=== PATIENT | male | born 1935 | race Caucasian/White ===

== ENCOUNTER 2018-05-22 09:43 | Emergency (ER) | payer MEDICARE, SELFPAY ==
[2018-05-22 09:44] VITALS: BP 144/94; PULSE 68; RESP 20; TEMP 36.5; O2SAT 96; BMI 30.2
[2018-05-22] MEDS: Famotidine 20 MG Tablet 40 MG PO (10:12)
[2018-05-22] MEDS: MethylPREDNISolone 125 MG/2 ML Vial IV (10:12)
[2018-05-22] MEDS: DiphenhydrAMINE 50 MG/ML Syringe 25 MG IV (10:14)
[2018-05-22] MEDS: Triamcinolone Acetonide 40 MG/ML Vial IM (10:15)
--- NOTE | 2018-05-22 10:22 | ED.DCSUM_ITS ---
- ER Visit Summary Date of Service: 05/22/18 Chief Complaint: [] Facial swelling after using acne cream to face for 2 days History of Present Illness: The patient is a 82 M [] presents with facial swelling and eye edema and itching to the head and face for 2 days indicates the other day he used an acne medicine to remove pimple to his forehead the medicine did in fact remove the pimples he developed itching and then edema to his forehead and face, he stopped using the medicine the edema persisted and he came in for evaluation. He used no other medications no other exposures he has had no fever no cough no history of infection MRSA cellulitis, he indicates his face is constantly itching now he has edema to the upper and lower lids bilaterally he has no eye complaints no headache no airway complaints or compromise, he is otherwise been healthy at home with no complaints Physical Examination: [] 144/90 afebrile, General, no distress resting comfortably HEENT has edema to the forehead to the periorbital regions into the cheeks bilaterally he indicates this area is quite itchy there is no signs of infection redness cellulitis MRSA it appears clearly allergic as his lids are swollen, his eyes are normal he has no complaints of eye pain his vision is baseline for him extraocular movements are full, he is able to fully open his eyes and he can see, there is a lot of just puffiness to the eyelids, there is no airway compromise of any kind his oral cavity is unremarkable in this abnormality only involves the areas where he put on this acne ointment The neck is supple no adenopathy Cardiovascular, regular rate and rhythm Lungs, clear bilateral Abdomen, soft nontender Extremities, no clubbing cyanosis or edema Neurologic, awake alert answering questions appropriately moving all 4 extremities Test Results: [] Emergency Department Course and Treatment: [] A long conversation with him and his family with just the case in detail this is the history is as above we discussed obtaining lab test etc. but they deferred that he stated his main concern right now is just itching, at this time will be treated with hydrocortisone 1% ointment to the face he will be given that to go home with given its Thanksgiving, Solu-Medrol, Kenalog IM as a long-acting steroid, Benadryl, he will avoid using this ointment, continue using the Benadryl and Pepcid as needed with hydrocortisone ointment and follow-up with his doctors return for change in symptoms Treatment Plan: [] Disposition: [] Home stable Impression: [] Allergic reaction with facial edema after using acne cream medicine This note was generated with [employer] dictation software. It may contain incorrect words, spelling, and punctuation that were not noted in review of the chart prior to signing ED Disposition - Plan for ED Patient: Chief Complaint: Allergic Reaction
--- NOTE | 2018-05-22 10:22 | ED.DEP ---
ED Disposition - Plan for ED Patient: Chief Complaint: Allergic Reaction Instructions: ED Drug React Allergic, ED Allergic Reaction Local Other Prescriptions: Famotidine [Pepcid] 20 mg PO BID #28 tab Additional Instructions: Continue the Benadryl, use the hydrocortisone 1% to the face twice a day, return for change in symptoms see your doctor in a few days
[2018-05-22 10:45] VITALS: BP 132/92; PULSE 56; RESP 13; TEMP 36.7; O2SAT 96
[2018-05-22] MEDS: Hydrocortisone 2.5% Crm 1 APPLIC TOPICAL (11:16)
== END 2018-05-22 11:26 | disposition home or self-care (01) ==
PROVIDERS: Emergency Provider Emergency Medicine; Family Provider Internal Medicine; PCP Internal Medicine
DX: T50.995A Adverse effect of other drugs, medicaments and biological substances, initial encounter (principal); Y92.89 Other specified places as the place of occurrence of the external cause; R60.0 Localized edema; Y92.9 Unspecified place or not applicable
CPT/HCPCS: 96372; 96374; 96375; 99283; J7030; A4216

== ENCOUNTER 2023-06-21 12:42 | Emergency (ER) | payer MEDICARE, SELFPAY ==
[2023-06-21 12:44] VITALS: BP 163/90; PULSE 87; RESP 18; TEMP 35.9; O2SAT 98; BMI 32.2
--- NOTE | 2023-06-21 13:11 | CT_ITS ---
STUDY: CT BRAIN WITHOUT CONTRAST REASON FOR EXAM: Male, 88 years old. Head injury. RADIATION DOSAGE (If Supplied By Facility): CTDIvol = ( 47.06 ) mGy, DLP = ( 907.97 ) mGycm TECHNIQUE: Transaxial CT imaging of the brain was performed without administration of intravenous contrast material. Individualized dose optimization techniques were used for this CT. COMPARISON: No relevant priors. FINDINGS: Small scalp hematoma overlying the right posterior parieto-occipital bones. Normal calvarium. There is mild cerebral atrophy with widening of the extra-axial spaces and ventricular dilatation. There are areas of decreased attenuation within the white matter tracts of the supratentorial brain, consistent with microvascular disease changes. Normal basal ganglia and thalami. Normal brainstem. Normal cerebellum. There is evidence of an acute subdural hematoma of the cerebellar tentorium as well as the cerebral falx.. There are no findings of an acute ischemic infarction. Atherosclerotic calcification of the cavernous portions of the internal carotid arteries bilaterally. Normal visualized paranasal sinuses. CT/Brain/Head without Contrast IMPRESSION: Chronic involutional changes of the brain. Acute subdural hematoma of the cerebellar tentorium as well as the cerebral falx. Scalp hematoma overlying the right posterior parietal occipital bones. Electronically Signed: Sergei Arita MD at 14:05 EST ,
--- NOTE | 2023-06-21 13:14 | EX.ED.GENINJ ---
HPI History of Present Illness Chief Complaint: Fall Informant: patient Narrative Narrative: 88-year-old male presents to the emergency room chief complaint of head injury. Patient states that he went for a walk outside today. He states that today his legs suddenly got weak and he fell down. He notes that last week his legs also felt weak/unsteady while walking in the same area. States he hit his head on the ground but does not really remember hitting the ground. He notes some tenderness and some blood in the occiput. Unknown last tetanus. He states that earlier this year he was placed on a statin. He states that he had to have the dosage reduced due to muscle aches. About 2 to 3 months ago he had the dosing increased. He wonders if the falls are related to his statin. He denies being on a blood thinner. Tetanus Immunization: Unknown [facility] Medical History (Updated 06/21/23 @ 14:[address] Gordon Hill DO) Hypercholesterolemia Hypertension Home Medications aspirin 81 mg chewable tablet 81 mg PO BID 06/21/23 [History Last Taken 06/21/23] doxazosin 1 mg tablet 1 mg PO DAILY 06/21/23 [History Last Taken 06/20/23] finasteride 5 mg tablet 5 mg PO DAILY 06/21/23 [History Last Taken 06/21/23] lisinopril 20 mg tablet 20 mg PO DAILY 06/21/23 [History Last Taken 06/21/23] melatonin 3 mg capsule 3 mg PO DAILY 06/21/23 [History Last Taken 06/20/23] pravastatin 20 mg tablet 20 mg PO DAILY 06/21/23 [History Last Taken 06/20/23] Allergy/AdvReac Type Severity Reaction Status Date / Time salicylic acid Allergy Swelling Verified 10/17/22 13:45 Social History Smoking Status: Former smoker ROS ROS ED Constitutional Constitutional ED: Denies chills, fever(s) or weight loss Eyes Eyes: Denies change in vision or diplopia ENT ENT ED: Denies ear pain, rhinorrhea or sore throat Cardiovascular Cardiovascular: Denies chest pain, orthopnea, palpitations or racing heartbeat Respiratory/Chest Respiratory/Chest: Denies cough, dyspnea or orthopnea Gastrointestinal Gastrointestinal: Denies abdominal pain, diarrhea, nausea or vomiting Genitourinary Genitourinary ED: Denies dysuria, hematuria or urinary frequency Musculoskeletal Musculoskeletal: Reports arthralgias and myalgias; Denies back pain or neck pain Integumentary Reports Abrasions; Denies abscess or rash Neurologic Neurologic: Reports headache(s); Denies weakness Psychiatric Psychiatric: Denies anxiety, depression, suicidal ideation or suicidal thoughts Endocrine Endocrinology: Denies polydipsia, polyphagia or polyuria Allergic/Immunologic Allergic/Immunologic ED: Denies mouth swelling, tongue swelling or urticaria EXAM Physical Exam Const Vital Signs: 06/21/23 12:44 06/21/23 12:44 06/21/23 14:23 Temperature 96.6 F L Temperature Source Temporal Pulse Rate 87 72 Respiratory Rate 18 18 Respiratory Effort Normal Respiratory Depth Normal Respiratory Pattern Normal Blood Pressure 163/90 H 175/101 H Blood Pressure Mean 114 125 Pulse Ox 98 96 Oxygen Delivery Method Room Air Room Air Room Air 06/21/23 14:38 Temperature Temperature Source Pulse Rate 69 Respiratory Rate 16 Respiratory Effort Respiratory Depth Respiratory Pattern Blood Pressure 160/103 H Blood Pressure Mean 122 Pulse Ox 92 Oxygen Delivery Method Room Air Positive well nourished and well developed General Appearance ED: well developed HEENT Reports normocephalic and moist mucous membranes HEENT Narrative: In the high occipital region is a area of contusion. There is associated skin abrasions. I do not appreciate any laceration. No palpable bony depressions. Eyes PERRL and EOMs intact bilaterally Neck no lymphadenopathy, supple and no JVD Resp normal respiratory effort and clear to auscultation bilaterally Cardio regular rate, regular rhythm and no murmurs GI normal to inspection, nondistended, normoactive bowel sounds and non-tender Palpation: soft Back/Spine no CVA tenderness and normal ROM Extremity normal to inspection General Extremety ED: Negative for edema General Extremity: Negative for edema Neuro oriented x3 and CN's II-XII intact bilaterally Sensorium / Orientation: alert Motor Exam: strength 5/5 throughout Psych mental status grossly normal Mood & Affect: Negative for depressed or tearful Skin no rashes or lesions noted and no wounds MDM MDM MDM Narrative Medical decision making narrative: CT of the brain demonstrates acute bleed along the falx. No significant shift or herniation seen. CT of the cervical spine was negative for fracture. Basic blood work was obtained. The patient was updated. He will need to be transferred to trauma center. The patient sees primary care through [facility]. We have mutually agreed that [facility] is a reasonable choice. He is excepted to the emergency department. We are currently awaiting swab for transportation. He remains hemodynamically and neurologically intact. In fact he has been slightly hypertensive and antihypertensive medications were ordered. History & Record Review Discussion w/independent historian: Patient Lab Data Attestation: I reviewed the patient's lab results. Labs: Laboratory Results - last 24 hr 06/21/23 06/21/23 13:19 13:50 WBC 5.0 RBC 4.99 Hgb 15.0 Hct 45.0 MCV 90.2 MCH 30.1 MCHC 33.3 RDW Std Deviation 41.4 RDW Coeff of Bayron 12.7 Plt Count 109 L MPV 11.0 Immature Gran % (Auto) 0.600 Neut % (Auto) 70.2 H Lymph % (Auto) 14.2 L [place] % (Auto) 14.2 H Eos % (Auto) 0.6 Baso % (Auto) 0.2 Absolute Neuts (auto) 3.5 Absolute Lymphs (auto) 0.71 L Nucleated RBC % 0 PT 14.0 INR 1.1 APTT 25.2 Sodium 142 Potassium 3.5 Chloride 111 H Carbon Dioxide 25.0 Anion Gap 6 BUN 33 H Creatinine 0.81 Estim Creat Clear Calc 70.52 Est GFR (MDRD) Af Amer 115 Est GFR (MDRD) Non-Af 95 BUN/Creatinine Ratio 40.6 H Glucose 115 H Calcium 8.6 Total Bilirubin 0.90 AST 18 ALT 20 Alkaline Phosphatase 69 Total Creatine Kinase 75 Total Protein 6.1 L Albumin 3.3 Globulin 2.8 Albumin/Globulin Ratio 1.2 Radiography Diagnostic Testing: Clinical Impression(s) from Imaging Studies Brain CT 06/21/23 13:11 IMPRESSION: Chronic involutional changes of the brain. Acute subdural hematoma of the cerebellar tentorium as well as the cerebral falx. Scalp hematoma overlying the right posterior parietal occipital bones. Electronically Signed: Sergei Arita MD at 14:05 EST , Cervical Spine CT 06/21/23 13:40 IMPRESSION: Multilevel degenerative changes, as described above. Electronically Signed: Sergei Arita MD at 14:16 EST , Management Discussion w/another healthcare provider: Other ([facility] emergency department Dr. Dumont) Critical Care Time Critical Care Time: Yes Critical care time (excluding procedures): 30-74 minutes (34 min), Including time spent:, Discussing w/Patient &/or Family/Cyber Policy And Strategy Planner, Discussing w/Consultants, Arranging Admission or Transfer and Performing Direct Patient Care at Bedside Discharge Plan Triage Chief Complaint: Fall ED Provider: Gordon Hill Dx/Rx/DC Orders Clinical Impression: Contusion of scalp, Fall, Traumatic intracranial subdural hematoma Prescriptions: No Action doxazosin 1 mg tablet 1 mg PO DAILY finasteride 5 mg tablet 5 mg PO DAILY lisinopril 20 mg tablet 20 mg PO DAILY pravastatin 20 mg tablet 20 mg PO DAILY aspirin 81 mg tablet,chewable 81 mg PO BID melatonin 3 mg capsule 3 mg PO DAILY Primary Care Provider: aVdim Deras Referrals: Vadim Deras MD [Primary Care Provider] - Disposition Disposition: Acute Care Hospital Discharge Location: [facility]
[2023-06-21 13:33] LABS: Absolute Lymphocyte Count 0.71 X10^3/uL (0.83-4.51); Absolute Neutrophil Count 3.5 X10^3/uL (2.0-7.7); Basophil# 0.01 X10^3/uL; Basophil% 0.2 % (0-1); Eosinophil# 0.03 X10^3/uL; Eosinophils% 0.6 % (0-5); Lymphocyte # 0.71 X10^3/ul (0.83-4.51); Lymphocyte % 14.2 % (19-41); Mean Corp Hgb Conc 33.3 g/dL (32-36); Mean Corpuscular Hgb 30.1 pg (27.0-32.0); Mean Corpuscular Volume 90.2 fL (80-94); Monocyte# 0.71 X10^3/uL; Monocyte% 14.2 % (0-10); NRBC Flagged by Analyzer 0 % (0-5); Neutrophil # 3.52 X10^3/uL (2.7-7.7); Neutrophil % 70.2 % (47-70); Platelet Count 109 K/mm3 (150-450); RBC Distribution Width CV 12.7 % (11.6-14.6); RBC Distribution Width SD 41.4 fl (35.1-43.9); Red Blood Count 4.99 M/mm3 (4.6-6.2)
--- NOTE | 2023-06-21 13:40 | CT_ITS ---
STUDY: CT CERVICAL SPINE WITHOUT CONTRAST REASON FOR EXAM: Male, 88 years old. Trauma RADIATION DOSAGE (If Supplied By Facility): CTDIvol = ( 26.09 ) mGy, DLP = ( 623.86 ) mGycm TECHNIQUE: High resolution transaxial imaging was performed without contrast material. Sagittal and coronal images were reconstructed. Individualized dose optimization techniques were used for this CT. COMPARISON: None FINDINGS: Normal craniovertebral junction. There are degenerative changes of the anterior atlantoaxial articulation. Normal odontoid process. Normal cervical lordosis. Multilevel spondylosis. C2-3: Normal endplates. Normal disc height and morphology. Normal central canal and intervertebral neuroforamina. C3-4: Marked degree of disc space narrowing. Facet joint osteoarthritis and hypertrophy on the left side. Uncovertebral arthrosis. Moderate degree of left neural foraminal stenosis. C4-5: Marked degree of disc space narrowing. Spondylosis. Uncovertebral arthrosis. Bilateral neural foraminal stenosis. C5-6: Marked degree of disc space narrowing. Uncovertebral arthrosis. Bilateral neural foraminal stenosis. C6-7: Moderate degree of disc space narrowing. C7-T1: Normal endplates. Normal disc height and morphology. Normal central canal and intervertebral neuroforamina. The patient is known to have a subdural of the cerebellar tentorium. CT/Spine Cervical without Contras IMPRESSION: Multilevel degenerative changes, as described above. Electronically Signed: Sergei Arita MD at 14:16 EST ,
[2023-06-21 13:42] LABS: ALB/GLOB Ratio 1.2 RATIO (0.9-2.4); AST(SGOT) 18 U/L (15-37); Alanine Aminotransfer ALT/SGPT 20 U/L (16-61); Albumin, Serum 3.3 g/dL (3.2-5.0); Alkaline Phosphatase 69 U/L (45-117); Anion Gap 6 (5-15); BUN 33 mg/dL (7-18); BUN/Creat Ratio 40.6 RATIO (10-20); CPK Total, Creatine Kinase 75 U/L (39-308); Calcium,Total 8.6 mg/dL (8.5-10.1); Chloride 111 mmol/L (98-107); Creatinine, Serum 0.81 mg/dL (0.70-1.30); EST Glomerular Filtration Rate 95 mL/min (>60); Est Glom Filt Rate - Afr Amer 115 mL/min (>60); Estimated Creatinine Clearance 70.52 ml/min; Globulin 2.8 g/dL (2.2-4.2); Glucose 115 mg/dL (74-106); Potassium 3.5 mmol/L (3.5-5.1); Protein, Total 6.1 g/dL (6.4-8.2); Sodium Level 142 mmol/L (136-145)
[2023-06-21] MEDS: Diphth,Pertuss(Acell),Tet Vac 0.5 ML Vial IM (14:08)
[2023-06-21 14:14] LABS: International Normalized Ratio 1.1
[2023-06-21 14:16] LABS: Partial Thromboplast Time 25.2 Seconds (24.1-36.2)
[2023-06-21 14:23] VITALS: BP 175/101; PULSE 72; RESP 18; O2SAT 96
[2023-06-21] MEDS: Labetalol (Prefilled) 20 MG/4 ML IV ×2 (14:34→14:48)
[2023-06-21 14:38] VITALS: BP 160/103; PULSE 69; RESP 16; O2SAT 92
[2023-06-21 14:42] VITALS: BP 160/93; PULSE 68; RESP 18; O2SAT 95
[2023-06-21 14:53] VITALS: BP 150/101; PULSE 72; RESP 16; O2SAT 95
--- NOTE | 2023-06-21 14:59 | NURSING ---
Report called to RN at [facility]
[2023-06-21 15:03] VITALS: BP 150/101; PULSE 72; RESP 16; O2SAT 95
== END 2023-06-21 15:09 | disposition short-term general hospital (02) ==
PROVIDERS: Emergency Provider Emergency Medicine; PCP Internal Medicine; Visit Provider Emergency Medicine
DX: S06.5X0A Traumatic subdural hemorrhage without loss of consciousness, initial encounter (principal); Z87.891 Personal history of nicotine dependence; S00.03XA Contusion of scalp, initial encounter; E78.00 Pure hypercholesterolemia, unspecified; I10 Essential (primary) hypertension; Z79.82 Long term (current) use of aspirin; W19.XXXA Unspecified fall, initial encounter; Z23 Encounter for immunization
CPT/HCPCS: 70450; 72125; 80053; 82550; 85025; 85610; 85730; 90715; 99284; A4216

== ENCOUNTER 2023-06-27 18:19 | Inpatient (IN) | payer MEDICARE, SELFPAY ==
--- OUTSIDE RECORDS SUMMARY | 2023-06-27 18:33 | XMS RPT_ITS | CCD ---
Author Name Unknown Address [address] [place] [address] Organization [facility] Care Team Providers Care Food Dehydrator Operator Name Role Phone Silvia RICH, Vadim Barcenas Primary Care Provider [phone] VADIM VEGA Attending Unavailable SILVIA, VADIM Barcenas Primary Care Unavailable SILVIA, VADIM Barcenas Referring Unavailable VEGA, VADIM Barcenas Primary Care Unavailable VEGA, VADIM Barcenas Referring Unavailable VEGA, VADIM Barcenas Primary Care Unavailable SILVIA, VADIM Barcenas Primary Care Unavailable SILVIA, VADIM Barcenas Primary Care Unavailable LUANN BRANCH Attending Unavailable SILVIA, VADIM Barcenas Referring Unavailable VEGA, VADIM Barcenas Primary Care Unavailable VADIM VEGA Attending Unavailable SILVIA, VADIM Barcenas Primary Care Unavailable SILVIA, VADIM Barcenas Referring Unavailable SILVIA, VADIM Barcenas Primary Care Unavailable SU WARE Attending Unavailable SILVIA, VADIM Barcenas Primary Care Unavailable VEGA, VADIM Barcenas Primary Care Unavailable DORIAN VERNON Attending Unavailable SILVIA, VADIM Barcenas Primary Care Unavailable DORIAN VERNON Attending Unavailable SILVIA, VADIM Barcenas Referring Unavailable SILVIA, VADIM Barcenas Primary Care Unavailable Silvia RICH, Vadim Barcenas Primary Care Provider [phone] BAUTISTA SORIA Attending Unavailable JIMMY DENTON Admitting Unavailable SILVIA, VADIM Barcenas Primary Care Unavailable SU WARE Attending Unavailable SU WARE Admitting Unavailable VADIM VEGA Primary Care Unavailable Allergies Allergy Classification Reported Allergen(s) Allergy Type Date of Onset Reaction(s) Facility (18 sources) Clearasil Maximum Strength; Translations: [CLEARASIL MAXIMUM STRENGTH] Drug Intolerance 9 Swelling [facility] Work Phone: Medications Current Medications Medication Drug Class(es) Dates Sig (Normalized) Sig (Original) doxycycline monohydrate 100 mg oral tablet (1 source) Tetracycline-clas s Drug Start: 03-05-2022 End: 03-10-2022 take 1 tablet by mouth twice daily doxycycline monohydrate 100 mg tablet Take 1 tablet by mouth twice daily for 5 days. 10 tablet 0 03/05/2022 03/10/2022 Active Completed/Discontinued Medications Medication Drug Class(es) Dates Sig (Normalized) Sig (Original) doxazosin 1 mg oral tablet (20 sources) alpha-Adrenergic [facility] Start: 01-28-2023 take 1 tablet by mouth once daily doxazosin (CARDURA) 1 mg tablet Indications: Benign prostatic hyperplasia with urinary obstruction Take 1 tablet by mouth once daily. 90 tablet 3 01/28/2023 Active Problems Active Problems Problem Classification Problem Date Documented Date Episodic/Chronic Coagulation and hemorrhagic disorders (19 sources) Platelet count below reference range; Translations: [Thrombocytopenia, unspecified] Onset: 2017 2017 Chronic Complications of surgical procedures or medical care (1 source) Surgical wound finding; Translations: [Disruption of wound, unspecified, initial encounter] Episodic Disorders of lipid metabolism (20 sources) Hyperlipidemia; Translations: [Hyperlipidemia, unspecified] Onset: 08-28-2005 07-10-2018 Chronic Diverticulosis and diverticulitis (16 sources) Diverticulosis of large intestine; Translations: [Diverticulosis of large intestine without perforation or abscess without bleeding] 07-12-2016 Chronic Essential hypertension (20 sources) Essential hypertension; Translations: [Essential (primary) hypertension] Onset: 02-22-2006 06-29-2015 Chronic Hyperplasia of prostate (20 sources) Benign prostatic hypertrophy with outflow obstruction; Translations: [Benign prostatic hyperplasia with lower urinary tract symptoms] Onset: 07-05-2010 01-10-2017 Chronic Immunizations and screening for infectious disease (2 sources) Vaccination needed; Translations: [Encounter for immunization] Episodic Other aftercare (1 source) History of repair of umbilical hernia; Translations: [Encounter for follow-up examination after completed treatment for conditions other than malignant neoplasm] Episodic Other connective tissue disease (1 source) Muscle pain; Translations: [Myalgia, unspecified site] Episodic Other diseases of bladder and urethra (2 sources) Overactive bladder; Translations: [Overactive bladder] Chronic Other eye disorders (1 source) Disorder of eye; Translations: [Unspecified disorder of eye and adnexa] Episodic Other male genital disorders (19 sources) Male erectile dysfunction, unspecified; Translations: [Impotence of organic origin] Onset: 01-16-2018 01-16-2018 Chronic Other nutritional; endocrine; and metabolic disorders (16 sources) Obese class II; Translations: [Obesity, unspecified] Onset: 07-28-2020 07-28-2020 Chronic Other nutritional; endocrine; and metabolic disorders (1 source) Hypoalbuminemia; Translations: [Other disorders of plasma-protein metabolism, not elsewhere classified] 02-15-2023 Chronic Other nutritional; endocrine; and metabolic disorders (1 source) Other disorders of plasma-protein metabolism, not elsewhere classified; Translations: [Hypoalbuminemia] Onset: 02-15-2023 Chronic Other upper respiratory disease (16 sources) Chronic rhinitis; Translations: [Chronic rhinitis] Onset: 07-12-2016 07-12-2016 Chronic Residual codes; unclassified (1 source) History of hernia repair; Translations: [Other specified postprocedural states] 02-28-2023 Episodic Skin and subcutaneous tissue infections (1 source) Infection of skin; Translations: [Local infection of the skin and subcutaneous tissue, unspecified] Episodic Unclassified (1 source) SDH (subdural hematoma) (HCC); Translations: [SDH (subdural hematoma) (HCC)] Onset: 06-21-2023 Past or Other Problems Problem Classification Problem Date Documented Da te Episodic/Chronic Abdominal hernia (2 sources) Recurrent umbilical hernia; Translations: [Umbilical hernia without obstruction or gangrene] Onset: 02-21-2023 01-25-2023 Episodic Genitourinary symptoms and ill-defined conditions (16 sources) Urgent desire to urinate; Translations: [Urgency of urination] Onset: 07-28-2020 07-28-2020 Episodic Other diseases of kidney and ureters (1 source) Other obstructive and reflux uropathy; Translations: [Benign prostatic hyperplasia with urinary obstruction] Onset: 01-10-2017 Episodic Results Test Name Value Interpretation Reference Range Facil ity Vital Signs Date Time Vital Sign Value Performing Clinician Faci lity 02-28-2023 14:20-0400 Body temperature 98.1 [degF] Luann Jose Carlos PA-C Work Phone: [facility] 02-28-2023 14:20-0400 Diastolic blood pressure 84 mm[Hg] Luann Jose Carlos PA-C Work Phone: [facility] 02-28-2023 14:20-0400 Heart rate 84 /min Luann [place]keville PA-C Work Phone: [facility] 02-28-2023 14:20-0400 SaO2% (BldA) [Mass fraction] 95 % Luann Jose Carlos PA-C Work Phone: [facility] 02-28-2023 14:20-0400 Systolic blood pressure 136 mm[Hg] Luann Jose Carlos PA-C Work Phone: [facility] 02-15-2023 08:08-0400 Body weight 97.07 kg Vadim Vega MD Work Phone: [facility] 02-15-2023 08:08-0400 Diastolic blood pressure 82 mm[Hg] Vadim Vega MD Work Phone: [facility] 02-15-2023 08:08-0400 Heart rate 85 /min Vadim Vega MD Work Phone: [facility] 02-15-2023 08:08-0400 Respiratory rate 16 /min Vadim Vega MD Work Phone: [facility] 02-15-2023 08:08-0400 SaO2% (BldA) [Mass fraction] 96 % Vadim Vega MD Work Phone: [facility] 02-15-2023 08:08-0400 Systolic blood pressure 128 mm[Hg] Vadim Vega MD Work Phone: [facility] 01-25-2023 14:58-0400 Body height 182.9 cm Su Ware MD Work Phone: [facility] 01-25-2023 14:58-0400 Body temperature 98.01 [degF] Su Ware MD Work Phone: [facility] 01-25-2023 14:58-0400 Body weight 99.07 kg Su Ware MD Work Phone: [facility] 01-25-2023 14:58-0400 Diastolic blood pressure 80 mm[Hg] Su Ware MD Work Phone: [facility] 01-25-2023 14:58-0400 Heart rate 91 /min Su Ware MD Work Phone: [facility] 01-25-2023 14:58-0400 SaO2% (BldA) [Mass fraction] 96 % Su Ware MD Work Phone: [facility] 01-25-2023 14:58-0400 Systolic blood pressure 132 mm[Hg] Su Ware MD Work Phone: [facility] 01-04-2023 08:10-0400 Body height 182.9 cm Dorian Vernon PA-C Work Phone: [facility] 01-04-2023 08:10-0400 Body temperature 97.81 [degF] Dorian Vernon PA-C Work Phone: [facility] 01-04-2023 08:10-0400 Body weight 98.88 kg Dorian Vernon PA-C Work Phone: [facility] 01-04-2023 08:10-0400 Diastolic blood pressure 88 mm[Hg] Dorian Vernon PA-C Work Phone: [facility] 01-04-2023 08:10-0400 Heart rate 80 /min Dorian Vernon PA-C Work Phone: [facility] 01-04-2023 08:10-0400 Respiratory rate 12 /min Dorian Vernon PA-C Work Phone: [facility] 01-04-2023 08:10-0400 SaO2% (BldA) [Mass fraction] 95 % Dorian Vernon PA-C Work Phone: [facility] 01-04-2023 08:10-0400 Systolic blood pressure 138 mm[Hg] Dorain Vernon PA-C Work Phone: [facility] 09-25-2022 13:26-0400 Body temperature 98.01 [degF] Hyun Moriah [employer].ELASTIC ATTACHER [employer] Work Phone: [facility] 09-25-2022 13:26-0400 Body weight 100.25 kg Hyun Moriah [employer].ELASTIC ATTACHER [employer] Work Phone: [facility] 09-25-2022 13:26-0400 Diastolic blood pressure 84 mm[Hg] Hyun Moriah [employer]EEK [employer] AUT[employer]CH.ELASTIC ATTACHER [employer] Work Phone: [facility] 09-25-2022 13:26-0400 Heart rate 88 /min Hyun Moriah [employer].ELASTIC ATTACHER [employer] Work Phone: [facility] 09-25-2022 13:26-0400 Respiratory rate 18 /min Hyun Moriah [employer].ELASTIC ATTACHER [employer] Work Phone: [facility] 09-25-2022 13:26-0400 SaO2% (BldA) [Mass fraction] 96 % Hyun Moriah [employer].ELASTIC ATTACHER [employer] Work Phone: [facility] 09-25-2022 13:26-0400 Systolic blood pressure 128 mm[Hg] Hyun Moriah [employer].ELASTIC ATTACHER [employer] Work Phone: [facility] 08-31-2022 08:13-0500 Body height 182.9 cm Dorian Vernon PA-C Work Phone: [facility] 08-31-2022 08:13-0500 Body temperature 98.49 [degF] Dorian Vernon PA-C Work Phone: [facility] 08-31-2022 08:13-0500 Body weight 98.88 kg Dorian Vernon PA-C Work Phone: [facility] 08-31-2022 08:13-0500 Diastolic blood pressure 90 mm[Hg] Dorian Vernon PA-C Work Phone: [facility] 08-31-2022 08:13-0500 Heart rate 80 /min Dorian Vernon PA-C Work Phone: [facility] 08-31-2022 08:13-0500 Respiratory rate 14 /min Dorian Vernon PA-C Work Phone: [facility] 08-31-2022 08:13-0500 SaO2% (BldA) [Mass fraction] 95 % Dorian Vernon PA-C Work Phone: [facility] 08-31-2022 08:13-0500 Systolic blood pressure 134 mm[Hg] Dorian Noeloney PA-C Work Phone: [facility] 08-16-2022 08:08-0500 Body height 182.9 cm Vadim Vega MD Work Phone: [facility] 08-16-2022 08:08-0500 Body temperature 97.2 [degF] Vadim Vega MD Work Phone: [facility] 08-16-2022 08:08-0500 Body weight 97.52 kg Vadim Vega MD Work Phone: [facility] 08-16-2022 08:08-0500 Diastolic blood pressure 72 mm[Hg] Vadim Vega MD Work Phone: [facility] 08-16-2022 08:08-0500 Heart rate 72 /min Vadim Vega MD Work Phone: [facility] 08-16-2022 08:08-0500 Respiratory rate 12 /min Vadim Vega MD Work Phone: [facility] 08-16-2022 08:08-0500 Systolic blood pressure 118 mm[Hg] Vadim Vega MD Work Phone: [facility] 05-04-2022 08:28-0400 Body temperature 97.59 [degF] Susan Athy PA-C Work Phone: [facility] 05-04-2022 08:28-0400 Body weight 96.89 kg Susan Athy PA-C Work Phone: [facility] 05-04-2022 08:28-0400 Diastolic blood pressure 78 mm[Hg] Susan Athy PA-C Work Phone: [facility] 05-04-2022 08:28-0400 Heart rate 72 /min Susan Athy PA-C Work Phone: [facility] 05-04-2022 08:28-0400 Respiratory rate 16 /min Susan Athy PA-C Work Phone: [facility] 05-04-2022 08:28-0400 SaO2% (BldA) [Mass fraction] 98 % Susan Athy PA-C Work Phone: [facility] 05-04-2022 08:28-0400 Systolic blood pressure 126 mm[Hg] Susan Athy PA-C Work Phone: [facility] 03-05-2022 09:25-0400 Body temperature 97.2 [degF] Haylie Chin APRN.ELASTIC ATTACHER [employer] Work Phone: [facility] 03-05-2022 09:25-0400 Body weight 97.7 kg Haylie Chin APRN.ELASTIC ATTACHER [employer] Work Phone: [facility] 03-05-2022 09:25-0400 Diastolic blood pressure 90 mm[Hg] Haylie Chin APRN.ELASTIC ATTACHER [employer] Work Phone: [facility] 03-05-2022 09:25-0400 Heart rate 92 /min Haylie Chin APRN.ELASTIC ATTACHER [employer] Work Phone: [facility] 03-05-2022 09:25-0400 Respiratory rate 18 /min Haylie Chin APRN.ELASTIC ATTACHER [employer]ITCH Work Phone: [facility] 03-05-2022 09:25-0400 SaO2% (BldA) [Mass fraction] 94 % Haylie Chin APRN.ELASTIC ATTACHER [employer] Work Phone: [facility] 03-05-2022 09:25-0400 Systolic blood pressure 132 mm[Hg] Haylie Chin APRN.ELASTIC ATTACHER [employer] Work Phone: [facility] 02-08-2022 08:55-0400 Body temperature 97 [degF] Vadim Vega MD Work Phone: [facility] 02-08-2022 08:55-0400 Body weight 94.98 kg Vadim Vega MD Work Phone: [facility] 02-08-2022 08:55-0400 Diastolic blood pressure 68 mm[Hg] Vadim Vega MD Work Phone: [facility] 02-08-2022 08:55-0400 Heart rate 68 /min Vadim Vega MD Work Phone: [facility] 02-08-2022 08:55-0400 Respiratory rate 16 /min Vadim Vega MD Work Phone: [facility] 02-08-2022 08:55-0400 Systolic blood pressure 114 mm[Hg] Vadim Vega MD Work Phone: [facility] 12-25-2021 14:35-0400 Body height 182.9 cm Su Ware MD Work Phone: [facility] 12-25-2021 14:35-0400 Body temperature 98.29 [degF] Su Ware MD Work Phone: [facility] 12-25-2021 14:35-0400 Body weight 96.62 kg Su Ware MD Work Phone: [facility] 12-25-2021 14:35-0400 Diastolic blood pressure 58 mm[Hg] Su Ware MD Work Phone: [facility] 12-25-2021 14:35-0400 Heart rate 91 /min Su Ware MD Work Phone: [facility] 12-25-2021 14:35-0400 SaO2% (BldA) [Mass fraction] 94 % Su Ware MD Work Phone: [facility] 12-25-2021 14:35-0400 Systolic blood pressure 106 mm[Hg] Su Ware MD Work Phone: [facility] 09-29-2021 13:02-0400 Body height 182.9 cm Su Ware MD Work Phone: [facility] 09-29-2021 13:02-0400 Body temperature 98.29 [degF] Su Ware MD Work Phone: [facility] 09-29-2021 13:02-0400 Body weight 97.52 kg Su Ware MD Work Phone: [facility] 09-29-2021 13:02-0400 Diastolic blood pressure 68 mm[Hg] Su Ware MD Work Phone: [facility] 09-29-2021 13:02-0400 Heart rate 81 /min Su Ware MD Work Phone: [facility] 09-29-2021 13:02-0400 SaO2% (BldA) [Mass fraction] 96 % Su Ware MD Work Phone: [facility] 09-29-2021 13:02-0400 Systolic blood pressure 136 mm[Hg] Su Ware MD Work Phone: [facility] Encounters Encounter Date Encounter Type Care Provider Facility Start: 06-21-2023 Evaluation and management of inpatient BATUISTA SORIA Facility:[facility] Start: 04-01-2023 Refill Vadim grubre MD Work Phone: [facility] Procedures Date Procedure Procedure Detail Performing Clinician Start: 06-21-2023 Antibody screen LAMONT SORIA Plan of Treatment Date Care Activity Detail Author Start: 02-08-2026 DIABETES SCREEN DIABETES SCREEN [facility] Start: 02-08-2026 Diabetes Screening Diabetes Screenin g [facility] Start: 08-09-2025 DIABETES SCREEN DIABETES SCREEN [facility] Start: 02-01-2025 DIABETES SCREEN DIABETES SCREEN [facility] Start: 08-07-2024 DIABETES SCREEN DIABETES SCREEN [facility] Start: 01-16-2024 Urine microalbumin profile [facility] Immunizations Immunization Date Immunization Notes Care Provider Pratibha finley 03-25-2023 influenza (aIIV4) vaccine, age 65+ yr, quadrivalent, PF (FLUAD QUAD) Vadim Vega MD Work Phone: [facility] 12-21-2022 COVID-19 vaccine, ag e 12+ yr, bivalent (PFIZER-BIONTECH) Dorian Vernon PA-C Work Phone: [facility] Work Phone: 03-27-2022 influenza, high dose seasonal, preservative-free Vadim Vega MD Work Phone: [facility] Work Phone: 03-12-2022 COVID-19 booster vaccine, age 12+ yr, bivalent (PFIZER-BIONTECH) Susan Corado PA-C Work Phone: [facility] Work Phone: 02-08-2022 pneumococcal (PCV20) vaccine, 20 valent (PREVNAR 20) Vadim Vega MD Work Phone: [facility] Work Phone: 02-08-2022 pneumococcal Conjugate, unspecified formulation Vadim Vega MD Work Phone: [facility] Work Phone: 03-17-2021 influenza, high-dose , quadrivalent vaccine (FLUZONE HIGH DOSE QUADRIVALENT) Su Ware MD Work Phone: [facility] Work Phone: 07-07-2020 COVID-19 vaccine, ag e 12+ yr (PFIZER-BIONTECH - PURPLE TOP) Su Ware MD Work Phone: [facility] Work Phone: 03-30-2020 influenza, high dose seasonal, preservative-free Su Ware MD Work Phone: [facility] Work Phone: 03-30-2019 influenza, high dose seasonal, preservative-free Su Ware MD Work Phone: [facility] Work Phone: 03-23-2018 influenza, high dose seasonal, preservative-free Su Ware MD Work Phone: [facility] Work Phone: 10-05-2017 influenza, injectabl e, quadrivalent, contains preservative Su Ware MD Work Phone: [facility] Work Phone: 04-04-2016 influenza, seasonal, injectable Su Ware MD Work Phone: [facility] 04-14-2015 influenza, high dose seasonal, preservative-free Su Ware MD Work Phone: [facility] 01-13-2015 pneumococcal conjuga te vaccine, 13 valent Su Ware MD Work Phone: [facility] 04-13-2014 influenza, seasonal, injectable Su Ware MD Work Phone: [facility] Work Phone: 03-31-2013 influenza virus vaccine, unspecified formulation Su Ware MD Work Phone: [facility] 06-19-2012 zoster vaccine, live Su child MD Work Phone: [facility] 03-31-2012 influenza virus vaccine, unspecified formulation Su Ware MD Work Phone: [facility] 06-29-2009 novel [id number], preservative-free, injectable Su Ware MD Work Phone: [facility] Work Phone: 08-22-2007 tetanus and diphther ia toxoids, adsorbed, preservative free, for adult use (2 Lf of tetanus toxoid and 2 Lf of diphtheria toxoid) Su Ware MD Work Phone: [facility] Work Phone: Payers Date Payer Category Payer Medicare HU[employer]NA MEDICARE HU[employer]NA MEDICARE PPO [id number] 2021-Present [phone] [address] [place], [place] [id number] PPO [id number] 2021 Medicare HU[employer]NA MEDICARE HU[employer]NA MEDICARE PPO [id number] 2021-Present [phone] [address] [address] [place] [address] PPO [id number] 2021 Medicare [id number] Social History Date Type Detail Facility Start: 02-08-2022 End: 01-04-2023 Tobacco smoking status NHIS Ex-smoker [facility] History of tobacco use Cigarette Smoker C [facility] History of tobacco use Pipe Smoker [facility]: 07-01-1993 History of tobacco use User of smokeless tobacco [facility] Start: 09-29-2021 End: 02-28-2023 Alcohol intake Current drinker of alcohol (finding) [facility] Start: 09-29-2021 End: 01-25-2023 Alcohol intake [facility] Work Phone: Start: 08-11-2021 End: 08-16-2022 History SDOH Alcohol Frequency 3 [facility] Start: 08-11-2021 End: 08-16-2022 History SDOH Alcohol Std Drinks 1 [facility] Start: 07-28-2020 History SDOH Alcohol Comment or less. [facility] Start: 08-11-2021 End: 08-16-2022 History SDOH Social Connections Phone 5 [facility] Start: 08-11-2021 End: 08-16-2022 History SDOH Social Connections Living 7 [facility] Start: 08-11-2021 End: 08-16-2022 History SDOH Physical Activity DPW 2 [facility] Start: 08-11-2021 End: 08-16-2022 History SDOH Financial 4 [facility] Start: 1935 Sex Assigned At Not on file C [facility] Start: 09-19-2021 End: 02-08-2022 Exposure to SARS-CoV-2 (event) Not sure [facility] History of tobacco use Current smoker [facility] Work Phone: Start: 02-08-2022 Tobacco use and exposure Forme r smokeless tobacco user [facility] Work Phone: Start: 02-08-2022 Tobacco Comment Quit 1993 (cig x 5 years and pipe x 20 years) [facility] Start: 04-24-2022 End: 05-04-2022 Exposure to SARS-CoV-2 (event) Yes [facility] Start: 01-04-2023 Tobacco use and exposure Smoke less tobacco non-user [facility] Start: 08-16-2022 End: 01-25-2023 Social connection and isolation panel [facility] Work Phone: Are you now , , , , never or living with a partner? Never [facility] Work Phone: How often to you hav e a drink containing alcohol? 2-4 times a month [facility] Work Phone: How many standard dr inks containing alcohol do you have on a typical day? 1 or 2 [facility] Work Phone: How often do you hav e 6 or more drinks on 1 occasion? Never [facility] Work Phone: How hard is it for y ou to pay for the very basics like food, housing, medical care, and heating Not very hard [facility] Work Phone: Adult Depression Screening Assessment 0 [facility] Work Phone: Do you feel stress - tense, restless, nervous, or anxious, or unable to sleep at night because your mind is troubled all the time - these days [OSQ] Not at all [facility] Work Phone: Clinical Notes 08-22-2007 to 06-26-2023 Telephone Encounter - Ilana Burr RN - 04/01/2023 10:42 AM EDTPatient Luann De La Garza PA-C - 02/28/2023 2:29 PM Vadim Ty MD - 02/15/2023 8:33 AM EDTPatient Instructions Note Date & Type Note Facility 06-26-2023 Note HNO ID: [id number] Author: Michelle Andino APRN.ELASTIC ATTACHER [employer] Service: General Surgery Author Type: Nurse Practitioner Type: Progress Notes Filed: 06/26/2023 8:31 AM Note Text: Trauma Surgery Progress Note SERVICE DATE: 06/26/2023 Trauma Service Pager: For questions or concerns Mon-Sat 6a-5p please page [phone]. After 5pm and on Weekends and Holidays, please page [phone] if in ICU or [phone] if on RNF. SUBJECTIVE: No acute overnight events. Patient inquiring when he will be discharged to SNF. Discussed that care management is actively working on his case and the he requires pre-cert. On assessment, patient alert and oriented x 3, DEY. No focal deficits. Denies headache, dizziness, lightheadedness, pain/discomfort. OBJECTIVE: Vitals: Temp (24hrs), Av.7 ?C (98 ?F), Min:36.4 ?C (97.5 ?F), Max:37 ?C (98.6 ?F) BP 171/101 Pulse 68 Temp 36.7 ?C (98.1 ?F) (Oral) Resp 16 Ht 182.9 cm (6' 0.01 ) Wt 96.3 kg (212 lb 4.9 oz) SpO2 92% BMI 28.79 kg/m? O2 Therapy: Room Air IANDO: Date 06/25/23 07 - 06/26/23 0659 06/26/23699 - 06/27/23 0659 Shift [id number] 7348-5165 5130-0777 24 Hour Total 0175-4263 1585-0209 5284-6756 24 Hour Total INTAKE PO 320 320 PO 320 320 Shift Total 320 320 OUTPUT Urine 275 50 175 500 Void (ml) 275 50 175 500 Urine Incontinence/Not Saved 1 x 2 x 1 x 4 x Urine Not Saved. 2 x 2 x # of BMs Number of BMs 1 x 1 x Shift Total 275 50 175 500 Weight (kg) 98.3 98.3 96.3 96.3 96.3 96.3 96.3 96.3 MEDICATIONS: Current Facility-Administered Medications Medication Dose Route Frequency doxazosin 1 mg tab(s) (CARDURA) 1 mg ORAL DAILY lisinopril 20 mg tab(s) (ZESTRIL) 20 mg ORAL DAILY finasteride 5 mg tab(s) (PROSCAR) 5 mg ORAL DAILY heparin 5,000 Units injection 5,000 Units SUBCUTANEOUS q 8 H calcium-cholecalciferol (D3) 2 tablet tab(s) (OSCAL+D 250) 2 tablet ORAL BID senna 17.2 mg tab(s) (SENOKOT) 17.2 mg ORAL AT BEDTIME oxyCODONE IR 5 mg tab(s) (ROXICODONE) 5 mg ORAL q 6 H PRN NaCl 0.9% iv flush bag 20 mL INTRAVENOUS PRN levETIRAcetam 500 mg tab(s) (KEPPRA) 500 mg ORAL BID pravastatin 20 mg tab(s) (PRAVACHOL) 20 mg ORAL AT BEDTIME acetaminophen 1,000 mg tab(s) (TYLENOL) 1,000 mg ORAL/FEEDING TUBE q 6 H Labs: Recent Labs 06/26/23 0222 06/25/23 0149 NA 140 141 K 3.9 3.6* CHLOR 107* 106* CO2 25 26 BUN 28* 30* CREAT 0.98 0.95 GLUC 86 84 ANION 8* 9 CA 9.2 9.2 WBC 4.95 6.73 HB 13.4 14.5 HCT 39.3 43.2 PLT 108* 109* PHYSICAL EXAM: Genl: Appears age appropriate. No acute distress. Resting comfortably. Head/Face: Normocephalic. Atraumatic Eyes: EOMI. PERRLA. Sclera not icteric, not injected Resp: Lungs CTAB. No wheezes, rales or rhonchi. Respiratory status stable on RA. CVS: RRR as above. 2+ RA, DP, PT pulses bilaterally. GI: Abdomen is soft, non-tender, non-distended. No guarding or peritoneal signs. MSK: No gross deformities. No clubbing, cyanosis or edema. Normal AROM x 4. LLE in JILL with walker boot in place. Skin: Warm and dry. Not jaundiced. Neuro: AANDOx3. Strength and sensation grossly intact in all extremities. DEY. GCS15. Psych: Normal mood. Normal affect. Appropriate insight into current situation. ASSESSMENT AND PLAN: Assessment Active Hospital Problems Diagnosis Date Noted Subdural hematoma (HCC) 06/21/2023 Closed fracture of left ankle 06/23/2023 Fall 06/22/2023 Thrombocytopenia, unspecified (HCC) 2017 Essential hypertension 02/22/2006 Assessment: 88-year old male s/p GLF on ASA on 06/21/2023 Imaging performed: 06/21/2023 - CT HN, CXR, PXR, repeat CTH, XR L ankle 06/22/2023 - repeat CTH, XR L ankle 06/23/2023 - XR L ankle, repeat CTH Traumatic Injuries: Left parafalcine and tentorial SDH Left ankle fracture with syndesmotic instability Operations/Procedures: 1. 06/23/2023 - ORIF left bimalleolar ankle fracture; open reduction fixation left syndesmosis Care Plan: SDH Neurosurgery consulted (signed-off) DDAVP administered for ASA reversal upon arrival to ED Repeat CT Brain 06/23/2023 stable No plans for operative management Neuro checks every 4 hours Keppra BID x 7 days (06/21-06/28) SQ Heparin started 06/24 Will need 2-week outpatient follow-up with neurosurgery Left ankle fracture with syndesmosis injury Ortho consulted (signed-off) POD#3 s/p ORIF as above NWB LLE in walker boot Soft dressing to LLE Multimodal pain control PT/OT Outpatient follow-up with Dr. Valdez in 2 weeks Continue home medications Current diet order: DIET REGULAR Pain regimen: Scheduled Tylenol; PRN Oxycodone Bowel regimen: Senna Labs: Daily BMP, CBC Medically stable for discharge to SNF PPX: DVT: SQ Heparin 5000 units TID; SCD RLE; mobilize Ulcer: NA Vit D level if > 65 yo: 37.0 Consulted Services: Trauma SICU Neurosurgery Ortho PT/OT Dispo Planning: PT/OT recommends SNF. Case management following. Patient is medically stable for disc (more content not included)... [facility] 06-25-2023 Note HNO ID: [id number] Author: Sultana Nolasco RN Service: Care Management Author Type: Registered Nurse Type: Care Mgt Initial Assessment Filed: 06/25/2023 3:30 PM Note Text: CARE MANAGEMENT: ASSESSMENT AND DISCHARGE PLAN SERVICE DATE: June 25, 2023 SERVICE TIME: 3:26 PM PCP: Vadim Vega MD Primary Contact: Extended Emergency Contact Information Primary Emergency Contact: Gerri Barnes Relation: Sister Admission Status: Inpatient Insurance Provider: [employer] MEDICARE PPO Discharge Planning requested by: Per Department Practice Potential Transition Plans Retirement Facility/Intermediate Care Facility Advance Directives Current Advance Directive: Health Care Power of Inspector Fuel Hose In Chart: Yes Up To Date and Valid: Yes Current Living Arrangements and Support Lives with: Alone Type of Residence: Private Residence (House) Support: Family members How do you manage to accomplish the following: Independent: Ambulation;Bathe/Shower;Dress;Meal s/Meal Prep;Going to the bathroom;Medication Management;Transportation to appointments/community Current Services/Equipment Current Post-Acute Service(s): None Discharge Planning Patient Goal(s): Be able to go home, General wellness, Increase strength [place] of Choice Explained: [place] of Choice Given: Yes Level of Care Discussed: Retirement Facility Are you interested in bedside delivery of your medications? No Discharge Planning Participant(s): Patient;Other person(s) Name/Relationship: Sister/HCPGerri JONES, by phone Patient/Family Comments: Caregiver Assessment: Caregiver is ready, willing and able to meet the patient's needs as recommended by the inter-professional team: No Transport at Discharge: Transportation Arrangements: To Be Determined Needs Prior to Discharge: Needs Prior to Discharge: Accepting Facility;Bed Availability;Insurance Authorization Post-Acute Discharge Plan: Met with pt in room and he states he lives at home alone. His sister, Gerri is his HCPOA and she assisted by phone with SNF choices today. SNF Choice list given after receiving phone call that pt is ready for D/C. Bed availability has been obtained, pt will also need Precert. Pt did say that his insurance will change on July 01, 2023. He has his card and CM made copy of the new card showing [employer] starting on 07/01/23. SIGNATURE: Sultana Nolasco RN PATIENT NAME: Deniz Kumar DATE: June 25, 2023 TIME: 3:26 PM CONTACT #: [phone] [facility] 06-25-2023 Note HNO ID: [id number] Author: Leah Mcgraw APRN.CNP Service: General Surgery Author Type: Nurse Practitioner Type: Progress Notes Filed: 06/25/2023 8:06 AM Note Text: Trauma Surgery Progress Note SERVICE DATE: 06/25/2023 Trauma Service Pager: For questions or concerns Mon-Fri 6a-5p please page [phone]. After 5pm and on Weekends and Holidays, please page [phone] if in ICU or [phone] if on RNF. SUBJECTIVE: NAEON. Patient reports pain is controlled. He is asking when he can be discharged to SNF - discussed that associate director career services will see him today and begin process, but that it may take several days. Patient without focal complaints apart from wanting to be discharged. Tolerating diet. OBJECTIVE: Vitals: Temp (24hrs), Av.6 ?C (97.9 ?F), Min:36.4 ?C (97.5 ?F), Max:36.9 ?C (98.4 ?F) BP 156/91 Pulse (!) 58 Temp 36.6 ?C (97.8 ?F) (Oral) Resp 18 Ht 182.9 cm (6' 0.01 ) Wt 98.3 kg (216 lb 11.4 oz) SpO2 93% BMI 29.38 kg/m? O2 Therapy: Room Air IANDO: Date 06/24/23 07 - 06/25/23 0659 06/25/23 0700 - 06/26/23 0659 Shift 2957-1976 3523-6308 8407-4944 24 Hour Total 5635-2478 1823-3185 8946-6480 24 Hour Total INTAKE Shift Total OUTPUT Urine 150 150 Void (ml) 150 150 Urine Not Saved. 1 x 1 x # of BMs Number of BMs 1 x 1 x Shift Total 150 150 Weight (kg) 98.3 98.3 98.3 98.3 98.3 98.3 98.3 98.3 MEDICATIONS: Current Facility-Administered Medications Medication Dose Route Frequency heparin 5,000 Units injection 5,000 Units SUBCUTANEOUS q 8 H calcium-cholecalciferol (D3) 2 tablet tab(s) (OSCAL+D 250) 2 tablet ORAL BID senna 17.2 mg tab(s) (SENOKOT) 17.2 mg ORAL AT BEDTIME oxyCODONE IR 5 mg tab(s) (ROXICODONE) 5 mg ORAL q 6 H PRN NaCl 0.9% iv flush bag 20 mL INTRAVENOUS PRN levETIRAcetam 500 mg tab(s) (KEPPRA) 500 mg ORAL BID pravastatin 20 mg tab(s) (PRAVACHOL) 20 mg ORAL AT BEDTIME acetaminophen 1,000 mg tab(s) (TYLENOL) 1,000 mg ORAL/FEEDING TUBE q 6 H Labs: Recent Labs 06/25/23 0149 12/25/23 0135 NA 141 140 K 3.6* 3.8 CHLOR 106* 105 CO2 26 27 BUN 30* 33* CREAT 0.95 0.91 GLUC 84 111* ANION 9 8* CA 9.2 9.0 WBC 6.73 8.35 HB 14.5 14.0 HCT 43.2 41.5 PLT 109* 96* PHYSICAL EXAM: Genl: Appears age appropriate. No acute distress. Resting comfortably. Head/Face: Normocephalic. Atraumatic Eyes: EOMI. PERRLA. Sclera not icteric, not injected Resp: Lungs CTAB. No wheezes, rales or rhonchi. Respiratory status stable on RA. CVS: RRR as above. 2+ RA, DP, PT pulses bilaterally. GI: Abdomen is soft, non-tender, non-distended. No guarding or peritoneal signs. MSK: No gross deformities. No clubbing, cyanosis or edema. Normal AROM x 4. RLE in JILL with walker boot in place. Skin: Warm and dry. Not jaundiced. Neuro: AANDOx3. Strength and sensation grossly intact in all extremities. DEY. GCS15. Psych: Normal mood. Normal affect. Appropriate insight into current situation. ASSESSMENT AND PLAN: Assessment Active Hospital Problems Diagnosis Date Noted Subdural hematoma (HCC) 06/21/2023 Closed fracture of left ankle 06/23/2023 Fall 06/22/2023 Thrombocytopenia, unspecified (HCC) 2017 Essential hypertension 02/22/2006 Assessment: 88 year old male s/p GLF on ASA on 06/21/2023 Imaging performed: 06/21/2023 - CT HN, CXR, PXR, repeat CTH, XR L ankle 06/22/2023 - repeat CTH, XR L ankle 06/23/2023 - XR L ankle, repeat CTH Traumatic Injuries: Left parafalcine and tentorial SDH Left ankle fracture with syndesmotic instability Operations/Procedures: 1. 06/23/2023 - ORIF left bimalleolar ankle fracture; open reduction fixation left syndesmosis Care Plan: SDH Neurosurgery consulted DDAVP administered for ASA reversal upon arrival Repeat CT Brain 06/23/2023 stable No plans for operative management Continue q4hr neuro checks Keppra BID x 7 days Hold chemo ppx for now Will need 2-week outpatient follow-up with neurosurgery Left ankle fracture with syndesmosis injury Ortho consulted POD#2 s/p ORIF as above NWB RLE in walker boot Soft dressing to LLE Pain control PT/OT Outpatient follow-up with Dr. Valdez in 2 weeks Continue home medications Current diet order: DIET REGULAR Pain regimen: Scheduled Tylenol; prn oxycodone Bowel regimen: Senna Labs: As above Medically stable for discharge to SNF PPX: DVT: Chemo ppx held in lieu of SDH; SCD RLE; mobilize Ulcer: NA Vit D level if > 65 yo: WNL Consulted Services: Trauma SICU Neurosurgery Ortho PT/OT Dispo Planning: PT/OT recs SNF. Case management following. Patient is medically stable for discharge. Incidentals: None Follow Up Needs: Neurosurgery - 2 weeks Ortho - Dr. Valdez - 2 weeks Discussed with attending: Dr. Garrett Portions of text from this note were copied from prior patient encounter. All relevant information was updated to reflect most-recent clinical decision-making and plan of care June 25, 2023. SIGNAT (more content not included)... [facility] 06-25-2023 Note HNO ID: [id number] Author: Uche Vasquez MD Service: Orthopaedic Surgery Author Type: Resident Type: Progress Notes Filed: 06/25/2023 6:59 AM Note Text: Orthopaedic Surgery Inpatient Progress Note Assessment Deniz Kumar is a 88 year old male who is POD #2 status-post ORIF left ankle. Plan - Trauma primary - Pain control - Abx: Ancef 2g q8hrs x2 doses - Weight bearing status: NWB LLE - Walking boot to LLE - Diet: regular - Dressing: soft dressing - Rest, ice, elevate LLE - DVT ppx: per trauma - Drain: none - Imaging: post op XR of left ankle in PACU - completed - PT/OT - recommending SNF - Dispo: ok for discharge from orthopedic standpoint - Follow up with Dr. Valdez in 2 weeks. Orthopedics to sign off at this time. Please page [phone] with any questions or concerns Subjective No acute events overnight. Pain controlled with medication. No fevers, chills, chest pain, or shortness of breath. No new complaints. Physical Examination Vitals BP 156/91 Pulse (!) 58 Temp 36.6 ?C (97.8 ?F) (Oral) Resp 18 Ht 182.9 cm (6' 0.01 ) Wt 98.3 kg (216 lb 11.4 oz) SpO2 93% BMI 29.38 kg/m? General Alert. No acute distress. Cooperative with interview. Left Lower Extremity Soft dressing to LLE - clean, dry, intact Alignment normal. No gross deformities. No swelling, ecchymosis, or erythema. No open wounds or lacerations. SILT [place]/Sa/DP/SP/T. Motor intact EHL/DF/PF. DP/PT pulses palpable; BCR all digits. Labs Recent Labs 06/25/23 0149 06/24/23 0135 NA 141 140 K 3.6* 3.8 CHLOR 106* 105 CO2 26 27 BUN 30* 33* CREAT 0.95 0.91 GLUC 84 111* ANION 9 8* CA 9.2 9.0 WBC 6.73 8.35 HB 14.5 14.0 HCT 43.2 41.5 PLT 109* 96* Imaging No new imaging Uche Vasquez MD Orthopaedic Surgery - PGY 3 6:51 AM 06/25/2023 Pager #[phone] INPATIENT ATTENDING: Bonifacio Chaudhari MD, Urgent High-Risk Geriatric Patient Vulnerabilities: Age >85 and Impaired Mobility Diet: DIET REGULAR Code Status: Full Code Recommendations: Cognition: No Cognitive Impairment bCAM Score (Calc): Negative Delirium Screen Confusion Assessment Method (CAM - ICU Score): Negative Geriatric Consult (Age over 85 or impaired cognition):Consult to Commercial Counsel Palliative Care/Hospice: Consult not required Rehab/Therapy: PT/OT Recommendations: PT: Recommended Discharge Disposition: Subacute/SNF OT: Recommended Discharge Disposition: Subacute/SNF Swallow: Swallow Screening Result - Step 2: PASSED Swallow Screen - Patient Able To Swallow 3 Ounce Cup of Water Without Exhibiting Signs Of Aspiration Speech Recommendations: Speech: Speech Diet: Nutrition: Consult not required Nutrition Recommendations: MST: Total MST Score (Calculated): 0 Instrumental Music Teacher: Pharmacy: Consult not needed Social Work: NA Anticipated Discharge Disposition: Retirement Facility [facility] 06-24-2023 Note HNO ID: [id number] Author: Romeo Sanchez PA-C Service: General Surgery Author Type: Physician Architectural Drafting Instructor Type: Progress Notes Filed: 06/24/2023 8:41 AM Note Text: Trauma Surgery Progress Note SERVICE DATE: 06/24/2023 Trauma Service Pager: For questions or concerns Mon-Fri 6a-5p please page [phone]. After 5pm and on Weekends and Holidays, please page [phone] if in ICU or [phone] if on RNF. SUBJECTIVE: NAEON. Patient sitting up eating breakfast upon my arrival. No new focal concerns at this time. Denies COV[place] or visual changes. LLE pain controlled. Inquiring about discharge timing. OBJECTIVE: Vitals: Temp (24hrs), Av.7 ?C (98.1 ?F), Min:36.5 ?C (97.7 ?F), Max:37.1 ?C (98.7 ?F) BP 150/80 Pulse (!) 56 Temp 36.6 ?C (97.9 ?F) (Oral) Resp 18 Ht 182.9 cm (6' 0.01 ) Wt 98.3 kg (216 lb 11.4 oz) SpO2 94% BMI 29.38 kg/m? O2 Therapy: Room Air IANDO: Date 06/23/23699 - 06/24/23 0659 06/24/23 07 - 06/25/23 0659 Shift 9269-5429 5508-7104 6127-2405 24 Hour Total 5608-9010 3305-2476 2572-5396 24 Hour Total INTAKE IV 700 100 100 900 Volume (mL) (ceFAZolin iv piggyback 2 g in D5W (iso-osmotic) 100 mL (ANCEF)) 100 100 200 Volume (mL) (ceFAZolin iv piggyback 2 g in D5W (iso-osmotic) 100 mL (ANCEF)) 100 100 Volume (mL) (lactated ringers iv infusion) 600 600 Shift Total 700 100 100 900 OUTPUT Urine 200 200 350 750 Void (ml) 200 200 350 750 Urine Not Saved. 1 x 1 x Blood 15 15 Estimated Blood loss 15 15 Shift Total 215 200 350 765 Weight (kg) 98.1 98.1 98.1 98.1 98.3 98.3 98.3 98.3 MEDICATIONS: Current Facility-Administered Medications Medication Dose Route Frequency calcium-cholecalciferol (D3) 2 tablet tab(s) (OSCAL+D 250) 2 tablet ORAL BID senna 17.2 mg tab(s) (SENOKOT) 17.2 mg ORAL AT BEDTIME oxyCODONE IR 5 mg tab(s) (ROXICODONE) 5 mg ORAL q 6 H PRN NaCl 0.9% iv flush bag 20 mL INTRAVENOUS PRN levETIRAcetam 500 mg tab(s) (KEPPRA) 500 mg ORAL BID pravastatin 20 mg tab(s) (PRAVACHOL) 20 mg ORAL AT BEDTIME acetaminophen 1,000 mg tab(s) (TYLENOL) 1,000 mg ORAL/FEEDING TUBE q 6 H Labs: Recent Labs 06/24/23 0135 06/23/23 0453 06/22/23 0423 06/21/23 1619 NA 140 141 140 141 K 3.8 3.9 3.8 3.6* CHLOR 105 108* 106* 109* CO2 27 25 25 23 BUN 33* 37* 35* 24 CREAT 0.91 0.89 0.84 0.74 GLUC 111* 99 121* 112* ANION 8* 8* 9 9 CA 9.0 8.9 8.6 8.6 MG -- -- 1.8 -- P -- -- 3.2 -- ALB -- -- -- 3.4* AST -- -- -- 23 ALT -- -- -- 15 ALKPHOS -- -- -- 66 TBILI -- -- -- 0.8 WBC 8.35 7.13 6.20 7.52 HB 14.0 13.7 13.1 15.5 HCT 41.5 40.3 38.2* 45.3 PLT 96* 99* 106* 118* INR -- -- -- 1.1 PHYSICAL EXAM: Genl: Appears age appropriate. No acute distress. Resting comfortably. Head/Face: Normocephalic. Atraumatic Eyes: EOMI. PERRLA. Sclera not icteric, not injected Resp: Lungs CTAB. No wheezes, rales or rhonchi. Respiratory status stable on RA. CVS: RRR as above. 2+ RA, DP, PT pulses bilaterally. GI: Abdomen is soft, non-tender, non-distended. No guarding or peritoneal signs. MSK: No gross deformities. No clubbing, cyanosis or edema. Normal AROM x 4. RLE in JILL with walker boot in place. Skin: Warm and dry. Not jaundiced. Neuro: AANDOx3. Strength and sensation grossly intact in all extremities. DEY. GCS15. Psych: Normal mood. Normal affect. Appropriate insight into current situation. ASSESSMENT AND PLAN: Assessment Active Hospital Problems Diagnosis Date Noted Subdural hematoma (HCC) 06/21/2023 Closed fracture of left ankle 06/23/2023 Fall 06/22/2023 Thrombocytopenia, unspecified (HCC) 2017 Essential hypertension 02/22/2006 Assessment: 88 year old male s/p GLF on ASA on 06/21/2023 Imaging performed: 06/21/2023 - CT HN, CXR, PXR, repeat CTH, XR L ankle 06/22/2023 - repeat CTH, XR L ankle 06/23/2023 - XR L ankle, repeat CTH Traumatic Injuries: Left parafalcine and tentorial SDH Left ankle fracture with syndesmotic instability Operations/Procedures: 1. 06/23/2023 - ORIF left bimalleolar ankle fracture; open reduction fixation left syndesmosis Care Plan: SDH Neurosurgery consulted DDAVP administered for ASA reversal upon arrival Repeat CT Brain 06/23/2023 stable No plans for operative management Continue q4hr neuro checks Keppra BID x 7 days Hold chemo ppx for now Will need 2-week outpatient follow-up with neurosurgery Left ankle fracture with syndesmosis injury Ortho consulted POD#1 s/p ORIF as above NWB RLE in walker boot Soft dressing to LLE Pain control PT/OT Outpatient follow-up with Dr. Valdez in 2 weeks Home medications to be reviewed and reordered accordingly. Current diet order: DIET REGULAR Pain regimen: Scheduled Tylenol; prn oxycodone Bowel regimen: Senna Labs: As above PPX: DVT: Chemo ppx held in lieu of SDH; SCD RLE; mobilize Ulcer: NA Vit D level if > 65 yo: pending Consulted Services: Trauma SICU Neurosurgery Ortho PT/OT Dispo Planning: (more content not included)... [facility] 06-24-2023 Note HNO ID: [id number] Author: Bonifacio Valdez MD Service: Orthopaedic Surgery Author Type: Physician Type: Progress Notes Filed: 06/24/2023 10:11 AM Note Text: Orthopaedic Surgery Inpatient Progress Note Assessment Deniz Kumar is a 88 year old male who is POD #1 status-post ORIF left ankle. Plan - Trauma primary - Pain control - Abx: Ancef 2g q8hrs x2 doses - Weight bearing status: NWB LLE - Walking boot to LLE - Diet: regular - Dressing: soft dressing - Rest, ice, elevate LLE - DVT ppx: per trauma - Drain: none - Imaging: post op XR of left ankle in PACU - completed - PT/OT - appreciate evaluation and recommendations - Dispo: ok for discharge from orthopedic standpoint - Follow up with Dr. Valdez in 2 weeks Subjective No acute events overnight. Pain slightly greater than yesterday, but well controlled. No new numbness or tingling. No fevers, chills, chest pain, or shortness of breath. No new complaints. Physical Examination Vitals BP 147/79 Pulse (!) 55 Temp 36.5 ?C (97.7 ?F) (Oral) Resp 16 Ht 182.9 cm (6' 0.01 ) Wt 98.1 kg (216 lb 4.3 oz) SpO2 94% BMI 29.33 kg/m? General Alert. No acute distress. Cooperative with interview. Left Lower Extremity Soft dressing to LLE - clean, dry, intact Alignment normal. No gross deformities. No swelling, ecchymosis, or erythema. No open wounds or lacerations. SILT [place]/Sa/DP/SP/T. Motor intact EHL/DF/PF. DP/PT pulses palpable; BCR all digits. Labs Recent Labs 06/24/23 0135 06/23/23 0453 06/22/23 0423 06/21/23 1619 NA 140 141 140 141 K 3.8 3.9 3.8 3.6* CHLOR 105 108* 106* 109* CO2 27 25 25 23 BUN 33* 37* 35* 24 CREAT 0.91 0.89 0.84 0.74 GLUC 111* 99 121* 112* ANION 8* 8* 9 9 CA 9.0 8.9 8.6 8.6 MG -- -- 1.8 -- P -- -- 3.2 -- ALB -- -- -- 3.4* AST -- -- -- 23 ALT -- -- -- 15 ALKPHOS -- -- -- 66 TBILI -- -- -- 0.8 WBC 8.35 7.13 6.20 7.52 HB 14.0 13.7 13.1 15.5 HCT 41.5 40.3 38.2* 45.3 PLT 96* 99* 106* 118* INR -- -- -- 1.1 Imaging Post op XR of left ankle show stable placement of hardware s/p ORIF Uche Vasquez MD Orthopaedic Surgery - PGY 3 5:53 AM 06/24/2023 Pager #[phone] INPATIENT ATTENDING: Bonifacio Chaudhari MD, Urgent High-Risk Geriatric Patient Vulnerabilities: Age >85 and Impaired Mobility Diet: DIET REGULAR Code Status: Full Code Recommendations: Cognition: No Cognitive Impairment bCAM Score (Calc): Negative Delirium Screen Confusion Assessment Method (CAM - ICU Score): Negative Geriatric Consult (Age over 85 or impaired cognition):Consult to Commercial Counsel Palliative Care/Hospice: Consult not required Rehab/Therapy: PT/OT Recommendations: PT: OT: Swallow: Swallow Screening Result - Step 2: PASSED Swallow Screen - Patient Able To Swallow 3 Ounce Cup of Water Without Exhibiting Signs Of Aspiration Speech Recommendations: Speech: Speech Diet: Nutrition: Consult not required Nutrition Recommendations: MST: Total MST Score (Calculated): 0 Instrumental Music Teacher: Pharmacy: Consult not needed Social Work: NA Anticipated Discharge Disposition: Home with Self Care Attending Note I personally saw and examined the patient. I reviewed the resident's note. I agree with the resident's assessment and plan unless otherwise noted. Signature: Bonifacio Valdez MD Date: 06/24/2023 Time: 10:11 AM [facility] 06-23-2023 Note HNO ID: [id number] Author: Romeo Sanchez PA-C Service: General Surgery Author Type: Physician Architectural Drafting Instructor Type: Progress Notes Filed: 06/23/2023 12:10 PM Note Text: Trauma Surgery Progress Note SERVICE DATE: 06/23/2023 Trauma Service Pager: For questions or concerns Mon-Fri 6a-5p please page [phone]. After 5pm and on Weekends and Holidays, please page [phone] if in ICU or [phone] if on RNF. SUBJECTIVE: NAEON. Patient seen and examined post-operatively. Pain is controlled. Denies COV[place] or visual changes. No new focal concerns at this time. OBJECTIVE: Vitals: Temp (24hrs), Av.5 ?C (97.7 ?F), Min:36.1 ?C (97 ?F), Max:36.7 ?C (98.1 ?F) BP 148/86 Pulse (!) 56 Temp 36.7 ?C (98.1 ?F) (Oral) Resp 16 Ht 182.9 cm (6' 0.01 ) Wt 98.1 kg (216 lb 4.3 oz) SpO2 94% BMI 29.33 kg/m? O2 Therapy: Nasal Cannula IANDO: Date 06/22/23699 - 06/23/23 0659 06/23/23699 - 06/24/23 0659 Shift 1177-3081 6517-0058 2087-0451 24 Hour Total 7139-9373 3281-7235 0723-1438 24 Hour Total INTAKE PO 450 240 200 890 PO 450 240 200 890 IV 246 246 700 700 Volume (mL) (ceFAZolin iv piggyback 2 g in D5W (iso-osmotic) 100 mL (ANCEF)) 100 100 Volume (mL) (lactated ringers iv infusion) 246 246 Volume (mL) (lactated ringers iv infusion) 600 600 Shift Total 696 081 509 7275 700 700 OUTPUT Urine 150 250 400 Void (ml) 150 250 400 Urine Not Saved. 1 x 1 x # of BMs Number of BMs 1 x 1 x Blood 15 15 Estimated Blood loss 15 15 Shift Total 150 250 400 15 15 Weight (kg) 98 98 98 98 98.1 98.1 98.1 98.1 MEDICATIONS: Current Facility-Administered Medications Medication Dose Route Frequency calcium-cholecalciferol (D3) 2 tablet tab(s) (OSCAL+D 250) 2 tablet ORAL BID oxyCODONE IR 5 mg tab(s) (ROXICODONE) 5 mg ORAL q 6 H PRN NaCl 0.9% iv flush bag 20 mL INTRAVENOUS PRN levETIRAcetam 500 mg tab(s) (KEPPRA) 500 mg ORAL BID pravastatin 20 mg tab(s) (PRAVACHOL) 20 mg ORAL AT BEDTIME acetaminophen 1,000 mg tab(s) (TYLENOL) 1,000 mg ORAL/FEEDING TUBE q 6 H Labs: Recent Labs 06/23/23 0453 06/22/23 0423 06/21/23 1619 NA 141 140 141 K 3.9 3.8 3.6* CHLOR 108* 106* 109* CO2 25 25 23 BUN 37* 35* 24 CREAT 0.89 0.84 0.74 GLUC 99 121* 112* ANION 8* 9 9 CA 8.9 8.6 8.6 MG -- 1.8 -- P -- 3.2 -- ALB -- -- 3.4* AST -- -- 23 ALT -- -- 15 ALKPHOS -- -- 66 TBILI -- -- 0.8 WBC 7.13 6.20 7.52 HB 13.7 13.1 15.5 HCT 40.3 38.2* 45.3 PLT 99* 106* 118* INR -- -- 1.1 PHYSICAL EXAM: Genl: Appears age appropriate. No acute distress. Resting comfortably. Head/Face: Normocephalic. Atraumatic Eyes: EOMI. PERRLA. Sclera not icteric, not injected Resp: Lungs CTAB. No wheezes, rales or rhonchi. Respiratory status stable on RA. CVS: RRR as above. 2+ RA, DP, PT pulses bilaterally. GI: Abdomen is soft, non-tender, non-distended. No guarding or peritoneal signs. MSK: No gross deformities. No clubbing, cyanosis or edema. Normal AROM x 4. RLE in JILL with walker boot in place. Skin: Warm and dry. Not jaundiced. Neuro: AANDOx3. Strength and sensation grossly intact in all extremities. DEY. GCS15. Psych: Normal mood. Normal affect. Appropriate insight into current situation. ASSESSMENT AND PLAN: Assessment Active Hospital Problems Diagnosis Date Noted Subdural hematoma (HCC) 06/21/2023 Closed fracture of left ankle 06/23/2023 Fall 06/22/2023 Thrombocytopenia, unspecified (HCC) 2017 Essential hypertension 02/22/2006 Assessment: 88 year old male s/p GLF on ASA on 06/21/2023 Imaging performed: 06/21/2023 - CT HN, CXR, PXR, repeat CTH, XR L ankle 06/22/2023 - repeat CTH, XR L ankle 06/23/2023 - XR L ankle Traumatic Injuries: Left parafalcine and tentorial SDH Left ankle fracture with syndesmotic instability Operations/Procedures: 1. 06/23/2023 - ORIF left bimalleolar ankle fracture; open reduction fixation left syndesmosis Care Plan: SDH Neurosurgery consulted DDAVP administered for ASA reversal upon arrival Repeat CT Brain 06/23/2023 pending No plans for operative management Continue q4hr neuro checks Keppra BID x 7 days Hold chemo ppx for now Will need 2-week outpatient follow-up with neurosurgery Left ankle fracture with syndesmosis injury Ortho consulted POD#0 s/p ORIF as above NWB RLE in walker boot Soft dressing to LLE Pain control Outpatient follow-up with Dr. Valdez in 2 weeks Home medications to be reviewed and reordered accordingly. Current diet order: DIET REGULAR Pain regimen: Scheduled Tylenol; prn oxycodone Bowel regimen: Senna Labs: As above PPX: DVT: Chemo ppx held in lieu of SDH; SCD RLE; mobilize Ulcer: NA Vit D level if > 65 yo: pending Consulted Services: Trauma SICU Neurosurgery Ortho PT/OT pending Dispo Planning: PT/OT recs pending. Case management following. Incidentals: None Follow Up Needs: Neurosurgery - 2 weeks Ortho - Dr. Valdez - 2 weeks INPATIENT ATTENDING: Dr. Flores (more content not included)... [facility] 06-23-2023 Note HNO ID: [id number] Author: Sailaja Cao APRN.CLOSING SUPERVISOR Service: ? 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 Staffing Anesthesiologist: Renaldo Mccurdy MD CLOSING SUPERVISOR: Sailaja Cao APRN.CLOSING SUPERVISOR Performed by: KYLIE Indications and Patient Condition Indications for airway management: anesthesia Preoxygenated: yes anesthesia circuit Patient position: sniffing Method: asleep Final Airway Details Final airway type: supraglottic airway Number of attempts at approach: 1 Final Supraglottic Airway: i-gel Size 5 Seal Adequate: yes Failed airway: no Unrecognized esophageal intubation: no Airway not difficult SIGNATURE: Sailaja Cao APRN.CRNA PATIENT NAME: Deniz Kumar DATE: June 23, 2023 TIME: 8:29 AM CSN: [id number] [facility] 06-23-2023 Note HNO ID: [id number] Author: Uche Vasquez MD Service: Orthopaedic Surgery Author Type: Resident Type: Progress Notes Filed: 06/23/2023 6:40 AM Note Text: Orthopaedic Surgery Inpatient Progress Note Assessment Deniz Kumar is a 88 year old male with a left ankle fracture Plan - Management per primary team. - Pain control. - Weight-bearing status: NWB LLE - Walker boot in room - DVT: per primary - Diet: Ok for diet at this time - Dressing(s): Will plan for walker boot to the left lower extremity. - Antibiotic(s): per primary. - Imaging: XR L ankle stress view pending. - No acute surgical intervention planned at this time pending stress view, continue conservative treatment of lateral malleolus fracture. Subjective No acute events overnight. Pain well controlled. No fevers, chills, chest pain, or shortness of breath. No new complaints. Physical Examination Vitals BP 151/88 Pulse (!) 51 Temp 36.5 ?C (97.7 ?F) (Oral) Resp 18 Ht 182.9 cm (6' 0.01 ) Wt 98 kg (216 lb 0.8 oz) SpO2 93% BMI 29.30 kg/m? General Alert. No acute distress. Cooperative with interview. Left Lower Extremity Alignment normal. No gross deformities. Mild swelling. No ecchymosis or erythema. No open wounds or lacerations. Minimal tenderness to palpation of the left ankle. No medial tenderness Compartments of the thigh and leg are soft and compressible Tolerates passive stretch of the digits SILT [place]/Sa/DP/SP/T. Motor intact EHL/DF/PF. DP pulse palpable; BCR all digits. Labs Recent Labs 06/23/23 0453 06/22/23 0423 06/21/23 1619 NA 141 140 141 K 3.9 3.8 3.6* CHLOR 108* 106* 109* CO2 25 25 23 BUN 37* 35* 24 CREAT 0.89 0.84 0.74 GLUC 99 121* 112* ANION 8* 9 9 CA 8.9 8.6 8.6 MG -- 1.8 -- P -- 3.2 -- ALB -- -- 3.4* AST -- -- 23 ALT -- -- 15 ALKPHOS -- -- 66 TBILI -- -- 0.8 WBC 7.13 6.20 7.52 HB 13.7 13.1 15.5 HCT 40.3 38.2* 45.3 PLT 99* 106* 118* INR -- -- 1.1 Imaging No new imaging Uche Vasquez MD Orthopaedic Surgery - PGY 3 6:10 AM 06/23/2023 Pager #[phone] INPATIENT ATTENDING: Bonifacio Chaudhari MD, Urgent High-Risk Geriatric Patient Vulnerabilities: Age >85 and Impaired Mobility Diet: DIET NPO Code Status: Full Code Recommendations: Cognition: No Cognitive Impairment bCAM Score (Calc): Negative Delirium Screen Confusion Assessment Method (CAM - ICU Score): Negative Geriatric Consult (Age over 85 or impaired cognition):Consult to Commercial Counsel Palliative Care/Hospice: Consult not required Rehab/Therapy: PT/OT Recommendations: PT: OT: Swallow: Swallow Screening Result - Step 2: PASSED Swallow Screen - Patient Able To Swallow 3 Ounce Cup of Water Without Exhibiting Signs Of Aspiration Speech Recommendations: Speech: Speech Diet: Nutrition: Consult not required Nutrition Recommendations: MST: Total MST Score (Calculated): 0 Instrumental Music Teacher: Pharmacy: Consult not needed Social Work: NA Anticipated Discharge Disposition: Pending [facility] 06-22-2023 Note HNO ID: [id number] Author: Jon Almaraz MD Service: Orthopaedic Surgery Author Type: Resident Type: Plan of Care Filed: 06/22/2023 5:28 PM Note Text: Orthopaedic Plan of Care Note: Left ankle xray stress view demonstrating medial clear space widening. Will plan for OR tomorrow for surgical fixation of left ankle fracture. NPO at midnight. Consent obtained. Pre-op labs ordered. Please page orthopaedics with any questions Jon Almaraz MD Orthopaedic Surgery 06/22/2023 5:19 PM [facility] 06-22-2023 Note HNO ID: [id number] Author: Sina ([employer])Bonifacio Service: ? Author Type: Fisheries Inspector Type: Plan of Care Filed: 06/22/2023 4:02 PM Note Text: PHARMACY MEDICATION REVIEW Patient Name: Deniz Kumar : 1935 The following medications were updated within the MECHANICAL ARTIST medication list: Medications ADDED to MECHANICAL ARTIST medication list Medications CHANGED on MECHANICAL ARTIST medication list Lactobacillus acidophilus (PROBIOTIC) 10 billion cell cap Patient Yes Yes Sig: Take 1 capsule by mouth. Pt. states he takes occasionally but not daily Melatonin 5 mg cap OTHER Yes Yes Sig: Take 5 mg by mouth daily at bedtime. Pt. states he takes 3mg at bedtime. Medications REMOVED from MECHANICAL ARTIST medication list Additional comments: I was able to talk with pt. about his home medications. The pt. verified he takes the 8 medications on the MECHANICAL ARTIST list. I have not added or removed any medications from the MECHANICAL ARTIST list but I did note a change in how the pt. reports he takes 1 medication. He also told me he uses [facility] pharmacy for correction medications and [facility] for short term medications. Required follow up actions for nursing: Medication history completed by Historian. No nursing follow up required. The below information represents the best possible medication history: Yes Medication history completed by: Fisheries Inspector: Bonifacio Andino ([employer]) Source of history: Patient: Reliability of source: Appears reliable, clearly identified: Medication name, Medication dose, Medication route, and Medication frequency and Pharmacy records: [facility] e-script Medication nonadherence identified: No barriers noted Reconciliation completed: No, pharmacist not yet reviewed Patient interested in Bedside Delivery Services or using OP Pharmacy at discharge? Unable to assess Preferred outpatient pharmacy: e- [facility] [place] [address] - [address] - [phone] e- [facility] [id number] - [place] [address] [address] [phone] e- [id number] [place] [address] - [address] - [phone] [id number] Allergies: Clearasil Maximum S* Swelling Prior to Admission Medications Prescriptions Last Dose Informant Patient Reported? Taking? LOW-DOSE ASPIRIN ORAL Patient Yes Yes Sig: Take 81 mg by mouth twice daily. Lactobacillus acidophilus (PROBIOTIC) 10 billion cell cap Patient Yes Yes Sig: Take 1 capsule by mouth. MULTIVITAMIN TAB OTHER Yes Yes Sig: Take one(1) tablet daily. Melatonin 5 mg cap OTHER Yes Yes Sig: Take 5 mg by mouth daily at bedtime. doxazosin (CARDURA) 1 mg tablet OTHER No Yes Sig: Take 1 tablet by mouth once daily. finasteride (PROSCAR) 5 mg tablet OTHER No Yes Sig: Take 1 tablet by mouth once daily. lisinopril (ZESTRIL) 20 mg tablet OTHER No Yes Sig: Take 1 tablet by mouth once daily. pravastatin (PRAVACHOL) 20 mg tablet OTHER No Yes Sig: Take 1 tablet by mouth at bedtime Facility-Administered Medications: None Bonifacio Alfonsotabatha (Counter Molder) phone [phone] 06/22/2023 [facility] 06-22-2023 Note HNO ID: [id number] Author: Dorian Holman PA-C Service: Neurosurgery Author Type: Physician Architectural Drafting Instructor Type: Plan of Care Filed: 06/22/2023 9:42 AM Note Text: Neurosurgery Plan of Care Note: Discussed with Dr. Matta. Ok for [facility] today. Dorian Holman PA-C Department of Neurosurgery Pager: [phone] 22, 2023 9:42 AM [facility] 06-22-2023 Note HNO ID: [id number] Author: Mariposa Cervantes MD Service: General Surgery Author Type: Physician Type: Progress Notes Filed: 06/22/2023 10:18 AM Note Text: Trauma Surgery Progress Note SERVICE DATE: 06/22/2023 Trauma Service Pager: For questions or concerns Mon-Fri 6a-5p please page [phone]. After 5pm and on Weekends and Holidays, please page [phone] if in ICU or [phone] if on RNF. SUBJECTIVE: Acute events overnight. Patient said that he feels better than he did yesterday. Mild headache noted however no vision changes, dizziness, weakness, nausea OBJECTIVE: Vitals: Temp (24hrs), Av.8 ?C (98.3 ?F), Min:36.7 ?C (98.1 ?F), Max:36.9 ?C (98.4 ?F) BP 115/66 Pulse (!) 51 Temp 36.8 ?C (98.2 ?F) (Oral) Resp 10 Ht 182.9 cm (6' 0.01 ) Wt 98 kg (216 lb 0.8 oz) SpO2 97% BMI 29.30 kg/m? O2 Therapy: Nasal Cannula IANDO: Date 06/21/23 07 - 06/22/23 0659 06/22/23 07 - 06/23/23 0659 Shift 7180-4029 2675-9047 7097-5600 24 Hour Total 7501-4437 9579-3015 3880-1034 24 Hour Total INTAKE IV 749 749 Volume (mL) (lactated ringers iv infusion) 749 749 Shift Total 749 749 OUTPUT Urine 200 200 Void (ml) 200 200 Urine Not Saved. 1 x 1 x Shift Total 200 200 Weight (kg) 96.7 98 98 98 98 98 98 MEDICATIONS: Current Facility-Administered Medications Medication Dose Route Frequency NaCl 0.9% iv flush bag 20 mL INTRAVENOUS PRN levETIRAcetam 500 mg tab(s) (KEPPRA) 500 mg ORAL BID pravastatin 20 mg tab(s) (PRAVACHOL) 20 mg ORAL AT BEDTIME acetaminophen 1,000 mg tab(s) (TYLENOL) 1,000 mg ORAL/FEEDING TUBE q 6 H oxyCODONE IR 5 mg tab(s) (ROXICODONE) 5 mg ORAL/FEEDING TUBE q 6 H lactated ringers iv infusion 100 mL/hr INTRAVENOUS CONTINUOUS Labs: Recent Labs 06/22/23 0423 06/21/23 1619 NA 140 141 K 3.8 3.6* CHLOR 106* 109* CO2 25 23 BUN 35* 24 CREAT 0.84 0.74 GLUC 121* 112* ANION 9 9 CA 8.6 8.6 MG 1.8 -- P 3.2 -- ALB -- 3.4* AST -- 23 ALT -- 15 ALKPHOS -- 66 TBILI -- 0.8 WBC 6.20 7.52 HB 13.1 15.5 HCT 38.2* 45.3 PLT 106* 118* INR -- 1.1 PHYSICAL EXAM: Genl: Appears age appropriate. No acute distress. Resting comfortably. Head/Face: Normocephalic. Atraumatic Eyes: EOMI. PERRLA. Sclera not icteric, not injected Neck: No mid-line masses. C-spine non-tender. Back: No midline tenderness, step-offs or deformities. Resp: Lungs CTAB. No wheezes, rales or rhonchi. Respiratory status stable on room air CVS: RRR as above. 2+ RA, DP, PT pulses bilaterally. GI: Abdomen is soft, non-tender, non-distended. No guarding or peritoneal signs. MSK: No gross deformities. No clubbing, cyanosis or edema. Normal AROM x 4. Skin: Warm and dry. Not jaundiced. Neuro: AANDOx3. Strength and sensation grossly intact in all extremities. DEY. GCS15. Psych: Normal mood. Normal affect. Appropriate insight into current situation. ASSESSMENT AND PLAN: Assessment Active Hospital Problems Diagnosis Date Noted Subdural hematoma (HCC) 06/21/2023 Fall 06/22/2023 Thrombocytopenia, unspecified (HCC) 2017 Essential hypertension 02/22/2006 Assessment: 88 year old male status post fall while hiking found to have subdural hematoma Imaging performed: CT [facility] Traumatic Injuries: left tentorial and falx subdural hematoma Operations/Procedures: 1. none Care Plan: SDH -Repeat CT head stable, shows slight decrease in size of bleed -DDAVP given for SA reversal -Keppra 500 mg twice daily for 7 days -Q1 neurochecks Discuss timing of subsequent CT head. If deemed stable by neurosurgical perspective, may consider transferring patient to floor today -No SBP cap -Patient was neurologically intact - pain: Scheduled Tylenol, oxy -Nausea: Zofran Okay for diet Pain regimen: jaquan tylenol, oxy Bowel regimen: NA Labs: CBC, BMP PPX: DVT: holding in light of SDH Ulcer: NA Vit D level if > 65 yo: pending Consulted Services: Trauma NSGY SICU Dispo Planning: PT/OT recs pending. Case management following. Incidentals: NA Follow Up Needs: TBD, possible floor transfer INPATIENT ATTENDING: * Surgery not found *, Elective High-Risk Geriatric Patient Vulnerabilities: Age >85 Diet: DIET NPO Code Status: Full Code Recommendations: Cognition: No Cognitive Impairment Confusion Assessment Method (CAM - ICU Score): Negative Geriatric Consult (Age over 85 or impaired cognition):Consult not needed Palliative Care/Hospice: Consult not required Rehab/Therapy: PT/OT Recommendations: PT: OT: Swallow: Swallow Screening Result - Step 2: PASSED Swallow Screen - Patient Able To Swallow 3 Ounce Cup of Water Without Exhibiting Signs Of Aspiration Speech Recommendations: Speech: Speech Diet: Nutrition: Consult not required Nutrition Recommendations: MST: Total MST Score (Calculated): 0 Instrumental Music Teacher: Pharmacy: Consult not needed Social Work: NA Anticipated Discharge Disposition: Pending Discussed (more content not included)... [facility] 04-01-2023 Miscellaneous Notes Patient has been identified by name and date of : Yes, Provider Dr. Vega Date 04/01/23 Time 1045 Patient phones for refill(s): Requested Prescriptions Pending Prescriptions Disp Refills pravastatin (PRAVACHOL) 20 mg tablet 90 tablet 3 Sig: Take 1 tablet by mouth at bedtime Date of last office visit in primary care: 02/15/23 Next OV 08/23/23 Last 2 Encounter Wt Readings: Date: Wt: 02/15/2023 97.1 kg (214 lb) 01/25/2023 98.9 kg (218 lb) Previous labs/tests for medication: Cholesterol: HDL Cholesterol (mg/dL) Date Value 02/08/2023 48 08/07/2021 49 LDL Cholesterol (mg/dL) Date Value 02/08/2023 93 08/07/2021 68 ALT (U/L) Date Value 02/08/2023 16 08/07/2021 13 Non HDL Cholesterol (mg/dL) Date Value 02/08/2023 112 08/07/2021 82 Please advise. Thank you. Ilana Burr RN documented in this encounter [facility] 02-28-2023 Note HNO ID: [id number] Author: Luann Branch PA-C Service: ? Author Type: Physician Architectural Drafting Instructor Type: Progress Notes Filed: 03/01/2023 1:20 PM Note Text: FOLLOW UP VISIT - HERNIA NAME: Deniz Echavarria [facility] NO.: [id number] DATE OF SERVICE: 02/28/2023 : 1935 REFERRING PHYSICIAN: Vadim Vega MD Deniz is a patient I am following with Dr. Ware for a recurrent umbilical hernia. Dr. Ware performed a repair of recurrent umbilical hernia on 02/21/23 at [facility]. The patient currently notes no major complaints. his appetite has been good. he denies fever, chills or abdominal pain. he does note some mild incisional discomfort. he notes no bulges at the operative site VITALS: Blood pressure 136/84, pulse 84, temperature 36.7 ?C (98.1 ?F), SpO2 95 %. General: patient is alert, cooperative, pleasant and in no acute distress On examination, the abdomen is benign. The incision is healing well without signs of infection or inflammation. +moderate ecchymosis. There are no signs of recurrent hernia formation. Assessment IMPRESSION: status post repair of recurrent umbilical hernia PLAN: If the patient notes any problems, he should contact me immediately. he may return to his regular activities as tolerated, with the exception of no lifting greater than 20 pounds for the next 7 weeks. If patient feels the urge to cough or sneeze, they should brace against the repair site with their hands or a pillow. Diagnoses: (Z98.890, Z87.19) S/P hernia repair (primary encounter diagnosis) Return to Clinic: The patient is instructed to follow-up with me as needed. Patient verbalized understanding of all above and agreed with the plan. Luann Branch PA-C [facility] 02-28-2023 Instructions Luann Branch PA-C - 02/28/2023 2:46 PM EDT The following instructions are important for you related to your office visit today with the [facility] General Surgeons. INSTRUCTIONS FOLLOWING YOUR RECENT HERNIA SURGERY You should be returning to your regular diet, If you have having persistent issues with tolerating your diet, please contact our office It is not unusual to have incisional pain for the first 1-2 weeks following surgery. If this persists beyond 2 weeks, contact the office You should leave the Steri-Strips in place until they fall off. You may return to your regular activities. You may drive if you are no longer taking narcotic pain medication. Climbing stairs is fine. Walking in encouraged. Sitting up from bed may be uncomfortable. Sitting up using your lateral abdominal muscles (sitting up sideways) is usually more comfortable. You should perform no lifting greater than 20lbs for the next 6-7 weeks. Usually 8 weeks total from the date of surgery. It is not unusual to have loose stools following surgery. This is usually self limited and related to the antibiotics that were given during your surgical procedure. Fiber supplementation and yogurt with active cultures may help you return to regular bowel activity. If you note loose stools persisting for over 2 weeks, or significant cramping or loose bloody stools, contact the office immediately. Contact the office immediately if any of your incisions become increasingly tender, red or have drainage. Again, if you have any difficulties or concerns, contact our office immediately. If you note any additional difficulties, questions, or concerns, you should contact our office immediately @ [phone] and ask to be transferred to the General Surgery department. documented in this encounter [facility] 02-28-2023 History of Present illness Narrative FOLLOW UP VISIT - HERNIA NAME: Deniz Echavarria [facility] NO.: [id number] DATE OF SERVICE: 02/28/2023 : 1935 REFERRING PHYSICIAN: Vadim Vega MD Deniz is a patient I am following with Dr. Ware for a recurrent umbilical hernia. Dr. Ware performed a repair of recurrent umbilical hernia on 02/21/23 at [facility]. The patient currently notes no major complaints. his appetite has been good. he denies fever, chills or abdominal pain. he does note some mild incisional discomfort. he notes no bulges at the operative site VITALS: Blood pressure 136/84, pulse 84, temperature 36.7 C (98.1 F), SpO2 95 %. General: patient is alert, cooperative, pleasant and in no acute distress On examination, the abdomen is benign. The incision is healing well without signs of infection or inflammation. +moderate ecchymosis. There are no signs of recurrent hernia formation. Assessment IMPRESSION: status post repair of recurrent umbilical hernia PLAN: If the patient notes any problems, he should contact me immediately. he may return to his regular activities as tolerated, with the exception of no lifting greater than 20 pounds for the next 7 weeks. If patient feels the urge to cough or sneeze, they should brace against the repair site with their hands or a pillow. Diagnoses: (Z98.890, Z87.19) S/P hernia repair (primary encounter diagnosis) Return to Clinic: The patient is instructed to follow-up with me as needed. Patient verbalized understanding of all above and agreed with the plan. Luann Branch PA-C documented in this encounter [facility] 02-15-2023 Note HNO ID: [id number] Author: Vadim Vega MD Service: ? Author Type: Physician Type: Progress Notes Filed: 02/15/2023 9:05 AM Note Text: This note was created using Grokr. Subjective Deniz Kumar is a 87 year old male. He continued with bothersome BPH LUTS symptoms. Urology did not recommend treatment. His hypertension had been controlled. He was scheduled for another umbilical hernia surgery, which has recurred. Review of Systems Constitutional: Negative for appetite change, fatigue and fever. Respiratory: Negative for cough, chest tightness and shortness of breath. Cardiovascular: Negative for chest pain, palpitations and leg swelling. Gastrointestinal: Negative for abdominal pain, nausea and vomiting. Genitourinary: Positive for difficulty urinating. Musculoskeletal: Negative for arthralgias. ACTIVE PROBLEM LIST Diverticulosis of Large Intestine Hyperlipidemia Essential Hypertension Benign Prostatic Hyperplasia With Urinary Obstruction Chronic Nonallergic Rhinitis Thrombocytopenia, Unspecified (Hcc) Erectile Dysfunction Obesity, Class II, Bmi 35-39.9 Urgency of Urination Social History Tobacco Use Smoking status: Former Packs/day: 0.50 Years: 5.00 Additional pack years: 0.00 Total pack years: 2.50 Types: Cigarettes, Pipe Smokeless tobacco: Never Vaping Use Vaping Use: Never used Substance Use Topics Alcohol use: Yes Alcohol/week: 1.0 standard drink of alcohol Types: 1 Cans of beer per week Comment: or less. Drug use: Not Currently Types: Marijuana Current Outpatient Medications Medication Sig lisinopril (ZESTRIL) 20 mg tablet Take 1 tablet by mouth once daily. pravastatin (PRAVACHOL) 10 mg tablet Take 1 tablet by mouth once daily. doxazosin (CARDURA) 1 mg tablet Take 1 tablet by mouth once daily. finasteride (PROSCAR) 5 mg tablet Take 1 tablet by mouth once daily. hydroCHLOROthiazide (HYDRODIURIL, ESIDRIX) 12.5 mg capsule Take 1 capsule by mouth once daily. Lactobacillus acidophilus (PROBIOTIC) 10 billion cell cap Take by mouth. LOW-DOSE ASPIRIN ORAL Take 81 mg by mouth twice daily. Melatonin 5 mg cap Take 5 mg by mouth daily at bedtime. MULTIVITAMIN TAB Take one(1) tablet daily. No current facility-administered medications for this visit. Objective BP 128/82 Pulse 85 Resp 16 Wt 97.1 kg (214 lb) SpO2 96% BMI 29.02 kg/m? Physical Exam Constitutional: General: He is not in acute distress. Appearance: He is not ill-appearing. Cardiovascular: Rate and Rhythm: Normal rate and regular rhythm. Heart sounds: No murmur heard. No gallop. Pulmonary: Breath sounds: Normal breath sounds. Abdominal: Palpations: Abdomen is soft. Tenderness: There is no abdominal tenderness. Hernia: A hernia is present. Musculoskeletal: Right lower leg: No edema. Left lower leg: No edema. Neurological: Mental Status: He is alert. Gait: Gait normal. UROL PROST[facility] MEN OVER 40 02/15/2023 INCOMPLETE EMPTYING 0-NOT AT ALL FREQUENCY 4-MORE THAN HALF THE TIME INTERMITTENCY 2-LESS THAN HALF TIME URGE TO URINATE 2-LESS THAN HALF TIME WEAK STREAM 3-ABOUT HALF THE TIME STRAINING 0-NOT AT ALL URINATING AT NIGHT 2-(2) TIMES TOTAL SCORE 13 SYMPTOM SCORE 8-19 MODERATE BOTHER SCORE DUE TO URINARY SYMPTOMS 3- MIXED Component Latest Ref Rng AND Units 02/08/2023 Protein, Total 6.3 - 8.0 g/dL 6.2 (L) Albumin 3.9 - 4.9 g/dL 3.8 (L) Calcium 8.5 - 10.2 mg/dL 9.2 Bilirubin, Total 0.2 - 1.3 mg/dL 0.9 Alkaline Phosphatase 38 - 113 U/L 70 AST 14 - 40 U/L 17 ALT 10 - 54 U/L 16 Glucose 74 - 99 mg/dL 91 BUN 9 - 24 mg/dL 27 (H) Creatinine 0.73 - 1.22 mg/dL 0.98 Sodium 136 - 144 mmol/L 138 Potassium 3.7 - 5.1 mmol/L 4.4 Chloride 97 - 105 mmol/L 102 CO2 22 - 30 mmol/L 25 Anion Gap 9 - 18 mmol/L 11 eGFR >=60 mL/min/1.73mA? 75 WBC 3.70 - 11.00 k/uL 4.42 RBC 4.20 - 6.00 m/uL 5.19 Hemoglobin 13.0 - 17.0 g/dL 15.9 Hematocrit 39.0 - 51.0 % 46.2 MCV 80.0 - 100.0 fL 89.0 MCH 26.0 - 34.0 pg 30.6 MCHC 30.5 - 36.0 g/dL 34.4 RDW-CV 11.5 - 15.0 % 12.3 Platelet Count 150 - 400 k/uL 127 (L) MPV 9.0 - 12.7 fL 10.8 Absolute nRBC <0.01 k/uL <0.01 Cholesterol, Total <200 mg/dL 160 Triglyceride <150 mg/dL 95 HDL Cholesterol >39 mg/dL 48 Non HDL Cholesterol <130 mg/dL 112 Fasting Time hrs 14 VLDL Cholesterol <30 mg/dL 19 TC:HDL Ratio <5.10 3.33 LDL Cholesterol <100 mg/dL 93 LDL:HDL Ratio <2.54 1.94 PSA Screening <2.60 ng/mL 0.71 Assessment and Plan 1. Benign prostatic hyperplasia with urinary obstruction - ICD9: 600.01, 599.69, ICD10: N40.1, N13.8 (primary diagnosis) - Discontinue HCTZ and see if symptoms improve. 2. Essential hypertension - ICD9: 401.9, ICD10: I10 - Controlled - Continue current medications - Recommend home blood pressure monitoring, to bring results to next visit 3. Hyperlipidemia, unspecified hyperlipidemia type - ICD9: 272.4, ICD10: E78.5 - Worsening contro (more content not included)... [facility] 02-15-2023 History of Present illness Narrative This note was created using NoteWriter. Subjective Deniz Kumar is a 87 year old male. He continued with bothersome BPH LUTS symptoms. Urology did not recommend treatment. His hypertension had been controlled. He was scheduled for another umbilical hernia surgery, which has recurred. Review of Systems Constitutional: Negative for appetite change, fatigue and fever. Respiratory: Negative for cough, chest tightness and shortness of breath. Cardiovascular: Negative for chest pain, palpitations and leg swelling. Gastrointestinal: Negative for abdominal pain, nausea and vomiting. Genitourinary: Positive for difficulty urinating. Musculoskeletal: Negative for arthralgias. ACTIVE PROBLEM LIST Diverticulosis of Large Intestine Hyperlipidemia Essential Hypertension Benign Prostatic Hyperplasia With Urinary Obstruction Chronic Nonallergic Rhinitis Thrombocytopenia, Unspecified (Hcc) Erectile Dysfunction Obesity, Class II, Bmi 35-39.9 Urgency of Urination Social History Tobacco Use Smoking status: Former Packs/day: 0.50 Years: 5.00 Additional pack years: 0.00 Total pack years: 2.50 Types: Cigarettes, Pipe Smokeless tobacco: Never Vaping Use Vaping Use: Never used Substance Use Topics Alcohol use: Yes Alcohol/week: 1.0 standard drink of alcohol Types: 1 Cans of beer per week Comment: or less. Drug use: Not Currently Types: Marijuana Current Outpatient Medications Medication Sig lisinopril (ZESTRIL) 20 mg tablet Take 1 tablet by mouth once daily. pravastatin (PRAVACHOL) 10 mg tablet Take 1 tablet by mouth once daily. doxazosin (CARDURA) 1 mg tablet Take 1 tablet by mouth once daily. finasteride (PROSCAR) 5 mg tablet Take 1 tablet by mouth once daily. hydroCHLOROthiazide (HYDRODIURIL, ESIDRIX) 12.5 mg capsule Take 1 capsule by mouth once daily. Lactobacillus acidophilus (PROBIOTIC) 10 billion cell cap Take by mouth. LOW-DOSE ASPIRIN ORAL Take 81 mg by mouth twice daily. Melatonin 5 mg cap Take 5 mg by mouth daily at bedtime. MULTIVITAMIN TAB Take one(1) tablet daily. No current facility-administered medications for this visit. Objective BP 128/82 Pulse 85 Resp 16 Wt 97.1 kg (214 lb) SpO2 96% BMI 29.02 kg/m Physical Exam Constitutional: General: He is not in acute distress. Appearance: He is not ill-appearing. Cardiovascular: Rate and Rhythm: Normal rate and regular rhythm. Heart sounds: No murmur heard. No gallop. Pulmonary: Breath sounds: Normal breath sounds. Abdominal: Palpations: Abdomen is soft. Tenderness: There is no abdominal tenderness. Hernia: A hernia is present. Musculoskeletal: Right lower leg: No edema. Left lower leg: No edema. Neurological: Mental Status: He is alert. Gait: Gait normal. [facility] MEN OVER 40 02/15/2023 INCOMPLETE EMPTYING 0-NOT AT ALL FREQUENCY 4-MORE THAN HALF THE TIME INTERMITTENCY 2-LESS THAN HALF TIME URGE TO URINATE 2-LESS THAN HALF TIME WEAK STREAM 3-ABOUT HALF THE TIME STRAINING 0-NOT AT ALL URINATING AT NIGHT 2-(2) TIMES TOTAL SCORE 13 SYMPTOM SCORE 8-19 MODERATE BOTHER SCORE DUE TO URINARY SYMPTOMS 3- MIXED Component Latest Ref Rng & Units 02/08/2023 Protein, Total 6.3 - 8.0 g/dL 6.2 (L) Albumin 3.9 - 4.9 g/dL 3.8 (L) Calcium 8.5 - 10.2 mg/dL 9.2 Bilirubin, Total 0.2 - 1.3 mg/dL 0.9 Alkaline Phosphatase 38 - 113 U/L 70 AST 14 - 40 U/L 17 ALT 10 - 54 U/L 16 Glucose 74 - 99 mg/dL 91 BUN 9 - 24 mg/dL 27 (H) Creatinine 0.73 - 1.22 mg/dL 0.98 Sodium 136 - 144 mmol/L 138 Potassium 3.7 - 5.1 mmol/L 4.4 Chloride 97 - 105 mmol/L 102 CO2 22 - 30 mmol/L 25 Anion Gap 9 - 18 mmol/L 11 eGFR >=60 mL/min/1.73m 75 WBC 3.70 - 11.00 k/uL 4.42 RBC 4.20 - 6.00 m/uL 5.19 Hemoglobin 13.0 - 17.0 g/dL 15.9 Hematocrit 39.0 - 51.0 % 46.2 MCV 80.0 - 100.0 fL 89.0 MCH 26.0 - 34.0 pg 30.6 MCHC 30.5 - 36.0 g/dL 34.4 RDW-CV 11.5 - 15.0 % 12.3 Platelet Count 150 - 400 k/uL 127 (L) MPV 9.0 - 12.7 fL 10.8 Absolute nRBC <0.01 k/uL <0.01 Cholesterol, Total <200 mg/dL 160 Triglyceride <150 mg/dL 95 HDL Cholesterol >39 mg/dL 48 Non HDL Cholesterol <130 mg/dL 112 Fasting Time hrs 14 VLDL Cholesterol <30 mg/dL 19 TC:HDL Ratio <5.10 3.33 LDL Cholesterol <100 mg/dL 93 LDL:HDL Ratio <2.54 1.94 PSA Screening <2.60 ng/mL 0.71 Assessment and Plan 1. Benign prostatic hyperplasia with urinary obstruction - ICD9: 600.01, 599.69, ICD10: N40.1, N13.8 (primary diagnosis) - Discontinue HCTZ and see if symptoms improve. 2. Essential hypertension - ICD9: 401.9, ICD10: I10 - Controlled - Continue current medications - Recommend home blood pressure monitoring, to bring results to next visit 3. Hyperlipidemia, unspecified hyperlipidemia type - ICD9: 272.4, ICD10: E78.5 - Worsening control - Counseled on healthy diet and regular exercise - PRAVASTATIN 10 MG TABLET. Increase to two tablets at bedtime. If tolerated, call for new prescription. - COMP METABOLIC PANEL - LIPID PANEL BASIC 4. Hypoalbuminemia - ICD9: 273.8, ICD10: E88.09 Discussed. Increase dietary protein, including vegetable sources. - URINALYSIS, WITH MICROSCOPIC 5. Thrombocytopenia, unspecified (HCC) - ICD9: 287.5, ICD10: D69.6 Stable. Vadim Vega MD documented in this encounter [facility] 01-25-2023 Note HNO ID: [id number] Author: Su Ware MD Service: ? Author Type: Physician Type: Progress Notes Filed: 01/26/2023 9:12 PM Note Text: HISTORY AND PHYSICAL Deniz Kumar 1935 REFERRING PHYSICIAN: No ref. provider found CHIEF COMPLAINT: Consult (Hernia repair) HPI: The patient is a 87 year old male presents with recurrent umbilical hernia He is s/p repair 09/21/2022. He admits to gaining several pounds since surgery. He has a protuberant abdomen with truncal obesity. He has noted this for the past 2-3 weeks. He denies cigarettes use. He notes intermittent tenderness in the area. 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 Rivera COLONOSCOPY FLX DX W/COLLJ SPEC WHEN PFRMD 03/2004 Colonoscopy TONSILLECTOMY AND ADENOIDECTOMY UMBILICAL HERNIA REPAIR 5 OR OLDER 09/21/2021 Current Outpatient Medications Medication Sig finasteride (PROSCAR) 5 mg tablet Take 1 tablet by mouth once daily. hydroCHLOROthiazide (HYDRODIURIL, ESIDRIX) 12.5 mg capsule Take 1 capsule by mouth once daily. pravastatin (PRAVACHOL) 10 mg tablet Take 1 tablet by mouth once daily. doxazosin (CARDURA) 1 mg tablet Take 1 tablet by mouth once daily. lisinopril (ZESTRIL, PRINIVIL) 20 mg tablet Take 1 tablet by mouth once daily. Lactobacillus acidophilus (PROBIOTIC) 10 billion cell cap Take by mouth. LOW-DOSE ASPIRIN ORAL Take 81 mg by mouth twice daily. Melatonin 5 mg cap Take 5 mg by mouth daily at bedtime. MULTIVITAMIN TAB Take one(1) tablet daily. No current facility-administered medications for this visit. ALLERGIES: Clearasil Maximum Strength PERSONAL HISTORY: Social History Tobacco Use Smoking status: Former Packs/day: 0.50 Years: 5.00 Total pack years: 2.50 Types: Cigarettes, Pipe Smokeless tobacco: Never Vaping Use Vaping Use: Never used Substance Use Topics Alcohol use: Yes Alcohol/week: 1.0 standard drink of alcohol Types: 1 Cans of beer per week Comment: or less. Drug use: Not Currently Types: Marijuana FAMILY HISTORY Problem Relation Age of Onset Prostate Cancer Father metastatic prostate Cancer Mother liver Hypertension Sister Lipids Sister The review of systems data was entered by the nurse and reviewed by md Nursing Notes: Fernanda Carmichael LPN 01/25/2023 3:09 PM Signed REVIEW OF SYSTEMS: General: The patient denies fatigue, denies weight loss, denies weight gain, denies feeling hot, and denies feelings of cold. Eyes: The patient denies glaucoma, denies eye injury/surgery, wears glasses or contacts. Ear/Nose/Throat: The patient NOTES allergies, denies hayfever, denies ear infections, and denies bloody noses. Cardiovascular: The patient denies chest pain, denies heart disease, NOTES high blood pressure,denies cardiac stent, denies prior heart attack, denies irregular heart beat, denies high cholesterol, denies poor circulation, denies heart failure, other cardiac issues, denies claudication, denies cold feet, denies peripheral arterial stent. Respiratory: The patient denies tuberculosis, denies pneumonia, denies frequent cough, denies pulmonary embolism, denies shortness of breath, and denies coughing up blood. Gastrointestinal: The patient denies difficulty swallowing, denies acid reflux, denies ulcers, denies vomiting, denies jaundice/hepatitis, denies gallbladder problems, denies black or tarry stools, denies hemorrhoids, denies bleeding from rectum, denies diverticulitis, NOTES constipation, denies diarrhea, denies loss of stool control, and NOTES hernias. Kidney/Bladder: The patient denies kidney stones, denies urine infections, and denies bloody urine. Skin: The patient denies a history of skin cancer, denies bleeding/changing moles, and denies a history of skin rash. Neurologic: The patient denies a history of epilepsy/convulsions, NOTES headaches, denies head/spinal injuries, and denies stroke/TIA. Psychiatric: The patient denies psychiatric medications, denies depression, and denies voices, denies substance abuse. Endocrine: The patient denies thyroid disorders, denies diabetes, and denies hormonal problems. Hematologic: The patient denies a history of bruising, denies bleeding, and denies anemia, denies blood clots. Infections: The patient denies a history of measles and mu (more content not included)... [facility] 01-25-2023 History of Present illness Narrative HISTORY AND PHYSICAL Deniz Kumar 1935 REFERRING PHYSICIAN: No ref. provider found CHIEF COMPLAINT: Consult (Hernia repair) HPI: The patient is a 87 year old male presents with recurrent umbilical hernia He is s/p repair 09/21/2022. He admits to gaining several pounds since surgery. He has a protuberant abdomen with truncal obesity. He has noted this for the past 2-3 weeks. He denies cigarettes use. He notes intermittent tenderness in the area. 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 Rivera COLONOSCOPY FLX DX W/COLLJ SPEC WHEN PFRMD 03/2004 Colonoscopy TONSILLECTOMY & ADENOIDECTOMY <AGE 13 1941 UMBILICAL HERNIA REPAIR 5 OR OLDER 09/21/2021 Current Outpatient Medications Medication Sig finasteride (PROSCAR) 5 mg tablet Take 1 tablet by mouth once daily. hydroCHLOROthiazide (HYDRODIURIL, ESIDRIX) 12.5 mg capsule Take 1 capsule by mouth once daily. pravastatin (PRAVACHOL) 10 mg tablet Take 1 tablet by mouth once daily. doxazosin (CARDURA) 1 mg tablet Take 1 tablet by mouth once daily. lisinopril (ZESTRIL, PRINIVIL) 20 mg tablet Take 1 tablet by mouth once daily. Lactobacillus acidophilus (PROBIOTIC) 10 billion cell cap Take by mouth. LOW-DOSE ASPIRIN ORAL Take 81 mg by mouth twice daily. Melatonin 5 mg cap Take 5 mg by mouth daily at bedtime. MULTIVITAMIN TAB Take one(1) tablet daily. No current facility-administered medications for this visit. ALLERGIES: Clearasil Maximum Strength PERSONAL HISTORY: Social History Tobacco Use Smoking status: Former Packs/day: 0.50 Years: 5.00 Total pack years: 2.50 Types: Cigarettes, Pipe Smokeless tobacco: Never Vaping Use Vaping Use: Never used Substance Use Topics Alcohol use: Yes Alcohol/week: 1.0 standard drink of alcohol Types: 1 Cans of beer per week Comment: or less. Drug use: Not Currently Types: Marijuana FAMILY HISTORY Problem Relation Age of Onset Prostate Cancer Father metastatic prostate Cancer Mother liver Hypertension Sister Lipids Sister The review of systems data was entered by the nurse and reviewed by md Nursing Notes: Fernanda Carmichael LPN 01/25/2023 3:09 PM Signed REVIEW OF SYSTEMS: General: The patient denies fatigue, denies weight loss, denies weight gain, denies feeling hot, and denies feelings of cold. Eyes: The patient denies glaucoma, denies eye injury/surgery, wears glasses or contacts. Ear/Nose/Throat: The patient NOTES allergies, denies hayfever, denies ear infections, and denies bloody noses. Cardiovascular: The patient denies chest pain, denies heart disease, NOTES high blood pressure,denies cardiac stent, denies prior heart attack, denies irregular heart beat, denies high cholesterol, denies poor circulation, denies heart failure, other cardiac issues, denies claudication, denies cold feet, denies peripheral arterial stent. Respiratory: The patient denies tuberculosis, denies pneumonia, denies frequent cough, denies pulmonary embolism, denies shortness of breath, and denies coughing up blood. Gastrointestinal: The patient denies difficulty swallowing, denies acid reflux, denies ulcers, denies vomiting, denies jaundice/hepatitis, denies gallbladder problems, denies black or tarry stools, denies hemorrhoids, denies bleeding from rectum, denies diverticulitis, NOTES constipation, denies diarrhea, denies loss of stool control, and NOTES hernias. Kidney/Bladder: The patient denies kidney stones, denies urine infections, and denies bloody urine. Skin: The patient denies a history of skin cancer, denies bleeding/changing moles, and denies a history of skin rash. Neurologic: The patient denies a history of epilepsy/convulsions, NOTES headaches, denies head/spinal injuries, and denies stroke/TIA. Psychiatric: The patient denies psychiatric medications, denies depression, and denies voices, denies substance abuse. Endocrine: The patient denies thyroid disorders, denies diabetes, and denies hormonal problems. Hematologic: The patient denies a history of bruising, denies bleeding, and denies anemia, denies blood clots. Infections: The patient denies a history of measles and mumps, denies rheumatic fever, and denies sexually transmitted diseases. Musculoskeletal: The patient denies back pain/injury, denies back problems, denies sciatica, denies knee/foot trouble, denies arthritis, or denies gout. When was patient's last Mammogram screening? N/A Last Colonoscopy: 2003 Fernanda Carmichael LPN PHYSICAL EXAMINATION: General: The patient is 87 year old male, well nourished, well hydrated in no acute distress. The patient is oriented to time, place, and person. VITALS: Blood pressure 132/80, pulse 91, temperature 36.7 C (98 F), height 182.9 cm (6'), weight 99.1 kg (218 lb 6.4 oz), SpO2 96 %. Body mass index is 29.62 kg/m . Head - Normocephalic. EOM intact with sclera clear and no icterus noted. Mouth with mucus membranes moist. Neck - supple with no jugular venous distention noted. Trachea is midline. Lungs - clear to auscultation. Normal breath sounds. No rales/rhonchi/wheezing noted. No labored breathing noted, such as retractions. No cough heard. Heart - normal S1 and S2 auscultated. No rubs/clicks/murmurs noted. Regular rate. Abdomen - soft and benign. Protuberant, rectus diastasis present. Umbilical hernia noted - reducible. Difficult to determine if any masses or organomegaly due to body habitus. Extremities - no calf tenderness noted. No pitting edema noted. Skin - normal skin integrity. Neurological - gait normal, no focal deficits noted. Psych - calm and appropriate Assessment IMPRESSION: recurrent umbilical hernia PLAN: I have discussed the above with the patient. I have offered umbilical hernia repair - redo. I have explained the procedure to the patient. I have counseled the patient as to the risks of the procedure, including but not limited to: infection, bleeding, injury to any blood vessels/nerves, scar tissue, injury to any intrabdominal organs, injury to bowel/bladder, intraabdominal abscess/bleeding, recurrence of hernia, wound infections, complications of anesthesia, etc. - the patient understands. I told to stop ASA for three days. The patient wishes to proceed. I have answered all questions to the patient s satisfaction and the patient has no further questions. I have confirmed and edited as necessary, the PFSH and ROS obtained by others. . Diagnoses: (K42.9) Recurrent umbilical hernia (primary encounter diagnosis) Return to Clinic: The patient will be scheduled for repair of recurrence umbilical hernia at [facility]. I spent a total of 21 minutes on the date of the service which included preparing to see the patient, [id number] patient care, obtaining oral medical history from the patient in this encounter, performing a medically appropriate examination, counseling and educating the patient/family/caregiver, and ordering and/or scheduling of medications/tests/procedures, and completing appropriate medical documentation. Su Ware MD documented in this encounter [facility] 01-25-2023 Nurse Note REVIEW OF SYSTEMS: General: The patient denies fatigue, denies weight loss, denies weight gain, denies feeling hot, and denies feelings of cold. Eyes: The patient denies glaucoma, denies eye injury/surgery, wears glasses or contacts. Ear/Nose/Throat: The patient NOTES allergies, denies hayfever, denies ear infections, and denies bloody noses. Cardiovascular: The patient denies chest pain, denies heart disease, NOTES high blood pressure,denies cardiac stent, denies prior heart attack, denies irregular heart beat, denies high cholesterol, denies poor circulation, denies heart failure, other cardiac issues, denies claudication, denies cold feet, denies peripheral arterial stent. Respiratory: The patient denies tuberculosis, denies pneumonia, denies frequent cough, denies pulmonary embolism, denies shortness of breath, and denies coughing up blood. Gastrointestinal: The patient denies difficulty swallowing, denies acid reflux, denies ulcers, denies vomiting, denies jaundice/hepatitis, denies gallbladder problems, denies black or tarry stools, denies hemorrhoids, denies bleeding from rectum, denies diverticulitis, NOTES constipation, denies diarrhea, denies loss of stool control, and NOTES hernias. Kidney/Bladder: The patient denies kidney stones, denies urine infections, and denies bloody urine. Skin: The patient denies a history of skin cancer, denies bleeding/changing moles, and denies a history of skin rash. Neurologic: The patient denies a history of epilepsy/convulsions, NOTES headaches, denies head/spinal injuries, and denies stroke/TIA. Psychiatric: The patient denies psychiatric medications, denies depression, and denies voices, denies substance abuse. Endocrine: The patient denies thyroid disorders, denies diabetes, and denies hormonal problems. Hematologic: The patient denies a history of bruising, denies bleeding, and denies anemia, denies blood clots. Infections: The patient denies a history of measles and mumps, denies rheumatic fever, and denies sexually transmitted diseases. Musculoskeletal: The patient denies back pain/injury, denies back problems, denies sciatica, denies knee/foot trouble, denies arthritis, or denies gout. When was patient's last Mammogram screening? N/A Last Colonoscopy: 2003 Fernanda Carmichael LPN documented in this encounter [facility] 01-04-2023 Note HNO ID: [id number] Author: Dorian Vernon PA-C Service: ? Author Type: Physician Architectural Drafting Instructor Type: Progress Notes Filed: 01/04/2023 9:26 AM Note Text: [facility] ESTABLISHED PATIENT CLINIC NOTE Some elements copied from his previous note, which have been updated where appropriate, and all reflect current medical decision making from date of this visit. SERVICE DATE: 01/04/2023 SERVICE TIME: 9:07 AM NAME: Deniz Kumar CHIEF COMPLAINT: 3 month follow up HISTORY OF PRESENT ILLNESS: Deniz Kumar is a 87 year old male an established patient following up for OAB and impotence The patient reports some improvement with minimal increase of water , he still admits to not drinking water as a prioroty And is trying, he also has Viagra and will call if he needs renewed. Otherwise he feels ok, and has Proscar and Cardura FLUIDS: still less that 20 oz water per day LUTS: DYSURIA: no URGENCY: Yes FREQUENCY:7 per day NOCTURIA: 2 per night STRAINING TO VOID: No EMPTIES COMPLETELY: Yes UTI: No GROSS HEMATURIA: no UA DIPSTICK POSITIVE ONLY: no Other symptoms: ED - yes LABS: Hematocrit (%) Date Value 02/01/2022 46.7 08/07/2021 45.5 07/21/2020 46.1 07/16/2019 48.8 10/29/2018 45.6 PSA (ng/mL) Date Value 01/26/2021 1.88 07/12/2016 1.00 01/22/2013 0.60 PSA Screening (ng/mL) Date Value 02/01/2022 0.83 No results found for: TESTOST PSA (ng/mL) Date Value 01/26/2021 1.88 07/12/2016 1.00 01/22/2013 0.60 PSA Screening (ng/mL) Date Value 02/01/2022 0.83 Creatinine Date Value Ref Range Status 08/09/2022 0.90 0.73 - 1.22 mg/dL Final 02/01/2022 0.92 0.73 - 1.22 mg/dL Final 08/07/2021 0.90 0.73 - 1.22 mg/dL Final 01/26/2021 0.95 0.73 - 1.22 mg/dL Final MEDICATIONS: finasteride (PROSCAR) 5 mg tablet Take 1 tablet by mouth once daily. hydroCHLOROthiazide (HYDRODIURIL, ESIDRIX) 12.5 mg capsule Take 1 capsule by mouth once daily. pravastatin (PRAVACHOL) 10 mg tablet Take 1 tablet by mouth once daily. doxazosin (CARDURA) 1 mg tablet Take 1 tablet by mouth once daily. lisinopril (ZESTRIL, PRINIVIL) 20 mg tablet Take 1 tablet by mouth once daily. LOW-DOSE ASPIRIN ORAL Take 81 mg by mouth twice daily. Melatonin 5 mg cap Take 5 mg by mouth daily at bedtime. MULTIVITAMIN TAB Take one(1) tablet daily. Lactobacillus acidophilus (PROBIOTIC) 10 billion cell cap Take by mouth. 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 Rivera COLONOSCOPY FLX DX W/COLLJ SPEC WHEN PFRMD 03/2004 Colonoscopy TONSILLECTOMY AND ADENOIDECTOMY UMBILICAL HERNIA REPAIR 5 OR OLDER 09/21/2021 FAMILY HISTORY: FAMILY HISTORY Problem Relation Age of Onset Prostate Cancer Father metastatic prostate Cancer Mother liver Hypertension Sister Lipids Sister SOCIAL HISTORY: Social Connections: Moderately Isolated Frequency of Communication with Friends and Family: More than three times a week Frequency of Social Gatherings with Friends and Family: Three times a week Attends Orthodoxy Services: Never Active Member of Clubs or Organizations: Yes Attends Club or Organization Meetings: More than 4 times per year Marital Status: Never REVIEW OF SYSTEMS: GENERAL: No fever, chills, weight loss, or fatigue. All other systems reviewed and are negative PHYSICAL EXAMINATION: Blood pressure 138/88, pulse 80, temperature 36.6 ?C (97.8 ?F), temperature source Temporal, resp. rate 12, height 182.9 cm (6'), weight 98.9 kg (218 lb), SpO2 95 %. GENERAL: WNL nutrition, no deformities, healthy appearing PROBLEM LIST REVIEW: Yes LABS: Results for orders placed or performed in visit on 01/04/23 UA DIP, URINE (POC) Result Value Ref Range GLUCOSE UA (POCT) Negative Negative mg/dL BILIRUBIN UA (POCT) Negative Negative KETONE UA (POCT) Negative Negative mg/dL SPECIFIC GRAVITY UA (POCT) 1.025 1.005 - 1.030 HEMOGLOBIN/BLOOD UA (POCT) Negative Negative PH UA (POCT) 5.5 4.5 - 8.0 PROTEIN UA (POCT) 30 (A) Negative mg/dL UROBILINOGEN UA (POCT) 0.2 Normal E.U./dL NITRITE UA (POCT) Negative Negative LEUKOCYTES UA (POCT) Negative Negative COLOR UA (POCT) Yellow WENDY (more content not included)... [facility] 01-04-2023 Note HNO ID: [id number] Author: Madison Camejo LPN Service: ? Author Type: ? Type: Progress Notes Filed: 01/04/2023 9:26 AM Note Text: Verified name and date of . CC Post Void Residual HPI: Deniz Kumar is a 87 year old male. The patient is here now for an appointment with Dorian Vernon, PETER, [place], PA-GREG. Procedure: Explained procedure to patient and verbalizes understanding. Performed a PVR. Patient urinated and instructed to empty bladder as much as possible just prior to having PVR done using bladder ultrasound scanner. Results of scan: 0 mL The patient tolerated the procedure well. Plan: Appointment with Dorian. [facility] 01-04-2023 History of Present illness Narrative Images from the original note were not included. [facility] ESTABLISHED PATIENT CLINIC NOTE Some elements copied from his previous note, which have been updated where appropriate, and all reflect current medical decision making from date of this visit. SERVICE DATE: 01/04/2023 SERVICE TIME: 9:07 AM NAME: Deniz Kumar CHIEF COMPLAINT: 3 month follow up HISTORY OF PRESENT ILLNESS: Deniz Kumar is a 87 year old male an established patient following up for OAB and impotence The patient reports some improvement with minimal increase of water , he still admits to not drinking water as a prioroty And is trying, he also has Viagra and will call if he needs renewed. Otherwise he feels ok, and has Proscar and Cardura FLUIDS: still less that 20 oz water per day LUTS: DYSURIA: no URGENCY: Yes FREQUENCY:7 per day NOCTURIA: 2 per night STRAINING TO VOID: No EMPTIES COMPLETELY: Yes UTI: No GROSS HEMATURIA: no UA DIPSTICK POSITIVE ONLY: no Other symptoms: ED - yes LABS: Hematocrit (%) Date Value 02/01/2022 46.7 08/07/2021 45.5 07/21/2020 46.1 07/16/2019 48.8 10/29/2018 45.6 PSA (ng/mL) Date Value 01/26/2021 1.88 07/12/2016 1.00 01/22/2013 0.60 PSA Screening (ng/mL) Date Value 02/01/2022 0.83 No results found for: TESTOST PSA (ng/mL) Date Value 01/26/2021 1.88 07/12/2016 1.00 01/22/2013 0.60 PSA Screening (ng/mL) Date Value 02/01/2022 0.83 Creatinine Date Value Ref Range Status 08/09/2022 0.90 0.73 - 1.22 mg/dL Final 02/01/2022 0.92 0.73 - 1.22 mg/dL Final 08/07/2021 0.90 0.73 - 1.22 mg/dL Final 01/26/2021 0.95 0.73 - 1.22 mg/dL Final MEDICATIONS: finasteride (PROSCAR) 5 mg tablet Take 1 tablet by mouth once daily. hydroCHLOROthiazide (HYDRODIURIL, ESIDRIX) 12.5 mg capsule Take 1 capsule by mouth once daily. pravastatin (PRAVACHOL) 10 mg tablet Take 1 tablet by mouth once daily. doxazosin (CARDURA) 1 mg tablet Take 1 tablet by mouth once daily. lisinopril (ZESTRIL, PRINIVIL) 20 mg tablet Take 1 tablet by mouth once daily. LOW-DOSE ASPIRIN ORAL Take 81 mg by mouth twice daily. Melatonin 5 mg cap Take 5 mg by mouth daily at bedtime. MULTIVITAMIN TAB Take one(1) tablet daily. Lactobacillus acidophilus (PROBIOTIC) 10 billion cell cap Take by mouth. 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 Rivera COLONOSCOPY FLX DX W/COLLJ SPEC WHEN PFRMD 03/2004 Colonoscopy TONSILLECTOMY & ADENOIDECTOMY <AGE 13 1941 UMBILICAL HERNIA REPAIR 5 OR OLDER 09/21/2021 FAMILY HISTORY: FAMILY HISTORY Problem Relation Age of Onset Prostate Cancer Father metastatic prostate Cancer Mother liver Hypertension Sister Lipids Sister SOCIAL HISTORY: Social Connections: Moderately Isolated Frequency of Communication with Friends and Family: More than three times a week Frequency of Social Gatherings with Friends and Family: Three times a week Attends Orthodoxy Services: Never Active Member of Clubs or Organizations: Yes Attends Club or Organization Meetings: More than 4 times per year Marital Status: Never REVIEW OF SYSTEMS: GENERAL: No fever, chills, weight loss, or fatigue. All other systems reviewed and are negative PHYSICAL EXAMINATION: Blood pressure 138/88, pulse 80, temperature 36.6 C (97.8 F), temperature source Temporal, resp. rate 12, height 182.9 cm (6'), weight 98.9 kg (218 lb), SpO2 95 %. GENERAL: WNL nutrition, no deformities, healthy appearing PROBLEM LIST REVIEW: Yes LABS: Results for orders placed or performed in visit on 01/04/23 UA DIP, URINE (POC) Result Value Ref Range GLUCOSE UA (POCT) Negative Negative mg/dL BILIRUBIN UA (POCT) Negative Negative KETONE UA (POCT) Negative Negative mg/dL SPECIFIC GRAVITY UA (POCT) 1.025 1.005 - 1.030 HEMOGLOBIN/BLOOD UA (POCT) Negative Negative PH UA (POCT) 5.5 4.5 - 8.0 PROTEIN UA (POCT) 30 (A) Negative mg/dL UROBILINOGEN UA (POCT) 0.2 Normal E.U./dL NITRITE UA (POCT) Negative Negative LEUKOCYTES UA (POCT) Negative Negative COLOR UA (POCT) Yellow CLARITY UA (POCT) Clear PROCEDURES: PVR: 0 ml IMPRESSION/PLAN: 87 year old male with 1. OAB (overactive bladder) - ICD9: 596.51, ICD10: N32.81 (primary diagnosis) 2. Benign prostatic hyperplasia with urinary obstruction - ICD9: 600.01, 599.69, ICD10: N40.1, N13.8 > Continue to increase water intake to 64 oz > continue Proscar and Cardura > 1 year Appt w/ PETER Blue [place], PA-C for annual follow-up and refills. PETER Tinoco [place], PA-C Verified name and date of . CC Post Void Residual HPI: Deniz Kumar is a 87 year old male. The patient is here now for an appointment with PETER Tinoco, JAX, PA-GREG. Procedure: Explained procedure to patient and verbalizes understanding. Performed a PVR. Patient urinated and instructed to empty bladder as much as possible just prior to having PVR done using bladder ultrasound scanner. Results of scan: 0 mL The patient tolerated the procedure well. Plan: Appointment with Dorian. documented in this encounter [facility] 09-25-2022 Note HNO ID: [id number] Author: Shannon Fuentes LPN Service: ? Author Type: ? Type: Progress Notes Filed: 09/25/2022 1:57 PM Note Text: Phone call placed [facility] apoke to Carol ramirez scheduled 09/25/2022 at 1:50, patient notified with visit. Shannon Fuentes LPN [facility] 09-25-2022 Note HNO ID: [id number] Author: Hyun Major APRN.KEVYN Service: ? Author Type: Nurse Practitioner Type: Progress Notes Filed: 09/25/2022 1:57 PM Note Text: Subjective The history is provided by the patient. No senior energy consultant was used. HPI Deniz Kumar is a 87 year old male who presents today for CC of left eye redness this started in the past day. He denies any foreign body, no runny nose cough, congestion, fever. He has not used any medications or drops. Denies any pain in eye, loss of vision or change, no floaters, curtain veiling or loss of vision in the periphery. BP 128/84 Pulse 88 Temp 36.7 ?C (98 ?F) (Tympanic) Resp 18 Wt 100.2 kg (221 lb) SpO2 96% BMI 29.97 kg/m? Social History Tobacco Use Smoking status: Former Packs/day: 0.50 Years: 5.00 Pack years: 2.50 Types: Cigarettes, Pipe Smokeless tobacco: Former Quit date: 07/01/1993 Tobacco comments: Quit 1993 (cig x 5 years and pipe x 20 years) Vaping Use Vaping Use: Never used Substance Use Topics Alcohol use: Yes Alcohol/week: 1.0 standard drink Types: 1 Cans of beer per week Comment: or less. 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 Eyes: Positive for redness. Negative for blurred vision, double vision, photophobia, pain and discharge. Musculoskeletal: Negative for joint pain and myalgias. Skin: Negative for itching and rash. All other systems reviewed and are negative. Objective Physical Exam Vitals and nursing note reviewed. HENT: Head: Normocephalic and atraumatic. Right Ear: Tympanic membrane, ear canal and external ear normal. Left Ear: Tympanic membrane, ear canal and external ear normal. Nose: Nose normal. Mouth/Throat: Pharynx: Oropharynx is clear. No posterior oropharyngeal erythema. Eyes: General: Lids are normal. Lids are everted, no foreign bodies appreciated. Vision grossly intact. Comments: Cicular area of left eye reddened, no drainage, appears to be subconjunctival hemorrhage. Globes are firm but not hard. Upper and lower lids were everted. There is no evidence of injury or foreign material. No hyphema is present. There is no evidence of periorbital cellulitis. There are no temporal, pulsatile masses. Flourescein stain was instilled into the left eye and a Wood's Lamp exam performed. There was no uptake. Pulmonary: Effort: Pulmonary effort is normal. Skin: General: Skin is warm and dry. Neurological: Mental Status: He is alert and oriented to person, place, and time. Psychiatric: Mood and Affect: Affect normal. ASSESSMENT/PLAN: 1. Eye problem - ICD9: V41.1, ICD10: H57.9 Appears to be subconjunctival hemorrhage. Appointment scheduled tomorrow at [address] Rivera at [facility], who is his established opthamologist Diagnosis and treatment plan were discussed and questions were answered to the patient's satisfaction. Pt acknowledged understanding of concepts and follow up plan. Specific signs and symptoms that would indicate the need for higher level of care were discussed in detail warranting prompt ER evaluation. Hyun Major APRN.CNP [facility] 09-25-2022 Instructions Hyun Major APRN.CNP - 09/25/2022 1:38 PM EDT Appears to be subconjunctival hemorrhage - however would like to have you be re-evaluated tomorrow with Dr. Rivera Appointment at [facility] 09.26.2022 @ 1:50 PM Go to ER for any sudden loss of vision or severe vision changes. documented in this encounter [facility] 09-25-2022 History of Present illness Narrative Phone call placed [facility] apoke to Carol ramirez scheduled 09/25/2022 at 1:50, patient notified with visit. Shannon Fuentes LPN Images from the original note were not included. Subjective The history is provided by the patient. No senior energy consultant was used. HPI Deniz Kumar is a 87 year old male who presents today for CC of left eye redness this started in the past day. He denies any foreign body, no runny nose cough, congestion, fever. He has not used any medications or drops. Denies any pain in eye, loss of vision or change, no floaters, curtain veiling or loss of vision in the periphery. BP 128/84 Pulse 88 Temp 36.7 C (98 F) (Tympanic) Resp 18 Wt 100.2 kg (221 lb) SpO2 96% BMI 29.97 kg/m Social History Tobacco Use Smoking status: Former Packs/day: 0.50 Years: 5.00 Pack years: 2.50 Types: Cigarettes, Pipe Smokeless tobacco: Former Quit date: 07/01/1993 Tobacco comments: Quit 1993 (cig x 5 years and pipe x 20 years) Vaping Use Vaping Use: Never used Substance Use Topics Alcohol use: Yes Alcohol/week: 1.0 standard drink Types: 1 Cans of beer per week Comment: or less. 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 Eyes: Positive for redness. Negative for blurred vision, double vision, photophobia, pain and discharge. Musculoskeletal: Negative for joint pain and myalgias. Skin: Negative for itching and rash. All other systems reviewed and are negative. Objective Physical Exam Vitals and nursing note reviewed. HENT: Head: Normocephalic and atraumatic. Right Ear: Tympanic membrane, ear canal and external ear normal. Left Ear: Tympanic membrane, ear canal and external ear normal. Nose: Nose normal. Mouth/Throat: Pharynx: Oropharynx is clear. No posterior oropharyngeal erythema. Eyes: General: Lids are normal. Lids are everted, no foreign bodies appreciated. Vision grossly intact. Comments: Cicular area of left eye reddened, no drainage, appears to be subconjunctival hemorrhage. Globes are firm but not hard. Upper and lower lids were everted. There is no evidence of injury or foreign material. No hyphema is present. There is no evidence of periorbital cellulitis. There are no temporal, pulsatile masses. Flourescein stain was instilled into the left eye and a Wood's Lamp exam performed. There was no uptake. Pulmonary: Effort: Pulmonary effort is normal. Skin: General: Skin is warm and dry. Neurological: Mental Status: He is alert and oriented to person, place, and time. Psychiatric: Mood and Affect: Affect normal. ASSESSMENT/PLAN: 1. Eye problem - ICD9: V41.1, ICD10: H57.9 Appears to be subconjunctival hemorrhage. Appointment scheduled tomorrow at [address] Rivera at [facility], who is his established opthamologist Diagnosis and treatment plan were discussed and questions were answered to the patient's satisfaction. Pt acknowledged understanding of concepts and follow up plan. Specific signs and symptoms that would indicate the need for higher level of care were discussed in detail warranting prompt ER evaluation. Hyun Major APRN.CNP documented in this encounter [facility] 08-31-2022 Note HNO ID: [id number] Author: Dorian Vernon PA-C Service: ? Author Type: Physician Architectural Drafting Instructor Type: Progress Notes Filed: 08/31/2022 10:49 AM Note Text: [facility] NEW CONSULT PATIENT CLINIC NOTE SERVICE DATE: 08/31/2022 SERVICE TIME: 8:57 AM NAME: Deniz Kumar Consultation requested by Vadim Vega MD for an opinion regarding Difficulty with Urination AND Impotence My final recommendations communicated back to the requesting physician by way of our shared Medical record. CHIEF COMPLAINT: Difficulty with Urination AND Impotence HISTORY OF PRESENT ILLNESS: Deniz Kumar is a 87 year old male with PMH including HTN AND Diverticulosis presenting for New Patient Consult for Difficulty with Urination AND Impotence The patient reports he is having urgency and frequency of urination , Nocturia x2 and post-void drip. I discussed and reviewed his tests and findings He has PVR - 0 ml and UA that is negative except low pH and high SG We discussed the common causes of urinary frequency and urgency, and restricting water intake In hopes to mitigate the need to urinate, we discussed how this behavior more often worsen the problem not improving it, we discussed increasing daily water intake to 64-84 oz 7a -7p and try to reduce bladder irritants, caffeine, alcohol and acid foods and drink. Bladder irritants discussed FLUIDS: 8-12 of water daily CAFFEINE: 2 -3 cups of coffee LUTS: DYSURIA: no URGENCY: Yes FREQUENCY:5 per day NOCTURIA: 2 per night STRAINING TO VOID: No EMPTIES COMPLETELY: Yes UTI: No GROSS HEMATURIA: no UA DIPSTICK POSITIVE ONLY: no Other symptoms: ED - yes Previous ED medications: yes Failed Viagra AND Cialis offered IC Injections he will think about it LABS: No results found for: TESTOST No results found for: TESTFREE PSA (ng/mL) Date Value 01/26/2021 1.88 07/12/2016 1.00 01/22/2013 0.60 PSA Screening (ng/mL) Date Value 02/01/2022 0.83 Hematocrit (%) Date Value 02/01/2022 46.7 08/07/2021 45.5 07/21/2020 46.1 07/16/2019 48.8 PSA (ng/mL) Date Value 01/26/2021 1.88 07/12/2016 1.00 01/22/2013 0.60 PSA Screening (ng/mL) Date Value 02/01/2022 0.83 Creatinine Date Value Ref Range Status 08/09/2022 0.90 0.73 - 1.22 mg/dL Final 02/01/2022 0.92 0.73 - 1.22 mg/dL Final 08/07/2021 0.90 0.73 - 1.22 mg/dL Final 01/26/2021 0.95 0.73 - 1.22 mg/dL Final MEDICATIONS: finasteride (PROSCAR) 5 mg tablet Take 1 tablet by mouth once daily. hydroCHLOROthiazide (HYDRODIURIL, ESIDRIX) 12.5 mg capsule Take 1 capsule by mouth once daily. pravastatin (PRAVACHOL) 10 mg tablet Take 1 tablet by mouth once daily. doxazosin (CARDURA) 1 mg tablet Take 1 tablet by mouth once daily. lisinopril (ZESTRIL, PRINIVIL) 20 mg tablet Take 1 tablet by mouth once daily. LOW-DOSE ASPIRIN ORAL Take 81 mg by mouth twice daily. Melatonin 5 mg cap Take 5 mg by mouth daily at bedtime. MULTIVITAMIN TAB Take one(1) tablet daily. Lactobacillus acidophilus (PROBIOTIC) 10 billion cell cap Take by mouth. (Patient not taking: Reported on 08/31/2022) PAST MEDICAL HISTORY: PAST MEDICAL HISTORY Diagnosis Date Benign prostatic hyperplasia with urinary obstruction Brain TIA 11/03/2018 Chronic nonallergic rhinitis 07/12/2016 Diverticulosis of colon (without mention of hemorrhage) Erectile dysfunction, unspecified erectile dysfunction type Essential hypertension 02/22/2006 Hypertrophy of prostate with urinary obstruction and other lower urinary tract symptoms (LUTS) Internal hemorrhoids without mention of complication Pure hypercholesterolemia Thrombocytopenia, unspecified (HCC) 2017 PAST SURGICAL HISTORY: PAST SURGICAL HISTORY Procedure Laterality Date CATARACT EXTRACTION W/ INTRAOCULAR LENS IMPLANT HX Left 03/2019 Dr. Rivera COLONOSCOPY FLX DX W/COLLJ SPEC WHEN PFRMD 03/2004 Colonoscopy TONSILLECTOMY AND ADENOIDECTOMY UMBILICAL HERNIA REPAIR 5 OR OLDER 09/21/2021 FAMILY HISTORY: FAMILY HISTORY Problem Relation Age of Onset Prostate Cancer Father metastatic prostate Cancer Mother liver Hypertension Sister Lipids Sister SOCIAL HISTORY: Social Connections: Moderately Isolated Frequency of Communication with Friends and Family: More than three times a week Frequency of Social Gatherings with Friends and Family: Three times a week Attends Orthodoxy Services: Never Active Member of Clubs or Organizations: Yes Attends Club or Organization Meetings: More than 4 times per year Marital Status: Never REVIEW OF SYSTEMS: GENERAL: No fever, chills, weight loss, or fatigue. ENMT: Negative CARDIOVASCULAR:NO CHEST PAIN, PALPITATIONS, ANKLE EDEMA RESPIRATORY: No chronic cough, wheezing, dyspnea, hemoptysis. GENITOURINARY: SEE HPI MUSCULOSKELETAL:NO CHRONIC BACK PAIN, ARTHRITIS, CHRONIC NECK PAIN SKIN: NO VARICOSE VEINS, (more content not included)... [facility] 08-31-2022 Note HNO ID: [id number] Author: Madison Camejo LPN Service: ? Author Type: ? Type: Progress Notes Filed: 08/31/2022 10:49 AM Note Text: Verified name and date of . CC Post Void Residual HPI: Deniz Kumar is a 87 year old male. The patient is here now for an appointment with PETER Tinoco, JAX, GWEN. Procedure: Explained procedure to patient and verbalizes understanding. Performed a PVR. Patient urinated and instructed to empty bladder as much as possible just prior to having PVR done using bladder ultrasound scanner. Results of scan: 0 mL The patient tolerated the procedure well. Plan: Appointment with Dorian. [facility] 08-31-2022 Instructions Dorian Vernon PA-C - 08/31/2022 9:32 AM EST Follow up 3 month with PETER Blue [place], PA-C for follow-up on OAB documented in this encounter [facility] 08-31-2022 History of Present illness Narrative Images from the original note were not included. [facility] NEW CONSULT PATIENT CLINIC NOTE SERVICE DATE: 08/31/2022 SERVICE TIME: 8:57 AM NAME: Deniz Kumar Consultation requested by Vadim Vega MD for an opinion regarding Difficulty with Urination & Impotence My final recommendations communicated back to the requesting physician by way of our shared Medical record. CHIEF COMPLAINT: Difficulty with Urination & Impotence HISTORY OF PRESENT ILLNESS: Deniz Kumar is a 87 year old male with PMH including HTN & Diverticulosis presenting for New Patient Consult for Difficulty with Urination & Impotence The patient reports he is having urgency and frequency of urination , Nocturia x2 and post-void drip. I discussed and reviewed his tests and findings He has PVR - 0 ml and UA that is negative except low pH and high SG We discussed the common causes of urinary frequency and urgency, and restricting water intake In hopes to mitigate the need to urinate, we discussed how this behavior more often worsen the problem not improving it, we discussed increasing daily water intake to 64-84 oz 7a -7p and try to reduce bladder irritants, caffeine, alcohol and acid foods and drink. Bladder irritants discussed FLUIDS: 8-12 of water daily CAFFEINE: 2 -3 cups of coffee LUTS: DYSURIA: no URGENCY: Yes FREQUENCY:5 per day NOCTURIA: 2 per night STRAINING TO VOID: No EMPTIES COMPLETELY: Yes UTI: No GROSS HEMATURIA: no UA DIPSTICK POSITIVE ONLY: no Other symptoms: ED - yes Previous ED medications: yes Failed Viagra & Cialis offered IC Injections he will think about it LABS: No results found for: TESTOST No results found for: TESTFREE PSA (ng/mL) Date Value 01/26/2021 1.88 07/12/2016 1.00 01/22/2013 0.60 PSA Screening (ng/mL) Date Value 02/01/2022 0.83 Hematocrit (%) Date Value 02/01/2022 46.7 08/07/2021 45.5 07/21/2020 46.1 07/16/2019 48.8 PSA (ng/mL) Date Value 01/26/2021 1.88 07/12/2016 1.00 01/22/2013 0.60 PSA Screening (ng/mL) Date Value 02/01/2022 0.83 Creatinine Date Value Ref Range Status 08/09/2022 0.90 0.73 - 1.22 mg/dL Final 02/01/2022 0.92 0.73 - 1.22 mg/dL Final 08/07/2021 0.90 0.73 - 1.22 mg/dL Final 01/26/2021 0.95 0.73 - 1.22 mg/dL Final MEDICATIONS: finasteride (PROSCAR) 5 mg tablet Take 1 tablet by mouth once daily. hydroCHLOROthiazide (HYDRODIURIL, ESIDRIX) 12.5 mg capsule Take 1 capsule by mouth once daily. pravastatin (PRAVACHOL) 10 mg tablet Take 1 tablet by mouth once daily. doxazosin (CARDURA) 1 mg tablet Take 1 tablet by mouth once daily. lisinopril (ZESTRIL, PRINIVIL) 20 mg tablet Take 1 tablet by mouth once daily. LOW-DOSE ASPIRIN ORAL Take 81 mg by mouth twice daily. Melatonin 5 mg cap Take 5 mg by mouth daily at bedtime. MULTIVITAMIN TAB Take one(1) tablet daily. Lactobacillus acidophilus (PROBIOTIC) 10 billion cell cap Take by mouth. (Patient not taking: Reported on 08/31/2022) PAST MEDICAL HISTORY: PAST MEDICAL HISTORY Diagnosis Date Benign prostatic hyperplasia with urinary obstruction Brain TIA 11/03/2018 Chronic nonallergic rhinitis 07/12/2016 Diverticulosis of colon (without mention of hemorrhage) Erectile dysfunction, unspecified erectile dysfunction type Essential hypertension 02/22/2006 Hypertrophy of prostate with urinary obstruction and other lower urinary tract symptoms (LUTS) Internal hemorrhoids without mention of complication Pure hypercholesterolemia Thrombocytopenia, unspecified (HCC) 2017 PAST SURGICAL HISTORY: PAST SURGICAL HISTORY Procedure Laterality Date CATARACT EXTRACTION W/ INTRAOCULAR LENS IMPLANT HX Left 03/2019 Dr. Rivera COLONOSCOPY FLX DX W/COLLJ SPEC WHEN PFRMD 03/2004 Colonoscopy TONSILLECTOMY & ADENOIDECTOMY <AGE 13 1941 UMBILICAL HERNIA REPAIR 5 OR OLDER 09/21/2021 FAMILY HISTORY: FAMILY HISTORY Problem Relation Age of Onset Prostate Cancer Father metastatic prostate Cancer Mother liver Hypertension Sister Lipids Sister SOCIAL HISTORY: Social Connections: Moderately Isolated Frequency of Communication with Friends and Family: More than three times a week Frequency of Social Gatherings with Friends and Family: Three times a week Attends Orthodoxy Services: Never Active Member of Clubs or Organizations: Yes Attends Club or Organization Meetings: More than 4 times per year Marital Status: Never REVIEW OF SYSTEMS: GENERAL: No fever, chills, weight loss, or fatigue. ENMT: Negative CARDIOVASCULAR:NO CHEST PAIN, PALPITATIONS, ANKLE EDEMA RESPIRATORY: No chronic cough, wheezing, dyspnea, hemoptysis. GENITOURINARY: SEE HPI MUSCULOSKELETAL:NO CHRONIC BACK PAIN, ARTHRITIS, CHRONIC NECK PAIN SKIN: NO VARICOSE VEINS, RASH, ABNORMAL ITCHING HEME/LYMPH/IMMUNE:Negative for prolonged bleeding, bruising easily or swollen nodes NEUROLOGICAL: NO HEADACHES, NUMBNESS, SEIZURES, STROKE DIABETES: no All other systems reviewed and are negative PHYSICAL EXAMINATION: Blood pressure 134/90, pulse 80, temperature 36.9 C (98.5 F), temperature source Temporal, resp. rate 14, height 182.9 cm (6'), weight 98.9 kg (218 lb), SpO2 95 %. GENERAL: WNL nutrition, no deformities, healthy appearing NEURO: Awake, alert and oriented x 3 and Normal gait PSYCH: No signs of depression, anxiety, or agitation ENMT (Ear, Nose, Mouth, Throat): No masses, adenopathy, icterus. Thyroid nonpalpable RESP: NL effort, no retractions or purse-lip breathing. CV: No extremity swelling, varices, edema, pallor, erythema GASTROINTESTINAL: Soft, nontender, nondistended, no masses. HERNIAS: None SKIN: No rash, lesions No palpable lymphadenopathy MUSCULOSKELETAL: Extremities normal. No deformities, edema, clubbing or skin discoloration. PROBLEM LIST REVIEW: Yes LABS: Results for orders placed or performed in visit on 08/31/22 UA DIP, URINE (POC) Result Value Ref Range GLUCOSE UA (POCT) Negative Negative mg/dL BILIRUBIN UA (POCT) Negative Negative KETONE UA (POCT) Negative Negative mg/dL SPECIFIC GRAVITY UA (POCT) 1.025 1.005 - 1.030 HEMOGLOBIN/BLOOD UA (POCT) Negative Negative PH UA (POCT) 5.5 4.5 - 8.0 PROTEIN UA (POCT) Negative Negative mg/dL UROBILINOGEN UA (POCT) 0.2 Normal E.U./dL NITRITE UA (POCT) Negative Negative LEUKOCYTES UA (POCT) Negative Negative COLOR UA (POCT) Yellow CLARITY UA (POCT) Clear PROCEDURES: PVR: 0 ml IMAGING: IMPRESSION/PLAN: 87 year old male with 1. OAB (overactive bladder) - ICD9: 596.51, ICD10: N32.81 (primary diagnosis) 2. Erectile dysfunction, unspecified erectile dysfunction type - ICD9: 607.84, ICD10: N52.9 3. Benign prostatic hyperplasia with urinary obstruction - ICD9: 600.01, 599.69, ICD10: N40.1, N13.8 > Increase water intake to 48 - 64 oz for LUTS > Will think about ED IC injection and decide if he wan to do teaching appt. > 3 mo. Appt w/ B. PETER Vernon MT, PA-C I spent a total of 40 minutes on the date of the service which included preparing to see the patient, face to face patient care, completing clinical documentation, obtaining and/or reviewing separately obtained history, performing a medically appropriate examination, counseling and educating the patient/family/caregiver, ordering medications, tests, or procedures, and care coordination. PETER Tinoco MT, PA-C Verified name and date of . CC Post Void Residual HPI: Deniz Kumar is a 87 year old male. The patient is here now for an appointment with PETER Tinoco MT, PA-COV. Procedure: Explained procedure to patient and verbalizes understanding. Performed a PVR. Patient urinated and instructed to empty bladder as much as possible just prior to having PVR done using bladder ultrasound scanner. Results of scan: 0 mL The patient tolerated the procedure well. Plan: Appointment with Dorian. documented in this encounter [facility] 08-16-2022 Note HNO ID: [id number] Author: Vadim Vega MD Service: ? Author Type: Physician Type: Progress Notes Filed: 08/16/2022 8:46 AM Note Text: This note was created using Grokr. Subjective Deniz Kumar is a 87 year old male. He was doing well in general. He was having more lower urinary tract symptoms on his regimen. He still wanted some assistance with erectile dysfunction. His hypertension and lipids were controlled. Myalgias resolved on this lower dose of pravastatin. Review of Systems Constitutional: Negative. Respiratory: Negative. Cardiovascular: Negative. Gastrointestinal: Negative. Genitourinary: Positive for decreased urine volume, difficulty urinating and urgency. Musculoskeletal: Negative. Neurological: Negative. Psychiatric/Behavioral: Negative. ACTIVE PROBLEM LIST Diverticulosis of Large Intestine Hyperlipidemia Essential Hypertension Benign Prostatic Hyperplasia With Urinary Obstruction Chronic Nonallergic Rhinitis Thrombocytopenia, Unspecified (Hcc) Erectile Dysfunction Obesity, Class II, Bmi 35-39.9 Urgency of Urination Current Outpatient Medications Medication Sig finasteride (PROSCAR) 5 mg tablet Take 1 tablet by mouth once daily. hydroCHLOROthiazide (HYDRODIURIL, ESIDRIX) 12.5 mg capsule Take 1 capsule by mouth once daily. pravastatin (PRAVACHOL) 10 mg tablet Take 1 tablet by mouth once daily. doxazosin (CARDURA) 1 mg tablet Take 1 tablet by mouth once daily. lisinopril (ZESTRIL, PRINIVIL) 20 mg tablet Take 1 tablet by mouth once daily. Lactobacillus acidophilus (PROBIOTIC) 10 billion cell cap Take by mouth. LOW-DOSE ASPIRIN ORAL Take 81 mg by mouth twice daily. Melatonin 5 mg cap Take 5 mg by mouth daily at bedtime. MULTIVITAMIN TAB Take one(1) tablet daily. No current facility-administered medications for this visit. Objective BP 118/72 (BP Site: Left Arm, BP Position: Sitting, BP Cuff Size: Large Adult) Pulse 72 Temp 36.2 ?C (97.2 ?F) (Temporal) Resp 12 Ht 182.9 cm (6') Wt 97.5 kg (215 lb) BMI 29.16 kg/m? Physical Exam Constitutional: General: He is not in acute distress. Appearance: He is ill-appearing. Cardiovascular: Rate and Rhythm: Normal rate and regular rhythm. Occasional Extrasystoles are present. Heart sounds: No murmur heard. No gallop. Pulmonary: Breath sounds: Normal breath sounds. Abdominal: Tenderness: There is no abdominal tenderness. Musculoskeletal: Right lower leg: No edema. Left lower leg: No edema. Neurological: General: No focal deficit present. Mental Status: He is alert. Gait: Gait normal. Psychiatric: Mood and Affect: Mood normal. Component Latest Ref Rng AND Units 08/09/2022 Glucose 74 - 99 mg/dL 93 BUN 9 - 24 mg/dL 28 (H) Creatinine 0.73 - 1.22 mg/dL 0.90 Sodium 136 - 144 mmol/L 141 Potassium 3.7 - 5.1 mmol/L 4.2 Chloride 97 - 105 mmol/L 103 CO2 22 - 30 mmol/L 29 Anion Gap 9 - 18 mmol/L 9 Calcium 8.5 - 10.2 mg/dL 8.9 eGFR >=60 mL/min/1.73mA? 83 Cholesterol, Total <200 mg/dL 150 Triglyceride <150 mg/dL 60 HDL Cholesterol >39 mg/dL 54 Non HDL Cholesterol <130 mg/dL 96 Fasting Time hrs 13 VLDL Cholesterol <30 mg/dL 12 TC:HDL Ratio <5.10 2.78 LDL Cholesterol <100 mg/dL 84 LDL:HDL Ratio <2.54 1.56 Assessment and Plan 1. Medicare annual wellness visit, subsequent - ICD9: V70.0, ICD10: Z00.00 (primary diagnosis) See other note. 2. Thrombocytopenia, unspecified (HCC) - ICD9: 287.5, ICD10: D69.6 Monitor. - CBC 3. Essential hypertension - ICD9: 401.9, ICD10: I10 - good control 4. Benign prostatic hyperplasia with urinary obstruction - ICD9: 600.01, 599.69, ICD10: N40.1, N13.8 Worse. - PSA/PROSTSPECAG SCRN - CONSULT TO UROLOGY 5. Hyperlipidemia, unspecified hyperlipidemia type - ICD9: 272.4, ICD10: E78.5 - good control - Continue current medication. - COMP METABOLIC PANEL - LIPID PANEL BASIC 6. Erectile dysfunction, unspecified erectile dysfunction type - ICD9: 607.84, ICD10: N52.9 - CONSULT TO UROLOGY Vadim Vega MD [facility] 08-16-2022 Note HNO ID: [id number] Author: Vadim Vega MD Service: ? Author Type: Physician Type: Progress Notes Filed: 08/16/2022 8:46 AM Note Text: Deniz Kumar is a 87 year old male here for a Medicare Subsequent Annual Wellness Visit Health Risk Assessment In general, health is: Very good Concerns with balance:Several days Concerns with teeth or dentures:Not at all Concerns with sexual function:More than half the days [place] anxious, stressed, angry, irritable, lonely, isolated, or had thoughts of hurting themself: Not at all Has little interest or pleasure in doing things: Not at all Bothered by feeling down, depressed, or hopeless: Not at all Needs help with grocery shopping, cooking, housework, bathing, grooming, dressing, eating, sitting or standing, walking, using the toilet, handling finances, taking medications, using the telephone, or driving: Yes Following safety precautions in the home environment and vehicle: removed throw rugs from floors, installed grab bars in the bathroom, handrails in stairwells, having adequate lighting, wearing seatbelt at all times?: Yes Smokes cigarettes, vapes, or chew tobacco: No Eats healthy foods including fruits, vegetables, whole grains, and fiber-rich foods: More than half the days Number of days per week engages in exercise: 2 days Average alcohol consumption: 2-3 times a week Current Providers Specialists: I have reviewed specialist-related care of the patient in the medical record. Current care team: Patient Care Team: Vadim Vega MD as PCP - General (Internal Medicine) Outside specialists seen: Dr. Rivera, ophthalmology. Medical/Family history review Reviewed and updated problem list, medical/surgical/family/social history, medications, and allergies. Opioid use review Patient is not currently using opioids. Depression screening Depression Screening PHQ-2 Score MALENA-2 Total Score 08/11/2021 1 - Depression screening tool completed and reviewed. Based on score and interview, patient is not at risk for depression. Screening tool discussed with patient, and I recommended no further intervention at this time. Cognitive screening Mini Cog Score: Score: 5 Cognitive screening reviewed and no further action needed (score 3-5) Functional Observation Was the patient's timed Up AND Go test unsteady or ? 12 seconds? No Advance Care Planning End of Life planning discussed, including patient's advanced directive wishes: Yes Copy needed. Measurements BP 118/72 Pulse 72 Temp (Src) 97.2 (Temporal) Resp 12 Ht 6' 0 (1.83m) Wt 215 lb (97.5kg) BMI 29.15 kg/(m2). Visual acuity (required for Welcome to Medicare): follows with optometry/ophthalmology and Right: 20/200 Left: 20/ 30 Both: 20/30 Hearing Evaluation: within normal limits Assessment/Plan - Counseled on healthy diet and regular exercise - Discussed need for and benefit of weight loss. BMI 29.16 kg/(m2) - Fall avoidance - Vaccines recommended Shingrix at pharmacy - Depression screening [facility] 08-16-2022 Instructions Vadim Vega MD - 08/16/2022 8:40 AM EST Have you ever planned for future healthcare decisions with a power of corporate attorney, living will, or advance directives? Yes. Have you shared those records with your doctor? No COPY PLEASE. Recombinant shingles vaccine (Shingrix) is recommended; 2 doses 2-6 months apart. Please read information, check with your insurance, and schedule vaccination at your local pharmacy. A prescription is not required. If you are certain you have coverage to receive this vaccine in the office, we can schedule this for you. documented in this encounter [facility] 08-16-2022 History of Present illness Narrative This note was created using Grokr. Subjective Deniz Kumar is a 87 year old male. He was doing well in general. He was having more lower urinary tract symptoms on his regimen. He still wanted some assistance with erectile dysfunction. His hypertension and lipids were controlled. Myalgias resolved on this lower dose of pravastatin. Review of Systems Constitutional: Negative. Respiratory: Negative. Cardiovascular: Negative. Gastrointestinal: Negative. Genitourinary: Positive for decreased urine volume, difficulty urinating and urgency. Musculoskeletal: Negative. Neurological: Negative. Psychiatric/Behavioral: Negative. ACTIVE PROBLEM LIST Diverticulosis of Large Intestine Hyperlipidemia Essential Hypertension Benign Prostatic Hyperplasia With Urinary Obstruction Chronic Nonallergic Rhinitis Thrombocytopenia, Unspecified (Hcc) Erectile Dysfunction Obesity, Class II, Bmi 35-39.9 Urgency of Urination Current Outpatient Medications Medication Sig finasteride (PROSCAR) 5 mg tablet Take 1 tablet by mouth once daily. hydroCHLOROthiazide (HYDRODIURIL, ESIDRIX) 12.5 mg capsule Take 1 capsule by mouth once daily. pravastatin (PRAVACHOL) 10 mg tablet Take 1 tablet by mouth once daily. doxazosin (CARDURA) 1 mg tablet Take 1 tablet by mouth once daily. lisinopril (ZESTRIL, PRINIVIL) 20 mg tablet Take 1 tablet by mouth once daily. Lactobacillus acidophilus (PROBIOTIC) 10 billion cell cap Take by mouth. LOW-DOSE ASPIRIN ORAL Take 81 mg by mouth twice daily. Melatonin 5 mg cap Take 5 mg by mouth daily at bedtime. MULTIVITAMIN TAB Take one(1) tablet daily. No current facility-administered medications for this visit. Objective BP 118/72 (BP Site: Left Arm, BP Position: Sitting, BP Cuff Size: Large Adult) Pulse 72 Temp 36.2 C (97.2 F) (Temporal) Resp 12 Ht 182.9 cm (6') Wt 97.5 kg (215 lb) BMI 29.16 kg/m Physical Exam Constitutional: General: He is not in acute distress. Appearance: He is ill-appearing. Cardiovascular: Rate and Rhythm: Normal rate and regular rhythm. Occasional Extrasystoles are present. Heart sounds: No murmur heard. No gallop. Pulmonary: Breath sounds: Normal breath sounds. Abdominal: Tenderness: There is no abdominal tenderness. Musculoskeletal: Right lower leg: No edema. Left lower leg: No edema. Neurological: General: No focal deficit present. Mental Status: He is alert. Gait: Gait normal. Psychiatric: Mood and Affect: Mood normal. Component Latest Ref Rng & Units 08/09/2022 Glucose 74 - 99 mg/dL 93 BUN 9 - 24 mg/dL 28 (H) Creatinine 0.73 - 1.22 mg/dL 0.90 Sodium 136 - 144 mmol/L 141 Potassium 3.7 - 5.1 mmol/L 4.2 Chloride 97 - 105 mmol/L 103 CO2 22 - 30 mmol/L 29 Anion Gap 9 - 18 mmol/L 9 Calcium 8.5 - 10.2 mg/dL 8.9 eGFR >=60 mL/min/1.73m 83 Cholesterol, Total <200 mg/dL 150 Triglyceride <150 mg/dL 60 HDL Cholesterol >39 mg/dL 54 Non HDL Cholesterol <130 mg/dL 96 Fasting Time hrs 13 VLDL Cholesterol <30 mg/dL 12 TC:HDL Ratio <5.10 2.78 LDL Cholesterol <100 mg/dL 84 LDL:HDL Ratio <2.54 1.56 Assessment and Plan 1. Medicare annual wellness visit, subsequent - ICD9: V70.0, ICD10: Z00.00 (primary diagnosis) See other note. 2. Thrombocytopenia, unspecified (HCC) - ICD9: 287.5, ICD10: D69.6 Monitor. - CBC 3. Essential hypertension - ICD9: 401.9, ICD10: I10 - good control 4. Benign prostatic hyperplasia with urinary obstruction - ICD9: 600.01, 599.69, ICD10: N40.1, N13.8 Worse. - PSA/PROSTSPECAG SCRN - CONSULT TO UROLOGY 5. Hyperlipidemia, unspecified hyperlipidemia type - ICD9: 272.4, ICD10: E78.5 - good control - Continue current medication. - COMP METABOLIC PANEL - LIPID PANEL BASIC 6. Erectile dysfunction, unspecified erectile dysfunction type - ICD9: 607.84, ICD10: N52.9 - CONSULT TO UROLOGY Vadim Vega MD Deniz Kumar is a 87 year old male here for a Medicare Subsequent Annual Wellness Visit Health Risk Assessment In general, health is: Very good Concerns with balance:Several days Concerns with teeth or dentures:Not at all Concerns with sexual function:More than half the days [place] anxious, stressed, angry, irritable, lonely, isolated, or had thoughts of hurting themself: Not at all Has little interest or pleasure in doing things: Not at all Bothered by feeling down, depressed, or hopeless: Not at all Needs help with grocery shopping, cooking, housework, bathing, grooming, dressing, eating, sitting or standing, walking, using the toilet, handling finances, taking medications, using the telephone, or driving: Yes Following safety precautions in the home environment and vehicle: removed throw rugs from floors, installed grab bars in the bathroom, handrails in stairwells, having adequate lighting, wearing seatbelt at all times?: Yes Smokes cigarettes, vapes, or chew tobacco: No Eats healthy foods including fruits, vegetables, whole grains, and fiber-rich foods: More than half the days Number of days per week engages in exercise: 2 days Average alcohol consumption: 2-3 times a week Current Providers Specialists: I have reviewed specialist-related care of the patient in the medical record. Current care team: Patient Care Team: Vadim Vega MD as PCP - General (Internal Medicine) Outside specialists seen: Dr. Rivera, ophthalmology. Medical/Family history review Reviewed and updated problem list, medical/surgical/family/social history, medications, and allergies. Opioid use review Patient is not currently using opioids. Depression screening Depression Screening PHQ-2 Score MALENA-2 Total Score 08/11/2021 1 - Depression screening tool completed and reviewed. Based on score and interview, patient is not at risk for depression. Screening tool discussed with patient, and I recommended no further intervention at this time. Cognitive screening Mini Cog Score: Score: 5 Cognitive screening reviewed and no further action needed (score 3-5) Functional Observation Was the patient's timed Up & Go test unsteady or ? 12 seconds? No Advance Care Planning End of Life planning discussed, including patient's advanced directive wishes: Yes Copy needed. Measurements BP 118/72 Pulse 72 Temp (Src) 97.2 (Temporal) Resp 12 Ht 6' 0 (1.83m) Wt 215 lb (97.5kg) BMI 29.15 kg/(m^2). Visual acuity (required for Welcome to Medicare): follows with optometry/ophthalmology and Right: 20/200 Left: 20/ 30 Both: 20/30 Hearing Evaluation: within normal limits Assessment/Plan - Counseled on healthy diet and regular exercise - Discussed need for and benefit of weight loss. BMI 29.16 kg/(m^2) - Fall avoidance - Vaccines recommended Shingrix at pharmacy - Depression screening documented in this encounter [facility] 08-03-2022 Miscellaneous Notes Patient has been identified by name and date of : Patient phones for refill(s): Requested Prescriptions Pending Prescriptions Disp Refills finasteride (PROSCAR) 5 mg tablet 90 tablet 3 Sig: Take 1 tablet by mouth once daily. hydroCHLOROthiazide (HYDRODIURIL, ESIDRIX) 12.5 mg capsule 90 capsule 3 Sig: Take 1 capsule by mouth once daily. Date of last office visit in primary care: 02/08/2022, has appt 08/16/2022 Last 2 Encounter Wt Readings: Date: Wt: 05/04/2022 96.9 kg (213 lb 9.6 oz) 03/05/2022 97.7 kg (215 lb 6.4 oz) Previous labs/tests for medication: Blood Pressure: BUN (mg/dL) Date Value 02/01/2022 26 08/07/2021 26 Sodium (mmol/L) Date Value 02/01/2022 139 08/07/2021 139 Last 1 Encounter BP Readings: Date: BP: 05/04/2022 126/78 Please advise. Thank you. Cary Andre LPN documented in this encounter [facility] 05-05-2022 Miscellaneous Notes Pt was notified of the results. Pt verbalized understanding. Angélica San MA Please notify that covid. Continue with plan of care as discussed during visit. documented in this encounter [facility] 05-04-2022 Note HNO ID: [id number] Author: Susan Corado PA-C Service: ? Author Type: Physician Architectural Drafting Instructor Type: Progress Notes Filed: 05/04/2022 9:50 AM Note Text: This note was created using NoteWriter. Subjective Deniz Kumar is a 86 year old male. HPI Patient presents with an exposure to COVID. He states his friend called him and told him that he tested positive for COVID. The patient is not having any symptoms. No fever, chills, headache, sore throat, congestion, body aches or chills. No vomiting or diarrhea. He has not had COVID previously. He is fully vaccinated. Review of Systems Constitutional: Negative. HENT: Negative. Respiratory: Negative. Cardiovascular: Negative. Gastrointestinal: Negative. Genitourinary: Negative. Musculoskeletal: Negative. All other systems reviewed and are negative. 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 90 tablet 3 doxazosin (CARDURA) 1 mg tablet Take 1 tablet by mouth once daily. 90 tablet 3 lisinopril (ZESTRIL, PRINIVIL) 20 mg tablet Take 1 tablet by mouth once daily. 90 tablet 3 Lactobacillus acidophilus (PROBIOTIC) 10 billion cell cap Take by mouth. hydroCHLOROthiazide 12.5 mg capsule Take 1 capsule by mouth once daily. 90 capsule 3 finasteride (PROSCAR) 5 mg tablet Take 1 tablet by mouth once daily. 90 tablet 3 LOW-DOSE ASPIRIN ORAL Take 81 mg by mouth twice daily. Melatonin 5 mg cap Take 5 mg by mouth daily at bedtime. MULTIVITAMIN TAB Take one(1) tablet daily. 0 No current facility-administered medications for this visit. PAST SURGICAL HISTORY Procedure Laterality Date CATARACT EXTRACTION W/ INTRAOCULAR LENS IMPLANT HX Left 03/2019 Dr. Rivera COLONOSCOPY FLX DX W/COLLJ SPEC WHEN PFRMD 03/2004 Colonoscopy TONSILLECTOMY AND ADENOIDECTOMY UMBILICAL HERNIA REPAIR 5 OR OLDER 09/21/2021 FAMILY HISTORY Problem Relation Age of Onset Prostate Cancer Father metastatic prostate Cancer Mother liver Hypertension Sister Lipids Sister Social History Tobacco Use Smoking status: Former Packs/day: 0.50 Years: 5.00 Pack years: 2.50 Types: Cigarettes, Pipe Smokeless tobacco: Former Quit date: 07/01/1993 Tobacco comments: Quit 1993 (cig x 5 years and pipe x 20 years) Vaping Use Vaping Use: Never used Substance Use Topics Alcohol use: Yes Alcohol/week: 2.5 standard drinks Types: 1 Glasses of Wine (5oz) per week Comment: or less. Drug use: No Objective BP 126/78 Pulse 72 Temp 36.4 ?C (97.6 ?F) Resp 16 Wt 96.9 kg (213 lb 9.6 oz) SpO2 98% BMI 28.97 kg/m? Physical Exam Vitals reviewed. Constitutional: General: He is not in acute distress. Appearance: Normal appearance. He is not ill-appearing. HENT: Head: Normocephalic and atraumatic. Cardiovascular: Rate and Rhythm: Normal rate and regular rhythm. Heart sounds: Normal heart sounds. Pulmonary: Effort: Pulmonary effort is normal. Breath sounds: Normal breath sounds. Skin: General: Skin is warm and dry. Neurological: General: No focal deficit present. Mental Status: He is alert. Assessment and Plan ASSESSMENT/PLAN: 1. Exposure to COVID-19 virus - ICD9: V01.79, ICD10: Z20.822 If positive I would recommend oral antivirals. Discussed supportive care and quarantine. Patient agreeable with plan - ASYMPTOMATIC ELECTIVE COVID-19 Susan Corado PA-C [facility] 05-04-2022 History of Present illness Narrative This note was created using QuaDPharmater. Subjective Deniz Kumar is a 86 year old male. HPI Patient presents with an exposure to COVID. He states his friend called him and told him that he tested positive for COVID. The patient is not having any symptoms. No fever, chills, headache, sore throat, congestion, body aches or chills. No vomiting or diarrhea. He has not had COVID previously. He is fully vaccinated. Review of Systems Constitutional: Negative. HENT: Negative. Respiratory: Negative. Cardiovascular: Negative. Gastrointestinal: Negative. Genitourinary: Negative. Musculoskeletal: Negative. All other systems reviewed and are negative. 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 90 tablet 3 doxazosin (CARDURA) 1 mg tablet Take 1 tablet by mouth once daily. 90 tablet 3 lisinopril (ZESTRIL, PRINIVIL) 20 mg tablet Take 1 tablet by mouth once daily. 90 tablet 3 Lactobacillus acidophilus (PROBIOTIC) 10 billion cell cap Take by mouth. hydroCHLOROthiazide 12.5 mg capsule Take 1 capsule by mouth once daily. 90 capsule 3 finasteride (PROSCAR) 5 mg tablet Take 1 tablet by mouth once daily. 90 tablet 3 LOW-DOSE ASPIRIN ORAL Take 81 mg by mouth twice daily. Melatonin 5 mg cap Take 5 mg by mouth daily at bedtime. MULTIVITAMIN TAB Take one(1) tablet daily. 0 No current facility-administered medications for this visit. PAST SURGICAL HISTORY Procedure Laterality Date CATARACT EXTRACTION W/ INTRAOCULAR LENS IMPLANT HX Left 03/2019 Dr. Rivera COLONOSCOPY FLX DX W/COLLJ SPEC WHEN PFRMD 03/2004 Colonoscopy TONSILLECTOMY & ADENOIDECTOMY <AGE 13 1941 UMBILICAL HERNIA REPAIR 5 OR OLDER 09/21/2021 FAMILY HISTORY Problem Relation Age of Onset Prostate Cancer Father metastatic prostate Cancer Mother liver Hypertension Sister Lipids Sister Social History Tobacco Use Smoking status: Former Packs/day: 0.50 Years: 5.00 Pack years: 2.50 Types: Cigarettes, Pipe Smokeless tobacco: Former Quit date: 07/01/1993 Tobacco comments: Quit 1993 (cig x 5 years and pipe x 20 years) Vaping Use Vaping Use: Never used Substance Use Topics Alcohol use: Yes Alcohol/week: 2.5 standard drinks Types: 1 Glasses of Wine (5oz) per week Comment: or less. Drug use: No Objective BP 126/78 Pulse 72 Temp 36.4 C (97.6 F) Resp 16 Wt 96.9 kg (213 lb 9.6 oz) SpO2 98% BMI 28.97 kg/m Physical Exam Vitals reviewed. Constitutional: General: He is not in acute distress. Appearance: Normal appearance. He is not ill-appearing. HENT: Head: Normocephalic and atraumatic. Cardiovascular: Rate and Rhythm: Normal rate and regular rhythm. Heart sounds: Normal heart sounds. Pulmonary: Effort: Pulmonary effort is normal. Breath sounds: Normal breath sounds. Skin: General: Skin is warm and dry. Neurological: General: No focal deficit present. Mental Status: He is alert. Assessment and Plan ASSESSMENT/PLAN: 1. Exposure to COVID-19 virus - ICD9: V01.79, ICD10: Z20.822 If positive I would recommend oral antivirals. Discussed supportive care and quarantine. Patient agreeable with plan - ASYMPTOMATIC ELECTIVE COVID-19 Susan Corado PA-C documented in this encounter [facility] 03-05-2022 Note HNO ID: [id number] Author: Haylie Chin APRN.ELASTIC ATT[employer]ER [employer] Service: ? Author Type: Nurse Practitioner Type: Progress Notes Filed: 03/05/2022 9:46 AM Note Text: Subjective She came in with complaints of some type of pimple on the right side of his groin he said. It has been about 4 days. Does not seem to be getting worse. Denies any fevers nausea vomiting. Denies any other symptoms. The history is provided by the patient. No senior energy consultant was used. Review of Systems Constitutional: Negative. Skin: Negative. Objective Physical Exam Exam conducted with a foam gun operator present. Constitutional: Appearance: Normal appearance. Pulmonary: Effort: Pulmonary effort is normal. Genitourinary: Comments: Pea sized slight erythema and swelling noted. Firm to touch. No drainage noted. Neurological: Mental Status: He is alert. 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 Rivera COLONOSCOPY FLX DX W/COLLJ SPEC WHEN PFRMD 03/2004 Colonoscopy TONSILLECTOMY AND ADENOIDECTOMY UMBILICAL HERNIA REPAIR 5 OR OLDER 09/21/2021 ALLERGIES Clearasil Maximum Strength MEDICATIONS pravastatin (PRAVACHOL) 10 mg tablet Take 1 tablet by mouth once daily. doxazosin (CARDURA) 1 mg tablet Take 1 tablet by mouth once daily. lisinopril (ZESTRIL, PRINIVIL) 20 mg tablet Take 1 tablet by mouth once daily. hydroCHLOROthiazide 12.5 mg capsule Take 1 capsule by mouth once daily. finasteride (PROSCAR) 5 mg tablet Take 1 tablet by mouth once daily. LOW-DOSE ASPIRIN ORAL Take 81 mg by mouth twice daily. Melatonin 5 mg cap Take 5 mg by mouth daily at bedtime. MULTIVITAMIN TAB Take one(1) tablet daily. doxycycline monohydrate 100 mg tablet Take 1 tablet by mouth twice daily for 5 days. Lactobacillus acidophilus (PROBIOTIC) 10 billion cell cap Take by mouth. (Patient not taking: Reported on 02/08/2022) FAMILY HISTORY Problem Relation Age of Onset Prostate Cancer Father metastatic prostate Cancer Mother liver Hypertension Sister Lipids Sister Social History Tobacco Use Smoking status: Former Packs/day: 0.50 Years: 5.00 Pack years: 2.50 Types: Cigarettes, Pipe Smokeless tobacco: Former Quit date: 07/01/1993 Tobacco comments: Quit 1993 (cig x 5 years and pipe x 20 years) Vaping Use Vaping Use: Never used Substance Use Topics Alcohol use: Yes Alcohol/week: 2.5 standard drinks Types: 1 Glasses of Wine (5oz) per week Comment: or less. Drug use: No ASSESSMENT/PLAN: 1. Skin infection - ICD9: 686.9, ICD10: L08.9 Placed on doxycycline twice a day for 5 days. Educated about medication and supportive therapy will follow-up if signs and symptoms seem to be getting worse not better. Patient was okay with this care plan. Haylie Chin APRN.[facility] 03-05-2022 History of Present illness Narrative Images from the original note were not included. Subjective She came in with complaints of some type of pimple on the right side of his groin he said. It has been about 4 days. Does not seem to be getting worse. Denies any fevers nausea vomiting. Denies any other symptoms. The history is provided by the patient. No senior energy consultant was used. Review of Systems Constitutional: Negative. Skin: Negative. Objective Physical Exam Exam conducted with a foam gun operator present. Constitutional: Appearance: Normal appearance. Pulmonary: Effort: Pulmonary effort is normal. Genitourinary: Comments: Pea sized slight erythema and swelling noted. Firm to touch. No drainage noted. Neurological: Mental Status: He is alert. 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 Rivera COLONOSCOPY FLX DX W/COLLJ SPEC WHEN PFRMD 03/2004 Colonoscopy TONSILLECTOMY & ADENOIDECTOMY <AGE 13 1941 UMBILICAL HERNIA REPAIR 5 OR OLDER 09/21/2021 ALLERGIES Clearasil Maximum Strength MEDICATIONS pravastatin (PRAVACHOL) 10 mg tablet Take 1 tablet by mouth once daily. doxazosin (CARDURA) 1 mg tablet Take 1 tablet by mouth once daily. lisinopril (ZESTRIL, PRINIVIL) 20 mg tablet Take 1 tablet by mouth once daily. hydroCHLOROthiazide 12.5 mg capsule Take 1 capsule by mouth once daily. finasteride (PROSCAR) 5 mg tablet Take 1 tablet by mouth once daily. LOW-DOSE ASPIRIN ORAL Take 81 mg by mouth twice daily. Melatonin 5 mg cap Take 5 mg by mouth daily at bedtime. MULTIVITAMIN TAB Take one(1) tablet daily. doxycycline monohydrate 100 mg tablet Take 1 tablet by mouth twice daily for 5 days. Lactobacillus acidophilus (PROBIOTIC) 10 billion cell cap Take by mouth. (Patient not taking: Reported on 02/08/2022) FAMILY HISTORY Problem Relation Age of Onset Prostate Cancer Father metastatic prostate Cancer Mother liver Hypertension Sister Lipids Sister Social History Tobacco Use Smoking status: Former Packs/day: 0.50 Years: 5.00 Pack years: 2.50 Types: Cigarettes, Pipe Smokeless tobacco: Former Quit date: 07/01/1993 Tobacco comments: Quit 1993 (cig x 5 years and pipe x 20 years) Vaping Use Vaping Use: Never used Substance Use Topics Alcohol use: Yes Alcohol/week: 2.5 standard drinks Types: 1 Glasses of Wine (5oz) per week Comment: or less. Drug use: No ASSESSMENT/PLAN: 1. Skin infection - ICD9: 686.9, ICD10: L08.9 Placed on doxycycline twice a day for 5 days. Educated about medication and supportive therapy will follow-up if signs and symptoms seem to be getting worse not better. Patient was okay with this care plan. Haylie Chin APRN.[employer]AST[employer] documented in this encounter [facility] 02-08-2022 Instructions Vadim Vega MD - 02/08/2022 9:26 AM EDT FASTING BLOOD WORK BEFORE August APPOINTMENT. COPY OF ADVANCED DIRECTIVE FOR YOUR RECORD. documented in this encounter [facility] 02-08-2022 History of Present illness Narrative This note was created using Grokr. Subjective Deniz Kumar is a 86 year old male. He started noticing muscle aches in his thighs for several months, improving with activity. He was interested in reducing his statin dose. His hypertension was controlled. We reviewed his labs. He had no new exercise or activity to account for the muscle ache, and this was described as mild. Review of Systems Constitutional: Negative. Respiratory: Negative. Cardiovascular: Negative. Gastrointestinal: Negative. Musculoskeletal: Positive for myalgias. Neurological: Negative. ACTIVE PROBLEM LIST Diverticulosis of Large Intestine Hyperlipidemia Essential Hypertension Benign Prostatic Hyperplasia With Urinary Obstruction Chronic Nonallergic Rhinitis Thrombocytopenia, Unspecified (Hcc) Erectile Dysfunction Obesity, Class II, Bmi 35-39.9 Urgency of Urination Current Outpatient Medications Medication Sig doxazosin (CARDURA) 1 mg tablet Take 1 tablet by mouth once daily. lisinopril (ZESTRIL, PRINIVIL) 20 mg tablet Take 1 tablet by mouth once daily. pravastatin (PRAVACHOL) 20 mg tablet Take 1 tablet by mouth daily at bedtime. hydroCHLOROthiazide 12.5 mg capsule Take 1 capsule by mouth once daily. finasteride (PROSCAR) 5 mg tablet Take 1 tablet by mouth once daily. LOW-DOSE ASPIRIN ORAL Take 81 mg by mouth twice daily. Melatonin 5 mg cap Take 5 mg by mouth daily at bedtime. MULTIVITAMIN TAB Take one(1) tablet daily. Lactobacillus acidophilus (PROBIOTIC) 10 billion cell cap Take by mouth. (Patient not taking: Reported on 02/08/2022) doxazosin (CARDURA) 1 mg tablet Take 1 tablet by mouth once daily. (Patient not taking: No sig reported) No current facility-administered medications for this visit. Objective BP 114/68 (BP Site: Left Arm, BP Position: Sitting, BP Cuff Size: Large Adult) Pulse 68 Temp 36.1 C (97 F) (Temporal) Resp 16 Wt 95 kg (209 lb 6.4 oz) BMI 28.40 kg/m Physical Exam Cardiovascular: Rate and Rhythm: Normal rate and regular rhythm. Heart sounds: No murmur heard. No gallop. Pulmonary: Breath sounds: Normal breath sounds. Musculoskeletal: General: No tenderness. Right lower leg: No edema. Left lower leg: No edema. Neurological: Mental Status: He is alert. Motor: No weakness. Gait: Gait is intact. Component Latest Ref Rng & Units 02/01/2022 Protein, Total 6.3 - 8.0 g/dL 6.1 (L) Albumin 3.9 - 4.9 g/dL 4.0 Calcium 8.5 - 10.2 mg/dL 8.6 Bilirubin, Total 0.2 - 1.3 mg/dL 0.9 Alkaline Phosphatase 38 - 113 U/L 72 AST 14 - 40 U/L 18 ALT 10 - 54 U/L 14 Glucose 74 - 99 mg/dL 86 BUN 9 - 24 mg/dL 26 (H) Creatinine 0.73 - 1.22 mg/dL 0.92 Sodium 136 - 144 mmol/L 139 Potassium 3.7 - 5.1 mmol/L 3.9 Chloride 97 - 105 mmol/L 103 CO2 22 - 30 mmol/L 22 Anion Gap 9 - 18 mmol/L 14 eGFR >=60 mL/min/1.73m 82 WBC 3.70 - 11.00 k/uL 4.58 RBC 4.20 - 6.00 m/uL 5.24 Hemoglobin 13.0 - 17.0 g/dL 16.2 Hematocrit 39.0 - 51.0 % 46.7 MCV 80.0 - 100.0 fL 89.1 MCH 26.0 - 34.0 pg 30.9 MCHC 30.5 - 36.0 g/dL 34.7 RDW-CV 11.5 - 15.0 % 12.7 Platelet Count 150 - 400 k/uL 134 (L) MPV 9.0 - 12.7 fL 10.8 Absolute nRBC <0.01 k/uL <0.01 PSA Screening <2.60 ng/mL 0.83 Assessment and Plan 1. Myalgia - ICD9: 729.1, ICD10: M79.10 (primary diagnosis) Mild. Shared Medical Decision Making was done: See #4. 2. Need for vaccination - ICD9: V05.9, ICD10: Z23 - PNEUMOCOCCAL VACCINE (PREVNAR 20) 3. Essential hypertension - ICD9: 401.9, ICD10: I10 - good control 4. Hyperlipidemia, unspecified hyperlipidemia type - ICD9: 272.4, ICD10: E78.5 - good control - PRAVASTATIN 10 MG TABLET. Dose reduced. - BASIC METABOLIC PNL - LIPID PANEL BASIC Vadim Vega MD documented in this encounter [facility] 01-11-2022 Miscellaneous Notes Patient has been identified by name and date of : Yes Pending Prescriptions Disp Refills DOXAZOSIN 1 MG TABLET 90 tablet 3 Sig: Take 1 tablet by mouth once daily. HARSHAD: No LISINOPRIL 20 MG TABLET 90 tablet 3 Sig: Take 1 tablet by mouth once daily. HARSHAD: No RX INSTRUCTIONS: Please send today, so he receives in time from mail order. Patient aware RX escripted to mail away pharmacy. No need to notify patient. Cee Alonzo Pss documented in this encounter [facility] 12-25-2021 History of Present illness Narrative Deniz Kumar 1935 REFERRING PHYSICIAN: Self CHIEF COMPLAINT: Follow Up (hernia ) HPI: The patient is a 86 year old male is s/p umbilical hernia repair on 09/21/2021. He feels an abnormality of the umbilical area and he was concerned and therefore presents to the clinic. He is concerned of recurrence of the hernia at the palpable abnormality. 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 Rivera COLONOSCOPY FLX DX W/COLLJ SPEC WHEN PFRMD 03/2004 Colonoscopy TONSILLECTOMY & ADENOIDECTOMY <AGE 13 1941 UMBILICAL HERNIA REPAIR 5 OR OLDER 09/21/2021 Current Outpatient Medications Medication Sig Lactobacillus acidophilus (PROBIOTIC) 10 billion cell cap Take by mouth. pravastatin (PRAVACHOL) 20 mg tablet Take 1 tablet by mouth daily at bedtime. hydroCHLOROthiazide 12.5 mg capsule Take 1 capsule by mouth once daily. finasteride (PROSCAR) 5 mg tablet Take 1 tablet by mouth once daily. doxazosin (CARDURA) 1 mg tablet Take 1 tablet by mouth once daily. lisinopril (ZESTRIL, PRINIVIL) 20 mg tablet Take 1 tablet by mouth once daily. LOW-DOSE ASPIRIN ORAL Take 81 mg by mouth twice daily. Melatonin 5 mg cap Take 5 mg by mouth daily at bedtime. MULTIVITAMIN TAB Take one(1) tablet daily. doxazosin (CARDURA) 1 mg tablet Take 1 tablet by mouth once daily. (Patient not taking: Reported on 12/25/2021 ) ALLERGIES: Clearasil Maximum Strength PERSONAL HISTORY: Social History Tobacco Use Smoking status: Former Smoker Packs/day: 0.50 Years: 5.00 Pack years: 2.50 Types: Cigarettes, Pipe Smokeless tobacco: Former User Quit date: 07/01/1993 Tobacco comment: Quit 1993 (cig x 5 years and pipe x 20 years) Vaping Use Vaping Use: Never used Substance Use Topics Alcohol use: Yes Alcohol/week: 2.5 standard drinks Types: 1 Glasses of Wine (5oz) per week Comment: or less. Drug use: No FAMILY HISTORY Problem Relation Age of Onset Prostate Cancer Father metastatic prostate Cancer Mother liver Hypertension Sister Lipids Sister REVIEW OF SYSTEMS: Denies fevers PHYSICAL EXAMINATION: General: The patient is 86 year old male, well nourished, well hydrated in no acute distress. The patient is oriented to time, place, and person. VITALS: Blood pressure 106/58, pulse 91, temperature 36.8 C (98.3 F), height 182.9 cm (6'), weight 96.6 kg (213 lb), SpO2 94 %. Body mass index is 28.89 kg/m . Head: Normal cephalic, atraumatic Eyes: pupils are equally round, sclera are clear/anicteric Neck is supple with no tracheal deviation Respiratory: Normal respiratory excursion and pattern. Abdominal exam: soft and benign, rectus diastasis is present, there is a palpable suture knot - PDS suture - which is what the patient is pointing to Extremities: no clubbing, cyanosis or edema. Neuro: non focal Psych: normal mood Assessment IMPRESSION: palpable suture knot - no recurrence of hernia PLAN: I have discussed the above with the patient. I have told patient that this is a suture knot and should resorb over time. The patient acknowledges above. I have answered all questions to the patient s satisfaction and the patient has no further questions. I have confirmed and edited as necessary, the PFSH and ROS obtained by others . Diagnoses: (T81.30XA) Extrusion of suture, initial encounter (primary encounter diagnosis) Return to Clinic: The patient is instructed to follow-up with me if any worsening signs/symptoms Su Ware MD documented in this encounter [facility] 10-01-2021 History of Present illness Narrative FOLLOW UP VISIT NAME: Deniz Echavarria Stacy [facility] NO.: [id number] DATE OF SERVICE: 09/29/2021 : 1935 REFERRING PHYSICIAN: MD Deniz Casanova is s/p umbilical hernia repair with findings of incarcerated gangrenous omentum. He tolerated procedure well. He feels overall well, denies pain. VITALS: Blood pressure 136/68, pulse 81, temperature 36.8 C (98.3 F), height 182.9 cm (6'), weight 97.5 kg (215 lb), SpO2 96 %. On examination, abdomen is soft and benign. Wound is well healed without evidence of infection. Assessment IMPRESSION: s/p umbilical hernia repair which was incarcerated findings of gangrenous omentum PLAN: Patient is counseled to follow up if any worsening signs/symptoms. Patient to return to his PCP for medical care. Diagnoses: (Z09) Status post umbilical hernia repair, follow-up exam (primary encounter diagnosis) I have confirmed and edited as necessary, the PFSH and ROS obtained by others. Su Ware MD documented in this encounter [facility] documented as of this encounter (statuses as of 10/01/2021) [facility] History of Past illness Narrative* Problem Noted Date Resolved Date Dizziness and giddiness 08/22/2007 07/12/19 17 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 02/14/2007 07/12/2016 documented as of this encounter (statuses as of 12/30/2021) [facility] of Past illness Narrative* Problem Noted Date Resolved Date Dizziness and giddiness 08/22/2007 07/12/19 17 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 02/14/2007 07/12/2016 documented as of this encounter (statuses as of 01/11/2022) [facility] History of Past illness Narrative* Problem Noted Date Resolved Date Dizziness and giddiness 08/22/2007 07/12/19 17 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 02/14/2007 07/12/2016 documented as of this encounter (statuses as of 02/08/2022) [facility] History of Past illness Narrative* Problem Noted Date Resolved Date Dizziness and giddiness 08/22/2007 07/12/19 17 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 02/14/2007 07/12/2016 documented as of this encounter (statuses as of 03/05/2022) [address] History of Past illness Narrative* Problem Noted Date Resolved Date Dizziness and giddiness 08/22/2007 07/12/19 17 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 02/14/2007 07/12/2016 documented as of this encounter (statuses as of 05/04/2022) [place] [id number] History of Past illness Narrative* Problem Noted Date Resolved Date Dizziness and giddiness 08/22/2007 07/12/19 17 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 02/14/2007 07/12/2016 documented as of this encounter (statuses as of 05/05/2022) [address] History of Past illness Narrative* Problem Noted Date Resolved Date Dizziness and giddiness 08/22/2007 07/12/19 17 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 02/14/2007 07/12/2016 documented as of this encounter (statuses as of 08/06/2022) [place] [id number] History of Past illness Narrative* Problem Noted Date Resolved Date Dizziness and giddiness 08/22/2007 07/12/19 17 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 02/14/2007 07/12/2016 documented as of this encounter (statuses as of 08/16/2022) [address] History of Past illness Narrative* Problem Noted Date Resolved Date Dizziness and giddiness 08/22/2007 07/12/19 17 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 02/14/2007 07/12/2016 documented as of this encounter (statuses as of 08/31/2022) [address] History of Past illness Narrative* Problem Noted Date Resolved Date Dizziness and giddiness 08/22/2007 07/12/19 17 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 02/14/2007 07/12/2016 documented as of this encounter (statuses as of 09/25/2022) [address] History of Past illness Narrative* Problem Noted Date Resolved Date Dizziness and giddiness 08/22/2007 07/12/19 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 02/14/2007 07/12/2016 documented as of this encounter (statuses as of 01/04/2023) [address] History of Past illness Narrative* Problem Noted Date Diagnosed Date Resolved Date Dizziness and giddiness 08/22/200707/01 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 02/14/2007 07/12/2016 documented as of this encounter (statuses as of 01/27/2023) [facility] Narrative* Problem Noted Date Diagnosed Date Resolved Date Dizziness and giddiness 08/22/200707/01 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 02/14/2007 07/12/2016 documented as of this encounter (statuses as of 02/15/2023) [address] History of Past illness Narrative* Problem Noted Date Diagnosed Date Resolved Date Dizziness and giddiness 08/22/200707/01 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 02/14/2007 07/12/2016 documented as of this encounter (statuses as of 03/01/2023) [address] History of Past illness Narrative* Problem Noted Date Diagnosed Date Resolved Date Dizziness and giddiness 08/22/200707/01 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 02/14/2007 07/12/2016 documented as of this encounter (statuses as of 04/02/2023) [facility] note* Diagnosis Status post umbilical hernia repair, follow-up exam- Primary Follow-up examination, following other surgery [facility] Diagnosis Extrusion of suture, initial encounter- Primary documented in this encounter [facility]* Diagnosis Benign prostatic hyperplasia with urinary obstruction Essential hypertension Unspecified essential hypertension [facility]* Diagnosis Myalgia- Primary Mylagia and myositis, unspecified Need for vaccination Need for prophylactic vaccination and inoculation against unspecified single disease Essential hypertension Unspecified essential hypertension Hyperlipidemia, unspecified hyperlipidemia type documented in this encounter [facility] note* Diagnosis Skin infection- Primary Unspecified local infection of skin and subcutaneous tissue documented in this encounter [facility] note* Diagnosis Exposure to COVID-19 virus- Primary documented in this encounter [facility] note* Diagnosis Benign prostatic hyperplasia with urinary obstruction Essential hypertension Unspecified essential hypertension documented in this encounter [facility] note* Diagnosis Medicare annual wellness visit, subsequent- Primary Routine general medical examination at a [facility] care facility Thrombocytopenia, unspecified (HCC) Thrombocytopenia, unspecified Essential hypertension Unspecified essential hypertension Benign prostatic hyperplasia with urinary obstruction Hyperlipidemia, unspecified hyperlipidemia type Erectile dysfunction, unspecified erectile dysfunction type documented in this encounter [facility] note* Diagnosis OAB (overactive bladder)- Primary Hypertonicity of bladder Erectile dysfunction, unspecified erectile dysfunction type Benign prostatic hyperplasia with urinary obstruction documented in this encounter [facility] note* Diagnosis Eye problem- Primary Other eye problems documented in this encounter [facility] note* Diagnosis OAB (overactive bladder)- Primary 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 documented in this encounter [facility] note* Diagnosis Recurrent umbilical hernia- Primary Umbilical hernia without mention of obstruction or gangrene documented in this encounter [facility] note* Diagnosis Benign prostatic hyperplasia with urinary obstruction- Primary Essential hypertension Unspecified essential hypertension Hyperlipidemia, unspecified hyperlipidemia type Hypoalbuminemia Other disorders of plasma protein metabolism Thrombocytopenia, unspecified (HCC) Thrombocytopenia, unspecified Recurrent umbilical hernia Umbilical hernia without mention of obstruction or gangrene documented in this encounter [facility] note* Diagnosis S/P hernia repair- Primary Other postprocedural status documented in this encounter [facility] note* Diagnosis Hyperlipidemia, unspecified hyperlipidemia type documented in this encounter [facility] Summary Purpose Family History No Family History Records FoundNo Family History Records FoundNo Family History Records FoundNo Family History Records Found Advance Directives No Advanced Directives Records FoundDocuments on File Type Date Recorded 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 Advance Directive(s) 09/21/2021 10:36 AM Documents on File Type Date Recorded 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 Advance Directive(s) 03/01/2023 9:16 AM Reason for Referral Specialty Diagnoses / Procedures Referred By Contac t Referred To Contact Urology Diagnoses Benign prostatic hyperplasia with urinary obstruction Erectile dysfunction, unspecified erectile dysfunction type Procedures CONSULT TO UROLOGY OFFICE/OUTPATIENT [facility] MDM 60-74 MINUTES Vadim Vega MD [address] [place] [address] Referral ID Status Reason Start Date Expiration Date Visits Requested Visits Authorized [id number] Authorized PCP Requested Referral 08/16/2022 08/16/2023 1 1 Additional Source Comments (unrecognized sect ion and content) No Status Records FoundNo Status Records FoundNo Status Records FoundNo Status Records Found INFORMATION SOURCE (unrecogn ized section and content) DATE CREATED AUTHOR AUTHOR'S ORGANIZ ATION 11/22/2018 [facility] DATE CREATED AUTHOR AUTHOR'S ORGANIZ ATION 03/01/2023 [facility] DATE CREATED AUTHOR AUTHOR'S ORGANIZ ATION 06/26/2023 [facility] Source Comments (unrecognize d section and content) In the event this informatio n is protected by the Federal Confidentiality of Alcohol and Drug Abuse Patient Records regulations: The Federal rules restrict any use of the information to criminally investigate or prosecute any alcohol or drug abuse patient.[facility] event this information is protected by the Federal Confidentiality of Alcohol and Drug Abuse Patient Records regulations: The Federal rules restrict any use of the information to criminally investigate or prosecute any alcohol or drug abuse patient.[facility] the event this information is protected by the Federal Confidentiality of Alcohol and Drug Abuse Patient Records regulations: The Federal rules restrict any use of the information to criminally investigate or prosecute any alcohol or drug abuse patient.[facility] System[facility] the event this information is protected by the Federal Confidentiality of Alcohol and Drug Abuse Patient Records regulations: The Federal rules restrict any use of the information to criminally investigate or prosecute any alcohol or drug abuse patient.[facility] System[facility] the event this information is protected by the Federal Confidentiality of Alcohol and Drug Abuse Patient Records regulations: The Federal rules restrict any use of the information to criminally investigate or prosecute any alcohol or drug abuse patient.[facility] System[facility] the event this information is protected by the Federal Confidentiality of Alcohol and Drug Abuse Patient Records regulations: The Federal rules restrict any use of the information to criminally investigate or prosecute any alcohol or drug abuse patient.[facility] System[facility] the event this information is protected by the Federal Confidentiality of Alcohol and Drug Abuse Patient Records regulations: The Federal rules restrict any use of the information to criminally investigate or prosecute any alcohol or drug abuse patient.[facility] System[facility] the event this information is protected by the Federal Confidentiality of Alcohol and Drug Abuse Patient Records regulations: The Federal rules restrict any use of the information to criminally investigate or prosecute any alcohol or drug abuse patient.[facility] System[facility] the event this information is protected by the Federal Confidentiality of Alcohol and Drug Abuse Patient Records regulations: The Federal rules restrict any use of the information to criminally investigate or prosecute any alcohol or drug abuse patient.[facility] System[facility] the event this information is protected by the Federal Confidentiality of Alcohol and Drug Abuse Patient Records regulations: The Federal rules restrict any use of the information to criminally investigate or prosecute any alcohol or drug abuse patient.[facility] System[facility] the event this information is protected by the Federal Confidentiality of Alcohol and Drug Abuse Patient Records regulations: The Federal rules restrict any use of the information to criminally investigate or prosecute any alcohol or drug abuse patient.[facility] System[facility] the event this information is protected by the Federal Confidentiality of Alcohol and Drug Abuse Patient Records regulations: The Federal rules restrict any use of the information to criminally investigate or prosecute any alcohol or drug abuse patient.[facility] System[facility] the event this information is protected by the Federal Confidentiality of Alcohol and Drug Abuse Patient Records regulations: The Federal rules restrict any use of the information to criminally investigate or prosecute any alcohol or drug abuse patient.[facility] System[facility] the event this information is protected by the Federal Confidentiality of Alcohol and Drug Abuse Patient Records regulations: The Federal rules restrict any use of the information to criminally investigate or prosecute any alcohol or drug abuse patient.[facility] System[facility] the event this information is protected by the Federal Confidentiality of Alcohol and Drug Abuse Patient Records regulations: The Federal rules restrict any use of the information to criminally investigate or prosecute any alcohol or drug abuse patient.[facility] System[facility] the event this information is protected by the Federal Confidentiality of Alcohol and Drug Abuse Patient Records regulations: The Federal rules restrict any use of the information to criminally investigate or prosecute any alcohol or drug abuse patient.[facility] Reason for Visit (unrecogniz ed section and content) Reason Comments Follow Up hernia Reason Onset Date Comments Refill Request 01/11/2022 Reason Comments F/U 6 months Reason Comments Derm Problem Cyst on R groin x4 d ays Reason Comments Follow Up Pt reported +Covid e xposure x2 days prior, denied current sxs. Reason Comments Results Reason Onset Date Comments Refill Request 08/03/2022 Reason Comments Medicare Wellness Exam Reason Comments Consult Benign Prostatic Hypertrophy Erectile Dysfunction Specialty Diagnoses / Procedures Referred By Julian aparicio Referred To Contact Urology Diagnoses Benign prostatic hyperplasia with urinary obstruction Erectile dysfunction, unspecified erectile dysfunction type Procedures CONSULT TO UROLOGY OFFICE/OUTPATIENT [facility] 60-74 MINUTES Vadim Vega MD [address] [place] [address] Referral ID Status Reason Start Date Expiration Date V isits Requested Visits Authorized [id number] Closed PCP Requested Referral 08/16/2022 08/16/2023 1 1 Reason Comments Eye Problem Pt reported (LT) eye irritation, onset AM denied pain, visual changes. Reason Comments Follow Up Erectile Dysfunction Overactive Bladder Reason Comments Consult Hernia repair Reason Comments Post Op Follow Up Hernia repair [employer] Reason Onset Date Comments Refill Request 04/01/2023 Care Teams (unrecognized sec tion and content) Food Dehydrator Operator Relationship Specialty Start Date End Date Vadim Vega MD [facility] [place] [address] PCP - General Internal Medicine 07/23/16 Food Dehydrator Operator Relationship Specialty Start Date End Date Vadim Vega MD [facility] [place] [address] PCP - General Internal Medicine 07/23/16 Food Dehydrator Operator Relationship Specialty Start Date End Date Vadim Vega MD [address] [place] [address] PCP - General Internal Medicine 07/23/16 Food Dehydrator Operator Relationship Specialty Start Date End Date Vadim Vega MD [facility] [place] [address] PCP - General Internal Medicine 07/23/16 Food Dehydrator Operator Relationship Specialty Start Date End Date Vadim Vega MD [facility] [place] [address] PCP - General Internal Medicine 07/23/16 Food Dehydrator Operator Relationship Specialty Start Date End Date Vadim Vega MD [address] [place] [address] [place] [address] PCP - General Internal Medicine 07/23/16 Food Dehydrator Operator Relationship Specialty Start Date End Date Vadim Vega MD [address] [place] [address] [place] [address] PCP - General Internal Medicine 07/23/16 Food Dehydrator Operator Relationship Specialty Start Date End Date Vadim Vega MD [address] [facility], [place] [address] PCP - General Internal Medicine 07/23/16 Food Dehydrator Operator Relationship Specialty Start Date End Date Vadim Vega MD [address] [facility], [place] [address] PCP - General Internal Medicine 07/23/16 Food Dehydrator Operator Relationship Specialty Start Date End Date Vadim Vega MD [address] [facility], [place] [id number] PCP - General Internal Medicine 07/23/16 Food Dehydrator Operator Relationship Specialty Start Date End Date Vadim Vega MD [address] [facility], [place] [address] PCP - General Internal Medicine 07/23/16 Food Dehydrator Operator Relationship Specialty Start Date End Date Vadim Vega MD [address] [facility], [place] [address] PCP - General Internal Medicine 07/23/16 FOR RECORDS PERTAINING TO PATIENTS WHO ARE OR HAVE BEEN ENROLLED IN A CHEMICAL DEPENDENCY/SUBSTANCEABUSE PROGRAM, SOME INFORMATION MAY BE OMITTED. This clinical summary was aggregated from multiple sources. Caution should be exercised in using it in the provision of clinical care. This summary normalizes information from multiple sources, and as a consequence, information in this document may materially change the coding, format and clinical context of patient data. In addition, data may be omitted in some cases. CLINICAL DECISIONS SHOULD BE BASED ON THE PRIMARY CLINICAL RECORDS. [employer] [facility]. provides no warranty or guarantee of the accuracy or completeness of information in this document.
[2023-06-27 18:51] VITALS: BP 160/98; PULSE 66; RESP 16; RESP 20; TEMP 36.4; O2SAT 93; BMI 29.1
[2023-06-27] MEDS: levETIRAcetam 500 MG Tablet PO (22:03)
[2023-06-27] MEDS: MELATONIN 3 MG TABLET PO (22:04)
[2023-06-27] MEDS: Senna Tablet 2 TABLET PO (22:05)
[2023-06-28 05:59] LABS: Absolute Lymphocyte Count 1.23 X10^3/uL (0.83-4.51); Absolute Neutrophil Count 2.2 X10^3/uL (2.0-7.7); Basophil# 0.01 X10^3/uL; Basophil% 0.2 % (0-1); Eosinophil# 0.05 X10^3/uL; Eosinophils% 1.1 % (0-5); Hematocrit 41.7 % (40-54); Lymphocyte # 1.23 X10^3/ul (0.83-4.51); Lymphocyte % 27.6 % (19-41); Mean Corp Hgb Conc 33.6 g/dL (32-36); Mean Corpuscular Hgb 30.1 pg (27.0-32.0); Mean Corpuscular Volume 89.7 fL (80-94); Mean Platelet Vol. 10.7 fl (6.2-12.0); Monocyte# 0.88 X10^3/uL; Monocyte% 19.7 % (0-10); NRBC Flagged by Analyzer 0 % (0-5); Neutrophil # 2.22 X10^3/uL (2.7-7.7); Neutrophil % 49.8 % (47-70); Platelet Count 129 K/mm3 (150-450); RBC Distribution Width CV 12.9 % (11.6-14.6); RBC Distribution Width SD 42.3 fl (35.1-43.9); Red Blood Count 4.65 M/mm3 (4.6-6.2); White Blood Count 4.5 K/mm3 (4.4-11.0)
[2023-06-28 06:00] VITALS: BP 156/97; BP 162/89; BP 162/98; PULSE 54; PULSE 61; PULSE 82
[2023-06-28 06:42] LABS: Anion Gap 3 (5-15); BUN 21 mg/dL (7-18); BUN/Creat Ratio 23.2 RATIO (10-20); Calcium,Total 8.7 mg/dL (8.5-10.1); Chloride 108 mmol/L (98-107); Creatinine, Serum 0.91 mg/dL (0.70-1.30); EST Glomerular Filtration Rate 84 mL/min (>60); Est Glom Filt Rate - Afr Amer 102 mL/min (>60); Estimated Creatinine Clearance 62.77 ml/min; Glucose 91 mg/dL (74-106); Potassium 3.6 mmol/L (3.5-5.1); Sodium Level 140 mmol/L (136-145)
[2023-06-28 06:43] VITALS: BP 152/87; PULSE 60
[2023-06-28 07:03] VITALS: BMI 28.3
[2023-06-28] MEDS: Calcium Carb/Vitamin D 1 TABLET Tablet 0.5 TABLET PO ×2 (08:29→16:57)
[2023-06-28] MEDS: Multivitamins,Therapeutic Tablet 1 TABLET PO (08:29)
[2023-06-28] MEDS: levETIRAcetam 500 MG Tablet PO ×2 (08:30→21:33)
[2023-06-28] MEDS: Doxazosin 1 MG Tablet PO (08:30)
[2023-06-28] MEDS: Finasteride 5 MG Tablet PO (08:31)
[2023-06-28] MEDS: Lisinopril 20 MG Tablet PO (08:31)
[2023-06-28 08:35] VITALS: BP 144/112; PULSE 81; RESP 16; TEMP 36.6; O2SAT 95
--- NOTE | 2023-06-28 10:47 | PCM.PN.DRR ---
TCU RX Drug Regimen Review Subjective/Objective Subjective/Objective: Subjective: 88 YOM admitted to TCU on 06/27/23 s/p hospitalization from an outside facility. The patient presented to [facility] ED on 06/21/23 secondary to a fall where he hit his head, resulting in a bleed. Patient was transferred at that time to an outside facility. Patient admitted to TCU for strengthening and debility prior to discharge where he resides at home. Objective: Allergies salicylic acid Allergy (Verified 10/17/22 13:45) Swelling clearasil Current Medications Generic Name Dose Route Start Last Admin Trade Name Freq PRN Reason Stop Dose Admin Acetaminophen 1,000 mg 06/27/23 18:39 Acetaminophen 500 Mg Tablet PO Q6H PRN Pain Score 1-10 Calcium/Vitamin D 0.5 tablet 06/28/23 08:00 06/28/23 08:29 Calcium Carb/Vitamin D 1 Tablet Tablet PO 0.5 tablet BIDCM ISH Administration Doxazosin Mesylate 1 mg 06/28/23 10:00 06/28/23 08:30 Doxazosin 1 Mg Tablet PO 1 mg DAILY ISH Administration Protocol Finasteride 5 mg 06/28/23 10:00 06/28/23 08:31 Finasteride 5 Mg Tablet PO 5 mg DAILY ISH Administration Lactobacillus Acidophilus 1 tablet 06/28/23 10:00 06/28/23 08:30 Lactobacillus Acidophilus PO 1 tablet DAILY ISH Administration Levetiracetam 500 mg 06/27/23 22:00 06/28/23 08:30 Levetiracetam 500 Mg Tablet PO 06/29/23 23:00 500 mg BID ISH Administration Lisinopril 20 mg 06/28/23 10:00 06/28/23 08:31 Lisinopril 20 Mg Tablet PO 20 mg DAILY ISH Administration Protocol Melatonin 3 mg 06/27/23 22:00 06/27/23 22:04 Melatonin 3 Mg Tablet PO 3 mg QHS ISH Administration Multivitamins 1 tablet 06/28/23 08:00 06/28/23 08:29 Multivitamins,Therapeutic Tablet PO 1 tablet BREAKFAST ISH Administration Pravastatin Sodium 20 mg 06/27/23 22:00 06/27/23 22:03 Pravastatin 20 Mg Tablet PO Not Given QHS ISH Senna 2 tablet 06/27/23 22:00 06/27/23 22:05 Senna Tablet PO 2 tablet QHS ISH Administration Sodium Chloride 10 - 40 ml 06/27/23 18:59 0.9% Saline Lock 10 Ml Syringe IV UD PRN SALINE FLUSH Tuberculin PPD 0.1 ml 07/05/23 10:00 Tuberculin,Purif.Prot.Deriv. 50 Tu/Ml Vial ID 07/05/23 10:01 X1 ONE Vital Signs Temp Pulse Resp BP Pulse Ox O2 Del Method 97.9 F 81 16 144/112 H 95 Room Air 06/28/23 08:35 06/28/23 08:35 06/28/23 08:35 06/28/23 08:35 06/28/23 08:35 06/28/23 08:35 Oxygen Delivery Method Room Air Weight: 94.71 kg Body Mass Index (BMI) 28.3 Sodium 140 mmol/L (136-145) 06/28/23 05:31 Potassium 3.6 mmol/L (3.5-5.1) 06/28/23 05:31 Chloride 108 mmol/L (98-107) H 06/28/23 05:31 Carbon Dioxide 29.0 mmol/L (21.0-32.0) 06/28/23 05:31 Anion Gap 3 (5-15) L 06/28/23 05:31 BUN 21 mg/dL (7-18) H 06/28/23 05:31 Creatinine 0.91 mg/dL (0.70-1.30) 06/28/23 05:31 Est GFR (MDRD) Af Amer 102 mL/min (>60) 06/28/23 05:31 Est GFR (MDRD) Non-Af 84 mL/min (>60) 06/28/23 05:31 BUN/Creatinine Ratio 23.2 RATIO (10-20) H 06/28/23 05:31 Glucose 91 mg/dL (74-106) 06/28/23 05:31 Assessment/Plan: 1. Pain: Tylenol 1000mg PO Q6h PRN Pain 1-10. Please continue to monitor for increased/decreased S/S pain, PRN medication use. -To date, the patient has not required any pain medications at this time. 2. Bowel: Senna 2 tab PO QHS. Please continue to monitor for increased/decreased constipation and/or diarrhea. - The patient has not had a bowel movement yet on this admission (<24hrs ago). Please continue to monitor closely and consider adding additional bowel regimen agents if pt does not produce a BM within the next 48hrs, thank you. 3. HTN: Lisinopril 20mg PO Daily. Please continue to monitor BP (range 144-162/89-112), renal function (Scr 0.91 on 06/28), potassium levels (last 3.6 on 06/28). Patient's blood pressure is significantly elevated, please consider adding additional agent if clinically indicated, thank you. 4. Head trauma: Keppra 500mg PO BID thru 06/29/23. Please continue to monitor for worsening in condition, falls, syncope. 5. BPH: Finasteride 5mg PO Daily, Doxazosin 1mg PO daily. Please continue to monitor BP, improvement in urinary flow, decreased urinary retention. 6. HLD/ CAD: Pravastatin 20mg PO QHS. Please continue to monitor for muscle weakness, lipid panel annually or sooner if clinically indicated (not one currently on file). Patient reports not taking medication because he believes this made him fall, refused night time dosing. Please evaluate use of medication (can it be switched to a different agent, obtain lipid panel to see baseline labs). 7. General Wellness: Os-Rogelio+D 1/2 tab PO BID, Acidophilus 1 tab PO Daily, MVI 1 tab PO Daily. 8. Insomnia: Melatonin 3mg PO QHS. Please continue to monitor for medication effectiveness, oversedation. If medication appears ineffective, can consider taking medication at least 2 hours prior to desired bedtime. Assessment/Plan for indications treated with psychotropic medications: - The patient is not on any antipsychotic medications at time of medication review. Medical chart and medication regimen reviewed. The following medication irregularities or issues were identified: 1. HTN: Lisinopril 20mg PO Daily. Patient's blood pressure is significantly elevated (range 144-162/89-112), please consider adding additional agent if clinically indicated, thank you. 2. Pravastatin: patient currently refusing statins, per nursing pt reports he believes this is causing him to fall. Please evaluate if patient would have benefit of switching to another agent- no lipid panel on file. Date Date of Note:: 06/28/23
--- NOTE | 2023-06-28 10:57 | NURSING ---
Vamp Seamer Note; Activity Asset: Tami Pop is independent in his choice of daily activities. He enjoys watching tv, reading and just relaxing for the most part. He keeps the grounds and his condo. Pop welcomes visit from both the therapy dog and oiler helper when available. Staff will continue to remind him of in room and group activities and respect his right to say no.
--- NOTE | 2023-06-28 11:59 | HP.PCM_ITS ---
[facility] Date of Admission: 06/27/23 Date of Service: 06/28/23 Chief Complaint: Debility due to a fall with fracture of L ankle and a SDH HPI Narrative DENIZ MCKEON, is a 88 YO M with a PMH of HLD, BPH with urinary obstruction, chronic nonallergic rhinitis, diverticulosis, erectile dysfunction, overactive bladder and TIA who fell while hiking. He hit his head and W/U in the ED showed a L ankle fracture and a SDH. He was transferred to [facility] because of the head bleed. He had been taking ASA 81 mg BID. He was given DDAVP to to reverse the ASA. He tells me that he was started on Pravastatin about 6 months ago and since then he has been having weakness and soreness in the BL anterior thighs. He told his doctor this and the dose was cut down and the sx improved. When he next had his cholesterol checked it had increased and the dose was increased. The weakness and soreness recurred. He thought maybe he needed to get more exercise so he started walking at [facility]. He has fallen twice since starting this.....usually at the end of his walk. He tells me that his legs just gave out. He non longer wants to take Pravastatin. He required no surgical intervention at [facility]. He was placed on Keppra for 1 week for seizure prophylaxis. He had an open reduction internal fixation of a left bimalleolar ankle fracture on 06/23/[address] Jiménez. the post operative course was unremarkable. Therapy recommended longterm at [facility] for strengthening and gait training and on 06/27/23 he was transferred to the Transitional Care Unit at [facility]. Tank is NWB on the LLE and has a walking boot on the LLE. Significant lab at [facility] included mild thrombocytopenia of undetermined etiology. [facility] Medical History (Updated 06/28/23 @ 16:[address] Mirian Farris DO) BPH (benign prostatic hyperplasia) Diverticulosis Hypercholesterolemia Hypertension Nonallergic rhinitis TIA (transient ischemic attack) Home Medications aspirin 81 mg chewable tablet 81 mg PO BID Heart health 06/21/23 [History Last Taken 06/21/23] doxazosin 1 mg tablet 1 mg PO DAILY BP 06/21/23 [History Last Taken 06/20/23] finasteride 5 mg tablet 5 mg PO DAILY Bladder 06/21/23 [History Last Taken 06/21/23] lisinopril 20 mg tablet 20 mg PO DAILY BP 06/21/23 [History Last Taken 06/21/23] melatonin 3 mg capsule 3 mg PO DAILY Sleep 06/21/23 [History Last Taken 06/20/23] pravastatin 20 mg tablet 20 mg PO DAILY Cholestrol 06/21/23 [History Last Taken 06/20/23] Lactobacillus acidophilus 250 million cell capsule (Probiotic Acidophilus) 500 mmu cells PO DAILY Probiotic 06/27/23 [History Last Taken Unknown] acetaminophen 500 mg capsule 1,000 mg PO Q6H PRN pain 06/27/23 [History Last Taken Unknown] levetiracetam 500 mg tablet 500 mg PO BID Seizure precaution 06/27/23 [History Last Taken 06/27/23] sennosides 8.6 mg capsule (senna) 17.2 mg PO QHS Constipation 06/27/23 [History Last Taken Unknown] Allergy/AdvReac Type Severity Reaction Status Date / Time salicylic acid Allergy Swelling Verified 10/17/22 13:45 Family History (Updated 06/28/23 @ 16:[address] Mirian Farris DO) Father Cancer Prostate cancer Mother Cancer Liver cancer Sister Hypertension Hyperlipidemia Surgical History (Updated 06/28/23 @ 16:[address] Mirian Farris DO) History of open reduction and internal fixation (ORIF) procedure Social History (Updated 06/28/23 @ 16:[address] Mirian Farris DO) household members: none housing: other details: Mobile home pets and animals: Yes (Dog) Smoking Status: Former smoker pack-years: 3 alcohol intake: current alcohol intake frequency: a few times a month Alcohol type: beer details: 1 beer a week. substance use type: marijuana and other details: Has used marijuana in the past but not currently. ROS Constitutional Constitutional: Reports weakness; Denies anorexia, change in weight, chills, fatigue, fever(s) or night sweats Eyes Eyes: Denies blurry vision, change in vision, eye pain or loss of vision ENT HEENT: Reports dry mouth and nasal congestion; Denies abnormal hearing, dysphagia, headache(s), hearing loss or sore throat Cardiovascular Cardiovascular: Denies chest pain, dyspnea on exertion, edema, lightheadedness, orthopnea, palpitations, paroxysmal nocturnal dyspnea or syncope Respiratory/Chest Respiratory/Chest: Denies cough, dyspnea, shortness of breath at rest, shortness of breath with exertion or wheezing Gastrointestinal Gastrointestinal: Denies abdominal pain, constipation, diarrhea, dyspepsia, hematemesis, hematochezia, nausea or vomiting Genitourinary Genitourinary: Reports nocturia; Denies dysuria, hematuria, urinary frequency, urinary hesitancy, urinary incontinence or urinary urgency Musculoskeletal Musculoskeletal: Denies back pain, joint pain, joint swelling, neck pain, numbness or radiating pain into limb Integumentary Integumentary: Reports dry skin and other Details: Incision left ankle ; Denies jaundice or rash Neurologic Neurologic: Reports focal weakness; Denies confusion, disequilibrium, dizziness, headache(s), paresthesias, seizures or tremor(s) Psychiatric Psychiatric: Denies anxiety, depression, homicidal ideation or suicidal ideation Endocrine Endocrinology: Denies change in body appearance, polydipsia or polyuria Hematologic/Lymphatic Hematologic/Lymphatic: Denies easy bleeding, easy bruising or lymphadenopathy Allergic/Immunologic Allergic/Immunologic: Reports rhinitis; Denies eczemia or asthma Vital Signs Vital Signs Vital Signs: 06/27/23 18:51 06/27/23 18:51 06/28/23 06:00 Temperature 97.6 F L Temperature Source Temporal Pulse Rate 66 Pulse Rate [Lying] 54 L Pulse Rate [Sitting (for 1 minute prior to obtaining)] 61 Pulse Rate [Standing (for 1 minute prior to obtaining)] 82 Pulse Rhythm Regular Pulse Strength Normal (2+) Respiratory Rate 20 H 16 Respiratory Effort Normal Non-Labored Respiratory Depth Normal Respiratory Pattern Normal Blood Pressure 160/98 H Blood Pressure [Lying] 162/89 H Blood Pressure [Sitting (for 1 minute prior to obtaining)] 162/98 H Blood Pressure [Standing (for 1 minute prior to obtaining)] 156/97 H Blood Pressure Mean 118 Blood Pressure Mean [Lying] 113 Blood Pressure Mean [Sitting (for 1 minute prior to obtaining)] 119 Blood Pressure Mean [Standing (for 1 minute prior to obtaining)] 116 Blood Pressure Source Monitor Blood Pressure Position Semi-Fowlers Blood Pressure Location Left Arm Pulse Ox 93 Oxygen Delivery Method Room Air Room Air 06/28/23 06:43 06/28/23 08:35 Temperature 97.9 F Temperature Source Temporal Pulse Rate 60 81 Pulse Rate [Lying] Pulse Rate [Sitting (for 1 minute prior to obtaining)] Pulse Rate [Standing (for 1 minute prior to obtaining)] Pulse Rhythm Pulse Strength Respiratory Rate 16 Respiratory Effort Respiratory Depth Respiratory Pattern Blood Pressure 152/87 H 144/112 H Blood Pressure [Lying] Blood Pressure [Sitting (for 1 minute prior to obtaining)] Blood Pressure [Standing (for 1 minute prior to obtaining)] Blood Pressure Mean 108 122 Blood Pressure Mean [Lying] Blood Pressure Mean [Sitting (for 1 minute prior to obtaining)] Blood Pressure Mean [Standing (for 1 minute prior to obtaining)] Blood Pressure Source Monitor Monitor Blood Pressure Position Sitting Sitting Blood Pressure Location Right Arm Left Arm Pulse Ox 95 Oxygen Delivery Method Room Air Weight Weight: 208 lb 12.8 oz Body Mass Index (BMI) 28.3 Physical Exam Const alert, oriented x3, no apparent distress and healthy appearing Constitutional Narrative: He is sitting in the recliner and appears comfortable. General Appearance: cooperative and well kempt HEENT normocephalic and head/scalp atraumatic HEENT Narrative: MM are dry Eyes conjunctivae normal and no scleral icterus Eyes Narrative: No visual field cuts General Eye: normal appearance of both eyes; Negative for exophthalmos or proptosis Neck full ROM, No nuchal rigidity, No nodes and no carotid bruits General: trachea midline Chest Chest: symmetrical chest wall rise Resp normal respiratory effort and normal air movement Resp Narrative: He initially had bibasilar coarse crackles but after several deep breaths these resolved. No tachypnea and no accessory muscle use. Effort and Inspection: able to speak in complete sentences Cardio regular rate, regular rhythm, S1 normal heart sound, S2 normal heart sound, no murmurs, no rub and no gallops GI normal to inspection, nondistended, normoactive bowel sounds, soft to palpation and non-tender GI Narrative: No guarding with palpation. No suprapubic pain. no CVA tenderness Back/Spine no CVA tenderness Extremity no calf tenderness Extremity Narrative: The left lower extremity is in a boot from the knee to the base of the toes. He denies any pain at the present time. Skin General Skin Exam: no breakdown Rashes: no rashes Hair: male pattern alopecia Neuro oriented x3, CN's II-XII intact bilaterally, moves all extremities, no focal motor deficits and no sensory deficits noted Psych mental status grossly normal, thought process normal, cooperative, affect normal and speech normal Appearance: grossly normal, appropriate and well kempt Attitude: calm Activity / Motor Behavior: appropriate eye contact Results Lab / Micro Data 06/28/23 05:31 06/28/23 05:31 Labs: Laboratory Results - last 24 hr 06/28/23 05:31: WBC 4.5, RBC 4.65, Hgb 14.0, Hct 41.7, MCV 89.7, MCH 30.1, MCHC 33.6, RDW Std Deviation 42.3, RDW Coeff of Bayron 12.9, Plt Count 129 L, MPV 10.7, Immature Gran % (Auto) 1.600 H, Neut % (Auto) 49.8, Lymph % (Auto) 27.6, [place] % (Auto) 19.7 H, Eos % (Auto) 1.1, Baso % (Auto) 0.2, Absolute Neuts (auto) 2.2, Absolute Lymphs (auto) 1.23, Nucleated RBC % 0, Sodium 140, Potassium 3.6, Chloride 108 H, Carbon Dioxide 29.0, Anion Gap 3 L, BUN 21 H, Creatinine 0.91, Estim Creat Clear Calc 62.77, Est GFR (MDRD) Af Amer 102, Est GFR (MDRD) Non-Af 84, BUN/Creatinine Ratio 23.2 H, Glucose 91, Calcium 8.7 Micro: Microbiology 06/28/23 05:25 Nasal Secretion SARS-CoV-2 Antigen (Rapid) - Final Assessment & Plan Assessment/Plan (1) Debility: (2) Fall: QUALIFIERS: Encounter type: subsequent encounter Qualified Code(s): W19.XXXD - Unspecified fall, subsequent encounter (3) Traumatic intracranial subdural hematoma: QUALIFIERS: Encounter type: subsequent encounter Loss of consciousness presence/duration: without LOC Qualified Code(s): S06.5X0D - Traumatic subdural hemorrhage without loss of consciousness, subsequent encou nter (4) Bimalleolar fracture of left ankle: QUALIFIERS: Encounter type: subsequent encounter Fracture type: c losed (5) History of open reduction and internal fixation (ORIF) procedure: (6) Thrombocytopenia: (7) Overactive bladder: (8) BPH (benign prostatic hyperplasia): QUALIFIERS: Lower urinary tract symptom presence: symptoms absent Qualified Code(s): N40.0 - Benign prostatic hyperplasia without lower urinary t ract symptoms (9) Hypercholesterolemia: (10) Hypertension: QUALIFIERS: Hypertension type: primary hypertension Qualified Code(s): I10 - Essential (primary) hypertension (11) Adverse reaction to drug that primarily affects musculoskeletal system: PLAN: Plan PLAN PT for gait stability OT for ADL's ST for evaluation - for slow speech and slow processing of information post SDH/head trauma Analgesics as needed Bowel protocol Fall precautions Assess for Anxiety/Depression GI prophylaxis-not needed at this time DVT prophylaxis with HERBERTH fowler -he was not on anticoagulation when he came to us and the aspirin was stopped at [facility] for surgery and b ecause of thrombocytopenia. Follow up with Dr. Deras and neurosurgery and podiatry. Following DC from [facility] All a.m. lab was personally reviewed. Discontinue pravastatin. Pt may be better able to tolerate rosuvastatin than Pravastatin. Would start 5 mg daily. It is not on the hospital formulary so will defer changing statin to Dr. Deras. Obtain Dr. Beck's labs for the past year.....is the thrombocytopenia new? Also obtain a problem list and a med list. Charges/Coding Visit Charges Inpatient E&M: 35390 SNF Init L2
[2023-06-28 14:13] VITALS: BP 147/87; PULSE 95; RESP 12; TEMP 36.6; O2SAT 94
[2023-06-28] MEDS: Tuberculin,Purif.prot.deriv. 50 TU/ML Vial 0.100000000000000006 ML ID (16:58)
[2023-06-28] MEDS: Senna Tablet 2 TABLET PO (21:33)
[2023-06-28] MEDS: MELATONIN 3 MG TABLET PO (21:33)
[2023-06-28 22:00] VITALS: RESP 16
[2023-06-29] MEDS: Calcium Carb/Vitamin D 1 TABLET Tablet 0.5 TABLET PO ×2 (08:35→16:36)
[2023-06-29] MEDS: Multivitamins,Therapeutic Tablet 1 TABLET PO (08:36)
[2023-06-29] MEDS: Doxazosin 1 MG Tablet PO ×2 (08:36→21:59)
[2023-06-29] MEDS: Lisinopril 20 MG Tablet PO (08:38)
[2023-06-29] MEDS: Finasteride 5 MG Tablet PO (08:38)
[2023-06-29] MEDS: levETIRAcetam 500 MG Tablet PO ×2 (08:39→22:00)
[2023-06-29 08:40] VITALS: BP 135/83; PULSE 68
[2023-06-29 10:05] VITALS: PULSE 90
[2023-06-29 16:00] VITALS: BP 163/100; PULSE 100; RESP 16; TEMP 37.1; O2SAT 95
[2023-06-29 16:09] VITALS: BP 170/100
--- NOTE | 2023-06-29 16:13 | NURSING ---
BAG FILLER CAME TO THIS NURSE AND STATED PT BLOOD PRESSURE WAS HIGH. THIS NURSE RECHECKED BP MANUALLY, 170/100. REPORTED TO IMMEDIATELY. NEW ORDER FOR LEATHA ISAAC AWARE
[2023-06-29] MEDS: cloNIDine HCl 0.1 MG Tablet 0.100000000000000006 MG PO (16:36)
--- NOTE | 2023-06-29 16:40 | NURSING ---
Catapress 0.1mg given at this time and this RN will recheck BP in another 60-80 minutes.
--- NOTE | 2023-06-29 17:55 | NURSING ---
This RN aware of order this morning by Dr. Farris to obtain medical records from Dr. Valle office. The office is not open today and will pass along in report as well as leave a note to obtain records when the office reopens on 07/02/23
[2023-06-29 18:51] VITALS: BP 132/88; PULSE 109
[2023-06-29] MEDS: Senna Tablet 2 TABLET PO (21:58)
[2023-06-29] MEDS: Acetaminophen 500 MG Tablet 1000 MG PO (21:58)
[2023-06-29] MEDS: MELATONIN 3 MG TABLET PO (21:58)
[2023-06-30] MEDS: Lisinopril 20 MG Tablet PO (08:28)
[2023-06-30] MEDS: Calcium Carb/Vitamin D 1 TABLET Tablet 0.5 TABLET PO ×2 (08:28→16:25)
[2023-06-30] MEDS: Finasteride 5 MG Tablet PO (08:28)
[2023-06-30] MEDS: Multivitamins,Therapeutic Tablet 1 TABLET PO (08:28)
[2023-06-30 15:42] VITALS: BP 149/80; PULSE 99; RESP 20; TEMP 36.7; O2SAT 93
[2023-06-30] MEDS: Acetaminophen 500 MG Tablet 1000 MG PO (21:52)
[2023-06-30] MEDS: Senna Tablet 2 TABLET PO (21:52)
[2023-06-30] MEDS: Doxazosin 1 MG Tablet PO (21:53)
[2023-06-30] MEDS: MELATONIN 3 MG TABLET PO (21:53)
[2023-06-30 21:57] VITALS: BP 155/77; PULSE 76
[2023-07-01] MEDS: Multivitamins,Therapeutic Tablet 1 TABLET PO (08:36)
[2023-07-01] MEDS: Finasteride 5 MG Tablet PO (08:36)
[2023-07-01] MEDS: Lisinopril 20 MG Tablet PO (08:36)
[2023-07-01] MEDS: Calcium Carb/Vitamin D 1 TABLET Tablet 0.5 TABLET PO ×2 (08:36→16:45)
[2023-07-01] MEDS: Acetaminophen 500 MG Tablet 1000 MG PO ×2 (13:36→20:34)
[2023-07-01] MEDS: cloNIDine HCl 0.1 MG Tablet 0.100000000000000006 MG PO (14:52)
[2023-07-01 14:59] VITALS: PULSE 96; RESP 18; TEMP 36.5; O2SAT 94
[2023-07-01 16:18] VITALS: BP 147/98; PULSE 96
[2023-07-01 20:30] VITALS: PULSE 93; RESP 16; O2SAT 96
[2023-07-01] MEDS: Doxazosin 1 MG Tablet PO (20:35)
[2023-07-01] MEDS: MELATONIN 3 MG TABLET PO (20:36)
[2023-07-01] MEDS: Senna Tablet 2 TABLET PO (20:36)
[2023-07-01 21:33] VITALS: BP 152/83; PULSE 85; RESP 16
[2023-07-02] MEDS: Multivitamins,Therapeutic Tablet 1 TABLET PO (09:11)
[2023-07-02] MEDS: Lisinopril 20 MG Tablet PO (09:11)
[2023-07-02] MEDS: Finasteride 5 MG Tablet PO (09:11)
[2023-07-02] MEDS: Acetaminophen 500 MG Tablet 1000 MG PO ×2 (09:16→16:28)
[2023-07-02] MEDS: Calcium Carb/Vitamin D 1 TABLET Tablet 0.5 TABLET PO ×2 (09:16→16:26)
[2023-07-02] MEDS: cloNIDine HCl 0.1 MG Tablet 0.100000000000000006 MG PO ×2 (09:17→21:37)
--- NOTE | 2023-07-02 09:49 | NURSING ---
Did not offer covid vaccine. Patient had covid-comirnaty vaccine in March 2023, not due for another dose.
[2023-07-02 10:00] VITALS: PULSE 92; RESP 16; O2SAT 93
[2023-07-02 13:05] VITALS: BMI 28.9
[2023-07-02 13:09] VITALS: BP 146/91; PULSE 92; RESP 18; TEMP 36.4; O2SAT 93
--- NOTE | 2023-07-02 13:17 | NURSING ---
Request for medication records sent to Dr Deras
[2023-07-02 21:34] VITALS: BP 188/98; PULSE 77; RESP 16
[2023-07-02] MEDS: MELATONIN 3 MG TABLET PO (21:38)
[2023-07-02] MEDS: Senna Tablet 2 TABLET PO (21:38)
[2023-07-02] MEDS: Doxazosin 1 MG Tablet PO (21:38)
[2023-07-02 22:40] VITALS: BP 143/80; RESP 16; O2SAT 73
--- NOTE | 2023-07-03 04:23 | NURSING ---
Written communication left for Dr. Camilo review this AM regarding noted confusion at times, elevated BP at times, and c/o neck pain requesting muscle relaxer be added to med list.
[2023-07-03] MEDS: Calcium Carb/Vitamin D 1 TABLET Tablet 0.5 TABLET PO ×2 (08:26→17:28)
[2023-07-03] MEDS: Losartan Potassium 100 MG Tablet PO (08:26)
[2023-07-03] MEDS: Baclofen 10 MG Tablet 5 MG PO (08:27)
[2023-07-03] MEDS: Finasteride 5 MG Tablet PO (08:27)
[2023-07-03] MEDS: Multivitamins,Therapeutic Tablet 1 TABLET PO (08:28)
[2023-07-03 08:30] VITALS: BP 108/75; PULSE 79
[2023-07-03 10:00] VITALS: RESP 16
[2023-07-03 11:38] LABS: Color, Urine Yellow (Yellow); Glucose, Dipstick Normal (Normal); Ketone-Dipstick 15 mg/dl (Negative); Leukocyte Esterase-Dipstick 25 /ul (Negative); Nitrite-Dipstick Negative (Negative); Occult Blood-Urine 25 /ul (Negative); Protein-Dipstick 100 mg/dl (Negative); Urine Bilirubin Dipstick Negative (Negative); Urine Clarity Clear (Clear); Urine Urobilinogen 1 mg/dl (Normal)
[2023-07-03 11:53] LABS: Bacteria 1+ /hpf (None Seen); Mucous, Urine 1+ /hpf (<or=2+); Red Blood Cells-Urine 0-5 SEEN /hpf (0-5); Squamous Epithelial Cells - UA 0-5 SEEN /hpf (0-5); White Blood Cells 0-5 SEEN /hpf (0-5)
[2023-07-03 14:44] VITALS: BP 163/94; PULSE 94; RESP 16; TEMP 36.7; O2SAT 91
--- NOTE | 2023-07-03 16:20 | CASEMGMT ---
Social Work IDT met with patient, sister and LOUIS for care plan meeting. Discussed patient's progress in PT/OT/ST/SN. Educated to [facility] insurance with NRD 07/02 and continued stay is not guaranteed with each review. IDT recommending SNF after TCU stay for NWBS up to 12 weeks. Pt is unable to return home alone, is at w/c level and x2 for ADLs. Pt is also having some cognitive deficits. Family noted prior to fall but has worsened. SW discussed SNF and financial liability. Pt has multiple annuities and would not currently qualify for [facility]. Pt and family expressed understanding to paying privately for SNF. 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 SW provided printed list of [facility] SNFs INN with pt's insurance with quality and resource data via [employer]. SW also updated pt/family insurance approved with NRD 07/09. Sister and LOUIS expressed appreciation for this worker's time and assistance. SW completed initial assessment with pt. Clarified LOUIS turned pt's entry 4 steps into 1 step, 4x4 platform with left HR, and 1 step into home. Sister noted pt's home is cluttered and messy and could not be w/c or walker accessible at this time. Sister stated she is working to get it cleaned up prior to return. SW inquired about advanced directives. Pt and sister both have copies and agreed to provide [facility] with copies. Pt confirmed code status as full code. BIMS () and PHQ-9 (05/27) completed for MDS assessment. Time spent with pt/family: 45 minutes Rayna Kaur, CENTRIFUGAL SEPARATOR SUPERINTENDENT OPERATIONS DIVISION
[2023-07-03] MEDS: Acetaminophen 500 MG Tablet 1000 MG PO (17:34)
[2023-07-03] MEDS: MENTHOL 226.8 GM JAR 1 APPLIC TOPICAL (18:45)
[2023-07-03 22:09] VITALS: BP 165/91; PULSE 73
[2023-07-03] MEDS: Senna Tablet 2 TABLET PO (22:14)
[2023-07-03] MEDS: MELATONIN 3 MG TABLET PO (22:14)
[2023-07-03] MEDS: Doxazosin 1 MG Tablet PO (22:14)
[2023-07-04 06:21] LABS: Cholesterol 158 mg/dL (200); High Density Lipoprotein 49 mg/dL; Triglycerides 77 mg/dL; Very Low Density Lipoprotein 15 mg/dL (5-40)
[2023-07-04] MEDS: Losartan Potassium 100 MG Tablet PO (07:56)
[2023-07-04] MEDS: Calcium Carb/Vitamin D 1 TABLET Tablet 0.5 TABLET PO ×2 (07:56→17:52)
[2023-07-04] MEDS: Multivitamins,Therapeutic Tablet 1 TABLET PO (07:56)
[2023-07-04] MEDS: Finasteride 5 MG Tablet PO (07:57)
--- NOTE | 2023-07-04 09:27 | NURSING ---
Wholesale Account Executive Note; MDS for 07/04/2023 Complete
[2023-07-04] MEDS: MENTHOL 226.8 GM JAR 1 APPLIC TOPICAL ×2 (09:29→22:54)
[2023-07-04 14:08] VITALS: BP 152/93; PULSE 108; RESP 16; TEMP 36.9; O2SAT 91
[2023-07-04 19:30] VITALS: RESP 16
[2023-07-04] MEDS: Senna Tablet 2 TABLET PO (22:54)
[2023-07-04] MEDS: MELATONIN 3 MG TABLET PO (22:55)
[2023-07-04] MEDS: Doxazosin 1 MG Tablet PO (22:55)
[2023-07-04 23:00] VITALS: BP 146/99; PULSE 80
[2023-07-05] MEDS: Calcium Carb/Vitamin D 1 TABLET Tablet 0.5 TABLET PO ×2 (11:22→18:05)
[2023-07-05] MEDS: Losartan Potassium 100 MG Tablet PO (11:22)
[2023-07-05] MEDS: Finasteride 5 MG Tablet PO (11:22)
[2023-07-05] MEDS: Multivitamins,Therapeutic Tablet 1 TABLET PO (11:22)
[2023-07-05] MEDS: MENTHOL 226.8 GM JAR 1 APPLIC TOPICAL ×2 (11:23→22:18)
[2023-07-05 11:30] VITALS: BP 147/97
[2023-07-05] MEDS: Tuberculin,Purif.prot.deriv. 50 TU/ML Vial 0.100000000000000006 ML ID (12:12)
--- NOTE | 2023-07-05 13:34 | NURSING ---
Updated patient and sister (by VM) that staff member tested covid positive.
[2023-07-05 14:22] VITALS: BP 164/92; PULSE 105; RESP 22; TEMP 36.8; O2SAT 93
[2023-07-05 22:00] VITALS: PULSE 87; RESP 18; O2SAT 95
[2023-07-05 22:15] VITALS: BP 172/99; PULSE 86; RESP 18
[2023-07-05] MEDS: cloNIDine HCl 0.1 MG Tablet 0.100000000000000006 MG PO (22:15)
[2023-07-05] MEDS: Doxazosin 1 MG Tablet PO (22:15)
[2023-07-05] MEDS: Baclofen 10 MG Tablet 5 MG PO (22:15)
[2023-07-05] MEDS: Senna Tablet 2 TABLET PO (22:16)
[2023-07-05] MEDS: MELATONIN 3 MG TABLET PO (22:16)
[2023-07-05 23:00] VITALS: BP 162/86; RESP 16
[2023-07-06 06:05] VITALS: BP 156/93; PULSE 77; RESP 16; O2SAT 96
[2023-07-06] MEDS: cloNIDine HCl 0.1 MG Tablet 0.100000000000000006 MG PO (06:08)
[2023-07-06] MEDS: MENTHOL 226.8 GM JAR 1 APPLIC TOPICAL ×2 (06:43→21:53)
[2023-07-06 06:52] VITALS: RESP 16
[2023-07-06] MEDS: Multivitamins,Therapeutic Tablet 1 TABLET PO (08:43)
[2023-07-06] MEDS: Calcium Carb/Vitamin D 1 TABLET Tablet 0.5 TABLET PO ×2 (08:43→16:17)
[2023-07-06] MEDS: Losartan Potassium 100 MG Tablet PO (08:43)
[2023-07-06] MEDS: Finasteride 5 MG Tablet PO (08:44)
[2023-07-06 15:55] VITALS: BP 150/97; PULSE 88; RESP 18; TEMP 36.7; O2SAT 95
[2023-07-06 16:27] VITALS: BP 156/87; PULSE 92
[2023-07-06] MEDS: Senna Tablet 2 TABLET PO (21:53)
[2023-07-06] MEDS: Acetaminophen 500 MG Tablet 1000 MG PO (21:54)
[2023-07-06] MEDS: Doxazosin 1 MG Tablet PO (21:54)
[2023-07-06] MEDS: MELATONIN 3 MG TABLET PO (21:54)
[2023-07-07] MEDS: Polyethylene Glycol 3350 17 GM PACKET PO (08:30)
[2023-07-07] MEDS: Losartan Potassium 100 MG Tablet PO (08:33)
[2023-07-07] MEDS: Finasteride 5 MG Tablet PO (08:33)
[2023-07-07] MEDS: Calcium Carb/Vitamin D 1 TABLET Tablet 0.5 TABLET PO ×2 (08:33→15:58)
[2023-07-07] MEDS: Multivitamins,Therapeutic Tablet 1 TABLET PO (08:34)
[2023-07-07 08:37] VITALS: BP 134/82; PULSE 91; TEMP 36.3; O2SAT 91
[2023-07-07] MEDS: MENTHOL 226.8 GM JAR 1 APPLIC TOPICAL ×2 (08:41→22:15)
[2023-07-07] MEDS: cloNIDine HCl 0.1 MG Tablet 0.100000000000000006 MG PO ×2 (15:57→22:18)
[2023-07-07 16:04] VITALS: BP 166/106; PULSE 98; RESP 16; TEMP 36.9; O2SAT 93
[2023-07-07 19:24] VITALS: BP 164/106
[2023-07-07 22:00] VITALS: PULSE 72; RESP 16; O2SAT 95
[2023-07-07] MEDS: MELATONIN 3 MG TABLET PO (22:15)
[2023-07-07] MEDS: Senna Tablet 2 TABLET PO (22:15)
[2023-07-07] MEDS: Acetaminophen 500 MG Tablet 1000 MG PO (22:16)
[2023-07-07] MEDS: Doxazosin 1 MG Tablet PO (22:16)
[2023-07-07 22:18] VITALS: BP 163/102
[2023-07-07 22:50] VITALS: BP 145/91
--- NOTE | 2023-07-08 00:47 | NURSING ---
Blood pressure at 10:18pm 163/102, P 72. PRN Clonidine administered. Rechecked at 10:55pm, BP 145/91. Will continue to monitor.
[2023-07-08] MEDS: Calcium Carb/Vitamin D 1 TABLET Tablet 0.5 TABLET PO ×2 (09:50→16:27)
[2023-07-08] MEDS: Multivitamins,Therapeutic Tablet 1 TABLET PO (09:50)
[2023-07-08] MEDS: Finasteride 5 MG Tablet PO (09:51)
[2023-07-08] MEDS: Polyethylene Glycol 3350 17 GM PACKET PO (09:51)
[2023-07-08] MEDS: Losartan Potassium 100 MG Tablet PO (09:51)
[2023-07-08 10:48] LABS: Absolute Lymphocyte Count 0.84 X10^3/uL (0.83-4.51); Absolute Neutrophil Count 4.8 X10^3/uL (2.0-7.7); Basophil# 0.03 X10^3/uL; Basophil% 0.4 % (0-1); Eosinophil# 0.04 X10^3/uL; Eosinophils% 0.6 % (0-5); Hematocrit 44.5 % (40-54); Hemoglobin 14.2 g/dL (13.0-16.5); Lymphocyte # 0.84 X10^3/ul (0.83-4.51); Lymphocyte % 11.7 % (19-41); Mean Corp Hgb Conc 31.9 g/dL (32-36); Mean Corpuscular Hgb 29.5 pg (27.0-32.0); Mean Corpuscular Volume 92.3 fL (80-94); Mean Platelet Vol. 9.9 fl (6.2-12.0); Monocyte# 1.35 X10^3/uL; Monocyte% 18.9 % (0-10); NRBC Flagged by Analyzer 0 % (0-5); Platelet Count 225 K/mm3 (150-450); RBC Distribution Width SD 43.8 fl (35.1-43.9); Red Blood Count 4.82 M/mm3 (4.6-6.2); White Blood Count 7.2 K/mm3 (4.4-11.0)
[2023-07-08 11:01] LABS: Anion Gap 4 (5-15); BUN 35 mg/dL (7-18); BUN/Creat Ratio 41.3 RATIO (10-20); Chloride 108 mmol/L (98-107); Creatinine, Serum 0.85 mg/dL (0.70-1.30); EST Glomerular Filtration Rate 91 mL/min (>60); Est Glom Filt Rate - Afr Amer 110 mL/min (>60); Glucose 107 mg/dL (74-106); Sodium Level 141 mmol/L (136-145)
--- NOTE | 2023-07-08 11:50 | MDS.RN ---
Information for the mds was obtained from review of the clinical record, interview of resident, staff, and direct observation of resident's care.
[2023-07-08] MEDS: cloNIDine HCl 0.1 MG Tablet 0.100000000000000006 MG PO (15:33)
[2023-07-08 15:54] VITALS: BP 158/108; PULSE 96; RESP 16; TEMP 36.9; O2SAT 97
[2023-07-08] MEDS: MENTHOL 226.8 GM JAR 1 APPLIC TOPICAL (16:27)
[2023-07-08] MEDS: amLODIPine 5 MG Tablet PO (16:54)
--- NOTE | 2023-07-08 18:37 | NURSING ---
Addendum entered by Pita Alford 07/08/23 19:28: Recheck BP 152/89 Original Note: Bp 158/108 at 150. PRN clonidine administered and recheck at 1630 is 171/109. Dr. Camilo made aware and one time dose of amlodipine ordered and administered and Dr. Camilo reports to recheck at 1900.
--- NOTE | 2023-07-08 19:29 | NURSING ---
Sister comes to tell this nurse that Neuro appointment in [place] canceled for 07/[address] not working at site. Appointment is rescheduled by family for 07/16/23 at 1045. Family reports they plan to transport patient to this appointment and leave with patient at 0845. Patient now leaving at 1215 on 07/09/23 for ortho appt in [place].
[2023-07-08] MEDS: MELATONIN 3 MG TABLET PO (22:13)
[2023-07-08] MEDS: Senna Tablet 2 TABLET PO (22:13)
[2023-07-08] MEDS: Doxazosin 1 MG Tablet PO (22:13)
[2023-07-08 22:15] VITALS: BP 158/91; PULSE 90
[2023-07-08 23:47] VITALS: BP 161/96; PULSE 87
[2023-07-09] MEDS: cloNIDine HCl 0.1 MG Tablet 0.100000000000000006 MG PO ×2 (00:18→21:07)
[2023-07-09 01:36] VITALS: BP 145/89
[2023-07-09] MEDS: Finasteride 5 MG Tablet PO (08:27)
[2023-07-09] MEDS: Calcium Carb/Vitamin D 1 TABLET Tablet 0.5 TABLET PO ×2 (08:27→16:39)
[2023-07-09] MEDS: Multivitamins,Therapeutic Tablet 1 TABLET PO (08:28)
[2023-07-09] MEDS: Losartan Potassium 100 MG Tablet PO (08:28)
[2023-07-09] MEDS: Polyethylene Glycol 3350 17 GM PACKET PO (08:28)
[2023-07-09 08:32] VITALS: BP 160/101; PULSE 100
[2023-07-09] MEDS: MENTHOL 226.8 GM JAR 1 APPLIC TOPICAL ×3 (10:09→21:08)
[2023-07-09 11:40] VITALS: BMI 29.2
[2023-07-09 13:57] VITALS: BP 140/96; PULSE 88; RESP 16; TEMP 36.4; O2SAT 98
--- NOTE | 2023-07-09 16:01 | NURSING ---
Patient returned from appt. w/ Dr. Valdez, orders to be PWB x2 weeks in walker boot then WBAT. Follow-up w/ Dr. Valdez in 4 weeks.
[2023-07-09] MEDS: Acetaminophen 500 MG Tablet 1000 MG PO (16:38)
--- NOTE | 2023-07-09 20:16 | NURSING ---
Patient had medium BM after supper. Refused SSE at this time. Will continue to monitor.
[2023-07-09] MEDS: Doxazosin 1 MG Tablet PO (21:06)
[2023-07-09] MEDS: MELATONIN 3 MG TABLET PO (21:06)
[2023-07-09] MEDS: Senna Tablet 2 TABLET PO (21:06)
--- NOTE | 2023-07-10 01:56 | NURSING ---
Late entry for 07/09/23 at 1715: Spoke w/ Dr. Camilo on unit to update on pt's constipation- no BM x 3 days and no PRN medications ordered. Pt given warm prune juice this evening. Has been taking Miralax and Senna as ordered. Pt was instructed to increase intake of water. Verbal order received and read back to administer a SSE.
[2023-07-10] MEDS: Multivitamins,Therapeutic Tablet 1 TABLET PO (08:28)
[2023-07-10] MEDS: Polyethylene Glycol 3350 17 GM PACKET PO (08:28)
[2023-07-10] MEDS: Calcium Carb/Vitamin D 1 TABLET Tablet 0.5 TABLET PO ×2 (08:28→16:58)
[2023-07-10] MEDS: Finasteride 5 MG Tablet PO (08:28)
[2023-07-10] MEDS: Losartan Potassium 100 MG Tablet PO (08:28)
[2023-07-10] MEDS: MENTHOL 226.8 GM JAR 1 APPLIC TOPICAL (08:32)
[2023-07-10 08:33] VITALS: BP 146/85; PULSE 100
--- NOTE | 2023-07-10 10:46 | CASEMGMT ---
Social Work SW phoned sister to follow up on DC plans. Sister stated pt received PWBS from ortho appt yesterday, and neuro appt was rescheduled to 07/16. Sister also stated she and have to go out of town from 07/18-07/22 and would not be available to assist with pt's DC. SW informed sister of insurance NRD 07/15 and if continued stay is not approved, earliest DC would be 07/18. However, offered for earlier DC to accommodate family's schedule. Sister was not thrilled with that plan, but this worker encouraged sister to plan ahead in case the DC does happen, now knowing ahead of time. SW inquired about SNFs to place referrals. Sister requested [facility] and [facility]. SW reeducated to private pay room and board and part B therapies. Sister expressed understanding. SW will continue to follow. SW placed referrals to all SNFs via [employer]. Rayna Kaur, DRONE PILOT PYTHON JAVA DEVELOPER
[2023-07-10] MEDS: Acetaminophen 500 MG Tablet 1000 MG PO ×2 (12:27→21:35)
[2023-07-10 12:52] VITALS: BP 145/89; PULSE 99; RESP 12; TEMP 36.7; O2SAT 95
--- NOTE | 2023-07-10 13:43 | NURSING ---
Left VM with Dr. Valdez's office requesting return call with orders for care to incision site and if patient may shower.
[2023-07-10] MEDS: Magnesium Citrate 300 ML PO (18:26)
[2023-07-10 21:30] VITALS: BP 166/108; PULSE 75
[2023-07-10] MEDS: Doxazosin 1 MG Tablet PO (21:32)
[2023-07-10] MEDS: MELATONIN 3 MG TABLET PO (21:32)
[2023-07-10] MEDS: cloNIDine HCl 0.1 MG Tablet 0.100000000000000006 MG PO (21:36)
[2023-07-10 22:57] VITALS: BP 148/92; PULSE 70
[2023-07-11] MEDS: Calcium Carb/Vitamin D 1 TABLET Tablet 0.5 TABLET PO ×2 (08:19→16:58)
[2023-07-11] MEDS: Losartan Potassium 100 MG Tablet PO (08:19)
[2023-07-11] MEDS: Multivitamins,Therapeutic Tablet 1 TABLET PO (08:20)
[2023-07-11] MEDS: Polyethylene Glycol 3350 17 GM PACKET PO (08:20)
[2023-07-11] MEDS: Finasteride 5 MG Tablet PO (08:20)
[2023-07-11] MEDS: Acetaminophen 500 MG Tablet 1000 MG PO ×3 (08:25→23:37)
[2023-07-11] MEDS: cloNIDine HCl 0.1 MG Tablet 0.100000000000000006 MG PO ×2 (08:26→17:01)
[2023-07-11 13:12] VITALS: BP 159/96; PULSE 80; RESP 18; TEMP 36.1; O2SAT 96
[2023-07-11 17:02] VITALS: BP 141/91; PULSE 83
[2023-07-11 20:38] VITALS: RESP 16
[2023-07-11] MEDS: MENTHOL 226.8 GM JAR 1 APPLIC TOPICAL (21:48)
[2023-07-11] MEDS: Senna Tablet 2 TABLET PO (21:49)
[2023-07-11] MEDS: Doxazosin 1 MG Tablet PO (21:49)
[2023-07-11] MEDS: MELATONIN 3 MG TABLET PO (21:50)
[2023-07-11 21:56] VITALS: BP 140/86; PULSE 72
[2023-07-12] MEDS: Polyethylene Glycol 3350 17 GM PACKET PO (08:24)
[2023-07-12] MEDS: Finasteride 5 MG Tablet PO (08:24)
[2023-07-12] MEDS: Losartan Potassium 100 MG Tablet PO (08:24)
[2023-07-12] MEDS: Calcium Carb/Vitamin D 1 TABLET Tablet 0.5 TABLET PO ×2 (08:24→17:10)
[2023-07-12] MEDS: Multivitamins,Therapeutic Tablet 1 TABLET PO (08:25)
--- NOTE | 2023-07-12 12:55 | CASEMGMT ---
Social Work SW spoke with pt and sister to update [facility] and [facility] can accept. [facility] can accept clinically, but may not have beds. [facility] only has a semi private room open. Pt and sister agree to [facility]. SW updated all facilities. Will await outcome from insurance update 07/15. MYRTLE LopezW
[2023-07-12 16:00] VITALS: BP 159/92; PULSE 92; RESP 18; TEMP 36.4; O2SAT 94
[2023-07-12] MEDS: cloNIDine HCl 0.1 MG Tablet 0.100000000000000006 MG PO (17:16)
[2023-07-12 17:17] VITALS: BP 172/99; PULSE 80
--- NOTE | 2023-07-12 18:16 | NURSING ---
Received phone call from Dr. Valdez office N.O. received for shower privileges and may leave incision open to air as long as no drainage is noted.
[2023-07-12 18:51] VITALS: BP 132/86; PULSE 91
[2023-07-12] MEDS: Acetaminophen 500 MG Tablet 1000 MG PO (18:53)
[2023-07-12 21:50] VITALS: BP 153/90; PULSE 67; RESP 16
[2023-07-12] MEDS: MELATONIN 3 MG TABLET PO (21:53)
[2023-07-12] MEDS: Doxazosin 1 MG Tablet PO (21:53)
[2023-07-12] MEDS: Senna Tablet 2 TABLET PO (21:53)
[2023-07-13] MEDS: cloNIDine HCl 0.1 MG Tablet 0.100000000000000006 MG PO ×2 (06:07→22:31)
[2023-07-13 06:10] VITALS: BP 170/88; PULSE 64; RESP 16
[2023-07-13 07:03] VITALS: BP 164/84; PULSE 60; RESP 16
[2023-07-13 08:42] VITALS: BP 127/79; PULSE 95; RESP 16; TEMP 36.4; O2SAT 98
[2023-07-13] MEDS: Multivitamins,Therapeutic Tablet 1 TABLET PO (08:46)
[2023-07-13] MEDS: Calcium Carb/Vitamin D 1 TABLET Tablet 0.5 TABLET PO ×2 (08:46→17:59)
[2023-07-13] MEDS: Losartan Potassium 100 MG Tablet PO (08:47)
[2023-07-13] MEDS: Finasteride 5 MG Tablet PO (08:48)
[2023-07-13] MEDS: Polyethylene Glycol 3350 17 GM PACKET PO (08:48)
[2023-07-13 22:20] VITALS: BP 166/99; PULSE 73; RESP 14; TEMP 36.3; O2SAT 96
[2023-07-13] MEDS: Senna Tablet 2 TABLET PO (22:31)
[2023-07-13] MEDS: Doxazosin 1 MG Tablet PO (22:31)
[2023-07-13] MEDS: MELATONIN 3 MG TABLET PO (22:31)
[2023-07-14 08:55] VITALS: BP 140/86; PULSE 95; RESP 17; TEMP 36.7; O2SAT 96
[2023-07-14] MEDS: Losartan Potassium 100 MG Tablet PO (08:57)
[2023-07-14] MEDS: Polyethylene Glycol 3350 17 GM PACKET PO (08:57)
[2023-07-14] MEDS: Multivitamins,Therapeutic Tablet 1 TABLET PO (08:57)
[2023-07-14] MEDS: Calcium Carb/Vitamin D 1 TABLET Tablet 0.5 TABLET PO ×2 (08:57→17:33)
[2023-07-14] MEDS: Finasteride 5 MG Tablet PO (08:58)
--- NOTE | 2023-07-14 21:14 | NURSING ---
Spoke w/ pt re: consistently elevated BPs. This nurse was informed per another staff member that pt had been taking HCTZ in the past and pt requested medication be dc'ed approximately 6 months ago per his PCP at an office visit d/t increased urination. Had been on HCTZ for approximately 6 months prior. Explained desired effect of HCTZ to promote improved BP control and risks of elevated BPs including but not limited to MS and/or CVA. Pt is agreeable to restarting HCTZ if Dr. Camilo will place the order. Spoke w/ Dr. Camilo via phone to update on conversation noted above and that pt has received Catapres fairly routine per AUG. New order received and read back for HCTZ 12.5 mg po daily. Pt updated on new order and verbalizes understanding.
[2023-07-14] MEDS: MELATONIN 3 MG TABLET PO (21:25)
[2023-07-14] MEDS: Senna Tablet 2 TABLET PO (21:25)
[2023-07-14] MEDS: cloNIDine HCl 0.1 MG Tablet 0.100000000000000006 MG PO (21:25)
[2023-07-14] MEDS: Doxazosin 1 MG Tablet PO (21:25)
[2023-07-15 05:39] LABS: Absolute Lymphocyte Count 1.09 X10^3/uL (0.83-4.51); Absolute Neutrophil Count 3.3 X10^3/uL (2.0-7.7); Basophil# 0.02 X10^3/uL; Basophil% 0.4 % (0-1); Eosinophil# 0.04 X10^3/uL; Eosinophils% 0.7 % (0-5); Hematocrit 43.3 % (40-54); Hemoglobin 14.2 g/dL (13.0-16.5); Lymphocyte # 1.09 X10^3/ul (0.83-4.51); Lymphocyte % 19.8 % (19-41); Mean Corp Hgb Conc 32.8 g/dL (32-36); Mean Corpuscular Hgb 29.4 pg (27.0-32.0); Mean Corpuscular Volume 89.6 fL (80-94); Mean Platelet Vol. 9.7 fl (6.2-12.0); Monocyte# 0.98 X10^3/uL; Monocyte% 17.8 % (0-10); NRBC Flagged by Analyzer 0 % (0-5); Neutrophil % 59.8 % (47-70); Platelet Count 263 K/mm3 (150-450); RBC Distribution Width CV 12.3 % (11.6-14.6); RBC Distribution Width SD 40.9 fl (35.1-43.9); Red Blood Count 4.83 M/mm3 (4.6-6.2); White Blood Count 5.5 K/mm3 (4.4-11.0)
[2023-07-15 06:00] LABS: Anion Gap 6 (5-15); BUN 21 mg/dL (7-18); BUN/Creat Ratio 25.7 RATIO (10-20); Calcium,Total 9.2 mg/dL (8.5-10.1); Chloride 106 mmol/L (98-107); Creatinine, Serum 0.82 mg/dL (0.70-1.30); EST Glomerular Filtration Rate 95 mL/min (>60); Est Glom Filt Rate - Afr Amer 115 mL/min (>60); Estimated Creatinine Clearance 76.85 ml/min; Glucose 96 mg/dL (74-106); Potassium 3.6 mmol/L (3.5-5.1); Sodium Level 139 mmol/L (136-145)
[2023-07-15] MEDS: Multivitamins,Therapeutic Tablet 1 TABLET PO (08:16)
[2023-07-15] MEDS: Calcium Carb/Vitamin D 1 TABLET Tablet 0.5 TABLET PO ×2 (08:16→16:29)
[2023-07-15] MEDS: Losartan Potassium 100 MG Tablet PO (08:16)
[2023-07-15] MEDS: Polyethylene Glycol 3350 17 GM PACKET PO (08:16)
[2023-07-15] MEDS: Finasteride 5 MG Tablet PO (08:16)
[2023-07-15] MEDS: hydroCHLOROthiazide 12.5mg 12.5 MG PO (08:16)
[2023-07-15 08:33] VITALS: BP 179/112
[2023-07-15 16:00] VITALS: BP 155/107; PULSE 104; RESP 16; TEMP 36.8; O2SAT 95
--- NOTE | 2023-07-15 16:24 | CASEMGMT ---
Addendum entered by Rayna Kaur 07/16/23 11:18: PASRR completed. Original Note: Social Work Insurance issued LCD 07/17, DC 07/18. SW phoned sister to update and confirm DC to [facility]. Pt changed his mind d/t [facility] not having a private room and prefers [facility]. Family will be out of town to transport but a friend can transport pt.. SW spoke with pt to update and confirmed DC to [facility]. SW updated [facility] and [facility] via [employer]. SW to complete PASRR. Plan: DC 07/18 to [facility], intermediate, part B therapies Rayna Kaur, MYRTLE HOOKERW
[2023-07-15] MEDS: cloNIDine HCl 0.1 MG Tablet 0.100000000000000006 MG PO ×2 (16:34→23:17)
[2023-07-15 16:37] VITALS: BP 171/111; PULSE 95
[2023-07-15] MEDS: Chlorthalidone 50 MG Tablet 25 MG PO (17:13)
[2023-07-15 18:27] VITALS: BP 154/106; PULSE 110
[2023-07-15 20:32] VITALS: BP 158/103; PULSE 101
[2023-07-15] MEDS: MENTHOL 226.8 GM JAR 1 APPLIC TOPICAL (21:06)
[2023-07-15] MEDS: Senna Tablet 2 TABLET PO (21:07)
[2023-07-15] MEDS: MELATONIN 3 MG TABLET PO (21:07)
[2023-07-15] MEDS: Doxazosin 1 MG Tablet PO (21:07)
[2023-07-15 23:19] VITALS: BP 155/100; PULSE 96
[2023-07-16] VITALS: BP 147/94; PULSE 96
[2023-07-16 02:00] VITALS: BP 134/89
[2023-07-16 08:30] VITALS: BP 167/99; PULSE 106; RESP 18; TEMP 36.4; O2SAT 94
[2023-07-16] MEDS: Finasteride 5 MG Tablet PO (08:32)
[2023-07-16] MEDS: Losartan Potassium 100 MG Tablet PO (08:32)
[2023-07-16] MEDS: Calcium Carb/Vitamin D 1 TABLET Tablet 0.5 TABLET PO ×2 (08:32→17:02)
[2023-07-16] MEDS: Chlorthalidone 50 MG Tablet 25 MG PO (08:33)
[2023-07-16] MEDS: Multivitamins,Therapeutic Tablet 1 TABLET PO (08:33)
[2023-07-16] MEDS: cloNIDine HCl 0.1 MG Tablet 0.100000000000000006 MG PO (08:36)
[2023-07-16] MEDS: Acetaminophen 500 MG Tablet 1000 MG PO (08:37)
[2023-07-16 10:00] VITALS: O2SAT 94
--- NOTE | 2023-07-16 13:27 | NURSING ---
pt returned from appt at 1235.
[2023-07-16 17:20] VITALS: BMI 28.8
--- NOTE | 2023-07-16 20:08 | DS.PCM_ITS ---
Providers Date of Admission: 06/27/23 Primary Care Physician: Dr. Vadim Deras MD Reason For Visit: LEFT SUBDURAL HEMATOMA, LEFT ANKLE ORIF Diagnosis Discharge Diagnosis (1) Debility: Status: Acute Code(s): R53.81 - Other malaise (2) Fall: Status: Inactive Code(s): W19.XXXA - Unspecified fall, initial encounter Qualifiers: Encounter type: subsequent encounter Qualified Code(s): W19.XXXD - Unspecified fall, subsequent encounter (3) Traumatic intracranial subdural hematoma: Status: Inactive Code(s): S06.5XAA - Traumatic subdural hemorrhage with loss of consciousness status unknown, initial encounter Qualifiers: Encounter type: subsequent encounter Loss of consciousness presence/duration: without LOC Qualified Code(s): S06.5X0D - Traumatic subdural hemorrhage without loss of consciousness, subsequent encounter (4) Bimalleolar fracture of left ankle: Status: Acute Code(s): S82.842A - Displaced bimalleolar fracture of left lower leg, initial encounter for closed fracture Qualifiers: Encounter type: subsequent encounter Fracture type: closed (5) History of open reduction and internal fixation (ORIF) procedure: Status: Acute Code(s): Z98.890 - Other specified postprocedural states (6) Thrombocytopenia: Status: Acute Code(s): D69.6 - Thrombocytopenia, unspecified (7) Overactive bladder: Status: Acute Code(s): N32.81 - Overactive bladder (8) BPH (benign prostatic hyperplasia): Status: Acute Code(s): N40.0 - Benign prostatic hyperplasia without lower urinary tract symptoms Qualifiers: Lower urinary tract symptom presence: symptoms absent Qualified Code(s): N40.0 - Benign prostatic hyperplasia without lower urinary tract symptoms (9) Hypercholesterolemia: Status: Acute Code(s): E78.00 - Pure hypercholesterolemia, unspecified (10) Hypertension: Status: Chronic Code(s): I10 - Essential (primary) hypertension Qualifiers: Hypertension type: primary hypertension Qualified Code(s): I10 - Essential (primary) hypertension (11) Adverse reaction to drug that primarily affects musculoskeletal system: Status: Acute Code(s): T48.205A - Adverse effect of unspecified drugs acting on muscles, initial encounter Medications at Discharge Home Medications doxazosin 1 mg tablet 1 mg PO DAILY BP 12/22/23 finasteride 5 mg tablet 5 mg PO DAILY Bladder 06/21/23 melatonin 3 mg capsule 3 mg PO DAILY Sleep 06/21/23 Lactobacillus acidophilus 250 million cell capsule (Probiotic Acidophilus) 500 mmu cells PO DAILY Probiotic 06/27/23 acetaminophen 500 mg capsule 1,000 mg PO Q6H PRN pain 06/27/23 sennosides 8.6 mg capsule (senna) 17.2 mg PO QHS Constipation 06/27/23 calcium carbonate 500 mg-vitamin D3 5 mcg (200 unit) tablet (Oyster Shell Calcium-Vitamin D3) 0.5 tab PO BIDCM #0 tabs 07/16/23 chlorthalidone 50 mg tablet 25 mg (1/2 x 50 mg) PO DAILY #0 tabs 07/16/23 clonidine HCl 0.1 mg tablet 0.1 mg PO Q6H PRN PRN SYS>165 DIAST>85 #0 tabs 07/16/23 losartan 100 mg tablet 100 mg PO DAILY #0 tabs 07/16/23 menthol 2 % topical gel (Blue Gel) 1 applic topical TID PRN PRN Pain Score 1-10 #0 grams 07/16/23 multivitamin 1 tab PO BREAKFAST #0 tabs 07/16/23 polyethylene glycol 3350 17 gram oral powder packet 17 g PO DAILY #0 ea 07/16/23 Hospital Course Operations None Procedures None Summary of Care Provided Minutes Spent on Discharge: 35 Hospital Course: 88 year old male with below past medical history hospitalized for SDH, left ankle fracture s/p ORIF 06/23/[address] Valdez, admitted to TCU with debility, here for rehabilitation, strengthening, prior to disposition determination. Discharge 07/18/2023, [facility], intermediate, part B therapies. Physical Exam Const alert General Appearance: cooperative HEENT normocephalic Eyes PERRL and EOMs intact bilaterally Neck supple, no JVD and no carotid bruits Resp normal respiratory effort, normal air movement and clear to auscultation bilaterally Cardio regular rate and regular rhythm GI normal to inspection, nondistended, normoactive bowel sounds, non-tender and non-distended Extremity normal capillary refill General Extremity: Negative for edema Skin no rashes or lesions noted General Skin Exam: no breakdown Psych affect normal Appearance: appropriate Weight / BMI Weight Weight: 96.57 kg Body Mass Index (BMI) 28.8 ABG / Lab / Microbiology Data 07/15/23 05:18 07/15/23 05:18 Microbiology: Microbiology 07/16/23 04:50 Nasal Secretion SARS-CoV-2 Antigen (Rapid) - Final 07/11/23 05:05 Nasal Secretion SARS-CoV-2 Antigen (Rapid) - Final 07/08/23 06:40 Nasal Secretion SARS-CoV-2 Antigen (Rapid) - Final 07/03/23 10:00 Urine, Catheterized Urine Culture - Final Culture exhibits no growth. 07/05/23 04:59 Nasal Secretion SARS-CoV-2 Antigen (Rapid) - Final 07/02/23 05:50 Nasal Secretion SARS-CoV-2 Antigen (Rapid) - Final 06/28/23 05:25 Nasal Secretion SARS-CoV-2 Antigen (Rapid) - Final D/C Instructions Discharge Diet: No restrictions Discharge Activity: Return to Normal Activity, May Shower and Use Walker Weight Bearing Status: Partial weight bearing (Left lower extremity.) Call your doctor if you observe: Fever of 101 or Higher, Inability to urinate, Inability to have a bowel movement, Shortness of breath, Dizziness, Fainting spells, Swelling in the ankles, Chest pain and Uncontrolled pain Additional Instructions: Discharge 07/18/2023, [facility], intermediate, part B therapies. Please Follow Up With: Bonifacio Valdez MD When: As scheduled. Meaningful Use Info Meaningful Use Diagnoses (Choose all that apply): None applicable Discharge Plan Admission Admit Date/Time: 06/27/23 18:19 Primary Reason for Your Visit: Debility. Attending Provider: Mirian Farris Primary Care Provider: Vadim Deras Instructions Additional Instructions / Restrictions: Discharge 07/18/2023, [facility], intermediate, part B therapies. Discharge Orders/Prescriptions Prescriptions: New multivitamin Tablet 1 tab PO BREAKFAST Qty: 0 0RF clonidine HCl 0.1 mg Tablet 0.1 mg PO Q6H PRN PRN (Reason: SYS>165 DIAST>85) Qty: 0 0RF polyethylene glycol 3350 17 gram Powder In Packet 17 g PO DAILY Qty: 0 0RF chlorthalidone 50 mg Tablet 25 mg PO DAILY Qty: 0 0RF losartan 100 mg Tablet 100 mg PO DAILY Qty: 0 0RF menthol [Blue Gel] 2 % Gel 1 applic topical TID PRN PRN (Reason: Pain Score 1-10) Qty: 0 0RF calcium carbonate-vitamin D3 [Oyster Shell Calcium-Vit D3] 500 mg-5 mcg (200 unit) Tablet 0.5 tab PO BIDCM Qty: 0 0RF Continued doxazosin 1 mg tablet 1 mg PO DAILY finasteride 5 mg tablet 5 mg PO DAILY melatonin 3 mg capsule 3 mg PO DAILY acetaminophen 500 mg capsule 1,000 mg PO Q6H PRN (Reason: pain) senna 8.6 mg capsule 17.2 mg PO QHS Probiotic Acidophilus 250 million cell capsule 500 mmu cells PO DAILY Discontinued lisinopril 20 mg tablet 20 mg PO DAILY pravastatin 20 mg tablet 20 mg PO DAILY aspirin 81 mg tablet,chewable 81 mg PO BID Hold Instructions: Ordered levetiracetam 500 mg tablet 500 mg PO BID Referrals / Follow Up: Bonifacio Valdez [Other] (Follow-up 4 weeks from last appt. ) Nicolás Matta MD [Other] - 08/02/23 1:00 pm Vadim Deras MD [Primary Care Provider] - Disposition Disposition (needs filled in before D/C Order can be placed): NonSkilled NH/Intermed Care
--- NOTE | 2023-07-16 20:17 | TREXTCAR_ITS ---
Diet Diet Order/Speech Therapy: 06/28/23 06:09 Diet: Regular - General Food consistency:: Regular Liquid Consistency:: Regular/Thin Is pt able to select menu?: Yes Routine Orders/Code Status Code Status: Full Code Wound(s) Left ankle: Wound Type: Surgical Incision Dressing Change: surgical dressing Therapies Extremity Affected:: Left Lower Physical Therapy: Eval and Treat Occupational Therapy: Eval and Treat Problem/Diagnosis (1) Debility: Status: Acute Code(s): R53.81 - Other malaise (2) Fall: Status: Inactive Code(s): W19.XXXA - Unspecified fall, initial encounter (3) Traumatic intracranial subdural hematoma: Status: Inactive Code(s): S06.5XAA - Traumatic subdural hemorrhage with loss of consciousness status unknown, initial encounter (4) Bimalleolar fracture of left ankle: Status: Acute Code(s): S82.842A - Displaced bimalleolar fracture of left lower leg, initial encounter for closed fracture (5) History of open reduction and internal fixation (ORIF) procedure: Status: Acute Code(s): Z98.890 - Other specified postprocedural states Comment: Bimalleolar left ankle fracture on 06/23/2023. (6) Thrombocytopenia: Status: Acute Code(s): D69.6 - Thrombocytopenia, unspecified (7) Overactive bladder: Status: Acute Code(s): N32.81 - Overactive bladder (8) BPH (benign prostatic hyperplasia): Status: Acute Code(s): N40.0 - Benign prostatic hyperplasia without lower urinary tract symptoms (9) Hypercholesterolemia: Status: Acute Code(s): E78.00 - Pure hypercholesterolemia, unspecified (10) Hypertension: Status: Chronic Code(s): I10 - Essential (primary) hypertension (11) Adverse reaction to drug that primarily affects musculoskeletal system: Status: Acute Code(s): T48.205A - Adverse effect of unspecified drugs acting on muscles, initial encounter Comment: Bilateral anterior thigh weakness/myalgia with pravastatin Allergies/Procedures Done in Hospital Allergies salicylic acid Allergy (Verified 10/17/22 13:45) Swelling clearasil Procedures: None Type of Care/Length of Stay Estimated LOS: More Than 30 Days Type of Care Needed: Intermediate Rehab Potential: Good Prognosis: Good Additional Orders/Day of Discharge Additional Orders: part B therapies Day of Discharge: 07/18/23 Dietary and Speech Recommendations Dietitian Recommendations/Changes: Continue liberal regular diet per res preference Follow Up Care Please Follow Up With: Bonifacio Valdez MD When: 10 days Please Follow Up With: Nicolás Matta MD When: 2 weeks Please Follow Up With: Nicolás Matta MD Discharge Plan Admission Admit Date/Time: 06/27/23 18:19 Primary Reason for Your Visit: Debility. Attending Provider: Mirian Farris Primary Care Provider: Vadim Deras Instructions Additional Instructions / Restrictions: Discharge 07/18/2023, [facility], [facility], part B erapies. Discharge Orders/Prescriptions Prescriptions: New multivitamin Tablet 1 tab PO BREAKFAST Qty: 0 0RF clonidine HCl 0.1 mg Tablet 0.1 mg PO Q6H PRN PRN (Reason: SYS>165 DIAST>85) Qty: 0 0RF polyethylene glycol 3350 17 gram Powder In Packet 17 g PO DAILY Qty: 0 0RF chlorthalidone 50 mg Tablet 25 mg PO DAILY Qty: 0 0RF losartan 100 mg Tablet 100 mg PO DAILY Qty: 0 0RF menthol [Blue Gel] 2 % Gel 1 applic topical TID PRN PRN (Reason: Pain Score 1-10) Qty: 0 0RF calcium carbonate-vitamin D3 [Oyster Shell Calcium-Vit D3] 500 mg-5 mcg (200 unit) Tablet 0.5 tab PO BIDCM Qty: 0 0RF Continued doxazosin 1 mg tablet 1 mg PO DAILY finasteride 5 mg tablet 5 mg PO DAILY melatonin 3 mg capsule 3 mg PO DAILY acetaminophen 500 mg capsule 1,000 mg PO Q6H PRN (Reason: pain) senna 8.6 mg capsule 17.2 mg PO QHS Probiotic Acidophilus 250 million cell capsule 500 mmu cells PO DAILY Discontinued lisinopril 20 mg tablet 20 mg PO DAILY pravastatin 20 mg tablet 20 mg PO DAILY aspirin 81 mg tablet,chewable 81 mg PO BID Hold Instructions: Ordered levetiracetam 500 mg tablet 500 mg PO BID Referrals / Follow Up: Bonifacio Valdez [Other] (Follow-up 4 weeks from last appt. ) Nicolás Matta MD [Other] - 08/02/23 1:00 pm Vadim Deras MD [Primary Care Provider] - Disposition Disposition (needs filled in before D/C Order can be placed): NonSkilled NH/Intermed Care (2) Fall Qualifiers: Encounter type: subsequent encounter Qualified Code(s): W19.XXXD - Unspecified fall, subsequent encounter (3) Traumatic intracranial subdural hematoma Qualifiers: Encounter type: subsequent encounter Loss of consciousness presence/duration: without LOC Qualified Code(s): S06.5X0D - Traumatic subdural hemorrhage without loss of consciousness, subsequent encounter (4) Bimalleolar fracture of left ankle Qualifiers: Encounter type: subsequent encounter Fracture type: closed (8) BPH (benign prostatic hyperplasia) Qualifiers: Lower urinary tract symptom presence: symptoms absent Qualified Code(s): N40.0 - Benign prostatic hyperplasia without lower urinary tract symptoms (10) Hypertension Qualifiers: Hypertension type: primary hypertension Qualified Code(s): I10 - Essential (primary) hypertension
[2023-07-16] MEDS: Senna Tablet 2 TABLET PO (21:27)
[2023-07-16] MEDS: Doxazosin 1 MG Tablet PO (21:28)
[2023-07-16] MEDS: MELATONIN 3 MG TABLET PO (21:28)
[2023-07-16 21:31] VITALS: BP 144/85; PULSE 75
[2023-07-17] MEDS: Chlorthalidone 50 MG Tablet 25 MG PO (08:03)
[2023-07-17] MEDS: Multivitamins,Therapeutic Tablet 1 TABLET PO (08:04)
[2023-07-17] MEDS: Losartan Potassium 100 MG Tablet PO (08:04)
[2023-07-17] MEDS: Calcium Carb/Vitamin D 1 TABLET Tablet 0.5 TABLET PO ×2 (08:04→17:53)
[2023-07-17] MEDS: Finasteride 5 MG Tablet PO (08:04)
[2023-07-17 08:16] VITALS: BP 144/90; PULSE 96
[2023-07-17 15:28] VITALS: BP 135/98; PULSE 89; RESP 16; TEMP 36.8; O2SAT 96
[2023-07-17] MEDS: MELATONIN 3 MG TABLET PO (22:04)
[2023-07-17] MEDS: Doxazosin 1 MG Tablet PO (22:04)
[2023-07-18] MEDS: Acetaminophen 500 MG Tablet 1000 MG PO (00:03)
[2023-07-18] MEDS: Calcium Carb/Vitamin D 1 TABLET Tablet 0.5 TABLET PO (07:53)
[2023-07-18] MEDS: Multivitamins,Therapeutic Tablet 1 TABLET PO (07:53)
[2023-07-18] MEDS: Losartan Potassium 100 MG Tablet PO (07:54)
[2023-07-18] MEDS: Chlorthalidone 50 MG Tablet 25 MG PO (07:54)
[2023-07-18] MEDS: Finasteride 5 MG Tablet PO (07:55)
--- NOTE | 2023-07-18 09:30 | NURSING ---
Patient discharge to [facility] at this time with friend, transported by w/c. Report called to nurse at [facility] at 0845 and discharge packet sent. Patient denies any questions on discharge.
[2023-07-18 11:04] VITALS: BP 140/95; PULSE 77; RESP 16; TEMP 36.5; O2SAT 94
--- NOTE | 2023-07-18 13:15 | CASEMGMT ---
Social Work BIMS () and PHQ-2 () completed for MDS assessment. Rayna Kaur MSW [employer]
== END 2023-07-18 09:30 | disposition intermediate care facility (04) | DRG 561 ==
PROVIDERS: Family Medicine Geriatric Medicine; Admitting Provider Internal Medicine; PCP Internal Medicine; Visit Provider Internal Medicine
DX: S82.892D Other fracture of left lower leg, subsequent encounter for closed fracture with routine healing (principal); E78.00 Pure hypercholesterolemia, unspecified; I10 Essential (primary) hypertension; W19.XXXD Unspecified fall, subsequent encounter; S06.5XAD Traumatic subdural hemorrhage with loss of consciousness status unknown, subsequent encounter; Z79.899 Other long term (current) drug therapy; Z79.82 Long term (current) use of aspirin; Z87.891 Personal history of nicotine dependence; S82.842D Displaced bimalleolar fracture of left lower leg, subsequent encounter for closed fracture with routine healing; T48.205D Adverse effect of unspecified drugs acting on muscles, subsequent encounter; N32.81 Overactive bladder; N40.0 Benign prostatic hyperplasia without lower urinary tract symptoms
CPT/HCPCS: 36415; 80048; 80061; 81001; 85025; 87086; 87811; 92507; 92523; 97110; 97112; 97116; 97129; 97130; 97162; 97166; 97530; 97535; 97802

== ENCOUNTER → 2023-07-19 | Outpatient (REF) | payer MEDICARE, SELFPAY ==
[2023-07-19 09:24] LABS: Hematocrit 44.7 % (40-54); Hemoglobin 15.3 g/dL (13.0-16.5); Mean Corp Hgb Conc 34.2 g/dL (32-36); Mean Corpuscular Hgb 30.3 pg (27.0-32.0); Mean Corpuscular Volume 88.5 fL (80-94); Mean Platelet Vol. 10.2 fl (6.2-12.0); Platelet Count 271 K/mm3 (150-450); RBC Distribution Width CV 12.6 % (11.6-14.6); RBC Distribution Width SD 41.4 fl (35.1-43.9); Red Blood Count 5.05 M/mm3 (4.6-6.2); White Blood Count 5.1 K/mm3 (4.4-11.0)
[2023-07-19 09:40] LABS: Vitamin B12 1382 pg/mL (211-911); Vitamin D,25 Hydroxy 53.8 ng/mL
[2023-07-19 09:46] LABS: Anion Gap 8 (5-15); BUN 20 mg/dL (7-18); BUN/Creat Ratio 22.2 RATIO (10-20); Chloride 104 mmol/L (98-107); Cholesterol 183 mg/dL (200); EST Glomerular Filtration Rate 85 mL/min (>60); Est Glom Filt Rate - Afr Amer 103 mL/min (>60); Glucose 112 mg/dL (74-106); High Density Lipoprotein 49 mg/dL; Magnesium 2.2 mg/dL (1.6-2.6); Potassium 3.7 mmol/L (3.5-5.1); Sodium Level 137 mmol/L (136-145); Triglycerides 120 mg/dL; Very Low Density Lipoprotein 24 mg/dL (5-40)
== END ==
LOC: OLS.SW 05:00
PROVIDERS: PCP Internal Medicine
DX: Z02.2 Encounter for examination for admission to residential institution (principal)
CPT/HCPCS: 36415; 80048; 80061; 82306; 82607; 83735; 84443; 85027

== ENCOUNTER → 2023-07-22 | Outpatient (REF) | payer MEDICARE, SELFPAY ==
--- OUTSIDE RECORDS SUMMARY | 2023-07-22 05:05 | XMS RPT_ITS | CCD ---
Author Name Unknown Address [address] [place] [address] Organization [facility] Care Team Providers Care Tentering Machine Off Bearer Name Role Phone Vadim Vega MD Primary Care Provider [phone] LYNDA HOLMAN Referring Unavailable SILVIA, VADIM Barcenas Primary Care Unavailable LYNDA HOLMAN Referring Unavailable MYA VALDZE Attending Unavailable SILVIA, VADIM Barcenas Primary Care Unavailable MYA VALDEZ Consulting Unavailable KADE GARRETT Attending Unavailable JIMMY DENTON Admitting Unavailable SILVIA, VADIM Barcenas Primary Care Unavailable SU WARE Attending Unavailable VEGA, VADIM Barcenas Primary Care Unavailable SU WARE Admitting Unavailable NICOLÁS MATTA Attending Unavailable SILVIA, VADIM Barcenas Primary Care Unavailable VEGA, VADIM Barcenas Referring Unavailable SU WARE Attending Unavailable VEGA, VADIM Barcenas Primary Care Unavailable VEGA, VADIM Barcenas Primary Care Unavailable LYNDA VERNON Attending Unavailable VEGA, VADIM Barcenas Primary Care Unavailable VEGA, VADIM Barcenas Primary Care Unavailable VEGA, VADIM Barcenas Referring Unavailable LYNDA VERNON Attending Unavailable VEGA, VADIM Barcenas Primary Care Unavailable VEGA, VADIM Barcenas Referring Unavailable VEGA, VADIM Barcenas Attending Unavailable VEGA, VADIM Barcenas Primary Care Unavailable VEGA, VADIM Barcenas Referring Unavailable VEGA, VADIM Barcenas Primary Care Unavailable LUANN BRANCH Attending Unavailable VEGA, VADIM Barcenas Primary Care Unavailable VEGA, VADIM Barcenas Referring Unavailable VEGA, VADIM Barcenas Primary Care Unavailable VEGA, VADIM Barcenas Attending Unavailable EVGA, VADIM Barcenas Primary Care Unavailable VEGA, VADIM Barcenas Referring Unavailable Allergies Allergy Classification Reported Allergen(s) Allergy Type Date of Onset Reaction(s) Facility (18 sources) Clearasil Maximum Strength; Translations: [CLEARASIL MAXIMUM STRENGTH] Drug Intolerance 9 Swelling [facility] Work Phone: Medications Current Medications Medication Drug [...] Active Problems Problem Classification Problem Date Documented Da te Episodic/Chronic Acute cerebrovascular disease (1 source) Nontraumatic subarachnoid hemorrhage, unspecified; Translations: [SAH (subarachnoid hemorrhage) ([facility])] Onset: 07-16-2023 Chronic Coagulation and hemorrhagic disorders (19 sources) Platelet [...] perforation or abscess without bleeding] 07-12-2016 Chronic E Codes: Fall (1 source) Unspecified fall, initial encounter; Translations: [Fall, initial encounter] Onset: 06-26-2023 Episodic Essential hypertension (20 sources) Essential hypertension; Translations: [Essential (primary) hypertension] Onset: 02-22-2006 06-29-2015 Chronic Fracture of lower limb (1 source) Displaced bimalleolar fracture of left lower leg, subsequent encounter for closed fracture with routine healing; Translations: [Closed bimalleolar fracture of left ankle with routine healing, subsequent encounter] Onset: 07-09-2023 Episodic Hyperplasia of prostate (20 sources) Benign prostatic [...] (HCC); Translations: [SDH (subdural hematoma) (HCC)] Onset: 07-16-2023 Past or Other Problems Problem Classification Problem [...] 02-28-2023 14:20-0400 Body temperature 98.1 [degF] Luann Martinezf PA-C Work Phone: [facility] 02-28-2023 14:20-0400 Diastolic blood pressure 84 mm[Hg] Luannюлия Martinezf PA-C Work Phone: [facility] 02-28-2023 14:20-0400 Heart rate 84 /min Luannюлия Branch PA-C Work Phone: [facility] 02-28-2023 14:20-0400 SaO2% (BldA) [Mass fraction] 95 % Luann [place] PA-C Work Phone: [facility] 02-28-2023 14:20-0400 Systolic blood pressure 136 mm[Hg] Luann [place] PA-C Work Phone: [facility] 02-15-2023 08:08-0400 Body weight 97.07 kg Vadim Vega MD Work Phone: [facility] 02-15-2023 08:08-0400 Diastolic blood pressure 82 mm[Hg] Vadim Vega MD Work Phone: [facility] 02-15-2023 08:08-0400 Heart rate 85 /min Vadim Vega MD Work Phone: [facility] 02-15-2023 08:08-0400 Respiratory rate 16 /min Vadim Vega MD Work Phone: [facility] 02-15-2023 08:08-0400 SaO2% (BldA) [Mass fraction] 96 % Vadim Vega MD Work Phone: [facility] 02-15-2023 08:08-0400 Systolic blood pressure 128 mm[Hg] Vadim Vega MD Work Phone: [facility] 01-25-2023 14:58-0400 Body height 182.9 cm Su Ware MD Work Phone: [facility] 01-25-2023 14:58-0400 Body temperature 98.01 [degF] Su Ware MD Work Phone: [facility] 01-25-2023 14:58-0400 Body weight 99.07 kg Su Ware MD Work Phone: [facility] 01-25-2023 14:58-0400 Diastolic blood pressure 80 mm[Hg] Su Ware MD Work Phone: [facility] 01-25-2023 14:58-0400 Heart rate 91 /min Su Ware MD Work Phone: [facility] 01-25-2023 14:58-0400 SaO2% (BldA) [Mass fraction] 96 % Su Ware MD Work Phone: [facility] 01-25-2023 14:58-0400 Systolic blood pressure 132 mm[Hg] Su Ware MD Work Phone: [facility] 01-04-2023 08:10-0400 Body height 182.9 cm Lynda Vernon PA-C Work Phone: [facility] 01-04-2023 08:10-0400 Body temperature 97.81 [degF] Lynda Vernon PA-C Work Phone: [facility] 01-04-2023 08:10-0400 Body weight 98.88 kg Lynda Vernon PA-C Work Phone: [facility] 01-04-2023 08:10-0400 Diastolic blood pressure 88 mm[Hg] Lynda Vernon PA-C Work Phone: [facility] 01-04-2023 08:10-0400 Heart rate 80 /min Lynda Vernon PA-C Work Phone: [facility] 01-04-2023 08:10-0400 Respiratory rate 12 /min Lynda Vernon PA-C Work Phone: [facility] 01-04-2023 08:10-0400 SaO2% (BldA) [Mass fraction] 95 % Lynda Vernon PA-C Work Phone: [facility] 01-04-2023 08:10-0400 Systolic blood pressure 138 mm[Hg] Lynda Vernon PA-C Work Phone: [facility] 09-25-2022 13:26-0400 Body temperature 98.01 [degF] Hyun Moriah COW WASHER.MAMMAL KEEPER Work Phone: [facility] 09-25-2022 13:26-0400 Body weight 100.25 kg Hyun Moriah COW WASHER.MAMMAL KEEPER Work Phone: [facility] 09-25-2022 13:26-0400 Diastolic blood pressure 84 mm[Hg] Hyun Moriah COW WASHER.MAMMAL KEEPER Work Phone: [facility] 09-25-2022 13:26-0400 Heart rate 88 /min Hyun Moriah COW WASHER.MAMMAL KEEPER Work Phone: [facility] 09-25-2022 13:26-0400 Respiratory rate 18 /min Hyun Moriah COW WASHER.MAMMAL KEEPER Work Phone: [facility] 09-25-2022 13:26-0400 SaO2% (BldA) [Mass fraction] 96 % Hyun Moriah COW WASHER.MAMMAL KEEPER Work Phone: [facility] 09-25-2022 13:26-0400 Systolic blood pressure 128 mm[Hg] Hyun Moriah COW WASHER.MAMMAL KEEPER Work Phone: [facility] 08-31-2022 08:13-0500 Body height 182.9 cm Lynda Vernon PA-C Work Phone: [facility] 08-31-2022 08:13-0500 Body temperature 98.49 [degF] Lynda Vernon PA-C Work Phone: [facility] 08-31-2022 08:13-0500 Body weight 98.88 kg Lynda Vernon PA-C Work Phone: [facility] 08-31-2022 08:13-0500 Diastolic blood pressure 90 mm[Hg] Lynda Vernon PA-C Work Phone: [facility] 08-31-2022 08:13-0500 Heart rate 80 /min Lynda Vernon PA-C Work Phone: [facility] 08-31-2022 08:13-0500 Respiratory rate 14 /min Lynda Vernon PA-C Work Phone: [facility] 08-31-2022 08:13-0500 SaO2% (BldA) [Mass fraction] 95 % Lynda Vernon PA-C Work Phone: [facility] 08-31-2022 08:13-0500 Systolic blood pressure 134 mm[Hg] Lynda Vernon PA-C Work Phone: [facility] 08-16-2022 08:08-0500 Body height 182.9 cm Vadim Vega MD Work Phone: [facility] 08-16-2022 08:08-0500 Body temperature 97.2 [degF] Vadim Vega MD Work Phone: [facility] 08-16-2022 08:08-0500 Body weight 97.52 kg Vadim Vega MD Work Phone: [facility] 08-16-2022 08:08-0500 Diastolic blood pressure 72 mm[Hg] Vadim Vega MD Work Phone: [facility] 08-16-2022 08:08-0500 Heart rate 72 /min Vadim Vega MD Work Phone: [facility] 08-16-2022 08:08-0500 Respiratory rate 12 /min Vadim Vega MD Work Phone: [facility] 08-16-2022 08:08-0500 Systolic blood pressure 118 mm[Hg] Vadim Vega MD Work Phone: [facility] 05-04-2022 08:28-0400 Body temperature 97.59 [degF] Susan Athy PA-C Work Phone: [facility] 05-04-2022 08:28-0400 Body weight 96.89 kg Susan Athy PA-C Work Phone: [facility] 05-04-2022 08:28-0400 Diastolic blood pressure 78 mm[Hg] Susan Athy PA-C Work Phone: [facility] 05-04-2022 08:28-0400 Heart rate 72 /min Susan Athy PA-C Work Phone: [facility] 05-04-2022 08:28-0400 Respiratory rate 16 /min Susan Athy PA-C Work Phone: [facility] 05-04-2022 08:28-0400 SaO2% (BldA) [Mass fraction] 98 % Susan Athy PA-C Work Phone: [facility] 05-04-2022 08:28-0400 Systolic blood pressure 126 mm[Hg] Susan Athy PA-C Work Phone: [facility] 03-05-2022 09:25-0400 Body temperature 97.2 [degF] Haylie Chin APRN.MAMMAL KEEPER Work Phone: [facility] 03-05-2022 09:25-0400 Body weight 97.7 kg Haylie Chin APRN.MAMMAL KEEPER Work Phone: [facility] 03-05-2022 09:25-0400 Diastolic blood pressure 90 mm[Hg] Haylie Chin APRN.MAMMAL KEEPER Work Phone: [facility] 03-05-2022 09:25-0400 Heart rate 92 /min Haylie Chin APRN.MAMMAL KEEPER Work Phone: [facility] 03-05-2022 09:25-0400 Respiratory rate 18 /min Haylie Chin APRN.MAMMAL KEEPER Work Phone: [facility] 03-05-2022 09:25-0400 SaO2% (BldA) [Mass fraction] 94 % Haylie Chin APRN.MAMMAL KEEPER Work Phone: [facility] 03-05-2022 09:25-0400 Systolic blood pressure 132 mm[Hg] Haylie Chin APRN.MAMMAL KEEPER Work Phone: [facility] 02-08-2022 08:55-0400 Body temperature 97 [degF] Vadim Vega MD Work Phone: [facility] 02-08-2022 08:55-0400 Body weight 94.98 kg Vadim Vega MD Work Phone: [facility] 02-08-2022 08:55-0400 Diastolic blood pressure 68 mm[Hg] Vadim Vega MD Work Phone: [facility] 02-08-2022 08:55-0400 Heart rate 68 /min Vadim Vega MD Work Phone: [facility] 02-08-2022 08:55-0400 Respiratory rate 16 /min Vadim Vega MD Work Phone: [facility] 02-08-2022 08:55-0400 Systolic blood pressure 114 mm[Hg] Vadim Vega MD Work Phone: [facility] 12-25-2021 14:35-0400 Body height 182.9 cm Su Ware MD Work Phone: [facility] 12-25-2021 14:35-0400 Body temperature 98.29 [degF] Su Ware MD Work Phone: [facility] 12-25-2021 14:35-0400 Body weight 96.62 kg Su Ware MD Work Phone: [facility] 12-25-2021 14:35-0400 Diastolic blood pressure 58 mm[Hg] Su Ware MD Work Phone: [facility] 12-25-2021 14:35-0400 Heart rate 91 /min Su Ware MD Work Phone: [facility] 12-25-2021 14:35-0400 SaO2% (BldA) [Mass fraction] 94 % Su Ware MD Work Phone: [facility] 12-25-2021 14:35-0400 Systolic blood pressure 106 mm[Hg] Su Ware MD Work Phone: [facility] 09-29-2021 13:02-0400 Body height 182.9 cm Su Ware MD Work Phone: [facility] 09-29-2021 13:02-0400 Body temperature 98.29 [degF] Su Ware MD Work Phone: [facility] 09-29-2021 13:02-0400 Body weight 97.52 kg Su Ware MD Work Phone: [facility] 09-29-2021 13:02-0400 Diastolic blood pressure 68 mm[Hg] Su Ware MD Work Phone: [facility] 09-29-2021 13:02-0400 Heart rate 81 /min Su Ware MD Work Phone: [facility] 09-29-2021 13:02-0400 SaO2% (BldA) [Mass fraction] 96 % Su Ware MD Work Phone: [facility] 09-29-2021 13:02-0400 Systolic blood pressure 136 mm[Hg] Su Ware MD Work Phone: [facility] Encounters Encounter Date Encounter Type Care Provider Facility Start: 07-16-2023 End: 07-16-2023 ambulatory NICOLÁS MATTA Facility:[facility] Start: 07-09-2023 End: 07-09-2023 ambulatory LYNDA HOLMAN Facility:[facility] Start: 06-21-2023 End: 06-27-2023 Evaluation and management of inpatient MYA VALDEZ Facility:[facility] Start: 04-01-2023 Refill Vadim gruber MD Work Phone: [facility] [place] Procedures Date Procedure Procedure Detail Performing Clinician Start: 06-21-2023 Antibody screen LYNDA HOLMAN Plan of Treatment Date Care Activity Detail Author Start: 02-08-2026 DIABETES SCREEN DIABETES SCREEN [facility] Start: 02-08-2026 Diabetes Screening Diabetes Screenin g [facility] Start: 08-09-2025 DIABETES SCREEN DIABETES SCREEN [facility] Start: 02-01-2025 DIABETES SCREEN DIABETES SCREEN [facility] Start: 08-07-2024 DIABETES SCREEN DIABETES SCREEN [facility] Start: 01-16-2024 Urine microalbumin profile [facility] Immunizations Immunization Date Immunization Notes Care Provider Fa malia 03-25-2023 influenza (aIIV4) vaccine, age 65+ yr, quadrivalent, PF (FLUAD QUAD) Vadim Vega MD Work Phone: [facility] 12-21-2022 COVID-19 vaccine, ag e 12+ yr, bivalent (PFIZER-BIONTECH) Lynda Vernon PA-C Work Phone: [facility] Work Phone: 03-27-2022 influenza, high dose seasonal, preservative-free Vadim Vega MD Work Phone: [facility] Work Phone: 03-12-2022 COVID-19 booster vaccine, age 12+ yr, bivalent (PFIZER-BIONTECH) Susan Corado PA-C Work Phone: [facility] Work Phone: 02-08-2022 pneumococcal (PCV20) vaccine, 20 valent (PREVNAR 20) Vadim Vega MD Work Phone: [facility] Work Phone: 02-08-2022 pneumococcal Conjugate, unspecified formulation Vadim Vega MD Work Phone: [facility] Work Phone: 03-17-2021 influenza, high-dose , quadrivalent vaccine (FLUZONE HIGH DOSE QUADRIVALENT) Su Ware MD Work Phone: [facility] Work Phone: 07-07-2020 COVID-19 vaccine, ag e 12+ yr (Review [employer] - PURPLE TOP) Su Ware MD Work Phone: [facility] Work Phone: 03-30-2020 influenza, high dose seasonal, preservative-free Su Ware MD Work Phone: [facility] Work Phone: 03-30-2019 influenza, high dose seasonal, preservative-free Su Ware MD Work Phone: [facility] Work Phone: 03-23-2018 influenza, high dose seasonal, preservative-free Su Ware MD Work Phone: [facility] Work Phone: 04-04-2017 influenza, injectabl e, quadrivalent, contains preservative Su Ware MD Work Phone: [facility] Work Phone: 04-04-2016 influenza, seasonal, injectable Su Ware MD Work Phone: [facility] 04-14-2015 influenza, high dose seasonal, preservative-free Su Ware MD Work Phone: [facility] 01-13-2015 pneumococcal conjuga te vaccine, 13 valent Su Ware MD Work Phone: [facility] 04-13-2014 influenza, seasonal, injectable Su Ware MD Work Phone: [facility] Work Phone: 03-31-2013 influenza virus vaccine, unspecified formulation Su Ware MD Work Phone: [facility] 06-19-2012 zoster vaccine, live Su child MD Work Phone: [facility] 03-31-2012 influenza virus vaccine, unspecified formulation Su Ware MD Work Phone: [facility] 06-29-2009 novel [id number], preservative-free, injectable Su Ware MD Work Phone: [facility] Work Phone: 08-22-2007 tetanus and diphther ia toxoids, adsorbed, preservative free, for adult use (2 Lf of tetanus toxoid and 2 Lf of diphtheria toxoid) Su Ware MD Work Phone: [facility] Work Phone: Payers Date Payer Category Payer Medicare [id number] 2021 Medicare HUMANA MEDICARE HUMANA MEDICARE PPO [id number] 2021-Present [phone] [address] [place] [address] PPO [id number] 2021 Medicare HUMANA MEDICARE HUMANA MEDICARE PPO [id number] 2021-Present [phone] [address] [place] [address] PPO [id number] 2021 Medicare [id number] Social History Date Type Detail Facility Start: 02-08-2022 End: 01-04-2023 Tobacco smoking status NHIS Ex-smoker [facility] History of tobacco use Cigarette Smoker [facility] History of tobacco use Pipe Smoker [facility] End: 07-01-1993 History of tobacco use User of smokeless tobacco [facility] Start: 09-29-2021 End: 02-28-2023 Alcohol intake Current drinker of alcohol (finding) [facility] Start: 09-29-2021 End: 01-25-2023 Alcohol intake [facility] Work Phone: Start: 08-11-2021 End: 08-16-2022 History SDOH Alcohol Frequency 3 [facility] Start: 08-11-2021 End: 08-16-2022 History SDOH Alcohol Std Drinks 1 [facility] Start: 07-28-2020 History SDOH Alcohol Comment or less. [facility] Start: 08-11-2021 End: 08-16-2022 History SDOH Social Connections Phone 5 [facility] Start: 08-11-2021 End: 08-16-2022 History SDOH Social Connections Living 7 [facility] Start: 08-11-2021 End: 08-16-2022 History SDOH Physical Activity DPW 2 [facility] Start: 08-11-2021 End: 08-16-2022 History SDOH Financial 4 [facility] Start: 1935 Sex Assigned At Not on file C [facility] Start: 09-19-2021 End: 02-08-2022 Exposure to SARS-CoV-2 (event) Not sure [facility] History of tobacco use Current smoker [facility] Work Phone: Start: 02-08-2022 Tobacco use and exposure Forme r smokeless tobacco user [facility] Work Phone: Start: 02-08-2022 Tobacco Comment Quit 1993 (cig x 5 years and pipe x 20 years) [facility] Start: 04-24-2022 End: 05-04-2022 Exposure to SARS-CoV-2 (event) Yes [facility] Start: 01-04-2023 Tobacco use and exposure Smoke less tobacco non-user [facility] Start: 08-16-2022 End: 01-25-2023 Social connection and isolation panel [facility] Work Phone: Are you now , , , , never or living with a partner? Never [facility] Work Phone: How often to you hav e a drink containing alcohol? 2-4 times a month [facility] Work Phone: How many standard dr inks containing alcohol do you have on a typical day? 1 or 2 [facility] Work Phone: How often do you hav e 6 or more drinks on 1 occasion? Never [facility] Work Phone: How hard is it for y ou to pay for the very basics like food, housing, medical care, and heating Not very hard [facility] Work Phone: Adult Depression Screening Assessment 0 [facility] Work Phone: Do you feel stress - tense, restless, nervous, or anxious, or unable to sleep at night because your mind is troubled all the time - these days [OSQ] Not at all [facility] Work Phone: Clinical Notes 08-22-2007 to 07-16-2023 Telephone Encounter - Ilana Burr RN - 04/01/2023 10:42 AM EDTPatient InstructionsLuann Branch PA-C - 02/28/2023 2:29 PM Vadim Ty MD - 02/15/2023 8:33 AM EDTPatient Instructions Note Date & Type Note Facility 07-16-2023 Note HNO ID: [id number] Author: NICOLÁS MATTA MD Service: ? Author Type: Physician Type: Progress Notes Filed: 07/16/2023 11:16 Note Text: NEUROSURGERY FOLLOW UP OFFICE NOTE Dr. Nicolás Matta MD, [facility] Date of visit: July 16, 2023 Patient Name: Mr.Peter Jericho Kumar Date of : 1935 Current Age: [age] year old Sex: male MRN/E# [id number] Last Office Visit: Hospital follow-up CHIEF COMPLAINT: Patient presents with: Established Patient SUBJECTIVE: The patient presents as a hospital follow-up with imaging (CT B) for evaluation. This is an 88-year-old male with a PMHx TIA, HTN, hypercholesterolemia, thrombocytopenia who was seen for consult at [facility] on 06/21/2023 after a fall while hiking while on ASA. Workup was completed at an outside hospital and CT showed a left tentorial and falx subdural hematoma prompting his transfer for higher acuity level of care. ASA was reversed and he was placed on a short course of Keppra and monitored in the ICU. No surgical intervention was indicated. Further workup demonstrated a left ankle fracture for which he underwent an ORIF per orthopedic surgery on 06/23/2023. Repeat head CT remained stable and he was cleared to begin DVT PPx with SQ heparin on 06/24/2023. No neurosurgical intervention was warranted and he was advised to hold his home ASA and follow-up in [address] head prompting his visit today. Since discharge she states he is overall doing well. He is currently in rehab in [place] and hopes to be discharged to a alf this week. He denies headache, visual changes, speech deficits, seizure activity, motor or sensory deficits. He presents for image review, evaluation and plan of care. OK to resume low dose ASA BID. 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 PAST MEDICAL HISTORY Diagnosis Date Benign prostatic [...] DX W/COLLJ SPEC WHEN PFRMD 03/2004 Colonoscopy PAST SURGICAL HISTORY OF Left 06/23/2023 ORIF left ankle TONSILLECTOMY AND ADENOIDECTOMY UMBILICAL HERNIA REPAIR 5 OR OLDER 09/21/2021 FAMILY HISTORY Problem Relation Age of Onset Prostate Cancer Father metastatic prostate Cancer Mother liver Hypertension Sister Lipids Sister ALLERGIES Allergen Reactions Clearasil Maximum S* Swelling Current Outpatient Medications Medication Sig Dispense Refill acetaminophen (TYLENOL) 500 mg tablet 2 tablets by ORAL/FEEDING TUBE route every 6 hours. calcium-cholecalciferol, D3, (OSCAL+D 250) 250 mg-3.125 mcg (125 unit) per tablet Take 2 tablets by mouth two times a day. lisinopril (ZESTRIL) 20 mg tablet Take 1 tablet by mouth once daily. 90 tablet 3 doxazosin (CARDURA) 1 mg tablet Take 1 tablet by mouth once daily. 90 tablet 3 finasteride (PROSCAR) 5 mg tablet Take 1 tablet by mouth once daily. 90 tablet 3 Lactobacillus acidophilus (PROBIOTIC) 10 billion cell cap Take 1 capsule by mouth. Melatonin 5 mg cap Take 5 mg by mouth daily at bedtime. MULTIVITAMIN TAB Take one(1) tablet daily. 0 No current facility-administered medications for this visit. REVIEW OF SYSTEMS: Review of Systems Constitutional: Negative for chills, diaphoresis (Negative for night sweats.) and fever. HENT: Negative for ear discharge and rhinorrhea. Eyes: Negative for discharge. Respiratory: Negative for cough, shortness of breath and wheezing. Cardiovascular: Negative for chest pain, palpitations and leg swelling. Gastrointestinal: Negative for constipation, diarrhea, nausea and vomiting. Endocrine: Negative for cold intolerance and heat intolerance. Genitourinary: Negative for frequency. Negative for urinary incontinence and urinary retention. Musculoskeletal: Positive for gait problem. Negative for back pain, joint swelling, myalgias and neck pain. Skin: Negative for rash (Negative for hives and skin lesions.). Allergic/Immunologic: Negative for environmental allergies and food allergies. Negative for contact allergy, seasonal allergies. Neurological: Positive for headaches. Negative for dizziness, seizure (more content not included)... [facility] 07-16-2023 Note HNO ID: [id number] Author: YOANA VASQUEZ RT(R) Service: Radiology Author Type: Technologist Type: Progress Notes Filed: 07/16/2023 10:14 Note Text: Radiology Service Progress Note PATIENT NAME: Deniz Kumar DATE OF SERVICE: July 16, 2023 TIME: 10:14 AM PATIENT IDENTITY VERIFICATION COMPLETED USING TWO (2) IDENTIFIERS: Name and Date of confirmed by patient verbally. FALL SCREENING: Has the patient had 2 falls in the last year or 1 fall with injury or currently using an Ambulatory Assistive Device (Walker, Cane, Wheelchair, Crutches, etc.)? Yes, Patient High Risk for Falls What interventions were put in place to prevent falls during this visit? Instructed Patient to Call for Help if Needed, Offered Assistance with Transfers/Clothing, Instructed Patient to Remain Seated (Not on Exam Table) Until Exam, and Increased Observations by Caregivers PATIENT GENDER DATA: Male PATIENT RELEVANT IMPLANT DATA REVIEWED: Not Applicable RADIOLOGY DEPARTMENT: CT; Exam(s) Completed: Brain PERIPHERAL IV DATA: Not applicable SIGNED BY: RT Karol(R) July 16, 2023 10:14 AM [facility] 07-09-2023 Note HNO ID: [id number] Author: MYA VALDEZ MD Service: ? Author Type: Physician Type: Progress Notes Filed: 07/09/2023 14:27 Note Text: Subjective: Patient returns today for follow-up regarding his left bimalleolar ankle fracture. He had surgical repair on 06/23/2023. Overall doing okay. He is having no pain in his ankle. Objective: Examination left lower extremity shows incision to be healing well. Neurovascularly intact. Satisfactory ankle range of motion. Imaging: Please refer to the radiographic interpretation Assessment: #1 left bimalleolar ankle fracture. Plan: At this time he is doing well. We will begin partial weightbearing in his boot. We will do this for 2 weeks. This will be followed by weight-bear as tolerated. I will see him back in 4 weeks. If there is any questions or concerns prior to the next encounter, he will contact the office. Questions answered. [facility] 06-27-2023 Note HNO ID: [id number] Author: Sultana Nolasco RN Service: Care Management Author Type: Registered Nurse Type: Care Mgt Progress Note Filed: 06/27/2023 3:12 PM Note Text: CARE MANAGEMENT DISCHARGE NOTE SERVICE DATE: June 27, 2023 SERVICE TIME: 3:10 PM Admission Date: 06/21/2023 LOS: 6 days Discharge Arrangement Discharge Arrangement: Correction Facility Was an expedited discharge program used?: Yes Type: [employer] Services Arranged Provider Name: [facility] Caregiver Assessment Caregiver is ready, willing and able to meet the patient's needs as recommended by the inter-professional team: Yes Name of Caregiver: Staff at SNF Transportation Arrangements Transportation Arrangements: Ambulance Transportation Agency and Phone #:: [facility] ( [facility] ) [phone] / [phone] Date of Trip: 06/27/23 Time of Trip: 1700 Type of Service: BLS Non-emergency Is Patient Medicaid Pending?: No Was transportation financial coverage discussed with family?: Family Relief Mate Location: [facility] Destination: [facility] [place] Financial Care Management Responsibility: None Handoff Communication: Additional Information: Pt is D/C today to SNF in [place]. Will transport at 5 pm by cot transport with [facility]. D/C paperwork sent electronically. RN will call nurse to nurse report. Pt is aware of D/C plans and stated he would call his family. SIGNATURE: Sultana Nolasco RN PATIENT NAME: Deniz Kumar DATE: June 27, 2023 TIME: 3:10 PM CONTACT #: [phone] [facility] 06-27-2023 Note HNO ID: [id number] Author: Joellen Ramirez Service: Care Management Author Type: ? Type: Care Mgt Progress Note Filed: 06/27/2023 1:23 PM Note Text: [facility] PRECERT NOTE [employer] MEDICARE PPO approved Correction Facility for [facility] . Precert approved through 07/02/2023. For any additional questions regarding approvals, transport or care management needs, please contact the CM assigned to this patient in the Treatment Team. SIGNATURE: Joellen Dominguez DATE: June 27, 2023 TIME: 1:22 PM [facility] 06-27-2023 Note HNO ID: [id number] Author: Sultana Nolasco RN Service: Care Management Author Type: Registered Nurse Type: Care Mgt Progress Note Filed: 06/27/2023 3:08 PM Note Text: CARE MANAGEMENT PROGRESS NOTE SERVICE DATE: 06/27/2023 SERVICE TIME: 3:07 PM LOS: 6 days IMM Follow Up Copy Given: Yes Copy given to:: Patient Method: In Person SIGNATURE: Sultana Nolasco RN PATIENT NAME: Deniz Kumar DATE: June 27, 2023 TIME: 3:07 PM PAGER/CONTACT #: [phone] [facility] 06-27-2023 Note HNO ID: [id number] Author: Liz Naylor APRN.CNP Service: General Surgery Author Type: Nurse Practitioner Type: Progress Notes Filed: 07/02/2023 9:27 AM Note Text: Summary: [facility]SV DC Note Discharge Geriatric Vulnerability Screens Surgeon: Surgeon(s) and Role: * Mya Valdez MD - Primary * Uche Vasquez MD - Resident - Assisting Procedure Performed: Procedure(s): OPEN REDUCTION DISTAL FIBULAR FX. W/ INTERNAL FIXATION WHEN PERFORMED (Left) ORIF SYNDESMOSIS LOWER EXTREMITY (Left) Impaired Cognition at Discharge: No Delirious at Discharge:No Impaired Functional Status at Discharge: Yes, partially impaired/dependent Impaired Mobility at Discharge:Yes Malnutrition at Discharge:No Geriatric Vulnerability Management Plan: DC SNF Geriatric vulnerability screens were reviewed by Liz Naylor APRN.MAMMAL KEEPER and results were communicated to surgeon/surgical team who devised the above plan. The plan was communicated to the patient and family/caregivers: Via nursing dc instructions Patient/Caregivers were given educational material on delirium, falls, and mobility. Patient's primary doctor: Vadim Vega MD This plan was communicated to the patient's primary doctor: Through Electronic Health Record (EHR) messaging Disposition: Patient to be discharged to Subacute/SNF [facility] 06-27-2023 Note HNO ID: [id number] Author: Sultana Nolasco RN Service: Care Management Author Type: Registered Nurse Type: Care Mgt Progress Note Filed: 06/27/2023 9:09 AM Note Text: CARE MANAGEMENT PROGRESS NOTE SERVICE DATE: 06/27/2023 SERVICE TIME: 9:07 AM LOS: 6 days Requested 7000 be completed and have requested [facility] to start precert to [facility] SNF. . Pt will need cot transport d/t NWB status of LLE - POD#4 SIGNATURE: Sultana Nolasco RN PATIENT NAME: Deniz Kumar DATE: June 27, 2023 TIME: 9:06 AM PAGER/CONTACT #: [phone] [facility] 06-27-2023 Note HNO ID: [id number] Author: Sultana Nolasco RN Service: Care Management Author Type: Registered Nurse Type: Care Mgt Progress Note Filed: 06/27/2023 8:59 AM Note Text: Attestation signed by Kade Garrett MD at 06/27/2023 9:00 AM SIGNATURE: Kade Garrett MD PATIENT NAME: Deniz Kumar DATE: June 27, 2023 TIME: 9:00 AM Pager: [phone] CARE MANAGEMENT PROGRESS NOTE SERVICE DATE: 06/27/2023 SERVICE TIME: 8:58 AM LOS: 6 days Physician Certification of Less Than 30 Days Post-Acute Nursing Facility Needed Earliest Possible Discharge Date: 06/27/23 To the best of my knowledge, all information provided about the individual is a true and an accurate reflection of Deniz Kumar's needs. I certify that following the inpatient level of care, a post-acute nursing facility stay is required for less than 30 days related to the condition(s) for which the patient was treated during the inpatient level of care: Principal Problem: Subdural hematoma (HCC) Active Problems: Essential hypertension Thrombocytopenia, unspecified (HCC) Fall Closed fracture of left ankle Resolved Problems: * No resolved hospital problems. * Physician: Kade Garrett MD SIGNATURE: Sultana Nolasco RN PATIENT NAME: Deniz Kumar DATE: June 27, 2023 TIME: 8:58 AM PAGER/CONTACT #: [phone] [facility] 06-27-2023 Note HNO ID: [id number] Author: Mya William PA-C Service: General Surgery Author Type: Physician Tea Leaf Reader Type: Progress Notes Filed: 06/27/2023 8:04 AM Note Text: Trauma Surgery Progress Note SERVICE DATE: 06/27/2023 Trauma Service Pager: For questions or concerns Mon-Fri 6a-5p please page [phone]. After 5pm and on Weekends and Holidays, please page [phone] if in ICU or [phone] if on RNF. SUBJECTIVE: Patient was awake and alert this morning. His pain is well controlled. He follows commands and is understanding of his discharge plan to a SNF. Precert is pending. OBJECTIVE: Vitals: Temp (24hrs), Av.7 ?C (98 ?F), Min:36.4 ?C (97.5 ?F), Max:37 ?C (98.6 ?F) BP 161/95 Pulse 60 Temp 36.7 ?C (98.1 ?F) (Oral) Resp 18 Ht 182.9 cm (6' 0.01 ) Wt 96.3 kg (212 lb 4.9 oz) SpO2 92% BMI 28.79 kg/m? O2 Therapy: Room Air IANDO: Date 06/26/23699 - 06/27/23 0659 06/27/23 07 - 06/28/23 0659 Shift 7280-9329 0352-1488 7182-3459 24 Hour Total 8538-6858 0469-1522 4318-8915 24 Hour Total INTAKE PO 240 320 560 PO 240 320 560 Shift Total 240 320 560 OUTPUT Urine 425 300 175 900 Void (ml) 425 300 175 900 Urine Incontinence/Not Saved 1 x 1 x Urine Not Saved. 1 x 1 x Shift Total 425 300 175 900 Weight (kg) 96.3 96.3 96.3 96.3 96.3 96.3 96.3 96.3 MEDICATIONS: [...] rhonchi. Respiratory status stable on RA. CVS: HR as above. 2+ RA pulses bilaterally. GI: Abdomen is soft, non-tender, [...] Thrombocytopenia, unspecified (HCC) 2017 Essential hypertension 02/22/2006 88-year old male s/p GLF on ASA [...] fracture with syndesmosis injury Ortho consulted (signed-off) POD#4 s/p ORIF as above NWB LLE in [...] from this note were copied from prior (more content not included)... [facility] 06-26-2023 Note HNO ID: [id number] Author: Sultana Nolasco, RN Service: Care Management Author Type: Registered Nurse Type: Care Mgt Progress Note Filed: 06/26/2023 3:02 PM Note Text: CARE MANAGEMENT PROGRESS NOTE SERVICE DATE: 06/26/2023 SERVICE TIME: 2:57 PM LOS: 5 days Per pt and sisterGerri, SNF referrals placed to [facility] and [facility] in [place], yesterday afternoon Today, [facility] has accepted for skilled care. They are FOC. TC to PT/ OT and they are to do re-evals for obtaining auth. CM following. SIGNATURE: Sultana Nolasco RN PATIENT NAME: eDniz Kumar DATE: June 26, 2023 TIME: 2:57 PM PAGER/CONTACT #: [phone] [facility] 06-26-2023 Note HNO ID: [id number] Author: Michelle Andino APRN.CNP Service: General Surgery Author Type: Nurse Practitioner Type: Progress Notes Filed: 06/26/2023 8:31 AM Note Text: Trauma Surgery Progress Note SERVICE DATE: 06/26/2023 Trauma Service Pager: For questions or concerns Mon-Fri 6a-5p please page [phone]. After 5pm and on Weekends and Holidays, please page [phone] if in ICU or [phone] if on RNF. SUBJECTIVE: No acute overnight [...] kg/m? O2 Therapy: Room Air IANDO: Date 06/25/23699 - 06/26/23 0659 06/26/23699 - 06/27/23 0659 Shift 9578-2457 3881-4015 1521-9031 24 Hour Total 5770-7803 1522-1904 5171-4886 24 Hour Total INTAKE PO 320 320 [...] stable for disc (more content not included)... [facility] 06-25-2023 Note HNO ID: [id number] Author: Sultana Nolasco RN Service: Care Management [...] by: Per Department Practice Potential Transition Plans Correction Facility/Intermediate Care Facility Advance Directives Current Advance Directive: Health Care Power of Disability Attorney In Chart: Yes Up To Date and Valid: Yes Current Living Arrangements and Support Lives with: Alone Type of Residence: Private Residence (House) Support: Family members How do you manage to accomplish the following: Independent: Ambulation;Bathe/Shower;Dress;Meal s/Meal Prep;Going to the bathroom;Medication Management;Transportation to appointments/community Current Services/Equipment Current Post-Acute Service(s): None Discharge Planning Patient Goal(s): Be able to go home, General wellness, Increase strength Alpine of Choice Explained: Alpine of Choice Given: Yes Level of Care Discussed: Correction Facility Are you interested in bedside delivery of your medications? No Discharge Planning Participant(s): Patient;Other person(s) Name/Relationship: Sister/Gerri MALAVE, by phone Patient/Family Comments: Caregiver Assessment: Caregiver [...] home alone. His sister, Gerri is his HCPKAREN and she assisted by phone with SNF [...] 25, 2023 TIME: 3:26 PM CONTACT #: [phone] [facility] 06-25-2023 Note HNO ID: [id number] Author: Leah Mcgraw APRN.CNP Service: General Surgery Author Type: Nurse Practitioner Type: Progress Notes Filed: 06/25/2023 8:06 AM Note Text: Trauma Surgery Progress Note SERVICE DATE: 06/25/2023 Trauma Service Pager: For questions or concerns Mon-Fri 6a-5p please page [phone]. After 5pm and on Weekends and Holidays, please page [phone] if in ICU or [phone] if on RNF. SUBJECTIVE: NAEON. Patient reports pain is controlled. He is asking when he can be discharged to SNF - discussed that senior resident care director will see him today and begin process, [...] Air IANDO: Date 06/24/23 07 - 06/25/23 0606/25/23699 - 06/26/23 0659 Shift 8408-1801 7674-2559 9495-2274 24 Hour Total 9777-5740 8471-9281 5278-0541 24 Hour Total INTAKE Shift Total OUTPUT [...] 6 H Labs: Recent Labs 06/25/23 0149 06/24/23 0135 NA [...] 25, 2023. SIGNAT (more content not included)... [facility] 06-25-2023 Note HNO ID: [id number] Author: Uche Vasquez MD Service: Orthopaedic Surgery [...] - PGY 3 6:51 AM 06/25/2023 Pager #[phone] INPATIENT ATTENDING: Mya Chaudhari MD, Urgent High-Risk Geriatric Patient Vulnerabilities: Age >85 and Impaired Mobility Diet: DIET REGULAR Code Status: Full Code Recommendations: Cognition: No Cognitive Impairment bCAM Score (Calc): Negative Delirium Screen Confusion Assessment Method (CAM - ICU Score): Negative Geriatric Consult (Age over 85 or impaired cognition):Consult to Head Cager Palliative Care/Hospice: Consult not required Rehab/Therapy: PT/OT Recommendations: PT: Recommended Discharge Disposition: Subacute/SNF OT: Recommended Discharge Disposition: Subacute/SNF Swallow: Swallow Screening Result - Step 2: PASSED Swallow Screen - Patient Able To Swallow 3 Ounce Cup of Water Without Exhibiting Signs Of Aspiration Speech Recommendations: Speech: Speech Diet: Nutrition: Consult not required Nutrition Recommendations: MST: Total MST Score (Calculated): 0 Carroter: Pharmacy: Consult not needed Social Work: NA Anticipated Discharge Disposition: Correction Facility [facility] 06-24-2023 Note HNO ID: [id number] Author: Romeo Sanchez PA-C Service: General Surgery Author Type: Physician Tea Leaf Reader Type: Progress Notes Filed: 06/24/2023 8:41 AM Note Text: Trauma Surgery Progress Note SERVICE DATE: 06/24/2023 Trauma Service Pager: For questions or concerns Mon-Fri 6a-5p please page [phone]. After 5pm and on Weekends and Holidays, please page [phone] if in ICU or [phone] if on RNF. SUBJECTIVE: NAEON. Patient sitting [...] Room Air IANDO: Date 06/23/23699 - 06/24/23 0606/24/23699 - 06/25/23 0659 Shift 6886-0695 3887-8024 5330-0907 24 Hour Total 6008-5202 4480-9818 5058-9998 24 Hour Total INTAKE IV 700 100 [...] PT/OT Dispo Planning: (more content not included)... [facility] 06-24-2023 Note HNO ID: [id number] Author: Mya Valdez MD Service: Orthopaedic Surgery Author Type: [...] - PGY 3 5:53 AM 06/24/2023 Pager #[phone] INPATIENT ATTENDING: Mya Chaudhari MD, Urgent High-Risk Geriatric Patient Vulnerabilities: Age >85 and Impaired Mobility Diet: DIET REGULAR Code Status: Full Code Recommendations: Cognition: No Cognitive Impairment bCAM Score (Calc): Negative Delirium Screen Confusion Assessment Method (CAM - ICU Score): Negative Geriatric Consult (Age over 85 or impaired cognition):Consult to Head Cager Palliative Care/Hospice: Consult not required Rehab/Therapy: PT/OT Recommendations: PT: OT: Swallow: Swallow Screening Result - Step 2: PASSED Swallow Screen - Patient Able To Swallow 3 Ounce Cup of Water Without Exhibiting Signs Of Aspiration Speech Recommendations: Speech: Speech Diet: Nutrition: Consult not required Nutrition Recommendations: MST: Total MST Score (Calculated): 0 Carroter: Pharmacy: Consult not needed Social Work: NA Anticipated Discharge Disposition: Home with Self Care Attending Note I personally saw and examined the patient. I reviewed the resident's note. I agree with the resident's assessment and plan unless otherwise noted. Signature: Mya Valdez MD Date: 06/24/2023 Time: 10:11 AM [facility] 06-23-2023 Note HNO ID: [id number] Author: Romeo Sanchez PA-C Service: General Surgery Author Type: Physician Tea Leaf Reader Type: Progress Notes Filed: 06/23/2023 12:10 PM Note Text: Trauma Surgery Progress Note SERVICE DATE: 06/23/2023 Trauma Service Pager: For questions or concerns Mon-Fri 6a-5p please page [phone]. After 5pm and on Weekends and Holidays, please page [phone] if in ICU or [phone] if on RNF. SUBJECTIVE: NAEON. Patient seen [...] Therapy: Nasal Cannula IANDO: Date 06/22/23699 - 06/23/2365806/23/23699 - 06/24/23 0659 Shift 0964-7582 0611-9865 0704-5219 24 Hour Total 3813-7637 6944-8190 6227-5973 24 Hour Total INTAKE PO 450 240 200 890 PO 450 240 200 890 IV 246 246 700 700 Volume (mL) (ceFAZolin iv piggyback 2 g in D5W (iso-osmotic) 100 mL (ANCEF)) 100 100 Volume (mL) (lactated ringers iv infusion) 246 246 Volume (mL) (lactated ringers iv infusion) 600 600 Shift Total 696 662 624 7006 700 700 OUTPUT Urine 150 250 400 [...] ATTENDING: Dr. Flores (more content not included)... [facility] 06-23-2023 Note HNO ID: [id number] Author: Sailaja Cao APRN.SERGEANT AT ARMS Service: ? 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 Staffing Anesthesiologist: Renaldo Mccurdy MD SERGEANT AT ARMS: Sailaja Cao APRN.SERGEANT AT ARMS Performed by: KYLIE Indications and Patient Condition Indications for airway management: anesthesia Preoxygenated: yes anesthesia circuit Patient position: sniffing Method: asleep Final Airway Details Final airway type: supraglottic airway Number of attempts at approach: 1 Final Supraglottic Airway: i-gel Size 5 Seal Adequate: yes Failed airway: no Unrecognized esophageal intubation: no Airway not difficult SIGNATURE: Sailaja Cao APRN.SERGEANT AT ARMS PATIENT NAME: Deniz Kumar DATE: June 23, 2023 TIME: 8:29 AM CSN: [id number] [facility] 06-23-2023 Note HNO ID: [id number] Author: Uche Vasquez MD Service: Orthopaedic Surgery [...] - PGY 3 6:10 AM 06/23/2023 Pager #[phone] INPATIENT ATTENDING: Mya Chaudhari MD, Urgent High-Risk Geriatric Patient Vulnerabilities: Age >85 and Impaired Mobility Diet: DIET NPO Code Status: Full Code Recommendations: Cognition: No Cognitive Impairment bCAM Score (Calc): Negative Delirium Screen Confusion Assessment Method (CAM - ICU Score): Negative Geriatric Consult (Age over 85 or impaired cognition):Consult to Head Cager Palliative Care/Hospice: Consult not required Rehab/Therapy: PT/OT Recommendations: PT: OT: Swallow: Swallow Screening Result - Step 2: PASSED Swallow Screen - Patient Able To Swallow 3 Ounce Cup of Water Without Exhibiting Signs Of Aspiration Speech Recommendations: Speech: Speech Diet: Nutrition: Consult not required Nutrition Recommendations: MST: Total MST Score (Calculated): 0 Carroter: Pharmacy: Consult not needed Social Work: NA Anticipated Discharge Disposition: Pending [facility] 06-22-2023 Note HNO ID: [id number] Author: Jon Almaraz MD Service: Orthopaedic Surgery [...] Almaraz MD Orthopaedic Surgery 06/22/2023 5:19 PM [facility] 06-22-2023 Note HNO ID: [id number] Author: Sina ([employer])Mya Service: ? Author Type: Waitstaff Type: Plan of Care Filed: 06/22/2023 4:02 PM Note Text: PHARMACY MEDICATION REVIEW Patient Name: Deniz Kumar : 1935 The following medications were updated within the WIRER medication list: Medications ADDED to WIRER medication list Medications CHANGED on WIRER medication list Lactobacillus acidophilus (PROBIOTIC) 10 billion cell cap Patient Yes Yes Sig: Take 1 capsule by mouth. Pt. states he takes occasionally but not daily Melatonin 5 mg cap OTHER Yes Yes Sig: Take 5 mg by mouth daily at bedtime. Pt. states he takes 3mg at bedtime. Medications REMOVED from WIRER medication list Additional comments: I was able to talk with pt. about his home medications. The pt. verified he takes the 8 medications on the WIRER list. I have not added or removed any medications from the WIRER list but I did note a change in how the pt. reports he takes 1 medication. 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 Required follow up actions for nursing: Medication history completed by Historian. No nursing follow up required. The below information represents the best possible medication history: Yes Medication history completed by: Waitstaff: Mya Andino ([employer]) Source of history: Patient: Reliability of source: Appears reliable, clearly identified: Medication name, Medication dose, Medication route, and Medication frequency and Pharmacy records: Epic e-script Medication nonadherence identified: No barriers noted Reconciliation completed: No, pharmacist not yet reviewed Patient interested in Bedside Delivery Services or using OP Pharmacy at discharge? Unable to assess [facility] outpatient [facility] [place] [address] [address] - [phone] e- [facility] [address] - [place] [address] - [address] [facility] [phone] e- [id number] [place] [id number] - [address] [facility] [phone] [id number] Allergies: Clearasil Maximum S* Swelling Prior to [...] by mouth at bedtime Facility-Administered Medications: None Mya Andino (Deportation Examiner) phone [phone] 06/22/2023 [facility] 06-22-2023 Note HNO ID: [id number] Author: Lynda Holman PA-C Service: Neurosurgery Author Type: Physician Tea Leaf Reader Type: Plan of Care Filed: 06/22/2023 9:42 AM Note Text: Neurosurgery Plan of Care Note: Discussed with Dr. Matta. Boyd for RNF today. Lynda Holman PA-C Department of Neurosurgery Pager: [phone] 22, 2023 9:42 AM [facility] 06-22-2023 Note HNO ID: [id number] Author: Mariposa Cervantes MD Service: General Surgery Author Type: Physician Type: Progress Notes Filed: 06/22/2023 10:18 AM Note Text: Trauma Surgery Progress Note SERVICE DATE: 06/22/2023 Trauma Service Pager: For questions or concerns Mon-Fri 6a-5p please page [phone]. After 5pm and on Weekends and Holidays, please page [phone] if in ICU or [phone] if on RNF. SUBJECTIVE: Acute events overnight. [...] 0659 06/22/23 07 - 06/23/23 0659 Shift 7629-8851 8188-8995 1465-7635 24 Hour Total 9455-5478 3939-7543 4475-0697 24 Hour Total INTAKE IV 749 749 [...] Recommendations: MST: Total MST Score (Calculated): 0 Carroter: Pharmacy: Consult not needed Social Work: NA Anticipated Discharge Disposition: Pending Discussed (more content not included)... [facility] 04-01-2023 Miscellaneous Notes Patient has been identified [...] Ilana Burr RN documented in this encounter [facility] 02-28-2023 Note HNO ID: [id number] Author: Luann Branch PA-C Service: ? Author Type: Physician Tea Leaf Reader Type: Progress Notes Filed: 03/01/2023 1:20 PM Note Text: FOLLOW UP VISIT - HERNIA NAME: Deniz Kumar [facility] NO.: [id number] DATE OF SERVICE: 02/28/2023 : 1935 REFERRING PHYSICIAN: Vadim Vega MD Deniz is a patient I am following with Dr. Ware for a recurrent umbilical hernia. Dr. Ware performed a repair of recurrent umbilical hernia on 02/21/23 at [facility]. The patient currently notes no major [...] agreed with the plan. Luann Branch PA-C [facility] 02-28-2023 Instructions Luann Branch PA-C - 02/28/2023 2:46 PM EDT The following instructions are important for you related to your office visit today with the [facility] General Surgeons. INSTRUCTIONS FOLLOWING YOUR RECENT HERNIA [...] you should contact our office immediately @ [phone] and ask to be transferred to the General Surgery department. documented in this encounter [facility] 02-28-2023 History of Present illness Narrative FOLLOW UP VISIT - HERNIA NAME: Deniz Kumar CLINIC NO.: [id number] DATE OF SERVICE: 02/28/2023 : 1935 REFERRING PHYSICIAN: Vadim Vega MD Deniz is a patient I am following with Dr. Ware for a recurrent umbilical hernia. Dr. Ware performed a repair of recurrent umbilical hernia on 02/21/23 at [facility]. The patient currently notes no major [...] Luann Branch PA-C documented in this encounter [facility] 02-15-2023 Note HNO ID: [id number] Author: Vadim Vega MD Service: ? Author Type: Physician Type: Progress Notes Filed: 02/15/2023 9:05 AM Note Text: This note was created using Acsendoriter. Subjective Deniz Kumar is a 87 year [...] - Worsening contro (more content not included)... [facility] 02-15-2023 History of Present illness Narrative This note was created using Yoogaia. Subjective Deniz Kumar is a 87 year [...] Vadim Vega MD documented in this encounter [facility] 01-25-2023 Note HNO ID: [id number] Author: Su Ware MD Service: ? Author [...] entered by the nurse and reviewed by me Nursing Notes: Fernanda Carmichael LPN 01/25/2023 3:09 [...] measles and mu (more content not included)... [facility] 01-25-2023 History of Present illness Narrative [...] entered by the nurse and reviewed by me Nursing Notes: Fernanda Carmichael LPN 01/25/2023 3:09 [...] for repair of recurrence umbilical hernia at [facility]. I spent a total of 21 minutes on the date of the service which included preparing to see the patient, [id number] patient care, obtaining oral medical history from the patient in this encounter, performing a medically appropriate examination, counseling and educating the patient/family/caregiver, and ordering and/or scheduling of medications/tests/procedures, and completing appropriate medical documentation. Su Ware MD documented in this encounter [facility] 01-25-2023 Nurse Note REVIEW OF SYSTEMS: General: [...] Fernanda Carmichael LPN documented in this encounter [facility] 01-04-2023 Note HNO ID: [id number] Author: Lynda Vernon PA-C Service: ? Author Type: Physician Tea Leaf Reader Type: Progress Notes Filed: 01/04/2023 9:26 AM Note Text: [facility] ESTABLISHED PATIENT CLINIC NOTE [...] and Family: Three times a week Attends Sabianist Services: Never Active Member of Clubs or [...] (POCT) Yellow WENDY (more content not included)... [facility] 01-04-2023 Note HNO ID: [id number] Author: Madison Camejo LPN Service: ? Author Type: ? Type: Progress Notes Filed: 01/04/2023 9:26 AM Note Text: Verified name and date of . CC Post Void Residual HPI: Deniz Kumar is a 87 year old male. The patient is here now for an appointment with Lynda Vernon, PETER, JAX, PA-GREG. Procedure: Explained procedure to patient and verbalizes understanding. Performed a PVR. Patient urinated and instructed to empty bladder as much as possible just prior to having PVR done using bladder ultrasound scanner. Results of scan: 0 mL The patient tolerated the procedure well. Plan: Appointment with Lynda. [facility] 01-04-2023 History of Present illness Narrative Images from the original note were not included. [facility] [...] and Family: Three times a week Attends Sabianist Services: Never Active Member of Clubs or [...] tolerated the procedure well. Plan: Appointment with Lynda. documented in this encounter [facility] 09-25-2022 Note HNO ID: [id number] Author: Shannon Fuentes LPN Service: ? Author Type: ? Type: Progress Notes Filed: 09/25/2022 1:57 PM Note Text: Phone call placed [facility] apoke to Carol appt scheduled 09/25/2022 at 1:50, patient notified with visit. Shannon Fuentes LPN [facility] 09-25-2022 Note HNO ID: [id number] Author: Hyun Major APRN.MAMMAL KEEPER Service: ? Author Type: Nurse Practitioner Type: Progress Notes Filed: 09/25/2022 1:57 PM Note Text: Subjective The history is provided by the patient. No spanish language lecturer was used. HPI Deniz Kumar is a [...] have confirmed and edited as necessary, the [facility] Review of Systems Constitutional: Negative for chills [...] tomorrow at [address] Rivera at [facility], who is his established opthamologist Diagnosis and treatment plan were discussed and questions were answered to the patient's satisfaction. Pt acknowledged understanding of concepts and follow up plan. Specific signs and symptoms that would indicate the need for higher level of care were discussed in detail warranting prompt ER evaluation. Hyun Major APRN.CNP [facility] 09-25-2022 Instructions Hyun Major APRN.CNP - 09/25/2022 1:38 PM EDT Appears to be subconjunctival hemorrhage - however would like to have you be re-evaluated tomorrow with Dr. Rivera Appointment at [facility] 09.26.2022 @ 1:50 PM Go to ER for any sudden loss of vision or severe vision changes. documented in this encounter [facility] 09-25-2022 History of Present illness Narrative Phone call placed [facility] apoke to Carol ramirez scheduled 09/25/2022 at 1:50, patient notified with visit. Shannon Fuentes LPN Images from the original note were not included. Subjective The history is provided by the patient. No spanish language lecturer was used. HPI Deniz Kumar is a [...] have confirmed and edited as necessary, the [facility] Review of Systems Constitutional: Negative for chills [...] tomorrow at [address] Rivera at [facility], who is his established opthamologist Diagnosis and treatment plan were discussed and questions were answered to the patient's satisfaction. Pt acknowledged understanding of concepts and follow up plan. Specific signs and symptoms that would indicate the need for higher level of care were discussed in detail warranting prompt ER evaluation. Hyun Major APRN.CNP documented in this encounter [facility] 08-31-2022 Note HNO ID: [id number] Author: Lynda Vernon PA-C Service: ? Author Type: Physician Tea Leaf Reader Type: Progress Notes Filed: 08/31/2022 10:49 AM Note Text: [facility] NEW CONSULT PATIENT CLINIC [...] and Family: Three times a week Attends Sabianist Services: Never Active Member of Clubs or [...] NO VARICOSE VEINS, (more content not included)... [facility] 08-31-2022 Note HNO ID: [id number] Author: Madison Camejo LPN Service: ? Author [...] tolerated the procedure well. Plan: Appointment with Lynda. [facility] 08-31-2022 Instructions Lynda Vernon PA-C - 08/31/2022 9:32 AM EST Follow up 3 month with PETER Blue [place], PA-C for follow-up on OAB documented in this encounter [facility] 08-31-2022 History of Present illness Narrative Images from the original note were not included. [facility] NEW CONSULT PATIENT CLINIC [...] and Family: Three times a week Attends Sabianist Services: Never Active Member of Clubs or [...] procedures, and care coordination. PETER [place], JONAH Verified name and date of . CC [...] tolerated the procedure well. Plan: Appointment with Lynda. documented in this encounter [facility] 08-16-2022 Note HNO ID: [id number] Author: Vadim Vega MD Service: ? Author Type: Physician Type: Progress Notes Filed: 08/16/2022 8:46 AM Note Text: This note was created using SurgeryEduter. Subjective Deniz Kumar is a 87 year [...] - CONSULT TO UROLOGY Vadim Vega MD [facility] 08-16-2022 Note HNO ID: [id number] Author: Vadim Vega MD Service: ? Author Type: Physician Type: Progress Notes Filed: 08/16/2022 8:46 AM Note Text: Deniz Kumar is a 87 year old male here for a Medicare Subsequent Annual Wellness Visit Health Risk Assessment In general, health is: Very good Concerns with balance:Several days Concerns with teeth or dentures:Not at all Concerns with sexual function:More than half the days Jefferson anxious, stressed, angry, irritable, lonely, isolated, or [...] recommended Shingrix at pharmacy - Depression screening [facility] 08-16-2022 Instructions Vadim Vega MD - 08/16/2022 8:40 AM EST Have you ever planned for future healthcare decisions with a power of environmental attorney, living will, or advance directives? Yes. [...] this for you. documented in this encounter [facility] 08-16-2022 History of Present illness Narrative This note was created using SurgeryEduter. Subjective Deniz Kumar is a 87 year [...] with sexual function:More than half the days Jefferson anxious, stressed, angry, irritable, lonely, isolated, or [...] - Depression screening documented in this encounter [facility] 08-03-2022 Miscellaneous Notes Patient has been identified [...] Cary Andre LPN documented in this encounter [facility] 05-05-2022 Miscellaneous Notes Pt was notified of the results. Pt verbalized understanding. Angélica San MA Please notify that covid. Continue with plan of care as discussed during visit. documented in this encounter [facility] 05-04-2022 History of Present illness Narrative This note was created using SurgeryEduter. Subjective Deniz Kumar is a 86 year [...] Susan Corado PA-C documented in this encounter [facility] 03-05-2022 History of Present illness Narrative [...] history is provided by the patient. No spanish language lecturer was used. Review of Systems Constitutional: Negative. Skin: Negative. Objective Physical Exam Exam conducted with a fruit or nut farmer present. Constitutional: Appearance: Normal appearance. Pulmonary: Effort: [...] okay with this care plan. Haylie Chin APRN.MAMMAL KEEPER documented in this encounter [facility] 02-08-2022 Instructions Vadim Vega MD - 02/08/2022 9:26 AM EDT FASTING BLOOD WORK BEFORE August APPOINTMENT. COPY OF ADVANCED DIRECTIVE FOR YOUR RECORD. documented in this encounter [facility] 02-08-2022 History of Present illness Narrative This note was created using Yoogaia. Subjective Deniz Kumar is a 86 year [...] Vadim Vega MD documented in this encounter [facility] 01-11-2022 Miscellaneous Notes Patient has been identified [...] Cee Alonzo Pss documented in this encounter [facility] 12-25-2021 History of Present illness Narrative Deniz [...] Su Ware MD documented in this encounter [facility] 10-01-2021 History of Present illness Narrative FOLLOW UP VISIT NAME: Deniz Echavarria Stacy [facility] NO.: [id number] DATE OF SERVICE: 09/29/2021 : 1935 REFERRING [...] Su Ware MD documented in this encounter [facility] documented as of this encounter (statuses as of 10/01/2021) [facility] History of Past illness Narrative* Problem Noted Date Resolved Date Dizziness and giddiness 08/22/2007 07/12/19 17 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 02/14/2007 07/12/2016 documented as of this encounter (statuses as of 12/30/2021) [facility] History of Past illness Narrative* Problem Noted Date Resolved Date Dizziness and giddiness 08/22/2007 07/12/19 17 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 02/14/2007 07/12/2016 documented as of this encounter (statuses as of 01/11/2022) [facility] History of Past illness Narrative* Problem Noted Date Resolved Date Dizziness and giddiness 08/22/2007 07/12/19 17 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 02/14/2007 07/12/2016 documented as of this encounter (statuses as of 02/08/2022) [facility] History of Past illness Narrative* Problem Noted Date Resolved Date Dizziness and giddiness 08/22/2007 07/12/19 17 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 02/14/2007 07/12/2016 documented as of this encounter (statuses as of 03/05/2022) [address]-2008 History of Past illness Narrative* Problem Noted Date Resolved Date Dizziness and giddiness 08/22/2007 07/12/19 17 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 02/14/2007 07/12/2016 documented as of this encounter (statuses as of 05/04/2022) [address]2008 History of Past illness Narrative* Problem Noted Date Resolved Date Dizziness and giddiness 08/22/2007 07/12/19 17 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 02/14/2007 07/12/2016 documented as of this encounter (statuses as of 05/05/2022) [address]2008 History of Past illness Narrative* Problem Noted Date Resolved Date Dizziness and giddiness 08/22/2007 07/12/19 17 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 02/14/2007 07/12/2016 documented as of this encounter (statuses as of 08/06/2022) [address]2008 History of Past illness Narrative* Problem Noted Date Resolved Date Dizziness and giddiness 08/22/2007 07/12/19 17 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 02/14/2007 07/12/2016 documented as of this encounter (statuses as of 08/16/2022) [address]2008 History of Past illness Narrative* Problem Noted Date Resolved Date Dizziness and giddiness 08/22/2007 07/12/19 17 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 02/14/2007 07/12/2016 documented as of this encounter (statuses as of 08/31/2022) [facility] History of Past illness Narrative* Problem Noted Date Resolved Date Dizziness and giddiness 08/22/2007 07/12/19 17 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 02/14/2007 07/12/2016 documented as of this encounter (statuses as of 09/25/2022) [address]2008 History of Past illness Narrative* Problem Noted Date Resolved Date Dizziness and giddiness 08/22/2007 07/12/19 17 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 02/14/2007 07/12/2016 documented as of this encounter (statuses as of 01/04/2023) [address]2008 History of Past illness Narrative* Problem Noted Date Diagnosed Date Resolved Date Dizziness and giddiness 08/22/200707/01 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 02/14/2007 07/12/2016 documented as of this encounter (statuses as of 01/27/2023) [address] History of Past illness Narrative* Problem Noted Date Diagnosed Date Resolved Date Dizziness and giddiness 08/22/200707/01 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 02/14/2007 07/12/2016 documented as of this encounter (statuses as of 02/15/2023) [address]2008 History of Past illness Narrative* Problem Noted Date Diagnosed Date Resolved Date Dizziness and giddiness 08/22/200707/01 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 02/14/2007 07/12/2016 documented as of this encounter (statuses as of 03/01/2023) [address] History of Past illness Narrative* Problem Noted Date Diagnosed Date Resolved Date Dizziness and giddiness 08/22/200707/01 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 02/14/2007 07/12/2016 documented as of this encounter (statuses as of 04/02/2023) [facility] Diagnosis Status post umbilical hernia repair, follow-up exam- Primary Follow-up examination, following other surgery [facility] Diagnosis Extrusion of suture, initial encounter- Primary documented [facility]* Diagnosis Benign prostatic hyperplasia with urinary obstruction Essential hypertension Unspecified essential hypertension [facility]* Diagnosis Myalgia- Primary Mylagia and myositis, unspecified Need for vaccination Need for prophylactic vaccination and inoculation against unspecified single disease Essential hypertension Unspecified essential hypertension Hyperlipidemia, unspecified hyperlipidemia type [facility]* Diagnosis Skin infection- Primary Unspecified local infection of skin and subcutaneous tissue documented in this encounter [facility]* Diagnosis Exposure to COVID-19 virus- Primary [facility] Diagnosis Benign prostatic hyperplasia with urinary obstruction Essential hypertension Unspecified essential hypertension [facility]* Diagnosis Medicare annual wellness visit, subsequent- Primary Routine general medical examination at a [facility] care facility Thrombocytopenia, unspecified (HCC) Thrombocytopenia, unspecified Essential hypertension Unspecified essential hypertension Benign prostatic hyperplasia with urinary obstruction Hyperlipidemia, unspecified hyperlipidemia type Erectile dysfunction, unspecified erectile dysfunction type documented [facility]* Diagnosis OAB (overactive bladder)- Primary Hypertonicity of bladder Erectile dysfunction, unspecified erectile dysfunction type Benign prostatic hyperplasia with urinary obstruction [facility]* Diagnosis Eye problem- Primary Other eye problems [facility]* Diagnosis OAB (overactive bladder)- Primary 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 [facility]* Diagnosis Recurrent umbilical hernia- Primary Umbilical hernia without mention of obstruction or gangrene [facility]* Diagnosis Benign prostatic hyperplasia with urinary obstruction- Primary Essential hypertension Unspecified essential hypertension Hyperlipidemia, unspecified hyperlipidemia type Hypoalbuminemia Other disorders of plasma protein metabolism Thrombocytopenia, unspecified (HCC) Thrombocytopenia, unspecified Recurrent umbilical hernia Umbilical hernia without mention of obstruction or gangrene [facility]* Diagnosis S/P hernia repair- Primary Other postprocedural status [facility] Diagnosis Hyperlipidemia, unspecified hyperlipidemia type documented in this encounter [facility] Summary Purpose Family History No Family History Records FoundNo Family History Records FoundNo Family History Records FoundNo Family History Records Found Advance Directives No Advanced Directives Records FoundDocuments on File Type Date Recorded Patient Roading Engineer Expl anation Advance Directive(s) 09/21/2021 10:36 AM Documents on File Type Date Recorded Patient Roading Engineer Expl anation Advance Directive(s) 03/01/2023 9:16 AM Reason for Referral Specialty Diagnoses / Procedures Referred By Julian aparicio Referred To Contact Urology Diagnoses Benign prostatic hyperplasia with urinary obstruction Erectile dysfunction, unspecified erectile dysfunction type Procedures CONSULT TO UROLOGY OFFICE/OUTPATIENT NEW HIGH MDM 60-74 MINUTES Vadim Vega MD [address] [place] [address] Referral ID Status Reason Start Date Expiration Date Visits Requested Visits Authorized [id number] Authorized PCP Requested Referral 08/16/2022 08/16/2023 1 1 Additional Source Comments (unrecognized sect ion and content) No Status Records FoundNo Status Records FoundNo Status Records FoundNo Status Records Found INFORMATION SOURCE (unrecogn ized section and content) DATE CREATED AUTHOR AUTHOR'S ORGANIZ ATION 11/22/2018 [facility] DATE CREATED AUTHOR AUTHOR'S ORGANIZ ATION 07/17/2023 [facility] DATE CREATED AUTHOR AUTHOR'S ORGANIZ ATION 07/18/2023 [facility] Source Comments (unrecognize d section and content) In the event this informatio n is protected by the Federal Confidentiality of Alcohol and Drug Abuse Patient Records regulations: The Federal rules restrict any use of the information to criminally investigate or prosecute any alcohol or drug abuse patient.[facility] the event this information is protected by the Federal Confidentiality of Alcohol and Drug Abuse Patient Records regulations: The Federal rules restrict any use of the information to criminally investigate or prosecute any alcohol or drug abuse patient.[facility] the event this information is protected by the Federal Confidentiality of Alcohol and Drug Abuse Patient Records regulations: The Federal rules restrict any use of the information to criminally investigate or prosecute any alcohol or drug abuse patient.[facility] the event this information is protected by the Federal Confidentiality of Alcohol and Drug Abuse Patient Records regulations: The Federal rules restrict any use of the information to criminally investigate or prosecute any alcohol or drug abuse patient.[facility] the event this information is protected by the Federal Confidentiality of Alcohol and Drug Abuse Patient Records regulations: The Federal rules restrict any use of the information to criminally investigate or prosecute any alcohol or drug abuse patient.[facility] the event this information is protected by the Federal Confidentiality of Alcohol and Drug Abuse Patient Records regulations: The Federal rules restrict any use of the information to criminally investigate or prosecute any alcohol or drug abuse patient.[facility] the event this information is protected by the Federal Confidentiality of Alcohol and Drug Abuse Patient Records regulations: The Federal rules restrict any use of the information to criminally investigate or prosecute any alcohol or drug abuse patient.[facility] the event this information is protected by the Federal Confidentiality of Alcohol and Drug Abuse Patient Records regulations: The Federal rules restrict any use of the information to criminally investigate or prosecute any alcohol or drug abuse patient.[facility] the event this information is protected by the Federal Confidentiality of Alcohol and Drug Abuse Patient Records regulations: The Federal rules restrict any use of the information to criminally investigate or prosecute any alcohol or drug abuse patient.[facility] the event this information is protected by the Federal Confidentiality of Alcohol and Drug Abuse Patient Records regulations: The Federal rules restrict any use of the information to criminally investigate or prosecute any alcohol or drug abuse patient.[facility] the event this information is protected by the Federal Confidentiality of Alcohol and Drug Abuse Patient Records regulations: The Federal rules restrict any use of the information to criminally investigate or prosecute any alcohol or drug abuse patient.[facility] the event this information is protected by the Federal Confidentiality of Alcohol and Drug Abuse Patient Records regulations: The Federal rules restrict any use of the information to criminally investigate or prosecute any alcohol or drug abuse patient.[facility] the event this information is protected by the Federal Confidentiality of Alcohol and Drug Abuse Patient Records regulations: The Federal rules restrict any use of the information to criminally investigate or prosecute any alcohol or drug abuse patient.[facility] the event this information is protected by the Federal Confidentiality of Alcohol and Drug Abuse Patient Records regulations: The Federal rules restrict any use of the information to criminally investigate or prosecute any alcohol or drug abuse patient.[facility] Hospital[facility] the event this information is protected by the Federal Confidentiality of Alcohol and Drug Abuse Patient Records regulations: The Federal rules restrict any use of the information to criminally investigate or prosecute any alcohol or drug abuse patient.[facility] HospitalIn the event this information is protected by the Federal Confidentiality of Alcohol and Drug Abuse Patient Records regulations: The Federal rules restrict any use of the information to criminally investigate or prosecute any alcohol or drug abuse patient.[facility] Reason for Visit (unrecogniz ed section and [...] Dysfunction Specialty Diagnoses / Procedures Referred By Contac t Referred To Contact Urology Diagnoses Benign prostatic hyperplasia with urinary obstruction Erectile dysfunction, unspecified erectile dysfunction type Procedures CONSULT TO UROLOGY OFFICE/OUTPATIENT NEW HIGH MDM 60-74 MINUTES Vadim Vega MD [address] [place] [address] Referral ID Status Reason Start Date Expiration Date V isits Requested Visits Authorized [id number] Closed PCP Requested Referral 08/16/2022 08/16/2023 1 1 Reason Comments Eye Problem Pt reported (LT) eye irritation, onset AM denied pain, visual changes. Reason Comments Follow Up Erectile Dysfunction Overactive Bladder Reason Comments Consult Hernia repair Reason Comments Post Op Follow Up Hernia repair Shirley Reason Onset Date Comments Refill Request 04/01/2023 Care Teams (unrecognized sec tion and content) Tentering Machine Off Bearer Relationship Specialty Start Date End Date Vadim Vega MD [facility] [place] [address] PCP - General Internal Medicine 07/23/16 Tentering Machine Off Bearer Relationship Specialty Start Date End Date Vadim Vega MD [facility] [place] [address] PCP - General Internal Medicine 07/23/16 Tentering Machine Off Bearer Relationship Specialty Start Date End Date Vadim Vega MD [facility] [place] [address] PCP - General Internal Medicine 07/23/16 Tentering Machine Off Bearer Relationship Specialty Start Date End Date Vadim Vega MD [facility] [place] [address] PCP - General Internal Medicine 07/23/16 Tentering Machine Off Bearer Relationship Specialty Start Date End Date Vadim Vega MD [address] [place] [address] [id number] PCP - General Internal Medicine 07/23/16 Tentering Machine Off Bearer Relationship Specialty Start Date End Date Vadim Vega MD [address] [place] [id number] PCP - General Internal Medicine 07/23/16 Tentering Machine Off Bearer Relationship Specialty Start Date End Date Vadim Vega MD [address] [place] [address] PCP - General Internal Medicine 07/23/16 Tentering Machine Off Bearer Relationship Specialty Start Date End Date Vadim Vega MD [address] [facility] [place] [address] PCP - General Internal Medicine 07/23/16 Tentering Machine Off Bearer Relationship Specialty Start Date End Date Vadim Vega MD [address] [place] [address] PCP - General Internal Medicine 07/23/16 Tentering Machine Off Bearer Relationship Specialty Start Date End Date Vadim Vega MD [address] [place] [address] PCP - General Internal Medicine 07/23/16 Tentering Machine Off Bearer Relationship Specialty Start Date End Date Vadim Vega MD [address] [facility] [place] [address] PCP - General Internal Medicine 07/23/16 Tentering Machine Off Bearer Relationship Specialty Start Date End Date Vadim Vega MD [address] [place] [address] PCP - General Internal Medicine 07/23/16 FOR [...] BE BASED ON THE PRIMARY CLINICAL RECORDS. [facility]. provides no warranty or guarantee of the accuracy or completeness of information in this document.
[2023-07-22 09:00] LABS: Hematocrit 45.3 % (40-54); Mean Corp Hgb Conc 33.1 g/dL (32-36); Mean Corpuscular Hgb 30.1 pg (27.0-32.0); Mean Corpuscular Volume 90.8 fL (80-94); Mean Platelet Vol. 10.5 fl (6.2-12.0); Platelet Count 214 K/mm3 (150-450); RBC Distribution Width CV 12.8 % (11.6-14.6); RBC Distribution Width SD 42.7 fl (35.1-43.9); Red Blood Count 4.99 M/mm3 (4.6-6.2); White Blood Count 5.4 K/mm3 (4.4-11.0)
[2023-07-22 10:19] LABS: Anion Gap 10 (5-15); BUN 36 mg/dL (7-18); BUN/Creat Ratio 33.6 RATIO (10-20); Calcium,Total 10.2 mg/dL (8.5-10.1); Chloride 102 mmol/L (98-107); Creatinine, Serum 1.07 mg/dL (0.70-1.30); EST Glomerular Filtration Rate 70 mL/min (>60); Est Glom Filt Rate - Afr Amer 84 mL/min (>60); Glucose 84 mg/dL (74-106); Potassium 3.4 mmol/L (3.5-5.1); Sodium Level 138 mmol/L (136-145)
== END ==
LOC: OLS.SW 04:00
PROVIDERS: PCP Internal Medicine; Referring Provider Internal Medicine; Visit Provider Internal Medicine
DX: I10 Essential (primary) hypertension (principal); D69.6 Thrombocytopenia, unspecified
CPT/HCPCS: 36415; 80048; 85027

== ENCOUNTER → 2023-07-29 | Outpatient (REF) | payer MEDICARE, SELFPAY ==
[2023-07-29 08:58] LABS: Mean Corp Hgb Conc 32.6 g/dL (32-36); Mean Corpuscular Hgb 29.5 pg (27.0-32.0); Mean Corpuscular Volume 90.4 fL (80-94); Mean Platelet Vol. 11.3 fl (6.2-12.0); Platelet Count 151 K/mm3 (150-450); RBC Distribution Width CV 12.7 % (11.6-14.6); RBC Distribution Width SD 42.5 fl (35.1-43.9); Red Blood Count 5.09 M/mm3 (4.6-6.2); White Blood Count 5.3 K/mm3 (4.4-11.0)
--- OUTSIDE RECORDS SUMMARY | 2023-07-29 09:02 | XMS RPT_ITS | CCD ---
Author Name Unknown Address [address] [place] [address] Organization [facility] Care Team Providers Care Film Projector Operator Name Role Phone Vadim Vega MD Primary Care Provider LYNDA HOLMAN Referring Unavailable SILVIA, VADIM Barcenas Primary Care Unavailable LYNDA HOLMAN Referring Unavailable MYA VALDEZ Attending Unavailable SILVIA, VADIM Barcenas Primary Care [...] Care Unavailable VEGA, VADIM Barcenas Attending Unavailable VEGA, VADIM Barcenas Primary Care Unavailable VEGA, VAIDM Barcenas Referring Unavailable Allergies Allergy Classification Reported Allergen(s) Allergy Type Date of Onset Reaction(s) Facility (18 sources) Clearasil Maximum Strength; Translations: [CLEARASIL MAXIMUM STRENGTH] Drug Intolerance 9 Swelling [facility] Work Phone: Medications Current Medications Medication [...] subarachnoid hemorrhage, unspecified; Translations: [SAH (subarachnoid hemorrhage) ([facility])] Onset: 07-16-2023 Chronic Coagulation and hemorrhagic disorders [...] 02-28-2023 14:20-0400 Body temperature 98.1 [degF] Luann aMrtinezf PA-C Work Phone: [facility] 02-28-2023 14:20-0400 Diastolic blood pressure 84 mm[Hg] Luannюлия Martinezf PA-C Work Phone: [facility] 02-28-2023 14:20-0400 Heart rate 84 /min Luannюлия Branch PA-C Work Phone: [facility] 02-28-2023 14:20-0400 SaO2% (BldA) [Mass fraction] 95 % Luann Glen Dale PA-C Work Phone: [facility] 02-28-2023 14:20-0400 Systolic blood pressure 136 mm[Hg] Luann [place] PA-C Work Phone: [facility] 02-15-2023 08:08-0400 Body weight 97.07 kg Vadim Vega MD Work Phone: [facility] 02-15-2023 08:08-0400 Diastolic blood pressure 82 mm[Hg] Vadim Vega MD Work Phone: [facility] 02-15-2023 08:08-0400 Heart rate 85 /min Vadim Vega MD Work Phone: [facility] 02-15-2023 08:08-0400 Respiratory rate 16 /min Vadim Vega MD Work Phone: [facility] 02-15-2023 08:08-0400 SaO2% (BldA) [Mass fraction] 96 % Vadim Vega MD Work Phone: [facility] 02-15-2023 08:08-0400 Systolic blood pressure 128 mm[Hg] Vadim Vega MD Work Phone: [facility] 01-25-2023 14:58-0400 Body height 182.9 cm Su Ware MD Work Phone: [facility] 01-25-2023 14:58-0400 Body temperature 98.01 [degF] Su Ware MD Work Phone: [facility] 01-25-2023 14:58-0400 Body weight 99.07 kg Su Ware MD Work Phone: [facility] 01-25-2023 14:58-0400 Diastolic blood pressure 80 mm[Hg] Su Ware MD Work Phone: [facility] 01-25-2023 14:58-0400 Heart rate 91 /min Su Ware MD Work Phone: [facility] 01-25-2023 14:58-0400 SaO2% (BldA) [Mass fraction] 96 % Su Ware MD Work Phone: [facility] 01-25-2023 14:58-0400 Systolic blood pressure 132 mm[Hg] Su Ware MD Work Phone: [facility] 01-04-2023 08:10-0400 Body height 182.9 cm Lynda Vernon PA-C Work Phone: [facility] 01-04-2023 08:10-0400 Body temperature 97.81 [degF] Lynda Vernon PA-C Work Phone: [facility] 01-04-2023 08:10-0400 Body weight 98.88 kg Lynda Vernon PA-C Work Phone: [facility] 01-04-2023 08:10-0400 Diastolic blood pressure 88 mm[Hg] Lynda Vernon PA-C Work Phone: [facility] 01-04-2023 08:10-0400 Heart rate 80 /min Lynda Vernon PA-C Work Phone: [facility] 01-04-2023 08:10-0400 Respiratory rate 12 /min Lynda Vernon PA-C Work Phone: [facility] 01-04-2023 08:10-0400 SaO2% (BldA) [Mass fraction] 95 % Lynda Vernon PA-C Work Phone: [facility] 01-04-2023 08:10-0400 Systolic blood pressure 138 mm[Hg] Lynda Vernon PA-C Work Phone: [facility] 09-25-2022 13:26-0400 Body temperature 98.01 [degF] Hyun Moriah ANDROID IOS DEVELOPER.PUMP PRESS OPERATOR Work Phone: [facility] 09-25-2022 13:26-0400 Body weight 100.25 kg Hyun Moriah ANDROID IOS DEVELOPER.PUMP PRESS OPERATOR Work Phone: [facility] 09-25-2022 13:26-0400 Diastolic blood pressure 84 mm[Hg] Hyun Moriah ANDROID IOS DEVELOPER.PUMP PRESS OPERATOR Work Phone: [facility] 09-25-2022 13:26-0400 Heart rate 88 /min Hyun Moriah ANDROID IOS DEVELOPER.PUMP PRESS OPERATOR Work Phone: [facility] 09-25-2022 13:26-0400 Respiratory rate 18 /min Hyun Moriah ANDROID IOS DEVELOPER.PUMP PRESS OPERATOR Work Phone: [facility] 09-25-2022 13:26-0400 SaO2% (BldA) [Mass fraction] 96 % Hyun Moriah ANDROID IOS DEVELOPER.PUMP PRESS OPERATOR Work Phone: [facility] 09-25-2022 13:26-0400 Systolic blood pressure 128 mm[Hg] Hyun Moriah ANDROID IOS DEVELOPER.PUMP PRESS OPERATOR Work Phone: [facility] 08-31-2022 08:13-0500 Body height 182.9 cm Lynda Vernon PA-C Work Phone: [facility] 08-31-2022 08:13-0500 Body temperature 98.49 [degF] Lynda Vernon PA-C Work Phone: [facility] 08-31-2022 08:13-0500 Body weight 98.88 kg Lynda Vernon PA-C Work Phone: [facility] 08-31-2022 08:13-0500 Diastolic blood pressure 90 mm[Hg] Lynda Vernon PA-C Work Phone: [facility] 08-31-2022 08:13-0500 Heart rate 80 /min Lynda Vernon PA-C Work Phone: [facility] 08-31-2022 08:13-0500 Respiratory rate 14 /min Lynda Vernon PA-C Work Phone: [facility] 08-31-2022 08:13-0500 SaO2% (BldA) [Mass fraction] 95 % Lynda Vernon PA-C Work Phone: [facility] 08-31-2022 08:13-0500 Systolic blood pressure 134 mm[Hg] Lynda Vernon PA-C Work Phone: [facility] 08-16-2022 08:08-0500 Body height 182.9 cm Vadim Vega MD Work Phone: [facility] 08-16-2022 08:08-0500 Body temperature 97.2 [degF] Vadim Vega MD Work Phone: [facility] 08-16-2022 08:08-0500 Body weight 97.52 kg Vadim Vega MD Work Phone: [facility] 08-16-2022 08:08-0500 Diastolic blood pressure 72 mm[Hg] Vadim Vega MD Work Phone: [facility] 08-16-2022 08:08-0500 Heart rate 72 /min Vadim Vega MD Work Phone: [facility] 08-16-2022 08:08-0500 Respiratory rate 12 /min Vadim Vega MD Work Phone: [facility] 08-16-2022 08:08-0500 Systolic blood pressure 118 mm[Hg] Vadim Vega MD Work Phone: [facility] 05-04-2022 08:28-0400 Body temperature 97.59 [degF] Susan Athy PA-C Work Phone: [facility] 05-04-2022 08:28-0400 Body weight 96.89 kg Susan Athy PA-C Work Phone: [facility] 05-04-2022 08:28-0400 Diastolic blood pressure 78 mm[Hg] Susan Athy PA-C Work Phone: [facility] 05-04-2022 08:28-0400 Heart rate 72 /min Susan Athy PA-C Work Phone: [facility] 05-04-2022 08:28-0400 Respiratory rate 16 /min Susan Athy PA-C Work Phone: [facility] 05-04-2022 08:28-0400 SaO2% (BldA) [Mass fraction] 98 % Susan Athy PA-C Work Phone: [facility] 05-04-2022 08:28-0400 Systolic blood pressure 126 mm[Hg] Susan Athy PA-C Work Phone: [facility] 03-05-2022 09:25-0400 Body temperature 97.2 [degF] Haylie Chin APRN.PUMP PRESS OPERATOR Work Phone: [facility] 03-05-2022 09:25-0400 Body weight 97.7 kg Haylie Chin APRN.PUMP PRESS OPERATOR Work Phone: [facility] 03-05-2022 09:25-0400 Diastolic blood pressure 90 mm[Hg] Haylie Chin APRN.PUMP PRESS OPERATOR Work Phone: [facility] 03-05-2022 09:25-0400 Heart rate 92 /min Haylie Chin APRN.PUMP PRESS OPERATOR Work Phone: [facility] 03-05-2022 09:25-0400 Respiratory rate 18 /min Haylie Chin APRN.PUMP PRESS OPERATOR Work Phone: [facility] 03-05-2022 09:25-0400 SaO2% (BldA) [Mass fraction] 94 % Haylie Chin APRN.PUMP PRESS OPERATOR Work Phone: [facility] 03-05-2022 09:25-0400 Systolic blood pressure 132 mm[Hg] Haylie Chin APRN.PUMP PRESS OPERATOR Work Phone: [facility] 02-08-2022 08:55-0400 Body temperature 97 [degF] Vadim Vega MD Work Phone: [facility] 02-08-2022 08:55-0400 Body weight 94.98 kg Vadim Vega MD Work Phone: [facility] 02-08-2022 08:55-0400 Diastolic blood pressure 68 mm[Hg] Vadim Vega MD Work Phone: [facility] 02-08-2022 08:55-0400 Heart rate 68 /min Vadim Vega MD Work Phone: [facility] 02-08-2022 08:55-0400 Respiratory rate 16 /min Vadim Vega MD Work Phone: [facility] 02-08-2022 08:55-0400 Systolic blood pressure 114 mm[Hg] Vadim Vega MD Work Phone: [facility] 12-25-2021 14:35-0400 Body height 182.9 cm Su Ware MD Work Phone: [facility] 12-25-2021 14:35-0400 Body temperature 98.29 [degF] Su Ware MD Work Phone: [facility] 12-25-2021 14:35-0400 Body weight 96.62 kg Su Ware MD Work Phone: [facility] 12-25-2021 14:35-0400 Diastolic blood pressure 58 mm[Hg] Su Ware MD Work Phone: [facility] 12-25-2021 14:35-0400 Heart rate 91 /min Su Ware MD Work Phone: [facility] 12-25-2021 14:35-0400 SaO2% (BldA) [Mass fraction] 94 % Su Ware MD Work Phone: [facility] 12-25-2021 14:35-0400 Systolic blood pressure 106 mm[Hg] Su Ware MD Work Phone: [facility] 09-29-2021 13:02-0400 Body height 182.9 cm Su Ware MD Work Phone: [facility] 09-29-2021 13:02-0400 Body temperature 98.29 [degF] Su Ware MD Work Phone: [facility] 09-29-2021 13:02-0400 Body weight 97.52 kg Su Ware MD Work Phone: [facility] 09-29-2021 13:02-0400 Diastolic blood pressure 68 mm[Hg] Su Ware MD Work Phone: [facility] 09-29-2021 13:02-0400 Heart rate 81 /min Su Ware MD Work Phone: [facility] 09-29-2021 13:02-0400 SaO2% (BldA) [Mass fraction] 96 % Su Ware MD Work Phone: [facility] 09-29-2021 13:02-0400 Systolic blood pressure 136 mm[Hg] Su Ware MD Work Phone: [facility] Encounters Encounter Date Encounter Type Care Provider Facility Start: 07-16-2023 End: 07-16-2023 ambulatory NICOLÁS MATTA Facility:[facility] Start: 07-09-2023 End: 07-09-2023 ambulatory LYNDA HOLMAN Facility:[facility] Start: 06-21-2023 End: 06-27-2023 Evaluation and management of inpatient MYA VALDEZ Facility:[facility] Start: 04-01-2023 Refill Vadim gruber MD Work Phone: [facility] [place] Procedures Date Procedure Procedure Detail Performing Clinician Start: 06-21-2023 Antibody screen LYNDA HOLMAN Plan of Treatment Date Care Activity Detail Author Start: 02-08-2026 DIABETES SCREEN DIABETES SCREEN [facility] Start: 02-08-2026 Diabetes Screening Diabetes Screenin g [facility] Start: 08-09-2025 DIABETES SCREEN DIABETES SCREEN [facility] Start: 02-01-2025 DIABETES SCREEN DIABETES SCREEN [facility] Start: 08-07-2024 DIABETES SCREEN DIABETES SCREEN [facility] Start: 01-16-2024 Urine microalbumin profile [facility] Immunizations Immunization Date Immunization Notes Care Provider Fa malia 03-25-2023 influenza (aIIV4) vaccine, age 65+ yr, quadrivalent, PF (FLUAD QUAD) Vadim Vega MD Work Phone: [facility] 12-21-2022 COVID-19 vaccine, ag e 12+ yr, bivalent (PFIZER-BIONTECH) Lynda Vernon PA-C Work Phone: [facility] Work Phone: 03-27-2022 influenza, high dose seasonal, preservative-free Vadim Vega MD Work Phone: [facility] Work Phone: 03-12-2022 COVID-19 booster vaccine, age 12+ yr, bivalent (PFIZER-BIONTECH) Susan Corado PA-C Work Phone: [facility] Work Phone: 02-08-2022 pneumococcal (PCV20) vaccine, 20 valent (PREVNAR 20) Vadim Vega MD Work Phone: [facility] Work Phone: 02-08-2022 pneumococcal Conjugate, unspecified formulation Vadim Vega MD Work Phone: [facility] Work Phone: 03-17-2021 influenza, high-dose , quadrivalent vaccine (FLUZONE HIGH DOSE QUADRIVALENT) Su Ware MD Work Phone: [facility] Work Phone: 07-07-2020 COVID-19 vaccine, ag e 12+ yr ([employer] - PURPLE TOP) Su Ware MD Work Phone: [facility] Work Phone: 03-30-2020 influenza, high dose seasonal, preservative-free Su Ware MD Work Phone: [facility] Work Phone: 03-30-2019 influenza, high dose seasonal, preservative-free Su Ware MD Work Phone: [facility] Work Phone: 03-23-2018 influenza, high dose seasonal, preservative-free Su Ware MD Work Phone: [facility] Work Phone: 04-04-2017 influenza, injectabl e, quadrivalent, contains preservative Su Ware MD Work Phone: [facility] Work Phone: 04-04-2016 influenza, seasonal, injectable Su Ware MD Work Phone: [facility] 04-14-2015 influenza, high dose seasonal, preservative-free Su Ware MD Work Phone: [facility] 01-13-2015 pneumococcal conjuga te vaccine, 13 valent Su Ware MD Work Phone: [facility] 04-13-2014 influenza, seasonal, injectable Su Ware MD Work Phone: [facility] Work Phone: 03-31-2013 influenza virus vaccine, unspecified formulation Su Ware MD Work Phone: [facility] 06-19-2012 zoster vaccine, live Su child MD Work Phone: [facility] 03-31-2012 influenza virus vaccine, unspecified formulation Su Ware MD Work Phone: [facility] 06-29-2009 novel [id number], preservative-free, injectable Su Ware MD Work Phone: [facility] Work Phone: 08-22-2007 tetanus and diphther ia toxoids, adsorbed, preservative free, for adult use (2 Lf of tetanus toxoid and 2 Lf of diphtheria toxoid) Su Ware MD Work Phone: [facility] Work Phone: Payers Date Payer Category Payer Medicare [id number] 2021 Medicare [employer] MEDICARE HU[employer]NA MEDICARE PPO [id number] 2021-Present [phone] [address] [place] [address] PPO [id number] 2021 Medicare [employer]NA MEDICARE HU[employer]NA MEDICARE PPO [id number] 2021-Present [phone] [place] [id number] PPO [id number] 2021 Medicare [id number] Social History Date Type Detail Facility Start: 02-08-2022 End: 01-04-2023 Tobacco smoking status NHIS Ex-smoker [facility] History of tobacco use Cigarette Smoker [facility] History of tobacco use Pipe Smoker [facility] End: 07-01-1993 History of tobacco use User of smokeless tobacco [facility] Start: 09-29-2021 End: 02-28-2023 Alcohol intake Current drinker of alcohol (finding) [facility] Start: 09-29-2021 End: 01-25-2023 Alcohol intake [facility] Work Phone: Start: 08-11-2021 End: 08-16-2022 History SDOH Alcohol Frequency 3 [facility] Start: 08-11-2021 End: 08-16-2022 History SDOH Alcohol Std Drinks 1 [facility] Start: 07-28-2020 History SDOH Alcohol Comment or less. [facility] Start: 08-11-2021 End: 08-16-2022 History SDOH Social Connections Phone 5 [facility] Start: 08-11-2021 End: 08-16-2022 History SDOH Social Connections Living 7 [facility] Start: 08-11-2021 End: 08-16-2022 History SDOH Physical Activity DPW 2 [facility] Start: 08-11-2021 End: 08-16-2022 History SDOH Financial 4 [facility] Start: 1935 Sex Assigned At Not on file [facility] Start: 09-19-2021 End: 02-08-2022 Exposure to SARS-CoV-2 (event) Not sure [facility] History of tobacco use Current smoker [facility] Work Phone: Start: 02-08-2022 Tobacco use and exposure Forme r smokeless tobacco user [facility] Work Phone: Start: 02-08-2022 Tobacco Comment Quit 1993 (cig x 5 years and pipe x 20 years) [facility] Start: 04-24-2022 End: 05-04-2022 Exposure to SARS-CoV-2 (event) Yes [facility] Start: 01-04-2023 Tobacco use and exposure Smoke less tobacco non-user [facility] Start: 08-16-2022 End: 01-25-2023 Social connection and isolation panel [facility] Work Phone: Are you now , , , , never or living with a partner? Never [facility] Work Phone: How often to you hav e a drink containing alcohol? 2-4 times a month [facility] Work Phone: How many standard dr inks containing alcohol do you have on a typical day? 1 or 2 [facility] Work Phone: How often do you hav e 6 or more drinks on 1 occasion? Never [facility] Work Phone: How hard is it for y ou to pay for the very basics like food, housing, medical care, and heating Not very hard [facility] Work Phone: Adult Depression Screening Assessment 0 [facility] Work Phone: Do you feel stress - tense, restless, nervous, or anxious, or unable to sleep at night because your mind is troubled all the time - these days [OSQ] Not at all [facility] Work Phone: Clinical Notes 08-22-2007 to 07-16-2023 Telephone Encounter - Ilana Burr RN - 04/01/2023 10:42 AM EDTPatient InstructionsLuann Branch PA-C - 02/28/2023 2:29 PM Vadim Ty MD - 02/15/2023 8:33 AM EDTPatient Instructions Note Date & Type Note Facility 07-16-2023 Note HNO ID: [id number] Author: NICOLÁS MATTA MD Service: ? Author Type: Physician Type: Progress Notes Filed: 07/16/2023 11:16 Note Text: NEUROSURGERY FOLLOW UP OFFICE NOTE Dr. Nicolás Matta MD, [facility] Date of visit: July 16, 2023 Patient Name: Mr.Peter Jericho Kumar Date of : 1935 Current Age: [age] year old Sex: male MRN/E# [id number] Last Office Visit: Hospital follow-up CHIEF COMPLAINT: Patient presents with: Established Patient SUBJECTIVE: The patient presents as a hospital follow-up with imaging (CT B) for evaluation. This is an 88-year-old male with a PMHx TIA, HTN, hypercholesterolemia, thrombocytopenia who was seen for consult at [facility] on 06/21/2023 after a fall while hiking [...] well. He is currently in rehab in [place] and hopes to be discharged to a long term this week. He denies headache, visual changes, [...] for dizziness, seizure (more content not included)... [facility] 07-16-2023 Note HNO ID: [id number] Author: YOANA VASQUEZ RT(R) Service: Radiology Author [...] RT Karol(R) July 16, 2023 10:14 AM [facility] 07-09-2023 Note HNO ID: [id number] Author: MYA VALDEZ MD Service: ? Author [...] he will contact the office. Questions answered. [facility] 06-27-2023 Note HNO ID: [id number] Author: Sultana Nolasco RN Service: Care Management Author Type: Registered Nurse Type: Care Mgt Progress Note Filed: 06/27/2023 3:12 PM Note Text: CARE MANAGEMENT DISCHARGE NOTE SERVICE DATE: June 27, 2023 SERVICE TIME: 3:10 PM Admission Date: 06/21/2023 LOS: 6 days Discharge Arrangement Discharge Arrangement: Alf Facility Was an expedited discharge program used?: Yes Type: [employer] Arranged Provider Name: [facility] Caregiver Assessment Caregiver is ready, willing and able to meet the patient's needs as recommended by the inter-professional team: Yes Name of Caregiver: Staff at SNF Transportation Arrangements Transportation Arrangements: Ambulance Transportation Agency and Phone #:: [facility] ( [facility] ) [phone] / [phone] Date of Trip: 06/27/23 Time of Trip: 1700 Type of Service: BLS Non-emergency Is Patient Medicaid Pending?: No Was transportation financial coverage discussed with family?: Family Railroad Accountant Location: [facility] Destination: [facility] Financial Care Management Responsibility: None Handoff Communication: Additional Information: Pt is D/C today to SNF in [place]. Will transport at 5 pm by cot transport with [facility]. D/C paperwork sent electronically. RN will call nurse to nurse report. Pt is aware of D/C plans and stated he would call his family. SIGNATURE: Sultana Nolasco RN PATIENT NAME: Deniz Kumar DATE: June 27, 2023 TIME: 3:10 PM CONTACT #: [phone] [facility] 06-27-2023 Note HNO ID: [id number] Author: Joellen Ramirez Service: Care Management Author Type: ? Type: Care Mgt Progress Note Filed: 06/27/2023 1:23 PM Note Text: [facility] PRECERT NOTE [employer] MEDICARE PPO approved Alf Facility for [facility] . Precert approved through 07/02/2023. For any additional questions regarding approvals, transport or care management needs, please contact the CM assigned to this patient in the Treatment Team. SIGNATURE: Joellen Dominguez DATE: June 27, 2023 TIME: 1:22 PM [facility] 06-27-2023 Note HNO ID: [id number] Author: Sultana Nolasco RN Service: Care Management [...] 27, 2023 TIME: 3:07 PM PAGER/CONTACT #: [phone] [facility] 06-27-2023 Note HNO ID: [id number] Author: Liz Naylor APRN.CNP Service: General Surgery [...] vulnerability screens were reviewed by Liz Naylor APRN.PUMP PRESS OPERATOR and results were communicated to surgeon/surgical team who devised the above plan. The plan was communicated to the patient and family/caregivers: Via nursing dc instructions Patient/Caregivers were given educational material on delirium, falls, and mobility. Patient's primary doctor: Vadim Vega MD This plan was communicated to the patient's primary doctor: Through Electronic Health Record (EHR) messaging Disposition: Patient to be discharged to Subacute/SNF [facility] 06-27-2023 Note HNO ID: [id number] Author: Sultana Nolasco RN Service: Care Management Author Type: Registered Nurse Type: Care Mgt Progress Note Filed: 06/27/2023 9:09 AM Note Text: CARE MANAGEMENT PROGRESS NOTE SERVICE DATE: 06/27/2023 SERVICE TIME: 9:07 AM LOS: 6 days Requested 7000 be completed and have requested [facility] to start precert to [facility]. . Pt will need cot transport d/t NWB status of LLE - POD#4 SIGNATURE: Sultana Nolasco RN PATIENT NAME: Deniz Kumar DATE: June 27, 2023 TIME: 9:06 AM PAGER/CONTACT #: [phone] [facility] 06-27-2023 Note HNO ID: [id number] Author: Sultana Nolasco RN Service: Care Management Author Type: Registered Nurse Type: Care Mgt Progress Note Filed: 06/27/2023 8:59 AM Note Text: Attestation signed by Kade Garrett MD at 06/27/2023 9:00 AM SIGNATURE: Kaed Garrett MD PATIENT NAME: Deniz Kumar DATE: June 27, 2023 TIME: 9:00 AM Pager: [phone] CARE MANAGEMENT PROGRESS NOTE SERVICE DATE: 06/27/2023 [...] 27, 2023 TIME: 8:58 AM PAGER/CONTACT #: [phone] [facility] 06-27-2023 Note HNO ID: [id number] Author: Mya William PA-C Service: General Surgery Author Type: Physician Collar Shaper Operator Type: Progress Notes Filed: 06/27/2023 8:04 AM Note Text: Trauma Surgery Progress Note SERVICE DATE: 06/27/2023 Trauma Service Pager: For questions or concerns Mon-Fri 6a-5p please page [phone]. After 5pm and on Weekends and Holidays, [...] 0659 06/27/23 07 - 06/28/23 0659 Shift [phone] 24 Hour Total [phone] 24 Hour Total INTAKE PO 240 320 [...] copied from prior (more content not included)... [facility] 06-26-2023 Note HNO ID: [id number] Author: Sultana Nolasco, RN Service: Care Management Author Type: Registered Nurse Type: Care Mgt Progress Note Filed: 06/26/2023 3:02 PM Note Text: CARE MANAGEMENT PROGRESS NOTE SERVICE DATE: 06/26/2023 SERVICE TIME: 2:57 PM LOS: 5 days Per pt and sisterGerri, SNF referrals placed to [facility] and [facility] in [place], yesterday afternoon Today, [facility] has accepted for skilled care. They are FOC. TC to PT/ OT and they are to do re-evals for obtaining auth. CM following. SIGNATURE: Sultana Nolasco RN PATIENT NAME: Deniz Kumar DATE: June 26, 2023 TIME: 2:57 PM PAGER/CONTACT #: [phone] [facility] 06-26-2023 Note HNO ID: [id number] Author: Michelle Andino APRN.CNP Service: General Surgery Author Type: Nurse Practitioner Type: Progress Notes Filed: 06/26/2023 8:31 AM Note Text: Trauma Surgery Progress Note SERVICE DATE: 06/26/2023 Trauma Service Pager: For questions or concerns Mon-Fri 6a-5p please page [phone]. After 5pm and on Weekends and Holidays, please page [phone] if in ICU or [phone] if on RNF. SUBJECTIVE: No acute overnight [...] 06/26/23 0659 06/26/23699 - 06/27/23 0659 Shift [phone] 24 Hour Total [phone] 24 Hour Total INTAKE PO 320 320 [...] stable for disc (more content not included)... [facility] 06-25-2023 Note HNO ID: [id number] Author: Sultana Nolasco RN Service: Care Management [...] by: Per Department Practice Potential Transition Plans Alf Facility/Intermediate Care Facility Advance Directives Current Advance Directive: Health Care Power of Geriatric Assistant In Chart: Yes Up To Date and Valid: Yes Current Living Arrangements and Support Lives with: Alone Type of Residence: Private Residence (House) Support: Family members How do you manage to accomplish the following: Independent: Ambulation;Bathe/Shower;Dress;Meal s/Meal Prep;Going to the bathroom;Medication Management;Transportation to appointments/community Current Services/Equipment Current Post-Acute Service(s): None Discharge Planning Patient Goal(s): Be able to go home, General wellness, Increase strength Freeborn of Choice Explained: Freeborn of Choice Given: Yes Level of Care Discussed: Alf Facility Are you interested in bedside delivery [...] 25, 2023 TIME: 3:26 PM CONTACT #: [phone] [facility] 06-25-2023 Note HNO ID: [id number] Author: Leah Mcgraw APRN.CNP Service: General Surgery [...] be discharged to SNF - discussed that career center director will see him today and begin [...] - 06/25/23 0606/25/23699 - 06/26/23 0659 Shift 9622-0863 0446-1570 8326-3110 24 Hour Total 2984-3282 2538-4009 8471-1185 24 Hour Total INTAKE Shift Total OUTPUT [...] 25, 2023. SIGNAT (more content not included)... [facility] 06-25-2023 Note HNO ID: [id number] Author: Uche Vasquez MD Service: Orthopaedic Surgery [...] - PGY 3 6:51 AM 06/25/2023 Pager #[phone] INPATIENT ATTENDING: Mya Chaudhari MD, Urgent High-Risk Geriatric Patient Vulnerabilities: Age >85 and Impaired Mobility Diet: DIET REGULAR Code Status: Full Code Recommendations: Cognition: No Cognitive Impairment bCAM Score (Calc): Negative Delirium Screen Confusion Assessment Method (CAM - ICU Score): Negative Geriatric Consult (Age over 85 or impaired cognition):Consult to [facility] Palliative Care/Hospice: Consult not required Rehab/Therapy: PT/OT Recommendations: PT: Recommended Discharge Disposition: Subacute/SNF OT: Recommended Discharge Disposition: Subacute/SNF Swallow: Swallow Screening Result - Step 2: PASSED Swallow Screen - Patient Able To Swallow 3 Ounce Cup of Water Without Exhibiting Signs Of Aspiration Speech Recommendations: Speech: Speech Diet: Nutrition: Consult not required Nutrition Recommendations: MST: Total MST Score (Calculated): 0 Manager Of Business Operations: Pharmacy: Consult not needed Social Work: NA Anticipated Discharge Disposition: Alf Facility [facility] 06-24-2023 Note HNO ID: [id number] Author: Romeo Sanchez PA-C Service: General Surgery Author Type: Physician Collar Shaper Operator Type: Progress Notes Filed: 06/24/2023 8:41 AM Note Text: Trauma Surgery Progress Note SERVICE DATE: 06/24/2023 Trauma Service Pager: For questions or concerns Mon-Fri 6a-5p please page [phone]. After 5pm and on Weekends and Holidays, please page [phone] if in ICU or [phone] if on RNF. SUBJECTIVE: NAEON. Patient sitting [...] - 06/24/23 0606/24/23699 - 06/25/23 0659 Shift 2316-9708 6425-7975 2159-6500 24 Hour Total 2572-0176 4446-3583 7841-6620 24 Hour Total INTAKE IV 700 100 [...] PT/OT Dispo Planning: (more content not included)... [facility] 06-24-2023 Note HNO ID: [id number] Author: Mya Valdez MD Service: Orthopaedic Surgery [...] - PGY 3 5:53 AM 06/24/2023 Pager #[phone] INPATIENT ATTENDING: Mya Chaudhari MD, Urgent High-Risk Geriatric Patient Vulnerabilities: Age >85 and Impaired Mobility Diet: DIET REGULAR Code Status: Full Code Recommendations: Cognition: No Cognitive Impairment bCAM Score (Calc): Negative Delirium Screen Confusion Assessment Method (CAM - ICU Score): Negative Geriatric Consult (Age over 85 or impaired cognition):Consult to [facility] Palliative Care/Hospice: Consult not required Rehab/Therapy: PT/OT Recommendations: PT: OT: Swallow: Swallow Screening Result - Step 2: PASSED Swallow Screen - Patient Able To Swallow 3 Ounce Cup of Water Without Exhibiting Signs Of Aspiration Speech Recommendations: Speech: Speech Diet: Nutrition: Consult not required Nutrition Recommendations: MST: Total MST Score (Calculated): 0 Manager Of Business Operations: Pharmacy: Consult not needed Social Work: NA Anticipated Discharge Disposition: Home with Self Care Attending Note I personally saw and examined the patient. I reviewed the resident's note. I agree with the resident's assessment and plan unless otherwise noted. Signature: Mya Valdez MD Date: 06/24/2023 Time: 10:11 AM [facility] 06-23-2023 Note HNO ID: [id number] Author: Romeo Sanchez PA-C Service: General Surgery Author Type: Physician Collar Shaper Operator Type: Progress Notes Filed: 06/23/2023 12:10 PM Note Text: Trauma Surgery Progress Note SERVICE DATE: 06/23/2023 Trauma Service Pager: For questions or concerns Mon-Fri 6a-5p please page [phone]. After 5pm and on Weekends and Holidays, please page [phone] if in ICU or [phone] if on RNF. SUBJECTIVE: NAEON. Patient seen [...] 06/22/23699 - 06/23/2365806/23/23699 - 06/24/23 0659 Shift 1026-4319 9240-7306 0145-8149 24 Hour Total 7926-4391 0930-2580 3445-1550 24 Hour Total INTAKE PO 450 240 200 890 PO 450 240 200 890 IV 246 246 700 700 Volume (mL) (ceFAZolin iv piggyback 2 g in D5W (iso-osmotic) 100 mL (ANCEF)) 100 100 Volume (mL) (lactated ringers iv infusion) 246 246 Volume (mL) (lactated ringers iv infusion) 600 600 Shift Total 696 056 478 0994 700 700 OUTPUT Urine 150 250 400 [...] ATTENDING: Dr. Flores (more content not included)... [facility] 06-23-2023 Note HNO ID: [id number] Author: Sailaja Cao APRN.VETERINARY BACTERIOLOGIST Service: ? Author Type: Nurse Java Android Developer Type: Anesthesia Procedure Notes Filed: 06/23/2023 8:30 AM Note Text: ANESTHESIOLOGY PROCEDURE NOTE Airway General Information Procedure Start Time/Medication Administration: 06/23/2023 8:04 AM Patient location during procedure: OR Timeout Performed Pre-procedure: timeout performed Consent Obtained: Yes Patient identity confirmed: arm band, care swat team member and patient Staffing Anesthesiologist: Renaldo Mccurdy MD VETERINARY BACTERIOLOGIST: Sailaja Cao APRN.VETERINARY BACTERIOLOGIST Performed by: KYLIE Indications and Patient Condition Indications for airway management: anesthesia Preoxygenated: yes anesthesia circuit Patient position: sniffing Method: asleep Final Airway Details Final airway type: supraglottic airway Number of attempts at approach: 1 Final Supraglottic Airway: i-gel Size 5 Seal Adequate: yes Failed airway: no Unrecognized esophageal intubation: no Airway not difficult SIGNATURE: Sailaja Cao APRN.VETERINARY BACTERIOLOGIST PATIENT NAME: Deniz Kumar DATE: June 23, 2023 TIME: 8:29 AM CSN: [id number] [facility] 06-23-2023 Note HNO ID: [id number] Author: Uche Vasquez MD Service: Orthopaedic Surgery [...] - PGY 3 6:10 AM 06/23/2023 Pager #[phone] INPATIENT ATTENDING: Mya Chaudhari MD, Urgent High-Risk Geriatric Patient Vulnerabilities: Age >85 and Impaired Mobility Diet: DIET NPO Code Status: Full Code Recommendations: Cognition: No Cognitive Impairment bCAM Score (Calc): Negative Delirium Screen Confusion Assessment Method (CAM - ICU Score): Negative Geriatric Consult (Age over 85 or impaired cognition):Consult to [facility] Palliative Care/Hospice: Consult not required Rehab/Therapy: PT/OT Recommendations: PT: OT: Swallow: Swallow Screening Result - Step 2: PASSED Swallow Screen - Patient Able To Swallow 3 Ounce Cup of Water Without Exhibiting Signs Of Aspiration Speech Recommendations: Speech: Speech Diet: Nutrition: Consult not required Nutrition Recommendations: MST: Total MST Score (Calculated): 0 Manager Of Business Operations: Pharmacy: Consult not needed Social Work: NA Anticipated Discharge Disposition: Pending [facility] 06-22-2023 Note HNO ID: [id number] Author: Jon Almaraz MD Service: Orthopaedic Surgery [...] Almaraz MD Orthopaedic Surgery 06/22/2023 5:19 PM [facility] 06-22-2023 Note HNO ID: [id number] Author: Sina ([employer])Mya Service: ? Author Type: Layaway Clerk Type: Plan of Care Filed: 06/22/2023 4:02 PM Note Text: PHARMACY MEDICATION REVIEW Patient Name: Deniz Kumar : 1935 The following medications were updated within the LOCATION AND MEASUREMENT TECHNICIAN medication list: Medications ADDED to LOCATION AND MEASUREMENT TECHNICIAN medication list Medications CHANGED on LOCATION AND MEASUREMENT TECHNICIAN medication list Lactobacillus acidophilus (PROBIOTIC) 10 billion cell cap Patient Yes Yes Sig: Take 1 capsule by mouth. Pt. states he takes occasionally but not daily Melatonin 5 mg cap OTHER Yes Yes Sig: Take 5 mg by mouth daily at bedtime. Pt. states he takes 3mg at bedtime. Medications REMOVED from LOCATION AND MEASUREMENT TECHNICIAN medication list Additional comments: I was able to talk with pt. about his home medications. The pt. verified he takes the 8 medications on the LOCATION AND MEASUREMENT TECHNICIAN list. I have not added or removed any medications from the LOCATION AND MEASUREMENT TECHNICIAN list but I did note a change in how the pt. reports he takes 1 medication. 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 Required follow up actions for nursing: Medication history completed by Historian. No nursing follow up required. The below information represents the best possible medication history: Yes Medication history completed by: Layaway Clerk: Mya Andino ([employer]) Source of history: Patient: Reliability of source: Appears reliable, clearly identified: Medication name, Medication dose, Medication route, and Medication frequency and Pharmacy records: Epic e-script Medication nonadherence identified: No barriers noted Reconciliation completed: No, pharmacist not yet reviewed Patient interested in Bedside Delivery Services or using OP Pharmacy at discharge? Unable to assess Preferred outpatient pharmacy: [facility] [place] [address] [address] [facility] - [phone] e- [facility] [id number] - [place] [address] [address] [facility] [phone] e- [id number] - [place] [id number] - [address] [facility] [phone] Allergies: Clearasil Maximum S* Swelling Prior to [...] at bedtime Facility-Administered Medications: None Mya Andino (Managing Editor) phone [phone] 06/22/2023 [facility] 06-22-2023 Note HNO ID: [id number] Author: Lynda Holman PA-C Service: Neurosurgery Author Type: Physician Collar Shaper Operator Type: Plan of Care Filed: 06/22/2023 9:42 AM Note Text: Neurosurgery Plan of Care Note: Discussed with Dr. Matta. Boyd for RNF today. Lynda Holman PA-C Department of Neurosurgery Pager: [phone] 22, 2023 9:42 AM [facility] 06-22-2023 Note HNO ID: [id number] Author: Mariposa Cervantes MD Service: General Surgery Author Type: Physician Type: Progress Notes Filed: 06/22/2023 10:18 AM Note Text: Trauma Surgery Progress Note SERVICE DATE: 06/22/2023 Trauma Service Pager: For questions or concerns Mon-Fri 6a-5p please page [phone]. After 5pm and on Weekends and Holidays, please page [phone] if in ICU or [phone] if on RNF. SUBJECTIVE: Acute events overnight. [...] 0659 06/22/23 07 - 06/23/23 0659 Shift 1728-1772 2167-0560 0533-8894 24 Hour Total 2344-1093 1300-1791 5148-6095 24 Hour Total INTAKE IV 749 749 [...] Recommendations: MST: Total MST Score (Calculated): 0 Manager Of Business Operations: Pharmacy: Consult not needed Social Work: NA Anticipated Discharge Disposition: Pending Discussed (more content not included)... [facility] 04-01-2023 Miscellaneous Notes Patient has [...] Ilana Burr RN documented in this encounter [facility] 02-28-2023 Note HNO ID: [id number] Author: Luann Branch PA-C Service: ? Author Type: Physician Collar Shaper Operator Type: Progress Notes Filed: 03/01/2023 1:20 PM Note Text: FOLLOW UP VISIT - HERNIA NAME: Deniz Kumar [facility] NO.: [id number] DATE OF SERVICE: 02/28/2023 : 1935 REFERRING PHYSICIAN: Vadim Vega MD Deniz is a patient I am following with Dr. Ware for a recurrent umbilical hernia. Dr. Ware performed a repair of recurrent umbilical hernia on 02/21/23 at [facility]. The patient currently notes no major [...] agreed with the plan. Luann Branch PA-C [facility] 02-28-2023 Instructions Luann Branch PA-C - 02/28/2023 2:46 PM EDT The following instructions are important for you related to your office visit today with the [facility] General Surgeons. INSTRUCTIONS FOLLOWING YOUR RECENT HERNIA [...] you should contact our office immediately @ [phone] and ask to be transferred to the General Surgery department. documented in this encounter [facility] 02-28-2023 History of Present illness Narrative FOLLOW UP VISIT - HERNIA NAME: Deniz Kumar CLINIC NO.: [id number] DATE OF SERVICE: 02/28/2023 : 1935 REFERRING PHYSICIAN: Vadim Vega MD Deniz is a patient I am following with Dr. Ware for a recurrent umbilical hernia. Dr. Ware performed a repair of recurrent umbilical hernia on 02/21/23 at [facility]. The patient currently notes no major [...] Luann Branch PA-C documented in this encounter [facility] 02-15-2023 Note HNO ID: [id number] Author: Vadim Vega MD Service: ? Author Type: Physician Type: Progress Notes Filed: 02/15/2023 9:05 AM Note Text: This note was created using TextMasterriter. Subjective Deniz Kumar is a 87 year [...] - Worsening contro (more content not included)... [facility] 02-15-2023 History of Present illness Narrative This note was created using [employer]. Subjective Deniz Kumar is a 87 year [...] Vadim Vega MD documented in this encounter [facility] 01-25-2023 Note HNO ID: [id number] Author: Su Ware MD Service: ? Author [...] measles and mu (more content not included)... [facility] 01-25-2023 History of Present illness Narrative [...] for repair of recurrence umbilical hernia at [facility]. I spent a total of 21 minutes on the date of the service which included preparing to see the patient, [id number] patient care, obtaining oral medical history from the patient in this encounter, performing a medically appropriate examination, counseling and educating the patient/family/caregiver, and ordering and/or scheduling of medications/tests/procedures, and completing appropriate medical documentation. Su Ware MD documented in this encounter [facility] 01-25-2023 Nurse Note REVIEW OF SYSTEMS: [...] Fernanda Carmichael LPN documented in this encounter [facility] 01-04-2023 Note HNO ID: [id number] Author: Lynda Vernon PA-C Service: ? Author Type: Physician Collar Shaper Operator Type: Progress Notes Filed: 01/04/2023 9:26 AM Note Text: [facility] ESTABLISHED PATIENT CLINIC NOTE [...] and Family: Three times a week Attends Mu-Ism Services: Never Active Member of Clubs or [...] (POCT) Yellow WENDY (more content not included)... [facility] 01-04-2023 Note HNO ID: [id number] Author: Madison Camejo LPN Service: ? Author [...] the procedure well. Plan: Appointment with Lynda. [facility] 01-04-2023 History of Present illness Narrative Images from the original note were not included. [facility] [...] and Family: Three times a week Attends Mu-Ism Services: Never Active Member of Clubs or [...] Appointment with Lynda. documented in this encounter [facility] 09-25-2022 Note HNO ID: [id number] Author: Shannon Fuentes LPN Service: ? Author Type: ? Type: Progress Notes Filed: 09/25/2022 1:57 PM Note Text: Phone call placed [facility] apoke to Carol appt scheduled 09/25/2022 at 1:50, patient notified with visit. Shannon Fuentes LPN [facility] 09-25-2022 Note HNO ID: [id number] Author: Hyun Major APRN.PUMP PRESS OPERATOR Service: ? Author Type: Nurse Practitioner Type: Progress Notes Filed: 09/25/2022 1:57 PM Note Text: Subjective The history is provided by the patient. No diplomatic interpreter/translator was used. HPI Deniz Kumar is a [...] have confirmed and edited as necessary, the [facility] Review of Systems Constitutional: Negative for [...] tomorrow at [address] Rivera at [facility], who is his established opthamologist Diagnosis and treatment plan were discussed and questions were answered to the patient's satisfaction. Pt acknowledged understanding of concepts and follow up plan. Specific signs and symptoms that would indicate the need for higher level of care were discussed in detail warranting prompt ER evaluation. Hyun Major APRN.CNP [facility] 09-25-2022 Instructions Hyun Major APRN.CNP - 09/25/2022 1:38 PM EDT Appears to be subconjunctival hemorrhage - however would like to have you be re-evaluated tomorrow with Dr. Rivera Appointment at [facility] 09.26.2022 @ 1:50 PM Go to ER for any sudden loss of vision or severe vision changes. documented in this encounter [facility] 09-25-2022 History of Present illness Narrative Phone call placed [facility] apoke to Carol ramirez scheduled 09/25/2022 at 1:50, patient notified with visit. Shannon Fuentes LPN Images from the original note were not included. Subjective The history is provided by the patient. No diplomatic interpreter/translator was used. HPI Deniz Kumar is a [...] have confirmed and edited as necessary, the [facility] Review of Systems Constitutional: Negative for [...] tomorrow at [address] Rivera at [facility], who is his established opthamologist Diagnosis and treatment plan were discussed and questions were answered to the patient's satisfaction. Pt acknowledged understanding of concepts and follow up plan. Specific signs and symptoms that would indicate the need for higher level of care were discussed in detail warranting prompt ER evaluation. Hyun Major APRN.CNP documented in this encounter [facility] 08-31-2022 Note HNO ID: [id number] Author: Lynda Vernon PA-C Service: ? Author Type: Physician Collar Shaper Operator Type: Progress Notes Filed: 08/31/2022 10:49 AM Note Text: [facility] NEW CONSULT PATIENT CLINIC [...] and Family: Three times a week Attends Mu-Ism Services: Never Active Member of Clubs or [...] NO VARICOSE VEINS, (more content not included)... [facility] 08-31-2022 Note HNO ID: [id number] Author: Madison Camejo LPN Service: ? Author [...] the procedure well. Plan: Appointment with Lynda. 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 [facility] NEW CONSULT PATIENT CLINIC [...] and Family: Three times a week Attends Mu-Ism Services: Never Active Member of Clubs or [...] Appointment with Lynda. documented in this encounter [facility] 08-16-2022 Note HNO ID: [id number] Author: Vadim Vega MD Service: ? Author Type: Physician Type: Progress Notes Filed: 08/16/2022 8:46 AM Note Text: This note was created using Arideaster. Subjective Deniz Kumar is a 87 year [...] - CONSULT TO UROLOGY Vadim Vega MD [facility] 08-16-2022 Note HNO ID: [id number] Author: Vadim Vega MD Service: ? Author Type: Physician Type: Progress Notes Filed: 08/16/2022 8:46 AM Note Text: Deniz Kumar is a 87 year old male here for a Medicare Subsequent Annual Wellness Visit Health Risk Assessment In general, health is: Very good Concerns with balance:Several days Concerns with teeth or dentures:Not at all Concerns with sexual function:More than half the days [place] anxious, stressed, angry, irritable, lonely, isolated, or [...] recommended Shingrix at pharmacy - Depression screening [facility] 08-16-2022 Instructions Vadim Vega MD - 08/16/2022 8:40 AM EST Have you ever planned for future healthcare decisions with a power of insurance defense attorney, living will, or advance directives? Yes. [...] this for you. documented in this encounter [facility] 08-16-2022 History of Present illness Narrative This note was created using Arideaster. Subjective Deniz Kumar is a 87 year [...] with sexual function:More than half the days [place] anxious, stressed, angry, irritable, lonely, isolated, or [...] - Depression screening documented in this encounter [facility] 08-03-2022 Miscellaneous Notes Patient has been [...] Cary Andre LPN documented in this encounter [facility] 05-05-2022 Miscellaneous Notes Pt was notified of the results. Pt verbalized understanding. Angélica San MA Please notify that covid. Continue with plan of care as discussed during visit. documented in this encounter [facility] 05-04-2022 History of Present illness Narrative This note was created using Arideaster. Subjective Deniz Kumar is a 86 year [...] Susan Corado PA-C documented in this encounter [facility] 03-05-2022 History of Present illness Narrative [...] history is provided by the patient. No diplomatic interpreter/translator was used. Review of Systems Constitutional: Negative. Skin: Negative. Objective Physical Exam Exam conducted with a circuit design engineer present. Constitutional: Appearance: Normal appearance. Pulmonary: Effort: [...] okay with this care plan. Haylie Chin APRN.PUMP PRESS OPERATOR documented in this encounter [facility] 02-08-2022 Instructions Vadim Vega MD - 02/08/2022 9:26 AM EDT FASTING BLOOD WORK BEFORE August APPOINTMENT. COPY OF ADVANCED DIRECTIVE FOR YOUR RECORD. documented in this encounter [facility] 02-08-2022 History of Present illness Narrative This note was created using Now[employer] News. Subjective Deniz Kumar is a 86 year [...] Vadim Vega MD documented in this encounter [facility] 01-11-2022 Miscellaneous Notes Patient has been [...] Cee Alonzo Pss documented in this encounter [facility] 12-25-2021 History of Present illness Narrative [...] Su Ware MD documented in this encounter [facility] 10-01-2021 History of Present illness Narrative FOLLOW UP VISIT NAME: Deniz Echavarria Stacy [facility] NO.: [id number] DATE OF SERVICE: 09/29/2021 : 1935 REFERRING [...] Su Ware MD documented in this encounter [facility] documented as of this encounter (statuses as of 10/01/2021) [facility] History of Past illness Narrative* Problem Noted Date Resolved Date Dizziness and giddiness 08/22/2007 07/12/19 17 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 02/14/2007 07/12/2016 documented as of this encounter (statuses as of 12/30/2021) [facility] of [facility] illness Narrative* Problem Noted Date Resolved Date Dizziness and giddiness 08/22/2007 07/12/19 17 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 02/14/2007 07/12/2016 documented as of this encounter (statuses as of 01/11/2022) [facility] of [facility] Narrative* Problem Noted Date Resolved Date Dizziness and giddiness 08/22/2007 07/12/19 17 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 02/14/2007 07/12/2016 documented as of this encounter (statuses as of 02/08/2022) [facility] of [facility] illness Narrative* Problem Noted Date Resolved Date Dizziness and giddiness 08/22/2007 07/12/19 17 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 02/14/2007 07/12/2016 documented as of this encounter (statuses as of 03/05/2022) [address] History of Past illness Narrative* Problem Noted Date Resolved Date Dizziness and giddiness 08/22/2007 07/12/19 17 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 02/14/2007 07/12/2016 documented as of this encounter (statuses as of 05/04/2022) [address] History of Past illness Narrative* Problem Noted Date Resolved Date Dizziness and giddiness 08/22/2007 07/12/19 17 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 02/14/2007 07/12/2016 documented as of this encounter (statuses as of 05/05/2022) [address]2008 History of Past illness Narrative* Problem Noted Date Resolved Date Dizziness and giddiness 08/22/2007 07/12/19 17 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 02/14/2007 07/12/2016 documented as of this encounter (statuses as of 08/06/2022) [address] History of Past illness Narrative* Problem Noted Date Resolved Date Dizziness and giddiness 08/22/2007 07/12/19 17 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 02/14/2007 07/12/2016 documented as of this encounter (statuses as of 08/16/2022) [address]22-2008 History of Past illness Narrative* Problem Noted Date Resolved Date Dizziness and giddiness 08/22/2007 07/12/19 17 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 02/14/2007 07/12/2016 documented as of this encounter (statuses as of 08/31/2022) [facility]2008 History of Past illness Narrative* Problem Noted Date Resolved Date Dizziness and giddiness 08/22/2007 07/12/19 17 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 02/14/2007 07/12/2016 documented as of this encounter (statuses as of 09/25/2022) [address]22-2008 History of Past illness Narrative* Problem Noted Date Resolved Date Dizziness and giddiness 08/22/2007 07/12/19 17 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 02/14/2007 07/12/2016 documented as of this encounter (statuses as of 01/04/2023) [address]22-2008 History of Past illness Narrative* Problem Noted Date Diagnosed Date Resolved Date Dizziness and giddiness 08/22/200707/01 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 02/14/2007 07/12/2016 documented as of this encounter (statuses as of 01/27/2023) [address] History of Past illness Narrative* Problem Noted Date Diagnosed Date Resolved Date Dizziness and giddiness 08/22/200707/01 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 02/14/2007 07/12/2016 documented as of this encounter (statuses as of 02/15/2023) [address]-2008 History of Past illness Narrative* Problem Noted Date Diagnosed Date Resolved Date Dizziness and giddiness 08/22/200707/01 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 02/14/2007 07/12/2016 documented as of this encounter (statuses as of 03/01/2023) [address]-2008 History of Past illness Narrative* Problem Noted Date Diagnosed Date Resolved Date Dizziness and giddiness 08/22/200707/01 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 02/14/2007 07/12/2016 documented as of this encounter (statuses as of 04/02/2023) [facility] Diagnosis Status post umbilical hernia repair, follow-up exam- Primary Follow-up examination, following other surgery [facility] Diagnosis Extrusion of suture, initial encounter- Primary documented in this encounter [facility]* Diagnosis Benign prostatic hyperplasia with urinary obstruction Essential hypertension Unspecified essential hypertension documented in this encounter [facility]* Diagnosis Myalgia- Primary Mylagia and myositis, unspecified Need for vaccination Need for prophylactic vaccination and inoculation against unspecified single disease Essential hypertension Unspecified essential hypertension Hyperlipidemia, unspecified hyperlipidemia type documented in this encounter [facility]* Diagnosis Skin infection- Primary Unspecified local infection of skin and subcutaneous tissue documented in this encounter [facility] note* Diagnosis Exposure to COVID-19 virus- Primary [facility] Diagnosis Benign prostatic hyperplasia with urinary obstruction Essential hypertension Unspecified essential hypertension documented in this encounter [facility]* Diagnosis Medicare annual wellness visit, subsequent- Primary Routine general [facility] Thrombocytopenia, unspecified (HCC) Thrombocytopenia, unspecified Essential hypertension Unspecified essential hypertension Benign prostatic hyperplasia with urinary obstruction Hyperlipidemia, unspecified hyperlipidemia type Erectile dysfunction, unspecified erectile dysfunction type documented in this encounter [facility]* Diagnosis OAB (overactive bladder)- Primary Hypertonicity of bladder Erectile dysfunction, unspecified erectile dysfunction type Benign prostatic hyperplasia with urinary obstruction documented in this encounter [facility]* Diagnosis Eye problem- Primary Other eye problems documented in this encounter [facility]* Diagnosis OAB (overactive bladder)- Primary 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 documented in this encounter [facility]* Diagnosis Recurrent umbilical hernia- Primary Umbilical hernia without mention of obstruction or gangrene documented in this encounter [facility]* Diagnosis Benign prostatic hyperplasia with urinary obstruction- Primary Essential hypertension Unspecified essential hypertension Hyperlipidemia, unspecified hyperlipidemia type Hypoalbuminemia Other disorders of plasma protein metabolism Thrombocytopenia, unspecified (HCC) Thrombocytopenia, unspecified Recurrent umbilical hernia Umbilical hernia without mention of obstruction or gangrene documented in this encounter 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 Advance Directive(s) 09/21/2021 10:36 AM Documents on File Type Date Recorded 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 Advance Directive(s) 03/01/2023 9:16 AM Reason for Referral Specialty Diagnoses / Procedures Referred By Julian aparicio Referred To Contact Urology Diagnoses Benign prostatic hyperplasia with urinary obstruction Erectile dysfunction, unspecified erectile dysfunction type Procedures CONSULT TO UROLOGY OFFICE/OUTPATIENT NEW HIGH MDM 60-74 MINUTES Vadim Vega MD [address] [place] [address] Referral ID Status Reason Start Date Expiration Date Visits Requested Visits Authorized [id number] Authorized PCP Requested Referral 08/16/2022 08/16/2023 1 1 Additional Source Comments (unrecognized sect ion and content) No Status Records FoundNo Status Records FoundNo Status Records FoundNo Status Records Found INFORMATION SOURCE (unrecogn ized section and content) DATE CREATED AUTHOR AUTHOR'S ORGANIZ ATION 11/22/2018 [facility] DATE CREATED AUTHOR AUTHOR'S ORGANIZ ATION 07/17/2023 [facility] DATE CREATED AUTHOR AUTHOR'S ORGANIZ ATION 07/18/2023 [facility] Source Comments (unrecognize d section and content) In the event this informatio n is protected by the Federal Confidentiality of Alcohol and Drug Abuse Patient Records regulations: The Federal rules restrict any use of the information to criminally investigate or prosecute any alcohol or drug abuse patient.[facility] the event this information is protected by the Federal Confidentiality of Alcohol and Drug Abuse Patient Records regulations: The Federal rules restrict any use of the information to criminally investigate or prosecute any alcohol or drug abuse patient.[facility] the event this information is protected by the Federal Confidentiality of Alcohol and Drug Abuse Patient Records regulations: The Federal rules restrict any use of the information to criminally investigate or prosecute any alcohol or drug abuse patient.[facility] the event this information is protected by the Federal Confidentiality of Alcohol and Drug Abuse Patient Records regulations: The Federal rules restrict any use of the information to criminally investigate or prosecute any alcohol or drug abuse patient.[facility] the event this information is protected by the Federal Confidentiality of Alcohol and Drug Abuse Patient Records regulations: The Federal rules restrict any use of the information to criminally investigate or prosecute any alcohol or drug abuse patient.[facility] the event this information is protected by the Federal Confidentiality of Alcohol and Drug Abuse Patient Records regulations: The Federal rules restrict any use of the information to criminally investigate or prosecute any alcohol or drug abuse patient.[facility] the event this information is protected by the Federal Confidentiality of Alcohol and Drug Abuse Patient Records regulations: The Federal rules restrict any use of the information to criminally investigate or prosecute any alcohol or drug abuse patient.[facility] the event this information is protected by the Federal Confidentiality of Alcohol and Drug Abuse Patient Records regulations: The Federal rules restrict any use of the information to criminally investigate or prosecute any alcohol or drug abuse patient.[facility] the event this information is protected by the Federal Confidentiality of Alcohol and Drug Abuse Patient Records regulations: The Federal rules restrict any use of the information to criminally investigate or prosecute any alcohol or drug abuse patient.[facility] Hospital[facility] the event this information is protected by the Federal Confidentiality of Alcohol and Drug Abuse Patient Records regulations: The Federal rules restrict any use of the information to criminally investigate or prosecute any alcohol or drug abuse patient.[facility] Hospital[facility] the event this information is protected by the Federal Confidentiality of Alcohol and Drug Abuse Patient Records regulations: The Federal rules restrict any use of the information to criminally investigate or prosecute any alcohol or drug abuse patient.[facility] Hospital[facility] the event this information is protected by the Federal Confidentiality of Alcohol and Drug Abuse Patient Records regulations: The Federal rules restrict any use of the information to criminally investigate or prosecute any alcohol or drug abuse patient.[facility] Hospital[facility] the event this information is protected by the Federal Confidentiality of Alcohol and Drug Abuse Patient Records regulations: The Federal rules restrict any use of the information to criminally investigate or prosecute any alcohol or drug abuse patient.[facility] Hospital[facility] the event this information is protected by the Federal Confidentiality of Alcohol and Drug Abuse Patient Records regulations: The Federal rules restrict any use of the information to criminally investigate or prosecute any alcohol or drug abuse patient.[facility] Hospital[facility] the event this information is protected by the Federal Confidentiality of Alcohol and Drug Abuse Patient Records regulations: The Federal rules restrict any use of the information to criminally investigate or prosecute any alcohol or drug abuse patient.[facility] Hospital[facility] the event this information is protected by the Federal Confidentiality of Alcohol and Drug Abuse Patient Records regulations: The Federal rules restrict any use of the information to criminally investigate or prosecute any alcohol or drug abuse patient.[facility] Reason for Visit (unrecogniz ed section [...] MDM 60-74 MINUTES Vadim Vega MD [address] [place] [address] Referral ID Status Reason Start Date Expiration Date V isits Requested Visits Authorized [id number] Closed PCP Requested Referral 08/16/2022 08/16/2023 1 1 Reason Comments Eye Problem Pt reported (LT) eye irritation, onset AM denied pain, visual changes. 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 Relationship Specialty Start Date End Date Vadim Vega MD [facility] [place] [address] PCP - General Internal Medicine 07/23/16 Film Projector Operator Relationship Specialty Start Date End Date Vadim Vega MD [facility] [place] [address] PCP - General Internal Medicine 07/23/16 Film Projector Operator Relationship Specialty Start Date End Date Vadim Vega MD [facility] [place] [address] PCP - General Internal Medicine 07/23/16 Film Projector Operator Relationship Specialty Start Date End Date Vadim Vega MD [facility] [place] [address] PCP - General Internal Medicine 07/23/16 Film Projector Operator Relationship Specialty Start Date End Date Vadim Vega MD [address] [place] [id number] PCP - General Internal Medicine 07/23/16 Film Projector Operator Relationship Specialty Start Date End Date Vadim Vega MD [address] [place] [id number] PCP - General Internal Medicine 07/23/16 Film Projector Operator Relationship Specialty Start Date End Date Vadim Vega MD [address] [facility] [place] [address] PCP - General Internal Medicine 07/23/16 Film Projector Operator Relationship Specialty Start Date End Date Vadim Vega MD [address] [facility] [place] [address] PCP - General Internal Medicine 07/23/16 Film Projector Operator Relationship Specialty Start Date End Date Vadim Vega MD [address] [facility] [place] [address] PCP - General Internal Medicine 07/23/16 Film Projector Operator Relationship Specialty Start Date End Date Vadim Vega MD [address] [facility] [place] [address] PCP - General Internal Medicine 07/23/16 Film Projector Operator Relationship Specialty Start Date End Date Vadim Vega MD [address] [facility] [place] [address] PCP - General Internal Medicine 07/23/16 Film Projector Operator Relationship Specialty Start Date End Date Vadim Vega MD [address] [facility] [place] [address] PCP - General Internal Medicine 07/23/16 FOR [...] BE BASED ON THE PRIMARY CLINICAL RECORDS. [employer] [facility]. provides no warranty or guarantee of the accuracy or completeness of information in this document.
[2023-07-29 09:16] LABS: Anion Gap 5 (5-15); BUN 31 mg/dL (7-18); BUN/Creat Ratio 29.2 RATIO (10-20); Calcium,Total 9.9 mg/dL (8.5-10.1); Chloride 106 mmol/L (98-107); Creatinine, Serum 1.06 mg/dL (0.70-1.30); EST Glomerular Filtration Rate 70 mL/min (>60); Est Glom Filt Rate - Afr Amer 85 mL/min (>60); Glucose 90 mg/dL (74-106); Potassium 3.1 mmol/L (3.5-5.1); Sodium Level 140 mmol/L (136-145)
== END ==
LOC: OLS.SW 05:15
PROVIDERS: PCP Internal Medicine; Visit Provider Internal Medicine
DX: I10 Essential (primary) hypertension (principal)
CPT/HCPCS: 36415; 80048; 85027

== ENCOUNTER 2023-12-18 10:00 | Outpatient (RCR) | payer MEDICARE, SELFPAY ==
--- NOTE | 2023-10-23 10:55 | HP.PTEVAL ---
Patient's Visit Information Visit Information Visit Information: DENIZ CMKEON is a 88 year old M referred to Physical Therapy by Dr. Vadim Deras MD with a diagnosis of gait abnormality and leg weakness. Date of Evaluation: 10/23/23 Physical Therapist: Kendall Cotton, DPT, OCS, CSCS Visit Plan Frequency: 2x /Week Duration: 4-6 Weeks Plan: 2x/week for 4-6 weeks... given balance safety HO and reviewed today. 1. FW weight shift exercises to HEP 2. Funcitonal strength LE to HEP 3. gym strength LE aand posture to I work on gait, exit chair and steps emphasizing FW weight shift. Subjective Subjective: Had a fall at [facility] broke L ankle. Went to [facility] for surgery and describes ORIF. That ankle is not a problem and has been out of the cast a long time. Had rehab on the floor at [facility] and then wanted more therapy and had it at [facility] where he paid out of pocket. Got better. Has been home for a month plus now. 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 Was having some trouble with this prior to fall. The fall was possibly due to taking a statin and thighs were aching and wasn't walking as much. Was walking 60 minutes at [facility] marya got tired. Tripped in the parking lot when he got back. Hit head and got SDH/SAH. Kept trying to get stronger. That happened again the next week breaking ankle. Now needs to work on steadiness and balance and strength. Had one fall since got home walking in dark. Used to work out at but not lately. Got some home exercises from friend iram he has been doing but not helping like he thought. Works one day a week. Sleeping is normal for him but troublesome at times with achiness in legs. 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 Uses hiking stick out and about. Has Pain LBP: Pain Intensity (Out of 10): 0 Pain Intensity Range: 0 and 2 Objective Objective: Avoids weight shift and hence takes short steps especially when challenged, Can take full step with good speed on firm flat surface when cued. Romberg eo 30 sec adn ec slowly drifts BW without correction. Steps reciprocal but no FW weight shift and pulls up with rails and reaches down for next step. Trasnfers are I with UE bed and chair, Tends to keep weight BW in sit to stand and fall back toward chair especially with repeated movements. 3 LOB today when getting up form chair, and hustling during TUG all corrected by patient I. strength hips 3+ flexion abd, ext, 4 in knee ext adn flexion adn 4+ in ankles. able to heel raisebut needs to hold on for balance. reflexes 1/3 patella adnd achilles B Sensation LE WNL to gross light touch, appears neuropathic in inability to confidently utilize forefeet. coordination to reciprocal toe tap is easy and heel tap is more challenging. Balance/Special Test Scores Functional Gait Assessment Score: 22 % Disability: 26.6700 Lower Extremity Functional Score: 41 TUG Test Time Seconds: 14 30 Second Chair Rise Test Seconds: 8 Goals Goal 1:: I appropriate HEP adn gym for balance and strength Goal Time Frame: 4-6 Weeks Goal 2:: 11 on 30 sec sit to stand and <10 TUG without LOB Goal Time Frame: 4-6 Weeks Goal 3:: FGA 25/20 to diminish fall risk Goal Time Frame: 4-6 Weeks Goal 4:: Pt feel mobility and strengh 50% safer Goal Time Frame: 4-6 Weeks Goal 5:: Exit low chair without difficulty Goal Time Frame: 4-6 Weeks Rehabilitation Potential Physical Therapy Diagnosis: LE weakness and lack of weight shift effecting balance and mobility Rehabilitation Potential: Fair Anticipated Interventions Patient/Client Instruction: Educate patient on: Condition and Risk Factors For the Purpose of:: To improve muscle performance and motor function, To increase tolerance to activity/condition/position, To improve ability of physical actions for home/community/work/leisure and To improve gait and locomotor functions Therapeutic Exercise to Include: Strength training, Balance training, Flexibilty training and Gait and locomotor training For the Purpose of:: To improve muscle performance and motor function, To increase tolerance to activity/condition/position, To improve ability of physical actions for home/community/work/leisure, To improve gait and locomotor functions and To improve safety Text: Thank you for the opportunity to evaluate your patient. For Medicare and Medicare HMO plans, please review the plan of care and approve it. It will need to be FAXED BACK to us at [phone] for Medicare purposes. For Medicare only, by signing this I certify the plan of care. Please let me know if there are questions or concerns regarding this plan of care. Physician Signature: Date:
--- NOTE | 2023-12-18 10:26 | HP.PTDCSUM ---
Discharge Summary D/C summary: It has been my pleasure to treat DENIZ MCKEON referred by Dr. Vadim Deras MD, with the diagnosis of gait abnormality and leg weakness for a total of 9 visit(s). Discharge Date: 12/18/23 Please see the following information for a summary of their discharge status. Subjective Subjective: Been doing exercises 3x/week. going the right direction but slowly. Legs feel stronger. Still challenging to get from low chair but notices it is easier at times. Not working and started that way due to mobility, doing better with walking though and not going to go back. Pain LBP: Pain Intensity (Out of 10): 0 Overall Improvement % Improvement: 75 Objective Objective/Function: Walks fast well with VC but lacking confidence in FW weight shift. Exits chair without UE today but reverts to lacking FW weight shift on 30 SSTS test, still improving. Goals Goal 1:: I appropriate HEP adn gym for balance and strength Goal Progress: Goal Met Goal 2:: 11 on 30 sec sit to stand and <10 TUG without LOB Goal Progress: Progressing Goal 3:: FGA 25/20 to diminish fall risk Goal Progress: Progressing Goal 4:: Pt feel mobility and strengh 50% safer Goal Progress: Goal Met Goal 5:: Exit low chair without difficulty Goal Progress: Goal Met, no UE. Plan Plan: d/c to HEP D/C Information Discharge Comments: To neurologist tomorrow. d/c sentence: If there are questions or concerns regarding this patient's physical therapy, please feel free to call me at [phone]. Thank you for the referral of this patient. Sincerely, Kendall Cotton, DPT, OCS, CSCS Balance/Gait/Functional tests Balance/Special Test Scores Functional Gait Assessment Score: 24 % Disability: 20.0000 Lower Extremity Functional Score: 50 TUG Test Time Seconds: 14 Tug Test: <20 sec.=mostly independent 30 Second Chair Rise Test Seconds: 10 Improvement % Improvement: 75
== END 2023-12-18 19:00 | disposition home or self-care (01) ==
LOC: PT 10:00
PROVIDERS: PCP Internal Medicine; Referring Provider Internal Medicine; Visit Provider Internal Medicine
DX: R26.9 Unspecified abnormalities of gait and mobility (principal); R29.898 Other symptoms and signs involving the musculoskeletal system
CPT/HCPCS: 97110; 97161; 97530

== ENCOUNTER 2024-05-15 10:02 | Observation (INO) | payer MEDICARE, SELFPAY ==
[2024-05-15] VITALS (7 sets, daily range): BP systolic 144–169; BP diastolic 80–105; PULSE 63–87; RESP 15–21; TEMP 36.2–36.9; O2SAT 93–99; BMI 29.4; BMI 28.9
--- NOTE | 2024-05-15 10:53 | ED.RN ---
Patient denies having a fall this morning or having a fall recently.
--- NOTE | 2024-05-15 11:06 | EKG12_ITS ---
Test Reason : Blood Pressure : */* mmHG Vent. Rate : 81 BPM Atrial Rate : 81 BPM P-R Int : 166 ms QRS Dur : 92 ms QT Int : 394 ms P-R-T Axes : 40 -36 8 degrees QTcB Int : 457 ms Normal sinus rhythm Left axis deviation Abnormal ECG Confirmed by DELPHINE RICH, CARITO ([id number]), senior technical editor ADELSO QUINTANA ([id number]) on 05/19/2024 7:55:44 AM Referred By: Confirmed By: CARITO AKERS MD
--- NOTE | 2024-05-15 11:18 | RAD_ITS ---
EXAM: XR CHEST, 1 VIEW CLINICAL INDICATION: Weakness TECHNIQUE: Frontal view of the chest. COMPARISON: 12/10/2008. FINDINGS: LUNGS AND PLEURAL SPACES: Unremarkable. No consolidation or edema. No pneumothorax. No effusion. HEART: Unremarkable. Cardiac silhouette not enlarged. MEDIASTINUM: Central airways and mediastinal contour are unremarkable. BONES/JOINTS: Unremarkable. No acute fracture. SOFT TISSUES: Unremarkable. RAD/Chest 1 View (Portable) IMPRESSION: No radiographic evidence of acute cardiopulmonary disease and unchanged. Electronically Signed: Kelton Dwyer MD at 11:27 EST ,
[2024-05-15 11:22] LABS: Absolute Lymphocyte Count 0.59 X10^3/uL (0.83-4.51); Absolute Neutrophil Count 5.3 X10^3/uL (2.0-7.7); Basophil# 0.02 X10^3/uL; Basophil% 0.3 % (0-1); Hemoglobin 15.1 g/dL (13.0-16.5); Lymphocyte # 0.59 X10^3/ul (0.83-4.51); Lymphocyte % 7.8 % (19-41); Mean Corp Hgb Conc 33.6 g/dL (32-36); Mean Corpuscular Hgb 30.8 pg (27.0-32.0); Mean Corpuscular Volume 91.8 fL (80-94); Mean Platelet Vol. 12.1 fl (6.2-12.0); Monocyte# 1.48 X10^3/uL; Monocyte% 19.5 % (0-10); NRBC Flagged by Analyzer 0 % (0-5); Neutrophil # 5.33 X10^3/uL (2.7-7.7); POSITIVE DIFFERENTIAL YES; Platelet Count 102 K/mm3 (150-450); RBC Distribution Width CV 12.7 % (11.6-14.6); RBC Distribution Width SD 43.1 fl (35.1-43.9); White Blood Count 7.6 K/mm3 (4.4-11.0)
[2024-05-15 11:23] LABS: Mucous, Urine 0 SEEN /hpf (<or=2+); Squamous Epithelial Cells - UA 0 SEEN /hpf (0-5); White Blood Cells 0 SEEN /hpf (0-5)
[2024-05-15 11:25] LABS: Color, Urine Straw (Yellow); Glucose, Dipstick Normal (Normal); Ketone-Dipstick Negative (Negative); Leukocyte Esterase-Dipstick Negative /ul (Negative); Nitrite-Dipstick Negative (Negative); Occult Blood-Urine 25 /ul (Negative); Protein-Dipstick 30 mg/dl (Negative); Urine Bilirubin Dipstick Negative (Negative); Urine Clarity Clear (Clear); Urine Urobilinogen Normal (Normal)
[2024-05-15 11:32] LABS: Bacteria RARE /hpf (None Seen); Red Blood Cells-Urine 0-5 SEEN /hpf (0-5)
[2024-05-15 11:39] LABS: Anion Gap 6 (5-15); BUN 29 mg/dL (7-18); BUN/Creat Ratio 32.5 RATIO (10-20); Calcium,Total 9.1 mg/dL (8.5-10.1); Chloride 107 mmol/L (98-107); Creatinine, Serum 0.89 mg/dL (0.70-1.30); EST Glomerular Filtration Rate 86 mL/min (>60); Est Glom Filt Rate - Afr Amer 104 mL/min (>60); Estimated Creatinine Clearance 71.03 ml/min; Glucose 80 mg/dL (74-106); Potassium 3.4 mmol/L (3.5-5.1); Sodium Level 141 mmol/L (136-145); Troponin-I HS 69 pg/mL (3.0-78.0)
--- NOTE | 2024-05-15 12:01 | EDS_ITS ---
HPI History of Present Illness Chief Complaint: Weakness Narrative Narrative: Chief complaint and HPI: Weakness. 88-year-old male with history of BPH, HTN, and recent spinal stenosis presents for evaluation of weakness. Patient states that he has been having intermittent back pain. He states that he received a MRI for leg weakness a couple weeks ago and was diagnosed with spinal stenosis. Patient states that he has been at his normal state of health until this morning when he woke up with generalized weakness. He states that he had difficulty ambulating. Per triage note states that the patient fell getting out of bed however he declines this to me. He denies any fall or trauma. Denies any change or worsening of back pain. He states at baseline he has urinary incontinence in which states that he drinks little secondary to this. Denies numbness down the legs but states at baseline he has a little bit of numbness in his bilateral feet. Denies urinary retention, stool incontinence or retention, saddle anesthesia. He denies any fever, chills, shortness of breath, chest pain, abdominal pain, nausea, vomiting, diarrhea, constipation, dysuria. Denies any neurological deficit such as dysarthria, aphasia, facial asymmetry, focal weakness. Review of systems: See HPI Medications: As listed on the chart Allergies: As listed on the chart PFSH: Per chart Vital signs: As listed on the chart. Reviewed. Physical exam: Gen: A&O x3, NAD Head: Normocephalic, atraumatic Eyes: No sclera icterus, conjunctiva clear, PERRL, EOMI ENT: Mildly dry mucous membranes Neck: Trachea midline, No JVD, full range of motion CV: RRR, no murmurs, no peripheral edema Resp: Lungs CTA BL, no w/r/c GI: Abd soft, non-distended, non-tender, no r/r/g Musc: Full ROM, no deformity, strength +5/5 in all extremities, DP/PT pulses plus 2 out of 4 bilaterally, no midline spinal tenderness, no bony step-offs Skin: Warm, dry, intact Neuro: Alert, oriented, grossly intact, sensation intact, no focal deficits Psych: Cooperative, appropriate mood and affect [facility] Medical History (Updated 05/15/24 @ 10:49 by Didi Ivey) Spinal stenosis TIA (transient ischemic attack) Diverticulosis Nonallergic rhinitis BPH (benign prostatic hyperplasia) Hypercholesterolemia Hypertension Home Medications ?Medication ?Instructions ?Recorded ?Last Taken ?Type doxazosin 1 mg tablet 1 mg PO DAILY BP 06/21/23 06/20/23 History finasteride 5 mg tablet 5 mg PO DAILY Bladder 06/21/23 06/21/23 History melatonin 3 mg capsule 3 mg PO DAILY Sleep 06/21/23 06/20/23 History Lactobacillus acidophilus 250 500 mmu cells PO DAILY Probiotic 06/27/23 Unknown History million cell capsule (Probiotic Acidophilus) acetaminophen 500 mg capsule 1,000 mg PO Q6H PRN pain 06/27/23 Unknown History sennosides 8.6 mg capsule (senna) 17.2 mg PO QHS Constipation 06/27/23 Unknown History calcium 500 mg (as 0.5 tab PO BIDCM #0 tabs 07/16/23 Unknown Rx carbonate)-vitamin D3 5 mcg (200 unit) tablet (Oyster Shell Calcium-Vitamin D3) chlorthalidone 50 mg tablet 25 mg (1/2 x 50 mg) PO DAILY #0 07/16/23 Unknown Rx tabs clonidine HCl 0.1 mg tablet 0.1 mg PO Q6H PRN PRN SYS>165 07/16/23 Unknown Rx DIAST>85 #0 tabs losartan 100 mg tablet 100 mg PO DAILY #0 tabs 07/16/23 Unknown Rx menthol 2 % topical gel (Blue Gel) 1 applic topical TID PRN PRN Pain 07/16/23 Unknown Rx Score 1-10 #0 grams multivitamin 1 tab PO BREAKFAST #0 tabs 07/16/23 Unknown Rx polyethylene glycol 3350 17 gram 17 g PO DAILY #0 ea 07/16/23 Unknown Rx oral powder packet aspirin 81 mg capsule 81 mg PO DAILY 05/15/24 Unknown History lisinopril 40 mg tablet 40 mg PO DAILY 05/15/24 Unknown History ofloxacin 0.3 % eye drops 1 drp RIGHT EYE 4X/DAY 05/15/24 Unknown History tolterodine 1 mg tablet 1 mg PO BID 05/15/24 Unknown History Allergy/AdvReac Type Severity Reaction Status Date / Time salicylic acid Allergy Swelling Verified 05/15/24 13:10 Family History (Updated 06/28/23 @ 16:[address] Mirian Farris DO) Father Cancer Prostate cancer Mother Cancer Liver cancer Sister Hypertension Hyperlipidemia Surgical History (Updated 07/26/23 @ 00:17 by Shelbie Cristina) History of open reduction and internal fixation (ORIF) procedure Social History (Updated 06/28/23 @ 16:[address] Mirian Farris DO) household members: none housing: other details: Mobile home pets and animals: Yes (Dog) Smoking Status: Former smoker pack-years: 3 alcohol intake: current alcohol intake frequency: a few times a month Alcohol type: beer details: 1 beer a week. substance use type: marijuana and other details: Has used marijuana in the past but not currently. EXAM Physical Exam Const Vital Signs: 05/15/24 10:03 05/15/24 10:55 05/15/24 12:02 Temperature 97.1 F L Temperature Source Temporal Pulse Rate 87 84 Respiratory Rate 15 17 Respiratory Effort Normal Non-Labored Respiratory Pattern Normal Blood Pressure 153/103 H 146/105 H Blood Pressure Mean 119 118 Pulse Ox 99 Oxygen Delivery Method Room Air 05/15/24 13:09 Temperature 98.2 F Temperature Source Pulse Rate 87 Respiratory Rate 21 H Respiratory Effort Respiratory Pattern Blood Pressure 156/100 H Blood Pressure Mean 118 Pulse Ox 93 Oxygen Delivery Method MDM MDM MDM Narrative Medical decision making narrative: 88-year-old male with history of BPH, HTN, and recent spinal stenosis presents for evaluation of weakness. See HPI and physical exam. Differential diagnosis includes but is not limited to UTI, pneumonia, electrolyte abnormality, dehydration, ACS worsening spinal stenosis. Patient denies any recent trauma or worsening back pain. There is nothing to suggest any infectious etiology. There is no neurologic findings to suggest an acute cauda equina syndrome. At this point I do not feel any emergent imaging such as x-rays or MRI are warranted at this time. EKG and chest x-ray reviewed. See below. CBC without leukocytosis or anemia. BMP relatively unremarkable. Patient's potassium is mildly decreased at 3.4. Will get magnesium level. Magnesium level unremarkable. UA negative for UTI. Troponin is 69. Will get delta. Delta troponin is 96. Patient is not having any chest pain. Repeat EKG was obtained and again no acute ischemic changes. Patient's heart score is in the moderate category. Given his worsening weakness today as well as elevated troponin, I do think that the patient would benefit for further cardiac workup. and patient were updated of all the results and agreed to the plan. I do think patient would also benefit from PT/OT evaluation. Hospital service was contacted and patient was discussed with Dr. Arce. He agrees with admission for observation. EKG: Interpreted by me/EM physician: EKG shows normal sinus rhythm without any acute ischemic changes. Heart rate 81. Repeat EKG shows normal sinus rhythm without any acute ischemic changes. Heart rate 87. Diagnostic: Interpreted by me/EM physician: Chest x-ray without pneumonia, effusion, cardiomegaly, pneumothorax Impression: 1. Generalized weakness 2. Elevated troponin Lab Data Labs: Laboratory Results - last 24 hr 05/15/24 05/15/24 05/15/24 10:19 10:35 12:25 WBC 7.6 RBC 4.90 Hgb 15.1 Hct 45.0 MCV 91.8 MCH 30.8 MCHC 33.6 RDW Std Deviation 43.1 RDW Coeff of Bayron 12.7 Plt Count 102 L MPV 12.1 H Immature Gran % (Auto) 2.400 H Neut % (Auto) 70.0 Lymph % (Auto) 7.8 L Jay % (Auto) 19.5 H Eos % (Auto) 0.0 Baso % (Auto) 0.3 Absolute Neuts (auto) 5.3 Absolute Lymphs (auto) 0.59 L Nucleated RBC % 0 Sodium 141 Potassium 3.4 L Chloride 107 Carbon Dioxide 28.0 Anion Gap 6 BUN 29 H Creatinine 0.89 Estim Creat Clear Calc 71.03 Est GFR (MDRD) Af Amer 104 Est GFR (MDRD) Non-Af 86 BUN/Creatinine Ratio 32.5 H Glucose 80 Calcium 9.1 Magnesium 1.8 Troponin I High Sens 69 96 H Urine Color Straw Urine Clarity Clear Urine pH 7.0 Ur Specific [place] 1.010 Urine Protein 30 H Urine Glucose (UA) Normal Urine Ketones Negative Urine Occult Blood 25 H Urine Nitrite Negative Urine Bilirubin Negative Urine Urobilinogen Normal Ur Leukocyte Esterase Negative Urine RBC 0-5 SEEN Urine WBC 0 SEEN Ur Squamous Epith Cells 0 SEEN Urine Bacteria RARE Urine Mucus 0 SEEN Radiography Diagnostic Testing: Clinical Impression(s) from Imaging Studies Chest X-Ray 05/15/24 11:18 IMPRESSION: No radiographic evidence of acute cardiopulmonary disease and unchanged. Electronically Signed: Kelton Dwyer MD at 11:27 EST , Discharge Plan Disposition Disposition: Acute Care Hospital [facility] Discharge Date/Time: 05/15/24 14:39
[2024-05-15 12:48] LABS: Magnesium 1.8 mg/dL (1.6-2.6); Troponin-I HS 96 pg/mL (3.0-78.0)
--- NOTE | 2024-05-15 13:31 | PCM.HP.STD ---
HPI - General General Date of Admission: 05/15/24 Date of Service: 05/15/24 Chief Complaint: Worsening leg weakness and difficulty with ambulation HPI Narrative DENIZ MCKEON, is a 88 M who presented to [facility] ED on 05/15/2024 with worsening leg weakness and difficulty with ambulation. Patient has had intermittent back pain over the past several months. He apparently saw neurology for this about 2 weeks ago and had an MRI of the lumbar spine that showed spinal stenosis. I was unable to view these records. Patient states no intervention was planned at this point and he was going to follow-up with neurology again in May. This morning upon awakening he had significant difficulty with going from sitting to standing and ambulating. He denies any recent falls or trauma. He denies significant lower leg weakness but rather feels like his lower body is going to give out when he stands. Denies any significant low back pain or discomfort. Denies any bowel incontinence or numbness/tingling in perineal area. Has known history of bladder incontinence that is stable from previous. Because of this weakness, he came into the ED for further evaluation. On arrival to the ED, patient was hemodynamically stable. Labs were largely unremarkable. However, he did have an elevated troponin of 69. No EKG changes noted. Repeat troponin 2 hours later increased to 96. Another EKG was obtained and was stable from previous. Patient denied any chest pain or shortness of breath. Nursing staff attempted to ambulate the patient with the assistance of his wheeled walker but he had significant difficulty with any ambulation at all. Given the difficulty with ambulation and elevated troponins, hospitalist was contacted for admission. I saw the patient at bedside in the ED, was present. Patient was sitting up comfortably in bed and in no acute distress. His blood pressure has been running high while in the ED and patient notes that he has been told by his PCP that his blood pressure has been high at his last few visits. Patient does note that he has not been taking his blood pressure medications regularly for an unclear reason. Has never had an echocardiogram done. No other cardiac history noted. Patient denies any other acute concerns currently. Will be admitted for further management. [facility] Medical History (Updated 05/15/24 @ 17:[address] Jon Arce, DO) Spinal stenosis TIA (transient ischemic attack) Diverticulosis Nonallergic rhinitis BPH (benign prostatic hyperplasia) Hypercholesterolemia Hypertension Home Medications ?Medication ?Instructions ?Recorded ?Last Taken ?Type doxazosin 1 mg tablet 1 mg PO DAILY BP 06/21/23 06/20/23 History finasteride 5 mg tablet 5 mg PO DAILY Bladder 06/21/23 06/21/23 History melatonin 3 mg capsule 3 mg PO DAILY Sleep 06/21/23 05/14/24 History Lactobacillus acidophilus 250 500 mmu cells PO DAILY Probiotic 06/27/23 Unknown History million cell capsule (Probiotic Acidophilus) acetaminophen 500 mg capsule 1,000 mg PO Q6H PRN pain 06/27/23 Unknown History calcium 500 mg (as 0.5 tab PO BIDCM #0 tabs 07/16/23 Unknown Rx carbonate)-vitamin D3 5 mcg (200 unit) tablet (Oyster Shell Calcium-Vitamin D3) chlorthalidone 50 mg tablet 25 mg (1/2 x 50 mg) PO DAILY #0 07/16/23 Unknown Rx tabs clonidine HCl 0.1 mg tablet 0.1 mg PO Q6H PRN PRN SYS>165 07/16/23 Unknown Rx DIAST>85 #0 tabs losartan 100 mg tablet 100 mg PO DAILY #0 tabs 07/16/23 Unknown Rx menthol 2 % topical gel (Blue Gel) 1 applic topical TID PRN PRN Pain 07/16/23 Unknown Rx Score 1-10 #0 grams multivitamin 1 tab PO BREAKFAST #0 tabs 07/16/23 Unknown Rx aspirin 81 mg capsule 81 mg PO DAILY 05/15/24 Unknown History lisinopril 40 mg tablet 40 mg PO DAILY 05/15/24 Unknown History ofloxacin 0.3 % eye drops 1 drp RIGHT EYE 4X/DAY 05/15/24 Unknown History tolterodine 1 mg tablet 1 mg PO BID 05/15/24 Unknown History Allergy/AdvReac Type Severity Reaction Status Date / Time salicylic acid Allergy Swelling Verified 05/15/24 13:10 Family History (Updated 06/28/23 @ 16:[address] Mirian Farris DO) Father Cancer Prostate cancer Mother Cancer Liver cancer Sister Hypertension Hyperlipidemia Surgical History (Updated 07/26/23 @ 00:17 by Shelbie Cristina) History of open reduction and internal fixation (ORIF) procedure Social History (Updated 06/28/23 @ 16:[address] Tracie Sementi, DO) household members: none housing: other details: Mobile home pets and animals: Yes (Dog) Smoking Status: Former smoker pack-years: 3 alcohol intake: current alcohol intake frequency: a few times a month Alcohol type: beer details: 1 beer a week. substance use type: marijuana and other details: Has used marijuana in the past but not currently. ROS Constitutional Constitutional: Reports weakness; Denies chills, fatigue or fever(s) Eyes Eyes: Denies change in vision Cardiovascular Cardiovascular: Denies chest pain or edema Respiratory/Chest Respiratory/Chest: Denies cough, shortness of breath at rest, shortness of breath with exertion or wheezing Gastrointestinal Gastrointestinal: Denies abdominal pain Genitourinary Genitourinary: Denies dysuria Musculoskeletal Musculoskeletal: Reports back pain; Denies arthralgias or myalgias Neurologic Neurologic: Reports abnormal gait; Denies dizziness, focal weakness, headache(s), numbness or paresthesias Vital Signs Vital Signs Vital Signs: 05/15/24 10:03 05/15/24 10:55 05/15/24 12:02 Temperature 97.1 F L Temperature Source Temporal Pulse Rate 87 84 Respiratory Rate 15 17 Respiratory Effort Normal Non-Labored Respiratory Pattern Normal Blood Pressure 153/103 H 146/105 H Blood Pressure Mean 119 118 Pulse Ox 99 Oxygen Delivery Method Room Air 05/15/24 13:09 Temperature 98.2 F Temperature Source Pulse Rate 87 Respiratory Rate 21 H Respiratory Effort Respiratory Pattern Blood Pressure 156/100 H Blood Pressure Mean 118 Pulse Ox 93 Oxygen Delivery Method Weight Weight: 98.293 kg Body Mass Index (BMI) 29.4 Physical Exam Const alert, oriented x3, no apparent distress and average body habitus Constitutional Narrative: Pleasant elderly male, sitting up comfortably in bed, conversing normally, in no acute distress. General Appearance: cooperative and comfortable HEENT normocephalic, head/scalp atraumatic, hearing grossly normal bilaterally, nasal mucous membranes and turbinates normal and moist oral mucous membranes Eyes PERRL, EOMs intact bilaterally and conjunctivae normal Neck full ROM Chest inspection of chest normal Resp normal respiratory effort, normal air movement, no use of accessory muscles and clear to auscultation bilaterally Cardio regular rate, regular rhythm, no murmurs and peripheral pulses 2+ throughout GI normal to inspection, nondistended, normoactive bowel sounds, soft to palpation, non-tender and non-distended Back/Spine normal ROM Extremity normal to inspection and no pedal edema Skin no rashes or lesions noted Neuro moves all extremities and no focal motor deficits Neuro Narrative: Has +5/5 strength in both legs with lifting them off the exam table while laying down. Did not attempt ambulation with him. Speech: speech normal Psych mental status grossly normal Results Lab / Micro Data 05/15/24 10:19 05/15/24 10:19 Labs: Laboratory Results - last 24 hr 05/15/24 10:19: WBC 7.6, RBC 4.90, Hgb 15.1, Hct 45.0, MCV 91.8, MCH 30.8, MCHC 33.6, RDW Std Deviation 43.1, RDW Coeff of Bayron 12.7, Plt Count 102 L, MPV 12.1 H, Immature Gran % (Auto) 2.400 H, Neut % (Auto) 70.0, Lymph % (Auto) 7.8 L, [place] % (Auto) 19.5 H, Eos % (Auto) 0.0, Baso % (Auto) 0.3, Absolute Neuts (auto) 5.3, Absolute Lymphs (auto) 0.59 L, Nucleated RBC % 0, Sodium 141, Potassium 3.4 L, Chloride 107, Carbon Dioxide 28.0, Anion Gap 6, BUN 29 H, Creatinine 0.89, Estim Creat Clear Calc 71.03, Est GFR (MDRD) Af Amer 104, Est GFR (MDRD) Non-Af 86, BUN/Creatinine Ratio 32.5 H, Glucose 80, Calcium 9.1, Troponin I High Sens 69 05/15/24 10:35: Urine Color Straw, Urine Clarity Clear, Urine pH 7.0, Ur Specific [place] 1.010, Urine Protein 30 H, Urine Glucose (UA) Normal, Urine Ketones Negative, Urine Occult Blood 25 H, Urine Nitrite Negative, Urine Bilirubin Negative, Urine Urobilinogen Normal, Ur Leukocyte Esterase Negative, Urine RBC 0-5 SEEN, Urine WBC 0 SEEN, Ur Squamous Epith Cells 0 SEEN, Urine Bacteria RARE, Urine Mucus 0 SEEN 05/15/24 12:25: Magnesium 1.8, Troponin I High Sens 96 H Imaging Radiology Impression Chest X-Ray 05/15/24 11:18 IMPRESSION: No radiographic evidence of acute cardiopulmonary disease and unchanged. Electronically Signed: Kelton Dwyer MD at 11:27 EST , Assessment & Plan Assessment/Plan (1) Debility: (2) Elevated troponin: PLAN: Plan Patient is an 88-year-old male who presented [facility] ED on 05/15/2024 with worsening leg weakness and difficulty with ambulation. 1. Acute on chronic debility and difficulty with ambulation; reported history of lumbar spinal stenosis ? Admit under observation status to PCU. PT/OT/case management consulted. Lumbar spine x-ray on admit here showed no acute osseous abnormality of L-spine with mild degenerative disease. Reportedly had MRI L-spine done at outside facility 2 weeks ago that showed lumbar spinal stenosis. Has +5/5 in lower extremities on exam but is not ambulating well for an unclear reason. Does not have much back pain at all. Will await therapy recommendations after they work with him tomorrow. 2. Elevated troponins ? Troponin trend 69 > 96 > 97. EKG x 2 with normal sinus rhythm and no ischemic changes. No chest pain reported. Has had somewhat high blood pressure since arrival here and reports high blood pressures in the office with PCP on last few visits, suspect mild troponin elevation may be due to this. Has never had an echocardiogram before so we will obtain echo while here for further assessment. 3. Hypertension ? On home lisinopril 40 mg daily and doxazosin 1 mg daily. Blood pressures in the ED have been in the 140s over 160s systolic with a few readings in the low 100s diastolic. Continue home lisinopril and doxazosin and will add IV hydralazine as needed for SBP greater than 170. Has chlorthalidone, clonidine and losartan listed on home medication list, is unclear if/when he took these medications in the past. Will likely need close follow-up with PCP for further medication adjustments. 4. Urinary incontinence ? Reports urinary continence for the last 3 to 4 years. Stable. Continue home tolterodine. 5. BPH with obstructive symptoms ? Stable. Continue home finasteride. DVT prophylaxis: Lovenox CODE STATUS: Full code, verified Expected disposition: TBD Total clinical time spent by myself addressing the patient's medical issues, reviewing all the data, and collaborating with patient's care team: 55 minutes. Charges/Coding Visit Charges Inpatient E&M: 24995 Init Hosp L2
--- NOTE | 2024-05-15 13:36 | EKG12_ITS ---
Test Reason : REPEAT Blood Pressure : */* mmHG Vent. Rate : 87 BPM Atrial Rate : 87 BPM P-R Int : 174 ms QRS Dur : 94 ms QT Int : 382 ms P-R-T Axes : 28 -38 7 degrees QTcB Int : 459 ms Normal sinus rhythm Left axis deviation Abnormal ECG Confirmed by DELPHINE RICH, CARITO ([id number]), technical editor ADELSO QUINTANA ([id number]) on 05/19/2024 7:55:55 AM Referred By: Confirmed By: CARITO AKERS MD
--- NOTE | 2024-05-15 14:20 | RAD_ITS ---
EXAM: XR LUMBOSACRAL SPINE, 2 OR 3 VIEWS CLINICAL INDICATION: worsening low back pain w/ weakness TECHNIQUE: Frontal and lateral views of the lumbar spine and sacrum. COMPARISON: No relevant prior studies available. FINDINGS: VERTEBRAE: No suspicious acute fractures of the lumbar spine. Minimal degenerative anterolisthesis of L4 on L5. Moderate asymmetric L4-L5 degenerative facet arthropathy. No spondylolisthesis. Preservation of the normal lumbar lordosis. DISC SPACES: Moderate L4-L5 disc space height narrowing. Mild L5-S1 disc space height narrowing with degenerative vacuum phenomenon. Normal remaining lumbar disc space heights. GASTROINTESTINAL TRACT: Unremarkable as visualized. Included bowel gas pattern is non-obstructive. OTHERS: Calcified plaques along the tortuous abdominal aorta and calcified plaques in both common iliac arteries. RAD/Lumbar Spine 2 or 3 Views IMPRESSION: 1. No acute osseous abnormality of the lumbar spine. 2. Minimal degenerative anterolisthesis of L4 on L5, moderate L4-L5 disc space height narrowing and moderate asymmetric L4-L5 degenerative facet arthropathy. 3. Mild L5-S1 disc space height narrowing with degenerative vacuum phenomenon. Electronically Signed: Kelton Dwyer MD at 14:51 EST ,
[2024-05-15] MEDS: Metoprolol Tartrate 5 MG/5 ML Vial IV (14:22)
--- NOTE | 2024-05-15 14:57 | CASEMGMT ---
Care Management Face to Face with patient for initial transition planning/care coordination assessment.? This appeals writer introduced self and role at [facility]. Patient lying in bed, alert and oriented. Patient willing to participate in assessment and is able to answer all questions appropriately.?Patients sister was at bedside, permission given for her to participate in assessment. ?Care providers, pharmacy, and demographics verified. Admitting Diagnosis: Weakness Other diagnosis history: Spinal stenosis, TIA, diverticulosis PCP: Dr. Deras Specialists: Dr. Urbina Preferred [facility] Insurance: [employer] Prescription Benefit:? Yes Living Will/HPOA: Has both HCPOA and Living Will, copies made and placed in medical record LNOK: Gerri Barnes, Living Arrangements: ?Lives on the grounds of [employer] 2 stairs with railing, patient states he is able to navigate Transportation: Patient drives and has reliable transportation DME/HHC: ?Has a hiking stick, walker, grab bars by tub and toiled, and blood pressure cuff. ?Patient does not have a life alert bracelet, states he is able to get a free but hasn?t ordered it yet.? Community Resources: Used to use Meals on Wheels.? May be interested again.? Behavioral Health History:? None Patient goals: Patient wishes to discharge home.? Patient states he has no further needs or concerns at this time. Disposition Plan: CM to follow for discharge planning needs that may arise. Monalisa Jc, CAN DRAGGER, CERTIFICATION AND SELECTION SPECIALIST
--- NOTE | 2024-05-15 15:11 | ECHOD_ITS ---
Reason For Study: HTN Procedure This was a 2D Doppler, Color Flow transthoracic echocardiogram. Exam performed portable in patient room. Left Ventricle Normal LV size. The estimated ejection fraction is 55 %. Diastolic function is indeterminate. No regional wall motion abnormalities noted. Right Ventricle Normal RV size. Normal systolic function. Atria The left and right atria are normal. No doppler evidence for ASD. Mitral Valve There is no mitral valve stenosis. Trivial mitral valve insufficiency. Tricuspid Valve There is no tricuspid stenosis. Unable to estimate RV systolic pressure due to inadequate jet, pulmonary artery pressure probably normal. Aortic Valve Trisinus/trileaflet aortic valve. There is no aortic stenosis. Mild (1+) aortic valve insufficiency. Pulmonic Valve There is no pulmonic valvular stenosis. No pulmonic valve insufficiency. Great Vessels Normal aortic root. Pericardium/Pleural No pericardial effusion. Medication Performed a rapid injection of agitated mix of 9 cc saline and 1cc air to assess for atrial septal defect. MMode/2D Measurements & Calculations RVDd: 3.0 cm Ao root diam: 4.1 cm LAV(MOD-bp): 76.0 ml LAV(MOD-bp) Indexed: 34.5 ml/m2 LAV(MOD-sp2): 88.7 ml LAV(MOD-sp4): 61.5 ml SV(MOD-sp4): 58.6 ml SV(sp4-el): 60.6 ml LVAd ap4: 33.6 cm2 LVLd ap4: 9.4 cm SI(MOD-sp4): 26.6 ml/m2 EDV(MOD-sp4): 101.7 ml EDV(sp4-el): 102.0 ml LVAs ap4: 19.9 cm2 LVLs ap4: 8.1 cm ESV(MOD-sp4): 43.1 ml ESV(sp4-el): 41.4 ml EF(MOD-sp4): 57.6 % EF(sp4-el): 59.4 % LA A4 area: 22.3 cm2 RA A4 area: 13.9 cm2 Time Measurements MV dec time: 0.31 sec Doppler Measurements & Calculations MV E max karel: 32.0 cm/sec Lat Peak E' Karel: 8.1 cm/sec Med Peak E' Karel: 6.6 cm/sec MV A max karel: 71.2 cm/sec E/E' lat: 4.0 E/E' med: 4.9 MV E/A: 0.45 MV V2 max: 86.8 cm/sec MV dec slope: 104.9 cm/sec2 Ao V2 max: 112.2 cm/sec MV max P.0 mmHg Ao max P.0 mmHg MV V2 mean: 39.0 cm/sec Ao V2 mean: 70.8 cm/sec MV mean P.72 mmHg Ao mean P.5 mmHg MV V2 VTI: 21.7 cm Ao V2 VTI: 25.1 cm AV (velocity ratio): 0.85 AI max karel: 547.0 cm/sec LV V1 max: 95.7 cm/sec AI max P.7 mmHg LV V1 max P.7 mmHg AI dec slope: 255.6 cm/sec2 LV V1 mean P.2 mmHg AI P1/2t: 626.8 msec LV V1 mean: 70.6 cm/sec LV V1 VTI: 21.3 cm ECHO/Echo Complete Interpretation Summary The estimated ejection fraction is 55 %. Diastolic function is indeterminate. Trivial mitral valve insufficiency. Mild (1+) aortic valve insufficiency. Ordering Physician: Jon Arce Referring Physician: Vadim Deras M.D. Performed By: Vicky Wilson RCS
[2024-05-15 15:57] LABS: Troponin-I HS 97 pg/mL (3.0-78.0)
[2024-05-15] MEDS: 0.9% Saline Lock 10 ML Syringe IV (21:38)
[2024-05-16 04:50] VITALS: BP 135/85; PULSE 57; RESP 18; TEMP 36.7; O2SAT 97
[2024-05-16 06:34] LABS: Hematocrit 41.1 % (40-54); Hemoglobin 13.7 g/dL (13.0-16.5); Mean Corp Hgb Conc 33.3 g/dL (32-36); Mean Corpuscular Hgb 30.4 pg (27.0-32.0); Mean Corpuscular Volume 91.1 fL (80-94); Platelet Count 104 K/mm3 (150-450); RBC Distribution Width CV 12.8 % (11.6-14.6); RBC Distribution Width SD 42.4 fl (35.1-43.9); Red Blood Count 4.51 M/mm3 (4.6-6.2); White Blood Count 5.6 K/mm3 (4.4-11.0)
[2024-05-16 07:13] LABS: Anion Gap 6 (5-15); BUN 27 mg/dL (7-18); BUN/Creat Ratio 32.5 RATIO (10-20); Calcium,Total 8.6 mg/dL (8.5-10.1); Chloride 109 mmol/L (98-107); Creatinine, Serum 0.83 mg/dL (0.70-1.30); EST Glomerular Filtration Rate 93 mL/min (>60); Est Glom Filt Rate - Afr Amer 112 mL/min (>60); Glucose 86 mg/dL (74-106); Potassium 3.3 mmol/L (3.5-5.1); Sodium Level 142 mmol/L (136-145)
[2024-05-16 07:33] VITALS: O2SAT 91
[2024-05-16 08:40] VITALS: BP 144/91; PULSE 57; RESP 18; TEMP 36.6; O2SAT 95
[2024-05-16] MEDS: Finasteride 5 MG Tablet PO (09:05)
[2024-05-16] MEDS: Tolterodine Tartrate 2 MG CAP.SA PO (09:05)
[2024-05-16] MEDS: Lisinopril 40 MG Tablet PO (09:05)
[2024-05-16] MEDS: Aspirin 81 MG TAB.CHEW PO (09:05)
--- NOTE | 2024-05-16 09:48 | PN.HOSP_ITS ---
Subjective Subjective Doing well, no issues overnight. He is ANO x 2 and states that his muscle weakness is because of aching pain in his thighs bilaterally Objective Data Objective Data Vital Signs: Vital Signs Temp Pulse Resp BP Pulse Ox O2 Del Method 98 F 57 L 18 144/91 H 95 Room Air 05/16/24 08:40 05/16/24 08:40 05/16/24 08:40 05/16/24 08:40 05/16/24 08:40 05/16/24 08:40 Oxygen Delivery Method Room Air Weight: 213 lb 2.992 oz Body Mass Index (BMI) 28.9 Intake & Output: Intake and Output for Last 24 Hours 05/15/24 05/16/24 05/17/24 03:59 03:59 03:59 Intake Total 270 / 270 Output Total 325 / 325 100 / 100 Balance -55 / -55 -100 / -100 Lab / Micro Data 05/16/24 04:35 05/16/24 04:35 Labs: Laboratory Results - last 24 hr 05/15/24 10:19: WBC 7.6, RBC 4.90, Hgb 15.1, Hct 45.0, MCV 91.8, MCH 30.8, MCHC 33.6, RDW Std Deviation 43.1, RDW Coeff of [place] 12.7, Plt Count 102 L, MPV 12.1 H , Immature Gran % (Auto) 2.400 H, Neut % (Auto) 70.0, Lymph % (Auto) 7.8 L, [place] % (Auto) 19.5 H, Eos % (Auto) 0.0, Baso % (Auto) 0.3, Absolute Neuts (auto) 5.3, Absolute Lymphs (auto) 0.59 L, Nucleated RBC % 0, Sodium 141, Potassium 3.4 L, Chloride 107, Carbon Dioxide 28.0, Anion Gap 6, BUN 29 H, Creatinine 0.89, Estim Creat Clear Calc 71.03, Est GFR (MDRD) Af Amer 104, Est GFR (MDRD) Non-Af 86, B UN/Creatinine Ratio 32.5 H, Glucose 80, Calcium 9.1, Troponin I High Sens 69 05/15/24 10:35: Urine Color Straw, Urine Clarity Clear, Urine pH 7.0, Ur Specific [place] 1.010, Urine Protein 30 H, Urine Glucose (UA) Normal, Urine Ketones Negative, Urine Occult Blood 25 H, Urine Nitrite Negative, Urine Bilirubin Negative, Urine Urobilinogen Normal, Ur Leukocyte Esterase Negative, Urine RBC 0-5 SEEN, Urine WBC 0 SEEN, Ur Squamous Epith Cells 0 SEEN, Urine Bacteria RARE, Urine Mucus 0 SEEN 05/15/24 12:25: Magnesium 1.8, Troponin I High Sens 96 H 05/15/24 15:30: Troponin I High Sens 97 H 05/16/24 04:35: WBC 5.6, RBC 4.51 L, Hgb 13.7, Hct 41.1, MCV 91.1, MCH 30.4, MCHC 33.3, RDW Std Deviation 42.4, RDW Coeff of [place] 12.8, Plt Count 104 L, MPV 12.0, Sodium 142, Potassium 3.3 L, Chloride 109 H, Carbon Dioxide 27.0, Anion Gap 6, BUN 27 H, Creatinine 0.83, Estim Creat Clear Calc 75.60, Est GFR (MDRD) Af Amer 112, Est GFR (MDRD) Non-Af 93, BUN/Creatinine Ratio 32.5 H, Glucose 86, Calcium 8.6 Radiography Diagnostic Testing: Radiology Impression Chest X-Ray 05/15/24 11:18 IMPRESSION: No radiographic evidence of acute cardiopulmonary disease and unchanged. Electronically Signed: Kelton Dwyer MD at 11:27 EST Reading Location ID and State: [address] [place] [address] , Service support , Lumbar Spine X-Ray 05/15/24 14:20 IMPRESSION: 1. No acute osseous abnormality of the lumbar spine. 2. Minimal degenerative anterolisthesis of L4 on L5, moderate L4-L5 disc space height narrowing and moderate asymmetric L4-L5 degenerative facet arthropathy. 3. Mild L5-S1 disc space height narrowing with degenerative vacuum phenomenon. Electronically Signed: Kelton Dwyer MD at 14:51 EST Reading Location ID and State: [facility] / [place] , Service support , Physical Exam Narrative General: Alert, Oriented x2, Cooperative, No apparent distress HEENT: Atraumatic, PERRLA, EOMI, Normocephalic Oral: Moist Mucosa Neck: Supple, No JVD Lungs: Diminished, Normal air movement, No rhonchi, No wheeze, No rales Cardiovascular: Regular rate, Regular Rhythm, Normal S1, Normal S2, No murmurs Abdomen: Soft, Non Tender, Non-Distended, No Hepato-splenomegaly Extremities: No edema, Capillary Refill Less than 3 Seconds Skin: No rashes, No breakdown Musculoskeletal: No Tenderness to Palpation of Joints or Extremities Neurological: No focal neurological deficits, moves all extremities, Sensory exam intact to light touch and pain Psych/Mental Status: Normal Affect, Appropriate Assessment & Plan Assessment/Plan (1) Debility: (2) Elevated troponin: PLAN: Plan 1. Acute on chronic debility and difficulty with ambulation; reported history of lumbar spinal stenosis ? Admit under observation status to PCU. PT/OT/case management consulted. Lumbar spine x-ray on admit here showed no acute osseous abnormality of L-spine with mild degenerative disease. Reportedly had MRI L-spine done at outside facility 2 weeks ago that showed lumbar spinal stenosis. Has +5/5 in lower extremities on exam but is not ambulating well for an unclear reason. Does not have much back pain at all. Will await therapy recommendations after they work with him tomorrow. ? Given the proximal muscle weakness we will also obtain a CRP and ESR 2. Elevated troponins ? Troponin trend 69 > 96 > 97. EKG x 2 with normal sinus rhythm and no ischemic changes. No chest pain reported. Has had somewhat high blood pressure since arrival here and reports high blood pressures in the office with PCP on last few visits, suspect mild troponin elevation may be due to this. Has never had an echocardiogram before so we will obtain echo while here for further assessment. 3. Hypertension ? On home lisinopril 40 mg daily and doxazosin 1 mg daily. Blood pressures in the ED have been in the 140s over 160s systolic with a few readings in the low 100s diastolic. Continue home lisinopril and doxazosin and will add IV hydralazine as needed for SBP greater than 170. Has chlorthalidone, clonidine and losartan listed on home medication list, is unclear if/when he took these medications in the past. Will likely need close follow-up with PCP for further medication adjustments. ? Will monitor make adjustments as necessary 4. Urinary incontinence ? Reports urinary continence for the last 3 to 4 years. Stable. ? Continue home tolterodine. 5. BPH with obstructive symptoms ? Stable. ? Continue home finasteride. DVT: Lovenox Charges/Coding Visit Charges Inpatient E&M: 73879 Subs Hosp L2
[2024-05-16 09:58] LABS: CRP 5.99 mg/L (0.0-3.0)
[2024-05-16 10:41] LABS: Erythrocyte Sedimentation Rate 5 mm/hr (0-20)
[2024-05-16 12:36] LABS: Phosphorus 2.2 mg/dL (2.5-4.9)
--- NOTE | 2024-05-16 13:47 | CASEMGMT ---
Social Work SW met with pt and introduced self and role of SW. SW discussed dc plan with pt who feels he is weak and cannot return home at this time and will need short term SNF placement prior to return home. A list of SNF providers including quality and resource use data and consistent with the patient?s preferred geographic region, medical needs, and insurance network were provided from the [employer] Guide. Pt preferred provider is [facility]. Referral sent at this time. SW will follow for determination of acceptance. Pt will need precert prior to discharge. Plan: TCU, pending acceptance and precert VÍCTOR Hodge
--- NOTE | 2024-05-16 14:20 | CASEMGMT ---
LEATHA FRANK NOTE: Intro role of CM to patient and PEDERSON form explained re: Observation status for treatment of chronic debility, elevated troponins.? Explained hospitalization will be paid per his insurance policy for Outpatient billing?and condition will continue to be evaluated for Inpt necessity. Also let pt know that [facility] sends paper in the billing packet with their phone number if questions arise. Pt verbalizes understanding and does not have further questions. ?Form signed, copy made and placed in chart, and original given to pt. Tomasz HARKINS RN CM
[2024-05-16] MEDS: Potassium Phosphate 30 MM in 0.9% Normal Saline (250mL Bag) 250 ML 42 MM IV (14:38)
[2024-05-16 14:44] VITALS: BP 157/99; PULSE 59; RESP 18; TEMP 36.8; O2SAT 93
[2024-05-16 19:48] VITALS: BP 158/97; PULSE 57; RESP 16; TEMP 36.8; O2SAT 97
[2024-05-17] VITALS (9 sets, daily range): BP systolic 154–186; BP diastolic 65–116; PULSE 59–96; RESP 16–18; TEMP 36.4–36.8; O2SAT 94–97
[2024-05-17 05:48] LABS: Absolute Lymphocyte Count 1.33 X10^3/uL (0.83-4.51); Absolute Neutrophil Count 2.7 X10^3/uL (2.0-7.7); Basophil# 0.02 X10^3/uL; Basophil% 0.3 % (0-1); Eosinophil# 0.01 X10^3/uL; Eosinophils% 0.2 % (0-5); Hematocrit 44.3 % (40-54); Lymphocyte # 1.33 X10^3/ul (0.83-4.51); Lymphocyte % 22.1 % (19-41); Mean Corp Hgb Conc 33.9 g/dL (32-36); Mean Corpuscular Hgb 30.5 pg (27.0-32.0); Mean Platelet Vol. 12.2 fl (6.2-12.0); Monocyte# 1.85 X10^3/uL; Monocyte% 30.8 % (0-10); NRBC Flagged by Analyzer 0 % (0-5); Neutrophil # 2.74 X10^3/uL (2.7-7.7); Neutrophil % 45.6 % (47-70); POSITIVE DIFFERENTIAL YES; Platelet Count 106 K/mm3 (150-450); RBC Distribution Width CV 12.7 % (11.6-14.6); Red Blood Count 4.92 M/mm3 (4.6-6.2)
[2024-05-17 05:53] LABS: Differential Indicated SCAN CRITERIA MET
[2024-05-17 05:54] LABS: Anisocytosis 1+; Platelet Estimate ADEQUATE (ADEQ)
[2024-05-17 05:55] LABS: Differential Comment SCANNED
[2024-05-17 06:07] LABS: Anion Gap 5 (5-15); BUN 20 mg/dL (7-18); BUN/Creat Ratio 27.5 RATIO (10-20); Calcium,Total 8.7 mg/dL (8.5-10.1); Chloride 108 mmol/L (98-107); Creatinine, Serum 0.73 mg/dL (0.70-1.30); EST Glomerular Filtration Rate 108 mL/min (>60); Est Glom Filt Rate - Afr Amer 131 mL/min (>60); Estimated Creatinine Clearance 78.43 ml/min; Glucose 88 mg/dL (74-106); Potassium 3.3 mmol/L (3.5-5.1); Sodium Level 140 mmol/L (136-145)
[2024-05-17] MEDS: Aspirin 81 MG TAB.CHEW PO (09:40)
[2024-05-17] MEDS: Tolterodine Tartrate 2 MG CAP.SA PO (09:40)
[2024-05-17] MEDS: Finasteride 5 MG Tablet PO (09:41)
[2024-05-17] MEDS: Lisinopril 40 MG Tablet PO (09:41)
[2024-05-17] MEDS: Potassium Chloride Oral Tablet 20 MEQ 40 MEQ PO (09:59)
--- NOTE | 2024-05-17 10:14 | PN.HOSP_ITS ---
Subjective Subjective Doing well, no issues overnight. Confused Objective Data Objective Data Vital Signs: Vital Signs Temp Pulse Resp BP Pulse Ox O2 Del Method 97.5 F L 90 18 154/106 H 95 Room Air 05/17/24 09:30 05/17/24 09:30 05/17/24 09:30 05/17/24 09:30 05/17/24 09:30 05/17/24 09:34 Oxygen Delivery Method Room Air Weight: 213 lb 2.992 oz Body Mass Index (BMI) 28.9 Intake & Output: Intake and Output for Last 24 Hours 05/16/24 05/17/24 05/18/24 03:59 03:59 03:59 Intake Total 270 / 270 1360 / 1360 200 / 200 Output Total 325 / 325 1400 / 1400 Balance -55 / -55 -40 / -40 200 / 200 Lab / Micro Data 05/17/24 04:25 05/17/24 04:25 Labs: Laboratory Results - last 24 hr 05/16/24 04:35: ESR 5, Phosphorus 2.2 L, C-React Prot Ext Range 5.99 H 05/17/24 04:25: WBC 6.0, RBC 4.92, Hgb 15.0, Hct 44.3, MCV 90.0, MCH 30.5, MCHC 33.9, RDW Std Deviation 42.0, RDW Coeff of [place] 12.7, Plt Count 106 L, MPV 12.2 H , Immature Gran % (Auto) 1.000 H, Neut % (Auto) 45.6 L, Lymph % (Auto) 22.1, M benji % (Auto) 30.8 H, Eos % (Auto) 0.2, Baso % (Auto) 0.3, Absolute Neuts (auto) 2.7, Absolute Lymphs (auto) 1.33, Nucleated RBC % 0, Differential Comment SCANNED, Platelet Estimate ADEQUATE, Anisocytosis 1+, Sodium 140, Potassium 3.3 L, Chloride 108 H, Carbon Dioxide 27.0, Anion Gap 5, BUN 20 H, Creatinine 0.73, Estim Creat Clear Calc 78.43, Est GFR (MDRD) Af Amer 131, Est GFR (MDRD) Non-Af 108, BUN/Creatinine Ratio 27.5 H, Glucose 88, Calcium 8.7 Radiography Diagnostic Testing: Radiology Impression Echocardiogram 05/15/24 15:11 Interpretation Summary The estimated ejection fraction is 55 %. Diastolic function is indeterminate. Trivial mitral valve insufficiency. Mild (1+) aortic valve insufficiency. Ordering Physician: Jon Arce Referring Physician: Vadim Deras M.D. Performed By: Vicky Wilson RCS Physical Exam Narrative General: Alert, Oriented x2, confused, Cooperative, No apparent distress HEENT: Atraumatic, PERRLA, EOMI, Normocephalic Oral: Moist Mucosa Neck: Supple, No JVD Lungs: Diminished, Normal air movement, No rhonchi, No wheeze, No rales Cardiovascular: Regular rate, Regular Rhythm, Normal S1, Normal S2, No murmurs Abdomen: Soft, Non Tender, Non-Distended, No Hepato-splenomegaly Extremities: No edema, Capillary Refill Less than 3 Seconds Skin: No rashes, No breakdown Musculoskeletal: No Tenderness to Palpation of Joints or Extremities Neurological: No focal neurological deficits, moves all extremities, Sensory exam intact to light touch and pain Psych/Mental Status: Normal Affect, Appropriate Assessment & Plan Assessment/Plan (1) Debility: (2) Elevated troponin: PLAN: Plan 1. Acute on chronic debility and difficulty with ambulation; reported history of lumbar spinal stenosis ? Admit under observation status to PCU. PT/OT/case management consulted. Lumbar spine x-ray on admit here showed no acute osseous abnormality of L-spine with mild degenerative disease. Reportedly had MRI L-spine done at outside facility 2 weeks ago that showed lumbar spinal stenosis. Has +5/5 in lower extremities on exam but is not ambulating well for an unclear reason. Does not have much back pain at all. Will await therapy recommendations after they work with him tomorrow. ? CRP was slightly elevated to 5.99 and ESR was normal. Unlikely to have an inflammatory myopathy 2. Elevated troponins ? Troponin trend 69 > 96 > 97. EKG x 2 with normal sinus rhythm and no ischemic changes. No chest pain reported. Has had somewhat high blood pressure since arrival here and reports high blood pressures in the office with PCP on last few visits, suspect mild troponin elevation may be due to this. ? echo with an EF of 55% no wall motion abnormality 3. Hypertension ? On home lisinopril 40 mg daily and doxazosin 1 mg daily. Blood pressures in the ED have been in the 140s over 160s systolic with a few readings in the low 100s diastolic. Continue home lisinopril and doxazosin and will add IV hydralazine as needed for SBP greater than 170. Has chlorthalidone, clonidine and losartan listed on home medication list, is unclear if/when he took these medications in the past. Will likely need close follow-up with PCP for further medication adjustments. ? Will monitor make adjustments as necessary 4. Urinary incontinence ? Reports urinary continence for the last 3 to 4 years. Stable. ? Continue home tolterodine. 5. BPH with obstructive symptoms ? Stable. ? Continue home finasteride. DVT: Lovenox Charges/Coding Visit Charges Inpatient E&M: 71463 Subs Hosp L2
[2024-05-17] MEDS: hydrALAZINE 20 MG/ML Vial 10 MG IV (17:08)
[2024-05-17] MEDS: 0.9% Saline Lock 10 ML Syringe IV (17:08)
[2024-05-17 20:46] LABS: Bacteria 0 SEEN /hpf (None Seen); Mucous, Urine 0 SEEN /hpf (<or=2+); Squamous Epithelial Cells - UA 0 SEEN /hpf (0-5)
[2024-05-17 20:47] LABS: Color, Urine Yellow (Yellow); Glucose, Dipstick Normal (Normal); Ketone-Dipstick Negative (Negative); Leukocyte Esterase-Dipstick Negative /ul (Negative); Nitrite-Dipstick Negative (Negative); Occult Blood-Urine 10 /ul (Negative); Protein-Dipstick 30 mg/dl (Negative); Urine Bilirubin Dipstick Negative (Negative); Urine Clarity Clear (Clear); Urine Urobilinogen Normal (Normal)
[2024-05-17 21:01] LABS: Red Blood Cells-Urine 0-5 SEEN /hpf (0-5); White Blood Cells 0-5 SEEN /hpf (0-5)
[2024-05-18] VITALS (7 sets, daily range): BP systolic 111–177; BP diastolic 94–110; PULSE 65–88; RESP 16–18; TEMP 36.5–37; O2SAT 93–96
--- NOTE | 2024-05-18 01:41 | NURSING ---
Rythum change noted on monitor, NS to afib/flutter. EKG obtained.
[2024-05-18 06:17] LABS: Absolute Lymphocyte Count 0.89 X10^3/uL (0.83-4.51); Absolute Neutrophil Count 3.7 X10^3/uL (2.0-7.7); Basophil# 0.01 X10^3/uL; Basophil% 0.2 % (0-1); Eosinophil# 0.01 X10^3/uL; Eosinophils% 0.2 % (0-5); Hematocrit 47.5 % (40-54); Hemoglobin 15.9 g/dL (13.0-16.5); Lymphocyte # 0.89 X10^3/ul (0.83-4.51); Lymphocyte % 14.4 % (19-41); Mean Corp Hgb Conc 33.5 g/dL (32-36); Mean Corpuscular Hgb 29.7 pg (27.0-32.0); Mean Corpuscular Volume 88.6 fL (80-94); Mean Platelet Vol. 11.5 fl (6.2-12.0); Monocyte# 1.49 X10^3/uL; Monocyte% 24.2 % (0-10); NRBC Flagged by Analyzer 0 % (0-5); Neutrophil # 3.69 X10^3/uL (2.7-7.7); Neutrophil % 59.9 % (47-70); Platelet Count 120 K/mm3 (150-450); RBC Distribution Width CV 12.7 % (11.6-14.6); RBC Distribution Width SD 41.2 fl (35.1-43.9); Red Blood Count 5.36 M/mm3 (4.6-6.2); White Blood Count 6.2 K/mm3 (4.4-11.0)
[2024-05-18 06:35] LABS: Anion Gap 5 (5-15); BUN 18 mg/dL (7-18); BUN/Creat Ratio 24.9 RATIO (10-20); Chloride 108 mmol/L (98-107); Creatinine, Serum 0.72 mg/dL (0.70-1.30); EST Glomerular Filtration Rate 109 mL/min (>60); Est Glom Filt Rate - Afr Amer 132 mL/min (>60); Estimated Creatinine Clearance 78.43 ml/min; Glucose 109 mg/dL (74-106); Potassium 3.5 mmol/L (3.5-5.1); Sodium Level 138 mmol/L (136-145)
--- NOTE | 2024-05-18 09:09 | PN.HOSP_ITS ---
Reason for Visit Reason for Visit: Diagnoses Other malaise (05/15/24) Other specified abnormal findings of blood chemistry (05/15/24) Subjective Subjective No new events. Objective Data Objective Data Vital Signs: Vital Signs Temp Pulse Resp BP Pulse Ox O2 Del Method 36.7 C 65 16 165/110 H 93 Room Air 05/18/24 03:09 05/18/24 03:09 05/18/24 03:09 05/18/24 03:09 05/18/24 03:09 05/18/24 03:09 Oxygen Delivery Method Room Air Weight: 96.7 kg Body Mass Index (BMI) 28.9 Intake & Output: Intake and Output for Last 24 Hours 05/16/24 05/17/24 05/18/24 23:59 23:59 23:59 Intake Total 960 / 1360 600 / 900 700 / 700 Output Total 600 / 1400 800 / 1000 500 / 500 Balance 360 / -40 -200 / -100 200 / 200 Lab / Micro Data 05/18/24 05:34 05/18/24 05:34 Labs: Laboratory Results - last 24 hr 05/17/24 19:02: Urine Color Yellow, Urine Clarity Clear, Urine pH 7.0, Ur Specific [place] 1.010, Urine Protein 30 H, Urine Glucose (UA) Normal, Urine Ketones Negative, Urine Occult Blood 10 H, Urine Nitrite Negative, Urine Bilirubin Negative, Urine Urobilinogen Normal, Ur Leukocyte Esterase Negative, Urine RBC 0-5 SEEN, Urine WBC 0-5 SEEN, Ur Squamous Epith Cells 0 SEEN, Urine Bacteria 0 SEEN, Urine Mucus 0 SEEN 05/18/24 05:34: WBC 6.2, RBC 5.36, Hgb 15.9, Hct 47.5, MCV 88.6, MCH 29.7, MCHC 33.5, RDW Std Deviation 41.2, RDW Coeff of [place] 12.7, Plt Count 120 L, MPV 11.5, Immature Gran % (Auto) 1.100 H, Neut % (Auto) 59.9, Lymph % (Auto) 14.4 L, [place] % (Auto) 24.2 H, Eos % (Auto) 0.2, Baso % (Auto) 0.2, Absolute Neuts (auto) 3.7, Absolute Lymphs (auto) 0.89, Nucleated RBC % 0, Sodium 138, Potassium 3.5, C hloride 108 H, Carbon Dioxide 24.0, Anion Gap 5, BUN 18, Creatinine 0.72, Estim Creat Clear Calc 78.43, Est GFR (MDRD) Af Amer 132, Est GFR (MDRD) Non-Af 109, B UN/Creatinine Ratio 24.9 H, Glucose 109 H, Calcium 9.0 Physical Exam Const alert, no apparent distress and average body habitus HEENT head/scalp atraumatic and moist oral mucous membranes Resp normal respiratory effort, no retractions, no use of accessory muscles and clear to auscultation bilaterally Cardio regular rate, regular rhythm, S1 normal heart sound and S2 normal heart sound GI normal to inspection, nondistended, normoactive bowel sounds, soft to palpation, non-tender and non-distended Extremity normal to inspection and full ROM Neuro Sensorium / Orientation: awake and alert Assessment & Plan Assessment/Plan (1) Debility: (2) Elevated troponin: PLAN: Plan Acute on chronic debility * work up here unremarkable. 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 Lumbar spine degenerative changes most pronounced at L3-4 * PT OT evaluate and treat. elevated troponins; * Echo showed an EF of 55% * Through [facility], I did not see any previous troponins outside of [facility]. No additional workup at this time. Chronic conditions: * Hypertension: On home lisinopril 40 mg daily and doxazosin 1 mg daily. Blood pressures in the ED have been in the 140s over 160s systolic with a few readings in the low 100s diastolic. Continue home lisinopril and doxazosin and will add IV hydralazine as needed for SBP greater than 170. Has chlorthalidone, clonidine and losartan listed on home medication list, is unclear if/when he took these medications in the past. Will likely need close follow-up with PCP for further medication adjustments. * Urinary incontinence? Reports urinary continence for the last 3 to 4 years. Stable.? Continue home tolterodine. * BPH with obstructive symptoms Continue home finasteride. DVT: Lovenox Disposition: to SNF pending insurance approval. Charges/Coding Visit Charges Inpatient E&M: 97901 Subs Hosp L2
[2024-05-18] MEDS: Lisinopril 40 MG Tablet PO (09:19)
[2024-05-18] MEDS: Tolterodine Tartrate 2 MG CAP.SA PO (09:19)
[2024-05-18] MEDS: Aspirin 81 MG TAB.CHEW PO (09:19)
[2024-05-18] MEDS: Finasteride 5 MG Tablet PO (10:03)
--- NOTE | 2024-05-18 14:00 | CASEMGMT ---
[facility] can take patient. JOHN notified patient that [facility] can take him when he is medically ready. Plan: d/c to [facility] pending insurance approval. Cate MOMIN
--- NOTE | 2024-05-18 14:19 | CASEMGMT ---
Patient's sister came to desk and asked for SW. SW spoke with patient's sister Gerri. SW updated Gerri on patient's current plan. SW also let her know that patient will be able to wear clothes while on TCU. JOHN also let Gerri know that someone will notify her when patient is being discharged. Cate Lin [employer]
[2024-05-18] MEDS: MELATONIN 3 MG TABLET PO (20:56)
[2024-05-18] MEDS: hydrALAZINE 20 MG/ML Vial 10 MG IV (20:56)
[2024-05-19 01:16] VITALS: BP 165/88; PULSE 76; RESP 16; TEMP 37.2; O2SAT 93
[2024-05-19 03:08] VITALS: BP 166/110; PULSE 73; RESP 16; TEMP 36.8; O2SAT 93
--- NOTE | 2024-05-19 07:49 | PCM.PN.HOSP ---
Reason for Visit Reason for Visit: Diagnoses Other malaise (05/15/24) Other specified abnormal findings of blood chemistry (05/15/24) Subjective Subjective Feeling well. No events overnight. Objective Data Objective Data Vital Signs: Vital Signs Temp Pulse Resp BP Pulse Ox O2 Del Method 36.8 C 73 16 166/110 H 93 Room Air 05/19/24 03:08 05/19/24 03:08 05/19/24 03:08 05/19/24 03:08 05/19/24 03:08 05/19/24 03:08 Oxygen Delivery Method Room Air Weight: 96.7 kg Body Mass Index (BMI) 28.9 Intake & Output: Intake and Output for Last 24 Hours 05/17/24 05/18/24 05/19/24 23:59 23:59 23:59 Intake Total 600 / 900 1500 / 1700 300 / 300 Output Total 800 / 1000 500 / 775 275 / 275 Balance -200 / -100 1000 / 925 25 / 25 Lab / Micro Data 05/18/24 05:34 05/18/24 05:34 Physical Exam Const alert and no apparent distress HEENT head/scalp atraumatic and moist oral mucous membranes Resp normal respiratory effort and no retractions Assessment & Plan Assessment/Plan (1) Debility: (2) Elevated troponin: PLAN: Plan Acute on chronic debility work up here unremarkable. [facility] had an MRI of his cervical and lumbar spine on April 10 that that showed cervical spine degenerative changes most pronounced at C4-5 and C5-6. Lumbar spine degenerative changes most pronounced at L3-4 PT OT evaluate and treat. elevated troponins; Echo showed an EF of 55% [facility] [place] did not see any previous troponins outside of [facility]. No additional workup at this time. Chronic conditions: Hypertension: On home lisinopril 40 mg daily and doxazosin 1 mg daily. Blood pressures in the ED have been in the 140s over 160s systolic with a few readings in the low 100s diastolic. Continue home lisinopril and doxazosin and will add IV hydralazine as needed for SBP greater than 170. Has chlorthalidone, clonidine and losartan listed on home medication list, is unclear if/when he took these medications in the past. Will likely need close follow-up with PCP for further medication adjustments. Urinary incontinence? Reports urinary continence for the last 3 to 4 years. Stable.? Continue home tolterodine. BPH with obstructive symptoms Continue home finasteride. DVT: Lovenox Disposition: to TCU
[2024-05-19 09:50] VITALS: O2SAT 89
--- NOTE | 2024-05-19 09:50 | PCM.TXEXTCAR ---
Diet Diet Order/Speech Therapy: 05/15/24 15:11 Diet: Cardiac - Heart Healthy Food consistency:: Regular Liquid Consistency:: Regular/Thin Routine Orders/Code Status Code Status: Full Code DC O2, CPAP, BIPAP needs Additional Home O2 Discharge instructions: No Therapies Weight Bearing: Full weight bearing Physical Therapy: Eval and Treat Occupational Therapy: Eval and Treat Problem/Diagnosis (1) Debility: Status: Acute Code(s): R53.81 - Other malaise (2) Elevated troponin: Status: Acute Code(s): R79.89 - Other specified abnormal findings of blood chemistry Plan Acute on chronic debility work up here unremarkable. 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 Lumbar spine degenerative changes most pronounced at L3-4 PT OT evaluate and treat. elevated troponins; Echo showed an EF of 55% [facility], I did not see any previous troponins outside of [facility]. No additional workup at this time. Chronic conditions: Hypertension: On home lisinopril 40 mg daily and doxazosin 1 mg daily. Blood pressures in the ED have been in the 140s over 160s systolic with a few readings in the low 100s diastolic. Continue home lisinopril and doxazosin and will add IV hydralazine as needed for SBP greater than 170. Has chlorthalidone, clonidine and losartan listed on home medication list, is unclear if/when he took these medications in the past. Will likely need close follow-up with PCP for further medication adjustments. Urinary incontinence? Reports urinary continence for the last 3 to 4 years. Stable.? Continue home tolterodine. BPH with obstructive symptoms Continue home finasteride. DVT: Lovenox Disposition: to TCU Allergies/Procedures Done in Hospital Allergies salicylic acid Allergy (Verified 05/15/24 13:10) Swelling clearasil Procedures: None Type of Care/Length of Stay Estimated LOS: Convalescent Care Less Than 30 days Type of Care Needed: Skilled Rehab Potential: Good Prognosis: Good Additional Orders/Day of Discharge Day of Discharge: 05/19/24 Discharge Plan Admission Admit Date/Time: 05/15/24 17:22 Primary Reason for Your Visit: debility Attending Provider: Kendall Dowling Primary Care Provider: Vadim Deras Consulting Providers: Jon Arce; Elroy Nunez Discharge Orders/Prescriptions Prescriptions: Continued finasteride 5 mg tablet 5 mg PO DAILY melatonin 3 mg capsule 3 mg PO DAILY acetaminophen 500 mg capsule 1,000 mg PO Q6H PRN (Reason: pain) Probiotic Acidophilus 250 million cell capsule 500 mmu cells PO DAILY Patient Comments: states doesnt take qd multivitamin Tablet 1 tab PO BREAKFAST Qty: 0 0RF menthol [Blue Gel] 2 % Gel 1 applic topical TID PRN PRN (Reason: Pain Score 1-10) Qty: 0 0RF ofloxacin 0.3 % drops 1 drp RIGHT EYE 4X/DAY tolterodine 1 mg tablet 1 mg PO BID lisinopril 40 mg tablet 40 mg PO DAILY aspirin 81 mg capsule 81 mg PO DAILY Discontinued clonidine HCl 0.1 mg Tablet 0.1 mg PO Q6H PRN PRN (Reason: SYS>165 DIAST>85) Qty: 0 0RF chlorthalidone 50 mg Tablet 25 mg PO DAILY Qty: 0 0RF losartan 100 mg Tablet 100 mg PO DAILY Qty: 0 0RF calcium carbonate-vitamin D3 [Oyster Shell Calcium-Vit D3] 500 mg-5 mcg (200 unit) Tablet 0.5 tab PO BIDCM Qty: 0 0RF Referrals / Follow Up: Vadim Deras MD [Primary Care Provider] - Within 2 Weeks Disposition Disposition (needs filled in before D/C Order can be placed): Long Term Facility
[2024-05-19 09:53] VITALS: BP 145/103; PULSE 83; RESP 18; TEMP 36.7; O2SAT 94
--- NOTE | 2024-05-19 09:53 | DS.PCM_ITS ---
Providers Date of Admission: 05/15/24 Primary Care Physician: Dr. Vadim Deras MD Reason For Visit: ACUTE ON CHRONIC DEBILITY, ELEVATED TROPONINS Diagnosis Discharge Diagnosis (1) Debility: Status: Acute Code(s): R53.81 - Other malaise (2) Elevated troponin: Status: Acute Code(s): R79.89 - Other specified abnormal findings of blood chemistry Plan Acute on chronic debility * work up here unremarkable. 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 Lumbar spine degenerative changes most pronounced at L3-4 * PT OT evaluate and treat. elevated troponins; * Echo showed an EF of 55% * Through [facility], I did not see any previous troponins outside of [facility]. No additional workup at this time. Chronic conditions: * Hypertension: On home lisinopril 40 mg daily and doxazosin 1 mg daily. Blood pressures in the ED have been in the 140s over 160s systolic with a few readings in the low 100s diastolic. Continue home lisinopril and doxazosin and will add IV hydralazine as needed for SBP greater than 170. Has chlorthalidone, clonidine and losartan listed on home medication list, is unclear if/when he took these medications in the past. Will likely need close follow-up with PCP for further medication adjustments. * Urinary incontinence? Reports urinary continence for the last 3 to 4 years. Stable.? Continue home tolterodine. * BPH with obstructive symptoms Continue home finasteride. DVT: Lovenox Disposition: to TCU Medications at Discharge Home Medications finasteride 5 mg tablet 5 mg PO DAILY Bladder 06/21/23 melatonin 3 mg capsule 3 mg PO DAILY Sleep 06/21/23 Lactobacillus acidophilus 250 million cell capsule (Probiotic Acidophilus) 500 mmu cells PO DAILY Probiotic 06/27/23 acetaminophen 500 mg capsule 1,000 mg PO Q6H PRN pain 06/27/23 menthol 2 % topical gel (Blue Gel) 1 applic topical TID PRN PRN Pain Score 1-10 #0 grams 07/16/23 multivitamin 1 tab PO BREAKFAST #0 tabs 07/16/23 aspirin 81 mg capsule 81 mg PO DAILY 05/15/24 lisinopril 40 mg tablet 40 mg PO DAILY 05/15/24 ofloxacin 0.3 % eye drops 1 drp RIGHT EYE 4X/DAY 05/15/24 tolterodine 1 mg tablet 1 mg PO BID 05/15/24 Hospital Course Operations None Procedures None Weight / BMI Weight Weight: 96.7 kg Body Mass Index (BMI) 28.9 ABG / Lab / Microbiology Data 05/18/24 05:34 05/18/24 05:34 D/C Instructions DC O2, CPAP, BIPAP Needs Additional Home O2 Discharge instructions: No DC home with Oxygen: No Meaningful Use Info Meaningful Use Meaningful Use Diagnoses (Choose all that apply): None applicable Ischemic Stroke Statin Dosing Therapy Reference: STATIN DOSE THERAPY REFERENCE: * Patients > 75 years receive moderate or high dose statin therapy. * Patients 75 years or YOUNGER should receive HIGH intensity statin dose unless contraindicated. You will be required to document reason for non-treatment if statin daily dose does not meet guidelines. HIGH DOSE STATIN THERAPY DAILY Atorvastatin > than or = to 40 mg Rosuvastatin > than or = to 20 mg Amlodipine + Atorvastatin > than or = to 2.5/40 mg Ezetimibe + Simvastatin 10/80 mg Simvastatin 80mg Discharge Plan Admission Admit Date/Time: 05/15/24 17:22 Primary Reason for Your Visit: debility Attending Provider: Kendall Dowling Primary Care Provider: Vadim Deras Consulting Providers: Jon Arce; Elroy Nunez Discharge Orders/Prescriptions Prescriptions: Continued finasteride 5 mg tablet 5 mg PO DAILY melatonin 3 mg capsule 3 mg PO DAILY acetaminophen 500 mg capsule 1,000 mg PO Q6H PRN (Reason: pain) Probiotic Acidophilus 250 million cell capsule 500 mmu cells PO DAILY Patient Comments: states doesnt take qd multivitamin Tablet 1 tab PO BREAKFAST Qty: 0 0RF menthol [Blue Gel] 2 % Gel 1 applic topical TID PRN PRN (Reason: Pain Score 1-10) Qty: 0 0RF ofloxacin 0.3 % drops 1 drp RIGHT EYE 4X/DAY tolterodine 1 mg tablet 1 mg PO BID lisinopril 40 mg tablet 40 mg PO DAILY aspirin 81 mg capsule 81 mg PO DAILY Discontinued clonidine HCl 0.1 mg Tablet 0.1 mg PO Q6H PRN PRN (Reason: SYS>165 DIAST>85) Qty: 0 0RF chlorthalidone 50 mg Tablet 25 mg PO DAILY Qty: 0 0RF losartan 100 mg Tablet 100 mg PO DAILY Qty: 0 0RF calcium carbonate-vitamin D3 [Oyster Shell Calcium-Vit D3] 500 mg-5 mcg (200 unit) Tablet 0.5 tab PO BIDCM Qty: 0 0RF Referrals / Follow Up: Vadim Deras MD [Primary Care Provider] - Within 2 Weeks Disposition Disposition (needs filled in before D/C Order can be placed): [facility] Charges/Coding Visit Charges Inpatient E&M: 67015 Disch Hosp
--- NOTE | 2024-05-19 09:56 | CASEMGMT ---
Patient is ready for discharge to TCU. JOHN called patient's sister Gerri and her answered. Gerri was not home. JOHN let Gerri's know that patient will be discharged to TCU today. He said they were aware and thanked JOHN for calling. Plan: d/c to [facility] TCU under skilled level of care. Cate MOMIN
[2024-05-19] MEDS: Tolterodine Tartrate 2 MG CAP.SA PO (09:59)
[2024-05-19] MEDS: Lisinopril 40 MG Tablet PO (09:59)
[2024-05-19] MEDS: Finasteride 5 MG Tablet PO (09:59)
[2024-05-19] MEDS: Aspirin 81 MG TAB.CHEW PO (09:59)
--- NOTE | 2024-05-19 10:00 | PHA.DC.MR.R ---
Pharmacy [place] Med Reconciliation Pharmacy Service has performed discharge medication reconciliation for this patient. The patient's discharge medication list was reviewed for discrepancies and discrepancies were resolved. Medications at Discharge Home Medications finasteride 5 mg tablet 5 mg PO DAILY Bladder 06/21/23 melatonin 3 mg capsule 3 mg PO DAILY Sleep 06/21/23 Lactobacillus acidophilus 250 million cell capsule (Probiotic Acidophilus) 500 mmu cells PO DAILY Probiotic 06/27/23 acetaminophen 500 mg capsule 1,000 mg PO Q6H PRN pain 06/27/23 menthol 2 % topical gel (Blue Gel) 1 applic topical TID PRN PRN Pain Score 1-10 #0 grams 07/16/23 multivitamin 1 tab PO BREAKFAST #0 tabs 07/16/23 aspirin 81 mg capsule 81 mg PO DAILY 05/15/24 lisinopril 40 mg tablet 40 mg PO DAILY 05/15/24 ofloxacin 0.3 % eye drops 1 drp RIGHT EYE 4X/DAY 05/15/24 tolterodine 1 mg tablet 1 mg PO BID 05/15/24
[2024-05-19 10:34] VITALS: O2SAT 99
[2024-05-19 10:50] VITALS: O2SAT 95
== END 2024-05-19 11:42 | disposition skilled nursing facility (03) ==
LOC: ED 14:00 → PCU 05-16 07:06
PROVIDERS: Family Medicine; Admitting Provider Hospitalist; Emergency Provider Surgery; PCP Internal Medicine
DX: R53.1 Weakness (principal); R53.81 Other malaise; E78.00 Pure hypercholesterolemia, unspecified; Z87.891 Personal history of nicotine dependence; M48.061 Spinal stenosis, lumbar region without neurogenic claudication; R79.89 Other specified abnormal findings of blood chemistry; I10 Essential (primary) hypertension; N40.1 Benign prostatic hyperplasia with lower urinary tract symptoms; R32 Unspecified urinary incontinence; R20.0 Anesthesia of skin; Z79.899 Other long term (current) drug therapy; Z79.82 Long term (current) use of aspirin; N32.81 Overactive bladder; G47.00 Insomnia, unspecified; N13.8 Other obstructive and reflux uropathy
CPT/HCPCS: 36415; 71045; 72100; 80048; 81001; 83735; 84100; 84484; 85025; 85027; 85652; 86140; 93005; 93306; 94668; 96374; 96375; 96376; 97110; 97116; 97162; 97165; 97530; 97535; 99221; 99285; J7050; A4216; G0378

== ENCOUNTER 2024-05-19 11:52 | Inpatient (IN) | payer MEDICARE, SELFPAY ==
[2024-05-19 12:11] VITALS: BP 168/109; PULSE 80; RESP 16; TEMP 36.3; O2SAT 96; BMI 27.7
[2024-05-19 12:55] VITALS: BP 168/109; PULSE 80
[2024-05-19] MEDS: hydrALAZINE 25 MG Tablet PO ×2 (12:55→20:43)
[2024-05-19 20:43] VITALS: BP 147/91; PULSE 95
[2024-05-19] MEDS: Senna/Docusate Sodium 1 Tablet 2 TABLET PO (20:43)
[2024-05-19] MEDS: MENTHOL 226.8 GM JAR 1 APPLIC TOPICAL (20:43)
[2024-05-19] MEDS: MELATONIN 3 MG TABLET PO (20:43)
[2024-05-19] MEDS: Acetaminophen 500 MG Tablet 1000 MG PO (21:22)
[2024-05-19] MEDS: Nystatin Powder 15gm Bottle 1 APPLIC TOPICAL (21:29)
[2024-05-20] VITALS (8 sets, daily range): BP systolic 126–162; BP diastolic 81–104; PULSE 73–105; RESP 18; TEMP 36.6; O2SAT 93
[2024-05-20 05:52] LABS: Absolute Lymphocyte Count 1.43 X10^3/uL (0.83-4.51); Absolute Neutrophil Count 4.2 X10^3/uL (2.0-7.7); Basophil# 0.02 X10^3/uL; Basophil% 0.2 % (0-1); Eosinophil# 0.01 X10^3/uL; Eosinophils% 0.1 % (0-5); Hematocrit 44.9 % (40-54); Hemoglobin 15.6 g/dL (13.0-16.5); Lymphocyte # 1.43 X10^3/ul (0.83-4.51); Mean Corp Hgb Conc 34.7 g/dL (32-36); Mean Corpuscular Hgb 30.8 pg (27.0-32.0); Mean Corpuscular Volume 88.7 fL (80-94); Monocyte# 3.75 X10^3/uL; Monocyte% 39.3 % (0-10); NRBC Flagged by Analyzer 0 % (0-5); Neutrophil # 4.23 X10^3/uL (2.7-7.7); Neutrophil % 44.4 % (47-70); POSITIVE DIFFERENTIAL YES; Platelet Count 106 K/mm3 (150-450); RBC Distribution Width CV 13.1 % (11.6-14.6); RBC Distribution Width SD 42.4 fl (35.1-43.9); Red Blood Count 5.06 M/mm3 (4.6-6.2); White Blood Count 9.5 K/mm3 (4.4-11.0)
[2024-05-20 05:53] LABS: Differential Indicated SCAN CRITERIA MET
[2024-05-20 06:12] LABS: ALB/GLOB Ratio 0.9 RATIO (0.9-2.4); AST(SGOT) 16 U/L (15-37); Alanine Aminotransfer ALT/SGPT 21 U/L (16-61); Albumin, Serum 2.8 g/dL (3.2-5.0); Alkaline Phosphatase 68 U/L (45-117); Anion Gap 6 (5-15); BUN 25 mg/dL (7-18); BUN/Creat Ratio 29.4 RATIO (10-20); Calcium,Total 8.7 mg/dL (8.5-10.1); Chloride 106 mmol/L (98-107); Creatinine, Serum 0.85 mg/dL (0.70-1.30); EST Glomerular Filtration Rate 90 mL/min (>60); Est Glom Filt Rate - Afr Amer 109 mL/min (>60); Globulin 3.1 g/dL (2.2-4.2); Glucose 102 mg/dL (74-106); Potassium 3.4 mmol/L (3.5-5.1); Protein, Total 5.9 g/dL (6.4-8.2); Sodium Level 137 mmol/L (136-145)
[2024-05-20] MEDS: hydrALAZINE 25 MG Tablet PO ×3 (06:23→20:46)
[2024-05-20 06:44] LABS: Differential Comment SCANNED
[2024-05-20] MEDS: Acetaminophen 500 MG Tablet 1000 MG PO ×2 (09:28→20:46)
[2024-05-20] MEDS: Potassium Chloride Oral Tablet 20 MEQ PO (09:29)
[2024-05-20] MEDS: Losartan Potassium 100 MG Tablet PO (09:29)
[2024-05-20] MEDS: Finasteride 5 MG Tablet PO (09:30)
[2024-05-20] MEDS: Tolterodine Tartrate 2 MG CAP.SA PO (09:30)
[2024-05-20] MEDS: Senna/Docusate Sodium 1 Tablet 2 TABLET PO (09:30)
[2024-05-20] MEDS: Nystatin Powder 15gm Bottle 1 APPLIC TOPICAL ×2 (09:31→20:50)
[2024-05-20] MEDS: Rivaroxaban 10 MG Tablet PO (09:31)
[2024-05-20] MEDS: Tuberculin,Purif.prot.deriv. 50 TU/ML Vial 0.1 ML ID (09:36)
[2024-05-20] MEDS: Ensure Plus High Protein 120 ML LIQUID PO (17:04)
[2024-05-20] MEDS: MENTHOL 226.8 GM JAR 1 APPLIC TOPICAL (20:46)
[2024-05-20] MEDS: MELATONIN 3 MG TABLET PO (20:47)
[2024-05-21] VITALS (8 sets, daily range): BP systolic 104–139; BP diastolic 65–94; PULSE 85–100; RESP 18–85; O2SAT 90–91
[2024-05-21] MEDS: hydrALAZINE 25 MG Tablet PO ×3 (05:44→20:46)
[2024-05-21] MEDS: Ensure Plus High Protein 120 ML LIQUID PO ×3 (10:16→16:47)
[2024-05-21] MEDS: Acetaminophen 500 MG Tablet 1000 MG PO (10:16)
[2024-05-21] MEDS: Potassium Chloride Oral Tablet 20 MEQ PO (10:17)
[2024-05-21] MEDS: Losartan Potassium 100 MG Tablet PO (10:18)
[2024-05-21] MEDS: Tolterodine Tartrate 2 MG CAP.SA PO (10:18)
[2024-05-21] MEDS: Finasteride 5 MG Tablet PO (10:19)
[2024-05-21] MEDS: Rivaroxaban 10 MG Tablet PO (10:19)
[2024-05-21] MEDS: Nystatin Powder 15gm Bottle 1 APPLIC TOPICAL ×2 (10:20→20:47)
[2024-05-21] MEDS: MELATONIN 3 MG TABLET PO (20:47)
[2024-05-21] MEDS: Senna/Docusate Sodium 1 Tablet 2 TABLET PO (20:48)
[2024-05-22 05:54] VITALS: BP 156/83; PULSE 72
[2024-05-22 05:56] VITALS: BP 156/83; PULSE 72
[2024-05-22] MEDS: hydrALAZINE 25 MG Tablet PO ×3 (05:56→21:38)
[2024-05-22 06:56] LABS: Anion Gap 5 (5-15); BUN 37 mg/dL (7-18); BUN/Creat Ratio 35.6 RATIO (10-20); Calcium,Total 8.8 mg/dL (8.5-10.1); Chloride 108 mmol/L (98-107); Creatinine, Serum 1.04 mg/dL (0.70-1.30); EST Glomerular Filtration Rate 72 mL/min (>60); Est Glom Filt Rate - Afr Amer 87 mL/min (>60); Estimated Creatinine Clearance 54.93 ml/min; Glucose 96 mg/dL (74-106); Potassium 3.6 mmol/L (3.5-5.1); Sodium Level 140 mmol/L (136-145)
[2024-05-22] MEDS: Potassium Chloride Oral Tablet 20 MEQ PO (10:27)
[2024-05-22] MEDS: Ensure Plus High Protein 120 ML LIQUID PO ×3 (10:27→17:01)
[2024-05-22] MEDS: Finasteride 5 MG Tablet PO (10:28)
[2024-05-22] MEDS: Senna/Docusate Sodium 1 Tablet 2 TABLET PO ×2 (10:28→21:39)
[2024-05-22] MEDS: Nystatin Powder 15gm Bottle 1 APPLIC TOPICAL ×2 (10:28→21:39)
[2024-05-22] MEDS: Losartan Potassium 100 MG Tablet PO (10:28)
[2024-05-22] MEDS: Rivaroxaban 10 MG Tablet PO (10:28)
[2024-05-22] MEDS: Tolterodine Tartrate 2 MG CAP.SA PO (10:28)
[2024-05-22 14:01] VITALS: BP 132/88; PULSE 105; RESP 17; TEMP 36.8; O2SAT 98
[2024-05-22 20:00] VITALS: PULSE 84; O2SAT 93
[2024-05-22 21:36] VITALS: BP 158/90; PULSE 80
[2024-05-22 21:38] VITALS: BP 158/90; PULSE 80
[2024-05-22] MEDS: MELATONIN 3 MG TABLET PO (21:38)
[2024-05-23] VITALS (7 sets, daily range): BP systolic 135–155; BP diastolic 80–90; PULSE 77–85; RESP 22; TEMP 36.8; O2SAT 93–95
[2024-05-23] MEDS: hydrALAZINE 25 MG Tablet PO ×3 (05:37→21:29)
[2024-05-23] MEDS: Potassium Chloride Oral Tablet 20 MEQ PO (09:13)
[2024-05-23] MEDS: Ensure Plus High Protein 120 ML LIQUID PO ×3 (09:13→17:01)
[2024-05-23] MEDS: Nystatin Powder 15gm Bottle 1 APPLIC TOPICAL ×2 (09:15→21:28)
[2024-05-23] MEDS: Finasteride 5 MG Tablet PO (09:16)
[2024-05-23] MEDS: Tolterodine Tartrate 2 MG CAP.SA PO (09:16)
[2024-05-23] MEDS: Senna/Docusate Sodium 1 Tablet 2 TABLET PO ×2 (09:16→21:27)
[2024-05-23] MEDS: Rivaroxaban 10 MG Tablet PO (09:16)
[2024-05-23] MEDS: Losartan Potassium 100 MG Tablet PO (09:16)
[2024-05-23] MEDS: Acetaminophen 500 MG Tablet 1000 MG PO (16:20)
[2024-05-23] MEDS: MELATONIN 3 MG TABLET PO (21:27)
[2024-05-24 05:45] VITALS: BP 160/92; PULSE 73
[2024-05-24] MEDS: hydrALAZINE 25 MG Tablet PO ×3 (05:45→21:21)
[2024-05-24] MEDS: Losartan Potassium 100 MG Tablet PO (08:33)
[2024-05-24] MEDS: Tolterodine Tartrate 2 MG CAP.SA PO (08:33)
[2024-05-24] MEDS: Finasteride 5 MG Tablet PO (08:33)
[2024-05-24] MEDS: Rivaroxaban 10 MG Tablet PO (08:33)
[2024-05-24] MEDS: Senna/Docusate Sodium 1 Tablet 2 TABLET PO ×2 (08:33→21:21)
[2024-05-24] MEDS: Potassium Chloride Oral Tablet 20 MEQ PO (08:33)
[2024-05-24] MEDS: Nystatin Powder 15gm Bottle 1 APPLIC TOPICAL ×2 (08:34→21:21)
[2024-05-24] MEDS: Ensure Plus High Protein 120 ML LIQUID PO ×3 (08:36→17:12)
[2024-05-24 09:43] VITALS: BP 146/87; PULSE 90; RESP 18; O2SAT 94
[2024-05-24 13:53] VITALS: BP 141/87; PULSE 91
[2024-05-24 13:55] VITALS: BP 141/87; PULSE 91; RESP 18; O2SAT 93
[2024-05-24 19:50] VITALS: PULSE 84; O2SAT 94
[2024-05-24 21:21] VITALS: BP 133/87; PULSE 84
[2024-05-24] MEDS: MELATONIN 3 MG TABLET PO (21:21)
[2024-05-25 05:45] VITALS: BP 153/96; PULSE 74; O2SAT 93
[2024-05-25] MEDS: hydrALAZINE 25 MG Tablet PO ×3 (05:45→21:14)
[2024-05-25] MEDS: Losartan Potassium 100 MG Tablet PO (07:56)
[2024-05-25] MEDS: Potassium Chloride Oral Tablet 20 MEQ PO (07:56)
[2024-05-25] MEDS: Ensure Plus High Protein 120 ML LIQUID PO ×3 (07:56→17:43)
[2024-05-25] MEDS: Finasteride 5 MG Tablet PO (07:56)
[2024-05-25] MEDS: Senna/Docusate Sodium 1 Tablet 2 TABLET PO ×2 (07:56→21:16)
[2024-05-25] MEDS: Nystatin Powder 15gm Bottle 1 APPLIC TOPICAL ×2 (07:57→21:15)
[2024-05-25] MEDS: Tolterodine Tartrate 2 MG CAP.SA PO (07:57)
[2024-05-25] MEDS: Rivaroxaban 10 MG Tablet PO (07:57)
[2024-05-25 08:00] VITALS: BP 163/99; PULSE 89; RESP 16; O2SAT 95
[2024-05-25 13:32] VITALS: BP 124/96; PULSE 108
[2024-05-25 15:59] VITALS: TEMP 35.8
[2024-05-25 21:11] VITALS: BP 160/91; PULSE 88
[2024-05-25 21:14] VITALS: BP 160/91; PULSE 88
[2024-05-25] MEDS: MELATONIN 3 MG TABLET PO (21:15)
[2024-05-26] VITALS (7 sets, daily range): BP systolic 127–161; BP diastolic 77–93; PULSE 68–102; RESP 18; TEMP 36.5; O2SAT 92–95; BMI 27.8
[2024-05-26] MEDS: Acetaminophen 500 MG Tablet 1000 MG PO ×2 (02:33→21:37)
[2024-05-26] MEDS: hydrALAZINE 25 MG Tablet PO (05:05)
[2024-05-26] MEDS: Potassium Chloride Oral Tablet 20 MEQ PO (09:36)
[2024-05-26] MEDS: Ensure Plus High Protein 120 ML LIQUID PO ×3 (09:36→16:54)
[2024-05-26] MEDS: Rivaroxaban 10 MG Tablet PO (09:37)
[2024-05-26] MEDS: Losartan Potassium 100 MG Tablet PO (09:37)
[2024-05-26] MEDS: Senna/Docusate Sodium 1 Tablet 2 TABLET PO ×2 (09:37→21:34)
[2024-05-26] MEDS: Nystatin Powder 15gm Bottle 1 APPLIC TOPICAL ×2 (09:37→21:33)
[2024-05-26] MEDS: Tolterodine Tartrate 2 MG CAP.SA PO (09:37)
[2024-05-26] MEDS: Finasteride 5 MG Tablet PO (09:37)
[2024-05-26] MEDS: hydrALAZINE 50 MG Tablet PO ×2 (13:49→21:34)
[2024-05-26] MEDS: MELATONIN 3 MG TABLET PO (21:34)
[2024-05-27] VITALS (9 sets, daily range): BP systolic 131–146; BP diastolic 8–90; PULSE 71–92; RESP 20; TEMP 36.7; O2SAT 93–95
[2024-05-27] MEDS: hydrALAZINE 50 MG Tablet PO ×3 (05:18→21:13)
[2024-05-27 06:08] LABS: Absolute Lymphocyte Count 1.47 X10^3/uL (0.83-4.51); Basophil# 0.02 X10^3/uL; Basophil% 0.3 % (0-1); Eosinophil# 0.03 X10^3/uL; Eosinophils% 0.5 % (0-5); Hematocrit 43.9 % (40-54); Hemoglobin 14.6 g/dL (13.0-16.5); Lymphocyte # 1.47 X10^3/ul (0.83-4.51); Lymphocyte % 23.2 % (19-41); Mean Corp Hgb Conc 33.3 g/dL (32-36); Mean Corpuscular Volume 90.1 fL (80-94); Mean Platelet Vol. 11.8 fl (6.2-12.0); Monocyte# 1.78 X10^3/uL; Monocyte% 28.1 % (0-10); NRBC Flagged by Analyzer 0 % (0-5); Neutrophil # 2.95 X10^3/uL (2.7-7.7); Neutrophil % 46.6 % (47-70); POSITIVE DIFFERENTIAL YES; Platelet Count 151 K/mm3 (150-450); RBC Distribution Width CV 13.2 % (11.6-14.6); RBC Distribution Width SD 43.5 fl (35.1-43.9); Red Blood Count 4.87 M/mm3 (4.6-6.2); White Blood Count 6.3 K/mm3 (4.4-11.0)
[2024-05-27 06:27] LABS: Differential Indicated SCAN CRITERIA MET
[2024-05-27 06:46] LABS: ALB/GLOB Ratio 0.8 RATIO (0.9-2.4); AST(SGOT) 20 U/L (15-37); Alanine Aminotransfer ALT/SGPT 35 U/L (16-61); Albumin, Serum 2.7 g/dL (3.2-5.0); Alkaline Phosphatase 71 U/L (45-117); Anion Gap 7 (5-15); BUN 31 mg/dL (7-18); BUN/Creat Ratio 34.4 RATIO (10-20); Calcium,Total 8.9 mg/dL (8.5-10.1); Chloride 107 mmol/L (98-107); EST Glomerular Filtration Rate 84 mL/min (>60); Est Glom Filt Rate - Afr Amer 102 mL/min (>60); Estimated Creatinine Clearance 63.47 ml/min; Globulin 3.4 g/dL (2.2-4.2); Glucose 92 mg/dL (74-106); Potassium 3.9 mmol/L (3.5-5.1); Protein, Total 6.1 g/dL (6.4-8.2); Sodium Level 138 mmol/L (136-145)
[2024-05-27 07:43] LABS: Differential Comment SCANNED; Platelet Estimate ADEQUATE (ADEQ); Red Cell Morphology NORM C+C NORMAL (NORM C&C)
[2024-05-27] MEDS: Potassium Chloride Oral Tablet 20 MEQ PO (09:08)
[2024-05-27] MEDS: Finasteride 5 MG Tablet PO (09:09)
[2024-05-27] MEDS: Nystatin Powder 15gm Bottle 1 APPLIC TOPICAL ×2 (09:09→21:11)
[2024-05-27] MEDS: Tolterodine Tartrate 2 MG CAP.SA PO (09:09)
[2024-05-27] MEDS: Losartan Potassium 100 MG Tablet PO (09:09)
[2024-05-27] MEDS: Senna/Docusate Sodium 1 Tablet 2 TABLET PO ×2 (09:09→21:14)
[2024-05-27] MEDS: Rivaroxaban 10 MG Tablet PO (09:12)
[2024-05-27] MEDS: Ensure Plus High Protein 120 ML LIQUID PO ×3 (09:12→17:01)
[2024-05-27] MEDS: Tuberculin,Purif.prot.deriv. 50 TU/ML Vial 0.1 ML ID (09:15)
[2024-05-27 14:28] LABS: Pathologist Review Reviewed
[2024-05-27] MEDS: MELATONIN 3 MG TABLET PO (21:14)
[2024-05-27] MEDS: Acetaminophen 500 MG Tablet 1000 MG PO (21:19)
[2024-05-28 05:05] VITALS: BP 152/88; PULSE 68
[2024-05-28 05:08] VITALS: BP 152/88; PULSE 68
[2024-05-28] MEDS: hydrALAZINE 50 MG Tablet PO ×3 (05:08→19:48)
[2024-05-28 08:28] VITALS: BP 166/91; PULSE 86; RESP 18; TEMP 36.3; O2SAT 95
[2024-05-28] MEDS: Potassium Chloride Oral Tablet 20 MEQ PO (08:30)
[2024-05-28] MEDS: Losartan Potassium 100 MG Tablet PO (08:31)
[2024-05-28] MEDS: Rivaroxaban 10 MG Tablet PO (08:32)
[2024-05-28] MEDS: Senna/Docusate Sodium 1 Tablet 2 TABLET PO ×2 (08:32→19:49)
[2024-05-28] MEDS: Finasteride 5 MG Tablet PO (08:32)
[2024-05-28] MEDS: Nystatin Powder 15gm Bottle 1 APPLIC TOPICAL ×2 (08:33→19:49)
[2024-05-28] MEDS: Tolterodine Tartrate 2 MG CAP.SA PO (08:33)
[2024-05-28] MEDS: Ensure Plus High Protein 120 ML LIQUID PO ×2 (08:35→12:00)
[2024-05-28 13:35] VITALS: BP 150/85; PULSE 91
[2024-05-28 13:37] VITALS: PULSE 91
[2024-05-28 19:48] VITALS: BP 146/76; PULSE 87
[2024-05-28] MEDS: MELATONIN 3 MG TABLET PO (19:48)
[2024-05-29 06:43] VITALS: BP 159/97; PULSE 75
[2024-05-29] MEDS: hydrALAZINE 50 MG Tablet PO ×3 (06:43→20:30)
[2024-05-29 08:00] VITALS: BP 142/85; PULSE 95; RESP 17; TEMP 36.3; O2SAT 98
[2024-05-29] MEDS: Rivaroxaban 10 MG Tablet PO (08:05)
[2024-05-29] MEDS: Ensure Plus High Protein 120 ML LIQUID PO ×3 (08:06→17:53)
[2024-05-29] MEDS: Losartan Potassium 100 MG Tablet PO (08:06)
[2024-05-29] MEDS: Tolterodine Tartrate 2 MG CAP.SA PO (08:06)
[2024-05-29] MEDS: Finasteride 5 MG Tablet PO (08:06)
[2024-05-29] MEDS: Potassium Chloride Oral Tablet 20 MEQ PO (08:06)
[2024-05-29] MEDS: Senna/Docusate Sodium 1 Tablet 2 TABLET PO (08:06)
[2024-05-29] MEDS: Nystatin Powder 15gm Bottle 1 APPLIC TOPICAL ×2 (08:06→20:31)
[2024-05-29 13:50] VITALS: BP 144/90; PULSE 101
[2024-05-29 13:51] VITALS: PULSE 101
[2024-05-29 20:30] VITALS: BP 129/91; PULSE 99
[2024-05-29] MEDS: MELATONIN 3 MG TABLET PO (20:31)
[2024-05-30 06:00] VITALS: BP 163/100; PULSE 74; RESP 16; TEMP 36.9; O2SAT 94
[2024-05-30 06:52] VITALS: BP 163/100; PULSE 74
[2024-05-30] MEDS: hydrALAZINE 50 MG Tablet PO (06:52)
[2024-05-30 08:30] VITALS: BP 142/68; PULSE 89; RESP 18; TEMP 36.6; O2SAT 93
[2024-05-30] MEDS: Ensure Plus High Protein 120 ML LIQUID PO (08:32)
[2024-05-30] MEDS: Nystatin Powder 15gm Bottle 1 APPLIC TOPICAL (08:32)
[2024-05-30] MEDS: Finasteride 5 MG Tablet PO (08:33)
[2024-05-30] MEDS: Rivaroxaban 10 MG Tablet PO (08:33)
[2024-05-30] MEDS: Potassium Chloride Oral Tablet 20 MEQ PO (08:33)
[2024-05-30] MEDS: Tolterodine Tartrate 2 MG CAP.SA PO (08:34)
[2024-05-30] MEDS: Losartan Potassium 100 MG Tablet PO (08:34)
[2024-05-30] MEDS: Senna/Docusate Sodium 1 Tablet 2 TABLET PO (08:34)
[2024-05-30 11:32] VITALS: BP 149/88; PULSE 84; RESP 18; TEMP 36.5; O2SAT 97
== END 2024-05-30 11:45 | disposition intermediate care facility (04) | DRG 552 ==
PROVIDERS: Admitting Provider Family Medicine Geriatric Medicine; PCP Internal Medicine; Visit Provider Family Medicine Geriatric Medicine
DX: M50.31 Other cervical disc degeneration, high cervical region (principal); E78.00 Pure hypercholesterolemia, unspecified; I10 Essential (primary) hypertension; M48.00 Spinal stenosis, site unspecified; E87.6 Hypokalemia; G47.00 Insomnia, unspecified; R79.89 Other specified abnormal findings of blood chemistry; Z87.891 Personal history of nicotine dependence; N32.81 Overactive bladder; R32 Unspecified urinary incontinence; M51.369 Other intervertebral disc degeneration, lumbar region without mention of lumbar back pain or lower extremity pain; Z79.899 Other long term (current) drug therapy; Z79.82 Long term (current) use of aspirin; N40.1 Benign prostatic hyperplasia with lower urinary tract symptoms
CPT/HCPCS: 36415; 80048; 80053; 85025; 87811; 92523; 97110; 97116; 97129; 97130; 97162; 97166; 97530; 97535; 97802

== ENCOUNTER → 2024-06-01 | Outpatient (REF) | payer MEDICARE, SELFPAY ==
[2024-06-01 08:23] LABS: Absolute Lymphocyte Count 1.01 X10^3/uL (0.83-4.51); Absolute Neutrophil Count 2.9 X10^3/uL (2.0-7.7); Basophil# 0.02 X10^3/uL; Basophil% 0.3 % (0-1); Eosinophil# 0.06 X10^3/uL; Hematocrit 41.3 % (40-54); Hemoglobin 14.1 g/dL (13.0-16.5); Lymphocyte # 1.01 X10^3/ul (0.83-4.51); Lymphocyte % 17.3 % (19-41); Mean Corp Hgb Conc 34.1 g/dL (32-36); Mean Corpuscular Hgb 30.8 pg (27.0-32.0); Mean Corpuscular Volume 90.2 fL (80-94); Mean Platelet Vol. 11.4 fl (6.2-12.0); Monocyte% 30.8 % (0-10); NRBC Flagged by Analyzer 0 % (0-5); Neutrophil # 2.85 X10^3/uL (2.7-7.7); Neutrophil % 48.9 % (47-70); POSITIVE DIFFERENTIAL YES; Platelet Count 171 K/mm3 (150-450); RBC Distribution Width SD 42.7 fl (35.1-43.9); Red Blood Count 4.58 M/mm3 (4.6-6.2); White Blood Count 5.8 K/mm3 (4.4-11.0)
[2024-06-01 08:24] LABS: Differential Indicated SCAN CRITERIA MET
[2024-06-01 09:18] LABS: ALB/GLOB Ratio 0.8 RATIO (0.9-2.4); AST(SGOT) 16 U/L (15-37); Alanine Aminotransfer ALT/SGPT 29 U/L (16-61); Albumin, Serum 2.6 g/dL (3.2-5.0); Alkaline Phosphatase 68 U/L (45-117); Anion Gap 6 (5-15); BUN 24 mg/dL (7-18); BUN/Creat Ratio 31.3 RATIO (10-20); Calcium,Total 8.7 mg/dL (8.5-10.1); Chloride 109 mmol/L (98-107); Cholesterol 151 mg/dL (200); Creatinine, Serum 0.77 mg/dL (0.70-1.30); EST Glomerular Filtration Rate 102 mL/min (>60); Est Glom Filt Rate - Afr Amer 123 mL/min (>60); Globulin 3.3 g/dL (2.2-4.2); Glucose 84 mg/dL (74-106); High Density Lipoprotein 42 mg/dL; Magnesium 1.9 mg/dL (1.6-2.6); Potassium 3.6 mmol/L (3.5-5.1); Protein, Total 5.9 g/dL (6.4-8.2); Sodium Level 140 mmol/L (136-145); Triglycerides 96 mg/dL; Very Low Density Lipoprotein 19 mg/dL (5-40)
[2024-06-01 13:46] LABS: Vitamin B12 998 pg/mL (211-911); Vitamin D,25 Hydroxy 33.5 ng/mL
== END ==
LOC: OLS.SW 04:00
PROVIDERS: PCP Internal Medicine; Referring Provider Internal Medicine; Visit Provider Internal Medicine
DX: I10 Essential (primary) hypertension (principal); E78.5 Hyperlipidemia, unspecified; E03.9 Hypothyroidism, unspecified; D69.6 Thrombocytopenia, unspecified; S06.5XAD Traumatic subdural hemorrhage with loss of consciousness status unknown, subsequent encounter; S82.842D Displaced bimalleolar fracture of left lower leg, subsequent encounter for closed fracture with routine healing; E55.9 Vitamin D deficiency, unspecified; Z79.899 Other long term (current) drug therapy
CPT/HCPCS: 36415; 80053; 80061; 82306; 82607; 83735; 84443; 85025

== ENCOUNTER → 2024-06-08 | Outpatient (REF) | payer MEDICARE, SELFPAY ==
[2024-06-08 08:14] LABS: Hematocrit 41.8 % (40-54); Hemoglobin 13.7 g/dL (13.0-16.5); Mean Corp Hgb Conc 32.8 g/dL (32-36); Mean Corpuscular Hgb 29.9 pg (27.0-32.0); Mean Corpuscular Volume 91.3 fL (80-94); Mean Platelet Vol. 11.7 fl (6.2-12.0); Platelet Count 150 K/mm3 (150-450); RBC Distribution Width CV 12.9 % (11.6-14.6); RBC Distribution Width SD 42.9 fl (35.1-43.9); Red Blood Count 4.58 M/mm3 (4.6-6.2); White Blood Count 5.5 K/mm3 (4.4-11.0)
[2024-06-08 08:22] LABS: Anion Gap 5 (5-15); BUN 25 mg/dL (7-18); BUN/Creat Ratio 25.7 RATIO (10-20); Calcium,Total 8.9 mg/dL (8.5-10.1); Chloride 107 mmol/L (98-107); Creatinine, Serum 0.97 mg/dL (0.70-1.30); EST Glomerular Filtration Rate 77 mL/min (>60); Est Glom Filt Rate - Afr Amer 94 mL/min (>60); Glucose 86 mg/dL (74-106); Magnesium 2.1 mg/dL (1.6-2.6); Sodium Level 140 mmol/L (136-145)
== END ==
LOC: OLS.SW 04:00
PROVIDERS: PCP Internal Medicine; Referring Provider Internal Medicine; Visit Provider Internal Medicine
DX: R79.89 Other specified abnormal findings of blood chemistry (principal)
CPT/HCPCS: 36415; 80048; 83735; 85027

== ENCOUNTER → 2024-06-15 05:00 | Outpatient (REF) | payer MEDICARE, SELFPAY ==
[2024-06-15 08:37] LABS: Hematocrit 41.8 % (40-54); Hemoglobin 13.9 g/dL (13.0-16.5); Mean Corp Hgb Conc 33.3 g/dL (32-36); Mean Corpuscular Volume 90.3 fL (80-94); Mean Platelet Vol. 11.7 fl (6.2-12.0); Platelet Count 117 K/mm3 (150-450); RBC Distribution Width CV 12.9 % (11.6-14.6); RBC Distribution Width SD 42.1 fl (35.1-43.9); Red Blood Count 4.63 M/mm3 (4.6-6.2); White Blood Count 6.7 K/mm3 (4.4-11.0)
[2024-06-15 09:40] LABS: Anion Gap 8 (5-15); BUN 18 mg/dL (7-18); Calcium,Total 8.8 mg/dL (8.5-10.1); Chloride 105 mmol/L (98-107); Creatinine, Serum 0.95 mg/dL (0.70-1.30); EST Glomerular Filtration Rate 80 mL/min (>60); Est Glom Filt Rate - Afr Amer 97 mL/min (>60); Glucose 77 mg/dL (74-106); Potassium 3.6 mmol/L (3.5-5.1); Sodium Level 138 mmol/L (136-145)
== END ==
LOC: OLS.SW 05:00
PROVIDERS: PCP Internal Medicine; Visit Provider Internal Medicine
DX: I10 Essential (primary) hypertension (principal); R79.89 Other specified abnormal findings of blood chemistry; M48.00 Spinal stenosis, site unspecified; Z86.73 Personal history of transient ischemic attack (TIA), and cerebral infarction without residual deficits
CPT/HCPCS: 36415; 80048; 83735; 85027

== ENCOUNTER → 2024-07-13 04:55 | Outpatient (REF) | payer MEDICARE, SELFPAY ==
[2024-07-13 09:09] LABS: Hemoglobin 13.4 g/dL (13.0-16.5); Mean Corp Hgb Conc 32.7 g/dL (32-36); Mean Corpuscular Hgb 29.5 pg (27.0-32.0); Mean Corpuscular Volume 90.3 fL (80-94); Mean Platelet Vol. 11.6 fl (6.2-12.0); Platelet Count 119 K/mm3 (150-450); RBC Distribution Width CV 13.6 % (11.6-14.6); RBC Distribution Width SD 44.9 fl (35.1-43.9); Red Blood Count 4.54 M/mm3 (4.6-6.2); White Blood Count 5.8 K/mm3 (4.4-11.0)
[2024-07-13 09:33] LABS: Anion Gap 5 (5-15); BUN 24 mg/dL (7-18); BUN/Creat Ratio 27.2 RATIO (10-20); Calcium,Total 8.9 mg/dL (8.5-10.1); Chloride 106 mmol/L (98-107); Creatinine, Serum 0.88 mg/dL (0.70-1.30); EST Glomerular Filtration Rate 87 mL/min (>60); Est Glom Filt Rate - Afr Amer 105 mL/min (>60); Glucose 78 mg/dL (74-106); Potassium 3.7 mmol/L (3.5-5.1); Sodium Level 138 mmol/L (136-145)
== END ==
LOC: OLS.SW 04:55
PROVIDERS: PCP Internal Medicine; Visit Provider Internal Medicine
DX: M48.00 Spinal stenosis, site unspecified (principal); M79.89 Other specified soft tissue disorders; K57.30 Diverticulosis of large intestine without perforation or abscess without bleeding; I10 Essential (primary) hypertension
CPT/HCPCS: 36415; 80048; 85027

== ENCOUNTER → 2024-10-05 | Outpatient (REF) | payer MEDICARE, MEDICAID, SELFPAY ==
[2024-10-05 09:53] LABS: Absolute Lymphocyte Count 1.21 X10^3/uL (0.83-4.51); Absolute Neutrophil Count 1.2 X10^3/uL (2.0-7.7); Basophil# 0.01 X10^3/uL; Basophil% 0.3 % (0-1); Eosinophil# 0.02 X10^3/uL; Eosinophils% 0.6 % (0-5); Hematocrit 39.8 % (40-54); Hemoglobin 13.1 g/dL (13.0-16.5); Lymphocyte # 1.21 X10^3/ul (0.83-4.51); Lymphocyte % 34.3 % (19-41); Mean Corp Hgb Conc 32.9 g/dL (32-36); Mean Corpuscular Hgb 30.5 pg (27.0-32.0); Mean Corpuscular Volume 92.6 fL (80-94); Mean Platelet Vol. 12.2 fl (6.2-12.0); Monocyte# 1.08 X10^3/uL; Monocyte% 30.6 % (0-10); NRBC Flagged by Analyzer 0 % (0-5); Neutrophil # 1.18 X10^3/uL (2.7-7.7); Neutrophil % 33.4 % (47-70); POSITIVE COUNT YES; Platelet Count 92 K/mm3 (150-450); RBC Distribution Width CV 13.7 % (11.6-14.6); RBC Distribution Width SD 46.7 fl (35.1-43.9); White Blood Count 3.5 K/mm3 (4.4-11.0)
[2024-10-05 09:58] LABS: Differential Indicated SCAN CRITERIA MET
[2024-10-05 10:15] LABS: ALB/GLOB Ratio 1.4 RATIO (0.9-2.4); AST(SGOT) 19 U/L (<=37); Alanine Aminotransfer ALT/SGPT 7 U/L (<=46); Albumin, Serum 3.6 g/dL (3.4-4.8); Alkaline Phosphatase 74 U/L (40-129); Anion Gap 10 (5-15); BUN 24 mg/dL (4-19); BUN/Creat Ratio 25.3 RATIO (10-20); Calcium,Total 8.9 mg/dL (7.6-11.0); Carbon Dioxide 22.4 mmol/L (21.0-32.0); Chloride 106 mmol/L (98-108); Creatinine, Serum 0.96 mg/dL (0.70-1.20); EST Glomerular Filtration Rate 76 (>60); Globulin 2.5 g/dL (2.2-4.2); Glucose 81 mg/dL (70-99); Magnesium 2.1 mg/dL (1.5-2.2); PSA,Total - Annual Screen 0.56 ng/mL (0.02-4.00); Potassium 4.2 mmol/L (3.3-5.1); Protein, Total 6.1 g/dL (5.9-8.4); Sodium Level 139 mmol/L (133-145); Total Bilirubin 0.68 mg/dL (0.00-1.30); Vitamin D,25 Hydroxy 31.6 ng/mL (30-100)
[2024-10-05 10:44] LABS: Platelet Estimate SLT DEC (ADEQ)
== END ==
LOC: OLS.SWAL 05:00
PROVIDERS: PCP Internal Medicine; Visit Provider Internal Medicine
DX: I10 Essential (primary) hypertension (principal); N40.1 Benign prostatic hyperplasia with lower urinary tract symptoms; E78.00 Pure hypercholesterolemia, unspecified; Z12.5 Encounter for screening for malignant neoplasm of prostate
CPT/HCPCS: 36415; 80053; 82306; 83735; 84153; 84443; 85025; G0103

== ENCOUNTER → 2024-11-27 05:00 | Outpatient (REF) | payer MEDICARE, MEDICAID, SELFPAY ==
[2024-11-27 06:59] LABS: Bacteria 0 SEEN /hpf (None Seen); Mucous, Urine 0 SEEN /hpf (<or=2+); Squamous Epithelial Cells - UA 0 SEEN /hpf (0-5)
[2024-11-27 07:24] LABS: Anion Gap 9 (5-15); BUN 24 mg/dL (4-19); BUN/Creat Ratio 26.6 RATIO (10-20); Calcium,Total 9.1 mg/dL (7.6-11.0); Carbon Dioxide 25.3 mmol/L (21.0-32.0); Chloride 103 mmol/L (98-108); Creatinine, Serum 0.91 mg/dL (0.70-1.20); EST Glomerular Filtration Rate 81 (>60); Glucose 81 mg/dL (70-99); Sodium Level 137 mmol/L (133-145)
[2024-11-27 07:57] LABS: Color, Urine Yellow (Yellow); Glucose, Dipstick Normal (Normal); Ketone-Dipstick Negative (Negative); Leukocyte Esterase-Dipstick 100 /ul (Negative); Nitrite-Dipstick Negative (Negative); Occult Blood-Urine 250 /ul (Negative); Protein-Dipstick 100 mg/dl (Negative); Urine Bilirubin Dipstick Negative (Negative); Urine Clarity Turbid (Clear); Urine Urobilinogen Normal (Normal)
[2024-11-27 08:49] LABS: Red Blood Cells-Urine > 100 SEEN /hpf (0-5); White Blood Cells 10-25 SEEN /hpf (0-5)
== END ==
LOC: OLS.SWAL 05:00
PROVIDERS: PCP Internal Medicine; Visit Provider Internal Medicine
DX: N39.0 Urinary tract infection, site not specified (principal)
CPT/HCPCS: 36415; 80048; 81001; 87077; 87086; 87088; 87186

== ENCOUNTER 2024-11-30 14:08 | Emergency (ER) | payer MEDICARE, MEDICAID, SELFPAY ==
[2024-11-30 14:13] VITALS: BP 176/101; PULSE 61; RESP 18; TEMP 36.7; O2SAT 99; BMI 28.5
--- NOTE | 2024-11-30 14:15 | EDS_ITS ---
HPI History of Present Illness Chief Complaint: Head Injury Narrative Narrative: 89-year-old male presents via EMS status post fall with injury to head. He does take anticoagulants in the form of Xarelto. He was at his assisted living facility, sweeping off his porch, and he fell backwards. He struck the back of his head. He sustained an abrasion to the back of his head, but given the fact that he is on anticoagulants, was sent to the emergency department for evaluation. He denies headache or neck pain. Denies loss of consciousness. No other injuries. Tetanus Immunization: Unknown [facility] Medical History Insomnia Elevated troponin Spinal stenosis TIA (transient ischemic attack) Diverticulosis Nonallergic rhinitis BPH (benign prostatic hyperplasia) Hypercholesterolemia Hypertension Home Medications ?Medication ?Instructions ?Recorded ?Last Taken ?Type finasteride 5 mg tablet 5 mg PO DAILY Bladder 05/19/24 History melatonin 3 mg capsule 3 mg PO DAILY Sleep 06/21/23 05/14/24 History Lactobacillus acidophilus 250 500 mmu cells PO DAILY P robiotic 06/27/23 Unknown History million cell capsule (Probiotic Acidophilus) acetaminophen 500 mg capsule 1,000 mg PO Q6H PRN pain 06/27/23 Unknown History menthol 2 % topical gel (Blue Gel) 1 applic topical TI D PRN PRN Pain 07/16/23 Unknown Rx Score 1-10 #0 grams aspirin 81 mg capsule 81 mg PO DAILY Heart health 05/15/24 05/19/24 History food supplemt, lactose-reduced 120 ml PO TIDCM #120 mL 05/29/24 Unknown Rx 0.08 gram-1.5 kcal/mL oral liquid (Ensure Plus High Protein) losartan 100 mg tablet 100 mg PO DAILY #1 TAB 05/29 Unknown Rx potassium chloride 20 mEq 20 meq PO DAILYCM #1 TAB Unknown Rx tablet,extended release(part/cryst) rivaroxaban 10 mg tablet (Xarelto) 10 mg PO DAILY #1 T AB 05/29/24 Unknown Rx sennosides 8.6 mg-docusate sodium 2 tab PO BID #1 TAB 05/29/24 Unknown Rx 50 mg tablet (Stimulant Laxative Plus) tolterodine 2 mg capsule,extended 2 mg PO DAILY #1 cap 05/29/24 Unknown Rx release 24 hr Allergy/AdvReac Type Severity Reaction Status Date / Time salicylic acid Allergy Swelling Verified 11/30/24 14:11 Family History Father Cancer Prostate cancer Mother Cancer Liver cancer Sister Hypertension Hyperlipidemia Surgical History History of open reduction and internal fixation (ORIF) procedure Social History household members: none housing: other details: Mobile home pets and animals: Yes (Dog) Smoking Status: Former smoker pack-years: 3 alcohol intake: current alcohol intake frequency: a few times a month Alcohol type: beer details: 1 beer a week. substance use type: marijuana and other details: Has used marijuana in the past but not currently. ROS ROS ED ROS Narrative Review of symptoms positive for abrasion on occiput of head. No neck pain. No loss of consciousness. Denies other injuries. No headache. EXAM Physical Exam Narrative Exam Narrative: GCS 15. ABCs are intact. Head is normocephalic. Positive abrasion to the occiput of head. Neck soft and supple without meningismus. No vertebral point tenderness or bony step-off. Cardiovascular examination regular rate and rhythm. Lungs are clear to auscultation bilaterally. Abdomen is soft and nontender with normoactive bowel sounds. Neurological examination is nonfocal, nonlateralizing. He is able to raise his arms above his head without difficu lty. He is awake, alert, interactive, oriented to person and place but not year. Const Vital Signs: 11/30/24 14:12 11/30/24 14:13 11/30/24 15:33 Temperature 98.1 F Temperature Source Oral Pulse Rate 61 61 Respiratory Rate 18 Respiratory Effort Normal Non-Labored Respiratory Depth Normal Respiratory Pattern Normal Blood Pressure 176/101 H 169/89 H Blood Pressure Mean 126 115 Pulse Ox 99 Oxygen Delivery Method Room Air MDM MDM MDM Narrative Medical decision making narrative: The differential diagnosis includes but not limited to intracranial hemorrhage versus closed head injury as the patient is on anticoagulation. Although he denies neck pain, given his age and mild confusion/disorientation to year, CT of the brain and of the cervical spine will be obtained to rule out fracture and intracranial hemorrhage. I did review his prior records and immunizations, and he had a Tdap in 2022, within the last 5 years. I reviewed the radiology report of the CT of the brain. There is a large left parietal scalp hematoma without underlying acute calvarial fracture. CT of the cervical spine shows no acute cervical compression fracture or subluxation, there is DJD. Of note, on the CT of the brain they comment on right orbital globe hyperdensity may reflect vitreous hemorrhage as well as opacification of the right mastoid air cells may reflect mastoiditis. I do not feel that clinically the patient has mastoiditis. 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 He did want his sister called, and I attempted to contact her twice, and additionally I tried to leave a message, but the memory was full on her answering device. At this point in time, I do not feel that he requires transfer or admission. I feel he can be discharged to follow-up as an outpatient with his physicians. Disposition is discharged in stable condition. History & Record Review Discussion w/independent historian: Patient Radiography Diagnostic Testing: Clinical Impression(s) from Imaging Studies Brain CT 11/30/24 14:15 IMPRESSION: Large left parietal scalp hematoma without underlying acute calvarial fracture. Right orbital globe hyperdensity may reflect vitreous hemorrhage. Mild ventriculomegaly may reflect mild hydrocephalus. No acute intracranial hemorrhage or infarction. Opacification of the right mastoid air cells may reflect mastoiditis. Reading Location: [facility] Cervical Spine CT 11/30/24 14:15 IMPRESSION: No acute cervical compression fracture or subluxations. Moderate to severe multilevel degenerative changes of the cervical spine as above. Reading Location: [facility] Discharge Plan Triage Chief Complaint: Head Injury ED Provider: Kelton Valdivia Dx/Rx/DC Orders Clinical Impression: Fall, Traumatic hematoma of scalp, Abrasion of scalp, Closed head injury Instructions: ED Abrasion, ED Scalp Contusion, ED Head Injury (Adult) Prescriptions: No Action finasteride 5 mg tablet 5 mg PO DAILY melatonin 3 mg capsule 3 mg PO DAILY acetaminophen 500 mg capsule 1,000 mg PO Q6H PRN (Reason: pain) Probiotic Acidophilus 250 million cell capsule 500 mmu cells PO DAILY Patient Comments: states doesnt take qd menthol [Blue Gel] 2 % Gel 1 applic topical TID PRN PRN (Reason: Pain Score 1-10) Qty: 0 0RF aspirin 81 mg capsule 81 mg PO DAILY tolterodine 2 mg Capsule,Extended Release 24hr 2 mg PO DAILY Qty: 1 0RF sennosides-docusate sodium [Stimulant Laxative Plus] 8.6-50 mg Tablet 2 tab PO BID Qty: 1 0RF potassium chloride 20 mEq Tablet,Er Particles/Crystals 20 meq PO DAILYCM Qty: 1 0RF losartan 100 mg Tablet 100 mg PO DAILY Qty: 1 0RF Xarelto 10 mg Tablet 10 mg PO DAILY Qty: 1 0RF Ensure Plus High Protein 0.08 gram-1.5 kcal/mL Liquid 120 ml PO TIDCM Qty: 120 0RF Primary Care Provider: Vadim Deras Referrals: Vadim Deras MD [Primary Care Provider] - Activity Restrictions/Additional Instructions: Return to the emergency department with decreased mental status, new or worsening symptoms. Print Language: Nepali Disposition Disposition: Home, Self Care Discharge Date/Time: 11/30/24 18:04
--- NOTE | 2024-11-30 14:15 | CT_ITS ---
PROCEDURE: BRAIN/HEAD WITHOUT CONTRAST 11/30/2024 REASON FOR EXAM: TRAUMA TECHNIQUE: Head CT without intravenous contrast. Coronal and Sagittal reconstruction series were provided. One or more dose reduction techniques were used (e.g., Automated exposure control, adjustment of the mA and/or kV according to patient size, use of iterative reconstruction technique. RADIATION DOSE SUMMARY: DLP: 741 mGycm COMPARISON: 06/21/2023 FINDINGS: There is no acute infarct, intracranial hemorrhage, or mass effect. No midline shift. Mild ventriculomegaly may reflect mild hydrocephalus. There is moderate chronic microvascular ischemic changes and mild parenchymal volume loss. No acute, depressed calvarial fractures. Large left parietal scalp hematoma. Opacification of the right mastoid air cells may reflect mastoiditis. Right orbital globe increased density may reflect vitreous hemorrhage. CT/Brain/Head without Contrast IMPRESSION: Large left parietal scalp hematoma without underlying acute calvarial fracture. Right orbital globe hyperdensity may reflect vitreous hemorrhage. Mild ventriculomegaly may reflect mild hydrocephalus. No acute intracranial he morrhage or infarction. Opacification of the right mastoid air cells may reflect mastoiditis. Reading Location: [id number]
--- NOTE | 2024-11-30 14:15 | CT_ITS ---
PROCEDURE: SPINE CERVICAL WITHOUT CONTRAS 11/30/2024 REASON FOR EXAM: TRAUMA TECHNIQUE: Cervical spine CT without contrast. Coronal and Sagittal reconstruction series were provided. One or more dose reduction techniques were used (e.g., Automated exposure control, adjustment of the mA and/or kV according to patient size, use of iterative reconstruction technique RADIATION DOSE SUMMARY: DLP: 741 mGycm COMPARISON: 06/21/2023 FINDINGS: No acute compression deformity, fracture, or subluxation. Mild retrolisthesis of C4 on C5. Moderate to severe multilevel degenerative changes with [id number] multilevel foraminal stenosis due to facet hypertrophy and uncovertebral hypertrophy. Moderate multilevel central canal stenosis most prominent at C4-C5 The prevertebral soft tissues are not thickened. Stable calcified 1 cm lesion within the right thyroid gland. Limited sections of the lung apices demonstrate no pneumothorax. CT/Spine Cervical without Contras IMPRESSION: No acute cervical compression fracture or subluxations. Moderate to severe mul tilevel degenerative changes of the cervical spine as above. Reading Location: [id number]
[2024-11-30 15:33] VITALS: BP 169/89; PULSE 61
== END 2024-11-30 18:04 | disposition home or self-care (01) ==
PROVIDERS: Emergency Provider Emergency Medicine; PCP Internal Medicine; Referring Provider Emergency Medicine; Visit Provider Emergency Medicine
DX: S00.03XA Contusion of scalp, initial encounter (principal); Z87.891 Personal history of nicotine dependence; S00.01XA Abrasion of scalp, initial encounter; E78.00 Pure hypercholesterolemia, unspecified; Z79.01 Long term (current) use of anticoagulants; F12.90 Cannabis use, unspecified, uncomplicated; Z86.73 Personal history of transient ischemic attack (TIA), and cerebral infarction without residual deficits; I10 Essential (primary) hypertension; W18.00XA Striking against unspecified object with subsequent fall, initial encounter
CPT/HCPCS: 70450; 72125; 99284

== ENCOUNTER → 2024-12-23 | Outpatient (REF) | payer MEDICARE, MEDICAID, SELFPAY ==
--- OUTSIDE RECORDS SUMMARY | 2024-12-23 04:49 | XMS RPT_ITS | CCD ---
Author Organization [facility] Care Team Providers Care Corporate Counsel Name Role Phone Vadim Deras MD Primary Care Provider Braeden, Dr. Fierro Primary Care Provider Kaleigh, Dr. Mirian Mccall Admit Provider Kaleigh, Dr. Mirian Mccall Attending Provider Kaleigh, Dr. Mirian Mccall Other Provider Vadim Deras MD Primary Care Provider [phone] Vadim Deras MD Primary Care Provider BONIFACIO VALDEZ Attending Unavailable VADIM DERAS Primary Care Unavailable BONIFACIO VALDEZ Attending Unavailable VALENTINE, LYNDA Referring Unavailable VADIM DERAS Primary Care Unavailable VALENTINE, LYNDA Referring Unavailable VADIM DERAS Primary Care Unavailable VERNON, NICOLÁS Champion Attending Unavailable VADIM DERAS Referring Unavailable VADIM DERAS Primary Care Unavailable VADIM DERAS Primary Care Unavailable GIOVANNI DENTON Admitting Unavailable KADE GARRETT Attending Unavailable BONIFACIO VALDEZ Consulting Unavailable VERNON, NICOLÁS F Referring Unavailable BRAEDEN, VADIM Barcenas Primary Care Unavailable KHAYYAT, NICOLÁS F Attending Unavailable CHANCEYAT, NICOLÁS F Referring Unavailable BRAEDEN, VADIM Barcenas Primary Care Unavailable Vargas MICHELLE.Delicia BAGLEY Unavailable Unavailable Primary Care Provider Unavailbecca e VADIM DERAS Attending Unavailable VADIM DERAS Primary Care Unavailable VADIM DERAS Referring Unavailable BRAEDEN, BRITTNEY Primary Care Unavailable DERAS, BRITTNEY Attending Unavailable DERAS, BRITTNEY Primary Care Unavailable DERAS, BRITTNEY Referring Unavailable DERAS, BRITTNEY Primary Care Unavailable BONIFACIO LEDBETTER JR Referring Unavailable DEMETRIO GILL Attending Unavailable DERAS, BRITTNEY Referring Unavailable LEDBETTER JR, BONIFACIO Brice Attending Unavailable DERAS, BRITTNEY Primary Care Unavailable LEDBETTER JR, BONIFACIO Brice Attending Unavailable DERAS, BRITTNEY Referring Unavailable DERAS, BRITTNEY Primary Care Unavailable BONIFACIO LEDBETTER JR Referring Unavailable DERAS, BRITTNEY Primary Care Unavailable JACQUES BUTLER, BONIFACIO Brice Attending Unavailable DERAS, BRITTNEY Referring Unavailable DERAS, BRITTNEY Primary Care Unavailable Braeden RICH, Dr. Fierro Primary Care Provider Heather RICH, Dr. Almodovar Attending Provider Unavailne Valdivia MD, Kelton Referring Provider Skip RICH, Kelton Emergency Provider [phone] Nishi Mccracken Attending Unavailable Braeden, Vadim Primary Care Unavailable Kendall Dowling Attending Unavailable Jon Arce Admitting Unavailable Jon Arce Consulting Unavailable Braeden, Vadim Primary Care Unavailable Elroy Nunez Consulting Unavailable Kendall Dowling Consulting Unavailable Jon Arce Admitting Unavailable Jon Arce Attending Unavailable Jon Arce Consulting Unavailable Braeden, Vadim Primary Care Unavailable Elroy Nunez Attending Unavailable Ton, Preston Chi Consulting Unavailable Ton, Preston Chi Admitting Unavailable Mirian Farris Attending Unavaila ekaterina Deras, Vadim Primary Care Unavailable Pierre Mcgee Attending Unavailbecca Deras, Vadim Primary Care Unavailable Kelton Valdivia Referring Unavailable Kelton Valdivia Attending Unavailable Deras, Vadim Primary Care Unavailable Braeden, Vadim Referring Unavailable Vadim Deras Attending Unavailable Braeden, Vadim Primary Care Unavailable Nishi Mccracken Attending Unavailable Braeden, Vadim Primary Care Unavailable Nishi Mccracken Referring Unavailable Nishi Mccracken Attending Unavailable Braeden, Vadim Primary Care Unavailable Jon Arce Admitting Unavailable Jon Arce Consulting Unavailable Braeden, Vadim Primary Care Unavailable Kendall Dowling Attending Unavailable Elroy Nunez Consulting Unavailable Preston Camilo Chi Attending Unavailable Preston Camilo Chi Admitting Unavailable Vadim Deras [facility] Unavailable Nishi Mccracken Referring Unavailable Nishi Mccracken Attending Unavailable Vadim Deras [facility] Unavailable Nishi Mccracken Attending Unavailable Vadim Deras [facility] Unavailable Nishi Mccracken Attending Unavailable Vadim Deras [facility] Unavailable Allergies Allergy Classification Reported Allergen(s) Allergy Type Date of Onset Reaction(s) Facility (20 sources) Clearasil Maximum Strength; Translations: [CLEARASIL MAXIMUM STRENGTH] Drug Intolerance 9 Swelling [facility] Work Phone: (5 sources) Salicylic Acid Drug Allergy 3 Swelling [facility] Comment on above: clearasil (20 sources) HMG-CoA reductase inhibitor; Translations: [[id number] REDUCTASE INHIBITORS] Drug Intolerance 4 Myalgia [facility] Work Phone: (1 source) Salicylic Acid Drug Allergy 5 [facility] Medications Current Medications Medication Drug Class(es) Dates Sig (Normalized) Sig (Original) aspirin 81 mg oral tablet (20 sources) Platelet Aggregation Inhibitor, Nonsteroidal Anti-inflammatory Drug Start: 05-15-2024 take 1 capsule by mouth once daily Aspirin 81 mg capsule Active 81 mg PO DAILY May 15, 2024 1:00am Start: 08-23-2023 take 1 tablet by andrew once daily aspirin, enteric coated (ASPIRIN, ENTERIC COATED) 81 mg EC tablet Indications: History of TIA (transient ischemic attack) Take 1 tablet by mouth once daily. 08/23/2023 Active Start: 06-21-2023 End: 07-16-2023 take 1 tablet by mouth twice daily Aspirin 81 mg tablet,chewable Discontinued 81 mg PO TWICE A DAY June 21, 2023 1:00am July 16, 2023 9:14pm On Hold: MD Kidd Comment on above: Take 1 tablet by andrew once daily. carbidopa 50 mg / levodopa 200 mg extended release oral tablet (13 sources) Aromatic Amino Acid Decarboxylation Inhibitor, Aromatic Amino Acid Start: 09-04-2024 carbidopa-levodopa CR (SINEMET CR) 50-200 mg per tablet Indications: Parkinson's disease, unspecified whether dyskinesia present, unspecified whether manifestations fluctuate (HCC) Take 1 tablet at 10PM. 90 tablet 1 09/04/2024 Active Start: 06-26-2024 End: 09-04-2024 carbidopa-levodopa (SINEMET) 25-100 mg per tablet Indications: Gait abnormality , Speech disturbance, unspecified type , Ataxia , History of subdural hematoma , Spinal stenosis in cervical region , Spinal stenosis of lumbar region without neurogenic claudication , Leg weakness, bilateral Take 1.5 tablet with breakfast, 1.5 tablet with lunch and 1.5 tablet with dinner (7AM, Noon and 5 PM). 90 tablet 2 09/04/2024 Active cholecalciferol 0.05 mg oral capsule (7 sources) Vitamin D take 1 capsule by mouth once daily Cholecalciferol, Vitamin D3, (VITAMIN D-3) 50 mcg (2,000 unit) cap Take 1 capsule by mouth once daily. Active docusate sodium 50 mg / sennosides, snf 8.6 mg oral tablet (8 sources) Start: Sennosides-Docusate Sodium (Stimulant Laxative Plus) 8.6-50 mg Tablet Active 2 {tbl} PO TWICE A DAY May 29, 2024 1:00am take 1 capsule by mo [facility] twice daily at bedtime for constipation sennosides-docusate sodium (SENNA PLUS) 8.6-50 mg capsule Take 1 capsule by mouth two times a day. Morning and bedtime for constipation Active doxycycline monohydrate 100 mg oral tablet (1 source) Tetracycline-class Drug Start: 03-05-2022 End: 03-10-2022 take 1 tablet by mouth twice daily doxycycline monohydrate 100 mg tablet Take 1 tablet by mouth twice daily for 5 days. 10 tablet 0 03/05/2022 03/10/2022 Active Comment on above: Take 1 tablet by andrew twice daily for 5 days. finasteride 5 mg oral tablet (20 sources) 5-alpha Reductase Inhibitor Start: 08-06-2022 End: 09-09-2023 take 1 tablet by mouth once daily finasteride (PROSCAR) 5 mg tablet Indications: Benign prostatic hyperplasia with urinary obstruction Take 1 tablet by mouth once daily. 90 tablet 3 09/09/2023 Active Start: 08-11-2021 End: 08-03-2022 take 1 tablet by mouth once daily finasteride (PROSCAR) 5 mg tablet Indications: Benign prostatic hyperplasia with urinary obstruction Take 1 tablet by mouth once daily. 90 tablet 3 08/11/2021 08/03/2022 Discontinued Comment on above: Take 1 tablet by [facility] once daily. Food Supplemt, Lactose-Reduced (Ensure Plus High Protein) 0.08 gram-1.5 kcal/mL Liquid (1 source) Start: 2023 Food Supplemt, Lactose-Reduced (Ensure Plus High Protein) 0.08 gram-1.5 kcal/mL Liquid Active 120 mL PO 3 TIMES DAILY WITH MEALS 120 May 29, 2024 1:00am hydroCHLOROthiazide 12.5 mg oral capsule (15 sources) Thiazide Diuretic Start: 2022 End: 2022 take 1 capsule by mouth once daily hydroCHLOROthiazide (HYDRODIURIL, ESIDRIX) 12.5 mg capsule Indications: Essential hypertension Take 1 capsule by mouth once daily. 90 capsule 3 08/06/2022 02/15/2023 Discontinued (Clinical Decision) Start: 08-11-2021 End: 08-03-2022 take 1 capsule by mouth once daily hydroCHLOROthiazide 12.5 mg capsule Indications: Essential hypertension Take 1 capsule by mouth once daily. 90 capsule 3 08/11/2021 08/03/2022 Discontinued Comment on above: Take 1 capsule by [facility] once daily. lactobacillus acidophilus 1.5 mg oral capsule (20 sources) Start: 06-27-2023 Lactobacillus Acidophilus (Probiotic Acidophilus) 250 million cell capsule Active 500 NMA PO DAILY June 27, 2023 1:00am End: 08-23-2023 Lactobacillus acidophilus (P ROBIOTIC) 10 billion cell cap Take 1 capsule by mouth. 0 08/23/2023 Discontinued Comment on above: Take by mouth. Take 1 capsule by [facility]. lisinopril 40 mg oral tablet (20 sources) Angiotensin Converting Enzyme Inhibitor Start: End: take 1 tablet by mouth once daily lisinopril (ZESTRIL) 40 mg tablet Indications: Essential hypertension Take 1 tablet by mouth once daily. 90 tablet 3 11/21/2023 Active Start: 08-23-2023 End: 11-21-2023 take 1 tablet by mouth once daily lisinopril (ZESTRIL) 20 mg tablet Indications: Essential hypertension Take 1 tablet by mouth once daily. 90 tablet 3 09/09/2023 11/21/2023 Discontinued (Dosage adjustment) Start: 06-21-2023 End: 07-16-2023 take 1 tablet by mouth once daily Lisinopril 20 mg tablet Discontinued 20 mg PO DAILY June 21, 2023 1:00am July 16, 2023 9:14pm Start: 01-28-2023 take 1 tablet by andrew th once daily lisinopril (ZESTRIL) 20 mg tablet Indications: Essential hypertension Take 1 tablet by mouth once daily. 90 tablet 3 01/28/2023 Active Start: 12-27-2020 End: 01-11-2022 take 1 tablet by mouth once daily lisinopril (ZESTRIL, PRINIVIL) 20 mg tablet Indications: Essential hypertension Take 1 tablet by mouth once daily. 90 tablet 3 01/11/2022 Active Comment on above: Take 1 tablet by andrew th once daily. losartan potassium 100 mg oral tablet (17 sources) Angiotensin 2 Receptor Shaw Start: 05-29-2024 take 1 tablet by mouth once daily Losartan 100 mg Tablet Active 100 mg PO DAILY May 29, 2024 1:00am Start: 07-16-2023 End: 05-19-2024 take 1 tablet by mouth once daily Losartan 100 mg Tablet Discontinued 100 mg PO DAILY 0 July 16, 2023 1:00am May 19, 2024 10:51am melatonin 3 mg oral tablet (20 sources) Start: 08-23-2023 take 1 tablet by mouth once daily at bedtime melatonin 3 mg tablet Take 1 tablet by mouth daily at bedtime. 08/23/2023 Active Start: 06-21-2023 take 1 capsule by mo uth once daily Melatonin 3 mg capsule Active 3 mg PO DAILY June 21, 2023 1:00am End: 08-23-2023 take 1 capsule by mouth once daily at bedtime Melatonin 5 mg cap Take 5 mg by mouth daily at bedtime. 0 08/23/2023 Discontinued Comment on above: Take 5 mg by mouth d aily at bedtime. Take 1 tablet by andrew th daily at bedtime. menthol 0.02 mg/mg topical gel (4 sources) Start: 07-16-19 Menthol (Blue Gel) 2 % Gel Active 1 NMA TOPICAL 3 TIMES DAILY NEEDED as needed for Pain Score 1-10 0 July 16, 2023 1:00am metoprolol tartrate 25 mg oral tablet (7 sources) beta-Adrenergic Shaw take 1 tablet by mouth twice daily metoprolol tartrate, short acting, (LOPRESSOR) 25 mg tablet Take 25 mg by mouth two times a day. Active 24 hr mirabegron 50 mg extended release oral tablet (3 sources) beta3-Adrenergic Agonist Start: 10-13-19 End: 10-13-19 take 1 tablet by mouth once daily mirabegron (MYRBETRIQ) 50 mg Tb24 Indications: Overactive bladder Take 1 tablet by mouth once daily. 30 tablet 2 10/12/2024 Active Multivitamin preparation (3 sources) Start: 07-16-19 take 1 tablet by mouth at breakfast Multivitamin Active 1 TABLET PO WITH BREAKFAST July 16, 2023 12:00am MULTIVITAMIN TAB (20 sources) Start: 08-28-19 MULTIVITAMIN TAB Take one(1) tablet daily. 0 08/28/2005 Active Comment on above: Take one(1) tablet d aily. microencapsulated potassium chloride 20 meq extended release oral tablet (13 sources) Start: 05-29-20 take 1 tablet by mouth once daily at mealtime Potassium Chloride 20 mEq Tablet,Er Particles/Crystals Active 20 meq PO DAILY WITH MEALS May 29, 2024 1:00am Start: 07-30-2023 End: 08-23-2023 potassium chloride (K-TAB) 1 0 mEq tablet take 1 tablet by andrew th twice daily potassium chloride ER (KLOR-CON) 20 mEq tablet Take 20 mEq by mouth two times a day. Active rivaroxaban 10 mg oral tablet (8 sources) Factor Xa Inhibitor Start: 05-29-2024 take 1 tablet by mouth once daily Rivaroxaban (Xarelto) 10 mg Tablet Active 10 mg PO DAILY May 29, 2024 1:00am tadalafil 5 mg oral tablet (3 sources) Phosphodiesterase 5 Inhibitor Start: 10-15-2024 take 1 tablet by mouth once daily Tadalafil (CIALIS) 5 mg tablet Indications: Overactive bladder Take 1 tablet by mouth once daily. 30 tablet 2 10/15/2024 Active Start: 10-12-2024 End: 10-12-2024 take 1 tablet by mouth once daily as needed Tadalafil (CIALIS) 5 mg tablet Indications: Overactive bladder Take 1 tablet by mouth once daily as needed. Take 1-2 hours before sexual activity. 60 tablet 3 10/12/2024 Active tamsulosin hydrochloride 0.4 mg oral capsule (1 source) alpha-Adrenergic Shaw Start: 12-09-2024 End: 01-08-2025 take 1 capsule by mouth once daily at bedtime tamsulosin (FLOMAX) 0.4 mg Indications: BPH with urinary obstruction Take 1 capsule by mouth daily at bedtime. 30 capsule 12/09/2024 01/08/2025 Active 24 hr tolterodine tartrate 2 mg extended release oral capsule (13 sources) Cholinergic Muscarinic Antagonist Start: 05-29-2024 take 1 capsule by mouth once daily Tolterodine 2 mg Capsule,Extended Release 24hr Active 2 mg PO DAILY May 29, 2024 1:00am Start: 04-27-2024 End: 10-12-2024 take 1 tablet by mouth twice daily Tolterodine 1 mg tablet Discontinued 1 mg PO TWICE A DAY May 15, 2024 1:00am May 29, 2024 3:01pm Start: 02-21-2024 End: 02-26-2024 take 1 tablet by mouth twice daily tolterodine (DETROL) 1 mg tablet Indications: Benign prostatic hyperplasia with urinary obstruction , Urgency of urination Take 1 tablet by mouth two times a day. 60 tablet 02/21/2024 02/26/2024 Discontinued (Cost of medication) vibegron (GEMTESA) 75 mg tablet (3 sources) Start: 10-12-2024 End: 01-10-2025 take 1 tablet by mouth once daily vibegron (GEMTESA) 75 mg tablet Indications: Overactive bladder Take 1 tablet by mouth once daily. 30 tablet 2 10/12/2024 01/10/2025 Active Start: 10-12-2024 End: 10-12-2024 take 1 tablet by mouth once daily vibegron (GEMTESA) 75 mg tablet Indications: Overactive bladder Take 1 tablet by mouth once daily. 30 tablet 2 10/12/2024 10/12/2024 Discontinued Completed/Discontinued Medications Medication Drug Class(es) Dates Sig (Normalized) Sig (Original) acetaminophen 500 mg oral tablet (9 sources) Start: 06-27-2023 End: 08-23-2023 take 2 tablets by mouth every six hours acetaminophen (TYLENOL) 500 mg tablet 2 tablets by ORAL/FEEDING TUBE route every 6 hours. 0 06/27/2023 08/23/2023 Discontinued Start: 06-27-2023 take 2 capsules by m outh every six hours as needed for pain Acetaminophen 500 mg capsule Active 1000 mg PO EVERY 6 HOURS as needed for pain June 27, 2023 1:00am Start: 06-27-2023 take 1000 mg by mout h every six hours Acetaminophen Active 1000 MG PO EVERY 6 HOURS June 27, 2023 12:00am Comment on above: 2 tablets by ORAL/FE EDING TUBE route every 6 hours. atorvastatin 20 mg oral tablet (5 sources) HMG-CoA Reductase Inhibitor Start: 07-22-2023 End: 08-23-2023 atorvastatin (LIPITOR) 20 mg tablet calcium carbonate 1250 mg / cholecalciferol 200 unt oral tablet (12 sources) Vitamin D Start: 07-16-2023 End: 05-19-2024 Calcium Carbonate-Vitamin D3 (Oyster Shell Calcium-Vit D3) 500 mg-5 mcg (200 unit) Tablet Discontinued 0.5 {tbl} PO TWICE DAILY WITH MEALS 0 July 16, 2023 1:00am May 19, 2024 10:50am Start: 06-27-2023 End: 11-21-2023 take 2 tablets by mouth twice daily calcium-cholecalciferol, D3, (OSCAL+D 25 0) 250 mg-3.125 mcg (125 unit) per tablet Take 2 tablets by mouth two times a day. 0 06/27/2023 11/21/2023 Discontinued Comment on above: Take 2 tablets by mo uth two times a day. chlorthalidone 25 mg oral tablet (9 sources) Thiazide-like Diuretic Start: 07-18-2023 End: 08-23-2023 chlorthalidone (HYGROTON) 25 mg tablet Start: 07-16-2023 End: 05-19-2024 Chlorthalidone 50 mg Tablet Discontinued 25 mg PO DAILY 0 July 16, 2023 1:00am May 19, 2024 10:50am Start: 07-16-2023 take 25 mg by mouth once daily Chlorthalidone Active 25 MG PO DAILY 0 July 16, 2023 12:00am cloNIDine hydrochloride 0.1 mg oral tablet (9 sources) Central alpha-2 Adrenergic Agonist Start: 07-16-2023 End: 05-19-2024 take 1 tablet by mouth every six hours as needed Clonidine Hcl 0.1 mg Tablet Discontinued 0.1 mg PO EVERY 6 HOURS NEEDED as needed for SYS>165 DIAST>85 0 July 16, 2023 1:00am May 19, 2024 10:51am Dietary Supplement cap (4 sources) Start: 08-23-2023 End: 11-21-2023 take 2 capsules by mouth once daily Dietary Supplement cap Take 2 capsules by mouth once daily. SUPER BETA PROSTATE. 0 08/23/2023 11/21/2023 Discontinued Start: 08-23-2023 take 2 capsules by m outh once daily Dietary Supplement cap Take 2 capsules by mouth once daily. SUPER BETA PROSTATE. 0 08/23/2023 Active Comment on above: Take 2 capsules by m outh once daily. SUPER BETA PROSTATE. doxazosin 1 mg oral tablet (20 sources) alpha-Adrenergic Shaw Start: 01-28-2023 End: 05-16-2024 take 1 tablet by mouth once daily Doxazosin 1 mg tablet Discontinued 1 mg PO DAILY June 21, 2023 1:00am May 16, 2024 1:23pm Start: 12-27-2020 End: 02-08-2022 take 1 tablet by mouth once daily doxazosin (CARDURA) 1 mg tablet Indications: Benign prostatic hyperplasia with urinary obstruction Take 1 tablet by mouth once daily. 90 tablet 3 01/11/2022 Active Comment on above: Take 1 tablet by andrew th once daily. famotidine 20 mg oral tablet (5 sources) Histamine-2 Receptor Antagonist Start: 05-22-20 End: 06-21-20 take 1 tablet by mouth twice daily Famotidine 20 MG tablet Discontinued 20 mg PO TWICE A DAY May 22, 2018 1:00am June 21, 2023 3:16pm levETIRAcetam 500 mg oral tablet (4 sources) Start: 06-27-20 End: 07-16-19 take 1 tablet by mouth twice daily Levetiracetam 500 mg tablet Discontinued 500 mg PO TWICE A DAY June 27, 2023 1:00am July 16, 2023 9:14pm LOW-DOSE ASPIRIN ORAL (16 sources) take 81 mg by mouth twice daily LOW-DOSE ASPIRIN ORAL Take 81 mg by mouth twice daily. 0 Active Comment on above: Take 81 mg by mouth twice daily. mirtazapine 7.5 mg oral tablet (5 sources) Start: 08-01-19 End: 08-23-19 Mirtazapine (REMERON) 7.5 mg tablet Multivitamin Tablet (1 source) Start: 07-16-19 End: 05-29-20 Multivitamin Tablet Discontinued 1 {tbl} PO WITH BREAKFAST 0 July 16, 2023 1:00am May 29, 2024 3:00pm ofloxacin 3 mg/ml ophthalmic solution (1 source) Quinolone Antimicrobial Start: 05-15-20 End: 05-29-20 take 0.3 drop(s) into the eye(s) four times daily Ofloxacin 0.3 % drops Discontinued 1 NMA RIGHT EYE 4 TIMES DAILY May 15, 2024 1:00am May 29, 2024 3:00pm 24 hr oxybutynin chloride 10 mg extended release oral tablet (6 sources) Cholinergic Muscarinic Antagonist Start: 11-21-19 End: 02-21-20 take 1 tablet by mouth once daily in the evening oxybutynin ER (DITROPAN XL) 10 mg 24 hr tablet Indications: Urgency of urination , Benign prostatic hyperplasia with urinary obstruction Take 1 tablet by mouth every evening. 30 tablet 5 01/30/2024 02/21/2024 Discontinued (Lack of Efficacy) polyethylene glycol 3350 65129 mg powder for oral solution (4 sources) Osmotic Laxative Start: 07-16-19 End: 05-15-20 take 17 g by mouth once daily Polyethylene Glycol 3350 17 gram Powder In Packet Discontinued 17 g PO DAILY 0 July 16, 2023 1:00am May 15, 2024 5:41pm pravastatin sodium 20 mg oral tablet (20 sources) HMG-CoA Reductase Inhibitor Start: 06-21-20 End: 07-16-19 take 1 tablet by mouth once daily Pravastatin 20 mg tablet Discontinued 20 mg PO DAILY June 21, 2023 1:00am July 16, 2023 9:14pm Start: 04-01-2023 take 1 tablet by andrew th at bedtime pravastatin (PRAVACHOL) 20 mg tablet Indications: Hyperlipidemia, unspecified hyperlipidemia type Take 1 tablet by mouth at bedtime 90 tablet 3 04/01/2023 Active Start: 02-15-2023 End: 04-01-2023 take 2 tablets by mouth once daily at bedtime pravastatin (PRAVACHOL) 10 mg tablet Indications: Hyperlipidemia, unspecified hyperlipidemia type Take 2 tablets by mouth daily at bedtime. 0 02/15/2023 04/01/2023 Discontinued Start: 01-28-2023 End: 02-15-2023 take 1 tablet by mouth once daily pravastatin (PRAVACHOL) 10 mg tablet Indications: Hyperlipidemia, unspecified hyperlipidemia type Take 1 tablet by mouth once daily. 90 tablet 3 01/28/2023 02/15/2023 Discontinued Start: 02-08-2022 take 1 tablet by andrew th once daily pravastatin (PRAVACHOL) 10 mg tablet Indications: Hyperlipidemia, unspecified hyperlipidemia type Take 1 tablet by mouth once daily. 90 tablet 3 02/08/2022 Active Start: 08-11-2021 End: 02-08-2022 take 1 tablet by mouth once daily at bedtime pravastatin (PRAVACHOL) 20 mg tablet Indications: Hyperlipidemia, unspecified hyperlipidemia type Take 1 tablet by mouth daily at bedtime. 90 tablet 3 08/11/2021 02/08/2022 Discontinued (Dosage adjustment) Comment on above: Take 1 tablet by andrew th daily at bedtime. Take 1 tablet by andrew th once daily. Take 2 tablets by mo ut daily at bedtime. Take 1 tablet by andrew th at bedtime sennosides, snf 8.6 mg oral capsule (9 sources) Start: 06-27-2023 End: 08-23-2023 Sennosides 8.6 mg cap AT BEDTIME 0 06/27/2023 08/23/2023 Discontinued Start: 06-27-2023 End: 05-15-2024 take 2 capsules by mouth at bedtime Sennosides (Senna) 8.6 mg capsule Discontinued 17.2 mg PO AT BEDTIME June 27, 2023 1:00am May 15, 2024 5:41pm Comment on above: AT BEDTIME Problems Active Problems Problem Classification Problem Date Documented Date Episodic/Chronic Abdominal hernia (1 source) Recurrent umbilical hernia; Translations: [Umbilical hernia without obstruction or gangrene] 01-25-2023 Episodic Acute cerebrovascular disease (20 sources) Hemorrhage into subarachnoid space of neuraxis; Translations: [Nontraumatic subarachnoid hemorrhage, unspecified] Onset: 06-21-2023 08-02-2023 Chronic Coagulation and hemorrhagic disorders (20 sources) Platelet count below reference range; Translations: [Thrombocytopenia, unspecified] Onset: 2017 2017 Chronic Complications of surgical procedures or medical care (1 source) Surgical wound finding; Translations: [Disruption of wound, unspecified, initial encounter] Episodic Disorders of lipid metabolism (20 sources) Hyperlipidemia; Translations: [Hyperlipidemia, unspecified] Onset: 08-28-2005 07-10-2018 Chronic E Codes: Adverse effects of medical drugs (7 sources) Adverse reaction to drug; Translations: [Adverse effect of unspecified drugs acting on muscles, initial encounter] 06-28-2023 Episodic Comment on above: Bilateral anterior t high weakness/myalgia with pravastatin Essential hypertension (20 sources) Essential hypertension; Translations: [Essential (primary) hypertension] Onset: 02-22-2006 06-29-2015 Chronic Hyperplasia of prostate (20 sources) Benign prostatic hypertrophy with outflow obstruction; Translations: [Benign prostatic hyperplasia with lower urinary tract symptoms] Onset: 07-05-2010 01-10-2017 Chronic Immunizations and screening for infectious disease (2 sources) Vaccination needed; Translations: [Encounter for immunization] Episodic Intracranial injury (5 sources) Traumatic subdural hematoma; Translations: [Traumatic intracranial subdural hematoma] 06-21-2023 Episodic Other aftercare (1 source) History of repair of umbilical hernia; Translations: [Encounter for follow-up examination after completed treatment for conditions other than malignant neoplasm] Episodic Other circulatory disease (3 sources) History of subdural hematoma; Translations: [Personal history of other diseases of the circulatory system] 03-13-2024 Episodic Other circulatory disease (1 source) Personal history of other diseases of the circulatory system; Translations: [History of subdural hematoma] Onset: 09-04-2024 Episodic Other connective tissue disease (1 source) Muscle pain; Translations: [Myalgia, unspecified site] Episodic Other connective tissue disease (6 sources) Other symptoms and signs involving the musculoskeletal system; Translations: [Other musculoskeletal symptoms referable to limbs] Onset: 09-04-2024 10-14-2023 Episodic Other connective tissue disease (1 source) Weakness of face muscles; Translations: [Facial weakness] 03-13-2024 Episodic Other diseases of bladder and urethra (7 sources) Overactive bladder; Translations: [Overactive bladder] Chronic Other diseases of bladder and urethra (4 sources) Overactive bladder; Translations: [Hypertonicity of bladder] Onset: 06-01-2024 07-18-2023 Chronic Other eye disorders (1 source) Disorder of eye; Translations: [Unspecified disorder of eye and adnexa] Episodic Other injuries and conditions due to external causes (1 source) Closed injury of head; Translations: [Unspecified injury of head, initial encounter] 11-30-2024 Episodic Other nervous system disorders (2 sources) Tremor; Translations: [Tremor, unspecified] 03-13-2024 Episodic Other nervous system disorders (3 sources) Disturbance in speech; Translations: [Unspecified speech disturbances] 03-13-2024 Episodic Other nervous system disorders (5 sources) Ataxia; Translations: [Ataxia, unspecified] 03-13-2024 Episodic Other nervous system disorders (1 source) Unspecified speech disturbances; Translations: [Speech disturbance, unspecified type] Onset: 09-04-2024 Episodic Other nervous system disorders (1 source) Ataxia, unspecified; Translations: [Ataxia] Onset: 09-04-2024 Episodic Other nutritional; endocrine; and metabolic disorders (20 sources) Obese class II; Translations: [Obesity, unspecified] Onset: 07-28-2020 07-28-2020 Chronic Other nutritional; endocrine; and metabolic disorders (2 sources) Hypoalbuminemia; Translations: [Other disorders of plasma-protein metabolism, not elsewhere classified] 02-15-2023 Chronic Other upper respiratory disease (20 sources) Chronic rhinitis; Translations: [Chronic rhinitis] Onset: 07-12-2016 Resolved: 02-21-2024 07-12-2016 Chronic Parkinson`s disease (1 source) Parkinson`s disease; Translations: [Parkinson's disease, unspecified whether dyskinesia present, unspecified whether manifestations fluctuate (HCC)] Onset: 09-04-2024 Residual codes; unclassified (1 source) History of hernia repair; Translations: [Other specified postprocedural states] 02-28-2023 Episodic Residual codes; unclassified (4 sources) History of operation on musculoskeletal system; Translations: [Other specified postprocedural states] 06-28-2023 Episodic Comment on above: Bimalleolar left ank le fracture on 06/23/2023. Residual codes; unclassified (3 sources) Other specified postprocedural states; Translations: [Personal history of surgery to other organs] 07-18-2023 Episodic Residual codes; unclassified (1 source) Insomnia; Translations: [Insomnia, unspecified] 06-07-2024 Episodic Screening and history of mental health and substance abuse codes (2 sources) Patient encounter status; Translations: [Encounter for screening for depression] 02-21-2024 Episodic Skin and subcutaneous tissue infections (1 source) Infection of skin; Translations: [Local infection of the skin and subcutaneous tissue, unspecified] Episodic Spondylosis; intervertebral disc disorders; other back problems (2 sources) Other cervical disc degeneration, high cervical region; Translations: [Other cervical disc degeneration, high cervical region] Onset: 06-01-2024 Chronic Superficial injury; contusion (8 sources) Contusion of scalp; Translations: [Contusion of scalp, initial encounter] Onset: 12-07-2024 06-21-2023 Episodic Thyroid disorders (1 source) Hypothyroidism, unspecified; Translations: [Hypothyroidism, unspecified] Onset: 07-24-2024 Chronic Unclassified (2 sources) Parkinson's disease; Translations: [Parkinson's disease, unspecified whether dyskinesia present, unspecified whether manifestations fluctuate (HCC)] 09-04-2024 Chronic Unclassified (1 source) SDH (subdural hematoma) (HCC); Translations: [SDH (subdural hematoma) (HCC)] Onset: 07-16-2023 Unclassified (1 source) Traumatic subdural hemorrhage with loss of consciousness status unknown, subsequent encounter; Translations: [Traumatic subdural hemorrhage with loss of consciousness status unknown, subsequent encounter] Onset: 07-24-2024 Urinary tract infections (2 sources) Urinary tract infection, site not specified; Translations: [Urinary tract infection, site not specified] Onset: 10-27-2024 Episodic Past or Other Problems Problem Classification Problem Date Documented Date Episodic/Chronic Conditions associated with dizziness or vertigo (20 sources) Dizziness and giddiness; Translations: [Dizziness and giddiness] Onset: 08-22-2007 Resolved: 07-12-2016 07-12-2016 Episodic Diverticulosis and diverticulitis (20 sources) Diverticulosis of large intestine; Translations: [Diverticulosis of large intestine without perforation or abscess without bleeding] Onset: 07-24-2024 Resolved: 02-21-2024 07-12-2016 Chronic E Codes: Fall (20 sources) Fall; Translations: [Unspecified fall, initial encounter] Onset: 06-22-2023 06-21-2023 Episodic Fluid and electrolyte disorders (2 sources) Dehydration; Translations: [Dehydration] Onset: 06-01-2024 05-29-2024 Episodic Comment on above: chronic due to poor fluid intake. Eats well and has been taking 75-100% of meals. Fracture of lower limb (20 sources) Bimalleolar fracture of ankle ; Translations: [Displaced bimalleolar fracture of left lower leg, initial encounter for closed fracture] Onset: 06-23-2023 Resolved: 02-21-2024 06-28-2023 Episodic Genitourinary symptoms and ill-defined conditions (20 sources) Urgent desire to urinate; Translations: [Urgency of urination] Onset: 07-28-2020 07-28-2020 Episodic Malaise and fatigue (11 sources) Asthenia; Translations: [Other malaise] Onset: 06-01-2024 06-28-2023 Episodic Other circulatory disease (20 sources) History of transient ischemic attack; Translations: [Personal history of transient ischemic attack (TIA), and cerebral infarction without residual deficits] Onset: 08-23-2023 08-23-2023 Episodic Other circulatory disease (1 source) Personal history of transient ischemic attack (TIA), and cerebral infarction without residual deficits; Translations: [Personal history of transient ischemic attack (TIA), and cerebral infarction without residual deficits] Onset: 06-29-2024 Episodic Other connective tissue disease (1 source) Facial weakness; Translations: [Facial droop] Onset: 03-13-2024 Episodic Other male genital disorders (20 sources) Male erectile dysfunction, unspecified; Translations: [Impotence of organic origin] Onset: 01-16-2018 Resolved: 02-21-2024 01-16-2018 Chronic Other male genital disorders (20 sources) Disorder of prostate; Translations: [Disorder of prostate, unspecified] Onset: 02-14-2007 Resolved: 07-12-2016 07-12-2016 Episodic Other nervous system disorders (20 sources) Abnormal gait; Translations: [Unspecified abnormalities of gait and mobility] Onset: 08-23-2023 08-23-2023 Episodic Other nervous system disorders (1 source) Unspecified abnormalities of gait and mobility; Translations: [Gait abnormality] Onset: 08-23-2023 Episodic Other nervous system disorders (1 source) Tremor, unspecified; Translations: [Tremor] Onset: 04-10-2024 Episodic Other screening for suspected conditions (not mental disorders or infectious disease) (20 sources) Blood chemistry abnormal; Translations: [Other specified abnormal findings of blood chemistry] Onset: 02-14-2007 Resolved: 07-12-2016 07-12-2016 Episodic Residual codes; unclassified (18 sources) Edema of lower extremity; Translations: [Localized edema] Onset: 02-21-2024 02-21-2024 Episodic Residual codes; unclassified (1 source) Insomnia, unspecified; Translations: [Insomnia, unspecified] Onset: 06-01-2024 Episodic Spondylosis; intervertebral disc disorders; other back problems (17 sources) Spinal stenosis in cervical region; Translations: [Spinal stenosis, cervical region] Onset: 04-10-2024 03-13-2024 Episodic Results Test Name Value Interpretation Reference Range Facility [facility] 12-09-2024 [facility] Telephone (ALEXUROL) DENIZ KUMAR ([id number]) 1935 M Date Time Provider Department 12/09/24 MOHDER, FERAS FVUROL During your visit today, we recorded the following information about you: Demterio Gill MD 12/09/2024 10:48 AM Signed Called his sister Gerri and discussed about the treatment plan. Will keep Cialis and Gemtesa for now and add Flomax to the treatment regimen. Discussed about Interstim and Botox. Family not interested. Demetrio Gill MD. Genitourinary Medicine and Men's Health Staff. [facility] [place] [facility] Allergies As of Date: 12/09/2024 Noted Allergy Reaction [id number] REDUCTASE INHIBIT*08/23/2023 17 - Myalgia Comments: Weakess, falls CLEARASIL MAXIMUM STRENGTH 09/16/2018 7 - Swelling Date Reviewed: 10/12/2024 Reviewed by: Michelle Redd RN - Fully Assessed Primary Visit Diagnosis:BPH with urinary obstruction [N40.1, N13.8] Order(s):tamsulosin (FLOMAX) 0.4 mgTake 1 capsule by mouth daily at bedtime.Disp: 30 capsuleRfl: 0 Prescriptions as of 12/09/2024 - tamsulosin (FLOMAX) 0.4 mg Take 1 capsule by mouth daily at bedtime. - Tadalafil (CIALIS) 5 mg tablet Take 1 tablet by mouth once daily. - vibegron (GEMTESA) 75 mg tablet Take 1 tablet by mouth once daily. - mirabegron (MYRBETRIQ) 50 mg Tb24 Take 1 tablet by mouth once daily. - carbidopa-levodopa (SINEMET) 25-100 mg per tablet Take 1.5 tablet with breakfast, 1.5 tablet with lunch and 1.5 tablet with dinner (7AM, Noon and 5 PM). - carbidopa-levodopa CR (SINEMET CR) 50-200 mg per tablet Take 1 tablet at 10PM. - losartan (COZAAR) 100 mg tablet Take 100 mg by mouth once daily. - metoprolol tartrate, short acting, (LOPRESSOR) 25 mg tablet Take 25 mg by mouth two times a day. - potassium chloride ER (KLOR-CON) 20 mEq tablet Take 20 mEq by mouth two times a day. - sennosides-docusate sodium (SENNA PLUS) 8.6-50 mg capsule Take 1 capsule by mouth two times a day. Morning and bedtime for constipation - Cholecalciferol, Vitamin D3, (VITAMIN D-3) 50 mcg (2,000 unit) cap Take 1 capsule by mouth once daily. - rivaroxaban (XARELTO) 10 mg tablet Take 10 mg by mouth once daily. - lisinopril (ZESTRIL) 40 mg tablet Take 1 tablet by mouth once daily. - finasteride (PROSCAR) 5 mg tablet Take 1 tablet by mouth once daily. - melatonin 3 mg tablet Take 1 tablet by mouth daily at bedtime. - aspirin, enteric coated (ASPIRIN, ENTERIC COATED) 81 mg EC tablet Take 1 tablet by mouth once daily. - MULTIVITAMIN TAB Take one(1) tablet daily. Problem List As Of Date 12/09/2024 Noted Resolved Diverticulosis of large intestine [K57.30] 02/21/2024 Hyperlipidemia [E78.5] 08/28/2005 Essential hypertension [I10] 02/22/2006 Unspecified disorder of prostate [N42.9] 02/14/2007 07/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 [R79.89] 02/14/2007 07/12/2016 Dizziness and giddiness [R42] 08/22/2007 07/12/2016 Benign prostatic hyperplasia with urinary obstr*07/05/2010 Chronic nonallergic rhinitis [J31.0] 07/12/2016 02/21/2024 Thrombocytopenia, unspecified (HCC) [D69.6] 2017 Erectile dysfunction [N52.9] 01/16/2018 02/21/2024 Obesity, Class II, BMI 35-39.9 [E66.812] 07/28/2020 Urgency of urination [R39.15] 07/28/2020 Subdural hematoma (HCC) [S06.5XAA] 06/21/2023 Fall [W19.XXXA] 06/22/2023 Closed fracture of left ankle [S82.892A] 06/23/2023 02/21/2024 SAH (subarachnoid hemorrhage) (HCC) [I60.9] 07/16/2023 History of TIA (transient ischemic attack) [Z86*08/23/2023 Gait abnormality [R26.9] 08/23/2023 Edema of leg [R60.0] 02/21/2024 Prescriptions ordered this encounter Disp Refills Start End TAMSULOSIN 0.4 MG CAPSULE 30 c* 0 12/09/2024 01/08/2025 Route: PO Sig: Take 1 capsule by mouth daily at bedtime. Encounter Status:Closed by DEMETRIO GILL on 12/09/24 [facility] Brain/Head without Contrasto n 11-30-2024 Brain/Head without Contrast [facility] Imaging Services [address] [place] [address] Brain/Head without Contrast MR#: [id number] Acct: [id number] Name: DENIZ KUMAR Rep #: [id number] : 1935 M 89 From: Richa Richey PCP: Dr. Vadim Deras MD Status: REG ER Study: Brain/Head without Contrast Date of Exam: 08/25 Exam# [id number] Ordering Dr: Kelton Valdivia MD ADDENDUM by Dr. Richa Conti MD on 11/30/[address] Valdivia was notified by Richa Conti at 3:15pm EST on 11/30/24 Reading Location: [facility] 11/30/24 1533 Date cc: Dr. Kelton Valdivia MD; Dr. Vadim Deras MD * Signed PROCEDURE: BRAIN/HEAD WITHOUT CONTRAST 11/30/2024 REASON FOR EXAM: TRAUMA TECHNIQUE: Head CT without intravenous contrast. Coronal and Sagittal reconstruction series were provided. One or more dose reduction techniques were used (e.g., Automated exposure control, adjustment of the mA and/or kV according to patient size, use of iterative reconstruction technique. RADIATION DOSE SUMMARY: DLP: 741 mGycm COMPARISON: 06/21/2023 FINDINGS: There is no acute infarct, intracranial hemorrhage, or mass effect. No midline shift. Mild ventriculomegaly may reflect mild hydrocephalus. There is moderate chronic microvascular ischemic changes and mild parenchymal volume loss. No acute, depressed calvarial fractures. Large left parietal scalp hematoma. Opacification of the right mastoid air cells may reflect mastoiditis. Right orbital globe increased density may reflect vitreous hemorrhage. CT/Brain/Head without Contrast IMPRESSION: Large left parietal scalp hematoma without underlying acute calvarial fracture. Right orbital globe hyperdensity may reflect vitreous hemorrhage. Mild ventriculomegaly may reflect mild hydrocephalus. No acute intracranial hemorrhage or infarction. Opacification of the right mastoid air cells may reflect mastoiditis. Reading Location: [facility] CC: Dr. Kelton Valdiiva MD; Dr. Vadim Deras MD Marketing Database Analyst: Signed [facility] Emergency Department Summary on 11-30-2024 Emergency Department Summary [facility] Medical Records Department [address] [place] [id number] Emergency Department Summary 11/30/24 MR#: [id number] Acct: [id number] Name: DENIZ KUMAR Rep #: [id number] : 1935 89 From: Kelton Valdivia MD PCP: Dr. Vadim Deras MD Status:DEP ER Location: ED HPI History of Present Illness Chief Complaint: Head Injury Narrative Narrative: 89-year-old male presents via EMS status post fall with injury to head. He does take anticoagulants in the form of Xarelto. He was at his assisted living facility, sweeping off his porch, and he fell backwards. He struck the back of his head. He sustained an abrasion to the back of his head, but given the fact that he is on anticoagulants, was sent to the emergency department for evaluation. He denies headache or neck pain. Denies loss of consciousness. No other injuries. Tetanus Immunization: Unknown [facility] Medical History Insomnia Elevated troponin Spinal stenosis TIA (transient ischemic attack) Diverticulosis Nonallergic rhinitis BPH (benign prostatic hyperplasia) Hypercholesterolemia Hypertension Home Medications ???Medication ???Instructions ???Recorded ???Last Taken ???Type finasteride 5 mg tablet 5 mg PO DAILY Bladder 06/21/23 History melatonin 3 mg capsule 3 mg PO DAILY Sleep 06/21/2305/14 History Lactobacillus acidophilus 250 500 mmu cells PO DAILY Probiotic 1 2/28/23 Unknown History million cell capsule (Probiotic Acidophilus) acetaminophen 500 mg capsule 1,000 mg PO Q6H PRN pain 06/27/23 Unknown History menthol 2 % topical gel (Blue Gel) 1 applic topical TID PRN PRN Ezequiel n 07/16/23 Unknown Rx Score 1-10 #0 grams aspirin 81 mg capsule 81 mg PO DAILY Heart health 05/19/24 History food supplemt, lactose-reduced 120 ml PO TIDCM #120 mL 05/29/24 U nknown Rx 0.08 gram-1.5 kcal/mL oral liquid (Ensure Plus High Protein) losartan 100 mg tablet 100 mg PO DAILY #1 TAB 05/29/24 Un known Rx potassium chloride 20 mEq 20 meq PO DAILYCM #1 TAB 05/29/24 Unknown Rx tablet,extended release(part/cryst) rivaroxaban 10 mg tablet (Xarelto) 10 mg PO DAILY #1 TAB 05/29/24 U nknown Rx sennosides 8.6 mg-docusate sodium 2 tab PO BID #1 TAB 05/29/24 Unkn own Rx 50 mg tablet (Stimulant Laxative Plus) tolterodine 2 mg capsule,extended 2 mg PO DAILY #1 cap 05/29/24 Unk nown Rx release 24 hr Allergy/AdvReac Type Severity Reaction Status Date / Time salicylic acid Allergy Swelling Verified 11/30/24 14:11 Family History Father Cancer Prostate cancer Mother Cancer Liver cancer Sister Hypertension Hyperlipidemia Surgical History History of open reduction and internal fixation (ORIF) procedure Social History household members: none housing: other details: Mobile home pets and animals: Yes (Dog) Smoking Status: Former smoker pack-years: 3 alcohol intake: current alcohol intake frequency: a few times a month Alcohol type: beer details: 1 beer a week. substance use type: marijuana and other details: Has used marijuana in the past but not currently. ROS ROS ED ROS Narrative Review of symptoms positive for abrasion on occiput of head. No neck pain. No loss of consciousness. Denies other injuries. No headache. EXAM Physical Exam Narrative Exam Narrative: GCS 15. ABCs are intact. Head is normocephalic. Positive abrasion to the occiput of head. Neck soft and supple without meningismus. No vertebral point tenderness or bony step-off. Cardiovascular examination regular rate and rhythm. Lungs are clear to auscultation bilaterally. Abdomen is soft and nontender with normoactive bowel sounds. Neurological examination is nonfocal, nonlateralizing. He is able to raise his arms above his head without difficulty. He is awake, alert, interactive, oriented to person and place but not year. Const Vital Signs: 11/30/24 14:12 11/30/24 14:13 11/30/24 15:33 Temperature 98.1 F Temperature Source Oral Pulse Rate 61 61 Respiratory Rate 18 Respiratory Effort Normal Non-Labored Respiratory Depth Normal Respiratory Pattern Normal Blood Pressure 176/101 H 169/89 H Blood Pressure Mean 126 115 Pulse Ox 99 Oxygen Delivery Method Room Air MDM MDM MDM Narrative Medical decision making narrative: The differential diagnosis includes but not limited to intracranial hemorrhage versus closed head injury as the patient is on anticoagulation. Although he denies neck pain, given his age and mild confusion/disorientatio n to year, CT of the brain and of the cervical spine will be o (more content not included)... [facility] Spine Cervical without Contr ason 11-30-2024 Spine Cervical without Contras [facility] Imaging Services [address] [place] [address] Spine Cervical without Contras MR#: [id number] Acct: [id number] Name: DENIZ KUMAR Rep #: [id number] : 1935 M 89 From: Richa Richey PCP: Dr. Vadim Deras MD Status: REG ER Study: Spine Cervical without Contras Date of Exam: 0 11/30/24 Exam# [id number] Ordering Dr: Kelton Valdivia MD PROCEDURE: SPINE CERVICAL WITHOUT CONTRAS 11/30/2024 REASON FOR EXAM: TRAUMA TECHNIQUE: Cervical spine CT without contrast. Coronal and Sagittal reconstruction series were provided. One or more dose reduction techniques were used (e.g., Automated exposure control, adjustment of the mA and/or kV according to patient size, use of iterative reconstruction technique RADIATION DOSE SUMMARY: DLP: 741 mGycm COMPARISON: 06/21/2023 FINDINGS: No acute compression deformity, fracture, or subluxation. Mild retrolisthesis of C4 on C5. Moderate to severe multilevel degenerative changes with [id number] multilevel foraminal stenosis due to facet hypertrophy and uncovertebral hypertrophy. Moderate multilevel central canal stenosis most prominent at C4-C5 The prevertebral soft tissues are not thickened. Stable calcified 1 cm lesion within the right thyroid gland. Limited sections of the lung apices demonstrate no pneumothorax. CT/Spine Cervical without Contras IMPRESSION: No acute cervical compression fracture or subluxations. Moderate to severe multilevel degenerative changes of the cervical spine as above. Reading Location: [facility] CC: Dr. Kelton Valdivia MD; Dr. Vadim Deras MD Marketing Database Analyst: Signed [facility] Urine Cultureon 11-29-2024 [facility] 119 Staphylococcus aureus Lawrence Count >100,000 Staphylococcus aureus: REACTION cefOXitin Susc Islt Doxycycline Islt CHELA <=0.5 S Clindamycin.induced Susc Islt NEG Gentamicin Islt CHELA <=0.5 S Linezolid Islt CHELA 2 S Moxifloxacin Islt CHELA <=0.25 S Nitrofurantoin Islt CHELA <=16 S Oxacillin Susc Islt <=0.25 S Tetracycline Islt CHELA <=1 S TMP SMX Islt CHELA <=10 S Vancomycin Islt CHELA <=0.5 S [facility] Comment on above: Performed By: #### L 500.4050, L100.0100 #### [facility] [address] [facility] [place], [address] Anion gap in Serum or Plasma Ordered By: Nishi Romero on 11-27-2024 Anion gap [Moles/Vol] 9 mmol/L 11-12 [facility] BUN/creatinine ratioOrdered By: Nishi Romero on 11-27-2024 Urea nitrogen/Creatinine [Mass ratio] 26.6 mg/mg High - [facility] Basic Metabolic Profile (BMP )on 11-27-2024 BUN/CRE 26.6 RATIO High 10-20 [facility] Comment on above: Order Comment: 119 Performed By: #### L 500.2500, L100.0500 #### [facility] [address] [place], [address] Calcium [Mass/Vol] 9.1 mg/dL Normal 7.6-11.0 [facility] Comment on above: Order Comment: 119 Performed By: #### L 500.2500, L100.0500 #### [facility] [address] [place], [address] Chloride [Moles/Vol] 103 mmol/L Normal 98-108 [facility] Comment on above: Order Comment: 119 Performed By: #### L 500.2500, L100.0500 #### [facility] [address] [place], [address] CO2 [Moles/Vol] 25.3 mmol/L Normal 21.0-32.0 [facility] Comment on above: Order Comment: 119 Performed By: #### L 500.2500, L100.0500 #### [facility] [address] [place], [address] Creatinine [Mass/Vol] 0.91 mg/dL Normal 0.70-1.20 [facility] Comment on above: Order Comment: 119 Performed By: #### L 500.2500, L100.0500 #### [facility] [address] [place], [address] GAP 9 Normal 5-15 [facility] Comment on above: Order Comment: 119 Performed By: #### L 500.2500, L100.0500 #### [facility] [address] [place], [address] GFR/1.73 sq M.predicted among non-blacks MDRD (S/P/Bld) [Vol rate/Area] 81 mL/min/{1.73_m2} Normal >60 [facility] Comment on above: Order Comment: 119 Result Comment: mL/m in/1.73m2 CKD-EPI Creatinine Equation (2020) Performed By: #### L 500.2500, L100.0500 #### [facility] [address] [place], [address] Glucose [Mass/Vol] 81 mg/dL Normal 70-99 [facility] Comment on above: Order Comment: 119 Performed By: #### L 500.2500, L100.0500 #### [facility] [address] [place], [address] Potassium [Moles/Vol] 4.0 mmol/L Normal 3.3-5.1 [facility] Comment on above: Order Comment: 119 Performed By: #### L 500.2500, L100.0500 #### [facility] [address] [place], [address] Sodium [Moles/Vol] 137 mmol/L Normal 133-145 [facility] Comment on above: Order Comment: 119 Performed By: #### L 500.2500, L100.0500 #### [facility] [address] [place], [address] Urea nitrogen [Mass/Vol] 24 mg/dL High 4-19 [facility] Comment on above: Order Comment: 119 Performed By: #### L 500.2500, L100.0500 #### [facility] [address] [place], [address] Carbon dioxide, total [Moles /volume] in Central venous bloodOrdered By: Nishi Romero on 11-27-2024 CO2 [Moles/Vol] 25.3 mmol/L 21.0-32.0 [facility] Chloride assayOrdered By: Marlon Romero on 11-27-2024 Chloride [Moles/Vol] 103 mmol/L 98-108 [facility] Glomerular filtration rate ( GFR) estimation/1.73 sq m using serum, plasma, or whole bOrdered By: Nishi Romero on 11-27-2024 GFR/1.73 sq M.predicted among non-blacks MDRD (S/P/Bld) [Vol rate/Area] 81 mL/min/{1.73_m2} >60 [facility] Comment on above: mL/min/1.73m2 CKD-EP I Creatinine Equation (2020) Potassium measurement (mass/ volume)Ordered By: Nishi Romero on 11-27-2024 Potassium (Unsp spec) [Mass/Vol] 4.0 mmol/L 3.3-5.1 [facility] Serum creatinine measurement (mass/volume)Ordered By: Nishi Romero on 11-27-2024 Creatinine [Mass/Vol] 0.91 mg/dL 0.70-1.20 [facility] Serum glucose measurement (m ass/volume)Ordered By: Nishi Romero on 11-27-2024 Glucose [Mass/Vol] 81 mg/dL 70-99 [facility] Serum or plasma calcium sharon urement (mass/volume)Ordered By: Nishi Romero on 11-27-2024 Calcium [Mass/Vol] 9.1 mg/dL 7.6-11.0 [facility] Serum or plasma urea nitroge n measurement (mass/volume)Ordered By: Nishi Romero on 11-27-2024 Urea nitrogen [Mass/Vol] 24 mg/dL High 4-19 [facility] Sodium levelOrdered By: Evelyn Romero on 11-27-2024 Sodium [Moles/Vol] 137 mmol/L 133-145 [facility] Urinalysis, Completeon 11-27 RBC > 100 SEEN Normal 0-5 [facility] Comment on above: Order Comment: 119CL ROYER CATCH Performed By: #### L [id number], L100.0100 #### [facility] [address] [place], [address] WBC 10-25 SEEN Normal 0-5 [facility] Comment on above: Order Comment: 119CL ROYER CATCH Performed By: #### L [id number], L100.0100 #### [facility] [address] [place], [address] BACTERIA 0 SEEN Normal None Seen [facility] Comment on above: Order Comment: 119CL ROYER CATCH Performed By: #### L [id number], L100.0100 #### [facility] [address] [place], [address] EPI,SQUAMOUS 0 SEEN Normal 0-5 [facility] Comment on above: Order Comment: 119CL ROYER CATCH Performed By: #### L [id number], L100.0100 #### [facility] [address] [place], [address] Mucus Ql (Urine sed) 0 SEEN Normal [facility] Comment on above: Order Comment: 119CL ROYER CATCH Performed By: #### L [id number], L100.0100 #### [facility] [address] [place], [address] Bilirubin Test strip Ql (U)O rdered By: Nishi Romero on 11-26-2024 Bilirubin Ql (U) Negative Negative [facility] Ketones Test strip Ql (U)Ord ered By: Nishi Romero on 11-26-2024 Ketones Ql (U) Negative Negative [facility] Microscopic analysis of urin e for red blood cells (RBC)Ordered By: Nishi Romero on 11-26-2024 Microscopic analysis of urine for red blood cells (RBC) > 100 SEEN /hpf 0-5 [facility] Mucus LM Ql (Urine sed)Order ed By: Nishi Romero on 11-26-2024 Mucus Ql (Urine sed) 0 SEEN /hpf [facility] Nitrite Test strip Ql (U)Ord ered By: Nishi Romero on 11-26-2024 Nitrite Ql (U) Negative Negative [facility] Protein Test strip Ql (U)Ord ered By: Nishi Romero on 11-26-2024 Protein Ql (U) 100 mg/dl High Negative [facility] Squamous epithelial cells de tection in urine sediment by light microscopyOrdered By: Nishi Romero on 11-26-2024 Epithelial cells.squamous LM Ql (Urine sed) 0 SEEN /hpf 0-5 [facility] Urine clarityOrdered By: Yves Romero on 11-26-2024 Clarity (U) Turbid Clear [facility] Urine color determinationOrd ered By: Nishi Romero on 11-26-2024 Color (U) Yellow Yellow [facility] Urine cultureOrdered By: Yves Romero on 11-26-2024 Bacteria identified Cx Nom (U) Staphylococcus aureus Abnormal [facility] Urine glucose detectionOrder ed By: Nishi Romero on 11-26-2024 Glucose Ql (U) Normal mg/dl Normal [facility] Urine leukocyte esterase det ection by dipstickOrdered By: Nishi Romero on 11-26-2024 Leukocyte esterase Test strip Ql (U) 100 /ul High Negative [facility] Urine pHOrdered By: Nishi reese on 11-26-2024 pH (U) 7.0 [pH] 5.0 - 8.0 [facility] Urine sediment bacteria coun t by microscopy (number/high power field)Ordered By: Nishi Romero on 11-26-2024 Bacteria LM.HPF (Urine sed) [#/Area] 0 /[HPF] None Seen [facility] Urine specific gravity measu rementOrdered By: Nishi Romero on 11-26-2024 Specific gravity (U) [Rel density] 1.010 1.002-1.030 [facility] Urine urobilinogen measureme ntOrdered By: Nishi Romero on 11-26-2024 Urobilinogen Ql (U) Normal mg/dl Normal [facility] White blood cell countOrdere d By: Nishi Romero on 11-26-2024 White blood cell count 10-25 SEEN /hpf 0-5 [facility] CNOVon 10-12-2024 CNOV Office Visit (UROLST ) DENIZ KUMAR ([id number]) 1935 M Date Time Provider Department 10/12/24 10:45 AM DEMETRIO GILL UROLST During your visit today, we recorded the following information about you: Michelle Redd RN 10/12/2024 1:02 PM Signed PVR 0 Demetrio Gill MD 10/12/2024 1:02 PM Signed [facility] MALE PATIENT - HISTORY AND PHYSICAL EXAMINATION PATIENT: Deniz Kumar (89 year old) PCP: No primary care provider on file. CHIEF COMPLAINT: urge incontinence HISTORY OF PRESENT ILLNESS: 89 year old year old male with h/o SAH, HLD, gait abnormality being treated for PD with Sinemet, BPH, and OAB . Main complaint is urge incontinence - Drinks 2 cups of coffee, but no sweeteners, flavors or color. No alcohol drinking. - has Nighttime enuresis - endorsed urge incotninence - Never had prostate or bladder surgery before. Denied any radiation therapy. URINARY: NIGHTTIME FREQUENCY: 3-4 times per night IRRITATIVE - BOTHERSOME FREQUENCY: every 2-3 hours, - URGENCY: Yes - INCONTINENCE: Stress No / Urge Yes OBSTRUCTIVE - FORCE OF STREAM: weak - HESITANCY: Yes , sometimes - INTERMITTENCY: Yes - STRAINING: Yes - INCOMPLETE EMPTYING: Yes sometimes - DOUBLE VOIDING: Yes - POSTVOID DRIBBLING: Yes CURRENT URINARY STATUS: - INDWELLING CATHETER: No - CURRENT INTERMITTENT CATHETERIZATION: No - GROSS HEMATURIA: No - URINARY TRACT INFECTION: No PROMIS Global Health 01/10/2017 PROMIS Global Health Scale Physical Health Percentile 66 Mental Health Percentile 63 Percentiles provide an indication of how the patient's score ranks in relation to the general population. Higher percentile rankings indicate better function/quality of life. 50th percentile is the average of the general population and indicates half of respondents had a worse score. REVIEW OF SYSTEMS: Reviewed and otherwise non-contributory HISTORY: PAST MEDICAL HISTORY Diagnosis Date Benign prostatic hyperplasia with urinary obstruction Brain TIA 11/03/2018 Chronic nonallergic rhinitis 07/12/2016 Closed fracture of left ankle 06/23/2023 Diverticulosis of colon (without mention of hemorrhage) Diverticulosis of large intestine Erectile dysfunction 01/16/2018 Erectile dysfunction, unspecified erectile dysfunction type Essential hypertension 02/22/2006 Fall 06/22/2023 Hypertrophy of prostate with urinary obstruction and other lower urinary tract symptoms (LUTS) Internal hemorrhoids without mention of complication OAB (overactive bladder) Pure hypercholesterolemia SAH (subarachnoid hemorrhage) (HCC) 07/16/2023 Subdural hematoma (HCC) 06/21/2023 Thrombocytopenia, unspecified 2017 PAST SURGICAL HISTORY Procedure Laterality Date CATARACT EXTRACTION W/ INTRAOCULAR LENS IMPLANT HX Left 03/2019 Dr. Rivera COLONOSCOPY FLX DX W/COLLJ SPEC WHEN PFRMD 03/2004 Colonoscopy PAST SURGICAL HISTORY OF Left 06/23/2023 ORIF left ankle TONSILLECTOMY AND ADENOIDECTOMY UMBILICAL HERNIA REPAIR 5 OR OLDER 09/21/2021 Social History Tobacco Use Smoking status: Former Current packs/day: 0.50 Average packs/day: 0.5 packs/day for 5.0 years (2.5 ttl pk-yrs) Types: Cigarettes, Pipe Smokeless tobacco: Never Vaping Use Vaping status: Never Used Substance Use Topics Alcohol use: Yes Alcohol/week: 1.0 standard drink of alcohol Types: 1 Cans of beer per week Comment: or less. Drug use: Not Currently Types: Marijuana FAMILY HISTORY Problem Relation Age of Onset Prostate Cancer Father metastatic prostate Cancer Mother liver Hypertension Sister Lipids Sister MEDICATIONS: Current Outpatient Medications Medication Sig carbidopa-levodopa (SINEMET) 25-100 mg per tablet Take 1.5 tablet with breakfast, 1.5 tablet with lunch and 1.5 tablet with dinner (7AM, Noon and 5 PM). carbidopa-levodopa CR (SINEMET CR) 50-200 mg per tablet Take 1 tablet at 10PM. losartan (COZAAR) 100 mg tablet Take 100 mg by mouth once daily. metoprolol tartrate, short acting, (LOPRESSOR) 25 mg tablet Take 25 mg by mouth two times a day. potassium chloride ER (KLOR-CON) 20 mEq tablet Take 20 mEq by mouth two times a day. sennosides-docusate sodium (SENNA PLUS) 8.6-50 mg capsule Take 1 capsule by mouth two times a day. Morning and bedtime for constipation rivaroxaban (XARELTO) 10 mg tablet Take 10 mg by mouth once daily. finasteride (PROSCAR) 5 mg tablet Take 1 tablet by mouth once daily. melatonin 3 mg tablet Take 1 tablet by mouth daily at bedtime. aspirin, enteric coated (ASPIRIN, ENTERIC COATED) 81 mg EC tablet Take 1 tablet by mouth once daily. MULTIVITAMIN TAB Take one(1) tablet daily. vibegron (GEMTESA) 75 mg tablet Take 1 tablet by mouth once daily. Tadalafil (CIALIS) 5 mg tablet Take 1 tablet by mouth once daily as needed. Take 1-2 hours before sexual activity. mirabegron (M (more content not included)... Normal [facility] UA DIP, URINE (POC)on 2024 BILIRUBIN UA (POCT) Negative Negative [facility] CLARITY UA (POCT) Clear [facility] COLOR UA (POCT) Dark yellow [facility] GLUCOSE UA (POCT) Negative Negative mg/dL [facility] Hemoglobin Ql (U) Negative Negative [facility] Interpretation and review of laboratory results Abnormal [facility] KETONE UA (POCT) Trace Negative mg/dL [facility] LEUKOCYTES UA (POCT) Negative Negative [facility] NITRITE UA (POCT) Negative Negative [facility] PH UA (POCT) 6.5 4.5 - 8.0 [facility] Protein Ql (U) 100 mg/dL Abnormal Negative [facility] SPECIFIC GRAVITY UA (POCT) 1.02 1.005 - 1.030 [facility] UROBILINOGEN UA (POCT) 1 Gema l E.U./dL [facility] Location:[facility], [address] [place], [place], [id number] [place] [address] POINT OF CARE [facility] Absolute lymphocyte countOrd ered By: Nishi Romero on 10-05-2024 Lymphocytes Auto (Unsp spec) [#/Vol] 1.21 10*3/uL 0.83-4.51 [facility] Absolute neutrophil countOrd ered By: Nishi Romero on 10-05-2024 Neutrophils (Bld) [#/Vol] 1.2 10*3/uL Low 2.0-7.7 [facility] Anion gap in Serum or Plasma Ordered By: Nishi Romero on 10-05-2024 Anion gap [Moles/Vol] 10 mmol/L 5-15 [facility] Automated lymphocyte count a s percentage of total leukocytesOrdered By: Nishi Romero on 10-05-2024 Lymphocytes/100 WBC Auto (Unsp spec) 34.3 % 19-41 [facility] BUN/creatinine ratioOrdered By: Nishi Romero on 10-05-2024 Urea nitrogen/Creatinine [Mass ratio] 25.3 mg/mg High 10-20 [facility] Basophil percentageOrdered B y: Nishi Romero on 10-05-2024 Basophils/100 WBC (Bld) 0.3 % 0-1 [facility] Bilirubin, totalOrdered By: Nishi Romero on 10-05-2024 Bilirubin [Mass/Vol] 0.68 mg/dL 0.00-1.30 [facility] CBC W/Diff, Automatedon 04 PLT EST SLT DEC Normal ADEQ [facility] Comment on above: Order Comment: 119 Performed By: #### L [id number], L100.0100 #### [facility] [address] [place], [place], [id number] Carbon dioxide, total [Moles /volume] in Central venous bloodOrdered By: Nishi Romero on 10-05-2024 CO2 [Moles/Vol] 22.4 mmol/L 21.0-32.0 [facility] Chloride assayOrdered By: Marlon Romero on 10-05-2024 Chloride [Moles/Vol] 106 mmol/L 98-108 [facility] Comprehensive Metabolic Prof ilon 10-05-2024 Albumin [Mass/Vol] 3.6 g/dL Normal 3.4-4.8 [facility] Comment on above: Order Comment: 119 Performed By: #### L [id number], L100.0100 #### [facility] [address] [place], [address] Albumin/Globulin [Mass ratio] 1.4 {ratio} Normal 0.9-2.4 [facility] Comment on above: Order Comment: 119 Performed By: #### L [id number], L100.0100 #### [facility] [address] [place], [address] ALK PHOS 74 U/L Normal 40-129 [facility] Comment on above: Order Comment: 119 Performed By: #### L [id number], L100.0100 #### [facility] [address] [place], [address] ALT [Catalytic activity/Vol] 7 U/L Normal <=46 [facility] Comment on above: Order Comment: 119 Performed By: #### L [id number], L100.0100 #### [facility] [address] [place], [address] AST [Catalytic activity/Vol] 19 U/L Normal <=37 [facility] Comment on above: Order Comment: 119 Performed By: #### L [id number], L100.0100 #### [facility] [address] [place], [address] Bilirubin [Mass/Vol] 0.68 mg/dL Normal 0.00-1.30 [facility] Comment on above: Order Comment: 119 Performed By: #### L [id number], L100.0100 #### [facility] [address] [place], [address] BUN/CRE 25.3 RATIO High 10-20 [facility] Comment on above: Order Comment: 119 Performed By: #### L [id number], L100.0100 #### [facility] [address] [place], [address] Calcium [Mass/Vol] 8.9 mg/dL Normal 7.6-11.0 [facility] Comment on above: Order Comment: 119 Performed By: #### L [id number], L100.0100 #### [facility] [address] [place], [address] Chloride [Moles/Vol] 106 mmol/L Normal 98-108 [facility] Comment on above: Order Comment: 119 Performed By: #### L [id number], L100.0100 #### [facility] [address] [place], [address] CO2 [Moles/Vol] 22.4 mmol/L Normal 21.0-32.0 [facility] Comment on above: Order Comment: 119 Performed By: #### L [id number], L100.0100 #### [facility] [address] [place], [address] Creatinine [Mass/Vol] 0.96 mg/dL Normal 0.70-1.20 [facility] Comment on above: Order Comment: 119 Performed By: #### L [id number], L100.0100 #### [facility] [address] [place], [address] GAP 10 Normal 5-15 [facility] Comment on above: Order Comment: 119 Performed By: #### L [id number], L100.0100 #### [facility] [address] [place], [address] GFR/1.73 sq M.predicted among non-blacks MDRD (S/P/Bld) [Vol rate/Area] 76 mL/min/{1.73_m2} Normal >60 [facility] Comment on above: Order Comment: 119 Result Comment: mL/m in/1.73m2 CKD-EPI Creatinine Equation (2020) Performed By: #### L [id number], L100.0100 #### [facility] [address] [place], [address] Globulin (S) [Mass/Vol] 2.5 g/dL Normal 2.2-4.2 [facility] Comment on above: Order Comment: 119 Performed By: #### L [id number], L100.0100 #### [facility] [address] [place], [address] Glucose [Mass/Vol] 81 mg/dL Normal 70-99 [facility] Comment on above: Order Comment: 119 Performed By: #### L [id number], L100.0100 #### [facility] [address] [place], [address] Potassium [Moles/Vol] 4.2 mmol/L Normal 3.3-5.1 [facility] Comment on above: Order Comment: 119 Performed By: #### L [id number], L100.0100 #### [facility] [address] [place], [address] Sodium [Moles/Vol] 139 mmol/L Normal 133-145 [facility] Comment on above: Order Comment: 119 Performed By: #### L [id number], L100.0100 #### [facility] [address] [place], [address] T PROT 6.1 g/dL Normal 5.9-8.4 [facility] Comment on above: Order Comment: 119 Performed By: #### L [id number], L100.0100 #### [facility] [address] [place], [address] Urea nitrogen [Mass/Vol] 24 mg/dL High 4-19 [facility] Comment on above: Order Comment: 119 Performed By: #### L [id number], L100.0100 #### [facility] [address] [place], [address] Eosinophil percentageOrdered By: Nishi Romero on 10-05-2024 Eosinophils/100 WBC (Bld) 0.6 % 0-5 [facility] Erythrocyte distribution wid th ratioOrdered By: Nishi Romero on 10-05-2024 Erythrocyte distribution width (RBC) [Ratio] 13.7 % 11.6-14.6 [facility] Erythrocyte distribution wid th standard deviationOrdered By: Nishi Romero on 10-05-2024 Erythrocyte distribution width (RBC) [Ratio] 46.7 fl High 35.1-43.9 [facility] Glomerular filtration rate ( GFR) estimation/1.73 sq m using serum, plasma, or whole bOrdered By: Nishi Romero on 10-05-2024 GFR/1.73 sq M.predicted among non-blacks MDRD (S/P/Bld) [Vol rate/Area] 76 mL/min/{1.73_m2} >60 [facility] Comment on above: mL/min/1.73m2 CKD-EP I Creatinine Equation (2020) Hematocrit Auto (Bld) [Volum e fraction]Ordered By: Nishi Romero on 10-05-2024 Hematocrit (Bld) [Volume fraction] 39.8 % Low 40-54 [facility] Hemoglobin measurementOrdere d By: Nishi Romero on 10-05-2024 Hemoglobin (Bld) [Mass/Vol] 13.1 g/dL 13.0-16.5 [facility] Immature granulocytes/100 WB C Auto (Bld)Ordered By: Nishi Romero on 10-05-2024 Immature granulocytes/100 WBC (Bld) 0.800 % 0.0-0.9 [facility] Comment on above: IG% - Immature Granu locytes (promyelocytes, myelocytes and metamyelocytes) > 1% indicates that a LEFT SHIFT is Present. Laboratory - Chemistry and C hemistry - challengeOrdered By: Nishi Romeor on 10-05-2024 AST [Catalytic activity/Vol] 19 U/L <38 [facility] MCV (mean corpuscular volume ) determinationOrdered By: Nishi Romero on 10-05-2024 MCV (RBC) [Entitic vol] 92.6 fL 80-94 [facility] Magnesiumon 10-05-2024 Magnesium [Mass/Vol] 2.1 mg/dL Normal 1.5-2.2 [facility] Comment on above: Order Comment: 119 Performed By: #### L [id number], L100.0100 #### [facility] [address] [place], [address] Magnesium measurement (mass/ volume)Ordered By: Nishi Romero on 10-05-2024 Magnesium (Unsp spec) [Mass/Vol] 2.1 mg/dL 1.5-2.2 [facility] Mean corpuscular hemoglobin (MCH) determinationOrdered By: Nishi Romero on 10-05-2024 MCH (RBC) [Entitic mass] 30.5 pg 27.0-32.0 [facility] Mean corpuscular hemoglobin concentration (MCHC) determinationOrdered By: Nishimichael Romero on 10-05-2024 MCHC (RBC) [Mass/Vol] 32.9 g/dL 32-36 [facility] Mean platelet volume determi nationOrdered By: Nishi Romero on 10-05-2024 Platelet mean volume (Bld) [Entitic vol] 12.2 fL High 6.2-12.0 [facility] Monocyte percentageOrdered B y: Nishi Romero on 10-05-2024 Monocytes/100 WBC (Bld) 30.6 % High 0-10 [facility] Neutrophil percentageOrdered By: [facility] Heather on 10-05-2024 Neutrophils/100 WBC (Bld) 33.4 % Low 47-70 [facility] Nucleated red blood cell per centageOrdered By: Nishimichael Romero on 10-05-2024 Nucleated RBC/100 WBC (Bld) [Ratio] 0 % 0-5 [facility] PSA,Total - Annual Screenon 10-05-2024 PSA,TOT SCREEN 0.56 ng/mL Normal 0.02-4.00 [facility] Comment on above: Order Comment: 119 Result Comment: This test was performed using the [employer] tPSA method. Measured values of a patient??sample can vary depending on the testing procedure used. PSA values determined on patient samples by different testing procedures cannot be used interchangeably. If there is a change in PSA assays while monitoring therapy, sequential testing should be performed to confirm baseline values. Performed By: #### L [id number], L100.0100 #### [facility] [address] [place], [address] Platelet countOrdered By: Marlon Romero on 10-05-2024 Platelets (Bld) [#/Vol] 92 10*3/uL Low 150-450 [facility] Platelet estimateOrdered By: Nishi Romero on 10-05-2024 Platelets LM Ql (Bld) SLT DEC ADEQ [facility] Potassium measurement (mass/ volume)Ordered By: Nishi Romero on 10-05-2024 Potassium (Unsp spec) [Mass/Vol] 4.2 mmol/L 3.3-5.1 [facility] RBC Auto (Bld) [#/Vol]Ordere d By: Nishi Romero on 10-05-2024 RBC (Bld) [#/Vol] 4.30 10*6/uL Low 4.6-6.2 [facility] Serum creatinine measurement (mass/volume)Ordered By: Nishi Romero on 10-05-2024 Creatinine [Mass/Vol] 0.96 mg/dL 0.70-1.20 [facility] Serum globulin measurementOr dered By: Nishi Romero on 10-05-2024 Globulin (S) [Mass/Vol] 2.5 g/dL 2.2-4.2 [facility] Serum glucose measurement (m ass/volume)Ordered By: Nishi Romero on 10-05-2024 Glucose [Mass/Vol] 81 mg/dL 70-99 [facility] Serum or plasma alanine horan otransferase (ALT) measurementOrdered By: Nishi Romero on 10-05-2024 ALT [Catalytic activity/Vol] 7 U/L <47 [facility] Serum or plasma albumin sharon urement (mass/volume)Ordered By: Nishi Romero on 10-05-2024 Albumin [Mass/Vol] 3.6 g/dL 3.4-4.8 [facility] Serum or plasma albumin/glob ulin mass ratioOrdered By: Nishi Romero on 10-05-2024 Albumin/Globulin [Mass ratio] 1.4 {ratio} 0.9-2.4 [facility] Serum or plasma alkaline liam sphatase measurementOrdered By: Nishi Romero on 10-05-2024 ALP [Catalytic activity/Vol] 74 U/L 40-129 [facility] Serum or plasma calcium sharon urement (mass/volume)Ordered By: Nishi Romero on 10-05-2024 Calcium [Mass/Vol] 8.9 mg/dL 7.6-11.0 [facility] Serum or plasma urea nitroge n measurement (mass/volume)Ordered By: Nishi Romero on 10-05-2024 Urea nitrogen [Mass/Vol] 24 mg/dL High 4-19 [facility] Sodium levelOrdered By: Evelyn Romero on 10-05-2024 Sodium [Moles/Vol] 139 mmol/L 133-145 [facility] TSH DL <= 0.005 mIU/L QnOrde red By: Nishi Romero on 10-05-2024 TSH Qn 1.650 uIU/mL 0.300-4.200 [facility] Thyroid Stim Hormone (TSH)on 10-05-2024 TSH 1.650 uIU/mL Normal 0.300-4.200 [facility] Comment on above: Order Comment: 119 Performed By: #### L [id number], L100.0100 #### [facility] [address] [place], [address] Total proteinOrdered By: Yves Romero on 10-05-2024 Protein [Mass/Vol] 6.1 g/dL 5.9-8.4 [facility] Vitamin D,25 Hydroxyon 10-05 Vitamin D 25-OH 31.6 ng/mL Normal 30-100 [facility] Comment on above: Order Comment: 119 Result Comment: Christie min D Status Deficiency: <20 ng/mL (50nmol/L) Insufficiency: 20-30 ng/mL (50-75 nmol/L) Sufficiency: 30-100 ng/mL (75-250 nmol/L) Toxicity: >100 ng/mL (>250 nmol/L) Performed By: #### L [id number], L100.0100 #### [facility] [address] [place], [address] White blood cell (WBC) count Ordered By: Nishi Romero on 10-05-2024 WBC (Bld) [#/Vol] 3.5 10*3/uL Low 4.4-11.0 [facility] CNPNon 09-28-2024 CNPN Telephone (4CQ) DENIZ KUMAR ([id number]) 1935 M Date Time Provider Department 09/28/24 VADIM DERAS 4CQ During your visit today, we recorded the following information about you: Leanne Kauffman 09/28/2024 11:13 AM Signed Sister Gerri is calling to report patient is now residing at [facility] and seeing their provider, Patient admitted to [facility] at the end of 2023 Gerri received a letter for a missed appointment and was not aware of that appt or she would have called to cancel. Rachel Khalil MA 09/28/2024 12:03 PM Signed Updated chart and removed pcp Rachel Khalil MA Allergies As of Date: 09/28/2024 Noted Allergy Reaction SBJAOAL-KLK-ICU REDUCTASE INHIBIT*08/23/2023 17 - Myalgia Comments: Weakess, falls CLE[employer]IL [employer] STRENGTH 09/16/2018 7 - Swelling Date Reviewed: 09/04/2024 Reviewed by: Bonifacio Ledbetter Jr., MD - Fully Assessed Reason for Visit: Patient Update [1234] Prescriptions as of 09/28/2024 - carbidopa-levodopa (SINEMET) 25-100 mg per tablet Take 1.5 tablet with breakfast, 1.5 tablet with lunch and 1.5 tablet with dinner (7AM, Noon and 5 PM). - carbidopa-levodopa CR (SINEMET CR) 50-200 mg per tablet Take 1 tablet at 10PM. - losartan (COZAAR) 100 mg tablet Take 100 mg by mouth once daily. - metoprolol tartrate, short acting, (LOPRESSOR) 25 mg tablet Take 25 mg by mouth two times a day. - potassium chloride ER (KLOR-CON) 20 mEq tablet Take 20 mEq by mouth two times a day. - sennosides-docusate sodium (SENNA PLUS) 8.6-50 mg capsule Take 1 capsule by mouth two times a day. Morning and bedtime for constipation - Cholecalciferol, Vitamin D3, (VITAMIN D-3) 50 mcg (2,000 unit) cap Take 1 capsule by mouth once daily. - rivaroxaban (XARELTO) 10 mg tablet Take 10 mg by mouth once daily. - tolterodine (DETROL) 1 mg tablet Take 1 tablet by mouth two times a day. - lisinopril (ZESTRIL) 40 mg tablet Take 1 tablet by mouth once daily. - finasteride (PROSCAR) 5 mg tablet Take 1 tablet by mouth once daily. - melatonin 3 mg tablet Take 1 tablet by mouth daily at bedtime. - aspirin, enteric coated (ASPIRIN, ENTERIC COATED) 81 mg EC tablet Take 1 tablet by mouth once daily. - MULTIVITAMIN TAB Take one(1) tablet daily. Problem List As Of Date 09/28/2024 Noted Resolved Diverticulosis of large intestine [K57.30] 02/21/2024 Hyperlipidemia [E78.5] 08/28/2005 Essential hypertension [I10] 02/22/2006 Unspecified disorder of prostate [N42.9] 02/14/2007 07/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 [R79.89] 02/14/2007 07/12/2016 Dizziness and giddiness [R42] 08/22/2007 07/12/2016 Benign prostatic hyperplasia with urinary obstr*07/05/2010 Chronic nonallergic rhinitis [J31.0] 07/12/2016 02/21/2024 Thrombocytopenia, unspecified (HCC) [D69.6] 2017 Erectile dysfunction [N52.9] 01/16/2018 02/21/2024 Obesity, Class II, BMI 35-39.9 [E66.812] 07/28/2020 Urgency of urination [R39.15] 07/28/2020 Subdural hematoma (HCC) [S06.5XAA] 06/21/2023 Fall [W19.XXXA] 06/22/2023 Closed fracture of left ankle [S82.892A] 06/23/2023 02/21/2024 SAH (subarachnoid hemorrhage) (HCC) [I60.9] 07/16/2023 History of TIA (transient ischemic attack) [Z86*08/23/2023 Gait abnormality [R26.9] 08/23/2023 Edema of leg [R60.0] 02/21/2024 Encounter Status:Closed by RACHEL KHALIL on 09/28/24 Normal [facility] CNPNon 09-11-2024 CNPN Telephone (TOMY) DENIZ KUMAR ([id number]) 1935 M Date Time Provider Department 09/11/24 BONIFACIO LEDBETTER JR During your visit today, we recorded the following information about you: Claudia Das OCCA 09/11/2024 10:27 AM Signed Please contact patients sister, Gerri Barnes, at [phone] to assist with scheduling Consult for Urology. Thank you. ADRIAN Hall Lydia 09/11/2024 1:39 PM Signed 1st attempt lvm Claudia Das OCCA 09/17/2024 7:37 AM Signed In review of appointments, patient has been scheduled with Urology on 10/12/24. ADRIAN Hall Allergies As of Date: 09/11/2024 Noted Allergy Reaction [id number] REDUCTASE INHIBIT*08/23/2023 17 - Myalgia Comments: Weakess, falls CLEARASIL MAXIMUM STRENGTH 09/16/2018 7 - Swelling Date Reviewed: 09/04/2024 Reviewed by: Bonifacio Ledbetter Jr., MD - Fully Assessed Prescriptions as of 09/17/2024 - carbidopa-levodopa (SINEMET) 25-100 mg per tablet Take 1.5 tablet with breakfast, 1.5 tablet with lunch and 1.5 tablet with dinner (7AM, Noon and 5 PM). - carbidopa-levodopa CR (SINEMET CR) 50-200 mg per tablet Take 1 tablet at 10PM. - losartan (COZAAR) 100 mg tablet Take 100 mg by mouth once daily. - metoprolol tartrate, short acting, (LOPRESSOR) 25 mg tablet Take 25 mg by mouth two times a day. - potassium chloride ER (KLOR-CON) 20 mEq tablet Take 20 mEq by mouth two times a day. - sennosides-docusate sodium (SENNA PLUS) 8.6-50 mg capsule Take 1 capsule by mouth two times a day. Morning and bedtime for constipation - Cholecalciferol, Vitamin D3, (VITAMIN D-3) 50 mcg (2,000 unit) cap Take 1 capsule by mouth once daily. - rivaroxaban (XARELTO) 10 mg tablet Take 10 mg by mouth once daily. - tolterodine (DETROL) 1 mg tablet Take 1 tablet by mouth two times a day. - lisinopril (ZESTRIL) 40 mg tablet Take 1 tablet by mouth once daily. - finasteride (PROSCAR) 5 mg tablet Take 1 tablet by mouth once daily. - melatonin 3 mg tablet Take 1 tablet by mouth daily at bedtime. - aspirin, enteric coated (ASPIRIN, ENTERIC COATED) 81 mg EC tablet Take 1 tablet by mouth once daily. - MULTIVITAMIN TAB Take one(1) tablet daily. Problem List As Of Date 09/11/2024 Noted Resolved Diverticulosis of large intestine [K57.30] 02/21/2024 Hyperlipidemia [E78.5] 08/28/2005 Essential hypertension [I10] 02/22/2006 Unspecified disorder of prostate [N42.9] 02/14/2007 07/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 [R79.89] 02/14/2007 07/12/2016 Dizziness and giddiness [R42] 08/22/2007 07/12/2016 Benign prostatic hyperplasia with urinary obstr*07/05/2010 Chronic nonallergic rhinitis [J31.0] 07/12/2016 02/21/2024 Thrombocytopenia, unspecified (HCC) [D69.6] 2017 Erectile dysfunction [N52.9] 01/16/2018 02/21/2024 Obesity, Class II, BMI 35-39.9 [E66.812] 07/28/2020 Urgency of urination [R39.15] 07/28/2020 Subdural hematoma ([facility]) [S06.5XAA] 06/21/2023 Fall [W19.XXXA] 06/22/2023 Closed fracture of left ankle [S82.892A] 06/23/2023 02/21/2024 SAH (subarachnoid hemorrhage) ([facility]) [I60.9] 07/16/2023 History of TIA (transient ischemic attack) [Z86*08/23/2023 Gait abnormality [R26.9] 08/23/2023 Edema of leg [R60.0] 02/21/2024 Encounter Status:Closed by CLAUDIA DAS on 09/17/24 [facility] CNOVon 09-04-2024 CNOV Office Visit (TOMY ) DENIZ KUMAR ([id number]) 1935 M Date Time Provider Department 09/04/24 8:00 AM BONIFACIO LEDBETTER JR During your visit today, we recorded the following information about you: Pulse Respiration Weight 57/minute 18/minute 98.3 kg Bonifacio Ledbetter Jr., MD 09/04/2024 10:11 AM Signed ESTABLISHED PATIENT VISIT CHIEF COMPLAINT: Follow Up HISTORY OF PRESENT ILLNESS: Deniz Kumar is a 89 year old male, BMI 29.39 kg/m2 with a PMH significant for and per last office visit note of 06/26/25: 1. Gait abnormality - ICD9: 781.2, ICD10: R26.9 (primary diagnosis) 2. Leg weakness, bilateral - ICD9: 729.89, ICD10: R29.898 3. Speech disturbance, unspecified type - ICD9: 784.59, ICD10: R47.9 4. Ataxia - ICD9: 781.3, ICD10: R27.0 5. History of subdural hematoma - ICD9: V12.59, ICD10: Z86.79 6. Spinal stenosis in cervical region - ICD9: 723.0, ICD10: M48.02 7. Spinal stenosis of lumbar region without neurogenic claudication - ICD9: 724.02, ICD10: M48.061 Patient with multiple neurologic complaints as above, the primary being balance and gait impairment. Suspect multifactorial including history of SDH, but also significant spinal stenosis (reviewed both C and L spine images with patient today). Patient is not wanting further evaluation of spine, including not wanting at minimal a surgical evaluation. Already in therapy. Still question if also component of parkinsonism contributing to symptoms based on exam findings (I.e. increased tone, masked facies, . D/w pt and his family option of at providing treatment specific for possible Parkinson's disease to see if any response. Pt interested as would not non-invasive treatment. D/w them treatment options, and will place on trial of Sinemet 25/100mg TID with meals to see if any improvement. SE and ADRs d/w pt and family and advised if any they stop the med and contact us immediately. Will have patient return to clinic in 8 weeks to see if any improvement and determine if medication should be continued or increased.. If any abrupt progression of disease/symptoms they will contact us immediately and explained that for acute neurologic changes that they should be seen in the ER immediately. They agree with plan. Patient unaware if taking Sinemet, but SNF notes suggest he was getting it at least TID. Uncertain if meds given with meals. Patient received meds this AM before appointment and suspect SInemet given. Patient very limited historian. States has been doing PT. Pt feels PT has helped. Denies any falls since last visit. Feels PT loosens things up. Family feels strength has improved and walks a lot and does not seem to tire. Is using walker (wheels) which they describe as a blessing. Able to be independent in room. Feels better in the mornings. States sleep schedule is in spurts since in SNF last year. Feels memory pretty lousy still. Not taking any memory meds. States difficulties getting words out. Patient reports biggest problem is an "enlarged prostate". Asking for urology consult. Reports nocturia (4-5 times per night). Urgency and reports of rare incontinence. Unclear if seen by urology. Rare lower back pain. Denies RBD. REVIEW OF SYSTEMS GENERAL:No weight loss, malaise or fevers. HEENT:Negative for frequent or significant headaches, No changes in hearing or vision, no nose bleeds or other nasal problems NECK:Negative for lumps, goiter, pain and significant neck swelling RESPIRATORY: Negative for cough, wheezing or shortness of breath. CARDIOVASCULAR: Negative for chest pain, leg swelling or palpitations. GASTROINTESTINAL: Negative for abdominal discomfort, blood in stools or black stools or change in bowel habits GENITOURINARY: See HPI. MUSCULOSKELETAL: Negative for joint pain or swelling, back pain or muscle pain. NEUROLOGIC:Negative for focal numbness or weakness, headaches and dizziness or syncope, vision changes, speech/languag changes - EXCEPT that as per HPI above. LAB/IMAGING: Those performed since patient's last visit have been reviewed. WBC (k/uL) Date Value 02/14/2024 3.74 RBC (m/uL) Date Value 02/14/2024 4.85 Hemoglobin (g/dL) Date Value 02/14/2024 14.7 Hematocrit (%) Date Value 02/14/2024 43.5 MCV (fL) Date Value 02/14/2024 89.7 MCH (pg) Date Value 02/14/2024 30.3 MCHC (g/dL) Date Value 02/14/2024 33.8 RDW-CV (%) Date Value 02/14/2024 13.2 Platelet Count (k/uL) Date Value 02/14/2024 117 (L) MPV (fL) Date Value 02/14/2024 11.0 Glucose (mg/dL) Date Value 02/14/2024 88 BUN (mg/dL) Date Value 02/14/2024 18 Creatinine (mg/dL) Date Value 02/14/2024 0.82 Sodium (mmol/L) Date Value 02/14/2024 136 Potassium (mmol/L) Date Value 02/14/2024 4.2 Chloride (mmol/L) Date Value 02/14/2024 102 CO2 (mmol/L) Date Value 02/14/2024 26 Protein, Total ( (more content not included)... Normal [facility] CNPNon 08-26-2024 CNPN Telephone (INTMWS) DENIZ KUMAR ([id number]) 1935 M Date Time Provider Department 08/26/24 VADIM DERAS INTReeseWS During your visit today, we recorded the following information about you: Rosetta Zamorano LPN 08/26/2024 2:48 PM Signed Provider Confirmation Form, Special Supplemental Benefits for the Chronically Ill (SSBCI) completed by Dr. Deras and faxed to [phone]. PCP marking - Meets the defined criteria. Rosetta Zamorano LPN Allergies As of Date: 08/26/2024 Noted Allergy Reaction [id number] REDUCTASE INHIBIT*08/23/2023 17 - Myalgia Comments: Weakess, falls CLEARASIL MAXIMUM STRENGTH 09/16/2018 7 - Swelling Date Reviewed: 06/28/2024 Reviewed by: Bonifacio Ledbetter Jr., MD - Fully Assessed Reason for Visit: Forms [913] Prescriptions as of 09/11/2024 - carbidopa-levodopa (SINEMET) 25-100 mg per tablet Take 1.5 tablet with breakfast, 1.5 tablet with lunch and 1.5 tablet with dinner (7AM, Noon and 5 PM). - carbidopa-levodopa CR (SINEMET CR) 50-200 mg per tablet Take 1 tablet at 10PM. - losartan (COZAAR) 100 mg tablet Take 100 mg by mouth once daily. - metoprolol tartrate, short acting, (LOPRESSOR) 25 mg tablet Take 25 mg by mouth two times a day. - potassium chloride ER (KLOR-CON) 20 mEq tablet Take 20 mEq by mouth two times a day. - sennosides-docusate sodium (SENNA PLUS) 8.6-50 mg capsule Take 1 capsule by mouth two times a day. Morning and bedtime for constipation - Cholecalciferol, Vitamin D3, (VITAMIN D-3) 50 mcg (2,000 unit) cap Take 1 capsule by mouth once daily. - rivaroxaban (XARELTO) 10 mg tablet Take 10 mg by mouth once daily. - tolterodine (DETROL) 1 mg tablet Take 1 tablet by mouth two times a day. - lisinopril (ZESTRIL) 40 mg tablet Take 1 tablet by mouth once daily. - finasteride (PROSCAR) 5 mg tablet Take 1 tablet by mouth once daily. - melatonin 3 mg tablet Take 1 tablet by mouth daily at bedtime. - aspirin, enteric coated (ASPIRIN, ENTERIC COATED) 81 mg EC tablet Take 1 tablet by mouth once daily. - MULTIVITAMIN TAB Take one(1) tablet daily. Problem List As Of Date 08/26/2024 Noted Resolved Diverticulosis of large intestine [K57.30] 02/21/2024 Hyperlipidemia [E78.5] 08/28/2005 Essential hypertension [I10] 02/22/2006 Unspecified disorder of prostate [N42.9] 02/14/2007 07/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 [R79.89] 02/14/2007 07/12/2016 Dizziness and giddiness [R42] 08/22/2007 07/12/2016 Benign prostatic hyperplasia with urinary obstr*07/05/2010 Chronic nonallergic rhinitis [J31.0] 07/12/2016 02/21/2024 Thrombocytopenia, unspecified (HCC) [D69.6] 2017 Erectile dysfunction [N52.9] 01/16/2018 02/21/2024 Obesity, Class II, BMI 35-39.9 [E66.812] 07/28/2020 Urgency of urination [R39.15] 07/28/2020 Subdural hematoma (HCC) [S06.5XAA] 06/21/2023 Fall [W19.XXXA] 06/22/2023 Closed fracture of left ankle [S82.892A] 06/23/2023 02/21/2024 SAH (subarachnoid hemorrhage) (HCC) [I60.9] 07/16/2023 History of TIA (transient ischemic attack) [Z86*08/23/2023 Gait abnormality [R26.9] 08/23/2023 Edema of leg [R60.0] 02/21/2024 Encounter Status:Closed by ROSETTA ZAMORANO on 08/26/24 Normal [facility] Basic Metabolic Profile (BMP )on 07-13-2024 BUN/CRE 27.2 RATIO High 10-20 [facility] Comment on above: Performed By: #### L 100.0100, L500.4050 #### [facility] [address] [place], [address] CA,Total 8.9 mg/dL Normal 8.5-10.1 [facility] Comment on above: Performed By: #### L 100.0100, L500.4050 #### [facility] [address] [place], [address] Chloride [Moles/Vol] 106 mmol/L Normal 98-107 [facility] Comment on above: Performed By: #### L 100.0100, L500.4050 #### [facility] [address] [place], [address] CO2 [Moles/Vol] 27.0 mmol/L Normal 21.0-32.0 [facility] Comment on above: Performed By: #### L 100.0100, L500.4050 #### [facility] [address] [place], [address] Creatinine [Mass/Vol] 0.88 mg/dL Normal 0.70-1.30 [facility] Comment on above: Result Comment: The validity of the calculated GFR GFRAA in patients over 70 years has not been determined. Clinical correlation is essential. Performed By: #### L 100.0100, L500.4050 #### [facility] [address] [place], [address] EST GFR - AA 105 mL/min Normal >60 [facility] Comment on above: Result Comment: Afri can Faroese GFR Calc Performed By: #### L 100.0100, L500.4050 #### [facility] [address] [place], [address] GAP 5 Normal 5-15 [facility] Comment on above: Performed By: #### L 100.0100, L500.4050 #### [facility] [address] [place], [address] GFR/1.73 sq M.predicted among non-blacks MDRD (S/P/Bld) [Vol rate/Area] 87 mL/min/{1.73_m2} Normal >60 [facility] Comment on above: Result Comment: Non- GFR Calc Performed By: #### L 100.0100, L500.4050 #### [facility] [address] [place], [address] Glucose [Mass/Vol] 78 mg/dL Normal 74-106 [facility] Comment on above: Performed By: #### L 100.0100, L500.4050 #### [facility] [address] [place], [address] Potassium [Moles/Vol] 3.7 mmol/L Normal 3.5-5.1 [facility] Comment on above: Performed By: #### L 100.0100, L500.4050 #### [facility] [address] [place], [address] Sodium [Moles/Vol] 138 mmol/L Normal 136-145 [facility] Comment on above: Performed By: #### L 100.0100, L500.4050 #### [facility] [address] [place], [address] Urea nitrogen [Mass/Vol] 24 mg/dL High 7-18 [facility] Comment on above: Performed By: #### L 100.0100, L500.4050 #### [facility] [address] [place], [address] CBC-Complete Blood Cnt No Di maiteon 07-13-2024 Erythrocyte distribution width (RBC) [Ratio] 13.6 % Normal 11.6-14.6 [facility] Comment on above: Performed By: #### L 500.2500, L100.0500 #### [facility] [address] [place], [address] Hematocrit (Bld) [Volume fraction] 41.0 % Normal 40-54 [facility] Comment on above: Performed By: #### L 500.2500, L100.0500 #### [facility] [address] [place], [address] Hemoglobin (Bld) [Mass/Vol] 13.4 g/dL Normal 13.0-16.5 [facility] Comment on above: Performed By: #### L 500.2500, L100.0500 #### [facility] [address] [place], [address] MCH (RBC) [Entitic mass] 29.5 pg Normal 27.0-32.0 [facility] Comment on above: Performed By: #### L 500.2500, L100.0500 #### [facility] [address] [place], [address] MCHC (RBC) [Mass/Vol] 32.7 g/dL Normal 32-36 [facility] Comment on above: Performed By: #### L 500.2500, L100.0500 #### [facility] [address] [place], [address] MCV (RBC) [Entitic vol] 90.3 fL Normal 80-94 [facility] Comment on above: Performed By: #### L 500.2500, L100.0500 #### [facility] [address] [place], [address] Platelet mean volume (Bld) [Entitic vol] 11.6 fL Normal 6.2-12.0 [facility] Comment on above: Performed By: #### L 500.2500, L100.0500 #### [facility] [address] [place], [address] Platelets (Bld) [#/Vol] 119 10*3/uL Low 150-450 [facility] Comment on above: Performed By: #### L 500.2500, L100.0500 #### [facility] [address] [place], [address] RBC (Bld) [#/Vol] 4.54 10*6/uL Low 4.6-6.2 [facility] Comment on above: Performed By: #### L 500.2500, L100.0500 #### [facility] [address] [place], [address] RDW SD 44.9 fl High 35.1-43.9 [facility] Comment on above: Performed By: #### L 500.2500, L100.0500 #### [facility] [address] [place], [address] WBC (Bld) [#/Vol] 5.8 10*3/uL Normal 4.4-11.0 [facility] Comment on above: Performed By: #### L 500.2500, L100.0500 #### [facility] [address] [place], [address] CNOVon 06-26-2024 CNOV Office Visit (TOMY ) DENIZ KUMAR ([id number]) 1935 M Date Time Provider Department 06/26/24 10:20 AM BONIFACIO LEDBETTER JR During your visit today, we recorded the following information about you: Pulse Blood pressure Weight 68/minute 132/85 98.2 kg Amol RosaESTELA 06/28/2024 10:33 AM Signed Bonifacio Ledbetter Jr., MD 06/28/2024 10:33 AM Signed ESTABLISHED PATIENT VISIT CHIEF COMPLAINT: Follow Up HISTORY OF PRESENT ILLNESS: Deniz Kumar is a 89 year old male, There were no vitals taken for this visit. with a PMH significant for and per last office visit of 03/13/24: 1. Ataxia - ICD9: 781.3, ICD10: R27.0 (primary diagnosis) 2. Gait abnormality - ICD9: 781.2, ICD10: R26.9 3. Leg weakness, bilateral - ICD9: 729.89, ICD10: R29.898 4. Facial droop - ICD9: 781.94, ICD10: R29.810 5. Tremor - ICD9: 781.0, ICD10: R25.1 6. Speech disturbance, unspecified type - ICD9: 784.59, ICD10: R47.9 7. History of subdural hematoma - ICD9: V12.59, ICD10: Z86.79 8. Spinal stenosis in cervical region - ICD9: 723.0, ICD10: M48.02 Patient with multiple complaints as above, as well as abnormal neurologic examination concerning of unsteady gait, as well as findings possibly suggestive of Parkinsonism. While pt does have noted history of a traumatic SDH, symptoms of gait disturbance were present even prior Unclear at this time, if in fact pt with PD, alternative dx or whether symptoms multifactorial. Change in language as well as possible facial weakness would suggest intracranial cause of symptoms. Increased tone in LUE could be due to intracranial or C spine etiology which would also contribute to gait disturbance (I.e. significant spinal stenosis). Also question whether subjective weakness or abnormal gait due to a lumbar disorder. Finally and as above, all symptoms possible secondary to suspected underlying PD. Ddx d/w pt and his family. Will proceed first with brain and spine imaging at levels above (MRIs). If MRIs unremarkable for cause, then feel appropriate to place on trial of Sinemet 25/100mg TID with meals to see if improvement of symptoms. They agree with plan. Pt to follow up after imaging complete. MRI brain/C/L spine completed and per rad reports: Acute Change: There is no evidence of restricted diffusion to suggest an acute infarct. Hemorrhage: There are chronic microhemorrhages in the left cerebral white matter most pronounced posteriorly as well as a small volume of chronic hemosiderin deposition in the posterior left cerebral sulci. No acute intracranial hemorrhage. Mass Lesion/ Mass Effect: No evidence of an intracranial mass or extra-axial fluid collection. No significant mass effect. Chronic Change: Patchy nonspecific T2 hyperintense signal in the white matter, likely secondary to chronic small vessel ischemic disease. Prominent perivascular spaces versus chronic lacunar infarcts in the basal ganglia bilaterally. Small chronic infarcts in the cerebellum. Parenchyma: Generalized volume loss. The brain parenchyma is otherwise within normal limits of signal intensity and morphology. Ventricles: Ventriculomegaly corresponds to the degree of parenchymal volume loss. Cervical spine degenerative changes most pronounced at C4-5 and C5-6. Lumbar spine degenerative changes most pronounced at L3-4. C4-C5: Disc osteophyte complex, ligamentum flavum thickening, and facet and uncovertebral hypertrophy with moderate spinal canal narrowing and severe bilateral neural foramen narrowing. C5-C6: Disc osteophyte complex, ligamentum flavum thickening, and facet and uncovertebral hypertrophy with severe spinal canal narrowing as well as moderate right and severe left neural foramen narrowing. L3-L4: Disc bulge, facet hypertrophy, and ligamentum flavum thickening with moderate central spinal canal narrowing, severe narrowing of both subarticular recesses, and moderate bilateral neural foramen narrowing. L4-L5: Disc bulge, facet hypertrophy, and ligamentum flavum thickening with diffuse moderate spinal canal narrowing and mild left and moderate right neural foramen narrowing. Patient had fall in May 2024 - states just got up one morning and states had no balance. States was taken to the hospital. Patient with limited history of what happened in [facility] and I do not have complete hospital records. Those records in EPIC reviewed. No mention of acute intracranial process or other acute finding on imaging. D/c to [facility]. Patient reporting bladder incontinence - pt blaming on enlarged prostate. Family disagrees and feels a regular problem. No numbness or tingling. Balance is primary issue per family - balance issues as soon as patient stands up. When asked about weakness, states he does not think weakness is the right word but cannot explain it. Also having lower back pain - w (more content not included)... Normal [facility] CBC W/Diff, Automatedon 12- Absolute Neut Normal 2.0-7.7 [facility] Comment on above: Result Comment: Canc elled via OM: Order cancelled - Patient discharged Performed By: #### L 500.4050, L100.0100 ####[facility] [address] [place], [address] HCT Normal 40-54 [facility] Comment on above: Result Comment: Canc elled via OM: Order cancelled - Patient discharged Performed By: #### L 500.4050, L100.0100 ####[facility] [address] [place], [address] HGB Normal 13.0-16.5 [facility] Comment on above: Result Comment: Canc elled via OM: Order cancelled - Patient discharged Performed By: #### L 500.4050, L100.0100 ####[facility] [address] [place], [address] MCH Normal 27.0-32.0 [facility] Comment on above: Result Comment: Canc elled via OM: Order cancelled - Patient discharged Performed By: #### L 500.4050, L100.0100 ####[facility] [address] [place], [address] MCHC Normal 32-36 [facility] Comment on above: Result Comment: Canc elled via OM: Order cancelled - Patient discharged Performed By: #### L 500.4050, L100.0100 ####[facility] [address] [place], [address] MCV Normal 80-94 [facility] Comment on above: Result Comment: Canc elled via OM: Order cancelled - Patient discharged Performed By: #### L 500.4050, L100.0100 ####[facility] [address] [place], [address] NEUT% Normal 47-70 [facility] Comment on above: Result Comment: Canc elled via OM: Order cancelled - Patient discharged Performed By: #### L 500.4050, L100.0100 ####[facility] [address] [place], [address] PLT Normal 150-450 [facility] Comment on above: Result Comment: Canc elled via OM: Order cancelled - Patient discharged Performed By: #### L 500.4050, L100.0100 ####[facility] [address] [place], [address] RBC Normal 4.6-6.2 [facility] Comment on above: Result Comment: Canc elled via OM: Order cancelled - Patient discharged Performed By: #### L 500.4050, L100.0100 ####[facility] [address] [place], [address] RDW CV Normal 11.6-14.6 [facility] Comment on above: Result Comment: Canc elled via OM: Order cancelled - Patient discharged Performed By: #### L 500.4050, L100.0100 ####[facility] [address] [place], [address] RDW SD Normal 35.1-43.9 [facility] Comment on above: Result Comment: Canc elled via OM: Order cancelled - Patient discharged Performed By: #### L 500.4050, L100.0100 ####[facility] [address] [place], [address] WBC Normal 4.4-11.0 [facility] Comment on above: Result Comment: Canc elled via OM: Order cancelled - Patient discharged Performed By: #### L 500.4050, L100.0100 ####[facility] [address] [place], [address] Comprehensive Metabolic Prof giorgion 06-17-2024 ALB Normal 3.2-5.0 [facility] Comment on above: Result Comment: Canc elled via OM: Order cancelled - Patient discharged Performed By: #### L 500.4050, L100.0100 ####[facility] [address] [place], [address] ALK P Normal 45-117 [facility] Comment on above: Result Comment: Canc elled via OM: Order cancelled - Patient discharged Performed By: #### L 500.4050, L100.0100 ####[facility] [address] [place], [address] ALT Normal 16-61 [facility] Comment on above: Result Comment: Canc elled via OM: Order cancelled - Patient discharged Performed By: #### L 500.4050, L100.0100 ####[facility] [address] [place], [address] AST Normal 15-37 [facility] Comment on above: Result Comment: Canc elled via OM: Order cancelled - Patient discharged Performed By: #### L 500.4050, L100.0100 ####[facility] [address] [place], [address] BUN Normal 7-18 [facility] Comment on above: Result Comment: Canc elled via OM: Order cancelled - Patient discharged Performed By: #### L 500.4050, L100.0100 ####[facility] [address] [place], [address] BUN/CRE Normal 10-20 [facility] Comment on above: Result Comment: Canc elled via OM: Order cancelled - Patient discharged Performed By: #### L 500.4050, L100.0100 ####[facility] [address] [place], [address] CA,Total Normal 8.5-10.1 [facility] Comment on above: Result Comment: Canc elled via OM: Order cancelled - Patient discharged Performed By: #### L 500.4050, L100.0100 ####[facility] [address] [place], [address] CL Normal 98-107 [facility] Comment on above: Result Comment: Canc elled via OM: Order cancelled - Patient discharged Performed By: #### L 500.4050, L100.0100 ####[facility] [address] [place], [address] CO2 Normal 21.0-32.0 [facility] Comment on above: Result Comment: Canc elled via OM: Order cancelled - Patient discharged Performed By: #### L 500.4050, L100.0100 ####[facility] [address] [place], [address] CREAT,SERUM Normal 0.70-1.30 [facility] Comment on above: Result Comment: Canc elled via OM: Order cancelled - Patient discharged Performed By: #### L 500.4050, L100.0100 ####[facility] [address] [place], [address] EST GFR Normal >60 [facility] Comment on above: Result Comment: Canc elled via OM: Order cancelled - Patient discharged Performed By: #### L 500.4050, L100.0100 ####[facility] [address] [place], [address] EST GFR - AA Normal >60 [facility] Comment on above: Result Comment: Canc elled via OM: Order cancelled - Patient discharged Performed By: #### L 500.4050, L100.0100 ####[facility] [address] [place], [address] GAP Normal 5-15 [facility] Comment on above: Result Comment: Canc elled via OM: Order cancelled - Patient discharged Performed By: #### L 500.4050, L100.0100 ####[facility] [address] [place], [address] GLU Normal 74-106 [facility] Comment on above: Result Comment: Canc elled via OM: Order cancelled - Patient discharged Performed By: #### L 500.4050, L100.0100 ####[facility] [address] [place], [address] Potassium Normal 3.5-5.1 [facility] Comment on above: Result Comment: Canc elled via OM: Order cancelled - Patient discharged Performed By: #### L 500.4050, L100.0100 ####[facility] [address] [place], [address] T BILI Normal 0.20-1.00 [facility] Comment on above: Result Comment: Canc elled via OM: Order cancelled - Patient discharged Performed By: #### L 500.4050, L100.0100 ####[facility] [address] [place], [address] T PROT Normal 6.4-8.2 [facility] Comment on above: Result Comment: Canc elled via OM: Order cancelled - Patient discharged Performed By: #### L 500.4050, L100.0100 ####[facility] [address] [place], [address] Comprehensive Metabolic Profil Normal 136-145 [facility] Comment on above: Result Comment: Canc elled via OM: Order cancelled - Patient discharged Performed By: #### L 500.4050, L100.0100 ####[facility] [address] [place], [address] Basic Metabolic Profile (BMP )on 06-15-2024 BUN/CRE 19.0 RATIO Normal 10-20 [facility] Comment on above: Order Comment: 208.1 Performed By: #### L 500.2500, L100.0500 #### [facility] [address] [place], [address] CA,Total 8.8 mg/dL Normal 8.5-10.1 [facility] Comment on above: Order Comment: 208.1 Performed By: #### L 500.2500, L100.0500 #### [facility] [address] [place], [address] Chloride [Moles/Vol] 105 mmol/L Normal 98-107 [facility] Comment on above: Order Comment: . Performed By: #### L 500.2500, L100.0500 #### [facility] [address] [place], [address] CO2 [Moles/Vol] 25.0 mmol/L Normal 21.0-32.0 [facility] Comment on above: Order Comment: 208. Performed By: #### L 500.2500, L100.0500 #### [facility] [address] [place], [address] Creatinine [Mass/Vol] 0.95 mg/dL Normal 0.70-1.30 [facility] Comment on above: Order Comment: 208.1 Result Comment: The validity of the calculated GFR GFRAA in patients over 70 years has not been determined. Clinical correlation is essential. Performed By: #### L 500.2500, L100.0500 #### [facility] [address] [place], [address] EST GFR - AA 97 mL/min Normal >60 [facility] Comment on above: Order Comment: 208.1 Result Comment: Afri can Faroese GFR Calc Performed By: #### L 500.2500, L100.0500 #### [facility] [address] [place], [address] GAP 8 Normal 5-15 [facility] Comment on above: Order Comment: 208.1 Performed By: #### L 500.2500, L100.0500 #### [facility] [address] [place], [address] GFR/1.73 sq M.predicted among non-blacks MDRD (S/P/Bld) [Vol rate/Area] 80 mL/min/{1.73_m2} Normal >60 [facility] Comment on above: Order Comment: 208.1 Result Comment: Non- GFR Calc Performed By: #### L 500.2500, L100.0500 #### [facility] [address] [place], [address] Glucose [Mass/Vol] 77 mg/dL Normal 74-106 [facility] Comment on above: Order Comment: 208.1 Performed By: #### L 500.2500, L100.0500 #### [facility] [address] [place], [address] Potassium [Moles/Vol] 3.6 mmol/L Normal 3.5-5.1 [facility] Comment on above: Order Comment: 208.1 Performed By: #### L 500.2500, L100.0500 #### [facility] [address] [place], [address] Sodium [Moles/Vol] 138 mmol/L Normal 136-145 [facility] Comment on above: Order Comment: 208.1 Performed By: #### L 500.2500, L100.0500 #### [facility] [address] [place], [address] Urea nitrogen [Mass/Vol] 18 mg/dL Normal 7-18 [facility] Comment on above: Order Comment: 208.1 Performed By: #### L 500.2500, L100.0500 #### [facility] [address] [place], [address] CBC-Complete Blood Cnt No Chichi aroraon 06-15-2024 Erythrocyte distribution width (RBC) [Ratio] 12.9 % Normal 11.6-14.6 [facility] Comment on above: Order Comment: 208.1 Performed By: #### L 500.2500, L100.0500 #### [facility] [address] [place], [address] Hematocrit (Bld) [Volume fraction] 41.8 % Normal 40-54 [facility] Comment on above: Order Comment: 208.1 Performed By: #### L 500.2500, L100.0500 #### [facility] [address] [place], [address] Hemoglobin (Bld) [Mass/Vol] 13.9 g/dL Normal 13.0-16.5 [facility] Comment on above: Order Comment: 208.1 Performed By: #### L 500.2500, L100.0500 #### [facility] [address] [place], [address] MCH (RBC) [Entitic mass] 30.0 pg Normal 27.0-32.0 [facility] Comment on above: Order Comment: 208.1 Performed By: #### L 500.2500, L100.0500 #### [facility] [address] [place], [address] MCHC (RBC) [Mass/Vol] 33.3 g/dL Normal 32-36 [facility] Comment on above: Order Comment: 208.1 Performed By: #### L 500.2500, L100.0500 #### [facility] [address] [place], [address] MCV (RBC) [Entitic vol] 90.3 fL Normal 80-94 [facility] Comment on above: Order Comment: 208.1 Performed By: #### L 500.2500, L100.0500 #### [facility] [address] [place], [address] Platelet mean volume (Bld) [Entitic vol] 11.7 fL Normal 6.2-12.0 [facility] Comment on above: Order Comment: 208.1 Performed By: #### L 500.2500, L100.0500 #### [facility] [address] [place], [address] Platelets (Bld) [#/Vol] 117 10*3/uL Low 150-450 [facility] Comment on above: Order Comment: 208.1 Performed By: #### L 500.2500, L100.0500 #### [facility] [address] [place], [address] RBC (Bld) [#/Vol] 4.63 10*6/uL Normal 4.6-6.2 [facility] Comment on above: Order Comment: 208.1 Performed By: #### L 500.2500, L100.0500 #### [facility] [address] [place], [address] RDW SD 42.1 fl Normal 35.1-43.9 [facility] Comment on above: Order Comment: 208.1 Performed By: #### L 500.2500, L100.0500 #### [facility] [address] [place], [address] WBC (Bld) [#/Vol] 6.7 10*3/uL Normal 4.4-11.0 [facility] Comment on above: Order Comment: 208.1 Performed By: #### L 500.2500, L100.0500 #### [facility] [address] [place], [address] Magnesiumon 06-15-2024 Magnesium [Mass/Vol] 2.0 mg/dL Normal 1.6-2.6 [facility] Comment on above: Order Comment: 208.1 Performed By: #### L 500.2500, L100.0500 #### [facility] [address] [place], [address] CBC W/Diff, Automatedon 12-1 Absolute Neut Normal 2.0-7.7 [facility] Comment on above: Result Comment: Canc elled via OM: Order cancelled - Patient discharged Performed By: #### L 500.2500, L100.0500 #### [facility] [address] [place], [address] HCT Normal 40-54 [facility] Comment on above: Result Comment: Canc elled via OM: Order cancelled - Patient discharged Performed By: #### L 500.2500, L100.0500 #### [facility] [address] [place], [address] HGB Normal 13.0-16.5 [facility] Comment on above: Result Comment: Canc elled via OM: Order cancelled - Patient discharged Performed By: #### L 500.2500, L100.0500 #### [facility] [address] [place], [address] MCH Normal 27.0-32.0 [facility] Comment on above: Result Comment: Canc elled via OM: Order cancelled - Patient discharged Performed By: #### L 500.2500, L100.0500 #### [facility] [address] [place], [address] MCHC Normal 32-36 [facility] Comment on above: Result Comment: Canc elled via OM: Order cancelled - Patient discharged Performed By: #### L 500.2500, L100.0500 #### [facility] [address] [place], [address] MCV Normal 80-94 [facility] Comment on above: Result Comment: Canc elled via OM: Order cancelled - Patient discharged Performed By: #### L 500.2500, L100.0500 #### [facility] [address] [place], [address] NEUT% Normal 47-70 [facility] Comment on above: Result Comment: Canc elled via OM: Order cancelled - Patient discharged Performed By: #### L 500.2500, L100.0500 #### [facility] [address] [place], [address] PLT Normal 150-450 [facility] Comment on above: Result Comment: Canc elled via OM: Order cancelled - Patient discharged Performed By: #### L 500.2500, L100.0500 #### [facility] [address] [place], [address] RBC Normal 4.6-6.2 [facility] Comment on above: Result Comment: Canc elled via OM: Order cancelled - Patient discharged Performed By: #### L 500.2500, L100.0500 #### [facility] [address] [place], [address] RDW CV Normal 11.6-14.6 [facility] Comment on above: Result Comment: Canc elled via OM: Order cancelled - Patient discharged Performed By: #### L 500.2500, L100.0500 #### [facility] [address] [place], [address] RDW SD Normal 35.1-43.9 [facility] Comment on above: Result Comment: Canc elled via OM: Order cancelled - Patient discharged Performed By: #### L 500.2500, L100.0500 #### [facility] [address] [place], [address] WBC Normal 4.4-11.0 [facility] Comment on above: Result Comment: Canc elled via OM: Order cancelled - Patient discharged Performed By: #### L 500.2500, L100.0500 #### [facility] [address] [place], [address] Comprehensive Metabolic Prof danielle 06-10-2024 ALB Normal 3.2-5.0 [facility] Comment on above: Result Comment: Canc elled via OM: Order cancelled - Patient discharged Performed By: #### L 500.2500, L100.0500 #### [facility] [address] [place], [address] ALK P Normal 45-117 [facility] Comment on above: Result Comment: Canc elled via OM: Order cancelled - Patient discharged Performed By: #### L 500.2500, L100.0500 #### [facility] [address] [place], [address] ALT Normal 16-61 [facility] Comment on above: Result Comment: Canc elled via OM: Order cancelled - Patient discharged Performed By: #### L 500.2500, L100.0500 #### [facility] [address] [place], [address] AST Normal 15-37 [facility] Comment on above: Result Comment: Canc elled via OM: Order cancelled - Patient discharged Performed By: #### L 500.2500, L100.0500 #### [facility] [address] [place], [address] BUN Normal 7-18 [facility] Comment on above: Result Comment: Canc elled via OM: Order cancelled - Patient discharged Performed By: #### L 500.2500, L100.0500 #### [facility] [address] [place], [address] BUN/CRE Normal 10-20 [facility] Comment on above: Result Comment: Canc elled via OM: Order cancelled - Patient discharged Performed By: #### L 500.2500, L100.0500 #### [facility] [address] [place], [address] CA,Total Normal 8.5-10.1 [facility] Comment on above: Result Comment: Canc elled via OM: Order cancelled - Patient discharged Performed By: #### L 500.2500, L100.0500 #### [facility] [address] [place], [address] CL Normal 98-107 [facility] Comment on above: Result Comment: Canc elled via OM: Order cancelled - Patient discharged Performed By: #### L 500.2500, L100.0500 #### [facility] [address] [place], [address] CO2 Normal 21.0-32.0 [facility] Comment on above: Result Comment: Canc elled via OM: Order cancelled - Patient discharged Performed By: #### L 500.2500, L100.0500 #### [facility] [address] [place], [address] CREAT,SERUM Normal 0.70-1.30 [facility] Comment on above: Result Comment: Canc elled via OM: Order cancelled - Patient discharged Performed By: #### L 500.2500, L100.0500 #### [facility] [address] [place], [address] EST GFR Normal >60 [facility] Comment on above: Result Comment: Canc elled via OM: Order cancelled - Patient discharged Performed By: #### L 500.2500, L100.0500 #### [facility] [address] [place], [address] EST GFR - AA Normal >60 [facility] Comment on above: Result Comment: Canc elled via OM: Order cancelled - Patient discharged Performed By: #### L 500.2500, L100.0500 #### [facility] [address] [place], [address] GAP Normal 5-15 [facility] Comment on above: Result Comment: Canc elled via OM: Order cancelled - Patient discharged Performed By: #### L 500.2500, L100.0500 #### [facility] [address] [place], [address] GLU Normal 74-106 [facility] Comment on above: Result Comment: Canc elled via OM: Order cancelled - Patient discharged Performed By: #### L 500.2500, L100.0500 #### [facility] [address] [place], [address] Potassium Normal 3.5-5.1 [facility] Comment on above: Result Comment: Canc elled via OM: Order cancelled - Patient discharged Performed By: #### L 500.2500, L100.0500 #### [facility] [address] [place], [address] T BILI Normal 0.20-1.00 [facility] Comment on above: Result Comment: Canc elled via OM: Order cancelled - Patient discharged Performed By: #### L 500.2500, L100.0500 #### [facility] [address] [place], [address] T PROT Normal 6.4-8.2 [facility] Comment on above: Result Comment: Canc elled via OM: Order cancelled - Patient discharged Performed By: #### L 500.2500, L100.0500 #### [facility] [address] [place], [address] Comprehensive Metabolic Profil Normal 136-145 [facility] Comment on above: Result Comment: Canc elled via OM: Order cancelled - Patient discharged Performed By: #### L 500.2500, L100.0500 #### [facility] [address] [place], [address] Basic Metabolic Profile (BMP )on 06-08-2024 BUN/CRE 25.7 RATIO High 10-20 [facility] Comment on above: Order Comment: 208 Performed By: #### L 500.2500, L100.0500 #### [facility] [address] [place], [address] CA,Total 8.9 mg/dL Normal 8.5-10.1 [facility] Comment on above: Order Comment: 208 Performed By: #### L 500.2500, L100.0500 #### [facility] [address] [place], [address] Chloride [Moles/Vol] 107 mmol/L Normal 98-107 [facility] Comment on above: Order Comment: 208 Performed By: #### L 500.2500, L100.0500 #### [facility] [address] [place], [address] CO2 [Moles/Vol] 28.0 mmol/L Normal 21.0-32.0 [facility] Comment on above: Order Comment: 208 Performed By: #### L 500.2500, L100.0500 #### [facility] [address] [place], [address] Creatinine [Mass/Vol] 0.97 mg/dL Normal 0.70-1.30 [facility] Comment on above: Order Comment: 208 Result Comment: The validity of the calculated GFR GFRAA in patients over 70 years has not been determined. Clinical correlation is essential. Performed By: #### L 500.2500, L100.0500 #### [facility] [address] [place], [address] EST GFR - AA 94 mL/min Normal >60 [facility] Comment on above: Order Comment: 208 Result Comment: Afri can Faroese GFR Calc Performed By: #### L 500.2500, L100.0500 #### [facility] [address] [place], [address] GAP 5 Normal 5-15 [facility] Comment on above: Order Comment: 208 Performed By: #### L 500.2500, L100.0500 #### [facility] [address] [place], [address] GFR/1.73 sq M.predicted among non-blacks MDRD (S/P/Bld) [Vol rate/Area] 77 mL/min/{1.73_m2} Normal >60 [facility] Comment on above: Order Comment: 208 Result Comment: Non- GFR Calc Performed By: #### L 500.2500, L100.0500 #### [facility] [address] [place], [address] Glucose [Mass/Vol] 86 mg/dL Normal 74-106 [facility] Comment on above: Order Comment: 208 Performed By: #### L 500.2500, L100.0500 #### [facility] [address] [place], [address] Potassium [Moles/Vol] 4.0 mmol/L Normal 3.5-5.1 [facility] Comment on above: Order Comment: 208 Performed By: #### L 500.2500, L100.0500 #### [facility] [address] [place], [address] Sodium [Moles/Vol] 140 mmol/L Normal 136-145 [facility] Comment on above: Order Comment: 208 Performed By: #### L 500.2500, L100.0500 #### [facility] [address] [place], [address] Urea nitrogen [Mass/Vol] 25 mg/dL High 7-18 [facility] Comment on above: Order Comment: 208 Performed By: #### L 500.2500, L100.0500 #### [facility] [address] [place], [address] CBC-Complete Blood Cnt No Di ffon 06-08-2024 Erythrocyte distribution width (RBC) [Ratio] 12.9 % Normal 11.6-14.6 [facility] Comment on above: Order Comment: 208 Performed By: #### L 500.2500, L100.0500 #### [facility] [address] [place], [address] Hematocrit (Bld) [Volume fraction] 41.8 % Normal 40-54 [facility] Comment on above: Order Comment: 208 Performed By: #### L 500.2500, L100.0500 #### [facility] [address] [place], [address] Hemoglobin (Bld) [Mass/Vol] 13.7 g/dL Normal 13.0-16.5 [facility] Comment on above: Order Comment: 208 Performed By: #### L 500.2500, L100.0500 #### [facility] [address] [place], [address] MCH (RBC) [Entitic mass] 29.9 pg Normal 27.0-32.0 [facility] Comment on above: Order Comment: 208 Performed By: #### L 500.2500, L100.0500 #### [facility] [address] [place], [address] MCHC (RBC) [Mass/Vol] 32.8 g/dL Normal 32-36 [facility] Comment on above: Order Comment: 208 Performed By: #### L 500.2500, L100.0500 #### [facility] [address] [place], [address] MCV (RBC) [Entitic vol] 91.3 fL Normal 80-94 [facility] Comment on above: Order Comment: 208 Performed By: #### L 500.2500, L100.0500 #### [facility] [address] [place], [address] Platelet mean volume (Bld) [Entitic vol] 11.7 fL Normal 6.2-12.0 [facility] Comment on above: Order Comment: 208 Performed By: #### L 500.2500, L100.0500 #### [facility] [address] [place], [address] Platelets (Bld) [#/Vol] 150 10*3/uL Normal 150-450 [facility] Comment on above: Order Comment: 208 Performed By: #### L 500.2500, L100.0500 #### [facility] [address] [place], [address] RBC (Bld) [#/Vol] 4.58 10*6/uL Low 4.6-6.2 [facility] Comment on above: Order Comment: 208 Performed By: #### L 500.2500, L100.0500 #### [facility] [address] [place], [address] RDW SD 42.9 fl Normal 35.1-43.9 [facility] Comment on above: Order Comment: 208 Performed By: #### L 500.2500, L100.0500 #### [facility] [address] [place], [address] WBC (Bld) [#/Vol] 5.5 10*3/uL Normal 4.4-11.0 [facility] Comment on above: Order Comment: 208 Performed By: #### L 500.2500, L100.0500 #### [facility] Laboratory [address] [place], [address] Magnesiumon 06-08-2024 Magnesium [Mass/Vol] 2.1 mg/dL Normal 1.6-2.6 [facility] Comment on above: Order Comment: 208 Performed By: #### L 500.2500, L100.0500 #### [facility] [address] [place], [address] CBC W/Diff, Automatedon 12-0 Absolute Neut Normal 2.0-7.7 [facility] Comment on above: Result Comment: Canc elled via OM: Order cancelled - Patient discharged Performed By: #### L 100.0100, L500.4050 #### [facility] [address] [place], [address] HCT Normal 40-54 [facility] Comment on above: Result Comment: Canc elled via OM: Order cancelled - Patient discharged Performed By: #### L 100.0100, L500.4050 #### [facility] [address] [place], [address] HGB Normal 13.0-16.5 [facility] Comment on above: Result Comment: Canc elled via OM: Order cancelled - Patient discharged Performed By: #### L 100.0100, L500.4050 #### [facility] [address] [place], [address] MCH Normal 27.0-32.0 [facility] Comment on above: Result Comment: Canc elled via OM: Order cancelled - Patient discharged Performed By: #### L 100.0100, L500.4050 #### [facility] [address] [place], [address] MCHC Normal 32-36 [facility] Comment on above: Result Comment: Canc elled via OM: Order cancelled - Patient discharged Performed By: #### L 100.0100, L500.4050 #### [facility] [address] [place], [address] MCV Normal 80-94 [facility] Comment on above: Result Comment: Canc elled via OM: Order cancelled - Patient discharged Performed By: #### L 100.0100, L500.4050 #### [facility] [address] [place], [address] NEUT% Normal 47-70 [facility] Comment on above: Result Comment: Canc elled via OM: Order cancelled - Patient discharged Performed By: #### L 100.0100, L500.4050 #### [facility] [address] [place], [address] PLT Normal 150-450 [facility] Comment on above: Result Comment: Canc elled via OM: Order cancelled - Patient discharged Performed By: #### L 100.0100, L500.4050 #### [facility] [address] [place], [address] RBC Normal 4.6-6.2 [facility] Comment on above: Result Comment: Canc elled via OM: Order cancelled - Patient discharged Performed By: #### L 100.0100, L500.4050 #### [facility] [address] [place], [address] RDW CV Normal 11.6-14.6 [facility] Comment on above: Result Comment: Canc elled via OM: Order cancelled - Patient discharged Performed By: #### L 100.0100, L500.4050 #### [facility] [address] [place], [address] RDW SD Normal 35.1-43.9 [facility] Comment on above: Result Comment: Canc elled via OM: Order cancelled - Patient discharged Performed By: #### L 100.0100, L500.4050 #### [facility] [address] [place], [address] WBC Normal 4.4-11.0 [facility] Comment on above: Result Comment: Canc elled via OM: Order cancelled - Patient discharged Performed By: #### L 100.0100, L500.4050 #### [facility] [address] [place], [address] Comprehensive Metabolic Prof ilon 06-03-2024 ALB Normal 3.2-5.0 [facility] Comment on above: Result Comment: Canc elled via OM: Order cancelled - Patient discharged Performed By: #### L 100.0100, L500.4050 #### [facility] [address] [place], [address] ALK P Normal 45-117 [facility] Comment on above: Result Comment: Canc elled via OM: Order cancelled - Patient discharged Performed By: #### L 100.0100, L500.4050 #### [facility] [address] [place], [address] ALT Normal 16-61 [facility] Comment on above: Result Comment: Canc elled via OM: Order cancelled - Patient discharged Performed By: #### L 100.0100, L500.4050 #### [facility] [address] [place], [address] AST Normal 15-37 [facility] Comment on above: Result Comment: Canc elled via OM: Order cancelled - Patient discharged Performed By: #### L 100.0100, L500.4050 #### [facility] [address] [place], [address] BUN Normal 7-18 [facility] Comment on above: Result Comment: Canc elled via OM: Order cancelled - Patient discharged Performed By: #### L 100.0100, L500.4050 #### [facility] [address] [place], [address] BUN/CRE Normal 10-20 [facility] Comment on above: Result Comment: Canc elled via OM: Order cancelled - Patient discharged Performed By: #### L 100.0100, L500.4050 #### [facility] [address] [place], [address] CA,Total Normal 8.5-10.1 [facility] Comment on above: Result Comment: Canc elled via OM: Order cancelled - Patient discharged Performed By: #### L 100.0100, L500.4050 #### [facility] [address] [place], [address] CL Normal 98-107 [facility] Comment on above: Result Comment: Canc elled via OM: Order cancelled - Patient discharged Performed By: #### L 100.0100, L500.4050 #### [facility] [address] [place], [address] CO2 Normal 21.0-32.0 [facility] Comment on above: Result Comment: Canc elled via OM: Order cancelled - Patient discharged Performed By: #### L 100.0100, L500.4050 #### [facility] [address] [place], [address] CREAT,SERUM Normal 0.70-1.30 [facility] Comment on above: Result Comment: Canc elled via OM: Order cancelled - Patient discharged Performed By: #### L 100.0100, L500.4050 #### [facility] [address] [place], [address] EST GFR Normal >60 [facility] Comment on above: Result Comment: Canc elled via OM: Order cancelled - Patient discharged Performed By: #### L 100.0100, L500.4050 #### [facility] [address] [place], [address] EST GFR - AA Normal >60 [facility] Comment on above: Result Comment: Canc elled via OM: Order cancelled - Patient discharged Performed By: #### L 100.0100, L500.4050 #### [facility] [address] [place], [address] GAP Normal 5-15 [facility] Comment on above: Result Comment: Canc elled via OM: Order cancelled - Patient discharged Performed By: #### L 100.0100, L500.4050 #### [facility] [address] [place], [address] GLU Normal 74-106 [facility] Comment on above: Result Comment: Canc elled via OM: Order cancelled - Patient discharged Performed By: #### L 100.0100, L500.4050 #### [facility] [address] [place], [address] Potassium Normal 3.5-5.1 [facility] Comment on above: Result Comment: Canc elled via OM: Order cancelled - Patient discharged Performed By: #### L 100.0100, L500.4050 #### [facility] [address] [place], [address] T BILI Normal 0.20-1.00 [facility] Comment on above: Result Comment: Canc elled via OM: Order cancelled - Patient discharged Performed By: #### L 100.0100, L500.4050 #### [facility] [address] [place], [address] T PROT Normal 6.4-8.2 [facility] Comment on above: Result Comment: Canc elled via OM: Order cancelled - Patient discharged Performed By: #### L 100.0100, L500.4050 #### [facility] [address] [place], [address] Comprehensive Metabolic Profil Normal 136-145 [facility] Comment on above: Result Comment: Canc elled via OM: Order cancelled - Patient discharged Performed By: #### L 100.0100, L500.4050 #### [facility] [address] [place], [address] CBC W/Diff, Automatedon 12-0 SMEAR COMMENT COMMENT Normal [facility] Comment on above: Order Comment: 208 Result Comment: MONO CYTOSIS. Performed By: #### L 500.4050, L100.0100 #### [facility] [address] [place], [address] CNPNon 06-01-2024 CNPN Telephone (INTWS) LINDADENIZ ([id number]) 1935 M Date Time Provider Department 06/01/24 VADIM DERAS During your visit today, we recorded the following information about you: Dayami Rea LPN 06/01/2024 10:25 AM Addendum Rec'd records from [facility] pt was discharged from there to snf [facility] 05/30/24. Allergies As of Date: 06/01/2024 Noted Allergy Reaction [id number] REDUCTASE INHIBIT*08/23/2023 17 - Myalgia Comments: Weakess, falls CLEARASIL MAXIMUM STRENGTH 09/16/2018 7 - Swelling Date Reviewed: 03/16/2024 Reviewed by: Bonifacio Ledbetter Jr., MD - Fully Assessed Prescriptions as of 06/01/2024 - tolterodine (DETROL) 1 mg tablet Take 1 tablet by mouth two times a day. - lisinopril (ZESTRIL) 40 mg tablet Take 1 tablet by mouth once daily. - finasteride (PROSCAR) 5 mg tablet Take 1 tablet by mouth once daily. - melatonin 3 mg tablet Take 1 tablet by mouth daily at bedtime. - aspirin, enteric coated (ASPIRIN, ENTERIC COATED) 81 mg EC tablet Take 1 tablet by mouth once daily. - MULTIVITAMIN TAB Take one(1) tablet daily. Problem List As Of Date 06/01/2024 Noted Resolved Diverticulosis of large intestine [K57.30] 02/21/2024 Hyperlipidemia [E78.5] 08/28/2005 Essential hypertension [I10] 02/22/2006 Unspecified disorder of prostate [N42.9] 02/14/2007 07/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 [R79.89] 02/14/2007 07/12/2016 Dizziness and giddiness [R42] 08/22/2007 07/12/2016 Benign prostatic hyperplasia with urinary obstr*07/05/2010 Chronic nonallergic rhinitis [J31.0] 07/12/2016 02/21/2024 Thrombocytopenia, unspecified (HCC) [D69.6] 2017 Erectile dysfunction [N52.9] 01/16/2018 02/21/2024 Obesity, Class II, BMI 35-39.9 [E66.812] 07/28/2020 Urgency of urination [R39.15] 07/28/2020 Subdural hematoma (HCC) [S06.5XAA] 06/21/2023 Fall [W19.XXXA] 06/22/2023 Closed fracture of left ankle [S82.892A] 06/23/2023 02/21/2024 SAH (subarachnoid hemorrhage) (HCC) [I60.9] 07/16/2023 History of TIA (transient ischemic attack) [Z86*08/23/2023 Gait abnormality [R26.9] 08/23/2023 Edema of leg [R60.0] 02/21/2024 Encounter Status:Closed by DAYAMI REA on 06/01/24 Normal [facility] Metabolic Prof ilon 06-01-2024 Albumin [Mass/Vol] 2.6 g/dL Low 3.2-5.0 [facility] Comment on above: Order Comment: 208 Performed By: #### L 500.4100, L500.4050, L100.0100, L501.9520, L506.1000, L503.0105, L501.5200 ####[facility] [address] [place], [place], [id number] Albumin/Globulin [Mass ratio] 0.8 {ratio} Low 0.9-2.4 [facility] Comment on above: Order Comment: 208 Performed By: #### L 500.4100, L500.4050, L100.0100, L501.9520, L506.1000, L503.0105, L501.5200 ####[facility] [address] [place], [address] ALK P 68 U/L Normal 45-117 [facility] Comment on above: Order Comment: 208 Performed By: #### L 500.4100, L500.4050, L100.0100, L501.9520, L506.1000, L503.0105, L501.5200 ####[facility] [address] [place], [address] ALT [Catalytic activity/Vol] 29 U/L Normal 16-61 [facility] Comment on above: Order Comment: 208 Performed By: #### L 500.4100, L500.4050, L100.0100, L501.9520, L506.1000, L503.0105, L501.5200 ####[facility] [address] [place], [address] AST [Catalytic activity/Vol] 16 U/L Normal 15-37 [facility] Comment on above: Order Comment: 208 Performed By: #### L 500.4100, L500.4050, L100.0100, L501.9520, L506.1000, L503.0105, L501.5200 ####[facility] [address] [place], [address] Bilirubin [Mass/Vol] 1.00 mg/dL Normal 0.20-1.00 [facility] Comment on above: Order Comment: 208 Result Comment: For patients on eltrombopag therapy, use of Dimension [place] TBIL is not recommended. Performed By: #### L 500.4100, L500.4050, L100.0100, L501.9520, L506.1000, L503.0105, L501.5200 ####[facility] [address] [place], [address] BUN/CRE 31.3 RATIO High 10-20 [facility] Comment on above: Order Comment: 208 Performed By: #### L 500.4100, L500.4050, L100.0100, L501.9520, L506.1000, L503.0105, L501.5200 ####[facility] [address] [place], [address] CA,Total 8.7 mg/dL Normal 8.5-10.1 [facility] Comment on above: Order Comment: 208 Performed By: #### L 500.4100, L500.4050, L100.0100, L501.9520, L506.1000, L503.0105, L501.5200 ####[facility] [address] [place], [address] Chloride [Moles/Vol] 109 mmol/L High 98-107 [facility] Comment on above: Order Comment: 208 Performed By: #### L 500.4100, L500.4050, L100.0100, L501.9520, L506.1000, L503.0105, L501.5200 ####[facility] [address] [place], [address] CO2 [Moles/Vol] 25.0 mmol/L Normal 21.0-32.0 [facility] Comment on above: Order Comment: 208 Performed By: #### L 500.4100, L500.4050, L100.0100, L501.9520, L506.1000, L503.0105, L501.5200 ####[facility] [address] [place], [address] Creatinine [Mass/Vol] 0.77 mg/dL Normal 0.70-1.30 [facility] Comment on above: Order Comment: 208 Result Comment: The validity of the calculated GFR GFRAA in patients over 70 years has not been determined. Clinical correlation is essential. Performed By: #### L 500.4100, L500.4050, L100.0100, L501.9520, L506.1000, L503.0105, L501.5200 ####[facility] [address] [place], [address] EST GFR - AA 123 mL/min Normal >60 [facility] Comment on above: Order Comment: 208 Result Comment: Afri can Faroese GFR Calc Performed By: #### L 500.4100, L500.4050, L100.0100, L501.9520, L506.1000, L503.0105, L501.5200 ####[facility] [address] [place], [address] GAP 6 Normal 5-15 [facility] Comment on above: Order Comment: 208 Performed By: #### L 500.4100, L500.4050, L100.0100, L501.9520, L506.1000, L503.0105, L501.5200 ####[facility] [address] [place], [address] GFR/1.73 sq M.predicted among non-blacks MDRD (S/P/Bld) [Vol rate/Area] 102 mL/min/{1.73_m2} Normal >60 [facility] Comment on above: Order Comment: 208 Result Comment: Non- GFR Calc Performed By: #### L 500.4100, L500.4050, L100.0100, L501.9520, L506.1000, L503.0105, L501.5200 ####[facility] [address] [place], [address] Globulin (S) [Mass/Vol] 3.3 g/dL Normal 2.2-4.2 [facility] Comment on above: Order Comment: 208 Performed By: #### L 500.4100, L500.4050, L100.0100, L501.9520, L506.1000, L503.0105, L501.5200 ####[facility] [address] [place], [address] Glucose [Mass/Vol] 84 mg/dL Normal 74-106 [facility] Comment on above: Order Comment: 208 Performed By: #### L 500.4100, L500.4050, L100.0100, L501.9520, L506.1000, L503.0105, L501.5200 ####[facility] [address] [place], [address] Potassium [Moles/Vol] 3.6 mmol/L Normal 3.5-5.1 [facility] Comment on above: Order Comment: 208 Performed By: #### L 500.4100, L500.4050, L100.0100, L501.9520, L506.1000, L503.0105, L501.5200 ####[facility] [address] [place], [address] Sodium [Moles/Vol] 140 mmol/L Normal 136-145 [facility] Comment on above: Order Comment: 208 Performed By: #### L 500.4100, L500.4050, L100.0100, L501.9520, L506.1000, L503.0105, L501.5200 ####[facility] [address] [place], [address] T PROT 5.9 g/dL Low 6.4-8.2 [facility] Comment on above: Order Comment: 208 Performed By: #### L 500.4100, L500.4050, L100.0100, L501.9520, L506.1000, L503.0105, L501.5200 ####[facility] [address] [place], [address] Urea nitrogen [Mass/Vol] 24 mg/dL High 7-18 [facility] Comment on above: Order Comment: 208 Performed By: #### L 500.4100, L500.4050, L100.0100, L501.9520, L506.1000, L503.0105, L501.5200 ####[facility] [address] [place], [address] Lipid Profileon 06-01-2024 Cholesterol [Mass/Vol] 151 mg/dL Normal [address] [facility] Comment on above: Order Comment: 208 Result Comment: <200 mg/dL Desirable 200-240 mg/dL Borderline >240 mg/dL High Risk Performed By: #### L 500.4100, L500.4050, L100.0100, L501.9520, L506.1000, L503.0105, L501.5200 ####[facility] [address] [place], [address] Cholesterol in HDL [Mass/Vol] 42 mg/dL Normal [facility] Comment on above: Order Comment: 208 Result Comment: The drugs N-Acetylcysteine and Metamizole may falsely depress this assay. Reference Range HDL <40 mg/dL Low HDL Cholesterol HDL >or= 60 mg/dL High HDL Cholesterol Performed By: #### L 500.4100, L500.4050, L100.0100, L501.9520, L506.1000, L503.0105, L501.5200 ####[facility] [address] [place], [address] Cholesterol in LDL [Mass/Vol] 90 mg/dL Normal 0-130 [facility] Comment on above: Order Comment: 208 Performed By: #### L 500.4100, L500.4050, L100.0100, L501.9520, L506.1000, L503.0105, L501.5200 ####[facility] [address] [place], [address] Cholesterol in VLDL [Mass/Vol] 19 mg/dL Normal 5-40 [facility] Comment on above: Order Comment: 208 Performed By: #### L 500.4100, L500.4050, L100.0100, L501.9520, L506.1000, L503.0105, L501.5200 ####[facility] [address] [place], [address] Triglyceride [Mass/Vol] 96 mg/dL Normal [facility] Comment on above: Order Comment: 208 Result Comment: The drugs N-Acetylcysteine and Metamizole may falsely depress this assay. Serum Triglycerides Reference Interval Normal <150 mg/dL Borderline high 150 - 199 mg/dL High 200 - 499 mg/dL Very High > or = 500 mg/dL Performed By: #### L 500.4100, L500.4050, L100.0100, L501.9520, L506.1000, L503.0105, L501.5200 ####[facility] [address] [place], [address] Magnesiumon 06-01-2024 Magnesium [Mass/Vol] 1.9 mg/dL Normal 1.6-2.6 [facility] Comment on above: Order Comment: 208 Performed By: #### L 500.4100, L500.4050, L100.0100, L501.9520, L506.1000, L503.0105, L501.5200 ####[facility] [address] [place], [place], [phone] Thyroid Stim Hormone (TSH)on 06-01-2024 TSH 1.110 uIU/mL Normal 0.358-3.740 [facility] Comment on above: Order Comment: 208 Performed By: #### L 500.4100, L500.4050, L100.0100, L501.9520, L506.1000, L503.0105, L501.5200 ####[facility] [address] [place], [address] Vitamin B12on 06-01-2024 Cobalamin (Vitamin B12) [Mass/Vol] 998 pg/mL High 211-911 [facility] Comment on above: Order Comment: 208 Performed By: #### L 500.4100, L500.4050, L100.0100, L501.9520, L506.1000, L503.0105, L501.5200 ####[facility] [address] [place], [address] Vitamin D,25 Hydroxyon 06-01 Vitamin D 25-OH 33.5 ng/mL Normal [facility] Comment on above: Order Comment: 208 Result Comment: Christie min D 25(OH) Status Range Deficiency <20 ng/mL (50nmol/L) Insufficiency 20 - 30 ng/mL (50 - 75 nmol/L) Sufficiency 30 - 100 ng/mL (75 - 250 nmol/L) Toxicity >100 ng/mL (>250 nmol/L) Performed By: #### L 500.4100, L500.4050, L100.0100, L501.9520, L506.1000, L503.0105, L501.5200 ####[facility] [address] [place], [address] Basic Metabolic Profile (BMP )on 05-27-2024 BUN Normal 7-18 [facility] Comment on above: Result Comment: Canc elled via OM: Order Changed Performed By: #### L 500.2500, L100.0500 #### [facility] [address] [place], [address] BUN/CRE Normal 10-20 [facility] Comment on above: Result Comment: Canc elled via OM: Order Changed Performed By: #### L 500.2500, L100.0500 #### [facility] [address] [place], [address] CA,Total Normal 8.5-10.1 [facility] Comment on above: Result Comment: Canc elled via OM: Order Changed Performed By: #### L 500.2500, L100.0500 #### [facility] [address] [place], [address] CL Normal 98-107 [facility] Comment on above: Result Comment: Canc elled via OM: Order Changed Performed By: #### L 500.2500, L100.0500 #### [facility] [address] [place], [address] CO2 Normal 21.0-32.0 [facility] Comment on above: Result Comment: Canc elled via OM: Order Changed Performed By: #### L 500.2500, L100.0500 #### [facility] [address] [place], [address] CREAT,SERUM Normal 0.70-1.30 [facility] Comment on above: Result Comment: Canc elled via OM: Order Changed Performed By: #### L 500.2500, L100.0500 #### [facility] [address] [place], [address] EST GFR Normal >60 [facility] Comment on above: Result Comment: Canc elled via OM: Order Changed Performed By: #### L 500.2500, L100.0500 #### [facility] [address] [place], [address] EST GFR - AA Normal >60 [facility] Comment on above: Result Comment: Canc elled via OM: Order Changed Performed By: #### L 500.2500, L100.0500 #### [facility] [address] [place], [address] GAP Normal 5-15 [facility] Comment on above: Result Comment: Canc elled via OM: Order Changed Performed By: #### L 500.2500, L100.0500 #### [facility] [address] [place], [address] GLU Normal 74-106 [facility] Comment on above: Result Comment: Canc elled via OM: Order Changed Performed By: #### L 500.2500, L100.0500 #### [facility] [address] [place], [address] Potassium Normal 3.5-5.1 [facility] Comment on above: Result Comment: Canc elled via OM: Order Changed Performed By: #### L 500.2500, L100.0500 #### [facility] [address] [place], [address] Basic Metabolic Profile (BMP) Normal 136-145 [facility] Comment on above: Result Comment: Canc elled via OM: Order Changed Performed By: #### L 500.2500, L100.0500 #### [facility] [address] [place], [address] CBC W/Diff, Automatedon 11-2 PATH REV Reviewed Normal [facility] Comment on above: Result Comment: Russ Carrillo D.O. 05/27/24 AMENDED REPORT 05/27/24 1428 PATH REV previously reported as: October Performed By: #### L 100.0100, L500.4050 #### [facility] [address] [place], [address] Absolute Neut Normal 2.0-7.7 [facility] Comment on above: Result Comment: Canc elled via OM: Order Changed Performed By: #### L 500.2500, L100.0500 #### [facility] [address] [place], [address] HCT Normal 40-54 [facility] Comment on above: Result Comment: Canc elled via OM: Order Changed Performed By: #### L 500.2500, L100.0500 #### [facility] [address] [place], [address] HGB Normal 13.0-16.5 [facility] Comment on above: Result Comment: Canc elled via OM: Order Changed Performed By: #### L 500.2500, L100.0500 #### [facility] [address] [place], [address] MCH Normal 27.0-32.0 [facility] Comment on above: Result Comment: Canc elled via OM: Order Changed Performed By: #### L 500.2500, L100.0500 #### [facility] [address] [place], [address] MCHC Normal 32-36 [facility] Comment on above: Result Comment: Canc elled via OM: Order Changed Performed By: #### L 500.2500, L100.0500 #### [facility] [address] [place], [address] MCV Normal 80-94 [facility] Comment on above: Result Comment: Canc elled via OM: Order Changed Performed By: #### L 500.2500, L100.0500 #### [facility] [address] [place], [address] NEUT% Normal 47-70 [facility] Comment on above: Result Comment: Canc elled via OM: Order Changed Performed By: #### L 500.2500, L100.0500 #### [facility] [address] [place], [address] PLT Normal 150-450 [facility] Comment on above: Result Comment: Canc elled via OM: Order Changed Performed By: #### L 500.2500, L100.0500 #### [facility] [address] [place], [address] RBC Normal 4.6-6.2 [facility] Comment on above: Result Comment: Canc elled via OM: Order Changed Performed By: #### L 500.2500, L100.0500 #### [facility] [address] [place], [address] RDW CV Normal 11.6-14.6 [facility] Comment on above: Result Comment: Canc elled via OM: Order Changed Performed By: #### L 500.2500, L100.0500 #### [facility] [address] [place], [address] RDW SD Normal 35.1-43.9 [facility] Comment on above: Result Comment: Canc elled via OM: Order Changed Performed By: #### L 500.2500, L100.0500 #### [facility] [address] [place], [address] WBC Normal 4.4-11.0 [facility] Comment on above: Result Comment: Canc elled via OM: Order Changed Performed By: #### L 500.2500, L100.0500 #### [facility] [address] [place], [address] Comprehensive Metabolic Prof ilon 05-27-2024 Albumin [Mass/Vol] 2.7 g/dL Low 3.2-5.0 [facility] Comment on above: Performed By: #### L 100.0100, L500.4050 #### [facility] [address] [place], [address] Albumin/Globulin [Mass ratio] 0.8 {ratio} Low 0.9-2.4 [facility] Comment on above: Performed By: #### L 100.0100, L500.4050 #### [facility] [address] [place], [address] ALK P 71 U/L Normal 45-117 [facility] Comment on above: Performed By: #### L 100.0100, L500.4050 #### [facility] [address] [place], [address] ALT [Catalytic activity/Vol] 35 U/L Normal 16-61 [facility] Comment on above: Performed By: #### L 100.0100, L500.4050 #### [facility] [address] [place], [address] AST [Catalytic activity/Vol] 20 U/L Normal 15-37 [facility] Comment on above: Performed By: #### L 100.0100, L500.4050 #### [facility] [address] [place], [address] Bilirubin [Mass/Vol] 0.90 mg/dL Normal 0.20-1.00 [facility] Comment on above: Result Comment: For patients on eltrombopag therapy, use of Dimension [place] TBIL is not recommended. Performed By: #### L 100.0100, L500.4050 #### [facility] [address] [place], [address] BUN/CRE 34.4 RATIO High 10-20 [facility] Comment on above: Performed By: #### L 100.0100, L500.4050 #### [facility] [address] [place], [address] CA,Total 8.9 mg/dL Normal 8.5-10.1 [facility] Comment on above: Performed By: #### L 100.0100, L500.4050 #### [facility] [address] [place], [address] Chloride [Moles/Vol] 107 mmol/L Normal 98-107 [facility] Comment on above: Performed By: #### L 100.0100, L500.4050 #### [facility] [address] [place], [address] CO2 [Moles/Vol] 24.0 mmol/L Normal 21.0-32.0 [facility] Comment on above: Performed By: #### L 100.0100, L500.4050 #### [facility] [address] [place], [address] Creatinine [Mass/Vol] 0.90 mg/dL Normal 0.70-1.30 [facility] Comment on above: Result Comment: The validity of the calculated GFR GFRAA in patients over 70 years has not been determined. Clinical correlation is essential. Performed By: #### L 100.0100, L500.4050 #### [facility] [address] [place], [address] ECRCL 63.47 ml/min Normal [facility] Comment on above: Performed By: #### L 100.0100, L500.4050 #### [facility] [address] [place], [address] EST GFR - AA 102 mL/min Normal >60 [facility] Comment on above: Result Comment: Afri can Faroese GFR Calc Performed By: #### L 100.0100, L500.4050 #### [facility] [address] [place], [address] GAP 7 Normal 5-15 [facility] Comment on above: Performed By: #### L 100.0100, L500.4050 #### [facility] [address] [place], [address] GFR/1.73 sq M.predicted among non-blacks MDRD (S/P/Bld) [Vol rate/Area] 84 mL/min/{1.73_m2} Normal >60 [facility] Comment on above: Result Comment: Non- GFR Calc Performed By: #### L 100.0100, L500.4050 #### [facility] [address] [place], [address] Globulin (S) [Mass/Vol] 3.4 g/dL Normal 2.2-4.2 [facility] Comment on above: Performed By: #### L 100.0100, L500.4050 #### [facility] [address] [place], [address] Glucose [Mass/Vol] 92 mg/dL Normal 74-106 [facility] Comment on above: Performed By: #### L 100.0100, L500.4050 #### [facility] [address] [place], [address] Potassium [Moles/Vol] 3.9 mmol/L Normal 3.5-5.1 [facility] Comment on above: Performed By: #### L 100.0100, L500.4050 #### [facility] [address] [place], [address] Sodium [Moles/Vol] 138 mmol/L Normal 136-145 [facility] Comment on above: Performed By: #### L 100.0100, L500.4050 #### [facility] [address] [place], [address] T PROT 6.1 g/dL Low 6.4-8.2 [facility] Comment on above: Performed By: #### L 100.0100, L500.4050 #### [facility] [address] [place], [address] Urea nitrogen [Mass/Vol] 31 mg/dL High 7-18 [facility] Comment on above: Performed By: #### L 100.0100, L500.4050 #### [facility] [address] [place], [address] Basic Metabolic Profile (BMP )on 05-22-2024 BUN/CRE 35.6 RATIO High 10-20 [facility] Comment on above: Performed By: #### L 500.2500 #### [facility] [address] [place], [address] CA,Total 8.8 mg/dL Normal 8.5-10.1 [facility] Comment on above: Performed By: #### L 500.2500 #### [facility] [address] [place], [address] Chloride [Moles/Vol] 108 mmol/L High 98-107 [facility] Comment on above: Performed By: #### L 500.2500 #### [facility] [address] [place], [address] CO2 [Moles/Vol] 26.0 mmol/L Normal 21.0-32.0 [facility] Comment on above: Performed By: #### L 500.2500 #### [facility] [address] [place], [address] Creatinine [Mass/Vol] 1.04 mg/dL Normal 0.70-1.30 [facility] Comment on above: Result Comment: The validity of the calculated GFR GFRAA in patients over 70 years has not been determined. Clinical correlation is essential. Performed By: #### L 500.2500 #### [facility] [address] [place], [address] ECRCL 54.93 ml/min Normal [facility] Comment on above: Performed By: #### L 500.2500 #### [facility] [address] [place], [address] EST GFR - AA 87 mL/min Normal >60 [facility] Comment on above: Result Comment: Afri can Faroese GFR Calc Performed By: #### L 500.2500 #### [facility] [address] [place], [address] GAP 5 Normal 5-15 [facility] Comment on above: Performed By: #### L 500.2500 #### [facility] [address] [place], [address] GFR/1.73 sq M.predicted among non-blacks MDRD (S/P/Bld) [Vol rate/Area] 72 mL/min/{1.73_m2} Normal >60 [facility] Comment on above: Result Comment: Non- GFR Calc Performed By: #### L 500.2500 #### [facility] [address] [place], [address] Glucose [Mass/Vol] 96 mg/dL Normal 74-106 [facility] Comment on above: Performed By: #### L 500.2500 #### [facility] [address] [place], [address] Potassium [Moles/Vol] 3.6 mmol/L Normal 3.5-5.1 [facility] Comment on above: Performed By: #### L 500.2500 #### [facility] [address] [place], [address] Sodium [Moles/Vol] 140 mmol/L Normal 136-145 [facility] Comment on above: Performed By: #### L 500.2500 #### [facility] [address] [place], [address] Urea nitrogen [Mass/Vol] 37 mg/dL High 7-18 [facility] Comment on above: Performed By: #### L 500.2500 #### [facility] [address] [facility] [place], [address] COVID 19 AG RAPID (LEATHA Aparicio)on 05-22-2024 SARS-CoV-2 (COVID-19) RNA GM+probe Ql (Unsp spec) *Negative results from patients with symptom onset beyond five days should be treated as presumptive and confirmed by a molecular assay if clinically necessary. Negative results should not be used as the sole basis for treatment or for patient management. SARS-CoV-2 Ag Resp Ql IA.rapid *Positive results do not differentiate between SARS-CoV and SARS-CoV-2. If differentiation of the specific SARS virus is desired an additional sample and an additional order is required. SARS-CoV-2 Ag Resp Ql IA.rapid * This test has not been FDA cleared or approved; the test has been authorized by FDA under an Emergency Use Authorization (EAU) for use by laboratories certified under CLIA that meet the requirements to perform moderate, high, or waived complexity tests. SARS-CoV-2 Ag Resp Ql IA.rapid Normal Reference Range: Negative SARS-CoV-2 (COVID 19) Negative RAPID METHOD [employer] COVID19 Ag Card Normal [facility] Comment on above: Performed By: #### M 100.505 ####[facility] [address] [place], [address] CBC W/Diff, Automatedon 11-2 SMEAR COMMENT SCANNED Normal [facility] Comment on above: Result Comment: MONO CYTOSIS PRESENT Performed By: #### L 500.4050, L100.0100 #### [facility] [address] [place], [address] Comprehensive Metabolic Prof ilon 05-20-2024 Albumin [Mass/Vol] 2.8 g/dL Low 3.2-5.0 [facility] Comment on above: Performed By: #### L 500.4050, L100.0100 #### [facility] [address] [place], [address] Albumin/Globulin [Mass ratio] 0.9 {ratio} Normal 0.9-2.4 [facility] Comment on above: Performed By: #### L 500.4050, L100.0100 #### [facility] [address] [place], [address] ALK P 68 U/L Normal 45-117 [facility] Comment on above: Performed By: #### L 500.4050, L100.0100 #### [facility] [address] [place], [address] ALT [Catalytic activity/Vol] 21 U/L Normal 16-61 [facility] Comment on above: Performed By: #### L 500.4050, L100.0100 #### [facility] [address] [place], [address] AST [Catalytic activity/Vol] 16 U/L Normal 15-37 [facility] Comment on above: Performed By: #### L 500.4050, L100.0100 #### [facility] [address] [place], [address] Bilirubin [Mass/Vol] 1.90 mg/dL High 0.20-1.00 [facility] Comment on above: Result Comment: For patients on eltrombopag therapy, use of Dimension [place] TBIL is not recommended. Performed By: #### L 500.4050, L100.0100 #### [facility] [address] [place], [address] BUN/CRE 29.4 RATIO High 10-20 [facility] Comment on above: Performed By: #### L 500.4050, L100.0100 #### [facility] [address] [place], [address] CA,Total 8.7 mg/dL Normal 8.5-10.1 [facility] Comment on above: Performed By: #### L 500.4050, L100.0100 #### [facility] [address] [place], [address] Chloride [Moles/Vol] 106 mmol/L Normal 98-107 [facility] Comment on above: Performed By: #### L 500.4050, L100.0100 #### [facility] [address] [place], [address] CO2 [Moles/Vol] 25.0 mmol/L Normal 21.0-32.0 [facility] Comment on above: Performed By: #### L 500.4050, L100.0100 #### [facility] [address] [place], [address] Creatinine [Mass/Vol] 0.85 mg/dL Normal 0.70-1.30 [facility] Comment on above: Result Comment: The validity of the calculated GFR GFRAA in patients over 70 years has not been determined. Clinical correlation is essential. Performed By: #### L 500.4050, L100.0100 #### [facility] [address] [place], [address] ECRCL 67.20 ml/min Normal [facility] Comment on above: Performed By: #### L 500.4050, L100.0100 #### [facility] [address] [place], [address] EST GFR - AA 109 mL/min Normal >60 [facility] Comment on above: Result Comment: Afri can Faroese GFR Calc Performed By: #### L 500.4050, L100.0100 #### [facility] [address] [place], [address] GAP 6 Normal 5-15 [facility] Comment on above: Performed By: #### L 500.4050, L100.0100 #### [facility] [address] [place], [address] GFR/1.73 sq M.predicted among non-blacks MDRD (S/P/Bld) [Vol rate/Area] 90 mL/min/{1.73_m2} Normal >60 [facility] Comment on above: Result Comment: Non- GFR Calc Performed By: #### L 500.4050, L100.0100 #### [facility] [address] [place], [address] Globulin (S) [Mass/Vol] 3.1 g/dL Normal 2.2-4.2 [facility] Comment on above: Performed By: #### L 500.4050, L100.0100 #### [facility] [address] [place], [address] Glucose [Mass/Vol] 102 mg/dL Normal 74-106 [facility] Comment on above: Result Comment: Fast ing Glucose result from 100 to 125 mg/dL suggests IMPAIRED HOMEOSTASIS per A.D.A. criteria. Performed By: #### L 500.4050, L100.0100 #### [facility] [address] [place], [address] Potassium [Moles/Vol] 3.4 mmol/L Low 3.5-5.1 [facility] Comment on above: Performed By: #### L 500.4050, L100.0100 #### [facility] [address] [place], [address] Sodium [Moles/Vol] 137 mmol/L Normal 136-145 [facility] Comment on above: Performed By: #### L 500.4050, L100.0100 #### [facility] [address] [place], [address] T PROT 5.9 g/dL Low 6.4-8.2 [facility] Comment on above: Performed By: #### L 500.4050, L100.0100 #### [facility] [address] [place], [address] Urea nitrogen [Mass/Vol] 25 mg/dL High 7-18 [facility] Comment on above: Performed By: #### L 500.4050, L100.0100 #### [facility] [address] [place], [address] CNPRadha 05-19-2024 [facility] Telephone (TOMY) DENIZ KUMAR ([id number]) 1935 M Date Time Provider Department 05/19/24 BONIFACIO LEDBETTER During your visit today, we recorded the following information about you: Leanne Tejada RN 05/19/2024 11:50 AM Signed Patient's sister Gerri Barnes calling and would like Dr. Ledbetter to know that patient had a recent fall and is now at [facility] for therapy. Sister Gerri asking if Dr. Ledbettre would like to add any specific exercises to pt's regimen there? Please call Gerri with reply at [phone]. LEATHA Campa William J Jr., MD 05/19/2024 8:47 PM Signed Defer to those providers following patient at the transitional care unit. Rosa Retana MD, LPN 05/20/2024 8:57 AM Signed Spoke to marium Talley of message below. Verbalized understanding. Rosa Steiner LPN May 20, 2024 8:57 AM Allergies As of Date: 05/19/2024 Noted Allergy Reaction [id number]-KHB-INO REDUCTASE INHIBIT*08/23/2023 17 - Myalgia Comments: Weakess, falls CLEARASIL MAXIMUM STRENGTH 09/16/2018 7 - Swelling Date Reviewed: 03/16/2024 Reviewed by: Bonifacio Ledbetter Jr., MD - Fully Assessed Reason for Visit: Patient Question [7967] Prescriptions as of 05/20/2024 - tolterodine (DETROL) 1 mg tablet Take 1 tablet by mouth two times a day. - lisinopril (ZESTRIL) 40 mg tablet Take 1 tablet by mouth once daily. - finasteride (PROSCAR) 5 mg tablet Take 1 tablet by mouth once daily. - melatonin 3 mg tablet Take 1 tablet by mouth daily at bedtime. - aspirin, enteric coated (ASPIRIN, ENTERIC COATED) 81 mg EC tablet Take 1 tablet by mouth once daily. - MULTIVITAMIN TAB Take one(1) tablet daily. Problem List As Of Date 05/19/2024 Noted Resolved Diverticulosis of large intestine [K57.30] 02/21/2024 Hyperlipidemia [E78.5] 08/28/2005 Essential hypertension [I10] 02/22/2006 Unspecified disorder of prostate [N42.9] 02/14/2007 07/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 [R79.89] 02/14/2007 07/12/2016 Dizziness and giddiness [R42] 08/22/2007 07/12/2016 Benign prostatic hyperplasia with urinary obstr*07/05/2010 Chronic nonallergic rhinitis [J31.0] 07/12/2016 02/21/2024 Thrombocytopenia, unspecified (HCC) [D69.6] 2017 Erectile dysfunction [N52.9] 01/16/2018 02/21/2024 Obesity, Class II, BMI 35-39.9 [E66.812] 07/28/2020 Urgency of urination [R39.15] 07/28/2020 Subdural hematoma (HCC) [S06.5XAA] 06/21/2023 Fall [W19.XXXA] 06/22/2023 Closed fracture of left ankle [S82.892A] 06/23/2023 02/21/2024 SAH (subarachnoid hemorrhage) (HCC) [I60.9] 07/16/2023 History of TIA (transient ischemic attack) [Z86*08/23/2023 Gait abnormality [R26.9] 08/23/2023 Edema of leg [R60.0] 02/21/2024 Encounter Status:Closed by ROSA STEINER on 05/20/24 Normal [facility] Basic Metabolic Profile (BMP )on 05-18-2024 BUN/CRE 24.9 RATIO High 10-20 [facility] Comment on above: Performed By: #### L 500.2500, L100.0500 #### [facility] [address] [place], [address] CA,Total 9.0 mg/dL Normal 8.5-10.1 [facility] Comment on above: Performed By: #### L 500.2500, L100.0500 #### [facility] [address] [place], [address] Chloride [Moles/Vol] 108 mmol/L High 98-107 [facility] Comment on above: Performed By: #### L 500.2500, L100.0500 #### [facility] [address] [place], [address] CO2 [Moles/Vol] 24.0 mmol/L Normal 21.0-32.0 [facility] Comment on above: Performed By: #### L 500.2500, L100.0500 #### [facility] [address] [place], [address] Creatinine [Mass/Vol] 0.72 mg/dL Normal 0.70-1.30 [facility] Comment on above: Result Comment: The validity of the calculated GFR GFRAA in patients over 70 years has not been determined. Clinical correlation is essential. Performed By: #### L 500.2500, L100.0500 #### [facility] [address] [place], [address] ECRCL 78.43 ml/min Normal [facility] Comment on above: Performed By: #### L 500.2500, L100.0500 #### [facility] [address] [place], [address] EST GFR - AA 132 mL/min Normal >60 [facility] Comment on above: Result Comment: Afri can Faroese GFR Calc Performed By: #### L 500.2500, L100.0500 #### [facility] [address] [place], [address] GAP 5 Normal 5-15 [facility] Comment on above: Performed By: #### L 500.2500, L100.0500 #### [facility] [address] [place], [address] GFR/1.73 sq M.predicted among non-blacks MDRD (S/P/Bld) [Vol rate/Area] 109 mL/min/{1.73_m2} Normal >60 [facility] Comment on above: Result Comment: Non- GFR Calc Performed By: #### L 500.2500, L100.0500 #### [facility] [address] [place], [address] Glucose [Mass/Vol] 109 mg/dL High 74-106 [facility] Comment on above: Result Comment: Fast ing Glucose result from 100 to 125 mg/dL suggests IMPAIRED HOMEOSTASIS per A.D.A. criteria. Performed By: #### L 500.2500, L100.0500 #### [facility] [address] [place], [address] Potassium [Moles/Vol] 3.5 mmol/L Normal 3.5-5.1 [facility] Comment on above: Performed By: #### L 500.2500, L100.0500 #### [facility] [address] [place], [address] Sodium [Moles/Vol] 138 mmol/L Normal 136-145 [facility] Comment on above: Performed By: #### L 500.2500, L100.0500 #### [facility] [address] [place], [address] Urea nitrogen [Mass/Vol] 18 mg/dL Normal 7-18 [facility] Comment on above: Performed By: #### L 500.2500, L100.0500 #### [facility] [address] [place], [address] CBC W/Diff, Automatedon 05-01 Absolute Lymph 0.89 X10 3/uL Normal 0.83-4.51 [facility] Comment on above: Performed By: #### L 500.2500, L100.0500 #### [facility] [address] [place], [address] Absolute Neut 3.7 X10 3/uL Normal 2.0-7.7 [facility] Comment on above: Performed By: #### L 500.2500, L100.0500 #### [facility] [address] [place], [address] Basophils/100 WBC (Bld) 0.2 % Normal 0-1 [facility] Comment on above: Performed By: #### L 500.2500, L100.0500 #### [facility] [address] [place], [address] Eosinophils/100 WBC (Bld) 0.2 % Normal 0-5 [facility] Comment on above: Performed By: #### L 500.2500, L100.0500 #### [facility] [address] [place], [address] Erythrocyte distribution width (RBC) [Ratio] 12.7 % Normal 11.6-14.6 [facility] Comment on above: Performed By: #### L 500.2500, L100.0500 #### [facility] [address] [place], [address] Hematocrit (Bld) [Volume fraction] 47.5 % Normal 40-54 [facility] Comment on above: Performed By: #### L 500.2500, L100.0500 #### [facility] [address] [place], [address] Hemoglobin (Bld) [Mass/Vol] 15.9 g/dL Normal 13.0-16.5 [facility] Comment on above: Performed By: #### L 500.2500, L100.0500 #### [facility] [address] [place], [address] IG% 1.100 High 0.0-0.9 [facility] Comment on above: Result Comment: IG% - Immature Granulocytes (promyelocytes, myelocytes and metamyelocytes) > 1% indicates that a LEFT SHIFT is Present. Performed By: #### L 500.2500, L100.0500 #### [facility] [address] [place], [address] Lymphocytes/100 WBC (Bld) 14.4 % Low 19-41 [facility] Comment on above: Performed By: #### L 500.2500, L100.0500 #### [facility] [address] [place], [address] MCH (RBC) [Entitic mass] 29.7 pg Normal 27.0-32.0 [facility] Comment on above: Performed By: #### L 500.2500, L100.0500 #### [facility] [address] [place], [address] MCHC (RBC) [Mass/Vol] 33.5 g/dL Normal 32-36 [facility] Comment on above: Performed By: #### L 500.2500, L100.0500 #### [facility] [address] [place], [address] MCV (RBC) [Entitic vol] 88.6 fL Normal 80-94 [facility] Comment on above: Performed By: #### L 500.2500, L100.0500 #### [facility] [address] [place], [address] Monocytes/100 WBC (Bld) 24.2 % High 0-10 [facility] Comment on above: Performed By: #### L 500.2500, L100.0500 #### [facility] [address] [place], [address] Neutrophils/100 WBC (Bld) 59.9 % Normal 47-70 [facility] Comment on above: Performed By: #### L 500.2500, L100.0500 #### [facility] [address] [place], [address] Nucleated RBC (Bld) [#/Vol] 0 10*3/uL Normal 0-5 [facility] Comment on above: Performed By: #### L 500.2500, L100.0500 #### [facility] [address] [place], [address] Platelet mean volume (Bld) [Entitic vol] 11.5 fL Normal 6.2-12.0 [facility] Comment on above: Performed By: #### L 500.2500, L100.0500 #### [facility] [address] [place], [address] Platelets (Bld) [#/Vol] 120 10*3/uL Low 150-450 [facility] Comment on above: Performed By: #### L 500.2500, L100.0500 #### [facility] [address] [place], [address] RBC (Bld) [#/Vol] 5.36 10*6/uL Normal 4.6-6.2 [facility] Comment on above: Performed By: #### L 500.2500, L100.0500 #### [facility] [address] [place], [address] RDW SD 41.2 fl Normal 35.1-43.9 [facility] Comment on above: Performed By: #### L 500.2500, L100.0500 #### [facility] [address] [place], [address] WBC (Bld) [#/Vol] 6.2 10*3/uL Normal 4.4-11.0 [facility] Comment on above: Performed By: #### L 500.2500, L100.0500 #### [facility] [address] [place], [address] Basic Metabolic Profile (BMP )on 05-17-2024 BUN/CRE 27.5 RATIO High 10-20 [facility] Comment on above: Performed By: #### L 100.0100, L500.4050 #### [facility] [address] [place], [address] CA,Total 8.7 mg/dL Normal 8.5-10.1 [facility] Comment on above: Performed By: #### L 100.0100, L500.4050 #### [facility] [address] [place], [address] Chloride [Moles/Vol] 108 mmol/L High 98-107 [facility] Comment on above: Performed By: #### L 100.0100, L500.4050 #### [facility] [address] [place], [address] CO2 [Moles/Vol] 27.0 mmol/L Normal 21.0-32.0 [facility] Comment on above: Performed By: #### L 100.0100, L500.4050 #### [facility] [address] [place], [address] Creatinine [Mass/Vol] 0.73 mg/dL Normal 0.70-1.30 [facility] Comment on above: Result Comment: The validity of the calculated GFR GFRAA in patients over 70 years has not been determined. Clinical correlation is essential. Performed By: #### L 100.0100, L500.4050 #### [facility] [address] [place], [address] ECRCL 78.43 ml/min Normal [facility] Comment on above: Performed By: #### L 100.0100, L500.4050 #### [facility] [address] [place], [address] EST GFR - AA 131 mL/min Normal >60 [facility] Comment on above: Result Comment: Afri can Faroese GFR Calc Performed By: #### L 100.0100, L500.4050 #### [facility] [address] [place], [address] GAP 5 Normal 5-15 [facility] Comment on above: Performed By: #### L 100.0100, L500.4050 #### [facility] [address] [place], [address] GFR/1.73 sq M.predicted among non-blacks MDRD (S/P/Bld) [Vol rate/Area] 108 mL/min/{1.73_m2} Normal >60 [facility] Comment on above: Result Comment: Non- GFR Calc Performed By: #### L 100.0100, L500.4050 #### [facility] [address] [place], [address] Glucose [Mass/Vol] 88 mg/dL Normal 74-106 [facility] Comment on above: Performed By: #### L 100.0100, L500.4050 #### [facility] [address] [place], [address] Potassium [Moles/Vol] 3.3 mmol/L Low 3.5-5.1 [facility] Comment on above: Performed By: #### L 100.0100, L500.4050 #### [facility] [address] [place], [address] Sodium [Moles/Vol] 140 mmol/L Normal 136-145 [facility] Comment on above: Performed By: #### L 100.0100, L500.4050 #### [facility] [address] [place], [address] Urea nitrogen [Mass/Vol] 20 mg/dL High 7-18 [facility] Comment on above: Performed By: #### L 100.0100, L500.4050 #### [facility] [address] [place], [address] CBC W/Diff, Automatedon 05-01 SMEAR COMMENT SCANNED Normal [facility] Comment on above: Performed By: #### L 100.0100, L500.4050 #### [facility] [address] [place], [address] Anisocytosis Ql (Bld) 1+ Normal [facility] Comment on above: Performed By: #### L 100.0100, L500.4050 #### [facility] [address] [place], [address] PLT EST ADEQUATE Normal ADEQ [facility] Comment on above: Performed By: #### L 100.0100, L500.4050 #### [facility] [address] [place], [address] Urinalysis, Completeon 05-17 RBC 0-5 SEEN Normal 0-5 [facility] Comment on above: Order Comment: Urine , Random Performed By: #### L 500.2500, L100.0500 #### [facility] [address] [place], [address] WBC 0-5 SEEN Normal 0-5 [facility] Comment on above: Order Comment: Urine , Random Performed By: #### L 500.2500, L100.0500 #### [facility] [address] [place], [address] BACTERIA 0 SEEN Normal None Seen [facility] Comment on above: Order Comment: Urine , Random Performed By: #### L 500.2500, L100.0500 #### [facility] [address] [place], [address] EPI,SQUAMOUS 0 SEEN Normal 0-5 [facility] Comment on above: Order Comment: Urine , Random Performed By: #### L 500.2500, L100.0500 #### [facility] [address] [place], [address] Mucus Ql (Urine sed) 0 SEEN Normal [facility] Comment on above: Order Comment: Urine , Random Performed By: #### L 500.2500, L100.0500 #### [facility] [address] [place], [address] Basic Metabolic Profile (BMP )on 05-16-2024 BUN/CRE 32.5 RATIO High 10-20 [facility] Comment on above: Performed By: #### L 500.2500, L100.0500 #### [facility] [address] [place], [address] CA,Total 8.6 mg/dL Normal 8.5-10.1 [facility] Comment on above: Performed By: #### L 500.2500, L100.0500 #### [facility] [address] [place], [address] Chloride [Moles/Vol] 109 mmol/L High 98-107 [facility] Comment on above: Performed By: #### L 500.2500, L100.0500 #### [facility] [address] [place], [address] CO2 [Moles/Vol] 27.0 mmol/L Normal 21.0-32.0 [facility] Comment on above: Performed By: #### L 500.2500, L100.0500 #### [facility] [address] [place], [address] Creatinine [Mass/Vol] 0.83 mg/dL Normal 0.70-1.30 [facility] Comment on above: Result Comment: The validity of the calculated GFR GFRAA in patients over 70 years has not been determined. Clinical correlation is essential. Performed By: #### L 500.2500, L100.0500 #### [facility] [address] [place], [address] ECRCL 75.60 ml/min Normal [facility] Comment on above: Performed By: #### L 500.2500, L100.0500 #### [facility] [address] [place], [address] EST GFR - AA 112 mL/min Normal >60 [facility] Comment on above: Result Comment: Afri can Faroese GFR Calc Performed By: #### L 500.2500, L100.0500 #### [facility] [address] [place], [address] GAP 6 Normal 5-15 [facility] Comment on above: Performed By: #### L 500.2500, L100.0500 #### [facility] [address] [place], [address] GFR/1.73 sq M.predicted among non-blacks MDRD (S/P/Bld) [Vol rate/Area] 93 mL/min/{1.73_m2} Normal >60 [facility] Comment on above: Result Comment: Non- GFR Calc Performed By: #### L 500.2500, L100.0500 #### [facility] [address] [place], [address] Glucose [Mass/Vol] 86 mg/dL Normal 74-106 [facility] Comment on above: Performed By: #### L 500.2500, L100.0500 #### [facility] [address] [place], [address] Potassium [Moles/Vol] 3.3 mmol/L Low 3.5-5.1 [facility] Comment on above: Performed By: #### L 500.2500, L100.0500 #### [facility] [address] [place], [address] Sodium [Moles/Vol] 142 mmol/L Normal 136-145 [facility] Comment on above: Performed By: #### L 500.2500, L100.0500 #### [facility] [address] [place], [address] Urea nitrogen [Mass/Vol] 27 mg/dL High 7-18 [facility] Comment on above: Performed By: #### L 500.2500, L100.0500 #### [facility] [address] [place], [address] CBC-Complete Blood Cnt No Di ffon 05-16-2024 Erythrocyte distribution width (RBC) [Ratio] 12.8 % Normal 11.6-14.6 [facility] Comment on above: Performed By: #### L 500.2500, L100.0500 #### [facility] [address] [place], [address] Hematocrit (Bld) [Volume fraction] 41.1 % Normal 40-54 [facility] Comment on above: Performed By: #### L 500.2500, L100.0500 #### [facility] [address] [place], [address] Hemoglobin (Bld) [Mass/Vol] 13.7 g/dL Normal 13.0-16.5 [facility] Comment on above: Performed By: #### L 500.2500, L100.0500 #### [facility] [address] [place], [address] MCH (RBC) [Entitic mass] 30.4 pg Normal 27.0-32.0 [facility] Comment on above: Performed By: #### L 500.2500, L100.0500 #### [facility] [address] [place], [address] MCHC (RBC) [Mass/Vol] 33.3 g/dL Normal 32-36 [facility] Comment on above: Performed By: #### L 500.2500, L100.0500 #### [facility] [address] [place], [address] MCV (RBC) [Entitic vol] 91.1 fL Normal 80-94 [facility] Comment on above: Performed By: #### L 500.2500, L100.0500 #### [facility] [address] [place], [address] Platelet mean volume (Bld) [Entitic vol] 12.0 fL Normal 6.2-12.0 [facility] Comment on above: Performed By: #### L 500.2500, L100.0500 #### [facility] [address] [place], [address] Platelets (Bld) [#/Vol] 104 10*3/uL Low 150-450 [facility] Comment on above: Performed By: #### L 500.2500, L100.0500 #### [facility] [address] [place], [address] RBC (Bld) [#/Vol] 4.51 10*6/uL Low 4.6-6.2 [facility] Comment on above: Performed By: #### L 500.2500, L100.0500 #### [facility] [address] [place], [address] RDW SD 42.4 fl Normal 35.1-43.9 [facility] Comment on above: Performed By: #### L 500.2500, L100.0500 #### [facility] [address] [place], [address] WBC (Bld) [#/Vol] 5.6 10*3/uL Normal 4.4-11.0 [facility] Comment on above: Performed By: #### L 500.2500, L100.0500 #### [facility] [address] [place], [address] CRPon 05-16-2024 C-REACTIVE PROT 5.99 mg/L High 0.0-3.0 [facility] Comment on above: Order Comment: ADDED TO AM LABS Result Comment: C-Re active Protein (CRP) provides useful information for the diagnosis, therapy and monitoring of inflammatory processes and associated diseases. For the evaluation of Relative Risk for Cardiovascular Disease, a High Sensitivity CRP (HSCRP) should be ordered. Performed By: #### L 501.6710, L101.9900 #### [facility] [address] [place], [address] Erythrocyte Sed Rateon 05-16 SED RATE 5 mm/hr Normal 0-20 [facility] Comment on above: Order Comment: ADDED TO AM LABS Performed By: #### L 500.4050, L100.0100 #### [facility] [address] [place], [address] Phosphoruson 05-16-2024 Phosphate [Mass/Vol] 2.2 mg/dL Low 2.5-4.9 [facility] Comment on above: Performed By: #### L 100.0100, L500.4050 #### [facility] [address] [place], [address] 12 Lead EKGon 05-15-2024 12 Lead EKG [facility] Cardiovascular Services [address] [place] [address] 12 Lead EKG 05/15/24 1313 MR#: [id number] Acct: [id number] Name: DENIZ KUMAR Rep #: [id number] : 1935 88 From: Pierre Mcgee MD Attending Dr: Dr. Kendall Dowling DO Status: ADM ROSHNI Ordering Dr: Mark Boudreaux DO Date: 4 Location: [facility] Sex: M C Admitted: 05/15/24 Test Reason : REPEAT Blood Pressure : */* mmHG Vent. Rate : 87 BPM Atrial Rate : 87 BPM P-R Int : 174 ms QRS Dur : 94 ms QT Int : 382 ms P-R-T Axes : 28 -38 7 degrees QTcB Int : 459 ms Normal sinus rhythm Left axis deviation Abnormal ECG Confirmed by DELPHINE RICH, CEDRIC ([id number]), industrial editor ADELSO QUINTANA ([id number]) on 05/19/2024 7:55:55 AM Referred By: Confirmed By: CEDRIC MCGEE MD 05/19/24 0755 Date Pierre Mcgee MD CC: Dr. Mark Boudreaux DO; Dr. Kendall Dowling DO; Dr. Vadim Deras MD Signed Normal [facility] 12 Lead EKG [facility] Cardiovascular Services [address] [place] [address] 12 Lead EKG 05/15/24 1114 MR#: [id number] Acct: [id number] Name: DENIZ KUMAR Rep #: [id number] : 1935 88 From: Pierre Mcgee MD Attending Dr: Dr. Kendall Dowling DO Status: ADM ROSHNI Ordering Dr: Mark Boudreaux DO Date: 11/15/2 4 Location: [facility] Sex: M C Admitted: 05/15/24 Test Reason : Blood Pressure : */* mmHG Vent. Rate : 81 BPM Atrial Rate : 81 BPM P-R Int : 166 ms QRS Dur : 92 ms QT Int : 394 ms P-R-T Axes : 40 -36 8 degrees QTcB Int : 457 ms Normal sinus rhythm Left axis deviation Abnormal ECG Confirmed by DELPHINE RICH, CEDRIC ([id number]), industrial editor ADELSO QUINTANA ([id number]) on 05/19/2024 7:55:44 AM Referred By: Confirmed By: CEDRIC MCGEE MD 05/19/24 0755 Date Pierre Mcgee MD CC: Dr. Mark Boudreaux DO; Dr. Kendall Dowling DO; Dr. Vadim Deras MD Signed Normal [facility] Basic Metabolic Profile (BMP )on 05-15-2024 BUN/CRE 32.5 RATIO High 10-20 [facility] Comment on above: Order Comment: 'TROP ' Serial specimen #1, #2 or #3: 1 Performed By: #### L 100.0100, L500.4050 #### [facility] [address] [place], [address] CA,Total 9.1 mg/dL Normal 8.5-10.1 [facility] Comment on above: Order Comment: 'TROP ' Serial specimen #1, #2 or #3: 1 Performed By: #### L 100.0100, L500.4050 #### [facility] [address] [place], [address] Chloride [Moles/Vol] 107 mmol/L Normal 98-107 [facility] Comment on above: Order Comment: 'TROP ' Serial specimen #1, #2 or #3: 1 Performed By: #### L 100.0100, L500.4050 #### [facility] [address] [place], [address] CO2 [Moles/Vol] 28.0 mmol/L Normal 21.0-32.0 [facility] Comment on above: Order Comment: 'TROP ' Serial specimen #1, #2 or #3: 1 Performed By: #### L 100.0100, L500.4050 #### [facility] [address] [place], [address] Creatinine [Mass/Vol] 0.89 mg/dL Normal 0.70-1.30 [facility] Comment on above: Order Comment: 'TROP ' Serial specimen #1, #2 or #3: 1 Result Comment: The validity of the calculated GFR GFRAA in patients over 70 years has not been determined. Clinical correlation is essential. Performed By: #### L 100.0100, L500.4050 #### [facility] [address] [place], [address] ECRCL 71.03 ml/min Normal [facility] Comment on above: Order Comment: 'TROP ' Serial specimen #1, #2 or #3: 1 Performed By: #### L 100.0100, L500.4050 #### [facility] [address] [place], [address] EST GFR - AA 104 mL/min Normal >60 [facility] Comment on above: Order Comment: 'TROP ' Serial specimen #1, #2 or #3: 1 Result Comment: Afri can Faroese GFR Calc Performed By: #### L 100.0100, L500.4050 #### [facility] [address] [place], [address] GAP 6 Normal 5-15 [facility] Comment on above: Order Comment: 'TROP ' Serial specimen #1, #2 or #3: 1 Performed By: #### L 100.0100, L500.4050 #### [facility] [address] [place], [address] GFR/1.73 sq M.predicted among non-blacks MDRD (S/P/Bld) [Vol rate/Area] 86 mL/min/{1.73_m2} Normal >60 [facility] Comment on above: Order Comment: 'TROP ' Serial specimen #1, #2 or #3: 1 Result Comment: Non- GFR Calc Performed By: #### L 100.0100, L500.4050 #### [facility] [address] [place], [address] Glucose [Mass/Vol] 80 mg/dL Normal 74-106 [facility] Comment on above: Order Comment: 'TROP ' Serial specimen #1, #2 or #3: 1 Performed By: #### L 100.0100, L500.4050 #### [facility] [address] [place], [address] Potassium [Moles/Vol] 3.4 mmol/L Low 3.5-5.1 [facility] Comment on above: Order Comment: 'TROP ' Serial specimen #1, #2 or #3: 1 Performed By: #### L 100.0100, L500.4050 #### [facility] [address] [place], [address] Sodium [Moles/Vol] 141 mmol/L Normal 136-145 [facility] Comment on above: Order Comment: 'TROP ' Serial specimen #1, #2 or #3: 1 Performed By: #### L 100.0100, L500.4050 #### [facility] [address] [place], [address] Urea nitrogen [Mass/Vol] 29 mg/dL High 7-18 [facility] Comment on above: Order Comment: 'TROP ' Serial specimen #1, #2 or #3: 1 Performed By: #### L 100.0100, L500.4050 #### [facility] [address] [place], [address] CBC W/Diff, Automatedon 11-1 5-2023 Absolute Lymph 0.59 X10 3/uL Low 0.83-4.51 [facility] Comment on above: Performed By: #### L 100.0100, L500.4050 #### [facility] [address] [place], [address] Absolute Neut 5.3 X10 3/uL Normal 2.0-7.7 [facility] Comment on above: Performed By: #### L 100.0100, L500.4050 #### [facility] [address] [place], [address] Basophils/100 WBC (Bld) 0.3 % Normal 0-1 [facility] Comment on above: Performed By: #### L 100.0100, L500.4050 #### [facility] [address] [place], [address] Eosinophils/100 WBC (Bld) 0.0 % Normal 0-5 [facility] Comment on above: Performed By: #### L 100.0100, L500.4050 #### [facility] [address] [place], [address] Erythrocyte distribution width (RBC) [Ratio] 12.7 % Normal 11.6-14.6 [facility] Comment on above: Performed By: #### L 100.0100, L500.4050 #### [facility] [address] [place], [address] Hematocrit (Bld) [Volume fraction] 45.0 % Normal 40-54 [facility] Comment on above: Performed By: #### L 100.0100, L500.4050 #### [facility] [address] [place], [address] Hemoglobin (Bld) [Mass/Vol] 15.1 g/dL Normal 13.0-16.5 [facility] Comment on above: Performed By: #### L 100.0100, L500.4050 #### [facility] [address] [place], [address] IG% 2.400 High 0.0-0.9 [facility] Comment on above: Result Comment: IG% - Immature Granulocytes (promyelocytes, myelocytes and metamyelocytes) > 1% indicates that a LEFT SHIFT is Present. Performed By: #### L 100.0100, L500.4050 #### [facility] [address] [place], [address] Lymphocytes/100 WBC (Bld) 7.8 % Low 19-41 [facility] Comment on above: Performed By: #### L 100.0100, L500.4050 #### [facility] [address] [place], [address] MCH (RBC) [Entitic mass] 30.8 pg Normal 27.0-32.0 [facility] Comment on above: Performed By: #### L 100.0100, L500.4050 #### [facility] [address] [place], [address] MCHC (RBC) [Mass/Vol] 33.6 g/dL Normal 32-36 [facility] Comment on above: Performed By: #### L 100.0100, L500.4050 #### [facility] [address] [place], [address] MCV (RBC) [Entitic vol] 91.8 fL Normal 80-94 [facility] Comment on above: Performed By: #### L 100.0100, L500.4050 #### [facility] [address] [place], [address] Monocytes/100 WBC (Bld) 19.5 % High 0-10 [facility] Comment on above: Performed By: #### L 100.0100, L500.4050 #### [facility] [address] [place], [address] Neutrophils/100 WBC (Bld) 70.0 % Normal 47-70 [facility] Comment on above: Performed By: #### L 100.0100, L500.4050 #### [facility] [address] [place], [address] Nucleated RBC (Bld) [#/Vol] 0 10*3/uL Normal 0-5 [facility] Comment on above: Performed By: #### L 100.0100, L500.4050 #### [facility] [address] [place], [address] Platelet mean volume (Bld) [Entitic vol] 12.1 fL High 6.2-12.0 [facility] Comment on above: Performed By: #### L 100.0100, L500.4050 #### [facility] [address] [place], [address] Platelets (Bld) [#/Vol] 102 10*3/uL Low 150-450 [facility] Comment on above: Performed By: #### L 100.0100, L500.4050 #### [facility] [address] [place], [address] RBC (Bld) [#/Vol] 4.90 10*6/uL Normal 4.6-6.2 [facility] Comment on above: Performed By: #### L 100.0100, L500.4050 #### [facility] [address] [place], [address] RDW SD 43.1 fl Normal 35.1-43.9 [facility] Comment on above: Performed By: #### L 100.0100, L500.4050 #### [facility] [address] [place], [address] WBC (Bld) [#/Vol] 7.6 10*3/uL Normal 4.4-11.0 [facility] Comment on above: Performed By: #### L 100.0100, L500.4050 #### [facility] [address] [place], [address] Chest 1 View (Portable)on Chest 1 View (Portable) [facility] Imaging Services [address] [place] [address] Chest 1 View (Portable) MR#: [id number] Acct: [id number] Name: DENIZ KUMAR Rep #: [id number] : 1935 M 88 From: Kelton Dwyer MD PCP: Dr. Vadim Deras MD Status: REG ER Study: Chest 1 View (Portable) Date of Exam: 05/15/24 Exam# [id number] Ordering Dr: [place] [id number] EXAM: XR CHEST, 1 VIEW CLINICAL INDICATION: Weakness TECHNIQUE: Frontal view of the chest. COMPARISON: 12/10/2008. FINDINGS: LUNGS AND PLEURAL SPACES: Unremarkable. No consolidation or edema. No pneumothorax. No effusion. HEART: Unremarkable. Cardiac silhouette not enlarged. MEDIASTINUM: Central airways and mediastinal contour are unremarkable. BONES/JOINTS: Unremarkable. No acute fracture. SOFT TISSUES: Unremarkable. RAD/Chest 1 View (Portable) IMPRESSION: No radiographic evidence of acute cardiopulmonary disease and unchanged. Electronically Signed: Kelton Dwyer MD at 11:27 EST , CC: Dr. Mark Boudreaux DO; Dr. Vadim Deras MD Marketing Database Analyst: Signed Normal [facility] Echo Completeon 05-15-2024 Echo Complete [facility] Cardiovascular Services [address] [place] [address] Echo Complete 05/15/24 1532 MR#: [id number] Acct: [id number] Name: DENIZ KUMAR Rep #: [id number] : 1935 88 From: Pierre Mcgee MD Attending Dr: Dr. Elroy Nunez MD Status : ADM ROSHNI Ordering Dr: Jon Arce DO Date: 05/15/24 Location: [facility] Sex: M C Admitted: 05/15/24 Reason For Study: HTN Procedure This was a 2D Doppler, Color Flow transthoracic echocardiogram. Exam performed portable in patient room. Left Ventricle Normal LV size. The estimated ejection fraction is 55 %. Diastolic function is indeterminate. No regional wall motion abnormalities noted. Right Ventricle Normal RV size. Normal systolic function. Atria The left and right atria are normal. No doppler evidence for ASD. Mitral Valve There is no mitral valve stenosis. Trivial mitral valve insufficiency. Tricuspid Valve There is no tricuspid stenosis. Unable to estimate RV systolic pressure due to inadequate jet, pulmonary artery pressure probably normal. Aortic Valve Trisinus/trileaflet aortic valve. There is no aortic stenosis. Mild (1+) aortic valve insufficiency. Pulmonic Valve There is no pulmonic valvular stenosis. No pulmonic valve insufficiency. Great Vessels Normal aortic root. Pericardium/Pleural No pericardial effusion. Medication Performed a rapid injection of agitated mix of 9 cc saline and 1cc air to assess for atrial septal defect. MMode/2D Measurements Calculations RVDd: 3.0 cm Ao root diam: 4.1 cm LAV(MOD-bp): 76.0 ml LAV(MOD-bp) Indexed: 34.5 ml/m2 LAV(MOD-sp2): 88.7 ml LAV(MOD-sp4): 61.5 ml SV(MOD-sp4): 58.6 ml SV(sp4-el): 60.6 ml LVAd ap4: 33.6 cm2 LVLd ap4: 9.4 cm SI(MOD-sp4): 26.6 ml/m2 EDV(MOD-sp4): 101.7 ml EDV(sp4-el): 102.0 ml LVAs ap4: 19.9 cm2 LVLs ap4: 8.1 cm ESV(MOD-sp4): 43.1 ml ESV(sp4-el): 41.4 ml EF(MOD-sp4): 57.6 % EF(sp4-el): 59.4 % LA A4 area: 22.3 cm2 RA A4 area: 13.9 cm2 Time Measurements MV dec time: 0.31 sec Doppler Measurements Calculations MV E max sheryl: 32.0 cm/sec Lat Peak E' Sheryl: 8.1 cm/sec Med Peak E' Sheryl: 6.6 cm/sec MV A max sheryl: 71.2 cm/sec E/E' lat: 4.0 E/E' med: 4.9 MV E/A: 0.45 MV V2 max: 86.8 cm/sec MV dec slope: 104.9 cm/sec2 Ao V2 max: 112.2 cm/sec MV max P.0 mmHg Ao max P.0 mmHg MV V2 mean: 39.0 cm/sec Ao V2 mean: 70.8 cm/sec MV mean P.72 mmHg Ao mean P.5 mmHg MV V2 VTI: 21.7 cm Ao V2 VTI: 25.1 cm AV (velocity ratio): 0.85 AI max sheryl: 547.0 cm/sec LV V1 max: 95.7 cm/sec AI max P.7 mmHg LV V1 max P.7 mmHg AI dec slope: 255.6 cm/sec2 LV V1 mean P.2 mmHg AI P1/2t: 626.8 msec LV V1 mean: 70.6 cm/sec LV V1 VTI: 21.3 cm ECHO/Echo Complete Interpretation Summary The estimated ejection fraction is 55 %. Diastolic function is indeterminate. Trivial mitral valve insufficiency. Mild (1+) aortic valve insufficiency. Ordering Physician: Jon Arce Referring Physician: Vadim Deras M.D. Performed By: Vicky Wilson RCS 05/16/241758 Date Pierre Mcgee MD CC: Dr. Jon Arce DO; Dr. Elroy Nunez MD; Dr. Vadim Deras MD Date Dictated: 05/15/24 1532 Date Transcribed: 05/16/241758 Marketing Database Analyst: Signed Normal [facility] Emergency Department Summary on 05-15-2024 Emergency Department Summary [facility] Medical Records Department [address] [place] [address] Emergency Department Summary 05/15/24 MR#: [id number] Acct: [id number] Name: DENIZ KUMAR Rep #: [id number] : 1935 88 From: Mark WongRiley DO PCP: Dr. Vadim Deras MD Status:ADM IN Location: [place] [address] HPI History of Present Illness Chief Complaint: Weakness Narrative Narrative: Chief complaint and HPI: Weakness. 88-year-old male with history of BPH, HTN, and recent spinal stenosis presents for evaluation of weakness. Patient states that he has been having intermittent back pain. He states that he received a MRI for leg weakness a couple weeks ago and was diagnosed with spinal stenosis. Patient states that he has been at his normal state of health until this morning when he woke up with generalized weakness. He states that he had difficulty ambulating. Per triage note states that the patient fell getting out of bed however he declines this to me. He denies any fall or trauma. Denies any change or worsening of back pain. He states at baseline he has urinary incontinence in which states that he drinks little secondary to this. Denies numbness down the legs but states at baseline he has a little bit of numbness in his bilateral feet. Denies urinary retention, stool incontinence or retention, saddle anesthesia. He denies any fever, chills, shortness of breath, chest pain, abdominal pain, nausea, vomiting, diarrhea, constipation, dysuria. Denies any neurological deficit such as dysarthria, aphasia, facial asymmetry, focal weakness. Review of systems: See HPI Medications: As listed on the chart Allergies: As listed on the chart PFSH: Per chart Vital signs: As listed on the chart. Reviewed. Physical exam: Gen: A O x3, NAD Head: Normocephalic, atraumatic Eyes: No sclera icterus, conjunctiva clear, PERRL, EOMI ENT: Mildly dry mucous membranes Neck: Trachea midline, No JVD, full range of motion CV: RRR, no murmurs, no peripheral edema Resp: Lungs CTA BL, no w/r/c GI: Abd soft, non-distended, non-tender, no r/r/g Musc: Full ROM, no deformity, strength +5/5 in all extremities, DP/PT pulses plus 2 out of 4 bilaterally, no midline spinal tenderness, no bony step-offs Skin: Warm, dry, intact Neuro: Alert, oriented, grossly intact, sensation intact, no focal deficits Psych: Cooperative, appropriate mood and affect PFSH [facility] Medical History (Updated 05/15/24 @ 10:49 by Didi Ivey) Spinal stenosis TIA (transient ischemic attack) Diverticulosis Nonallergic rhinitis BPH (benign prostatic hyperplasia) Hypercholesterolemia Hypertension Home Medications ???Medication ???Instructions ???Recorded ???Last Taken ???Type doxazosin 1 mg tablet 1 mg PO DAILY BP 06/21/23 06/20/23 History finasteride 5 mg tablet 5 mg PO DAILY Bladder 06/21/23 06/21/23 History melatonin 3 mg capsule 3 mg PO DAILY Sleep 06/21/23 06/20/23 History Lactobacillus acidophilus 250 500 mmu cells PO DAILY Probiotic 06/27/23 Unknown History million cell capsule (Probiotic Acidophilus) acetaminophen 500 mg capsule 1,000 mg PO Q6H PRN pain 06/27/23 Unknown History sennosides 8.6 mg capsule (senna) 17.2 mg PO QHS Constipation 06/27/23 Unknown History calcium 500 mg (as 0.5 tab PO BIDCM #0 tabs 07/16/23 Unknown Rx carbonate)-vitamin D3 5 mcg (200 unit) tablet (Oyster Shell Calcium-Vitamin D3) chlorthalidone 50 mg tablet 25 mg (1/2 x 50 mg) PO DAILY #0 07/16/23 Unknown Rx tabs clonidine HCl 0.1 mg tablet 0.1 mg PO Q6H PRN PRN SYS>165 07/16/23 Unknown Rx DIAST>85 #0 tabs losartan 100 mg tablet 100 mg PO DAILY #0 tabs 07/16/23 Unknown Rx menthol 2 % topical gel (Blue Gel) 1 applic topical TID PRN PRN Pain 07/16/23 Unknown Rx Score 1-10 #0 grams multivitamin 1 tab PO BREAKFAST #0 tabs 07/16/23 Unknown Rx polyethylene glycol 3350 17 gram 17 g PO DAILY #0 ea 07/16/23 Unknown Rx oral powder packet aspirin 81 mg capsule 81 mg PO DAILY 05/15/24 Unknown History lisinopril 40 mg tablet 40 mg PO DAILY 05/15/24 Unknown History ofloxacin 0.3 % eye drops 1 drp RIGHT EYE 4X/DAY 05/15/24 Unknown History tolterodine 1 mg tablet 1 mg PO BID 05/15/24 Unknown History Allergy/AdvReac Type Severity Reaction Status Date / Time salicylic acid Allergy Swelling Verified 05/15/24 13:10 Family History (Updated 06/28/23 @ 16:[address] Mirian Farris DO) Father Cancer Prostate cancer Mother Cancer Liver cancer Sister Hypertension Hyperlipidemia Surgical History (Updated 07/26/23 @ 00:17 by Shelbie Cristina) History of open reduction and internal fixation (ORIF) procedure Social History (Updated 06/28/23 @ 16:[address] Mirian Fraris DO) household members: none housing: other details: Mobile home pets and animals: Yes (Dog) [place] (more content not included)... [facility] H AND P Exam - [facility] 05-15-2024 H&P Exam - Hospitalist [facility] Medical Records Department [address] [place] [address] H P Exam - Hospitalist 05/15/24 1331 MR#: [id number] Acct: [id number] Name: DENIZ KUMAR Rep #: [id number] : 1935 88 From: Jon Arce DO PCP: Dr. Vadim Deras MD Status:ADM IN Location: [place] [address] HPI - General General Date of Admission: 05/15/24 Date of Service: 05/15/24 Chief Complaint: Worsening leg weakness and difficulty with ambulation HPI Narrative DENIZ KUMAR, is a 88 M who presented to [facility] ED on 05/15/2024 with worsening leg weakness and difficulty with ambulation. Patient has had intermittent back pain over the past several months. He apparently saw neurology for this about 2 weeks ago and had an MRI of the lumbar spine that showed spinal stenosis. I was unable to view these records. Patient states no intervention was planned at this point and he was going to follow-up with neurology again in May. This morning upon awakening he had significant difficulty with going from sitting to standing and ambulating. He denies any recent falls or trauma. He denies significant lower leg weakness but rather feels like his lower body is going to give out when he stands. Denies any significant low back pain or discomfort. Denies any bowel incontinence or numbness/tingling in perineal area. Has known history of bladder incontinence that is stable from previous. Because of this weakness, he came into the ED for further evaluation. On arrival to the ED, patient was hemodynamically stable. Labs were largely unremarkable. However, he did have an elevated troponin of 69. No EKG changes noted. Repeat troponin 2 hours later increased to 96. Another EKG was obtained and was stable from previous. Patient denied any chest pain or shortness of breath. Nursing staff attempted to ambulate the patient with the assistance of his wheeled walker but he had significant difficulty with any ambulation at all. Given the difficulty with ambulation and elevated troponins, hospitalist was contacted for admission. I saw the patient at bedside in the ED, was present. Patient was sitting up comfortably in bed and in no acute distress. His blood pressure has been running high while in the ED and patient notes that he has been told by his PCP that his blood pressure has been high at his last few visits. Patient does note that he has not been taking his blood pressure medications regularly for an unclear reason. Has never had an echocardiogram done. No other cardiac history noted. Patient denies any other acute concerns currently. Will be admitted for further management. [facility] Medical History (Updated 05/15/24 @ 17:[address] Jon Arce, DO) Spinal stenosis TIA (transient ischemic attack) Diverticulosis Nonallergic rhinitis BPH (benign prostatic hyperplasia) Hypercholesterolemia Hypertension Home Medications ???Medication ???Instructions ???Recorded ???Last Taken ???Type doxazosin 1 mg tablet 1 mg PO DAILY BP 06/21/23 06/20/23 History finasteride 5 mg tablet 5 mg PO DAILY Bladder 06/21/23 06/21/23 History melatonin 3 mg capsule 3 mg PO DAILY Sleep 06/21/23 05/14/24 History Lactobacillus acidophilus 250 500 mmu cells PO DAILY Probiotic 06/27/23 Unknown History million cell capsule (Probiotic Acidophilus) acetaminophen 500 mg capsule 1,000 mg PO Q6H PRN pain 06/27/23 Unknown History calcium 500 mg (as 0.5 tab PO BIDCM #0 tabs 07/16/23 Unknown Rx carbonate)-vitamin D3 5 mcg (200 unit) tablet (Oyster Shell Calcium-Vitamin D3) chlorthalidone 50 mg tablet 25 mg (1/2 x 50 mg) PO DAILY #0 07/16/23 Unknown Rx tabs clonidine HCl 0.1 mg tablet 0.1 mg PO Q6H PRN PRN SYS>165 07/16/23 Unknown Rx DIAST>85 #0 tabs losartan 100 mg tablet 100 mg PO DAILY #0 tabs 07/16/23 Unknown Rx menthol 2 % topical gel (Blue Gel) 1 applic topical TID PRN PRN Pain 07/16/23 Unknown Rx Score 1-10 #0 grams multivitamin 1 tab PO BREAKFAST #0 tabs 07/16/23 Unknown Rx aspirin 81 mg capsule 81 mg PO DAILY 05/15/24 Unknown History lisinopril 40 mg tablet 40 mg PO DAILY 05/15/24 Unknown History ofloxacin 0.3 % eye drops 1 drp RIGHT EYE 4X/DAY 05/15/24 Unknown History tolterodine 1 mg tablet 1 mg PO BID 05/15/24 Unknown History Allergy/AdvReac Type Severity Reaction Status Date / Time salicylic acid Allergy Swelling Verified 05/15/24 13:10 Family History (Updated 06/28/23 @ 16:[address] Mirian Farris DO) Father Cancer Prostate cancer Mother Cancer Liver cancer Sister Hypertension Hyperlipidemia Surgical History (Updated 07/26/23 @ 00:17 by Shelbie Cristina) History of open reduction and internal fixation (ORIF) procedure Social History (Updated 06/28/23 @ 16:[address] Mirian Farris DO) household members: none housi (more content not included)... Normal [facility] L501.4020on 05-15-2024 TROPONIN-I HS 97 pg/mL High 3.0-78.0 [facility] Comment on above: Order Comment: 'TROP ' Serial specimen #1, #2 or #3: 3 Result Comment: Plea se Note: New Test Units and Gender Specific Reference Ranges. For more information see Policy Stat Procedure [place] High Sensitivity Troponin (TNIH) and attachments. Performed By: #### L 500.2500, L100.0500 #### [facility] [address] [place], [address] TROPONIN-I HS 96 pg/mL High 3.0-78.0 [facility] Comment on above: Order Comment: 'TROP ' Serial specimen #1, #2 or #3: 2 Result Comment: Plea se Note: New Test Units and Gender Specific Reference Ranges. For more information see Policy Stat Procedure [place] High Sensitivity Troponin (TNIH) and attachments. Performed By: #### L 500.2500, L100.0500 #### [facility] [address] [place], [address] TROPONIN-I HS 69 pg/mL Normal 3.0-78.0 [facility] Comment on above: Order Comment: 'TROP ' Serial specimen #1, #2 or #3: 1 Result Comment: Plea se Note: New Test Units and Gender Specific Reference Ranges. For more information see Policy Stat Procedure [place] High Sensitivity Troponin (TNIH) and attachments. Performed By: #### L 100.0100, L500.4050 #### [facility] [address] [facility] [place], [address] Lumbar Spine 2 or 3 Viewson 05-15-2024 Lumbar Spine 2 or 3 Views [facility] Imaging Services [address] [place] [address] Lumbar Spine 2 or 3 Views MR#: [id number] Acct: [id number] Name: DENIZ KUMAR Rep #: [id number] : 1935 M 88 From: Kelton Dwyer MD PCP: Dr. Vadim Deras MD Status: ADM IN Study: Lumbar Spine 2 or 3 Views Date of Exam: Exam# [id number] Ordering Dr: [place] [id number] EXAM: XR LUMBOSACRAL SPINE, 2 OR 3 VIEWS CLINICAL INDICATION: worsening low back pain w/ weakness TECHNIQUE: Frontal and lateral views of the lumbar spine and sacrum. COMPARISON: No relevant prior studies available. FINDINGS: VERTEBRAE: No suspicious acute fractures of the lumbar spine. Minimal degenerative anterolisthesis of L4 on L5. Moderate asymmetric L4-L5 degenerative facet arthropathy. No spondylolisthesis. Preservation of the normal lumbar lordosis. DISC SPACES: Moderate L4-L5 disc space height narrowing. Mild L5-S1 disc space height narrowing with degenerative vacuum phenomenon. Normal remaining lumbar disc space heights. GASTROINTESTINAL TRACT: Unremarkable as visualized. Included bowel gas pattern is non-obstructive. OTHERS: Calcified plaques along the tortuous abdominal aorta and calcified plaques in both common iliac arteries. RAD/Lumbar Spine 2 or 3 Views IMPRESSION: 1. No acute osseous abnormality of the lumbar spine. 2. Minimal degenerative anterolisthesis of L4 on L5, moderate L4-L5 disc space height narrowing and moderate asymmetric L4-L5 degenerative facet arthropathy. 3. Mild L5-S1 disc space height narrowing with degenerative vacuum phenomenon. Electronically Signed: Kelton Dwyer MD at 14:51 EST , CC: Dr. Jon Arce, DO; Dr. Vadim Deras MD Marketing Database Analyst: Signed Normal [facility] Magnesiumon 05-15-2024 Magnesium [Mass/Vol] 1.8 mg/dL Normal 1.6-2.6 [facility] Comment on above: Order Comment: 'TROP ' Serial specimen #1, #2 or #3: 2 Performed By: #### L 500.2500, L100.0500 #### [facility] [address] [facility] [address] Urinalysis, Completeon 05-15 BACTERIA RARE Normal None Seen [facility] Comment on above: Order Comment: CLEAN CATCH Performed By: #### L 500.2500, L100.0500 #### [facility] [address] [facility] [address] RBC 0-5 SEEN Normal 0-5 [facility] Comment on above: Order Comment: CLEAN CATCH Performed By: #### L 500.2500, L100.0500 #### [facility] [address] [facility] [address] BILIRUBIN URINE Negative Normal Negative [facility] Comment on above: Order Comment: CLEAN CATCH Performed By: #### L 500.2500, L100.0500 #### [facility] [address] [place], [address] Clarity (U) Clear Normal Clear [facility] Comment on above: Order Comment: CLEAN CATCH Performed By: #### L 500.2500, L100.0500 #### [facility] [address] [place], [address] Color (U) Straw Normal Yellow [facility] Comment on above: Order Comment: CLEAN CATCH Performed By: #### L 500.2500, L100.0500 #### [facility] [address] [place], [address] GLUCOSE, UR Normal Normal Normal [facility] Comment on above: Order Comment: CLEAN CATCH Performed By: #### L 500.2500, L100.0500 #### [facility] [address] [place], [address] KETONE UR Negative Normal Negative [facility] Comment on above: Order Comment: CLEAN CATCH Performed By: #### L 500.2500, L100.0500 #### [facility] [address] [place], [address] LEUK ESTERASE Negative Normal Negative [facility] Comment on above: Order Comment: CLEAN CATCH Performed By: #### L 500.2500, L100.0500 #### [facility] [address] [place], [address] Nitrite Ql (U) Negative Normal Negative [facility] Comment on above: Order Comment: CLEAN CATCH Performed By: #### L 500.2500, L100.0500 #### [facility] [address] [place], [address] OCCULT BLOOD-UR 25 /ul Abnormal Negative [facility] Comment on above: Order Comment: CLEAN CATCH Performed By: #### L 500.2500, L100.0500 #### [facility] [address] [place], [address] pH UR 7.0 Normal 5.0 - 8.0 [facility] Comment on above: Order Comment: CLEAN CATCH Performed By: #### L 500.2500, L100.0500 #### [facility] [address] [place], [address] PROT DIPSTX 30 mg/dl Abnormal Negative [facility] Comment on above: Order Comment: CLEAN CATCH Performed By: #### L 500.2500, L100.0500 #### [facility] [address] [place], [address] SP.GR. DIPSTX 1.010 Normal 1.002-1.030 [facility] Comment on above: Order Comment: CLEAN CATCH Performed By: #### L 500.2500, L100.0500 #### [facility] [address] [place], [address] UROBILI Normal Normal Normal [facility] Comment on above: Order Comment: CLEAN CATCH Performed By: #### L 500.2500, L100.0500 #### [facility] [address] [place], [address] EPI,SQUAMOUS 0 SEEN Normal 0-5 [facility] Comment on above: Order Comment: CLEAN CATCH Performed By: #### L 500.2500, L100.0500 #### [facility] [address] [place], [address] Mucus Ql (Urine sed) 0 SEEN Normal [facility] Comment on above: Order Comment: CLEAN CATCH Performed By: #### L 500.2500, L100.0500 #### [facility] [address] [place], [address] WBC 0 SEEN Normal 0-5 [facility] Comment on above: Order Comment: CLEAN CATCH Performed By: #### L 500.2500, L100.0500 #### [facility] [address] [place], [address] [facility] (INTMWS) DENIZ KUMAR ([id number]) 1935 M Date Time Provider Department 04/27/24 VADIM DERAS INTMWS During your visit today, we recorded the following information about you: Reese Murcia RN 04/27/2024 8:14 AM Signed Patient reports he had cancelled the tolterodine at the pharmacy, and since then has changed his mind, and would like to try it, for his BPH w/urgency of urination. Asking if pcp would resend this Rx to [facility]. Pended. Allergies As of Date: 04/27/2024 Noted Allergy Reaction [id number] REDUCTASE INHIBIT*08/23/2023 17 - Myalgia Comments: Weakess, falls CLEARASIL MAXIMUM STRENGTH 09/16/2018 7 - Swelling Date Reviewed: 03/16/2024 Reviewed by: Bonifacio Ledbetter Jr., MD - Fully Assessed Reason for Visit: Patient Question [1883] Visit Diagnoses:Benign prostatic hyperplasia with urinary obstruction [N40.1, N13.8] Urgency of urination [R39.15] Order(s):tolterodine (DETROL) 1 mg tabletTake 1 tablet by mouth two times a day.Disp: 60 tabletRfl: 0 Prescriptions as of 04/27/2024 - tolterodine (DETROL) 1 mg tablet Take 1 tablet by mouth two times a day. - lisinopril (ZESTRIL) 40 mg tablet Take 1 tablet by mouth once daily. - finasteride (PROSCAR) 5 mg tablet Take 1 tablet by mouth once daily. - melatonin 3 mg tablet Take 1 tablet by mouth daily at bedtime. - aspirin, enteric coated (ASPIRIN, ENTERIC COATED) 81 mg EC tablet Take 1 tablet by mouth once daily. - MULTIVITAMIN TAB Take one(1) tablet daily. Problem List As Of Date 04/27/2024 Noted Resolved Diverticulosis of large intestine [K57.30] 02/21/2024 Hyperlipidemia [E78.5] 08/28/2005 Essential hypertension [I10] 02/22/2006 Unspecified disorder of prostate [N42.9] 02/14/2007 07/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 [R79.89] 02/14/2007 07/12/2016 Dizziness and giddiness [R42] 08/22/2007 07/12/2016 Benign prostatic hyperplasia with urinary obstr*07/05/2010 Chronic nonallergic rhinitis [J31.0] 07/12/2016 02/21/2024 Thrombocytopenia, unspecified (HCC) [D69.6] 2017 Erectile dysfunction [N52.9] 01/16/2018 02/21/2024 Obesity, Class II, BMI 35-39.9 [E66.812] 07/28/2020 Urgency of urination [R39.15] 07/28/2020 Subdural hematoma (HCC) [S06.5XAA] 06/21/2023 Fall [W19.XXXA] 06/22/2023 Closed fracture of left ankle [S82.892A] 06/23/2023 02/21/2024 SAH (subarachnoid hemorrhage) (HCC) [I60.9] 07/16/2023 History of TIA (transient ischemic attack) [Z86*08/23/2023 Gait abnormality [R26.9] 08/23/2023 Edema of leg [R60.0] 02/21/2024 Prescriptions ordered this encounter Disp Refills Start End TOLTERODINE 1 MG TABLET 60 t* 0 04/27/2024 Route: ORAL Sig: Take 1 tablet by mouth two times a day. 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 If ok, will place referral. These findings may be the cause of patient's symptoms. MD Koki Monterroso Gillian, OCCA 04/13/2024 8:58 AM Signed TC to patient who verbalized understanding of providers message below. Patient agreeable to see Spine, please place consult. Patient also questioning if he needs to keep follow up appointment with Dr. Ledbetter on 06/26. ADRIAN Hall Allergies As of Date: 04/13/2024 Noted Allergy Reaction [id number] REDUCTASE INHIBIT*08/23/2023 17 - Myalgia Comments: Weakess, falls CLEARASIL MAXIMUM STRENGTH 09/16/2018 7 - Swelling Date Reviewed: 03/16/2024 Reviewed by: Bonifacio Ledbetter Jr., MD - Fully Assessed Reason for Visit: Results [95] Prescriptions as of 07/20/2024 - losartan (COZAAR) 100 mg tablet Take 100 mg by mouth once daily. - metoprolol tartrate, short acting, (LOPRESSOR) 25 mg tablet Take 25 mg by mouth two times a day. - potassium chloride ER (KLOR-CON) 20 mEq tablet Take 20 mEq by mouth two times a day. - sennosides-docusate sodium (SENNA PLUS) 8.6-50 mg capsule Take 1 capsule by mouth two times a day. Morning and bedtime for constipation - Cholecalciferol, Vitamin D3, (VITAMIN D-3) 50 mcg (2,000 unit) cap Take 1 capsule by mouth once daily. - rivaroxaban (XARELTO) 10 mg tablet Take 10 mg by mouth once daily. - carbidopa-levodopa (SINEMET) 25-100 mg per tablet Take 1 tablet with breakfast, 1 tablet with lunch and 1 tablet with dinner (8AM, Noon and 4 PM or 4-5 hours between doses). - tolterodine (DETROL) 1 mg tablet Take 1 tablet by mouth two times a day. - lisinopril (ZESTRIL) 40 mg tablet Take 1 tablet by mouth once daily. - finasteride (PROSCAR) 5 mg tablet Take 1 tablet by mouth once daily. - melatonin 3 mg tablet Take 1 tablet by mouth daily at bedtime. - aspirin, enteric coated (ASPIRIN, ENTERIC COATED) 81 mg EC tablet Take 1 tablet by mouth once daily. - MULTIVITAMIN TAB Take one(1) tablet daily. Problem List As Of Date 04/13/2024 Noted Resolved Diverticulosis of large intestine [K57.30] 02/21/2024 Hyperlipidemia [E78.5] 08/28/2005 Essential hypertension [I10] 02/22/2006 Unspecified disorder of prostate [N42.9] 02/14/2007 07/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 [R79.89] 02/14/2007 07/12/2016 Dizziness and giddiness [R42] 08/22/2007 07/12/2016 Benign prostatic hyperplasia with urinary obstr*07/05/2010 Chronic nonallergic rhinitis [J31.0] 07/12/2016 02/21/2024 Thrombocytopenia, unspecified (HCC) [D69.6] 2017 Erectile dysfunction [N52.9] 01/16/2018 02/21/2024 Obesity, Class II, BMI 35-39.9 [E66.812] 07/28/2020 Urgency of urination [R39.15] 07/28/2020 Subdural hematoma (HCC) [S06.5XAA] 06/21/2023 Fall [W19.XXXA] 06/22/2023 Closed fracture of left ankle [S82.892A] 06/23/2023 02/21/2024 SAH (subarachnoid hemorrhage) (HCC) [I60.9] 07/16/2023 History of TIA (transient ischemic attack) [Z86*08/23/2023 Gait abnormality [R26.9] 08/23/2023 Edema of leg [R60.0] 02/21/2024 Encounter Status:Closed by ROBINA COATS on 07/20/24 Normal [facility] 04-12-2024 CNPN Telephone (NESLBA) LINDADENIZ ([id number]) 1935 M Date Time Provider Department 04/12/24 BONIFACIO LEDBETTER JR During your visit today, we recorded the following information about you: Allergies As of Date: 04/12/2024 Noted Allergy Reaction [id number] REDUCTASE INHIBIT*08/23/2023 17 - Myalgia Comments: Weakess, falls CLEARASIL MAXIMUM STRENGTH 09/16/2018 7 - Swelling Date Reviewed: 03/16/2024 Reviewed by: Bonifacio Ledbetter Jr., MD - Fully Assessed Primary Visit Diagnosis:Cervical stenosis of spine [M48.02] Other Visit Diagnosis:Spinal stenosis of lumbar region, unspecified whether neurogenic claudication present [M48.061] Order(s):CONSULT TO [facility] [143035] Order #: [id number]: 1 FUTURE Prescriptions as of 04/12/2024 - lisinopril (ZESTRIL) 40 mg tablet Take 1 tablet by mouth once daily. - finasteride (PROSCAR) 5 mg tablet Take 1 tablet by mouth once daily. - melatonin 3 mg tablet Take 1 tablet by mouth daily at bedtime. - aspirin, enteric coated (ASPIRIN, ENTERIC COATED) 81 mg EC tablet Take 1 tablet by mouth once daily. - MULTIVITAMIN TAB Take one(1) tablet daily. Problem List As Of Date 04/12/2024 Noted Resolved Diverticulosis of large intestine [K57.30] 02/21/2024 Hyperlipidemia [E78.5] 08/28/2005 Essential hypertension [I10] 02/22/2006 Unspecified disorder of prostate [N42.9] 02/14/2007 07/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 [R79.89] 02/14/2007 07/12/2016 Dizziness and giddiness [R42] 08/22/2007 07/12/2016 Benign prostatic hyperplasia with urinary obstr*07/05/2010 Chronic nonallergic rhinitis [J31.0] 07/12/2016 02/21/2024 Thrombocytopenia, unspecified (HCC) [D69.6] 2017 Erectile dysfunction [N52.9] 01/16/2018 02/21/2024 Obesity, Class II, BMI 35-39.9 [E66.812] 07/28/2020 Urgency of urination [R39.15] 07/28/2020 Subdural hematoma (HCC) [S06.5XAA] 06/21/2023 Fall [W19.XXXA] 06/22/2023 Closed fracture of left ankle [S82.892A] 06/23/2023 02/21/2024 SAH (subarachnoid hemorrhage) (HCC) [I60.9] 07/16/2023 History of TIA (transient ischemic attack) [Z86*08/23/2023 Gait abnormality [R26.9] 08/23/2023 Edema of leg [R60.0] 02/21/2024 Encounter Status:Closed by BONIFACIO LEDBETTER on 04/12/24 Normal [facility] MR Brain WO contraston 04-10 IMPRESSION: No acute intracranial pathology. Marketing Database Analyst: KATIA Transcribe Date/Time: Apr 10 2024 9:04A Dictated by : KASEY IBANEZ MD This examination was interpreted and the report reviewed and electronically signed by: KASEY IBANEZ MD on Apr 10 2024 9:08AM [facility] DIVISION OF RADIOLOGY * * *Final Report* * * DATE OF EXAM: Apr 10 2024 8:43AM [facility] 0294 - MRI BRAIN WO IVCON / PROCEDURE REASON: Ataxia * * * * Physician Interpretation * * * * EXAMINATION: MRI BRAIN WO IVCON CLINICAL HISTORY: Ataxia TECHNIQUE: Routine noncontrast MRI protocol including diffusion images. MQ: [email or web address] COMPARISON: Head CT, 08/02/2023 and cervical spine MRI, same day RESULT: Acute Change: There is no evidence of restricted diffusion to suggest an acute infarct. Hemorrhage: There are chronic microhemorrhages in the left cerebral white matter most pronounced posteriorly as well as a small volume of chronic hemosiderin deposition in the posterior left cerebral sulci. No acute intracranial hemorrhage. Mass Lesion/ Mass Effect: No evidence of an intracranial mass or extra-axial fluid collection. No significant mass effect. Chronic Change: Patchy nonspecific T2 hyperintense signal in the white matter, likely secondary to chronic small vessel ischemic disease. Prominent perivascular spaces versus chronic lacunar infarcts in the basal ganglia bilaterally. Small chronic infarcts in the cerebellum. Parenchyma: Generalized volume loss. The brain parenchyma is otherwise within normal limits of signal intensity and morphology. Ventricles: Ventriculomegaly corresponds to the degree of parenchymal volume loss. Skull Base: Hypothalamic and pituitary region are unremarkable. Craniocervical junction is normal. No significant marrow replacement process. Vasculature: Major intracranial arterial structures and dural venous sinuses show typical flow voids. Other: Left lens replacements, the orbits are otherwise unremarkable. Scattered paranasal sinus mucosal thickening. Mastoid air cells are clear. The extracranial soft tissues are unremarkable. DIVISION OF RADIOLOGY Provider, [facility] - 04/10/2024 * * *Final Report* * * DATE OF EXAM: Apr 10 2024 8:43AM [facility] 0294 - MRI BRAIN WO IVCON / PROCEDURE REASON: Ataxia * * * * Physician Interpretation * * * * EXAMINATION: MRI BRAIN WO IVCON CLINICAL HISTORY: Ataxia TECHNIQUE: Routine noncontrast MRI protocol including diffusion images. MQ: [id number]_2 COMPARISON: Head CT, 08/02/2023 and cervical spine MRI, same day RESULT: Acute Change: There is no evidence of restricted diffusion to suggest an acute infarct. Hemorrhage: There are chronic microhemorrhages in the left cerebral white matter most pronounced posteriorly as well as a small volume of chronic hemosiderin deposition in the posterior left cerebral sulci. No acute intracranial hemorrhage. Mass Lesion/ Mass Effect: No evidence of an intracranial mass or extra-axial fluid collection. No significant mass effect. Chronic Change: Patchy nonspecific T2 hyperintense signal in the white matter, likely secondary to chronic small vessel ischemic disease. Prominent perivascular spaces versus chronic lacunar infarcts in the basal ganglia bilaterally. Small chronic infarcts in the cerebellum. Parenchyma: Generalized volume loss. The brain parenchyma is otherwise within normal limits of signal intensity and morphology. Ventricles: Ventriculomegaly corresponds to the degree of parenchymal volume loss. Skull Base: Hypothalamic and pituitary region are unremarkable. Craniocervical junction is normal. No significant marrow replacement process. Vasculature: Major intracranial arterial structures and dural venous sinuses show typical flow voids. Other: Left lens replacements, the orbits are otherwise unremarkable. Scattered paranasal sinus mucosal thickening. Mastoid air cells are clear. The extracranial soft tissues are unremarkable. IMPRESSION IMPRESSION: No acute intracranial pathology. Marketing Database Analyst: KATIA Transcribe Date/Time: Apr 10 2024 9:04A Dictated by : KASEY IBANEZ MD This examination was interpreted and the report reviewed and electronically signed by: KASEY IBANEZ MD on Apr 10 2024 9:08AM EST [facility] MR Brain WO contrastOrdered By: [facility] Provider on 04-10-2024 [facility] MR Cervical spine WO contras ton 04-10-2024 * * *Final Report* * * DATE OF EXAM: Apr 10 2024 8:43AM [id number] [id number] - MRI CERVICAL SPINE WO IVCON / PROCEDURE REASON: multiple diagnoses * * * * Physician Interpretation * * * * EXAMINATION: MRI CERVICAL SPINE WO IVCON, MRI LUMBAR SPINE WO IVCON CLINICAL HISTORY: Tremor; leg weakness; Spinal stenosis of cervical and lumbar region TECHNIQUE: Routine cervical and lumbosacral spine MR protocol without gadolinium. MQ: MRCLWO_1 COMPARISON: Brain MRI, same day RESULT: Counting reference: Craniocervical and lumbosacral junctions For the purposes of this report, L4-5 is considered the level of the iliac crest and assume there are 5 lumbar-type vertebrae. Anatomic variant: None. Localizer images: T2 hyperintense parapelvic renal cysts. Colonic diverticulosis. CERVICAL: Alignment: Mild retrolisthesis at C2-3, C7/T1, and T1-2 Craniocervical junction: Degenerative changes at the atlantoaxial joint with associated soft tissue thickening, no marrow edema or spinal canal narrowing. Cord: Mild multilevel mass effect on the visualized cord without associated abnormal signal. Bone marrow signal/fracture: Degenerative endplate changes with associated marrow edema, most pronounced at C5-6. A heterogeneous T1 and T2 signal intensity nodule at T4 is consistent with a benign hemangioma, no other marrow lesion. No evidence of prior fracture. Cervical soft tissues: The paraspinal soft tissues are within normal limits. C2-C3: Canal and foramina are patent. C3-C4: Disc osteophyte complex and facet and uncovertebral hypertrophy with mild spinal canal narrowing as well as mild right and severe left neural foramen narrowing. C4-C5: Disc osteophyte complex, ligamentum flavum thickening, and facet and uncovertebral hypertrophy with moderate spinal canal narrowing and severe bilateral neural foramen narrowing. C5-C6: Disc osteophyte complex, ligamentum flavum thickening, and facet and uncovertebral hypertrophy with severe spinal canal narrowing as well as moderate right and severe left neural foramen narrowing. C6-C7: Disc osteophyte complex and facet and uncovertebral hypertrophy with mild spinal canal narrowing and mild bilateral neural foramen narrowing. C7-T1: Disc osteophyte complex without canal or foraminal narrowing. LUMBAR: Alignment: Grade 1 anterolisthesis at L4-5 Bone marrow signal/fracture: Degenerative endplate changes with associated mild marrow edema at L4-5 and L5-S1. A heterogeneous T1 and T2 signal intensity nodule at L2 is consistent with a benign hemangioma, no other focal marrow lesion. No evidence of prior fracture. Conus: The visualized spinal cord is normal in morphology and signal intensity. The cauda equina is unremarkable. Paraspinal soft tissues: Paraspinal muscular atrophy, the paraspinal soft tissues are otherwise unremarkable. Lower thoracic spine: Visualized lower thoracic canal and foramina are patent. L1-L2: Disc bulge, facet hypertrophy, and ligamentum flavum thickening with mild narrowing of both subarticular recesses and neural foramina. L2-L3: Disc bulge, facet hypertrophy, and ligamentum flavum thickening with mild central spinal canal narrowing, moderate narrowing of both subarticular recesses, and mild bilateral neural foramen narrowing. L3-L4: Disc bulge, facet hypertrophy, and ligamentum flavum thickening with moderate central spinal canal narrowing, severe narrowing of both subarticular recesses, and moderate bilateral neural foramen narrowing. L4-L5: Disc bulge, facet hypertrophy, and ligamentum flavum thickening with diffuse moderate spinal canal narrowing and mild left and moderate right neural foramen narrowing. L5-S1: Disc bulge, facet hypertrophy, and ligamentum flavum thickening with mild narrowing of both subarticular recesses and moderate bilateral neural foramen narrowing. Sacrum and iliac wings: The visualized sacrum and iliac wings are within normal limits. The presacral soft tissues are normal in appearance. DIVISION OF RADIOLOGY Provider, [facility] - 04/10/2024 * * *Final Report* * * DATE OF EXAM: Apr 10 2024 8:43AM [facility] [id number] - MRI CERVICAL SPINE WO IVCON / PROCEDURE REASON: multiple diagnoses * * * * Physician Interpretation * * * * EXAMINATION: MRI CERVICAL SPINE WO IVCON, MRI LUMBAR SPINE WO IVCON CLINICAL HISTORY: Tremor; leg weakness; Spinal stenosis of cervical and lumbar region TECHNIQUE: Routine cervical and lumbosacral spine MR protocol without gadolinium. MQ: MRCLWO_1 COMPARISON: Brain MRI, same day RESULT: Counting reference: Craniocervical and lumbosacral junctions For the purposes of this report, L4-5 is considered the level of the iliac crest and assume there are 5 lumbar-type vertebrae. Anatomic variant: None. Localizer images: T2 hyperintense parapelvic renal cysts. Colonic diverticulosis. CERVICAL: Alignment: Mild retrolisthesis at C2-3, C7/T1, and T1-2 Craniocervical junction: Degenerative changes at the atlantoaxial joint with associated soft tissue thickening, no marrow edema or spinal canal narrowing. Cord: Mild multilevel mass effect on the visualized cord without associated abnormal signal. Bone marrow signal/fracture: Degenerative endplate changes with associated marrow edema, most pronounced at C5-6. A heterogeneous T1 and T2 signal intensity nodule at T4 is consistent with a benign hemangioma, no other marrow lesion. No evidence of prior fracture. Cervical soft tissues: The paraspinal soft tissues are within normal limits. C2-C3: Canal and foramina are patent. C3-C4: Disc osteophyte complex and facet and uncovertebral hypertrophy with mild spinal canal narrowing as well as mild right and severe left neural foramen narrowing. C4-C5: Disc osteophyte complex, ligamentum flavum thickening, and facet and uncovertebral hypertrophy with moderate spinal canal narrowing and severe bilateral neural foramen narrowing. C5-C6: Disc osteophyte complex, ligamentum flavum thickening, and facet and uncovertebral hypertrophy with severe spinal canal narrowing as well as moderate right and severe left neural foramen narrowing. C6-C7: Disc osteophyte complex and facet and uncovertebral hypertrophy with mild spinal canal narrowing and mild bilateral neural foramen narrowing. C7-T1: Disc osteophyte complex without canal or foraminal narrowing. LUMBAR: Alignment: Grade 1 anterolisthesis at L4-5 Bone marrow signal/fracture: Degenerative endplate changes with associated mild marrow edema at L4-5 and L5-S1. A heterogeneous T1 and T2 signal intensity nodule at L2 is consistent with a benign hemangioma, no other focal marrow lesion. No evidence of prior fracture. Conus: The visualized spinal cord is normal in morphology and signal intensity. The cauda equina is unremarkable. Paraspinal soft tissues: Paraspinal muscular atrophy, the paraspinal soft tissues are otherwise unremarkable. Lower thoracic spine: Visualized lower thoracic canal and foramina are patent. L1-L2: Disc bulge, facet hypertrophy, and ligamentum flavum thickening with mild narrowing of both subarticular recesses and neural foramina. L2-L3: Disc bulge, facet hypertrophy, and ligamentum flavum thickening with mild central spinal canal narrowing, moderate narrowing of both subarticular recesses, and mild bilateral neural foramen narrowing. L3-L4: Disc bulge, facet hypertrophy, and ligamentum flavum thickening with moderate central spinal canal narrowing, severe narrowing of both subarticular recesses, and moderate bilateral neural foramen narrowing. L4-L5: Disc bulge, facet hypertrophy, and ligamentum flavum thickening with diffuse moderate spinal canal narrowing and mild left and moderate right neural foramen narrowing. L5-S1: Disc bulge, facet hypertrophy, and ligamentum flavum thickening with mild narrowing of both subarticular recesses and moderate bilateral neural foramen narrowing. Sacrum and iliac wings: The visualized sacrum and iliac wings are within normal limits. The presacral soft tissues are normal in appearance. IMPRESSION IMPRESSION: Cervical spine degenerative changes most pronounced at C4-5 and C5-6. Lumbar spine degenerative changes most pronounced at L3-4. Cervical Anatomic Variant: None. Assume 7 cervical vertebrae with counting from the craniocervical junction. Anatomic Thoracic/Lumbar Variant: None. L4-5 is considered the level of the iliac crest and assume there are 5 lumbar-type vertebrae. Marketing Database Analyst: KATIA Transcribe Date/Time: Apr 10 2024 9:08A Dictated by : KASEY IBANEZ MD This examination was interpreted and the report reviewed and electronically signed by: KASEY IBANEZ MD on Apr 10 2024 9:19AM [facility] MR Lumbar spine WO evon meek 04-10-2024 * * *Final Report* * * DATE OF EXAM: Apr 10 2024 8:43AM [facility] 0303 - MRI LUMBAR SPINE WO IVCON / PROCEDURE REASON: Spinal stenosis of lumbar region without neurogenic claudication * * * * Physician Interpretation * * * * EXAMINATION: MRI CERVICAL SPINE WO IVCON, MRI LUMBAR SPINE WO IVCON CLINICAL HISTORY: Tremor; leg weakness; Spinal stenosis of cervical and lumbar region TECHNIQUE: Routine cervical and lumbosacral spine MR protocol without gadolinium. MQ: MRCLWO_1 COMPARISON: Brain MRI, same day RESULT: Counting reference: Craniocervical and lumbosacral junctions For the purposes of this report, L4-5 is considered the level of the iliac crest and assume there are 5 lumbar-type vertebrae. Anatomic variant: None. Localizer images: T2 hyperintense parapelvic renal cysts. Colonic diverticulosis. CERVICAL: Alignment: Mild retrolisthesis at C2-3, C7/T1, and T1-2 Craniocervical junction: Degenerative changes at the atlantoaxial joint with associated soft tissue thickening, no marrow edema or spinal canal narrowing. Cord: Mild multilevel mass effect on the visualized cord without associated abnormal signal. Bone marrow signal/fracture: Degenerative endplate changes with associated marrow edema, most pronounced at C5-6. A heterogeneous T1 and T2 signal intensity nodule at T4 is consistent with a benign hemangioma, no other marrow lesion. No evidence of prior fracture. Cervical soft tissues: The paraspinal soft tissues are within normal limits. C2-C3: Canal and foramina are patent. C3-C4: Disc osteophyte complex and facet and uncovertebral hypertrophy with mild spinal canal narrowing as well as mild right and severe left neural foramen narrowing. C4-C5: Disc osteophyte complex, ligamentum flavum thickening, and facet and uncovertebral hypertrophy with moderate spinal canal narrowing and severe bilateral neural foramen narrowing. C5-C6: Disc osteophyte complex, ligamentum flavum thickening, and facet and uncovertebral hypertrophy with severe spinal canal narrowing as well as moderate right and severe left neural foramen narrowing. C6-C7: Disc osteophyte complex and facet and uncovertebral hypertrophy with mild spinal canal narrowing and mild bilateral neural foramen narrowing. C7-T1: Disc osteophyte complex without canal or foraminal narrowing. LUMBAR: Alignment: Grade 1 anterolisthesis at L4-5 Bone marrow signal/fracture: Degenerative endplate changes with associated mild marrow edema at L4-5 and L5-S1. A heterogeneous T1 and T2 signal intensity nodule at L2 is consistent with a benign hemangioma, no other focal marrow lesion. No evidence of prior fracture. Conus: The visualized spinal cord is normal in morphology and signal intensity. The cauda equina is unremarkable. Paraspinal soft tissues: Paraspinal muscular atrophy, the paraspinal soft tissues are otherwise unremarkable. Lower thoracic spine: Visualized lower thoracic canal and foramina are patent. L1-L2: Disc bulge, facet hypertrophy, and ligamentum flavum thickening with mild narrowing of both subarticular recesses and neural foramina. L2-L3: Disc bulge, facet hypertrophy, and ligamentum flavum thickening with mild central spinal canal narrowing, moderate narrowing of both subarticular recesses, and mild bilateral neural foramen narrowing. L3-L4: Disc bulge, facet hypertrophy, and ligamentum flavum thickening with moderate central spinal canal narrowing, severe narrowing of both subarticular recesses, and moderate bilateral neural foramen narrowing. L4-L5: Disc bulge, facet hypertrophy, and ligamentum flavum thickening with diffuse moderate spinal canal narrowing and mild left and moderate right neural foramen narrowing. L5-S1: Disc bulge, facet hypertrophy, and ligamentum flavum thickening with mild narrowing of both subarticular recesses and moderate bilateral neural foramen narrowing. Sacrum and iliac wings: The visualized sacrum and iliac wings are within normal limits. The presacral soft tissues are normal in appearance. DIVISION OF RADIOLOGY Provider, [facility] - 04/10/2024 * * *Final Report* * * DATE OF EXAM: Apr 10 2024 8:43AM [facility] [id number] - MRI LUMBAR SPINE WO IVCON / PROCEDURE REASON: Spinal stenosis of lumbar region without neurogenic claudication * * * * Physician Interpretation * * * * EXAMINATION: MRI CERVICAL SPINE WO IVCON, MRI LUMBAR SPINE WO IVCON CLINICAL HISTORY: Tremor; leg weakness; Spinal stenosis of cervical and lumbar region TECHNIQUE: Routine cervical and lumbosacral spine MR protocol without gadolinium. MQ: MRCLWO_1 COMPARISON: Brain MRI, same day RESULT: Counting reference: Craniocervical and lumbosacral junctions For the purposes of this report, L4-5 is considered the level of the iliac crest and assume there are 5 lumbar-type vertebrae. Anatomic variant: None. Localizer images: T2 hyperintense parapelvic renal cysts. Colonic diverticulosis. CERVICAL: Alignment: Mild retrolisthesis at C2-3, C7/T1, and T1-2 Craniocervical junction: Degenerative changes at the atlantoaxial joint with associated soft tissue thickening, no marrow edema or spinal canal narrowing. Cord: Mild multilevel mass effect on the visualized cord without associated abnormal signal. Bone marrow signal/fracture: Degenerative endplate changes with associated marrow edema, most pronounced at C5-6. A heterogeneous T1 and T2 signal intensity nodule at T4 is consistent with a benign hemangioma, no other marrow lesion. No evidence of prior fracture. Cervical soft tissues: The paraspinal soft tissues are within normal limits. C2-C3: Canal and foramina are patent. C3-C4: Disc osteophyte complex and facet and uncovertebral hypertrophy with mild spinal canal narrowing as well as mild right and severe left neural foramen narrowing. C4-C5: Disc osteophyte complex, ligamentum flavum thickening, and facet and uncovertebral hypertrophy with moderate spinal canal narrowing and severe bilateral neural foramen narrowing. C5-C6: Disc osteophyte complex, ligamentum flavum thickening, and facet and uncovertebral hypertrophy with severe spinal canal narrowing as well as moderate right and severe left neural foramen narrowing. C6-C7: Disc osteophyte complex and facet and uncovertebral hypertrophy with mild spinal canal narrowing and mild bilateral neural foramen narrowing. C7-T1: Disc osteophyte complex without canal or foraminal narrowing. LUMBAR: Alignment: Grade 1 anterolisthesis at L4-5 Bone marrow signal/fracture: Degenerative endplate changes with associated mild marrow edema at L4-5 and L5-S1. A heterogeneous T1 and T2 signal intensity nodule at L2 is consistent with a benign hemangioma, no other focal marrow lesion. No evidence of prior fracture. Conus: The visualized spinal cord is normal in morphology and signal intensity. The cauda equina is unremarkable. Paraspinal soft tissues: Paraspinal muscular atrophy, the paraspinal soft tissues are otherwise unremarkable. Lower thoracic spine: Visualized lower thoracic canal and foramina are patent. L1-L2: Disc bulge, facet hypertrophy, and ligamentum flavum thickening with mild narrowing of both subarticular recesses and neural foramina. L2-L3: Disc bulge, facet hypertrophy, and ligamentum flavum thickening with mild central spinal canal narrowing, moderate narrowing of both subarticular recesses, and mild bilateral neural foramen narrowing. L3-L4: Disc bulge, facet hypertrophy, and ligamentum flavum thickening with moderate central spinal canal narrowing, severe narrowing of both subarticular recesses, and moderate bilateral neural foramen narrowing. L4-L5: Disc bulge, facet hypertrophy, and ligamentum flavum thickening with diffuse moderate spinal canal narrowing and mild left and moderate right neural foramen narrowing. L5-S1: Disc bulge, facet hypertrophy, and ligamentum flavum thickening with mild narrowing of both subarticular recesses and moderate bilateral neural foramen narrowing. Sacrum and iliac wings: The visualized sacrum and iliac wings are within normal limits. The presacral soft tissues are normal in appearance. IMPRESSION IMPRESSION: Cervical spine degenerative changes most pronounced at C4-5 and C5-6. Lumbar spine degenerative changes most pronounced at L3-4. Cervical Anatomic Variant: None. Assume 7 cervical vertebrae with counting from the craniocervical junction. Anatomic Thoracic/Lumbar Variant: None. L4-5 is considered the level of the iliac crest and assume there are 5 lumbar-type vertebrae. Marketing Database Analyst: [email or web address] Transcribe Date/Time: Apr 10 2024 9:08A Dictated by : KASEY IBANEZ MD This examination was interpreted and the report reviewed and electronically signed by: KASEY IBANEZ MD on Apr 10 2024 9:19AM [facility] MRI BRAIN WO IVCONon 024 MRI BRAIN WO IVCON * * *Final Report* * * DATE OF EXAM: Apr 10 2024 8:43AM [facility] 0294 - MRI BRAIN WO IVCON / PROCEDURE REASON: Ataxia * * * * Physician Interpretation * * * * EXAMINATION: MRI BRAIN WO IVCON CLINICAL HISTORY: Ataxia TECHNIQUE: Routine noncontrast MRI protocol including diffusion images. MQ: MRBWO_2 COMPARISON: Head CT, 08/02/2023 and cervical spine MRI, same day RESULT: Acute Change: There is no evidence of restricted diffusion to suggest an acute infarct. Hemorrhage: There are chronic microhemorrhages in the left cerebral white matter most pronounced posteriorly as well as a small volume of chronic hemosiderin deposition in the posterior left cerebral sulci. No acute intracranial hemorrhage. Mass Lesion/ Mass Effect: No evidence of an intracranial mass or extra-axial fluid collection. No significant mass effect. Chronic Change: Patchy nonspecific T2 hyperintense signal in the white matter, likely secondary to chronic small vessel ischemic disease. Prominent perivascular spaces versus chronic lacunar infarcts in the basal ganglia bilaterally. Small chronic infarcts in the cerebellum. Parenchyma: Generalized volume loss. The brain parenchyma is otherwise within normal limits of signal intensity and morphology. Ventricles: Ventriculomegaly corresponds to the degree of parenchymal volume loss. Skull Base: Hypothalamic and pituitary region are unremarkable. Craniocervical junction is normal. No significant marrow replacement process. Vasculature: Major intracranial arterial structures and dural venous sinuses show typical flow voids. Other: Left lens replacements, the orbits are otherwise unremarkable. Scattered paranasal sinus mucosal thickening. Mastoid air cells are clear. The extracranial soft tissues are unremarkable. IMPRESSION: No acute intracranial pathology. Marketing Database Analyst: PSCB Transcribe Date/Time: Apr 10 2024 9:04A Dictated by : KASEY IBANEZ MD This examination was interpreted and the report reviewed and electronically signed by: KASEY IBANEZ MD on Apr 10 2024 9:08AM EST [id number] Normal [facility] MRI CERVICAL SPINE WO IVCONo n 04-10-2024 MRI CERVICAL SPINE WO IVCON * * *Final Report* * * DATE OF EXAM: Apr 10 2024 8:43AM [facility] [id number] - MRI CERVICAL SPINE WO IVCON / PROCEDURE REASON: multiple diagnoses * * * * Physician Interpretation * * * * EXAMINATION: MRI CERVICAL SPINE WO IVCON, MRI LUMBAR SPINE WO IVCON CLINICAL HISTORY: Tremor; leg weakness; Spinal stenosis of cervical and lumbar region TECHNIQUE: Routine cervical and lumbosacral spine MR protocol without gadolinium. MQ: [id number]_1 COMPARISON: Brain MRI, same day RESULT: Counting reference: Craniocervical and lumbosacral junctions For the purposes of this report, L4-5 is considered the level of the iliac crest and assume there are 5 lumbar-type vertebrae. Anatomic variant: None. Localizer images: T2 hyperintense parapelvic renal cysts. Colonic diverticulosis. CERVICAL: Alignment: Mild retrolisthesis at C2-3, C7/T1, and T1-2 Craniocervical junction: Degenerative changes at the atlantoaxial joint with associated soft tissue thickening, no marrow edema or spinal canal narrowing. Cord: Mild multilevel mass effect on the visualized cord without associated abnormal signal. Bone marrow signal/fracture: Degenerative endplate changes with associated marrow edema, most pronounced at C5-6. A heterogeneous T1 and T2 signal intensity nodule at T4 is consistent with a benign hemangioma, no other marrow lesion. No evidence of prior fracture. Cervical soft tissues: The paraspinal soft tissues are within normal limits. C2-C3: Canal and foramina are patent. C3-C4: Disc osteophyte complex and facet and uncovertebral hypertrophy with mild spinal canal narrowing as well as mild right and severe left neural foramen narrowing. C4-C5: Disc osteophyte complex, ligamentum flavum thickening, and facet and uncovertebral hypertrophy with moderate spinal canal narrowing and severe bilateral neural foramen narrowing. C5-C6: Disc osteophyte complex, ligamentum flavum thickening, and facet and uncovertebral hypertrophy with severe spinal canal narrowing as well as moderate right and severe left neural foramen narrowing. C6-C7: Disc osteophyte complex and facet and uncovertebral hypertrophy with mild spinal canal narrowing and mild bilateral neural foramen narrowing. C7-T1: Disc osteophyte complex without canal or foraminal narrowing. LUMBAR: Alignment: Grade 1 anterolisthesis at L4-5 Bone marrow signal/fracture: Degenerative endplate changes with associated mild marrow edema at L4-5 and L5-S1. A heterogeneous T1 and T2 signal intensity nodule at L2 is consistent with a benign hemangioma, no other focal marrow lesion. No evidence of prior fracture. Conus: The visualized spinal cord is normal in morphology and signal intensity. The cauda equina is unremarkable. Paraspinal soft tissues: Paraspinal muscular atrophy, the paraspinal soft tissues are otherwise unremarkable. Lower thoracic spine: Visualized lower thoracic canal and foramina are patent. L1-L2: Disc bulge, facet hypertrophy, and ligamentum flavum thickening with mild narrowing of both subarticular recesses and neural foramina. L2-L3: Disc bulge, facet hypertrophy, and ligamentum flavum thickening with mild central spinal canal narrowing, moderate narrowing of both subarticular recesses, and mild bilateral neural foramen narrowing. L3-L4: Disc bulge, facet hypertrophy, and ligamentum flavum thickening with moderate central spinal canal narrowing, severe narrowing of both subarticular recesses, and moderate bilateral neural foramen narrowing. L4-L5: Disc bulge, facet hypertrophy, and ligamentum flavum thickening with diffuse moderate spinal canal narrowing and mild left and moderate right neural foramen narrowing. L5-S1: Disc bulge, facet hypertrophy, and ligamentum flavum thickening with mild narrowing of both subarticular recesses and moderate bilateral neural foramen narrowing. Sacrum and iliac wings: The visualized sacrum and iliac wings are within normal limits. The presacral soft tissues are normal in appearance. IMPRESSION: Cervical spine degenerative changes most pronounced at C4-5 and C5-6. Lumbar spine degenerative changes most pronounced at L3-4. Cervical Anatomic Variant: None. Assume 7 cervical vertebrae with counting from the craniocervical junction. Anatomic Thoracic/Lumbar Variant: None. L4-5 is considered the level of the iliac crest and assume there are 5 lumbar-type vertebrae. Marketing Database Analyst: KATIA Transcribe Date/Time: Apr 10 2024 9:08A Dictated by : KASEY IBANEZ MD This examination was interpreted and the report reviewed and electronically signed by: KASEY IBANEZ MD on Apr 10 2024 9:19AM EST [id number] Normal [facility] MRI LUMBAR SPINE WO IVCONon 04-10-2024 MRI LUMBAR SPINE WO IVCON * * *Final Report* * * DATE OF EXAM: Apr 10 2024 8:43AM [id number] - MRI LUMBAR SPINE WO IVCON / PROCEDURE REASON: Spinal stenosis of lumbar region without neurogenic claudication * * * * Physician Interpretation * * * * EXAMINATION: MRI CERVICAL SPINE WO IVCON, MRI LUMBAR SPINE WO IVCON CLINICAL HISTORY: Tremor; leg weakness; Spinal stenosis of cervical and lumbar region TECHNIQUE: Routine cervical and lumbosacral spine MR protocol without gadolinium. MQ: MRCLWO_1 COMPARISON: Brain MRI, same day RESULT: Counting reference: Craniocervical and lumbosacral junctions For the purposes of this report, L4-5 is considered the level of the iliac crest and assume there are 5 lumbar-type vertebrae. Anatomic variant: None. Localizer images: T2 hyperintense parapelvic renal cysts. Colonic diverticulosis. CERVICAL: Alignment: Mild retrolisthesis at C2-3, C7/T1, and T1-2 Craniocervical junction: Degenerative changes at the atlantoaxial joint with associated soft tissue thickening, no marrow edema or spinal canal narrowing. Cord: Mild multilevel mass effect on the visualized cord without associated abnormal signal. Bone marrow signal/fracture: Degenerative endplate changes with associated marrow edema, most pronounced at C5-6. A heterogeneous T1 and T2 signal intensity nodule at T4 is consistent with a benign hemangioma, no other marrow lesion. No evidence of prior fracture. Cervical soft tissues: The paraspinal soft tissues are within normal limits. C2-C3: Canal and foramina are patent. C3-C4: Disc osteophyte complex and facet and uncovertebral hypertrophy with mild spinal canal narrowing as well as mild right and severe left neural foramen narrowing. C4-C5: Disc osteophyte complex, ligamentum flavum thickening, and facet and uncovertebral hypertrophy with moderate spinal canal narrowing and severe bilateral neural foramen narrowing. C5-C6: Disc osteophyte complex, ligamentum flavum thickening, and facet and uncovertebral hypertrophy with severe spinal canal narrowing as well as moderate right and severe left neural foramen narrowing. C6-C7: Disc osteophyte complex and facet and uncovertebral hypertrophy with mild spinal canal narrowing and mild bilateral neural foramen narrowing. C7-T1: Disc osteophyte complex without canal or foraminal narrowing. LUMBAR: Alignment: Grade 1 anterolisthesis at L4-5 Bone marrow signal/fracture: Degenerative endplate changes with associated mild marrow edema at L4-5 and L5-S1. A heterogeneous T1 and T2 signal intensity nodule at L2 is consistent with a benign hemangioma, no other focal marrow lesion. No evidence of prior fracture. Conus: The visualized spinal cord is normal in morphology and signal intensity. The cauda equina is unremarkable. Paraspinal soft tissues: Paraspinal muscular atrophy, the paraspinal soft tissues are otherwise unremarkable. Lower thoracic spine: Visualized lower thoracic canal and foramina are patent. L1-L2: Disc bulge, facet hypertrophy, and ligamentum flavum thickening with mild narrowing of both subarticular recesses and neural foramina. L2-L3: Disc bulge, facet hypertrophy, and ligamentum flavum thickening with mild central spinal canal narrowing, moderate narrowing of both subarticular recesses, and mild bilateral neural foramen narrowing. L3-L4: Disc bulge, facet hypertrophy, and ligamentum flavum thickening with moderate central spinal canal narrowing, severe narrowing of both subarticular recesses, and moderate bilateral neural foramen narrowing. L4-L5: Disc bulge, facet hypertrophy, and ligamentum flavum thickening with diffuse moderate spinal canal narrowing and mild left and moderate right neural foramen narrowing. L5-S1: Disc bulge, facet hypertrophy, and ligamentum flavum thickening with mild narrowing of both subarticular recesses and moderate bilateral neural foramen narrowing. Sacrum and iliac wings: The visualized sacrum and iliac wings are within normal limits. The presacral soft tissues are normal in appearance. IMPRESSION: Cervical spine degenerative changes most pronounced at C4-5 and C5-6. Lumbar spine degenerative changes most pronounced at L3-4. Cervical Anatomic Variant: None. Assume 7 cervical vertebrae with counting from the craniocervical junction. Anatomic Thoracic/Lumbar Variant: None. L4-5 is considered the level of the iliac crest and assume there are 5 lumbar-type vertebrae. Marketing Database Analyst: [facility] Transcribe Date/Time: Apr 10 2024 9:08A Dictated by : KASEY IBANEZ MD This examination was interpreted and the report reviewed and electronically signed by: KASEY IBANEZ MD on Apr 10 2024 9:19AM EST [id number] Normal [facility] No Panel Informationon 04-10 IMPRESSION: Cervical spine degenerative changes most pronounced at C4-5 and C5-6. Lumbar spine degenerative changes most pronounced at L3-4. Cervical Anatomic Variant: None. Assume 7 cervical vertebrae with counting from the craniocervical junction. Anatomic Thoracic/Lumbar Variant: None. L4-5 is considered the level of the iliac crest and assume there are 5 lumbar-type vertebrae. Marketing Database Analyst: [facility] Transcribe Date/Time: Apr 10 2024 9:08A Dictated by : KASEY IBANEZ MD This examination was interpreted and the report reviewed and electronically signed by: KASEY IBANEZ MD on Apr 10 2024 9:19AM EST DIVISION OF RADIOLOGY [facility] Rad[facility] (TOMY ) DENIZ KUMAR ([id number]) 1935 M Date Time Provider Department 03/13/24 9:20 AM BONIFACIO LEDBETTER JR During your visit today, we recorded the following information about you: Pulse Blood pressure Weight 62/minute 145/90 98.2 kg Bonifacio Ledbetter Jr., MD 03/16/2024 8:40 AM Signed NEW PATIENT (CONSULT) HISTORY AND PHYSICAL EXAM PRIMARY CARE PHYSICIAN: Vadim Deras MD REASON FOR CONSULT: Abnormal gait, leg weakness. REFERRING PHYSICIAN: Vadim Deras MD CHIEF COMPLAINT: Unsteady gait Consultation requested by Vadim Deras MD for an opinion regarding chief complaint of Patient presents with: New Patient: Gait abnormality, bilateral leg weakness and my final recommendations will be communicated back to the requesting physician by way of shared medical record or letter via US mail. HISTORY OF PRESENT ILLNESS: Deniz Kumar is a 88 year old male, with a PMH significant for HTN, HLD, thrombocytopenia as well as SDH in 05/2023 secondary to fall and associated with a L ankle fracture. Per neurosurgery notes, SDH near-resolved on serial CTs earlier this year. Note that it appears pt only had CT scans at time of SDH and no MRI brain performed. (CT images and reports reviewed and agree with rad reports -- images also reviewed with pt and his family during office visit with demonstration of prior intracranial hemorrhage). No significant spine imaging. Pt reports weakness started before the above fall and that is why he was out trying to exercise. 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 Patient states he felt things started going down hill when first Rx'd statins that were causing pains in the prox legs - resulting in his wanting to then exercise more and resulting in the fall. Off statins and pain now gone. However, then reports when performs therapy is having pain in "lower back, rear end and thighs per patient." Patient does reports falls since that resulting in the head injury. Denies numbness or tingling. Patient reports bladder issues but relates it to enlarged prostate. Currently with nocturia. Pt does not provide history to clarify if incontinence. Denies any change in vision (chronic L retinal disorder), speech, dizziness or arm strength. Sister feels that since fall, in addition to gait complaints, patient is having more difficulties with word retrieval and legs are obviously weak. Notes occasional tremor when holding a cup. Handwriting a bit smaller. No constipation. No RBD type symptoms. No family history of neuro disorders. REVIEW OF SYSTEMS GENERAL:No weight loss, malaise or fevers. HEENT:Negative for frequent or significant headaches, No changes in hearing or vision, no nose bleeds or other nasal problems NECK:Negative for lumps, goiter, pain and significant neck swelling RESPIRATORY: Negative for cough, wheezing or shortness of breath. CARDIOVASCULAR: Negative for chest pain, + leg swelling or palpitations. GASTROINTESTINAL: Negative for abdominal discomfort, blood in stools or black stools or change in bowel habits GENITOURINARY: No history of dysuria, frequency or incontinence MUSCULOSKELETAL: Negative for joint pain or swelling, back pain or muscle pain. NEUROLOGIC:See HPI. SKIN:Negative for lesions, rash, and itching. PSYCHIATRIC: Negative for sleep disturbance, mood disorder and recent psychosocial stressors. HEMATOLOGIC/LYMPHATIC/I MMUNOLOGIC:Negative for prolonged bleeding, bruising easily or swollen nodes. ENDOCRINE: Negative for cold or heat intolerance, polyuria, polydipsia and goiter. The remainder of the ROS was reviewed and is negative. LAB/IMAGING: Reviewed and include: WBC (k/uL) Date Value 02/14/2024 3.74 RBC (m/uL) Date Value 02/14/2024 4.85 Hemoglobin (g/dL) Date Value 02/14/2024 14.7 Hematocrit (%) Date Value 02/14/2024 43.5 MCV (fL) Date Value 02/14/2024 89.7 MCH (pg) Date Value 02/14/2024 30.3 MCHC (g/dL) Date Value 02/14/2024 33.8 RDW-CV (%) Date Value 02/14/2024 13.2 Platelet Count (k/uL) Date Value 02/14/2024 117 (L) MPV (fL) Date Value 02/14/2024 11.0 Glucose (mg/dL) Date Value 02/14/2024 88 BUN (mg/dL) Date Value 02/14/2024 18 Creatinine (mg/dL) Date Value 02/14/2024 0.82 Sodium (mmol/L) Date Value 02/14/2024 136 Potassium (mmol/L) Date Value 02/14/2024 4.2 Chloride (mmol/L) Date Value 02/14/2024 102 CO2 (mmol/L) Date Value 02/14/2024 26 Protein, Total (g/dL) Date Value 11/14/2023 6.3 Albumin (g/dL) Date Value 11/14/2023 4.0 Calcium, Total (mg/dL) Date Value 02/14/2024 9.7 Alkaline Phosphatase (U/L) Date Value 11/14/2023 70 Bilirubin, Total (mg/dL) Date Value 11/14/2023 0.6 AST (U/L) Date Value 11/14/2023 16 ALT (U/L) Date Value 11/14/2023 13 URINALYSIS S (more content not included)... Normal [facility] CNPNon 02-25-2024 CNPN Telephone (FAMWS) DENIZ KUMAR ([id number]) 1935 M Date Time Provider Department 02/25/24 [facility]ADIM [facility]AS [facility] During your visit today, we recorded the following information about you: Melanie Naylor LPN 02/25/2024 4:01 PM Signed Pt calls to report that insurance will not cover tolterodine 1 mg tab so he will not be taking medication. ESTELA Borrero Victor H, MD 02/26/2024 3:18 AM Signed Noted. Allergies As of Date: 02/25/2024 Noted Allergy Reaction [id number] REDUCTASE INHIBIT*08/23/2023 17 - Myalgia Comments: Weakess, falls CLEARASIL MAXIMUM STRENGTH 09/16/2018 7 - Swelling Date Reviewed: 02/21/2024 Reviewed by: Sonia Fox LPN - Fully Assessed Reason for Visit: Medication Problem [65] Prescriptions as of 02/26/2024 - lisinopril (ZESTRIL) 40 mg tablet Take 1 tablet by mouth once daily. - finasteride (PROSCAR) 5 mg tablet Take 1 tablet by mouth once daily. - melatonin 3 mg tablet Take 1 tablet by mouth daily at bedtime. - aspirin, enteric coated (ASPIRIN, ENTERIC COATED) 81 mg EC tablet Take 1 tablet by mouth once daily. - MULTIVITAMIN TAB Take one(1) tablet daily. Problem List As Of Date 02/25/2024 Noted Resolved Diverticulosis of large intestine [K57.30] 02/21/2024 Hyperlipidemia [E78.5] 08/28/2005 Essential hypertension [I10] 02/22/2006 Unspecified disorder of prostate [N42.9] 02/14/2007 07/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 [R79.89] 02/14/2007 07/12/2016 Dizziness and giddiness [R42] 08/22/2007 07/12/2016 Benign prostatic hyperplasia with urinary obstr*07/05/2010 Chronic nonallergic rhinitis [J31.0] 07/12/2016 02/21/2024 Thrombocytopenia, unspecified (HCC) [D69.6] 2017 Erectile dysfunction [N52.9] 01/16/2018 02/21/2024 Obesity, Class II, BMI 35-39.9 [E66.9] 07/28/2020 Urgency of urination [R39.15] 07/28/2020 Subdural hematoma (HCC) [S06.5XAA] 06/21/2023 Fall [W19.XXXA] 06/22/2023 Closed fracture of left ankle [S82.892A] 06/23/2023 02/21/2024 SAH (subarachnoid hemorrhage) (HCC) [I60.9] 07/16/2023 History of TIA (transient ischemic attack) [Z86*08/23/2023 Gait abnormality [R26.9] 08/23/2023 Edema of leg [R60.0] 02/21/2024 Medications Discontinued During This Encounter Prescriptions - tolterodine (DETROL) 1 mg tablet (Discontinued) Take 1 tablet by mouth two times a day. Encounter Status:Closed by VADIM DERAS on 02/26/24 [facility] CNLeola 02-21-2024 CNOV Office Visit (INTMWS ) DENIZ KUMAR ([id number]) 1935 Date Time Provider Department 02/21/24 9:20 AM VADIM DERAS INTMWS During your visit today, we recorded the following information about you: Pulse Respiration Blood pressure Weight 79/minute 16/minute 112/73 96.7 kg Height 1.829 m Ruddy SoniaESTELA 02/21/2024 9:34 AM Signed VISUAL ACUITY: Today's exam: Vision Correction? Glasses: RIGHT EYE: 20/unable due to previous eye injury LEFT EYE: 20/30 BOTH EYES: 20/25 Vadim Deras MD 02/21/2024 11:07 AM Signed Deniz Kumar is a 88 year old male here for a Medicare wellness visit. Medicare Health Risk Assessment General Health Fair Exercise: Minutes/Day 30 min Exercise: Days/Week 3 days Alcohol: Daily Use 2-4 times a month Alcohol: Drinks/Day 1 or 2 Alcohol: 6 or more drinks Never Feel off balance Yes Concerns: Teeth/Dentures No Concerns: Sexual function No Troubled by feelings Stressed Frequency: Eating healthy diet More than half the days ADLs requiring help Cooking Safety precautions in home/vehicle Yes Smoke, vape, chews tobacco No Difficulty hearing No Difficulty seeing No Current Providers Specialists: I have reviewed specialist-related care of the patient in the medical record. Current care team: Patient Care Team: Vadim Deras MD as PCP - General (Internal Medicine) Outside specialists seen: Clinton Rivera MD, Ophthalmology. Bonifacio Ledbetter MD, Urology. Medical/Family history review Reviewed and updated problem list, medical/surgical/family /social history, medications, and allergies. Opioid use review Opioid Medications (last 90 days) No data to display Anxiety/Depression screening Recommendation: no further intervention at this time Cognitive screening Mini Cog Score: 5 Cognitive screening reviewed and No further action needed (score 3-5). Functional Observation Was the patient's Timed Up AND Go test unsteady or ? 12 seconds? No Advance Care Planning Surrogate decision maker and/or advance care plan documented Measurements BP 112/73 Pulse 79 Resp 16 Ht 182.9 cm (6') Wt 96.7 kg (213 lb 3 oz) SpO2 98% BMI 28.91 kg/m? Vision Screening: Follows with optometry/ophthalmology Right: 20/30 Left: 20/ 25 Both: 20/25 Assessment/Plan Medicare annual wellness visit, subsequent (Z00.00) - Counseled on healthy diet and regular exercise - Fall avoidance information provided - Personalized prevention plan provided - Discussed need for and benefit of weight loss. BMI 28.91 kg/(m2) - Vaccine recommendations reviewed. Get at pharmacy. Vadim Deras MD 02/21/2024 11:07 AM Signed This note was created using [email or web address]. Subjective Deniz Kumar is a 88 year old male. He was doing home exercises and working out at for leg strengthening. He complained of ongoing edema, and nocturia. Oxybutynin was no longer effective. 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 Review of Systems Constitutional: Negative for fatigue. Respiratory: Negative for shortness of breath. Cardiovascular: Positive for leg swelling. Negative for chest pain and palpitations. Gastrointestinal: Negative. Genitourinary: Positive for frequency and urgency. Negative for difficulty urinating and dysuria. Musculoskeletal: Negative for arthralgias. Neurological: Negative for dizziness and headaches. ACTIVE PROBLEM LIST Diverticulosis of Large Intestine Hyperlipidemia Essential Hypertension Benign Prostatic Hyperplasia With Urinary Obstruction Chronic Nonallergic Rhinitis Thrombocytopenia, Unspecified (Hcc) Erectile Dysfunction Obesity, Class II, Bmi 35-39.9 Urgency of Urination Subdural Hematoma (Hcc) Fall Closed Fracture of Left Ankle Sah (Subarachnoid Hemorrhage) (Hcc) History of Tia (Transient Ischemic Attack) Gait Abnormality Social History Tobacco Use Smoking status: Former Current packs/day: 0.50 Average packs/day: 0.5 packs/day for 5.0 years (2.5 ttl pk-yrs) Types: Cigarettes, Pipe Smokeless tobacco: Never Vaping Use Vaping status: Never Used Substance Use Topics Alcohol use: Yes Alcohol/week: 1.0 standard drink of alcohol Types: 1 Cans of beer per week Comment: or less. Drug use: Not Currently Types: Marijuana Current Outpatient Medications Medication Sig oxybutynin ER (DITROPAN XL) 10 mg 24 hr tablet Take 1 tablet by mouth every evening. lisinopril (ZESTRIL) 40 mg tablet Take 1 tablet by mouth once daily. finasteride (PROSCAR) 5 mg tablet Take 1 tablet by mouth once daily. doxazosin (CARDURA) 1 mg tablet Take 1 tablet by mouth once daily. melatonin 3 mg tablet Take 1 tablet by mouth daily at bedtime. aspirin, enteric coated (ASPIRIN, ENTERIC COATED) 81 mg EC tablet Take 1 tablet by mouth once daily. MULTIVITAMIN TAB Take one(1) tablet daily. No current fa (more content not included)... Normal [facility] Basic metabolic 2000 panelon 02-14-2024 Anion gap [Moles/Vol] 8 mmol/L Normal 8-15 [facility] Comment on above: Order Comment: Speci men Type: BLOOD SPECIMENOrdering Facility: [facility] Address: [address] [place] [address] Performed By: #### 2 4321-2 ####[facility] MILLWKYLIA [id number] [place] [address] [place] Calcium [Mass/Vol] 9.7 mg/dL Normal 8.5-10.2 [facility] Comment on above: Order Comment: Speci men Type: BLOOD SPECIMENOrdering Facility: [facility] Address: [address] [place] [address] Performed By: #### 2 4321-2 ####[facility]ITALWKYLIA [id number] [place] [address] [place] Chloride [Moles/Vol] 102 mmol/L Normal 98-107 [facility] Comment on above: Order Comment: Speci men Type: BLOOD SPECIMENOrdering Facility: [facility] Address: [address] [place] [address] Performed By: #### 2 4321-2 ####[facility] MILLWNCLIA [id number] [place] [address] [place] CO2 [Moles/Vol] 26 mmol/L Normal 22-30 [facility] Comment on above: Order Comment: Speci men Type: BLOOD SPECIMENOrdering Facility: [facility] Address: [address] [place] [address] Performed By: #### 2 4321-2 ####[facility]CL[facility] [id number] [place] [address] [place] Creatinine [Mass/Vol] 0.82 mg/dL Normal 0.73-1.22 [facility] Comment on above: Order Comment: Manuel valentine Type: BLOOD SPECIMENOrdering Facility: [facility] Address: [address] [place] [address] Performed By: #### 2 4321-2 ####[facility] [id number] [place] [address] [place] Creatinine and Glomerular filtration rate.predicted panel (S/P/Bld) 85 mL/min/1.73m??? Normal >=60 [facility] Comment on above: Order Comment: Manuel valentine Type: BLOOD SPECIMENOrdering Facility: [facility] Address: [address] [place] [address] Result Comment: Franny mated Glomerular Filtration Rate (eGFR) is calculated using the 2020 CKD-EPI creatinine equation. This equation utilizes serum creatinine, sex, and age as parameters. The creatinine assay has traceable calibration to isotope dilution-mass spectrometry. Refer to KDIGO guidelines for clinical interpretation. In patients with unstable renal function, e.g. those with acute kidney injury, the eGFR may not accurately reflect actual GFR. Performed By: #### 2 4321-2 ####[facility] [id number] [place] [address] [place] Glucose [Mass/Vol] 88 mg/dL Normal 74-99 [facility] Comment on above: Order Comment: Manuel valentine Type: BLOOD SPECIMENOrdering Facility: [facility] Address: [address] [place] [address] Result Comment: The [place] Diabetes Association (ADA) provides guidance for cutoff values for fasting glucose and random glucose. The ADA defines fasting as no caloric intake for at least 8 hours. Fasting plasma glucose results between 100 to 125 mg/dL indicate increased risk for diabetes (prediabetes). Fasting plasma glucose results greater than or equal to 126 mg/dL meet the criteria for diagnosis of diabetes. In the absence of unequivocal hyperglycemia, results should be confirmed by repeat testing. In a patient with classic symptoms of hyperglycemia or hyperglycemic crisis, random plasma glucose results greater than or equal to 200 mg/dL meet the criteria for diagnosis of diabetes. Reference: Standards of Medical Care in Diabetes 2016, [place] [employer] Association. Diabetes Care. 2016.39(Suppl 1). Performed By: #### 2 4321-2 ####[facility] HEYDIMEG [id number] [place] [address] [place] Potassium [Moles/Vol] 4.2 mmol/L Normal 3.7-5.1 [facility] Comment on above: Order Comment: Speci men Type: BLOOD SPECIMENOrdering Facility: [facility] Address: [address] [place] [address] Performed By: #### 2 4321-2 ####[facility]ENTERNCNe [id number] [place] [address] [place] Sodium [Moles/Vol] 136 mmol/L Normal 136-144 [facility] Comment on above: Order Comment: Speci men Type: BLOOD SPECIMENOrdering Facility: [facility] Address: [address] [place] [address] Performed By: #### 2 4321-2 ####[facility]ERNCMCK[facility] [id number] [place] [address] [place] Urea nitrogen [Mass/Vol] 18 mg/dL Normal 9-24 [facility] Comment on above: Order Comment: Speci men Type: BLOOD SPECIMENOrdering Facility: [facility] Address: [address] [place] [address] Performed By: #### 2 4321-2 ####[facility]ENTERNCLIA [id number] [place] [address] [place] CBC panel Auto (Bld)on 02-13 Erythrocyte distribution width (RBC) [Ratio] 13.2 % Normal 11.5-15.0 [facility] Comment on above: Order Comment: Speci men Type: BLOOD SPECIMENOrdering Facility: [facility] Address: [address] [place], [place] [address] Performed By: #### 5 8410-2 ####[facility] MILLTOWNCLIA [id number] [place] [address] [place] Hematocrit (Bld) [Volume fraction] 43.5 % Normal 39.0-51.0 [facility] Comment on above: Order Comment: Speci men Type: BLOOD SPECIMENOrdering Facility: [facility] Address: [address] [place] [address] Performed By: #### 5 8410-2 ####[facility]ENTERNCLIA [id number] [place] [address] [place] Hemoglobin (Bld) [Mass/Vol] 14.7 g/dL Normal 13.0-17.0 [facility] Comment on above: Order Comment: Speci men Type: BLOOD SPECIMENOrdering Facility: [facility] Address: [address] [place] [address] Performed By: #### 5 8410-2 ####[facility]ENTERNCLIA [id number] [place] [address] [place] MCH (RBC) [Entitic mass] 30.3 pg Normal 26.0-34.0 [facility] Comment on above: Order Comment: Speci men Type: BLOOD SPECIMENOrdering Facility: [facility] Address: [address] [place] [address] Performed By: #### 5 8410-2 ####[facility]ITALWNCLIA [id number] [place] [address] [place] MCHC (RBC) [Mass/Vol] 33.8 g/dL Normal 30.5-36.0 [facility] Comment on above: Order Comment: Speci men Type: BLOOD SPECIMENOrdering Facility: [facility] Address: [address] [place] [address] Performed By: #### 5 8410-2 ####[facility] CENTERDERIANLIA [id number] [place] [address] [place] MCV (RBC) [Entitic vol] 89.7 fL Normal 80.0-100.0 [facility] Comment on above: Order Comment: Speci men Type: BLOOD SPECIMENOrdering Facility: [facility] Address: [address] [place] [address] Performed By: #### 5 8410-2 ####[facility] [id number] [place] [address] [place] Nucleated RBC (Bld) [#/Vol] 10*3/uL Normal <0.01 [facility] Comment on above: Order Comment: Speci men Type: BLOOD SPECIMENOrdering Facility: [facility] Address: [address] [place] [address] Performed By: #### 5 8410-2 ####[facility] [id number] [place] [address] [place] Platelet mean volume (Bld) [Entitic vol] 11.0 fL Normal 9.0-12.7 [facility] Comment on above: Order Comment: Speci men Type: BLOOD SPECIMENOrdering Facility: [facility] Address: [address] [place] [address] Performed By: #### 5 8410-2 ####[facility] [id number] [place] [address] [place] Platelets (Bld) [#/Vol] 117 10*3/uL Low 150-400 [facility] Comment on above: Order Comment: Speci men Type: BLOOD SPECIMENOrdering Facility: [facility] Address: [address] [place] [address] Result Comment: No c lot detected. Performed By: #### 5 8410-2 ####[facility] [id number] [place] [address] [place] RBC (Bld) [#/Vol] 4.85 10*6/uL Normal 4.20-6.00 [facility] Comment on above: Order Comment: Speci men Type: BLOOD SPECIMENOrdering Facility: [facility] Address: [address] [place] [address] Performed By: #### 5 8410-2 ####[facility] HOSPITALFRIDARIZWAN [id number] [address] OF [facility] WBC (Bld) [#/Vol] 3.74 10*3/uL Normal 3.70-11.00 [facility] Comment on above: Order Comment: Speci men Type: BLOOD SPECIMENOrdering Facility: [facility] Address: [address] [place] [address] Performed By: #### 5 8410-2 ####[facility] CENTERRIZWAN [id number] [address] OF [facility]PL[facility] DENIZ KUMAR ([id number]) 1935 M Date Time Provider Department 02/13/24 VADIM DERAS 4CQ During your visit today, we recorded the following information about you: Robina Smith 02/13/2024 7:20 AM Signed Patient came in expecting labs for [facility] appointment on 02/21/24. No labs were placed. Please adivise and call patient if labs are placed. UMER Mauricio Tara, ESTELA 02/13/2024 1:57 PM Signed Patient called in again to see if any orders have been placed. Vadim Deras MD 02/13/2024 7:20 PM Signed Orders placed. Brenda Linares RN 02/13/2024 7:21 PM Signed PATIENT NOTIFIED OF INFORMATION Allergies As of Date: 02/13/2024 Noted Allergy Reaction [id number] REDUCTASE INHIBIT*08/23/2023 17 - Myalgia Comments: Weakess, falls CLEARASIL MAXIMUM STRENGTH 09/16/2018 7 - Swelling Date Reviewed: 11/21/2023 Reviewed by: Rosetta Zamorano LPN - Fully Assessed Reason for Visit: Orders [681] Primary Visit Diagnosis:Thrombocytope yajaira, unspecified (HCC) [D69.6] Other Visit Diagnosis:Essential hypertension [I10] Order(s):COMPLETE BLOOD COUNT [SQCBC] Order #: [id number] FUTURE BASIC METABOLIC PANEL [SQBMP] Order #: [id number] FUTURE Prescriptions as of 02/13/2024 - oxybutynin ER (DITROPAN XL) 10 mg 24 hr tablet Take 1 tablet by mouth every evening. - lisinopril (ZESTRIL) 40 mg tablet Take 1 tablet by mouth once daily. - finasteride (PROSCAR) 5 mg tablet Take 1 tablet by mouth once daily. - doxazosin (CARDURA) 1 mg tablet Take 1 tablet by mouth once daily. - melatonin 3 mg tablet Take 1 tablet by mouth daily at bedtime. - aspirin, enteric coated (ASPIRIN, ENTERIC COATED) 81 mg EC tablet Take 1 tablet by mouth once daily. - MULTIVITAMIN TAB Take one(1) tablet daily. Problem List As Of Date 02/13/2024 Noted Resolved Diverticulosis of large intestine [K57.30] Hyperlipidemia [E78.5] 08/28/2005 Essential hypertension [I10] 02/22/2006 Unspecified disorder of prostate [N42.9] 02/14/2007 07/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 [R79.89] 02/14/2007 07/12/2016 Dizziness and giddiness [R42] 08/22/2007 07/12/2016 Benign prostatic hyperplasia with urinary obstr*07/05/2010 Chronic nonallergic rhinitis [J31.0] 07/12/2016 Thrombocytopenia, unspecified (HCC) [D69.6] 2017 Erectile dysfunction [N52.9] 01/16/2018 Obesity, Class II, BMI 35-39.9 [E66.9] 07/28/2020 Urgency of urination [R39.15] 07/28/2020 Subdural hematoma (HCC) [S06.5XAA] 06/21/2023 Fall [W19.XXXA] 06/22/2023 Closed fracture of left ankle [S82.892A] 06/23/2023 SAH (subarachnoid hemorrhage) (HCC) [I60.9] 07/16/2023 History of TIA (transient ischemic attack) [Z86*08/23/2023 Gait abnormality [R26.9] 08/23/2023 Encounter Status:Closed by BRENDA LINARES on 02/13/24 Normal [facility] PT D/C Summary (1)on 024 PT D/C Summary (1) [facility] [address] [place] [address] [address] [place] [address] / REHABILITATION SERVICES DISCHARGE SUMMARY MR#: [id number] Acct: [id number] Name: DENIZ KUMAR Rep #: [id number] : 1935 88 From: Kendall Cotton DPT, OCS, CSCS Referring Dr.: Dr. Vadim Deras MD Status: REG RCR Insurance: [facility] SELF PAY INSURANCE Discharge Summary D/C summary: It has been my pleasure to treat DENIZ KUMAR referred by Dr. Vadim Deras MD, with the diagnosis of gait abnormality and leg weakness for a total of 9 visit(s). Discharge Date: 12/18/23 Please see the following information for a summary of their discharge status. Subjective Subjective: Been doing exercises 3x/week. going the right direction but slowly. Legs feel stronger. Still challenging to get from low chair but notices it is easier at times. Not working and started that way due to mobility, doing better with walking though and not going to go back. Pain LBP: Pain Intensity (Out of 10): 0 Overall Improvement % Improvement: 75 Objective Objective/Function: Walks fast well with VC but lacking confidence in FW weight shift. Exits chair without UE today but reverts to lacking FW weight shift on 30 SSTS test, still improving. Goals Goal 1:: I appropriate HEP adn gym for balance and strength Goal Progress: Goal Met Goal 2:: 11 on 30 sec sit to stand and <10 TUG without LOB Goal Progress: Progressing Goal 3:: FGA 25/20 to diminish fall risk Goal Progress: Progressing Goal 4:: Pt feel mobility and strengh 50% safer Goal Progress: Goal Met Goal 5:: Exit low chair without difficulty Goal Progress: Goal Met, no UE. Plan Plan: d/c to HEP D/C Information Discharge Comments: To neurologist tomorrow. d/c sentence: If there are questions or concerns regarding this patient's physical therapy, please feel free to call me at [phone]. Thank you for the referral of this patient. Sincerely, Kendall Cotton, DPT, OCS, CSCS Balance/Gait/Functional tests Balance/Special Test Scores Functional Gait Assessment Score: 24 % Disability: 20.0000 Lower Extremity Functional Score: 50 TUG Test Time Seconds: 14 Tug Test: <20 sec.=mostly independent 30 Second Chair Rise Test Seconds: 10 Improvement % Improvement: 75 12/18/23 1026 CC: Dr. Vadim Deras MD EB Signed [facility] Office Visit (INTMWS ) DENIZ KUMAR ([id number]) 1935 M Date Time Provider Department 11/21/23 10:00 AM VADIM DERAS INTMWS During your visit today, we recorded the following information about you: Temperature Pulse Blood pressure Weight 98.4 degrees 60/minute 149/87 100.2 kg Vadim Deras MD 11/21/2023 1:00 PM Signed This note was created using Nautitriter. Subjective Deniz Kumar is a 88 year old male. His gait was slowly improving. He was doing home exercise program, and scheduled to see neurology. His hypertension was staying elevated. His main complaint was insomnia from nocturia and urgency. He had no significant urine flow restriction based on urology evaluation last year. Review of Systems Constitutional: Negative for fatigue and unexpected weight change. Respiratory: Negative for shortness of breath. Cardiovascular: Positive for leg swelling. Negative for chest pain and palpitations. Musculoskeletal: Positive for gait problem. Neurological: Positive for tremors and weakness. ACTIVE PROBLEM LIST Diverticulosis of Large Intestine Hyperlipidemia Essential Hypertension Benign Prostatic Hyperplasia With Urinary Obstruction Chronic Nonallergic Rhinitis Thrombocytopenia, Unspecified (Hcc) Erectile Dysfunction Obesity, Class II, Bmi 35-39.9 Urgency of Urination Subdural Hematoma (Hcc) Fall Closed Fracture of Left Ankle Sah (Subarachnoid Hemorrhage) ([facility]) History of Tia (Transient Ischemic Attack) Gait Abnormality Current Outpatient Medications Medication Sig lisinopril (ZESTRIL) 20 mg tablet Take 1 tablet by mouth once daily. finasteride (PROSCAR) 5 mg tablet Take 1 tablet by mouth once daily. doxazosin (CARDURA) 1 mg tablet Take 1 tablet by mouth once daily. melatonin 3 mg tablet Take 1 tablet by mouth daily at bedtime. aspirin, enteric coated (ASPIRIN, ENTERIC COATED) 81 mg EC tablet Take 1 tablet by mouth once daily. MULTIVITAMIN TAB Take one(1) tablet daily. No current facility-administered medications for this visit. Objective BP 149/87 (BP Site: Left Arm, BP Position: Sitting, BP Cuff Size: Large Adult) Pulse 60 Temp 36.9 ?C (98.4 ?F) (Temporal) Wt 100.2 kg (221 lb) BMI 29.97 kg/m? Physical Exam Constitutional: General: He is not in acute distress. Cardiovascular: Rate and Rhythm: Normal rate and regular rhythm. Heart sounds: No murmur heard. No gallop. Pulmonary: Effort: No respiratory distress. Breath sounds: No wheezing or rales. Musculoskeletal: Right lower leg: No edema. Left lower leg: No edema. Neurological: General: No focal deficit present. Mental Status: He is alert. Gait: Gait normal. Latest Ref Rng 11/14/2023 Protein, Total 6.3 - 8.0 g/dL 6.3 Albumin 3.9 - 4.9 g/dL 4.0 Calcium 8.5 - 10.2 mg/dL 9.5 Bilirubin, Total 0.2 - 1.3 mg/dL 0.6 Alkaline Phosphatase 38 - 113 U/L 70 AST 14 - 40 U/L 16 ALT 10 - 54 U/L 13 Glucose 74 - 99 mg/dL 86 BUN 9 - 24 mg/dL 30 (H) Creatinine 0.73 - 1.22 mg/dL 0.83 Sodium 136 - 144 mmol/L 141 Potassium 3.7 - 5.1 mmol/L 4.1 Chloride 97 - 105 mmol/L 106 (H) CO2 22 - 30 mmol/L 32 (H) Anion Gap 9 - 18 mmol/L 3 (L) eGFR >=60 mL/min/1.73m? 85 Cholesterol, Total <200 mg/dL 169 Triglyceride <150 mg/dL 119 HDL Cholesterol >39 mg/dL 50 Non HDL Cholesterol <130 mg/dL 119 Fasting Time hrs 13 VLDL Cholesterol <30 mg/dL 24 TC:HDL Ratio <5.10 3.38 LDL Cholesterol <100 mg/dL 95 LDL:HDL Ratio <2.54 1.90 Legend: (H) High (L) Low Assessment and Plan 1. Leg weakness, bilateral - ICD9: 729.89, ICD10: R29.898 (primary diagnosis) Improving. 2. Gait abnormality - ICD9: 781.2, ICD10: R26.9 Improving. To see neurology. 3. Hyperlipidemia, unspecified hyperlipidemia type - ICD9: 272.4, ICD10: E78.5 - Controlled - Counseled on healthy diet and regular exercise - We agreed he should stay off statins at this point due to concern for muscle weakness. - Zetia was discussed. Discussed medication dosage, usage, goals of therapy, and side effects. He declined to start his also. 4. Essential hypertension - ICD9: 401.9, ICD10: I10 - Worsening control - Continue current medications - Increase lisinopril - LISINOPRIL 40 MG TABLET 5. Urgency of urination - ICD9: 788.63, ICD10: R39.15 - Shared Medical Decision Making was done: Medication: oxybutynin. Benefits: Medication may help nocturia. Risks: Possible side effects were discussed including constipation, dry mouth. Trial 30 tablets. Call for refill if effective. - OXYBUTYNIN CHLORIDE ER 10 MG TABLET,EXTENDED RELEASE 24 HR 6. Benign prostatic hyperplasia with urinary obstruction - ICD9: 600.01, 599.69, ICD10: N40.1, N13.8 See above. - OXYBUTYNIN CHLORIDE ER 10 MG TABLET,EXTENDED RELEASE 24 HR Vadim Deras MD Allergies As of Date: 11/21/2023 Noted Allergy Reaction [id number]-CHA-BLS REDUCTASE (more content not included)... Normal [facility] Comprehensive metabolic 2000 panelon 11-14-2023 Albumin [Mass/Vol] 4.0 g/dL Normal 3.9-4.9 [facility] Comment on above: Order Comment: Speci men Type: BLOOD SPECIMENOrdering Facility: [facility] Address: [address] [place] [address] Performed By: #### 2 4323-8 ####[facility] [id number] [place] [address] [place] ALP [Catalytic activity/Vol] 70 U/L Normal 38-113 [facility] Comment on above: Order Comment: Speci men Type: BLOOD SPECIMENOrdering Facility: [facility] Address: [address] [place] [address] Performed By: #### 2 4323-8 ####[facility] [id number] [place] [address] [place] ALT [Catalytic activity/Vol] 13 U/L Normal 10-54 [facility] Comment on above: Order Comment: Speci men Type: BLOOD SPECIMENOrdering Facility: [facility] Address: [address] [place] [address] Performed By: #### 2 4323-8 ####[facility] [id number] [place] [address] [place] Anion gap [Moles/Vol] 3 mmol/L Low 9-18 [facility] Comment on above: Order Comment: Speci men Type: BLOOD SPECIMENOrdering Facility: [facility] Address: [address] [place] [address] Performed By: #### 2 4323-8 ####[facility] MICHELLE MILLTOWNCLIA [id number] [place] [address] [place] AST [Catalytic activity/Vol] 16 U/L Normal 14-40 [facility] Comment on above: Order Comment: Speci men Type: BLOOD SPECIMENOrdering Facility: [facility] Address: [address] [place] [address] Performed By: #### 2 4323-8 ####[facility] MILLTOWNCLIA [id number] [place] [address] [place] Bilirubin [Mass/Vol] 0.6 mg/dL Normal 0.2-1.3 [facility] Comment on above: Order Comment: Speci men Type: BLOOD SPECIMENOrdering Facility: [facility] Address: [address] [place] [address] Performed By: #### 2 4323-8 ####[facility]OSPITALWNCLIA [id number] [place] [address] [place] Calcium [Mass/Vol] 9.5 mg/dL Normal 8.5-10.2 [facility] Comment on above: Order Comment: Speci men Type: BLOOD SPECIMENOrdering Facility: [facility] Address: [address] [place] [address] Performed By: #### 2 4323-8 ####[facility] MILLWNCLIA [id number] [place] [address] [place] Chloride [Moles/Vol] 106 mmol/L High 97-105 [facility] Comment on above: Order Comment: Speci men Type: BLOOD SPECIMENOrdering Facility: [facility] Address: [address] [place] [address] Performed By: #### 2 4323-8 ####[facility] MILLTOWNCLIA [id number] [place] [address] [place] CO2 [Moles/Vol] 32 mmol/L High 22-30 [facility] Comment on above: Order Comment: Speci men Type: BLOOD SPECIMENOrdering Facility: [facility] Address: [address] [place] [address] Performed By: #### 2 4323-8 ####[facility] [id number] [place] [address] [place] Creatinine [Mass/Vol] 0.83 mg/dL Normal 0.73-1.22 [facility] Comment on above: Order Comment: Speci men Type: BLOOD SPECIMENOrdering Facility: [facility] Address: [address] [place] [address] Performed By: #### 2 4323-8 ####[facility] [id number] [place] [address] [place] Creatinine and Glomerular filtration rate.predicted panel (S/P/Bld) 85 mL/min/1.73m??? Normal >=60 [facility] Comment on above: Order Comment: Speci men Type: BLOOD SPECIMENOrdering Facility: [facility] Address: [address] [place] [address] Result Comment: Franny mated Glomerular Filtration Rate (eGFR) is calculated using the 2020 CKD-EPI creatinine equation. This equation utilizes serum creatinine, sex, and age as parameters. The creatinine assay has traceable calibration to isotope dilution-mass spectrometry. Refer to KDIGO guidelines for clinical interpretation. In patients with unstable renal function, e.g. those with acute kidney injury, the eGFR may not accurately reflect actual GFR. Performed By: #### 2 4323-8 ####[facility] [id number] [place] [address] [place] Glucose [Mass/Vol] 86 mg/dL Normal 74-99 [facility] Comment on above: Order Comment: Speci men Type: BLOOD SPECIMENOrdering Facility: [facility] Address: [address], [place] [address] Result Comment: The [place] Diabetes Association (ADA) provides guidance for cutoff values for fasting glucose and random glucose. The ADA defines fasting as no caloric intake for at least 8 hours. Fasting plasma glucose results between 100 to 125 mg/dL indicate increased risk for diabetes (prediabetes). Fasting plasma glucose results greater than or equal to 126 mg/dL meet the criteria for diagnosis of diabetes. In the absence of unequivocal hyperglycemia, results should be confirmed by repeat testing. In a patient with classic symptoms of hyperglycemia or hyperglycemic crisis, random plasma glucose results greater than or equal to 200 mg/dL meet the criteria for diagnosis of diabetes. Reference: Standards of Medical Care in Diabetes 2016, [place] [employer]. Diabetes Care. 2016.39(Suppl 1). Performed By: #### 2 4323-8 ####[facility] [id number] [place] [address] [place] Potassium [Moles/Vol] 4.1 mmol/L Normal 3.7-5.1 [facility] Comment on above: Order Comment: Speci men Type: BLOOD SPECIMENOrdering Facility: [facility] Address: [address] [place] [address] Performed By: #### 2 4323-8 ####[facility] [id number] [place] [address] [place] Protein [Mass/Vol] 6.3 g/dL Normal 6.3-8.0 [facility] Comment on above: Order Comment: Speci men Type: BLOOD SPECIMENOrdering Facility: [facility] Address: [address] [place], [place] [address] Performed By: #### 2 4323-8 ####[facility] [id number] [place] [address] [place] Sodium [Moles/Vol] 141 mmol/L Normal 136-144 [facility] Comment on above: Order Comment: Speci men Type: BLOOD SPECIMENOrdering Facility: [facility] Address: [address] [place] [address] Performed By: #### 2 4323-8 ####[facility] MILLWNCLIA [id number] [place] [address] [place] Urea nitrogen [Mass/Vol] 30 mg/dL High 9-24 [facility] Comment on above: Order Comment: Speci men Type: BLOOD SPECIMENOrdering Facility: [facility] Address: [address] [place] [address] Performed By: #### 2 4323-8 ####[facility]ERNCLI [id number] [place] [address] [place] Lipid 1996 panelon 4 Cholesterol [Mass/Vol] 169 mg/dL Normal <200 [facility] Comment on above: Order Comment: Speci men Type: BLOOD SPECIMENOrdering Facility: [facility] Address: [address] [place] [address] Result Comment: <200 mg/dL, Desirable 200-239 mg/dL, Borderline high >239 mg/dL, High Performed By: #### 2 4331-1 ####[facility] LABCLIA [id number] [id number] [place] [address] [place] Cholesterol in HDL [Mass/Vol] 50 mg/dL Normal >39 [facility] Comment on above: Order Comment: Speci men Type: BLOOD SPECIMENOrdering Facility: CITY [facility] Address: [address] [place], [place] [id number] Result Comment: 40-5 9 mg/dL, Acceptable >59 mg/dL, High: Negative risk factor for coronary heart disease <40 mg/dL, Low: Positive risk factor for coronary heart disease Performed By: #### 2 4331-1 ####[facility] LABCLIA [id number] [place] [id number] [facility] [id number] [place] [address] [place] Cholesterol in LDL [Mass/Vol] 95 mg/dL Normal <100 [facility] Comment on above: Order Comment: Manuel men Type: BLOOD SPECIMENOrdering Facility: [facility] Address: [address] [place] [address] Result Comment: <100 mg/dL, Optimal 100-129 mg/dL, Near optimal/above optimal 130-159 mg/dL, Borderline high 160-189 mg/dL, High >189 mg/dL, Very high Secondary prevention optimal LDL Cholesterol levels are recommended to be < 70 mg/dL Performed By: #### 2 4331-1 ####[facility] LABCLIA [id number] [address] [id number] [place] [address] [place] Cholesterol in LDL/Cholesterol in HDL [Mass ratio] 1.90 {ratio} Normal <2.54 [facility] Comment on above: Order Comment: Manuel valentine Type: BLOOD SPECIMENOrdering Facility: [facility] Address: [address] [place] [address] Result Comment: Carmina ansari: 1. National Cholesterol Education Program ATP III Guideline At-A-Glance Quick Desk Reference: National Heart, Lung, and Blood [place]. National Institutes of Health. 2001: NIH Publication No. 01-3305. 2. An International Atherosclerosis Society position paper: global recommendations for the management of dyslipidemia: executive summary, Atherosclerosis. 2014: 232(2):410-413. Performed By: #### 2 4331-1 ####[facility]CLIA [id number] [address] [id number] [place] [address] [place] Cholesterol in VLDL [Mass/Vol] 24 mg/dL Normal <30 [facility] Comment on above: Order Comment: Mynori men Type: BLOOD SPECIMENOrdering Facility: [facility] Address: [address] [place] [address] Performed By: #### 2 4331-1 ####[facility]CLIA [id number] [address] [id number] [place] [address] [place] Cholesterol non HDL [Mass/Vol] 119 mg/dL Normal <130 [facility] Comment on above: Order Comment: Speci men Type: BLOOD SPECIMENOrdering Facility: [facility] Address: [address] [place] [address] Result Comment: <130 mg/dL, Optimal 130-159 mg/dL, Near optimal/above optimal 160-189 mg/dL, Borderline high 190-219 mg/dL, High >219 mg/dL, Very high Secondary prevention optimal non HDL Cholesterol levels are recommended to be <100 mg/dL Performed By: #### 2 4331-1 ####[facility]CLIA [id number] [address] [id number] [place] [address] [place] Cholesterol.total/Miracle sterol in HDL [Mass ratio] 3.38 {ratio} Normal <5.10 [facility] Comment on above: Order Comment: Speci men Type: BLOOD SPECIMENOrdering Facility: [facility] Address: [address] [place] [address] Performed By: #### 2 4331-1 ####[facility]CLIA [id number] [address] [id number] [place] [address] [place] FASTING TIME 13 hrs Normal [facility] Comment on above: Order Comment: Speci men Type: BLOOD SPECIMENOrdering Facility: [facility] Address: [address] [place] [id number] Performed By: #### 2 4331-1 ####[facility]CLIA [id number] [address] [id number] [place] [address] [place] Triglyceride [Mass/Vol] 119 mg/dL Normal <150 [facility] Comment on above: Order Comment: Speci men Type: BLOOD SPECIMENOrdering Facility: [facility] Address: [address] [place] [address] Result Comment: <150 mg/dL, Normal 150-199 mg/dL, Borderline high 200-499 mg/dL, High >499 mg/dL, Very high Performed By: #### 2 4331-1 ####[facility] LABCLIA [id number] [place] [id number] [facility] [id number] [address] [facility] CNPNon 08-15-2023 CNPN Telephone (AGPOB1) DENIZ KUMAR ([id number]) 1935 M Date Time Provider Department 08/15/23 BONIFACIO VALDEZ AGANGELLA During your visit today, we recorded the following information about you: Chloe Joyner 08/15/2023 3:19 PM Signed I called Ann-Marie @ [facility] back and gave her the verbal ok per Dr. Valdez to continue home PT. There was no answer. But I left the order on her secure VM. Chloe Joyner August 15, 2023 3:19 PM Allergies As of Date: 08/15/2023 Noted Allergy Reaction CLEARASIL MAXIMUM STRENGTH 09/16/2018 7 - Swelling Date Reviewed: 08/06/2023 Reviewed by: Bonifacio Valdez MD - Fully Assessed Reason for Visit: Orders [681] Prescriptions as of 08/15/2023 - atorvastatin (LIPITOR) 20 mg tablet - chlorthalidone (HYGROTON) 25 mg tablet - cloNIDine HCl (CATAPRES) 0.1 mg tablet - losartan (COZAAR) 100 mg tablet - Mirtazapine (REMERON) 7.5 mg tablet - potassium chloride (K-TAB) 10 mEq tablet - Sennosides 8.6 mg cap AT BEDTIME - acetaminophen (TYLENOL) 500 mg tablet 2 tablets by ORAL/FEEDING TUBE route every 6 hours. - calcium-cholecalciferol , D3, (OSCAL+D 250) 250 mg-3.125 mcg (125 unit) per tablet Take 2 tablets by mouth two times a day. - doxazosin (CARDURA) 1 mg tablet Take 1 tablet by mouth once daily. - finasteride (PROSCAR) 5 mg tablet Take 1 tablet by mouth once daily. - Lactobacillus acidophilus (PROBIOTIC) 10 billion cell cap Take 1 capsule by mouth. - Melatonin 5 mg cap Take 5 mg by mouth daily at bedtime. - MULTIVITAMIN TAB Take one(1) tablet daily. Problem List As Of Date 08/15/2023 Noted Resolved Diverticulosis of large intestine [K57.30] Hyperlipidemia [E78.5] 08/28/2005 Essential hypertension [I10] 02/22/2006 Unspecified disorder of prostate [N42.9] 02/14/2007 07/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 [R79.89] 02/14/2007 07/12/2016 Dizziness and giddiness [R42] 08/22/2007 07/12/2016 Benign prostatic hyperplasia with urinary obstr*07/05/2010 Chronic nonallergic rhinitis [J31.0] 07/12/2016 Thrombocytopenia, unspecified (HCC) [D69.6] 2017 Erectile dysfunction [N52.9] 01/16/2018 Obesity, Class II, BMI 35-39.9 [E66.9] 07/28/2020 Urgency of urination [R39.15] 07/28/2020 Subdural hematoma (HCC) [S06.5XAA] 06/21/2023 Fall [W19.XXXA] 06/22/2023 Closed fracture of left ankle [S82.892A] 06/23/2023 SAH (subarachnoid hemorrhage) ([facility]) [I60.9] 07/16/2023 Encounter Status:Closed by CHLOE JOYNER on 08/15/23 Normal [facility] CNOVon 08-06-2023 CNOV Office Visit (AGPOB1 ) DENIZ KUMAR ([id number]) 1935 M Date Time Provider Department 08/06/23 1:15 PM BONIFACIO VALDEZ AGPOB1 During your visit today, we recorded the following information about you: Respiration Weight Height 20/minute 90.7 kg 1.829 m Bonifacio Valdez MD 08/06/2023 1:22 PM Signed Subjective: Patient returns today follow-up in his left ankle surgery. Surgical fixation on 06/23/2023. Overall doing well. Has been walking in his boot. Minimal discomfort. Objective: Examination left lower extremity shows it to be neuro vas tact. Incision healing well. Imaging: Please refer to the radiographic interpretation Assessment: #1 left bimalleolar ankle fracture. Plan: Marco is doing well. We will discontinue his walker boot. Okay to ambulate in regular shoewear. Okay for shower. Orders for physical therapy were written for his facility. He can be weight-bear as tolerated with range of motion and strengthening exercises. I normally would like to see them back in 2 months. After our discussion, they would like to see me back on an as-needed basis. If there is any questions or concerns in the future, I told him to contact the office. Questions answered. Allergies As of Date: 08/06/2023 Noted Allergy Reaction CLEARASIL MAXIMUM STRENGTH 09/16/2018 7 - Swelling Date Reviewed: 08/06/2023 Reviewed by: Bonifacio Valdez MD - Fully Assessed Reason for Visit: Established Patient [175] Follow Up [171] Primary Visit Diagnosis:Closed bimalleolar fracture of left ankle with routine healing, subsequent encounter [K37.596O] Order(s):XR ANKLE GENERAL 3V AP/LAT/OBL LEFT [2208595] Order #: [id number] Prescriptions as of 08/06/2023 - atorvastatin (LIPITOR) 20 mg tablet - chlorthalidone (HYGROTON) 25 mg tablet - cloNIDine HCl (CATAPRES) 0.1 mg tablet - losartan (COZAAR) 100 mg tablet - Mirtazapine (REMERON) 7.5 mg tablet - potassium chloride (K-TAB) 10 mEq tablet - Sennosides 8.6 mg cap AT BEDTIME - acetaminophen (TYLENOL) 500 mg tablet 2 tablets by ORAL/FEEDING TUBE route every 6 hours. - calcium-cholecalciferol , D3, (OSCAL+D 250) 250 mg-3.125 mcg (125 unit) per tablet Take 2 tablets by mouth two times a day. - doxazosin (CARDURA) 1 mg tablet Take 1 tablet by mouth once daily. - finasteride (PROSCAR) 5 mg tablet Take 1 tablet by mouth once daily. - Lactobacillus acidophilus (PROBIOTIC) 10 billion cell cap Take 1 capsule by mouth. - Melatonin 5 mg cap Take 5 mg by mouth daily at bedtime. - MULTIVITAMIN TAB Take one(1) tablet daily. Problem List As Of Date 08/06/2023 Noted Resolved Diverticulosis of large intestine [K57.30] Hyperlipidemia [E78.5] 08/28/2005 Essential hypertension [I10] 02/22/2006 Unspecified disorder of prostate [N42.9] 02/14/2007 07/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 [R79.89] 02/14/2007 07/12/2016 Dizziness and giddiness [R42] 08/22/2007 07/12/2016 Benign prostatic hyperplasia with urinary obstr*07/05/2010 Chronic nonallergic rhinitis [J31.0] 07/12/2016 Thrombocytopenia, unspecified (HCC) [D69.6] 2017 Erectile dysfunction [N52.9] 01/16/2018 Obesity, Class II, BMI 35-39.9 [E66.9] 07/28/2020 Urgency of urination [R39.15] 07/28/2020 Subdural hematoma (HCC) [S06.5XAA] 06/21/2023 Fall [W19.XXXA] 06/22/2023 Closed fracture of left ankle [S82.892A] 06/23/2023 SAH (subarachnoid hemorrhage) (HCC) [I60.9] 07/16/2023 Disposition: Return if symptoms worsen or fail to improve. Follow-up and Disposition History for Encounter Date Provider Department Center 08/06/2023 [id number] VALDEZ AGPOB1 AG POB Encounter Status:Closed by BONIFACIO VALDEZ on 08/06/23 [facility] CNOVon 08-02-2023 CNOV Office Visit (NEAGCL M) DENIZ KUMAR ([id number]) 1935 M Date Time Provider Department 08/02/23 1:30 PM NICOLÁS JUNIOR NEAGCLM During your visit today, we recorded the following information about you: Pulse Respiration Blood pressure Weight 101/minute 17/minute 104/67 96.2 kg Height 1.829 m Nicolás Junior MD 08/02/2023 2:04 PM Signed NEUROSURGERY FOLLOW UP OFFICE NOTE Dr. Nicolás Junior MD, [facility] Date of visit: August Patient Name: Mr.Peter Jericho Kumar Date of : 1935 Current Age: [age] year old Sex: male MRN/E# [id number] Last Office Visit: 07/16/2023 CHIEF COMPLAINT: Patient presents with: Established Patient SUBJECTIVE: The patient presents as a follow-up with imaging (CT B) for evaluation. This is an 88-year-old male with a PMHx TIA, HTN, hypercholesterolemia, thrombocytopenia who was seen for consult at [facility] on 06/21/2023 after a fall while hiking [...] follow-up in [address] head. He was seen in the office on 07/16/2023 and reported that he was doing well. He stated that he was a resident in rehab in [place] and hoped to be discharged to a residential that week. He denied headache, visual changes, speech deficits, seizure activity, motor or sensory deficits. Neurologically he was intact on exam with the exception of gait instability. CT was reviewed and showed near complete resolution of the interhemispheric and tentorial subdural hematoma with slight fullness on the left side of the falx which appears to be residual blood. He was cleared to resume his low-dose aspirin and advised to follow-up in 2 weeks with a repeat CT head prompting his visit today. Since last visit he states he is doing the same. He denies any headaches but feels his speech retrieval is off and his balance. He is working with PT/OT and ST. He presents for image review, evaluation and plan of care. SYMPTOMS: speech deficit and balance PREVIOUS CONSERVATIVE TREATMENTS: Rehab -PT/OT SURGICAL RISK: Smoker: Former Diabetic: No Anticoagulants [...] Current Outpatient Medications Medication Sig Dispense Refill atorvastatin (LIPITOR) 20 mg tablet chlorthalidone (HYGROTON) 25 mg tablet cloNIDine HCl (CATAPRES) 0.1 mg tablet losartan (COZAAR) 100 mg tablet Mirtazapine (REMERON) 7.5 mg tablet potassium chloride (K-TAB) 10 mEq tablet Sennosides 8.6 mg cap AT BEDTIME acetaminophen (TYLENOL) 500 mg tablet 2 tablets by ORAL/FEEDING TUBE route every 6 hours. calcium-cholecalciferol , D3, (OSCAL+D 250) 250 mg-3.125 mcg (125 unit) per tablet Take 2 tablets by mouth two times a day. doxazosin (CARDURA) 1 mg tablet Take 1 tablet by mouth once daily. 90 tablet 3 finasteride (PROSCAR) 5 mg tablet Take 1 tablet by mouth once daily. 90 tablet 3 Lactobacillus acidophilus (PROBIOTIC) 10 billion cell cap Take 1 capsule by mouth. Melatonin 5 mg cap Take 5 mg by mouth daily at bedtime. MULTIVITAMIN TAB Take one(1) tablet da (more content not included)... Normal [facility] CT BRAIN WO IVCONon 08-02-[address] BRAIN WO IVCON * * *Final Report* * * DATE OF EXAM: Aug 02 2023 1:02PM A1C 0504 - CT BRAIN WO IVCON / PROCEDURE REASON: SAH (subarachnoid hemorrhage) (HCC) * * * * Physician Interpretation * * * * EXAMINATION: CT BRAIN WO IVCON CLINICAL HISTORY: Follow-up subdural hematoma TECHNIQUE: Serial axial images without IV contrast were obtained from the vertex to the foramen magnum. MQ: [id number] CT Radiation dose: Integrated Dose-Length Product (DLP) for this visit = 794.52 mGy*cm CT Dose Reduction Employed: No dose reduction techniques were required COMPARISON: CT performed 07/16/2023 RESULT: Post-operative change: None. Acute change: No evidence of an acute infarct or other acute parenchymal process. Hemorrhage: No evidence of new hemorrhage. ECASS hemorrhagic transformation score: Not Applicable Mass Lesion / Mass Effect: There is no evidence of an intracranial mass or extraaxial fluid collection. No significant mass effect. Chronic change: Patchy foci of low attenuation coefficient are present within the supratentorial white matter which is a nonspecific finding but likely represents moderate microvascular ischemia. Parenchyma: There is moderate generalized volume loss. The brain parenchyma is otherwise within normal limits for age. Ventricles: Ventricular enlargement concordant with the degree of parenchymal volume loss. Paranasal sinuses and skull base: The visualized paranasal sinuses are grossly clear. The skull base and imaged soft tissues are unremarkable. Body And Frame Technician (topogram) images: No additional findings. IMPRESSION: No evidence of new intracranial hemorrhage. Stable CT. Marketing Database Analyst: KATIA Transcribe Date/Time: Aug 02 2023 3:45P Dictated by : LINDA LOMBARDO MD This examination was interpreted and the report reviewed and electronically signed by: LINDA LOMBARDO MD on Aug 02 2023 3:50PM EST [id number] Normal [facility] Basophil percentageOrdered B y: Nihsi Romero on 07-29-2023 Chloride [Moles/Vol] 106 mmol/L 98-107 [facility] Glucose [Mass/Vol] 90 mg/dL 74-106 [facility] Hemoglobin (Bld) [Mass/Vol] 15.0 g/dL 13.0-16.5 [facility] Potassium [Moles/Vol] 3.1 mmol/L 3.5-5.1 [facility] Sodium [Moles/Vol] 140 mmol/L 136-145 [facility] WBC (Bld) [#/Vol] 5.3 10*3/uL 4.4-11.0 [facility] Determination of erythrocyte mean corpuscular volume (MCV)Ordered By: Nishi Romero on 07-29-2023 MCV (RBC) [Entitic vol] 90.4 fL 80-94 [facility] Erythrocyte distribution wid th ratioOrdered By: Nishi Romero on 07-29-2023 Erythrocyte distribution width (RBC) [Ratio] 12.7 % 11.6-14.6 [facility] Erythrocyte distribution wid th standard deviationOrdered By: Nishi Romero on 07-29-2023 Erythrocyte distribution width (RBC) [Entitic vol] 42.5 fL 35.1-43.9 [facility] Hematocrit Auto (Bld) [Volum e fraction]Ordered By: Nishi Romero on 07-29-2023 Hematocrit (Bld) [Volume fraction] 46.0 % 40-54 [facility] - Chemistry and C hemistry - challengeOrdered By: Nishi Romero on 07-29-2023 CO2 [Moles/Vol] 29.0 mmol/L 21.0-32.0 [facility] Urea nitrogen/Creatinine [Mass ratio] 29.2 mg/mg 10-20 [facility] - Hematology and Cell countsOrdered By: Nishi Romero on 07-29-2023 MCH (RBC) [Entitic mass] 29.5 pg 27.0-32.0 [facility] MCHC (RBC) [Mass/Vol] 32.6 g/dL 32-36 [facility] Platelets (Bld) [#/Vol] 151 10*3/uL 150-450 [facility] No Panel InformationOrdered By: Nishi Romero on 07-29-2023 Estimated GFR (MDRD) Amer 85 mL/min >60 [facility] Comment on above: GFR Calc Estimated GFR (MDRD) Non-Af Amer 70 mL/min >60 [facility] Comment on above: Non- GFR Calc Platelet mean volume Tutu-Ec ker (Bld) [Entitic vol]Ordered By: Nishi Romero on 07-29-2023 Platelet mean volume (Bld) [Entitic vol] 11.3 fL 6.2-12.0 [facility] RBC Auto (Bld) [#/Vol]Ordere d By: Nishi Romero on 07-29-2023 RBC (Bld) [#/Vol] 5.09 10*6/uL 4.6-6.2 [facility] Serum or plasma calcium sharon urement (mass/volume)Ordered By: Nishi Romero on 07-29-2023 Calcium [Mass/Vol] 9.9 mg/dL 8.5-10.1 [facility] Serum or plasma creatinine m easurement (mass/volume)Ordered By: Nishi Romero on 07-29-2023 Creatinine [Mass/Vol] 1.06 mg/dL 0.70-1.30 [facility] Comment on above: The validity of the calculated GFR & GFRAA in patients over 70 years has not been determined. Clinical correlation is essential. Serum or plasma urea nitroge n measurement (mass/volume)Ordered By: Nishi Romero on 07-29-2023 Urea nitrogen [Mass/Vol] 31 mg/dL 7-18 [facility] Thin prep Papanicolaou smear with manual screeningOrdered By: Nishi Romero on 07-29-2023 Thin prep Papanicolaou smear with manual screening 5 5-15 [facility] Basophil percentageOrdered B y: Nishi Romero on 07-22-2023 Chloride [Moles/Vol] 102 mmol/L 98-107 [facility] Glucose [Mass/Vol] 84 mg/dL 74-106 [facility] Hemoglobin (Bld) [Mass/Vol] 15.0 g/dL 13.0-16.5 [facility] Potassium [Moles/Vol] 3.4 mmol/L 3.5-5.1 [facility] Sodium [Moles/Vol] 138 mmol/L 136-145 [facility] WBC (Bld) [#/Vol] 5.4 10*3/uL 4.4-11.0 [facility] Determination of erythrocyte mean corpuscular volume (MCV)Ordered By: Nishi Romero on 07-22-2023 MCV (RBC) [Entitic vol] 90.8 fL 80-94 [facility] Erythrocyte distribution wid th ratioOrdered By: Nishi Romero on 07-22-2023 Erythrocyte distribution width (RBC) [Ratio] 12.8 % 11.6-14.6 [facility] Erythrocyte distribution wid th standard deviationOrdered By: Nishi Romero on 07-22-2023 Erythrocyte distribution width (RBC) [Entitic vol] 42.7 fL 35.1-43.9 [facility] Hematocrit Auto (Bld) [Volum e fraction]Ordered By: Nishi Romero on 07-22-2023 Hematocrit (Bld) [Volume fraction] 45.3 % 40-54 [facility] - Chemistry and C hemistry - challengeOrdered By: Nishi Romero on 07-22-2023 CO2 [Moles/Vol] 26.0 mmol/L 21.0-32.0 [facility] Urea nitrogen/Creatinine [Mass ratio] 33.6 mg/mg 10-20 [facility] - Hematology and Cell countsOrdered By: Nishi Romero on 07-22-2023 MCH (RBC) [Entitic mass] 30.1 pg 27.0-32.0 [facility] MCHC (RBC) [Mass/Vol] 33.1 g/dL 32-36 [facility] Platelets (Bld) [#/Vol] 214 10*3/uL 150-450 [facility] No Panel InformationOrdered By: Nishi Romero on 07-22-2023 Estimated GFR (MDRD) Amer 84 mL/min >60 [facility] Comment on above: GFR Calc Estimated GFR (MDRD) Non-Af Amer 70 mL/min >60 [facility] Comment on above: Non- GFR Calc Platelet mean volume Tutu-Ec ker (Bld) [Entitic vol]Ordered By: Nishi Romero on 07-22-2023 Platelet mean volume (Bld) [Entitic vol] 10.5 fL 6.2-12.0 [facility] RBC Auto (Bld) [#/Vol]Ordere d By: Nishi Romero on 07-22-2023 RBC (Bld) [#/Vol] 4.99 10*6/uL 4.6-6.2 [facility] Serum or plasma calcium sharon urement (mass/volume)Ordered By: Nishi Romero on 07-22-2023 Calcium [Mass/Vol] 10.2 mg/dL 8.5-10.1 [facility] Serum or plasma creatinine m easurement (mass/volume)Ordered By: Nishi Romero on 07-22-2023 Creatinine [Mass/Vol] 1.07 mg/dL 0.70-1.30 [facility] Comment on above: The validity of the calculated GFR & GFRAA in patients over 70 years has not been determined. Clinical correlation is essential. Serum or plasma urea nitroge n measurement (mass/volume)Ordered By: Nishi Romero on 07-22-2023 Urea nitrogen [Mass/Vol] 36 mg/dL 7-18 [facility] Thin prep Papanicolaou smear with manual screeningOrdered By: Nishi Romero on 07-22-2023 Thin prep Papanicolaou smear with manual screening 10 5-15 [facility] Basophil percentageOrdered B y: [facility] on 07-19-2023 Chloride [Moles/Vol] 104 mmol/L 98-107 [facility] Cholesterol [Mass/Vol] 183 mg/dL <[address] [facility] Comment on above: <200 mg/dL Desirable 200-240 mg/dL Borderline >240 mg/dL High Risk Glucose [Mass/Vol] 112 mg/dL 74-106 [facility] Comment on above: Fasting Glucose resu lt from 100 to 125 mg/dL suggests IMPAIRED HOMEOSTASIS per A.D.A. criteria. Hemoglobin (Bld) [Mass/Vol] 15.3 g/dL 13.0-16.5 [facility] Potassium [Moles/Vol] 3.7 mmol/L 3.5-5.1 [facility] Sodium [Moles/Vol] 137 mmol/L 136-145 [facility] Triglyceride [Mass/Vol] 120 mg/dL <199 [facility] Comment on above: The drugs N-Acetylcy steine and Metamizole may falsely depress this assay.Serum Triglycerides Reference Interval Normal <150 mg/dL Borderline high 150 - 199 mg/dL High 200 - 499 mg/dL Very High > or = 500 mg/dL WBC (Bld) [#/Vol] 5.1 10*3/uL 4.4-11.0 [facility] Determination of erythrocyte mean corpuscular volume (MCV)Ordered By: [facility] on 07-19-2023 MCV (RBC) [Entitic vol] 88.5 fL 80-94 [facility] Erythrocyte distribution wid th ratioOrdered By: [facility] on 07-19-2023 Erythrocyte distribution width (RBC) [Ratio] 12.6 % 11.6-14.6 [facility] Erythrocyte distribution wid th standard deviationOrdered By: [facility] on 07-19-2023 Erythrocyte distribution width (RBC) [Entitic vol] 41.4 fL 35.1-43.9 [facility] Hematocrit Auto (Bld) [Volum e fraction]Ordered By: [facility] on 07-19-2023 Hematocrit (Bld) [Volume fraction] 44.7 % 40-54 [facility] - Chemistry and C hemistry - challengeOrdered By: [facility] on 07-19-2023 Cholesterol in HDL (Body fld) [Mass/Vol] 49 mg/dL >40 [facility] Comment on above: The drugs N-Acetylcy steine and Metamizole may falsely depress this assay. Reference Range HDL <40 mg/dL Low HDL Cholesterol HDL >or= 60 mg/dL High HDL Cholesterol Cholesterol in LDL (Body fld) [Moles/Vol] 110 mg/dL 0-130 [facility] Cholesterol in VLDL Calc [Moles/Vol] 24 mg/dL 5-40 [facility] CO2 [Moles/Vol] 25.0 mmol/L 21.0-32.0 [facility] Cobalamin (Vitamin B12) [Mass/Vol] 1382 pg/mL 211-911 [facility] Magnesium [Mass/Vol] 2.2 mg/dL 1.6-2.6 [facility] Urea nitrogen/Creatinine [Mass ratio] 22.2 mg/mg 10-20 [facility] - Hematology and Cell countsOrdered By: [facility] on 07-19-2023 MCH (RBC) [Entitic mass] 30.3 pg 27.0-32.0 [facility] MCHC (RBC) [Mass/Vol] 34.2 g/dL 32-36 [facility] Platelets (Bld) [#/Vol] 271 10*3/uL 150-450 [facility] No Panel InformationOrdered By: [facility] on 07-19-2023 Estimated GFR (MDRD) Amer 103 mL/min >60 [facility] Comment on above: GFR Calc Estimated GFR (MDRD) Non-Af Amer 85 mL/min >60 [facility] Comment on above: Non- GFR Calc Vitamin D 25-Hydroxy 53.8 ng/mL [facility] Comment on above: Vitamin D 25(OH) Sta tus Range Deficiency <20 ng/mL (50nmol/L) Insufficiency 20 - 30 ng/mL (50 - 75 nmol/L) Sufficiency 30 - 100 ng/mL (75 - 250 nmol/L) Toxicity >100 ng/mL (>250 nmol/L) Platelet mean volume Tutu-Ec ker (Bld) [Entitic vol]Ordered By: [facility] on 07-19-2023 Platelet mean volume (Bld) [Entitic vol] 10.2 fL 6.2-12.0 [facility] RBC Auto (Bld) [#/Vol]Ordere d By: [facility] on 07-19-2023 RBC (Bld) [#/Vol] 5.05 10*6/uL 4.6-6.2 [facility] Serum or plasma calcium sharon urement (mass/volume)Ordered By: [facility] on 07-19-2023 Calcium [Mass/Vol] 10.0 mg/dL 8.5-10.1 [facility] Serum or plasma creatinine m easurement (mass/volume)Ordered By: [facility] on 07-19-2023 Creatinine [Mass/Vol] 0.90 mg/dL 0.70-1.30 [facility] Comment on above: The validity of the calculated GFR & GFRAA in patients over 70 years has not been determined. Clinical correlation is essential. Serum or plasma thyroid stim ulating hormone (TSH) measurement (units/volume)Ordered By: [facility] on 07-19-2023 TSH Qn 1.00 uIU/mL 0.358-3.74 [facility] Serum or plasma urea nitroge n measurement (mass/volume)Ordered By: [facility] on 07-19-2023 Urea nitrogen [Mass/Vol] 20 mg/dL 7-18 [facility] Thin prep Papanicolaou smear with manual screeningOrdered By: [facility] on 07-19-2023 Thin prep Papanicolaou smear with manual screening 8 5-15 [facility] CNOVon 07-16-2023 CNOV Office Visit (NEAGCL M) DENIZ KUMAR ([id number]) 1935 M Date Time Provider Department 07/16/23 11:00 AM NICOL[facility]S JUNIOR NEAGCLM During your visit today, we recorded the following information about you: Pulse Respiration Blood pressure Weight 83/minute 18/minute 125/85 96.2 kg Height 1.829 m Nicolás Junior MD 07/16/2023 11:16 AM Signed NEUROSURGERY FOLLOW UP OFFICE NOTE Dr. Nicolás Junior MD, [facility] Date of visit: July 16, 2023 Patient Name: Mr.Peter Jericho Kumar Date of : 1935 Current Age: [age] year old Sex: male MRN/E# [id number] Last Office Visit: Hospital follow-up CHIEF COMPLAINT: Patient presents with: Established Patient SUBJECTIVE: The patient presents as a hospital follow-up with imaging (CT B) for evaluation. This is an 88-year-old male with a PMHx TIA, HTN, hypercholesterolemia, thrombocytopenia who was seen for consult at [facility] on 06/21/2023 after a fall while hiking [...] well. He is currently in rehab in [place] and hopes to be discharged to a residential this week. He denies headache, visual changes, [...] by ORAL/FEEDING TUBE route every 6 hours. calcium-cholecalciferol , D3, (OSCAL+D 250) 250 mg-3.125 mcg (125 [...] gait problem. Negative for back pain, joint sw (more content not included)... Normal [facility] COVID-19 virus antigen assay Ordered By: Preston Camilo on 07-16-2023 SARS-CoV-2 (COVID-19) Ag IA.rapid Ql (Resp) [facility] CT BRAIN WO IVCONon 07-16-19 CT BRAIN WO IVCON * * *Final Report* * * DATE OF EXAM: Jul 16 2023 10:13AM A1C 0504 - CT BRAIN WO IVCON / PROCEDURE REASON: SDH (subdural hematoma) (HCC) * * * * Physician Interpretation * * * * EXAMINATION: CT BRAIN WO IVCON CLINICAL HISTORY: Follow-up subdural hematoma TECHNIQUE: Serial axial images without IV contrast were obtained from the vertex to the foramen magnum. MQ: [id number] CT Radiation dose: Integrated Dose-Length Product (DLP) for this visit = 794.52 mGy*cm CT Dose Reduction Employed: No dose reduction techniques were required COMPARISON: CT performed 06/23/2023 RESULT: Post-operative change: None. Acute change: No evidence of an acute infarct or other acute parenchymal process. Hemorrhage: Interval resolution of the previously demonstrated posterior left parafalcine and tentorial subdural hemorrhage. No new hemorrhage. ECASS hemorrhagic transformation score: Not Applicable Mass Lesion / Mass Effect: There is no evidence of an intracranial mass or extraaxial fluid collection. No significant mass effect. Chronic change: Patchy foci of low attenuation coefficient are present within the supratentorial white matter which is a nonspecific finding but likely represents moderate microvascular ischemia. Chronic lacunar infarct within the left caudate. Parenchyma: There is moderate generalized volume loss. The brain parenchyma is otherwise within normal limits for age. Ventricles: Ventricular enlargement concordant with the degree of parenchymal volume loss. Paranasal sinuses and skull base: The visualized paranasal sinuses are grossly clear. The skull base and imaged soft tissues are unremarkable. Body And Frame Technician (topogram) images: No additional findings. IMPRESSION: Interval resolution of the previously demonstrated left parafalcine and tentorial subdural hemorrhage. Marketing Database Analyst: PSCB Transcribe Date/Time: Jul 16 2023 2:25P Dictated by : LINDA LOMBARDO MD This examination was interpreted and the report reviewed and electronically signed by: LINDA LOMBARDO MD on Jul 16 2023 2:31PM EST [id number] Normal [facility] Absolute lymphocyte countOrd ered By: Preston Camilo on 07-15-2023 Lymphocytes Auto (Unsp spec) [#/Vol] 1.09 10*3/uL 0.83-4.51 [facility] Basophil percentageOrdered B y: Preston Camilo on 07-15-2023 Basophils/100 WBC (Bld) 0.4 % 0-1 [facility] Chloride [Moles/Vol] 106 mmol/L 98-107 [facility] Eosinophils/100 WBC (Bld) 0.7 % 0-5 [facility] Glucose [Mass/Vol] 96 mg/dL 74-106 [facility] Neutrophils (Bld) [#/Vol] 3.3 10*3/uL 2.0-7.7 [facility] Neutrophils/100 WBC (Bld) 59.8 % 47-70 [facility] Potassium [Moles/Vol] 3.6 mmol/L 3.5-5.1 [facility] Sodium [Moles/Vol] 139 mmol/L 136-145 [facility] WBC (Bld) [#/Vol] 5.5 10*3/uL 4.4-11.0 [facility] Blood erythrocytes count (nu mber/volume)Ordered By: Preston Camilo on 07-15-2023 RBC (Bld) [#/Vol] 4.83 10*6/uL 4.6-6.2 [facility] Blood hemoglobin measurement (mass/volume)Ordered By: Preston Camilo on 07-15-2023 Hemoglobin (Bld) [Mass/Vol] 14.2 g/dL 13.0-16.5 [facility] Blood lymphocytes/100 leukoc ytesOrdered By: Preston Camilo on 07-15-2023 Lymphocytes/100 WBC (Bld) 19.8 % 19-41 [facility] Blood monocytes/100 leukocyt esOrdered By: Preston Camilo on 07-15-2023 Monocytes/100 WBC (Bld) 17.8 % 0-10 [facility] Blood platelet mean volumeOr dered By: Preston Camilo on 07-15-2023 Platelet mean volume (Bld) [Entitic vol] 9.7 fL 6.2-12.0 [facility] Determination of erythrocyte mean corpuscular volume (MCV)Ordered By: Preston Camilo on 07-15-2023 MCV (RBC) [Entitic vol] 89.6 fL 80-94 [facility] Hematocrit Auto (Bld) [Volum e fraction]Ordered By: Preston Camilo on 07-15-2023 Hematocrit (Bld) [Volume fraction] 43.3 % 40-54 [facility] - Chemistry and C hemistry - challengeOrdered By: Preston Camilo 07-15-2023 CO2 [Moles/Vol] 27.0 mmol/L 21.0-32.0 [facility] Urea nitrogen/Creatinine [Mass ratio] 25.7 mg/mg 10-20 [facility] - Hematology and Cell countsOrdered By: Preston Camilo 07-15-2023 Erythrocyte distribution width (RBC) [Entitic vol] 40.9 fL 35.1-43.9 [facility] Erythrocyte distribution width (RBC) [Ratio] 12.3 % 11.6-14.6 [facility] Immature granulocytes/100 WBC (Bld) 1.500 % 0.0-0.9 [facility] Comment on above: IG% - Immature Granu locytes (promyelocytes, myelocytes and metamyelocytes) > 1% indicates that a LEFT SHIFT is Present. MCH (RBC) [Entitic mass] 29.4 pg 27.0-32.0 [facility] Nucleated RBC/100 WBC (Bld) [Ratio] 0 % 0-5 [facility] MCHC Auto (RBC) [Mass/Vol]Or dered By: Preston Camilo on 07-15-2023 MCHC (RBC) [Mass/Vol] 32.8 g/dL 32-36 [facility] No Panel InformationOrdered By: Preston Camilo on 07-15-2023 Estimated Creatinine Clearance Calc 76.85 ml/min [facility] Estimated GFR (MDRD) Amer 115 mL/min >60 [facility] Comment on above: GFR Calc Estimated GFR (MDRD) Non-Af Amer 95 mL/min >60 [facility] Comment on above: Non- GFR Calc Platelets bldOrdered By: Preston Camilo on 07-15-2023 Platelets (Bld) [#/Vol] 263 10*3/uL 150-450 [facility] Serum or plasma calcium sharon urement (mass/volume)Ordered By: Preston Camilo on 07-15-2023 Calcium [Mass/Vol] 9.2 mg/dL 8.5-10.1 [facility] Serum or plasma creatinine m easurement (mass/volume)Ordered By: Preston Camilo on 07-15-2023 Creatinine [Mass/Vol] 0.82 mg/dL 0.70-1.30 [facility] Comment on above: The validity of the calculated GFR & GFRAA in patients over 70 years has not been determined. Clinical correlation is essential. Serum or plasma urea nitroge n measurement (mass/volume)Ordered By: Preston Camilo on 07-15-2023 Urea nitrogen [Mass/Vol] 21 mg/dL 7-18 [facility] Thin prep Papanicolaou smear with manual screeningOrdered By: Preston Camilo on 07-15-2023 Thin prep Papanicolaou smear with manual screening 6 5-15 [facility] CNPNon 07-12-2023 CNPN Telephone (AGPOB1) DENIZ KUMAR ([id number]) 1935 M Date Time Provider Department 07/12/23 BONIFACIO VALDEZ During your visit today, we recorded the following information about you: Bessie Duran 07/12/2023 4:10 PM Signed ----- Message from Bonifacio Valdez MD sent at 07/12/2023 3:59 PM EST ----- As long as incision is healed, no dressing is needed. OK to shower. ----- Message ----- From: Bessie Duran Sent: 07/12/2023 3:52 PM EST To: Bonifacio Valdez MD; Chloe Joyner I got a call from this patient's SNF asking if there were any wound care/nursing care for the in site? And they were also asking if the patient can shower? Just let us know. Thanks, Bessie Barber 07/12/2023 4:12 PM Signed Called and spoke with Joyce at [facility] [phone] and informed her of what the doctor said. She understood. Bessie Duran July 12, 2023 4:12 PM Allergies As of Date: 07/12/2023 Noted Allergy Reaction CLEARASIL MAXIMUM STRENGTH 09/16/2018 7 - Swelling Date Reviewed: 07/09/2023 Reviewed by: Bonifacio Valdez MD - Fully Assessed Reason for Visit: Patient Question [1477] Prescriptions as of 07/12/2023 - acetaminophen (TYLENOL) 500 mg tablet 2 tablets by ORAL/FEEDING TUBE route every 6 hours. - calcium-cholecalciferol , D3, (OSCAL+D 250) 250 mg-3.125 mcg (125 unit) per tablet Take 2 tablets by mouth two times a day. - levETIRAcetam (KEPPRA) 500 mg tablet Take 1 tablet by mouth two times a day for 4 doses. - senna (SENOKOT) 8.6 mg tab Take 2 tablets by mouth daily at bedtime. - pravastatin (PRAVACHOL) 20 mg tablet Take 1 tablet by mouth at bedtime - lisinopril (ZESTRIL) 20 mg tablet Take 1 tablet by mouth once daily. - doxazosin (CARDURA) 1 mg tablet Take 1 tablet by mouth once daily. - finasteride (PROSCAR) 5 mg tablet Take 1 tablet by mouth once daily. - Lactobacillus acidophilus (PROBIOTIC) 10 billion cell cap Take 1 capsule by mouth. - Melatonin 5 mg cap Take 5 mg by mouth daily at bedtime. - MULTIVITAMIN TAB Take one(1) tablet daily. Problem List As Of Date 07/12/2023 Noted Resolved Diverticulosis of large intestine [K57.30] Hyperlipidemia [E78.5] 08/28/2005 Essential hypertension [I10] 02/22/2006 Unspecified disorder of prostate [N42.9] 02/14/2007 07/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 [R79.89] 02/14/2007 07/12/2016 Dizziness and giddiness [R42] 08/22/2007 07/12/2016 Benign prostatic hyperplasia with urinary obstr*07/05/2010 Chronic nonallergic rhinitis [J31.0] 07/12/2016 Thrombocytopenia, unspecified (HCC) [D69.6] 2017 Erectile dysfunction [N52.9] 01/16/2018 Obesity, Class II, BMI 35-39.9 [E66.9] 07/28/2020 Urgency of urination [R39.15] 07/28/2020 Subdural hematoma (HCC) [S06.5XAA] 06/21/2023 Fall [W19.XXXA] 06/22/2023 Closed fracture of left ankle [S82.892A] 06/23/2023 Encounter Status:Closed by BESSIE DURAN on 07/12/23 [facility] CNOVon 07-09-2023 CNOV Office Visit (AGPOB1 ) DENIZ KUMAR ([id number]) 1935 M Date Time Provider Department 07/09/23 2:00 PM [facility] During your visit today, we recorded the following information about you: Respiration Weight Height 16/minute 96.2 kg 1.829 m Bonifacio Valdez MD 07/09/2023 2:27 PM Signed Subjective: Patient returns today for follow-up regarding [...] he will contact the office. Questions answered. Referring Provider: LYNDA HOLMAN [[id number]] Allergies As of Date: 07/09/2023 Noted Allergy Reaction CLEARASIL MAXIMUM STRENGTH 09/16/2018 7 - Swelling Date Reviewed: 07/09/2023 Reviewed by: Bonifacio Valdez MD - Fully Assessed Reason for Visit: Follow Up [171] Primary Visit Diagnosis:Closed bimalleolar fracture of left ankle with routine healing, subsequent encounter [L96.680J] Order(s):XR ANKLE GENERAL 3V AP/LAT/OBL LEFT [[id number]] Order #: [id number] Prescriptions as of 07/09/2023 - acetaminophen (TYLENOL) 500 mg tablet 2 tablets by ORAL/FEEDING TUBE route every 6 hours. - calcium-cholecalciferol , D3, (OSCAL+D 250) 250 mg-3.125 mcg (125 unit) per tablet Take 2 tablets by mouth two times a day. - levETIRAcetam (KEPPRA) 500 mg tablet Take 1 tablet by mouth two times a day for 4 doses. - senna (SENOKOT) 8.6 mg tab Take 2 tablets by mouth daily at bedtime. - pravastatin (PRAVACHOL) 20 mg tablet Take 1 tablet by mouth at bedtime - lisinopril (ZESTRIL) 20 mg tablet Take 1 tablet by mouth once daily. - doxazosin (CARDURA) 1 mg tablet Take 1 tablet by mouth once daily. - finasteride (PROSCAR) 5 mg tablet Take 1 tablet by mouth once daily. - Lactobacillus acidophilus (PROBIOTIC) 10 billion cell cap Take 1 capsule by mouth. - Melatonin 5 mg cap Take 5 mg by mouth daily at bedtime. - MULTIVITAMIN TAB Take one(1) tablet daily. Problem List As Of Date 07/09/2023 Noted Resolved Diverticulosis of large intestine [K57.30] Hyperlipidemia [E78.5] 08/28/2005 Essential hypertension [I10] 02/22/2006 Unspecified disorder of prostate [N42.9] 02/14/2007 07/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 [R79.89] 02/14/2007 07/12/2016 Dizziness and giddiness [R42] 08/22/2007 07/12/2016 Benign prostatic hyperplasia with urinary obstr*07/05/2010 Chronic nonallergic rhinitis [J31.0] 07/12/2016 Thrombocytopenia, unspecified (HCC) [D69.6] 2017 Erectile dysfunction [N52.9] 01/16/2018 Obesity, Class II, BMI 35-39.9 [E66.9] 07/28/2020 Urgency of urination [R39.15] 07/28/2020 Subdural hematoma (HCC) [S06.5XAA] 06/21/2023 Fall [W19.XXXA] 06/22/2023 Closed fracture of left ankle [S82.892A] 06/23/2023 Disposition: Return in about 4 weeks (around 08/06/2023). Follow-up and Disposition History for Encounter Date Provider Department Center 07/09/2023 [id number] VALDEZ AGPOB1 AG POB Encounter Status:Closed by BONIFACIO VALDEZ on 07/09/23 Normal [facility] Basophil percentageOrdered B y: Preston Camilo on 07-04-2023 Cholesterol [Mass/Vol] 158 mg/dL <200 [facility] Comment on above: <200 mg/dL Desirable 200-240 mg/dL Borderline >240 mg/dL High Risk Triglyceride [Mass/Vol] 77 mg/dL <199 [facility] Comment on above: The drugs N-Acetylcy steine and Metamizole may falsely depress this assay.Serum Triglycerides Reference Interval Normal <150 mg/dL Borderline high 150 - 199 mg/dL High 200 - 499 mg/dL Very High > or = 500 mg/dL [facility] 07-04-2023 CNPN Telephone (NEAGCLM) DENIZ KUMAR ([id number]) 1935 M Date Time Provider Department 07/04/23 NICOL[facility]S JUNIOR NEAGCLM During your visit today, we recorded the following information about you: Gustavo Reyes 07/04/2023 8:35 AM Signed I returned patients facility from [place] [phone] confirming day time and location of upcoming appt. Allergies As of Date: 07/04/2023 Noted Allergy Reaction CLEARASIL MAXIMUM STRENGTH 09/16/2018 7 - Swelling Date Reviewed: 06/25/2023 Reviewed by: Molly Marie, RN - Fully Assessed Prescriptions as of 07/04/2023 - acetaminophen (TYLENOL) 500 mg tablet 2 tablets by ORAL/FEEDING TUBE route every 6 hours. - calcium-cholecalciferol , D3, (OSCAL+D 250) 250 mg-3.125 mcg (125 unit) per tablet Take 2 tablets by mouth two times a day. - levETIRAcetam (KEPPRA) 500 mg tablet Take 1 tablet by mouth two times a day for 4 doses. - senna (SENOKOT) 8.6 mg tab Take 2 tablets by mouth daily at bedtime. - pravastatin (PRAVACHOL) 20 mg tablet Take 1 tablet by mouth at bedtime - lisinopril (ZESTRIL) 20 mg tablet Take 1 tablet by mouth once daily. - doxazosin (CARDURA) 1 mg tablet Take 1 tablet by mouth once daily. - finasteride (PROSCAR) 5 mg tablet Take 1 tablet by mouth once daily. - Lactobacillus acidophilus (PROBIOTIC) 10 billion cell cap Take 1 capsule by mouth. - Melatonin 5 mg cap Take 5 mg by mouth daily at bedtime. - MULTIVITAMIN TAB Take one(1) tablet daily. Problem List As Of Date 07/04/2023 Noted Resolved Diverticulosis of large intestine [K57.30] Hyperlipidemia [E78.5] 08/28/2005 Essential hypertension [I10] 02/22/2006 Unspecified disorder of prostate [N42.9] 02/14/2007 07/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 [R79.89] 02/14/2007 07/12/2016 Dizziness and giddiness [R42] 08/22/2007 07/12/2016 Benign prostatic hyperplasia with urinary obstr*07/05/2010 Chronic nonallergic rhinitis [J31.0] 07/12/2016 Thrombocytopenia, unspecified (HCC) [D69.6] 2017 Erectile dysfunction [N52.9] 01/16/2018 Obesity, Class II, BMI 35-39.9 [E66.9] 07/28/2020 Urgency of urination [R39.15] 07/28/2020 Subdural hematoma (HCC) [S06.5XAA] 06/21/2023 Fall [W19.XXXA] 06/22/2023 Closed fracture of left ankle [S82.892A] 06/23/2023 Encounter Status:Closed by GUSTAVO REYES on 07/04/23 [facility] Serum or plasma cholesterol in HDL measurement (mass/volume)Ordered By: Preston Camilo on 07-04-2023 Cholesterol in HDL [Mass/Vol] 49 mg/dL >40 [facility] Comment on above: The drugs N-Acetylcy steine and Metamizole may falsely depress this assay. Reference Range HDL <40 mg/dL Low HDL Cholesterol HDL >or= 60 mg/dL High HDL Cholesterol Serum or plasma cholesterol in VLDL measurement (mass/volume)Ordered By: Preston Camilo on 07-04-2023 Cholesterol in VLDL [Mass/Vol] 15 mg/dL 5-40 [facility] Serum or plasma low density lipoprotein (LDL) cholesterol measurement (mass/volume)Ordered By: Preston Camilo on 07-04-2023 Cholesterol in LDL [Mass/Vol] 94 mg/dL 0-130 [facility] Basophil percentageOrdered B y: Preston Camilo on 07-03-2023 Basophil percentage 0-5 SEEN /hpf 0-[address] [facility] Bilirubin Test strip Ql (U)O rdered By: Preston Camilo on 07-03-2023 Bilirubin Ql (U) Negative Negative [facility] CNPNon 07-03-2023 CNPN Telephone (AGPOB1) DENIZ KUMAR ([id number]) 1935 M Date Time Provider Department 07/03/23 BONIFACIO VALDEZ AGPOB1 During your visit today, we recorded the following information about you: Chloe Joyner 07/04/2023 10:27 AM Addendum Called facility and scheduled PT for PO appt on 07/09/22 Chloe Joyner July 04, 2023 10:27 AM ----- Message from Pat Zuñiga sent at 07/03/2023 9:58 AM EST ----- Regarding: Orthopedics / José Miguel Ankle: Fracture Broken / Unable To Schedule Dx Patient has been identified by name and Date of (Y/N): Y Patient: Deniz Kumar Date of : 1935 Previous Provider Seen: Dr. Valdez Body Part(s) Identified: Left Ankle Diagnosis/Reason For Visit: Fracture Reason for the call/escalation: I am unable to schedule per tool. Patient needs to schedule a follow up appointment from surgery on fractured ankle. If reason for call/escalation is discharge from ED/ER or Hospital, which facility was the patient seen at: [facility] Emergency Room Was an appointment scheduled (Y/N): N Person calling if other than patient: [facility] Return call to if other than patient: Best contact number: Thank you, Pat Zuñiga July 03, 2023 9:58 AM Allergies As of Date: 07/03/2023 Noted Allergy Reaction CLEARASIL MAXIMUM STRENGTH 09/16/2018 7 - Swelling Date Reviewed: 06/25/2023 Reviewed by: Molly Marie, LEATHA - Fully Assessed Prescriptions as of 07/04/2023 - acetaminophen (TYLENOL) 500 mg tablet 2 tablets by ORAL/FEEDING TUBE route every 6 hours. - calcium-cholecalciferol , D3, (OSCAL+D 250) 250 mg-3.125 mcg (125 unit) per tablet Take 2 tablets by mouth two times a day. - levETIRAcetam (KEPPRA) 500 mg tablet Take 1 tablet by mouth two times a day for 4 doses. - senna (SENOKOT) 8.6 mg tab Take 2 tablets by mouth daily at bedtime. - pravastatin (PRAVACHOL) 20 mg tablet Take 1 tablet by mouth at bedtime - lisinopril (ZESTRIL) 20 mg tablet Take 1 tablet by mouth once daily. - doxazosin (CARDURA) 1 mg tablet Take 1 tablet by mouth once daily. - finasteride (PROSCAR) 5 mg tablet Take 1 tablet by mouth once daily. - Lactobacillus acidophilus (PROBIOTIC) 10 billion cell cap Take 1 capsule by mouth. - Melatonin 5 mg cap Take 5 mg by mouth daily at bedtime. - MULTIVITAMIN TAB Take one(1) tablet daily. Problem List As Of Date 07/03/2023 Noted Resolved Diverticulosis of large intestine [K57.30] Hyperlipidemia [E78.5] 08/28/2005 Essential hypertension [I10] 02/22/2006 Unspecified disorder of prostate [N42.9] 02/14/2007 07/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 [R79.89] 02/14/2007 07/12/2016 Dizziness and giddiness [R42] 08/22/2007 07/12/2016 Benign prostatic hyperplasia with urinary obstr*07/05/2010 Chronic nonallergic rhinitis [J31.0] 07/12/2016 Thrombocytopenia, unspecified (HCC) [D69.6] 2017 Erectile dysfunction [N52.9] 01/16/2018 Obesity, Class II, BMI 35-39.9 [E66.9] 07/28/2020 Urgency of urination [R39.15] 07/28/2020 Subdural hematoma (HCC) [S06.5XAA] 06/21/2023 Fall [W19.XXXA] 06/22/2023 Closed fracture of left ankle [S82.892A] 06/23/2023 Encounter Status:Closed by CHLOE JOYNER on 07/04/23 Normal [facility] Culture, urineOrdered By: Lloyd Camilo on 07-03-2023 Bacteria identified Cx Nom (U) Culture exhibits no growth. [facility] Ketones Test strip Ql (U)Ord ered By: Preston Camilo on 07-03-2023 Ketones Ql (U) 15 mg/dl Negative [facility] Mucus LM Ql (Urine sed)Order ed By: Preston Camilo on 07-03-2023 Mucus Ql (Urine sed) 1+ /hpf [facility] Nitrite Test strip Ql (U)Ord ered By: Preston Camilo on 07-03-2023 Nitrite Ql (U) Negative Negative [facility] Protein Test strip Ql (U)Ord ered By: Preston Camilo on 07-03-2023 Protein Ql (U) 100 mg/dl Negative [facility] Squamous epithelial cells de tection in urine sediment by light microscopyOrdered By: Preston Camilo on 07-03-2023 Epithelial cells.squamous LM Ql (Urine sed) 0-5 SEEN /hpf 0-5 [facility] Urine blood detectionOrdered By: Preston Camilo on 07-03-2023 RBC Ql (U) 25 /ul Negative [facility] RBC Ql (U) 0-5 SEEN /hpf 0-5 [facility] Urine clarityOrdered By: Preston Camilo on 07-03-2023 Clarity (U) Clear Clear [facility] Urine color determinationOrd ered By: Preston Camilo on 07-03-2023 Color (U) Yellow Yellow [facility] Urine glucose detectionOrder ed By: Preston Camilo on 07-03-2023 Glucose Ql (U) Normal mg/dl Normal [facility] Urine leukocyte esterase det ection by dipstickOrdered By: Preston Camilo on 07-03-2023 Leukocyte esterase Test strip Ql (U) 25 /ul Negative [facility] Urine pHOrdered By: Preston Camilo on 07-03-2023 pH (U) 6.0 [pH] 5.0 - 8.0 [facility] Urine sediment bacteria coun t by microscopy (number/high power field)Ordered By: Preston Camilo on 07-03-2023 Bacteria LM.HPF (Urine sed) [#/Area] 1 /[HPF] None Seen [facility] Urine specific gravity measu rementOrdered By: Preston Camilo on 07-03-2023 Specific gravity (U) [Rel density] 1.020 1.002-1.030 [facility] Urobilinogen Auto test strip Ql (U)Ordered By: Preston Ton on 07-03-2023 Urobilinogen Ql (U) 1 mg/dl Normal [facility] CNDSon 06-27-2023 DS HNO ID: [id number] Author: Bonifacio William PA-C Service: General Surgery Author Type: Physician Supervisor [employer] Type: Discharge Summary Filed: 06/27/2023 2:55 PM Note Text: Attestation signed by Kade Garrett MD at 06/27/2023 5:00 PM The [employer], acting on behalf of the attending physician, has completed the [id number] portion of the patient discharge encounter. SIGNATURE: Kade Garrett MD PATIENT NAME: Deniz Kumar DATE: June 27, 2023 TIME: 5:00 PM Pager: [phone] DISCHARGE SUMMARY PATIENT NAME: Deniz Kumar Code Status: Full Code Highest Readmission Risk Score: 13 The 30 day readmissions risk score is derived from an internally validated risk model which evaluates patient level characteristics, utilization history, medication orders and lab results up until the day of discharge. Patients with a score of 40 or above are considered highest risk for readmission. Specific patient level drivers will be listed at the bottom of the summary. Admission Information Admission Information ADMIT DATE: 06/21/2023 DISCHARGE DATE: 06/27/2023 MY DOCTORS AND MEDICAL TEAM: My Main Hospital Doctor: Kade Garrett MD Primary Care Provider: Vadim Deras MD My Medical Team Members: Treatment Team: Attending Provider: Kade Garrett MD Consulting: Bonifacio Valdez MD MY CONDITION AT DISCHARGE: Stable REASON I WAS IN THE HOSPITAL: Evaluation and treatment of injuries sustained following a fall SUMMARY OF WHAT HAPPENED WHILE I WAS IN THE HOSPITAL: Patient was evaluated in the ED at [facility] on 06/21/2023 as a trauma transfer from an outside ED after a reported fall while he was hiking. As a part of his workup, he would undergo CT imaging of his brain and cervical spine. He also had X-rays completed of his chest, pelvis, and left ankle. These imaging studies would reveal the following listed acute traumatic injuries: Traumatic Injuries: 1. Left parafalcine and tentorial SDH (brain bleed) 2. Left ankle fracture with syndesmotic instability (broken left ankle) Due to his injuries, he would be admitted under the trauma surgery service to the intensive care unit. He was given DDAVP to reverse his home Aspirin medication. Neurosurgery was consulted to help manage his brain bleed. This injury was treated conservatively with non-operative management. He was started on a 7 day course of Keppra for seizure prevention. Repeat CT scans of his brain were found to be stable. Orthopedic surgery was consulted for management of his left ankle injury. This injury would be treated operatively. He would go the operating room with Dr. Valdez on 06/23/2023 for an ORIF of his left bimalleolar ankle fracture. He would receive post operative antibiotics. He is not allowed to bear any weight on his left leg. A walking boot was placed on his left foot. He was given as needed pain medication. He was evaluated by physical and occupational therapy, and they recommended placement at a fdc facility. He would be deemed medically stable for discharge to a SNF by the attending trauma surgeon on 06/27/2023. Mr. Kumar will need to follow up with neurosurgery and orthopedic surgery after hospital discharge. He also CANNOT resume his home Aspirin medication until he has been cleared to do so by his neurosurgeon as an outpatient. OTHER PROBLEMS/DIAGNOSIS: Principal Problem: Subdural hematoma (HCC) Active Problems: Essential hypertension Thrombocytopenia, unspecified (HCC) Fall Closed fracture of left ankle Resolved Problems: * No resolved hospital problems. * OPERATIONS PERFORMED WHILE IN THE HOSPITAL: Open reduction fixation of left bimalleolar ankle fracture and left syndesmosis on 06/23 with orthopedic surgery IMPORTANT TEST/PROCEDURES: No procedures performed TEST RESULTS NOT AVAILABLE AT THIS TIME: No pending results Discharge Disposition Discharge Disposition: Fpc Facility - Less than 30 Days Activity When You Leave the Hospital May bathe and shower May walk with a walker No prolonged bedrest, longer than 8 hours in a 24 hour period No weight bearing on operative leg Diet Instructions Resume your pre-hospital diet For Pain When You Leave the Hospital Keep area at rest and elevate it to reduce pain and swelling Use acetaminophen (Tylenol) as recommended on the bottle Use surgical shoe as directed or as needed Wound/Surgical Site Care Do not change or remove your dressing Keep your dressing clean and dry Some bleeding from the wound/surgical site can be expected. If excessive, see a doctor at once Some bleeding from the wound/surgical site can be expected. If you soak a gauze bandage in one hour, see a d (more content not included)... Normal [facility] THERAPY NTon 06-27-2023 THERAPY NT HNO ID: [id number] Author: Kade Valera, PT Service: Physical Therapy Author Type: Physical Therapist Type: Therapy (PT/OT/Speech/Resp) Filed: 06/27/2023 1:06 PM Note Text: Physical Therapy Treatment SERVICE DATE: 06/27/2023 SERVICE TIME: 1113 to 1137 ROOM: [id number] Recommended Discharge Disposition: Subacute/SNF Recommended Discharge Disposition Comments: Patient would benefit from fdc facility to enhance mobility while maintaining nonweightbearing of left lower extremity. Recommended Discharge Disposition Due to: Patient requires daily, facility-based rehabilitation from at least one discipline due to:, decline in functional status requiring daily skilled care PT 6 Clicks Score: 14 Patient continues to have difficulty mobilizing and maintaining NWB L. Patient will benefit from SNF at d/c Precautions/Activity Restrictions: Fall Risk, Bed/Chair Alarm, Weight Bearing Restrictions Isolation Type: None Extremity With Weight Bearing Restricted: Left Lower Extremity Left Lower Extremity Weight Bearing Status: NWB Current Hospital Course: Pt admitted for fall while hiking, + L ankle fx with syndesmotic instability and L SDH Reason for Hospital Admission: fall while hiking Relevant Past Medical History: BPH, urinary urgency, diverticulosis Response to Therapy Interventions: Good Participation in Activities Physical Therapy Problem List: Safety Deficits, Decreased Activity Tolerance, Decreased Range Of Motion, Functional Mobility Impairment, Decreased Strength, Balance Impaired Treatment Interventions: Education, Strengthening, Functional Mobility Training, Balance Training, Neuromuscular Re-education Home Environment Patient Lives With: Self/Alone Assistance Available: PRN Entry To Home: Stairs, Without Rail Number Of Stairs Into Home: 3 Number Of Stairs To Bed/Bath: 0 Tub/Shower Type: tub/shower Laundry: in mobile home Equipment Owned: (walking stick) Prior Functional Level: Within Functional Limits Prior Functional Level Comments: Pt rpts very active at baseline, 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 Independent with ADLs/IADLs was hiking with hiking stick due to weakness he thinks from his statin but wasnt at time of fall/injury Subjective: Pleasant and cooperative CURRENT FUNCTIONAL STATUS: Most recent performance Current Functional Mobility Assist Level Additional Information Rolling Contact Guard Assistance Supine to Sit Minimal Assistance, Additional Information Increased time to bring BLE to EOB. Physical assist to pull trunk to upright. Sit to Supine Minimal Assistance, Additional Information Scooting Minimal Assistance Sit to Stand Moderate Assistance VCs for hand placement/sequencing. Increased time to achieve upright. VCs throughout to maintain WB restriction with 80% compliance. Stand to Sit Additional Information, Minimal Assistance improved control of descent. VCs to square up wiht surface prior to sitting. Bed to Chair Moderate Assistance, Additional Information Bed To Chair Transfer Type: Stepping Bed To Chair Transfer Equipment: Wheeled Walker Toilet/Commode Gait Minimal Assistance, Additional Information Gait Device: Wheeled Walker Gait Distance (feet): 5'x1` Fatigues quickly while maintaining nonweightbearing left lower extremity occasionally. Puts foot down at times. Requires rest breaks Stairs Curb Step Car Transfer Blank catalan indicate activity not attempted General Deviations/Observations : Antalgic gait Balance: Static Sitting, Static Standing Static Sitting Balance: Good Patient able to maintain balance without handhold support, limited postural sway Static Standing Balance: Fair Patient able to maintain balance with handhold support, may require occasional minimal assistance JH-HLM: 5: Standing (1 or more minutes) Learning/Educational Needs: Discharge Plan, Disease Process [place] Scale: 8 - Purposeful, Appropriate Response (06/26/23 4527) Goals for Plan of Care: Patient/Caregiver Goals: Go Home Able to Perform HEP with: Independent Rolling with: Independent Transfer Supine to/from Sit with: Supervision Transfer Sit to/from Stand with: Supervision Ambulate with: Supervision Distance: 50x2 Device: Wheeled Walker Progress Toward Goals: Progressing as expected Rehab Potential: Fair Patient will be discontinued from Physical Therapy when no further skilled needs are identified in this setting. PLAN: PT Frequency: 5 Times Per Week (2-4) Plan of Care developed with: Patient TREATMENT INTERVENTIONS: Therapy Diagnosis: Reduced mobility-other Interventions Provided: Therapeutic Exercise (95756), Therapeutic Activity (56879), Gait Training (21951) Therapeutic Exercise (20661) Treatment Minutes: 12 $ Therapeutic Exercise (22908) Billed Units: 1 unit Open chain strength exercises to bilateral LEs at available joints. Patient denies p (more content not included)... Normal [facility] Basic metabolic 2000 panelon 06-26-2023 Anion gap [Moles/Vol] 8 mmol/L Low 9-18 [facility] Comment on above: Order Comment: Speci men Type: BLOOD SPECIMENOrdering Facility: [facility] Address: [address] [place] [address] Performed By: #### 2 4321-2 ####[facility] LABORATORYCLIA [id number] [place] [address] [place] Calcium [Mass/Vol] 9.2 mg/dL Normal 8.5-10.2 [facility] Comment on above: Order Comment: Speci men Type: BLOOD SPECIMENOrdering Facility: [facility] Address: [address] [place] [address] Performed By: #### 2 4321-2 ####[facility] LABORATORYCLIA [id number] [place] [address] [place] Chloride [Moles/Vol] 107 mmol/L High 97-105 [facility] Comment on above: Order Comment: Speci men Type: BLOOD SPECIMENOrdering Facility: [facility] Address: [address] [place] [address] Performed By: #### 2 4321-2 ####[facility] LABORATORYCLIA [id number] [place] [address] [place] CO2 [Moles/Vol] 25 mmol/L Normal 22-30 [facility] Comment on above: Order Comment: Speci meme Type: BLOOD SPECIMENOrdering Facility: [facility] Address: [address] [place] [address] Performed By: #### 2 4321-2 ####[facility] LABORATORYCLIA [id number] [address] [place] Creatinine [Mass/Vol] 0.98 mg/dL Normal 0.73-1.22 [facility] Comment on above: Order Comment: Manuel valentine Type: BLOOD SPECIMENOrdering Facility: [facility] Address: [address] [place] [address] Performed By: #### 2 4321-2 ####[facility][1]CLIA [id number] [address] Creatinine and Glomerular filtration rate.predicted panel (S/P/Bld) 75 mL/min/1.73m??? Normal >=60 [facility] Comment on above: Order Comment: Manuel valentine Type: BLOOD SPECIMENOrdering Facility: [facility] Address: [address] [place] [address] Result Comment: Franny mated Glomerular Filtration Rate (eGFR) is calculated using the 2020 CKD-EPI creatinine equation. This equation utilizes serum creatinine, sex, and age as parameters. The creatinine assay has traceable calibration to isotope dilution-mass spectrometry. Refer to KDIGO guidelines for clinical interpretation. In patients with unstable renal function, e.g. those with acute kidney injury, the eGFR may not accurately reflect actual GFR. Performed By: #### 2 4321-2 ####[facility] LABORATORYCLIA [id number] [address] STATES OF [facility] Glucose [Mass/Vol] 86 mg/dL Normal 74-99 [facility] Comment on above: Order Comment: Manuel valentine Type: BLOOD SPECIMENOrdering Facility: [facility] Address: [address] [place] [address] Result Comment: The [place] Diabetes Association (ADA) provides guidance for cutoff values for fasting glucose and random glucose. The ADA defines fasting as no caloric intake for at least 8 hours. Fasting plasma glucose results between 100 to 125 mg/dL indicate increased risk for diabetes (prediabetes). Fasting plasma glucose results greater than or equal to 126 mg/dL meet the criteria for diagnosis of diabetes. In the absence of unequivocal hyperglycemia, results should be confirmed by repeat testing. In a patient with classic symptoms of hyperglycemia or hyperglycemic crisis, random plasma glucose results greater than or equal to 200 mg/dL meet the criteria for diagnosis of diabetes. Reference: Standards of Medical Care in Diabetes 2016, [place] [employer] Association. Diabetes Care. 2016.39(Suppl 1). Performed By: #### 2 4321-2 ####[facility] LABORATORYCLIA [id number] [address] STATES OF [facility] Potassium [Moles/Vol] 3.9 mmol/L Normal 3.7-5.1 [facility] Comment on above: Order Comment: Speci men Type: BLOOD SPECIMENOrdering Facility: [facility] Address: [address] [place] [address] Performed By: #### 2 4321-2 ####[facility][1]CLIA [id number] [address] Sodium [Moles/Vol] 140 mmol/L Normal 136-144 [facility] Comment on above: Order Comment: Speci men Type: BLOOD SPECIMENOrdering Facility: [facility] Address: [address] [place] [address] Performed By: #### 2 4321-2 ####[facility] LABORATORYCLIA [id number] [address] Urea nitrogen [Mass/Vol] 28 mg/dL High 9-24 [facility] Comment on above: Order Comment: Speci men Type: BLOOD SPECIMENOrdering Facility: [facility] Address: [address] [place] [address] Performed By: #### 2 4321-2 ####[facility] LABORATORYCLIA [id number] [address] CBC panel Auto (Bld)on 06-26 Erythrocyte distribution width (RBC) [Ratio] 12.8 % Normal 11.5-15.0 [facility] Comment on above: Order Comment: Speci men Type: BLOOD SPECIMENOrdering Facility: [facility] Address: [address] [place] [address] Performed By: #### 5 8410-2 ####[facility] LABORATORYCLIA [id number] [address] OF [facility] Hematocrit (Bld) [Volume fraction] 39.3 % Normal 39.0-51.0 [facility] Comment on above: Order Comment: Speci men Type: BLOOD SPECIMENOrdering Facility: [facility] Address: [address] [place] [address] Performed By: #### 5 8410-2 ####[facility] LABORATORYCLIA [id number] [address] [place] Hemoglobin (Bld) [Mass/Vol] 13.4 g/dL Normal 13.0-17.0 [facility] Comment on above: Order Comment: Speci men Type: BLOOD SPECIMENOrdering Facility: [facility] Address: [address] [place] [address] Performed By: #### 5 8410-2 ####[facility] LABORATORYCLIA [id number] [address] STATES OF [facility] MCH (RBC) [Entitic mass] 30.9 pg Normal 26.0-34.0 [facility] Comment on above: Order Comment: Speci men Type: BLOOD SPECIMENOrdering Facility: [facility] Address: [address] [place] [address] Performed By: #### 5 8410-2 ####[facility] LABORATORYCLIA [id number] [address] [place] MCHC (RBC) [Mass/Vol] 34.1 g/dL Normal 30.5-36.0 [facility] Comment on above: Order Comment: Speci men Type: BLOOD SPECIMENOrdering Facility: [facility] Address: [address] [place] [address] Performed By: #### 5 8410-2 ####[facility] LABORATORYCLIA [id number] [place] [address] [place] MCV (RBC) [Entitic vol] 90.8 fL Normal 80.0-100.0 [place] Comment on above: Order Comment: Speci men Type: BLOOD SPECIMENOrdering Facility: [facility] Address: [address] [place] [address] Performed By: #### 5 8410-2 ####[facility] LABORATORYCLIA [id number] [place] [address] [place] Nucleated RBC (Bld) [#/Vol] 10*3/uL Normal <0.01 [facility] Comment on above: Order Comment: Speci men Type: BLOOD SPECIMENOrdering Facility: [facility] Address: [address] [place] [address] Performed By: #### 5 8410-2 ####[facility] LABORATORYCLIA [id number] [address] [place] Platelet mean volume (Bld) [Entitic vol] 11.3 fL Normal 9.0-12.7 [facility] Comment on above: Order Comment: Speci men Type: BLOOD SPECIMENOrdering Facility: [facility] Address: [address] [place] [address] Performed By: #### 5 8410-2 ####[facility] LABORATORYCLIA [id number] [address] [place] Platelets (Bld) [#/Vol] 108 10*3/uL Low 150-400 [facility] Comment on above: Order Comment: Speci men Type: BLOOD SPECIMENOrdering Facility: [facility] Address: [address] [place] [address] Result Comment: No c lot detected. Performed By: #### 5 8410-2 ####[facility] LABORATORYCLIA [id number] [address] [place] RBC (Bld) [#/Vol] 4.33 10*6/uL Normal 4.20-6.00 [facility] Comment on above: Order Comment: Speci men Type: BLOOD SPECIMENOrdering Facility: [facility] Address: [address] [place] [address] Performed By: #### 5 8410-2 ####[facility] LABORATORYCLIA [id number] [place] [address] [facility] WBC (Bld) [#/Vol] 4.95 10*3/uL Normal 3.70-11.00 [facility] Comment on above: Order Comment: Speci men Type: BLOOD SPECIMENOrdering Facility: [facility] Address: [place] [address] Performed By: #### 5 8410-2 ####[facility] LABORATORYCLIA [id number] [place] [address] [facility] NURSING PROGon 06-26-2023 NURSING PROG HNO ID: [id number] Author: Makayla Riggins RN Service: ? Author Type: Registered Nurse Type: Nursing Progress Note Filed: 06/26/2023 5:10 PM Note Text: Nursing Progress Note Patient Name: Deniz Kumar Patient Location: [place] [address] [address] Surgery paged regarding patients blood pressure of 161/103 at 11:42 and 155/100 at 15:17. OR nurse notified to pass to team. No new orders at this time. This note was completed by: Makayla Gomez [facility] THERAPY NTon 06-26-2023 THERAPY NT HNO ID: [id number] Author: Marlen Unger OTR/Brett Service: Occupational Therapy Author Type: Occupational Therapist Type: Therapy (PT/OT/Speech/Resp) Filed: 06/26/2023 4:41 PM Note Text: Occupational Therapy Treatment SERVICE DATE: 06/26/2023 SERVICE TIME: 1603 to 1627 ROOM: [place] [address] Recommended Discharge Disposition: Subacute/SNF Recommended Discharge Disposition Comments: Pt not able to transfer or safely complete ADLs without assist at this time Recommended Discharge Disposition Due to: Patient requires daily, facility-based rehabilitation from at least one discipline due to:, decline in functional status requiring daily skilled care, new / worsened cognitive deficits related to current diagnosis, ongoing intervention of multiple therapy disciplines OT 6 Clicks Score: 16 Patient is agreeable to OT session this date, unaware of bladder accident. Patient with slow steady progress towards ongoing OT goals. Patient demonstrates poor execution of weight bearing precautions during functional tasks, decreased safety during OT session. Continue to recommend SNF upon discharge. Precautions/Activity Restrictions: Fall Risk, Bed/Chair Alarm, Weight Bearing Restrictions Isolation Type: None Extremity With Weight Bearing Restricted: Left Lower Extremity Left Lower Extremity Weight Bearing Status: NWB Current Hospital Course: Pt admitted for fall while hiking, + L ankle fx with syndesmotic instability and L SDH Reason for Hospital Admission: fall while hiking Relevant Past Medical History: BPH, urinary urgency, diverticulosis Response to Therapy Interventions: Good Participation in Activities, Improved Tolerance for Activity, Low Activity Tolerance, Multiple Ongoing Medical Issues, Requires Additional Time to Complete Activities, Slow Progression with ADLs/IADLs, Cognitive Deficits Occupational Therapy Problem List: Education Deficit, Safety Deficits, Impaired Self Care, Functional Mobility Impairment, Decreased Strength, Balance Impaired, Decreased Activity Tolerance Cognition/Communication Deficits Responsiveness: Alert, Awake Follows Commands: 2-step Commands, Cueing Needed Cueing to Follow Commands: Minimum Judgement Deficit: Moderate impairment Insight to Deficits: Moderate impairment Safety Awareness Deficit: Moderate impairment Cognitive Clinical Tests and Screens: The Ranch[place] Amigos Scale [place] Scale: 8 - Purposeful, Appropriate Response Treatment Interventions: Education, Self Care/Home Management, Functional Mobility Training, Balance Training Home Environment Patient Lives With: Self/Alone Assistance Available: PRN Entry To Home: Stairs, Without Rail Number Of Stairs Into Home: 3 Number Of Stairs To Bed/Bath: 0 Tub/Shower Type: tub/shower Laundry: in mobile home Equipment Owned: (walking stick) Prior Functional Level: Within Functional Limits Prior Functional Level Comments: Pt rpts very active at baseline, 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 Independent with ADLs/IADLs was hiking with hiking stick due to weakness he thinks from his statin but wasnt at time of fall/injury Occupational Factors Life Roles: Family Member, Friend Identified Strengths: Involvement in Hobbies/Leisure Activities Identified Barriers: Problem-Solving Skills Subjective: Patient is agreeable to OT session CURRENT FUNCTIONAL STATUS: Most recent performance mobility performed during session in bold, other mobility completed during prior session and may no longer be correct or appropriate to complete. Current Activities of Daily Living Assist Level Additional Information Feeding Independent Grooming Minimal Assistance Bathing Upper Body Minimal Assistance Bathing Lower Body Moderate Assistance Completed in seated, education in use of shower chair due to non weight bearing to left lower extremity, unable to sustain non weight bearing in standing for buttocks Dressing Upper Body Stand By Assistance Dressing Lower Body Moderate Assistance Patient unable to manage garments over walking boot, instruction in management of walking boot with step by step cues, poor carryover of task, patient unable to maintain non weight bearing with unilateral upper extremity support in standing to manage garments up Toileting Maximal Assistance Bladder accident Instrumental Activities of Daily Living Assist Level Additional Information Meal/Beverage Prep Cleaning Laundry Medication Management with Strategies Functional Mobility Assist Level Additional Information Rolling Supine to Sit Minimal Assistance Sit to Supine Scooting Sit to Stand Minimal Assistance Cues to slide left lower extremity forward to maintain non weight bearing, cues for safe hand placement to push up from chair with poor carryover Stand to Sit Minimal Assistance Cues to slide left lower extremity forward to maintain non weight bearing, cues to re (more content not included)... Normal [facility] THERAPY NT HNO ID: [id number] Author: Jon Araujo PT Service: Physical Therapy Author Type: Physical Therapist Type: Therapy (PT/OT/Speech/Resp) Filed: 06/26/2023 3:13 PM Note Text: Physical Therapy Treatment SERVICE DATE: 06/26/2023 SERVICE TIME: 1442 to 1506 ROOM: [place] [address] Recommended Discharge Disposition: Subacute/SNF Recommended Discharge Disposition Comments: Patient would benefit from fdc facility to enhance mobility while maintaining nonweightbearing of left lower extremity. Recommended Discharge Disposition Due to: Patient requires daily, facility-based rehabilitation from at least one discipline due to:, decline in functional status requiring daily skilled care PT 6 Clicks Score: 15 Patient with ongoing progress towards goals. At this time he continues to be limited by weight bearing restriction and requires minimal assist/ moderate assist for sit to stand transfers. Patient with 80% compliance of weight bearing restriction during standing and is unable to safely ambulate at this time. Remains at a high risk of falls/injury and would benefit from discharge to fdc facility once medically stable prior to return home alone. Precautions/Activity Restrictions: Fall Risk, Bed/Chair Alarm, Weight Bearing Restrictions Isolation Type: None Extremity With Weight Bearing Restricted: Left Lower Extremity Left Lower Extremity Weight Bearing Status: NWB Current Hospital Course: Pt admitted for fall while hiking, + L ankle fx with syndesmotic instability and L SDH Reason for Hospital Admission: fall while hiking Relevant Past Medical History: BPH, urinary urgency, diverticulosis Response to Therapy Interventions: Good Participation in Activities Physical Therapy Problem List: Safety Deficits, Decreased Activity Tolerance, Decreased Range Of Motion, Functional Mobility Impairment, Decreased Strength, Balance Impaired Treatment Interventions: Education, Strengthening, Functional Mobility Training, Balance Training, Neuromuscular Re-education Home Environment Patient Lives With: Self/Alone Assistance Available: PRN Entry To Home: Stairs, Without Rail Number Of Stairs Into Home: 3 Number Of Stairs To Bed/Bath: 0 Tub/Shower Type: tub/shower Laundry: in mobile home Equipment Owned: (walking stick) Prior Functional Level: Within Functional Limits Prior Functional Level Comments: Pt rpts very active at baseline, 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 Independent with ADLs/IADLs was hiking with hiking stick due to weakness he thinks from his statin but wasnt at time of fall/injury Subjective: Pleasant and cooperative CURRENT FUNCTIONAL STATUS: Most recent performance mobility performed during session in bold, other mobility completed during prior session and may no longer be correct or appropriate to complete. Current Functional Mobility Assist Level Additional Information Rolling Contact Guard Assistance Supine to Sit Minimal Assistance, Additional Information Increased time to bring BLE to EOB. Physical assist to pull trunk to upright. Sit to Supine Minimal Assistance, Additional Information Scooting Minimal Assistance Sit to Stand Minimal Assistance, Additional Information VCs for hand placement/sequencing. Increased time to achieve upright. VCs throughout to maintain WB restriction with 80% compliance. Stand to Sit Moderate Assistance, Additional Information Poor control of descent. VCs to square up wiht surface prior to sitting. Bed to Chair Moderate Assistance, Additional Information Bed To Chair Transfer Type: Stand Pivot Bed To Chair Transfer Equipment: Wheeled Walker Physical assist to achieve upright and to square up with surface prior to sitting. VCs for maintenance of WB restriction. Moderate risk of falls. Toilet/Commode Gait Minimal Assistance, Additional Information Gait Device: Wheeled Walker Gait Distance (feet): 10x1 Stairs Curb Step Car Transfer Blank catalan indicate activity not attempted General Deviations/Observations : Antalgic gait Range of Motion: WFL Except, ROM Limitation Comments ROM Limitation Comments: Within normal limits except left ankle which is wrapped and in a boot Strength: WFL Except, Strength Limitation Comments Strength Limitation Comments: Able to long arc quad with left leg all strength within functional limits except left ankle Balance: Static Sitting, Static Standing Static Sitting Balance: Good Patient able to maintain balance without handhold support, limited postural sway Static Standing Balance: Fair Patient able to maintain balance with handhold support, may require occasional minimal assistance -HLM: 4: Move to chair / commode Learning/Educational Needs: Discharge Plan, Disease Process Goals for Plan of Care: Patient/Caregiver Goals: Go Home Able to Perform HEP with: Independent Rolling with: Independent Transfer Supine to/from Sit wi (more content not included)... Normal [facility] 25(OH)D3 SerPl-mCncon 2022 25-hydroxyvitamin D3 [Mass/Vol] 37.0 ng/mL Normal >=30.0 [facility] Comment on above: Order Comment: Speci men Type: BLOOD SPECIMENOrdering Facility: [facility] Address: [address] [place] [address] Result Comment: Clas sification of 25 [place] Vitamin D status: Deficiency: <= 20.0 ng/ml. Insufficiency: 21.0-29.0 ng/ml. Sufficiency: >= 30.0 ng/ml. Performed By: #### 1 989-3 ####[facility] LABORATORYCLIA [id number] [place] [address] [place] Basic metabolic 2000 panelon 06-25-2023 Anion gap [Moles/Vol] 9 mmol/L Normal 9-18 [facility] Comment on above: Order Comment: Speci men Type: BLOOD SPECIMENOrdering Facility: [facility] Address: [address] [place] [address] Performed By: #### 2 4321-2 ####[facility] LABORATORYCLIA [id number] [place] [address] [place] Calcium [Mass/Vol] 9.2 mg/dL Normal 8.5-10.2 [facility] Comment on above: Order Comment: Speci men Type: BLOOD SPECIMENOrdering Facility: [facility] Address: [address] [place] [address] Performed By: #### 2 4321-2 ####[facility] LABORATORYCLIA [id number] [address] [place] Chloride [Moles/Vol] 106 mmol/L High 97-105 [facility] Comment on above: Order Comment: Speci men Type: BLOOD SPECIMENOrdering Facility: [facility] Address: [address] [place] [address] Performed By: #### 2 4321-2 ####[facility] LABORATORYCLIA [id number] [address] [place] CO2 [Moles/Vol] 26 mmol/L Normal 22-30 [facility] Comment on above: Order Comment: Speci men Type: BLOOD SPECIMENOrdering Facility: [facility] Address: [address] [place] [address] Performed By: #### 2 4321-2 ####[facility] LABORATORYCLIA [id number] [address] [place] Creatinine [Mass/Vol] 0.95 mg/dL Normal 0.73-1.22 [facility] Comment on above: Order Comment: Speci men Type: BLOOD SPECIMENOrdering Facility: [facility] Address: [address] [place] [address] Performed By: #### 2 4321-2 ####[facility] LABORATORYCLIA [id number] [address] Creatinine and Glomerular filtration rate.predicted panel (S/P/Bld) 77 mL/min/1.73m??? Normal >=60 [facility] Comment on above: Order Comment: Speci men Type: BLOOD SPECIMENOrdering Facility: [facility] Address: [address] [place] [address] Result Comment: Franny mated Glomerular Filtration Rate (eGFR) is calculated using the 2020 CKD-EPI creatinine equation. This equation utilizes serum creatinine, sex, and age as parameters. The creatinine assay has traceable calibration to isotope dilution-mass spectrometry. Refer to KDIGO guidelines for clinical interpretation. In patients with unstable renal function, e.g. those with acute kidney injury, the eGFR may not accurately reflect actual GFR. Performed By: #### 2 4321-2 ####[facility]ATORYCLIA [id number] [place] [address] [place] Glucose [Mass/Vol] 84 mg/dL Normal 74-99 [facility] Comment on above: Order Comment: Speci men Type: BLOOD SPECIMENOrdering Facility: [facility] Address: [address] [place] [address] Result Comment: The [place] [employer] (ADA) provides guidance for cutoff values for fasting glucose and random glucose. The ADA defines fasting as no caloric intake for at least 8 hours. Fasting plasma glucose results between 100 to 125 mg/dL indicate increased risk for diabetes (prediabetes). Fasting plasma glucose results greater than or equal to 126 mg/dL meet the criteria for diagnosis of diabetes. In the absence of unequivocal hyperglycemia, results should be confirmed by repeat testing. In a patient with classic symptoms of hyperglycemia or hyperglycemic crisis, random plasma glucose results greater than or equal to 200 mg/dL meet the criteria for diagnosis of diabetes. Reference: Standards of Medical Care in Diabetes 2016, [place] [employer]. Diabetes Care. 2016.39(Suppl 1). Performed By: #### 2 4321-2 ####[facility] LABORATORYCLIA [id number] [place] [address] [place] Potassium [Moles/Vol] 3.6 mmol/L Low 3.7-5.1 [facility] Comment on above: Order Comment: Manuel valentine Type: BLOOD SPECIMENOrdering Facility: [facility] Address: [address] [place] [address] Performed By: #### 2 4321-2 ####[facility] LABORATORYCLIA [id number] [place] [address] [place] Sodium [Moles/Vol] 141 mmol/L Normal 136-144 [facility] Comment on above: Order Comment: Mynori men Type: BLOOD SPECIMENOrdering Facility: [facility] Address: [address] [place] [address] Performed By: #### 2 4321-2 ####[facility] LABORATORYCLIA [id number] [place] [id number] [place] [facility] Urea nitrogen [Mass/Vol] 30 mg/dL High 9-24 [facility] Comment on above: Order Comment: Speci men Type: BLOOD SPECIMENOrdering Facility: [facility] Address: [address] [place] [address] Performed By: #### 2 4321-2 ####[facility] LABORATORYCLIA [id number] [address] CBC panel Auto (Bld)on 06-25 Erythrocyte distribution width (RBC) [Ratio] 12.8 % Normal 11.5-15.0 [facility] Comment on above: Order Comment: Speci men Type: BLOOD SPECIMENOrdering Facility: [facility] Address: [address] [place] [address] Performed By: #### 5 8410-2 ####[facility] LABORATORYCLIA [id number] [address] Hematocrit (Bld) [Volume fraction] 43.2 % Normal 39.0-51.0 [facility] Comment on above: Order Comment: Speci men Type: BLOOD SPECIMENOrdering Facility: [facility] Address: [address] [place] [address] Performed By: #### 5 8410-2 ####[facility] LABORATORYCLIA [id number] [address] Hemoglobin (Bld) [Mass/Vol] 14.5 g/dL Normal 13.0-17.0 [facility] Comment on above: Order Comment: Speci men Type: BLOOD SPECIMENOrdering Facility: [facility] Address: [address] [place] [address] Performed By: #### 5 8410-2 ####[facility] LABORATORYCLIA [id number] [address] [place] [facility] MCH (RBC) [Entitic mass] 30.5 pg Normal 26.0-34.0 [facility] Comment on above: Order Comment: Speci men Type: BLOOD SPECIMENOrdering Facility: [facility] Address: [address] [place] [address] Performed By: #### 5 8410-2 ####[facility] LABORATORYCLIA [id number] [address] MCHC (RBC) [Mass/Vol] 33.6 g/dL Normal 30.5-36.0 [facility] Comment on above: Order Comment: Speci men Type: BLOOD SPECIMENOrdering Facility: [facility] Address: [address] [place] [address] Performed By: #### 5 8410-2 ####[facility] LABORATORYCLIA [id number] [address] [place] MCV (RBC) [Entitic vol] 90.8 fL Normal 80.0-100.[address] [facility] Comment on above: Order Comment: Speci men Type: BLOOD SPECIMENOrdering Facility: [facility] Address: [address] [place] [address] Performed By: #### 5 8410-2 ####[facility] LABORATORYCLIA [id number] [address] Nucleated RBC (Bld) [#/Vol] 10*3/uL Normal <0.01 [facility] Comment on above: Order Comment: Speci men Type: BLOOD SPECIMENOrdering Facility: [facility] Address: [address] [place] [address] Performed By: #### 5 8410-2 ####[facility] LABORATORYCLIA [id number] [address] [place] Platelet mean volume (Bld) [Entitic vol] 11.4 fL Normal 9.0-12.7 [facility] Comment on above: Order Comment: Speci men Type: BLOOD SPECIMENOrdering Facility: [facility] Address: [address] [place] [address] Performed By: #### 5 8410-2 ####[facility] LABORATORYCLIA [id number] [address] STATES OF [facility] Platelets (Bld) [#/Vol] 109 10*3/uL Low 150-400 [facility] Comment on above: Order Comment: Speci men Type: BLOOD SPECIMENOrdering Facility: [facility] Address: [address] [place] [address] Result Comment: No c lot detected. Performed By: #### 5 8410-2 ####[facility] LABORATORYCLIA [id number] [address] OF [facility] RBC (Bld) [#/Vol] 4.76 10*6/uL Normal 4.20-6.00 [facility] Comment on above: Order Comment: Speci men Type: BLOOD SPECIMENOrdering Facility: [facility] Address: [address] [place] [address] Performed By: #### 5 8410-2 ####[facility]ORATORYCLIA [id number] [address] STATES OF [facility] WBC (Bld) [#/Vol] 6.73 10*3/uL Normal 3.70-11.00 [facility] Comment on above: Order Comment: Speci men Type: BLOOD SPECIMENOrdering Facility: [facility] Address: [address] [place] [address] Performed By: #### 5 8410-2 ####[facility]ORATORYCLIA [id number] [address] OF [facility] Basic metabolic 2000 panelon 06-24-2023 Anion gap [Moles/Vol] 8 mmol/L Low 9-18 [facility] Comment on above: Order Comment: Speci men Type: BLOOD SPECIMENOrdering Facility: [facility] Address: [address] [place] [address] Performed By: #### 2 4321-2 ####[facility]ATORYCLIA [id number] [address] Calcium [Mass/Vol] 9.0 mg/dL Normal 8.5-10.2 [facility] Comment on above: Order Comment: Speci men Type: BLOOD SPECIMENOrdering Facility: [facility] Address: [address] [place] [address] Performed By: #### 2 4321-2 ####[facility]ORATORYCLIA [id number] [address] STATES OF [facility] Chloride [Moles/Vol] 105 mmol/L Normal 97-105 [facility] Comment on above: Order Comment: Speci men Type: BLOOD SPECIMENOrdering Facility: [facility] Address: [address] [place] [address] Performed By: #### 2 4321-2 ####[facility]ORATORYCLIA [id number] [address] OF [facility] CO2 [Moles/Vol] 27 mmol/L Normal 22-30 [facility] Comment on above: Order Comment: Speci men Type: BLOOD SPECIMENOrdering Facility: [facility] Address: [address] [place] [address] Performed By: #### 2 4321-2 ####[facility]ORATORYCLIA [id number] [address] OF [facility] Creatinine [Mass/Vol] 0.91 mg/dL Normal 0.73-1.22 [facility] Comment on above: Order Comment: Speci men Type: BLOOD SPECIMENOrdering Facility: [facility] Address: [address] [place] [address] Performed By: #### 2 4321-2 ####[facility]ORATORYCLIA [id number] [address] Creatinine and Glomerular filtration rate.predicted panel (S/P/Bld) 82 mL/min/1.73m??? Normal >=60 [facility] Comment on above: Order Comment: Speci men Type: BLOOD SPECIMENOrdering Facility: [facility] Address: [address] [place] [address] Result Comment: Franny mated Glomerular Filtration Rate (eGFR) is calculated using the 2020 CKD-EPI creatinine equation. This equation utilizes serum creatinine, sex, and age as parameters. The creatinine assay has traceable calibration to isotope dilution-mass spectrometry. Refer to KDIGO guidelines for clinical interpretation. In patients with unstable renal function, e.g. those with acute kidney injury, the eGFR may not accurately reflect actual GFR. Performed By: #### 2 4321-2 ####[facility]ATORYCLIA [id number] [place] [address] [place] Glucose [Mass/Vol] 111 mg/dL High 74-99 [facility] Comment on above: Order Comment: Manuel valentine Type: BLOOD SPECIMENOrdering Facility: [facility] Address: [address] [place] [address] Result Comment: The [place] Diabetes [employer] (ADA) provides guidance for cutoff values for fasting glucose and random glucose. The ADA defines fasting as no caloric intake for at least 8 hours. Fasting plasma glucose results between 100 to 125 mg/dL indicate increased risk for diabetes (prediabetes). Fasting plasma glucose results greater than or equal to 126 mg/dL meet the criteria for diagnosis of diabetes. In the absence of unequivocal hyperglycemia, results should be confirmed by repeat testing. In a patient with classic symptoms of hyperglycemia or hyperglycemic crisis, random plasma glucose results greater than or equal to 200 mg/dL meet the criteria for diagnosis of diabetes. Reference: Standards of Medical Care in Diabetes 2016, [place] [employer]. Diabetes Care. 2016.39(Suppl 1). Performed By: #### 2 4321-2 ####[facility]ORATORYCLIA [id number] [place] [address] [place] Potassium [Moles/Vol] 3.8 mmol/L Normal 3.7-5.1 [facility] Comment on above: Order Comment: Manuel valentine Type: BLOOD SPECIMENOrdering Facility: [facility] Address: [address] [place] [address] Performed By: #### 2 4321-2 ####[facility] LABORATORYCLIA [id number] [place] [id number] [place] Sodium [Moles/Vol] 140 mmol/L Normal 136-144 [facility] Comment on above: Order Comment: Manuel valentine Type: BLOOD SPECIMENOrdering Facility: [facility] Address: [address] [place] [address] Performed By: #### 2 4321-2 ####[facility][1]CLIA [id number] [place] [id number] [place] Urea nitrogen [Mass/Vol] 33 mg/dL High 9- [facility] Comment on above: Order Comment: Speci men Type: BLOOD SPECIMENOrdering Facility: [facility] Address: [address] [place] [address] Performed By: #### 2 4321-2 ####[facility] LABORATORYCLIA [id number] [place] [id number] [facility] CBC panel Auto (Bld)on 06-24 Erythrocyte distribution width (RBC) [Ratio] 13.0 % Normal 11.5-15.0 [facility] Comment on above: Order Comment: Speci men Type: BLOOD SPECIMENOrdering Facility: [facility] Address: [address] [place] [address] Performed By: #### 5 8410-2 ####[facility] LABORATORYCLIA [id number] [address] Hematocrit (Bld) [Volume fraction] 41.5 % Normal 39.0-51.0 [facility] Comment on above: Order Comment: Speci men Type: BLOOD SPECIMENOrdering Facility: [facility] Address: [address] [place] [address] Performed By: #### 5 8410-2 ####[facility] LABORATORYCLIA [id number] [address] STATES OF [facility] Hemoglobin (Bld) [Mass/Vol] 14.0 g/dL Normal 13.0-17.0 [facility] Comment on above: Order Comment: Speci men Type: BLOOD SPECIMENOrdering Facility: [facility] Address: [address] [place] [address] Performed By: #### 5 8410-2 ####[facility] LABORATORYCLIA [id number] [address] MCH (RBC) [Entitic mass] 30.8 pg Normal 26.0-34.0 [facility] Comment on above: Order Comment: Speci men Type: BLOOD SPECIMENOrdering Facility: [facility] Address: [address] [place] [address] Performed By: #### 5 8410-2 ####[facility] LABORATORYCLIA [id number] [address] MCHC (RBC) [Mass/Vol] 33.7 g/dL Normal 30.5-36.0 [facility] Comment on above: Order Comment: Speci men Type: BLOOD SPECIMENOrdering Facility: [facility] Address: [address] [place] [address] Performed By: #### 5 8410-2 ####[facility]ORATORYCLIA [id number] [address] MCV (RBC) [Entitic vol] 91.2 fL Normal 80.0-100.[address] [facility] Comment on above: Order Comment: Speci men Type: BLOOD SPECIMENOrdering Facility: [facility] Address: [address] [place] [address] Performed By: #### 5 8410-2 ####[facility]ORATORYCLIA [id number] [address] OF [facility] Nucleated RBC (Bld) [#/Vol] 10*3/uL Normal <0.01 [facility] Comment on above: Order Comment: Speci men Type: BLOOD SPECIMENOrdering Facility: [facility] Address: [address] [place] [address] Performed By: #### 5 8410-2 ####[facility] LABORATORYCLIA [id number] [address] Platelet mean volume (Bld) [Entitic vol] 11.0 fL Normal 9.0-12.7 [facility] Comment on above: Order Comment: Speci men Type: BLOOD SPECIMENOrdering Facility: [facility] Address: [address] [place] [address] Performed By: #### 5 8410-2 ####[facility]ORATORYCLIA [id number] [address] [place] Platelets (Bld) [#/Vol] 96 10*3/uL Low 150-400 [place] Comment on above: Order Comment: Speci men Type: BLOOD SPECIMENOrdering Facility: [facility] Address: [address] [place] [address] Result Comment: No c lot detected. Performed By: #### 5 8410-2 ####[facility] LABORATORYCLIA [id number] [address] RBC (Bld) [#/Vol] 4.55 10*6/uL Normal 4.20-6.00 [facility] Comment on above: Order Comment: Speci men Type: BLOOD SPECIMENOrdering Facility: [facility] Address: [address] [place] [address] Performed By: #### 5 8410-2 ####[facility] LABORATORYCLIA [id number] [address] OF [facility] WBC (Bld) [#/Vol] 8.35 10*3/uL Normal 3.70-11.00 [facility] Comment on above: Order Comment: Speci men Type: BLOOD SPECIMENOrdering Facility: [facility] Address: [address] [place] [address] Performed By: #### 5 8410-2 ####[facility] LABORATORYCLIA [id number] [address] CONSULT PROGon 06-24-2023 CONSULT PROG HNO ID: [id number] Author: Marily Burciaga APRN.[employer] Service: Neurosurgery Author Type: Nurse Practitioner Type: Consult Progress Note Filed: 06/24/2023 9:35 AM Note Text: Neurosurgery Progress Note SERVICE DATE: 06/24/2023 SUBJECTIVE: NAEON. Denies headache, dizziness, n/v. Endorses left ankle pain d/t post operative pain, ortho following. OBJECTIVE: Vitals: Temp (24hrs), Av.7 ?C (98.1 ?F), Min:36.5 ?C (97.7 ?F), Max:37.1 ?C (98.7 ?F) BP 150/80 Pulse (!) 56 Temp 36.6 ?C (97.9 ?F) (Oral) Resp 18 Ht 182.9 cm (6' 0.01") Wt 98.3 kg (216 lb 11.4 oz) SpO2 94% BMI 29.38 kg/m? O2 Therapy: Room Air IANDO: Date 06/23/23 07 - 06/24/23 0659 06/24/23 07 - 06/25/23 0659 Shift [id number] 4617-3573 0885-5019 24 Hour Total 0805-6181 8672-9406 8482-2095 24 Hour Total INTAKE IV 700 100 [...] 98.1 98.1 98.1 98.3 98.3 98.3 98.3 MEDICATIONS Current Facility-Administered Medications Medication Dose Route Frequency [...] 106* 118* INR -- -- -- 1.1 Exam: GENERAL: Awake and alert; NAD; cooperative; pleasant NEURO: Orientedx3; speech clear and fluent; DEY; no arm drift STRENGTH: 5/5 BUE, RLE, left ankle immobilized, hip flex/ext 5/5 HEENT: Normocephalic; atraumatic; perrl/eomi; no facial droop LUNGS: Unlabored breathing CARDIAC: Rate and rhythm as above ABDOMEN: Soft, non-tender, non-distended EXTREMITIES: No deformities, No edema SKIN: Skin color normal; Temperature normal; no rashes or lesions ASSESSMENT AND PLAN: Active Hospital Problems Diagnosis Date Noted Subdural hematoma (HCC) 06/21/2023 Fall 06/22/2023 Thrombocytopenia, unspecified (HCC) 2017 Essential hypertension 02/22/2006 Mr. Kumar is a 88 year old male with PMHx significant for TIA (on ASA), who presents as a fall while hiking, found to have left tentorial and midline falx SDH - Neuro as above- intact - CTH stable; total CT since admission x3 - Neuro checks Q4hrs - Keppra 500mg BID for 14 doses - hold home ASA until 2 week follow up - DVT PPx; SCDs, ok for hep SQ 48hrs post stable scan (06/24) - follow up with Dr. Junior in 2 weeks with CTH- requested - dispo: pending Parts of this note may have been copied from one of my previous notes and remain pertinent. The documentation has been reviewed and edited as necessary to support the clinical decision making for today's visit. SIGNATURE: Marily Burciaga APRN.CNP PATIENT NAME: Deniz Kumar DATE: June 24, 2023 TIME: 9:28 AM Pager: [phone] Normal [facility] THERAPY NTon 06-24-2023 THERAPY NT HNO ID: [id number] Author: Ludivina Barcenas PT Service: Physical Therapy Author Type: Physical Therapist Type: Therapy (PT/OT/Speech/Resp) Filed: 06/24/2023 1:50 PM Note Text: Physical Therapy Evaluation SERVICE DATE: 06/24/2023 SERVICE TIME: 1200 to 1245 ROOM: [place] [address] Recommended Discharge Disposition: Subacute/SNF Recommended Discharge Disposition Comments: Patient would benefit from fdc facility to enhance mobility while maintaining nonweightbearing of left lower extremity. Recommended Discharge Disposition Due to: Patient requires daily, facility-based rehabilitation from at least one discipline due to:, decline in functional status requiring daily skilled care PT 6 Clicks Score: 16 Patient struggles at times to maintain nonweightbearing left lower extremity. Really wants to go home but seems unclear how he would manage all of his ADLs by himself. Recommend fdc to promote independence with functional mobility while maintaining nonweightbearing left lower extremity. Precautions/Activity Restrictions: Fall Risk, Bed/Chair Alarm, Weight Bearing Restrictions Isolation Type: None Extremity With Weight Bearing Restricted: Left Lower Extremity Left Lower Extremity Weight Bearing Status: NWB Current Hospital Course: Pt admitted for fall while hiking, + L ankle fx with syndesmotic instability and L SDH Reason for Hospital Admission: fall while hiking Relevant Past Medical History: BPH, urinary urgency, diverticulosis Response to Therapy Interventions: Good Participation in Activities Assessment Comments: Patient with a lack of insight to going home alone while being nonweightbearing left lower extremity. Stuggles at times to maintain nonweightbearing with mobility Continued Skilled Needs Due to: Functional Mobility/Skill Impairments Physical Therapy Problem List: Safety Deficits, Decreased Activity Tolerance, Decreased Range Of Motion, Functional Mobility Impairment, Decreased Strength, Balance Impaired Treatment Interventions: Education, Strengthening, Functional Mobility Training, Balance Training, Neuromuscular Re-education Home Environment Patient Lives With: Self/Alone Assistance Available: PRN Entry To Home: Stairs, Without Rail Number Of Stairs Into Home: 3 Number Of Stairs To Bed/Bath: 0 Tub/Shower Type: tub/shower Laundry: in mobile home Equipment Owned: (walking stick) Prior Functional Level: Within Functional Limits Prior Functional Level Comments: Pt rpts very active at baseline, 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 Independent with ADLs/IADLs was hiking with hiking stick due to weakness he thinks from his statin but wasnt at time of fall/injury Subjective: To home today but agreed to therapy Range of Motion: WFL Except, ROM Limitation Comments ROM Limitation Comments: Within normal limits except left ankle which is wrapped and in a boot Strength: WFL Except, Strength Limitation Comments Strength Limitation Comments: Able to long arc quad with left leg all strength within functional limits except left ankle CURRENT FUNCTIONAL STATUS: Most recent performance Current Functional Mobility Assist Level Additional Information Rolling Supine to Sit Minimal Assistance, Additional Information Cues to use upper extremity Sit to Supine Minimal Assistance, Additional Information Assessed for left lower extremity Scooting Sit to Stand Minimal Assistance, Additional Information Used to use walker correctly, assist to stand Stand to Sit Minimal Assistance Bed to Chair Toilet/Commode Gait Minimal Assistance, Additional Information Gait Device: Wheeled Walker Gait Distance (feet): 10x1 Fatigues quickly while maintaining nonweightbearing left lower extremity occasionally. Puts foot down at times. Requires rest breaks Stairs Curb Step Car Transfer Blank catalan indicate activity not attempted General Deviations/Observations : Antalgic gait Balance: Static Sitting, Static Standing Static Sitting Balance: Good Patient able to maintain balance without handhold support, limited postural sway Static Standing Balance: Fair Patient able to maintain balance with handhold support, may require occasional minimal assistance JH-HLM: 6: Walk 10 steps or more Learning/Educational Needs: Discharge Plan, Disease Process Goals for Plan of Care: Patient/Caregiver Goals: Go Home Able to Perform HEP with: Independent Rolling with: Independent Transfer Supine to/from Sit with: Supervision Transfer Sit to/from Stand with: Supervision Ambulate with: Supervision Distance: 50x2 Device: Wheeled Walker Rehab Potential: Fair Patient will be discontinued from Physical Therapy when no further skilled needs are identified in this setting. PLAN: PT Frequency: 5 Times Per Week (2-4) Plan of Care developed with: Patient TREATMENT INTERVENTIONS: Therapy Diagnosis: Reduced mobility-other In (more content not included)... Normal [facility] THERAPY NT HNO ID: [id number] Author: Michelle El, OTR/L Service: Occupational Therapy Author Type: Occupational Therapist Type: Therapy (PT/OT/Speech/Resp) Filed: 06/24/2023 11:20 AM Note Text: Occupational Therapy Evaluation SERVICE DATE: 06/24/2023 SERVICE TIME: 904 to 932 ROOM: [place] [address] Recommended Discharge Disposition: Subacute/SNF Recommended Discharge Disposition Comments: Pt not able to transfer or safely complete ADLs without assist at this time Recommended Discharge Disposition Due to: Patient requires daily, facility-based rehabilitation from at least one discipline due to:, decline in functional status requiring daily skilled care, new / worsened cognitive deficits related to current diagnosis, ongoing intervention of multiple therapy disciplines OT 6 Clicks Score: 16 Facilitated supine to edge of bed with a little assist. Assisted to stand to wheeled walker with cues to maintain nonweightbearing of left lower extremity. Provided significant assist and cueing for sidestepping along edge of bed while maintaining nonweightbearing left lower extremity. Assisted to stand and just pivot to chair with therapist and gait belt assist. Chair alarm set up in chair. Discussed what functional activity patient would need to be able to tolerate independently to be successful at home and how patient was significantly below that at this time. Educated on recommendation for rehab at this time. Administered 4AT which is an assessment for delirium and cognitive impairment. Pt scored 0. A score of 4 or above suggests possible delirium +/- cognitive impairment. A score of 1-3 suggests possible cognitive impairment. A sore of 0 suggests that delirium or severe cognitive impairment is unlikely. This not a diagnostic tool, more detailed assessment of mental status may be required to reach a diagnosis. Precautions/Activity Restrictions: Fall Risk, Bed/Chair Alarm, Weight Bearing Restrictions Isolation Type: None Extremity With Weight Bearing Restricted: Left Lower Extremity Left Lower Extremity Weight Bearing Status: NWB (in boot) Current Hospital Course: Pt admitted for fall while hiking, + L ankle fx with syndesmotic instability and L SDH Reason for Hospital Admission: fall while hiking Relevant Past Medical History: BPH, urinary urgency, diverticulosis Response to Therapy Interventions: Good Participation in Activities, Improved Tolerance for Activity, Low Activity Tolerance, Multiple Ongoing Medical Issues, Requires Additional Time to Complete Activities, Slow Progression with ADLs/IADLs Continued Skilled Needs Due to: Safety Concerns, Functional Impairment, Cognitive Deficits Occupational Therapy Problem List: Education Deficit, Safety Deficits, Impaired Self Care, Functional Mobility Impairment, Decreased Strength, Balance Impaired, Decreased Activity Tolerance Cognition/Communication Deficits Responsiveness: Alert, Awake Follows Commands: 2-step Commands, Cueing Needed Cueing to Follow Commands: Minimum Executive Function Deficits: Safety Awareness, Problem Solving, Insight to Deficits, Judgement Judgement Deficit: Minimal impairment Insight to Deficits: Minimal impairment Problem Solving Deficit: Minimal impairment Safety Awareness Deficit: Minimal impairment Cognitive Clinical Tests and Screens: 4AT Screening 4AT Screening Assess Alertness: Your observation to asses for excessive drowsiness or agitation. If asleep, attempt to wake with speech or gentle touch on shoulder. You may ask the patient to state their name and address to assist rating.: Normal (fully alert, but not agitated, throughout assessment) Assess orientation: Ask patient age, date of , current year, and current location: No mistakes Asess Attention: Ask patient to "tell me the months of the year backwards order, starting with May": Able to state 7+ months correctly Evidence of acute changes or fluctuating mental status (changes in memory, alertness) or behavior (paranoia, hallucinations) in last 2 weeks: No 4AT Score: 0 Delirium Positive/Negative: Negative Treatment Interventions: Education, Self Care/Home Management, Functional Mobility Training, Balance Training Home Environment Patient Lives With: Self/Alone Assistance Available: PRN (sister and TINA in town) Entry To Home: Stairs, Without Rail Number Of Stairs Into Home: 3 Number Of Stairs To Bed/Bath: 0 Tub/Shower Type: tub/shower Laundry: in mobile home Equipment Owned: (walking stick) Prior Functional Level: Within Functional Limits Prior Functional Level Comments: Pt rpts very active at baseline, 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 Independent with ADLs/IADLs was hiking with hiking stick due to weakness he thinks from his statin but wasnt at time of fall/injury Occupational Factors Life Roles: Family Member, Friend Identified Strengths: Involvement in Hobbies/Leisure Acti (more content not included)... Normal [facility] ALLIED HEALTHon 06-23-2023 ALLIED HEALTH HNO ID: [id number] Author: Robina Lord RT(R) Service: ? Author Type: Technologist Type: Allied Health Filed: 06/23/2023 1:54 PM Note Text: Radiology Service Progress Note PATIENT NAME: Deniz Kumar DATE OF SERVICE: June 23, 2023 TIME: 1:53 PM PATIENT IDENTITY VERIFICATION COMPLETED USING TWO (2) IDENTIFIERS: Name and Date of confirmed by patient verbally and Name and Date of confirmed by identification band. FALL SCREENING: Has the patient had 2 falls in the last year or 1 fall with injury or currently using an Ambulatory Assistive Device (Walker, Cane, Wheelchair, Crutches, etc.)? Inpatient: Screened on floor PATIENT GENDER DATA: Male PATIENT RELEVANT IMPLANT DATA REVIEWED: Not Applicable RADIOLOGY DEPARTMENT: CT; Exam(s) Completed: Brain PERIPHERAL IV DATA: Inpatient: see LDA documentation SIGNED BY: RT Geetha(R) June 23, 2023 1:53 PM Normal [facility] ANES POSTPROC EVALon 023 ANES POSTPROC EVAL HNO ID: [id number] Author: Renaldo Mccurdy MD Service: Anesthesiology Author Type: Anesthesiologist Type: Anesthesia Postprocedure Evaluation Filed: 06/23/2023 11:12 AM Note Text: POST ANESTHESIA EVALUATION NOTE : 1935 Procedure Summary Date: 06/23/23 Room / Location: [facility] OR / [facility] OR Anesthesia Start: 757 Anesthesia Stop: 914 Procedures: OPEN REDUCTION DISTAL FIBULAR FX. W/ INTERNAL FIXATION WHEN PERFORMED (Left: Ankle) ORIF SYNDESMOSIS LOWER EXTREMITY (Left: Ankle) Diagnosis: Fracture of distal fibula (Fracture of distal fibula [S82.839A]) Surgeons: Bonifacio Valdez MD Responsible Provider: Renaldo Mccurdy MD Anesthesia Type: general ASA Status: 3 Anesthesia Type: general Airway Type: LMA Last Vitals Vitals Value Taken Time BP 161/91 06/23/23 1015 Temp 36.5 ?C (97.7 ?F) 06/23/23 1009 HR SpO2 64 06/23/23 1020 Resp 20 06/23/23 1020 SpO2 94 % 06/23/23 1020 Vitals shown include unfiled device data. Post Anesthesia Patient Status Patient Evaluation: PACU. PACU/ICU Patient Condition: stable. Anticipated Disposition: inpatient floor planned admission. Neurological Status: aware and responsive. Pulmonary Status: breathing comfortably on supplemental oxygen Airway Control: returned to baseline unsupported. Cardiovascular Status: stable. Pain Management: clinically adequate - multimodal analgesia pain management approach Postoperative Hydration: acceptable. Intraoperative Events: no significant anesthesia events Recommendation: continue current plan of care. Anesthesia Observations No Documentation SIGNATURE: Renaldo Mccurdy MD PATIENT NAME: Deniz Kumar DATE: June 23, 2023 TIME: 11:12 AM CSN: [id number] [facility] ANES PRE-OPon 06-23-2023 ANES PRE-OP HNO ID: [id number] Author: Renaldo Mccurdy MD Service: Anesthesiology Author Type: Anesthesiologist Type: Anesthesia Preprocedure Evaluation Filed: 06/23/2023 7:55 AM Note Text: ANESTHESIOLOGY DAY OF SURGERY NOTE : 1935 Procedure Information Date/Time: 06/23/23 0800 Procedures: OPEN REDUCTION DISTAL FIBULAR FX. W/ INTERNAL FIXATION WHEN PERFORMED (Left: Ankle) ORIF SYNDESMOSIS LOWER EXTREMITY (Left: Ankle) Location: [facility] OR / [facility] OR Surgeons: Bonifacio Valdez MD Estimated body mass index is 29.3 kg/m? as calculated from the following: Height as of this encounter: 182.9 cm (6' 0.01"). Weight as of this encounter: 98 kg (216 lb 0.8 oz). Most recent hematocrit and potassium results: Hematocrit 40.3 06/23/2023 Potassium 3.9 06/23/2023 Relevant Problems CARDIO (+) Essential hypertension #Fall c/b fibular fx presenting for ORIF #TIAs per patient, no residual deficits, >1yr ago I - PHYSICAL EVALUATION AIRWAY Patient intubated: No. Tracheostomy tube not present Mallampati: II. TM distance: >3 FB. Neck ROM: full ROM without neurological symptoms. Mouth opening: adequate. Short neck: no. Thick neck: no DENTAL Dental findings: poor dentition. II - ANESTHESIA PLAN ASA Score: 3 Anesthetic Plan: general Airway type: LMA NPO Status: adequate [employer] Monitoring Plan Monitoring plan: standard ASA. Post Procedure Analgesic Plan Postoperative analgesic plan: parenteral or oral opioids, multimodal analgesia and per surgical service. Informed Consent Anesthetic risks, benefits, alternatives, personnel and consent discussed: yes. Patient / Responsible Alliance Party agrees to proceed: yes Patient / Surrogate agrees to blood products: Yes Vitals Value Taken Time BP 154/79 06/23/23 0709 Pulse Resp Temp SpO2 96 % 06/23/23 0709 Vitals shown include unfiled device data. Facility-Administered Medications as of 06/23/2023 Medication Dose Route Frequency - [Held on Transfer] oxyCODONE IR 5 mg tab(s) (ROXICODONE) 5 mg ORAL q 6 H PRN - [Held on Transfer] NaCl 0.9% iv flush bag 20 mL INTRAVENOUS PRN - [COMPLETED] desmopressin 40 mcg in NaCl 0.9% 50 mL (DDAVP) 0.4 mcg/kg/dose INTRAVENOUS ONCE - [Held on Transfer] levETIRAcetam 500 mg tab(s) (KEPPRA) 500 mg ORAL BID - [Held on Transfer] pravastatin 20 mg tab(s) (PRAVACHOL) 20 mg ORAL AT BEDTIME - [Held on Transfer] acetaminophen 1,000 mg tab(s) (TYLENOL) 1,000 mg ORAL/FEEDING TUBE q 6 H Outpatient Medications as of 06/23/2023 Medication Sig - pravastatin (PRAVACHOL) 20 mg tablet Take 1 tablet by mouth at bedtime - lisinopril (ZESTRIL) 20 mg tablet Take 1 tablet by mouth once daily. - doxazosin (CARDURA) 1 mg tablet Take 1 tablet by mouth once daily. - finasteride (PROSCAR) 5 mg tablet Take 1 tablet by mouth once daily. - Lactobacillus acidophilus (PROBIOTIC) 10 billion cell cap Take 1 capsule by mouth. - LOW-DOSE ASPIRIN ORAL Take 81 mg by mouth twice daily. - Melatonin 5 mg cap Take 5 mg by mouth daily at bedtime. - MULTIVITAMIN TAB Take one(1) tablet daily. I have interviewed and examined the patient. I have reviewed the medical record and/or the pre-anesthesia evaluation, pertinent labs, and test results. This contains updated information obtained within 48 hours of Surgery/Procedure. SIGNATURE: Renaldo Mccurdy MD PATIENT NAME: Deniz Kumar DATE: June 23, 2023 TIME: 7:10 AM CSN: [id number] [facility] BRIEF OP NOTon 06-23-2023 BRIEF OP NOT HNO ID: [id number] Author: Uche Vasquez MD Service: Orthopaedic Surgery Author Type: Resident Type: Brief Op Note Filed: 06/23/2023 9:17 AM Note Text: BRIEF OPERATIVE / PROCEDURE NOTE LOG ID: [id number] SURGERY/PROCEDURE DATE: 06/23/2023 INCISION/PROCEDURE START TIME: 8:22 AM INCISION CLOSE/PROCEDURE END TIME: 9:08 AM SURGEON(S)/PROCEDURALIS T(S) AND CLINIC DIRECTOR(S): Surgeon(s) and Role: * Bonifacio Valdez MD - Primary * Uche Vasquez MD - Resident - Assisting No Additional Staff SURGERY/PROCEDURE(S): ORIF left bimalleolar ankle fracture equivalent ANESTHESIA: General FLUIDS: 700cc ESTIMATED BLOOD LOSS: 15 mls ANTIBIOTICS: Ancef SPECIMENS: None COMPLICATIONS: None Post-Operative Plan: - Trauma primary - Pain control - Abx: Ancef 2g q8hrs x2 doses - Weight bearing status: NWB LLE - Walking boot to LLE - Diet: regular - Dressing: soft dressing - Rest, ice, elevate LLE - DVT ppx: per trauma - Drain: none - Imaging: post op XR of left ankle in PACU - PT/OT - appreciate evaluation and recommendations - Dispo: ok for discharge from orthopedic standpoint - Follow up with Dr. Valdez in 2 weeks Uche Vasquez MD Orthopaedic Surgery - PGY 3 9:16 AM 06/23/2023 Pager #[phone] Normal [facility] Basic metabolic 2000 panelon 06-23-2023 Anion gap [Moles/Vol] 8 mmol/L Low 9-18 [facility] Comment on above: Order Comment: Speci men Type: BLOOD SPECIMENOrdering Facility: [facility] Address: [address] [place] [address] Performed By: #### 2 4321-2 ####[facility] LABORATORYCLIA [id number] [place] [id number] [place] Calcium [Mass/Vol] 8.9 mg/dL Normal 8.5-10.2 [facility] Comment on above: Order Comment: Speci men Type: BLOOD SPECIMENOrdering Facility: [facility] Address: [address] [place] [address] Performed By: #### 2 4321-2 ####[facility] LABORATORYCLIA [id number] [address] STATES OF [facility] Chloride [Moles/Vol] 108 mmol/L High 97-105 [facility] Comment on above: Order Comment: Speci men Type: BLOOD SPECIMENOrdering Facility: [facility] Address: [address] [place] [address] Performed By: #### 2 4321-2 ####[facility] LABORATORYCLIA [id number] [address] OF [facility] CO2 [Moles/Vol] 25 mmol/L Normal 22-30 [facility] Comment on above: Order Comment: Speci men Type: BLOOD SPECIMENOrdering Facility: [facility] Address: [address] [place] [address] Performed By: #### 2 4321-2 ####[facility] LABORATORYCLIA [id number] [address] Creatinine [Mass/Vol] 0.89 mg/dL Normal 0.73-1.22 [facility] Comment on above: Order Comment: Speci men Type: BLOOD SPECIMENOrdering Facility: [facility] Address: [address] [place] [address] Performed By: #### 2 4321-2 ####[facility] LABORATORYCLIA [id number] [address] Creatinine and Glomerular filtration rate.predicted panel (S/P/Bld) 83 mL/min/1.73m??? Normal >=60 [facility] Comment on above: Order Comment: Speci men Type: BLOOD SPECIMENOrdering Facility: [facility] Address: [address] [place] [address] Result Comment: Franny mated Glomerular Filtration Rate (eGFR) is calculated using the 2020 CKD-EPI creatinine equation. This equation utilizes serum creatinine, sex, and age as parameters. The creatinine assay has traceable calibration to isotope dilution-mass spectrometry. Refer to KDIGO guidelines for clinical interpretation. In patients with unstable renal function, e.g. those with acute kidney injury, the eGFR may not accurately reflect actual GFR. Performed By: #### 2 4321-2 ####[facility] LABORATORYCLIA [id number] [place] [address] [place] Glucose [Mass/Vol] 99 mg/dL Normal 74-99 [facility] Comment on above: Order Comment: Speci meme Type: BLOOD SPECIMENOrdering Facility: [facility] Address: [address] [place] [address] Result Comment: The [place] [employer] (ADA) provides guidance for cutoff values for fasting glucose and random glucose. The ADA defines fasting as no caloric intake for at least 8 hours. Fasting plasma glucose results between 100 to 125 mg/dL indicate increased risk for diabetes (prediabetes). Fasting plasma glucose results greater than or equal to 126 mg/dL meet the criteria for diagnosis of diabetes. In the absence of unequivocal hyperglycemia, results should be confirmed by repeat testing. In a patient with classic symptoms of hyperglycemia or hyperglycemic crisis, random plasma glucose results greater than or equal to 200 mg/dL meet the criteria for diagnosis of diabetes. Reference: Standards of Medical Care in Diabetes 2016, [place] [employer]. Diabetes Care. 2016.39(Suppl 1). Performed By: #### 2 4321-2 ####[facility] LABORATORYCLIA [id number] [place] [address] [place] Potassium [Moles/Vol] 3.9 mmol/L Normal 3.7-5.1 [facility] Comment on above: Order Comment: Mynori meme Type: BLOOD SPECIMENOrdering Facility: [facility] Address: [address] [place] [address] Performed By: #### 2 4321-2 ####[facility] LABORATORYCLIA [id number] [place] [id number] [place] Sodium [Moles/Vol] 141 mmol/L Normal 136-144 [facility] Comment on above: Order Comment: Manuel meme Type: BLOOD SPECIMENOrdering Facility: [facility] Address: [address] [place] [address] Performed By: #### 2 4321-2 ####[facility] LABORATORYCLIA [id number] [address] [facility] Urea nitrogen [Mass/Vol] 37 mg/dL High 03-24 [facility] Comment on above: Order Comment: Speci men Type: BLOOD SPECIMENOrdering Facility: [facility] Address: [address] [place] [address] Performed By: #### 2 4321-2 ####[facility] LABORATORYCLIA [id number] [address] STATES OF [facility] CBC panel Auto (Bld)on 06-23 Erythrocyte distribution width (RBC) [Ratio] 13.0 % Normal 11.5-15.0 [facility] Comment on above: Order Comment: Speci men Type: BLOOD SPECIMENOrdering Facility: [facility] Address: [address] [place] [address] Performed By: #### 5 8410-2 ####[facility] LABORATORYCLIA [id number] [address] [place] OF [facility] Hematocrit (Bld) [Volume fraction] 40.3 % Normal 39.0-51.0 [facility] Comment on above: Order Comment: Speci men Type: BLOOD SPECIMENOrdering Facility: [facility] Address: [address] [place] [address] Performed By: #### 5 8410-2 ####[facility] LABORATORYCLIA [id number] [address] STATES OF [facility] Hemoglobin (Bld) [Mass/Vol] 13.7 g/dL Normal 13.0-17.0 [facility] Comment on above: Order Comment: Speci men Type: BLOOD SPECIMENOrdering Facility: [facility] Address: [address] [place] [address] Performed By: #### 5 8410-2 ####[facility] LABORATORYCLIA [id number] [address] [place] [facility] MCH (RBC) [Entitic mass] 31.3 pg Normal 26.0-34.0 [facility] Comment on above: Order Comment: Speci men Type: BLOOD SPECIMENOrdering Facility: [facility] Address: [address] [place] [address] Performed By: #### 5 8410-2 ####[facility] LABORATORYCLIA [id number] [address] MCHC (RBC) [Mass/Vol] 34.0 g/dL Normal 30.5-36.0 [facility] Comment on above: Order Comment: Speci men Type: BLOOD SPECIMENOrdering Facility: [facility] Address: [address] [place] [address] Performed By: #### 5 8410-2 ####[facility] LABORATORYCLIA [id number] [address] [place] MCV (RBC) [Entitic vol] 92.0 fL Normal 80.0-100.0 [facility] Comment on above: Order Comment: Speci men Type: BLOOD SPECIMENOrdering Facility: [facility] Address: [address] [place] [address] Performed By: #### 5 8410-2 ####[facility] LABORATORYCLIA [id number] [address] STATES OF [facility] Nucleated RBC (Bld) [#/Vol] 10*3/uL Normal <0.01 [facility] Comment on above: Order Comment: Speci men Type: BLOOD SPECIMENOrdering Facility: [facility] Address: [address] [place] [address] Performed By: #### 5 8410-2 ####[facility] LABORATORYCLIA [id number] [address] Platelet mean volume (Bld) [Entitic vol] 11.0 fL Normal 9.0-12.7 [facility] Comment on above: Order Comment: Speci men Type: BLOOD SPECIMENOrdering Facility: [facility] Address: [address] [place] [address] Performed By: #### 5 8410-2 ####[facility] LABORATORYCLIA [id number] [address] [place] Platelets (Bld) [#/Vol] 99 10*3/uL Low 150-400 [place] Comment on above: Order Comment: Speci men Type: BLOOD SPECIMENOrdering Facility: [facility] Address: [address] [place] [address] Result Comment: No c lot detected. Performed By: #### 5 8410-2 ####[facility] LABORATORYCLIA [id number] [address] OF [facility] RBC (Bld) [#/Vol] 4.38 10*6/uL Normal 4.20-6.00 [facility] Comment on above: Order Comment: Speci men Type: BLOOD SPECIMENOrdering Facility: [facility] Address: [address] [place] [address] Performed By: #### 5 8410-2 ####[facility] LABORATORYCLIA [id number] [address] WBC (Bld) [#/Vol] 7.13 10*3/uL Normal 3.70-11.00 [facility] Comment on above: Order Comment: Speci men Type: BLOOD SPECIMENOrdering Facility: [facility] Address: [address] [place] [address] Performed By: #### 5 8410-2 ####[facility] LABORATORYCLIA [id number] [address] CONSULT PROGon 06-23-2023 CONSULT PROG HNO ID: [id number] Author: Lynda Holman PA-C Service: Neurosurgery Author Type: Physician Supervisor Cemetery Workers Type: Consult Progress Note Filed: 06/23/2023 12:04 PM Note Text: Neurosurgery Progress Note SERVICE DATE: 06/23/2023 SUBJECTIVE: Status post left ankle ORIF. No new complaints, is in good spirits OBJECTIVE: Vitals: Temp (24hrs), Av.5 ?C (97.7 ?F), Min:36.4 ?C (97.5 ?F), Max:36.6 ?C (97.9 ?F) BP 151/88 Pulse (!) 51 Temp 36.5 ?C (97.7 ?F) (Oral) Resp 18 Ht 182.9 cm (6' 0.01") Wt 98 kg (216 lb 0.8 oz) SpO2 93% BMI 29.30 kg/m? O2 Therapy: Room Air Physical Exam: General - Alert and Oriented x3, cooperative, appropriate. Respiratory- even, unlabored GI - abdomen soft, non-tender, non-distended HEENT - Normocephalic. Atraumatic. Neuro - GCS:Opens eyes spontaneously (4),Oriented (5),Obeys motor commands (6) =15 PERRLA, makes eye contact, TM, FS, EOMI Speech: appropriate Motor: DEY RUE: 5/5 LUE: 55 RLE: 5 LLE: antigravity, deferred testing due to ankle surgery Sensation: SILT Drift: NT Extremities- Grossly normal. Symmetrical. No edema, deformity, coloration changes. Pulses- 2+ DP, 2+ radial Labs: CBC, Coags, BMP, Mg, Phos Recent Labs 06/23/23 0453 06/22/23 0423 06/21/23 1619 WBC 7.13 6.20 7.52 HB 13.7 13.1 15.5 HCT 40.3 38.2* 45.3 PLT 99* 106* 118* INR -- -- 1.1 APTT -- -- 26.3 NA 141 140 141 K 3.9 3.8 3.6* CHLOR 108* 106* 109* CO2 25 25 23 BUN 37* 35* 24 CREAT 0.89 0.84 0.74 GLUC 99 121* 112* CA 8.9 8.6 8.6 MG -- 1.8 -- P -- 3.2 -- Cardiac Enzymes ABGs Diagnostic tests reviewed for today's visit: Most recent labs and imaging results. 06/22/2023 CT Brain ASSESSMENT AND PLAN: Active Hospital Problems Diagnosis Date Noted Subdural hematoma (HCC) 06/21/2023 Fall 06/22/2023 Thrombocytopenia, unspecified (HCC) 2017 Essential hypertension 02/22/2006 Mr. Kumar is a 88 year old male with PMHx significant for TIA (on ASA), who presents as a fall while hiking, found to have left tentorial and midline falx SDH -Neuro as above -Imaging: CTH today ordered, will review after complete -Pain control: per primary -DVT PPX: SCDs Medication and Non-Pharmacologic VTE Prophylaxis/Anticoagula nts 12/22/23 1930 vte pharmacologic prophylaxis contraindicated (fl,oh) 06/21/231929 pneumatic compression stockings (fl,oh) 06/21/231929 activity - mobilize patient (nj,oh) Parts of this note may have been copied from one of my previous notes and remain pertinent. The documentation has been reviewed and edited as necessary to support the clinical decision making for today's visit. SIGNATURE: Lynda Holman PA-C PATIENT NAME: Deniz Kumar DATE: June 23, 2023 TIME: 6:20 AM Pager: [phone] Normal [facility] CT BRAIN WO IVCONon 06-23-20 CT BRAIN WO IVCON * * *Final Report* * * DATE OF EXAM: Jun 23 2023 1:56PM [facility] 0504 - CT BRAIN WO IVCON / PROCEDURE REASON: Subdural hematoma * * * * Physician Interpretation * * * * EXAMINATION: CT BRAIN WO IVCON CLINICAL HISTORY: Subdural hematoma. TECHNIQUE: Serial axial images without IV contrast were obtained from the vertex to the foramen magnum. MQ: [id number]_3 CT Radiation dose: Integrated Dose-Length Product (DLP) for this visit = 830 mGy*cm CT Dose Reduction Employed: Automated exposure control(AEC) and iterative recon COMPARISON: CT brain performed 06/22/2023. RESULT: Body And Frame Technician (topogram) images: Noncontributory. Post-operative change: None. Acute change: No evidence of an acute infarct or other acute parenchymal process. Hemorrhage: Continued decrease in subdural blood products along the posterior falx with extension along the RIGHT tentorium. No new acute hemorrhage. ECASS hemorrhagic transformation score: Not Applicable Mass Lesion / Mass Effect: There is no evidence of an intracranial mass or extraaxial fluid collection. No significant mass effect. Chronic change: Patchy foci of low attenuation coefficient are present within the supratentorial white matter which is a nonspecific finding but likely represents moderate microvascular ischemia. Parenchyma: There is moderate generalized volume loss. The brain parenchyma is otherwise within normal limits for age. Ventricles: Ventricular enlargement concordant with the degree of parenchymal volume loss. Paranasal sinuses and skull base: The visualized paranasal sinuses are grossly clear. The skull base and imaged soft tissues are unremarkable. IMPRESSION: Decreasing interhemispheric and tentorial blood products as above. No new acute findings. Marketing Database Analyst: KATIA Transcribe Date/Time: Jun 23 2023 2:30P Dictated by : BRITTANY KING MD This examination was interpreted and the report reviewed and electronically signed by: BRITTANY KING MD on Jun 23 2023 2:35PM EST [id number] Normal [facility] OPERATIVE NOon 06-23-2023 OPERATIVE NO HNO ID: [id number] Author: Bonifacio Valdez MD Service: Orthopaedic Surgery Author Type: Physician Type: Operative Report Filed: 06/23/2023 9:17 AM Note Text: ORTHO OPERATIVE REPORT LOG ID: [id number] Surgery/Procedure Date: 06/23/2023 Incision/Procedure Start Time: 8:22 AM Incision Close/Procedure End Time: 9:08 AM Surgeon(s)/Proceduralis t(s) and Supervisor Cemetery Workers(s): Surgeon(s) and Role: * Bonifacio Valdez MD - Primary * Uche Vasquez MD - Resident - Assisting No Additional Staff Dr. Burton - assisting Procedure(s): #1 open reduction fixation left bimalleolar ankle fracture. #2 open reduction fixation left syndesmosis Anesthesia: General Procedure Details: Informed consent was obtained. The patient was reprepped identify the presurgical area. He was brought back to the operating room and placed on the operating room table in the supine position. Anesthesia was administered followed by placement Linzer mask airway. Ofttimes head neck airway contraband see staff. Foam placed on the left hip. Left lower extremity was then prescribed with Hibiclens and alcohol and then prepped and draped orthopedic fashion. Timeout was performed prior to exam XR protocol. Patient received 2 g Ancef IV preoperatively. We then julio our incision over the distal fibula. This was made with scalpel. Dr. Machado's were hemostasis. Dissection carried down to the distal fibula. Soft tissues were elevated. Fracture site was identified and cleansed of debris. Plane reduction forcep was then used to obtain reduction. This was confirmed with C-arm imaging. We then placed an anterior to posterior lag screw which was a 2.7 millimeter screw. We then chose a Synthes 7 hole one third tubular plate placed this on the lateral aspect of the distal fibula. We then placed 1 nonlocking screw proximally. This was confirmed with C-arm imaging. We then placed 2 additional nonlocking screws proximally. We then reduced the syndesmosis and placed a syndesmotic screw with a 3.5 millimeter screw. We then placed 2 locking screws distally. No medial fixation was necessary. The mortise was well reduced. Final x-rays were obtained which showed satisfactory hardware placement and reduction. Closure ensued with irrigation. 2-0 Vicryl's in the dermis and 3-0 Monocryl for the skin. Exofin, Steri-Strips and a sterile dressing were placed. The patient was awakened anesthesia care room in stable condition. PRE-OP/PRE-PROCEDURE DIAGNOSIS: Left bimalleolar ankle fracture POST-OP/POST-PROCEDURE DIAGNOSIS: Same as Preop Estimated Blood Loss: 15 mls Specimens: None I Drains: None Complications: None Participation in Procedure: I/primary surgeon/proceduralist performed the procedure with assistance. SIGNATURE: Bonifacio Valdez MD PATIENT NAME: Deniz Kumar DATE: June 23, 2023 TIME: 9:15 AM PAGER/CONTACT #: Normal [facility] XR ANKLE 2V AP/LAT LTon 12-2 XR ANKLE 2V AP/LAT LT * * *Final Report* * * DATE OF EXAM: Jun 23 2023 9:02AM [facility] 5575 - XR ANKLE 2V AP/LAT LT / PROCEDURE REASON: ORIF * * * * Physician Interpretation * * * * FLUOROSCOPY AND IMAGING: CLINICAL INDICATION: Left lateral malleolus fracture. Status post ORIF left lateral malleolus fracture. COMPARISON: Left ankle radiographs 06/22/2023 and 06/21/2023. FINDINGS: Orthogonal image acquisitions of the left ankle are submitted. Bone detail is limited. Previously described lateral malleolus fracture is maintained in near anatomic alignment by an interfragmentary screw and plate and multiple screws lateral distal fibula including distal tibiofibular syndesmotic screw. Fluoroscopic Radiation Summary: Plane A, Air Kerma: 1.2 mGy Dose Area Product (DAP): 205.4 mGy*cm^2 Fluoro time: 0:27 min:sec Number of image acquisitions: 2 IMPRESSION: Fluoroscopy and imaging is provided for ORIF lateral malleolus fracture. Correlate with operative report and postoperative radiographs. Marketing Database Analyst: [facility] Transcribe Date/Time: Jun 24 2023 2:25P Dictated by : CLINTON PAULSON MD This examination was interpreted and the report reviewed and electronically signed by: CLINTON PAULSON MD on Jun 24 2023 2:33PM EST [id number] Normal [facility] XR ANKLE 3V AP/LAT/OBL LTon 06-23-2023 XR ANKLE 3V AP/LAT/OBL LT * * *Final Report* * * DATE OF EXAM: Jun 23 2023 9:37AM [facility] [id number] - XR ANKLE 3V AP/LAT/OBL LT / PROCEDURE REASON: Post-operative / post-procedure assessment, asymptomatic * * * * Physician Interpretation * * * * Left ankle HISTORY: 88 years old Clinical information: Post-operative / post-procedure assessment, asymptomatic POST OP TECHNIQUE: Images: XR ANKLE 3V AP/LAT/OBL LT Comparison: 06/22/2023 radiograph. RESULT: Findings: Plate and screw fixation of tibial fracture. One of the screws extends into the tibia. Alignment is anatomic. Ankle mortise maintained. External splint. IMPRESSION: ORIF fibular fracture Marketing Database Analyst: [facility] Transcribe Date/Time: Jun 24 2023 9:32A Dictated by : SUNDEEP WHITAKER MD This examination was interpreted and the report reviewed and electronically signed by: SUNDEEP WHITAKER MD on Jun 24 2023 9:33AM EST [id number] Normal [facility] ALLIED HEALTHon 06-22-2023 ALLIED HEALTH HNO ID: [id number] Author: Tyrone Guzman RT(R) Service: Radiology Author Type: Technologist Type: Allied Health Filed: 06/22/2023 5:09 AM Note Text: Radiology Service Progress Note PATIENT NAME: Deniz Kumar DATE OF SERVICE: June 22, 2023 TIME: 5:05 AM PATIENT IDENTITY VERIFICATION COMPLETED USING TWO (2) IDENTIFIERS: Name and Date of confirmed by patient verbally and Name and Date of confirmed by identification band. FALL SCREENING: Has the patient had 2 falls in the last year or 1 fall with injury or currently using an Ambulatory Assistive Device (Walker, Cane, Wheelchair, Crutches, etc.)? Inpatient: Screened on floor PATIENT GENDER DATA: Male PATIENT RELEVANT IMPLANT DATA REVIEWED: Not Applicable RADIOLOGY DEPARTMENT: CT; Exam(s) Completed: Brain PERIPHERAL IV DATA: Not applicable SIGNED BY: RT Davin(R) June 22, 2023 5:05 AM Normal [facility] Basic metabolic 2000 panelon 06-22-2023 Anion gap [Moles/Vol] 9 mmol/L Normal 9-18 [facility] Comment on above: Order Comment: Speci men Type: BLOOD SPECIMENOrdering Facility: [facility] Address: [address] [place] [address] Performed By: #### 2 4321-2, , 2776-07 ####[facility] LABORATORYCLIA [id number] [place] [address] [place] Calcium [Mass/Vol] 8.6 mg/dL Normal 8.5-10.2 [facility] Comment on above: Order Comment: Speci men Type: BLOOD SPECIMENOrdering Facility: [facility] Address: [address] [place] [address] Performed By: #### 2 432-2, , 2776-07 ####[facility] LABORATORYCLIA [id number] [place] [address] [place] Chloride [Moles/Vol] 106 mmol/L High 97-105 [facility] Comment on above: Order Comment: Speci men Type: BLOOD SPECIMENOrdering Facility: [facility] Address: [address] [place] [address] Performed By: #### 2 4321-2, , 2776-07 ####[facility] LABORATORYCLIA [id number] [place] [address] [place] CO2 [Moles/Vol] 25 mmol/L Normal 22-30 [facility] Comment on above: Order Comment: Speci men Type: BLOOD SPECIMENOrdering Facility: [facility] Address: [address] [place] [address] Performed By: #### 2 4321-2, , 2776-07 ####[facility]OSPITALIA [id number] [place] [address] [place] STATES OF [facility] Creatinine [Mass/Vol] 0.84 mg/dL Normal 0.73-1.22 [facility] Comment on above: Order Comment: Manuel valentine Type: BLOOD SPECIMENOrdering Facility: [facility] Address: [address] [place] [address] Performed By: #### 2 4321-2, , 2776-07 ####[facility] HOSPITALIA [id number] [place] [id number] [facility] Creatinine and Glomerular filtration rate.predicted panel (S/P/Bld) 84 mL/min/1.73m??? Normal >=60 [facility] Comment on above: Order Comment: Manuel valentine Type: BLOOD SPECIMENOrdering Facility: [facility] Address: [address] [place] [address] Result Comment: Franny mated Glomerular Filtration Rate (eGFR) is calculated using the 2020 CKD-EPI creatinine equation. This equation utilizes serum creatinine, sex, and age as parameters. The creatinine assay has traceable calibration to isotope dilution-mass spectrometry. Refer to KDIGO guidelines for clinical interpretation. In patients with unstable renal function, e.g. those with acute kidney injury, the eGFR may not accurately reflect actual GFR. Performed By: #### 2 4321-2, , 2776-07 ####[facility] HOSPITALIA [id number] [place] [id number] [place] STATES OF [facility] Glucose [Mass/Vol] 121 mg/dL High 74-99 [facility] Comment on above: Order Comment: Manuel valentine Type: BLOOD SPECIMENOrdering Facility: [facility] Address: [address] [place] [address] Result Comment: The [place] [employer] (ADA) provides guidance for cutoff values for fasting glucose and random glucose. The ADA defines fasting as no caloric intake for at least 8 hours. Fasting plasma glucose results between 100 to 125 mg/dL indicate increased risk for diabetes (prediabetes). Fasting plasma glucose results greater than or equal to 126 mg/dL meet the criteria for diagnosis of diabetes. In the absence of unequivocal hyperglycemia, results should be confirmed by repeat testing. In a patient with classic symptoms of hyperglycemia or hyperglycemic crisis, random plasma glucose results greater than or equal to 200 mg/dL meet the criteria for diagnosis of diabetes. Reference: Standards of Medical Care in Diabetes 2016, [place] [employer]. Diabetes Care. 2016.39(Suppl 1). Performed By: #### 2 4321-2, , 2776-07 ####[facility] LABORATORYCLIA [id number] [place] [address] [place] Potassium [Moles/Vol] 3.8 mmol/L Normal 3.7-5.1 [facility] Comment on above: Order Comment: Speci men Type: BLOOD SPECIMENOrdering Facility: [facility] Address: [address] [place] [address] Performed By: #### 2 4321-2, , 2776-07 ####[facility] LABORATORYCLIA [id number] [address] STATES OF [facility] Sodium [Moles/Vol] 140 mmol/L Normal 136-144 [facility] Comment on above: Order Comment: Speci men Type: BLOOD SPECIMENOrdering Facility: [facility] Address: [address] [place] [address] Performed By: #### 2 4321-2, , 2776-07 ####[facility] LABORATORYCLIA [id number] [address] [place] Urea nitrogen [Mass/Vol] 35 mg/dL High 9-24 [facility] Comment on above: Order Comment: Speci men Type: BLOOD SPECIMENOrdering Facility: [facility] Address: [address] [place] [address] Performed By: #### 2 4321-2, , 2776-07 ####[facility] LABORATORYCLIA [id number] [address] [place] CBC panel Auto (Bld)on 06-22 Erythrocyte distribution width (RBC) [Ratio] 13.0 % Normal 11.5-15.0 [facility] Comment on above: Order Comment: Speci men Type: BLOOD SPECIMENOrdering Facility: [facility] Address: [address] [place] [address] Performed By: #### 5 8410-2 ####[facility] LABORATORYCLIA [id number] [address] Hematocrit (Bld) [Volume fraction] 38.2 % Low 39.0-51.0 [facility] Comment on above: Order Comment: Speci men Type: BLOOD SPECIMENOrdering Facility: [facility] Address: [address] [place] [address] Performed By: #### 5 8410-2 ####[facility] LABORATORYCLIA [id number] [address] OF [facility] Hemoglobin (Bld) [Mass/Vol] 13.1 g/dL Normal 13.0-17.0 [facility] Comment on above: Order Comment: Speci men Type: BLOOD SPECIMENOrdering Facility: [facility] Address: [address] [place] [address] Performed By: #### 5 8410-2 ####[facility] LABORATORYCLIA [id number] [address] STATES [facility] MCH (RBC) [Entitic mass] 30.8 pg Normal 26.0-34.0 [facility] Comment on above: Order Comment: Speci men Type: BLOOD SPECIMENOrdering Facility: [facility] Address: [address] [place] [address] Performed By: #### 5 8410-2 ####[facility] LABORATORYCLIA [id number] [address] OF [place] MCHC (RBC) [Mass/Vol] 34.3 g/dL Normal 30.5-36.0 [facility] Comment on above: Order Comment: Speci men Type: BLOOD SPECIMENOrdering Facility: [facility] Address: [address] [place] [address] Performed By: #### 5 8410-2 ####[facility] LABORATORYCLIA [id number] [address] MCV (RBC) [Entitic vol] 89.7 fL Normal 80.0-100.0 [place] Comment on above: Order Comment: Speci men Type: BLOOD SPECIMENOrdering Facility: [facility] Address: [address] [place] [address] Performed By: #### 5 8410-2 ####[facility] LABORATORYCLIA [id number] [place] [address] [place] Nucleated RBC (Bld) [#/Vol] 10*3/uL Normal <0.01 [facility] Comment on above: Order Comment: Speci men Type: BLOOD SPECIMENOrdering Facility: [facility] Address: [address] [place] [address] Performed By: #### 5 8410-2 ####[facility] LABORATORYCLIA [id number] [address] [place] Platelet mean volume (Bld) [Entitic vol] 10.9 fL Normal 9.0-12.7 [facility] Comment on above: Order Comment: Speci men Type: BLOOD SPECIMENOrdering Facility: [facility] Address: [address] [place] [address] Performed By: #### 5 8410-2 ####[facility] LABORATORYCLIA [id number] [address] [place] Platelets (Bld) [#/Vol] 106 10*3/uL Low 150-400 [facility] Comment on above: Order Comment: Speci men Type: BLOOD SPECIMENOrdering Facility: [facility] Address: [address] [place] [address] Result Comment: No c lot detected. Performed By: #### 5 8410-2 ####[facility] LABORATORYCLIA [id number] [address] [place] RBC (Bld) [#/Vol] 4.26 10*6/uL Normal 4.20-6.00 [facility] Comment on above: Order Comment: Speci men Type: BLOOD SPECIMENOrdering Facility: [facility] Address: [address] [place] [address] Performed By: #### 5 8410-2 ####[facility] LABORATORYCLIA [id number] [place] [address] [place] WBC (Bld) [#/Vol] 6.20 10*3/uL Normal 3.70-11.00 [facility] Comment on above: Order Comment: Speci men Type: BLOOD SPECIMENOrdering Facility: [facility] Address: [address] [place] [address] [place] [address] Performed By: #### 5 8410-2 ####[facility] LABORATORYCLIA [id number] [place] [address] [facility] CONSULTon 06-22-2023 CONSULT HNO ID: [id number] Author: Bonifacio Valdez MD Service: Orthopaedic Surgery Author Type: Physician Type: Consults Filed: 06/23/2023 7:58 AM Note Text: Orthopaedic Surgery Consultation Note Reason for Consultation: Left ankle fracture Consulted Physician: Dr. Valdez Date: June 22, 2023 Time: 2:52 PM History of Present Illness 88 year old male being evaluated today regarding his above injury. The patient arrived to the hospital yesterday after sustaining a fall while hiking. He was found to have a head bleed and was admitted to the hospital for monitoring. Additional imaging found him to have a lateral malleolus fracture. Upon arrival to the room the patient is sitting up in bed. He is not complaining of any significant ankle pain. Denies any numbness or tingling. Denies any other concerns at this time. Denies previous injury to the left ankle. Review of Systems 10-point ROS negative except as in HPI. History PAST MEDICAL HISTORY Diagnosis Date Benign prostatic [...] UMBILICAL HERNIA REPAIR 5 OR OLDER 09/21/2021 RSV Vaccine(1 - 1-dose 60+ series) Never done Shingrix Vaccine(2 of 3) due on 08/14/2012 Diabetes Screening due on 06/22/2026 DTaP,Tdap,Td Vaccine(2 - Td or Tdap) due on 06/21/2033 Influenza Vaccine Completed Advance Directive Discussion Completed Depression Assessment Completed Covid-19 Vaccine Completed Pneumococcal Vaccine: 65+ Completed Fecal Occult Blood Discontinued A review of the patient's history was completed and is otherwise non-contributory to the patient's presenting condition. Medications pravastatin (PRAVACHOL) 20 mg tabletTake 1 tablet by mouth at bedtimeDisp: 90 tabletRfl: 3 lisinopril (ZESTRIL) 20 mg tabletTake 1 tablet by mouth once daily.Disp: 90 tabletRfl: 3 doxazosin (CARDURA) 1 mg tabletTake 1 tablet by mouth once daily.Disp: 90 tabletRfl: 3 finasteride (PROSCAR) 5 mg tabletTake 1 tablet by mouth once daily.Disp: 90 tabletRfl: 3 LOW-DOSE ASPIRIN ORALTake 81 mg by mouth twice daily. Disp: Rfl: Melatonin 5 mg capTake 5 mg by mouth daily at bedtime.Disp: Rfl: MULTIVITAMIN TABTake one(1) tablet daily.Disp: Rfl: 0 Lactobacillus acidophilus (PROBIOTIC) 10 billion cell capTake by mouth.Disp: Rfl: Allergies Clearasil Maximum Strength Family History Family History Reviewed Including Cardiac Diseases, Psychiatric Diseases, AND Substance Abuse Problem: Prostate Cancer Relation: Father Age of Onset: (Not Specified) Comment: metastatic prostate Problem: Cancer Relation: Mother Age of Onset: (Not Specified) Comment: liver Problem: Hypertension Relation: Sister Age of Onset: (Not Specified) Problem: Lipids Relation: Sister Age of Onset: (Not Specified) Social History 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 Drug use: Not Currently Types: Marijuana Physical Examination Vitals BP 117/63 Pulse (!) 55 Temp 36.5 ?C (97.7 ?F) (Oral) Resp 16 Ht 182.9 cm (6' 0.01") Wt 98 kg (216 lb 0.8 oz) SpO2 93% BMI 29.30 kg/m? General AANDO. NAD. Cooperative throughout entire interview. Appropriate mood and affect. Left Lower Extremity Alignment normal. No gross deformities. No swelling, ecchymosis, or erythema. No open wounds or lacerations. Minimal tenderness to palpation of the left ankle. No medial tenderness Compartments of the thigh and leg are soft and compressible Tolerates passive stretch of the digits SILT [place]/Sa/DP/SP/T. Motor intact EHL/DF/PF. DP pulse palpable; BCR all digits. Physical examination otherwise non-contributory to consultation. Labs Recent Labs 06/22/23 0423 06/21/23 1619 NA 140 141 K 3.8 3.6* CHLOR 106* 109* CO2 25 23 BUN 35* 24 CREAT 0.84 0.74 GLUC 121* 112* ANION 9 (more content not included)... Normal [facility] CONSULT PROGon 06-22-2023 CONSULT PROG HNO ID: [id number] Author: Nolvia Poole DO Service: General Surgery Author Type: Resident Type: Consult Progress Note Filed: 06/22/2023 10:23 AM Note Text: Attestation signed by Giovanni Denton MD at 06/24/2023 11:39 AM I personally saw and examined the patient on 06/22. I reviewed the resident's note. I agree with the resident's assessment and plan unless otherwise noted. INPATIENT SICU PROGRESS NOTE SERVICE DATE: 06/22/2023 SERVICE TIME: 10:18 AM Subjective Patient seen and examined this morning, he is doing well this morning, just does not like the bed. Very minimal headache. Current Facility-Administered Medications Medication Dose Route Frequency NaCl 0.9% iv flush bag 20 mL INTRAVENOUS PRN levETIRAcetam 500 mg tab(s) (KEPPRA) 500 mg ORAL BID pravastatin 20 mg tab(s) (PRAVACHOL) 20 mg ORAL AT BEDTIME acetaminophen 1,000 mg tab(s) (TYLENOL) 1,000 mg ORAL/FEEDING TUBE q 6 H oxyCODONE IR 5 mg tab(s) (ROXICODONE) 5 mg ORAL/FEEDING TUBE q 6 H Objective VITAL SIGNS BP 115/72 Pulse 51 Temp (Src) 97.5 (Oral) Resp 17 Ht 6' .008" (1.83m) Wt 216 lb 0.8 oz (98.0kg) SpO2 94% BMI 29.30 kg/(m2). O2 Therapy: Room Air, Liters: 2 Temp (24hrs), Av.7 ?C (98.1 ?F), Min:36.4 ?C (97.5 ?F), Max:36.9 ?C (98.4 ?F) Date 06/21/23 07 - 06/22/23 0659 06/22/23699 - 06/23/23 0659 Shift 5907-7822 8550-7804 6154-5984 24 Hour Total 0654-0690 9521-7130 0013-6568 24 Hour Total INTAKE IV 749 749 246 246 Volume (mL) (lactated ringers iv infusion) 749 749 246 246 Shift Total 749 749 246 246 OUTPUT Urine 200 200 Void (ml) 200 200 Urine Not Saved. 1 x 1 x Shift Total 200 200 Weight (kg) 96.7 98 98 98 98 98 98 PHYSICAL EXAM: GENERAL: Alert. No distress. Resting comfortably. NEURO: AANDOx3. No focal neurologic deficits. Sensation grossly intact. HEENT: Normocephalic. Atraumatic. EOMI. LUNGS: Unlabored breathing. Equal excursion bilaterally. CARDIAC: Regular rate, on tele, Good perfusion throughout. ABDOMEN: Soft, non-tender, non-distended. No rebound or guarding. EXTREMITIES: DEY. No deformities. SKIN: No obvious jaundice or pallor. DATA: Diagnostic tests reviewed for today's visit: No results for input(s): "BODSITE", "CTYPE", "PH", "PCO2", "PO2", "BE", "HCO3", "CO2CT", "O2HB", "COHB", "MHGB", "TEMP", "PHTC", "PCO2T", "PO2T", "O2AD" in the last 72 hours. Recent Labs 06/22/23 0423 06/21/23 1619 CREAT 0.84 0.74 BUN 35* 24 NA 140 141 K 3.8 3.6* CHLOR 106* 109* CO2 25 23 ANION 9 9 GLUC 121* 112* CA 8.6 8.6 P 3.2 -- MG 1.8 -- ALB -- 3.4* AST -- 23 ALT -- 15 ALKPHOS -- 66 TBILI -- 0.8 WBC 6.20 7.52 HB 13.1 15.5 HCT 38.2* 45.3 PLT 106* 118* Assessment AND Plan ACTIVE PROBLEM LIST Diverticulosis of Large Intestine Hyperlipidemia Essential Hypertension Benign Prostatic Hyperplasia With Urinary Obstruction Chronic Nonallergic Rhinitis Thrombocytopenia, Unspecified (Hcc) Erectile Dysfunction Obesity, Class II, Bmi 35-39.9 Urgency of Urination Subdural Hematoma (Hcc) Fall Assessment This is a 88 year old male with 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 Found to have a left tentorial midline falx subdural hematoma prompting his admission to SICU. Neuro: - L tentorial and midline falx sdh - nsy following - s/p DDAVP 06/21 - rpt CT H decreased - keppra - hx TIA - home asa held - pain control: ish tylenol, prn oxy CV: - HDS, no pressor requirements - Tele - EKG as indcated Resp: - 94 on O2 Therapy: Room Air - CXR Findings: Unremarkable chest x-ray GI: - DIET REGULAR - Bowel Regimen: none - GI ppx: none Renal: - strict Is/Os - electrolyte replacement per unit protocol Creatinine Date Value Ref Range Status 06/22/2023 0.84 0.73 - 1.22 mg/dL Final 06/21/2023 0.74 0.73 - 1.22 mg/dL Final 02/08/2023 0.98 0.73 - 1.22 mg/dL Final 08/09/2022 0.90 0.73 - 1.22 mg/dL Final Magnesium Date Value Ref Range Status 06/22/2023 1.8 1.7 - 2.3 mg/dL Final Potassium Date Value Ref Range Status 06/22/2023 3.8 3.7 - 5.1 mmol/L Final 06/21/2023 3.6 (L) 3.7 - 5.1 mmol/L Final 02/08/2023 4.4 3.7 - 5.1 mmol/L Final Intake/Output Summary (Last 24 hours) at 06/22/2023 1018 Last data filed at 06/22/2023 0911 Gross per 24 hour Intake 995 ml Output 200 ml Net 795 ml Heme: - HGB - 13.1, 15.5 - transfuse for hemoglobin < 7.0 in a stable patient or for symptomatic anemia, not indicated at this time Endo: - GLU - 121, 112 - continue blood sugar checks ID: Temp (24hrs), Av.7 ?C (98.1 ?F), Min:36.4 ?C (97.5 ?F), Max:36.9 ?C (98.4 ?F) - WBC - 6.20, 7.52 - continue monitor for any signs of infection WBC Date Value Ref Range Status 06/22/2023 6.20 3. (more content not included)... Normal [facility] CONSULT PROG HNO ID: [id number] Author: Syeda Blandon APRN.CASH APPLICATIONS ASSOCIATE Service: Neurosurgery Author Type: Nurse Practitioner Type: Consult Progress Note Filed: 06/22/2023 7:26 AM Note Text: Neurosurgery Progress Note SERVICE DATE: 06/22/2023 SUBJECTIVE: NAEON. Patient states he didn't sleep well because staff kept waking him up. Reports mild headache, unchanged from last night. Denies vision changes, dizziness or nausea. OBJECTIVE: Vitals: Temp (24hrs), Av.8 ?C (98.3 ?F), Min:36.7 ?C (98.1 ?F), Max:36.9 ?C (98.4 ?F) BP 115/66 Pulse (!) 51 Temp 36.8 ?C (98.2 ?F) (Oral) Resp 10 Ht 182.9 cm (6' 0.01") Wt 98 kg (216 lb 0.8 oz) SpO2 97% BMI 29.30 kg/m? O2 Therapy: Nasal Cannula IANDO: Date 06/21/23 07 - 06/22/23 0659 06/22/23 07 - 06/23/23 0659 Shift 1965-7275 3416-6013 0279-5497 24 Hour Total 1036-1708 1498-5855 1064-4089 24 Hour Total INTAKE IV 749 749 Volume (mL) (lactated ringers iv infusion) 749 749 Shift Total 749 749 OUTPUT Urine 200 200 Void (ml) 200 200 Urine Not Saved. 1 x 1 x Shift Total 200 200 Weight (kg) 96.7 98 98 98 98 98 98 MEDICATIONS Current Facility-Administered Medications Medication Dose Route Frequency [...] 45.3 PLT 106* 118* INR -- 1.1 Exam: GENERAL: Awake and alert; NAD; cooperative; pleasant NEURO: Orientedx3; speech clear and fluent; DEY; +R arm drift STRENGTH: grossly 5/5 throughout HEENT: Normocephalic; atraumatic; perrl/eomi; no facial droop LUNGS: Unlabored breathing CARDIAC: Rate and rhythm as above ABDOMEN: Soft, non-tender, non-distended EXTREMITIES: No deformities, No edema SKIN: Skin color normal; Temperature normal; no rashes or lesions ASSESSMENT AND PLAN: Mr. Kumar is a 88 year old male with PMHx significant for TIA (on ASA), who presents as a fall while hiking, found to have left tentorial and midline falx SDH -Neuro intact -Imaging: Repeat CTH with stable appearance of hemorrhage. -continue neuro checks -Diet: ok for diet from NSGY perspective -SBP no cap -Reversal: DDAVP given for ASA 81 mg BID -Seizure PPX: Keppra 500 mg BID x7 days -DVT PPX: SCDs, hold chemo ppx -Remains non-surgical -additional recommendations and plan of care may follow daily rounds Parts of this note may have been copied from one of my previous notes and remain pertinent. The documentation has been reviewed and edited as necessary to support the clinical decision making for today's visit. SIGNATURE: Syeda Blandon APRN.KEVYN PATIENT NAME: Deniz Kumar DATE: June 22, 2023 TIME: 7:15 AM Pager: [phone] Normal [facility] CT BRAIN WO IVCONon 06-22-20 CT BRAIN WO IVCON * * *Final Report* * * DATE OF EXAM: Jun 22 2023 5:17AM [facility] 0504 - CT BRAIN WO IVCON / PROCEDURE REASON: Subdural hematoma * * * * Physician Interpretation * * * * EXAMINATION: CT BRAIN WO IVCON CLINICAL HISTORY: Follow-up intracranial hemorrhage. TECHNIQUE: Serial axial images without IV contrast were obtained from the vertex to the foramen magnum. MQ: CTBWO_3 CT Radiation dose: Integrated Dose-Length Product (DLP) for this visit = 794 mGy*cm CT Dose Reduction Employed: Iterative recon COMPARISON: CT head 06/21/2023. RESULT: Body And Frame Technician (topogram) images: No additional findings. Post-operative change: None. Acute change: No evidence of an acute infarct or other acute parenchymal process. Hemorrhage: Redemonstration of thin acute subdural hemorrhage along the left falx and left tentorium, measuring 4 mm in greatest thickness. Slightly decreased hemorrhage along the falx anteriorly. No new intracranial hemorrhage. Mass Lesion / Mass Effect: There is no evidence of an intracranial mass or extraaxial fluid collection. No significant mass effect. Chronic change: Patchy foci of low attenuation coefficient are present within the supratentorial white matter which is a nonspecific finding but likely represents moderate microvascular ischemia. Parenchyma: There is moderate generalized volume loss. The brain parenchyma is otherwise within normal limits for age. Ventricles: Ventricular enlargement concordant with the degree of parenchymal volume loss. Paranasal sinuses and skull base: The visualized paranasal sinuses are grossly clear. The skull base and imaged soft tissues are unremarkable. Extracalvarial soft tissue swelling over the right parietal region appears slightly increased. IMPRESSION: Slightly decreased hemorrhage along the falx. Otherwise, no significant interval change in left parafalcine and tentorial acute subdural hemorrhage. No new intracranial hemorrhage. Marketing Database Analyst: PSYCHIATRICB Transcribe Date/Time: Jun 22 2023 5:19A Dictated by : RA BLACKMAN MD This examination was interpreted and the report reviewed and electronically signed by: RA BLACKMAN MD on Jun 22 2023 5:25AM EST [id number] Normal [facility] Calcium.ionized [Moles/Vol]o n 06-22-2023 Calcium.ionized (BldV) [Mass/Vol] 1.12 mmol/L Normal 1.08-1.30 [facility] Comment on above: Order Comment: Speci men Type: BLOOD SPECIMENOrdering Facility: [facility] Address: [address] [place] [address] Performed By: #### 1 995-0 ####[facility] LABORATORYCLIA [id number] [place] [address] [place] Calcium.ionized adjusted to pH 7.4 (Bld) [Moles/Vol] 1.15 mmol/L Normal 1.08-1.30 [facility] Comment on above: Order Comment: Speci men Type: BLOOD SPECIMENOrdering Facility: [facility] Address: [address] [place] [address] Performed By: #### 1 995-0 ####[facility] LABORATORYCLIA [id number] [place] [id number] [place] Magnesium SerPl-ncon 06-22 Magnesium [Mass/Vol] 1.8 mg/dL Normal 1.7-2.3 [facility] Comment on above: Order Comment: Speci men Type: BLOOD SPECIMENOrdering Facility: [facility] Address: [address] [place] [address] Performed By: #### 2 4321-2, 66224-3, 2777-1 ####[facility] LABORATORYCLIA [id number] [address] [place] NURSING PROGon 06-22-2023 NURSING PROG HNO ID: [id number] Author: Sada Rubio RN Service: Nursing Author Type: Registered Nurse Type: Nursing Progress Note Filed: 06/22/2023 11:31 AM Note Text: Transfer Note: PATIENT NAME: Deniz Kumar Patient Location: [place] [address] [address] Room: [place] [address] Called transfer report to LEATHA Galvan on [address]. Will transport patient shortly Normal [facility] Phosphate [facility] Phosphate [Mass/Vol] 3.2 mg/dL Normal 2.7-4.8 [facility] Comment on above: Order Comment: Speci men Type: BLOOD SPECIMENOrdering Facility: [facility] Address: [address] [place] [address] Performed By: #### 2 4321-2, 57378-0, 2777- ####[facility] LABORATORYCLIA [id number] [place] [id number] [place] XR ANKLE SPECIFY 1V LTon XR ANKLE SPECIFY 1V LT * * *Final Report * * * DATE OF EXAM: Jun 22 2023 3:36PM AKX 5502 - XR ANKLE SPECIFY 1V LT / PROCEDURE REASON: Fracture * * * * Physician Interpretation * * * * EXAMINATION: XR ANKLE SPECIFY 1V LT HISTORY: EVALUATE LEFT ANKLE FRACTURE Fracture. TECHNIQUE: XR ANKLE SPECIFY 1V LT Laterality: LEFT Number of different views (projections): 2 M: XB_1 COMPARISON: Ankle radiograph 06/21/2023 RESULT: 2 nonweightbearing mortise images including stress view. Opening of the mortise medial clear space on stress compared to nonstress image. Again noted Wong C fibular fracture. IMPRESSION: Confirmation of tibiofibular syndesmotic instability with applied ankle stress Marketing Database Analyst: PSCB Transcribe Date/Time: Jun 22 2023 4:02P Dictated by : SINAN MATTHEW MD This examination was interpreted and the report reviewed and electronically signed by: SINAN MATTHEW MD on Jun 22 2023 4:08PM EST [id number] Normal [facility] ALLIED HEALTHon 06-21-2023 ALLIED HEALTH HNO ID: [id number] Author: Lise Steiner RT(R) Service: ? Author Type: Technologist Type: Allied Health Filed: 06/21/2023 8:15 PM Note Text: Radiology Service Progress Note PATIENT NAME: Deniz Kumar DATE OF SERVICE: June 21, 2023 TIME: 8:15 PM PATIENT IDENTITY VERIFICATION COMPLETED USING TWO (2) IDENTIFIERS: Name and Date of confirmed by patient verbally and Name and Date of confirmed by identification band. FALL SCREENING: Has the patient had 2 falls in the last year or 1 fall with injury or currently using an Ambulatory Assistive Device (Walker, Cane, Wheelchair, Crutches, etc.)? Emergency Room Patient: Screened in ED PATIENT GENDER DATA: Male PATIENT RELEVANT IMPLANT DATA REVIEWED: Yes RADIOLOGY DEPARTMENT: CT; Exam(s) Completed: Brain PERIPHERAL IV DATA: Inpatient: see LDA documentation SIGNED BY: RT Paige(R) June 21, 2023 8:15 PM Normal [facility] Absolute lymphocyte countOrd ered By: Gordon Hill on 06-21-2023 Lymphocytes Auto (Unsp spec) [#/Vol] 0.71 10*3/uL 0.83-4.51 [facility] Basophil percentageOrdered B y: Gordon Hill on 06-21-2023 Basophils/100 WBC (Bld) 0.2 % 0-1 [facility] Bilirubin [Mass/Vol] 0.90 mg/dL 0.20-1.00 [facility] Comment on above: For patients on eltr ombopag therapy, use of Dimension [place] TBIL is not recommended. Chloride [Moles/Vol] 111 mmol/L 98-107 [facility] Eosinophils/100 WBC (Bld) 0.6 % 0-5 [facility] Glucose [Mass/Vol] 115 mg/dL 74-106 [facility] Comment on above: Fasting Glucose resu lt from 100 to 125 mg/dL suggests IMPAIRED HOMEOSTASIS per A.D.A. criteria. Neutrophils (Bld) [#/Vol] 3.5 10*3/uL 2.0-7.7 [facility] Neutrophils/100 WBC (Bld) 70.2 % 47-70 [facility] Potassium [Moles/Vol] 3.5 mmol/L 3.5-5.1 [facility] Protein [Mass/Vol] 6.1 g/dL 6.4-8.2 [facility] Sodium [Moles/Vol] 142 mmol/L 136-145 [facility] WBC (Bld) [#/Vol] 5.0 10*3/uL 4.4-11.0 [facility] Blood erythrocytes count (nu mber/volume)Ordered By: Gordon Hill on 06-21-2023 RBC (Bld) [#/Vol] 4.99 10*6/uL 4.6-6.2 [facility] Blood hemoglobin measurement (mass/volume)Ordered By: Gordon Hill on 06-21-2023 Hemoglobin (Bld) [Mass/Vol] 15.0 g/dL 13.0-16.5 [facility] Blood lymphocytes/100 leukoc ytesOrdered By: Gordon Hill on 06-21-2023 Lymphocytes/100 WBC (Bld) 14.2 % 19-41 [facility] Blood monocytes/100 leukocyt esOrdered By: Gordon Hill on 06-21-2023 Monocytes/100 WBC (Bld) 14.2 % 0-10 [facility] Blood platelet mean volumeOr dered By: Gordon Hill on 06-21-2023 Platelet mean volume (Bld) [Entitic vol] 11.0 fL 6.2-12.0 [facility] CBC panel Auto (Bld)on 06-21 Erythrocyte distribution width (RBC) [Ratio] 12.7 % Normal 11.5-15.0 [facility] Comment on above: Order Comment: Speci men Type: BLOOD SPECIMENOrdering Facility: [facility] Address: [address] [place] [address] Performed By: #### 5 8410-2 ####[facility] LABORATORYCLIA [id number] [address] Hematocrit (Bld) [Volume fraction] 45.3 % Normal 39.0-51.0 [facility] Comment on above: Order Comment: Speci men Type: BLOOD SPECIMENOrdering Facility: [facility] Address: [address] [place] [address] Performed By: #### 5 8410-2 ####[facility] LABORATORYCLIA [id number] [address] [place] Hemoglobin (Bld) [Mass/Vol] 15.5 g/dL Normal 13.0-17.0 [facility] Comment on above: Order Comment: Speci men Type: BLOOD SPECIMENOrdering Facility: [facility] Address: [address] [place] [address] Performed By: #### 5 8410-2 ####[facility] LABORATORYCLIA [id number] [address] [place] MCH (RBC) [Entitic mass] 31.0 pg Normal 26.0-34.0 [facility] Comment on above: Order Comment: Speci men Type: BLOOD SPECIMENOrdering Facility: [facility] Address: [address] [place] [address] Performed By: #### 5 8410-2 ####[facility] LABORATORYCLIA [id number] [place] [address] [place] MCHC (RBC) [Mass/Vol] 34.2 g/dL Normal 30.5-36.0 [facility] Comment on above: Order Comment: Speci men Type: BLOOD SPECIMENOrdering Facility: [facility] Address: [address] [place] [address] Performed By: #### 5 8410-2 ####[facility] LABORATORYCLIA [id number] [address] OF [facility] MCV (RBC) [Entitic vol] 90.6 fL Normal 80.0-100.0 [facility] Comment on above: Order Comment: Speci men Type: BLOOD SPECIMENOrdering Facility: [facility] Address: [address] [place] [address] Performed By: #### 5 8410-2 ####[facility] LABORATORYCLIA [id number] [address] Nucleated RBC (Bld) [#/Vol] 10*3/uL Normal <0.01 [facility] Comment on above: Order Comment: Speci men Type: BLOOD SPECIMENOrdering Facility: [facility] Address: [address] [place] [address] Performed By: #### 5 8410-2 ####[facility] LABORATORYCLIA [id number] [address] Platelet mean volume (Bld) [Entitic vol] 10.9 fL Normal 9.0-12.7 [facility] Comment on above: Order Comment: Speci men Type: BLOOD SPECIMENOrdering Facility: [facility] Address: [address] [place] [address] Performed By: #### 5 8410-2 ####[facility] LABORATORYCLIA [id number] [address] [place] Platelets (Bld) [#/Vol] 118 10*3/uL Low 150-400 [facility] Comment on above: Order Comment: Speci men Type: BLOOD SPECIMENOrdering Facility: [facility] Address: [address] [place] [address] Result Comment: No c lot detected. Performed By: #### 5 8410-2 ####[facility] LABORATORYCLIA [id number] [address] [place] RBC (Bld) [#/Vol] 5.00 10*6/uL Normal 4.20-6.00 [facility] Comment on above: Order Comment: Speci men Type: BLOOD SPECIMENOrdering Facility: [facility] Address: [address] [place] [address] Performed By: #### 5 8410-2 ####[facility] LABORATORYCLIA [id number] [address] OF [facility] WBC (Bld) [#/Vol] 7.52 10*3/uL Normal 3.70-11.00 [facility] Comment on above: Order Comment: Speci men Type: BLOOD SPECIMENOrdering Facility: [facility] Address: [address] [place] [address] Performed By: #### 5 8410-2 ####[facility] LABORATORYCLIA [id number] [address] CONFIRM BLOOD TYPEon 023 ABO O Normal [facility] Comment on above: Order Comment: Speci men Type: BLOOD SPECIMENOrdering Facility: [facility] Address: [address] [place] [address] Performed By: #### C ONABO ####[facility] BLOOD BANKCLIA [id number] [address] Rh Nom (Bld) Positive Normal [facility] Comment on above: Order Comment: Speci men Type: BLOOD SPECIMENOrdering Facility: [facility] Address: [address] [place] [address] Performed By: #### C ONABO ####[facility] BLOOD BANKCLIA [id number] [address] CONSULTon 06-21-2023 CONSULT HNO ID: [id number] Author: Juan Durán DO Service: General Surgery Author Type: Resident Type: Consults Filed: 06/21/2023 6:37 PM Note Text: Attestation signed by Giovanni Denton MD at 06/22/2023 9:09 AM I personally saw and examined the patient on 06/21. I reviewed the resident's note. I agree with the resident's assessment and plan unless otherwise noted. Surgical Intensive Care Unit Consult Note SERVICE DATE: 06/21/2023 SERVICE TIME: 6:22 PM REASON FOR CONSULT: [facility] REQUESTING PHYSICIAN: Dr. Cervantes Subjective 88 year old male past medical history of TIA on aspirin presents as a trauma after falling while hiking. Patient states that he hit his head but did not lose consciousness. Was initially transferred to an outside ED where he underwent a CT scan that demonstrated a left tentorial and falx subdural hematoma. Takes a baby aspirin twice daily, last took this morning. Patient admitted to SICU due to head bleed. FUNCTIONAL STATUS: Independent PAST MEDICAL HISTORY Diagnosis Date Benign prostatic [...] less. Drug use: Not Currently Types: Marijuana (Not in a hospital admission) Current Facility-Administered Medications Medication Dose Route Frequency NaCl 0.9% iv flush bag 20 mL INTRAVENOUS PRN levETIRAcetam 500 mg tab(s) (KEPPRA) 500 mg ORAL BID Allergies As of Date: 06/21/2023 Allergen Noted Reaction CLEARASIL MAXIMUM STRENGTH 09/16/2018 Swelling Fully Assessed 06/21/2023 COMPLETE REVIEW OF SYSTEMS: GENERAL: No weight loss, malaise or fevers. HEENT: Negative for frequent or significant headaches, No changes in hearing or vision, no nose bleeds or other nasal problems. NECK: Negative for lumps, goiter, pain and significant neck swelling. RESPIRATORY: Negative for cough, hemoptysis, wheezing, COPD, dyspnea or shortness of breath. CARDIOVASCULAR: Negative for chest pain, leg swelling, hypertension, CHF or palpitations. GI: No nausea, vomiting, or diarrhea. MUSCULOSKELETAL: Negative for joint pain or swelling, back pain or muscle pain. SKIN: Negative for lesions, rash, and itching. PSYCH: Negative for sleep disturbance, mood disorder and recent psychosocial stressors. NEURO: No history of headaches, syncope, paralysis, seizures or tremors. Objective PHYSICAL EXAM: BP 137/72 Pulse 86 Temp (Src) 98.4 (Oral) Resp 19 Ht 6' 0" (1.83m) Wt 208 lb (94.3kg) SpO2 95% BMI 28.20 kg/(m2). O2 Therapy: Room Air GENERAL: Alert. No distress. Resting comfortably. NEURO: AANDOx3. No focal neurologic deficits. Sensation grossly intact. HEENT: Normocephalic. Atraumatic. EOMI. LUNGS: Unlabored breathing on RA. Equal excursion bilaterally. CARDIAC: Regular rate. Good perfusion throughout. ABDOMEN: Soft, non-tender, non-distended. No rebound or guarding. EXTREMITIES: DEY. No deformities. SKIN: No obvious jaundice or pallor. DATA: Labs: Recent Labs 06/21/23 1619 NA 141 K 3.6* CHLOR 109* CO2 23 BUN 24 CREAT 0.74 GLUC 112* ANION 9 CA 8.6 ALB 3.4* AST 23 ALT 15 ALKPHOS 66 TBILI 0.8 WBC 7.52 HB 15.5 HCT 45.3 PLT 118* INR 1.1 Diagnostic tests reviewed for today's visit: Most recent labs and imaging results. Assessment and Plan: This is a 88 year old male with 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 Found to have a left tentorial midline falx subdural hematoma prompting his admission to SICU. Hospital course: 06/21: (more content not included)... Normal [facility] CONSULT HNO ID: [id number] Author: Lynda Holman PA-C Service: Neurosurgery Author Type: Physician Supervisor Cemetery Workers Type: Consults Filed: 06/21/2023 5:14 PM Note Text: Attestation signed by Nicolás Junior MD at 06/22/2023 9:06 AM I agree with the Note of Lynda Holman below. I also reviewed the CTH scans. No surgical intervention required at this time. Will continue to monitor and evaluate with CT scan of the head. Nicolás Junior MD CONSULT: NEUROSURGERY SERVICE SERVICE DATE: 06/21/2023 SERVICE TIME: 1625 REASON FOR CONSULT: Trauma, fall REQUESTING PHYSICIAN: Dr. Jorgensen PRIMARY CARE PHYSICIAN: Vadim Deras MD Consultation requested by Dr. Jorgensen for an opinion regarding trauma. My final recommendations will be communicated back to the requesting physician by way of shared Medical record or letter to requesting physician via US mail. Level Trauma: Unleveled I was present at the bedside for in-person evaluation of the patient at 1625, being contacted at 1616 HISTORY OF PRESENT ILLNESS: Subjective Mr. Kumar is a 88 year old male with PMHx significant for TIA, who presents for fall while hiking. Patient reports to increasing bilateral thigh aching over the past year, and felt that he needed to exercise more to help this. Patient was hiking near [place] and stated his legs felt weaker after prolonged hiking, but still had quite a ways to go back to his car. Patient reports he is not sure how exactly he fell, but landed on the ground, and had a worker at hiking trail help him up. Was transferred to [facility] emergency department, where CT scan showed a left tentorial and falx subdural hematoma. Takes 1 baby aspirin twice daily for reported history of transient ischemic attack 8 to 9 years ago. 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 Denies [place], N/V, numbness/tingling, weakness, changes in vision/hearing, new episodes of bowel/bladder incontinence, fever/chills, hx of seizures/migraines, chest pain/SOB, and abdominal pain. GCS at scene 15 Antiplatelet/Anticoagul ants: Yes ASA 81 mg BID Past Medical History: PAST MEDICAL HISTORY Diagnosis Date Benign prostatic hyperplasia with urinary obstruction Brain TIA 11/03/2018 Chronic nonallergic rhinitis 07/12/2016 Diverticulosis of colon (without mention of hemorrhage) Erectile dysfunction, unspecified erectile dysfunction type Essential hypertension 02/22/2006 Hypertrophy of prostate with urinary obstruction and other lower urinary tract symptoms (LUTS) Internal hemorrhoids without mention of complication OAB (overactive bladder) Pure hypercholesterolemia Thrombocytopenia, unspecified (HCC) 2017 Past Surgical History: PAST SURGICAL HISTORY Procedure Laterality Date CATARACT EXTRACTION W/ INTRAOCULAR LENS IMPLANT HX Left 03/2019 Dr. Rivera COLONOSCOPY FLX DX W/COLLJ SPEC WHEN PFRMD 03/2004 Colonoscopy TONSILLECTOMY AND ADENOIDECTOMY UMBILICAL HERNIA REPAIR 5 OR OLDER 09/21/2021 Family History: FAMILY HISTORY Problem Relation Age of Onset Prostate Cancer Father metastatic prostate Cancer Mother liver Hypertension Sister Lipids Sister Social History: Social History Tobacco Use Smoking status: Former Packs/day: 0.50 Years: 5.00 Additional pack years: 0.00 Total pack years: 2.50 Types: Cigarettes, Pipe Smokeless tobacco: Never Vaping Use Vaping Use: Never used Substance Use Topics Alcohol use: Yes Alcohol/week: 1.0 standard drink of alcohol Types: 1 Cans of beer per week Comment: or less. Drug use: Not Currently Types: Marijuana COMPLETE REVIEW OF SYSTEMS: Constitutional: Denies fatigue, fever/chills, recent weight changes Eyes: Denies vision changes, diplopia, pain, use of corrective devices Ears: Denies hearing changes, tinnitus, vertigo, use of hearing devices Cardiovascular: Denies palpitations, dyspnea, edema, chest pain Respiratory: Denies cough, wheezing, dyspnea GI: Denies dysphagia, gastric reflux, nausea, vomiting, change in bowel or bladder habits : Denies incontinence, urinary infections Musculoskeletal: Denies joint pain, muscle pain, limitation of movement, stiffness, weakness Integumentary: Denies rashes, color changes in skin or nails Neurological: See HPI Psychiatric: Denies anxiety, depression, suicidal ideation, hallucinations Endocrine: Denies heat/cold intolerance, polyuria, polyphagia, polydipsia, diaphoresis Heme/Lymph: Denies easy bruising or bleeding, history of blood transfusions and reactions Allergy/Immune: Denies fatigue, fever/chills, malaise, night sweats, recent weight changes Objective MEDS: (Not in a hospital admission) Current Facility-Administered Medications Medication Dose Route Frequency NaCl 0.9% iv flush bag 20 mL INTRAVENOUS PRN desmopressi (more content not included)... Normal [facility] CT BRAIN WO IVCONon 06-21-20 CT BRAIN WO IVCON * * *Final Report* * * DATE OF EXAM: Jun 21 2023 8:19PM [facility] 0504 - CT BRAIN WO IVCON / PROCEDURE REASON: Subdural hematoma * * * * Physician Interpretation * * * * EXAMINATION: CT BRAIN WO IVCON CLINICAL HISTORY: Subdural hematoma TECHNIQUE: Serial axial images without IV contrast were obtained from the vertex to the foramen magnum. MQ: CTBWO_3 CT Radiation dose: Integrated Dose-Length Product (DLP) for this visit = 798 mGy*cm CT Dose Reduction Employed: Automated exposure control(AEC) and iterative recon COMPARISON: CT performed 06/21/2023 at 1:35 PM. Outside study. RESULT: Body And Frame Technician (topogram) images: No additional findings. Post-operative change: None. Acute change: No evidence of an acute infarct or other acute parenchymal process. Hemorrhage: Again demonstrated is a thin acute subdural hemorrhage along the left falx and left tentorium. The hemorrhage measures 4 mm in greatest thickness. There is no appreciable mass effect. When compared with the previous study, the subdural hemorrhage is similar, with slight redistribution, slightly less blood along the anterior falx. ECASS hemorrhagic transformation score: Not Applicable Mass Lesion / Mass Effect: There is no evidence of an intracranial mass or extraaxial fluid collection. No significant mass effect. Chronic change: Patchy foci of low attenuation coefficient are present within the supratentorial white matter which is a nonspecific finding but likely represents moderate microvascular ischemia. Parenchyma: There is moderate generalized volume loss. The brain parenchyma is otherwise within normal limits for age. Ventricles: The ventricles are within normal limits of size and configuration for age. Paranasal sinuses and skull base: The visualized paranasal sinuses are grossly clear. Extracalvarial soft tissue swelling over the right parietal region. Several small dots of air noted in the right facial soft tissues. This is most likely venous air. IMPRESSION: Little interval change in the 4 mm thick left parafalcine and tentorial acute subdural hemorrhage. Some redistribution of blood has occurred in the interval. No significant mass effect. Marketing Database Analyst: PSYCHIATRICB Transcribe Date/Time: Jun 21 2023 8:53P Dictated by : LINDA LOMBARDO MD This examination was interpreted and the report reviewed and electronically signed by: LINDA LOMBARDO MD on Jun 21 2023 9:02PM EST [id number] Normal [facility] Comprehensive metabolic 2000 panelon 06-21-2023 Albumin [Mass/Vol] 3.4 g/dL Low 3.9-4.9 [facility] Comment on above: Order Comment: Speci men Type: BLOOD SPECIMENOrdering Facility: [facility] Address: [address] [place] [address] Performed By: #### 3 3, ####[facility]ATORYCLIA [id number] [place] [address] [place] ALP [Catalytic activity/Vol] 66 U/L Normal 38-113 [facility] Comment on above: Order Comment: Speci men Type: BLOOD SPECIMENOrdering Facility: [facility] Address: [address] [place] [address] Performed By: #### 3 3, ####[facility] LABORATORYCLIA [id number] [place] [address] [place] ALT With P-5'-P [Catalytic activity/Vol] 15 U/L Normal 10-54 [facility] Comment on above: Order Comment: Speci men Type: BLOOD SPECIMENOrdering Facility: [facility] Address: [address] [place] [address] Performed By: #### 3 3, ####[facility] LABORATORYCLIA [id number] [address] STATES OF [facility] Anion gap [Moles/Vol] 9 mmol/L Normal 9-18 [facility] Comment on above: Order Comment: Speci men Type: BLOOD SPECIMENOrdering Facility: [facility] Address: [address] [place] [address] Performed By: #### 3 3, ####[facility] LABORATORYCLIA [id number] [place] [address] [place] AST With P-5'-P [Catalytic activity/Vol] 23 U/L Normal 14-40 [facility] Comment on above: Order Comment: Speci men Type: BLOOD SPECIMENOrdering Facility: [facility] Address: [address] [place] [address] Performed By: #### 3 040-3, ####[facility] LABORATORYCLIA [id number] [place] [address] [place] Bilirubin [Mass/Vol] 0.8 mg/dL Normal 0.2-1.3 [facility] Comment on above: Order Comment: Speci men Type: BLOOD SPECIMENOrdering Facility: [facility] Address: [address] [place] [address] Performed By: #### 3 , ####[facility] LABORATORYCLIA [id number] [place] [address] [place] Calcium [Mass/Vol] 8.6 mg/dL Normal 8.5-10.2 [facility] Comment on above: Order Comment: Speci men Type: BLOOD SPECIMENOrdering Facility: [facility] Address: [address] [place] [address] Performed By: #### 3 , ####[facility] LABORATORYCLIA [id number] [place] [address] [place] Chloride [Moles/Vol] 109 mmol/L High 97-105 [facility] Comment on above: Order Comment: Speci men Type: BLOOD SPECIMENOrdering Facility: [facility] Address: [address] [place] [address] Performed By: #### 3 , ####[facility] LABORATORYCLIA [id number] [place] [address] [place] CO2 [Moles/Vol] 23 mmol/L Normal 22-30 [facility] Comment on above: Order Comment: Speci men Type: BLOOD SPECIMENOrdering Facility: [facility] Address: [address] [place] [address] Performed By: #### 3 , ####[facility]ORATORYCLIA [id number] [place] [address] [place] Creatinine [Mass/Vol] 0.74 mg/dL Normal 0.73-1.22 [facility] Comment on above: Order Comment: Speci men Type: BLOOD SPECIMENOrdering Facility: [facility] Address: [address] [place] [address] Performed By: #### 3 , ####[facility] LABORATORYCLIA [id number] [place] [address] [place] [facility] [place] Creatinine and Glomerular filtration rate.predicted panel (S/P/Bld) 88 mL/min/1.73m??? Normal >=60 [facility] Comment on above: Order Comment: Manuel valentine Type: BLOOD SPECIMENOrdering Facility: [facility] Address: [address] [place] [address] Result Comment: Franny mated Glomerular Filtration Rate (eGFR) is calculated using the 2020 CKD-EPI creatinine equation. This equation utilizes serum creatinine, sex, and age as parameters. The creatinine assay has traceable calibration to isotope dilution-mass spectrometry. Refer to KDIGO guidelines for clinical interpretation. In patients with unstable renal function, e.g. those with acute kidney injury, the eGFR may not accurately reflect actual GFR. Performed By: #### 3 040-3, 52062-7 ####[facility][1]CLIA [id number] [place] [address] [place] Glucose [Mass/Vol] 112 mg/dL High 74-99 [facility] Comment on above: Order Comment: Manuel valentine Type: BLOOD SPECIMENOrdering Facility: [facility] Address: [address] [place] [address] Result Comment: The [place] Diabetes Association (ADA) provides guidance for cutoff values for fasting glucose and random glucose. The ADA defines fasting as no caloric intake for at least 8 hours. Fasting plasma glucose results between 100 to 125 mg/dL indicate increased risk for diabetes (prediabetes). Fasting plasma glucose results greater than or equal to 126 mg/dL meet the criteria for diagnosis of diabetes. In the absence of unequivocal hyperglycemia, results should be confirmed by repeat testing. In a patient with classic symptoms of hyperglycemia or hyperglycemic crisis, random plasma glucose results greater than or equal to 200 mg/dL meet the criteria for diagnosis of diabetes. Reference: Standards of Medical Care in Diabetes 2016, [place] [employer] Association. Diabetes Care. 2016.39(Suppl 1). Performed By: #### 3 040-3, 36179-1 ####[facility] LABORATORYCLIA [id number] [place] [address] [place] Potassium [Moles/Vol] 3.6 mmol/L Low 3.7-5.1 [facility] Comment on above: Order Comment: Manuel valentine Type: BLOOD SPECIMENOrdering Facility: [facility] Address: [address] [place] [address] Performed By: #### 3 040-3, 35073-3 ####[facility]ORATORYCLIA [id number] [place] [id number] [place] Protein [Mass/Vol] 5.6 g/dL Low 6.3-8.0 [facility] Comment on above: Order Comment: Speci men Type: BLOOD SPECIMENOrdering Facility: [facility] Address: [address] [place] [address] Performed By: #### 3 040-3, ####[facility] LABORATORYCLIA [id number] [place] [id number] [place] Sodium [Moles/Vol] 141 mmol/L Normal 136-144 [facility] Comment on above: Order Comment: Speci men Type: BLOOD SPECIMENOrdering Facility: [facility] Address: [address] [place] [address] Performed By: #### 3 040, ####[facility] LABORATORYCLIA [id number] [place] [id number] [place] Urea nitrogen [Mass/Vol] 24 mg/dL Normal 9-24 [facility] Comment on above: Order Comment: Speci men Type: BLOOD SPECIMENOrdering Facility: [facility] Address: [address] [place] [address] Performed By: #### 3 040-3, 02043-9 ####[facility] LABORATORYCLIA [id number] [place] [id number] [place] Determination of erythrocyte mean corpuscular volume (MCV)Ordered By: Gordon Hill on 06-21-2023 MCV (RBC) [Entitic vol] 90.2 fL 80-94 [facility] ED NOTEon 06-21-2023 ED NOTE HNO ID: [id number] Author: German Jorgensen MD Service: ? Author Type: Physician Type: ED Notes Filed: 06/21/2023 6:12 PM Note Text: Pt presenting as trauma transfer from [place] for SDH. The pt reports possibly having a syncopal event. He reports feeling normal at this time. He reports only AC is 81mg ASA that he had this am. He was given labetalol at [place] for elevated BP with improvement there, per report. He had CT head and C-spine. Well-appearing Heart RRR w/o murmurs Lungs CTAB Distal pulses intact CN II-XII intact. No gross motor or sensory deficits. AANDOx3. CBC shows no significant leukocytosis or severe anemia (mild chronic thrombocytopenia) BMP shows no significant glucose or electrolyte abnormality or kidney injury Lipase shows no evidence of pancreatitis CT head (~1300) read shows acute SDH of cerebellar tentorium and cerebral falx w/o report of shift CT C-spine read shows no significant acute process XR pelvis shows no significant acute process CXR shows no significant acute process Trauma surgery and NSGY consulted. DDAVP administered after discussion with trauma surgery. Pt signed out to Dr. Gatica pending consults with plan for likely ICU admission. Critical Care I spent a total of 35 minutes of critical care time in the evaluation and management of this patient. This was necessary to treat or prevent deterioration of the following condition(s): DOCTOR OF NURSING PRACTICE impairment, which the patient had and/or has a high probability of suddenly developing. The patient received DDAVP, keppra and Consultation by NSGY and trauma during the time that critical care was provided.I discussed the plan of care with the RESIDENT and agree with the findings documented. Critical care time excludes separately billed procedures. MD German Vicente MD [facility] ED NOTE HNO ID: [id number] Author: Walter Reyes, Medic Service: ? Author Type: Executive Housekeeper and Radiologic Technologist Mammogram Type: ED Notes Filed: 06/21/2023 4:06 PM Note Text: Bed: 09-ED Expected date: 06/21/23 Expected time: 3:48 PM Means of arrival: [facility] Comments: [facility] transfer [facility] ED PROV NOTEon 06-21-2023 ED PROV NOTE HNO ID: [id number] Author: En Soria MD Service: Critical Care Author Type: Physician Type: ED Provider Notes Filed: 06/21/2023 6:50 PM Note Text: ED CONTINUATION OF CARE NOTE Code Status: Full Code Assumed care from: Dr. Jorgensen Presentation / Findings / Interventions / Plan / Items to Follow Up: Patient is an 88-year-old male transferred as a trauma found to have subdural hematoma now admitted to ICU. Remains hemodynamically stable and blood pressure remained stable here. Clinical Impressions as of 06/21/23 1849 SDH (subdural hematoma) (HCC) Fall, initial encounter Medical Decision Making SIGNATURE: En Soria MD PATIENT NAME: Deniz Kumar DATE: June 21, 2023 TIME: 5:48 PM PAGER/CONTACT #: EN SORIA 06/21/23 1850 Normal [facility] ED PROV NOTE HNO ID: [id number] Author: German Jorgensen MD Service: Emergency Medicine Author Type: Physician Type: ED Provider Notes Filed: 06/26/2023 9:38 AM Note Text: ED Provider Note Patient Name: Deniz Kumar : 1935 SERVICE DATE: 06/21/23 History Patient presents with: Functional Transfers: Transfer from [place]. Patient fell today while walking, + head trauma, - blood thinners. CT scan revealed SDH. Head laceration bleeding controlled on arrival. AANDOx4. 88-year-old male with past medical history of prior TIA, hypertension presents to ED as a transfer from outside hospital. Patient was seen initially at [facility]. He says that he was walking outside when he felt like his legs gave out and he fell and hit the back of his head. Denies any syncope. He is on a blood thinner. Denies any chest pain, shortness breath, back pain, neck pain or abdominal pain. At the outside ED a CT brain was obtained which showed a subdural hematoma. Patient subsequently transferred here for evaluation by trauma and neurology. PAST MEDICAL HISTORY Diagnosis Date Benign prostatic [...] Vaping Use Vaping Use: Never used Substance and Sexual Activity Alcohol use: Yes Alcohol/week: 1.0 standard drink of alcohol Types: 1 Cans of beer per week Comment: or less. Drug use: Not Currently Types: Marijuana Sexual activity: Not Currently ALLERGIES Allergen Reactions Clearasil Maximum S* Swelling Review of Systems Constitutional: Negative for chills, diaphoresis and fever. HENT: Negative for congestion, ear pain and sore throat. Eyes: Negative for photophobia, pain, redness and visual disturbance. Respiratory: Negative for cough and shortness of breath. Cardiovascular: Negative for chest pain and leg swelling. Gastrointestinal: Negative for abdominal pain, constipation, diarrhea, nausea and vomiting. Genitourinary: Negative for dysuria and frequency. Musculoskeletal: Negative for back pain and myalgias. Skin: Negative for rash. Neurological: Negative for syncope, weakness and numbness. Psychiatric/Behavioral: Negative for confusion. All other systems reviewed and are negative. Physical Exam Vitals BP Pulse Temp Temp src Resp SpO2 Weight Height -- -- -- -- -- -- -- -- Physical Exam Vitals and nursing note reviewed. Constitutional: General: He is not in acute distress. Appearance: Normal appearance. He is not ill-appearing. HENT: Head: Normocephalic. Right Ear: Tympanic membrane normal. Left Ear: Tympanic membrane normal. Nose: Nose normal. Mouth/Throat: Mouth: Mucous membranes are moist. Pharynx: Oropharynx is clear. Eyes: Extraocular Movements: Extraocular movements intact. Pupils: Pupils are equal, round, and reactive to light. Cardiovascular: Rate and Rhythm: Normal rate and regular rhythm. Pulses: Normal pulses. Heart sounds: No murmur heard. No gallop. Pulmonary: Effort: Pulmonary effort is normal. Breath sounds: Normal breath sounds. No wheezing or rhonchi. Abdominal: General: Abdomen is flat. There is no distension. Palpations: Abdomen is soft. Tenderness: There is no abdominal tenderness. There is no guarding or rebound. Musculoskeletal: General: No tenderness. Normal range of motion. Cervical back: Normal range of motion and neck supple. No tenderness. Comments: There is an abrasion to the back of the head. No hemotympanum bilaterally, no septal hematoma, no maxillary mandibular tenderness, no dental malocclusion. No cervical, thoracic or lumbar midline tenderness. No chest wall tenderness or signs of trauma No abdominal tenderness or signs of trauma Pelvis is stable and nontender Bilateral upper and lower extremities are grossly atraumatic Skin: General: Skin is warm. Capillary Refill: (more content not included)... Normal [facility] EKGon 06-21-2023 Electrocardiogram Ventricular Rate : 7 3 BPM Atrial Rate : 73 BPM P-R Interval : 144 ms QRS Duration : 72 ms Q-T Interval : 408 ms QTC Calculation(Bazett) : 449 ms Calculated P Sinai : 105 degrees Calculated R Sinai : -27 degrees Calculated T Sinai : -7 degrees NORMAL SINUS RHYTHM INFERIOR INFARCT , AGE UNDETERMINED LATERAL INJURY PATTERN ACUTE [place] / STEMI ABNORMAL ECG NO PREVIOUS ECGS AVAILABLE Confirmed by MD TOUSSAINT THOMAS ([id number]) on 07/07/2023 6:57:05 PM NAME : DENIZ KUMAR PID : [id number] : 1935 Gender : Male Race : ORD : Procedure Date : Jun 21 2023 16:41:11 Edit Date : Jul 07 2023 18:57:08 Diagnosis: NORMAL SINUS RHYTHM INFERIOR INFARCT , AGE UNDETERMINED LATERAL INJURY PATTERN ACUTE [place] / STEMI ABNORMAL ECG NO PREVIOUS ECGS AVAILABLE Confirmed by MD TOUSSAINT THOMAS ([id number]) on 07/07/2023 6:57:05 PM Test Reason : Location : 4 : [facility] ED 9 Overread By : MD TOUSSAINT THOMAS Edited By : MD TOUSSAINT THOMAS Referred By : , Acquired by : TONEY REYNOSO Normal [facility]anol [facility] Ethanol [Mass/Vol] mg/dL Normal <11 [facility] Comment on above: Order Comment: Speci men Type: BLOOD SPECIMENOrdering Facility: [facility] Address: [place] [address] Performed By: #### 5 643-2 ####[facility] LABORATORYCLIA [id number] [place] [address] [place] HISTORY PHYSICALon HISTORY PHYSICAL HNO ID: [id number] Author: Mariposa Cervantes MD Service: General Surgery Author Type: Physician Type: HANDP Filed: 06/22/2023 10:16 AM Note Text: TRAUMA SURGERY HANDP [facility] ARRIVAL DATE: 06/21/2023 ARRIVAL TIME: AM INJURY DATE: 06/21/2023 INJURY TIME: AM Subjective 88 year old male past medical history of TIA on aspirin presents as a trauma after falling while hiking. Patient states that he hit his head but did not lose consciousness. Was initially transferred to an outside ED where he underwent a CT scan that demonstrated a left tentorial and falx subdural hematoma. Takes a baby aspirin twice daily, last took this morning. Patient admitted to SICU due to head bleed. HPI/CHIEF COMPLAINT: fall resulting in SDH BRIEF DESCRIPTION OF INJURIES: SDH LAST FLUIDS/MEAL: unknown CODE STATUS: Not discussed ALLERGIES Allergen Reactions Clearasil Maximum S* Swelling (Not in a hospital admission) DATE OF LAST TETANUS: unknown Immunization History Administered Date(s) Administered COVID-19 original vaccine, age 12+ yr, monovalent (PFIZER-BIONTECH - VALENCIA TOP) 10/14/2021 COVID-19 original vaccine, age 12+ yr, monovalent (PFIZER-BIONTECH - PURPLE TOP) 07/07/2020 07/29/2020 04/05/2021 COVID-19 vaccine, age 12+ yr, 2022- season (PFIZER-BIONTECH) 04/05/2023 COVID-19 vaccine, age 12+ yr, bivalent (PFIZER-BIONTECH) 03/12/2022 12/21/2022 TD Adult 08/22/2007 influenza (HD-IIV3) vaccine, age 65+ yr, high dose, PF (FLUZONE HIGH-DOSE) 04/14/2015 03/23/2018 03/30/2019 03/30/2020 03/27/2022 influenza (HD-IIV4) vaccine, age 65+ yr, high dose, quadrivalent, PF (FLUZONE HIGH-DOSE) 03/17/2021 influenza (IIV3) vaccine, age 3+ yr, trivalent (AFLURIA, FLULAVAL, FLUVIRIN, FLUZONE) 04/13/2014 04/04/2016 influenza (IIV4) vaccine, age 6 mo - 64 yr, quadrivalent (AFLURIA, FLULAVAL, FLUZONE) 04/04/2017 influenza (aIIV4) vaccine, age 65+ yr, quadrivalent, PF (FLUAD QUAD) 03/25/2023 influenza vaccine, unspecified formulation 03/31/2012 03/31/2013 novel influenza (X8F3-03) vaccine, PF 06/29/2009 pneumococcal (PCV13) vaccine, 13 valent (PREVNAR 13) 01/13/2015 pneumococcal (PCV20) vaccine, 20 valent (PREVNAR 20) 02/08/2022 zoster (ZVL) vaccine, live (ZOSTAVAX) 06/19/2012 PAST MEDICAL HISTORY Diagnosis Date Benign prostatic [...] UMBILICAL HERNIA REPAIR 5 OR OLDER 09/21/2021 Social History Tobacco Use Smoking status: Former [...] Cancer Mother liver Hypertension Sister Lipids Sister Objective NEURO: Alert AND Oriented x 3, GCS 15, Cranial Nerves II-XII grossly Intact, Moves All Extremities, Strength Symmetrical, No Sensory Deficits. HEENT: Head: No lacerations or abrasions, no bony step-offs, midface stable to palpation. Eyes: PERRL, conjunctiva/corneas without lesions, EOMI. Ears: Canals without blood or CSF drainage, TMs clear, external ears without lacerations. Nose: Septum midline, no crepitus with motion. Throat: Oral mucosa without lacerations, teeth in place, tongue without lacerations. NECK: No midline pain with palpation, no lacerations/wounds, trachea midline. RESPIRATORY: No abrasions or contusions, no crepitus, chest wall without ttp, equal excursion. Unlabored breathing on RA CARDIOVASCULAR: regular rate, good perfusion throughout ABDOMEN: Soft, non-distended, non-tender, no scars or lacerations, no rebound or guarding. No masses or organomegaly. PELVIC/PERINEAL: Pelvis stable to palpation, no blood noted at urethra meatus, gluteal contraction intact. BACK/SPINE: Thoracolumbar spinal column non-tender, no step-off or deformity noted, no external injury noted. EXTREMITIES: Arm/shoulder normal bilaterally, forearm/elbow normal bilaterally, hand/wrist normal bilaterally, t (more content not included)... Normal [facility] Hematocrit Auto (Bld) [Volum e fraction]Ordered By: Gordon Hill on 06-21-2023 Hematocrit (Bld) [Volume fraction] 45.0 % 40-54 [facility] INR in Blood by Coagulation assayOrdered By: Gordon Hill on 06-21-2023 INR Coag (Bld) [Relative time] 1.1 {INR} [facility] - Chemistry and C hemistry - challengeOrdered By: Gordon Hill on 06-21-2023 ALP [Catalytic activity/Vol] 69 U/L 45-117 [facility] ALT [Catalytic activity/Vol] 20 U/L 16-61 [facility] CK [Catalytic activity/Vol] 75 U/L 39-308 [facility] CO2 [Moles/Vol] 25.0 mmol/L 21.0-32.0 [facility] Globulin (S) [Mass/Vol] 2.8 g/dL 2.2-4.2 [facility] Urea nitrogen/Creatinine [Mass ratio] 40.6 mg/mg 10-20 [facility] - CoagulationOrde red By: Gordon Hill on 06-21-2023 aPTT Coag (Bld) [Time] 25.2 s 24.1-36.[address] [facility] PT Coag (PPP) [Time] 14.0 s 11.7-14.9 [facility] - Hematology and Cell countsOrdered By: Gordon Hill on 06-21-2023 Erythrocyte distribution width (RBC) [Entitic vol] 41.4 fL 35.1-43.9 [facility] Erythrocyte distribution width (RBC) [Ratio] 12.7 % 11.6-14.6 [facility] Immature granulocytes/100 WBC (Bld) 0.600 % 0.0-0.9 [facility] Comment on above: IG% - Immature Granu locytes (promyelocytes, myelocytes and metamyelocytes) > 1% indicates that a LEFT SHIFT is Present. MCH (RBC) [Entitic mass] 30.1 pg 27.0-32.0 [facility] Nucleated RBC/100 WBC (Bld) [Ratio] 0 % 0-5 [facility] Lipase SerPl-cCncon 06-21-20 Lipase [Catalytic activity/Vol] 13 U/L Low 16-61 [facility] Comment on above: Order Comment: Speci men Type: BLOOD SPECIMENOrdering Facility: [facility] Address: [address] [place] [address] Performed By: #### 3 040-3, 01432-9 ####[facility] LABORATORYCLIA [id number] [place] [address] [place] MCHC Auto (RBC) [Mass/Vol]Or dered By: Gordon Hill on 06-21-2023 MCHC (RBC) [Mass/Vol] 33.3 g/dL 32-36 [facility] No Panel InformationOrdered By: Gordon Hill on 06-21-2023 Estimated Creatinine Clearance Calc 70.52 ml/min [facility] Estimated GFR (MDRD) Amer 115 mL/min >60 [facility] Comment on above: GFR Calc Estimated GFR (MDRD) Non-Af Amer 95 mL/min >60 [facility] Comment on above: Non- GFR Calc PT panel Coag (PPP)on 2022 INR Coag (PPP) [Relative time] 1.1 {INR} Normal 0.9-1.3 [facility] Comment on above: Order Comment: Specomer valentine Type: BLOOD SPECIMENOrdering Facility: [facility] Address: [address] [place] [address] Result Comment: Christie min K Antagonist (VKA) Therapeutic Range: INR 2 to 3 (Target INR of 2.5) Note: For patients treated with VKA drugs, such as warfarin, the [place] [employer] 2012 Guideline recommends a therapeutic INR range of 2 to 3 (target INR of 2.5). This recommendation includes high-risk patients with antiphospholipid syndrome with previous arterial or venous thromboembolism, current-generation mechanical or bioprosthetic aortic heart valve replacement. Note: Patients with mechanical aortic valve replacement and additional risk factors for thromboembolic events (atrial fibrillation, previous thromboembolism, LV dysfunction, hypercoagulable conditions) or an older generation mechanical AVR (i.e., ball in-Cage) or any mechanical MVR should have a INR therapeutic range of 2.5 to 3.5 (target INR of 3). Kaylyn HODGE, et al. Chest 2012, 141:7S-47S Meagan RA, et al. [facility] 2017, 70: 252-289 Performed By: #### 3 4528-0, 24181-9 ####[facility] LABORATORYCLIA [id number] [place] [address] [place] PT Coag (PPP) [Time] 11.3 s Normal 9.7-13.0 [facility] Comment on above: Order Comment: Manuel valentine Type: BLOOD SPECIMENOrdering Facility: [facility] Address: [address] [place] [address] Performed By: #### 3 4528-0, 18227-5 ####[facility] LABORATORYCLIA [id number] [place] [address] [place] Platelets bldOrdered By: Vimal Hill on 06-21-2023 Platelets (Bld) [#/Vol] 109 10*3/uL 150-450 [facility] STAPH AUREUS PCRon S. aureus and MRSA panel GM+probe (Nose) Normal Negative [facility] Comment on above: Order Comment: Speci men Type: SWAB OF INTERNAL NOSEOrdering Facility: [facility] Address: [address] [place] [address] Result Comment: Nega tive for Staphylococcus aureus by PCR. Negative for MRSA by PCR Performed By: #### S APCR ####[facility] LABORATORYCLIA [id number] [address] STATES OF [facility] Serum or plasma albumin sharon urement (mass/volume)Ordered By: Gordon Hill on 06-21-2023 Albumin [Mass/Vol] 3.3 g/dL 3.2-5.0 [facility] Serum or plasma albumin/glob ulin mass ratioOrdered By: Gordon Hill on 06-21-2023 Albumin/Globulin [Mass ratio] 1.2 {ratio} 0.9-2.4 [facility] Serum or plasma calcium sharon urement (mass/volume)Ordered By: Gordon Hill on 06-21-2023 Calcium [Mass/Vol] 8.6 mg/dL 8.5-10.1 [facility] Serum or plasma creatinine m easurement (mass/volume)Ordered By: Gordon Hill on 06-21-2023 Creatinine [Mass/Vol] 0.81 mg/dL 0.70-1.30 [facility] Comment on above: The validity of the calculated GFR & GFRAA in patients over 70 years has not been determined. Clinical correlation is essential. Serum or plasma urea nitroge n measurement (mass/volume)Ordered By: Gordon Hill on 06-21-2023 Urea nitrogen [Mass/Vol] 33 mg/dL 7-18 [facility] TYPE + SCREENon 06-21-2023 ABO O Normal [facility] Comment on above: Order Comment: Speci men Type: BLOOD SPECIMEN [facility] Address: [address] [place] [address] Performed By: #### T SCR #### [facility] CLIA [id number] [address] HISTORICAL AB SCR STATUS Negative Normal [facility] Comment on above: Order Comment: Speci men Type: BLOOD SPECIMEN [facility] Address: [address] [place] [address] Performed By: #### T SCR #### [facility] CLIA [id number] [address] Rh Nom (Bld) Positive Normal [facility] Comment on above: Order Comment: Speci men Type: BLOOD SPECIMEN [facility] Address: [address] [place] [address] Performed By: #### T SCR #### [facility] CLIA [id number] [address] TYPE AND SCREEN EXPIRATION 06/24/2023 23:59 Normal [facility] Comment on above: Order Comment: Speci men Type: BLOOD SPECIMEN [facility] Address: [address] [place] [address] Performed By: #### T SCR #### [facility] CLIA [id number] [address] Thin prep Papanicolaou smear with manual screeningOrdered By: Gordon Hill on 06-21-2023 Thin prep Papanicolaou smear with manual screening 18 U/L 15-37 [facility] Thin prep Papanicolaou smear with manual screening 6 5-15 [facility] XR ANKLE 3V AP/LAT/OBL LTon 06-21-2023 XR ANKLE 3V AP/LAT/OBL LT * * *Final Report* * * DATE OF EXAM: Jun 21 2023 11:20PM [id number] [id number] - XR ANKLE 3V AP/LAT/OBL LT / PROCEDURE REASON: Ankle pain, no prior imaging * * * * Physician Interpretation * * * * AP, LATERAL, OBLIQUE VIEWS OF THE LEFT ANKLE CLINICAL HISTORY: Ankle pain, no prior imaging COMPARISONS: None. FINDINGS: Lateral malleolar soft tissue swelling, with underlying obliquely oriented fracture distal fibula. There is some slight widening of the tibiofibular syndesmosis. No other evidence of fracture at the left ankle. The mortise is otherwise grossly intact. IMPRESSION: Obliquely oriented distal fibular fracture with involvement of the tibiofibular syndesmosis (Wong C). Marketing Database Analyst: KATIA Transcribe Date/Time: Jun 21 2023 11:20P Dictated by : KATHERINE BLOOD MD This examination was interpreted and the report reviewed and electronically signed by: KATHERINE BLOOD MD on Jun 21 2023 11:24PM EST [id number] Normal [facility] XR CHEST 1V FRONTALon 2022 XR CHEST 1V FRONTAL * * *Final Report* * * DATE OF EXAM: Jun 21 2023 4:35PM [id number] - XR CHEST 1V FRONTAL / PROCEDURE REASON: Shortness of breath * * * * Physician Interpretation * * * * EXAMINATION: CHEST RADIOGRAPH (SINGLE VIEW AP OR PA) CLINICAL HISTORY: Shortness of breath MQ: XC1_5 Comparison: None RESULT: Lines, tubes, and devices: None. Lungs and pleura: No consolidation. No lung mass. No pleural effusion. Cardiomediastinal silhouette: Heart is not enlarged. The aorta is tortuous. Other: . IMPRESSION: No acute radiographic abnormality. Marketing Database Analyst: [email or web address] Transcribe Date/Time: Jun 21 2023 4:48P Dictated by : WILLARD BRASHER MD This examination was interpreted and the report reviewed and electronically signed by: WILLARD BRASHER MD on Jun 21 2023 4:48PM EST [id number] Normal [facility] XR PELVIS 1V APon 06-21-2023 XR PELVIS 1V AP * * *Final Report* * * DATE OF EXAM: Jun 21 2023 4:35PM [id number] - XR PELVIS 1V AP / PROCEDURE REASON: Pelvic fracture * * * * Physician Interpretation * * * * EXAM TITLE: XR PELVIS 1V AP DATE: 06/21/2023 4:49 PM INDICATION: Pelvic pain secondary to a fall COMPARISON: None. FINDINGS: Degenerative changes at the lumbar spine and both hips. Osteopenia. No acute fracture or dislocation. No acute soft tissue abnormality. IMPRESSION: No acute radiographic abnormality. Marketing Database Analyst: PSCB Transcribe Date/Time: Jun 21 2023 4:49P Dictated by : WILLARD BRASHER MD This examination was interpreted and the report reviewed and electronically signed by: WILLARD BRASHER MD on Jun 21 2023 4:49PM EST [id number] Normal [facility] aPTT PPPon 06-21-2023 aPTT Coag (PPP) [Time] 26.3 s Normal 23.0-32.4 [facility] Comment on above: Order Comment: Speci men Type: BLOOD SPECIMENOrdering Facility: [facility] Address: [address] [place] [address] Performed By: #### 3 4528-0, 61629-8 ####[facility] LABORATORYCLIA [id number] [place] [address] [place] UA DIP, URINE (POC)on 2022 BILIRUBIN UA (POCT) Negative Negative [facility] CLARITY UA (POCT) Clear [facility] COLOR UA (POCT) Yellow [facility] GLUCOSE UA (POCT) Negative Negative mg/dL [facility] HEMOGLOBIN/BLOOD UA (POCT) Negative Negative [facility] KETONE UA (POCT) Negative Negative mg/dL [facility] LEUKOCYTES UA (POCT) Negative Negative [facility] NITRITE UA (POCT) Negative Negative [facility] PH UA (POCT) 5.5 4.5 - 8.0 [facility] Protein Ql (U) 30 mg/dL Abnormal Negative mg/dL [facility] SPECIFIC GRAVITY UA (POCT) 1.025 1.005 - 1.030 [facility] UROBILINOGEN UA (POCT) 0.2 E.U./dL Gema l E.U./dL [facility] UA DIP, URINE (POC)on 2022 BILIRUBIN UA (POCT) Negative Negative [facility] CLARITY UA (POCT) Clear [facility] COLOR UA (POCT) Yellow [facility] GLUCOSE UA (POCT) Negative Negative mg/dL [facility] HEMOGLOBIN/BLOOD UA (POCT) Negative Negative [facility] KETONE UA (POCT) Negative Negative mg/dL [facility] LEUKOCYTES UA (POCT) Negative Negative [facility] NITRITE UA (POCT) Negative Negative [facility] PH UA (POCT) 5.5 4.5 - 8.0 [facility] Protein Ql (U) Negative Negative mg/dL [facility] SPECIFIC GRAVITY UA (POCT) 1.025 1.005 - 1.030 [facility] UROBILINOGEN UA (POCT) 0.2 E.U./dL Gema l E.U./dL [facility] EMERGENCY DEPARTMENT REPORTo n 11-04-2018 EMERGENCY [place]PART[place] [address] HEALTH INFORMATION MANAGEMENT EMERGENCY DEPARTMENT REPORT Patient: DENIZ KUMARGERMAN M.D. [id number] [age] M Status: DEP ER ED Date of Service: 10/29/18 CHIEF COMPLAINT Reported to be difficulty with speech, left-sided weakness. HISTORY OF PRESENT ILLNESS The patient is an 83-year-old white male who states that he woke up this morning at about 6:30, noticed he had some left-sided weakness, trouble shaving with his left hand. That symptom has resolved now. He states that after arriving at work, he realized he was having some trouble with speech, trouble finding his words. His co-workers advised him that he needed to be here, so they brought him here for evaluation. PAST MEDICAL HISTORY Hypertension. PAST SURGICAL HISTORY None. SOCIAL HISTORY No tobacco use. MEDICATIONS Losartan and melatonin. ALLERGIES NO KNOWN DRUG ALLERGIES. REVIEW OF SYSTEMS General: No fevers or chills. Head: No headache. Neck: No neck pain. Back: No back pain. Cardiac: No chest pain or palpitations. Pulmonary: No shortness of breath or cough. Abdomen: No abdominal pain. No nausea or vomiting. Extremities: Positive for left-sided weakness, resolved. Neurologic: Positive for difficulty with speech, improving. No numbness or paresthesias. PHYSICAL EXAMINATION General examination reveals a well-developed, well-nourished male resting comfortably. Vital signs reveal blood pressure 143/87, temperature 98.7, pulse 86, respiratory rate 16, and pulse oximetry 95% on room air. The head is normocephalic and atraumatic. Ocular examination reveals the pupils to be equal, round, and reactive to light. Sclerae are anicteric. Examination of the oropharynx reveals mucous membranes to be moist with no erythema, exudates, or lesions. Cardiovascular examination reveals a normal S1 and S2, regular rate and rhythm, with no murmurs, gallops, or rubs. Pulmonary examination reveals breath sounds to be clear to auscultation bilaterally with no wheezes, rales, or rhonchi. Abdomen is soft, positive bowel sounds and no peritoneal signs. Examination of the extremities reveals strength 5/5 bilateral upper and lower extremities. Neurological examination reveals the patient to be alert and oriented x3. Cranial nerves II-XII are grossly intact. He does have slightly slow, pressured speech. No slurred words. NIH upon initially presentation is 1. At this time, it is zero. EMERGENCY DEPARTMENT EVALUATION CBC revealed white blood cell count 4.8, hemoglobin 15.4, hematocrit 45.6, and platelet count 133. Chemistry showed sodium 141, potassium 3.7, chloride 102, bicarbonate 27, BUN 31, creatinine 1.03, glucose 109, and calcium of 9.1. PT is 11.5. INR is 1.1. PTT is 35.9. Troponin is less than 0.010. EKG shows normal sinus rhythm, normal axis and intervals, no acute ST- or T-wave abnormalities. A CT of the head, read by Radiology, is negative. A CT angio of the head and neck are negative as well. EMERGENCY DEPARTMENT COURSE I did have a conversation with the tele-neurologist armor reconnaissance specialist at the main campus of the [facility]. We agreed at this point the patient is not a tPA candidate. At this point, I had a lengthy discussion with the patient in regards to the risk of recurrent symptoms and increased risk of CVA over the next several days to a month. I explained to him the benefits of staying in the hospital, including an expedited workup to minimize his risk as well as being in-house should he have recurrent symptoms and be here for treatment immediately. He is aware of the risks of going home of not having expeditious workup if having recurrent symptoms, potential permanent disability. At this point, he states that he wants to go home. He does have the capacity to make this decision. IMPRESSION TIA. PLAN Plan will be for discharge. He was advised to follow up with his primary care provider within the next 1-2 days and take a baby aspirin per day. Return immediately to the nearest emergency department for difficulty with speech, facial drooping, arm and/or leg weakness. The patient is aware of the management plan and he is in agreement. 11/13/18 0453 GERMAN JOYNER M.D. cc: GERMAN JOYNER M.D. << Signature on File>> Reported By: GERMAN JOYNER M.D. Signed By: GERMAN JOYNER M.D. Tests performed at: [place] [address] [facility] BMPon 10-29-2018 Anion gap molar conc 15.7 mmol/L Normal 15-22 [facility] Comment on above: Performed By: #### L 301.0120, L100.0010 #### [facility] [address] [place] [address]46 Calcium mass conc 9.1 mg/dL Normal 8.8-10.2 [facility] Comment on above: Performed By: #### L 301.0120, L100.0010 #### [facility] [address] [place] [address] 43056 Chloride molar conc 102 mmol/L Normal 98-107 [facility] Comment on above: Performed By: #### L 301.0120, L100.0010 #### [facility] [address] [place] [address] 61244 CO2 molar conc 27 mmol/L Normal 22-29 [facility] Comment on above: Performed By: #### L 301.0120, L100.0010 #### [facility] [address] [place] [address] 69587 Creatinine mass conc 1.03 mg/dL Normal 0.70-1.20 [facility] Comment on above: Performed By: #### L 301.0120, L100.0010 #### [facility] [address] [place] [address] 53880 eGFR if AFR WILMER > 60 ml/min/1.73m2 Normal Pending [facility] Comment on above: Result Comment: eGFR >= 60 Indicates normal kidney function. * eGFR IS AN ESTIMATE * (AFR WILMER = ) (non-AFR AM = NON-) MDRD calculation used in the eGFR should not be used to dose medications. For further limitations of the eGFR please refer to the Physician Website or the National Kidney Disease Education Program website (www.nkdep.nih.gov). Performed By: #### L 301.0120, L100.0010 #### [facility] [address] [place] [address] 04619 eGFR nonAFR Wilmer > 60 ml/Min/1.73m2 Normal [facility] Comment on above: Performed By: #### L 301.0120, L100.0010 #### [facility] [address] [place] [address] 58986 Glucose mass conc 109 mg/dL Normal 82-115 [facility] Comment on above: Performed By: #### L 301.0120, L100.0010 #### [facility] [address] [place] [address] 43365 Potassium molar conc 3.7 mmol/L Normal 3.5-5.0 [facility] Comment on above: Performed By: #### L 301.0120, L100.0010 #### [facility] [address] [place] [address] 76184 Sodium molar conc 141 mmol/L Normal 135-145 [facility] Comment on above: Performed By: #### L 301.0120, L100.0010 #### [facility] [address] [place] [address] 32823 Urea nitrogen mass conc 31 mg/dL High 8-23 [facility] Comment on above: Performed By: #### L 301.0120, L100.0010 #### [facility] [address] [place] [address] 14736 CBCon 10-29-2018 Basophils #/vol (Bld) 0.00 x10(3) Normal 0.00-0.10 [facility] Comment on above: Performed By: #### L 200.0010 #### [facility] [address] [place] [address] 31129 Basophils/100 WBC (Bld) 0.4 % Normal 0.0-1.0 [facility] Comment on above: Performed By: #### L 200.0010 #### [facility] [address] [place] [address] 46527 Eosinophils #/vol (Bld) 0.00 x10(3) Normal 0.00-0.54 [facility] Comment on above: Performed By: #### L 200.0010 #### [facility] [address] [place] [address] 49466 Eosinophils/100 WBC (Bld) 0.9 % Normal 0.5-4.9 [facility] Comment on above: Performed By: #### L 200.0010 #### [facility] [address] [place] [address] 18903 Erythrocyte distribution width Ratio (RBC) 13.3 % Normal 12.5-15.7 [facility] Comment on above: Performed By: #### L 200.0010 #### [facility] [address] [place] [address] 13121 Hematocrit Volume Fraction (Bld) 45.6 % Normal 36.0-48.0 [facility] Comment on above: Performed By: #### L 200.0010 #### [facility] [address] [place] [address] 54230 Hemoglobin mass conc (Bld) 15.4 g/dL Normal 12.0-16.0 [facility] Comment on above: Performed By: #### L 200.0010 #### [facility] [address] [place] [address] 43947 Lymphocytes #/vol (Bld) 1.20 x10(3) Normal 1.00-3.50 [facility] Comment on above: Performed By: #### L 200.0010 #### [facility] [address] [place] [address] 24396 Lymphocytes/100 WBC (Bld) 25.9 % Normal 16.0-48.0 [facility] Comment on above: Performed By: #### L 200.0010 #### [facility] [address] [place] [address] 76454 MCH Entitic mass (RBC) 30.7 pg Normal 28.5-32.9 [facility] Comment on above: Performed By: #### L 200.0010 #### [facility] [address] [place], [place] [address] 97366 MCHC mass conc (RBC) 33.8 g/dL Normal 33.0-36.0 [facility] Comment on above: Performed By: #### L 200.0010 #### [facility] [address] [place] [address] 61099 MCV Entitic volume (RBC) 90.8 fL Normal 80.0-99.0 [facility] Comment on above: Performed By: #### L 200.0010 #### [facility] [address] [place] [address] 55955 Monocytes #/vol (Bld) 0.50 x10(3) Normal 0.30-0.80 [facility] Comment on above: Performed By: #### L 200.0010 #### [facility] - LABORATORY [address] [place] [address] 68082 Monocytes/100 WBC (Bld) 11.3 % High 4.3-11.2 Pending sale to [facility] Comment on above: Performed By: #### L 200.0010 #### [facility] - LABORATORY [address] [place] [address] 15362 Neutrophils #/vol (Bld) 2.90 x10(3) Normal 1.40-6.50 [facility] Comment on above: Performed By: #### L 200.0010 #### [facility] - LABORATORY [address] [place] [address] 81970 Neutrophils/100 WBC (Bld) 61.5 % Normal 45.0-73.0 [facility] Comment on above: Performed By: #### L 200.0010 #### [facility] - [facility]AT[facility] [address] [place] [address] 04716 Platelet mean volume Entitic volume (Bld) 8.3 fL Normal 7.5-9.5 [facility] Comment on above: Performed By: #### L 200.0010 #### [facility] - [facility] [address] [place] [address] 10672 Platelets #/vol (Bld) 133 X10(3) Low 150-450 [facility] Comment on above: Performed By: #### L 200.0010 #### [facility] - [facility]ATORY [address] [place] [address] 24285 RBC #/vol (Bld) 5.02 x10(6) High 3.30-5.00 [facility] Comment on above: Performed By: #### L 200.0010 #### [facility] - [facility]ATORY [address] [place] [address] 95462 WBC #/vol (Bld) 4.8 x10(3) Normal 4.5-10.0 [facility] Comment on above: Performed By: #### L 200.0010 #### [facility] - [facility]AT[facility] [address] [place] [address] ANGIO HEAD W/WO CONTRASTo n 10-29-2018 CT ANGIO HEAD W/WO CONTRAST [address] [address] Name: DENIZ KUMAR Phys: GERMAN JOYNER M.D. : 36 Age: 83 Sex: M Acct: [id number] Loc: ED Exam Date: 10/29/18 Status: DEP ER Radiology No.: [id number] Unit Number: [id number] Exam # Type/Exam [id number] CT / CT ANGIO HEAD W/WO CONTRAST PROCEDURE: CT angiogram of the brain. HISTORY: Left-sided weakness. Stroke. Difficulty speaking. TECHNIQUE: Thin section axial imaging was obtained with intravenous contrast with sagittal and coronal and 3-D reconstructions with image post processing on a separate computer workstation. COMPARISON: None FINDINGS: The bilateral internal carotid arteries, anterior, middle and posterior shaver arteries as well as the basilar artery and vertebral arteries are patent, free of significant aneurysmal dilatation or arteriovenous malformation. IMPRESSION: Unremarkable CT angiogram of the brain. This exam was performed according to our departmental dose optimization program, and includes the following measures where applicable: automated exposure control, adjustment of the mAs and/or kVp according to patient size and/or exam, and an iterative reconstruction algorithm. Professional interpretation provided by [facility] [place], [place] on [employer]-PC-60. Thank you for this referral. < > Reported By: ALEJANDRO RICHARDSON M.D. Signed In NovaPro By: ALEJANDRO RICHARDSON M.D. << Signature on File>> Reported By: ALEJANDRO RICHARDSON M.D. Signed By: ALEJANDRO RICHARDSON M.D. Tests performed at: [address] [address] Normal [facility] CT ANGIO NECK W/WO CONTRASTo n 10-29-2018 CT ANGIO NECK W/WO CONTRAST [address] [address] Name: DENIZ KUMAR Phys: GERMAN JOYNER M.D. : 36 Age: 83 Sex: M Acct: [id number] Loc: ED Exam Date: 10/29/18 Status: [facility] Radiology No.: [id number] Unit Number: [id number] Exam # Type/Exam [id number] CT / CT ANGIO NECK W/WO CONTRAST PROCEDURE: CT angiogram of the neck HISTORY: Stroke. Left-sided weakness and speech difficulty. TECHNIQUE: Thin section axial imaging was obtained with intravenous contrast with sagittal and coronal and 3-D reconstructions with image post processing on a separate computer workstation. Measurements made in this study are based on NASCET criteria. COMPARISON: None FINDINGS: Aortic arch: Widely patent. Right subclavian artery: Widely patent. Right common carotid artery: Widely patent. Right internal carotid artery: Widely patent. Right external carotid artery: Widely patent. Right vertebral artery: Widely patent. Left subclavian artery: Widely patent. Left common carotid artery: Widely patent. Left internal carotid artery: Widely patent. Left external carotid artery: Widely patent. Left vertebral artery: Widely patent. Soft tissues: Unremarkable. IMPRESSION: Unremarkable CT angiogram of the brain. This exam was performed according to our departmental dose optimization program, and includes the following measures where applicable: automated exposure control, adjustment of the mAs and/or kVp according to patient size and/or exam, and an iterative reconstruction algorithm. Professional interpretation provided by [facility] [place], [place] on RAC-PC-60. Thank you for this referral. < > Reported By: ALEJANDRO RICHARDSON M.D. Signed In Nova[employer] By: ALEJANDRO RICHARDSON M.D. << Signature on File>> Reported By: ALEJANDRO RICHARDSON M.D. Signed By: ALEJANDRO RICHARDSON M.D. Tests performed at: [address] [address] Normal [facility] CT BRAIN WITHOUT CONTRAST- C TBon 10-29-2018 CT BRAIN WITHOUT CONTRAST- CTB [address] [address] Name: DENIZ KUMAR Phys: GERMAN JOYNER M.D. : 36 Age: 83 Sex: M Acct: [id number] Loc: ED Exam Date: 10/29/18 Status: DEP ER Radiology No.: [id number] Unit Number: [id number] Exam # Type/Exam [id number] CT / CT BRAIN WITHOUT CONTRAST- CTB CT of the Head - Noncontrast : Clinical Statement: Transient aphasia and left-sided weakness. Comparison Study: None. Findings: The skull base and cranium are intact. Visualized sinuses and mastoids appear clear. [ ] There is no acute hemorrhage, edema or mass effect. No evolving territorial infarct is identified. The ventricular system and subarachnoid spaces are normal. There is no midline shift or extra-axial collections. [ ] IMPRESSION: [] No acute intracranial process. This exam was performed according to our departmental dose optimization program, and includes the following measures where applicable: automated exposure control, adjustment of the mAs and/or kVp according to patient size and/or exam, and an iterative reconstruction algorithm. Professional interpretation provided by [facility] [place], [place] on RAC-PC-66. Thank you for this referral. < > Reported By: KATHY RUIZ D.O. Signed In NovaPro By: KATHY RUIZ D.O. << Signature on File>> Reported By: KATHY RUIZ D.O. Signed By: KATHY RUIZ D.O. Tests performed at: [address] [address] Normal [facility] GLUCOSE FSon 10-29-2018 Glucose mass conc 93 mg/dL Normal 70-110 [facility] Comment on above: Performed By: #### L 100.0070 #### [facility] [address] [place] [address]28[address] PROGRESSon 10-29-2018 Protein mass conc HNO ID: [id number] Author: Jacquie Agosto Service: ? Author Type: Physician Type: Progress Notes Filed: 10/29/2018 9:55 PM Note Text: TELESTROKE DOCUMENTATION Name: Deniz Kumar : 1935 Site: [facility] Dr. Joyner Last Known Well (Date/Time): 10/29/18 0730 Neurologist Evaluation (Date/Time): 10/29/18 4218 Chief Complaint: left sided weakness and dysarthria HPI: 83 year old male,presented to the ED with left sided weakness and speech difficulty. Upon arrival, his symptoms improved. His NIHSS was 1. NIHSS Telestroke Type: Telephone Only Site Reported NIHSS: [address] Imaging reviewed, NO acute infarct/hemorrhage seen CTA Imaging not available or not performed Summary Suspected ACUTE ischemic stroke IV tPA Arrival Window: No - Last Known Well greater than 4.5 Hour Window IV tPA Exclusion Criteria: Potential Candidate for Endovascular Therapy: Uncertain - NIHSS less than 6, further imaging needed Disposition The patient will remain at the referring institution for further evaluation and management Thank you for contacting the [facility]. I appreciate the opportunity for allowing me to participate in Deniz Kumar's care. Please feel free to contact me and/or the [facility] at any time if you have any further questions or need additional assistance. Jacquie Agosto MD October 29, 2018 9:46 PM Normal [facility] PTon 10-29-2018 INR Coag RelTime (PPP) 1.1 {INR} Normal [facility] Comment on above: Result Comment: CO UMADIN PROTOCOLS INR values are generated for use in patients on coumadin. INR values stabilize 7 days after the start of coumadin or changes in coumadin dosage. The usual TARGET/INR range is: INDICATION INR RANGE Prophylaxis/treatment of: Venous Thrombosis, Pulmonary Embolism 2.0-3.0 Prevention of systemic embolism from: Tissue heart valves 2.0-3.0 Acute myocardial infarction (to prevent systemic embolism) 2.0-3.0 AMI (to prevent recurrent [place]) 2.5-3.5 Valvular heart disease 2.0-3.0 Atrial fibrillation 2.0-3.0 Mechanical prosthetic valves (high risk) 2.5-3.5 Bileaflet mechanical valve in aortic position 2.0-3.0 Presence of Lupus Anticoagulant or Antiphospholipid Antibodies 2.5-3.5 PANIC VALUE: GREATER THAN OR EQUAL TO 4.5 Performed By: #### L 200.1642, L200.1602 #### [facility] - [facility]ATORY [address] [place] [address] 68293 Prothrombin time (PT) Coag time (PPP) 11.5 s Normal 9.4-12.5 [facility] Comment on above: Performed By: #### L 200.1642, L200.1602 #### [facility] - [facility]ATORY [address] [place] [address] 39028 PTTon 10-29-2018 aPTT Coag time (Bld) 35.9 s Normal 25.1-36.5 [facility] Comment on above: Result Comment: Hepa rin Protocol Therapeutic Range = 54.0-90.0 secs Performed By: #### L 200.1642, L200.1602 #### [facility] [address] [place] [address] 49472 TROPONIN Ton 10-29-2018 Troponin T.cardiac mass conc ug/L Normal 0-0.010 [facility] Comment on above: Performed By: #### L 301.0120, L100.0010 #### [facility] - [facility]ATORY [address] [place] [address] 48588 XR ANKLE GENERAL 3V AP/LAT/O BL LEFT [facility] Vital Signs Date Time Vital Sign Value Performing Clinician Facility 11-30-2024 15:33-0400 Diastolic blood pressure 89 mm[Hg] Dr. Vadim Deras MD Work Phone: 1(327)805-998004 [place] [address] 11-30-2024 15:33-0400 Heart rate 61 /min Dr. Vadim Deras MD Work Phone: 7(004)356-423204 [place] [address] 11-30-2024 15:33-0400 Systolic blood pressure 169 mm[Hg] Dr. Vadim Deras MD Work Phone: 8(899)798-071404 [place] [address] 11-30-2024 14:13-0400 Body height 182.[address] Vadim Deras MD Work Phone: 1(533)870-824304 [place] [address] 11-30-2024 14:13-0400 Body mass index (BMI) [Ratio] 28.5 kg/m2 Dr. Vadim Deras MD Work Phone: 5(593)592-548004 [place] [address] 11-30-2024 14:13-0400 Body temperature 98.1 [degF] Dr. Vadim Deras MD Work Phone: 9(490)620-199804 [place] [address] 11-30-2024 14:13-0400 Body weight 95.[address] Vadim Deras MD Work Phone: 8(329)199-619304 [place] [address] 11-30-2024 14:13-0400 Respiratory rate 18 /min Dr. Vadim Deras MD Work Phone: 3(565)511-636104 [place] [address] 11-30-2024 14:13-0400 SaO2% (BldA) [Mass fraction] 99 % Dr. Vadim Deras MD Work Phone: 6(003)099-391004 [place] [address] 09-04-2024 08:09-0500 Body mass index (BMI) [Ratio] 29.39 kg/m2 Bonifacio Ledbetter Jr., MD Work Phone: [facility] 09-04-2024 08:09-0500 Body weight 98.29 kg Bonifacio Ledbetter Jr., MD Work Phone: 5(479)048-527250 [place] [address] 09-04-2024 08:09-0500 Heart rate 57 /min Bonifacio Ledbetter Jr., MD Work Phone: [facility] 09-04-2024 08:09-0500 Respiratory rate 18 /min Bonifacio Ledbetter Jr., MD Work Phone: [facility] 09-04-2024 08:09-0500 SaO2% (BldA) [Mass fraction] 97 % Bonifacio Ledbetter Jr., MD Work Phone: [facility] 06-26-2024 10:13-0500 Body mass index (BMI) [Ratio] 29.36 kg/m2 Bonifacio Ledbetter Jr., MD Work Phone: [facility] 06-26-2024 10:13-0500 Body weight 98.2 kg Bonifacio Ledbetter Jr., MD Work Phone: [facility] 06-26-2024 10:13-0500 Diastolic blood pressure 85 mm[Hg] Bonifacio Ledbetter Jr., MD Work Phone: [facility] 06-26-2024 10:13-0500 Heart rate 68 /min Bonifacio Ledbetter Jr., MD Work Phone: [facility] 06-26-2024 10:13-0500 SaO2% (BldA) [Mass fraction] 97 % Bonifacio Ledbetter Jr., MD Work Phone: [facility] 06-26-2024 10:13-0500 Systolic blood pressure 132 mm[Hg] Bonifacio Ledbetter Jr., MD Work Phone: [facility] 03-13-2024 09:31-0400 Diastolic blood pressure 90 mm[Hg] Bonifacio Ledbetter Jr., MD Work Phone: [facility] 03-13-2024 09:31-0400 Systolic blood pressure 145 mm[Hg] Bonifacio Ledbetter Jr., MD Work Phone: [facility] 03-13-2024 09:25-0400 Body mass index (BMI) [Ratio] 29.38 kg/m2 Bonifacio Ledbetter Jr., MD Work Phone: [facility] 03-13-2024 09:25-0400 Body weight 98.25 kg Bonifacio Ledbetter Jr., MD Work Phone: [facility] 03-13-2024 09:25-0400 Heart rate 62 /min Bonifacio Ledbetter Jr., MD Work Phone: [facility] 03-13-2024 09:25-0400 SaO2% (BldA) [Mass fraction] 96 % Bonifacio Ledbetter Jr., MD Work Phone: [facility] 02-21-2024 09:28-0400 Diastolic blood pressure 73 mm[Hg] Vadim Deras MD Work Phone: [facility] Comment on above: BP Kvng average 02-21-2024 09:28-0400 Heart rate 79 /min Vadim Deras MD Work Phone: [facility] 02-21-2024 09:28-0400 Systolic blood pressure 112 mm[Hg] Vadim Deras MD Work Phone: [facility] Comment on above: BP Kvng average 02-21-2024 09:090400 Body height 182.9 cm Vadim Deras MD Work Phone: [facility] 02-21-2024 09:09-0400 Body mass index (BMI) [Ratio] 28.91 kg/m2 Vadim Deras MD Work Phone: [facility] 02-21-2024 09:09-0400 Body weight 96.7 kg Vadim Deras MD Work Phone: [facility] 02-21-2024 09:09-0400 Respiratory rate 16 /min Vadim Deras MD Work Phone: [facility] 02-21-2024 09:09-0400 SaO2% (BldA) [Mass fraction] 98 % Vadim Deras MD Work Phone: [facility] 11-21-2023 10:12-0400 Diastolic blood pressure 87 mm[Hg] Vadim Deras MD Work Phone: [facility] 05-23-2024 10:12-0400 Heart rate 60 /min Vadim Deras MD Work Phone: [facility] 11-21-2023 10:12-0400 Systolic blood pressure 149 mm[Hg] Vadim Deras MD Work Phone: [facility] 11-21-2023 10:00-0400 Body mass index (BMI) [Ratio] 29.97 kg/m2 Vadim Deras MD Work Phone: [facility] 11-21-2023 10:00-0400 Body temperature 98.4 [degF] Vadim Deras MD Work Phone: [facility] 11-21-2023 10:00-0400 Body weight 100.25 kg Vadim Deras MD Work Phone: [facility] 10-14-2023 12:03-0400 Body temperature 98.6 [degF] Vadim Deras MD Work Phone: [facility] 10-14-2023 12:03-0400 Body weight 98.88 kg Vadim Deras MD Work Phone: [facility] 10-14-2023 12:03-0400 Diastolic blood pressure 96 mm[Hg] Vadim Deras MD Work Phone: [facility] 10-14-2023 12:03-0400 Heart rate 76 /min Vadim Deras MD Work Phone: [facility] 10-14-2023 12:03-0400 Respiratory rate 20 /min Vadim Deras MD Work Phone: [facility] 10-14-2023 12:03-0400 Systolic blood pressure 150 mm[Hg] Vadim Deras MD Work Phone: [facility] 08-23-2023 08:22-0500 Diastolic blood pressure 82 mm[Hg] Vadim Deras MD Work Phone: [facility] 08-23-2023 08:22-0500 Systolic blood pressure 120 mm[Hg] Vadim Deras MD Work Phone: [facility] 08-23-2023 08:12-0500 Body temperature 96.49 [degF] Vadim Deras MD Work Phone: [facility] 08-23-2023 08:12-0500 Body weight 97.98 kg Vadim Deras MD Work Phone: [facility] 08-23-2023 08:12-0500 Heart rate 69 /min Vadim Deras MD Work Phone: [facility] 08-23-2023 08:12-0500 Respiratory rate 16 /min Vadim Deras MD Work Phone: [facility] 08-23-2023 08:12-0500 SaO2% (BldA) [Mass fraction] 97 % Vadim Deras MD Work Phone: [facility] 08-06-2023 12:54-0500 Body height 182.9 cm Bonifacio Valdez MD Work Phone: [facility] 08-06-2023 12:54-0500 Body weight 90.72 kg Bonifacio Valdez MD Work Phone: [facility] 08-06-2023 12:54-0500 Respiratory rate 20 /min Bonifacio Valdez MD Work Phone: [facility] 07-18-2023 11:04-0500 Body temperature 97.7 [degF] Dr. Vadim Deras Work Phone: [facility] 07-18-2023 11:04-0500 Diastolic blood pressure 95 mm[Hg] Dr. Vadim Deras Work Phone: [facility] 07-18-2023 11:04-0500 Heart rate 77 /min Dr. Vadim Deras Work Phone: [facility] 07-18-2023 11:04-0500 Respiratory rate 16 /min Dr. Vadim Deras Work Phone: [facility] 07-18-2023 11:04-0500 SaO2% (BldA) [Mass fraction] 94 % Dr. Vadim Deras Work Phone: [facility] 07-18-2023 11:04-0500 Systolic blood pressure 140 mm[Hg] Dr. Vadim Deras Work Phone: [facility] 07-16-2023 17:20-0500 Body mass index (BMI) [Ratio] 28.8 kg/m2 Dr. Vadim Deras Work Phone: [facility] 07-16-2023 17:20-0500 Body weight 96.[address] Vadim Deras Work Phone: [facility] 07-10-2023 10:16-0500 Body height 182.[address] Vadim Deras Work Phone: [facility] 06-21-2023 15:03-0500 Diastolic blood pressure 101 mm[Hg] [facility] 06-21-2023 15:03-0500 Heart rate 72 /min [facility] 06-21-2023 15:03-0500 Respiratory rate 16 /min [facility] 06-21-2023 15:03-0500 SaO2% (BldA) [Mass fraction] 95 % [facility] 06-21-2023 15:03-0500 Systolic blood pressure 150 mm[Hg] [facility] 06-21-2023 12:44-0500 Body height 182.88 cm [facility] 06-21-2023 12:44-0500 Body mass index (BMI) [Ratio] 32.2 kg/m2 [facility] 06-21-2023 12:44-0500 Body temperature 96.6 [degF] [facility] 06-21-2023 12:44-0500 Body weight 107.9 kg [facility] 02-28-2023 14:20-0400 Body temperature 98.1 [degF] Radha Branch PA-C Work Phone: [facility] 02-28-2023 14:20-0400 Diastolic blood pressure 84 mm[Hg] Radha Branch PA-C Work Phone: [facility] 02-28-2023 14:20-0400 Heart rate 84 /min Radha Jose Carlos PA-C Work Phone: [facility] 02-28-2023 14:20-0400 SaO2% (BldA) [Mass fraction] 95 % Radha Jose Carlos PA-C Work Phone: [facility] 02-28-2023 14:20-0400 Systolic blood pressure 136 mm[Hg] Radha [place] PA-C Work Phone: [facility] 02-15-2023 08:08-0400 Body weight 97.07 kg Vadim Deras MD Work Phone: [facility] 02-15-2023 08:08-0400 Diastolic blood pressure 82 mm[Hg] Vadim Deras MD Work Phone: [facility] 02-15-2023 08:08-0400 Heart rate 85 /min Vadim Deras MD Work Phone: [facility] 02-15-2023 08:08-0400 Respiratory rate 16 /min Vadim Deras MD Work Phone: [facility] 02-15-2023 08:08-0400 SaO2% (BldA) [Mass fraction] 96 % Vadim Dears MD Work Phone: [facility] 02-15-2023 08:08-0400 Systolic blood pressure 128 mm[Hg] Vadim Deras MD Work Phone: [facility] 01-25-2023 14:58-0400 Body height 182.9 cm Su Ware MD Work Phone: [facility] 01-25-2023 14:58-0400 Body temperature 98.01 [degF] Su Ware MD Work Phone: [facility] 01-25-2023 14:58-0400 Body weight 99.07 kg Su Ware MD Work Phone: [facility] 01-25-2023 14:58-0400 Diastolic blood pressure 80 mm[Hg] Su Ware MD Work Phone: [facility] 01-25-2023 14:58-0400 Heart rate 91 /min Su Ware MD Work Phone: [facility] 01-25-2023 14:58-0400 SaO2% (BldA) [Mass fraction] 96 % Su Ware MD Work Phone: [facility] 01-25-2023 14:58-0400 Systolic blood pressure 132 mm[Hg] Su Ware MD Work Phone: [facility] 01-04-2023 08:10-0400 Body height 182.9 cm Lynda Meyers PA-C Work Phone: [facility] 01-04-2023 08:10-0400 Body temperature 97.81 [degF] Lynda Meyers PA-C Work Phone: [facility] 01-04-2023 08:10-0400 Body weight 98.88 kg Lynda Meyers PA-C Work Phone: [facility] 01-04-2023 08:10-0400 Diastolic blood pressure 88 mm[Hg] Lynda Meyers PA-C Work Phone: [facility] 01-04-2023 08:10-0400 Heart rate 80 /min Lynda Meyers PA-C Work Phone: [facility] 01-04-2023 08:10-0400 Respiratory rate 12 /min Lynda Meyers PA-C Work Phone: [facility] 01-04-2023 08:10-0400 SaO2% (BldA) [Mass fraction] 95 % Lynda Meyers PA-C Work Phone: [facility] 01-04-2023 08:10-0400 Systolic blood pressure 138 mm[Hg] Lynda Meyers PA-C Work Phone: [facility] 09-25-2022 13:26-0400 Body temperature 98.01 [degF] Hyun Major APRN.[employer] Work Phone: [facility] 09-25-2022 13:26-0400 Body weight 100.25 kg Hyun Moriah [employer] Work Phone: [facility] 09-25-2022 13:26-0400 Diastolic blood pressure 84 mm[Hg] Hyun Moriah [employer] Work Phone: [facility] 09-25-2022 13:26-0400 Heart rate 88 /min Hyun Moriah [employer] Work Phone: [facility] 09-25-2022 13:26-0400 Respiratory rate 18 /min Hyun Moriah [employer] Work Phone: [facility] 09-25-2022 13:26-0400 SaO2% (BldA) [Mass fraction] 96 % Hyun Moriah [employer] Work Phone: [facility] 09-25-2022 13:26-0400 Systolic blood pressure 128 mm[Hg] Hyun Moriah [employer] Work Phone: [facility] 08-31-2022 08:13-0500 Body height 182.9 cm Lynda Meyers PA-C Work Phone: [facility] 08-31-2022 08:13-0500 Body temperature 98.49 [degF] Lynda Meyers PA-C Work Phone: [facility] 08-31-2022 08:13-0500 Body weight 98.88 kg Lynda Meyers PA-C Work Phone: [facility] 08-31-2022 08:13-0500 Diastolic blood pressure 90 mm[Hg] Lynda Meyers PA-C Work Phone: [facility] 08-31-2022 08:13-0500 Heart rate 80 /min Lynda Meyers PA-C Work Phone: [facility] 08-31-2022 08:13-0500 Respiratory rate 14 /min Lynda Meyers PA-C Work Phone: [facility] 08-31-2022 08:13-0500 SaO2% (BldA) [Mass fraction] 95 % Lynda Meyers PA-C Work Phone: [facility] 08-31-2022 08:13-0500 Systolic blood pressure 134 mm[Hg] Lynda Noeloney PA-C Work Phone: [facility] 08-16-2022 08:08-0500 Body height 182.9 cm Vadim Deras MD Work Phone: [facility] 08-16-2022 08:08-0500 Body temperature 97.2 [degF] Vadim Deras MD Work Phone: [facility] 08-16-2022 08:08-0500 Body weight 97.52 kg Vadim Deras MD Work Phone: [facility] 08-16-2022 08:08-0500 Diastolic blood pressure 72 mm[Hg] Vadim Deras MD Work Phone: [facility] 08-16-2022 08:08-0500 Heart rate 72 /min Vadim Deras MD Work Phone: [facility] 08-16-2022 08:08-0500 Respiratory rate 12 /min Vadim Deras MD Work Phone: [facility] 08-16-2022 08:08-0500 Systolic blood pressure 118 mm[Hg] Vadim Deras MD Work Phone: [facility] 05-04-2022 08:28-0400 Body temperature 97.59 [degF] Susan Athy PA-C Work Phone: [facility] 05-04-2022 08:28-0400 Body weight 96.89 kg Susan Athy PA-C Work Phone: [facility] 05-04-2022 08:28-0400 Diastolic blood pressure 78 mm[Hg] Susan Athy PA-C Work Phone: [facility] 05-04-2022 08:28-0400 Heart rate 72 /min Susan Athy PA-C Work Phone: [facility] 05-04-2022 08:28-0400 Respiratory rate 16 /min Susan Corado PA-C Work Phone: [facility] 05-04-2022 08:28-0400 SaO2% (BldA) [Mass fraction] 98 % Susan Corado PA-C Work Phone: [facility] 05-04-2022 08:28-0400 Systolic blood pressure 126 mm[Hg] Susan Corado PA-C Work Phone: [facility] 03-05-2022 09:25-0400 Body temperature 97.2 [degF] Haylie Chin APRN.[employer] Work Phone: [facility] 03-05-2022 09:25-0400 Body weight 97.7 kg Haylie Chin APRN.[employer] Work Phone: [facility] 03-05-2022 09:25-0400 Diastolic blood pressure 90 mm[Hg] Haylie Chin APRN.[employer] Work Phone: [facility] 03-05-2022 09:25-0400 Heart rate 92 /min Haylie Chin APRN.[employer] Work Phone: [facility] 03-05-2022 09:25-0400 Respiratory rate 18 /min Haylie Chin APRN.[employer] Work Phone: [facility] 03-05-2022 09:25-0400 SaO2% (BldA) [Mass fraction] 94 % Hyalie Chin APRN.[employer]ASH APPLICATIONS ASSOCIATE Work Phone: [facility] 03-05-2022 09:25-0400 Systolic blood pressure 132 mm[Hg] Haylie Chin APRN.[employer]ASH APPLICATIONS ASSOCIATE Work Phone: [facility] 02-08-2022 08:55-0400 Body temperature 97 [degF] Vadim Deras MD Work Phone: [facility] 02-08-2022 08:55-0400 Body weight 94.98 kg Vadim Deras MD Work Phone: [facility] 02-08-2022 08:55-0400 Diastolic blood pressure 68 mm[Hg] Vadim Deras MD Work Phone: [facility] 02-08-2022 08:55-0400 Heart rate 68 /min Vadim Deras MD Work Phone: [facility] 02-08-2022 08:55-0400 Respiratory rate 16 /min Vadim Deras MD Work Phone: [facility] 02-08-2022 08:55-0400 Systolic blood pressure 114 mm[Hg] Vadim Deras MD Work Phone: [facility] 12-25-2021 14:35-0400 Body height 182.9 cm Su Ware MD Work Phone: [facility] 12-25-2021 14:35-0400 Body temperature 98.29 [degF] Su Ware MD Work Phone: [facility] 12-25-2021 14:35-0400 Body weight 96.62 kg Su Ware MD Work Phone: [facility] 12-25-2021 14:35-0400 Diastolic blood pressure 58 mm[Hg] Su Ware MD Work Phone: [facility] 12-25-2021 14:35-0400 Heart rate 91 /min Su Ware MD Work Phone: [facility] 12-25-2021 14:35-0400 SaO2% (BldA) [Mass fraction] 94 % Su Ware MD Work Phone: [facility] 12-25-2021 14:35-0400 Systolic blood pressure 106 mm[Hg] uS Ware MD Work Phone: [facility] 09-29-2021 13:02-0400 Body height 182.9 cm Su Ware MD Work Phone: [facility] 09-29-2021 13:02-0400 Body temperature 98.29 [degF] Su Ware MD Work Phone: [facility] 09-29-2021 13:02-0400 Body weight 97.52 kg Su Ware MD Work Phone: [facility] 09-29-2021 13:02-0400 Diastolic blood pressure 68 mm[Hg] Su Ware MD Work Phone: [facility] 09-29-2021 13:02-0400 Heart rate 81 /min Su Ware MD Work Phone: [facility] 09-29-2021 13:02-0400 SaO2% (BldA) [Mass fraction] 96 % Su Ware MD Work Phone: [facility] 09-29-2021 13:02-0400 Systolic blood pressure 136 mm[Hg] Su Ware MD Work Phone: [facility] Encounters Encounter Date Encounter Type Care Provider Facility Start: 12-09-2024 End: 12-09-2024 Telephone encounter Demetrio Gill MD Work Phone: Urology Start: 11-30-2024 End: 11-30-2024 Emergency department patient visit Dr. Vadim Deras MD Work Phone: -Emergency Department Work Phone: Start: 11-27-2024 ambulatory Nishi LITTLEJOHN Facili ty:[facility] Start: 11-27-[address] Nishi Romero MD -[facility] Work Phone: Start: 10-12-2024 End: 10-12-2024 ambulatory BONIFACIO LEDBETTER JR Facility:[facility] Start: 10-12-2024 End: 10-12-2024 Patient encounter procedure Demetrio Gill MD Work Phone: Urology Comment on above: Overactive bladder ( Primary Dx); Benign prostatic hyperplasia with urinary frequency; Nocturia Start: 10-05-2024 End: 10-05-[address] Nishi Romero MD -[facility] Work Phone: Start: 10-05-2024 End: 10-05-2024 ambulatory Nishi LITTLEJOHN Facility:[facility] Start: 09-28-2024 End: 09-28-2024 Telephone encounter Vadim Deras MD Work Phone: [address] [place] [address] Comment on above: Patient Update Start: 09-11-2024 End: 09-17-2024 Telephone encounter Bonifacio Ledbetter MD Work Phone: Neurology Start: 09-04-2024 End: 09-04-2024 Patient encounter procedure Bonifacio Ledbetter MD Work Phone: Neurology Comment on above: Parkinson's disease, unspecified whether dyskinesia present, unspecified whether manifestations fluctuate (HCC) (Primary Dx); Gait abnormality; Speech disturbance, unspecified type; Ataxia; History of subdural hematoma; Spinal stenosis in cervical region; Spinal stenosis of lumbar region without neurogenic claudication; Benign prostatic hyperplasia with urinary frequency; Nocturia; Leg weakness, bilateral Start: 09-04-2024 End: 09-04-2024 ambulatory VADIM DERAS Facility:[facility] Start: 08-26-2024 End: 08-26-2024 Telephone encounter Vadim Deras MD Work Phone: [facility] [place] Comment on above: Forms Start: 07-13-2024 ambulatory Nishi Fryedvinne ANNETTA Facili ty:[facility] Start: 06-26-2024 End: 06-26-2024 Patient encounter procedure Bonifacio Ledbetter MD Work Phone: Neurology Comment on above: Gait abnormality (Pr imary Dx); Leg weakness, bilateral; Speech disturbance, unspecified type; Ataxia; History of subdural hematoma; Spinal stenosis in cervical region; Spinal stenosis of lumbar region without neurogenic claudication Start: 06-26-2024 End: 06-26-2024 ambulatory BONIFACIO LEDBETTER JR Facility:[facility] Start: 06-15-2024 ambulatory Nishi Angedvina ANNETTA Facili ty:[facility] Start: 06-08-2024 End: 06-08-2024 ambulatory Nishi Angedvina OLS Facility:[facility] Start: 06-01-2024 End: 06-01-2024 Telephone encounter Vadim Deras MD Work Phone: [facility] [place] Start: 06-01-2024 End: 06-01-2024 ambulatory Nishi LITTLEJOHN Facility:[facility] Start: 05-19-2024 End: 05-20-2024 Telephone encounter Bonifacio Ledbetter MD Neurology Comment on above: Patient Question Start: 05-19-2024 ambulatory Preston Camilo Facility:[facility] Start: 05-19-2024 End: 05-30-2024 Evaluation and management of inpatient Preston Bergman Ton Facility:[facility] Start: 05-15-2024 End: 05-19-2024 ambulatory Jon Arce Facility:[facility] Start: 05-15-2024 ambulatory Pierre Mcgee Fa cility:[facility] Start: 05-15-2024 ambulatory Jon Arce Fac ility:[facility] Start: 04-27-2024 End: 04-27-2024 Telephone encounter Vadim Deras MD Work Phone: [facility] [place] Comment on above: Patient Question Start: 04-13-2024 End: 07-20-2024 Telephone encounter Bonifacio Ledbetter MD Work Phone: Neurology Comment on above: Results Start: 04-12-2024 End: 04-12-2024 Telephone encounter Bonifacio Ledbetter MD Work Phone: Sleep Start: 04-10-2024 End: 04-10-2024 ambulatory BONIFACIO LEDBETTER JR Facility:[facility] Start: 04-10-2024 End: 04-10-2024 Subsequent [facility] Work Phone: Radiology Comment on above: Ataxia [R27.0] Start: 04-02-2024 End: 04-02-2024 ambulatory Vadim Deras MD Work Phone: [facility] Comment on above: Allied Health Visit (Medication Adherence Outreach/) Start: 03-13-2024 End: 03-13-2024 Patient encounter procedure Bonifacio Ledbetter MD Work Phone: Neurology Comment on above: Ataxia (Primary Dx); Gait abnormality; Leg weakness, bilateral; Facial droop; Tremor; Speech disturbance, unspecified type; History of subdural hematoma; Spinal stenosis in cervical region; Spinal stenosis of lumbar region without neurogenic claudication; Spinal stenosis of cervical region Start: 03-13-2024 End: 03-13-2024 ambulatory BONIFACIO Yuniel LEDBETTER JR Facility:[facility] Start: 02-25-2024 End: 02-26-2024 Telephone encounter Vadim Deras MD Work Phone: [facility] [place] Comment on above: Medication Problem Start: 02-21-2024 End: 02-21-2024 ambulatory VADIM DERAS Facility:[facility] Start: 02-21-2024 End: 02-21-2024 Patient encounter procedure Vadim Deras MD Work Phone: [facility] [place] Comment on above: Medicare annual [facility] visit, subsequent (Primary Dx); Screening for depression; Encounter for screening examination for other mental health and behavioral disorders; History of TIA (transient ischemic attack); Gait abnormality; Essential hypertension; Hyperlipidemia, unspecified hyperlipidemia type; Benign prostatic hyperplasia with urinary obstruction; Urgency of urination; Edema of leg Start: 02-14-2024 End: 02-14-2024 ambulatory VADIM DERAS Facility:[facility] Start: 02-13-2024 Telephone encounter Neurology Provid er Neurology Comment on above: Opened In Error Orders Start: 01-30-2024 Refill Vadim gruber MD Work Phone: [facility] [place] Comment on above: Refill Request Start: 12-18-2023 End: 12-18-2023 ambulatory Vadim Deras Facility:[facility] Start: 11-21-2023 End: 11-21-2023 ambulatory VADIM DERAS Facility:[facility] Start: 11-21-2023 End: 11-21-2023 Patient encounter procedure Vadim Deras MD Work Phone: [facility] [place] Comment on above: Leg weakness, bilate ral (Primary Dx); Gait abnormality; Hyperlipidemia, unspecified hyperlipidemia type; Essential hypertension; Urgency of urination; Benign prostatic hyperplasia with urinary obstruction Start: 11-14-2023 End: 11-14-2023 ambulatory VADIM DERAS Facility:[facility] Start: 10-14-2023 End: 10-14-2023 Patient encounter procedure Vadim Deras MD Work Phone: [facility] [place] Comment on above: Gait abnormality (Pr imary Dx); Leg weakness, bilateral; Essential hypertension Start: 09-09-2023 Refill Vadim gruber MD Work Phone: [facility] [place] Comment on above: Refill Request Start: 08-23-2023 End: 08-23-2023 Patient encounter procedure Vadim Deras MD Work Phone: [facility] [place] Comment on above: Essential hypertensi on (Primary Dx); History of TIA (transient ischemic attack); Gait abnormality; Hyperlipidemia, unspecified hyperlipidemia type; Thrombocytopenia, unspecified (HCC); Hypoalbuminemia Start: 08-15-2023 Telephone encounter Bonifacio Valdez MD Work Phone: [facility] Comment on above: Orders Start: 08-13-2023 Telephone encounter Vadim escamilla MD Work Phone: [facility] [place] Comment on above: home health calling Start: 08-06-2023 End: 08-06-2023 Patient encounter procedure Bonifacio Valdez MD Work Phone: [facility] Comment on above: Closed bimalleolar f racture of left ankle with routine healing, subsequent encounter (Primary Dx) Start: 08-06-2023 End: 08-06-2023 ambulatory BONIFACIO VALDEZ Facility:[facility] Start: 08-02-2023 End: 08-02-2023 ambulatory NICOLÁS JUNIOR Facility:[facility] Start: 08-02-2023 End: 08-02-2023 Subsequent hospital visit by physician [facility] Comment on above: SAH (subarachnoid he morrhage) (HCC) [I60.9] Start: 07-29-2023 End: 07-29-[address] Vadim Deras Work Phone: [facility] Work Phone: Start: 07-29-2023 End: 07-29-[address] Vadim Deras Work Phone: [facility] Start: 07-22-2023 End: 07-22-[address] Vadim Deras Work Phone: [facility] Work Phone: Start: 07-22-2023 End: 07-22-[address] Vadim Deras Work Phone: [facility] Start: 07-22-[address] Vadim Deras Work Phone: [facility] Start: 07-19-2023 End: 07-19-[address] Vadim Deras Work Phone: [facility] Start: 07-16-2023 End: 07-16-2023 ambulatory NICOLÁS JUNIOR Facility:[facility] Start: 07-09-2023 End: 07-09-2023 ambulatory BONIFACIO VALDEZ Facility:[facility] Start: 06-28-2023 Non-patient / Non-visit Dr. Sunshine Deras Work Phone: [facility] Work Phone: Start: 06-27-2023 End: 07-18-2023 Evaluation and management of inpatient Dr. Vadim Deras Work Phone: [facility] Start: 06-21-2023 End: 06-27-2023 Evaluation and management of inpatient VADIM DERAS Facility:[facility] Start: 06-21-2023 End: 06-21-2023 Emergency department patient visit [facility] Work Phone: Start: 04-01-2023 Refill Vadim gruber MD Work Phone: [facility] [place] Comment on above: Refill Request Start: 02-28-2023 End: 02-28-2023 Patient encounter procedure Radha Branch PA-C Work Phone: General Surgery Comment on above: S/P hernia repair (P rimary Dx) Start: 02-15-2023 End: 02-15-2023 Patient encounter procedure Vadim Deras MD Work Phone: [facility] [place] Comment on above: Benign prostatic hyp erplasia with urinary obstruction (Primary Dx); Essential hypertension; Hyperlipidemia, unspecified hyperlipidemia type; Hypoalbuminemia; Thrombocytopenia, unspecified (HCC) Start: 01-25-2023 End: 01-25-2023 Patient encounter procedure Su Ware MD Work Phone: General Surgery Comment on above: Recurrent umbilical hernia (Primary Dx) Start: 01-04-2023 End: 01-04-2023 Patient encounter procedure Lynda Meyers PA-C Work Phone: Urology Comment on above: OAB (overactive blad moo) (Primary Dx); Benign prostatic hyperplasia with urinary obstruction Start: 09-25-2022 End: 09-25-2022 Patient encounter procedure Hyun Major APRN.CASH APPLICATIONS ASSOCIATE [facility] Comment on above: Eye problem (Primary Dx) Start: 08-31-2022 End: 08-31-2022 Patient encounter procedure Lynda Meyers PA-C Work Phone: Urology Comment on above: OAB (overactive blad moo) (Primary Dx); Erectile dysfunction, unspecified erectile dysfunction type; Benign prostatic hyperplasia with urinary obstruction Start: 08-16-2022 End: 08-16-2022 Patient encounter procedure Vadim Deras MD Work Phone: [facility] [place] Comment on above: Medicare annual well ness visit, subsequent (Primary Dx); Thrombocytopenia, unspecified (HCC); Essential hypertension; Benign prostatic hyperplasia with urinary obstruction; Hyperlipidemia, unspecified hyperlipidemia type; Erectile dysfunction, unspecified erectile dysfunction type Start: 08-03-2022 Refill Vadim gruber MD Work Phone: [facility] [place] Comment on above: Refill Request Start: 05-05-2022 Telephone encounter Valdez hernandes APRN.CASH APPLICATIONS ASSOCIATE Work Phone: [facility] Comment on above: Results Start: 05-04-2022 End: 05-04-2022 Patient encounter procedure Susan Corado PA-C Work Phone: [facility] Comment on above: Exposure to COVID-19 virus (Primary Dx) Start: 03-05-2022 End: 03-05-2022 Patient encounter procedure Haylie Chin APRN.CASH APPLICATIONS ASSOCIATE Work Phone: [facility] Comment on above: Skin infection (Prim betzy Dx) Start: 02-08-2022 End: 02-08-2022 Patient encounter procedure Vadim Deras MD Work Phone: [facility] [place] Comment on above: Myalgia (Primary Dx) ; Need for vaccination; Essential hypertension; Hyperlipidemia, unspecified hyperlipidemia type Start: 01-11-2022 Refill Vadim gruber MD Work Phone: [facility] [place] Comment on above: Refill Request Start: 12-25-2021 End: 12-25-2021 Patient encounter procedure Su Ware MD Work Phone: General Surgery Comment on above: Extrusion of suture, initial encounter (Primary Dx) Start: 09-29-2021 End: 09-29-2021 Patient encounter procedure Su Ware MD Work Phone: General Surgery Comment on above: Status post umbilica l hernia repair, follow-up exam (Primary Dx) Procedures Date Procedure Procedure Detail Performing Clinician Start: 11-30-2024 CT cervical spine wi thout contrast Dr. Vadim Deras MD Work Phone: Start: 11-30-2024 CT of head without contrast Dr. Vadim Deras MD Work Phone: Start: 11-26-2024 Urnls dip stick/tabl et reagent auto microscopy Dr. Vadim Deras MD Work Phone: Start: 11-26-[address] Katiana Deras MD Work Phone: Start: 04-14-2025 Urnls dip stick/tabl et rgnt auto w/o microscopy Demetrio Gill MD Work Phone: Start: 10-05-2024 Prostate specific an tigen measurement Dr. Vadim Deras MD Work Phone: Comment on above: This test was perfor med using the [employer] tPSA method. Measured values of a patient sample can vary depending on the testing procedure used. PSA values determined on patient samples by different testing procedures cannot be used interchangeably. If there is a change in PSA assays while monitoring therapy, sequential testing should be performed to confirm baseline values. Start: 10-05-2024 Vitamin D, 25-hydrox y measurement Dr. Vadim Deras MD Work Phone: Comment on above: Vitamin D StatusDefi ciency: <20 ng/mL (50nmol/L)Insufficiency: 20-30 ng/mL (50-75 nmol/L)Sufficiency: 30-100 ng/mL (75-250 nmol/L)Toxicity: >100 ng/mL (>250 nmol/L) Start: 04-10-2024 Mri brain brain stem w/o contrast material Bonifacio Ledbetter MD Work Phone: Start: 02-21-2024 Adult depression scr eening assessment Vadim Deras MD Work Phone: Start: 08-06-2023 Radex ankle complete minimum 3 views Bonifacio Valdez MD Work Phone: Start: 08-02-2023 Ct head/brain w/o co ntrast material Rosanne Flannery PIECER UP.CASH APPLICATIONS ASSOCIATE Work Phone: Start: 07-16-[address] Vadim Deras Work Phone: Start: 07-03-[address] Katiana Deras Work Phone: Start: 06-21-2023 Antibody screen BONIFACIO VALDEZ Comment on above: Order Comment: Speci men Type: BLOOD SPECIMEN Ordering Facility: [facility] Address: [address] [place] [address] Performed By: #### T SCR #### [facility] CLIA [id number] 1 [place] [address] [place] Start: 06-21-2023 CT cervical spine wi thout contrast Start: 06-21-2023 CT of head without contrast Start: 01-04-2023 Urnls dip stick/tabl et rgnt auto w/o microscopy Lynda Meyers PA-C Work Phone: Start: 08-31-2022 Urnls dip stick/tabl et rgnt auto w/o microscopy Lynda Meyers PA-C Work Phone: Start: 10-29-2018 Electrocardiogram Plan of Treatment Date Care Activity Detail Author Start: 06-21-2033 Urine microalbumin profile DTaP,Tdap,Td Vaccine (2 - Td or Tdap) [facility] Start: 02-13-2027 [facility] Start: 11-13-2026 [facility] Start: 08-16-2026 [facility] Start: 06-26-2026 [facility] Start: 02-08-2026 DIABETES SCREEN DIABETES SCREEN [facility] Start: 02-08-2026 [facility] Start: 08-09-2025 DIABETES SCREEN DIABETES SCREEN [facility] Start: 02-20-2025 Anxiety Screening Anxiety Screening [facility] Start: 02-20-2025 Depression Screening Depression Scre ening [facility] Start: 02-01-2025 DIABETES SCREEN DIABETES SCREEN [facility] Start: 01-18-2025 End: 01-18-2025 Patient encounter procedure 01/18/2025 10:45 AM EDT Office Visit Urology [address] [place] [address] [place] [address] [place], [place] [phone] Return in about 3 months (around 01/11/2025). Urology Comment on above: Return in about 3 mo nths (around 01/11/2025). Start: 11-30-2024 End: 11-30-2024 [facility] Start: 10-12-2024 End: 10-12-2024 Patient encounter procedure 10/12/2024 10:45 AM EDT Office Visit Urology [address] [place] [address] [place] [address] [place] [address] BPH Urology Comment on above: BPH Start: 09-24-2024 Covid-19 Vaccine ( season) Covid-19 Vaccine () [facility] Start: 09-04-2024 End: 09-04-2024 Patient encounter procedure 09/04/2024 8:00 AM EST Office Visit Neurology [address] [place] [address] Bonifacio Ledbetter Jr., MD [address] [place], [place] [id number] est gait abn, BLE weakness, speech, ataxia, spinal stenosis, f/u 4-8 wks per [facility], 60 min slot, enrique 06/26/24 Neurology Comment on above: est gait abn, BLE we akness, speech, ataxia, spinal stenosis, f/u 4-8 wks per [facility], 60 min slot, enrique 06/26/24 Start: 08-24-2024 End: 08-24-2024 Patient encounter procedure 08/24/2024 2:00 PM EST Office Visit [facility] [place] [address] [place] [id number] Vadim Deras MD [address] [place] [address] 6 month follow up [facility] [place] Comment on above: 6 month follow up Start: 08-07-2024 DIABETES SCREEN DIABETES SCREEN [facility] Start: 07-01-2024 Advance Directive Discussion Advance Directive Discussion [facility] Start: 07-01-2024 Medicare Advantage Annual Wellness Visit Medicare Advantage Annual Wellness Visit [facility] Start: 06-26-2024 End: 06-26-2024 Patient encounter procedure Neurology Comment on above: follow up after MRI follow up after MRI, 03/13 enrique [facility]- MRI *3 ordered (done) Start: 04-10-2024 End: 04-10-2024 Patient encounter procedure Radiology Comment on above: Spinal stenosis of l umbar region without neurogenic claudication [M48.061] Tremor [R25.1]; Spin al stenosis in cervical region [M48.02]; Spinal stenosis of cervical region [M48.02] Ataxia [R27.0] Start: 03-13-2024 End: 03-13-2024 Patient encounter procedure 03/13/2024 9:20 AM EDT Office Visit Neurology [address] [place], [place] [id number] Bonifacio Ledbetter Jr., MD [address] [phone] Gait abnormality [R26.9]; Leg weakness, bilateral [R29.898] Neurology Comment on above: Gait abnormality [R2 6.9]; Leg weakness, bilateral [R29.898] Start: 03-01-2024 Covid-19 Vaccine ( season) Covid-19 Vaccine () [facility] Start: 03-01-2024 Influenza vaccination Influenza Vacc ine (#1) [facility] Start: 02-21-2024 End: 02-21-2024 Patient encounter procedure 02/21/2024 9:20 AM EDT Office Visit Internal Medicine [place] [address] [place] [address] Vadim Deras MD [address] [place] [address] Annual Medicare w/3 month follow-up [facility] [place] Comment on above: Annual Medicare w/3 month follow-up Start: 02-13-2024 End: 05-14-2024 Basic metabolic 2000 panel - Serum or Plasma BASIC METABOLIC PANEL Lab Routine Essential hypertension Expected: 02/13/2024, Expires: 05/14/2024 [facility] Comment on above: Expected: 02/13/2024 , Expires: 05/14/2024 Start: 02-13-2024 End: 05-14-2024 CBC panel - Blood by Automated count COMPLETE BLOOD COUNT Lab Routine Thrombocytopenia, unspecified (HCC) Expected: 02/13/2024, Expires: 05/14/2024 [facility] Work Phone: Comment on above: Expected: 02/13/2024 , Expires: 05/14/2024 Start: 01-16-2024 Urine microalbumin profile [facility] Comment on above: Postponed from 08/23 (Declined at this time) Start: 12-20-2023 End: 12-20-2023 Patient encounter procedure 12/20/2023 2:20 PM EDT Office Visit Neurology [address] [facility] [place] [id number] Bonifacio Ledbetter Jr., MD [address] [facility] [address] [place] [phone] Gait abnormality [R26.9]; Leg weakness, bilateral [R29.898] Neurology Comment on above: Gait abnormality [R2 6.9]; Leg weakness, bilateral [R29.898] Start: 11-21-2023 End: 02-20-2024 Comprehensive metabolic 2000 panel - Serum or Plasma COMP METABOLIC PANEL Lab Routine Hyperlipidemia, unspecified hyperlipidemia type Expected: 11/21/2023, Expires: 02/20/2024 [facility] Work Phone: Comment on above: Expected: 11/21/2023 , Expires: 02/20/2024 Start: 11-21-2023 End: 02-20-2024 Lipid 1996 panel - Serum or Plasma LIPID PANEL BASIC Lab Routine Hyperlipidemia, unspecified hyperlipidemia type Expected: 11/21/2023, Expires: 02/20/2024 [facility] Work Phone: Comment on above: Expected: 11/21/2023 , Expires: 02/20/2024 Start: 08-18-2023 End: 10-18-2023 Comprehensive metabolic 2000 panel - Serum or Plasma COMP METABOLIC PANEL Lab Routine Hyperlipidemia, unspecified hyperlipidemia type Expected: 08/18/2023, Expires: 10/18/2023 [facility] Work Phone: Comment on above: Expected: 08/18/2023 , Expires: 10/18/2023 Start: 08-18-2023 End: 10-18-2023 Lipid 1996 panel - Serum or Plasma LIPID PANEL BASIC Lab Routine Hyperlipidemia, unspecified hyperlipidemia type Expected: 08/18/2023, Expires: 10/18/2023 [facility] Work Phone: Comment on above: Expected: 08/18/2023 , Expires: 10/18/2023 Start: 08-06-2023 Covid-19 Vaccine () Covid-19 Vaccine () [facility] Start: 07-29-2023 Blood chemistry [facility] Start: 07-22-2023 Blood chemistry [facility] Start: 07-18-2023 Patient discharge [facility] Start: 07-17-2023 Development of care plan [facility] Start: 07-12-2023 Provision of activit y privileges [facility] Start: 07-01-2023 Advance Directive Discussion Advance Directive Discussion [facility] Start: 07-01-2023 Behavioral Health Screening Behavioral Health Screening [facility] Start: 07-01-2023 Depression Assessment Depression Ass essment [facility] Start: 06-29-2023 Speech therapy management [facility] Start: 06-28-2023 Speech therapy assessment [facility] Start: 06-28-2023 Developing a treatme nt plan [facility] Start: 06-28-2023 Development of care plan [facility] Start: 06-27-2023 Following clinical pathway protocol [facility] Start: 06-27-2023 Admission procedure [facility] Start: 06-27-2023 Measuring intake and output [facility] Start: 06-27-2023 Patient referral to dietitian [facility] Start: 06-27-2023 Referral to occupational therapist [facility] Start: 06-27-2023 Referral to service [facility] Start: 06-27-2023 Vital signs measurements [facility] Start: 06-27-2023 End: 06-27-2023 [facility] Start: 06-21-2023 Aspiration precautions [facility] Start: 06-21-2023 [facility] Start: 03-01-2023 Influenza vaccination INFLUENZA (#1) [facility] Start: 02-15-2023 End: 04-17-2023 Urinalysis complete panel - Urine [facility] Work Phone: Comment on above: Expected: 02/15/2023 , Expires: 04/17/2023 Start: 02-13-2023 End: 04-15-2023 CBC panel - Blood by Automated count CBC Lab Routine Thrombocytopenia, unspecified (HCC) Expected: 02/13/2023, Expires: 04/15/2023 [facility] Work Phone: Comment on above: Expected: 02/13/2023 , Expires: 04/15/2023 Start: 02-13-2023 End: 04-15-2023 Comprehensive metabolic 2000 panel - Serum or Plasma COMP METABOLIC PANEL Lab Routine Hyperlipidemia, unspecified hyperlipidemia type Expected: 02/13/2023, Expires: 04/15/2023 [facility] Work Phone: Comment on above: Expected: 02/13/2023 , Expires: 04/15/2023 Start: 02-13-2023 End: 04-15-2023 Lipid 1996 panel - Serum or Plasma LIPID PANEL BASIC Lab Routine Hyperlipidemia, unspecified hyperlipidemia type Expected: 02/13/2023, Expires: 04/15/2023 [facility] Work Phone: Comment on above: Expected: 02/13/2023 , Expires: 04/15/2023 Start: 02-13-2023 End: 04-15-2023 PSA/PROSTSPECAG SCRN PSA/PROSTSPECAG SCRN Lab Routine Benign prostatic hyperplasia with urinary obstruction Expected: 02/13/2023, Expires: 04/15/2023 [facility] Work Phone: Comment on above: Expected: 02/13/2023 , Expires: 04/15/2023 Start: 08-11-2022 End: 10-11-2022 Basic metabolic 2000 panel - Serum or Plasma BASIC METABOLIC PNL Lab Routine Hyperlipidemia, unspecified hyperlipidemia type Expected: 08/11/2022, Expires: 10/11/2022 [facility] Work Phone: Comment on above: Expected: 08/11/2022 , Expires: 10/11/2022 Start: 08-11-2022 End: 10-11-2022 Lipid 1996 panel - Serum or Plasma LIPID PANEL BASIC Lab Routine Hyperlipidemia, unspecified hyperlipidemia type Expected: 08/11/2022, Expires: 10/11/2022 [facility] Work Phone: Comment on above: Expected: 08/11/2022 , Expires: 10/11/2022 Start: 07-01-2022 ADVANCE DIRECTIVE DISCUSSION ADVANCE DIRECTIVE DISCUSSION [facility] Start: 07-01-2022 DEPRESSION ASSESSMENT DEPRESSION ASS ESSMENT [facility] Start: 05-04-2022 End: 05-14-2022 SARS-CoV-2 (COVID-19) RNA [Presence] in Respiratory specimen by GM with probe detection ASYMPTOMATIC ELECTIVE COVID-19 Microbiology Routine Exposure to COVID-19 virus Expected: 05/04/2022, Expires: 05/14/2022 [facility] Work Phone: Comment on above: Expected: 05/04/2022 , Expires: 05/14/2022 Start: 03-01-2022 Influenza vaccination INFLUENZA (#1) [facility] Start: 07-01-2021 ADVANCE DIRECTIVE DISCUSSION ADVANCE DIRECTIVE DISCUSSION [facility] Start: 07-01-2021 DEPRESSION ASSESSMENT DEPRESSION ASS ESSMENT [facility] Start: 07-24-2020 FECAL OCCULT BLOOD FECAL OCCULT BLOO D [facility] Start: 01-14-2016 PNEUMOCOCCAL: 65+ (2 - PPSV23 or PCV20) PNEUMOCOCCAL: 65+ (2 - PPSV23 or PCV20) [facility] Start: 08-14-2012 SHINGRIX VACCINE (2 of 3) SHINGRIX VACCINE (2 of 3) [facility] Start: 2011 RSV Vaccine (1 - 1-d ose 75+ series) RSV Vaccine (1 - 1-dose 75+ series) [facility] Start: 1996 RSV Vaccine (1 - 1-d ose 60+ series) RSV Vaccine (1 - 1-dose 60+ series) [facility] Start: 1954 Anxiety Screening Anxiety Screening [facility] Start: 1954 Depression Screening Depression Scre ening [facility] End: 04-12-2025 MR Brain WO contrast MRI BRAIN WO IVCON Radiology Routine Ataxia 1 Occurrences starting 03/13/2024 until 04/12/2025 [facility] Work Phone: Comment on above: 1 Occurrences starti ng 03/13/2024 until 04/12/2025 End: 04-12-2025 MR Cervical spine WO contrast MRI CERVICAL SPINE WO IVCON Radiology Routine Tremor Spinal stenosis in cervical region Spinal stenosis of cervical region 1 Occurrences starting 03/13/2024 until 04/12/2025 [facility] Comment on above: 1 Occurrences starti ng 03/13/2024 until 04/12/2025 End: 04-12-2025 MR Lumbar spine WO contrast MRI LUMBAR SPINE WO IVCON Radiology Routine Spinal stenosis of lumbar region without neurogenic claudication 1 Occurrences starting 03/13/2024 until 04/12/2025 [facility] Comment on above: 1 Occurrences starti ng 03/13/2024 until 04/12/2025 Patient Education ED Abrasion ED Scalp Contusion ED Head Injury (Adult) [facility] Work Phone: Patient referral [facility] Work Phone: POST VOID RESIDUAL POST VOID RES IDUAL Procedures Routine Benign prostatic hyperplasia with urinary obstruction Erectile dysfunction, unspecified erectile dysfunction type Ordered: 08/31/2022 [facility] Work Phone: Comment on above: Ordered: 08/31/2022 POST VOID RESIDUAL [facility] Work Phone: Comment on above: Ordered: 01/04/2023 UA DIP, URINE (POC) UA DIP, URIN E (POC) Lab Routine OAB (overactive bladder) Ordered: 01/04/2023 [facility] Work Phone: Comment on above: Ordered: 01/04/2023 [facility] Immunizations Immunization Date Immunization Notes Care Provider Pratibha finley 03-27-2024 COVID-19 vaccine, ag e 12+ yr (PFIZER-BIONTECH COMIRNATY) Vadim Deras MD Work Phone: [facility] 03-20-2024 influenza, high dose seasonal, preservative-free Vadim Deras MD Work Phone: [facility] 06-21-2023 tetanus toxoid, reduced diphtheria toxoid, and acellular pertussis vaccine, adsorbed [facility] 04-05-2023 Pfizer Covid-19 (Comirnaty) Dr. Vadim Deras Work Phone: [facility] 03-25-2023 influenza (aIIV4) vaccine, age 65+ yr, quadrivalent, PF (FLUAD QUAD) Vadim Deras MD Work Phone: [facility] 03-25-2023 influenza, injectabl e, quadrivalent, preservative free Dr. Vadim Deras Work Phone: [facility] 03-25-2023 influenza virus vaccine, unspecified formulation Vadim Deras MD Work Phone: [facility] 12-21-2022 COVID-19 vaccine, ag e 12+ yr, bivalent (PFIZER-BIONTECH) Lynda Meyers PA-C Work Phone: [facility] Work Phone: 03-27-2022 influenza, high dose seasonal, preservative-free Vadim Deras MD Work Phone: [facility] Work Phone: 03-12-2022 COVID-19 booster vaccine, age 12+ yr, bivalent (PFIZER-BIONTECH) Susan Corado PA-C Work Phone: [facility] Work Phone: 02-08-2022 pneumococcal (PCV20) vaccine, 20 valent (PREVNAR 20) Vadim Deras MD Work Phone: [facility] Work Phone: 02-08-2022 pneumococcal Conjugate, unspecified formulation Vadim Deras MD Work Phone: [facility] Work Phone: 10-14-2021 Covid (Pfizer) Dr. Vadim Deras Work Phone: [facility] 04-05-2021 Covid (Pfizer) Dr. Vadim Deras Work Phone: [facility] 03-17-2021 influenza, high-dose , quadrivalent vaccine (FLUZONE HIGH DOSE QUADRIVALENT) Su Ware MD Work Phone: [facility] Work Phone: 07-29-2020 Covid (Pfizer) Dr. Vadim Deras Work Phone: [facility] 07-08-2020 Covid (Pfizer) Dr. Vadim Deras Work Phone: [facility] 07-07-2020 COVID-19 vaccine, ag e 12+ yr (PFIZER-BIONTECH - PURPLE TOP) Su Ware MD Work Phone: [facility] Work Phone: 03-30-2020 influenza, high dose seasonal, preservative-free Su Ware MD Work Phone: [facility] Work Phone: 03-30-2019 influenza, high dose seasonal, preservative-free Su Ware MD Work Phone: [facility] Work Phone: 03-23-2018 influenza, high dose seasonal, preservative-free Su Ware MD Work Phone: [facility] Work Phone: 04-04-2017 influenza, injectabl e, quadrivalent, contains preservative Su Ware MD Work Phone: [facility] Work Phone: 04-04-2017 influenza, injectabl e, quadrivalent, preservative free Dr. Vadim Deras MD Work Phone: [facility] 04-04-2016 influenza, injectabl e, quadrivalent, preservative free Dr. Vadim Deras MD Work Phone: [facility] 04-04-2016 influenza, seasonal, injectable Su Ware MD Work Phone: [facility] 04-14-2015 influenza, high dose seasonal, preservative-free Su Ware MD Work Phone: [facility] 01-13-2015 pneumococcal conjuga te vaccine, 13 valent Su Ware MD Work Phone: [facility] 04-13-2014 influenza, injectabl e, quadrivalent, preservative free Dr. Vadim Deras MD Work Phone: [facility] 04-13-2014 influenza, seasonal, injectable Su Ware MD Work Phone: [facility] Work Phone: 03-31-2013 influenza virus vaccine, unspecified formulation Su Ware MD Work Phone: [facility] 06-19-2012 zoster vaccine, live Su child MD Work Phone: [facility] 06-06-2012 zoster vaccine, live Dr. Juan Deras Work Phone: [facility] 03-31-2012 influenza virus vaccine, unspecified formulation Su Ware MD Work Phone: [facility] 06-29-2009 novel [id number], preservative-free, injectable Su Ware MD Work Phone: [facility] Work Phone: 08-22-2007 tetanus and diphther ia toxoids, adsorbed, preservative free, for adult use (2 Lf of tetanus toxoid and 2 Lf of diphtheria toxoid) Su Ware MD Work Phone: [facility] Work Phone: Payers Date Payer Category [facility]ayer [facility] [id number] 2024 Medicaid [id number] 2024 Medicare [id number] 2023 Self-pay [id number] 2023 Medicare (Managed Care) [id number]. [id number] 2023 Private Health Insurance [facility] [id number] 2021 Medicare HUMANA MEDICARE HUMANA MEDICARE PPO [id number] 2021-Present [phone] [address] [address] [place] [address] PPO [id number] 2021 Medicare [id number] 2021 Medicare [id number] Unknown [employer] HMO [id number] Unknown [id number]. 462 Unknown [id number]. 462 Unknown [id number] [id number]. 462 Unknown [id number] 2.16.840.1.192050.3.579.2. 462 Unknown [id number] 2.16.840.1.929326.3.579.2. 462 Unknown [id number] 2.16.840.1.623899.3.579.2. 462 Unknown [id number] 2.16.840.1.231402.3.579.2. 462 Unknown [id number] 2.16.840.1.144484.3.579.2. 462 Unknown [id number] 2.16.840.1.087087.3.579.2. 462 Unknown [id number] 2.16.840.1.502009.3.579.2. 462 Unknown [id number] 2.16.840.1.174802.3.579.2. 462 Unknown [id number] 2.840.1.210922.3.579.2. 462 Unknown [id number] [id number]. 462 Unknown [id number] 2.16.840.1.008203.3.579.2. 462 Unknown [id number] 2.16.840.1.724062.3.579.2. 462 Unknown [id number] [id number]. 462 Unknown [id number] [id number]. 462 Unknown [id number]. 462 Social History Date Type Detail Facility Start: 02-08-2022 End: 02-21-2024 Tobacco smoking status NHIS Ex-smoker [facility] History of tobacco use Cigarette Smoker [facility] History of tobacco use Pipe Smoker [facility] End: 07-01-1993 History of tobacco use User of smokeless tobacco [facility] Start: 09-29-2021 End: 09-04-2024 Alcohol intake Current drinker of alcohol (finding) [facility] Start: 09-29-2021 End: 10-12-2024 Alcohol intake [facility] Work Phone: Start: 08-11-2021 End: 08-16-2022 History SDOH Alcohol Frequency 3 [facility] Start: 08-11-2021 End: 08-16-2022 History SDOH Alcohol Std Drinks 1 [facility] Start: 07-28-2020 History SDOH Alcohol Comment or less. [facility] Start: 08-11-2021 End: 08-16-2022 History SDOH Social Connections Phone 5 [facility] Start: 08-11-2021 End: 08-16-2022 History SDOH Social Connections Living 7 [facility] Start: 08-11-2021 End: 08-16-2022 History SDOH Physical Activity DPW 2 [facility] Start: 08-11-2021 End: 08-16-2022 History SDOH Financial 4 [facility] Start: 1935 Sex Assigned At Not on file C [facility] Start: 09-19-2021 End: 02-08-2022 Exposure to SARS-CoV-2 (event) Not sure [facility] History of tobacco use Current smoker [facility] Work Phone: Start: 02-08-2022 Tobacco use and exposure Forme r smokeless tobacco user [facility] Work Phone: Start: 02-08-2022 Tobacco Comment Quit 1993 (cig x 5 years and pipe x 20 years) [facility] Start: 04-24-2022 End: 05-04-2022 Exposure to SARS-CoV-2 (event) Yes [facility] Start: 01-04-2023 End: 02-21-2024 Tobacco use and exposure Smokeless tobacco non-user [facility] Start: 08-16-2022 End: 10-12-2024 Social connection and isolation panel [facility] Work Phone: Are you now , , , , never or living with a partner? Never [facility] Work Phone: How often to you hav e a drink containing alcohol? 2-4 times a month [facility] Work Phone: How many standard dr inks containing alcohol do you have on a typical day? 1 or 2 [facility] Work Phone: How often do you hav e 6 or more drinks on 1 occasion? Never [facility] Work Phone: How hard is it for y ou to pay for the very basics like food, housing, medical care, and heating Not very hard [facility] Work Phone: Adult Depression Screening Assessment 0 [facility] Work Phone: Do you feel stress - tense, restless, nervous, or anxious, or unable to sleep at night because your mind is troubled all the time - these days [OSQ] Not at all [facility] Work Phone: Start: 06-21-2023 End: 06-28-2023 Tobacco smoking status NHIS Unknown if ever smoked [facility] Start: 1935 Sex Assigned At Male [facility] Medical Equipment Procedure Code Equipment Code Equipment Origin al Text Equipment Identifier Dates Plate Lcp Stainl ess Steel [id number] Bone 7 Hole 1/3 Tubular Collar Small - [id number] Start: 06-23-2023 Screw Dcp 2.7mm Short Thread Stainless Steel 20mm Bone Self Tapping Small - [id number] Start: 06-23-2023 Screw Lc-Dcp Dcp 3.5mm 6mm Full Thread Stainless Steel 14mm Bone Self Tap - [id number] Start: 06-23-2023 Screw Lc-Dcp Dcp 3.5mm 6mm Full Thread Stainless Steel 16mm Bone Self - [id number] Start: 06-23-2023 Screw Lcp 3.5mm Full Thread Stainless Steel 12mm Bone Stardrive Recess Self - [id number] Start: 06-23-2023 Screw Lcp 3.5mm Stainless Steel 18mm Bone Locking Self Tapping T15 Star - [id number] Start: 06-23-2023 Goals Date Patient Goal Desired Activity /State Functional Status Date Assessment Result Facility 07-18-2023 Functional status Chair [facility] Work Phone: 07-17-2023 Functional status Standard Walker;Wheelchair [facility] Work Phone: 01-17-2015 Are you deaf, or do you have serious difficulty hearing No 01/17/2015 4:27 PM Melissa Crawford RN No [facility] 01-17-2015 Are you blind, or do you have serious difficulty seeing, even when wearing glasses No 01/17/2015 4:27 PM Melissa Crawford RN No [facility] 01-17-2015 Do you have serious difficulty walking or climbing stairs No 01/17/2015 4:27 PM Melissa Crawford RN No [facility] 01-17-2015 Do you have difficul ty dressing or bathing No 01/17/2015 4:27 PM Melissa Crawford RN No [facility] 01-17-2015 Because of a physica l, mental, or emotional condition, do you have difficulty doing errands alone such as visiting a physician's office or shopping No 01/17/2015 4:27 PM EDMelissa Duron RN No [facility] Mental Status Date Assessment Result Facility 07-18-2023 Cognitive function Voice/Name [facility] Work Phone: 01-17-2015 Because of a physica l, mental, or emotional condition, do you have serious difficulty concentrating, remembering, or making decisions No 01/17/2015 4:27 PM Melissa Crawford RN No [facility] Clinical Notes 08-22-2007 to 12-09-2024 Telephone Encounter - Demetrio Gill MD - 12/09/2024 10:46 AM EDTTelephone Encounter - Demetrio Gill MD - 12/09/2024 10:46 AM EDTPatient Demetrio Lizarraga MD - 10/12/2024 10:33 AM EDT Note Date & Type Note Facility 12-09-2024 Telephone encounter Note Called his sister Gerri and discussed about the treatment plan. Will keep Cialis and Gemtesa for now and add Flomax to the treatment regimen. Discussed about Interstim and Botox. Family not interested. Demetrio Gill MD. Genitourinary Medicine and Men's Health Staff. [facility] 12-09-2024 Miscellaneous Notes Called his sister Gerri and discussed about the treatment plan. Will keep Cialis and Gemtesa for now and add Flomax to the treatment regimen. Discussed about Interstim and Botox. Family not interested. Demetrio Gill MD. Genitourinary Medicine and Men's Health Staff. [facility] [place] [facility] documented in this encounter [facility] 11-30-2024 Radiology Diagnostic study note [facility] Imaging Services [address] [place] [address] Brain/Head without Contrast MR#: [id number] Acct: [id number] Name: DENIZ KUMAR Rep #: [id number] : 1935 M 89 From: Annabel Conti MD PCP: Dr. Vadim Deras MD Status: R EG ER Study:Brain/Head without Contrast Date of Exa m: 11/30/24 Exam# [id number] Ordering Dr: Kelton Valdivia MD ADDENDUM by Dr. Richa Conti MD on 11/30/[address] Valdivia was notified by Richa Conti at 3:15pm EST on 11/30/24 Reading Location: [id number] 11/30/24 1533 Date cc: Dr. Kelton Valdivia MD; Dr. Vadim Deras MD ~* Signed PROCEDURE: BRAIN/HEAD WITHOUT CONTRAST 11/30/2024 REASON FOR EXAM: TRAUMA TECHNIQUE: Head CT without intravenous contrast. Coronal and Sagittal reconstruction serieswere provided. One or more dose reduction techniques were used (e.g., Automated exposure control, adjustment of the mA and/or kV according to patient size, use of iterative reconstruction technique. RADIATION DOSE SUMMARY: DLP: 741 mGycm COMPARISON: 06/21/2023 FINDINGS: There is no acute infarct, intracranial hemorrhage, or mass effect. No midline shift. Mild ventriculomegaly may reflect mild hydrocephalus. There is moderate chronic microvascular ischemic changes and mild parenchymal volume loss. No acute, depressed calvarial fractures. Large left parietal scalp hematoma. Opacification of the right mastoid air cells may reflect mastoiditis. Right orbital globe increased density may reflect vitreous hemorrhage. CT/Brain/Head without Contrast IMPRESSION: Large left parietal scalp hematoma without underlying acute calvarial fracture. Right orbital globe hyperdensity may reflect vitreous hemorrhage. Mild ventriculomegaly may reflect mild hydrocephalus. No acute intracranial hemorrhage or infarction. Opacification of the right mastoid air cells may reflect mastoiditis. Reading Location: [facility] CC: Dr. Kelton Valdivia MD; Dr. Vadim Deras MD ~ Marketing Database Analyst: Signed [facility] 11-30-2024 Radiology Diagnostic study note [facility] Imaging Services [address] [place] [address] [id number] Spine Cervical without Contras MR#: [id number] Acct: [id number] Name: DENIZ KUMAR Rep #: [id number] : [id number] From: Annabel Conti MD PCP: Dr. Vadim Deras MD Status: R ER Study:Spine Cervical without Contras Date of Exam: 11/30/24 Exam# [id number] Ordering Dr: Kelton Valdivia MD PROCEDURE: SPINE CERVICAL WITHOUT CONTRAS 11/30/2024 REASON FOR EXAM: TRAUMA TECHNIQUE: Cervical spine CT without contrast. Coronal and Sagittal reconstruction series were provided. One or more dose reduction techniques were used (e.g., Automated exposure control, adjustment of the mA and/or kV according to patient size, use of iterative reconstruction technique RADIATION DOSE SUMMARY: DLP: 741 mGycm COMPARISON: 06/21/2023 FINDINGS: No acute compression deformity, fracture, or subluxation. Mild retrolisthesis of C4 on C5. Moderate to severe multilevel degenerative changes with [id number] multilevel foraminal stenosis due to facet hypertrophy and uncovertebral hypertrophy. Moderate multilevel central canal stenosis most prominent at C4-C5 The prevertebral soft tissues are not thickened. Stable calcified 1 cm lesion within the right thyroid gland. Limited sections of the lung apices demonstrate no pneumothorax. CT/Spine Cervical without Contras IMPRESSION: No acute cervical compression fracture or subluxations. Moderate to severe multilevel degenerative changes of the cervical spine as above. Reading Location: [id number] CC: Dr. Kelton Valdivia MD; Dr. Vadim Deras MD ~ Marketing Database Analyst: Signed [facility] 10-12-2024 Instructions Demetrio Gill MD - 10/12/2024 10:56 AM EDT BLADDER HYGIENE CAFFEINE AND BLADDER IRRITANTS: Consuming certain foods and drinks will make your body produce more urine. Consuming irritants will bother your bladder and creat urgency and frequency. Cut down on the following irritants to help reduce your urinary symptoms: Caffeine, Artificial Sweeteners, Artificial Colorants, Alcohol TIMED VOIDING: The bladder should normally empty every 2-3 hours each day. Empty your badder this often, regardless of feeling the need to urinate. This will keep the bladder more empty and reduce your symptoms. Waiting too long until you have to urinate can result in leakage. NOCTURIA (URINATION AT NIGHT): Start to slow down fluid intake from 3:00 PM until dinner time. Try as much as possible to avoid fluid intake after dinner. Especially avoid bladder irritants in the evening: - alcohol, caffeine - artificial sweeteners, artificial colors / dyes Urinate before going to bed to empty the bladder. If you snore, let your doctor know: - snoring can indicate sleep apnea - sleep apnea is a major cause of urination at night If possible, lay down mid-day (1PM - 2PM) to help shed excess fluid. CONSTIPATION: Constipation will worsen bladder symptoms, sometimes quite severely. Please ensure you have a good bowel movement each day. Daily Miralax (polyethylene glycol) and water intake can help with this. Please start Cialis from now regardless of you get Gemtesa Vs Mirabegron or not. Once you get B3 agonist ( Gemtesa or mIrabegron) then stop Detrol and continue Cialis and B3 agonist. documented in this encounter [facility] 10-12-2024 Note HNO ID: [id number] Author: DEMETRIO GILL MD Service: ? Author Type: Physician Type: Progress Notes Filed: 10/12/2024 13:02 Note Text: [facility] MALE PATIENT - HISTORY AND PHYSICAL EXAMINATION PATIENT: Deniz Kumar (89 year old) PCP: No primary care provider on file. CHIEF COMPLAINT: urge incontinence HISTORY OF PRESENT ILLNESS: 89 year old year old male with h/o SAH, HLD, gait abnormality being treated for PD with Sinemet, BPH, and OAB . Main complaint is urge incontinence - Drinks 2 cups of coffee, but no sweeteners, flavors or color. No alcohol drinking. - has Nighttime enuresis - endorsed urge incotninence - Never had prostate or bladder surgery before. Denied any radiation therapy. URINARY: NIGHTTIME FREQUENCY: 3-4 times per night IRRITATIVE - BOTHERSOME FREQUENCY: every 2-3 hours, - URGENCY: Yes - INCONTINENCE: Stress No / Urge Yes OBSTRUCTIVE - FORCE OF STREAM: weak - HESITANCY: Yes , sometimes - INTERMITTENCY: Yes - STRAINING: Yes - INCOMPLETE EMPTYING: Yes sometimes - DOUBLE VOIDING: Yes - POSTVOID DRIBBLING: Yes CURRENT URINARY STATUS: - INDWELLING CATHETER: No - CURRENT INTERMITTENT CATHETERIZATION: No - GROSS HEMATURIA: No - URINARY TRACT INFECTION: No PROMIS Global Health 01/10/2017 PROMIS Global Health Scale Physical Health Percentile 66 Mental Health Percentile 63 Percentiles provide an indication of how the patient's score ranks in relation to the general population. Higher percentile rankings indicate better function/quality of life. 50th percentile is the average of the general population and indicates half of respondents had a worse score. REVIEW OF SYSTEMS: Reviewed and otherwise non-contributory HISTORY: PAST MEDICAL HISTORY Diagnosis Date Benign prostatic hyperplasia with urinary obstruction Brain TIA 11/03/2018 Chronic nonallergic rhinitis 07/12/2016 Closed fracture of left ankle 06/23/2023 Diverticulosis of colon (without mention of hemorrhage) Diverticulosis of large intestine Erectile dysfunction 01/16/2018 Erectile dysfunction, unspecified erectile dysfunction type Essential hypertension 02/22/2006 Fall 06/22/2023 Hypertrophy of prostate with urinary obstruction and other lower urinary tract symptoms (LUTS) Internal hemorrhoids without mention of complication OAB (overactive bladder) Pure hypercholesterolemia SAH (subarachnoid hemorrhage) (HCC) 07/16/2023 Subdural hematoma (HCC) 06/21/2023 Thrombocytopenia, unspecified 2017 PAST SURGICAL HISTORY Procedure Laterality Date CATARACT EXTRACTION W/ INTRAOCULAR LENS IMPLANT HX Left 03/2019 Dr. Rivera COLONOSCOPY FLX DX W/COLLJ SPEC WHEN PFRMD 03/2004 Colonoscopy PAST SURGICAL HISTORY OF Left 06/23/2023 ORIF left ankle TONSILLECTOMY AND ADENOIDECTOMY UMBILICAL HERNIA REPAIR 5 OR OLDER 09/21/2021 Social History Tobacco Use Smoking status: Former Current packs/day: 0.50 Average packs/day: 0.5 packs/day for 5.0 years (2.5 ttl pk-yrs) Types: Cigarettes, Pipe Smokeless tobacco: Never Vaping Use Vaping status: Never Used Substance Use Topics Alcohol use: Yes Alcohol/week: 1.0 standard drink of alcohol Types: 1 Cans of beer per week Comment: or less. Drug use: Not Currently Types: Marijuana FAMILY HISTORY Problem Relation Age of Onset Prostate Cancer Father metastatic prostate Cancer Mother liver Hypertension Sister Lipids Sister MEDICATIONS: Current Outpatient Medications Medication Sig carbidopa-levodopa (SINEMET) 25-100 mg per tablet Take 1.5 tablet with breakfast, 1.5 tablet with lunch and 1.5 tablet with dinner (7AM, Noon and 5 PM). carbidopa-levodopa CR (SINEMET CR) 50-200 mg per tablet Take 1 tablet at 10PM. losartan (COZAAR) 100 mg tablet Take 100 mg by mouth once daily. metoprolol tartrate, short acting, (LOPRESSOR) 25 mg tablet Take 25 mg by mouth two times a day. potassium chloride ER (KLOR-CON) 20 mEq tablet Take 20 mEq by mouth two times a day. sennosides-docusate sodium (SENNA PLUS) 8.6-50 mg capsule Take 1 capsule by mouth two times a day. Morning and bedtime for constipation rivaroxaban (XARELTO) 10 mg tablet Take 10 mg by mouth once daily. finasteride (PROSCAR) 5 mg tablet Take 1 tablet by mouth once daily. melatonin 3 mg tablet Take 1 tablet by mouth daily at bedtime. aspirin, enteric coated (ASPIRIN, ENTERIC COATED) 81 mg EC tablet Take 1 tablet by mouth once daily. MULTIVITAMIN TAB Take one(1) tablet daily. vibegron (GEMTESA) 75 mg tablet Take 1 tablet by mouth once daily. Tadalafil (CIALIS) 5 mg tablet Take 1 tablet by mouth once daily as needed. Take 1-2 hours before sexual activity. mirabegron (MYRBETRIQ) 50 mg Tb24 Take 1 tablet by mouth once daily. Cholecalciferol, Vitamin D3, (VITAMIN D-3) 50 mcg (2,000 unit) cap Take 1 capsule by mouth once daily. lisinopril (ZESTRIL) 40 mg tablet Take 1 tablet by mouth once daily. (Patient not (more content not included)... [facility] 10-12-2024 History of Present illness Narrative [facility] MALE PATIENT - HISTORY AND PHYSICAL EXAMINATION PATIENT: Deniz Kumar (89 year old) PCP: No primary care provider on file. CHIEF COMPLAINT: urge incontinence HISTORY OF PRESENT ILLNESS: 89 year old year old male with h/o SAH, HLD, gait abnormality being treated for PD with Sinemet, BPH, and OAB . Main complaint is urge incontinence - Drinks 2 cups of coffee, but no sweeteners, flavors or color. No alcohol drinking. - has Nighttime enuresis - endorsed urge incotninence - Never had prostate or bladder surgery before. Denied any radiation therapy. URINARY: NIGHTTIME FREQUENCY: 3-4 times per night IRRITATIVE - BOTHERSOME FREQUENCY: every 2-3 hours, - URGENCY: Yes - INCONTINENCE: Stress No / Urge Yes OBSTRUCTIVE - FORCE OF STREAM: weak - HESITANCY: Yes , sometimes - INTERMITTENCY: Yes - STRAINING: Yes - INCOMPLETE EMPTYING: Yes sometimes - DOUBLE VOIDING: Yes - POSTVOID DRIBBLING: Yes CURRENT URINARY STATUS: - INDWELLING CATHETER: No - CURRENT INTERMITTENT CATHETERIZATION: No - GROSS HEMATURIA: No - URINARY TRACT INFECTION: No PROMIS Global Health 01/10/2017 PROMIS Global Health Scale Physical Health Percentile 66 Mental Health Percentile 63 Percentiles provide an indication of how the patient's score ranks in relation to the general population. Higher percentile rankings indicate better function/quality of life. 50th percentile is the average of the general population and indicates half of respondents had a worse score. REVIEW OF SYSTEMS: Reviewed and otherwise non-contributory HISTORY: PAST MEDICAL HISTORY Diagnosis Date Benign prostatic hyperplasia with urinary obstruction Brain TIA 11/03/2018 Chronic nonallergic rhinitis 07/12/2016 Closed fracture of left ankle 06/23/2023 Diverticulosis of colon (without mention of hemorrhage) Diverticulosis of large intestine Erectile dysfunction 01/16/2018 Erectile dysfunction, unspecified erectile dysfunction type Essential hypertension 02/22/2006 Fall 06/22/2023 Hypertrophy of prostate with urinary obstruction and other lower urinary tract symptoms (LUTS) Internal hemorrhoids without mention of complication OAB (overactive bladder) Pure hypercholesterolemia SAH (subarachnoid hemorrhage) (HCC) 07/16/2023 Subdural hematoma (HCC) 06/21/2023 Thrombocytopenia, unspecified 2017 PAST SURGICAL HISTORY Procedure Laterality Date CATARACT EXTRACTION W/ INTRAOCULAR LENS IMPLANT HX Left 03/2019 Dr. Rivera COLONOSCOPY FLX DX W/COLLJ SPEC WHEN PFRMD 03/2004 Colonoscopy PAST SURGICAL HISTORY OF Left 06/23/2023 ORIF left ankle TONSILLECTOMY & ADENOIDECTOMY <AGE 13 1941 UMBILICAL HERNIA REPAIR 5 OR OLDER 09/21/2021 Social History Tobacco Use Smoking status: Former Current packs/day: 0.50 Average packs/day: 0.5 packs/day for 5.0 years (2.5 ttl pk-yrs) Types: Cigarettes, Pipe Smokeless tobacco: Never Vaping Use Vaping status: Never Used Substance Use Topics Alcohol use: Yes Alcohol/week: 1.0 standard drink of alcohol Types: 1 Cans of beer per week Comment: or less. Drug use: Not Currently Types: Marijuana FAMILY HISTORY Problem Relation Age of Onset Prostate Cancer Father metastatic prostate Cancer Mother liver Hypertension Sister Lipids Sister MEDICATIONS: Current Outpatient Medications Medication Sig carbidopa-levodopa (SINEMET) 25-100 mg per tablet Take 1.5 tablet with breakfast, 1.5 tablet with lunch and 1.5 tablet with dinner (7AM, Noon and 5 PM). carbidopa-levodopa CR (SINEMET CR) 50-200 mg per tablet Take 1 tablet at 10PM. losartan (COZAAR) 100 mg tablet Take 100 mg by mouth once daily. metoprolol tartrate, short acting, (LOPRESSOR) 25 mg tablet Take 25 mg by mouth two times a day. potassium chloride ER (KLOR-CON) 20 mEq tablet Take 20 mEq by mouth two times a day. sennosides-docusate sodium (SENNA PLUS) 8.6-50 mg capsule Take 1 capsule by mouth two times a day. Morning and bedtime for constipation rivaroxaban (XARELTO) 10 mg tablet Take 10 mg by mouth once daily. finasteride (PROSCAR) 5 mg tablet Take 1 tablet by mouth once daily. melatonin 3 mg tablet Take 1 tablet by mouth daily at bedtime. aspirin, enteric coated (ASPIRIN, ENTERIC COATED) 81 mg EC tablet Take 1 tablet by mouth once daily. MULTIVITAMIN TAB Take one(1) tablet daily. vibegron (GEMTESA) 75 mg tablet Take 1 tablet by mouth once daily. Tadalafil (CIALIS) 5 mg tablet Take 1 tablet by mouth once daily as needed. Take 1-2 hours before sexual activity. mirabegron (MYRBETRIQ) 50 mg Tb24 Take 1 tablet by mouth once daily. Cholecalciferol, Vitamin D3, (VITAMIN D-3) 50 mcg (2,000 unit) cap Take 1 capsule by mouth once daily. lisinopril (ZESTRIL) 40 mg tablet Take 1 tablet by mouth once daily. (Patient not taking: Reported on 06/26/2024) No current facility-administered medications for this visit. PHYSICAL EXAMINATION: VITALS: There were no vitals taken for this visit. GENERAL: alert, no distress, normal affect CARDIAC: normal RESPIRATORY: normal effort ABDOMEN: soft, non-tender Participation of a fellow, resident, medical student, or advanced practice provider student in performing the sensitive examination was discussed with the patient or authorized service liaison representative. The patient or authorized service liaison representative has agreed to proceed with the sensitive examination. GENITAL: - PENIS: circumcised, no penile plaques, no skin lesions - SCROTUM: no rashes, no masses, no edema - TESTES: nl size, nl consistency, no mass RECTAL: not examined. EXTREMITIES: normal SKIN: normal NEUROLOGIC: normal OFFICE DATA: POST-VOID RESIDUAL BLADDER VOLUME: YES, 0 cc GLUCOSE UA (POCT) Negative 10/12/2024 BILIRUBIN UA (POCT) Negative 10/12/2024 KETONE UA (POCT) Trace 10/12/2024 SPECIFIC GRAVITY UA (POCT) 1.020 10/12/2024 HEMOGLOBIN/BLOOD UA (POCT) Negative 10/12/2024 PH UA (POCT) 6.5 10/12/2024 PROTEIN UA (POCT) 100 10/12/2024 UROBILINOGEN UA (POCT) 1.0 10/12/2024 NITRITE UA (POCT) Negative 10/12/2024 LEUKOCYTES UA (POCT) Negative 10/12/2024 COLOR UA (POCT) Dark yellow 10/12/2024 CLARITY UA (POCT) Clear 10/12/2024 OTHER DATA: Creatinine Creatinine Date Value Ref Range Status 02/14/2024 0.82 0.73 - 1.22 mg/dL Final 11/14/2023 0.83 0.73 - 1.22 mg/dL Final 08/16/2023 0.90 0.73 - 1.22 mg/dL Final 06/26/2023 0.98 0.73 - 1.22 mg/dL Final PSA PSA (ng/mL) Date Value 01/26/2021 1.88 07/12/2016 1.00 01/22/2013 0.60 PSA Screening (ng/mL) Date Value 02/08/2023 0.71 02/01/2022 0.83 ASSESSMENT/PLAN: 1. Overactive bladder - ICD9: 596.51, ICD10: N32.81 (primary diagnosis) 2. Benign prostatic hyperplasia with urinary frequency - ICD9: 600.01, 788.41, ICD10: N40.1, R35.0 3. Nocturia - ICD9: 788.43, ICD10: R35.1 Plan: Bladder hygiene instructions were discussed and printed AVS Start Cialis 5 mg daily from now regardless of you get Gemtesa 75 mg Vs Mirabegron 50 mg or not. Once you get B3 agonist ( Gemtesa or mIrabegron) then stop Detrol and continue Cialis and B3 agonist. Discussed different other treatment options including Botox and Interstim device. Patient not interested RTC in 3 months Visit complexity inherent to evaluation and management associated with medical care services that serve as the continuing focal point for all needed health care services and/or with medical care services that are part of ongoing care related to a patient s single, serious condition or a complex condition. Consultation requested by Dr. Bonifacio Ledbetter [address] [address] for an opinion regarding OAB and my final recommendations will be communicated back to the requesting physician by way of shared Medical record or letter via US mail. Demetrio Gill MD. Genitourinary Medicine and Men's Health Staff. [facility] [place] [facility] PVR 0 documented in this encounter [facility] 10-12-2024 Note HNO ID: [id number] Author: MICHELLE REDD RN Service: ? Author Type: Registered Nurse Type: Progress Notes Filed: 10/12/2024 13:02 Note Text: PVR 0 [facility] 09-28-2024 Telephone encounter Note Updated chart and removed pcp Rachel Khalil MA [facility] 09-28-2024 Miscellaneous Notes Updated chart and removed pcp Rachel Khalil MA Sister Gerri is calling to report patient is now residing at [facility] and seeing their provider, Patient admitted to [facility] at the end of 2023 Gerri received a letter for a missed appointment and was not aware of that appt or she would have called to cancel. documented in this encounter [facility] 09-28-2024 Telephone encounter Note Sister Gerri is calling to report patient is now residing at [facility] and seeing their provider, Patient admitted to [facility] at the end of 2023 Gerri received a letter for a missed appointment and was not aware of that appt or she would have called to cancel. [facility] 09-17-2024 Telephone encounter Note In review of appointments, patient has been scheduled with Urology on 10/12/24. ADRIAN Hall [facility] 09-17-2024 Miscellaneous Notes In review of appointments, patient has been scheduled with Urology on 10/12/24. ADRIAN Hall 1st attempt lvm Please contact patients sister, Gerri Barnes, at [phone] to assist with scheduling Consult for Urology. Thank you. ADRIAN Hall documented in this encounter [facility] 09-11-2024 Telephone encounter Note 1st attempt lvm [facility] 09-11-2024 Telephone encounter Note Please contact patients sister, Gerri Molly, at [phone] to assist with scheduling Consult for Urology. Thank you. ADRIAN Hall [facility] 09-04-2024 Note HNO ID: [id number] Author: LEDBETTER JR, BONIFACIO, MD Service: ? Author Type: Physician Type: Progress Notes Filed: 09/04/2024 10:11 Note Text: ESTABLISHED PATIENT VISIT CHIEF COMPLAINT: Follow Up HISTORY OF PRESENT ILLNESS: Deniz Kumar is a 89 year old male, BMI 29.39 kg/m2 with a PMH significant for and per last office visit note of 06/26/25: 1. Gait abnormality - ICD9: 781.2, ICD10: R26.9 (primary diagnosis) 2. Leg weakness, bilateral - ICD9: 729.89, ICD10: R29.898 3. Speech disturbance, unspecified type - ICD9: 784.59, ICD10: R47.9 4. Ataxia - ICD9: 781.3, ICD10: R27.0 5. History of subdural hematoma - ICD9: V12.59, ICD10: Z86.79 6. Spinal stenosis in cervical region - ICD9: 723.0, ICD10: M48.02 7. Spinal stenosis of lumbar region without neurogenic claudication - ICD9: 724.02, ICD10: M48.061 Patient with multiple neurologic complaints as above, the primary being balance and gait impairment. Suspect multifactorial including history of SDH, but also significant spinal stenosis (reviewed both C and L spine images with patient today). Patient is not wanting further evaluation of spine, including not wanting at minimal a surgical evaluation. Already in therapy. Still question if also component of parkinsonism contributing to symptoms based on exam findings (I.e. increased tone, masked facies, . D/w pt and his family option of at providing treatment specific for possible Parkinson's disease to see if any response. Pt interested as would not non-invasive treatment. D/w them treatment options, and will place on trial of Sinemet 25/100mg TID with meals to see if any improvement. SE and ADRs d/w pt and family and advised if any they stop the med and contact us immediately. Will have patient return to clinic in 8 weeks to see if any improvement and determine if medication should be continued or increased.. If any abrupt progression of disease/symptoms they will contact us immediately and explained that for acute neurologic changes that they should be seen in the ER immediately. They agree with plan. Patient unaware if taking Sinemet, but SNF notes suggest he was getting it at least TID. Uncertain if meds given with meals. Patient received meds this AM before appointment and suspect SInemet given. Patient very limited historian. States has been doing PT. Pt feels PT has helped. Denies any falls since last visit. Feels PT loosens things up. Family feels strength has improved and walks a lot and does not seem to tire. Is using walker (wheels) which they describe as a blessing. Able to be independent in room. Feels better in the mornings. States sleep schedule is in spurts since in [facility] last year. Feels memory pretty lousy still. Not taking any memory meds. States difficulties getting words out. Patient reports biggest problem is an "enlarged prostate". Asking for urology consult. Reports nocturia (4-5 times per night). Urgency and reports of rare incontinence. Unclear if seen by urology. Rare lower back pain. Denies RBD. REVIEW OF SYSTEMS GENERAL:No weight loss, malaise or fevers. HEENT:Negative for frequent or significant headaches, No changes in hearing or vision, no nose bleeds or other nasal problems NECK:Negative for lumps, goiter, pain and significant neck swelling RESPIRATORY: Negative for cough, wheezing or shortness of breath. CARDIOVASCULAR: Negative for chest pain, leg swelling or palpitations. GASTROINTESTINAL: Negative for abdominal discomfort, blood in stools or black stools or change in bowel habits GENITOURINARY: See HPI. MUSCULOSKELETAL: Negative for joint pain or swelling, back pain or muscle pain. NEUROLOGIC:Negative for focal numbness or weakness, headaches and dizziness or syncope, vision changes, speech/languag changes - EXCEPT that as per HPI above. LAB/IMAGING: Those performed since patient's last visit have been reviewed. WBC (k/uL) Date Value 02/14/2024 3.74 RBC (m/uL) Date Value 02/14/2024 4.85 Hemoglobin (g/dL) Date Value 02/14/2024 14.7 Hematocrit (%) Date Value 02/14/2024 43.5 MCV (fL) Date Value 02/14/2024 89.7 MCH (pg) Date Value 02/14/2024 30.3 MCHC (g/dL) Date Value 02/14/2024 33.8 RDW-CV (%) Date Value 02/14/2024 13.2 Platelet Count (k/uL) Date Value 02/14/2024 117 (L) MPV (fL) Date Value 02/14/2024 11.0 Glucose (mg/dL) Date Value 02/14/2024 88 BUN (mg/dL) Date Value 02/14/2024 18 Creatinine (mg/dL) Date Value 02/14/2024 0.82 Sodium (mmol/L) Date Value 02/14/2024 136 Potassium (mmol/L) Date Value 02/14/2024 4.2 Chloride (mmol/L) Date Value 02/14/2024 102 CO2 (mmol/L) Date Value 02/14/2024 26 Protein, Total (g/dL) Date Value 11/14/2023 6.3 Albumin (g/dL) Date Value 11/14/2023 4.0 Calcium, Total (mg/dL) Date Value 02/14/2024 9.7 Alkaline Phosphatase (U/L) Date Value 11/14/2023 70 Bilirubin, Total (mg/dL) Date Value 11/14/2023 0.6 (more content not included)... [facility] 09-04-2024 History of Present illness Narrative ESTABLISHED PATIENT VISIT CHIEF COMPLAINT: Follow Up HISTORY OF PRESENT ILLNESS: Deniz Kumar is a 89 year old male, BMI 29.39 kg/m2 with a PMH significant for and per last office visit note of 06/26/25: 1. Gait abnormality - ICD9: 781.2, ICD10: R26.9 (primary diagnosis) 2. Leg weakness, bilateral - ICD9: 729.89, ICD10: R29.898 3. Speech disturbance, unspecified type - ICD9: 784.59, ICD10: R47.9 4. Ataxia - ICD9: 781.3, ICD10: R27.0 5. History of subdural hematoma - ICD9: V12.59, ICD10: Z86.79 6. Spinal stenosis in cervical region - ICD9: 723.0, ICD10: M48.02 7. Spinal stenosis of lumbar region without neurogenic claudication - ICD9: 724.02, ICD10: M48.061 Patient with multiple neurologic complaints as above, the primary being balance and gait impairment. Suspect multifactorial including history of SDH, but also significant spinal stenosis (reviewed both C and L spine images with patient today). Patient is not wanting further evaluation of spine, including not wanting at minimal a surgical evaluation. Already in therapy. Still question if also component of parkinsonism contributing to symptoms based on exam findings (I.e. increased tone, masked facies, . D/w pt and his family option of at providing treatment specific for possible Parkinson's disease to see if any response. Pt interested as would not non-invasive treatment. D/w them treatment options, and will place on trial of Sinemet 25/100mg TID with meals to see if any improvement. SE and ADRs d/w pt and family and advised if any they stop the med and contact us immediately. Will have patient return to clinic in 8 weeks to see if any improvement and determine if medication should be continued or increased.. If any abrupt progression of disease/symptoms they will contact us immediately and explained that for acute neurologic changes that they should be seen in the ER immediately. They agree with plan. Patient unaware if taking Sinemet, but SNF notes suggest he was getting it at least TID. Uncertain if meds given with meals. Patient received meds this AM before appointment and suspect SInemet given. Patient very limited historian. States has been doing PT. Pt feels PT has helped. Denies any falls since last visit. Feels PT loosens things up. Family feels strength has improved and walks a lot and does not seem to tire. Is using walker (wheels) which they describe as a blessing. Able to be independent in room. Feels better in the mornings. States sleep schedule is in spurts since in SNF last year. Feels memory pretty lousy still. Not taking any memory meds. States difficulties getting words out. Patient reports biggest problem is an "enlarged prostate". Asking for urology consult. Reports nocturia (4-5 times per night). Urgency and reports of rare incontinence. Unclear if seen by urology. Rare lower back pain. Denies RBD. REVIEW OF SYSTEMS GENERAL:No weight loss, malaise or fevers. HEENT:Negative for frequent or significant headaches, No changes in hearing or vision, no nose bleeds or other nasal problems NECK:Negative for lumps, goiter, pain and significant neck swelling RESPIRATORY: Negative for cough, wheezing or shortness of breath. CARDIOVASCULAR: Negative for chest pain, leg swelling or palpitations. GASTROINTESTINAL: Negative for abdominal discomfort, blood in stools or black stools or change in bowel habits GENITOURINARY: See HPI. MUSCULOSKELETAL: Negative for joint pain or swelling, back pain or muscle pain. NEUROLOGIC:Negative for focal numbness or weakness, headaches and dizziness or syncope, vision changes, speech/languag changes - EXCEPT that as per HPI above. LAB/IMAGING: Those performed since patient's last visit have been reviewed. WBC (k/uL) Date Value 02/14/2024 3.74 RBC (m/uL) Date Value 02/14/2024 4.85 Hemoglobin (g/dL) Date Value 02/14/2024 14.7 Hematocrit (%) Date Value 02/14/2024 43.5 MCV (fL) Date Value 02/14/2024 89.7 MCH (pg) Date Value 02/14/2024 30.3 MCHC (g/dL) Date Value 02/14/2024 33.8 RDW-CV (%) Date Value 02/14/2024 13.2 Platelet Count (k/uL) Date Value 02/14/2024 117 (L) MPV (fL) Date Value 02/14/2024 11.0 Glucose (mg/dL) Date Value 02/14/2024 88 BUN (mg/dL) Date Value 02/14/2024 18 Creatinine (mg/dL) Date Value 02/14/2024 0.82 Sodium (mmol/L) Date Value 02/14/2024 136 Potassium (mmol/L) Date Value 02/14/2024 4.2 Chloride (mmol/L) Date Value 02/14/2024 102 CO2 (mmol/L) Date Value 02/14/2024 26 Protein, Total (g/dL) Date Value 11/14/2023 6.3 Albumin (g/dL) Date Value 11/14/2023 4.0 Calcium, Total (mg/dL) Date Value 02/14/2024 9.7 Alkaline Phosphatase (U/L) Date Value 11/14/2023 70 Bilirubin, Total (mg/dL) Date Value 11/14/2023 0.6 AST (U/L) Date Value 11/14/2023 16 ALT (U/L) Date Value 11/14/2023 13 MEDICATIONS: losartan (COZAAR) 100 mg tablet Take 100 mg by mouth once daily. metoprolol tartrate, short acting, (LOPRESSOR) 25 mg tablet Take 25 mg by mouth two times a day. potassium chloride ER (KLOR-CON) 20 mEq tablet Take 20 mEq by mouth two times a day. sennosides-docusate sodium (SENNA PLUS) 8.6-50 mg capsule Take 1 capsule by mouth two times a day. Morning and bedtime for constipation Cholecalciferol, Vitamin D3, (VITAMIN D-3) 50 mcg (2,000 unit) cap Take 1 capsule by mouth once daily. rivaroxaban (XARELTO) 10 mg tablet Take 10 mg by mouth once daily. carbidopa-levodopa (SINEMET) 25-100 mg per tablet Take 1 tablet with breakfast, 1 tablet with lunch and 1 tablet with dinner (8AM, Noon and 4 PM or 4-5 hours between doses). tolterodine (DETROL) 1 mg tablet Take 1 tablet by mouth two times a day. finasteride (PROSCAR) 5 mg tablet Take 1 tablet by mouth once daily. melatonin 3 mg tablet Take 1 tablet by mouth daily at bedtime. aspirin, enteric coated (ASPIRIN, ENTERIC COATED) 81 mg EC tablet Take 1 tablet by mouth once daily. MULTIVITAMIN TAB Take one(1) tablet daily. lisinopril (ZESTRIL) 40 mg tablet Take 1 tablet by mouth once daily. (Patient not taking: Reported on 06/26/2024) HISTORIES PAST MEDICAL HISTORY Diagnosis Date Benign prostatic hyperplasia with urinary obstruction Brain TIA 11/03/2018 Chronic nonallergic rhinitis 07/12/2016 Closed fracture of left ankle 06/23/2023 Diverticulosis of colon (without mention of hemorrhage) Diverticulosis of large intestine Erectile dysfunction 01/16/2018 Erectile dysfunction, unspecified erectile dysfunction type Essential hypertension 02/22/2006 Fall 06/22/2023 Hypertrophy of prostate with urinary obstruction and other lower urinary tract symptoms (LUTS) Internal hemorrhoids without mention of complication OAB (overactive bladder) Pure hypercholesterolemia SAH (subarachnoid hemorrhage) (HCC) 07/16/2023 Subdural hematoma (HCC) 06/21/2023 Thrombocytopenia, unspecified (HCC) 2017 FAMILY HISTORY Problem Relation Age of Onset Prostate Cancer Father metastatic prostate Cancer Mother liver Hypertension Sister Lipids Sister SOCIAL HISTORY Social History Tobacco Use Smoking status: Former Current packs/day: 0.50 Average packs/day: 0.5 packs/day for 5.0 years (2.5 ttl pk-yrs) Types: Cigarettes, Pipe Smokeless tobacco: Never Vaping Use Vaping status: Never Used Substance Use Topics Alcohol use: Yes Alcohol/week: 1.0 standard drink of alcohol Types: 1 Cans of beer per week Comment: or less. Drug use: Not Currently Types: Marijuana PHYSICAL EXAMINATION Pulse (!) 57 Resp 18 Wt 98.3 kg (216 lb 11.2 oz) SpO2 97% BMI 29.39 kg/m GENERAL EXAM: General appearance: NAD, pleasant. HEENT: NC/AT, nasal congestion absent, no oral lesions, membranes moist. NECK: ROM nml. Lungs: CTA bilaterally. CV: RRR nl S1, S2. Extr: No cyanosis, clubbing or edema. Skin: Cool to touch. NEUROLOGICAL EXAM: General: Masked facies. Mild hypophonia. Awake, alert, oriented x3 (person,place,time), fluent, no dysarthria; comprehension, naming, repetition intact. CN: PERRL, EOMI and without nystagmus, VFF to confrontation, facial sensation and strength are normal and symmetric, hearing is intact to finger rub bilaterally, palate and tongue movements are intact and symmetric. SCM and trapezius strength normal. Motor: Normal tone, bulk and strength (5/5) bilaterally (throughout extremities x4). Coordination: FNF, intact. TANIKA mild bradykin tina but symmetric. No tremors. Sensation: Light touch intact throughout. No evidence of neglect. Gait: Difficulty rising from chair but does so today without use of assist or upper exts. No retropulsion on pull test. Nml stride with use of walker. Assessment and Plan: ASSESSMENT/PLAN: 1. Parkinson's disease, unspecified whether dyskinesia present, unspecified whether manifestations fluctuate (HCC) - ICD9: 332.0, ICD10: G20.A1 (primary diagnosis) 2. Gait abnormality - ICD9: 781.2, ICD10: R26.9 3. Speech disturbance, unspecified type - ICD9: 784.59, ICD10: R47.9 4. Ataxia - ICD9: 781.3, ICD10: R27.0 5. History of subdural hematoma - ICD9: V12.59, ICD10: Z86.79 6. Spinal stenosis in cervical region - ICD9: 723.0, ICD10: M48.02 7. Spinal stenosis of lumbar region without neurogenic claudication - ICD9: 724.02, ICD10: M48.061 While pt is uncertain as to whether symptoms have improved with use of Sinemet, evaluation today including neurologic exam does indicate improvement, including significant improvement in mobility. While PT also likely contributed to improvement, I would still like to try and further increase Sinemet dosing. I would also like to make sure that he is receiving doses as advised. Thus, will increase Sinemet 25/100mg to 1.5 tabs at [id number]. Will also add Sinemet CR 50/200 at 10PM given that pt is up and down through the night and concern for impaired mobility at such hours with last dose of 25/100 likely wearing off by 9PM. SE and ADRs reviewed with pt and family and they agree with plan. Will also request that PT is restarted with focus on PD symptoms. Pt wanting no further spine workup with known severe C spine stenosis as previously mentioned and multilevel canal stenosis in L spine. 8. Benign prostatic hyperplasia with urinary frequency - ICD9: 600.01, 788.41, ICD10: N40.1, R35.0 9. Nocturia - ICD9: 788.43, ICD10: R35.1 Consult to urology. Suspect urinary symptoms due to known BPH and less likely due to spine disease, although may contribute. Bonifacio Ledbetter MD I spent a total of 40+ minutes on the date of the service which included preparing to see the patient, [id number] patient care, completing clinical documentation, obtaining and/or reviewing separately obtained history, performing a medically appropriate examination, counseling and educating the patient/family/caregiver, ordering medications, tests, or procedures, and communicating results to the patient/family/caregiver. documented in this encounter [facility] 08-26-2024 Telephone encounter Note Provider Confirmation Form, Special Supplemental Benefits for the Chronically Ill (SSBCI) completed by Dr. Deras and faxed to [phone]. PCP marking - Meets the defined criteria. Rosetta Zamorano LPN [facility] 08-26-2024 Miscellaneous Notes Provider Confirmation Form, Special Supplemental Benefits for the Chronically Ill (SSBCI) completed by Dr. Deras and faxed to [phone]. PCP marking - Meets the defined criteria. Rosetta Zamorano LPN documented in this encounter [facility] 06-26-2024 Note HNO ID: [id number] Author: BONIFACIO LEDBETTER JR, MD Service: ? Author Type: Physician Type: Progress Notes Filed: 06/28/2024 10:33 Note Text: ESTABLISHED PATIENT VISIT CHIEF COMPLAINT: Follow Up HISTORY OF PRESENT ILLNESS: Deniz Kumar is a 89 year old male, There were no vitals taken for this visit. with a PMH significant for and per last office visit of 03/13/24: 1. Ataxia - ICD9: 781.3, ICD10: R27.0 (primary diagnosis) 2. Gait abnormality - ICD9: 781.2, ICD10: R26.9 3. Leg weakness, bilateral - ICD9: 729.89, ICD10: R29.898 4. Facial droop - ICD9: 781.94, ICD10: R29.810 5. Tremor - ICD9: 781.0, ICD10: R25.1 6. Speech disturbance, unspecified type - ICD9: 784.59, ICD10: R47.9 7. History of subdural hematoma - ICD9: V12.59, ICD10: Z86.79 8. Spinal stenosis in cervical region - ICD9: 723.0, ICD10: M48.02 Patient with multiple complaints as above, as well as abnormal neurologic examination concerning of unsteady gait, as well as findings possibly suggestive of Parkinsonism. While pt does have noted history of a traumatic SDH, symptoms of gait disturbance were present even prior Unclear at this time, if in fact pt with PD, alternative dx or whether symptoms multifactorial. Change in language as well as possible facial weakness would suggest intracranial cause of symptoms. Increased tone in LUE could be due to intracranial or C spine etiology which would also contribute to gait disturbance (I.e. significant spinal stenosis). Also question whether subjective weakness or abnormal gait due to a lumbar disorder. Finally and as above, all symptoms possible secondary to suspected underlying PD. Ddx d/w pt and his family. Will proceed first with brain and spine imaging at levels above (MRIs). If MRIs unremarkable for cause, then feel appropriate to place on trial of Sinemet 25/100mg TID with meals to see if improvement of symptoms. They agree with plan. Pt to follow up after imaging complete. MRI brain/C/L spine completed and per rad reports: Acute Change: There is no evidence of restricted diffusion to suggest an acute infarct. Hemorrhage: There are chronic microhemorrhages in the left cerebral white matter most pronounced posteriorly as well as a small volume of chronic hemosiderin deposition in the posterior left cerebral sulci. No acute intracranial hemorrhage. Mass Lesion/ Mass Effect: No evidence of an intracranial mass or extra-axial fluid collection. No significant mass effect. Chronic Change: Patchy nonspecific T2 hyperintense signal in the white matter, likely secondary to chronic small vessel ischemic disease. Prominent perivascular spaces versus chronic lacunar infarcts in the basal ganglia bilaterally. Small chronic infarcts in the cerebellum. Parenchyma: Generalized volume loss. The brain parenchyma is otherwise within normal limits of signal intensity and morphology. Ventricles: Ventriculomegaly corresponds to the degree of parenchymal volume loss. Cervical spine degenerative changes most pronounced at C4-5 and C5-6. Lumbar spine degenerative changes most pronounced at L3-4. C4-C5: Disc osteophyte complex, ligamentum flavum thickening, and facet and uncovertebral hypertrophy with moderate spinal canal narrowing and severe bilateral neural foramen narrowing. C5-C6: Disc osteophyte complex, ligamentum flavum thickening, and facet and uncovertebral hypertrophy with severe spinal canal narrowing as well as moderate right and severe left neural foramen narrowing. L3-L4: Disc bulge, facet hypertrophy, and ligamentum flavum thickening with moderate central spinal canal narrowing, severe narrowing of both subarticular recesses, and moderate bilateral neural foramen narrowing. L4-L5: Disc bulge, facet hypertrophy, and ligamentum flavum thickening with diffuse moderate spinal canal narrowing and mild left and moderate right neural foramen narrowing. Patient had fall in May 2024 - states just got up one morning and states had no balance. States was taken to the hospital. Patient with limited history of what happened in [facility] and I do not have complete hospital records. Those records in [facility] reviewed. No mention of acute intracranial process or other acute finding on imaging. D/c to [facility]. Patient reporting bladder incontinence - pt blaming on enlarged prostate. Family disagrees and feels a regular problem. No numbness or tingling. Balance is primary issue per family - balance issues as soon as patient stands up. When asked about weakness, states he does not think weakness is the right word but cannot explain it. Also having lower back pain - worse when lying flat. REVIEW OF SYSTEMS GENERAL:No weight loss, malaise or fevers. HEENT:Negative for frequent or significant headaches, No changes in hearing or vision, no nose bleeds or other nasal problems NECK:Negative for lumps, goiter, pain and significant neck swelling RESPIRATORY: Negativ (more content not included)... [facility] 06-26-2024 History of Present illness Narrative ESTABLISHED PATIENT VISIT CHIEF COMPLAINT: Follow Up HISTORY OF PRESENT ILLNESS: Deniz Kumar is a 89 year old male, There were no vitals taken for this visit. with a H significant for and per last office visit of 03/13/24: 1. Ataxia - ICD9: 781.3, ICD10: R27.0 (primary diagnosis) 2. Gait abnormality - ICD9: 781.2, ICD10: R26.9 3. Leg weakness, bilateral - ICD9: 729.89, ICD10: R29.898 4. Facial droop - ICD9: 781.94, ICD10: R29.810 5. Tremor - ICD9: 781.0, ICD10: R25.1 6. Speech disturbance, unspecified type - ICD9: 784.59, ICD10: R47.9 7. History of subdural hematoma - ICD9: V12.59, ICD10: Z86.79 8. Spinal stenosis in cervical region - ICD9: 723.0, ICD10: M48.02 Patient with multiple complaints as above, as well as abnormal neurologic examination concerning of unsteady gait, as well as findings possibly suggestive of Parkinsonism. While pt does have noted history of a traumatic SDH, symptoms of gait disturbance were present even prior Unclear at this time, if in fact pt with PD, alternative dx or whether symptoms multifactorial. Change in language as well as possible facial weakness would suggest intracranial cause of symptoms. Increased tone in LUE could be due to intracranial or C spine etiology which would also contribute to gait disturbance (I.e. significant spinal stenosis). Also question whether subjective weakness or abnormal gait due to a lumbar disorder. Finally and as above, all symptoms possible secondary to suspected underlying PD. Ddx d/w pt and his family. Will proceed first with brain and spine imaging at levels above (MRIs). If MRIs unremarkable for cause, then feel appropriate to place on trial of Sinemet 25/100mg TID with meals to see if improvement of symptoms. They agree with plan. Pt to follow up after imaging complete. MRI brain/C/L spine completed and per rad reports: Acute Change: There is no evidence of restricted diffusion to suggest an acute infarct. Hemorrhage: There are chronic microhemorrhages in the left cerebral white matter most pronounced posteriorly as well as a small volume of chronic hemosiderin deposition in the posterior left cerebral sulci. No acute intracranial hemorrhage. Mass Lesion/ Mass Effect: No evidence of an intracranial mass or extra-axial fluid collection. No significant mass effect. Chronic Change: Patchy nonspecific T2 hyperintense signal in the white matter, likely secondary to chronic small vessel ischemic disease. Prominent perivascular spaces versus chronic lacunar infarcts in the basal ganglia bilaterally. Small chronic infarcts in the cerebellum. Parenchyma: Generalized volume loss. The brain parenchyma is otherwise within normal limits of signal intensity and morphology. Ventricles: Ventriculomegaly corresponds to the degree of parenchymal volume loss. Cervical spine degenerative changes most pronounced at C4-5 and C5-6. Lumbar spine degenerative changes most pronounced at L3-4. C4-C5: Disc osteophyte complex, ligamentum flavum thickening, and facet and uncovertebral hypertrophy with moderate spinal canal narrowing and severe bilateral neural foramen narrowing. C5-C6: Disc osteophyte complex, ligamentum flavum thickening, and facet and uncovertebral hypertrophy with severe spinal canal narrowing as well as moderate right and severe left neural foramen narrowing. L3-L4: Disc bulge, facet hypertrophy, and ligamentum flavum thickening with moderate central spinal canal narrowing, severe narrowing of both subarticular recesses, and moderate bilateral neural foramen narrowing. L4-L5: Disc bulge, facet hypertrophy, and ligamentum flavum thickening with diffuse moderate spinal canal narrowing and mild left and moderate right neural foramen narrowing. Patient had fall in May 2024 - states just got up one morning and states had no balance. was taken to the hospital. Patient with limited history of what happened in [facility] and I do not have complete hospital records. Those records in [facility] reviewed. No mention of acute intracranial process or other acute finding on imaging. D/c to [facility]. Patient reporting bladder incontinence - pt blaming on enlarged prostate. Family disagrees and feels a regular problem. No numbness or tingling. Balance is primary issue per family - balance issues as soon as patient stands up. When asked about weakness, states he does not think weakness is the right word but cannot explain it. Also having lower back pain - worse when lying flat. REVIEW OF SYSTEMS GENERAL:No weight loss, malaise or fevers. HEENT:Negative for frequent or significant headaches, No changes in hearing or vision, no nose bleeds or other nasal problems NECK:Negative for lumps, goiter, pain and significant neck swelling RESPIRATORY: Negative for cough, wheezing or shortness of breath. CARDIOVASCULAR: Negative for chest pain, leg swelling or palpitations. GASTROINTESTINAL: Negative for abdominal discomfort, blood in stools or black stools or change in bowel habits GENITOURINARY: See HPI. MUSCULOSKELETAL: Negative for joint pain or swelling, back pain or muscle pain. NEUROLOGIC:See HPI. LAB/IMAGING: Those performed since patient's last visit have been reviewed. WBC (k/uL) Date Value 02/14/2024 3.74 RBC (m/uL) Date Value 02/14/2024 4.85 Hemoglobin (g/dL) Date Value 02/14/2024 14.7 Hematocrit (%) Date Value 02/14/2024 43.5 MCV (fL) Date Value 02/14/2024 89.7 MCH (pg) Date Value 02/14/2024 30.3 MCHC (g/dL) Date Value 02/14/2024 33.8 RDW-CV (%) Date Value 02/14/2024 13.2 Platelet Count (k/uL) Date Value 02/14/2024 117 (L) MPV (fL) Date Value 02/14/2024 11.0 Glucose (mg/dL) Date Value 02/14/2024 88 BUN (mg/dL) Date Value 02/14/2024 18 Creatinine (mg/dL) Date Value 02/14/2024 0.82 Sodium (mmol/L) Date Value 02/14/2024 136 Potassium (mmol/L) Date Value 02/14/2024 4.2 Chloride (mmol/L) Date Value 02/14/2024 102 CO2 (mmol/L) Date Value 02/14/2024 26 Protein, Total (g/dL) Date Value 11/14/2023 6.3 Albumin (g/dL) Date Value 11/14/2023 4.0 Calcium, Total (mg/dL) Date Value 02/14/2024 9.7 Alkaline Phosphatase (U/L) Date Value 11/14/2023 70 Bilirubin, Total (mg/dL) Date Value 11/14/2023 0.6 AST (U/L) Date Value 11/14/2023 16 ALT (U/L) Date Value 11/14/2023 13 MEDICATIONS: tolterodine (DETROL) 1 mg tablet Take 1 tablet by mouth two times a day. lisinopril (ZESTRIL) 40 mg tablet Take 1 tablet by mouth once daily. finasteride (PROSCAR) 5 mg tablet Take 1 tablet by mouth once daily. melatonin 3 mg tablet Take 1 tablet by mouth daily at bedtime. aspirin, enteric coated (ASPIRIN, ENTERIC COATED) 81 mg EC tablet Take 1 tablet by mouth once daily. MULTIVITAMIN TAB Take one(1) tablet daily. HISTORIES PAST MEDICAL HISTORY Diagnosis Date Benign prostatic hyperplasia with urinary obstruction Brain TIA 11/03/2018 Chronic nonallergic rhinitis 07/12/2016 Closed fracture of left ankle 06/23/2023 Diverticulosis of colon (without mention of hemorrhage) Diverticulosis of large intestine Erectile dysfunction 01/16/2018 Erectile dysfunction, unspecified erectile dysfunction type Essential hypertension 02/22/2006 Fall 06/22/2023 Hypertrophy of prostate with urinary obstruction and other lower urinary tract symptoms (LUTS) Internal hemorrhoids without mention of complication OAB (overactive bladder) Pure hypercholesterolemia SAH (subarachnoid hemorrhage) (HCC) 07/16/2023 Subdural hematoma (HCC) 06/21/2023 Thrombocytopenia, unspecified (HCC) 2017 FAMILY HISTORY Problem Relation Age of Onset Prostate Cancer Father metastatic prostate Cancer Mother liver Hypertension Sister Lipids Sister SOCIAL HISTORY Social History Tobacco Use Smoking status: Former Current packs/day: 0.50 Average packs/day: 0.5 packs/day for 5.0 years (2.5 ttl pk-yrs) Types: Cigarettes, Pipe Smokeless tobacco: Never Vaping Use Vaping status: Never Used Substance Use Topics Alcohol use: Yes Alcohol/week: 1.0 standard drink of alcohol Types: 1 Cans of beer per week Comment: or less. Drug use: Not Currently Types: Marijuana PHYSICAL EXAMINATION BP 132/85 (BP Site: Right Arm, BP Position: Sitting) Pulse 68 SpO2 97% General: Masked facies. Awake, alert, oriented x3 (person,place,time), fluent but noted change in speed of word retrieval as above, no dysarthria; comprehension, naming, repetition intact. All unchanged since last visit. CN: PERRL, EOMI and without nystagmus, VFF to confrontation, facial sensation symmetric and no weakness noted today, hearing is intact, palate and tongue movements are intact and symmetric. SCM and trapezius strength symmetric. Motor: Normal bulk and strength (5/5) bilaterally (throughout extremities x4). Tone increased in RUE>LUE today. Coordination: FNF intact but TANIKA impaired to some degree in LUE (unchanged). Resting tremor or other tremor not observed. Sensation: LT, PP, vibration, temperature intact throughout. No evidence of neglect. DTRs: No clonus. Gait: Needs assist to rise from chair. Only able to take couple steps. Very unsteady. Assessment and Plan: ASSESSMENT/PLAN: 1. Gait abnormality - ICD9: 781.2, ICD10: R26.9 (primary diagnosis) 2. Leg weakness, bilateral - ICD9: 729.89, ICD10: R29.898 3. Speech disturbance, unspecified type - ICD9: 784.59, ICD10: R47.9 4. Ataxia - ICD9: 781.3, ICD10: R27.0 5. History of subdural hematoma - ICD9: V12.59, ICD10: Z86.79 6. Spinal stenosis in cervical region - ICD9: 723.0, ICD10: M48.02 7. Spinal stenosis of lumbar region without neurogenic claudication - ICD9: 724.02, ICD10: M48.061 Patient with multiple neurologic complaints as above, the primary being balance and gait impairment. Suspect multifactorial including history of SDH, but also significant spinal stenosis (reviewed both C and L spine images with patient today). Patient is not wanting further evaluation of spine, including not wanting at minimal a surgical evaluation. Already in therapy. Still question if also component of parkinsonism contributing to symptoms based on exam findings (I.e. increased tone, masked facies, . D/w pt and his family option of at providing treatment specific for possible Parkinson's disease to see if any response. Pt interested as would not non-invasive treatment. D/w them treatment options, and will place on trial of Sinemet 25/100mg TID with meals to see if any improvement. SE and ADRs d/w pt and family and advised if any they stop the med and contact us immediately. Will have patient return to clinic in 8 weeks to see if any improvement and determine if medication should be continued or increased.. If any abrupt progression of disease/symptoms they will contact us immediately and explained that for acute neurologic changes that they should be seen in the ER immediately. They agree with plan. Bonifacio Ledbetter MD I spent a total of 35 minutes on the date of the service which included preparing to see the patient, [id number] patient care, completing clinical documentation, obtaining and/or reviewing separately obtained history, performing a medically appropriate examination, counseling and educating the patient/family/caregiver, ordering medications, tests, or procedures, independently interpreting results (not separately reported), and communicating results to the patient/family/caregiver. . documented in this encounter [facility] 06-26-2024 Note HNO ID: [id number] Author: ROSA STEINER LPN Service: ? Author Type: LICENSED NURSE Type: Progress Notes Filed: 06/28/2024 10:33 Note Text: [facility] 06-01-2024 Telephone encounter Note Rec'd records from [facility] pt was discharged from there to snf [facility] 05/30/24. [facility] 06-01-2024 Miscellaneous Notes Rec'd records from [facility] pt was discharged from there to snf [facility] 05/30/24. documented in this encounter [facility] 05-30-2024 Note [facility] Medical Records Department [address] [place] [address] Discharge Summary 05/30/24 1310 MR#: [id number] Acct: [id number] Name: DENIZ KUMAR Rep #: [id number] : [id number] From: Mirian Farris DO PCP: Dr. Vadim Deras MD Status:DIS IN [id number] Date of Admission: 05/19/24 Date of Discharge: 05/30/24 Primary Care Physician: Dr. Vadim Deras MD Reason For Visit: DEBILITY Diagnosis Discharge Diagnosis (1) Debility: Status: Acute Code(s): R53.81 - Other malaise Plan: Due to generalized weakness. (2) Elevated troponin: Status: Inactive Code(s): R79.89 - Other specified abnormal findings of blood chemistry Plan: Not significant. Troponin max was only 97 and it did not trend. (3) Weakness: Status: Chronic Code(s): R53.1 - Weakness (4) Hypertension: Status: Chronic Code(s): I10 - Essential (primary) hypertension Qualifiers: Hypertension type: primary hypertension Qualified Code(s): I10 - Essential (primary) hypertension (5) BPH (benign prostatic hyperplasia): Status: Chronic Code(s): N40.0 - Benign prostatic hyperplasia without lower urinary tract symptoms Qualifiers: Lower urinary tract symptom presence: symptoms absent Qualified Code(s): N40.0 - Benign prostatic hyperplasia without lower urinary tract symptoms (6) Spinal stenosis: Status: Chronic Code(s): M48.00 - Spinal stenosis, site unspecified Qualifiers: Spinal region: unspecified Qualified Code(s): M48.00 - Spinal stenosis, site unspecified (7) Insomnia: Status: Acute Code(s): G47.00 - Insomnia, unspecified Qualifiers: Insomnia type: unspecified Qualified Code(s): G47.00 - Insomnia, unspecified (8) Overactive bladder: Status: Resolved Code(s): N32.81 - Overactive bladder (9) Dehydration: Status: Acute Code(s): E86.0 - Dehydration Plan DC to non-skilled NH. Medications at Discharge Home Medications finasteride 5 mg tablet 5 mg PO DAILY Bladder 06/21/23 melatonin 3 mg capsule 3 mg PO DAILY Sleep 06/21/23 Lactobacillus acidophilus 250 million cell capsule (Probiotic Acidophilus) 500 mmu cells PO DAILY Probiotic 06/27/23 acetaminophen 500 mg capsule 1,000 mg PO Q6H PRN pain 06/27/23 menthol 2 % topical gel (Blue Gel) 1 applic topical TID PRN PRN Pain Score 1-10 #0 grams 07/16/23 aspirin 81 mg capsule 81 mg PO DAILY Heart health 05/15/24 food supplemt, lactose-reduced 0.08 gram-1.5 kcal/mL oral liquid (Ensure Plus High Protein) 120 ml PO TIDCM #120 mL 05/29/24 losartan 100 mg tablet 100 mg PO DAILY #1 TAB 05/29/24 potassium chloride 20 mEq tablet,extended release(part/cryst) 20 meq PO DAILYCM #1 TAB 05/29/24 rivaroxaban 10 mg tablet (Xarelto) 10 mg PO DAILY #1 TAB 05/29/24 sennosides 8.6 mg-docusate sodium 50 mg tablet (Stimulant Laxative Plus) 2 tab PO BID #1 TAB 05/29/24 tolterodine 2 mg capsule,extended release 24 hr 2 mg PO DAILY #1 cap 05/29/24 Hospital Course Summary of Care Provided Minutes Spent on Discharge: 35 Hospital Course: DENIZ KUMAR, is a 88 YO male with a past medical history of spinal canal stenosis, TIA, diverticulosis, nonallergic rhinitis, BPH, hyperlipidemia and hypertension who presented to the emergency department at [facility] on 05/15/2024 complaining of generalized weakness, back pain and difficulty ambulating. He was admitted to the hospitalist service. Lab in the ED showed a normal troponin at 66 but, it increased to 97. K was low at 3.4. BUN was 29 with a creatinine of 0.89 which is within his baseline. CBC was unremarkable. EKG showed normal sinus rhythm with left axis deviation and no significant ST or T wave changes. He was admitted to the hospitalist service. Echocardiogram was done and showed an EF of 55% with trivial MR and mild AR. He was seen by PT/OT while in the hospital and fdc was recommended at discharge. He was discharged to the transitional care unit at [facility] on 05/19/2024 for strengthening/rehabilitation in hopes of getting him home. The SW was in touch with his sister who is his NCPOA) and a concern was voiced about him returning to his trailer to live by himself. apparently he has intermittent confusion and has been falling. Arrangements were made to transfer to a non-fdc facilty following TCU admission and he reluctantly agreed. He was transferred on 05/30/24. Vital signs at the time of discharge are blood pressure 142/68, heart rate 89, temp 98 ???F, respiratory rate 18 and he was 93 to 97% saturated on room air. Adjustments were recently made to his antihypertensive regimen but, will likely need additional adjustments following DC to get the BP controlled. Since he has a hx of TIA the goal BP should be < 130/80. His most recent lab was done on 05/27/2024. The CBC is unremarkable with a normal white blood cell count (more content not included)... [facility] 05-20-2024 Telephone encounter Note Spoke to Gerri, advised of message below. Verbalized understanding. Rosa Steiner LPN May 20, 2024 8:57 AM [facility] 05-20-2024 Miscellaneous Notes Spoke to Gerri, advised of message below. Verbalized understanding. Rosa Steiner LPN May 20, 2024 8:57 AM Defer to those providers following patient at the transitional care unit. Bonifacio Ledbetter MD Patient's sister Gerri Barnes calling and would like Dr. Ledbetter to know that patient had a recent fall and is now at [facility] for therapy. Sister Gerri asking if Dr. Ledbetter would like to add any specific exercises to pt's regimen there? Please call Gerri with reply at [phone]. Leanne Tejada RN documented in this encounter [facility] 05-19-2024 Telephone encounter Note Defer to those providers following patient at the transitional care unit. Bonifacio Ledbetter MD [facility] 05-19-2024 Note [facility] Medical Records Department [address] [place] [address] History Physical Exam 05/19/241938 MR#: [id number] Acct: [id number] Name: DENIZ KUMAR Rep #: [id number] : 1935 88 From: Preston Camilo MD PCP: Dr. Vadim Deras MD Status:ADM IN Location: [place] [address] HPI - General General Date of Admission: 05/19/24 Date of Service: 05/19/24 Chief Complaint: Here for rehabilitation. HPI Narrative DENIZ KUMAR, is a 88 Male who presents with followin05/15/2024 [facility] ED with weakness. Intermittent back pain, weakness, recent MRI showed spinal stenosis. Generalized weakness, difficulty ambulating. Drinks little 2/2 urinary incontinence, Bilateral foot numbness. CBCD okay, BMP okay, UA negative, Troponin 69. 05/15/2024 Admit [facility]. PT/OT for weakness. Elevated troponin 2/2 HTN. 05/15/2024 Echo EF 55%. Diastolic dysfunction indeterminate. 05/16/2024 Weakness 2/2 aching pain in bilateral thighs. Order crp, esr. Hydralazine IV prn elevated blood pressure. 05/17/2024 Confused. CRP 5.99, ESR normal, inflammatory myopathy unlikely. 05/18/2024 04/10/2024 MRI spine showed degeneartion C4-5, C5-6, L3-4. PT/OT. 05/19/2024 Admit to TCU with debility, here for rehabilitation, strengthening, prior to discharge home alone. [facility] Medical History (Updated 05/19/24 @ 19:[address] Preston Camilo MD) Spinal stenosis TIA (transient ischemic attack) Diverticulosis Nonallergic rhinitis BPH (benign prostatic hyperplasia) Hypercholesterolemia Hypertension Home Medications ???Medication ???Instructions ???Recorded ???Last Taken ???Type finasteride 5 mg tablet 5 mg PO DAILY Bladder 06/21/23 05/19/24 History melatonin 3 mg capsule 3 mg PO DAILY Sleep 06/21/23 05/14/24 History Lactobacillus acidophilus 250 500 mmu cells PO DAILY Probiotic 06/27/23 Unknown History million cell capsule (Probiotic Acidophilus) acetaminophen 500 mg capsule 1,000 mg PO Q6H PRN pain 06/27/23 Unknown History menthol 2 % topical gel (Blue Gel) 1 applic topical TID PRN PRN Pain 07/16/23 Unknown Rx Score 1-10 #0 grams multivitamin 1 tab PO BREAKFAST supplement #0 07/16/23 Unknown Rx tabs aspirin 81 mg capsule 81 mg PO DAILY Heart health 05/15/24 05/19/24 History lisinopril 40 mg tablet 40 mg PO DAILY BP 05/15/24 05/19/24 History ofloxacin 0.3 % eye drops 1 drp RIGHT EYE 4X/DAY Eye drops 05/15/24 Unknown History tolterodine 1 mg tablet 1 mg PO BID Bladder 05/15/24 05/18/24 History Allergy/AdvReac Type Severity Reaction Status Date / Time salicylic acid Allergy Swelling Verified 05/15/24 13:10 Family History Father Cancer Prostate cancer Mother Cancer Liver cancer Sister Hypertension Hyperlipidemia Surgical History History of open reduction and internal fixation (ORIF) procedure Social History household members: none housing: other details: Mobile home pets and animals: Yes (Dog) Smoking Status: Former smoker pack-years: 3 alcohol intake: current alcohol intake frequency: a few times a month Alcohol type: beer details: 1 beer a week. substance use type: marijuana and other details: Has used marijuana in the past but not currently. ROS Constitutional Constitutional: Reports weakness; Denies chills, fever(s) or weight gain ENT HEENT: Denies headache(s), nasal congestion or nasal discharge Cardiovascular Cardiovascular: Denies chest pain or palpitations Respiratory/Chest Respiratory/Chest: Denies cough, excessive phlegm production or shortness of breath with exertion Gastrointestinal Gastrointestinal: Denies abdominal pain, nausea or vomiting Genitourinary Genitourinary: Denies dysuria Musculoskeletal Musculoskeletal: Denies joint pain or joint swelling Integumentary Integumentary: Denies rash or wounds Neurologic Neurologic: Denies focal weakness, numbness or tingling Psychiatric Psychiatric: Denies anxiety, auditory hallucinations, depression, homicidal ideation or suicidal ideation Vital Signs Vital Signs Vital Signs: 05/19/24 12:11 05/19/24 12:11 05/19/24 12:55 Temperature 97.3 F L Temperature Source Temporal Pulse Rate 80 80 Pulse Rhythm Regular Pulse Strength Normal (2+) Respiratory Rate 16 Respiratory Effort Normal Non-Labored Respiratory Depth Normal Respiratory Pattern Normal Blood Pressure 168/109 H 168/109 H Blood Pressure Mean 128 Blood Pressure Source Monitor Blood Pressure Position Sitting Blood Pressure Location Left Arm Pulse Ox 96 96 Oxygen Delivery Method Room Air Room Air Weight Weight: 92.8 kg Body Mass Index (BMI) 27.7 Physical Exam Co (more content not included)... [facility] 05-19-2024 Telephone encounter Note Patient's sister Gerri Barnes calling and would like Dr. Ledbetter to know that patient had a recent fall and is now at [facility] for therapy. Sister Gerri asking if Dr. Ledbetter would like to add any specific exercises to pt's regimen there? Please call Gerri with reply at [phone]. Leanne Tejada RN [facility] 05-19-2024 Note [facility] Medical Records Department [address] [place] [address] Discharge Summary 05/19/24 0953 MR#: [id number] Acct: [id number] Name: DENIZ KUMAR Rep #: [id number] : 1935 88 From: Kendall Dowling DO PCP: Dr. Vadim Deras MD Status:ADM [facility] Location: [place] [address] Providers Date of Admission: 05/15/24 Primary Care Physician: Dr. Vadim Deras MD Reason For Visit: ACUTE ON CHRONIC DEBILITY, ELEVATED TROPONINS Diagnosis Discharge Diagnosis (1) Debility: Status: Acute Code(s): R53.81 - Other malaise (2) Elevated troponin: Status: Acute Code(s): R79.89 - Other specified abnormal findings of blood chemistry Plan Acute on chronic debility * work up here unremarkable. * through [facility] patient had an MRI of his cervical and lumbar spine on April 10 that that showed cervical spine degenerative changes most pronounced at C4-5 and C5-6. Lumbar spine degenerative changes most pronounced at L3-4 * PT OT evaluate and treat. elevated troponins; * Echo showed an EF of 55% * Through [facility], I did not see any previous troponins outside of [facility]. No additional workup at this time. Chronic conditions: * Hypertension: On home lisinopril 40 mg daily and doxazosin 1 mg daily. Blood pressures in the ED have been in the 140s over 160s systolic with a few readings in the low 100s diastolic. Continue home lisinopril and doxazosin and will add IV hydralazine as needed for SBP greater than 170. Has chlorthalidone, clonidine and losartan listed on home medication list, is unclear if/when he took these medications in the past. Will likely need close follow-up with PCP for further medication adjustments. * Urinary incontinence??? Reports urinary continence for the last 3 to 4 years. Stable.??? Continue home tolterodine. * BPH with obstructive symptoms Continue home finasteride. DVT: Lovenox Disposition: to TCU Medications at Discharge Home Medications finasteride 5 mg tablet 5 mg PO DAILY Bladder 06/21/23 melatonin 3 mg capsule 3 mg PO DAILY Sleep 06/21/23 Lactobacillus acidophilus 250 million cell capsule (Probiotic Acidophilus) 500 mmu cells PO DAILY Probiotic 06/27/23 acetaminophen 500 mg capsule 1,000 mg PO Q6H PRN pain 06/27/23 menthol 2 % topical gel (Blue Gel) 1 applic topical TID PRN PRN Pain Score 1-10 #0 grams 07/16/23 multivitamin 1 tab PO BREAKFAST #0 tabs 07/16/23 aspirin 81 mg capsule 81 mg PO DAILY 05/15/24 lisinopril 40 mg tablet 40 mg PO DAILY 05/15/24 ofloxacin 0.3 % eye drops 1 drp RIGHT EYE 4X/DAY 05/15/24 tolterodine 1 mg tablet 1 mg PO BID 05/15/24 Hospital Course Operations None Procedures None Weight / BMI Weight Weight: 96.7 kg Body Mass Index (BMI) 28.9 ABG / Lab / Microbiology Data 05/18/24 05:34 05/18/24 05:34 D/C Instructions DC O2, CPAP, BIPAP Needs Additional Home O2 Discharge instructions: No DC home with Oxygen: No Meaningful Use Info Meaningful Use Meaningful Use Diagnoses (Choose all that apply): None applicable Ischemic Stroke Statin Dosing Therapy Reference: STATIN DOSE THERAPY REFERENCE: * Patients > 75 years receive moderate or high dose statin therapy. * Patients 75 years or YOUNGER should receive HIGH intensity statin dose unless contraindicated. You will be required to document reason for non-treatment if statin daily dose does not meet guidelines. HIGH DOSE STATIN THERAPY DAILY Atorvastatin > than or = to 40 mg Rosuvastatin > than or = to 20 mg Amlodipine + Atorvastatin > than or = to 2.5/40 mg Ezetimibe + Simvastatin 10/80 mg Simvastatin 80mg Discharge Plan Admission Admit Date/Time: 05/15/24 17:22 Primary Reason for Your Visit: debility Attending Provider: Kendall Dowling Primary Care Provider: Vadim Deras Consulting Providers: Jon Arce; Elroy Nunez Discharge Orders/Prescriptions Prescriptions: Continued finasteride 5 mg tablet 5 mg PO DAILY melatonin 3 mg capsule 3 mg PO DAILY acetaminophen 500 mg capsule 1,000 mg PO Q6H PRN (Reason: pain) Probiotic Acidophilus 250 million cell capsule 500 mmu cells PO DAILY Patient Comments: states doesnt take qd multivitamin Tablet 1 tab PO BREAKFAST Qty: 0 0RF menthol [Blue Gel] 2 % Gel 1 applic topical TID PRN PRN (Reason: Pain Score 1-10) Qty: 0 0RF ofloxacin 0.3 % drops 1 drp RIGHT EYE 4X/DAY tolterodine 1 mg tablet 1 mg PO BID lisinopril 40 mg tablet 40 mg PO DAILY aspirin 81 mg capsule 81 mg PO DAILY Discontinued clonidine HCl 0.1 mg Tablet 0.1 mg PO Q6H PRN PRN (Reason: SYS>165 DIAST>85) Qty: 0 0RF chlorthalidone 50 mg Tablet 25 mg PO DAILY Qty: 0 0RF losartan 100 mg Tablet 100 mg PO DAILY Qty: 0 0RF calcium carbonate-vitamin D3 [Oyster Shell Calcium-Vit D3] 500 mg-5 mcg (200 (more content not included)... [facility] 04-27-2024 Telephone encounter Note Patient reports he had cancelled the tolterodine at the pharmacy, and since then has changed his mind, and would like to try it, for his BPH w/urgency of urination. Asking if pcp would resend this Rx to [facility]. Pended. [facility] 04-27-2024 Miscellaneous Notes Patient reports he had cancelled the tolterodine at the pharmacy, and since then has changed his mind, and would like to try it, for his BPH w/urgency of urination. Asking if pcp would resend this Rx to [facility]. Pended. documented in this encounter [facility] 04-13-2024 Telephone encounter Note TC to patient who verbalized understanding of providers message below. Patient agreeable to see Spine, please place consult. Patient also questioning if he needs to keep follow up appointment with Dr. Ledbetter on 06/26. ADRIAN Hall [facility] 04-13-2024 Miscellaneous Notes TC to patient who verbalized understanding of providers message below. Patient agreeable to see Spine, please place consult. Patient also questioning if he needs to keep follow up appointment with Dr. Ledbetter on 06/26. ADRIAN Hall ----- Message from Bonifacio Ledbetter MD sent at 04/12/2024 10:31 PM EDT ----- Patient with severe C spine stenosis and moderate-severe L spine stenosis and thus would like him to see spine. If ok, will place referral. These findings may be the cause of patient's symptoms. Bonifacio Ledbetter MD documented in this encounter [facility] 04-13-2024 Telephone encounter Note ----- Message from Bonifacio Ledbetter MD sent at 04/12/2024 10:31 PM EDT ----- Patient with severe C spine stenosis and moderate-severe L spine stenosis and thus would like him to see spine. If ok, will place referral. These findings may be the cause of patient's symptoms. Bonifacio Ledbetter MD [facility] 04-10-2024 History of Present illness Narrative Radiology Service Progress Note PATIENT NAME: Deniz Kumar DATE OF SERVICE: April 10, 2024 TIME: 8:29 AM PATIENT IDENTITY VERIFICATION COMPLETED USING TWO (2) IDENTIFIERS: Name and Date of confirmed by patient verbally. FALL SCREENING: Has the patient had 2 falls in the last year or 1 fall with injury or currently using an Ambulatory Assistive Device (Walker, Cane, Wheelchair, Crutches, etc.)? No PATIENT GENDER DATA: Male PATIENT RELEVANT IMPLANT DATA REVIEWED: Yes PATIENT PRESENTS WITH AN IMPLANTABLE OR ATTACHED VIBRATOR EQUIPMENT TESTER: No RADIOLOGY DEPARTMENT: MR; Exam(s) Completed: Head: Routine Brain Spine: Cervical spine and Lumbar spine PERIPHERAL IV DATA: Not applicable SIGNED BY: RT Wilton(Taryn) April 10, 2024 8:29 AM documented in this encounter [facility] 04-10-2024 Note HNO ID: [id number] Author: MISTI NGUYEN RT(R) Service: ? Author Type: Technologist Type: Progress Notes Filed: 04/10/2024 08:30 Note Text: Radiology Service Progress Note PATIENT NAME: Deniz Kumar DATE OF SERVICE: April 10, 2024 TIME: 8:29 AM PATIENT IDENTITY VERIFICATION COMPLETED USING TWO (2) IDENTIFIERS: Name and Date of confirmed by patient verbally. FALL SCREENING: Has the patient had 2 falls in the last year or 1 fall with injury or currently using an Ambulatory Assistive Device (Walker, Cane, Wheelchair, Crutches, etc.)? No PATIENT GENDER DATA: Male PATIENT RELEVANT IMPLANT DATA REVIEWED: Yes PATIENT PRESENTS WITH AN IMPLANTABLE OR ATTACHED VIBRATOR EQUIPMENT TESTER: No RADIOLOGY DEPARTMENT: MR; Exam(s) Completed: Head: Routine Brain Spine: Cervical spine and Lumbar spine PERIPHERAL IV DATA: Not applicable SIGNED BY: LILIAM Núñez) April 10, 2024 8:29 AM [facility] 04-02-2024 Note HNO ID: [id number] Author: ?, ?, ? Service: ? Author Type: ? Type: Progress Notes Filed: 04/02/2024 10:45 Note Text: Deniz Kumar is identified through a medication adherence outreach initiative based on pharmacy claims data from [employer] (insurer) for SANGITA medication(s). Patient is reviewed 04/02/24 due to medication adherence concerns with the following medications (name, strength, sig): Lisinopril 40 mg 1 tablet every day . Per data/report, last fill date and days supply: Due 03/07/2024 Per reconcile dispense, last fill date and days supply: No data/ Per portal 11/21/2023 for 90 days Per call to pharmacy, last picked up date and days supply: NA Contacted patient: Spoke to patient Patient is identified by Name and . Discussion on adherence consisted of - Patients dose increased to 40 mg and patient still had 20 mg tablets on hand, so he used those first. Any need for new prescription (I.e. out of refills on most recent prescription) YES/NO/Active: No The Patient verbalizes understanding and denies further questions/concerns at this time. Outcome of review/outreach: (choose outcome source and status) - Patient/Caregiver declined refill per call to patient/caregiver Alexandr Griffin [facility] 04-02-2024 History of Present illness Narrative Deniz Kumar is identified through a medication adherence outreach initiative based on pharmacy claims data from [employer] (insurer) for SANGITA medication(s). Patient is reviewed 04/02/24 due to medication adherence concerns with the following medications (name, strength, sig): Lisinopril 40 mg 1 tablet every day . Per data/report, last fill date and days supply: Due 03/07/2024 Per reconcile dispense, last fill date and days supply: No data/ Per portal 11/21/2023 for 90 days Per call to pharmacy, last picked up date and days supply: NA Contacted patient: Spoke to patient Patient is identified by Name and . Discussion on adherence consisted of - Patients dose increased to 40 mg and patient still had 20 mg tablets on hand, so he used those first. Any need for new prescription (I.e. out of refills on most recent prescription) YES/NO/Active: No The Patient verbalizes understanding and denies further questions/concerns at this time. Outcome of review/outreach: (choose outcome source and status) - Patient/Caregiver declined refill per call to patient/caregiver Alexandr Griffin documented in this encounter [facility] 04-02-2024 Note Patient Outreach ([facility]) DENIZ KUMAR ([id number]) 1935 M Date Time Provider Department 04/02/24 VADIM DERAS During your visit today, we recorded the following information about you: Alexandr Griffin 04/02/2024 10:45 AM Signed Deniz Kumar is identified through a medication adherence outreach initiative based on pharmacy claims data from [employer] (insurer) for SANGITA medication(s). Patient is reviewed 04/02/24 due to medication adherence concerns with the following medications (name, strength, sig): Lisinopril 40 mg 1 tablet every day . Per data/report, last fill date and days supply: Due 03/07/2024 Per reconcile dispense, last fill date and days supply: No data/ Per portal 11/21/2023 for 90 days Per call to pharmacy, last picked up date and days supply: NA Contacted patient: Spoke to patient Patient is identified by Name and . Discussion on adherence consisted of - Patients dose increased to 40 mg and patient still had 20 mg tablets on hand, so he used those first. Any need for new prescription (I.e. out of refills on most recent prescription) YES/NO/Active: No The Patient verbalizes understanding and denies further questions/concerns at this time. Outcome of review/outreach: (choose outcome source and status) - Patient/Caregiver declined refill per call to patient/caregiver Alexandr Griffin Allergies As of Date: 04/02/2024 Noted Allergy Reaction [id number] REDUCTASE INHIBIT*08/23/2023 17 - Myalgia Comments: Weakess, falls CLEARASIL MAXIMUM STRENGTH 09/16/2018 7 - Swelling Date Reviewed: 03/16/2024 Reviewed by: Bonifacio Ledbetter Jr., MD - Fully Assessed Reason for Visit: Allied Health Visit [5] Cmt: Medication Adherence Outreach Prescriptions as of 04/02/2024 - lisinopril (ZESTRIL) 40 mg tablet Take 1 tablet by mouth once daily. - finasteride (PROSCAR) 5 mg tablet Take 1 tablet by mouth once daily. - melatonin 3 mg tablet Take 1 tablet by mouth daily at bedtime. - aspirin, enteric coated (ASPIRIN, ENTERIC COATED) 81 mg EC tablet Take 1 tablet by mouth once daily. - MULTIVITAMIN TAB Take one(1) tablet daily. Problem List As Of Date 04/02/2024 Noted Resolved Diverticulosis of large intestine [K57.30] 02/21/2024 Hyperlipidemia [E78.5] 08/28/2005 Essential hypertension [I10] 02/22/2006 Unspecified disorder of prostate [N42.9] 02/14/2007 07/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 [R79.89] 02/14/2007 07/12/2016 Dizziness and giddiness [R42] 08/22/2007 07/12/2016 Benign prostatic hyperplasia with urinary obstr*07/05/2010 Chronic nonallergic rhinitis [J31.0] 07/12/2016 02/21/2024 Thrombocytopenia, unspecified (HCC) [D69.6] 2017 Erectile dysfunction [N52.9] 01/16/2018 02/21/2024 Obesity, Class II, BMI 35-39.9 [E66.812] 07/28/2020 Urgency of urination [R39.15] 07/28/2020 Subdural hematoma (HCC) [S06.5XAA] 06/21/2023 Fall [W19.XXXA] 06/22/2023 Closed fracture of left ankle [S82.892A] 06/23/2023 02/21/2024 SAH (subarachnoid hemorrhage) (HCC) [I60.9] 07/16/2023 History of TIA (transient ischemic attack) [Z86*08/23/2023 Gait abnormality [R26.9] 08/23/2023 Edema of leg [R60.0] 02/21/2024 Encounter Status:Closed by ALEXANDR GRIFFIN on 04/02/24 [facility] 03-13-2024 Note HNO ID: [id number] Author: BONIFACIO LEDBETTER JR, MD Service: ? Author Type: Physician Type: Progress Notes Filed: 03/16/2024 08:40 Note Text: NEW PATIENT (CONSULT) HISTORY AND PHYSICAL EXAM PRIMARY CARE PHYSICIAN: Vadim Deras MD REASON FOR CONSULT: Abnormal gait, leg weakness. REFERRING PHYSICIAN: Vadim Deras MD CHIEF COMPLAINT: Unsteady gait Consultation requested by Vadim Deras MD for an opinion regarding chief complaint of Patient presents with: New Patient: Gait abnormality, bilateral leg weakness and my final recommendations will be communicated back to the requesting physician by way of shared medical record or letter via [place] mail. HISTORY OF PRESENT ILLNESS: Deniz Kumar is a 88 year old male, with a PMH significant for HTN, HLD, thrombocytopenia as well as SDH in 05/2023 secondary to fall and associated with a L ankle fracture. Per neurosurgery notes, SDH near-resolved on serial CTs earlier this year. Note that it appears pt only had CT scans at time of SDH and no MRI brain performed. (CT images and reports reviewed and agree with rad reports -- images also reviewed with pt and his family during office visit with demonstration of prior intracranial hemorrhage). No significant spine imaging. Pt reports weakness started before the above fall and that is why he was out trying to exercise. 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 Patient states he felt things started going down hill when first Rx'd statins that were causing pains in the prox legs - resulting in his wanting to then exercise more and resulting in the fall. Off statins and pain now gone. However, then reports when performs therapy is having pain in lower back, rear end and thighs per patient." Patient does reports falls since that resulting in the head injury. Denies numbness or tingling. Patient reports bladder issues but relates it to enlarged prostate. Currently with nocturia. Pt does not provide history to clarify if incontinence. Denies any change in vision (chronic L retinal disorder), speech, dizziness or arm strength. Sister feels that since fall, in addition to gait complaints, patient is having more difficulties with word retrieval and legs are obviously weak. Notes occasional tremor when holding a cup. Handwriting a bit smaller. No constipation. No RBD type symptoms. No family history of neuro disorders. REVIEW OF SYSTEMS GENERAL:No weight loss, malaise or fevers. HEENT:Negative for frequent or significant headaches, No changes in hearing or vision, no nose bleeds or other nasal problems NECK:Negative for lumps, goiter, pain and significant neck swelling RESPIRATORY: Negative for cough, wheezing or shortness of breath. CARDIOVASCULAR: Negative for chest pain, + leg swelling or palpitations. GASTROINTESTINAL: Negative for abdominal discomfort, blood in stools or black stools or change in bowel habits GENITOURINARY: No history of dysuria, frequency or incontinence MUSCULOSKELETAL: Negative for joint pain or swelling, back pain or muscle pain. NEUROLOGIC:See HPI. SKIN:Negative for lesions, rash, and itching. PSYCHIATRIC: Negative for sleep disturbance, mood disorder and recent psychosocial stressors. HEMATOLOGIC/LYMPHATIC/IMMUNOLOGIC: Negative for prolonged bleeding, bruising easily or swollen nodes. ENDOCRINE: Negative for cold or heat intolerance, polyuria, polydipsia and goiter. The remainder of the ROS was reviewed and is negative. LAB/IMAGING: Reviewed and include: WBC (k/uL) Date Value 02/14/2024 3.74 RBC (m/uL) Date Value 02/14/2024 4.85 Hemoglobin (g/dL) Date Value 02/14/2024 14.7 Hematocrit (%) Date Value 02/14/2024 43.5 MCV (fL) Date Value 02/14/2024 89.7 MCH (pg) Date Value 02/14/2024 30.3 MCHC (g/dL) Date Value 02/14/2024 33.8 RDW-CV (%) Date Value 02/14/2024 13.2 Platelet Count (k/uL) Date Value 02/14/2024 117 (L) MPV (fL) Date Value 02/14/2024 11.0 Glucose (mg/dL) Date Value 02/14/2024 88 BUN (mg/dL) Date Value 02/14/2024 18 Creatinine (mg/dL) Date Value 02/14/2024 0.82 Sodium (mmol/L) Date Value 02/14/2024 136 Potassium (mmol/L) Date Value 02/14/2024 4.2 Chloride (mmol/L) Date Value 02/14/2024 102 CO2 (mmol/L) Date Value 02/14/2024 26 Protein, Total (g/dL) Date Value 11/14/2023 6.3 Albumin (g/dL) Date Value 11/14/2023 4.0 Calcium, Total (mg/dL) Date Value 02/14/2024 9.7 Alkaline Phosphatase (U/L) Date Value 11/14/2023 70 Bilirubin, Total (mg/dL) Date Value 11/14/2023 0.6 AST (U/L) Date Value 11/14/2023 16 ALT (U/L) Date Value 11/14/2023 13 URINALYSIS Specific [place], Ur Date Value Ref Range Status 02/15/2023 1.021 1.005 - 1.030 Final Glucose, Urine Date Value Ref Range Status 02/15/2023 Negative Trace, Negative Final Bilirubin, Urine Date Value Ref Range Status 02/15/2023 Negative Negative (more content not included)... [facility] 03-13-2024 History of Present illness Narrative NEW PATIENT (CONSULT) HISTORY AND PHYSICAL EXAM PRIMARY CARE PHYSICIAN: Vadim Deras MD REASON FOR CONSULT: Abnormal gait, leg weakness. REFERRING PHYSICIAN: Vadim Deras MD CHIEF COMPLAINT: Unsteady gait Consultation requested by Vadim Deras MD for an opinion regarding chief complaint of Patient presents with: New Patient: Gait abnormality, bilateral leg weakness and my final recommendations will be communicated back to the requesting physician by way of shared medical record or letter via [place] mail. HISTORY OF PRESENT ILLNESS: Deniz Kumar is a 88 year old male, with a PMH significant for HTN, HLD, thrombocytopenia as well as SDH in 05/2023 secondary to fall and associated with a L ankle fracture. Per neurosurgery notes, SDH near-resolved on serial CTs earlier this year. Note that it appears pt only had CT scans at time of SDH and no MRI brain performed. (CT images and reports reviewed and agree with rad reports -- images also reviewed with pt and his family during office visit with demonstration of prior intracranial hemorrhage). No significant spine imaging. Pt reports weakness started before the above fall and that is why he was out trying to exercise. 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 Patient states he felt things started going down hill when first Rx'd statins that were causing pains in the prox legs - resulting in his wanting to then exercise more and resulting in the fall. Off statins and pain now gone. However, then reports when performs therapy is having pain in "lower back, rear end and thighs per patient." Patient does reports falls since that resulting in the head injury. Denies numbness or tingling. Patient reports bladder issues but relates it to enlarged prostate. Currently with nocturia. Pt does not provide history to clarify if incontinence. Denies any change in vision (chronic L retinal disorder), speech, dizziness or arm strength. Sister feels that since fall, in addition to gait complaints, patient is having more difficulties with word retrieval and legs are obviously weak. Notes occasional tremor when holding a cup. Handwriting a bit smaller. No constipation. No RBD type symptoms. No family history of neuro disorders. REVIEW OF SYSTEMS GENERAL:No weight loss, malaise or fevers. HEENT:Negative for frequent or significant headaches, No changes in hearing or vision, no nose bleeds or other nasal problems NECK:Negative for lumps, goiter, pain and significant neck swelling RESPIRATORY: Negative for cough, wheezing or shortness of breath. CARDIOVASCULAR: Negative for chest pain, + leg swelling or palpitations. GASTROINTESTINAL: Negative for abdominal discomfort, blood in stools or black stools or change in bowel habits GENITOURINARY: No history of dysuria, frequency or incontinence MUSCULOSKELETAL: Negative for joint pain or swelling, back pain or muscle pain. NEUROLOGIC:See HPI. SKIN:Negative for lesions, rash, and itching. PSYCHIATRIC: Negative for sleep disturbance, mood disorder and recent psychosocial stressors. HEMATOLOGIC/LYMPHATIC/IMMUNOLOGIC: Negative for prolonged bleeding, bruising easily or swollen nodes. ENDOCRINE: Negative for cold or heat intolerance, polyuria, polydipsia and goiter. The remainder of the ROS was reviewed and is negative. LAB/IMAGING: Reviewed and include: WBC (k/uL) Date Value 02/14/2024 3.74 RBC (m/uL) Date Value 02/14/2024 4.85 Hemoglobin (g/dL) Date Value 02/14/2024 14.7 Hematocrit (%) Date Value 02/14/2024 43.5 MCV (fL) Date Value 02/14/2024 89.7 MCH (pg) Date Value 02/14/2024 30.3 MCHC (g/dL) Date Value 02/14/2024 33.8 RDW-CV (%) Date Value 02/14/2024 13.2 Platelet Count (k/uL) Date Value 02/14/2024 117 (L) MPV (fL) Date Value 02/14/2024 11.0 Glucose (mg/dL) Date Value 02/14/2024 88 BUN (mg/dL) Date Value 02/14/2024 18 Creatinine (mg/dL) Date Value 02/14/2024 0.82 Sodium (mmol/L) Date Value 02/14/2024 136 Potassium (mmol/L) Date Value 02/14/2024 4.2 Chloride (mmol/L) Date Value 02/14/2024 102 CO2 (mmol/L) Date Value 02/14/2024 26 Protein, Total (g/dL) Date Value 11/14/2023 6.3 Albumin (g/dL) Date Value 11/14/2023 4.0 Calcium, Total (mg/dL) Date Value 02/14/2024 9.7 Alkaline Phosphatase (U/L) Date Value 11/14/2023 70 Bilirubin, Total (mg/dL) Date Value 11/14/2023 0.6 AST (U/L) Date Value 11/14/2023 16 ALT (U/L) Date Value 11/14/2023 13 URINALYSIS Specific [place], Ur Date Value Ref Range Status 02/15/2023 1.021 1.005 - 1.030 Final Glucose, Urine Date Value Ref Range Status 02/15/2023 Negative Trace, Negative Final Bilirubin, Urine Date Value Ref Range Status 02/15/2023 Negative Negative Final Ketones, Urine Date Value Ref Range Status 02/15/2023 Negative Trace, Negative Final Hemoglobin/Blood,Ur Date Value Ref Range Status 02/15/2023 Negative Negative, Trace Final Protein, Urine Date Value Ref Range Status 02/15/2023 Negative Trace, Negative Final WBC, Urine Date Value Ref Range Status 02/15/2023 0-5 /HPF 0-5 /HPF Final MEDICATIONS: lisinopril (ZESTRIL) 40 mg tablet Take 1 tablet by mouth once daily. finasteride (PROSCAR) 5 mg tablet Take 1 tablet by mouth once daily. melatonin 3 mg tablet Take 1 tablet by mouth daily at bedtime. aspirin, enteric coated (ASPIRIN, ENTERIC COATED) 81 mg EC tablet Take 1 tablet by mouth once daily. MULTIVITAMIN TAB Take one(1) tablet daily. HISTORIES PAST MEDICAL HISTORY Diagnosis Date Benign prostatic hyperplasia with urinary obstruction Brain TIA 11/03/2018 Chronic nonallergic rhinitis 07/12/2016 Closed fracture of left ankle 06/23/2023 Diverticulosis of colon (without mention of hemorrhage) Diverticulosis of large intestine Erectile dysfunction 01/16/2018 Erectile dysfunction, unspecified erectile dysfunction type Essential hypertension 02/22/2006 Fall 06/22/2023 Hypertrophy of prostate with urinary obstruction and other lower urinary tract symptoms (LUTS) Internal hemorrhoids without mention of complication OAB (overactive bladder) Pure hypercholesterolemia SAH (subarachnoid hemorrhage) ([facility]) 07/16/2023 Subdural hematoma (HCC) 06/21/2023 Thrombocytopenia, unspecified (HCC) 2017 FAMILY HISTORY Problem Relation Age of Onset Prostate Cancer Father metastatic prostate Cancer Mother liver Hypertension Sister Lipids Sister SOCIAL HISTORY Social History Tobacco Use Smoking status: Former Current packs/day: 0.50 Average packs/day: 0.5 packs/day for 5.0 years (2.5 ttl pk-yrs) Types: Cigarettes, Pipe Smokeless tobacco: Never Vaping Use Vaping status: Never Used Substance Use Topics Alcohol use: Yes Alcohol/week: 1.0 standard drink of alcohol Types: 1 Cans of beer per week Comment: or less. Drug use: Not Currently Types: Marijuana PHYSICAL EXAMINATION Blood pressure 145/90, pulse 62, weight 98.2 kg (216 lb 9.6 oz), SpO2 96%. GENERAL EXAM: General appearance: NAD, pleasant. HEENT: NC/AT, nasal congestion absent, no oral lesions, membranes moist. NECK: ROM nml. Lungs: CTA bilaterally. CV: RRR nl S1, S2. No carotid bruits. Extr: No cyanosis, clubbing but 1+ pedal edema. No evidence of fasciculations. Extremity pulses palpable and normal. Skin: Cool to touch. NEUROLOGICAL EXAM: General: Masked facies. Awake, alert, oriented x3 (person,place,time), fluent but noted change in speed of word retrieval as above, no dysarthria; comprehension, naming, repetition intact. CN: PERRL, EOMI and without nystagmus, VFF to confrontation, facial sensation symmetric but possible aysmmetry of smile with L mouth droop with active smiling (no way to confirm if chronic at this time), hearing is intact, palate and tongue movements are intact and symmetric. SCM and trapezius strength symmetric. Motor: Normal bulk and strength (5/5) bilaterally (throughout extremities x4). Tone increased in LUE. Coordination: FNF intact but TANIKA impaired to some degree in LUE. Resting tremor not observed. Sensation: LT, PP, vibration, temperature intact throughout. No evidence of neglect. Gait: Unable to rise from chair without the assist of upper exts and slow to do so. Mild stooped posture. Decreased armswing on L. Unsteady turning 180 degrees (3-5 steps). Narrow based but not shuffling. Romberg unremarkable but + retropulsion on pull testing. Assessment and Plan: ASSESSMENT/PLAN: 1. Ataxia - ICD9: 781.3, ICD10: R27.0 (primary diagnosis) 2. Gait abnormality - ICD9: 781.2, ICD10: R26.9 3. Leg weakness, bilateral - ICD9: 729.89, ICD10: R29.898 4. Facial droop - ICD9: 781.94, ICD10: R29.810 5. Tremor - ICD9: 781.0, ICD10: R25.1 6. Speech disturbance, unspecified type - ICD9: 784.59, ICD10: R47.9 7. History of subdural hematoma - ICD9: V12.59, ICD10: Z86.79 8. Spinal stenosis in cervical region - ICD9: 723.0, ICD10: M48.02 Patient with multiple complaints as above, as well as abnormal neurologic examination concerning of unsteady gait, as well as findings possibly suggestive of Parkinsonism. While pt does have noted history of a traumatic SDH, symptoms of gait disturbance were present even prior Unclear at this time, if in fact pt with PD, alternative dx or whether symptoms multifactorial. Change in language as well as possible facial weakness would suggest intracranial cause of symptoms. Increased tone in LUE could be due to intracranial or C spine etiology which would also contribute to gain disturbance (I.e. significant spinal stenosis). Also question whether subjective weakness or abnormal gait due to a lumbar disorder. Finally and as above, all symptoms possible secondary to suspected underlying PD. Ddx d/w pt and his family. Will proceed first with brain and spine imaging at levels above (MRIs). If MRIs unremarkable for cause, then feel appropriate to place on trial of Sinemet 25/100mg TID with meals to see if improvement of symptoms. They agree with plan. Pt to follow up after imaging complete. Bonifacio Ledbetter MD Medical Decision Making: Problems: Moderate: New problem with uncertain prognosis Data: Unique test result(s) reviewed: 2 Unique test(s) ordered: 1 Medical Decision Making Level: 4 - Moderate documented in this encounter [facility] 02-26-2024 Telephone encounter Note Noted. [facility] 02-26-2024 Miscellaneous Notes Noted. Pt calls to report that insurance will not cover tolterodine 1 mg tab so he will not be taking medication. Melanie Naylor LPN documented in this encounter [facility] 02-25-2024 Telephone encounter Note Pt calls to report that insurance will not cover tolterodine 1 mg tab so he will not be taking medication. Melanie Naylor LPN [facility] 02-21-2024 Note HNO ID: [id number] Author: VADIM DERAS MD Service: ? Author Type: Physician Type: Progress Notes Filed: 02/21/2024 11:07 Note Text: This note was created using [employer]. Subjective Deniz Kumar is a 88 year old male. He was doing home exercises and working out at for leg strengthening. He complained of ongoing edema, and nocturia. Oxybutynin was no longer effective. 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 Review of Systems Constitutional: Negative for fatigue. Respiratory: Negative for shortness of breath. Cardiovascular: Positive for leg swelling. Negative for chest pain and palpitations. Gastrointestinal: Negative. Genitourinary: Positive for frequency and urgency. Negative for difficulty urinating and dysuria. Musculoskeletal: Negative for arthralgias. Neurological: Negative for dizziness and headaches. ACTIVE PROBLEM LIST Diverticulosis of Large Intestine Hyperlipidemia Essential Hypertension Benign Prostatic Hyperplasia With Urinary Obstruction Chronic Nonallergic Rhinitis Thrombocytopenia, Unspecified (Hcc) Erectile Dysfunction Obesity, Class II, Bmi 35-39.9 Urgency of Urination Subdural Hematoma (Hcc) Fall Closed Fracture of Left Ankle Sah (Subarachnoid Hemorrhage) (Hcc) History of Tia (Transient Ischemic Attack) Gait Abnormality Social History Tobacco Use Smoking status: Former Current packs/day: 0.50 Average packs/day: 0.5 packs/day for 5.0 years (2.5 ttl pk-yrs) Types: Cigarettes, Pipe Smokeless tobacco: Never Vaping Use Vaping status: Never Used Substance Use Topics Alcohol use: Yes Alcohol/week: 1.0 standard drink of alcohol Types: 1 Cans of beer per week Comment: or less. Drug use: Not Currently Types: Marijuana Current Outpatient Medications Medication Sig oxybutynin ER (DITROPAN XL) 10 mg 24 hr tablet Take 1 tablet by mouth every evening. lisinopril (ZESTRIL) 40 mg tablet Take 1 tablet by mouth once daily. finasteride (PROSCAR) 5 mg tablet Take 1 tablet by mouth once daily. doxazosin (CARDURA) 1 mg tablet Take 1 tablet by mouth once daily. melatonin 3 mg tablet Take 1 tablet by mouth daily at bedtime. aspirin, enteric coated (ASPIRIN, ENTERIC COATED) 81 mg EC tablet Take 1 tablet by mouth once daily. MULTIVITAMIN TAB Take one(1) tablet daily. No current facility-administered medications for this visit. Objective BP 112/73 Pulse 79 Resp 16 Ht 182.9 cm (6') Wt 96.7 kg (213 lb 3 oz) SpO2 98% BMI 28.91 kg/m? Physical Exam Constitutional: General: He is not in acute distress. HENT: Head: Normocephalic. Nose: Nose normal. Eyes: Conjunctiva/sclera: Conjunctivae normal. Cardiovascular: Rate and Rhythm: Normal rate and regular rhythm. Heart sounds: No murmur heard. No gallop. Pulmonary: Effort: No respiratory distress. Breath sounds: No wheezing or rales. Abdominal: Tenderness: There is no abdominal tenderness. Musculoskeletal: General: No tenderness. Right lower le+ Pitting Edema present. Left lower le+ Pitting Edema present. Lymphadenopathy: Cervical: No cervical adenopathy. Neurological: Mental Status: He is alert. Latest Ref Rng 02/14/2024 WBC 3.70 - 11.00 k/uL 3.74 RBC 4.20 - 6.00 m/uL 4.85 Hemoglobin 13.0 - 17.0 g/dL 14.7 Hematocrit 39.0 - 51.0 % 43.5 MCV 80.0 - 100.0 fL 89.7 MCH 26.0 - 34.0 pg 30.3 MCHC 30.5 - 36.0 g/dL 33.8 RDW-CV 11.5 - 15.0 % 13.2 Platelet Count 150 - 400 k/uL 117 (L) MPV 9.0 - 12.7 fL 11.0 Absolute nRBC <0.01 k/uL <0.01 Glucose 74 - 99 mg/dL 88 BUN 9 - 24 mg/dL 18 Creatinine 0.73 - 1.22 mg/dL 0.82 Sodium 136 - 144 mmol/L 136 Potassium 3.7 - 5.1 mmol/L 4.2 Chloride 98 - 107 mmol/L 102 CO2 22 - 30 mmol/L 26 Anion Gap 8 - 15 mmol/L 8 Calcium 8.5 - 10.2 mg/dL 9.7 eGFR >=60 mL/min/1.73m? 85 Legend: (L) Low Assessment and Plan 1. Medicare annual wellness visit, subsequent - ICD9: V70.0, ICD10: Z00.00 (primary diagnosis) See wellness note. 2. Screening for depression - ICD9: V79.0, ICD10: Z13.31 Negative. - DEPRESSION SCREENING 3. Encounter for screening examination for other mental health and behavioral disorders - ICD9: V79.8, ICD10: Z13.39 Negative. - ANXIETY SCREENING 4. History of TIA (transient ischemic attack) - ICD9: V12.54, ICD10: Z86.73 - Continue risk factor modification. 5. Gait abnormality - ICD9: 781.2, ICD10: R26.9 - Improved. 6. Essential hypertension - ICD9: 401.9, ICD10: I10 - Controlled - Stop DOXAZOSIN due to edema. - Encouraged sodium restriction, DASH or Mediterranean diet - Recommend regular aerobic exercise - Discussed need for and benefit of weight loss. BMI 28.91 kg/(m2) 7. Hyperlipidemia, unspecified hyperlipidemia type - ICD9: 272.4, ICD10: E78.5 - Controlled - Statin intolerant. 8. Benign prostatic hyperplasia with urinary obstruction - ICD9: 600.01, 599.69, ICD10: N40.1, N13.8 - Discontinue OXYBUTYNIN. - TOLTERODINE (more content not included)... [facility] 02-21-2024 History of Present illness Narrative This note was created using [email or web address]. Subjective Deniz Kumar is a 88 year old male. He was doing home exercises and working out at for leg strengthening. He complained of ongoing edema, and nocturia. Oxybutynin was no longer effective. 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 Review of Systems Constitutional: Negative for fatigue. Respiratory: Negative for shortness of breath. Cardiovascular: Positive for leg swelling. Negative for chest pain and palpitations. Gastrointestinal: Negative. Genitourinary: Positive for frequency and urgency. Negative for difficulty urinating and dysuria. Musculoskeletal: Negative for arthralgias. Neurological: Negative for dizziness and headaches. ACTIVE PROBLEM LIST Diverticulosis of Large Intestine Hyperlipidemia Essential Hypertension Benign Prostatic Hyperplasia With Urinary Obstruction Chronic Nonallergic Rhinitis Thrombocytopenia, Unspecified (Hcc) Erectile Dysfunction Obesity, Class II, Bmi 35-39.9 Urgency of Urination Subdural Hematoma (Hcc) Fall Closed Fracture of Left Ankle Sah (Subarachnoid Hemorrhage) (Hcc) History of Tia (Transient Ischemic Attack) Gait Abnormality Social History Tobacco Use Smoking status: Former Current packs/day: 0.50 Average packs/day: 0.5 packs/day for 5.0 years (2.5 ttl pk-yrs) Types: Cigarettes, Pipe Smokeless tobacco: Never Vaping Use Vaping status: Never Used Substance Use Topics Alcohol use: Yes Alcohol/week: 1.0 standard drink of alcohol Types: 1 Cans of beer per week Comment: or less. Drug use: Not Currently Types: Marijuana Current Outpatient Medications Medication Sig oxybutynin ER (DITROPAN XL) 10 mg 24 hr tablet Take 1 tablet by mouth every evening. lisinopril (ZESTRIL) 40 mg tablet Take 1 tablet by mouth once daily. finasteride (PROSCAR) 5 mg tablet Take 1 tablet by mouth once daily. doxazosin (CARDURA) 1 mg tablet Take 1 tablet by mouth once daily. melatonin 3 mg tablet Take 1 tablet by mouth daily at bedtime. aspirin, enteric coated (ASPIRIN, ENTERIC COATED) 81 mg EC tablet Take 1 tablet by mouth once daily. MULTIVITAMIN TAB Take one(1) tablet daily. No current facility-administered medications for this visit. Objective BP 112/73 Pulse 79 Resp 16 Ht 182.9 cm (6') Wt 96.7 kg (213 lb 3 oz) SpO2 98% BMI 28.91 kg/m Physical Exam Constitutional: General: He is not in acute distress. HENT: Head: Normocephalic. Nose: Nose normal. Eyes: Conjunctiva/sclera: Conjunctivae normal. Cardiovascular: Rate and Rhythm: Normal rate and regular rhythm. Heart sounds: No murmur heard. No gallop. Pulmonary: Effort: No respiratory distress. Breath sounds: No wheezing or rales. Abdominal: Tenderness: There is no abdominal tenderness. Musculoskeletal: General: No tenderness. Right lower le+ Pitting Edema present. Left lower le+ Pitting Edema present. Lymphadenopathy: Cervical: No cervical adenopathy. Neurological: Mental Status: He is alert. Latest Ref [facility] 02/14/2024 WBC 3.70 - 11.00 k/uL 3.74 RBC 4.20 - 6.00 m/uL 4.85 Hemoglobin 13.0 - 17.0 g/dL 14.7 Hematocrit 39.0 - 51.0 % 43.5 MCV 80.0 - 100.0 fL 89.7 MCH 26.0 - 34.0 pg 30.3 MCHC 30.5 - 36.0 g/dL 33.8 RDW-CV 11.5 - 15.0 % 13.2 Platelet Count 150 - 400 k/uL 117 (L) MPV 9.0 - 12.7 fL 11.0 Absolute nRBC <0.01 k/uL <0.01 Glucose 74 - 99 mg/dL 88 BUN 9 - 24 mg/dL 18 Creatinine 0.73 - 1.22 mg/dL 0.82 Sodium 136 - 144 mmol/L 136 Potassium 3.7 - 5.1 mmol/L 4.2 Chloride 98 - 107 mmol/L 102 CO2 22 - 30 mmol/L 26 Anion Gap 8 - 15 mmol/L 8 Calcium 8.5 - 10.2 mg/dL 9.7 eGFR >=60 mL/min/1.73m 85 Legend: (L) Low Assessment and Plan 1. Medicare annual wellness visit, subsequent - ICD9: V70.0, ICD10: Z00.00 (primary diagnosis) See wellness note. 2. Screening for depression - ICD9: V79.0, ICD10: Z13.31 Negative. - DEPRESSION SCREENING 3. Encounter for screening examination for other mental health and behavioral disorders - ICD9: V79.8, ICD10: Z13.39 Negative. - ANXIETY SCREENING 4. History of TIA (transient ischemic attack) - ICD9: V12.54, ICD10: Z86.73 - Continue risk factor modification. 5. Gait abnormality - ICD9: 781.2, ICD10: R26.9 - Improved. 6. Essential hypertension - ICD9: 401.9, ICD10: I10 - Controlled - Stop DOXAZOSIN due to edema. - Encouraged sodium restriction, DASH or Mediterranean diet - Recommend regular aerobic exercise - Discussed need for and benefit of weight loss. BMI 28.91 kg/(m^2) 7. Hyperlipidemia, unspecified hyperlipidemia type - ICD9: 272.4, ICD10: E78.5 - Controlled - Statin intolerant. 8. Benign prostatic hyperplasia with urinary obstruction - ICD9: 600.01, 599.69, ICD10: N40.1, N13.8 - Discontinue OXYBUTYNIN. - TOLTERODINE 1 MG TABLET. Take one(1) tablet two(2) times daily. Discussed medication dosage, usage, goals of therapy, and side effects. Coverage may be an issue. 9. Urgency of urination - ICD9: 788.63, ICD10: R39.15 See above. Call for refill or dose adjustment if covered and effective. - TOLTERODINE 1 MG TABLET 10. Edema of leg - ICD9: 782.3, ICD10: R60.0 - Continue compressions. He preferred not to take diuretic. Vadim Deras MD Images from the original note were not included. Deniz Kumar is a 88 year old male here for a Medicare wellness visit. Medicare Health Risk Assessment General Health Fair Exercise: Minutes/Day 30 min Exercise: Days/Week 3 days Alcohol: Daily Use 2-4 times a month Alcohol: Drinks/Day 1 or 2 Alcohol: 6 or more drinks Never Feel off balance Yes Concerns: Teeth/Dentures No Concerns: Sexual function No Troubled by feelings Stressed Frequency: Eating healthy diet More than half the days ADLs requiring help Cooking Safety precautions in home/vehicle Yes Smoke, vape, chews tobacco No Difficulty hearing No Difficulty seeing No Current Providers Specialists: I have reviewed specialist-related care of the patient in the medical record. Current care team: Patient Care Team: Vadim Deras MD as PCP - General (Internal Medicine) Outside specialists seen: Clinton Rivera MD, Ophthalmology. Bonifacio Ledbetter MD, Urology. Medical/Family history review Reviewed and updated problem list, medical/surgical/family/social history, medications, and allergies. Opioid use review Opioid Medications (last 90 days) No data to display Anxiety/Depression screening Recommendation: no further intervention at this time Cognitive screening Mini Cog Score: 5 Cognitive screening reviewed and No further action needed (score 3-5). Functional Observation Was the patient's Timed Up & Go test unsteady or ? 12 seconds? No Advance Care Planning Surrogate decision maker and/or advance care plan documented Measurements BP 112/73 Pulse 79 Resp 16 Ht 182.9 cm (6') Wt 96.7 kg (213 lb 3 oz) SpO2 98% BMI 28.91 kg/m Vision Screening: Follows with optometry/ophthalmology Right: 20/30 Left: 20/ 25 Both: 20/25 Assessment/Plan Medicare annual wellness visit, subsequent (Z00.00) - Counseled on healthy diet and regular exercise - Fall avoidance information provided - Personalized prevention plan provided - Discussed need for and benefit of weight loss. BMI 28.91 kg/(m^2) - Vaccine recommendations reviewed. Get at pharmacy. documented in this encounter [facility] 02-21-2024 Note HNO ID: [id number] Author: VADIM DERAS MD Service: ? Author Type: Physician Type: Progress Notes Filed: 02/21/2024 11:07 Note Text: Deniz Kumar is a 88 year old male here for a Medicare wellness visit. Medicare Health Risk Assessment General Health Fair Exercise: Minutes/Day 30 min Exercise: Days/Week 3 days Alcohol: Daily Use 2-4 times a month Alcohol: Drinks/Day 1 or 2 Alcohol: 6 or more drinks Never Feel off balance Yes Concerns: Teeth/Dentures No Concerns: Sexual function No Troubled by feelings Stressed Frequency: Eating healthy diet More than half the days ADLs requiring help Cooking Safety precautions in home/vehicle Yes Smoke, vape, chews tobacco No Difficulty hearing No Difficulty seeing No Current Providers Specialists: I have reviewed specialist-related care of the patient in the medical record. Current care team: Patient Care Team: Vadim Deras MD as PCP - General (Internal Medicine) Outside specialists seen: Clinton Rivera MD, Ophthalmology. Bonifacio Ledbetter MD, Urology. Medical/Family history review Reviewed and updated problem list, medical/surgical/family/social history, medications, and allergies. Opioid use review Opioid Medications (last 90 days) No data to display Anxiety/Depression screening Recommendation: no further intervention at this time Cognitive screening Mini Cog Score: 5 Cognitive screening reviewed and No further action needed (score 3-5). Functional Observation Was the patient's Timed Up AND Go test unsteady or ? 12 seconds? No Advance Care Planning Surrogate decision maker and/or advance care plan documented Measurements BP 112/73 Pulse 79 Resp 16 Ht 182.9 cm (6') Wt 96.7 kg (213 lb 3 oz) SpO2 98% BMI 28.91 kg/m? Vision Screening: Follows with optometry/ophthalmology Right: 20/30 Left: 20/ 25 Both: 20/25 Assessment/Plan Medicare annual wellness visit, subsequent (Z00.00) - Counseled on healthy diet and regular exercise - Fall avoidance information provided - Personalized prevention plan provided - Discussed need for and benefit of weight loss. BMI 28.91 kg/(m2) - Vaccine recommendations reviewed. Get at pharmacy. [facility] 02-21-2024 Nurse Note VISUAL ACUITY: Today's exam: Vision Correction? Glasses: RIGHT EYE: 20/unable due to previous eye injury LEFT EYE: 20/30 BOTH EYES: 20/25 [facility] 02-21-2024 Nurse Note VISUAL ACUITY: Today's exam: Vision Correction? Glasses: RIGHT EYE: 20/unable due to previous eye injury LEFT EYE: 20/30 BOTH EYES: 20/25 documented in this encounter [facility] 02-13-2024 Telephone encounter Note PATIENT NOTIFIED OF INFORMATION [facility] 02-13-2024 Miscellaneous Notes PATIENT NOTIFIED OF INFORMATION Orders placed. Patient called in again to see if any orders have been placed. Patient came in expecting labs for [facility] appointment on 02/21/24. No labs were placed. Please adivise and call patient if labs are placed. UMER Mauricio documented in this encounter [facility] 02-13-2024 Telephone encounter Note Orders placed. [facility] 02-13-2024 Telephone encounter Note Patient called in again to see if any orders have been placed. [facility] 02-13-2024 Telephone encounter Note Patient came in expecting labs for [facility] appointment on 02/21/24. No labs were placed. Please adivise and call patient if labs are placed. Robina Smith PSS [facility] 01-30-2024 Telephone encounter Note The patient has been identified by name and date of : Yes Caregiver verified no other encounters exist for this prescription request: Yes Caregiver confirmed with patient/requestor that no other refills are due, in the near future, with this provider at this time: Yes The last office visit in the department: 11/21/2023 Does the patient have a future office visit with this provider/department: Yes 02/21/2024 Requested Prescriptions Pending Prescriptions Disp Refills oxybutynin ER (DITROPAN XL) 10 mg 24 hr tablet 30 tablet 0 Sig: Take 1 tablet by mouth every evening. Nicole Orellana LPN January 30, 2024 11:11 AM [facility] 01-30-2024 Miscellaneous Notes The patient has been identified by name and date of : Yes Caregiver verified no other encounters exist for this prescription request: Yes Caregiver confirmed with patient/requestor that no other refills are due, in the near future, with this provider at this time: Yes The last office visit in the department: 11/21/2023 Does the patient have a future office visit with this provider/department: Yes 02/21/2024 Requested Prescriptions Pending Prescriptions Disp Refills oxybutynin ER (DITROPAN XL) 10 mg 24 hr tablet 30 tablet 0 Sig: Take 1 tablet by mouth every evening. Nicole Orellana LPN January 30, 2024 11:11 AM documented in this encounter [facility] 11-21-2023 Note HNO ID: [id number] Author: VADIM DERAS MD Service: ? Author Type: Physician Type: Progress Notes Filed: 11/21/2023 13:00 Note Text: This note was created using Nautitriter. Subjective Deniz Kumar is a 88 year old male. His gait was slowly improving. He was doing home exercise program, and scheduled to see neurology. His hypertension was staying elevated. His main complaint was insomnia from nocturia and urgency. He had no significant urine flow restriction based on urology evaluation last year. Review of Systems Constitutional: Negative for fatigue and unexpected weight change. Respiratory: Negative for shortness of breath. Cardiovascular: Positive for leg swelling. Negative for chest pain and palpitations. Musculoskeletal: Positive for gait problem. Neurological: Positive for tremors and weakness. ACTIVE PROBLEM LIST Diverticulosis of Large Intestine Hyperlipidemia Essential Hypertension Benign Prostatic Hyperplasia With Urinary Obstruction Chronic Nonallergic Rhinitis Thrombocytopenia, Unspecified (Hcc) Erectile Dysfunction Obesity, Class II, Bmi 35-39.9 Urgency of Urination Subdural Hematoma (Hcc) Fall Closed Fracture of Left Ankle Sah (Subarachnoid Hemorrhage) (Formerly [facility]) History of Tia (Transient Ischemic Attack) Gait Abnormality Current Outpatient Medications Medication Sig lisinopril (ZESTRIL) 20 mg tablet Take 1 tablet by mouth once daily. finasteride (PROSCAR) 5 mg tablet Take 1 tablet by mouth once daily. doxazosin (CARDURA) 1 mg tablet Take 1 tablet by mouth once daily. melatonin 3 mg tablet Take 1 tablet by mouth daily at bedtime. aspirin, enteric coated (ASPIRIN, ENTERIC COATED) 81 mg EC tablet Take 1 tablet by mouth once daily. MULTIVITAMIN TAB Take one(1) tablet daily. No current facility-administered medications for this visit. Objective BP 149/87 (BP Site: Left Arm, BP Position: Sitting, BP Cuff Size: Large Adult) Pulse 60 Temp 36.9 ?C (98.4 ?F) (Temporal) Wt 100.2 kg (221 lb) BMI 29.97 kg/m? Physical Exam Constitutional: General: He is not in acute distress. Cardiovascular: Rate and Rhythm: Normal rate and regular rhythm. Heart sounds: No murmur heard. No gallop. Pulmonary: Effort: No respiratory distress. Breath sounds: No wheezing or rales. Musculoskeletal: Right lower leg: No edema. Left lower leg: No edema. Neurological: General: No focal deficit present. Mental Status: He is alert. Gait: Gait normal. Latest Ref Rng 11/14/2023 Protein, Total 6.3 - 8.0 g/dL 6.3 Albumin 3.9 - 4.9 g/dL 4.0 Calcium 8.5 - 10.2 mg/dL 9.5 Bilirubin, Total 0.2 - 1.3 mg/dL 0.6 Alkaline Phosphatase 38 - 113 U/L 70 AST 14 - 40 U/L 16 ALT 10 - 54 U/L 13 Glucose 74 - 99 mg/dL 86 BUN 9 - 24 mg/dL 30 (H) Creatinine 0.73 - 1.22 mg/dL 0.83 Sodium 136 - 144 mmol/L 141 Potassium 3.7 - 5.1 mmol/L 4.1 Chloride 97 - 105 mmol/L 106 (H) CO2 22 - 30 mmol/L 32 (H) Anion Gap 9 - 18 mmol/L 3 (L) eGFR >=60 mL/min/1.73m? 85 Cholesterol, Total <200 mg/dL 169 Triglyceride <150 mg/dL 119 HDL Cholesterol >39 mg/dL 50 Non HDL Cholesterol <130 mg/dL 119 Fasting Time hrs 13 VLDL Cholesterol <30 mg/dL 24 TC:HDL Ratio <5.10 3.38 LDL Cholesterol <100 mg/dL 95 LDL:HDL Ratio <2.54 1.90 Legend: (H) High (L) Low Assessment and Plan 1. Leg weakness, bilateral - ICD9: 729.89, ICD10: R29.898 (primary diagnosis) Improving. 2. Gait abnormality - ICD9: 781.2, ICD10: R26.9 Improving. To see neurology. 3. Hyperlipidemia, unspecified hyperlipidemia type - ICD9: 272.4, ICD10: E78.5 - Controlled - Counseled on healthy diet and regular exercise - We agreed he should stay off statins at this point due to concern for muscle weakness. - Zetia was discussed. Discussed medication dosage, usage, goals of therapy, and side effects. He declined to start his also. 4. Essential hypertension - ICD9: 401.9, ICD10: I10 - Worsening control - Continue current medications - Increase lisinopril - LISINOPRIL 40 MG TABLET 5. Urgency of urination - ICD9: 788.63, ICD10: R39.15 - Shared Medical Decision Making was done: Medication: oxybutynin. Benefits: Medication may help nocturia. Risks: Possible side effects were discussed including constipation, dry mouth. Trial 30 tablets. Call for refill if effective. - OXYBUTYNIN CHLORIDE ER 10 MG TABLET,EXTENDED RELEASE 24 HR 6. Benign prostatic hyperplasia with urinary obstruction - ICD9: 600.01, 599.69, ICD10: N40.1, N13.8 See above. - OXYBUTYNIN CHLORIDE ER 10 MG TABLET,EXTENDED RELEASE 24 HR Vadim Deras MD [facility] 11-21-2023 History of Present illness Narrative This note was created using [email or web address]. Subjective Deniz Kumar is a 88 year old male. His gait was slowly improving. He was doing home exercise program, and scheduled to see neurology. His hypertension was staying elevated. His main complaint was insomnia from nocturia and urgency. He had no significant urine flow restriction based on urology evaluation last year. Review of Systems Constitutional: Negative for fatigue and unexpected weight change. Respiratory: Negative for shortness of breath. Cardiovascular: Positive for leg swelling. Negative for chest pain and palpitations. Musculoskeletal: Positive for gait problem. Neurological: Positive for tremors and weakness. ACTIVE PROBLEM LIST Diverticulosis of Large Intestine Hyperlipidemia Essential Hypertension Benign Prostatic Hyperplasia With Urinary Obstruction Chronic Nonallergic Rhinitis Thrombocytopenia, Unspecified (Hcc) Erectile Dysfunction Obesity, Class II, Bmi 35-39.9 Urgency of Urination Subdural Hematoma (Hcc) Fall Closed Fracture of Left Ankle Sah (Subarachnoid Hemorrhage) (Hcc) History of Tia (Transient Ischemic Attack) Gait Abnormality Current Outpatient Medications Medication Sig lisinopril (ZESTRIL) 20 mg tablet Take 1 tablet by mouth once daily. finasteride (PROSCAR) 5 mg tablet Take 1 tablet by mouth once daily. doxazosin (CARDURA) 1 mg tablet Take 1 tablet by mouth once daily. melatonin 3 mg tablet Take 1 tablet by mouth daily at bedtime. aspirin, enteric coated (ASPIRIN, ENTERIC COATED) 81 mg EC tablet Take 1 tablet by mouth once daily. MULTIVITAMIN TAB Take one(1) tablet daily. No current facility-administered medications for this visit. Objective BP 149/87 (BP Site: Left Arm, BP Position: Sitting, BP Cuff Size: Large Adult) Pulse 60 Temp 36.9 C (98.4 F) (Temporal) Wt 100.2 kg (221 lb) BMI 29.97 kg/m Physical Exam Constitutional: General: He is not in acute distress. Cardiovascular: Rate and Rhythm: Normal rate and regular rhythm. Heart sounds: No murmur heard. No gallop. Pulmonary: Effort: No respiratory distress. Breath sounds: No wheezing or rales. Musculoskeletal: Right lower leg: No edema. Left lower leg: No edema. Neurological: General: No focal deficit present. Mental Status: He is alert. Gait: Gait normal. Latest Ref Rng 11/14/2023 Protein, Total 6.3 - 8.0 g/dL 6.3 Albumin 3.9 - 4.9 g/dL 4.0 Calcium 8.5 - 10.2 mg/dL 9.5 Bilirubin, Total 0.2 - 1.3 mg/dL 0.6 Alkaline Phosphatase 38 - 113 U/L 70 AST 14 - 40 U/L 16 ALT 10 - 54 U/L 13 Glucose 74 - 99 mg/dL 86 BUN 9 - 24 mg/dL 30 (H) Creatinine 0.73 - 1.22 mg/dL 0.83 Sodium 136 - 144 mmol/L 141 Potassium 3.7 - 5.1 mmol/L 4.1 Chloride 97 - 105 mmol/L 106 (H) CO2 22 - 30 mmol/L 32 (H) Anion Gap 9 - 18 mmol/L 3 (L) eGFR >=60 mL/min/1.73m 85 Cholesterol, Total <200 mg/dL 169 Triglyceride <150 mg/dL 119 HDL Cholesterol >39 mg/dL 50 Non HDL Cholesterol <130 mg/dL 119 Fasting Time hrs 13 VLDL Cholesterol <30 mg/dL 24 TC:HDL Ratio <5.10 3.38 LDL Cholesterol <100 mg/dL 95 LDL:HDL Ratio <2.54 1.90 Legend: (H) High (L) Low Assessment and Plan 1. Leg weakness, bilateral - ICD9: 729.89, ICD10: R29.898 (primary diagnosis) Improving. 2. Gait abnormality - ICD9: 781.2, ICD10: R26.9 Improving. To see neurology. 3. Hyperlipidemia, unspecified hyperlipidemia type - ICD9: 272.4, ICD10: E78.5 - Controlled - Counseled on healthy diet and regular exercise - We agreed he should stay off statins at this point due to concern for muscle weakness. - Zetia was discussed. Discussed medication dosage, usage, goals of therapy, and side effects. He declined to start his also. 4. Essential hypertension - ICD9: 401.9, ICD10: I10 - Worsening control - Continue current medications - Increase lisinopril - LISINOPRIL 40 MG TABLET 5. Urgency of urination - ICD9: 788.63, ICD10: R39.15 - Shared Medical Decision Making was done: Medication: oxybutynin. Benefits: Medication may help nocturia. Risks: Possible side effects were discussed including constipation, dry mouth. Trial 30 tablets. Call for refill if effective. - OXYBUTYNIN CHLORIDE ER 10 MG TABLET,EXTENDED RELEASE 24 HR 6. Benign prostatic hyperplasia with urinary obstruction - ICD9: 600.01, 599.69, ICD10: N40.1, N13.8 See above. - OXYBUTYNIN CHLORIDE ER 10 MG TABLET,EXTENDED RELEASE 24 HR Vadim Deras MD documented in this encounter [facility] 10-14-2023 History of Present illness Narrative This note was created using [email or web address]. Subjective Patient presents with: Weakness Deniz Kumar is a 88 year old male who continued to have issues with leg weakness and unsteadiness in gait, since he was admitted for fall, head injury, SAH, SDH, and left ankle fracture. He felt he had muscle weakness from statin medication, so we did not resume statin, even as he was getting statin in the snf. He had rehab in the hospital, then in the sn[facility]. He was concerned about other issues like peripheral vascular disease and Parkinson's. One of his main complaint is difficulty getting up from a low chair. Review of Systems Constitutional: Negative for fatigue and unexpected weight change. Respiratory: Negative for shortness of breath. Cardiovascular: Positive for leg swelling. Negative for chest pain and palpitations. Gastrointestinal: Negative for constipation. Genitourinary: Negative for difficulty urinating. Musculoskeletal: Positive for gait problem. Neurological: Positive for tremors. Negative for light-headedness, numbness and headaches. ACTIVE PROBLEM LIST Diverticulosis of Large Intestine Hyperlipidemia Essential Hypertension Benign Prostatic Hyperplasia With Urinary Obstruction Chronic Nonallergic Rhinitis Thrombocytopenia, Unspecified (Hcc) Erectile Dysfunction Obesity, Class II, Bmi 35-39.9 Urgency of Urination Subdural Hematoma (Hcc) Fall Closed Fracture of Left Ankle Sah (Subarachnoid Hemorrhage) (Hcc) History of Tia (Transient Ischemic Attack) Gait Abnormality Current Outpatient Medications Medication Sig lisinopril (ZESTRIL) 20 mg tablet Take 1 tablet by mouth once daily. finasteride (PROSCAR) 5 mg tablet Take 1 tablet by mouth once daily. doxazosin (CARDURA) 1 mg tablet Take 1 tablet by mouth once daily. melatonin 3 mg tablet Take 1 tablet by mouth daily at bedtime. aspirin, enteric coated (ASPIRIN, ENTERIC COATED) 81 mg EC tablet Take 1 tablet by mouth once daily. Dietary Supplement cap Take 2 capsules by mouth once daily. SUPER BETA PROSTATE. calcium-cholecalciferol, D3, (OSCAL+D 250) 250 mg-3.125 mcg (125 unit) per tablet Take 2 tablets by mouth two times a day. MULTIVITAMIN TAB Take one(1) tablet daily. No current facility-administered medications for this visit. Objective Blood Pressure (Pended) 151/89 (BP Site: Left Arm, BP Position: Sitting, BP Cuff Size: Large Adult) Pulse (Pended) 77 Temperature 37 C (98.6 F) (Temporal) Respiration 20 Weight 98.9 kg (218 lb) Body Mass Index 29.57 kg/m Physical Exam Cardiovascular: Rate and Rhythm: Normal rate and regular rhythm. Pulses: Normal pulses. Heart sounds: No murmur heard. No gallop. Pulmonary: Effort: No respiratory distress. Breath sounds: No wheezing or rales. Abdominal: General: There is no distension. Tenderness: There is no abdominal tenderness. Musculoskeletal: Right lower leg: No edema. Left lower le+ Edema present. Neurological: General: No focal deficit present. Mental Status: He is alert. Sensory: No sensory deficit. Motor: Weakness present. No tremor or abnormal muscle tone. Gait: Gait abnormal. Deep Tendon Reflexes: Reflexes normal. Comments: Weakness getting up from a chair. Gait wide base, stable over all Assessment and Plan 1. Gait abnormality - ICD9: 781.2, ICD10: R26.9 (primary diagnosis) - CONSULT TO NEUROLOGY - CONSULT TO NON-[facility] FACILITY. Physical therapy outpatient. He preferred [facility]. 2. Leg weakness, bilateral - ICD9: 729.89, ICD10: R29.898 - CONSULT TO NEUROLOGY - CONSULT TO NON-[facility] FACILITY 3. Essential hypertension - ICD9: 401.9, ICD10: I10 - Worsening control - Continue current medications - Encouraged sodium restriction, DASH or Mediterranean diet - Recommend regular aerobic exercise - Discussed need for and benefit of weight loss. BMI 29.57 kg/(m^2) Vadim Deras MD documented in this encounter [facility] 09-09-2023 Miscellaneous Notes Patient has been identified by name and date of : Patient phones for refill(s): Requested Prescriptions Pending Prescriptions Disp Refills lisinopril (ZESTRIL) 20 mg tablet 90 tablet Sig: Take 1 tablet by mouth once daily. finasteride (PROSCAR) 5 mg tablet 90 tablet 3 Sig: Take 1 tablet by mouth once daily. doxazosin (CARDURA) 1 mg tablet 90 tablet 3 Sig: Take 1 tablet by mouth once daily. Date of last office visit in primary care: 08/23/2023 Date of next office visit in primary care: 11/21/2023 Patient insurance changed now has to use [facility] pharmacy. Please advise. Thank you. Cary Andre LPN. documented in this encounter [facility] 08-23-2023 History of Present illness Narrative This note was created using LightArrowter. Subjective Deniz Kumar is a 88 year old male. He was discharged from [facility] after rehab for left ankle fracture. This was in the setting of a fall, head injury, IC hemorrhage. He felt strongly he developed muscle aches and weakness from pravastatin. Curiously, he was getting atorvastatin in the sn[facility]. His medications were changed, but he went back to his previous medications from [facility] pravastatin. Review of Systems Constitutional: Positive for activity change. Negative for appetite change, fatigue and unexpected weight change. HENT: Negative. Respiratory: Negative for cough and shortness of breath. Cardiovascular: Positive for leg swelling. Negative for chest pain and palpitations. Gastrointestinal: Negative for constipation and diarrhea. Genitourinary: Negative for difficulty urinating. Musculoskeletal: Positive for gait problem. Skin: Negative for wound. Neurological: Positive for weakness. ACTIVE PROBLEM LIST Diverticulosis of Large Intestine Hyperlipidemia Essential Hypertension Benign Prostatic Hyperplasia With Urinary Obstruction Chronic Nonallergic Rhinitis Thrombocytopenia, Unspecified (Hcc) Erectile Dysfunction Obesity, Class II, Bmi 35-39.9 Urgency of Urination Subdural Hematoma (Hcc) Fall Closed Fracture of Left Ankle Sah (Subarachnoid Hemorrhage) (Formerly [facility]) Social History Tobacco Use Smoking status: Former [...] Types: Marijuana Current Outpatient Medications Medication Sig chlorthalidone (HYGROTON) 25 mg tablet cloNIDine HCl (CATAPRES) 0.1 mg tablet losartan (COZAAR) 100 mg tablet Mirtazapine (REMERON) 7.5 mg tablet potassium chloride (K-TAB) 10 mEq tablet Sennosides 8.6 mg cap AT BEDTIME acetaminophen (TYLENOL) 500 mg tablet 2 tablets by ORAL/FEEDING TUBE route every 6 hours. calcium-cholecalciferol, D3, (OSCAL+D 250) 250 mg-3.125 mcg (125 unit) per tablet Take 2 tablets by mouth two times a day. doxazosin (CARDURA) 1 mg tablet Take 1 tablet by mouth once daily. finasteride (PROSCAR) 5 mg tablet Take 1 tablet by mouth once daily. Lactobacillus acidophilus (PROBIOTIC) 10 billion cell cap Take 1 capsule by mouth. Melatonin 5 mg cap Take 5 mg by mouth daily at bedtime. MULTIVITAMIN TAB Take one(1) tablet daily. atorvastatin (LIPITOR) 20 mg tablet (Patient not taking: Reported on 08/23/2023) No current facility-administered medications for this visit. Objective BP 120/82 (BP Site: Left Arm, BP Position: Sitting, BP Cuff Size: Large Adult) Pulse 69 Temp (!) 35.8 C (96.5 F) (Temporal) Resp 16 Wt 98 kg (216 lb) SpO2 97% BMI 29.29 kg/m Physical Exam Constitutional: General: He is not in acute distress. HENT: Head: Normocephalic and atraumatic. Eyes: Extraocular Movements: Extraocular movements intact. Cardiovascular: Rate and Rhythm: Normal rate and regular rhythm. Heart sounds: No gallop. Pulmonary: Effort: No respiratory distress. Breath sounds: No wheezing or rales. Abdominal: General: There is no distension. Tenderness: There is no abdominal tenderness. Musculoskeletal: Right lower le+ Pitting Edema present. Left lower le+ Pitting Edema present. Neurological: General: No focal deficit present. Mental Status: He is alert. Mental status is at baseline. Motor: Weakness present. Gait: Gait abnormal. Depression Screening PHQ-2 Score MALENA-2 Total Score 08/23/2023 0 - Depression screening tool completed and reviewed. Based on score and interview, patient is not at risk for depression. Screening tool discussed with patient, and I recommended no further intervention at this time. Component Latest Ref Rng & Units 08/16/2023 Protein, Total 6.3 - 8.0 g/dL 5.9 (L) Albumin 3.9 - 4.9 g/dL 3.5 (L) Calcium 8.5 - 10.2 mg/dL 9.1 Bilirubin, Total 0.2 - 1.3 mg/dL 0.6 Alkaline Phosphatase 38 - 113 U/L 77 AST 14 - 40 U/L 18 ALT 10 - 54 U/L 19 Glucose 74 - 99 mg/dL 89 BUN 9 - 24 mg/dL 34 (H) Creatinine 0.73 - 1.22 mg/dL 0.90 Sodium 136 - 144 mmol/L 139 Potassium 3.7 - 5.1 mmol/L 4.4 Chloride 97 - 105 mmol/L 105 CO2 22 - 30 mmol/L 27 Anion Gap 9 - 18 mmol/L 7 (L) eGFR >=60 mL/min/1.73m 83 Cholesterol, Total <200 mg/dL 148 Triglyceride <150 mg/dL 90 HDL Cholesterol >39 mg/dL 47 Non HDL Cholesterol <130 mg/dL 101 Fasting Time hrs 11 VLDL Cholesterol <30 mg/dL 18 TC:HDL Ratio <5.10 3.15 LDL Cholesterol <100 mg/dL 83 LDL:HDL Ratio <2.54 1.77 Assessment and Plan 1. Essential hypertension - ICD9: 401.9, ICD10: I10 (primary diagnosis) - Controlled - LISINOPRIL 20 MG TABLET 2. History of TIA (transient ischemic attack) - ICD9: V12.54, ICD10: Z86.73 - ASPIRIN 81 MG TABLET,DELAYED RELEASE 3. Gait abnormality - ICD9: 781.2, ICD10: R26.9 He declined PT. Continue HEP. 4. Hyperlipidemia, unspecified hyperlipidemia type - ICD9: 272.4, ICD10: E78.5 - Controlled - This is probably impacted by atorvastatin. STATIN allergy enacted. Patient indicated understanding and willingness to follow recommendations. - COMP METABOLIC PANEL - LIPID PANEL BASIC 5. Thrombocytopenia, unspecified (HCC) - ICD9: 287.5, ICD10: D69.6 Chronic. 6. Hypoalbuminemia - ICD9: 273.8, ICD10: E88.09 Increase dietary protein, from plant and animal sources. Current Outpatient Medications Medication Sig calcium-cholecalciferol, D3, (OSCAL+D 250) 250 mg-3.125 mcg (125 unit) per tablet Take 2 tablets by mouth two times a day. doxazosin (CARDURA) 1 mg tablet Take 1 tablet by mouth once daily. finasteride (PROSCAR) 5 mg tablet Take 1 tablet by mouth once daily. MULTIVITAMIN TAB Take one(1) tablet daily. melatonin 3 mg tablet Take 1 tablet by mouth daily at bedtime. lisinopril (ZESTRIL) 20 mg tablet Take 1 tablet by mouth once daily. aspirin, enteric coated (ASPIRIN, ENTERIC COATED) 81 mg EC tablet Take 1 tablet by mouth once daily. Dietary Supplement cap Take 2 capsules by mouth once daily. SUPER BETA PROSTATE. No current facility-administered medications for this visit. He will call if refills needed. Vadim Deras MD documented in this encounter [facility] 08-15-2023 Miscellaneous Notes I called Ann-Marie @ [facility] back and gave her the verbal ok per Dr. Valdez to continue home PT. There was no answer. But I left the order on her secure VM. Chloe Joyner August 15, 2023 3:19 PM documented in this encounter [facility] 08-13-2023 Miscellaneous Notes Ann-Marie notified of response from provider. Nicole Orellana LPN I can follow. Ann-Marie from [facility] calling patient discharged from [facility] on 08/09/2023 had left ankle fracture and subdural hematoma from fall. Aguila Murry is helping with ankle, asking if PCP would follow and sign orders? Please advise documented in this encounter [facility] 08-06-2023 Note HNO ID: [id number] Author: BONIFACIO VALDEZ MD Service: ? Author Type: Physician Type: Progress Notes Filed: 08/06/2023 13:22 Note Text: Subjective: Patient returns today follow-up in his left ankle surgery. Surgical fixation on 06/23/2023. Overall doing well. Has been walking in his boot. Minimal discomfort. Objective: Examination left lower extremity shows it to be neuro vas tact. Incision healing well. Imaging: Please refer to the radiographic interpretation Assessment: #1 left bimalleolar ankle fracture. Plan: Marco is doing well. We will discontinue his walker boot. Okay to ambulate in regular shoewear. Okay for shower. Orders for physical therapy were written for his facility. He can be weight-bear as tolerated with range of motion and strengthening exercises. I normally would like to see them back in 2 months. After our discussion, they would like to see me back on an as-needed basis. If there is any questions or concerns in the future, I told him to contact the office. Questions answered. [facility] 08-06-2023 History of Present illness Narrative Subjective: Patient returns today follow-up in his left ankle surgery. Surgical fixation on 06/23/2023. Overall doing well. Has been walking in his boot. Minimal discomfort. Objective: Examination left lower extremity shows it to be neuro vas tact. Incision healing well. Imaging: Please refer to the radiographic interpretation Assessment: #1 left bimalleolar ankle fracture. Plan: Marco is doing well. We will discontinue his walker boot. Okay to ambulate in regular shoewear. Okay for shower. Orders for physical therapy were written for his facility. He can be weight-bear as tolerated with range of motion and strengthening exercises. I normally would like to see them back in 2 months. After our discussion, they would like to see me back on an as-needed basis. If there is any questions or concerns in the future, I told him to contact the office. Questions answered. documented in this encounter [facility] 08-02-2023 Note HNO ID: [id number] Author: NICOLÁS JUNIOR MD Service: ? Author Type: Physician Type: Progress Notes Filed: 08/02/2023 14:04 Note Text: NEUROSURGERY FOLLOW UP OFFICE NOTE Dr. Nicolás Junior MD, FACS Date of visit: August Patient Name: Mr.Peter Jericho Kumar Date of : 1935 Current Age: [age] year old Sex: male MRN/E# [id number] Last Office Visit: 07/16/2023 CHIEF COMPLAINT: Patient presents with: Established Patient SUBJECTIVE: The patient presents as a follow-up with imaging (CT B) for evaluation. This is an 88-year-old male with a PMHx TIA, HTN, hypercholesterolemia, thrombocytopenia who was seen for consult at [facility] on 06/21/2023 after a fall while hiking [...] follow-up in [address] head. He was seen in the office on 07/16/2023 and reported that he was doing well. He stated that he was a resident in rehab in [place] and hoped to be discharged to a residential that week. He denied headache, visual changes, speech deficits, seizure activity, motor or sensory deficits. Neurologically he was intact on exam with the exception of gait instability. CT was reviewed and showed near complete resolution of the interhemispheric and tentorial subdural hematoma with slight fullness on the left side of the falx which appears to be residual blood. He was cleared to resume his low-dose aspirin and advised to follow-up in 2 weeks with a repeat CT head prompting his visit today. Since last visit he states he is doing the same. He denies any headaches but feels his speech retrieval is off and his balance. He is working with PT/OT and ST. He presents for image review, evaluation and plan of care. SYMPTOMS: speech deficit and balance PREVIOUS CONSERVATIVE TREATMENTS: Rehab -PT/OT SURGICAL RISK: Smoker: Former Diabetic: No Anticoagulants [...] Current Outpatient Medications Medication Sig Dispense Refill atorvastatin (LIPITOR) 20 mg tablet chlorthalidone (HYGROTON) 25 mg tablet cloNIDine HCl (CATAPRES) 0.1 mg tablet losartan (COZAAR) 100 mg tablet Mirtazapine (REMERON) 7.5 mg tablet potassium chloride (K-TAB) 10 mEq tablet Sennosides 8.6 mg cap AT BEDTIME acetaminophen (TYLENOL) 500 mg tablet 2 tablets by ORAL/FEEDING TUBE route every 6 hours. calcium-cholecalciferol, D3, (OSCAL+D 250) 250 mg-3.125 mcg (125 unit) per tablet Take 2 tablets by mouth two times a day. doxazosin (CARDURA) 1 mg tablet Take 1 [...] discharge and rhinorrhea. Eyes: Negative for discharge. Respirat (more content not included)... [facility] 08-02-2023 History of Present illness Narrative Radiology Service Progress Note PATIENT NAME: Deniz Kumar DATE OF SERVICE: August 02, 2023 TIME: 1:04 PM PATIENT IDENTITY VERIFICATION COMPLETED USING TWO (2) [...] PATIENT RELEVANT IMPLANT DATA REVIEWED: Not Applicable PATIENT PRESENTS WITH AN IMPLANTABLE OR ATTACHED VIBRATOR EQUIPMENT TESTER: No RADIOLOGY DEPARTMENT: CT; Exam(s) Completed: Brain PERIPHERAL IV DATA: Not applicable SIGNED BY: RT Karol(Taryn) August 02, 2023 1:04 PM documented in this encounter [facility] 08-02-2023 Note HNO ID: [id number] Author: MAIRA ALEXANDER RT(R) Service: Radiology Author Type: Technologist Type: Progress Notes Filed: 08/02/2023 13:04 Note Text: Radiology Service Progress Note PATIENT NAME: Deniz Kumar DATE OF SERVICE: August 02, 2023 TIME: 1:04 PM PATIENT IDENTITY VERIFICATION COMPLETED USING TWO (2) [...] PATIENT RELEVANT IMPLANT DATA REVIEWED: Not Applicable PATIENT PRESENTS WITH AN IMPLANTABLE OR ATTACHED VIBRATOR EQUIPMENT TESTER: No RADIOLOGY DEPARTMENT: CT; Exam(s) Completed: Brain PERIPHERAL IV DATA: Not applicable SIGNED BY: RT Karol(Taryn) August 02, 2023 1:04 PM [facility] 07-16-2023 Discharge summary Note Date/Time July 16, 2023 8:10pm [facility] Medical Records Department [address] [place] [address] Discharge Summary 07/16/232007 MR#: [id number] Acct: [id number] Name: DENIZ KUMAR Rep #:[id number] : 1935 88 From: Preston Camilo MD PCP: Dr. Vadim Deras MD Status:A DM IN Location: [place] [id number] [place] [address] Date of Admission: 06/27/23 Primary Care Physician: Dr. Vadim Deras MD Reason For Visit: LEFT SUBDURAL HEMATOMA, LEFT ANKLE ORIF Diagnosis Discharge Diagnosis (1) Debility: Status: Acute Code(s): R53.81 - Other malaise (2) Fall: Status: Inactive Code(s): W19.XXXA - Unspecified fall, initial encounter Qualifiers: Encounter type: subsequent encounter Qualified Code(s): W19.XXXD - Unspecified fall, subsequent encounter (3) Traumatic intracranial subdural hematoma: Status: Inactive Code(s): S06.5XAA - Traumatic subdural hemorrhage with loss of consciousness status unknown, initial encounter Qualifiers: Encounter type: subsequent encounter Loss of consciousness presence/duration: without LOC Qualified Code(s): S06.5X0D - Traumatic subdural hemorrhage without loss of consciousness, subsequent encounter (4) Bimalleolar fracture of left ankle: Status: Acute Code(s): S82.842A - Displaced bimalleolar fracture of left lower leg, initial encounter for closed fracture Qualifiers: Encounter type: subsequent encounter Fracture type: closed (5) History of open reduction and internal fixation (ORIF) procedure: Status: Acute Code(s): Z98.890 - Other specified postprocedural states (6) Thrombocytopenia: Status: Acute Code(s): D69.6 - Thrombocytopenia, unspecified (7) Overactive bladder: Status: Acute Code(s): N32.81 - Overactive bladder (8) BPH (benign prostatic hyperplasia): Status: Acute Code(s): N40.0 - Benign prostatic hyperplasia without lower urinary tract symptoms Qualifiers: Lower urinary tract symptom presence: symptoms absent Qualified Code(s): N40.0 - Benign prostatic hyperplasia without lower urinary tract symptoms (9) Hypercholesterolemia: Status: Acute Code(s): E78.00 - Pure hypercholesterolemia, unspecified (10) Hypertension: Status: Chronic Code(s): I10 - Essential (primary) hypertension Qualifiers: Hypertension type: primary hypertension Qualified Code(s): I10 - Essential (primary) hypertension (11) Adverse reaction to drug that primarily affects musculoskeletal system: Status: Acute Code(s): T48.205A - Adverse effect of unspecified drugs acting on muscles, initial encounter Medications at Discharge Home Medications doxazosin 1 mg tablet 1 mg PO DAILY BP 06/21/23 finasteride 5 mg tablet 5 mg PO DAILY Bladder 06/21/23 melatonin 3 mg capsule 3 mg PO DAILY Sleep 06/21/23 Lactobacillus acidophilus 250 million cell capsule (Probiotic Acidophilus) 500 mmu cells PO DAILY Probiotic 06/27/23 acetaminophen 500 mg capsule 1,000 mg PO Q6H PRN pain 06/27/23 sennosides 8.6 mg capsule (senna) 17.2 mg PO QHS Constipation 06/27/23 calcium carbonate 500 mg-vitamin D3 5 mcg (200 unit) tablet (Oyster Shell Calcium-Vitamin D3) 0.5 tab PO BIDCM #0 tabs 07/16/23 chlorthalidone 50 mg tablet 25 mg (1/2 x 50 mg) PO DAILY #0 tabs 07/16/23 clonidine HCl 0.1 mg tablet 0.1 mg PO Q6H PRN PRN SYS>165 DIAST>85 #0 tabs 07/16/23 losartan 100 mg tablet 100 mg PO DAILY #0 tabs 07/16/23 menthol 2 % topical gel (Blue Gel) 1 applic topical TID PRN PRN Pain Score 1-10 #0 grams 07/16/23 multivitamin 1 tab PO BREAKFAST #0 tabs 07/16/23 polyethylene glycol 3350 17 gram oral powder packet 17 g PO DAILY #0 ea 07/16/23 Hospital Course Operations None Procedures None Summary of Care Provided Minutes Spent on Discharge: 35 Hospital Course: 88 year old male with below past medical history hospitalized for SDH, left ankle fracture s/p ORIF 06/23/[address] Valdez, admitted to TCU with debility, here for rehabilitation, strengthening, prior to disposition determination. Discharge 07/18/2023, [facility], intermediate, part B therapies. Physical Exam Const alert General Appearance: cooperative HEENT normocephalic Eyes PERRL and EOMs intact bilaterally Neck supple, no JVD and no carotid bruits Resp normal respiratory effort, normal air movement and clear to auscultation bilaterally Cardio regular rate and regular rhythm GI normal to inspection, nondistended, normoactive bowel sounds, non-tender and non-distended Extremity normal capillary refill General Extremity: Negative for edema Skin no rashes or lesions noted General Skin Exam: no breakdown Psych affect normal Appearance: appropriate Weight / BMI Weight Weight: 96.57 kg Body Mass Index (BMI) 28.8 ABG / Lab / Microbiology Data 07/15/23 05:18 07/15/23 05:18 Microbiology: Microbiology 07/16/23 04:50 Nasal Secretion SARS-CoV-2 Antigen (Rapid) - Final 07/11/23 05:05 Nasal Secretion SARS-CoV-2 Antigen (Rapid) - Final 07/08/23 06:40 Nasal Secretion SARS-CoV-2 Antigen (Rapid) - Final 07/03/23 10:00 Urine, Catheterized Urine Culture - Final Culture exhibits no growth. 07/05/23 04:59 Nasal Secretion SARS-CoV-2 Antigen (Rapid) - Final 07/02/23 05:50 Nasal Secretion SARS-CoV-2 Antigen (Rapid) - Final 06/28/23 05:25 Nasal Secretion SARS-CoV-2 Antigen (Rapid) - Final D/C Instructions Discharge Diet: No restrictions Discharge Activity: Return to Normal Activity, May Shower and Use Walker Weight Bearing Status: Partial weight bearing (Left lower extremity.) Call your doctor if you observe: Fever of 101 or Higher, Inability to urinate, Inability to have a bowel movement, Shortness of breath, Dizziness, Fainting spells, Swelling in the ankles, Chest pain and Uncontrolled pain Additional Instructions: Discharge 07/18/2023, [facility], intermediate, part B therapies. Please Follow Up With: Bonifacio Valdez MD When: As scheduled. Meaningful Use Info Meaningful Use Diagnoses (Choose all that apply): None applicable Discharge Plan Admission Admit Date/Time: 06/27/23 18:19 Primary Reason for Your Visit: Debility. Attending Provider: Mirian Farris Primary Care Provider: Vadim Deras Instructions Additional Instructions / Restrictions: Discharge 07/18/2023, [facility], intermediate, part B therapies. Discharge Orders/Prescriptions Prescriptions: New multivitamin Tablet 1 tab PO BREAKFAST Qty: 0 0RF clonidine HCl 0.1 mg Tablet 0.1 mg PO Q6H PRN PRN (Reason: SYS>165 DIAST>85) Qty: 0 0RF polyethylene glycol 3350 17 gram Powder In Packet 17 g PO DAILY Qty: 0 0RF chlorthalidone 50 mg Tablet 25 mg PO DAILY Qty: 0 0RF losartan 100 mg Tablet 100 mg PO DAILY Qty: 0 0RF menthol [Blue Gel] 2 % Gel 1 applic topical TID PRN PRN (Reason: Pain Score 1-10) Qty: 0 0RF calcium carbonate-vitamin D3 [Oyster Shell Calcium-Vit D3] 500 mg-5 mcg (200 unit) Tablet 0.5 tab PO BIDCM Qty: 0 0RF Continued doxazosin 1 mg tablet 1 mg PO DAILY finasteride 5 mg tablet 5 mg PO DAILY melatonin 3 mg capsule 3 mg PO DAILY acetaminophen 500 mg capsule 1,000 mg PO Q6H PRN (Reason: pain) senna 8.6 mg capsule 17.2 mg PO QHS Probiotic Acidophilus 250 million cell capsule 500 mmu cells PO DAILY Discontinued lisinopril 20 mg tablet 20 mg PO DAILY pravastatin 20 mg tablet 20 mg PO DAILY aspirin 81 mg tablet,chewable 81 mg PO BID Hold Instructions: MD Ordered levetiracetam 500 mg tablet 500 mg PO BID Referrals / Follow Up: Bonifacio Valdez [Other] (Follow-up 4 weeks from last appt. ) Nicolás Junior MD [Other] - 08/02/23 1:00 pm Vadim Deras MD [Primary Care Provider] - Disposition Disposition (needs filled in before D/C Order can be placed): NonSkilled NH/Intermed Care 07/16/232016 <Electronically signed by Preston Camilo MD> Cosigner Signature (if applicable): CC: Dr. Preston Camilo MD; Dr. Vadim Deras MD~ Signed [facility] Work Phone: 1(228) 119-275401-16-2024 Discharge summary Author [facility] July 16, 2023 8:17pm Note Date/Time July 16, 2023 8 :17pm [facility] Medical Records Department [address] [place] [address] Transfer to [facility] MR#: [id number] Acct: [id number] Name: DENIZ KUMAR Rep #:[id number] : 1935 88 From: Preston Camilo MD PCP: Dr. Vadim Deras MD Status:A DM IN Certification of patient admission REQUIRED AT TIME OF ADMISSION. I CERTIFY THAT POST-HOSPITAL ECF SERVICES ARE REQUIRED TO BE GIVEN ON AN IN-PATIENT BASIS BECAUSE OF THE ABOVE NAMED PATIENT'S NEED FOR LONGTERM CARE ON A CONTINUING BASIS FOR THE CONDITION(S) FOR WHICH HE/SHE WAS RECEIVING IN-PATIENT HOSPITAL SERVICES PRIOR TO HIS/HER TRANSFER TO THE [facility]. 07/16/232016<Electronically signed by Preston Camilo MD> Diet Diet Order/Speech Therapy: 06/28/23 06:09 Diet: Regular - General Food consistency:: Regular Liquid Consistency:: Regular/Thin Is pt able to select menu?: Yes Routine Orders/Code Status Code Status: Full Code Wound(s) Left ankle: Wound Type: Surgical Incision Dressing Change: surgical dressing Therapies Extremity Affected:: Left Lower Physical Therapy: Eval and Treat Occupational Therapy: Eval and Treat Problem/Diagnosis (1) Debility: Status: Acute Code(s): R53.81 - Other malaise (2) Fall: Status: Inactive Code(s): W19.XXXA - Unspecified fall, initial encounter (3) Traumatic intracranial subdural hematoma: Status: Inactive Code(s): S06.5XAA - Traumatic subdural hemorrhage with loss of consciousness status unknown, initial encounter (4) Bimalleolar fracture of left ankle: Status: Acute Code(s): S82.842A - Displaced bimalleolar fracture of left lower leg, initial encounter for closed fracture (5) History of open reduction and internal fixation (ORIF) procedure: Status: Acute Code(s): Z98.890 - Other specified postprocedural states Comment: Bimalleolar left ankle fracture on 06/23/2023. (6) Thrombocytopenia: Status: Acute Code(s): D69.6 - Thrombocytopenia, unspecified (7) Overactive bladder: Status: Acute Code(s): N32.81 - Overactive bladder (8) BPH (benign prostatic hyperplasia): Status: Acute Code(s): N40.0 - Benign prostatic hyperplasia without lower urinary tract symptoms (9) Hypercholesterolemia: Status: Acute Code(s): E78.00 - Pure hypercholesterolemia, unspecified (10) Hypertension: Status: Chronic Code(s): I10 - Essential (primary) hypertension (11) Adverse reaction to drug that primarily affects musculoskeletal system: Status: Acute Code(s): T48.205A - Adverse effect of unspecified drugs acting on muscles, initial encounter Comment: Bilateral anterior thigh weakness/myalgia with pravastatin Allergies/Procedures Done in Hospital Allergies salicylic acid Allergy (Verified 10/17/22 13:45) Swelling clearasil Procedures: None Type of Care/Length of Stay Estimated LOS: More Than 30 Days Type of Care Needed: Intermediate Rehab Potential: Good Prognosis: Good Additional Orders/Day of Discharge Additional Orders: part B therapies Day of Discharge: 07/18/23 Dietary and Speech Recommendations Dietitian Recommendations/Changes: Continue liberal regular diet per res preference Follow Up Care Please Follow Up With: Bonifacio Valdez MD When: 10 days Please Follow Up With: Nicolás Junior MD When: 2 weeks Please Follow Up With: Nicolás Junior MD Discharge Plan Admission Admit Date/Time: 06/27/23 18:19 Primary Reason for Your Visit: Debility. Attending Provider: Mirian Farris Primary Care Provider: Vadim Deras Instructions Additional Instructions / Restrictions: Discharge 07/18/2023, [facility], intermediate, part B therapies. Discharge Orders/Prescriptions Prescriptions: New multivitamin Tablet 1 tab PO BREAKFAST Qty: 0 0RF clonidine HCl 0.1 mg Tablet 0.1 mg PO Q6H PRN PRN (Reason: SYS>165 DIAST>85) Qty: 0 0RF polyethylene glycol 3350 17 gram Powder In Packet 17 g PO DAILY Qty: 0 0RF chlorthalidone 50 mg Tablet 25 mg PO DAILY Qty: 0 0RF losartan 100 mg Tablet 100 mg PO DAILY Qty: 0 0RF menthol [Blue Gel] 2 % Gel 1 applic topical TID PRN PRN (Reason: Pain Score 1-10) Qty: 0 0RF calcium carbonate-vitamin D3 [Oyster Shell Calcium-Vit D3] 500 mg-5 mcg (200 unit) Tablet 0.5 tab PO BIDCM Qty: 0 0RF Continued doxazosin 1 mg tablet 1 mg PO DAILY finasteride 5 mg tablet 5 mg PO DAILY melatonin 3 mg capsule 3 mg PO DAILY acetaminophen 500 mg capsule 1,000 mg PO Q6H PRN (Reason: pain) senna 8.6 mg capsule 17.2 mg PO QHS Probiotic Acidophilus 250 million cell capsule 500 mmu cells PO DAILY Discontinued lisinopril 20 mg tablet 20 mg PO DAILY pravastatin 20 mg tablet 20 mg PO DAILY aspirin 81 mg tablet,chewable 81 mg PO BID Hold Instructions: Ordered levetiracetam 500 mg tablet 500 mg PO BID Referrals / Follow Up: Bonifacio Valdez [Other] (Follow-up 4 weeks from last appt. ) Nicolás Junior MD [Other] - 08/02/23 1:00 pm Vadim Deras MD [Primary Care Provider] - Disposition Disposition (needs filled in before D/C Order can be placed): NonSkilled NH/Intermed Care (2) Fall Qualifiers: Encounter type: subsequent encounter Qualified Code(s): W19.XXXD - Unspecified fall, subsequent encounter (3) Traumatic intracranial subdural hematoma Qualifiers: Encounter type: subsequent encounter Loss of consciousness presence/duration:without LOC Qualified Code(s): S06.5X0D - Traumatic subdural hemorrhage withoutloss of consciousness, subsequent encounter (4) Bimalleolar fracture of left ankle Qualifiers: Encounter type: subsequent encounter Fracture type: closed (8) BPH (benign prostatic hyperplasia) Qualifiers: Lower urinary tract symptom presence: symptoms absent Qualified Code(s): N40.0 - Benign prostatic hyperplasia without lower urinary tract symptoms (10) Hypertension Qualifiers: Hypertension type: primary hypertension Qualified Code(s): I10 - Essential (primary) hypertension 07/16/232016 <Electronically signed by Preston Camilo MD> Cosigner Signature (if applicable): CC: Dr. Vadim Deras MD ~ [facility] Work Phone: 1(475) 122-478501-16-2024 NoteHNO ID: [id number] Author: NICOLÁS JUNIOR MD Service: ? Author Type: Physician Type: Progress Notes Filed: 07/16/2023 11:16 Note Text: NEUROSURGERY FOLLOW UP OFFICE NOTE Dr. Nicolás Junior MD, FACS Date of visit: July 16, 2023 Patient Name: Mr.Peter Jericho Kumar Date of : 1935 Current Age: [age] year old Sex: male MRN/E# [id number] Last Office Visit: Hospital follow-up CHIEF COMPLAINT: Patient presents with: Established Patient SUBJECTIVE: The patient presents as a hospital follow-up with imaging (CT B) for evaluation. This is an 88-year-old male with a PMHx TIA, HTN, hypercholesterolemia, thrombocytopenia who was seen for consult at [facility] on 06/21/2023 after a fall while hiking [...] well. He is currently in rehab in [place] and hopes to be discharged to a residential this week. He denies headache, visual changes, [...] Negative for dizziness, seizure (more content not included)...[facility]01-16-2024 NoteHNO ID: [id number] Author: MAIRA ALEXANDER RT(R) Service: Radiology Author Type: Technologist Type: [...] BY: RT Karol(R) July 16, 2023 10:14 [facility]01-09-2024 NoteHNO ID: [id number] Author: BONIFACIO VALDEZ MD Service: ? Author Type: Physician [...] encounter, he will contact the office. Questions answered.[facility]12-29-2023 History and physical note Author Mirian Farris [facility] June 28, 2023 5:06pm Note Date/Time June 28, 2023 12:04pm [facility] Medical Records Department [address] [place] [address] History & Physical Exam 06/28/23 1159 MR#: [id number] Acct: [id number] Name: DENIZ KUMAR Rep #:[id number] : 1935 88 From: Mirian Farris DO PCP: Dr. Vadim Deras MD Status:A DM IN Location: [facility] TCU19-1 HPI - General General Date of Admission: 06/27/23 Date of Service: 06/28/23 Chief Complaint: Debility due to a fall with fracture of L ankle and a SDH HPI Narrative DENIZ KUMAR, is a 88 YO M with a PMH of HLD, BPH with urinary obstruction, chronic nonallergic rhinitis, diverticulosis, erectile dysfunction, overactive bladder and TIA who fell while hiking. He hit his head and W/U in the ED showeda L ankle fracture and a SDH. He was transferred to [facility] because of the head bleed. He had been taking ASA 81 mg BID. He was given DDAVP to to reverse the ASA. He tells me that he was started on Pravastatin about 6 months ago and sincethen he has been having weakness and soreness in the BL anterior thighs. He told his doctor this and the dose was cut down and the sx improved. When he next had his cholesterol checked it had increased and the dose was increased. The weakness and soreness recurred. He thought maybe he needed to get more exercise so he started walking at [facility]. He has fallen twice sincestarting this.....usually at the end of his walk. He tells me that his legs just gave out. He non longer wants to take Pravastatin. He required no surgical intervention at [facility]. He was placed on Keppra for 1 week for seizure prophylaxis. He had an open reduction internal fixation of a left bimalleolar ankle fracture on 06/23/[address] Jiménez. the post operative course was unremarkable. Therapy recommended [facility] for strengthening and gait training and on 06/27/23 he was transferred to theTransitional Care Unit at [facility]. Tank is NWB on the LLE and has a walking boot on the LLE. Significant lab at [facility] included mild thrombocytopenia of undeterminedetiology. [facility] Medical History (Updated 06/28/23 @ 16:[address] Mirian Farris DO) BPH (benign prostatic hyperplasia) Diverticulosis Hypercholesterolemia Hypertension Nonallergic rhinitis TIA (transient ischemic attack) Home Medications aspirin 81 mg chewable tablet 81 mg PO BID Heart health 06/21/23 [History Last Taken 06/21/23] doxazosin 1 mg tablet 1 mg PO DAILY BP 06/21/23 [History Last Taken 06/20/23] finasteride 5 mg tablet 5 mg PO DAILY Bladder 06/21/23 [History Last Taken 06/21/23] lisinopril 20 mg tablet 20 mg PO DAILY BP 06/21/23 [History Last Taken 06/21/23] melatonin 3 mg capsule 3 mg PO DAILY Sleep 06/21/23 [History Last Taken 06/20/23] pravastatin 20 mg tablet 20 mg PO DAILY Cholestrol 06/21/23 [History Last Taken 06/20/23] Lactobacillus acidophilus 250 million cell capsule (Probiotic Acidophilus) 500 mmu cells PO DAILY Probiotic 06/27/23 [History Last Taken Unknown] acetaminophen 500 mg capsule 1,000 mg PO Q6H PRN pain 06/27/23 [History Last Taken Unknown] levetiracetam 500 mg tablet 500 mg PO BID Seizure precaution 06/27/23 [History Last Taken 06/27/23] sennosides 8.6 mg capsule (senna) 17.2 mg PO QHS Constipation 06/27/23 [History Last Taken Unknown] Allergy/AdvReac Type Severity Reaction Status Date / Time salicylic acid Allergy Swelling Verified 10/17/22 13:45 Family History (Updated 06/28/23 @ 16:[address] Mirian Farris DO) Father Cancer Prostate cancer Mother Cancer Liver cancer Sister Hypertension Hyperlipidemia Surgical History (Updated 06/28/23 @ 16:[address] Mirian Farris DO) History of open reduction and internal fixation (ORIF) procedure Social History (Updated 06/28/23 @ 16:[address] Mirian Farris DO) household members: none housing: other details: Mobile home pets and animals: Yes (Dog) Smoking Status: Former smoker pack-years: 3 alcohol intake: current alcohol intake frequency: a few times a month Alcohol type: beer details: 1 beer a week. substance use type: marijuana and other details: Has used marijuana in the pastbut not currently. ROS Constitutional Constitutional: Reports weakness; Denies anorexia, change in weight, chills, fatigue, fever(s) or night sweats Eyes Eyes: Denies blurry vision, change in vision, eye pain or loss of vision ENT HEENT: Reports dry mouth and nasal congestion; Denies abnormal hearing, dysphagia, headache(s), hearing loss or sore throat Cardiovascular Cardiovascular: Denies chest pain, dyspnea on exertion, edema, lightheadedness, orthopnea, palpitations, paroxysmal nocturnal dyspnea or syncope Respiratory/Chest Respiratory/Chest: Denies cough, dyspnea, shortness of breath at rest, shortnessof breath with exertion or wheezing Gastrointestinal Gastrointestinal: Denies abdominal pain, constipation, diarrhea, dyspepsia, hematemesis, hematochezia, nausea or vomiting Genitourinary Genitourinary: Reports nocturia; Denies dysuria, hematuria, urinary frequency, urinary hesitancy, urinary incontinence or urinary urgency Musculoskeletal Musculoskeletal: Denies back pain, joint pain, joint swelling, neck pain, numbness or radiating pain into limb Integumentary Integumentary: Reports dry skin and other Details: Incision left ankle ; Denies jaundice or rash Neurologic Neurologic: Reports focal weakness; Denies confusion, disequilibrium, dizziness,headache(s), paresthesias, seizures or tremor(s) Psychiatric Psychiatric: Denies anxiety, depression, homicidal ideation or suicidal ideation Endocrine Endocrinology: Denies change in body appearance, polydipsia or polyuria Hematologic/Lymphatic Hematologic/Lymphatic: Denies easy bleeding, easy bruising or lymphadenopathy Allergic/Immunologic Allergic/Immunologic: Reports rhinitis; Denies eczemia or asthma Vital Signs Vital Signs Vital Signs: 06/27/23 18:51 06/27/23 18:51 06/28/23 06:00 Temperature 97.6 F L Temperature Source Temporal Pulse Rate 66 Pulse Rate [Lying] 54 L Pulse Rate [Sitting (for 1 minute prior to obtaining)] 61 Pulse Rate [Standing (for 1 minute prior to obtaining)] 82 Pulse Rhythm Regular Pulse Strength Normal (2+) Respiratory Rate 20 H 16 Respiratory Effort Normal Non-Labored Respiratory Depth Normal Respiratory Pattern Normal Blood Pressure 160/98 H Blood Pressure [Lying] 162/89 H Blood Pressure [Sitting (for 1 minute prior to obtaining)] 162/98 H Blood Pressure [Standing (for 1 minute prior to obtaining)] 156/97 H Blood Pressure Mean 118 Blood Pressure Mean [Lying] 113 Blood Pressure Mean [Sitting (for 1 minute prior to obtaining)] 119 Blood Pressure Mean [Standing (for 1 minute prior to obtaining)] 116 Blood Pressure Source Monitor Blood Pressure Position Semi-Fowlers Blood Pressure Location Left Arm Pulse Ox 93 Oxygen Delivery Method Room Air Room Air 06/28/23 06:43 06/28/23 08:35 Temperature 97.9 F Temperature Source Temporal Pulse Rate 60 81 Pulse Rate [Lying] Pulse Rate [Sitting (for 1 minute prior to obtaining)] Pulse Rate [Standing (for 1 minute prior to obtaining)] Pulse Rhythm Pulse Strength Respiratory Rate 16 Respiratory Effort Respiratory Depth Respiratory Pattern Blood Pressure 152/87 H 144/112 H Blood Pressure [Lying] Blood Pressure [Sitting (for 1 minute prior to obtaining)] Blood Pressure [Standing (for 1 minute prior to obtaining)] Blood Pressure Mean 108 122 Blood Pressure Mean [Lying] Blood Pressure Mean [Sitting (for 1 minute prior to obtaining)] Blood Pressure Mean [Standing (for 1 minute prior to obtaining)] Blood Pressure Source Monitor Monitor Blood Pressure Position Sitting Sitting Blood Pressure Location Right Arm Left Arm Pulse Ox 95 Oxygen Delivery Method Room Air Weight Weight: 208 lb 12.8 oz Body Mass Index (BMI) 28.3 Physical Exam Const alert, oriented x3, no apparent distress and healthy appearing Constitutional Narrative: He is sitting in the recliner and appears comfortable. General Appearance: cooperative and well kempt HEENT normocephalic and head/scalp atraumatic HEENT Narrative: MM are dry Eyes conjunctivae normal and no scleral icterus Eyes Narrative: No visual field cuts General Eye: normal appearance of both eyes; Negative for exophthalmos or proptosis Neck full ROM, No nuchal rigidity, No nodes and no carotid bruits General: trachea midline Chest Chest: symmetrical chest wall rise Resp normal respiratory effort and normal air movement Resp Narrative: He initially had bibasilar coarse crackles but after several deep breaths these resolved. No tachypnea and no accessory muscle use. Effort and Inspection: able to speak in complete sentences Cardio regular rate, regular rhythm, S1 normal heart sound, S2 normal heart sound, no murmurs, no rub and no gallops GI normal to inspection, nondistended, normoactive bowel sounds, soft to palpation and non-tender GI Narrative: No guarding with palpation. No suprapubic pain. no CVA tenderness Back/Spine no CVA tenderness Extremity no calf tenderness Extremity Narrative: The left lower extremity is in a boot from the knee to the base of the toes. Hedenies any pain at the present time. Skin General Skin Exam: no breakdown Rashes: no rashes Hair: male pattern alopecia Neuro oriented x3, CN's II-XII intact bilaterally, moves all extremities, no focal motor deficits and no sensory deficits noted Psych mental status grossly normal, thought process normal, cooperative, affect normaland speech normal Appearance: grossly normal, appropriate and well kempt Attitude: calm Activity / Motor Behavior: appropriate eye contact Results Lab / Micro Data 06/28/23 05:31 06/28/23 05:31 Labs: Laboratory Results - last 24 hr 06/28/23 05:31: WBC 4.5, RBC 4.65, Hgb 14.0, Hct 41.7, MCV 89.7, MCH 30.1, MCHC 33.6, RDW Std Deviation 42.3, RDW Coeff of Bayron 12.9, Plt Count 129 L, MPV 10.7, Immature Gran % (Auto) 1.600 H, Neut % (Auto) 49.8, Lymph % (Auto) 27.6, [place] % (Auto) 19.7 H, Eos % (Auto) 1.1, Baso % (Auto) 0.2, Absolute Neuts (auto) 2.2, Absolute Lymphs (auto) 1.23, Nucleated RBC % 0, Sodium 140, Potassium 3.6, Chloride 108 H, Carbon Dioxide 29.0, Anion Gap 3 L, BUN 21 H, Creatinine 0.91, Estim Creat Clear Calc 62.77, Est GFR (MDRD) Af Amer 102, Est GFR (MDRD) Non-Af 84, BUN/Creatinine Ratio 23.2 H, Glucose 91, Calcium 8.7 Micro: Microbiology 06/28/23 05:25 Nasal Secretion SARS-CoV-2 Antigen (Rapid) - Final Assessment & Plan Assessment/Plan (1) Debility: (2) Fall: QUALIFIERS: Encounter type: subsequent encounter Qualified Code(s): W19.XXXD - Unspecified fall, subsequent encounter (3) Traumatic intracranial subdural hematoma: QUALIFIERS: Encounter type: subsequent encounter Loss of consciousness presence/duration: without LOC Qualified Code(s): S06.5X0D - Traumatic subdural hemorrhage without loss of consciousness, subsequent encounter (4) Bimalleolar fracture of left ankle: QUALIFIERS: Encounter type: subsequent encounter Fracture type: closed (5) History of open reduction and internal fixation (ORIF) procedure: (6) Thrombocytopenia: (7) Overactive bladder: (8) BPH (benign prostatic hyperplasia): QUALIFIERS: Lower urinary tract symptom presence: symptoms absent Qualified Code(s): N40.0 - Benign prostatic hyperplasia without lower urinary tract symptoms (9) Hypercholesterolemia: (10) Hypertension: QUALIFIERS: Hypertension type: primary hypertension Qualified Code(s): I10 - Essential (primary) hypertension (11) Adverse reaction to drug that primarily affects musculoskeletal system: PLAN: Plan PLAN PT for gait stability OT for ADL's ST for evaluation - for slow speech and slow processing of information post SDH/head trauma Analgesics as needed Bowel protocol Fall precautions Assess for Anxiety/Depression GI prophylaxis-not needed at this time DVT prophylaxis with HERBERTH fowler -he was not on anticoagulation when he came to us and the aspirin was stopped at [facility] for surgery and because of thrombocytopenia. Follow up with Dr. Deras and neurosurgery and podiatry. Following DC from [facility] All a.m. lab was personally reviewed. Discontinue pravastatin. Pt may be better able to tolerate rosuvastatin than Pravastatin. Would start 5 mg daily. It is not on the hospital formulary so will defer changing statin to Dr. Deras. Obtain Dr. Beck's labs for the past year.....is the thrombocytopenia new? Also obtain a problem list and a med list. Charges/Coding Visit Charges Inpatient E&M: 42407 SNF Init L2 06/28/23 1706 <Electronically signed by Mirian Farris DO> Cosigner Signature (if applicable): CC: Dr. Mirian Farris DO; Dr. Vadim Deras MD~ Signed [facility] Work Phone: 1(817) 558-978612-29-2023 Progress note Author Demetria Chamberlain [facility] June 28, 2023 11:12am Note Date/Time June 28, 2023 10:51am [facility] Medical Records Department [address] [place] [address] Progress Note - Pharmacy 06/28/23 1047 MR#: [id number] Acct: [id number] Name: DENIZ KUMAR Rep #:[id number] : 1935 88 From: Demetria Chamberlain PCP: Dr. Vadim Deras MD Status:A DM IN Location: [place] [id number] TCU RX Drug Regimen Review Subjective/Objective Subjective/Objective: Subjective: 88 YOM admitted to TCU on 06/27/23 s/p hospitalization from an outside facility. The patient presented to [facility] ED on 06/21/23 secondary to a fall where he hit his head, resulting in a bleed. Patient was transferred at that time to an outside facility. Patient admitted to TCU for strengthening and debility prior to discharge where he resides at home. Objective: Allergies salicylic acid Allergy (Verified 10/17/22 13:45) Swelling clearasil Current Medications Generic Name Dose Route Start Last Admin Trade Name Freq PRN Reason Stop Dose Admin Acetaminophen 1,000 mg 06/27/23 18:39 Acetaminophen 500 Mg Tablet PO Q6H PRN Pain Score 1-10 Calcium/Vitamin D 0.5 tablet 06/28/23 08:00 06/28/23 08:29 Calcium Carb/Vitamin D 1 Tablet Tablet PO 0.5 tablet BIDCM ISH Administration Doxazosin Mesylate 1 mg 06/28/23 10:00 06/28/23 08:30 Doxazosin 1 Mg Tablet PO 1 mg DAILY ISH Administration Protocol Finasteride 5 mg 06/28/23 10:00 06/28/23 08:31 Finasteride 5 Mg Tablet PO 5 mg DAILY ISH Administration Lactobacillus Acidophilus 1 tablet 06/28/23 10:00 06/28/23 08:30 Lactobacillus Acidophilus PO 1 tablet DAILY ISH Administration Levetiracetam 500 mg 06/27/23 22:00 06/28/23 08:30 Levetiracetam 500 Mg Tablet PO 06/29/23 23:00 500 mg BID ISH Administration Lisinopril 20 mg 06/28/23 10:00 06/28/23 08:31 Lisinopril 20 Mg Tablet PO 20 mg DAILY ISH Administration Protocol Melatonin 3 mg 06/27/23 22:00 06/27/23 22:04 Melatonin 3 Mg Tablet PO 3 mg QHS ISH Administration Multivitamins 1 tablet 06/28/23 08:00 06/28/23 08:29 Multivitamins,Therapeutic Tablet PO 1 tablet BREAKFAST ISH Administration Pravastatin Sodium 20 mg 06/27/23 22:00 06/27/23 22:03 Pravastatin 20 Mg Tablet PO Not Given QHS ISH Senna 2 tablet 06/27/23 22:00 06/27/23 22:05 Senna Tablet PO 2 tablet QHS ISH Administration Sodium Chloride 10 - 40 ml 06/27/23 18:59 0.9% Saline Lock 10 Ml Syringe IV UD PRN SALINE FLUSH Tuberculin PPD 0.1 ml 07/05/23 10:00 Tuberculin,Purif.Prot.Deriv. 50 Tu/Ml Vial ID 07/05/23 10:01 X1 ONE Vital Signs Temp Pulse Resp BP Pulse Ox O2 Del Method 97.9 F 81 16 144/112 H 95 Room Air 06/28/23 08:35 06/28/23 08:35 06/28/23 08:35 06/28/23 08:35 06/28/23 08:35 06/28/23 08:35 Oxygen Delivery Method Room Air Weight: 94.71 kg Body Mass Index (BMI) 28.3 Sodium 140 mmol/L (136-145) 06/28/23 05:31 Potassium 3.6 mmol/L (3.5-5.1) 06/28/23 05:31 Chloride 108 mmol/L (98-107) H 06/28/23 05:31 Carbon Dioxide 29.0 mmol/L (21.0-32.0) 06/28/23 05:31 Anion Gap 3 (5-15) L 06/28/23 05:31 BUN 21 mg/dL (7-18) H 06/28/23 05:31 Creatinine 0.91 mg/dL (0.70-1.30) 06/28/23 05:31 Est GFR (MDRD) Af Amer 102 mL/min (>60) 06/28/23 05:31 Est GFR (MDRD) Non-Af 84 mL/min (>60) 06/28/23 05:31 BUN/Creatinine Ratio 23.2 RATIO (10-20) H 06/28/23 05:31 Glucose 91 mg/dL (74-106) 06/28/23 05:31 Assessment/Plan: 1. Pain: Tylenol 1000mg PO Q6h PRN Pain 1-10. Please continue to monitor for increased/decreased S/S pain, PRN medication use. -To date, the patient has not required any pain medications at this time. 2. Bowel: Senna 2 tab PO QHS. Please continue to monitor for increased/decreasedconstipation and/or diarrhea. - The patient has not had a bowel movement yet on this admission (<24hrs ago). Please continue to monitor closely and consider adding additional bowel regimen agents if pt does not produce a BM within the next 48hrs, thank you. 3. HTN: Lisinopril 20mg PO Daily. Please continue to monitor BP (range 144-162/89-112), renal function (Scr 0.91 on 06/28), potassium levels (last 3.6 on 06/28). Patient's blood pressure is significantly elevated, please consider adding additional agent if clinically indicated, thank you. 4. Head trauma: Keppra 500mg PO BID thru 06/29/23. Please continue to monitor for worsening in condition, falls, syncope. 5. BPH: Finasteride 5mg PO Daily, Doxazosin 1mg PO daily. Please continue to monitor BP, improvement in urinary flow, decreased urinary retention. 6. HLD/ CAD: Pravastatin 20mg PO QHS. Please continue to monitor for muscle weakness, lipid panel annually or sooner if clinically indicated (not one currently on file). Patient reports not taking medication because he believes this made him fall, refused night time dosing. Please evaluate use of medication(can it be switched to a different agent, obtain lipid panel to see baseline labs). 7. General Wellness: Os-Rogelio+D 1/2 tab PO BID, Acidophilus 1 tab PO Daily, MVI 1 tab PO Daily. 8. Insomnia: Melatonin 3mg PO QHS. Please continue to monitor for medication effectiveness, oversedation. If medication appears ineffective, can consider taking medication at least 2 hours prior to desired bedtime. Assessment/Plan for indications treated with psychotropic medications: - The patient is not on any antipsychotic medications at time of medication review. Medical chart and medication regimen reviewed. The following medication irregularities or issues were identified: 1. HTN: Lisinopril 20mg PO Daily. Patient's blood pressure is significantly elevated (range 144-162/89-112), please consider adding additional agent if clinically indicated, thank you. 2. Pravastatin: patient currently refusing statins, per nursing pt reports he believes this is causing him to fall. Please evaluate if patient would have benefit of switching to another agent- no lipid panel on file. Date Date of Note:: 06/28/23 06/28/23 1112 <Electronically signed by Demetria Chamberlain> Demetria Chamberlain Cosigner Signature (if applicable): CC: ~ Signed [facility] Work Phone: 1(133) 485-848112-28-2023 NoteHNO ID: [id number] Author: Sultana Nolasco RN Service: Care Management Author Type: Registered Nurse Type: Care Mgt Progress Note Filed: 06/27/2023 3:12 PM Note Text: CARE MANAGEMENT DISCHARGE NOTE SERVICE DATE: June 27, 2023 SERVICE TIME: 3:10 PM Admission Date: 06/21/2023 LOS: 6 days Discharge Arrangement Discharge Arrangement: [facility] Was an expedited discharge program used?: Yes Type: [employer] Services Arranged Provider Name: [facility] Caregiver Assessment Caregiver is ready, willing and able to meet the patient's needs as recommended by the inter-professional team: Yes Name of Caregiver: Staff at SNF Transportation Arrangements Transportation Arrangements: Ambulance Transportation Agency and Phone #:: [facility] ( [facility] ) [phone] / [phone] Date of Trip: 06/27/23 Time of Trip: 1700 Type of Service: BLS Non-emergency Is Patient Medicaid Pending?: No Was transportation financial coverage discussed with family?: Family Hotel Assistant General Manager Location: [facility] Destination: [facility] Financial Care Management Responsibility: None Handoff Communication: Additional Information: Pt is D/C today to SNF in [place]. Will transport at 5 pm by cot transport with [facility]. D/C paperwork sent electronically. RN will call nurse to nurse report. Pt is aware of D/C plans and stated he would call his family. SIGNATURE: Sultana Nolasco RN PATIENT NAME: Deniz Kumar DATE: June 27, 2023 TIME: 3:10 PM CONTACT #: [phone] Note HNO ID: [id number] Author: Joellen Ramirez Service: Care Management Author Type: ? Type: Care Mgt Progress Note Filed: 06/27/2023 1:23 PM Note Text: [facility] PRECERT NOTE [employer] MEDICARE PPO approved [facility] for [facility] . Precert approved through 07/02/2023. For any additional questions regarding approvals, transport or care management needs, please contact the CM assigned to this patient in the Treatment Team. SIGNATURE: Joellen Dominguez DATE: June 27, 2023 TIME: 1:22 [facility]12-28-2023 NoteHNO ID: [id number] Author: Sultana Nolasco RN Service: Care Management [...] 27, 2023 TIME: 3:07 PM PAGER/CONTACT #: [phone] [place] [address] 06-27-2023 NoteHNO ID: [id number] Author: Liz Naylor APRN.CNP Service: General Surgery Author Type: Nurse Practitioner Type: Progress Notes Filed: 07/02/2023 9:27 AM Note Text: Summary: [facility] DC Note Discharge Geriatric Vulnerability Screens Surgeon: Surgeon(s) and Role: * Bonifacio Valdez MD - Primary * Uche Vasquez [...] vulnerability screens were reviewed by Liz Naylor APRN.CASH APPLICATIONS ASSOCIATE and results were communicated to surgeon/surgical team who devised the above plan. The plan was communicated to the patient and family/caregivers: Via nursing dc instructions Patient/Caregivers were given educational material on delirium, falls, and mobility. Patient's primary doctor: Vadim Deras MD This plan was communicated to the patient's primary doctor: Through Electronic Health Record (EHR) messaging [facility]: [facility] NoteHNO ID: [id number] Author: Sultana Nolasco RN Service: Care Management Author Type: Registered Nurse Type: Care Mgt Progress Note Filed: 06/27/2023 9:09 AM Note Text: CARE MANAGEMENT PROGRESS NOTE SERVICE DATE: 06/27/2023 SERVICE TIME: 9:07 AM LOS: 6 days Requested 7000 be completed and have requested [facility] to start precert to [facility]. . Pt will need cot transport d/t NWB status of LLE - POD#4 SIGNATURE: Sultana Nolasco RN PATIENT NAME: Deniz Kumar DATE: June 27, 2023 TIME: 9:06 AM PAGER/CONTACT #: [phone] 06-27-2023 NoteHNO ID: [id number] Author: Sultana Nolasco RN Service: Care Management Author Type: Registered Nurse Type: Care Mgt Progress Note Filed: 06/27/2023 8:59 AM Note Text: Attestation signed by Kade Garrett MD at 06/27/2023 9:00 AM SIGNATURE: Kade Garrett MD PATIENT NAME: Deniz Kumar DATE: June 27, 2023 TIME: 9:00 AM Pager: [phone] CARE MANAGEMENT PROGRESS NOTE SERVICE DATE: 06/27/2023 [...] 27, 2023 TIME: 8:58 AM PAGER/CONTACT #: [phone] 06-27-2023 NoteHNO ID: [id number] Author: Bonifacio William PA-C Service: General Surgery Author Type: Physician Supervisor [employer] Workers Type: Progress Notes Filed: 06/27/2023 8:04 AM Note Text: Trauma Surgery Progress Note SERVICE DATE: 06/27/2023 Trauma Service Pager: For questions or concerns Mon-Fri 6a-5p please page [phone]. After 5pm and on Weekends and Holidays, please page [phone] if in ICU or [phone] if on RNF. SUBJECTIVE: Patient was awake [...] (Oral) Resp 18 Ht 182.9 cm (6' 0.01") Wt 96.3 kg (212 lb 4.9 oz) SpO2 92% BMI 28.79 kg/m? O2 Therapy: Room Air IANDO: Date 06/26/23699 - 06/27/2365806/27/23699 - 06/28/23 0659 Shift 6639-8247 6375-5827 1293-0989 24 Hour Total 9986-6224 6694-6453 3590-3565 24 Hour Total INTAKE PO 240 320 [...] TUBE q 6 H Labs: Recent Labs 06/26/2322106/25/23 0149 NA 140 141 K 3.9 3.6* [...] were copied from prior (more content not included)...[facility]12-27-2023 NoteHNO ID: [id number] Author: Sultana Nolasco RN Service: Care Management Author Type: Registered Nurse Type: Care Mgt Progress Note Filed: 06/26/2023 3:02 PM Note Text: CARE MANAGEMENT PROGRESS NOTE SERVICE DATE: 06/26/2023 SERVICE TIME: 2:57 PM LOS: 5 days Per pt and sister, Gerri, SNF referrals placed to [facility] TCU and [facility] in [place], yesterday afternoon Today, [facility] has accepted for skilled care. They are FOC. TC to PT/ OT and they are to do re-evals for obtaining auth. CM following. SIGNATURE: Sultana Nolasco RN PATIENT NAME: Deniz Kumar DATE: June 26, 2023 TIME: 2:57 PM PAGER/CONTACT #: [phone] 06-26-2023 NoteHNO ID: [id number] Author: Michelle Andino APRN.CNP Service: General Surgery Author Type: Nurse Practitioner Type: Progress Notes Filed: 06/26/2023 8:31 AM Note Text: Trauma Surgery Progress Note SERVICE DATE: 06/26/2023 Trauma Service Pager: For questions or concerns Mon-Fri 6a-5p please page [phone]. After 5pm and on Weekends and Holidays, please page [phone] if in ICU or [phone] if on RNF. SUBJECTIVE: No acute overnight [...] (Oral) Resp 16 Ht 182.9 cm (6' 0.01") Wt 96.3 kg (212 lb 4.9 oz) SpO2 92% BMI 28.79 kg/m? O2 Therapy: Room Air IANDO: Date 06/25/23699 - 06/26/23 0659 06/26/23 07 - 06/27/23 0659 Shift 6757-4628 2221-4344 8189-5303 24 Hour Total 0052-7636 4760-6964 2094-2869 24 Hour Total INTAKE PO 320 320 [...] medically stable for disc (more content not included)...[facility] 06-25-2023 NoteHNO ID: [id number] Author: Sultana Nolasco RN Service: Care Management Author Type: Registered Nurse Type: Care Mgt Initial Assessment Filed: 06/25/2023 3:30 PM Note Text: CARE MANAGEMENT: ASSESSMENT AND DISCHARGE PLAN SERVICE DATE: June 25, 2023 SERVICE TIME: 3:26 PM PCP: Vadim Deras MD Primary Contact: Extended Emergency Contact Information Primary Emergency Contact: Gerri Barnes Relation: Sister Admission Status: Inpatient Insurance Provider: [employer] MEDICARE PPO Discharge Planning requested by: Per Department Practice Potential Transition Plans Fpc Facility/Intermediate Care Facility Advance Directives Current Advance Directive: Health Care Power of Operations Staff Specialist Security In Chart: Yes Up To Date and Valid: Yes Current Living Arrangements and Support Lives with: Alone Type of Residence: Private Residence (House) Support: Family members How do you manage to accomplish the following: Independent: Ambulation;Bathe/Shower;Dress;Meals/Meal Prep;Going to the bathroom;Medication Management;Transportation to appointments/community Current Services/Equipment Current Post-Acute Service(s): None Discharge Planning Patient Goal(s): Be able to go home, General wellness, Increase strength [place] of Choice Explained: [place] of Choice Given: Yes Level of Care Discussed: Fpc Facility Are you interested in bedside delivery [...] 25, 2023 TIME: 3:26 PM CONTACT #: [phone] Note HNO ID: [id number] Author: Leah Mcgraw APRN.CNP Service: General Surgery Author Type: Nurse Practitioner Type: Progress Notes Filed: 06/25/2023 8:06 AM Note Text: Trauma Surgery Progress Note SERVICE DATE: 06/25/2023 Trauma Service Pager: For questions or concerns Mon-Fri 6a-5p please page [phone]. After 5pm and on Weekends and Holidays, please page [phone] if in ICU or [phone] if on RNF. SUBJECTIVE: NAEON. Patient reports pain is controlled. He is asking when he can be discharged to SNF - discussed that home visit field care manager will see him today and begin process, but that it may take several days. Patient without focal complaints apart from wanting to be discharged. Tolerating diet. OBJECTIVE: Vitals: Temp (24hrs), Av.6 ?C (97.9 ?F), Min:36.4 ?C (97.5 ?F), Max:36.9 ?C (98.4 ?F) BP 156/91 Pulse (!) 58 Temp 36.6 ?C (97.8 ?F) (Oral) Resp 18 Ht 182.9 cm (6' 0.01") Wt 98.3 kg (216 lb 11.4 oz) SpO2 93% BMI 29.38 kg/m? O2 Therapy: Room Air IANDO: Date 06/24/23 0700 - 06/25/23 0659 06/25/23 07 - 06/26/23 0659 Shift 0660-9964 4142-8807 2306-8893 24 Hour Total 9679-1006 9966-4225 6135-3939 24 Hour Total INTAKE Shift Total OUTPUT [...] June 25, 2023. SIGNAT (more content not included)...[facility]12-26-2023 Note HNO ID: [id number] Author: Uche Vasquez MD Service: Orthopaedic Surgery [...] (Oral) Resp 18 Ht 182.9 cm (6' 0.01") Wt 98.3 kg (216 lb 11.4 oz) SpO2 93% BMI 29.38 kg/m? General Alert. No acute distress. Cooperative with interview. Left Lower Extremity Soft dressing to LLE - clean, dry, intact Alignment normal. No gross deformities. No swelling, ecchymosis, or erythema. No open wounds or lacerations. SILT [place]/Sa/DP/SP/T. Motor intact EHL/DF/PF. DP/PT pulses palpable; BCR all digits. Labs Recent Labs 06/25/23 0149 06/24/23 013 NA 141 140 K 3.6* 3.8 CHLOR 106* 105 CO2 26 27 BUN 30* 33* CREAT 0.95 0.91 GLUC 84 111* ANION 9 8* CA 9.2 9.0 WBC 6.73 8.35 HB 14.5 14.0 HCT 43.2 41.5 PLT 109* 96* Imaging No new imaging Uche Vasquez MD Orthopaedic Surgery - PGY 3 6:51 AM 06/25/2023 Pager #[phone] INPATIENT ATTENDING: Bonifacio Chaudhari MD, Urgent High-Risk Geriatric Patient Vulnerabilities: Age >85 and Impaired Mobility Diet: DIET REGULAR Code Status: Full Code Recommendations: Cognition: No Cognitive Impairment bCAM Score (Calc): Negative Delirium Screen Confusion Assessment Method (CAM - ICU Score): Negative Geriatric Consult (Age over 85 or impaired cognition):Consult to [facility] [employer] Palliative Care/Hospice: Consult not required Rehab/Therapy: PT/OT Recommendations: PT: Recommended Discharge Disposition: Subacute/SNF OT: Recommended Discharge Disposition: Subacute/SNF Swallow: Swallow Screening Result - Step 2: PASSED Swallow Screen - Patient Able To Swallow 3 Ounce Cup of Water Without Exhibiting Signs Of Aspiration Speech Recommendations: Speech: Speech Diet: Nutrition: Consult not required Nutrition Recommendations: MST: Total MST Score (Calculated): 0 Supervisor Facepiece Line: Pharmacy: Consult not needed Social Work: NA Anticipated Discharge Disposition: [facility] NoteHNO ID: [id number] Author: Romeo Sanchez PA-C Service: General Surgery Author Type: Physician Supervisor Cemetery Workers Type: Progress Notes Filed: 06/24/2023 8:41 AM Note Text: Trauma Surgery Progress Note SERVICE DATE: 06/24/2023 Trauma Service Pager: For questions or concerns Mon-Fri 6a-5p please page [phone]. After 5pm and on Weekends and Holidays, please page [phone] if in ICU or [phone] if on RNF. SUBJECTIVE: NAEON. Patient sitting [...] (Oral) Resp 18 Ht 182.9 cm (6' 0.01") Wt 98.3 kg (216 lb 11.4 oz) SpO2 94% BMI 29.38 kg/m? O2 Therapy: Room Air IANDO: Date 06/23/23699 - 06/24/23 0659 06/24/23 07 - 06/25/23 0659 Shift 0718-7275 6491-0040 1156-7627 24 Hour Total 8563-7354 5300-8272 5562-8671 24 Hour Total INTAKE IV 700 100 [...] Ortho PT/OT Dispo Planning: (more content not included)...[facility]12-25-2023 NoteHNO ID: [id number] Author: Bonifacio Valdez MD Service: Orthopaedic Surgery [...] (Oral) Resp 16 Ht 182.9 cm (6' 0.01") Wt 98.1 kg (216 lb 4.3 oz) [...] 3.6* CHLOR 105 108* 106* 109* CO2 BUN 33* 37* 35* 24 CREAT 0.91 [...] - PGY 3 5:53 AM 06/24/2023 Pager #[phone] INPATIENT ATTENDING: Bonifacio Chaudhari MD, Urgent High-Risk Geriatric Patient Vulnerabilities: Age >85 and Impaired Mobility Diet: DIET REGULAR Code Status: Full Code Recommendations: Cognition: No Cognitive Impairment bCAM Score (Calc): Negative Delirium Screen Confusion Assessment Method (CAM - ICU Score): Negative Geriatric Consult (Age over 85 or impaired cognition):Consult to [facility] [employer] Palliative Care/Hospice: Consult not required Rehab/Therapy: PT/OT Recommendations: PT: OT: Swallow: Swallow Screening Result - Step 2: PASSED Swallow Screen - Patient Able To Swallow 3 Ounce Cup of Water Without Exhibiting Signs Of Aspiration Speech Recommendations: Speech: Speech Diet: Nutrition: Consult not required Nutrition Recommendations: MST: Total MST Score (Calculated): 0 Supervisor Facepiece Line: Pharmacy: Consult not needed Social Work: NA Anticipated Discharge Disposition: Home with Self Care Attending Note I personally saw and examined the patient. I reviewed the resident's note. I agree with the resident's assessment and plan unless otherwise noted. Signature: Bonifacio Valdez MD Date: 06/24/2023 Time: 10:11 [facility]12-24-2023 NoteHNO ID: [id number] Author: Romeo Sanchez PA-C Service: General Surgery Author Type: Physician Supervisor Cemetery Workers Type: Progress Notes Filed: 06/23/2023 12:10 PM Note Text: Trauma Surgery Progress Note SERVICE DATE: 06/23/2023 Trauma Service Pager: For questions or concerns Mon-Fri 6a-5p please page [phone]. After 5pm and on Weekends and Holidays, please page [phone] if in ICU or [phone] if on RNF. SUBJECTIVE: NAEON. Patient seen and examined post-operatively. Pain is controlled. Denies [place] or visual changes. No new focal concerns at this time. OBJECTIVE: Vitals: Temp (24hrs), Av.5 ?C (97.7 ?F), Min:36.1 ?C (97 ?F), Max:36.7 ?C (98.1 ?F) BP 148/86 Pulse (!) 56 Temp 36.7 ?C (98.1 ?F) (Oral) Resp 16 Ht 182.9 cm (6' 0.01") Wt 98.1 kg (216 lb 4.3 oz) SpO2 94% BMI 29.33 kg/m? O2 Therapy: Nasal Cannula IANDO: Date 06/22/23 07 - 06/23/2365806/23/23 07 - 06/24/23 0659 Shift 9896-0279 1042-3017 7718-0385 24 Hour Total 1492-3452 6041-3310 6667-3094 24 Hour Total INTAKE PO 450 240 200 890 PO 450 240 200 890 IV 246 246 700 700 Volume (mL) (ceFAZolin iv piggyback 2 g in D5W (iso-osmotic) 100 mL (ANCEF)) 100 100 Volume (mL) (lactated ringers iv infusion) 246 246 Volume (mL) (lactated ringers iv infusion) 600 600 Shift Total 696 112 098 5789 700 700 OUTPUT Urine 150 250 400 [...] Neurosurgery - 2 weeks Ortho - Dr. aVldez - 2 weeks INPATIENT ATTENDING: Dr. Flores (more content not included)...[facility]12-24-2023 NoteHNO ID: [id number] Author: Sailaja Cao APRN.TAX COMPLIANCE REPRESENTATIVE Service: ? Author Type: Nurse Hotel Manager Type: Anesthesia Procedure Notes Filed: 06/23/2023 8:30 AM Note Text: ANESTHESIOLOGY PROCEDURE NOTE Airway General Information Procedure Start Time/Medication Administration: 06/23/2023 8:04 AM Patient location during procedure: OR Timeout Performed Pre-procedure: timeout performed Consent Obtained: Yes Patient identity confirmed: arm band, care [employer] and lending team member and patient Staffing Anesthesiologist: Renaldo Mccurdy MD TAX COMPLIANCE REPRESENTATIVE: Sailaja Cao APRN.TAX COMPLIANCE REPRESENTATIVE Performed by: TAX COMPLIANCE REPRESENTATIVE Indications and Patient Condition Indications for airway [...] June 23, 2023 TIME: 8:29 AM CSN: [id number], [place]-2023 NoteHNO ID: [id number] Author: Uche Vasquez MD Service: Orthopaedic Surgery [...] (Oral) Resp 18 Ht 182.9 cm (6' 0.01") Wt 98 kg (216 lb 0.8 oz) [...] - PGY 3 6:10 AM 06/23/2023 Pager #[phone] INPATIENT ATTENDING: Bonifacio Chaudhari MD, Urgent High-Risk Geriatric Patient Vulnerabilities: Age >85 and Impaired Mobility Diet: DIET NPO Code Status: Full Code Recommendations: Cognition: No Cognitive Impairment bCAM Score (Calc): Negative Delirium Screen Confusion Assessment Method (CAM - ICU Score): Negative Geriatric Consult (Age over 85 or impaired cognition):Consult to [facility] [employer] Palliative Care/Hospice: Consult not required Rehab/Therapy: PT/OT Recommendations: PT: OT: Swallow: Swallow Screening Result - Step 2: PASSED Swallow Screen - Patient Able To Swallow 3 Ounce Cup of Water Without Exhibiting Signs Of Aspiration Speech Recommendations: Speech: Speech Diet: Nutrition: Consult not required Nutrition Recommendations: MST: Total MST Score (Calculated): 0 Supervisor Facepiece Line: Pharmacy: Consult not needed Social Work: NA Anticipated Discharge Disposition: [facility]12-23-2023 NoteHNO ID: [id number] Author: Jon Almaraz MD Service: Orthopaedic Surgery [...] Jon Almaraz MD Orthopaedic Surgery 06/22/2023 5:19 [facility]12-23-2023 NoteHNO ID: [id number] Author: Sina (BOLD Guidance)Bonifacio Service: ? Author Type: Radiologic Technologist Mammogram Type: Plan of Care Filed: 06/22/2023 4:02 PM Note Text: PHARMACY MEDICATION REVIEW Patient Name: Deniz Kumar : 1935 The following medications were updated within the [employer] medication list: Medications ADDED to [employer] medication list Medications CHANGED on [employer] medication list Lactobacillus acidophilus (PROBIOTIC) 10 billion cell cap Patient Yes Yes Sig: Take 1 capsule by mouth. Pt. states he takes occasionally but not daily Melatonin 5 mg cap OTHER Yes Yes Sig: Take 5 mg by mouth daily at bedtime. Pt. states he takes 3mg at bedtime. Medications REMOVED from [employer] medication list Additional comments: I was able to talk with pt. about his home medications. The pt. verified he takes the 8 medications on the [employer] AND PREPARER list. I have not added or removed any medications from the [employer] AND PREPARER list but I did note a change in how the pt. reports he takes 1 medication. He also told me he uses [facility] for fpc medications and [facility] for short term medications. Required follow up actions for nursing: Medication history completed by Historian. No nursing follow up required. The below information represents the best possible medication history: Yes Medication history completed by: Radiologic Technologist Mammogram: Bonifacio Andino (BOLD Guidance) Source of history: Patient: Reliability of source: Appears reliable, clearly identified: Medication name, Medication dose, Medication route, and Medication frequency and Pharmacy records: Epic e-script Medication nonadherence identified: No barriers noted Reconciliation completed: No, pharmacist not yet reviewed Patient interested in Bedside Delivery Services or using [facility] OP Pharmacy at discharge? Unable to assess Preferred outpatient pharmacy: e- [facility] [place] [address] [address] [facility] - [phone] e- [facility] [id number] - [place], [place] [address] - [address] [facility] [phone] e- [id number] [place] [address] - [address] [facility] - [phone] Allergies: Clearasil Maximum S* Swelling Prior to [...] mouth at bedtime Facility-Administered Medications: None Bonifacio Andino (New Grad Rn) phone [phone] 06/22/2023[place]12-23-2023 NoteHNO ID: [id number] Author: Lynda Holman PA-C Service: Neurosurgery Author Type: Physician Supervisor Cemetery Workers Type: Plan of Care Filed: 06/22/2023 9:42 AM Note Text: Neurosurgery Plan of Care Note: Discussed with Dr. Junior. Ok for [facility] today. Lynda Holman PA-C Department of Neurosurgery Pager: [phone] June 22, 2023 9:42 AMRedington-[facility]12[facility]23 NoteHNO ID: [id number] Author: Mariposa Cervantes MD Service: General Surgery Author Type: Physician Type: Progress Notes Filed: 06/22/2023 10:18 AM Note Text: Trauma Surgery Progress Note SERVICE DATE: 06/22/2023 Trauma Service Pager: For questions or concerns Mon-Fri 6a-5p please page [phone]. After 5pm and on Weekends and Holidays, please page [phone] if in ICU or [phone] if on RNF. SUBJECTIVE: Acute events overnight. Patient said that he feels better than he did yesterday. Mild headache noted however no vision changes, dizziness, weakness, nausea OBJECTIVE: Vitals: Temp (24hrs), Av.8 ?C (98.3 ?F), Min:36.7 ?C (98.1 ?F), Max:36.9 ?C (98.4 ?F) BP 115/66 Pulse (!) 51 Temp 36.8 ?C (98.2 ?F) (Oral) Resp 10 Ht 182.9 cm (6' 0.01") Wt 98 kg (216 lb 0.8 oz) SpO2 97% BMI 29.30 kg/m? O2 Therapy: Nasal Cannula IANDO: Date 06/21/23699 - 06/22/23 0606/22/23699 - 06/23/23 0659 Shift 1959-4410 4637-1288 5732-1438 24 Hour Total 2541-0630 0624-7679 9983-7377 24 Hour Total INTAKE IV 749 749 [...] -Nausea: Zofran Okay for diet Pain regimen: ish tylenol, oxy Bowel regimen: NA Labs: CBC, [...] Recommendations: MST: Total MST Score (Calculated): 0 Supervisor Facepiece Line: Pharmacy: Consult not needed Social Work: NA Anticipated Discharge Disposition: Pending Discussed (more content not included)...[facility]10-02-2023 Miscellaneous Notes* Telephone Encounter - Ilnaa Burr RN - 04/01/2023 10:42 AM EDT Patient has been identified by name and date of : Yes, Provider Dr. Deras Date 04/01/23 Time 1045 Patient phones for [...] you. Ilana Burr RN documented in this encounterMarion Hospital08-31-2023 Instructions* Patient Instructions* Radha Branch PA-C - 02/28/2023 2:46 PM EDT The following instructions are important for you related to your office visit [facility] General Sur[facility]. INSTRUCTIONS FOLLOWING YOUR RECENT HERNIA [...] next 6-7 weeks. Usually 8 weeks total fromthe date of surgery. It is not unusual [...] you should contact our office immediately @ [phone] and ask to be transferred to the General Surgery department. documented in this encounterMarion Hospital08-31-2023 History of Present illness Narrative* Radha Branch PA-C - 02/28/2023 2:29 PM EDT FOLLOW UP VISIT - HERNIA NAME: Deniz Echavarria [facility] NO.: [id number] DATE OF SERVICE: 02/28/2023 : 1935 REFERRING PHYSICIAN: Vadim Deras MD Deniz is a patient I am following with Dr. Ware for a recurrent umbilical hernia. Dr. Ware performed a repair of recurrent umbilical hernia on 02/21/23 at [facility]. The patient currently notes nomajor complaints. his appetite has been good. he [...] should brace against the repair site with theirhands or a pillow. Diagnoses: (Z98.890, Z87.19) S/P hernia repair (primary encounter diagnosis) Return to Clinic: The patient is instructed to follow-up with me as needed. Patient verbalized understanding of all above and agreed with the plan. Radha Branch PA-C documented in this encounterMarion Hospital08-18-2023 History of Present illness Narrative* Vadim Deras MD - 02/15/2023 8:33 AM EDT This note was created using Nautitriter. Subjective Deniz Kumar is a 87 year old male. He continued with bothersome BPH LUTS symptoms. Urology didnot recommend treatment. His hypertension had been controlled. [...] - ICD9: 287.5, ICD10: D69.6 Stable. Vadim Deras MD documented in this encounterMarion Hospital07-28-2023 History of Present illness Narrative* Su Ware MD - 01/25/2023 3:32 PM EDT HISTORY AND PHYSICAL Deniz Kumar 1935 REFERRING [...] entered by the nurse and reviewed by tn Nursing Notes: Rosa Steiner LPN 01/25/2023 3:09 PM Signed REVIEW OF [...] failure, other cardiac issues, denies claudication, denies coldfeet, denies peripheral arterial stent. Respiratory: The patient [...] back pain/injury, denies back problems, denies sciatica, deniesknee/foot trouble, denies arthritis, or denies gout. When was patient's last Mammogram screening? N/A Last Colonoscopy: 2003 Rosa Steiner LPN PHYSICAL EXAMINATION: General: The patient is [...] and no icterus noted. Mouth with mucus membranesmoist. Neck - supple with no jugular venous [...] for repair of recurrence umbilical hernia at [facility]. I spent a total of 21 minutes on the date of the service which included preparing to see the patient, [id number] patient care, obtaining oral medical history from the patient in this encounter, performing a medically appropriate examination, counseling and educating the patient/family/caregiver, and ordering and/or scheduling of medications/tests/procedures, and completing appropriate medical documentation. Su Ware MD documented in this encounterMarion Hospital07-28-2023 Nurse Note* Rosa Steiner LPN - 01/25/2023 3:04 PM EDT REVIEW OF SYSTEMS: General: The patient denies [...] failure, other cardiac issues, denies claudication, denies coldfeet, denies peripheral arterial stent. Respiratory: The patient [...] back pain/injury, denies back problems, denies sciatica, deniesknee/foot trouble, denies arthritis, or denies gout. When was patient's last Mammogram screening? N/A Last Colonoscopy: 2003 Rosa Steiner LPN documented in this encounterMarion Hospital07-07-2023 History of Present illness Narrative* Lynda Meyers PA-C - 01/04/2023 9:07 AM EDT Images from the original note were not included. [facility] [...] Proscar and Cardura > 1 year Appt wPETER Gaines MT, PA-C for annual follow-up and refills. PETER Tinoco MT, PA-C * Madison Camejo ESTELA - 01/04/2023 8:09 AM EDT Verified name and date of . CC Post Void Residual HPI: Deniz Kumar is a 87 year old male. The patient is here now for an appointment with PETER Tinoco, MT, PA-COV. Procedure: Explained procedure to patient and verbalizes understanding. Performed a PVR. Patient urinated and instructed to empty bladder as much as possible just prior to having PVR done using bladder ultrasound scanner. Results of scan: 0 mL The patient tolerated the procedure well. Plan: Appointment with Lynda. documented in this encounterMarion Hospital03-28-2023 Instructions* Patient Instructions* Hyun Major APRN.CNP - 09/25/2022 1:38 PM EDT Appears to be subconjunctival hemorrhage - however would like to have you be re- evaluated tomorrow with Dr. Rivera Appointment at [facility] 09.26.2022 @ 1:50 PM Go to ER for any sudden loss of vision or severe vision changes. documented in this encounterMarion Hospital03-28-2023 History of Present illness Narrative* Shannon Fuentes LPN - 09/25/2022 1:35 PM EDT Phone call placed [facility] apoke to Brenda ramirez scheduled 09/25/2022 at 1:50, patient notified with visit. Shannon Fuentes LPN * Hyun Major APRN.CNP - 09/25/2022 1:28 PM EDT Images from the original note were not included. Subjective The history is provided by the patient. No artificial breeding ranch supervisor was used. HPI Deniz Kumar is a 87 year old male who presents today for CC of left eye redness this started in the past day. He denies any foreign body, no runny nose cough, congestion, fever. He has not used any medications or drops. Denies any pain in eye, loss of vision or change, no floaters, curtainveiling or loss of vision in the periphery. [...] have confirmed and edited as necessary, the [facility] Review of Systems Constitutional: Negative for [...] tomorrow at [address] Rivera at [facility], who is his established opthamologist Diagnosis and treatment plan were discussed and questions were answered to the patient's satisfaction. Pt acknowledged understanding of concepts and follow up plan. Specific signs and symptoms that would indicate the need for higher level of care were discussed indetail warranting prompt ER evaluation. Hyun Major APRN.KEVYN documented in this encounterMarion Hospital03-03-2023 Instructions* Patient Instructions* Lynda Meyers PA-C - 08/31/2022 9:32 AM EST Follow up 3 month with PETER Blue MT, PA-C for follow-up on OAB documented in this encounterMarion Hospital03-03-2023 History of Present illness Narrative* Lynda Meyers PA-C - 08/31/2022 8:56 AM EST Images from the original note were not included. [facility] NEW CONSULT PATIENT CLINIC NOTE SERVICE DATE: 08/31/2022 SERVICE TIME: 8:57 AM NAME: Deniz Kumar Consultation requested by Vadim Deras MD for an opinion regarding Difficulty with Urination& Impotence My final recommendations communicated back to the requesting physician by way of our shared Medicalrecord. CHIEF COMPLAINT: Difficulty with Urination & Impotence [...] teaching appt. > 3 mo. Appt w/ [place]. PETER Meyers MT, PA-C I spent a total of 40 minutes on the date of the service which included preparing to see the patient, face to face patient care, completing clinical documentation, obtaining and/or reviewing separately obtained history, performing a medically appropriate examination, counseling and educating the pat ient/family/caregiver, ordering medications, tests, or procedures, and care coordination. PETER Tinoco MT, PA-C * Madison Camejo LPN - 08/31/2022 8:12 AM EST Verified name and date of . CC [...] Plan: Appointment with Lynda. documented in this encounterMarion Hospital02-16-2023 Instructions* Patient Instructions* Vadim Deras MD - 08/16/2022 8:40 AM EST Have you ever planned for future healthcare decisions with a power of drafting layout man, living will, or advance directives? Yes. Have [...] schedule this for you. documented in this encounterMarion Hospital02-16-2023 History of Present illness Narrative* Vadim Deras MD - 08/16/2022 8:26 AM EST This note was created using Nautitriter. Subjective Deniz Kumar is a 87 year [...] ICD10: N52.9 - CONSULT TO UROLOGY Vadim Deras MD * Vadim Deras MD - 08/16/2022 8:19 AM EST Deniz Kumar is a 87 year old male here for a Medicare Subsequent Annual Wellness Visit Health Risk Assessment In general, health is: Very good Concerns with balance:Several days Concerns with teeth or dentures:Not at all Concerns with sexual function:More than half the days [place] anxious, stressed, angry, irritable, lonely, isolated, or [...] whole grains, and fiber-rich foods: More than halfthe days Number of days per week engages in exercise: 2 days Average alcohol consumption: 2-3 times a week Current Providers Specialists: I have reviewed specialist-related care of the patient in the medical record. Current care team: Patient Care Team: Vadim Deras MD as PCP - General (Internal Medicine) [...] with patient, and I recommended no further interventionat this time. Cognitive screening Mini Cog Score: [...] (Src) 97.2 (Temporal) Resp 12 Ht 6' 0" (1.83m) Wt 215 lb (97.5kg) BMI 29.15 [...] pharmacy - Depression screening [facility] Miscellaneous Notes* Telephone Encounter - Cary Andre LPN - 08/03/2022 2:34 PM EST Patient has been identified by name and [...] you. Cary Andre LPN documented [facility] Miscellaneous Notes* Telephone Encounter - Angélica San MA - 05/05/2022 2:25 PM EDT Pt was notified of the results. Pt verbalized understanding. Angélica San MA * Telephone Encounter - Valdez Arellano APRN.CNP - 05/05/2022 8:17 AM EDT Please notify that covid. Continue with plan of care as discussed during visit. documented in this encounterMarion [facility]11-04-2022 History of Present illness Narrative* Susan Corado PA-C - 05/04/2022 9:49 AM EDT This note was created using Nautitriter. Subjective Deniz Kumar is a 86 year old male. HPI Patient presents with an exposure to COVID. He states his friend called him and told him that he tested positive for COVID. The patient is not having any symptoms. No fever, chills, headache, sore throat, congestion, body aches or chills. No vomiting or diarrhea. He has not had COVID previously. Heis fully vaccinated. Review of Systems Constitutional: Negative. [...] kg (213 lb 9.6 oz) SpO2 98% BMI28.97 kg/m Physical Exam Vitals reviewed. Constitutional: General: [...] COVID-19 Susan Corado PA-C documented in this encounterMarion [facility]09-05-2022 History of Present illness Narrative* Haylie Chin APRN.CASH APPLICATIONS ASSOCIATE - 03/05/2022 9:38 AM EDT Images from the original note were not included. Subjective She came in with complaints of some type of pimple on the right side of his groin he said. It has been about 4 days. Does not seem to be getting worse. Denies any fevers nausea vomiting. Denies any other symptoms. The history is provided by the patient. No artificial breeding ranch supervisor was used. Review of Systems Constitutional: Negative. Skin: Negative. Objective Physical Exam Exam conducted with a supervisor vegetable farming present. Constitutional: Appearance: Normal appearance. Pulmonary: Effort: [...] days. Educated about medication and supportive therapy willfollow-up if signs and symptoms seem to be getting worse not better. Patient was okay with this care plan. Haylie Chin APRN.CASH APPLICATIONS ASSOCIATE documented in this encounterMarion Hospital08-11-2022 Instructions* Patient Instructions* Vadim Deras MD - 02/08/2022 9:26 AM EDT FASTING BLOOD WORK BEFORE August APPOINTMENT. COPY OF ADVANCED DIRECTIVE FOR YOUR RECORD. documented in this encounterMarion Hospital08-11-2022 History of Present illness Narrative* Vadim Deras MD - 02/08/2022 9:14 AM EDT This note was created using Nautitriter. Subjective Deniz Kumar is a 86 year old male. He started noticing muscle aches in his thighs for several months, improving with activity. He was interested in reducing his statin dose. His hypertension wascontrolled. We reviewed his labs. He had no [...] METABOLIC PNL - LIPID PANEL BASIC Vadim Deras MD documented in this encounterMarion Hospital07-14-2022 Miscellaneous Notes* Telephone Encounter - Cee Alonzo Pss - 01/11/2022 12:23 PM EDT Patient has been identified by name and [...] patient. Cee Alonzo Pss documented in this encounterMarion Hospital06-27-2022 History of Present illness Narrative* Su Ware MD - 12/25/2021 8:06 PM EDT Deniz Kumar 1935 REFERRING PHYSICIAN: Self CHIEF [...] mouth once daily. (Patient not taking: Reported on12/25/2021 ) ALLERGIES: Clearasil Maximum Strength PERSONAL HISTORY: [...] there is a palpable suture knot - PDSsuture - which is what the patient is [...] signs/symptoms Su Ware MD documented in this encounterMarion Hospital04-03-2022 History of Present illness Narrative* Su Ware MD - 10/01/2021 5:38 PM EDT FOLLOW UP VISIT NAME: Deniz Echavarria [facility] NO.: [id number] DATE OF SERVICE: 09/29/2021 : 1935 REFERRING PHYSICIAN: Vadim Deras MD Deniz is s/p umbilical hernia repair with findings of incarcerated gangrenous omentum. He toleratedprocedure well. He feels overall well, denies pain. [...] others. Su Ware MD documented in this encounterMarion [facility]02-22-2008 History of Past illness Narrative* Problem Noted Date Resolved Date Dizziness and giddiness 08/22/2007 07/12/19 17 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 02/14/2007 07/12/2016 documented as of this encounter (statuses as of 10/01/2021) [address]22-2008 History of Past illness Narrative* Problem Noted Date Resolved Date Dizziness and giddiness 08/22/2007 07/12/19 17 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 02/14/2007 07/12/2016 documented as of this encounter (statuses as of 12/30/2021) [address]22-2008 History of Past illness Narrative* Problem Noted Date Resolved Date Dizziness and giddiness 08/22/2007 07/12/19 17 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 02/14/2007 07/12/2016 documented as of this encounter (statuses as of 01/11/2022) [address]22-2008 History of Past illness Narrative* Problem Noted Date Resolved Date Dizziness and giddiness 08/22/2007 07/12/19 17 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 02/14/2007 07/12/2016 documented as of this encounter (statuses as of 02/08/2022) [address]22-2008 History of Past illness Narrative* Problem Noted Date Resolved Date Dizziness and giddiness 08/22/2007 07/12/19 17 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 02/14/2007 07/12/2016 documented as of this encounter (statuses as of 03/05/2022) [address]22-2008 History of Past illness Narrative* Problem Noted Date Resolved Date Dizziness and giddiness 08/22/2007 07/12/19 17 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 02/14/2007 07/12/2016 documented as of this encounter (statuses as of 05/04/2022) [address]22-2008 History of Past illness Narrative* Problem Noted Date Resolved Date Dizziness and giddiness 08/22/2007 07/12/19 17 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 02/14/2007 07/12/2016 documented as of this encounter (statuses as of 05/05/2022) [address]22-2008 History of Past illness Narrative* Problem Noted Date Resolved Date Dizziness and giddiness 08/22/2007 07/12/19 17 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 02/14/2007 07/12/2016 documented as of this encounter (statuses as of 08/06/2022) [address]22-2008 History of Past illness Narrative* Problem Noted Date Resolved Date Dizziness and giddiness 08/22/2007 07/12/19 17 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 02/14/2007 07/12/2016 documented as of this encounter (statuses as of 08/16/2022) [address]22-2008 History of Past illness Narrative* Problem Noted Date Resolved Date Dizziness and giddiness 08/22/2007 07/12/19 17 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 02/14/2007 07/12/2016 documented as of this encounter (statuses as of 08/31/2022) [address]22-2008 History of Past illness Narrative* Problem Noted Date Resolved Date Dizziness and giddiness 08/22/2007 07/12/19 17 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 02/14/2007 07/12/2016 documented as of this encounter (statuses as of 09/25/2022) [address]22-2008 History of Past illness Narrative* Problem Noted Date Resolved Date Dizziness and giddiness 08/22/2007 07/12/19 17 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 02/14/2007 07/12/2016 documented as of this encounter (statuses as of 01/04/2023) [address]22-2008 History of Past illness Narrative* Problem Noted Date Diagnosed Date Resolved Date Dizziness and giddiness 08/22/200707/01 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 02/14/2007 07/12/2016 documented as of this encounter (statuses as of 01/27/2023) [address]22-2008 History of Past illness Narrative* Problem Noted Date Diagnosed Date Resolved Date Dizziness and giddiness 08/22/200707/01 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 02/14/2007 07/12/2016 documented as of this encounter (statuses as of 02/15/2023) [address]22-2008 History of Past illness Narrative* Problem Noted Date Diagnosed Date Resolved Date Dizziness and giddiness 08/22/200707/01 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 02/14/2007 07/12/2016 documented as of this encounter (statuses as of 03/01/2023) [address]22-2008 History of Past illness Narrative* Problem Noted Date Diagnosed Date Resolved Date Dizziness and giddiness 08/22/200707/01 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 02/14/2007 07/12/2016 documented as of this encounter (statuses as of 04/02/2023) [address]22-2008 History of Past illness Narrative* Problem Noted Date Diagnosed Date Resolved Date Dizziness and giddiness 08/22/200707/01 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 02/14/2007 07/12/2016 documented as of this encounter (statuses as of 08/03/2023) [address]22-2008 History of Past illness Narrative* Problem Noted Date Diagnosed Date Resolved Date Dizziness and giddiness 08/22/200707/01 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 02/14/2007 07/12/2016 documented as of this encounter (statuses as of 08/06/2023) [address]22-2008 History of Past illness Narrative* Problem Noted Date Diagnosed Date Resolved Date Dizziness and giddiness 08/22/200707/01 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 02/14/2007 07/12/2016 documented as of this encounter (statuses as of 08/13/2023) [address]22-2008 History of Past illness Narrative* Problem Noted Date Diagnosed Date Resolved Date Dizziness and giddiness 08/22/200707/01 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 02/14/2007 07/12/2016 documented as of this encounter (statuses as of 08/15/2023) [address]22-2008 History of Past illness Narrative* Problem Noted Date Diagnosed Date Resolved Date Dizziness and giddiness 08/22/200707/01 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 02/14/2007 07/12/2016 documented as of this encounter (statuses as of 08/23/2023) [address]22-2008 History of Past illness Narrative* Problem Noted Date Diagnosed Date Resolved Date Dizziness and giddiness 08/22/200707/01 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 02/14/2007 07/12/2016 documented as of this encounter (statuses as of 09/09/2023) [address]22-2008 History of Past illness Narrative* Problem Noted Date Diagnosed Date Resolved Date Dizziness and giddiness 08/22/200707/01 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 02/14/2007 07/12/2016 documented as of this encounter (statuses as of 10/15/2023) [facility]* Diagnosis Status post umbilical hernia repair, follow-up exam- Primary Follow-up examination, following other surgery [facility] encounter [facility]* Diagnosis Extrusion of suture, initial encounter- Primary [facility] Benign prostatic hyperplasia with urinary obstruction Essential hypertension Unspecified essential hypertension [facility]* Diagnosis Myalgia- Primary Mylagia and myositis, unspecified Need for vaccination Need for prophylactic vaccination and inoculation against unspecified single disease Essential hypertension Unspecified essential hypertension Hyperlipidemia, unspecified hyperlipidemia type [facility]* Diagnosis Skin infection- Primary Unspecified local infection of skin and subcutaneous tissue [facility]* Diagnosis Exposure to COVID-19 virus- Primary [facility]* Diagnosis Benign prostatic hyperplasia with urinary obstruction Essential hypertension Unspecified essential hypertension documented in this encounter [facility] note* Diagnosis Medicare annual wellness visit, subsequent- Primary Routine general medical examination at a health care facility Thrombocytopenia, unspecified (HCC) Thrombocytopenia, unspecified Essential hypertension Unspecified essential hypertension Benign prostatic hyperplasia with urinary obstruction Hyperlipidemia, unspecified hyperlipidemia type Erectile dysfunction, unspecified erectile dysfunction type documented in this encounter [facility] note* Diagnosis OAB (overactive bladder)- Primary Hypertonicity of bladder Erectile dysfunction, unspecified erectile dysfunction type Benign prostatic hyperplasia with urinary obstruction [facility]* Diagnosis Eye problem- Primary Other eye problems [facility]* Diagnosis OAB (overactive bladder)- Primary 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 [facility]* Diagnosis Recurrent umbilical hernia- Primary Umbilical hernia without mention of obstruction or gangrene [facility]* Diagnosis Benign prostatic hyperplasia with urinary obstruction- Primary Essential hypertension Unspecified essential hypertension Hyperlipidemia, unspecified hyperlipidemia type Hypoalbuminemia Other disorders of plasma protein metabolism Thrombocytopenia, unspecified (HCC) Thrombocytopenia, unspecified Recurrent umbilical hernia Umbilical hernia without mention of obstruction or gangrene [facility]* Diagnosis S/P hernia repair- Primary Other postprocedural status [facility]* Diagnosis Hyperlipidemia, unspecified hyperlipidemia type documented in this encounter [facility] noteNo assessment information availableWRegional Medical Center Work Phone: Evaluation note* Diagnosis Onset Date Resolution Status Adverse reaction to drug natalia t primarily affects musculoskeletal system acute Bimalleolar fracture of left ankle acute BPH (benign prostatic hyperplasia) acute Debility acute History of open reduction an d internal fixation (ORIF) procedure acute Hypercholesterolemia acute Overactive bladder acute Thrombocytopenia acute Hypertension [facility] Work Phone: Evaluation note* Diagnosis SAH (subarachnoid hemorrhage) (HCC) Subarachnoid hemorrhage documented in this encounter [facility] note* Diagnosis Closed bimalleolar fracture of left ankle with routine healing, subsequent encounter- Primary [facility]* Diagnosis Onset Date Resolution Status BPH (benign prostatic hyperplasia) acute Debility acute History of open reduction an d internal fixation (ORIF) procedure acute Hypertension chronic Adverse reaction to drug natalia t primarily affects musculoskeletal system resolved Bimalleolar fracture of left ankle resolved Hypercholesterolemia resolve d Overactive bladder resolved Thrombocytopenia resolved [facility] Work Phone: Evaluation note* Diagnosis Essential hypertension- Primary Unspecified essential hypertension History of TIA (transient ischemic attack) Transient ischemic attack (TIA), and cerebral infarction without residual deficits Gait abnormality Abnormality of gait Hyperlipidemia, unspecified hyperlipidemia type Thrombocytopenia, unspecified (HCC) Thrombocytopenia, unspecified Hypoalbuminemia Other disorders of plasma protein metabolism [facility]* Diagnosis Essential hypertension Unspecified essential hypertension Benign prostatic hyperplasia with urinary obstruction [facility]* Diagnosis Gait abnormality- Primary Abnormality of gait Leg weakness, bilateral Other musculoskeletal symptoms referable to limbs Essential hypertension Unspecified essential hypertension [facility]* Diagnosis Leg weakness, bilateral- Primary Other musculoskeletal symptoms referable to limbs Gait abnormality Abnormality of gait Hyperlipidemia, unspecified hyperlipidemia type Essential hypertension Unspecified essential hypertension Urgency of urination Benign prostatic hyperplasia with urinary obstruction [facility]* Diagnosis Urgency of urination Benign prostatic hyperplasia with urinary obstruction [facility]* Diagnosis Thrombocytopenia, unspecified (HCC)- Primary Thrombocytopenia, unspecified Essential hypertension Unspecified essential hypertension [facility]* Diagnosis Medicare annual wellness visit, subsequent- Primary Routine general medical examination at a health care facility Screening for depression Encounter for screening examination for other mental health and behavioral disorders History of TIA (transient ischemic attack) Transient ischemic attack (TIA), and cerebral infarction without residual deficits Gait abnormality Abnormality of gait Essential hypertension Unspecified essential hypertension Hyperlipidemia, unspecified hyperlipidemia type Benign prostatic hyperplasia with urinary obstruction Urgency of urination Edema of leg Edema [facility]* Diagnosis Ataxia- Primary Lack of coordination Gait abnormality Abnormality of gait Leg weakness, bilateral Other musculoskeletal symptoms referable to limbs Facial droop Facial weakness Tremor Abnormal involuntary movements Speech disturbance, unspecified type History of subdural hematoma Spinal stenosis in cervical region Spinal stenosis of lumbar region without neurogenic claudication Spinal stenosis, lumbar region, without neurogenic claudication Spinal stenosis of cervical region Spinal stenosis in cervical region [facility] Diagnosis Ataxia Lack of coordination Tremor Abnormal involuntary movements Spinal stenosis in cervical region Spinal stenosis of cervical region Spinal stenosis in cervical region Spinal stenosis of lumbar region without neurogenic claudication Spinal stenosis, lumbar region, without neurogenic claudication [facility]* Diagnosis Cervical stenosis of spine- Primary Spinal stenosis in cervical region Spinal stenosis of lumbar region, unspecified whether neurogenic claudication present [facility]* Diagnosis Benign prostatic hyperplasia with urinary obstruction Urgency of urination [facility]* Diagnosis Gait abnormality- Primary Abnormality of gait Leg weakness, bilateral Other musculoskeletal symptoms referable to limbs Speech disturbance, unspecified type Ataxia Lack of coordination History of subdural hematoma Spinal stenosis in cervical region Spinal stenosis of lumbar region without neurogenic claudication Spinal stenosis, lumbar region, without neurogenic claudication [facility]* Diagnosis Parkinson's disease, unspecified whether dyskinesia present, unspecified whether manifestations fluctuate (HCC)- Primary Gait abnormality Abnormality of gait Speech disturbance, unspecified type Ataxia Lack of coordination History of subdural hematoma Spinal stenosis in cervical region Spinal stenosis of lumbar region without neurogenic claudication Spinal stenosis, lumbar region, without neurogenic claudication Benign prostatic hyperplasia with urinary frequency Nocturia Leg weakness, bilateral Other musculoskeletal symptoms referable to limbs [facility]* Diagnosis Overactive bladder- Primary Hypertonicity of bladder Benign prostatic hyperplasia with urinary frequency Nocturia [facility]* Diagnosis BPH with urinary obstruction- Primary Hypertrophy of prostate with urinary obstruction and other lower urinary tract symptoms (LUTS) [facility] Additional Instructions Return to the emergency department with decreased mental status, new or worsening symptoms.[facility] Work Phone: Reason for referral (narrative)* Diagnostic Procedure Only (Routine) - Pending Review Specialty Diagnoses / Procedures Referred By Julian aparicio Referred To Contact XR IMAGING Diagnoses Closed bimalleolar fracture of left ankle with routine healing, subsequent encounter Procedures XR ANKLE GENERAL 3V AP/LAT/OBL LEFT RADEX ANKLE COMPLETE MINIMUM 3 VIEWS Bonifacio Valdez MD [address] [place] [place] [address] [place] [id number] Referral ID Status Reason Start Date Expiration Date Visits Requested Visits Authorized [id number] Pending Review Auto-Generat ed Referral 08/06/2023 09/03/2024 1 1 [facility] for referral (narrative)No reason for referral information availableWRegional Medical Center Work Phone: Summary Purpose Family History No Family History Records Found Relationship Condition Age at Onset Recorded Date/T archana father Malignant neoplasm Unknown mother Malignant neoplasm Unknown sister Hypertension Unknown Hyperlipidemia Unknown Advance Directives No Advanced Directives Records FoundDocuments on File Type Date Recorded Patient Route Sales Specialist Expl anation Advance Directive(s) 03/01/2023 9:16 AM Date Activated Date Inactivated Comments 06/21/2023 7:56 PM 06/27/2023 9:05 PM Question Answer Comments Full Code Order Discussed With: Patient Documents on File Type Date Recorded Patient Route Sales Specialist Expl anation Advance Directive(s) 09/21/2021 10:36 AM Advance Directive Response Recorded Date/ Time Living Will Yes June 21, 023 12:54pm Power of Operations Staff Specialist Security Yes June 21, 2023 12:54pm Name of Medical Power of Operations Staff Specialist Security Gerri Barnes June 21, 2023 12:54pm Advance Directive Response Recorded Date/ Time Name of Medical Power of Operations Staff Specialist Security Gerri Barnes June 21, 2023 12:54pm Name of Medical Power of Operations Staff Specialist Security heidi Penny July 03, 2023 4:56pm Living Will Yes July 03 4:56pm Power of Operations Staff Specialist Security Yes July 03 4:56pm Documents on File Type Date Recorded Patient Route Sales Specialist Expl anation Advance Directive(s) 03/01/2023 9:16 AM Latest Code Status on File Code Status Date Activated Date Inactivated Comments Full Code 06/21/2023 7:56 PM 06/27/2023 9:05 PM Question Answer Comments Full Code Order Discussed With: Patient Latest Code Status on File Code Status Date Activated Date Inactivated Comments Full Code 06/21/2023 7:56 PM 06/27/2023 9:05 PM Question Answer Comments Full Code Order Discussed With: Patient Date Activated Date Inactivated Comments 06/21/2023 7:56 PM 06/27/2023 9:05 PM Question Answer Comments Full Code Order Discussed With: Patient Advance Directive Response Recorded Date/ Time Do you have a Healthcare Power of Operations Staff Specialist Security? No November 30, 2024 2:11pm Reason for Referral Specialty Diagnoses / Procedures Referred By Contac t Referred To Contact Urology Diagnoses Benign prostatic hyperplasia with urinary obstruction Erectile dysfunction, unspecified erectile dysfunction type Procedures CONSULT TO UROLOGY OFFICE/OUTPATIENT [facility] 60-74 MINUTES Vadim Deras MD [address] [place] [address] Referral ID Status Reason Start Date Expiration Date Visits Requested Visits Authorized [id number] Authorized PCP Requested Referral 08/16/2022 08/16/2023 1 1 Specialty Diagnoses / Procedures Referred By Contac t Referred To Contact CT IMAGING Diagnoses SAH (subarachnoid hemorrhage) (HCC) Procedures CT BRAIN WO IVCON CT HEAD/BRAIN W/O CONTRAST MATERIAL Rosanne Flannery, [employer] [address] [place] [address] [place] [address] Referral ID Status Reason Start Date Expiration Date V isits Requested Visits Authorized [id number] Closed Auto-Generate d Referral 07/01/2023 06/30/2024 1 1 Specialty Diagnoses / Procedures Referred By Contac t Referred To Contact Neurology Diagnoses Gait abnormality Leg weakness, bilateral Procedures CONSULT TO NEUROLOGY OFFICE/OUTPATIENT [facility] 60 MINUTES Vadim Deras MD [address] [place] [address] Referral ID Status Reason Start Date Expiration Date Visits Requested Visits Authorized [id number] Pending Review PCP Requested Referral 10/14/2023 10/13/2024 1 1 Specialty Diagnoses / Procedures Referred By Contac t Referred To Contact MR IMAGING Diagnoses Spinal stenosis of lumbar region without neurogenic claudication Procedures MRI LUMBAR SPINE WO IVCON MRI SPINAL CANAL LUMBAR W/O CONTRAST MATERIAL Bonifacio Ledbetter Jr., MD [address] [facility] [address] [place] [address] [place] [address] Referral ID Status Reason Start Date Expiration Date Visits Requested Visits Authorized [id number] Authorized Auto-Generat ed Referral 03/13/2024 04/12/2025 1 1 Specialty Diagnoses / Procedures Referred By Contac t Referred To Contact MR IMAGING Diagnoses Tremor Spinal stenosis in cervical region Spinal stenosis of cervical region Procedures MRI CERVICAL SPINE WO IVCON MRI SPINAL CANAL CERVICAL W/O CONTRAST MATRL Bonifacio Ledbetter Jr., MD [address] [place] [address] [place] [address] Referral ID Status Reason Start Date Expiration Date Visits Requested Visits Authorized [id number] Authorized Auto-Generat ed Referral 03/13/2024 04/12/2025 1 1 Specialty Diagnoses / Procedures Referred By Contac t Referred To Contact MR IMAGING Diagnoses Ataxia Procedures MRI BRAIN WO IVCON MRI BRAIN BRAIN STEM W/O CONTRAST MATERIAL Bonifacio Ledbetter Jr., MD [address] [place] [address] [place] [address] Referral ID Status Reason Start Date Expiration Date Visits Requested Visits Authorized [id number] Authorized Auto-Generat ed Referral 03/13/2024 04/12/2025 1 1 Referral ID Status Reason Start Date Expiration Date V isits Requested Visits Authorized [id number] Closed Auto-Generate d Referral 03/13/2024 04/12/2025 1 1 Referral ID Status Reason Start Date Expiration Date V isits Requested Visits Authorized [id number] Closed Auto-Generate d Referral 03/13/2024 04/12/2025 1 1 Referral ID Status Reason Start Date Expiration Date V isits Requested Visits Authorized [id number] Closed Auto-Generate d Referral 03/13/2024 04/12/2025 1 1 Specialty Diagnoses / Procedures Referred By Contac t Referred To Contact [facility] [place] Diagnoses Cervical stenosis of spine Spinal stenosis of lumbar region, unspecified whether neurogenic claudication present Procedures CONSULT TO [facility] OFFICE/OUTPATIENT [facility] 60 MINUTES Bonifacio Ledbetter Jr., MD [address] [place] [address] Referral ID Status Reason Start Date Expiration Date Visits Requested Visits Authorized [id number] Pending Review PCP Requested Referral 4 04/12/2025 1 1 Chief Complaint and Reason for Visit Chief Complaint fall Chief Complaint fall LEFT SUBDURAL HEMATOMA, LEFT ANKLE ORIF LEFT SUBDURAL HEMATOMA, LEFT ANKLE ORIF Reason for Visit Adverse reaction to drug that primarily affects musculoskeletal system Bimalleolar fracture of left ankle BPH (benign prostatic hyperplasia) Debility History of open reduction and internal fixation (ORIF) procedure Hypercholesterolemia Overactive bladder Thrombocytopenia Hypertension Chief Complaint fall LEFT SUBDURAL HEMATOMA, LEFT ANKLE ORIF LEFT SUBDURAL HEMATOMA, LEFT ANKLE ORIF LONGTERM LABWORK LABWORK Reason for Visit BPH (benign prostati c hyperplasia) Debility History of open reduction and internal fixation (ORIF) procedure Hypertension Adverse reaction to drug that primarily affects musculoskeletal system Bimalleolar fracture of left ankle Hypercholesterolemia Overactive bladder Thrombocytopenia Chief Complaint fall LEFT SUBDURAL HEMATOMA, LEFT ANKLE ORIF LEFT SUBDURAL HEMATOMA, LEFT ANKLE ORIF LONGTERM LABWORK LONGTERM LAB WORK LABWORK Reason for Visit BPH (benign prostati c hyperplasia) Debility History of open reduction and internal fixation (ORIF) procedure Hypertension Adverse reaction to drug that primarily affects musculoskeletal system Bimalleolar fracture of left ankle Hypercholesterolemia Overactive bladder Thrombocytopenia Chief Complaint Admit Date LABWORK October 05, 2024 5:00 am head injury November 30, 2024 2:08p m Additional Source Comments (unrecognized sect ion and content) No Status Records FoundNo Status Records FoundNo Status Records FoundNo Status Records FoundNo Status Records FoundNo Status Records Found INFORMATION SOURCE (unrecogn ized section and content) DATE CREATED AUTHOR 11/05/2018 [facility] DATE CREATED AUTHOR AUTHOR'S ORGANIZ ATION 11/22/2018 [facility] DATE CREATED AUTHOR AUTHOR'S ORGANIZ ATION 04/14/2024 [facility] DATE CREATED AUTHOR AUTHOR'S ORGANIZ ATION 10/20/2024 [facility] DATE CREATED AUTHOR AUTHOR'S ORGANIZ ATION 12/07/2024 [facility] DATE CREATED AUTHOR AUTHOR'S ORGANIZ ATION 12/11/2024 [facility] l Source Comments (unrecognize d section and content) In the event this informatio n is protected by the Federal Confidentiality of Alcohol and Drug Abuse Patient Records regulations: The Federal rules restrict any use of the information to criminally investigate or prosecute any alcohol or drug abuse patient.[facility] HospitalIn the event this information is protected by the Federal Confidentiality of Alcohol and Drug Abuse Patient Records regulations: The Federal rules restrict any use of the information to criminally investigate or prosecute any alcohol or drug abuse patient.[facility] HospitalIn the event this information is protected by the Federal Confidentiality of Alcohol and Drug Abuse Patient Records regulations: The Federal rules restrict any use of the information to criminally investigate or prosecute any alcohol or drug abuse patient.[facility] HospitalIn the event this information is protected by the Federal Confidentiality of Alcohol and Drug Abuse Patient Records regulations: The Federal rules restrict any use of the information to criminally investigate or prosecute any alcohol or drug abuse patient.[facility] HospitalIn the event this information is protected by the Federal Confidentiality of Alcohol and Drug Abuse Patient Records regulations: The Federal rules restrict any use of the information to criminally investigate or prosecute any alcohol or drug abuse patient.[facility] HospitalIn the event this information is protected by the Federal Confidentiality of Alcohol and Drug Abuse Patient Records regulations: The Federal rules restrict any use of the information to criminally investigate or prosecute any alcohol or drug abuse patient.[facility] HospitalIn the event this information is protected by the Federal Confidentiality of Alcohol and Drug Abuse Patient Records regulations: The Federal rules restrict any use of the information to criminally investigate or prosecute any alcohol or drug abuse patient.[facility] HospitalIn the event this information is protected by the Federal Confidentiality of Alcohol and Drug Abuse Patient Records regulations: The Federal rules restrict any use of the information to criminally investigate or prosecute any alcohol or drug abuse patient.[facility] HospitalIn the event this information is protected by the Federal Confidentiality of Alcohol and Drug Abuse Patient Records regulations: The Federal rules restrict any use of the information to criminally investigate or prosecute any alcohol or drug abuse patient.[facility] HospitalIn the event this information is protected by the Federal Confidentiality of Alcohol and Drug Abuse Patient Records regulations: The Federal rules restrict any use of the information to criminally investigate or prosecute any alcohol or drug abuse patient.[facility] HospitalIn the event this information is protected by the Federal Confidentiality of Alcohol and Drug Abuse Patient Records regulations: The Federal rules restrict any use of the information to criminally investigate or prosecute any alcohol or drug abuse patient.[facility] HospitalIn the event this information is protected by the Federal Confidentiality of Alcohol and Drug Abuse Patient Records regulations: The Federal rules restrict any use of the information to criminally investigate or prosecute any alcohol or drug abuse patient.[facility] HospitalIn the event this information is protected by the Federal Confidentiality of Alcohol and Drug Abuse Patient Records regulations: The Federal rules restrict any use of the information to criminally investigate or prosecute any alcohol or drug abuse patient.[facility] HospitalIn the event this information is protected by the Federal Confidentiality of Alcohol and Drug Abuse Patient Records regulations: The Federal rules restrict any use of the information to criminally investigate or prosecute any alcohol or drug abuse patient.[facility] HospitalIn the event this information is protected by the Federal Confidentiality of Alcohol and Drug Abuse Patient Records regulations: The Federal rules restrict any use of the information to criminally investigate or prosecute any alcohol or drug abuse patient.[facility] HospitalIn the event this information is protected by the Federal Confidentiality of Alcohol and Drug Abuse Patient Records regulations: The Federal rules restrict any use of the information to criminally investigate or prosecute any alcohol or drug abuse patient.[facility] HospitalIn the event this information is protected by the Federal Confidentiality of Alcohol and Drug Abuse Patient Records regulations: The Federal rules restrict any use of the information to criminally investigate or prosecute any alcohol or drug abuse patient.[facility] HospitalIn the event this information is protected by the Federal Confidentiality of Alcohol and Drug Abuse Patient Records regulations: The Federal rules restrict any use of the information to criminally investigate or prosecute any alcohol or drug abuse patient.[facility] HospitalIn the event this information is protected by the Federal Confidentiality of Alcohol and Drug Abuse Patient Records regulations: The Federal rules restrict any use of the information to criminally investigate or prosecute any alcohol or drug abuse patient.[facility] HospitalIn the event this information is protected by the Federal Confidentiality of Alcohol and Drug Abuse Patient Records regulations: The Federal rules restrict any use of the information to criminally investigate or prosecute any alcohol or drug abuse patient.[facility] HospitalIn the event this information is protected by the Federal Confidentiality of Alcohol and Drug Abuse Patient Records regulations: The Federal rules restrict any use of the information to criminally investigate or prosecute any alcohol or drug abuse patient.[facility] HospitalIn the event this information is protected by the Federal Confidentiality of Alcohol and Drug Abuse Patient Records regulations: The Federal rules restrict any use of the information to criminally investigate or prosecute any alcohol or drug abuse patient.[facility] HospitalIn the event this information is protected by the Federal Confidentiality of Alcohol and Drug Abuse Patient Records regulations: The Federal rules restrict any use of the information to criminally investigate or prosecute any alcohol or drug abuse patient.[facility] HospitalIn the event this information is protected by the Federal Confidentiality of Alcohol and Drug Abuse Patient Records regulations: The Federal rules restrict any use of the information to criminally investigate or prosecute any alcohol or drug abuse patient.[facility] HospitalIn the event this information is protected by the Federal Confidentiality of Alcohol and Drug Abuse Patient Records regulations: The Federal rules restrict any use of the information to criminally investigate or prosecute any alcohol or drug abuse patient.[facility] HospitalIn the event this information is protected by the Federal Confidentiality of Alcohol and Drug Abuse Patient Records regulations: The Federal rules restrict any use of the information to criminally investigate or prosecute any alcohol or drug abuse patient.[facility] HospitalIn the event this information is protected by the Federal Confidentiality of Alcohol and Drug Abuse Patient Records regulations: The Federal rules restrict any use of the information to criminally investigate or prosecute any alcohol or drug abuse patient.[facility] HospitalIn the event this information is protected by the Federal Confidentiality of Alcohol and Drug Abuse Patient Records regulations: The Federal rules restrict any use of the information to criminally investigate or prosecute any alcohol or drug abuse patient.[facility] HospitalIn the event this information is protected by the Federal Confidentiality of Alcohol and Drug Abuse Patient Records regulations: The Federal rules restrict any use of the information to criminally investigate or prosecute any alcohol or drug abuse patient.[facility] HospitalIn the event this information is protected by the Federal Confidentiality of Alcohol and Drug Abuse Patient Records regulations: The Federal rules restrict any use of the information to criminally investigate or prosecute any alcohol or drug abuse patient.[facility] HospitalIn the event this information is protected by the Federal Confidentiality of Alcohol and Drug Abuse Patient Records regulations: The Federal rules restrict any use of the information to criminally investigate or prosecute any alcohol or drug abuse patient.[facility] HospitalIn the event this information is protected by the Federal Confidentiality of Alcohol and Drug Abuse Patient Records regulations: The Federal rules restrict any use of the information to criminally investigate or prosecute any alcohol or drug abuse patient.[facility] HospitalIn the event this information is protected by the Federal Confidentiality of Alcohol and Drug Abuse Patient Records regulations: The Federal rules restrict any use of the information to criminally investigate or prosecute any alcohol or drug abuse patient.[facility] HospitalIn the event this information is protected by the Federal Confidentiality of Alcohol and Drug Abuse Patient Records regulations: The Federal rules restrict any use of the information to criminally investigate or prosecute any alcohol or drug abuse patient.[facility] HospitalIn the event this information is protected by the Federal Confidentiality of Alcohol and Drug Abuse Patient Records regulations: The Federal rules restrict any use of the information to criminally investigate or prosecute any alcohol or drug abuse patient.[facility] HospitalIn the event this information is protected by the Federal Confidentiality of Alcohol and Drug Abuse Patient Records regulations: The Federal rules restrict any use of the information to criminally investigate or prosecute any alcohol or drug abuse patient.[facility] HospitalIn the event this information is protected by the Federal Confidentiality of Alcohol and Drug Abuse Patient Records regulations: The Federal rules restrict any use of the information to criminally investigate or prosecute any alcohol or drug abuse patient.[facility] HospitalIn the event this information is protected by the Federal Confidentiality of Alcohol and Drug Abuse Patient Records regulations: The Federal rules restrict any use of the information to criminally investigate or prosecute any alcohol or drug abuse patient.[facility] HospitalIn the event this information is protected by the Federal Confidentiality of Alcohol and Drug Abuse Patient Records regulations: The Federal rules restrict any use of the information to criminally investigate or prosecute any alcohol or drug abuse patient.[facility] HospitalIn the event this information is protected by the Federal Confidentiality of Alcohol and Drug Abuse Patient Records regulations: The Federal rules restrict any use of the information to criminally investigate or prosecute any alcohol or drug abuse patient.[facility] HospitalIn the event this information is protected by the Federal Confidentiality of Alcohol and Drug Abuse Patient Records regulations: The Federal rules restrict any use of the information to criminally investigate or prosecute any alcohol or drug abuse patient.[facility] HospitalIn the event this information is protected by the Federal Confidentiality of Alcohol and Drug Abuse Patient Records regulations: The Federal rules restrict any use of the information to criminally investigate or prosecute any alcohol or drug abuse patient.[facility] HospitalIn the event this information is protected by the Federal Confidentiality of Alcohol and Drug Abuse Patient Records regulations: The Federal rules restrict any use of the information to criminally investigate or prosecute any alcohol or drug abuse patient.[facility] HospitalIn the event this information is protected by the Federal Confidentiality of Alcohol and Drug Abuse Patient Records regulations: The Federal rules restrict any use of the information to criminally investigate or prosecute any alcohol or drug abuse patient.[facility] Reason for Visit (unrecogniz ed section and content) Reason Comments Follow Up post hernia surgery Reason Comments Follow Up hernia Reason Onset [...] Specialty Diagnoses / Procedures Referred By Julian t Referred To Contact Urology Diagnoses Benign prostatic hyperplasia with urinary obstruction Erectile dysfunction, unspecified erectile dysfunction type Procedures CONSULT TO UROLOGY OFFICE/OUTPATIENT NEW HIGH MDM 60-74 MINUTES Vadim Deras MD [address] [place] [address] Referral ID Status Reason Start Date Expiration Date V isits Requested Visits Authorized [id number] Closed PCP Requested Referral 08/16/2022 08/16/2023 1 1 Reason Comments Eye Problem Pt reported (LT) eye irritation, onset AM denied pain, visual changes. Reason Comments Follow Up Erectile Dysfunction Overactive Bladder Reason Comments Consult Hernia repair Reason Comments Post Op Follow Up Hernia repair Lawrence Reason Onset Date Comments Refill Request 04/01/2023 Specialty Diagnoses / Procedures Referred By Julian t Referred To Contact NEUROSURGERY Diagnoses SAH (subarachnoid hemorrhage) (HCC) Procedures OFFICE/OUTPATIENT ESTABLISHED MOD MDM 30 MIN Consult, test, treat Nicolás Junior MD [address] [facility] [place] [address] [facility] [address] [facility] [place] [address] Referral ID Status Reason Start Date Expiration Date Visits Requested Visits Authorized [id number] Authorized OON/Self Pay Override 07/01/2023 06/30/2024 99 99 Reason Comments Established Patient Follow Up Reason Comments home health calling Reason Comments Orders Reason Onset Date Comments Refill Request 09/09/2023 Reason Comments Weakness Reason Comments F/U 3 Month Reason Onset Date Comments Refill Request 01/30/2024 Reason Comments Opened In Error Reason Comments Medicare Wellness Exam F/U 3 Month Reason Comments Medication Problem Reason Comments New Patient Gait abnormality, bi lateral leg weakness Specialty Diagnoses / Procedures Referred By Contac t Referred To Contact Neurology / NEUROLOGY Diagnoses Gait abnormality Leg weakness, bilateral Procedures CONSULT TO NEUROLOGY OFFICE/OUTPATIENT NEW HIGH [facility] 60 MINUTES Vadim Deras MD [address] [place] [address] Neur Adult [facility] [address] [place] [address] Referral ID Status Reason Start Date Expiration Date V isits Requested Visits Authorized [id number] Closed PCP Requested Referral 07/01/2023 06/30/2024 1 1 Reason Onset Date Comments Allied Health Visit 04/02/2024 Medication A dherence Outreach Specialty Diagnoses / Procedures Referred By Contac t Referred To Contact MR IMAGING Diagnoses Spinal stenosis of lumbar region without neurogenic claudication Procedures MRI LUMBAR SPINE WO IVCON MRI SPINAL CANAL LUMBAR W/O CONTRAST MATERIAL Bonifacio Ledbetter Jr., MD [address] [facility] [address] [place] [address] [place] [address] Referral ID Status Reason Start Date Expiration Date V isits Requested Visits Authorized [id number] Closed Auto-Generate d Referral 03/13/2024 04/12/2025 1 1 Reason Comments Patient Question Reason Comments Established Patient Follow up for MRI, p t at [facility] for therapy for spinal stenosis, pt fell in May 2024. Specialty Diagnoses / Procedures Referred By Contac t Referred To Contact Neurology / NEUROLOGY Diagnoses Encounter for follow-up examination after completed treatment for conditions other than malignant neoplasm follow up after MRI, 03/13 [facility]- MRI *3 ordered (done) Procedures OFFICE/OUTPATIENT ESTABLISHED SF MDM 10 MIN OFFICE/OUTPATIENT ESTABLISHED LOW MDM 20 MIN OFFICE/OUTPATIENT ESTABLISHED MOD MDM 30 MIN OFFICE/OUTPATIENT ESTABLISHED HIGH MDM 40 MIN EST NI PATIENT Vadim Deras MD [address] [place] [address] Bonifacio Ledbetter Jr., MD [address] [place] [address] Referral ID Status Reason Start Date Expiration Date Visits Re quested Visits Authorized [id number] Closed 06/03/2024 06/30/2024 1 1 Reason Comments Forms Reason Comments Follow Up Specialty Diagnoses / Procedures Referred By Contac t Referred To Contact Neurology / NEUROLOGY Diagnoses Unspecified abnormalities of gait and mobility est gait abn, BLE weakness, speech, ataxia, spinal stenosis, f/u 4-8 wks per [facility], 60 min slot, [facility] 06/26/24 Procedures OFFICE/OUTPATIENT ESTABLISHED HIGH MDM 40 MIN NEW NI GENERAL/SPECIALTY Vadim Deras MD [address] [place] [address] Phone: tel: fax: Bonifacio Ledbetter Jr., MD [address] [place] [address] Phone: tel: fax: Referral ID Status Reason Start Date Expiration Date Visits Re quested Visits Authorized [id number] Closed 09/04/2024 06/30/2025 1 1 Reason Comments Patient Update Reason Comments Established Patient BPH, OAB Specialty Diagnoses / Procedures Referred By Contac t Referred To Contact Urology Diagnoses Benign prostatic hyperplasia with urinary frequency Nocturia Procedures CONSULT TO UROLOGY OFFICE/OUTPATIENT NEW HIGH MDM 60 MINUTES Bonifacio Ledbetter Jr., MD [address] [place] [address] Phone: tel: fax: Referral ID Status Reason Start Date Expiration Date V isits Requested Visits Authorized [id number] Closed PCP Requested Referral 09/04/2024 09/04/2025 1 1 Care Teams (unrecognized sec tion and content) Corporate Counsel Relationship Specialty Start Date End Date Vadim Deras MD [address] [place] [phone] PCP - General Internal Medicine 07/23/16 Corporate Counsel Relationship Specialty Start Date End Date Vadim Deras MD [address] [place] [id number] PCP - General Internal Medicine 07/23/16 Corporate Counsel Relationship Specialty Start Date End Date Vadim Deras MD [address] [place] [phone] PCP - General Internal Medicine 07/23/16 Corporate Counsel Relationship Specialty Start Date End Date Vadim Deras MD [address] [place] [phone] PCP - General Internal Medicine 07/23/16 Corporate Counsel Relationship Specialty Start Date End Date Vadim Deras MD [address] [place] [phone] PCP - General Internal Medicine 07/23/16 Corporate Counsel Relationship Specialty Start Date End Date Vadim Deras MD [address] [place] [id number] PCP - General Internal Medicine 07/23/16 Corporate Counsel Relationship Specialty Start Date End Date Vadim Deras MD [address] [place] [id number] PCP - General Internal Medicine 07/23/16 Corporate Counsel Relationship Specialty Start Date End Date Vadim Deras MD [address] [place] [address] PCP - General Internal Medicine 07/23/16 Corporate Counsel Relationship Specialty Start Date End Date Vadim Deras MD [address] [place] [address] PCP - General Internal Medicine 07/23/16 Corporate Counsel Relationship Specialty Start Date End Date Vadim Deras MD [address] [place] [address] PCP - General Internal Medicine 07/23/16 Corporate Counsel Relationship Specialty Start Date End Date Vadim Deras MD [address] [place] [address] PCP - General Internal Medicine 07/23/16 Corporate Counsel Relationship Specialty Start Date End Date Vadim Deras MD [address] [place] [address] PCP - General Internal Medicine 07/23/16 Corporate Counsel Relationship Specialty Start Date End Date Vadim Deras MD [address] [place] [address] PCP - General Internal Medicine 07/23/16 Team Status: Active Member Role Status Dates Dr. Vadim Deras MD Family Provider Active Dr. Vadim Deras MD Primary Care Provider Active Team Status: Inactive Member Role Status Dates Dr. Vadim Deras MD Primary Care Provider Active Dr. Gordon Hill DO Emergency Provider Active Team Status: Active Member Role Status Dates Dr. Vadim Deras MD Primary Care Provider Active Dr. Mirian Farris DO Admit Pr ovider, Attending Provider, Other Provider Active Team Status: Inactive Member Role Status Dates Dr. Vadim Deras MD Primary Care Provider Active Dr. Gordon Hill DO Attending Provider, [place] Active Team Status: Inactive Member Role Status Dates Dr. Vadim Deras MD Primary Care Provider Active Dr. Mirian Farris DO Admit Provider, Attend ing Provider Active Corporate Counsel Relationship Specialty Start Date End Date Vadim Deras MD [address] [place] [address] PCP - General Internal Medicine 07/23/16 Corporate Counsel Relationship Specialty Start Date End Date Vadim Deras MD [address] [place] [address] PCP - General Internal Medicine 07/23/16 Corporate Counsel Relationship Specialty Start Date End Date Vadim Deras MD [address] [place] [address] PCP - General Internal Medicine 07/23/16 Corporate Counsel Relationship Specialty Start Date End Date Vadim Deras MD [address] [facility], [place] [address] PCP - General Internal Medicine 07/23/16 Team Status: Inactive Member Role Status Dates Dr. Vadim Deras MD Primary Care Provider Active [facility] Attending Provider Acti ve Team Status: Active Member Role Status Dates Dr. Vadim Deras MD Primary Care Provider Active Dr. Nishi LITTLEJOHN MD Attending Provider Active Team Status: Inactive Member Role Status Dates Dr. Vadim Deras MD Primary Care Provider Active Dr. Nishi LITTLEJOHN MD Attending Provider Active Team Status: Inactive Member Role Status Dates Dr. Vadim Deras MD Primary Care Provider Active Dr. Nishi LITTLEJOHN MD Attending Provider, Referring Provider Active Corporate Counsel Relationship Specialty Start Date End Date Vadim Deras MD [address] [place] [address] PCP - General Internal Medicine 07/23/16 Corporate Counsel Relationship Specialty Start Date End Date Vadim Deras MD [address] [facility] [place] [address] PCP - General Internal Medicine 07/23/16 Corporate Counsel Relationship Specialty Start Date End Date Vadim Deras MD [address] [facility] [place] [address] PCP - General Internal Medicine 07/23/16 Corporate Counsel Relationship Specialty Start Date End Date Vadim Deras MD [address] [facility] [place] [address] PCP - General Internal Medicine 07/23/16 Corporate Counsel Relationship Specialty Start Date End Date Vadim Deras MD [address] [place] [address] PCP - General Internal Medicine 07/23/16 Corporate Counsel Relationship Specialty Start Date End Date Vadim Deras MD [address] [facility] [place] [address] PCP - General Internal Medicine 07/23/16 Corporate Counsel Relationship Specialty Start Date End Date Vadim Deras MD [address] [facility] [place] [address] PCP - General Internal Medicine 07/23/16 Corporate Counsel Relationship Specialty Start Date End Date Vadim Deras MD [address] [place] [address] PCP - General Internal Medicine 07/23/16 Corporate Counsel Relationship Specialty Start Date End Date Vadim Deras MD [address] [facility] [place] [address] PCP - General Internal Medicine 07/23/16 Corporate Counsel Relationship Specialty Start Date End Date Vadim Deras MD [address] [facility] [place] [address] PCP - General Internal Medicine 07/23/16 Corporate Counsel Relationship Specialty Start Date End Date Vadim Deras MD [address] [facility] [place] [address] PCP - General Internal Medicine 07/23/16 Corporate Counsel Relationship Specialty Start Date End Date Vadim Deras MD [address] [facility] [place] [address] PCP - General Internal Medicine 07/23/16 Corporate Counsel Relationship Specialty Start Date End Date Vadim Deras MD [address] [facility] [place] [address] PCP - General Internal Medicine 07/23/16 Delicia Kaye, [employer] [address] [facility] [place] [address] [employer] Internal Medicine 06/08/24 Corporate Counsel Relationship Specialty Start Date End Date Vadim Deras MD [address] [facility] [place] [address] PCP - General Internal Medicine 07/23/16 Delicia Kaye, [employer] [address] [facility] [place] [address] [employer]er Internal Medicine 06/08/24 Corporate Counsel Relationship Specialty Start Date End Date Vadim Deras MD [address] [place], [place] [address] PCP - General Internal Medicine 07/23/16 Delicia Kaye, [employer] [address] [place], [place] [id number] [employer]er Internal Medicine 06/08/24 Corporate Counsel Relationship Specialty Start Date End Date Vadim Deras MD [address] [place], [place] [address] PCP - General Internal Medicine 07/23/16 Delicia Kaye, [employer] [address] [place], [place] [id number] [employer]ling [employer]er Internal Medicine 06/08/24 Corporate Counsel Relationship Specialty Start Date End Date Vadim Deras MD [address] [place], [place] [id number] PCP - General Internal Medicine 07/23/16 Delicia Kaye, [employer] [address] [place], [place] [address] [employer]er Internal Medicine 06/08/24 Team Status: Active Member Role Status Dates Dr. Vadim Deras MD Primary Care Provider Active Team Status: Inactive Member Role Status Dates Dr. Vadim Deras MD Primary Care Provider Active Start: October 05, 2024 End: October 05, 2024 Dr. Nishi LITTLEJOHN MD Attending Provider Active Start: October 05, 2024 End: October 05, 2024 Team Status: Active Member Role Status Dates Dr. Vadim Deras MD Primary Care Provider Active Start: November 27, 2024 Dr. Nishi LITTLEJOHN MD Attending Provider Active Start: November 27, 2024 Team Status: Inactive Member Role Status Dates Dr. Vadim Deras MD Primary Care Provider Active Start: November 30, 2024 End: November 30, 2024 Kelton Valdivia MD Referring Provider Active Star t: November 30, 2024 End: November 30, 2024 Kelton Valdivia MD Emergency Provider Active Star t: November 30, 2024 End: November 30, 2024 Goals (unrecognized section and content) Goals may be documented in a n alternate sectionGoals may be documented in an alternate section FOR RECORDS PERTAINING TO PATIENTS WHO ARE [...] BE BASED ON THE PRIMARY CLINICAL RECORDS. [facility] [employer] provides no warranty or guarantee of the accuracy or completeness of information in this document.
[2024-12-23 09:05] LABS: Absolute Lymphocyte Count 0.98 X10^3/uL (0.83-4.51); Absolute Neutrophil Count 2.4 X10^3/uL (2.0-7.7); Basophil# 0.01 X10^3/uL; Basophil% 0.2 % (0-1); Hematocrit 42.3 % (40-54); Hemoglobin 13.7 g/dL (13.0-16.5); Lymphocyte # 0.98 X10^3/ul (0.83-4.51); Lymphocyte % 20.3 % (19-41); Mean Corp Hgb Conc 32.4 g/dL (32-36); Mean Corpuscular Volume 92.6 fL (80-94); Mean Platelet Vol. 12.5 fl (6.2-12.0); Monocyte# 1.34 X10^3/uL; Monocyte% 27.7 % (0-10); NRBC Flagged by Analyzer 0 % (0-5); Neutrophil # 2.43 X10^3/uL (2.7-7.7); Neutrophil % 50.4 % (47-70); POSITIVE COUNT YES; Platelet Count 93 K/mm3 (150-450); RBC Distribution Width SD 47.4 fl (35.1-43.9); Red Blood Count 4.57 M/mm3 (4.6-6.2); White Blood Count 4.8 K/mm3 (4.4-11.0)
[2024-12-23 09:06] LABS: Differential Indicated SCAN CRITERIA MET
[2024-12-23 09:22] LABS: Anion Gap 9 (5-15); BUN 21 mg/dL (4-19); BUN/Creat Ratio 23.3 RATIO (10-20); Calcium,Total 8.9 mg/dL (7.6-11.0); Carbon Dioxide 28.4 mmol/L (21.0-32.0); Chloride 99 mmol/L (98-108); Creatinine, Serum 0.88 mg/dL (0.70-1.20); EST Glomerular Filtration Rate 83 (>60); Glucose 97 mg/dL (70-99); Potassium 3.9 mmol/L (3.3-5.1); Sodium Level 137 mmol/L (133-145)
[2024-12-23 09:39] LABS: Differential Comment SCANNED; Platelet Estimate MOD DEC (ADEQ)
== END ==
LOC: OLS.SWAL 04:00
PROVIDERS: PCP Internal Medicine; Referring Provider Internal Medicine; Visit Provider Internal Medicine
DX: Z91.81 History of falling (principal)
CPT/HCPCS: 36415; 80048; 85025

== ENCOUNTER → 2025-02-12 05:00 | Outpatient (REF) | payer MEDICARE, MEDICAID, SELFPAY ==
--- OUTSIDE RECORDS SUMMARY | 2025-02-12 04:00 | XMS RPT_ITS | CCD ---
Author Organization [facility] ion [facility] Care Team Providers Care Tool Adjuster Name Role Phone Vadim Deras MD Primary Care Provider Braeden, Dr. Fierro Primary Care Provider Kaleigh, Dr. Mirian Mccall Admit Provider Semenkirill, Dr. Mirian Mccall Attending Provider Kaleigh, Dr. Mirian Mccall Other Provider Vadim Deras MD Primary Care Provider [phone] Vadim Deras MD Primary Care Provider BONIFACIO VALDEZ Attending Unavailable VADIM DERAS Primary Care Unavailable BONIFACIO VALDEZ Attending Unavailable ONEAIL, LYNDA Referring Unavailable VADIM DERAS Primary Care Unavailable ONEAIL, LYNDA Referring Unavailable VADIM DERAS Primary Care Unavailable VERNON, NICOLÁS F Attending Unavailable VADIM DERAS Referring Unavailable BRAEDEN, VADIM Barcenas Primary Care Unavailable VADIM DERAS Primary Care Unavailable GIOVANNI DENTON Admitting Unavailable KADE GARRETT Attending Unavailable BONIFACIO VALDEZ Consulting Unavailable ANCAT, NICOLÁS F Referring Unavailable VADIM DERAS Primary Care Unavailable KHAYYAT, NICOLÁS F Attending Unavailable CHANCEYAT, NICOLÁS F Referring Unavailable BRAEDEN, VADIM Barcenas Primary Care Unavailable Vargas MICHELLE.Delicia BAGLEY Unavailable Unavailable Primary Care Provider Unavailbecca e VADIM DERAS Attending Unavailable VADIM DERAS Primary Care Unavailable DERAS, BRITTNEY Referring Unavailable DERAS, BRITTNEY Primary Care Unavailable DERAS, BRITTNEY Attending Unavailable DERAS, BRITTNEY Primary Care Unavailable DERAS, BRITTNEY Referring Unavailable DERAS, BRITTNEY Primary Care Unavailable LEDBETTER JR, BONIFACIO Brice Referring Unavailable DEMETRIO GILL Attending Unavailable DEARS, BRITTNEY Referring Unavailable LEDBETTER JR, BONIFACIO Brice Attending Unavailable DERAS, BRITTNEY Primary Care Unavailable LEDBETTER JR, BONIFACIO Brice Attending Unavailable DERAS, BRITTNEY Referring Unavailable DERAS, BRITTNEY Primary Care Unavailable LEDBETTER JR, BONIFACIO Brice Referring Unavailable DERAS, BRITTNEY Primary Care Unavailable LEDBETTER JR, BONIFACIO Brice Attending Unavailable DERAS, BRITTNEY Referring Unavailable DERAS, BRITTNEY Primary Care Unavailable Braeden RICH, Dr. Fierro Primary Care Provider Dr. Nishi Romero MD Attending Provider Unavailmadelin Valdivia MD, Kelton Referring Provider [phone] Kelton Valdivia MD Emergency Provider [phone] Nishi Mccracken Attending Unavailable Braeden, Vadim Primary Care Unavailable Nishi Mccracken Referring Unavailable Kenneya Nishi LITTLEJOHN Attending Unavailable Braeden, Vadim Primary Care Unavailable Kendall Dowling Attending Unavailable Jon Arce Admitting Unavailable Jon Arce Consulting Unavailable Braeden, Vadim Primary Care Unavailable Elroy Nunez Consulting Unavailable Kendall Dowling Consulting Unavailable Elroy Nunez Attending Unavailable Ton, Preston Chi Consulting Unavailable Ton, Preston Chi Admitting Unavailable Mirian Farris Attending Unavaila ekaterina Deras, Vadim Primary Care Unavailable Pierre Mcgee Attending Unavailbecca Deras, Vadim Primary Care Unavailable Jon Arce Admitting Unavailable Jon Arce Attending Unavailable Jon Arce Consulting Unavailable Braeden, Vadim Primary Care Unavailable Angdla Nishi LITTLEJOHN Referring Unavailable Angdla Nishi LITTLEJOHN Attending Unavailable Braeden, Vadim Primary Care Unavailable Kelton Valdivia Referring Unavailable Kelton Valdivia Attending Unavailable Braeden, Vadim Primary Care Unavailable Angdla Nishi LITTLEJOHN Referring Unavailable Gudla Nishi LITTLEJOHN Attending Unavailable Braeden, Vadim [facility] Un[facility] Nishi Mccracken Attending Unavailable Kendall Dowling Attending Unavailable Jon Arce Admitting Unavailable Jon Arce Consulting Unavailable [facility] Vadim [facility] Unavailable Elroy Nunez Consulting Unavailable Preston Camilo Chi Attending Unavailable Ton, Preston Chi Admitting Unavailable [facility] Vadim [facility] Unavailable Nishi Mccracken Attending Unavailable Deras, Vadim [facility] Unavailable Nishi Mccracken Attending Unavailable [facility] Unavailable Allergies Allergy Classification Reported Allergen(s) Allergy Type Date of Onset Reaction(s) Facility (20 sources) Clearasil Maximum Strength; Translations: [CLEARASIL MAXIMUM STRENGTH] Drug Intolerance 9 Swelling [facility] Work Phone: (5 sources) Salicylic Acid Drug Allergy 3 Swelling [facility] Comment on above: clearasil (20 sources) HMG-CoA reductase inhibitor; Translations: [KNVQUEW-PCI-NEK REDUCTASE INHIBITORS] Drug Intolerance 4 Myalgia [facility] Work Phone: (1 source) Salicylic Acid Drug Allergy 5 [facility] Repository Medications Current Medications Medication Drug Class(es) Dates Sig (Normalized) Sig (Original) aspirin 81 mg oral tablet (20 sources) Platelet Aggregation Inhibitor, Nonsteroidal Anti-inflammatory Drug Start: 05-15-2024 take 1 capsule by mouth once daily Aspirin 81 mg capsule Active 81 mg PO DAILY May 15, 2024 1:00am Start: 08-23-2023 take 1 tablet by andrew th once daily aspirin, enteric coated (ASPIRIN, ENTERIC [...] 1 tablet by andrew th once daily. carbidopa 50 mg / levodopa [...] Active docusate sodium 50 mg / sennosides, senior care 8.6 mg oral tablet (8 sources) Start: Sennosides-Docusate Sodium (Stimulant Laxative Plus) 8.6-50 mg Tablet Active 2 {tbl} PO TWICE A DAY May 29, 2024 1:00am take 1 capsule by mo [facility] twice daily at bedtime for constipation [...] Comment on above: Take 1 tablet by [facility] once daily. Food Supplemt, Lactose-Reduced (Ensure Plus [...] Comment on above: Take 1 capsule by [facility] once daily. lactobacillus acidophilus 1.5 mg oral capsule (20 sources) Start: 06-27-2023 Lactobacillus Acidophilus (Probiotic Acidophilus) 250 million cell capsule Active 500 NMA PO DAILY June 27, 2023 1:00am End: 08-23-2023 Lactobacillus acidophilus (P ROBIOTIC) 10 billion cell cap Take 1 capsule by mouth. 0 08/23/2023 Discontinued Comment on above: Take by mouth. Take 1 capsule by [facility]. lisinopril 40 mg oral tablet (20 sources) [...] 0 mEq tablet take 1 tablet by nadrew th twice daily potassium chloride ER (KLOR-CON) [...] Release 24hr Active 2 mg PO DAILY 1 May 29, 2024 1:00am Start: 04-27-2024 End: [...] Discontinued (Lack of Efficacy) polyethylene glycol 3350 30163 mg powder for oral solution (4 sources) [...] once daily. Take 2 tablets by mo uth daily at bedtime. Take 1 tablet by andrew th at bedtime sennosides, senior care 8.6 mg oral capsule (9 sources) Start: [...] Onset: 08-28-2005 07-10-2018 Chronic Diverticulosis and diverticulitis (20 sources) Diverticulosis of large intestine; Translations: [Diverticulosis of large intestine without perforation or abscess without bleeding] Onset: 07-24-2024 Resolved: 02-21-2024 07-12-2016 Chronic E Codes: Adverse effects of medical [...] muscles; Translations: [Facial weakness] 03-13-2024 Episodic Other connective tissue disease (1 source) Repeated falls; Translations: [Repeated falls] Onset: 12-23-2024 Episodic Other diseases of bladder and urethra [...] giddiness] Onset: 08-22-2007 Resolved: 07-12-2016 07-12-2016 Episodic E Codes: Fall (20 sources) Fall; Translations: [...] Test Name Value Interpretation Reference Range Facility Basic Metabolic Profile (BMP )on 12-23-2024 BUN/CRE 23.3 RATIO High 04-19 [facility] Comment on above: Order Comment: 119 Performed By: #### L 500.2500, L100.0500 #### [facility] [place], [address] Calcium [Mass/Vol] 8.9 mg/dL Normal 7.6-11.0 [facility] Comment on above: Order Comment: 119 Performed By: #### L 500.2500, L100.0500 #### [facility] [address] [place], [address] Chloride [Moles/Vol] 99 mmol/L Normal 98-108 [facility] Comment on above: Order Comment: 119 Performed By: #### L 500.2500, L100.0500 #### [facility] [address] [place], [address] CO2 [Moles/Vol] 28.4 mmol/L Normal 21.0-32.0 [facility] Comment on above: Order Comment: 119 Performed By: #### L 500.2500, L100.0500 #### [facility] [address] [place], [address] Creatinine [Mass/Vol] 0.88 mg/dL Normal 0.70-1.20 [facility] Comment on above: Order Comment: 119 Performed By: #### L 500.2500, L100.0500 #### [facility] [address] [place], [address] GAP 9 Normal 5-15 [facility] Comment on above: Order Comment: 119 Performed By: #### L 500.2500, L100.0500 #### [facility] [address] [place], [address] GFR/1.73 sq M.predicted among non-blacks MDRD (S/P/Bld) [Vol rate/Area] 83 mL/min/{1.73_m2} Normal >60 [facility] Comment on above: Order Comment: 119 Result Comment: mL/m in/1.73m2 CKD-EPI Creatinine Equation (2020) Performed By: #### L 500.2500, L100.0500 #### [facility] [address] [place], [address] Glucose [Mass/Vol] 97 mg/dL Normal 70-99 [facility] Comment on above: Order Comment: 119 Performed By: #### L 500.2500, L100.0500 #### [facility] [address] [place], [address] Potassium [Moles/Vol] 3.9 mmol/L Normal 3.3-5.1 [facility] Comment on above: Order Comment: 119 Performed By: #### L 500.2500, L100.0500 #### [facility] [address] [place], [address] Sodium [Moles/Vol] 137 mmol/L Normal 133-145 [facility] Comment on above: Order Comment: 119 Performed By: #### L 500.2500, L100.0500 #### [facility] [address] [place], [address] Urea nitrogen [Mass/Vol] 21 mg/dL High 4-19 [facility] Comment on above: Order Comment: 119 Performed By: #### L 500.2500, L100.0500 #### [facility] [address] [place], [address] CBC W/Diff, Automatedon - PLT EST MOD DEC Normal ADEQ [facility] Comment on above: Order Comment: 119 Performed By: #### L 500.2500, L100.0500 #### [facility] [address] [place], [address] SMEAR COMMENT SCANNED Normal [facility] Comment on above: Order Comment: 119 Performed By: #### L 500.2500, L100.0500 #### [facility] [address] [place], [address] CNPNon 12-09-2024 [facility] Telephone (FVUROBrett) STACYDENIZ ([id number]) 1935 M Date Time Provider Department 12/09/24 DEMETRIO GILL During your visit today, we recorded the following information about you: Demetrio Gill MD 12/09/2024 10:48 AM Signed Called his sister Gerri and discussed about the treatment plan. Will keep Cialis and Gemtesa for now and add Flomax to the treatment regimen. Discussed about Interstim and Botox. Family not interested. Demetrio Gill MD. Genitourinary Medicine and Men's Health Staff. Formerly [facility], [facility] [place] [facility] Allergies As of Date: 12/09/2024 Noted Allergy Reaction [id number]-NNS REDUCTASE INHIBIT*08/23/2023 17 - Myalgia Comments: Weakess, falls CLEARASIL MAXIMUM STRENGTH 09/16/2018 7 - Swelling Date Reviewed: 10/12/2024 Reviewed by: Michelle Redd, RN - Fully Assessed Primary Visit Diagnosis:BPH [...] Encounter Status:Closed by DEMETRIO GILL on 12/09/24 [facility] Brain/Head without Contrasto n 11-30-2024 Brain/Head without Contrast [facility] Imaging Services [address] [place] [address] Brain/Head without Contrast MR#: [id number] Acct: [id number] Name: STACYDENIZ Echavarria Rep #: [id number] : 1935 M 89 From: Richa Richey PCP: Dr. Vadim Deras MD Status: REG ER Study: Brain/Head without Contrast Date of Exam: 08/25 Exam# [id number] Ordering Dr: Kelton Valdivia MD ADDENDUM by Dr. Richa Conti MD on 11/30/[address] Valdivia was notified by Richa Conti at 3:15pm EST on 11/30/24 Reading Location: [id number] 11/30/24 1533 Date cc: Dr. Kelton Valdivia [...] air cells may reflect mastoiditis. Reading Location: [facility] CC: Dr. Kelton Valdivia MD; Dr. Vadim Deras MD Chief Revenue Officer: Signed Normal [facility] Emergency Department Summary on 11-30-2024 Emergency Department Summary [facility] Medical Records Department [address] [place] [address] Emergency Department Summary 11/30/24 MR#: [id number] Acct: [id number] Name: DENIZ KUMAR Rep #: [id number] : 1935 89 From: Kelton Valdivia MD [...] consciousness. No other injuries. Tetanus Immunization: Unknown [facility] Medical History Insomnia Elevated troponin Spinal stenosis TIA (transient ischemic attack) Diverticulosis Nonallergic rhinitis BPH (benign prostatic hyperplasia) Hypercholesterolemia Hypertension Home Medications ???Medication ???Instructions ???Recorded ???Last Taken ???Type finasteride 5 mg tablet 5 mg PO DAILY Bladder 06/21/23 History melatonin 3 mg capsule 3 mg PO DAILY Sleep 06/21/2305/14 History Lactobacillus acidophilus 250 500 mmu cells PO DAILY Probiotic 1 08/28/22 Unknown History million cell capsule (Probiotic Acidophilus) [...] be o (more content not included)... Normal [facility] Spine Cervical without Contr ason 11-30-2024 Spine Cervical without Contras [facility] Imaging Services [address] [place] [address] Spine Cervical without Contras MR#: [id number] Acct: [id number] Name: DENIZ KUMAR Rep #: [id number] : 1935 M 89 From: Richa Richey PCP: Dr. Vadim Deras MD Status: REG ER Study: Spine Cervical without Contras Date of Exam: 0 11/30/24 Exam# [id number] Ordering Dr: Kelton Valdivia MD PROCEDURE: SPINE [...] Moderate to severe multilevel degenerative changes with [id number] multilevel foraminal stenosis due to facet hypertrophy [...] the cervical spine as above. Reading Location: [facility] CC: Dr. Kelton Valdivia MD; Dr. Vadim Deras MD Chief Revenue Officer: Signed Normal [facility] Urine Cultureon 11-29-2024 [facility] 119 Staphylococcus aureus Berino Count >100,000 Staphylococcus aureus: REACTION cefOXitin Susc Islt Doxycycline Islt CHELA <=0.5 S Clindamycin.induced Susc Islt NEG Gentamicin Islt CHELA <=0.5 S Linezolid Islt CHELA 2 S Moxifloxacin Islt CHELA <=0.25 S Nitrofurantoin Islt CHELA <=16 S Oxacillin Susc Islt <=0.25 S Tetracycline Islt CHELA <=1 S TMP SMX Islt CHELA <=10 S Vancomycin Islt CHELA <=0.5 S Normal [facility] Comment on above: Performed By: #### L 500.2500, L100.0500, L501.5200 #### [facility] [place], [address] Anion gap in Serum or Plasma Ordered By: Nishi Romero on 11-27-2024 Anion gap [Moles/Vol] 9 mmol/L 11-12 [facility] BUN/creatinine ratioOrdered By: Nishi Romero on 11-27-2024 Urea nitrogen/Creatinine [Mass ratio] 26.6 mg/mg High 04-19 [facility] Basic Metabolic Profile (BMP )on 11-27-2024 BUN/CRE 26.6 RATIO High 04-19 [facility] Comment on above: Order Comment: 119 Performed By: #### L 500.2500, L100.0500 #### [facility] [address] [place], [address] Calcium [Mass/Vol] 9.1 mg/dL Normal 7.6-11.0 [facility] Comment on above: Order Comment: 119 Performed By: #### L 500.2500, L100.0500 #### [facility] [address] [place], [address] Chloride [Moles/Vol] 103 mmol/L Normal 98-108 [facility] Comment on above: Order Comment: 119 Performed By: #### L 500.2500, L100.0500 #### [facility] [address] [place], [address] CO2 [Moles/Vol] 25.3 mmol/L Normal 21.0-32.0 [facility] Comment on above: Order Comment: 119 Performed By: #### L 500.2500, L100.0500 #### [facility] [address] [place], [address] Creatinine [Mass/Vol] 0.91 mg/dL Normal 0.70-1.20 [facility] Comment on above: Order Comment: 119 Performed By: #### L 500.2500, L100.0500 #### [facility] [address] [place], [address] GAP 9 Normal - [facility] Comment on above: Order Comment: 119 Performed By: #### L 500.2500, L100.0500 #### [facility] [address] [place], [address] GFR/1.73 sq M.predicted among non-blacks MDRD (S/P/Bld) [Vol rate/Area] 81 mL/min/{1.73_m2} Normal >60 [facility] Comment on above: Order Comment: 119 Result Comment: mL/m in/1.73m2 CKD-EPI Creatinine Equation (2020) Performed By: #### L 500.2500, L100.0500 #### [facility] [address] [place], [address] Glucose [Mass/Vol] 81 mg/dL Normal 70-99 [facility] Comment on above: Order Comment: 119 Performed By: #### L 500.2500, L100.0500 #### [facility] [address] [place], [address] Potassium [Moles/Vol] 4.0 mmol/L Normal 3.3-5.1 [facility] Comment on above: Order Comment: 119 Performed By: #### L 500.2500, L100.0500 #### [facility] [address] [place], [address] Sodium [Moles/Vol] 137 mmol/L Normal 133-145 [facility] Comment on above: Order Comment: 119 Performed By: #### L 500.2500, L100.0500 #### [facility] [address] [place], [address] Urea nitrogen [Mass/Vol] 24 mg/dL High 4-19 [facility] Comment on above: Order Comment: 119 Performed By: #### L 500.2500, L100.0500 #### [facility] [address] [place], [address] Carbon dioxide, total [Moles /volume] in Central venous bloodOrdered By: Nishi Romero on 11-27-2024 CO2 [Moles/Vol] 25.3 mmol/L 21.0-32.0 [facility] Chloride assayOrdered By: Marlon Romero on 11-27-2024 Chloride [Moles/Vol] 103 mmol/L 98-108 [facility] Glomerular filtration rate ( GFR) estimation/1.73 sq m using serum, plasma, or whole bOrdered By: Nishi Romero on 11-27-2024 GFR/1.73 sq M.predicted among non-blacks MDRD (S/P/Bld) [Vol rate/Area] 81 mL/min/{1.73_m2} >60 [facility] Comment on above: mL/min/1.73m2 CKD-EP I Creatinine Equation (2020) Potassium measurement (mass/ volume)Ordered By: Nishi Romero on 11-27-2024 Potassium (Unsp spec) [Mass/Vol] 4.0 mmol/L 3.3-5.1 [facility] Serum creatinine measurement (mass/volume)Ordered By: Nishi Romero on 11-27-2024 Creatinine [Mass/Vol] 0.91 mg/dL 0.70-1.20 [facility] Serum glucose measurement (m ass/volume)Ordered By: Nishi Romero on 11-27-2024 Glucose [Mass/Vol] 81 mg/dL 70-99 [facility] Serum or plasma calcium sharon urement (mass/volume)Ordered By: Nishi Romero on 11-27-2024 Calcium [Mass/Vol] 9.1 mg/dL 7.6-11.0 [facility] Serum or plasma urea nitroge n measurement (mass/volume)Ordered By: Nishi Romero on 11-27-2024 Urea nitrogen [Mass/Vol] 24 mg/dL High 4-19 [facility] Sodium levelOrdered By: Evelyn Romero on 11-27-2024 Sodium [Moles/Vol] 137 mmol/L 133-145 [facility] Urinalysis, Completeon 11-27 RBC > 100 SEEN Normal 0-5 [facility] Comment on above: Order Comment: 208.1 Performed By: #### L 500.2500, L100.0500, L501.5200 #### [facility] [address] [place], [address] WBC 10-25 SEEN Normal 0-5 [facility] Comment on above: Order Comment: 208.1 Performed By: #### L 500.2500, L100.0500, L501.5200 #### [facility] [address] [place], [address] BACTERIA 0 SEEN Normal None Seen [facility] Comment on above: Order Comment: 208.1 Performed By: #### L 500.2500, L100.0500, L501.5200 #### [facility] [address] [place], [address] EPI,SQUAMOUS 0 SEEN Normal 0-5 [facility] Comment on above: Order Comment: 208.1 Performed By: #### L 500.2500, L100.0500, L501.5200 #### [facility] [address] [place], [address] Mucus Ql (Urine sed) 0 SEEN Normal [facility] Comment on above: Order Comment: 208.1 Performed By: #### L 500.2500, L100.0500, L501.5200 #### [facility] [address] [place], [address] Bilirubin Test strip Ql (U)O rdered By: Nishi Romero on 11-26-2024 Bilirubin Ql (U) Negative Negative [facility] Ketones Test strip Ql (U)Ord ered By: Nishi Romero on 11-26-2024 Ketones Ql (U) Negative Negative [facility] Microscopic analysis of urin e for red blood cells (RBC)Ordered By: Nishi Romero on 11-26-2024 Microscopic analysis of urine for red blood cells (RBC) > 100 SEEN /hpf 0-5 [facility] Mucus LM Ql (Urine sed)Order ed By: Nishi Romero on 11-26-2024 Mucus Ql (Urine sed) 0 SEEN /hpf [facility] Nitrite Test strip Ql (U)Ord ered By: Nishi Romero on 11-26-2024 Nitrite Ql (U) Negative Negative [facility] Protein Test strip Ql (U)Ord ered By: Nishi Romero on 11-26-2024 Protein Ql (U) 100 mg/dl High Negative [facility] Squamous epithelial cells de tection in urine sediment by light microscopyOrdered By: Nishi Romero on 11-26-2024 Epithelial cells.squamous LM Ql (Urine sed) 0 SEEN /hpf 0-5 [facility] Urine clarityOrdered By: Yves Romero on 11-26-2024 Clarity (U) Turbid Clear [facility] Urine color determinationOrd ered By: Nishi Romero on 11-26-2024 Color (U) Yellow Yellow [facility] Urine cultureOrdered By: Yves Romero on 11-26-2024 Bacteria identified Cx Nom (U) Staphylococcus aureus Abnormal [facility] Urine glucose detectionOrder ed By: Nishi Romero on 11-26-2024 Glucose Ql (U) Normal mg/dl Normal [facility] Urine leukocyte esterase det ection by dipstickOrdered By: Nishi Romero on 11-26-2024 Leukocyte esterase Test strip Ql (U) 100 /ul High Negative [facility] Urine pHOrdered By: Nishi reese on 11-26-2024 pH (U) 7.0 [pH] 5.0 - 8.0 [facility] Urine sediment bacteria coun t by microscopy (number/high power field)Ordered By: Nishi Romero on 11-26-2024 Bacteria LM.HPF (Urine sed) [#/Area] 0 /[HPF] None Seen [facility] Urine specific gravity measu rementOrdered By: Nishi Romero on 11-26-2024 Specific gravity (U) [Rel density] 1.010 1.002-1.030 [facility] Urine urobilinogen measureme ntOrdered By: Nishi Romero on 05-29-2025 Urobilinogen Ql (U) Normal mg/dl Normal [facility] White blood cell countOrdere d By: Nishi Fryedvinmadelin on 11-26-2024 White blood cell count 10-25 SEEN /hpf 0-5 [facility] CNOVon 10-12-2024 CNOV Office Visit (UROLST ) STACYDENIZ ([id number]) 1935 M Date Time Provider Department 10/12/24 10:45 AM DEMETRIO GILL UROLST During your visit today, we recorded the following information about you: Michelle Redd RN 10/12/2024 1:02 PM Signed PVR 0 Demetrio Gill MD 10/12/2024 1:02 PM Signed [facility] MALE PATIENT - HISTORY AND PHYSICAL EXAMINATION PATIENT: Dneiz Echavarria Stacy (89 year old) PCP: No primary care [...] mirabegron (M (more content not included)... Normal [facility] UA DIP, URINE (POC)on 2024 BILIRUBIN UA (POCT) Negative Negative [facility] CLARITY UA (POCT) Clear [facility] COLOR UA (POCT) Dark yellow [facility] GLUCOSE UA (POCT) Negative Negative mg/dL [facility] [facility] Hemoglobin Ql (U) Negative Negative [facility] Interpretation and review of laboratory results Abnormal [facility] KETONE UA (POCT) Trace Negative mg/dL [facility] LEUKOCYTES UA (POCT) Negative Negative [facility] NITRITE UA (POCT) Negative Negative [facility] PH UA (POCT) 6.5 4.5 - 8.0 [facility] Protein Ql (U) 100 mg/dL Abnormal Negative [facility] SPECIFIC GRAVITY UA (POCT) 1.02 1.005 - 1.030 [facility] UROBILINOGEN UA (POCT) 1 Gema l E.U./dL [facility] Location:[facility], [address], [place], [address] [facility] POINT OF CARE [facility] Absolute lymphocyte countOrd ered By: Nishi Romero on 10-05-2024 Lymphocytes Auto (Unsp spec) [#/Vol] 1.21 10*3/uL 0.83-4.51 [facility] Absolute neutrophil countOrd ered By: Nishi Romero on 10-05-2024 Neutrophils (Bld) [#/Vol] 1.2 10*3/uL Low 2.0-7.7 [facility] Anion gap in Serum or Plasma Ordered By: Nishi Romero on 10-05-2024 Anion gap [Moles/Vol] 10 mmol/L 5-15 [facility] Automated lymphocyte count a s percentage of total leukocytesOrdered By: Nishi Romero on 10-05-2024 Lymphocytes/100 WBC Auto (Unsp spec) 34.3 % 19-41 [facility] BUN/creatinine ratioOrdered By: Nishi Romero on 10-05-2024 Urea nitrogen/Creatinine [Mass ratio] 25.3 mg/mg High 10-20 [facility] Basophil percentageOrdered B y: Nishi Romero on 10-05-2024 Basophils/100 WBC (Bld) 0.3 % 0-1 [facility] Bilirubin, totalOrdered By: Nsihi Romero on 10-05-2024 Bilirubin [Mass/Vol] 0.68 mg/dL 0.00-1.30 [facility] CBC W/Diff, Automatedon PLT EST SLT DEC Normal ADEQ [facility] Comment on above: Order Comment: 208.1 Performed By: #### L 500.2500, L100.0500, L501.5200 #### [facility] [address] [place], [address] Carbon dioxide, total [Moles /volume] in Central venous bloodOrdered By: Nishi Romero on 10-05-2024 CO2 [Moles/Vol] 22.4 mmol/L 21.0-32.0 [facility] Chloride assayOrdered By: Marlon Romero on 10-05-2024 Chloride [Moles/Vol] 106 mmol/L 98-108 [facility] Comprehensive Metabolic Prof ilon 10-05-2024 Albumin [Mass/Vol] 3.6 g/dL Normal 3.4-4.8 [facility] Comment on above: Order Comment: 208.1 Performed By: #### L 500.2500, L100.0500, L501.5200 #### [facility] [address] [place], [address] Albumin/Globulin [Mass ratio] 1.4 {ratio} Normal 0.9-2.4 [facility] Comment on above: Order Comment: 208.1 Performed By: #### L 500.2500, L100.0500, L501.5200 #### [facility] [address] [place], [address] ALK PHOS 74 U/L Normal 40-129 [facility] Comment on above: Order Comment: 208.1 Performed By: #### L 500.2500, L100.0500, L501.5200 #### [facility] [address] [place], [address] ALT [Catalytic activity/Vol] 7 U/L Normal <=46 [facility] Comment on above: Order Comment: 208.1 Performed By: #### L 500.2500, L100.0500, L501.5200 #### [facility] [address] [place], [address] AST [Catalytic activity/Vol] 19 U/L Normal <=37 [facility] Comment on above: Order Comment: 208.1 Performed By: #### L 500.2500, L100.0500, L501.5200 #### [facility] [address] [place], [address] Bilirubin [Mass/Vol] 0.68 mg/dL Normal 0.00-1.30 [facility] Comment on above: Order Comment: 208.1 Performed By: #### L 500.2500, L100.0500, L501.5200 #### [facility] [address] [place], [address] BUN/CRE 25.3 RATIO High 10-20 [facility] Comment on above: Order Comment: 208.1 Performed By: #### L 500.2500, L100.0500, L501.5200 #### [facility] [address] [place], [address] Calcium [Mass/Vol] 8.9 mg/dL Normal 7.6-11.0 [facility] Comment on above: Order Comment: 208.1 Performed By: #### L 500.2500, L100.0500, L501.5200 #### [facility] [address] [place], [address] Chloride [Moles/Vol] 106 mmol/L Normal 98-108 [facility] Comment on above: Order Comment: 208.1 Performed By: #### L 500.2500, L100.0500, L501.5200 #### [facility] [address] [place], [address] CO2 [Moles/Vol] 22.4 mmol/L Normal 21.0-32.0 [facility] Comment on above: Order Comment: 208.1 Performed By: #### L 500.2500, L100.0500, L501.5200 #### [facility] [address] [place], [address] Creatinine [Mass/Vol] 0.96 mg/dL Normal 0.70-1.20 [facility] Comment on above: Order Comment: 208.1 Performed By: #### L 500.2500, L100.0500, L501.5200 #### [facility] [address] [place], [address] GAP 10 Normal 5-15 [facility] Comment on above: Order Comment: 208.1 Performed By: #### L 500.2500, L100.0500, L501.5200 #### [facility] [address] [place], [address] GFR/1.73 sq M.predicted among non-blacks MDRD (S/P/Bld) [Vol rate/Area] 76 mL/min/{1.73_m2} Normal >60 [facility] Comment on above: Order Comment: 208.1 Result Comment: mL/m in/1.73m2 CKD-EPI Creatinine Equation (2020) Performed By: #### L 500.2500, L100.0500, L501.5200 #### [facility] [address] [place], [address] Globulin (S) [Mass/Vol] 2.5 g/dL Normal 2.2-4.2 [facility] Comment on above: Order Comment: 208.1 Performed By: #### L 500.2500, L100.0500, L501.5200 #### [facility] [address] [place], [address] Glucose [Mass/Vol] 81 mg/dL Normal 70-99 [facility] Comment on above: Order Comment: 208.1 Performed By: #### L 500.2500, L100.0500, L501.5200 #### [facility] [address] [place], [address] Potassium [Moles/Vol] 4.2 mmol/L Normal 3.3-5.1 [facility] Comment on above: Order Comment: 208.1 Performed By: #### L 500.2500, L100.0500, L501.5200 #### [facility] [address] [place], [address] Sodium [Moles/Vol] 139 mmol/L Normal 133-145 [facility] Comment on above: Order Comment: 208.1 Performed By: #### L 500.2500, L100.0500, L501.5200 #### [facility] [address] [place], [address] T PROT 6.1 g/dL Normal 5.9-8.4 [facility] Comment on above: Order Comment: 208.1 Performed By: #### L 500.2500, L100.0500, L501.5200 #### [facility] [address] [place], [address] Urea nitrogen [Mass/Vol] 24 mg/dL High 4-19 [facility] Comment on above: Order Comment: 208.1 Performed By: #### L 500.2500, L100.0500, L501.5200 #### [facility] [address] [place], [place], [address] Eosinophil percentageOrdered By: Nishi Romero on 10-05-2024 Eosinophils/100 WBC (Bld) 0.6 % 0-5 [facility] Erythrocyte distribution wid th ratioOrdered By: Nishi Romero on 10-05-2024 Erythrocyte distribution width (RBC) [Ratio] 13.7 % 11.6-14.6 [facility] Erythrocyte distribution wid th standard deviationOrdered By: Nishi Romero on 10-05-2024 Erythrocyte distribution width (RBC) [Ratio] 46.7 fl High 35.1-43.9 [facility] Glomerular filtration rate ( GFR) estimation/1.73 sq m using serum, plasma, or whole bOrdered By: Nishi Romero on 10-05-2024 GFR/1.73 sq M.predicted among non-blacks MDRD (S/P/Bld) [Vol rate/Area] 76 mL/min/{1.73_m2} >60 [facility] Comment on above: mL/min/1.73m2 CKD-EP I Creatinine Equation (2020) Hematocrit Auto (Bld) [Volum e fraction]Ordered By: Nishi Romero on 10-05-2024 Hematocrit (Bld) [Volume fraction] 39.8 % Low 40-54 [facility] Hemoglobin measurementOrdere d By: Nishi Romero on 10-05-2024 Hemoglobin (Bld) [Mass/Vol] 13.1 g/dL 13.0-16.5 [facility] Immature granulocytes/100 WB C Auto (Bld)Ordered By: Nishi Romero on 10-05-2024 Immature granulocytes/100 WBC (Bld) 0.800 % 0.0-0.9 [facility] Comment on above: IG% - Immature Granu locytes (promyelocytes, myelocytes and metamyelocytes) > 1% indicates that a LEFT SHIFT is Present. Laboratory - Chemistry and C hemistry - challengeOrdered By: Nishi Romero on 10-05-2024 AST [Catalytic activity/Vol] 19 U/L <38 [facility] MCV (mean corpuscular volume ) determinationOrdered By: Nishi Romero on 10-05-2024 MCV (RBC) [Entitic vol] 92.6 fL 80-94 [facility] Magnesiumon 10-05-2024 Magnesium [Mass/Vol] 2.1 mg/dL Normal 1.5-2.2 [facility] Comment on above: Order Comment: 208.1 Performed By: #### L 500.2500, L100.0500, L501.5200 #### [facility] [address] [facility] [place], [address] Magnesium measurement (mass/ volume)Ordered By: Nishi Romero on 10-05-2024 Magnesium (Unsp spec) [Mass/Vol] 2.1 mg/dL 1.5-2.2 [facility] Mean corpuscular hemoglobin (MCH) determinationOrdered By: Nishi Romero on 10-05-2024 MCH (RBC) [Entitic mass] 30.5 pg 27.0-32.0 [facility] Mean corpuscular hemoglobin concentration (MCHC) determinationOrdered By: Nishi Romero on 10-05-2024 MCHC (RBC) [Mass/Vol] 32.9 g/dL 32-36 [facility] Mean platelet volume determi nationOrdered By: Nishi Romero on 10-05-2024 Platelet mean volume (Bld) [Entitic vol] 12.2 fL High 6.2-12.0 [facility] Monocyte percentageOrdered B y: Nishi Romero on 10-05-2024 Monocytes/100 WBC (Bld) 30.6 % High 0-10 [facility] Neutrophil percentageOrdered By: Nishi Romero on 10-05-2024 Neutrophils/100 WBC (Bld) 33.4 % Low 47-70 [facility] Nucleated red blood cell per centageOrdered By: Nishi Romero on 10-05-2024 Nucleated RBC/100 WBC (Bld) [Ratio] 0 % 0-5 [facility] PSA,Total - Annual Screenon 10-05-2024 PSA,TOT SCREEN 0.56 ng/mL Normal 0.02-4.00 [facility] Comment on above: Order Comment: 208.1 Result Comment: This test was performed using the [employer] tPSA method. Measured values of a patient??sample can vary depending on the testing procedure used. PSA values determined on patient samples by different testing procedures cannot be used interchangeably. If there is a change in PSA assays while monitoring therapy, sequential testing should be performed to confirm baseline values. Performed By: #### L 500.2500, L100.0500, L501.5200 #### [facility] [address] [place], [address] Platelet countOrdered By: Marlon Romero on 10-05-2024 Platelets (Bld) [#/Vol] 92 10*3/uL Low 150-450 [facility] Platelet estimateOrdered By: Nishi Romero on 10-05-2024 Platelets LM Ql (Bld) SLT DEC ADEQ [facility] Potassium measurement (mass/ volume)Ordered By: Nishi Romero on 10-05-2024 Potassium (Unsp spec) [Mass/Vol] 4.2 mmol/L 3.3-5.1 [facility] RBC Auto (Bld) [#/Vol]Ordere d By: Nishi Romero on 10-05-2024 RBC (Bld) [#/Vol] 4.30 10*6/uL Low 4.6-6.2 [facility] Serum creatinine measurement (mass/volume)Ordered By: Nishi Romero on 10-05-2024 Creatinine [Mass/Vol] 0.96 mg/dL 0.70-1.20 [facility] Serum globulin measurementOr dered By: Nishi Romero on 10-05-2024 Globulin (S) [Mass/Vol] 2.5 g/dL 2.2-4.2 [facility] Serum glucose measurement (m ass/volume)Ordered By: Nishi Romero on 10-05-2024 Glucose [Mass/Vol] 81 mg/dL 70-99 [facility] Serum or plasma alanine horan otransferase (ALT) measurementOrdered By: Nishi Romero on 10-05-2024 ALT [Catalytic activity/Vol] 7 U/L <47 [facility] Serum or plasma albumin sharon urement (mass/volume)Ordered By: Nishi Romero on 10-05-2024 Albumin [Mass/Vol] 3.6 g/dL 3.4-4.8 [facility] Serum or plasma albumin/glob ulin mass ratioOrdered By: Nishi Romero on 10-05-2024 Albumin/Globulin [Mass ratio] 1.4 {ratio} 0.9-2.4 [facility] Serum or plasma alkaline liam sphatase measurementOrdered By: Nishi Romero on 10-05-2024 ALP [Catalytic activity/Vol] 74 U/L 40-129 [facility] Serum or plasma calcium sharon urement (mass/volume)Ordered By: Nishi Romero on 10-05-2024 Calcium [Mass/Vol] 8.9 mg/dL 7.6-11.0 [facility] Serum or plasma urea nitroge n measurement (mass/volume)Ordered By: Nishi Romero on 10-05-2024 Urea nitrogen [Mass/Vol] 24 mg/dL High 4-19 [facility] Sodium levelOrdered By: Evelyn Romero on 10-05-2024 Sodium [Moles/Vol] 139 mmol/L 133-145 [facility] TSH DL <= 0.005 mIU/L QnOrde red By: Nsihi Romero on 10-05-2024 TSH Qn 1.650 uIU/mL 0.300-4.200 [facility] Thyroid Stim Hormone (TSH)on 10-05-2024 TSH 1.650 uIU/mL Normal 0.300-4.200 [facility] Comment on above: Order Comment: 208.1 Performed By: #### L 500.2500, L100.0500, L501.5200 #### [facility] [address] [place], [place], [address] Total proteinOrdered By: Yves Romero on 10-05-2024 Protein [Mass/Vol] 6.1 g/dL 5.9-8.4 [facility] Vitamin D,25 Hydroxyon 10-05 Vitamin D 25-OH 31.6 ng/mL Normal 30-100 [facility] Comment on above: Order Comment: 208.1 Result Comment: Christie min D Status Deficiency: <20 ng/mL (50nmol/L) Insufficiency: 20-30 ng/mL (50-75 nmol/L) Sufficiency: 30-100 ng/mL (75-250 nmol/L) Toxicity: >100 ng/mL (>250 nmol/L) Performed By: #### L 500.2500, L100.0500, L501.5200 #### [facility] [address] [place], [place], [address] White blood cell (WBC) count Ordered By: Nishi Romero on 10-05-2024 WBC (Bld) [#/Vol] 3.5 10*3/uL Low 4.4-11.0 [facility] Telephone (4CQ) DENIZ KUMAR ([id number]) 1935 M Date Time Provider Department 09/28/24 VADIM DERAS 4CQ During your visit today, we recorded the following information about you: Leanne Kauffman 09/28/2024 11:13 AM Signed Sister Gerri is calling to report patient is now residing at [facility] and seeing their provider, Patient admitted [facility] at the end of 2023 Gerri received a letter for a missed appointment and was not aware of that appt or she would have called to cancel. Rachel Khalil MA 09/28/2024 12:03 PM Signed Updated chart and removed pcp Rachel Khalil MA Allergies As of Date: 09/28/2024 Noted Allergy Reaction [id number] REDUCTASE INHIBIT*08/23/2023 17 - Myalgia Comments: Weakess, [...] Encounter Status:Closed by RACHEL KHALIL on 09/28/24 [facility] Allison 09-11-2024 [place] Telephone ([place]) DENIZ KUMAR ([id number]) 1935 M Date Time Provider Department 09/11/24 BONIFACIO LEDBETTER JR During your visit today, we recorded the following information about you: Claudia Das OCCA 09/11/2024 10:27 AM Signed Please contact patients sister, Gerri Barnes, at [phone] to assist with scheduling Consult for Urology. Thank you. ADRIAN Hall Mee Yen 09/11/2024 1:39 PM Signed 1st attempt lvm Claudia Das OCCA 09/17/2024 7:37 AM Signed In review of appointments, patient has been scheduled with Urology on 10/12/24. ADRIAN Hall Allergies As of Date: 09/11/2024 Noted Allergy Reaction [id number]-[id number]-CHR REDUCTASE INHIBIT*08/23/2023 17 - Myalgia Comments: Weakess, [...] Encounter Status:Closed by CLAUDIA DAS on 09/17/24 Normal [facility] CNOVon 09-04-2024 CNOV Office Visit (TOMY ) DENIZ KUMAR ([id number]) 1935 M Date Time Provider Department 09/04/24 [...] Total ( (more content not included)... [facility] Telephone ([facility]WS) DENIZ KUMAR ([id number]) 1935 M Date Time Provider Department 08/26/24 VADIM DERAS INTWS During your visit today, we recorded the following information about you: Rosetta Zamorano LPN 08/26/2024 2:48 PM Signed Provider Confirmation Form, Special Supplemental Benefits for the Chronically Ill (SSBCI) completed by Dr. Deras and faxed to [phone]. PCP marking - Meets the defined criteria. Rosetta Zamorano LPN Allergies As of Date: 08/26/2024 Noted Allergy Reaction [id number] REDUCTASE INHIBIT*08/23/2023 17 - Myalgia Comments: Weakess, [...] Status:Closed by ROSETTA ZAMORANO on 08/26/24 Normal [facility] Basic Metabolic Profile (BMP )on 07-13-2024 BUN/CRE 27.2 RATIO High 10-20 [facility] Comment on above: Performed By: #### L 500.2500, L100.0500, L501.5200 #### [facility] [address] [place], [place], [id number] CA,Total 8.9 mg/dL Normal 8.5-10.1 [facility] Comment on above: Performed By: #### L 500.2500, L100.0500, L501.5200 #### [facility] [address] [place], [address] Chloride [Moles/Vol] 106 mmol/L Normal 98-107 [facility] Comment on above: Performed By: #### L 500.2500, L100.0500, L501.5200 #### [facility] [address] [place], [address] CO2 [Moles/Vol] 27.0 mmol/L Normal 21.0-32.0 [facility] Comment on above: Performed By: #### L 500.2500, L100.0500, L501.5200 #### [facility] [address] [place], [address] Creatinine [Mass/Vol] 0.88 mg/dL Normal 0.70-1.30 [facility] Comment on above: Result Comment: The validity of the calculated GFR GFRAA in patients over 70 years has not been determined. Clinical correlation is essential. Performed By: #### L 500.2500, L100.0500, L501.5200 #### [facility] [address] [place], [address] EST GFR - AA 105 mL/min Normal >60 [facility] Comment on above: Result Comment: Afri can Belgian GFR Calc Performed By: #### L 500.2500, L100.0500, L501.5200 #### [facility] [address] [place], [address] GAP 5 Normal 5-15 [facility] Comment on above: Performed By: #### L 500.2500, L100.0500, L501.5200 #### [facility] [address] [place], [address] GFR/1.73 sq M.predicted among non-blacks MDRD (S/P/Bld) [Vol rate/Area] 87 mL/min/{1.73_m2} Normal >60 [facility] Comment on above: Result Comment: Non- GFR Calc Performed By: #### L 500.2500, L100.0500, L501.5200 #### [facility] [address] [place], [address] Glucose [Mass/Vol] 78 mg/dL Normal 74-106 [facility] Comment on above: Performed By: #### L 500.2500, L100.0500, L501.5200 #### [facility] [address] [place], [address] Potassium [Moles/Vol] 3.7 mmol/L Normal 3.5-5.1 [facility] Comment on above: Performed By: #### L 500.2500, L100.0500, L501.5200 #### [facility] [address] [place], [address] Sodium [Moles/Vol] 138 mmol/L Normal 136-145 [facility] Comment on above: Performed By: #### L 500.2500, L100.0500, L501.5200 #### [facility] [address] [place], [address] Urea nitrogen [Mass/Vol] 24 mg/dL High 7-18 [facility] Comment on above: Performed By: #### L 500.2500, L100.0500, L501.5200 #### [facility] [address] [place], [address] CBC-Complete Blood Cnt No Di ffon 07-13-2024 Erythrocyte distribution width (RBC) [Ratio] 13.6 % Normal 11.6-14.6 [facility] Comment on above: Performed By: #### L 500.2500, L100.0500 #### [facility] [address] [place], [address] Hematocrit (Bld) [Volume fraction] 41.0 % Normal 40-54 [facility] Comment on above: Performed By: #### L 500.2500, L100.0500 #### [facility] [address] [place], [address] Hemoglobin (Bld) [Mass/Vol] 13.4 g/dL Normal 13.0-16.5 [facility] Comment on above: Performed By: #### L 500.2500, L100.0500 #### [facility] [address] [place], [address] MCH (RBC) [Entitic mass] 29.5 pg Normal 27.0-32.0 [facility] Comment on above: Performed By: #### L 500.2500, L100.0500 #### [facility] [address] [place], [address] MCHC (RBC) [Mass/Vol] 32.7 g/dL Normal 32-36 [facility] Comment on above: Performed By: #### L 500.2500, L100.0500 #### [facility] [address] [place], [address] MCV (RBC) [Entitic vol] 90.3 fL Normal 80-94 [facility] Comment on above: Performed By: #### L 500.2500, L100.0500 #### [facility] [address] [place], [address] Platelet mean volume (Bld) [Entitic vol] 11.6 fL Normal 6.2-12.0 [facility] Comment on above: Performed By: #### L 500.2500, L100.0500 #### [facility] [address] [place], [address] Platelets (Bld) [#/Vol] 119 10*3/uL Low 150-450 [facility] Comment on above: Performed By: #### L 500.2500, L100.0500 #### [facility] [address] [place], [address] RBC (Bld) [#/Vol] 4.54 10*6/uL Low 4.6-6.2 [facility] Comment on above: Performed By: #### L 500.2500, L100.0500 #### [facility] [address] [place], [address] RDW SD 44.9 fl High 35.1-43.9 [facility] Comment on above: Performed By: #### L 500.2500, L100.0500 #### [facility] [address] [place], [address] WBC (Bld) [#/Vol] 5.8 10*3/uL Normal 4.4-11.0 [facility] Comment on above: Performed By: #### L 500.2500, L100.0500 #### [facility] [address] [place], [address] CNOVon 06-26-2024 CNOV Office Visit (TOMY ) DENIZ KUMAR ([id number]) 1935 M Date Time Provider Department 06/26/24 10:20 AM BONIFACIO LEDBETTER JR During your visit today, we recorded the following information about you: Pulse Blood pressure Weight 68/minute 132/85 98.2 kg Rosa Steiner LPN 06/28/2024 10:33 AM Signed Bonifacio Ledbetter Jr., [...] with limited history of what happened in [facility] and I do not have complete hospital records. Those records in EPIC reviewed. No mention of acute intracranial process or other acute finding on imaging. D/c to [facility]. Patient reporting bladder incontinence - [...] - w (more content not included)... Normal [facility] CBC W/Diff, Automatedon 12-1 Absolute Neut Normal 2.0-7.7 [facility] Comment on above: Result Comment: Canc elled via OM: Order cancelled - Patient discharged Performed By: #### L 500.4050, L100.0100 ####[facility] [address] [place], [address] HCT Normal 40-54 [facility] Comment on above: Result Comment: Canc elled via OM: Order cancelled - Patient discharged Performed By: #### L 500.4050, L100.0100 ####[facility] [address] [place], [address] HGB Normal 13.0-16.5 [facility] Comment on above: Result Comment: Canc elled via OM: Order cancelled - Patient discharged Performed By: #### L 500.4050, L100.0100 ####[facility] [address] [place], [address] MCH Normal 27.0-32.0 [facility] Comment on above: Result Comment: Canc elled via OM: Order cancelled - Patient discharged Performed By: #### L 500.4050, L100.0100 ####[facility] [address] [place], [address] MCHC Normal 32-36 [facility] Comment on above: Result Comment: Canc elled via OM: Order cancelled - Patient discharged Performed By: #### L 500.4050, L100.0100 ####[facility] [address] [place], [address] MCV Normal 80-94 [facility] Comment on above: Result Comment: Canc elled via OM: Order cancelled - Patient discharged Performed By: #### L 500.4050, L100.0100 ####[facility] [address] [place], [address] NEUT% Normal 47-70 [facility] Comment on above: Result Comment: Canc elled via OM: Order cancelled - Patient discharged Performed By: #### L 500.4050, L100.0100 ####[facility] [address] [place], [address] PLT Normal 150-450 [facility] Comment on above: Result Comment: Canc elled via OM: Order cancelled - Patient discharged Performed By: #### L 500.4050, L100.0100 ####[facility] [address] [place], [address] RBC Normal 4.6-6.2 [facility] Comment on above: Result Comment: Canc elled via OM: Order cancelled - Patient discharged Performed By: #### L 500.4050, L100.0100 ####[facility] [address] [place], [address] RDW CV Normal 11.6-14.6 [facility] Comment on above: Result Comment: Canc elled via OM: Order cancelled - Patient discharged Performed By: #### L 500.4050, L100.0100 ####[facility] [address] [place], [address] RDW SD Normal 35.1-43.9 [facility] Comment on above: Result Comment: Canc elled via OM: Order cancelled - Patient discharged Performed By: #### L 500.4050, L100.0100 ####[facility] [address] [place], [address] WBC Normal 4.4-11.0 [facility] Comment on above: Result Comment: Canc elled via OM: Order cancelled - Patient discharged Performed By: #### L 500.4050, L100.0100 ####[facility] [address] [place], [address] Comprehensive Metabolic Prof ilon 06-17-2024 ALB Normal 3.2-5.0 [facility] Comment on above: Result Comment: Canc elled via OM: Order cancelled - Patient discharged Performed By: #### L 500.4050, L100.0100 ####[facility] [address] [place], [address] ALK P Normal 45-117 [facility] Comment on above: Result Comment: Canc elled via OM: Order cancelled - Patient discharged Performed By: #### L 500.4050, L100.0100 ####[facility] [address] [place], [address] ALT Normal 16-61 [facility] Comment on above: Result Comment: Canc elled via OM: Order cancelled - Patient discharged Performed By: #### L 500.4050, L100.0100 ####[facility] [address] [place], [address] AST Normal 15-37 [facility] Comment on above: Result Comment: Canc elled via OM: Order cancelled - Patient discharged Performed By: #### L 500.4050, L100.0100 ####[facility] [address] [place], [address] BUN Normal 7-18 [facility] Comment on above: Result Comment: Canc elled via OM: Order cancelled - Patient discharged Performed By: #### L 500.4050, L100.0100 ####[facility] [address] [place], [address] BUN/CRE Normal 10-20 [facility] Comment on above: Result Comment: Canc elled via OM: Order cancelled - Patient discharged Performed By: #### L 500.4050, L100.0100 ####[facility] [address] [place], [address] CA,Total Normal 8.5-10.1 [facility] Comment on above: Result Comment: Canc elled via OM: Order cancelled - Patient discharged Performed By: #### L 500.4050, L100.0100 ####[facility] [address] [place], [address] CL Normal 98-107 [facility] Comment on above: Result Comment: Canc elled via OM: Order cancelled - Patient discharged Performed By: #### L 500.4050, L100.0100 ####[facility] [address] [place], [address] CO2 Normal 21.0-32.0 [facility] Comment on above: Result Comment: Canc elled via OM: Order cancelled - Patient discharged Performed By: #### L 500.4050, L100.0100 ####[facility] [address] [place], [address] CREAT,SERUM Normal 0.70-1.30 [facility] Comment on above: Result Comment: Canc elled via OM: Order cancelled - Patient discharged Performed By: #### L 500.4050, L100.0100 ####[facility] [address] [place], [address] EST GFR Normal >60 [facility] Comment on above: Result Comment: Canc elled via OM: Order cancelled - Patient discharged Performed By: #### L 500.4050, L100.0100 ####[facility] [address] [place], [address] EST GFR - AA Normal >60 [facility] Comment on above: Result Comment: Canc elled via OM: Order cancelled - Patient discharged Performed By: #### L 500.4050, L100.0100 ####[facility] [address] [place], [address] GAP Normal 5-15 [facility] Comment on above: Result Comment: Canc elled via OM: Order cancelled - Patient discharged Performed By: #### L 500.4050, L100.0100 ####[facility] [address] [place], [address] GLU Normal 74-106 [facility] Comment on above: Result Comment: Canc elled via OM: Order cancelled - Patient discharged Performed By: #### L 500.4050, L100.0100 ####[facility] [address] [place], [address] Potassium Normal 3.5-5.1 [facility] Comment on above: Result Comment: Canc elled via OM: Order cancelled - Patient discharged Performed By: #### L 500.4050, L100.0100 ####[facility] [address] [place], [address] T BILI Normal 0.20-1.00 [facility] Comment on above: Result Comment: Canc elled via OM: Order cancelled - Patient discharged Performed By: #### L 500.4050, L100.0100 ####[facility] [address] [place], [address] T PROT Normal 6.4-8.2 [facility] Comment on above: Result Comment: Canc elled via OM: Order cancelled - Patient discharged Performed By: #### L 500.4050, L100.0100 ####[facility] [address] [place], [address] Comprehensive Metabolic Profil Normal 136-145 [facility] Comment on above: Result Comment: Canc elled via OM: Order cancelled - Patient discharged Performed By: #### L 500.4050, L100.0100 ####[facility] [address] [place], [address] Basic Metabolic Profile (BMP )on 06-15-2024 BUN/CRE 19.0 RATIO Normal 10-20 [facility] Comment on above: Order Comment: 208.1 Performed By: #### L 500.2500, L100.0500, L501.5200 #### [facility] [address] [place], [address] CA,Total 8.8 mg/dL Normal 8.5-10.1 [facility] Comment on above: Order Comment: 208.1 Performed By: #### L 500.2500, L100.0500, L501.5200 #### [facility] [address] [place], [address] Chloride [Moles/Vol] 105 mmol/L Normal 98-107 [facility] Comment on above: Order Comment: 208.1 Performed By: #### L 500.2500, L100.0500, L501.5200 #### [facility] [address] [place], [address] CO2 [Moles/Vol] 25.0 mmol/L Normal 21.0-32.0 [facility] Comment on above: Order Comment: 208.1 Performed By: #### L 500.2500, L100.0500, L501.5200 #### [facility] [address] [place], [address] Creatinine [Mass/Vol] 0.95 mg/dL Normal 0.70-1.30 [facility] Comment on above: Order Comment: 208.1 Result Comment: The validity of the calculated GFR GFRAA in patients over 70 years has not been determined. Clinical correlation is essential. Performed By: #### L 500.2500, L100.0500, L501.5200 #### [facility] [address] [place], [address] EST GFR - AA 97 mL/min Normal >60 [facility] Comment on above: Order Comment: 208.1 Result Comment: Afri can Belgian GFR Calc Performed By: #### L 500.2500, L100.0500, L501.5200 #### [facility] [address] [place], [address] GAP 8 Normal 5-15 [facility] Comment on above: Order Comment: 208.1 Performed By: #### L 500.2500, L100.0500, L501.5200 #### [facility] [address] [place], [address] GFR/1.73 sq M.predicted among non-blacks MDRD (S/P/Bld) [Vol rate/Area] 80 mL/min/{1.73_m2} Normal >60 [facility] Comment on above: Order Comment: 208.1 Result Comment: Non- GFR Calc Performed By: #### L 500.2500, L100.0500, L501.5200 #### [facility] [address] [place], [address] Glucose [Mass/Vol] 77 mg/dL Normal 74-106 [facility] Comment on above: Order Comment: 208.1 Performed By: #### L 500.2500, L100.0500, L501.5200 #### [facility] [address] [place], [address] Potassium [Moles/Vol] 3.6 mmol/L Normal 3.5-5.1 [facility] Comment on above: Order Comment: 208.1 Performed By: #### L 500.2500, L100.0500, L501.5200 #### [facility] [address] [place], [address] Sodium [Moles/Vol] 138 mmol/L Normal 136-145 [facility] Comment on above: Order Comment: 208.1 Performed By: #### L 500.2500, L100.0500, L501.5200 #### [facility] [address] [place], [address] Urea nitrogen [Mass/Vol] 18 mg/dL Normal 7-18 [facility] Comment on above: Order Comment: 208.1 Performed By: #### L 500.2500, L100.0500, L501.5200 #### [facility] [address] [place], [address] CBC-Complete Blood Cnt No Di ffon 06-15-2024 Erythrocyte distribution width (RBC) [Ratio] 12.9 % Normal 11.6-14.6 [facility] Comment on above: Order Comment: 208.1 Performed By: #### L 500.2500, L100.0500, L501.5200 #### [facility] [address] [place], [address] Hematocrit (Bld) [Volume fraction] 41.8 % Normal 40-54 [facility] Comment on above: Order Comment: 208.1 Performed By: #### L 500.2500, L100.0500, L501.5200 #### [facility] [address] [place], [address] Hemoglobin (Bld) [Mass/Vol] 13.9 g/dL Normal 13.0-16.5 [facility] Comment on above: Order Comment: 208.1 Performed By: #### L 500.2500, L100.0500, L501.5200 #### [facility] [address] [place], [address] MCH (RBC) [Entitic mass] 30.0 pg Normal 27.0-32.0 [facility] Comment on above: Order Comment: 208.1 Performed By: #### L 500.2500, L100.0500, L501.5200 #### [facility] [address] [place], [address] MCHC (RBC) [Mass/Vol] 33.3 g/dL Normal 32-36 [facility] Comment on above: Order Comment: 208.1 Performed By: #### L 500.2500, L100.0500, L501.5200 #### [facility] [address] [place], [address] MCV (RBC) [Entitic vol] 90.3 fL Normal 80-94 [facility] Comment on above: Order Comment: 208.1 Performed By: #### L 500.2500, L100.0500, L501.5200 #### [facility] [address] [place], [address] Platelet mean volume (Bld) [Entitic vol] 11.7 fL Normal 6.2-12.0 [facility] Comment on above: Order Comment: 208.1 Performed By: #### L 500.2500, L100.0500, L501.5200 #### [facility] [address] [place], [address] Platelets (Bld) [#/Vol] 117 10*3/uL Low 150-450 [facility] Comment on above: Order Comment: 208.1 Performed By: #### L 500.2500, L100.0500, L501.5200 #### [facility] [address] [place], [address] RBC (Bld) [#/Vol] 4.63 10*6/uL Normal 4.6-6.2 [facility] Comment on above: Order Comment: 208.1 Performed By: #### L 500.2500, L100.0500, L501.5200 #### [facility] [address] [place], [address] RDW SD 42.1 fl Normal 35.1-43.9 [facility] Comment on above: Order Comment: 208.1 Performed By: #### L 500.2500, L100.0500, L501.5200 #### [facility] [address] [place], [address] WBC (Bld) [#/Vol] 6.7 10*3/uL Normal 4.4-11.0 [facility] Comment on above: Order Comment: 208.1 Performed By: #### L 500.2500, L100.0500, L501.5200 #### [facility] [address] [place], [address] Magnesiumon 06-15-2024 Magnesium [Mass/Vol] 2.0 mg/dL Normal 1.6-2.6 [facility] Comment on above: Order Comment: 208.1 Performed By: #### L 500.2500, L100.0500, L501.5200 #### [facility] [address] [place], [address] CBC W/Diff, Automatedon 12-1 Absolute Neut Normal 2.0-7.7 [facility] Comment on above: Result Comment: Canc elled via OM: Order cancelled - Patient discharged Performed By: #### L 500.4050, L100.0100 ####[facility] [address] [place], [address] HCT Normal 40-54 [facility] Comment on above: Result Comment: Canc elled via OM: Order cancelled - Patient discharged Performed By: #### L 500.4050, L100.0100 ####[facility] [address] [place], [address] HGB Normal 13.0-16.5 [facility] Comment on above: Result Comment: Canc elled via OM: Order cancelled - Patient discharged Performed By: #### L 500.4050, L100.0100 ####[facility] [address] [place], [address] MCH Normal 27.0-32.0 [facility] Comment on above: Result Comment: Canc elled via OM: Order cancelled - Patient discharged Performed By: #### L 500.4050, L100.0100 ####[facility] [address] [place], [address] MCHC Normal 32-36 [facility] Comment on above: Result Comment: Canc elled via OM: Order cancelled - Patient discharged Performed By: #### L 500.4050, L100.0100 ####[facility] [address] [place], [address] MCV Normal 80-94 [facility] Comment on above: Result Comment: Canc elled via OM: Order cancelled - Patient discharged Performed By: #### L 500.4050, L100.0100 ####[facility] [address] [place], [address] NEUT% Normal 47-70 [facility] Comment on above: Result Comment: Canc elled via OM: Order cancelled - Patient discharged Performed By: #### L 500.4050, L100.0100 ####[facility] [address] [place], [address] PLT Normal 150-450 [facility] Comment on above: Result Comment: Canc elled via OM: Order cancelled - Patient discharged Performed By: #### L 500.4050, L100.0100 ####[facility] [address] [place], [address] RBC Normal 4.6-6.2 [facility] Comment on above: Result Comment: Canc elled via OM: Order cancelled - Patient discharged Performed By: #### L 500.4050, L100.0100 ####[facility] [address] [place], [address] RDW CV Normal 11.6-14.6 [facility] Comment on above: Result Comment: Canc elled via OM: Order cancelled - Patient discharged Performed By: #### L 500.4050, L100.0100 ####[facility] [address] [place], [address] RDW SD Normal 35.1-43.9 [facility] Comment on above: Result Comment: Canc elled via OM: Order cancelled - Patient discharged Performed By: #### L 500.4050, L100.0100 ####[facility] [address] [place], [address] WBC Normal 4.4-11.0 [facility] Comment on above: Result Comment: Canc elled via OM: Order cancelled - Patient discharged Performed By: #### L 500.4050, L100.0100 ####[facility] [address] [place], [address] Comprehensive Metabolic Prof ilon 12-11-2024 ALB Normal 3.2-5.0 [facility] Comment on above: Result Comment: Canc elled via OM: Order cancelled - Patient discharged Performed By: #### L 500.4050, L100.0100 ####[facility] [address] [place], [address] ALK P Normal 45-117 [facility] Comment on above: Result Comment: Canc elled via OM: Order cancelled - Patient discharged Performed By: #### L 500.4050, L100.0100 ####[facility] [address] [place], [address] ALT Normal 16-61 [facility] Comment on above: Result Comment: Canc elled via OM: Order cancelled - Patient discharged Performed By: #### L 500.4050, L100.0100 ####[facility] [address] [place], [address] AST Normal 15-37 [facility] Comment on above: Result Comment: Canc elled via OM: Order cancelled - Patient discharged Performed By: #### L 500.4050, L100.0100 ####[facility] [address] [place], [address] BUN Normal 7-18 [facility] Comment on above: Result Comment: Canc elled via OM: Order cancelled - Patient discharged Performed By: #### L 500.4050, L100.0100 ####[facility] [address] [place], [address] BUN/CRE Normal 10-20 [facility] Comment on above: Result Comment: Canc elled via OM: Order cancelled - Patient discharged Performed By: #### L 500.4050, L100.0100 ####[facility] [address] [place], [address] CA,Total Normal 8.5-10.1 [facility] Comment on above: Result Comment: Canc elled via OM: Order cancelled - Patient discharged Performed By: #### L 500.4050, L100.0100 ####[facility] [address] [place], [address] CL Normal 98-107 [facility] Comment on above: Result Comment: Canc elled via OM: Order cancelled - Patient discharged Performed By: #### L 500.4050, L100.0100 ####[facility] [address] [place], [address] CO2 Normal 21.0-32.0 [facility] Comment on above: Result Comment: Canc elled via OM: Order cancelled - Patient discharged Performed By: #### L 500.4050, L100.0100 ####[facility] [address] [place], [address] CREAT,SERUM Normal 0.70-1.30 [facility] Comment on above: Result Comment: Canc elled via OM: Order cancelled - Patient discharged Performed By: #### L 500.4050, L100.0100 ####[facility] [address] [place], [address] EST GFR Normal >60 [facility] Comment on above: Result Comment: Canc elled via OM: Order cancelled - Patient discharged Performed By: #### L 500.4050, L100.0100 ####[facility] [address] [place], [address] EST GFR - AA Normal >60 [facility] Comment on above: Result Comment: Canc elled via OM: Order cancelled - Patient discharged Performed By: #### L 500.4050, L100.0100 ####[facility] [address] [place], [address] GAP Normal 5-15 [facility] Comment on above: Result Comment: Canc elled via OM: Order cancelled - Patient discharged Performed By: #### L 500.4050, L100.0100 ####[facility] [address] [place], [address] GLU Normal 74-106 [facility] Comment on above: Result Comment: Canc elled via OM: Order cancelled - Patient discharged Performed By: #### L 500.4050, L100.0100 ####[facility] [address] [place], [address] Potassium Normal 3.5-5.1 [facility] Comment on above: Result Comment: Canc elled via OM: Order cancelled - Patient discharged Performed By: #### L 500.4050, L100.0100 ####[facility] [address] [place], [address] T BILI Normal 0.20-1.00 [facility] Comment on above: Result Comment: Canc elled via OM: Order cancelled - Patient discharged Performed By: #### L 500.4050, L100.0100 ####[facility] [address] [place], [address] T PROT Normal 6.4-8.2 [facility] Comment on above: Result Comment: Canc elled via OM: Order cancelled - Patient discharged Performed By: #### L 500.4050, L100.0100 ####[facility] [address] [place], [address] Comprehensive Metabolic Profil Normal 136-145 [facility] Comment on above: Result Comment: Canc elled via OM: Order cancelled - Patient discharged Performed By: #### L 500.4050, L100.0100 ####[facility] [address] [place], [address] Basic Metabolic Profile (BMP )on 06-08-2024 BUN/CRE 25.7 RATIO High 10-20 [facility] Comment on above: Order Comment: 208 Performed By: #### L 500.2500, L100.0500 #### [facility] [address] [place], [address] CA,Total 8.9 mg/dL Normal 8.5-10.1 [facility] Comment on above: Order Comment: 208 Performed By: #### L 500.2500, L100.0500 #### [facility] [address] [place], [address] Chloride [Moles/Vol] 107 mmol/L Normal 98-107 [facility] Comment on above: Order Comment: 208 Performed By: #### L 500.2500, L100.0500 #### [facility] [address] [place], [address] CO2 [Moles/Vol] 28.0 mmol/L Normal 21.0-32.0 [facility] Comment on above: Order Comment: 208 Performed By: #### L 500.2500, L100.0500 #### [facility] [address] [place], [address] Creatinine [Mass/Vol] 0.97 mg/dL Normal 0.70-1.30 [facility] Comment on above: Order Comment: 208 Result Comment: The validity of the calculated GFR GFRAA in patients over 70 years has not been determined. Clinical correlation is essential. Performed By: #### L 500.2500, L100.0500 #### [facility] [address] [place], [address] EST GFR - AA 94 mL/min Normal >60 [facility] Comment on above: Order Comment: 208 Result Comment: Afri can Belgian GFR Calc Performed By: #### L 500.2500, L100.0500 #### [facility] [address] [place], [address] GAP 5 Normal 5-15 [facility] Comment on above: Order Comment: 208 Performed By: #### L 500.2500, L100.0500 #### [facility] [address] [place], [address] GFR/1.73 sq M.predicted among non-blacks MDRD (S/P/Bld) [Vol rate/Area] 77 mL/min/{1.73_m2} Normal >60 [facility] Comment on above: Order Comment: 208 Result Comment: Non- GFR Calc Performed By: #### L 500.2500, L100.0500 #### [facility] [address] [place], [address] Glucose [Mass/Vol] 86 mg/dL Normal 74-106 [facility] Comment on above: Order Comment: 208 Performed By: #### L 500.2500, L100.0500 #### [facility] [address] [place], [address] Potassium [Moles/Vol] 4.0 mmol/L Normal 3.5-5.1 [facility] Comment on above: Order Comment: 208 Performed By: #### L 500.2500, L100.0500 #### [facility] [address] [place], [address] Sodium [Moles/Vol] 140 mmol/L Normal 136-145 [facility] Comment on above: Order Comment: 208 Performed By: #### L 500.2500, L100.0500 #### [facility] [address] [place], [address] Urea nitrogen [Mass/Vol] 25 mg/dL High 7-18 [facility] Comment on above: Order Comment: 208 Performed By: #### L 500.2500, L100.0500 #### [facility] [address] [place], [address] CBC-Complete Blood Cnt No Di ffon 06-08-2024 Erythrocyte distribution width (RBC) [Ratio] 12.9 % Normal 11.6-14.6 [facility] Comment on above: Order Comment: 208 Performed By: #### L 500.2500, L100.0500 #### [facility] [address] [place], [place], [address] Hematocrit (Bld) [Volume fraction] 41.8 % Normal 40-54 [facility] Comment on above: Order Comment: 208 Performed By: #### L 500.2500, L100.0500 #### [facility] [address] [place], [address] Hemoglobin (Bld) [Mass/Vol] 13.7 g/dL Normal 13.0-16.5 [facility] Comment on above: Order Comment: 208 Performed By: #### L 500.2500, L100.0500 #### [facility] [address] [place], [address] MCH (RBC) [Entitic mass] 29.9 pg Normal 27.0-32.0 [facility] Comment on above: Order Comment: 208 Performed By: #### L 500.2500, L100.0500 #### [facility] [address] [place], [address] MCHC (RBC) [Mass/Vol] 32.8 g/dL Normal 32-36 [facility] Comment on above: Order Comment: 208 Performed By: #### L 500.2500, L100.0500 #### [facility] [address] [place], [address] MCV (RBC) [Entitic vol] 91.3 fL Normal 80-94 [facility] Comment on above: Order Comment: 208 Performed By: #### L 500.2500, L100.0500 #### [facility] [address] [place], [address] Platelet mean volume (Bld) [Entitic vol] 11.7 fL Normal 6.2-12.0 [facility] Comment on above: Order Comment: 208 Performed By: #### L 500.2500, L100.0500 #### [facility] [address] [place], [address] Platelets (Bld) [#/Vol] 150 10*3/uL Normal 150-450 [facility] Comment on above: Order Comment: 208 Performed By: #### L 500.2500, L100.0500 #### [facility] [address] [place], [address] RBC (Bld) [#/Vol] 4.58 10*6/uL Low 4.6-6.2 [facility] Comment on above: Order Comment: 208 Performed By: #### L 500.2500, L100.0500 #### [facility] [address] [place], [address] RDW SD 42.9 fl Normal 35.1-43.9 [facility] Comment on above: Order Comment: 208 Performed By: #### L 500.2500, L100.0500 #### [facility] [address] [place], [address] WBC (Bld) [#/Vol] 5.5 10*3/uL Normal 4.4-11.0 [facility] Comment on above: Order Comment: 208 Performed By: #### L 500.2500, L100.0500 #### [facility] [address] [place], [address] Magnesiumon 06-08-2024 Magnesium [Mass/Vol] 2.1 mg/dL Normal 1.6-2.6 [facility] Comment on above: Order Comment: 208 Performed By: #### L 500.2500, L100.0500 #### [facility] [address] [place], [address] CBC W/Diff, Automatedon 12-0 Absolute Neut Normal 2.0-7.7 [facility] Comment on above: Result Comment: Canc elled via OM: Order cancelled - Patient discharged Performed By: #### L 500.2500, L100.0500 #### [facility] [address] [place], [address] HCT Normal 40-54 [facility] Comment on above: Result Comment: Canc elled via OM: Order cancelled - Patient discharged Performed By: #### L 500.2500, L100.0500 #### [facility] [address] [place], [address] HGB Normal 13.0-16.5 [facility] Comment on above: Result Comment: Canc elled via OM: Order cancelled - Patient discharged Performed By: #### L 500.2500, L100.0500 #### [facility] [address] [place], [address] MCH Normal 27.0-32.0 [facility] Comment on above: Result Comment: Canc elled via OM: Order cancelled - Patient discharged Performed By: #### L 500.2500, L100.0500 #### [facility] [address] [place], [address] MCHC Normal 32-36 [facility] Comment on above: Result Comment: Canc elled via OM: Order cancelled - Patient discharged Performed By: #### L 500.2500, L100.0500 #### [facility] [address] [place], [address] MCV Normal 80-94 [facility] Comment on above: Result Comment: Canc elled via OM: Order cancelled - Patient discharged Performed By: #### L 500.2500, L100.0500 #### [facility] [address] [place], [address] NEUT% Normal 47-70 [facility] Comment on above: Result Comment: Canc elled via OM: Order cancelled - Patient discharged Performed By: #### L 500.2500, L100.0500 #### [facility] [address] [place], [address] PLT Normal 150-450 [facility] Comment on above: Result Comment: Canc elled via OM: Order cancelled - Patient discharged Performed By: #### L 500.2500, L100.0500 #### [facility] [address] [place], [address] RBC Normal 4.6-6.2 [facility] Comment on above: Result Comment: Canc elled via OM: Order cancelled - Patient discharged Performed By: #### L 500.2500, L100.0500 #### [facility] [address] [place], [address] RDW CV Normal 11.6-14.6 [facility] Comment on above: Result Comment: Canc elled via OM: Order cancelled - Patient discharged Performed By: #### L 500.2500, L100.0500 #### [facility] [address] [place], [address] RDW SD Normal 35.1-43.9 [facility] Comment on above: Result Comment: Canc elled via OM: Order cancelled - Patient discharged Performed By: #### L 500.2500, L100.0500 #### [facility] [address] [place], [address] WBC Normal 4.4-11.0 [facility] Comment on above: Result Comment: Canc elled via OM: Order cancelled - Patient discharged Performed By: #### L 500.2500, L100.0500 #### [facility] [address] [place], [address] Comprehensive Metabolic Prof ilon 06-03-2024 ALB Normal 3.2-5.0 [facility] Comment on above: Result Comment: Canc elled via OM: Order cancelled - Patient discharged Performed By: #### L 500.2500, L100.0500 #### [facility] [address] [place], [address] ALK P Normal 45-117 [facility] Comment on above: Result Comment: Canc elled via OM: Order cancelled - Patient discharged Performed By: #### L 500.2500, L100.0500 #### [facility] [address] [place], [address] ALT Normal 16-61 [facility] Comment on above: Result Comment: Canc elled via OM: Order cancelled - Patient discharged Performed By: #### L 500.2500, L100.0500 #### [facility] [address] [place], [address] AST Normal 15-37 [facility] Comment on above: Result Comment: Canc elled via OM: Order cancelled - Patient discharged Performed By: #### L 500.2500, L100.0500 #### [facility] [address] [place], [address] BUN Normal 7-18 [facility] Comment on above: Result Comment: Canc elled via OM: Order cancelled - Patient discharged Performed By: #### L 500.2500, L100.0500 #### [facility] [address] [place], [address] BUN/CRE Normal 10-20 [facility] Comment on above: Result Comment: Canc elled via OM: Order cancelled - Patient discharged Performed By: #### L 500.2500, L100.0500 #### [facility] [address] [place], [address] CA,Total Normal 8.5-10.1 [facility] Comment on above: Result Comment: Canc elled via OM: Order cancelled - Patient discharged Performed By: #### L 500.2500, L100.0500 #### [facility] [address] [place], [address] CL Normal 98-107 [facility] Comment on above: Result Comment: Canc elled via OM: Order cancelled - Patient discharged Performed By: #### L 500.2500, L100.0500 #### [facility] [address] [place], [address] CO2 Normal 21.0-32.0 [facility] Comment on above: Result Comment: Canc elled via OM: Order cancelled - Patient discharged Performed By: #### L 500.2500, L100.0500 #### [facility] [address] [place], [address] CREAT,SERUM Normal 0.70-1.30 [facility] Comment on above: Result Comment: Canc elled via OM: Order cancelled - Patient discharged Performed By: #### L 500.2500, L100.0500 #### [facility] [address] [place], [address] EST GFR Normal >60 [facility] Comment on above: Result Comment: Canc elled via OM: Order cancelled - Patient discharged Performed By: #### L 500.2500, L100.0500 #### [facility] [address] [place], [address] EST GFR - AA Normal >60 [facility] Comment on above: Result Comment: Canc elled via OM: Order cancelled - Patient discharged Performed By: #### L 500.2500, L100.0500 #### [facility] [address] [place], [address] GAP Normal 5-15 [facility] Comment on above: Result Comment: Canc elled via OM: Order cancelled - Patient discharged Performed By: #### L 500.2500, L100.0500 #### [facility] [address] [place], [address] GLU Normal 74-106 [facility] Comment on above: Result Comment: Canc elled via OM: Order cancelled - Patient discharged Performed By: #### L 500.2500, L100.0500 #### [facility] [address] [place], [address] Potassium Normal 3.5-5.1 [facility] Comment on above: Result Comment: Canc elled via OM: Order cancelled - Patient discharged Performed By: #### L 500.2500, L100.0500 #### [facility] [address] [place], [address] T BILI Normal 0.20-1.00 [facility] Comment on above: Result Comment: Canc elled via OM: Order cancelled - Patient discharged Performed By: #### L 500.2500, L100.0500 #### [facility] [address] [place], [address] T PROT Normal 6.4-8.2 [facility] Comment on above: Result Comment: Canc elled via OM: Order cancelled - Patient discharged Performed By: #### L 500.2500, L100.0500 #### [facility] [address] [place], [address] Comprehensive Metabolic Profil Normal 136-145 [facility] Comment on above: Result Comment: Canc elled via OM: Order cancelled - Patient discharged Performed By: #### L 500.2500, L100.0500 #### [facility] [address] [place], [address] CBC W/Diff, Automatedon 12-0 SMEAR COMMENT COMMENT Normal [facility] Comment on above: Order Comment: 208 Result Comment: MONO CYTOSIS. Performed By: #### L 500.4100, L500.4050, L100.0100, L501.9520, L506.1000, L503.0105, L501.5200 ####[facility] [address] [place], [address] [facility]Non [facility]20[facility] STACYDENIZ ([id number]) 1935 M Date Time Provider Department 06/01/24 VADIM DERAS During your visit today, we recorded the following information about you: Dayami Rea LPN 06/01/2024 10:25 AM Addendum Rec'd records from [facility] pt was discharged from there to [facility] 05/30/24. Allergies As of Date: 06/01/2024 Noted Allergy Reaction [id number] REDUCTASE INHIBIT*08/23/2023 17 - Myalgia Comments: Weakess, [...] Status:Closed by DAYAMI REA on 06/01/24 Normal [facility] Metabolic Prof danielle 06-01-2024 Albumin [Mass/Vol] 2.6 g/dL Low 3.2-5.0 [facility] Comment on above: Order Comment: 208 Performed By: #### L 500.4100, L500.4050, L100.0100, L501.9520, L506.1000, L503.0105, L501.5200 ####[facility] [address] [place], [address] Albumin/Globulin [Mass ratio] 0.8 {ratio} Low 0.9-2.4 [facility] Comment on above: Order Comment: 208 Performed By: #### L 500.4100, L500.4050, L100.0100, L501.9520, L506.1000, L503.0105, L501.5200 ####[facility] [address] [place], [address] ALK P 68 U/L Normal 45-117 [facility] Comment on above: Order Comment: 208 Performed By: #### L 500.4100, L500.4050, L100.0100, L501.9520, L506.1000, L503.0105, L501.5200 ####[facility] [address] [place], [address] ALT [Catalytic activity/Vol] 29 U/L Normal 16-61 [facility] Comment on above: Order Comment: 208 Performed By: #### L 500.4100, L500.4050, L100.0100, L501.9520, L506.1000, L503.0105, L501.5200 ####[facility] [address] [place], [address] AST [Catalytic activity/Vol] 16 U/L Normal 15-37 [facility] Comment on above: Order Comment: 208 Performed By: #### L 500.4100, L500.4050, L100.0100, L501.9520, L506.1000, L503.0105, L501.5200 ####[facility] [address] [place], [address] Bilirubin [Mass/Vol] 1.00 mg/dL Normal 0.20-1.00 [facility] Comment on above: Order Comment: 208 Result Comment: For patients on eltrombopag therapy, use of Dimension [place] TBIL is not recommended. Performed By: #### L 500.4100, L500.4050, L100.0100, L501.9520, L506.1000, L503.0105, L501.5200 ####[facility] [address] [place], [address] BUN/CRE 31.3 RATIO High 10-20 [facility] Comment on above: Order Comment: 208 Performed By: #### L 500.4100, L500.4050, L100.0100, L501.9520, L506.1000, L503.0105, L501.5200 ####[facility] [address] [place], [address] CA,Total 8.7 mg/dL Normal 8.5-10.1 [facility] Comment on above: Order Comment: 208 Performed By: #### L 500.4100, L500.4050, L100.0100, L501.9520, L506.1000, L503.0105, L501.5200 ####[facility] [address] [place], [address] Chloride [Moles/Vol] 109 mmol/L High 98-107 [facility] Comment on above: Order Comment: 208 Performed By: #### L 500.4100, L500.4050, L100.0100, L501.9520, L506.1000, L503.0105, L501.5200 ####[facility] [address] [place], [address] CO2 [Moles/Vol] 25.0 mmol/L Normal 21.0-32.0 [facility] Comment on above: Order Comment: 208 Performed By: #### L 500.4100, L500.4050, L100.0100, L501.9520, L506.1000, L503.0105, L501.5200 ####[facility] [address] [place], [address] Creatinine [Mass/Vol] 0.77 mg/dL Normal 0.70-1.30 [facility] Comment on above: Order Comment: 208 Result Comment: The validity of the calculated GFR GFRAA in patients over 70 years has not been determined. Clinical correlation is essential. Performed By: #### L 500.4100, L500.4050, L100.0100, L501.9520, L506.1000, L503.0105, L501.5200 ####[facility] [address] [place], [address] EST GFR - AA 123 mL/min Normal >60 [facility] Comment on above: Order Comment: 208 Result Comment: Afri can Belgian GFR Calc Performed By: #### L 500.4100, L500.4050, L100.0100, L501.9520, L506.1000, L503.0105, L501.5200 ####[facility] [address] [place], [address] GAP 6 Normal 5-15 [facility] Comment on above: Order Comment: 208 Performed By: #### L 500.4100, L500.4050, L100.0100, L501.9520, L506.1000, L503.0105, L501.5200 ####[facility] [address] [place], [address] GFR/1.73 sq M.predicted among non-blacks MDRD (S/P/Bld) [Vol rate/Area] 102 mL/min/{1.73_m2} Normal >60 [facility] Comment on above: Order Comment: 208 Result Comment: Non- GFR Calc Performed By: #### L 500.4100, L500.4050, L100.0100, L501.9520, L506.1000, L503.0105, L501.5200 ####[facility] [address] [place], [address] Globulin (S) [Mass/Vol] 3.3 g/dL Normal 2.2-4.2 [facility] Comment on above: Order Comment: 208 Performed By: #### L 500.4100, L500.4050, L100.0100, L501.9520, L506.1000, L503.0105, L501.5200 ####[facility] [address] [place], [address] Glucose [Mass/Vol] 84 mg/dL Normal 74-106 [facility] Comment on above: Order Comment: 208 Performed By: #### L 500.4100, L500.4050, L100.0100, L501.9520, L506.1000, L503.0105, L501.5200 ####[facility] [address] [place], [address] Potassium [Moles/Vol] 3.6 mmol/L Normal 3.5-5.1 [facility] Comment on above: Order Comment: 208 Performed By: #### L 500.4100, L500.4050, L100.0100, L501.9520, L506.1000, L503.0105, L501.5200 ####[facility] [address] [place], [address] Sodium [Moles/Vol] 140 mmol/L Normal 136-145 [facility] Comment on above: Order Comment: 208 Performed By: #### L 500.4100, L500.4050, L100.0100, L501.9520, L506.1000, L503.0105, L501.5200 ####[facility] [address] [place], [address] T PROT 5.9 g/dL Low 6.4-8.2 [facility] Comment on above: Order Comment: 208 Performed By: #### L 500.4100, L500.4050, L100.0100, L501.9520, L506.1000, L503.0105, L501.5200 ####[facility] [address] [place], [address] Urea nitrogen [Mass/Vol] 24 mg/dL High 7-18 [facility] Comment on above: Order Comment: 208 Performed By: #### L 500.4100, L500.4050, L100.0100, L501.9520, L506.1000, L503.0105, L501.5200 ####[facility] [address] [place], [address] Lipid Profileon 06-01-2024 Cholesterol [Mass/Vol] 151 mg/dL Normal 200 [facility] Comment on above: Order Comment: 208 Result Comment: <200 mg/dL Desirable 200-240 mg/dL Borderline >240 mg/dL High Risk Performed By: #### L 500.4100, L500.4050, L100.0100, L501.9520, L506.1000, L503.0105, L501.5200 ####[facility] [address] [place], [address] Cholesterol in HDL [Mass/Vol] 42 mg/dL Normal [facility] Comment on above: Order Comment: 208 Result Comment: The drugs N-Acetylcysteine and Metamizole may falsely depress this assay. Reference Range HDL <40 mg/dL Low HDL Cholesterol HDL >or= 60 mg/dL High HDL Cholesterol Performed By: #### L 500.4100, L500.4050, L100.0100, L501.9520, L506.1000, L503.0105, L501.5200 ####[facility] [address] [place], [address] Cholesterol in LDL [Mass/Vol] 90 mg/dL Normal 0-130 [facility] Comment on above: Order Comment: 208 Performed By: #### L 500.4100, L500.4050, L100.0100, L501.9520, L506.1000, L503.0105, L501.5200 ####[facility] [address] [place], [address] Cholesterol in VLDL [Mass/Vol] 19 mg/dL Normal 5-40 [facility] Comment on above: Order Comment: 208 Performed By: #### L 500.4100, L500.4050, L100.0100, L501.9520, L506.1000, L503.0105, L501.5200 ####[facility] [address] [place], [address] Triglyceride [Mass/Vol] 96 mg/dL Normal [facility] Comment on above: Order Comment: 208 Result Comment: The drugs N-Acetylcysteine and Metamizole may falsely depress this assay. Serum Triglycerides Reference Interval Normal <150 mg/dL Borderline high 150 - 199 mg/dL High 200 - 499 mg/dL Very High > or = 500 mg/dL Performed By: #### L 500.4100, L500.4050, L100.0100, L501.9520, L506.1000, L503.0105, L501.5200 ####[facility] [address] [place], [address] Magnesiumon 06-01-2024 Magnesium [Mass/Vol] 1.9 mg/dL Normal 1.6-2.6 [facility] Comment on above: Order Comment: 208 Performed By: #### L 500.4100, L500.4050, L100.0100, L501.9520, L506.1000, L503.0105, L501.5200 ####[facility] [address] [place], [place], [address] Thyroid Stim Hormone (TSH)on 06-01-2024 TSH 1.110 uIU/mL Normal 0.358-3.740 [facility] Comment on above: Order Comment: 208 Performed By: #### L 500.4100, L500.4050, L100.0100, L501.9520, L506.1000, L503.0105, L501.5200 ####[facility] [address] [place], [place], [address] Vitamin B12on 06-01-2024 Cobalamin (Vitamin B12) [Mass/Vol] 998 pg/mL High 211-911 [facility] Comment on above: Order Comment: 208 Performed By: #### L 500.4100, L500.4050, L100.0100, L501.9520, L506.1000, L503.0105, L501.5200 ####[facility] [address] [place], [place], [address] Vitamin D,25 Hydroxyon 06-01 Vitamin D 25-OH 33.5 ng/mL Normal [facility] Comment on above: Order Comment: 208 Result Comment: Christie min D 25(OH) Status Range Deficiency <20 ng/mL (50nmol/L) Insufficiency 20 - 30 ng/mL (50 - 75 nmol/L) Sufficiency 30 - 100 ng/mL (75 - 250 nmol/L) Toxicity >100 ng/mL (>250 nmol/L) Performed By: #### L 500.4100, L500.4050, L100.0100, L501.9520, L506.1000, L503.0105, L501.5200 ####[facility] [address] [place], [address] Basic Metabolic Profile (BMP )on 05-27-2024 BUN Normal 7-18 [facility] Comment on above: Result Comment: Canc elled via OM: Order Changed Performed By: #### L 500.2500, L100.0500 #### [facility] [address] [place], [address] BUN/CRE Normal 10-20 [facility] Comment on above: Result Comment: Canc elled via OM: Order Changed Performed By: #### L 500.2500, L100.0500 #### [facility] [address] [place], [address] CA,Total Normal 8.5-10.1 [facility] Comment on above: Result Comment: Canc elled via OM: Order Changed Performed By: #### L 500.2500, L100.0500 #### [facility] [address] [place], [address] CL Normal 98-107 [facility] Comment on above: Result Comment: Canc elled via OM: Order Changed Performed By: #### L 500.2500, L100.0500 #### [facility] [address] [place], [address] CO2 Normal 21.0-32.0 [facility] Comment on above: Result Comment: Canc elled via OM: Order Changed Performed By: #### L 500.2500, L100.0500 #### [facility] [address] [place], [address] CREAT,SERUM Normal 0.70-1.30 [facility] Comment on above: Result Comment: Canc elled via OM: Order Changed Performed By: #### L 500.2500, L100.0500 #### [facility] [address] [place], [address] EST GFR Normal >60 [facility] Comment on above: Result Comment: Canc elled via OM: Order Changed Performed By: #### L 500.2500, L100.0500 #### [facility] [address] [place], [address] EST GFR - AA Normal >60 [facility] Comment on above: Result Comment: Canc elled via OM: Order Changed Performed By: #### L 500.2500, L100.0500 #### [facility] [address] [place], [address] GAP Normal 5-15 [facility] Comment on above: Result Comment: Canc elled via OM: Order Changed Performed By: #### L 500.2500, L100.0500 #### [facility] [address] [place], [address] GLU Normal 74-106 [facility] Comment on above: Result Comment: Canc elled via OM: Order Changed Performed By: #### L 500.2500, L100.0500 #### [facility] [address] [place], [address] Potassium Normal 3.5-5.1 [facility] Comment on above: Result Comment: Canc elled via OM: Order Changed Performed By: #### L 500.2500, L100.0500 #### [facility] [address] [place], [address] Basic Metabolic Profile (BMP) Normal 136-145 [facility] Comment on above: Result Comment: Canc elled via OM: Order Changed Performed By: #### L 500.2500, L100.0500 #### [facility] [address] [place], [address] CBC W/Diff, Automatedon - PATH REV Reviewed Normal [facility] Comment on above: Result Comment: Russ Carrillo D.O. 05/27/24 AMENDED REPORT 05/27/24 1428 PATH REV previously reported as: October Performed By: #### L 500.2500, L100.0500, L501.5200 #### [facility] [address] [place], [address] Absolute Neut Normal 2.0-7.7 [facility] Comment on above: Result Comment: Canc elled via OM: Order Changed Performed By: #### L 500.2500, L100.0500 #### [facility] [address] [place], [address] HCT Normal 40-54 [facility] Comment on above: Result Comment: Canc elled via OM: Order Changed Performed By: #### L 500.2500, L100.0500 #### [facility] [address] [place], [address] HGB Normal 13.0-16.5 [facility] Comment on above: Result Comment: Canc elled via OM: Order Changed Performed By: #### L 500.2500, L100.0500 #### [facility] [address] [place], [address] MCH Normal 27.0-32.0 [facility] Comment on above: Result Comment: Canc elled via OM: Order Changed Performed By: #### L 500.2500, L100.0500 #### [facility] [address] [place], [address] MCHC Normal 32-36 [facility] Comment on above: Result Comment: Canc elled via OM: Order Changed Performed By: #### L 500.2500, L100.0500 #### [facility] [address] [place], [address] MCV Normal 80-94 [facility] Comment on above: Result Comment: Canc elled via OM: Order Changed Performed By: #### L 500.2500, L100.0500 #### [facility] [address] [place], [address] NEUT% Normal 47-70 [facility] Comment on above: Result Comment: Canc elled via OM: Order Changed Performed By: #### L 500.2500, L100.0500 #### [facility] [address] [place], [address] PLT Normal 150-450 [facility] Comment on above: Result Comment: Canc elled via OM: Order Changed Performed By: #### L 500.2500, L100.0500 #### [facility] [address] [place], [address] RBC Normal 4.6-6.2 [facility] Comment on above: Result Comment: Canc elled via OM: Order Changed Performed By: #### L 500.2500, L100.0500 #### [facility] [address] [place], [address] RDW CV Normal 11.6-14.6 [facility] Comment on above: Result Comment: Canc elled via OM: Order Changed Performed By: #### L 500.2500, L100.0500 #### [facility] [address] [place], [address] RDW SD Normal 35.1-43.9 [facility] Comment on above: Result Comment: Canc elled via OM: Order Changed Performed By: #### L 500.2500, L100.0500 #### [facility] [address] [place], [address] WBC Normal 4.4-11.0 [facility] Comment on above: Result Comment: Canc elled via OM: Order Changed Performed By: #### L 500.2500, L100.0500 #### [facility] [address] [place], [address] Comprehensive Metabolic Prof ilon 05-27-2024 Albumin [Mass/Vol] 2.7 g/dL Low 3.2-5.0 [facility] Comment on above: Performed By: #### L 500.2500, L100.0500, L501.5200 #### [facility] [address] [place], [address] Albumin/Globulin [Mass ratio] 0.8 {ratio} Low 0.9-2.4 [facility] Comment on above: Performed By: #### L 500.2500, L100.0500, L501.5200 #### [facility] [address] [place], [address] ALK P 71 U/L Normal 45-117 [facility] Comment on above: Performed By: #### L 500.2500, L100.0500, L501.5200 #### [facility] [address] [place], [address] ALT [Catalytic activity/Vol] 35 U/L Normal 16-61 [facility] Comment on above: Performed By: #### L 500.2500, L100.0500, L501.5200 #### [facility] [address] [place], [address] AST [Catalytic activity/Vol] 20 U/L Normal 15-37 [facility] Comment on above: Performed By: #### L 500.2500, L100.0500, L501.5200 #### [place] [facility] [address] [place], [address] Bilirubin [Mass/Vol] 0.90 mg/dL Normal 0.20-1.00 [facility] Comment on above: Result Comment: For patients on eltrombopag therapy, use of Dimension [place] TBIL is not recommended. Performed By: #### L 500.2500, L100.0500, L501.5200 #### [facility] [address] [place], [address] BUN/CRE 34.4 RATIO High 10-20 [facility] Comment on above: Performed By: #### L 500.2500, L100.0500, L501.5200 #### [facility] [address] [place], [address] CA,Total 8.9 mg/dL Normal 8.5-10.1 [facility] Comment on above: Performed By: #### L 500.2500, L100.0500, L501.5200 #### [facility] [address] [place], [address] Chloride [Moles/Vol] 107 mmol/L Normal 98-107 [facility] Comment on above: Performed By: #### L 500.2500, L100.0500, L501.5200 #### [facility] [address] [place], [address] CO2 [Moles/Vol] 24.0 mmol/L Normal 21.0-32.0 [facility] Comment on above: Performed By: #### L 500.2500, L100.0500, L501.5200 #### [facility] [address] [place], [address] Creatinine [Mass/Vol] 0.90 mg/dL Normal 0.70-1.30 [facility] Comment on above: Result Comment: The validity of the calculated GFR GFRAA in patients over 70 years has not been determined. Clinical correlation is essential. Performed By: #### L 500.2500, L100.0500, L501.5200 #### [facility] [address] [place], [address] ECRCL 63.47 ml/min Normal [facility] Comment on above: Performed By: #### L 500.2500, L100.0500, L501.5200 #### [facility] [address] [place], [address] EST GFR - AA 102 mL/min Normal >60 [facility] Comment on above: Result Comment: Afri can Belgian GFR Calc Performed By: #### L 500.2500, L100.0500, L501.5200 #### [facility] [address] [place], [address] GAP 7 Normal 5-15 [facility] Comment on above: Performed By: #### L 500.2500, L100.0500, L501.5200 #### [facility] [address] [place], [address] GFR/1.73 sq M.predicted among non-blacks MDRD (S/P/Bld) [Vol rate/Area] 84 mL/min/{1.73_m2} Normal >60 [facility] Comment on above: Result Comment: Non- GFR Calc Performed By: #### L 500.2500, L100.0500, L501.5200 #### [facility] [address] [place], [address] Globulin (S) [Mass/Vol] 3.4 g/dL Normal 2.2-4.2 [facility] Comment on above: Performed By: #### L 500.2500, L100.0500, L501.5200 #### [facility] [address] [place], [address] Glucose [Mass/Vol] 92 mg/dL Normal 74-106 [facility] Comment on above: Performed By: #### L 500.2500, L100.0500, L501.5200 #### [facility] [address] [place], [address] Potassium [Moles/Vol] 3.9 mmol/L Normal 3.5-5.1 [facility] Comment on above: Performed By: #### L 500.2500, L100.0500, L501.5200 #### [facility] [address] [place], [address] Sodium [Moles/Vol] 138 mmol/L Normal 136-145 [facility] Comment on above: Performed By: #### L 500.2500, L100.0500, L501.5200 #### [facility] [address] [place], [address] T PROT 6.1 g/dL Low 6.4-8.2 [facility] Comment on above: Performed By: #### L 500.2500, L100.0500, L501.5200 #### [facility] [address] [place], [address] Urea nitrogen [Mass/Vol] 31 mg/dL High 7-18 [facility] Comment on above: Performed By: #### L 500.2500, L100.0500, L501.5200 #### [facility] [address] [place], [address] Basic Metabolic Profile (BMP )on 05-22-2024 BUN/CRE 35.6 RATIO High 10-20 [facility] Comment on above: Performed By: #### L 500.2500, L100.0500, L501.5200 #### [facility] [address] [place], [address] CA,Total 8.8 mg/dL Normal 8.5-10.1 [facility] Comment on above: Performed By: #### L 500.2500, L100.0500, L501.5200 #### [facility] [address] [place], [address] Chloride [Moles/Vol] 108 mmol/L High 98-107 [facility] Comment on above: Performed By: #### L 500.2500, L100.0500, L501.5200 #### [facility] [address] [place], [address] CO2 [Moles/Vol] 26.0 mmol/L Normal 21.0-32.0 [facility] Comment on above: Performed By: #### L 500.2500, L100.0500, L501.5200 #### [facility] [address] [place], [address] Creatinine [Mass/Vol] 1.04 mg/dL Normal 0.70-1.30 [facility] Comment on above: Result Comment: The validity of the calculated GFR GFRAA in patients over 70 years has not been determined. Clinical correlation is essential. Performed By: #### L 500.2500, L100.0500, L501.5200 #### [facility] [address] [place], [address] ECRCL 54.93 ml/min Normal [facility] Comment on above: Performed By: #### L 500.2500, L100.0500, L501.5200 #### [facility] [address] [place], [address] EST GFR - AA 87 mL/min Normal >60 [facility] Comment on above: Result Comment: Afri can Belgian GFR Calc Performed By: #### L 500.2500, L100.0500, L501.5200 #### [facility] [address] [place], [address] GAP 5 Normal 5-15 [facility] Comment on above: Performed By: #### L 500.2500, L100.0500, L501.5200 #### [facility] [address] [place], [address] GFR/1.73 sq M.predicted among non-blacks MDRD (S/P/Bld) [Vol rate/Area] 72 mL/min/{1.73_m2} Normal >60 [facility] Comment on above: Result Comment: Non- GFR Calc Performed By: #### L 500.2500, L100.0500, L501.5200 #### [facility] [address] [place], [address] Glucose [Mass/Vol] 96 mg/dL Normal 74-106 [facility] Comment on above: Performed By: #### L 500.2500, L100.0500, L501.5200 #### [facility] [address] [place], [address] Potassium [Moles/Vol] 3.6 mmol/L Normal 3.5-5.1 [facility] Comment on above: Performed By: #### L 500.2500, L100.0500, L501.5200 #### [facility] [address] [place], [address] Sodium [Moles/Vol] 140 mmol/L Normal 136-145 [facility] Comment on above: Performed By: #### L 500.2500, L100.0500, L501.5200 #### [facility] [address] [place], [address] Urea nitrogen [Mass/Vol] 37 mg/dL High 7-18 [facility] Comment on above: Performed By: #### L 500.2500, L100.0500, L501.5200 #### [facility] [address] [place], [address] COVID 19 AG RAPID (RN NADIA T)on 05-22-2024 SARS-CoV-2 (COVID-19) RNA GM+probe Ql (Unsp [...] RAPID METHOD BinaxNow COVID19 Ag Card Normal [facility] Comment on above: Performed By: #### L 500.2500, L100.0500, L501.5200 #### [facility] [address] [place], [address] CBC W/Diff, Automatedon 05-02 SMEAR COMMENT SCANNED Normal [facility] Comment on above: Result Comment: MONO CYTOSIS PRESENT Performed By: #### L 500.4050, L100.0100 #### [facility] [address] [place], [address] Comprehensive Metabolic Prof ilon 05-20-2024 Albumin [Mass/Vol] 2.8 g/dL Low 3.2-5.0 [facility] Comment on above: Performed By: #### L 500.4050, L100.0100 #### [facility] [address] [place], [address] Albumin/Globulin [Mass ratio] 0.9 {ratio} Normal 0.9-2.4 [facility] Comment on above: Performed By: #### L 500.4050, L100.0100 #### [facility] [address] [place], [address] ALK P 68 U/L Normal 45-117 [facility] Comment on above: Performed By: #### L 500.4050, L100.0100 #### [facility] [address] [place], [address] ALT [Catalytic activity/Vol] 21 U/L Normal 16-61 [facility] Comment on above: Performed By: #### L 500.4050, L100.0100 #### [facility] [address] [place], [address] AST [Catalytic activity/Vol] 16 U/L Normal 15-37 [facility] Comment on above: Performed By: #### L 500.4050, L100.0100 #### [facility] [address] [place], [address] Bilirubin [Mass/Vol] 1.90 mg/dL High 0.20-1.00 [facility] Comment on above: Result Comment: For patients on eltrombopag therapy, use of Dimension [place] TBIL is not recommended. Performed By: #### L 500.4050, L100.0100 #### [facility] [address] [place], [address] BUN/CRE 29.4 RATIO High 10-20 [facility] Comment on above: Performed By: #### L 500.4050, L100.0100 #### [facility] [address] [place], [address] CA,Total 8.7 mg/dL Normal 8.5-10.1 [facility] Comment on above: Performed By: #### L 500.4050, L100.0100 #### [facility] [address] [place], [address] Chloride [Moles/Vol] 106 mmol/L Normal 98-107 [facility] Comment on above: Performed By: #### L 500.4050, L100.0100 #### [facility] [address] [place], [address] CO2 [Moles/Vol] 25.0 mmol/L Normal 21.0-32.0 [facility] Comment on above: Performed By: #### L 500.4050, L100.0100 #### [facility] [address] [place], [address] Creatinine [Mass/Vol] 0.85 mg/dL Normal 0.70-1.30 [facility] Comment on above: Result Comment: The validity of the calculated GFR GFRAA in patients over 70 years has not been determined. Clinical correlation is essential. Performed By: #### L 500.4050, L100.0100 #### [facility] [address] [place], [address] ECRCL 67.20 ml/min Normal [facility] Comment on above: Performed By: #### L 500.4050, L100.0100 #### [facility] [address] [place], [address] EST GFR - AA 109 mL/min Normal >60 [facility] Comment on above: Result Comment: Afri can Belgian GFR Calc Performed By: #### L 500.4050, L100.0100 #### [facility] [address] [place], [address] GAP 6 Normal 5-15 [facility] Comment on above: Performed By: #### L 500.4050, L100.0100 #### [facility] [address] [place], [address] GFR/1.73 sq M.predicted among non-blacks MDRD (S/P/Bld) [Vol rate/Area] 90 mL/min/{1.73_m2} Normal >60 [facility] Comment on above: Result Comment: Non- GFR Calc Performed By: #### L 500.4050, L100.0100 #### [facility] [facility] [address] [place], [address] Globulin (S) [Mass/Vol] 3.1 g/dL Normal 2.2-4.2 [facility] Comment on above: Performed By: #### L 500.4050, L100.0100 #### [facility] [address] [place], [address] Glucose [Mass/Vol] 102 mg/dL Normal 74-106 [facility] Comment on above: Result Comment: Fast ing Glucose result from 100 to 125 mg/dL suggests IMPAIRED HOMEOSTASIS per A.D.A. criteria. Performed By: #### L 500.4050, L100.0100 #### [facility] [address] [place], [address] Potassium [Moles/Vol] 3.4 mmol/L Low 3.5-5.1 [facility] Comment on above: Performed By: #### L 500.4050, L100.0100 #### [facility] [address] [place], [address] Sodium [Moles/Vol] 137 mmol/L Normal 136-145 [facility] Comment on above: Performed By: #### L 500.4050, L100.0100 #### [facility] [address] [place], [address] T PROT 5.9 g/dL Low 6.4-8.2 [facility] Comment on above: Performed By: #### L 500.4050, L100.0100 #### [facility] [address] [place], [address] Urea nitrogen [Mass/Vol] 25 mg/dL High 7-18 [facility] Comment on above: Performed By: #### L 500.4050, L100.0100 #### [facility] [address] [place], [address] [facility] 05-19-2024 [facility] Telephone (NEMSHAYAN) STACYDENIZ ([id number]) 1935 M Date Time Provider Department 05/19/24 BONIFACIO LEDBETTER During your visit today, we recorded the following information about you: Leanne Tejada RN 05/19/2024 11:50 AM Signed Patient's sister Gerri Barnes calling and would like Dr. Ledbetter to know that patient had a recent fall and is now at [facility] for therapy. Sister Gerri asking if Dr. Ledbetter would like to add any specific exercises to pt's regimen there? Please call Gerri with reply at [phone]. LEATHA Campa William J Jr., MD 05/19/2024 8:47 PM Signed Defer to those providers following patient at the transitional care unit. Rosa Retana MD, LPN 05/20/2024 8:57 AM Signed Spoke to Gerri, advised of message below. Verbalized understanding. Rosa Steiner LPN May 20, 2024 8:57 AM Allergies As of Date: 05/19/2024 Noted Allergy Reaction [id number] REDUCTASE INHIBIT*08/23/2023 17 - Myalgia Comments: Weakess, falls CLEARASIL MAXIMUM STRENGTH 09/16/2018 7 - Swelling Date Reviewed: 03/16/2024 Reviewed by: Bonifacio Ledbetter Jr., MD - Fully Assessed Reason for Visit: Patient Question [[id number]] Prescriptions as of 05/20/2024 - tolterodine (DETROL) [...] Status:Closed by ROSA STEINER on 05/20/24 Normal [facility] Basic Metabolic Profile (BMP )on 05-18-2024 BUN/CRE 24.9 RATIO High 04-19 [facility] Comment on above: Performed By: #### L 100.0100, L500.2500 ####[facility] [address] [place], [address] CA,Total 9.0 mg/dL Normal 8.5-10.1 [facility] Comment on above: Performed By: #### L 100.0100, L500.2500 ####[facility] [address] [place], [address] Chloride [Moles/Vol] 108 mmol/L High 98-107 [facility] Comment on above: Performed By: #### L 100.0100, L500.2500 ####[facility] [address] [place], [address] CO2 [Moles/Vol] 24.0 mmol/L Normal 21.0-32.0 [facility] Comment on above: Performed By: #### L 100.0100, L500.2500 ####[facility] [address] [place], [address] Creatinine [Mass/Vol] 0.72 mg/dL Normal 0.70-1.30 [facility] Comment on above: Result Comment: The validity of the calculated GFR GFRAA in patients over 70 years has not been determined. Clinical correlation is essential. Performed By: #### L 100.0100, L500.2500 ####[facility] [address] [place], [address] ECRCL 78.43 ml/min Normal [facility] Comment on above: Performed By: #### L 100.0100, L500.2500 ####[facility] [address] [place], [address] EST GFR - AA 132 mL/min Normal >60 [facility] Comment on above: Result Comment: Afri can Belgian GFR Calc Performed By: #### L 100.0100, L500.2500 ####[facility] [address] [place], [address] GAP 5 Normal 5-15 [facility] Comment on above: Performed By: #### L 100.0100, L500.2500 ####[facility] [address] [place], [address] GFR/1.73 sq M.predicted among non-blacks MDRD (S/P/Bld) [Vol rate/Area] 109 mL/min/{1.73_m2} Normal >60 [facility] Comment on above: Result Comment: Non- GFR Calc Performed By: #### L 100.0100, L500.2500 ####[facility] [address] [place], [address] Glucose [Mass/Vol] 109 mg/dL High 74-106 [facility] Comment on above: Result Comment: Fast ing Glucose result from 100 to 125 mg/dL suggests IMPAIRED HOMEOSTASIS per A.D.A. criteria. Performed By: #### L 100.0100, L500.2500 ####[facility] [address] [place], [address] Potassium [Moles/Vol] 3.5 mmol/L Normal 3.5-5.1 [facility] Comment on above: Performed By: #### L 100.0100, L500.2500 ####[facility] [address] [place], [address] Sodium [Moles/Vol] 138 mmol/L Normal 136-145 [facility] Comment on above: Performed By: #### L 100.0100, L500.2500 ####[facility] [address] [place], [address] Urea nitrogen [Mass/Vol] 18 mg/dL Normal 7-18 [facility] Comment on above: Performed By: #### L 100.0100, L500.2500 ####[facility] [address] [place], [address] CBC W/Diff, Automatedon 05-01 Absolute Lymph 0.89 X10 3/uL Normal 0.83-4.51 [facility] Comment on above: Performed By: #### L 100.0100, L500.2500 ####[facility] [address] [place], [address] Absolute Neut 3.7 X10 3/uL Normal 2.0-7.7 [facility] Comment on above: Performed By: #### L 100.0100, L500.2500 ####[facility] [address] [place], [address] Basophils/100 WBC (Bld) 0.2 % Normal 0-1 [facility] Comment on above: Performed By: #### L 100.0100, L500.2500 ####[facility] [address] [place], [address] Eosinophils/100 WBC (Bld) 0.2 % Normal 0-5 [facility] Comment on above: Performed By: #### L 100.0100, L500.2500 ####[facility] [address] [place], [address] Erythrocyte distribution width (RBC) [Ratio] 12.7 % Normal 11.6-14.6 [facility] Comment on above: Performed By: #### L 100.0100, L500.2500 ####[facility] [address] [place], [address] Hematocrit (Bld) [Volume fraction] 47.5 % Normal 40-54 [facility] Comment on above: Performed By: #### L 100.0100, L500.2500 ####[facility] [address] [place], [address] Hemoglobin (Bld) [Mass/Vol] 15.9 g/dL Normal 13.0-16.5 [facility] Comment on above: Performed By: #### L 100.0100, L500.2500 ####[facility] [address] [place], [address] IG% 1.100 High 0.0-0.9 [facility] Comment on above: Result Comment: IG% - Immature Granulocytes (promyelocytes, myelocytes and metamyelocytes) > 1% indicates that a LEFT SHIFT is Present. Performed By: #### L 100.0100, L500.2500 ####[facility] [address] [place], [address] Lymphocytes/100 WBC (Bld) 14.4 % Low 19-41 [facility] Comment on above: Performed By: #### L 100.0100, L500.2500 ####[facility] [address] [place], [address] MCH (RBC) [Entitic mass] 29.7 pg Normal 27.0-32.0 [facility] Comment on above: Performed By: #### L 100.0100, L500.2500 ####[facility] [address] [place], [address] MCHC (RBC) [Mass/Vol] 33.5 g/dL Normal 32-36 [facility] Comment on above: Performed By: #### L 100.0100, L500.2500 ####[facility] [address] [place], [address] MCV (RBC) [Entitic vol] 88.6 fL Normal 80-94 [facility] Comment on above: Performed By: #### L 100.0100, L500.2500 ####[facility] [address] [place], [address] Monocytes/100 WBC (Bld) 24.2 % High 0-10 [facility] Comment on above: Performed By: #### L 100.0100, L500.2500 ####[facility] [address] [place], [address] Neutrophils/100 WBC (Bld) 59.9 % Normal 47-70 [facility] Comment on above: Performed By: #### L 100.0100, L500.2500 ####[facility] [address] [place], [address] Nucleated RBC (Bld) [#/Vol] 0 10*3/uL Normal 0-5 [facility] Comment on above: Performed By: #### L 100.0100, L500.2500 ####[facility] [address] [place], [address] Platelet mean volume (Bld) [Entitic vol] 11.5 fL Normal 6.2-12.0 [facility] Comment on above: Performed By: #### L 100.0100, L500.2500 ####[facility] [address] [place], [address] Platelets (Bld) [#/Vol] 120 10*3/uL Low 150-450 [facility] Comment on above: Performed By: #### L 100.0100, L500.2500 ####[facility] [address] [place], [address] RBC (Bld) [#/Vol] 5.36 10*6/uL Normal 4.6-6.2 [facility] Comment on above: Performed By: #### L 100.0100, L500.2500 ####[facility] [address] [place], [address] RDW SD 41.2 fl Normal 35.1-43.9 [facility] Comment on above: Performed By: #### L 100.0100, L500.2500 ####[facility] [address] [place], [address] WBC (Bld) [#/Vol] 6.2 10*3/uL Normal 4.4-11.0 [facility] Comment on above: Performed By: #### L 100.0100, L500.2500 ####[facility] [address] [place], [address] Basic Metabolic Profile (BMP )on 05-17-2024 BUN/CRE 27.5 RATIO High 10-20 [facility] Comment on above: Performed By: #### L 500.2500, L100.0500 #### [facility] [address] [place], [address] CA,Total 8.7 mg/dL Normal 8.5-10.1 [facility] Comment on above: Performed By: #### L 500.2500, L100.0500 #### [facility] [address] [place], [address] Chloride [Moles/Vol] 108 mmol/L High 98-107 [facility] Comment on above: Performed By: #### L 500.2500, L100.0500 #### [facility] [address] [place], [address] CO2 [Moles/Vol] 27.0 mmol/L Normal 21.0-32.0 [facility] Comment on above: Performed By: #### L 500.2500, L100.0500 #### [facility] [address] [place], [address] Creatinine [Mass/Vol] 0.73 mg/dL Normal 0.70-1.30 [facility] Comment on above: Result Comment: The validity of the calculated GFR GFRAA in patients over 70 years has not been determined. Clinical correlation is essential. Performed By: #### L 500.2500, L100.0500 #### [facility] [address] [place], [address] ECRCL 78.43 ml/min Normal [facility] Comment on above: Performed By: #### L 500.2500, L100.0500 #### [facility] [address] [place], [address] EST GFR - AA 131 mL/min Normal >60 [facility] Comment on above: Result Comment: Afri can Belgian GFR Calc Performed By: #### L 500.2500, L100.0500 #### [facility] [address] [place], [address] GAP 5 Normal 5-15 [facility] Comment on above: Performed By: #### L 500.2500, L100.0500 #### [facility] [address] [place], [address] GFR/1.73 sq M.predicted among non-blacks MDRD (S/P/Bld) [Vol rate/Area] 108 mL/min/{1.73_m2} Normal >60 [facility] Comment on above: Result Comment: Non- GFR Calc Performed By: #### L 500.2500, L100.0500 #### [facility] [address] [place], [address] Glucose [Mass/Vol] 88 mg/dL Normal 74-106 [facility] Comment on above: Performed By: #### L 500.2500, L100.0500 #### [facility] [address] [place], [address] Potassium [Moles/Vol] 3.3 mmol/L Low 3.5-5.1 [facility] Comment on above: Performed By: #### L 500.2500, L100.0500 #### [facility] [address] [place], [address] Sodium [Moles/Vol] 140 mmol/L Normal 136-145 [facility] Comment on above: Performed By: #### L 500.2500, L100.0500 #### [facility] [address] [place], [address] Urea nitrogen [Mass/Vol] 20 mg/dL High 7-18 [facility] Comment on above: Performed By: #### L 500.2500, L100.0500 #### [facility] [address] [place], [address] CBC W/Diff, Automatedon 05-01 SMEAR COMMENT SCANNED Normal [facility] Comment on above: Performed By: #### L 500.2500, L100.0500 #### [facility] [address] [place], [address] Anisocytosis Ql (Bld) 1+ Normal [facility] Comment on above: Performed By: #### L 500.2500, L100.0500 #### [facility] [address] [place], [address] PLT EST ADEQUATE Normal ADEQ [facility] Comment on above: Performed By: #### L 500.2500, L100.0500 #### [facility] [address] [place], [address] Urinalysis, Completeon 05-17 RBC 0-5 SEEN Normal 0-5 [facility] Comment on above: Order Comment: Urine , Random Performed By: #### L 400.0001 ####[facility] [address] [place], [address] WBC 0-5 SEEN Normal 0-5 [facility] Comment on above: Order Comment: Urine , Random Performed By: #### L 400.0001 ####[facility] [address] [place], [address] BACTERIA 0 SEEN Normal None Seen [facility] Comment on above: Order Comment: Urine , Random Performed By: #### L 400.0001 ####[facility] [address] [place], [address] EPI,SQUAMOUS 0 SEEN Normal 0-5 [facility] Comment on above: Order Comment: Urine , Random Performed By: #### L 400.0001 ####[facility] [address] [place], [address] Mucus Ql (Urine sed) 0 SEEN Normal [facility] Comment on above: Order Comment: Urine , Random Performed By: #### L 400.0001 ####[facility] [address] [place], [address] Basic Metabolic Profile (BMP )on 05-16-2024 BUN/CRE 32.5 RATIO High 10-20 [facility] Comment on above: Performed By: #### L 500.2500, L100.0500 #### [facility] [address] [place], [address] CA,Total 8.6 mg/dL Normal 8.5-10.1 [facility] Comment on above: Performed By: #### L 500.2500, L100.0500 #### [facility] [address] [place], [address] Chloride [Moles/Vol] 109 mmol/L High 98-107 [facility] Comment on above: Performed By: #### L 500.2500, L100.0500 #### [facility] [address] [place], [address] CO2 [Moles/Vol] 27.0 mmol/L Normal 21.0-32.0 [facility] Comment on above: Performed By: #### L 500.2500, L100.0500 #### [facility] [address] [place], [address] Creatinine [Mass/Vol] 0.83 mg/dL Normal 0.70-1.30 [facility] Comment on above: Result Comment: The validity of the calculated GFR GFRAA in patients over 70 years has not been determined. Clinical correlation is essential. Performed By: #### L 500.2500, L100.0500 #### [facility] [address] [place], [address] ECRCL 75.60 ml/min Normal [facility] Comment on above: Performed By: #### L 500.2500, L100.0500 #### [facility] [address] [place], [address] EST GFR - AA 112 mL/min Normal >60 [facility] Comment on above: Result Comment: Afri can Belgian GFR Calc Performed By: #### L 500.2500, L100.0500 #### [facility] [address] [place], [address] GAP 6 Normal 5-15 [facility] Comment on above: Performed By: #### L 500.2500, L100.0500 #### [facility] [address] [place], [address] GFR/1.73 sq M.predicted among non-blacks MDRD (S/P/Bld) [Vol rate/Area] 93 mL/min/{1.73_m2} Normal >60 [facility] Comment on above: Result Comment: Non- GFR Calc Performed By: #### L 500.2500, L100.0500 #### [facility] [address] [place], [address] Glucose [Mass/Vol] 86 mg/dL Normal 74-106 [facility] Comment on above: Performed By: #### L 500.2500, L100.0500 #### [facility] [address] [place], [address] Potassium [Moles/Vol] 3.3 mmol/L Low 3.5-5.1 [facility] Comment on above: Performed By: #### L 500.2500, L100.0500 #### [facility] [address] [place], [address] Sodium [Moles/Vol] 142 mmol/L Normal 136-145 [facility] Comment on above: Performed By: #### L 500.2500, L100.0500 #### [facility] [address] [place], [address] Urea nitrogen [Mass/Vol] 27 mg/dL High 7-18 [facility] Comment on above: Performed By: #### L 500.2500, L100.0500 #### [facility] [address] [place], [address] CBC-Complete Blood Cnt No Di ffon 05-16-2024 Erythrocyte distribution width (RBC) [Ratio] 12.8 % Normal 11.6-14.6 [facility] Comment on above: Performed By: #### L 500.2500, L100.0500 #### [facility] [address] [place], [address] Hematocrit (Bld) [Volume fraction] 41.1 % Normal 40-54 [facility] Comment on above: Performed By: #### L 500.2500, L100.0500 #### [facility] [address] [place], [address] Hemoglobin (Bld) [Mass/Vol] 13.7 g/dL Normal 13.0-16.5 [facility] Comment on above: Performed By: #### L 500.2500, L100.0500 #### [facility] [address] [place], [address] MCH (RBC) [Entitic mass] 30.4 pg Normal 27.0-32.0 [facility] Comment on above: Performed By: #### L 500.2500, L100.0500 #### [facility] [address] [place], [address] MCHC (RBC) [Mass/Vol] 33.3 g/dL Normal 32-36 [facility] Comment on above: Performed By: #### L 500.2500, L100.0500 #### [facility] [address] [place], [address] MCV (RBC) [Entitic vol] 91.1 fL Normal 80-94 [facility] Comment on above: Performed By: #### L 500.2500, L100.0500 #### [facility] [address] [place], [address] Platelet mean volume (Bld) [Entitic vol] 12.0 fL Normal 6.2-12.0 [facility] Comment on above: Performed By: #### L 500.2500, L100.0500 #### [facility] [address] [place], [address] Platelets (Bld) [#/Vol] 104 10*3/uL Low 150-450 [facility] Comment on above: Performed By: #### L 500.2500, L100.0500 #### [facility] [address] [place], [address] RBC (Bld) [#/Vol] 4.51 10*6/uL Low 4.6-6.2 [facility] Comment on above: Performed By: #### L 500.2500, L100.0500 #### [facility] [address] [place], [address] RDW SD 42.4 fl Normal 35.1-43.9 [facility] Comment on above: Performed By: #### L 500.2500, L100.0500 #### [facility] [address] [place], [address] WBC (Bld) [#/Vol] 5.6 10*3/uL Normal 4.4-11.0 [facility] Comment on above: Performed By: #### L 500.2500, L100.0500 #### [facility] [address] [place], [address] CRPon 05-16-2024 C-REACTIVE PROT 5.99 mg/L High 0.0-3.0 [facility] Comment on above: Order Comment: 208.1 Result Comment: C-Re active Protein (CRP) provides useful information for the diagnosis, therapy and monitoring of inflammatory processes and associated diseases. For the evaluation of Relative Risk for Cardiovascular Disease, a High Sensitivity CRP (HSCRP) should be ordered. Performed By: #### L 500.2500, L100.0500, L501.5200 #### [facility] [address] [place], [address] Erythrocyte Sed Rateon 05-16 SED RATE 5 mm/hr Normal 0-20 [facility] Comment on above: Order Comment: 208.1 Performed By: #### L 500.2500, L100.0500, L501.5200 #### [facility] [address] [place], [address] Phosphoruson 05-16-2024 Phosphate [Mass/Vol] 2.2 mg/dL Low 2.5-4.9 [facility] Comment on above: Performed By: #### L 500.2500, L100.0500 #### [facility] [address] [place], [address] 12 Lead EKGon 05-15-2024 12 Lead EKG [facility] Cardiovascular Services [address] [place] [address] 12 Lead EKG 05/15/24 1313 MR#: [id number] Acct: [id number] Name: DENIZ KUMAR Rep #: [id number] : 1935 88 From: Pierre Mcgee MD Attending Dr: Dr. Kendall Dowling, DO Status: ADM ROSHNI Ordering Dr: Mark Boudreaux DO Date: 4 Location: [facility] Sex: M C Admitted: 05/15/24 Test [...] Abnormal ECG Confirmed by DELPHINE RICH, CEDRIC ([id number]), supervising editor news reel ADELSO QUINTANA ([id number]) on 05/19/2024 7:55:55 AM Referred By: Confirmed By: CEDRIC MCGEE MD 05/19/24 0755 Date Pierre Mcgee MD CC: Dr. Mark Boudreaux DO; Dr. Kendall Dowling DO; Dr. Vadim Deras MD Signed [facility] 12 Lead EKG [facility] Cardiovascular Services [address] [place] [address] 12 Lead EKG 05/15/24 1114 MR#: [id number] Acct: [id number] Name: DENIZ KUMAR Rep #: [id number] : 1935 88 From: Pierre Mcgee MD Attending Dr: Dr. Kendall Dowling DO Status: ADM ROSHNI Ordering Dr: Mark Boudreaux DO Date: 4 Location: [facility] Sex: M C Admitted: 05/15/24 Test [...] ECG Confirmed by DELPHINE RICH, CEDRIC ([id number]), supervising editor news reel ADELSO QUINTANA ([id number]) on 05/19/2024 7:55:44 AM Referred By: Confirmed By: CEDRIC MCGEE MD 05/19/24 0755 Date Pierre Mcgee MD CC: Dr. Mark Boudreaux DO; Dr. Kendall Dowling DO; Dr. Vadim Deras MD Signed [facility] Basic Metabolic Profile (BMP )on 05-15-2024 BUN/CRE 32.5 RATIO High 10-20 [facility] Comment on above: Order Comment: 'TROP ' Serial specimen #1, #2 or #3: 1 Performed By: #### L 500.2500, L100.0500 #### [facility] [address] [place], [address] CA,Total 9.1 mg/dL Normal 8.5-10.1 [facility] Comment on above: Order Comment: 'TROP ' Serial specimen #1, #2 or #3: 1 Performed By: #### L 500.2500, L100.0500 #### [facility] [address] [place], [address] Chloride [Moles/Vol] 107 mmol/L Normal 98-107 [facility] Comment on above: Order Comment: 'TROP ' Serial specimen #1, #2 or #3: 1 Performed By: #### L 500.2500, L100.0500 #### [facility] [address] [place], [address] CO2 [Moles/Vol] 28.0 mmol/L Normal 21.0-32.0 [facility] Comment on above: Order Comment: 'TROP ' Serial specimen #1, #2 or #3: 1 Performed By: #### L 500.2500, L100.0500 #### [facility] [address] [place], [address] Creatinine [Mass/Vol] 0.89 mg/dL Normal 0.70-1.30 [facility] Comment on above: Order Comment: 'TROP ' Serial specimen #1, #2 or #3: 1 Result Comment: The validity of the calculated GFR GFRAA in patients over 70 years has not been determined. Clinical correlation is essential. Performed By: #### L 500.2500, L100.0500 #### [facility] [address] [place], [address] ECRCL 71.03 ml/min Normal [facility] Comment on above: Order Comment: 'TROP ' Serial specimen #1, #2 or #3: 1 Performed By: #### L 500.2500, L100.0500 #### [facility] [address] [place], [address] EST GFR - AA 104 mL/min Normal >60 [facility] Comment on above: Order Comment: 'TROP ' Serial specimen #1, #2 or #3: 1 Result Comment: Afri can Belgian GFR Calc Performed By: #### L 500.2500, L100.0500 #### [facility] [address] [place], [address] GAP 6 Normal 5-15 [facility] Comment on above: Order Comment: 'TROP ' Serial specimen #1, #2 or #3: 1 Performed By: #### L 500.2500, L100.0500 #### [facility] [address] [place], [address] GFR/1.73 sq M.predicted among non-blacks MDRD (S/P/Bld) [Vol rate/Area] 86 mL/min/{1.73_m2} Normal >60 [facility] Comment on above: Order Comment: 'TROP ' Serial specimen #1, #2 or #3: 1 Result Comment: Non- GFR Calc Performed By: #### L 500.2500, L100.0500 #### [facility] [address] [place], [address] Glucose [Mass/Vol] 80 mg/dL Normal 74-106 [facility] Comment on above: Order Comment: 'TROP ' Serial specimen #1, #2 or #3: 1 Performed By: #### L 500.2500, L100.0500 #### [facility] [address] [place], [address] Potassium [Moles/Vol] 3.4 mmol/L Low 3.5-5.1 [facility] Comment on above: Order Comment: 'TROP ' Serial specimen #1, #2 or #3: 1 Performed By: #### L 500.2500, L100.0500 #### [facility] [address] [place], [address] Sodium [Moles/Vol] 141 mmol/L Normal 136-145 [facility] Comment on above: Order Comment: 'TROP ' Serial specimen #1, #2 or #3: 1 Performed By: #### L 500.2500, L100.0500 #### [facility] [address] [place], [address] Urea nitrogen [Mass/Vol] 29 mg/dL High 7-18 [facility] Comment on above: Order Comment: 'TROP ' Serial specimen #1, #2 or #3: 1 Performed By: #### L 500.2500, L100.0500 #### [facility] [address] [place], [address] CBC W/Diff, Automatedon 11-1 5-2023 Absolute Lymph 0.59 X10 3/uL Low 0.83-4.51 [facility] Comment on above: Performed By: #### L 500.2500, L100.0500 #### [facility] [address] [place], [address] Absolute Neut 5.3 X10 3/uL Normal 2.0-7.7 [facility] Comment on above: Performed By: #### L 500.2500, L100.0500 #### [facility] [address] [place], [address] Basophils/100 WBC (Bld) 0.3 % Normal 0-1 [facility] Comment on above: Performed By: #### L 500.2500, L100.0500 #### [facility] [address] [place], [address] Eosinophils/100 WBC (Bld) 0.0 % Normal 0-5 [facility] Comment on above: Performed By: #### L 500.2500, L100.0500 #### [facility] [address] [place], [address] Erythrocyte distribution width (RBC) [Ratio] 12.7 % Normal 11.6-14.6 [facility] Comment on above: Performed By: #### L 500.2500, L100.0500 #### [facility] [address] [place], [address] Hematocrit (Bld) [Volume fraction] 45.0 % Normal 40-54 [facility] Comment on above: Performed By: #### L 500.2500, L100.0500 #### [facility] [address] [place], [address] Hemoglobin (Bld) [Mass/Vol] 15.1 g/dL Normal 13.0-16.5 [facility] Comment on above: Performed By: #### L 500.2500, L100.0500 #### [facility] [address] [place], [address] IG% 2.400 High 0.0-0.9 [facility] Comment on above: Result Comment: IG% - Immature Granulocytes (promyelocytes, myelocytes and metamyelocytes) > 1% indicates that a LEFT SHIFT is Present. Performed By: #### L 500.2500, L100.0500 #### [facility] [address] [place], [address] Lymphocytes/100 WBC (Bld) 7.8 % Low 19-41 [facility] Comment on above: Performed By: #### L 500.2500, L100.0500 #### [facility] [address] [place], [address] MCH (RBC) [Entitic mass] 30.8 pg Normal 27.0-32.0 [facility] Comment on above: Performed By: #### L 500.2500, L100.0500 #### [facility] [address] [place], [address] MCHC (RBC) [Mass/Vol] 33.6 g/dL Normal 32-36 [facility] Comment on above: Performed By: #### L 500.2500, L100.0500 #### [facility] [address] [place], [address] MCV (RBC) [Entitic vol] 91.8 fL Normal 80-94 [facility] Comment on above: Performed By: #### L 500.2500, L100.0500 #### [facility] [address] [place], [address] Monocytes/100 WBC (Bld) 19.5 % High 0-10 [facility] Comment on above: Performed By: #### L 500.2500, L100.0500 #### [facility] [address] [place], [address] Neutrophils/100 WBC (Bld) 70.0 % Normal 47-70 [facility] Comment on above: Performed By: #### L 500.2500, L100.0500 #### [facility] [address] [place], [address] Nucleated RBC (Bld) [#/Vol] 0 10*3/uL Normal 0-5 [facility] Comment on above: Performed By: #### L 500.2500, L100.0500 #### [facility] [address] [place], [address] Platelet mean volume (Bld) [Entitic vol] 12.1 fL High 6.2-12.0 [facility] Comment on above: Performed By: #### L 500.2500, L100.0500 #### [facility] [address] [place], [address] Platelets (Bld) [#/Vol] 102 10*3/uL Low 150-450 [facility] Comment on above: Performed By: #### L 500.2500, L100.0500 #### [facility] [address] [place], [address] RBC (Bld) [#/Vol] 4.90 10*6/uL Normal 4.6-6.2 [facility] Comment on above: Performed By: #### L 500.2500, L100.0500 #### [facility] [address] [place], [address] RDW SD 43.1 fl Normal 35.1-43.9 [facility] Comment on above: Performed By: #### L 500.2500, L100.0500 #### [facility] [address] [place], [address] WBC (Bld) [#/Vol] 7.6 10*3/uL Normal 4.4-11.0 [facility] Comment on above: Performed By: #### L 500.2500, L100.0500 #### [facility] [address] [place], [address] Chest 1 View (Portable)on Chest 1 View (Portable) [facility] Imaging Services [address] [place] [address] Chest 1 View (Portable) MR#: [id number] Acct: [id number] Name: DENIZ KUMAR [place] Rep #: [id number] : 1935 M 88 From: Kelton Dwyer MD PCP: Dr. Vadim Deras MD Status: [facility] ER Study: Chest 1 View (Portable) Date of Exam: 05/15/24 Exam# [id number] Ordering Dr: [place] [id number] EXAM: XR CHEST, 1 VIEW CLINICAL INDICATION: [...] Signed: Kelton Dwyer MD at 11:27 EST Reading Location ID and State: [facility] / [place] , Service support , CC: Dr. Mark Boudreaux DO; Dr. Vadim Deras MD Chief Revenue Officer: Signed Normal [facility] Echo Completeon 05-15-2024 Echo Complete [facility] Cardiovascular Services [address] [place] [address] Echo Complete 05/15/24 1532 MR#: [id number] Acct: [id number] Name: DENIZ KUMAR Rep #: [id number] : 1935 88 From: Pierre Mcgee MD Attending Dr: Dr. Elroy Nunez MD Status : ADM ORSHNI Ordering Dr: Jon Arce DO Date: 05/15/24 Location: PCU Sex: M C Admitted: 05/15/24 Reason For [...] Date Dictated: 05/15/24 1532 Date Transcribed: 05/16/241758 Chief Revenue Officer: Signed Normal [facility] Emergency Department Summary on 05-15-2024 Emergency Department Summary [facility] Medical Records Department [address] [place] [address] Emergency Department Summary 05/15/24 MR#: [id number] Acct: [id number] Name: DENIZ KUMAR Rep #: [id number] : 1935 88 From: Mark Boudreaux DO PCP: Dr. Vadim Deras MD Status:ADM IN Location: [place] [address] HPI History of Present Illness Chief Complaint: [...] deficits Psych: Cooperative, appropriate mood and affect [facility] Medical History (Updated 05/15/24 @ 10:49 by [...] (1/2 x 50 mg) PO DAILY #0 01/16/24 Unknown Rx tabs clonidine HCl 0.1 mg [...] (Dog) Smokin (more content not included)... Normal [facility] H AND P Exam - Hospitaliston 05-15-2024 H&P Exam - Hospitalist [facility] Medical Records Department [address] [place] [address] H P Exam - Hospitalist 05/15/24 1331 MR#: [id number] Acct: [id number] Name: DENIZ KUMAR Rep #: [id number] : 1935 88 From: Jon Arce DO PCP: Dr. Vadim Deras MD Status:ADM IN [facility] - General General Date of Admission: 05/15/24 Date of Service: 05/15/24 Chief Complaint: Worsening leg weakness and difficulty with ambulation HPI Narrative DENIZ KUMAR, is a 88 M who presented to [facility] ED on 05/15/2024 with worsening leg weakness [...] currently. Will be admitted for further management. [facility] Medical History (Updated 05/15/24 @ 17:21 by [...] internal fixation (ORIF) procedure Social History (Updated 12/29/23 @ 16:[address] Mirian Farris DO) household members: none housi (more content not included)... Normal [facility] L501.4020on 05-15-2024 TROPONIN-I HS 97 pg/mL High 3.0-78.0 [facility] Comment on above: Order Comment: 'TROP ' Serial specimen #1, #2 or #3: 3 Result Comment: Plea se Note: New Test Units and Gender Specific Reference Ranges. For more information see Policy Stat Procedure [place] High Sensitivity Troponin (TNIH) and attachments. Performed By: #### L 500.2500, L100.0500 #### [facility] [address] [place], [address] TROPONIN-I HS 96 pg/mL High 3.0-78.0 [facility] Comment on above: Order Comment: 'TROP ' Serial specimen #1, #2 or #3: 2 Result Comment: Plea se Note: New Test Units and Gender Specific Reference Ranges. For more information see Policy Stat Procedure [facility] High Sensitivity Troponin (TNIH) and attachments. Performed By: #### L 500.2500, L100.0500 #### [facility] [address] [place], [address] TROPONIN-I HS 69 pg/mL Normal 3.0-78.0 [facility] Comment on above: Order Comment: 'TROP ' Serial specimen #1, #2 or #3: 1 Result Comment: Plea se Note: New Test Units and Gender Specific Reference Ranges. For more information see Policy Stat Procedure [facility] High Sensitivity Troponin (TNIH) and attachments. Performed By: #### L 500.2500, L100.0500 #### [facility] [address] [place], [address] Lumbar Spine 2 or 3 Viewson 05-15-2024 Lumbar Spine 2 or 3 Views [facility] Imaging Services [address] [place] [address] Lumbar Spine 2 or 3 Views MR#: [id number] Acct: [id number] Name: DENIZ KUMAR Rep #: [id number] : 1935 M 88 From: Kelton Dwyer MD PCP: Dr. Vadim Deras MD Status: ADM IN Study: Lumbar Spine 2 or 3 Views Date of Exam: Exam# [id number] Ordering Dr: [place] [id number] EXAM: XR LUMBOSACRAL SPINE, 2 OR 3 [...] at 14:51 EST , CC: Dr. Jon Arce DO; Dr. Vadim Deras MD Chief Revenue Officer: Signed Normal [facility] Magnesiumon 05-15-2024 Magnesium [Mass/Vol] 1.8 mg/dL Normal 1.6-2.6 [facility] Comment on above: Order Comment: 'TROP ' Serial specimen #1, #2 or #3: 2 Performed By: #### L 500.2500, L100.0500 #### [facility] [address] [place], [address] Urinalysis, Completeon 05-15 BACTERIA RARE Normal None Seen [facility] Comment on above: Order Comment: CLEAN CATCH Performed By: #### L 500.2500, L100.0500 #### [facility] [address] [place], [address] RBC 0-5 SEEN Normal 0-5 [facility] Comment on above: Order Comment: CLEAN CATCH Performed By: #### L 500.2500, L100.0500 #### [facility] [address] [place], [address] BILIRUBIN URINE Negative Normal Negative [facility] Comment on above: Order Comment: CLEAN CATCH Performed By: #### L 500.2500, L100.0500 #### [facility] [address] [place], [address] Clarity (U) Clear Normal Clear [facility] Comment on above: Order Comment: CLEAN CATCH Performed By: #### L 500.2500, L100.0500 #### [facility] [address] [place], [address] Color (U) Straw Normal Yellow [facility] Comment on above: Order Comment: CLEAN CATCH Performed By: #### L 500.2500, L100.0500 #### [facility] [address] [place], [address] GLUCOSE, UR Normal Normal Normal [facility] Comment on above: Order Comment: CLEAN CATCH Performed By: #### L 500.2500, L100.0500 #### [facility] [address] [place], [address] KETONE UR Negative Normal Negative [facility] Comment on above: Order Comment: CLEAN CATCH Performed By: #### L 500.2500, L100.0500 #### [facility] [address] [place], [address] LEUK ESTERASE Negative Normal Negative [facility] Comment on above: Order Comment: CLEAN CATCH Performed By: #### L 500.2500, L100.0500 #### [facility] [address] [place], [address] Nitrite Ql (U) Negative Normal Negative [facility] Comment on above: Order Comment: CLEAN CATCH Performed By: #### L 500.2500, L100.0500 #### [facility] [address] [place], [address] OCCULT BLOOD-UR 25 /ul Abnormal Negative [facility] Comment on above: Order Comment: CLEAN CATCH Performed By: #### L 500.2500, L100.0500 #### [facility] [address] [place], [address] pH UR 7.0 Normal 5.0 - 8.0 [facility] Comment on above: Order Comment: CLEAN CATCH Performed By: #### L 500.2500, L100.0500 #### [facility] [address] [place], [address] PROT DIPSTX 30 mg/dl Abnormal Negative [facility] Comment on above: Order Comment: CLEAN CATCH Performed By: #### L 500.2500, L100.0500 #### [facility] [address] [place], [address] SP.GR. DIPSTX 1.010 Normal 1.002-1.030 [facility] Comment on above: Order Comment: CLEAN CATCH Performed By: #### L 500.2500, L100.0500 #### [facility] [address] [place], [address] UROBILI Normal Normal Normal [facility] Comment on above: Order Comment: CLEAN CATCH Performed By: #### L 500.2500, L100.0500 #### [facility] [address] [place], [address] EPI,SQUAMOUS 0 SEEN Normal 0-5 [facility] Comment on above: Order Comment: CLEAN CATCH Performed By: #### L 500.2500, L100.0500 #### [facility] [address] [place], [address] Mucus Ql (Urine sed) 0 SEEN Normal [facility] Comment on above: Order Comment: CLEAN CATCH Performed By: #### L 500.2500, L100.0500 #### [facility] [address] [place], [address] WBC 0 SEEN Normal 0-5 [facility] Comment on above: Order Comment: CLEAN CATCH Performed By: #### L 500.2500, L100.0500 #### [facility] [address] [place], [address] [facility] Telephone (INTMWS) DENIZ KUMAR ([id number]) 1935 M Date Time Provider Department 04/27/24 VADIM DERAS INTWS During your visit today, we recorded the following information about you: Reese Murcia RN 04/27/2024 8:14 AM Signed Patient reports he had cancelled the tolterodine at the pharmacy, and since then has changed his mind, and would like to try it, for his BPH w/urgency of urination. Asking if pcp would resend this Rx to [facility]. Pended. Allergies As of Date: 04/27/2024 Noted Allergy Reaction IOWGMHP-OBH-EMJ REDUCTASE INHIBIT*08/23/2023 17 - Myalgia Comments: Weakess, falls CLEARASIL MAXIMUM STRENGTH 09/16/2018 7 - Swelling Date Reviewed: 03/16/2024 Reviewed by: Bonifacio Ledbetter Jr., MD - Fully Assessed Reason for Visit: Patient Question [4813] Visit Diagnoses:Benign prostatic hyperplasia with urinary obstruction [...] Encounter Status:Closed by VADIM DERAS on 04/27/24 [facility] CNPRadha 04-13-2024 CNPN Telephone (SLEWST) DENIZ KUMAR ([id number]) 1935 M Date Time Provider Department 04/13/24 BONIFACIO LEDBETTER JR During your visit today, we recorded the following information about you: Robina Coats LPN 04/13/2024 8:27 AM Signed ----- Message from [...] As of Date: 04/13/2024 Noted Allergy Reaction LXIISTG-GRP-BDC REDUCTASE INHIBIT*08/23/2023 17 - Myalgia Comments: Weakess, [...] Encounter Status:Closed by ROBINA COATS on 07/20/24 [facility]20[facility] DENIZ [facility]UM[facility] ([id number]) 1935 M Date Time Provider Department 04/12/24 BONIFACIO LEDBETTER JR During your visit today, we recorded the following information about you: Allergies As of Date: 04/12/2024 Noted Allergy Reaction YZEXURZ-QDD-XHC REDUCTASE INHIBIT*08/23/2023 17 - Myalgia Comments: Weakess, falls CLEARASIL MAXIMUM STRENGTH 09/16/2018 7 - Swelling Date Reviewed: 03/16/2024 Reviewed by: Bonifacio Ledbetter Jr., MD - Fully Assessed Primary Visit Diagnosis:Cervical stenosis of spine [M48.02] Other Visit Diagnosis:Spinal stenosis of lumbar region, unspecified whether neurogenic claudication present [M48.061] Order(s):CONSULT TO [facility] [236590] Order #: [id number]: 1 FUTURE Prescriptions as of 04/12/2024 - [...] Status:Closed by BONIFACIO LEDBETTER on 04/12/24 Normal [facility] MR Brain WO contraston 04-10 IMPRESSION: No acute intracranial pathology. Chief Revenue Officer: KATIA Transcribe Date/Time: Apr 10 2024 9:04A Dictated by : KASEY IBANEZ MD This examination was interpreted and the report reviewed and electronically signed by: KASEY IBANEZ MD on Apr 10 2024 9:08AM [facility] DIVISION OF RADIOLOGY * * *Final Report* * * DATE OF EXAM: Apr 10 2024 8:43AM [facility] 0294 - MRI BRAIN WO IVCON [...] tissues are unremarkable. DIVISION OF RADIOLOGY Provider, [facility] - 04/10/2024 * * *Final Report* * * DATE OF EXAM: Apr 10 2024 8:43AM [facility] 0294 - MRI BRAIN WO IVCON [...] unremarkable. IMPRESSION IMPRESSION: No acute intracranial pathology. Chief Revenue Officer: PSCB Transcribe Date/Time: Apr 10 2024 9:04A Dictated by : KASEY IBANEZ MD This examination was interpreted and the report reviewed and electronically signed by: KASEY IBANEZ MD on Apr 10 2024 9:08AM EST [facility] MR Brain WO contrastOrdered By: Ccf Provider on 04-10-2024 [facility] MR Cervical spine WO contras ton 04-10-2024 * * *Final Report* * * DATE OF EXAM: Apr 10 2024 8:43AM [facility] 0297 - MRI CERVICAL SPINE WO IVCON [...] normal in appearance. DIVISION OF RADIOLOGY Provider, [facility] - 04/10/2024 * * *Final Report* * [...] and assume there are 5 lumbar-type vertebrae. Chief Revenue Officer: PSCB Transcribe Date/Time: Apr 10 2024 9:08A Dictated by : KASEY IBANEZ MD This examination was interpreted and the report reviewed and electronically signed by: KASEY IBANEZ MD on Apr 10 2024 9:19AM EST [facility] MR Lumbar spine WO contrasto n 04-10-2024 * * *Final Report* * * [...] normal in appearance. DIVISION OF RADIOLOGY Provider, [facility] - 04/10/2024 * * *Final Report* * * DATE OF EXAM: Apr 10 2024 8:43AM [facility] 0303 - MRI LUMBAR SPINE WO IVCON [...] and assume there are 5 lumbar-type vertebrae. Chief Revenue Officer: PSCB Transcribe Date/Time: Apr 10 2024 9:08A Dictated by : KASEY IBANEZ MD This examination was interpreted and the report reviewed and electronically signed by: KASEY IBANEZ MD on Apr 10 2024 9:19AM [facility] MRI BRAIN WO IVCONon 04-10- 024 MRI BRAIN WO IVCON * * *Final Report* * * DATE OF EXAM: Apr 10 2024 8:43AM [facility] 0294 - MRI BRAIN WO IVCON [...] are unremarkable. IMPRESSION: No acute intracranial pathology. Chief Revenue Officer: KATIA Transcribe Date/Time: Apr 10 2024 9:04A Dictated by : KASEY IBANEZ MD This examination was interpreted and the report reviewed and electronically signed by: KASEY IBANEZ MD on Apr 10 2024 9:08AM EST [id number] Normal [facility] MRI CERVICAL SPINE WO IVCONo n 04-10-2024 MRI CERVICAL SPINE WO IVCON * * *Final Report* * * DATE OF EXAM: Apr 10 2024 8:43AM [facility] 0297 - MRI CERVICAL SPINE WO IVCON [...] and assume there are 5 lumbar-type vertebrae. Chief Revenue Officer: [facility] Transcribe Date/Time: Apr 10 2024 9:08A Dictated by : KASEY IBANEZ MD This examination was interpreted and the report reviewed and electronically signed by: KASEY IBANEZ MD on Apr 10 2024 9:19AM EST [id number] Normal [facility] MRI LUMBAR SPINE WO IVCONon 04-10-2024 MRI LUMBAR SPINE WO IVCON * * *Final Report* * * DATE OF EXAM: Apr 10 2024 8:43AM [facility] 0303 - MRI LUMBAR SPINE WO [...] and assume there are 5 lumbar-type vertebrae. Chief Revenue Officer: [facility] Transcribe Date/Time: Apr 10 2024 9:08A Dictated by : KASEY IBANEZ MD This examination was interpreted and the report reviewed and electronically signed by: KASEY IBANEZ MD on Apr 10 2024 9:19AM EST [id number] Normal [facility] No Panel Informationon 04-10 IMPRESSION: Cervical spine degenerative changes most pronounced at C4-5 and C5-6. Lumbar spine degenerative changes most pronounced at L3-4. Cervical Anatomic Variant: None. Assume 7 cervical vertebrae with counting from the craniocervical junction. Anatomic Thoracic/Lumbar Variant: None. L4-5 is considered the level of the iliac crest and assume there are 5 lumbar-type vertebrae. Chief Revenue Officer: [facility] Transcribe Date/Time: Apr 10 2024 9:08A Dictated by : KASEY IBANEZ MD This examination was interpreted and the report reviewed and electronically signed by: KASEY IBANEZ MD on Apr 10 2024 9:19AM EST DIVISION OF RADIOLOGY [facility] Radiology Study observation (narrative) [facility] CNOVon 03-13-2024 CNOV Office Visit (NEMOWS ) DENIZ KUMAR ([id number]) 1935 M Date Time Provider Department 03/13/24 [...] URINALYSIS S (more content not included)... Normal [facility] 02-25-2024 [facility] ([id number]) 1935 M Date Time Provider Department 02/25/24 [facility] During your visit today, we recorded the following information about you: Melanie Naylor LPN 02/25/2024 4:01 PM Signed Pt calls to report that insurance will not cover tolterodine 1 mg tab so he will not be taking medication. ESTELA Borrero Victor H, MD 02/26/2024 3:18 AM Signed Noted. Allergies As of Date: 02/25/2024 Noted Allergy Reaction EGYWJAY-WIN-QRZ REDUCTASE INHIBIT*08/23/2023 17 - Myalgia Comments: Weakess, [...] Encounter Status:Closed by VADIM DERAS on 02/26/24 [facility] CNOVon 02-21-2024 CNOV Office Visit (INTMWS ) ESTEFANYDENIZ CAPELLAN ([id number]) 1935 M Date Time Provider Department 02/21/24 9:20 AM VADIM DERAS INTMWS During your visit today, we recorded the following information about you: Pulse Respiration Blood pressure Weight 79/minute 16/minute 112/73 96.7 kg Height 1.829 m Sonia Fox LPN 02/21/2024 9:34 AM Signed VISUAL ACUITY: Today's exam: Vision Correction? Glasses: RIGHT EYE: 20/unable due to previous eye injury LEFT EYE: 20/30 BOTH EYES: 20/25 Vadim Deras MD 02/21/2024 11:07 AM Signed Deniz Echavarria Stacy is a 88 year old male here [...] AM Signed This note was created using virocyt. Subjective Deniz Kumar is a 88 year old male. He was doing home exercises and working out at for leg strengthening. He complained of ongoing edema, and nocturia. Oxybutynin was no longer effective. 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 Review of Systems Constitutional: Negative [...] current fa (more content not included)... Normal [facility] Basic metabolic 2000 panelon 02-14-2024 Anion gap [Moles/Vol] 8 mmol/L Normal 8-15 [facility] Comment on above: Order Comment: Speci men Type: BLOOD SPECIMENOrdering Facility: [facility] Address: [address] [place] [address] Performed By: #### 2 4321-2 ####[facility] [id number] [place] [address] [place] Calcium [Mass/Vol] 9.7 mg/dL Normal 8.5-10.2 [facility] Comment on above: Order Comment: Speci men Type: BLOOD SPECIMENOrdering Facility: [facility] Address: [address] [place] [address] Performed By: #### 2 4321-2 ####[facility] ERNCLI [id number] [place] [address] [place] Chloride [Moles/Vol] 102 mmol/L Normal 98-107 [facility] Comment on above: Order Comment: Speci men Type: BLOOD SPECIMENOrdering Facility: [facility] Address: [address] [place] [address] Performed By: #### 2 4321-2 ####[facility] [id number] [place] [address] [place] CO2 [Moles/Vol] 26 mmol/L Normal 22-30 [facility] Comment on above: Order Comment: Speci men Type: BLOOD SPECIMENOrdering Facility: [facility] Address: [address] [place] [address] Performed By: #### 2 4321-2 ####[facility] [id number] [place] [address] [place] Creatinine [Mass/Vol] 0.82 mg/dL Normal 0.73-1.22 [facility] Comment on above: Order Comment: Speci men Type: BLOOD SPECIMENOrdering Facility: [facility] Address: [address] [place] [address] Performed By: #### 2 4321-2 ####[facility] [id number] [address] OF [facility] Creatinine and Glomerular filtration rate.predicted panel (S/P/Bld) 85 mL/min/1.73m??? Normal >=60 [facility] Comment on above: Order Comment: Speci men Type: BLOOD SPECIMENOrdering Facility: [facility] Address: [address] [place] [address] Result Comment: Franny mated Glomerular Filtration Rate [...] actual GFR. Performed By: #### 2 4321-2 ####[facility] MILLWNCLIA [id number] [place] [address] [place] Glucose [Mass/Vol] 88 mg/dL Normal 74-99 [facility] Comment on above: Order Comment: Speci men Type: BLOOD SPECIMENOrdering Facility: [facility] Address: [address] [place], [place] [address] Result Comment: The [place] Diabetes Association (ADA) provides guidance for cutoff [...] Standards of Medical Care in Diabetes 2016, [place] Diabetes Association. Diabetes Care. 2016.39(Suppl 1). Performed By: #### 2 4321-2 ####[facility] ERNCLIA [id number] [place] [address] [place] Potassium [Moles/Vol] 4.2 mmol/L Normal 3.7-5.1 [facility] Comment on above: Order Comment: Speci men Type: BLOOD SPECIMENOrdering Facility: [facility] Address: [address] [place] [address] Performed By: #### 2 4321-2 ####[facility] ERNCLIA [id number] [place] [address] [place] Sodium [Moles/Vol] 136 mmol/L Normal 136-144 [facility] Comment on above: Order Comment: Speci men Type: BLOOD SPECIMENOrdering Facility: [facility] Address: [address] [place] [address] Performed By: #### 2 4321-2 ####[facility] ERNCLIA [id number] [place] [address] [place] Urea nitrogen [Mass/Vol] 18 mg/dL Normal 9-24 [facility] Comment on above: Order Comment: Speci men Type: BLOOD SPECIMENOrdering Facility: [facility] Address: [address] [place] [address] Performed By: #### 2 4321-2 ####[facility] HEYDIStaceyRIZWAN [id number] [place] [address] [place] CBC panel Auto (Bld)on 02-13 Erythrocyte distribution width (RBC) [Ratio] 13.2 % Normal 11.5-15.0 [facility] Comment on above: Order Comment: Speci men Type: BLOOD SPECIMENOrdering Facility: [facility] Address: [address] [place] [address] Performed By: #### 5 8410-2 ####[facility] ERCHRISTYA [id number] [place] [address] [place] Hematocrit (Bld) [Volume fraction] 43.5 % Normal 39.0-51.0 [facility] Comment on above: Order Comment: Speci men Type: BLOOD SPECIMENOrdering Facility: [facility] Address: [address] [place] [address] Performed By: #### 5 8410-2 ####[facility] HEYDIESCALANTERIZWAN [id number] [place] [address] [place] Hemoglobin (Bld) [Mass/Vol] 14.7 g/dL Normal 13.0-17.0 [facility] Comment on above: Order Comment: Speci men Type: BLOOD SPECIMENOrdering Facility: [facility] Address: [address] [place] [address] Performed By: #### 5 8410-2 ####[facility] HOSPITALStaceyNCLIA [id number] [place] [address] [place] MCH (RBC) [Entitic mass] 30.3 pg Normal 26.0-34.0 [facility] Comment on above: Order Comment: Speci men Type: BLOOD SPECIMENOrdering Facility: [facility] Address: [address] [place] [address] Performed By: #### 5 8410-2 ####[facility] ERNCTELLO [id number] [place] [address] [place] MCHC (RBC) [Mass/Vol] 33.8 g/dL Normal 30.5-36.0 [facility] Comment on above: Order Comment: Speci men Type: BLOOD SPECIMENOrdering Facility: [facility] Address: [address] [place] [address] Performed By: #### 5 8410-2 ####[facility] ERNCTELLO [id number] [place] [address] [place] MCV (RBC) [Entitic vol] 89.7 fL Normal 80.0-100.0 [facility] Comment on above: Order Comment: Speci men Type: BLOOD SPECIMENOrdering Facility: [facility] Address: [address] [place] [address] Performed By: #### 5 8410-2 ####[facility] ERNCLIA [id number] [place] [address] [place] Nucleated RBC (Bld) [#/Vol] 10*3/uL Normal <0.01 [facility] Comment on above: Order Comment: Speci men Type: BLOOD SPECIMENOrdering Facility: [facility] Address: [address] [place] [address] Performed By: #### 5 8410-2 ####[facility] ERNCLIA [id number] [place] [address] [place] Platelet mean volume (Bld) [Entitic vol] 11.0 fL Normal 9.0-12.7 [facility] Comment on above: Order Comment: Speci men Type: BLOOD SPECIMENOrdering Facility: [facility] Address: [address] [place] [address] Performed By: #### 5 8410-2 ####[facility] HEYDIWNCLIA [id number] [place] [address] [place] Platelets (Bld) [#/Vol] 117 10*3/uL Low 150-400 [facility] Comment on above: Order Comment: Speci men Type: BLOOD SPECIMENOrdering Facility: [facility] Address: [address] [place] [address] Result Comment: No c lot detected. Performed By: #### 5 8410-2 ####[facility] ERRIZWAN [id number] [place] [address] [place] RBC (Bld) [#/Vol] 4.85 10*6/uL Normal 4.20-6.00 [facility] Comment on above: Order Comment: Speci men Type: BLOOD SPECIMENOrdering Facility: [facility] Address: [address] [place] [address] Performed By: #### 5 8410-2 ####[facility] ERNCGLENDAA [id number] [place] [address] [place] WBC (Bld) [#/Vol] 3.74 10*3/uL Normal 3.70-11.00 [facility] Comment on above: Order Comment: Speci men Type: BLOOD SPECIMENOrdering Facility: [facility] Address: [address] [place] [address] Performed By: #### 5 8410-2 ####[facility] ERNCLIA [id number] [place] [address] [place] Allison 02-13-2024 [place] Telephone (4CQ) DENIZ KUMAR ([id number]) 1935 M Date Time Provider Department 02/13/24 VADIM DERAS 4CQ During your visit today, we recorded the following information about you: Robina Smith 02/13/2024 7:20 AM Signed Patient came in expecting labs for [facility] appointment on 02/21/24. No labs were placed. Please adivise and call patient if labs are placed. UMER Mauricio Tara, LPN 02/13/2024 1:57 PM Signed Patient called in again to see if any orders have been placed. Vadim Deras MD 02/13/2024 7:20 PM Signed Orders placed. 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] Other Visit Diagnosis:Essential hypertension [I10] Order(s):COMPLETE BLOOD COUNT [SQCBC] Order #: [id number] FUTURE BASIC METABOLIC PANEL [SQBMP] Order #: [id number] FUTURE Prescriptions as of 02/13/2024 - oxybutynin [...] Status:Closed by BRENDA LINARES on 02/13/24 Normal [facility] CNOVon 11-21-2023 CNOV Office Visit (INTMWS ) DENIZ KUMAR ([id number]) 1935 M Date Time Provider Department 5/23/24 10:00 AM VADIM DERAS INTMWS During your visit today, we recorded the following information about you: Temperature Pulse Blood pressure Weight 98.4 degrees 60/minute 149/87 100.2 kg Vadim Deras MD 11/21/2023 1:00 PM Signed This note was created using virocyt. Subjective Deniz Kumar is a 88 year [...] As of Date: 11/21/2023 Noted Allergy Reaction WTPNNIL-DEB-HMM REDUCTASE (more content not included)... Normal [facility] Comprehensive metabolic 2000 panelon 11-14-2023 Albumin [Mass/Vol] 4.0 g/dL Normal 3.9-4.9 [facility] Comment on above: Order Comment: Speci men Type: BLOOD SPECIMENOrdering Facility: [facility] Address: [address] [place] [address] Performed By: #### 2 4323-8 ####[facility] [id number] [place] [address] [place] ALP [Catalytic activity/Vol] 70 U/L Normal 38-113 [facility] Comment on above: Order Comment: Speci men Type: BLOOD SPECIMENOrdering Facility: [facility] Address: [address] [place] [address] Performed By: #### 2 4323-8 ####[facility] [id number] [place] [address] [place] ALT [Catalytic activity/Vol] 13 U/L Normal 10-54 [facility] Comment on above: Order Comment: Speci men Type: BLOOD SPECIMENOrdering Facility: [facility] Address: [address] [place] [address] Performed By: #### 2 4323-8 ####[facility] [id number] [place] [address] [place] Anion gap [Moles/Vol] 3 mmol/L Low 9-18 [facility] Comment on above: Order Comment: Speci men Type: BLOOD SPECIMENOrdering Facility: [facility] Address: [address] [place] [address] Performed By: #### 2 4323-8 ####[facility] MILLWDERIANLIA [id number] [place] [address] [place] AST [Catalytic activity/Vol] 16 U/L Normal 14-40 [facility] Comment on above: Order Comment: Speci men Type: BLOOD SPECIMENOrdering Facility: [facility] Address: [address] [place] [address] Performed By: #### 2 4323-8 ####[facility] ERDERIANLIA [id number] [place] [address] [place] Bilirubin [Mass/Vol] 0.6 mg/dL Normal 0.2-1.3 [facility] Comment on above: Order Comment: Speci men Type: BLOOD SPECIMENOrdering Facility: [facility] Address: [address] [place] [address] Performed By: #### 2 4323-8 ####[facility]ITALWDERIANLIA [id number] [place] [address] [place] Calcium [Mass/Vol] 9.5 mg/dL Normal 8.5-10.2 [facility] Comment on above: Order Comment: Speci men Type: BLOOD SPECIMENOrdering Facility: [facility] Address: [address] [place] [address] Performed By: #### 2 4323-8 ####[facility] ERNCLIA [id number] [place] [address] [place] Chloride [Moles/Vol] 106 mmol/L High 97-105 [facility] Comment on above: Order Comment: Speci men Type: BLOOD SPECIMENOrdering Facility: [facility] Address: [address] [place] [address] Performed By: #### 2 4323-8 ####[facility] [id number] [place] [address] [place] CO2 [Moles/Vol] 32 mmol/L High 22-30 [facility] Comment on above: Order Comment: Speci men Type: BLOOD SPECIMENOrdering Facility: [facility] Address: [address] [place] [address] Performed By: #### 2 4323-8 ####[facility] [id number] [place] [address] [place] Creatinine [Mass/Vol] 0.83 mg/dL Normal 0.73-1.22 [facility] Comment on above: Order Comment: Speci men Type: BLOOD SPECIMENOrdering Facility: [facility] Address: [address] [place] [address] Performed By: #### 2 4323-8 ####[facility] [id number] [address] STATES OF [facility] Creatinine and Glomerular filtration rate.predicted panel (S/P/Bld) 85 mL/min/1.73m??? Normal >=60 [facility] Comment on above: Order Comment: Speci men Type: BLOOD SPECIMENOrdering Facility: [facility] Address: [address] [place] [address] Result Comment: Franny mated Glomerular Filtration Rate [...] actual GFR. Performed By: #### 2 4323-8 ####[facility]ITALWNCLIA [id number] [place] [address] [place] Glucose [Mass/Vol] 86 mg/dL Normal 74-99 [facility] Comment on above: Order Comment: Speci men Type: BLOOD SPECIMENOrdering Facility: [facility] Address: [address] [place], [place] [address] Result Comment: The [place] Diabetes Association (ADA) provides guidance for cutoff [...] Standards of Medical Care in Diabetes 2016, [place] Diabetes Association. Diabetes Care. 2016.39(Suppl 1). Performed By: #### 2 4323-8 ####[facility] ERNCLIA [id number] [place] [address] [place] Potassium [Moles/Vol] 4.1 mmol/L Normal 3.7-5.1 [facility] Comment on above: Order Comment: Speci men Type: BLOOD SPECIMENOrdering Facility: [facility] Address: [address] [place] [address] Performed By: #### 2 4323-8 ####[facility] ERNCLIA [id number] [place] [address] [place] Protein [Mass/Vol] 6.3 g/dL Normal 6.3-8.0 [facility] Comment on above: Order Comment: Speci men Type: BLOOD SPECIMENOrdering Facility: [facility] Address: [address] [place] [address] Performed By: #### 2 4323-8 ####[facility] H[facility]ITALLI [id number] [place] [address] [place] Sodium [Moles/Vol] 141 mmol/L Normal 136-144 [facility] Comment on above: Order Comment: Speci men Type: BLOOD SPECIMENOrdering Facility: [facility] Address: [address] [place] [address] Performed By: #### 2 4323-8 ####[facility] [id number] [place] [address] [place] Urea nitrogen [Mass/Vol] 30 mg/dL High 9-24 [facility] Comment on above: Order Comment: Speci men Type: BLOOD SPECIMENOrdering Facility: [facility] Address: [address] [place] [address] Performed By: #### 2 4323-8 ####[facility] [id number] [place] [address] [place] Lipid 1996 panelon 4 Cholesterol [Mass/Vol] 169 mg/dL Normal <200 [facility] Comment on above: Order Comment: Speci men Type: BLOOD SPECIMENOrdering Facility: [facility] Address: [address] [place] [address] Result Comment: <200 mg/dL, Desirable 200-239 mg/dL, Borderline high >239 mg/dL, High Performed By: #### 2 4331-1 ####[facility] LABCLIA [id number] [facility] [id number] [address] [place] AMERICAC[facility] [id number] [place] [address] [place] Cholesterol in HDL [Mass/Vol] 50 mg/dL Normal >39 [facility] Comment on above: Order Comment: Speci men Type: BLOOD SPECIMENOrdering Facility: [facility] Address: [address] [place] [address] Result Comment: 40-5 9 mg/dL, Acceptable >59 mg/dL, High: Negative risk factor for coronary heart disease <40 mg/dL, Low: Positive risk factor for coronary heart disease Performed By: #### 2 4331-1 ####[facility] LABCLIA [id number] [address] [id number] [address] [place] Cholesterol in LDL [Mass/Vol] 95 mg/dL Normal <100 [facility] Comment on above: Order Comment: Speci men Type: BLOOD SPECIMENOrdering Facility: [facility] Address: [address] [place] [address] Result Comment: <100 mg/dL, Optimal 100-129 mg/dL, Near optimal/above optimal 130-159 mg/dL, Borderline high 160-189 mg/dL, High >189 mg/dL, Very high Secondary prevention optimal LDL Cholesterol levels are recommended to be < 70 mg/dL Performed By: #### 2 4331-1 ####[facility] LABCLIA [id number] [address] [id number] [place] [address] [place] [facility] Cholesterol in LDL/Cholesterol in HDL [Mass ratio] 1.90 {ratio} Normal <2.54 [facility] Comment on above: Order Comment: Speci men Type: BLOOD SPECIMENOrdering Facility: [facility] Address: [address] [place] [address] Result Comment: Refe rence: 1. National Cholesterol Education Program ATP III Guideline At-A-Glance Quick Desk Reference: National Heart, Lung, and Blood [place]. National Institutes of Health. 2001: NIH Publication No. 01-3305. 2. An International Atherosclerosis Society position paper: global recommendations for the management of dyslipidemia: executive summary, Atherosclerosis. 2014: 232(2):410-413. Performed By: #### 2 4331-1 ####[facility] LABCLIA [id number] [place] [id number] [facility] [id number] [place] [address] [place] Cholesterol in VLDL [Mass/Vol] 24 mg/dL Normal <30 [facility] Comment on above: Order Comment: Speci men Type: BLOOD SPECIMENOrdering Facility: [facility] Address: [address] [place] [address] Performed By: #### 2 4331-1 ####[facility] LABIA [id number] [address] [id number] [place] [address] [place] Cholesterol non HDL [Mass/Vol] 119 mg/dL Normal <130 [facility] Comment on above: Order Comment: Speci men Type: BLOOD SPECIMENOrdering Facility: [facility] Address: [address] [place] [address] Result Comment: <130 mg/dL, Optimal 130-159 mg/dL, Near optimal/above optimal 160-189 mg/dL, Borderline high 190-219 mg/dL, High >219 mg/dL, Very high Secondary prevention optimal non HDL Cholesterol levels are recommended to be <100 mg/dL Performed By: #### 2 4331-1 ####[facility] LABIA [id number] [address] [id number] [place] [address] [place] Cholesterol.total/Miracle sterol in HDL [Mass ratio] 3.38 {ratio} Normal <5.10 [facility] Comment on above: Order Comment: Speci men Type: BLOOD SPECIMENOrdering Facility: [facility] Address: [address] [place], [place] [address] Performed By: #### 2 4331-1 ####[facility] LABCLIA [id number] [address] [id number] [place] [address] [place] FASTING TIME 13 hrs Normal [facility] Comment on above: Order Comment: Speci men Type: BLOOD SPECIMENOrdering Facility: [facility] Address: [address] [place] [address] Performed By: #### 2 4331-1 ####[facility] LABCLIA [id number] [address] [id number] [place] [address] [place] Triglyceride [Mass/Vol] 119 mg/dL Normal <150 [facility] Comment on above: Order Comment: Speci men Type: BLOOD SPECIMENOrdering Facility: [facility] Address: [address] [place] [address] Result Comment: <150 mg/dL, Normal 150-199 mg/dL, Borderline high 200-499 mg/dL, High >499 mg/dL, Very high Performed By: #### 2 4331-1 ####[facility] LABCLIA [id number] [address] [id number] [address] [place] Allison 08-15-2023 CNPN Telephone (AGPOB1) DENIZ KUMAR ([id number]) 1935 Date Time Provider Department 08/15/23 BONIFACIO VALDEZ During your visit today, we recorded the following information about you: Chloe Joyner 08/15/2023 3:19 PM Signed I called [facility] back and gave her the verbal ok per Dr. Valdez to continue home PT. There was no answer. But I left the order on her secure VM. Clhoe Joyner August 15, 2023 3:19 PM Allergies [...] 06/23/2023 SAH (subarachnoid hemorrhage) (HCC) [I60.9] 07/16/2023 Encounter Status:Closed by CHLOE JOYNER on 08/15/23 [facility] CNOVon 08-06-2023 CNOV Office Visit (AGPOB1 ) DENIZ KUMAR ([id number]) 1935 M Date Time Provider Department 08/06/23 1:15 PM [facility] your visit today, we recorded [...] left ankle with routine healing, subsequent encounter [V20.970N] Order(s):XR ANKLE GENERAL 3V AP/LAT/OBL LEFT [[id number]] Order #: [id number] Prescriptions as of 08/06/2023 - atorvastatin (LIPITOR) [...] for Encounter Date Provider Department Center 08/06/2023 [id number] VALDEZ AGPOB1 AG POB Encounter Status:Closed by BONIFACIO VALDEZ on 08/06/23 [facility] CNOVon 08-02-2023 CNOV Office Visit (NEAGCL M) ESTEFANYDENIZ CAPELLAN ([id number]) 1935 M Date Time Provider Department 08/02/23 1:30 PM NICOLÁS JUNIOR NEAGCLM During your visit today, we recorded the following information about you: Pulse Respiration Blood pressure Weight 101/minute 17/minute 104/67 96.2 kg Height 1.829 m Nicolás Junior MD 08/02/2023 2:04 PM Signed NEUROSURGERY FOLLOW UP OFFICE NOTE Dr. Nicolás Junior MD, [facility] Date of visit: August Patient Name: Mr.Peter Jericho Kumar Date of : 1935 Current Age: [age] year old Sex: male MRN/E# [id number] Last Office Visit: 07/16/2023 CHIEF COMPLAINT: Patient presents with: Established Patient SUBJECTIVE: The patient presents as a follow-up with imaging (CT B) for evaluation. This is an 88-year-old male with a PMHx TIA, HTN, hypercholesterolemia, thrombocytopenia who was seen for consult at [facility] on 06/21/2023 after a fall while [...] he was a resident in rehab in [place] and hoped to be discharged to a [...] tablet da (more content not included)... Normal [facility] CT BRAIN WO IVCONon 08-02-19 CT BRAIN WO IVCON * * *Final [...] base and imaged soft tissues are unremarkable. Data Entry Clerk (topogram) images: No additional findings. IMPRESSION: No evidence of new intracranial hemorrhage. Stable CT. Chief Revenue Officer[facility] Transcribe Date/Time: Aug 02 2023 3:45P Dictated by : LINDA LOMBARDO MD This examination was interpreted and the report reviewed and electronically signed by: LINDA LOMBARDO MD on Aug 02 2023 3:50PM EST [id number] Normal [facility] Basophil percentageOrdered B y: Nishi Romero on 07-29-2023 Chloride [Moles/Vol] 106 mmol/L 98-107 [facility] Glucose [Mass/Vol] 90 mg/dL 74-106 [facility] Hemoglobin (Bld) [Mass/Vol] 15.0 g/dL 13.0-16.5 [facility] Potassium [Moles/Vol] 3.1 mmol/L 3.5-5.1 [facility] Sodium [Moles/Vol] 140 mmol/L 136-145 [facility] WBC (Bld) [#/Vol] 5.3 10*3/uL 4.4-11.0 [facility] Determination of erythrocyte mean corpuscular volume (MCV)Ordered By: Nishi Romero on 07-29-2023 MCV (RBC) [Entitic vol] 90.4 fL 80-94 [facility] Erythrocyte distribution wid th ratioOrdered By: Nishi Romero on 07-29-2023 Erythrocyte distribution width (RBC) [Ratio] 12.7 % 11.6-14.6 [facility] Erythrocyte distribution wid th standard deviationOrdered By: Nishi Romero on 07-29-2023 Erythrocyte distribution width (RBC) [Entitic vol] 42.5 fL 35.1-43.9 [facility] Hematocrit Auto (Bld) [Volum e fraction]Ordered By: Nishi Romero on 07-29-2023 Hematocrit (Bld) [Volume fraction] 46.0 % 40-54 [facility] Laboratory - Chemistry and C hemistry - challengeOrdered By: Nishi Romero on 07-29-2023 CO2 [Moles/Vol] 29.0 mmol/L 21.0-32.0 [facility] Urea nitrogen/Creatinine [Mass ratio] 29.2 mg/mg 10-20 [facility] Laboratory - Hematology and Cell countsOrdered By: Nishi Romero on 07-29-2023 MCH (RBC) [Entitic mass] 29.5 pg 27.0-32.0 [facility] MCHC (RBC) [Mass/Vol] 32.6 g/dL 32-36 [facility] Platelets (Bld) [#/Vol] 151 10*3/uL 150-450 [facility] No Panel InformationOrdered By: Nishi Romero on 07-29-2023 Estimated GFR (MDRD) Amer 85 mL/min >60 [facility] Comment on above: GFR Calc Estimated GFR (MDRD) Non-Af Amer 70 mL/min >60 [facility] Comment on above: Non- GFR Calc Platelet mean volume Tutu-Ec ker (Bld) [Entitic vol]Ordered By: Nishi Romero on 07-29-2023 Platelet mean volume (Bld) [Entitic vol] 11.3 fL 6.2-12.0 [facility] RBC Auto (Bld) [#/Vol]Ordere d By: Nishi Romero on 07-29-2023 RBC (Bld) [#/Vol] 5.09 10*6/uL 4.6-6.2 [facility] Serum or plasma calcium sharon urement (mass/volume)Ordered By: Nishi Romero on 07-29-2023 Calcium [Mass/Vol] 9.9 mg/dL 8.5-10.1 [facility] Serum or plasma creatinine m easurement (mass/volume)Ordered By: Nishi Romero on 07-29-2023 Creatinine [Mass/Vol] 1.06 mg/dL 0.70-1.30 [facility] Comment on above: The validity of the calculated GFR & GFRAA in patients over 70 years has not been determined. Clinical correlation is essential. Serum or plasma urea nitroge n measurement (mass/volume)Ordered By: Nishi Romero on 07-29-2023 Urea nitrogen [Mass/Vol] 31 mg/dL 7-18 [facility] Thin prep Papanicolaou smear with manual screeningOrdered By: Nishimichael Romero on 07-29-2023 Thin prep Papanicolaou smear with manual screening 5 5-15 [facility] Basophil percentageOrdered B y: Nishi Romero on 07-22-2023 Chloride [Moles/Vol] 102 mmol/L 98-107 [facility] Glucose [Mass/Vol] 84 mg/dL 74-106 [facility] Hemoglobin (Bld) [Mass/Vol] 15.0 g/dL 13.0-16.5 [facility] Potassium [Moles/Vol] 3.4 mmol/L 3.5-5.1 [facility] Sodium [Moles/Vol] 138 mmol/L 136-145 [facility] WBC (Bld) [#/Vol] 5.4 10*3/uL 4.4-11.0 [facility] Determination of erythrocyte mean corpuscular volume (MCV)Ordered By: Nishi Romero on 07-22-2023 MCV (RBC) [Entitic vol] 90.8 fL 80-94 [facility] Erythrocyte distribution wid th ratioOrdered By: Nishi Romero on 07-22-2023 Erythrocyte distribution width (RBC) [Ratio] 12.8 % 11.6-14.6 [facility] Erythrocyte distribution wid th standard deviationOrdered By: Nishi Romero on 07-22-2023 Erythrocyte distribution width (RBC) [Entitic vol] 42.7 fL 35.1-43.9 [facility] Hematocrit Auto (Bld) [Volum e fraction]Ordered By: Nishi Romero on 07-22-2023 Hematocrit (Bld) [Volume fraction] 45.3 % 40-54 [facility] Laboratory - Chemistry and C hemistry - challengeOrdered By: Nishi Romero on 07-22-2023 CO2 [Moles/Vol] 26.0 mmol/L 21.0-32.0 [facility] Urea nitrogen/Creatinine [Mass ratio] 33.6 mg/mg 10-20 [facility] Laboratory - Hematology and Cell countsOrdered By: Nishi Romero on 07-22-2023 MCH (RBC) [Entitic mass] 30.1 pg 27.0-32.0 [facility] MCHC (RBC) [Mass/Vol] 33.1 g/dL 32-36 [facility] Platelets (Bld) [#/Vol] 214 10*3/uL 150-450 [facility] No Panel InformationOrdered By: Nishi Romero on 07-22-2023 Estimated GFR (MDRD) Amer 84 mL/min >60 [facility] Comment on above: GFR Calc Estimated GFR (MDRD) Non-Af Amer 70 mL/min >60 [facility] Comment on above: Non- GFR Calc Platelet mean volume Tutu-Ec ker (Bld) [Entitic vol]Ordered By: Nishi Romero on 07-22-2023 Platelet mean volume (Bld) [Entitic vol] 10.5 fL 6.2-12.0 [facility] RBC Auto (Bld) [#/Vol]Ordere d By: Nsihi Romero on 07-22-2023 RBC (Bld) [#/Vol] 4.99 10*6/uL 4.6-6.2 [facility] Serum or plasma calcium sharon urement (mass/volume)Ordered By: Nishi Romero on 07-22-2023 Calcium [Mass/Vol] 10.2 mg/dL 8.5-10.1 [facility] Serum or plasma creatinine m easurement (mass/volume)Ordered By: Nishi Romero on 07-22-2023 Creatinine [Mass/Vol] 1.07 mg/dL 0.70-1.30 [facility] Comment on above: The validity of the calculated GFR & GFRAA in patients over 70 years has not been determined. Clinical correlation is essential. Serum or plasma urea nitroge n measurement (mass/volume)Ordered By: Nishimichael Romero on 07-22-2023 Urea nitrogen [Mass/Vol] 36 mg/dL 7-18 [facility] Thin prep Papanicolaou smear with manual screeningOrdered By: Nishimichael Romero on 07-22-2023 Thin prep Papanicolaou smear with manual screening 10 5-15 [facility] Basophil percentageOrdered B y: [facility] on 07-19-2023 Chloride [Moles/Vol] 104 mmol/L 98-107 [facility] Cholesterol [Mass/Vol] 183 mg/dL <200 [facility] Comment on above: <200 mg/dL Desirable 200-240 mg/dL Borderline >240 mg/dL High Risk Glucose [Mass/Vol] 112 mg/dL 74-106 [facility] Comment on above: Fasting Glucose resu lt from 100 to 125 mg/dL suggests IMPAIRED HOMEOSTASIS per A.D.A. criteria. Hemoglobin (Bld) [Mass/Vol] 15.3 g/dL 13.0-16.5 [facility] Potassium [Moles/Vol] 3.7 mmol/L 3.5-5.1 [facility] Sodium [Moles/Vol] 137 mmol/L 136-145 [facility] Triglyceride [Mass/Vol] 120 mg/dL <199 [facility] Comment on above: The drugs N-Acetylcy steine and Metamizole may falsely depress this assay.Serum Triglycerides Reference Interval Normal <150 mg/dL Borderline high 150 - 199 mg/dL High 200 - 499 mg/dL Very High > or = 500 mg/dL WBC (Bld) [#/Vol] 5.1 10*3/uL 4.4-11.0 [facility] Determination of erythrocyte mean corpuscular volume (MCV)Ordered By: [facility] on 07-19-2023 MCV (RBC) [Entitic vol] 88.5 fL 80-94 [facility] Erythrocyte distribution wid th ratioOrdered By: [facility] on 07-19-2023 Erythrocyte distribution width (RBC) [Ratio] 12.6 % 11.6-14.6 [facility] Erythrocyte distribution wid th standard deviationOrdered By: [facility] on 07-19-2023 Erythrocyte distribution width (RBC) [Entitic vol] 41.4 fL 35.1-43.9 [facility] Hematocrit Auto (Bld) [Volum e fraction]Ordered By: [facility] on 07-19-2023 Hematocrit (Bld) [Volume fraction] 44.7 % 40-54 [facility] Laboratory - Chemistry and C hemistry - challengeOrdered By: [facility] on 07-19-2023 Cholesterol in HDL (Body fld) [Mass/Vol] 49 mg/dL >40 [facility] Comment on above: The drugs N-Acetylcy steine and Metamizole may falsely depress this assay. Reference Range HDL <40 mg/dL Low HDL Cholesterol HDL >or= 60 mg/dL High HDL Cholesterol Cholesterol in LDL (Body fld) [Moles/Vol] 110 mg/dL 0-130 [facility] Cholesterol in VLDL Calc [Moles/Vol] 24 mg/dL 5-40 [facility] CO2 [Moles/Vol] 25.0 mmol/L 21.0-32.0 [facility] Cobalamin (Vitamin B12) [Mass/Vol] 1382 pg/mL 211-911 [facility] Magnesium [Mass/Vol] 2.2 mg/dL 1.6-2.6 [facility] Urea nitrogen/Creatinine [Mass ratio] 22.2 mg/mg 10-20 [facility] Laboratory - Hematology and Cell countsOrdered By: [facility] on 07-19-2023 MCH (RBC) [Entitic mass] 30.3 pg 27.0-32.0 [facility] MCHC (RBC) [Mass/Vol] 34.2 g/dL 32-36 [facility] Platelets (Bld) [#/Vol] 271 10*3/uL 150-450 [facility] No Panel InformationOrdered By: [facility] on 07-19-2023 Estimated GFR (MDRD) Amer 103 mL/min >60 [facility] Comment on above: GFR Calc Estimated GFR (MDRD) Non-Af Amer 85 mL/min >60 [facility] Comment on above: Non- GFR Calc Vitamin D 25-Hydroxy 53.8 ng/mL [facility] Comment on above: Vitamin D 25(OH) Sta tus Range Deficiency <20 ng/mL (50nmol/L) Insufficiency 20 - 30 ng/mL (50 - 75 nmol/L) Sufficiency 30 - 100 ng/mL (75 - 250 nmol/L) Toxicity >100 ng/mL (>250 nmol/L) Platelet mean volume Tutu-Ec ker (Bld) [Entitic vol]Ordered By: [facility] on 07-19-2023 Platelet mean volume (Bld) [Entitic vol] 10.2 fL 6.2-12.0 [facility] RBC Auto (Bld) [#/Vol]Ordere d By: [facility] on 07-19-2023 RBC (Bld) [#/Vol] 5.05 10*6/uL 4.6-6.2 [facility] Serum or plasma calcium sharon urement (mass/volume)Ordered By: [facility] on 07-19-2023 Calcium [Mass/Vol] 10.0 mg/dL 8.5-10.1 [facility] Serum or plasma creatinine m easurement (mass/volume)Ordered By: [facility] on 07-19-2023 Creatinine [Mass/Vol] 0.90 mg/dL 0.70-1.30 [facility] Comment on above: The validity of the calculated GFR & GFRAA in patients over 70 years has not been determined. Clinical correlation is essential. Serum or plasma thyroid stim ulating hormone (TSH) measurement (units/volume)Ordered By: [facility] on 07-19-2023 TSH Qn 1.00 uIU/mL 0.358-3.74 [facility] Serum or plasma urea nitroge n measurement (mass/volume)Ordered By: [facility] on 07-19-2023 Urea nitrogen [Mass/Vol] 20 mg/dL 7-18 [facility] Thin prep Papanicolaou smear with manual screeningOrdered By: [facility] on 07-19-2023 Thin prep Papanicolaou smear with manual screening 8 5-15 [facility] CNOVon 07-16-2023 CNOV Office Visit (NEAGCL M) DENIZ KUMAR ([id number]) 1935 M Date Time Provider Department 07/16/23 11:00 AM [facility] NEAGCLM During your visit today, we recorded the following information about you: Pulse Respiration Blood pressure Weight 83/minute 18/minute 125/85 96.2 kg Height 1.829 m Nicolás Junior MD 07/16/2023 11:16 AM Signed NEUROSURGERY FOLLOW UP OFFICE NOTE Dr. Nicolás Junior MD, [facility] Date of visit: July 16, 2023 Patient Name: Mr.Peter Jericho Kumar Date of : 1935 Current Age: [age] year old Sex: male MRN/E# [id number] Last Office Visit: Hospital follow-up CHIEF COMPLAINT: Patient presents with: Established Patient SUBJECTIVE: The patient presents as a hospital follow-up with imaging (CT B) for evaluation. This is an 88-year-old male with a PMHx TIA, HTN, hypercholesterolemia, thrombocytopenia who was seen for consult at [facility] on 06/21/2023 after a fall while [...] well. He is currently in rehab in [place] and hopes to be discharged to a [...] joint sw (more content not included)... Normal [facility] COVID-19 virus antigen assay Ordered By: Preston Camilo on 07-16-2023 SARS-CoV-2 (COVID-19) Ag IA.rapid Ql (Resp) [facility] CT BRAIN WO IVCONon 07-16-[address] BRAIN WO IVCON * * [...] base and imaged soft tissues are unremarkable. Data Entry Clerk (topogram) images: No additional findings. IMPRESSION: Interval resolution of the previously demonstrated left parafalcine and tentorial subdural hemorrhage. Chief Revenue Officer: PSCJericho Transcribe Date/Time: Jul 16 2023 2:25P Dictated by : LINDA LOMBARDO MD This examination was interpreted and the report reviewed and electronically signed by: LINDA LOMBARDO MD on Jul 16 2023 2:31PM EST [id number] Normal [facility] Absolute lymphocyte countOrd ered By: Preston Camilo on 07-15-2023 Lymphocytes Auto (Unsp spec) [#/Vol] 1.09 10*3/uL 0.83-4.51 [facility] Basophil percentageOrdered B y: Preston Camilo on 07-15-2023 Basophils/100 WBC (Bld) 0.4 % 0-1 [facility] Chloride [Moles/Vol] 106 mmol/L 98-107 [facility] Eosinophils/100 WBC (Bld) 0.7 % 0-5 [facility] Glucose [Mass/Vol] 96 mg/dL 74-106 [facility] Neutrophils (Bld) [#/Vol] 3.3 10*3/uL 2.0-7.7 [facility] Neutrophils/100 WBC (Bld) 59.8 % 47-70 [facility] Potassium [Moles/Vol] 3.6 mmol/L 3.5-5.1 [facility] Sodium [Moles/Vol] 139 mmol/L 136-145 [facility] WBC (Bld) [#/Vol] 5.5 10*3/uL 4.4-11.0 [facility] Blood erythrocytes count (nu mber/volume)Ordered By: Preston Camilo on 01-15-2024 RBC (Bld) [#/Vol] 4.83 10*6/uL 4.6-6.2 [facility] Blood hemoglobin measurement (mass/volume)Ordered By: Preston Camilo on 07-15-2023 Hemoglobin (Bld) [Mass/Vol] 14.2 g/dL 13.0-16.5 [facility] Blood lymphocytes/100 leukoc ytesOrdered By: [facility] on 07-[facility]-2023 Lymphocytes/100 WBC (Bld) 19.8 % 19-41 [facility] Blood monocytes/100 leukocyt esOrdered By: [facility] on 07-15-2023 Monocytes/100 WBC (Bld) 17.8 % 0-10 [facility] Blood platelet mean volumeOr dered By: [facility] on 07-15-2023 Platelet mean volume (Bld) [Entitic vol] 9.7 fL 6.2-12.0 [facility] Determination of erythrocyte mean corpuscular volume (MCV)Ordered By: Preston Ton on 07-15-2023 MCV (RBC) [Entitic vol] 89.6 fL 80-94 [facility] Hematocrit Auto (Bld) [Volum e fraction]Ordered By: [facility] on 07-15-2023 Hematocrit (Bld) [Volume fraction] 43.3 % 40-54 [facility] Laboratory - Chemistry and C hemistry - challengeOrdered By: [facility] 07-15-2023 CO2 [Moles/Vol] 27.0 mmol/L 21.0-32.0 [facility] Urea nitrogen/Creatinine [Mass ratio] 25.7 mg/mg 10-20 [facility] Laboratory - Hematology and Cell countsOrdered By: [facility] 07-15-2023 Erythrocyte distribution width (RBC) [Entitic vol] 40.9 fL 35.1-43.9 [facility] Erythrocyte distribution width (RBC) [Ratio] 12.3 % 11.6-14.6 [facility] Immature granulocytes/100 WBC (Bld) 1.500 % 0.0-0.9 [facility] Comment on above: IG% - Immature Granu locytes (promyelocytes, myelocytes and metamyelocytes) > 1% indicates that a LEFT SHIFT is Present. MCH (RBC) [Entitic mass] 29.4 pg 27.0-32.0 [facility] Nucleated RBC/100 WBC (Bld) [Ratio] 0 % 0-5 [facility] ([facility]BC) [Mass/Vol]Or dered By: Preston Camilo on 07-15-2023 MCHC (RBC) [Mass/Vol] 32.8 g/dL 32-36 [facility] No Panel InformationOrdered By: Preston Camilo on 07-15-2023 Estimated Creatinine Clearance Calc 76.85 ml/min [facility] Estimated GFR (MDRD) Amer 115 mL/min >60 [facility] Comment on above: GFR Calc Estimated GFR (MDRD) Non-Af Amer 95 mL/min >60 [facility] Comment on above: Non- GFR Calc Platelets bldOrdered By: Preston Camilo on 07-15-2023 Platelets (Bld) [#/Vol] 263 10*3/uL 150-450 [facility] Serum or plasma calcium sharon urement (mass/volume)Ordered By: Preston Camilo on 07-15-2023 Calcium [Mass/Vol] 9.2 mg/dL 8.5-10.1 [facility] Serum or plasma creatinine m easurement (mass/volume)Ordered By: Preston Camilo on 07-15-2023 Creatinine [Mass/Vol] 0.82 mg/dL 0.70-1.30 [facility] Comment on above: The validity of the calculated GFR & GFRAA in patients over 70 years has not been determined. Clinical correlation is essential. Serum or plasma urea nitroge n measurement (mass/volume)Ordered By: Preston Camilo on 07-15-2023 Urea nitrogen [Mass/Vol] 21 mg/dL 7-18 [facility] Thin prep Papanicolaou smear with manual screeningOrdered By: Preston Camilo on 07-15-2023 Thin prep Papanicolaou smear with manual screening 6 - [facility] CNPNon 07-12-2023 CNPN Telephone (AGPOB1) DENIZ KUMAR ([id number]) 1935 M Date Time Provider Department 07/12/23 BONIFACIO VALDEZ AGPOB1 During your visit today, [...] spoke with Joyce at [facility] [phone] and informed her of what the doctor said. She understood. Bessie Duran July 12, 2023 4:12 PM Allergies As of Date: 07/12/2023 Noted Allergy Reaction CLEARASIL MAXIMUM STRENGTH 09/16/2018 7 - Swelling Date Reviewed: 07/09/2023 Reviewed by: Bonifacio Valdez MD - Fully Assessed Reason for Visit: Patient Question [6307] Prescriptions as of 07/12/2023 - acetaminophen (TYLENOL) [...] Encounter Status:Closed by BESSIE DURAN on 07/12/23 [facility] CNOVon 07-09-2023 CNOV Office Visit (AGPOB1 ) DENIZ KUMAR ([id number]) 1935 M Date Time Provider Department 07/09/23 2:00 PM BONIFACIO VALDEZ AGPOB1 During your visit [...] office. Questions answered. Referring Provider: LYNDA HOLMAN [[id number]] Allergies As of Date: 07/09/2023 Noted Allergy Reaction CLEARASIL MAXIMUM STRENGTH 09/16/2018 7 - Swelling Date Reviewed: 07/09/2023 Reviewed by: Bonifacio Valdez MD - Fully Assessed Reason for Visit: Follow Up [171] Primary Visit Diagnosis:Closed bimalleolar fracture of left ankle with routine healing, subsequent encounter [S82.840S] Order(s):XR ANKLE GENERAL 3V AP/LAT/OBL LEFT [[id number]] Order #: [id number] Prescriptions as of 07/09/2023 - acetaminophen (TYLENOL) [...] for Encounter Date Provider Department Center 07/09/2023 [id number] VALDEZ AGPOB1 AG POB Encounter Status:Closed by BONIFACIO VALDEZ on 07/09/23 Normal [facility] Basophil percentageOrdered B y: Preston Camilo on 07-04-2023 Cholesterol [Mass/Vol] 158 mg/dL <200 [facility] Comment on above: <200 mg/dL Desirable 200-240 mg/dL Borderline >240 mg/dL High Risk Triglyceride [Mass/Vol] 77 mg/dL <199 [facility] Comment on above: The drugs N-Acetylcy steine and Metamizole may falsely depress this assay.Serum Triglycerides Reference Interval Normal <150 mg/dL Borderline high 150 - 199 mg/dL High 200 - 499 mg/dL Very High > or = 500 mg/dL Allison 07-04-2023 CNPN Telephone (NEAGCLM) DENIZ KUMAR ([id number]) 1935 M Date Time Provider Department 07/04/23 [facility] During your visit today, we recorded the following information about you: Gustavo Reyes 07/04/2023 8:35 AM Signed I returned patients facility from [place] [phone] confirming day time and location of upcoming [...] Encounter Status:Closed by GUSTAVO REYES on 07/04/23 [facility] Serum or plasma cholesterol in HDL measurement (mass/volume)Ordered By: Preston Camilo on 07-04-2023 Cholesterol in HDL [Mass/Vol] 49 mg/dL >40 [facility] Comment on above: The drugs N-Acetylcy steine and Metamizole may falsely depress this assay. Reference Range HDL <40 mg/dL Low HDL Cholesterol HDL >or= 60 mg/dL High HDL Cholesterol Serum or plasma cholesterol in VLDL measurement (mass/volume)Ordered By: Preston Camilo on 07-04-2023 Cholesterol in VLDL [Mass/Vol] 15 mg/dL 5-40 [facility] Serum or plasma low density lipoprotein (LDL) cholesterol measurement (mass/volume)Ordered By: Preston Camilo on 07-04-2023 Cholesterol in LDL [Mass/Vol] 94 mg/dL 0-130 [facility] Basophil percentageOrdered B y: Preston Camilo on 07-03-2023 Basophil percentage 0-5 SEEN /hpf 0-5 [facility] Bilirubin Test strip Ql (U)O rdered By: Preston Camilo on 07-03-2023 Bilirubin Ql (U) Negative Negative [facility] CNPNon 07-03-2023 CNPN Telephone (AGPOB1) DENIZ KUMAR ([id number]) 1935 M Date Time Provider Department 07/03/23 [...] which facility was the patient [facility] at: [facility] Emergency Room Was an appointment scheduled (Y/N): N Person calling if other than patient: [facility] Return call to if other than patient: Best contact number: Thank you, Pat Zuñiga July 03, 2023 9:58 AM Allergies As of Date: 07/03/2023 Noted Allergy Reaction CLEARASIL MAXIMUM STRENGTH 09/16/2018 7 - Swelling Date Reviewed: 06/25/2023 Reviewed by: Molly Marie RN - Fully Assessed Prescriptions as of [...] Status:Closed by CHLOE JOYNER on 07/04/23 Normal [facility] Culture, urineOrdered By: Lloyd Camilo on 07-03-2023 Bacteria identified Cx Nom (U) Culture exhibits no growth. [facility] Ketones Test strip Ql (U)Ord ered By: Presotn Camilo on 07-03-2023 Ketones Ql (U) 15 mg/dl Negative [facility] Mucus LM Ql (Urine sed)Order ed By: Preston Camilo on 07-03-2023 Mucus Ql (Urine sed) 1+ /hpf [facility] Nitrite Test strip Ql (U)Ord ered By: Preston Camilo on 07-03-2023 Nitrite Ql (U) Negative Negative [facility] Protein Test strip Ql (U)Ord ered By: Preston Camilo on 07-03-2023 Protein Ql (U) 100 mg/dl Negative [facility] Squamous epithelial cells de tection in urine sediment by light microscopyOrdered By: Preston Camilo on 07-03-2023 Epithelial cells.squamous LM Ql (Urine sed) 0-5 SEEN /hpf 0-5 [facility] Urine blood detectionOrdered By: Preston Camilo on 07-03-2023 RBC Ql (U) 25 /ul Negative [facility] RBC Ql (U) 0-5 SEEN /hpf 0-5 [facility] Urine clarityOrdered By: Preston Camilo on 07-03-2023 Clarity (U) Clear Clear [facility] Urine color determinationOrd ered By: Preston Camilo on 07-03-2023 Color (U) Yellow Yellow [facility] Urine glucose detectionOrder ed By: Preston Camilo on 07-03-2023 Glucose Ql (U) Normal mg/dl Normal [facility] Urine leukocyte esterase det ection by dipstickOrdered By: Preston Camilo on 07-03-2023 Leukocyte esterase Test strip Ql (U) 25 /ul Negative [facility] Urine pHOrdered By: Preston Camilo on 07-03-2023 pH (U) 6.0 [pH] 5.0 - 8.0 [facility] Urine sediment bacteria coun t by microscopy (number/high power field)Ordered By: Preston Camilo on 07-03-2023 Bacteria LM.HPF (Urine sed) [#/Area] 1 /[HPF] None Seen [facility] Urine specific gravity measu rementOrdered By: Preston Camilo on 07-03-2023 Specific gravity (U) [Rel density] 1.020 1.002-1.030 [facility] Urobilinogen Auto test strip Ql (U)Ordered By: Preston Camilo on 07-03-2023 Urobilinogen Ql (U) 1 mg/dl Normal [facility] CNDSon 06-27-2023 CN HNO ID: [id number] Author: Bonifacio William PA-C Service: General Surgery Author Type: Physician Mold Closer Type: Discharge Summary Filed: 06/27/2023 2:55 PM Note Text: Attestation signed by Kade Garrett MD at 06/27/2023 5:00 PM The [facility], acting on behalf of the attending physician, has completed the [id number] portion of the patient discharge encounter. SIGNATURE: Kade Garrett MD PATIENT NAME: Deniz Kumar DATE: June 27, 2023 TIME: 5:00 PM Pager: [phone] DISCHARGE SUMMARY PATIENT NAME: Deniz Kumar Code [...] Patient was evaluated in the ED at [facility] on 06/21/2023 as a trauma transfer from [...] therapy, and they recommended placement at a nursing home facility. He would be deemed medically stable [...] No pending results Discharge Disposition Discharge Disposition: Intermediate Facility - Less than 30 Days Activity [...] a d (more content not included)... Normal [facility] THERAPY NTon 06-27-2023 THERAPY NT HNO ID: [id number] Author: Kade Valera PT Service: Physical Therapy Author Type: Physical Therapist Type: Therapy (PT/OT/Speech/Resp) Filed: 06/27/2023 1:06 PM Note Text: Physical Therapy Treatment SERVICE DATE: 06/27/2023 SERVICE TIME: 1113 to 1137 ROOM: [place] [address] Recommended Discharge Disposition: Subacute/SNF Recommended Discharge Disposition Comments: Patient would benefit from nursing home facility to enhance mobility while maintaining nonweightbearing [...] support, may require occasional minimal assistance -HLM: 5: Standing (1 or more minutes) Learning/Educational Needs: Discharge Plan, Disease Process [place] Scale: 8 - Purposeful, Appropriate Response (06/26/23 1603) Goals for Plan of Care: Patient/Caregiver Goals: [...] Diagnosis: Reduced mobility-other Interventions Provided: Therapeutic Exercise (00952), Therapeutic Activity (48696), Gait Training (86255) Therapeutic Exercise (57796) Treatment Minutes: 12 $ Therapeutic Exercise (05824) Billed Units: 1 unit Open chain strength exercises to bilateral LEs at available joints. Patient denies p (more content not included)... Normal [facility] Basic metabolic 2000 panelon 06-26-2023 Anion gap [Moles/Vol] 8 mmol/L Low 9-18 [facility] Comment on above: Order Comment: Speci men Type: BLOOD SPECIMENOrdering Facility: [facility] Address: [address] [place] [address] Performed By: #### 2 4321-2 ####[facility] LABORATORYCLIA [id number] [place] [address] [place] Calcium [Mass/Vol] 9.2 mg/dL Normal 8.5-10.2 [facility] Comment on above: Order Comment: Speci men Type: BLOOD SPECIMENOrdering Facility: [facility] Address: [address] [place] [address] Performed By: #### 2 4321-2 ####[facility] LABORATORYCLIA [id number] [place] [address] [place] Chloride [Moles/Vol] 107 mmol/L High 97-105 [facility] Comment on above: Order Comment: Speci men Type: BLOOD SPECIMENOrdering Facility: [facility] Address: [address] [place] [address] Performed By: #### 2 4321-2 ####[facility] LABORATORYCLIA [id number] [address] OF [facility] CO2 [Moles/Vol] 25 mmol/L Normal 22-30 [facility] Comment on above: Order Comment: Speci men Type: BLOOD SPECIMENOrdering Facility: [facility] Address: [address] [place] [address] Performed By: #### 2 4321-2 ####[facility] CENTERCLIA [id number] [address] Creatinine [Mass/Vol] 0.98 mg/dL Normal 0.73-1.22 [facility] Comment on above: Order Comment: Speci men Type: BLOOD SPECIMENOrdering Facility: [facility] Address: [address] [place] [address] Performed By: #### 2 4321-2 ####[facility] LABORATORYCLIA [id number] [address] Creatinine and Glomerular filtration rate.predicted panel (S/P/Bld) 75 mL/min/1.73m??? Normal >=60 [facility] Comment on above: Order Comment: Speci men Type: BLOOD SPECIMENOrdering Facility: [facility] Address: [address] [place] [address] Result Comment: Franny mated Glomerular Filtration Rate [...] actual GFR. Performed By: #### 2 4321-2 ####[facility] LABORATORYCLIA [id number] [place] [address] [place] Glucose [Mass/Vol] 86 mg/dL Normal 74-99 [facility] Comment on above: Order Comment: Manuel meme Type: BLOOD SPECIMENOrdering Facility: [facility] Address: [address] [place] [address] Result Comment: The [place] Diabetes Association (ADA) provides guidance for cutoff [...] Standards of Medical Care in Diabetes 2016, [place] [employer] Association. Diabetes Care. 2016.39(Suppl 1). Performed By: #### 2 4321-2 ####[facility] LABORATORYCLIA [id number] [place] [address] [place] Potassium [Moles/Vol] 3.9 mmol/L Normal 3.7-5.1 [facility] Comment on above: Order Comment: Manuel meme Type: BLOOD SPECIMENOrdering Facility: [facility] Address: [address] [place] [address] Performed By: #### 2 4321-2 ####[facility] LABORATORYCLIA [id number] [place] [address] [place] Sodium [Moles/Vol] 140 mmol/L Normal 136-144 [facility] Comment on above: Order Comment: Manuel meme Type: BLOOD SPECIMENOrdering Facility: [facility] Address: [address] [place] [address] Performed By: #### 2 4321-2 ####[facility] LABORATORYCLIA [id number] [place] [address] [place] Urea nitrogen [Mass/Vol] 28 mg/dL High 9-24 [facility] Comment on above: Order Comment: Mynori meme Type: BLOOD SPECIMENOrdering Facility: [facility] Address: [address] [place] [address] Performed By: #### 2 4321-2 ####[facility] LABORATORYCLIA [id number] [address] CBC panel Auto (Bld)on 06-26 Erythrocyte distribution width (RBC) [Ratio] 12.8 % Normal 11.5-15.0 [facility] Comment on above: Order Comment: Speci men Type: BLOOD SPECIMENOrdering Facility: [facility] Address: [address] [place] [address] Performed By: #### 5 8410-2 ####[facility] LABORATORYCLIA [id number] [address] Hematocrit (Bld) [Volume fraction] 39.3 % Normal 39.0-51.0 [facility] Comment on above: Order Comment: Speci men Type: BLOOD SPECIMENOrdering Facility: [facility] Address: [address] [place] [address] Performed By: #### 5 8410-2 ####[facility] LABORATORYCLIA [id number] [address] OF [place] Hemoglobin (Bld) [Mass/Vol] 13.4 g/dL Normal 13.0-17.0 [facility] Comment on above: Order Comment: Speci men Type: BLOOD SPECIMENOrdering Facility: [facility] Address: [address] [place] [address] Performed By: #### 5 8410-2 ####[facility] LABORATORYCLIA [id number] [address] [facility] MCH (RBC) [Entitic mass] 30.9 pg Normal 26.0-34.0 [facility] Comment on above: Order Comment: Speci men Type: BLOOD SPECIMENOrdering Facility: [facility] Address: [address] [place] [address] Performed By: #### 5 8410-2 ####[facility] LABORATORYCLIA [id number] [address] [place] MCHC (RBC) [Mass/Vol] 34.1 g/dL Normal 30.5-36.0 [facility] Comment on above: Order Comment: Speci men Type: BLOOD SPECIMENOrdering Facility: [facility] Address: [address] [place] [address] Performed By: #### 5 8410-2 ####[facility] LABORATORYCLIA [id number] [address] MCV (RBC) [Entitic vol] 90.8 fL Normal 80.0-100.0 [facility] Comment on above: Order Comment: Speci men Type: BLOOD SPECIMENOrdering Facility: [facility] Address: [address] [place] [address] Performed By: #### 5 8410-2 ####[facility] LABORATORYCLIA [id number] [address] Nucleated RBC (Bld) [#/Vol] 10*3/uL Normal <0.01 [facility] Comment on above: Order Comment: Speci men Type: BLOOD SPECIMENOrdering Facility: [facility] Address: [address] [place] [address] Performed By: #### 5 8410-2 ####[facility] [facility]ATORYCLIA [id number] [address] Platelet mean volume (Bld) [Entitic vol] 11.3 fL Normal 9.0-12.7 [facility] Comment on above: Order Comment: Speci men Type: BLOOD SPECIMENOrdering Facility: [facility] Address: [address] [place] [address] Performed By: #### 5 8410-2 ####[facility] LABORATORYCLIA [id number] [address] Platelets (Bld) [#/Vol] 108 10*3/uL Low 150-400 [facility] Comment on above: Order Comment: Speci men Type: BLOOD SPECIMENOrdering Facility: [facility] Address: [address] [place] [address] Result Comment: No c lot detected. Performed By: #### 5 8410-2 ####[facility] LABORATORYCLIA [id number] [place] [address] [facility] RBC (Bld) [#/Vol] 4.33 10*6/uL Normal 4.20-6.00 [facility] Comment on above: Order Comment: Speci men Type: BLOOD SPECIMENOrdering Facility: [facility] Address: [address] [place] [address] Performed By: #### 5 8410-2 ####[facility] LABORATORYCLIA [id number] [place] [id number] [facility] WBC (Bld) [#/Vol] 4.95 10*3/uL Normal 3.70-11.00 [facility] Comment on above: Order Comment: Speci men Type: BLOOD SPECIMENOrdering Facility: [facility] Address: [address] [place] [address] Performed By: #### 5 8410-2 ####[facility] CENTERCLIA [id number] [place] [id number] [facility] NURSING PROGon 06-26-2023 NURSING PROG HNO ID: [id number] Author: Makayla Riggins RN Service: ? Author Type: Registered Nurse Type: Nursing Progress Note Filed: 06/26/2023 5:10 PM Note Text: Nursing Progress Note Patient Name: Deniz Kumar Patient Location: [place] [address] [address]473 -02 Surgery paged regarding patients blood pressure of 161/103 at 11:42 and 155/100 at 15:17. OR nurse notified to pass to team. No new orders at this time. This note was completed by: Makayla Riggins Normal [facility] THERAPY NTon 06-26-2023 THERAPY NT HNO ID: [id number] Author: Marlen Unger, OTR/L Service: Occupational Therapy Author Type: Occupational Therapist Type: Therapy (PT/OT/Speech/Resp) Filed: 06/26/2023 4:41 PM Note Text: Occupational Therapy Treatment SERVICE DATE: 06/26/2023 SERVICE TIME: 1603 to 1627 ROOM: [id number] Recommended Discharge Disposition: Subacute/SNF Recommended Discharge Disposition [...] to re (more content not included)... Normal [facility] THERAPY NT HNO ID: [id number] Author: Jon Araujo PT Service: Physical Therapy Author Type: Physical Therapist Type: Therapy (PT/OT/Speech/Resp) Filed: 06/26/2023 3:13 PM Note Text: Physical Therapy Treatment SERVICE DATE: 06/26/2023 SERVICE TIME: 1442 to 1506 ROOM: [place] [address] Recommended Discharge Disposition: Subacute/SNF Recommended Discharge Disposition Comments: Patient would benefit from nursing home facility to enhance mobility while maintaining nonweightbearing [...] falls/injury and would benefit from discharge to nursing home facility once medically stable prior to return [...] Sit wi (more content not included)... Normal [facility] 25(OH)D3 SerPl-ncon 2022 25-hydroxyvitamin D3 [Mass/Vol] 37.0 ng/mL Normal >=30.0 [facility] Comment on above: Order Comment: Speci men Type: BLOOD SPECIMENOrdering Facility: [facility] Address: [address] [place] [address] Result Comment: Clas sification of 25 [place] Vitamin D status: Deficiency: <= 20.0 ng/ml. Insufficiency: 21.0-29.0 ng/ml. Sufficiency: >= 30.0 ng/ml. Performed By: #### 1 989-3 ####[facility] LABORATORYCLIA [id number] [place] [address] [place] Basic metabolic 2000 panelon 06-25-2023 Anion gap [Moles/Vol] 9 mmol/L Normal 9-18 [facility] Comment on above: Order Comment: Speci men Type: BLOOD SPECIMENOrdering Facility: [facility] Address: [address] [place] [address] Performed By: #### 2 4321-2 ####[facility] LABORATORYCLIA [id number] [place] [address] [place] Calcium [Mass/Vol] 9.2 mg/dL Normal 8.5-10.2 [facility] Comment on above: Order Comment: Speci men Type: BLOOD SPECIMENOrdering Facility: [facility] Address: [address] [place] [address] Performed By: #### 2 4321-2 ####[facility] LABORATORYCLIA [id number] [place] [address] [place] Chloride [Moles/Vol] 106 mmol/L High 97-105 [facility] Comment on above: Order Comment: Speci men Type: BLOOD SPECIMENOrdering Facility: [facility] Address: [address] [place] [address] Performed By: #### 2 4321-2 ####[facility] LABORATORYCLIA [id number] [place] [address] [place] CO2 [Moles/Vol] 26 mmol/L Normal 22-30 [facility] Comment on above: Order Comment: Speci men Type: BLOOD SPECIMENOrdering Facility: [facility] Address: [address] [place] [address] Performed By: #### 2 4321-2 ####[facility]ATORYCLIA [id number] [place] [address] [place] Creatinine [Mass/Vol] 0.95 mg/dL Normal 0.73-1.22 [facility] Comment on above: Order Comment: Speci men Type: BLOOD SPECIMENOrdering Facility: [facility] Address: [address] [place] [address] Performed By: #### 2 4321-2 ####[facility]ATORYCLIA [id number] [place] [address] [place] Creatinine and Glomerular filtration rate.predicted panel (S/P/Bld) 77 mL/min/1.73m??? Normal >=60 [facility] Comment on above: Order Comment: Manuel valentine Type: BLOOD SPECIMENOrdering Facility: [facility] Address: [address] [place] [address] Result Comment: Franny mated Glomerular Filtration Rate [...] actual GFR. Performed By: #### 2 4321-2 ####[facility] CENTERCLIA [id number] [place] [address] [place] Glucose [Mass/Vol] 84 mg/dL Normal 74-99 [facility] Comment on above: Order Comment: Manuel valentine Type: BLOOD SPECIMENOrdering Facility: [facility] Address: [address] [place] [address] Result Comment: The [place] Diabetes Association (ADA) provides guidance for cutoff [...] Standards of Medical Care in Diabetes 2016, [place] Diabetes Association. Diabetes Care. 2016.39(Suppl 1). Performed By: #### 2 4321-2 ####[facility]ORATORYCLIA [id number] [place] [address] [place] Potassium [Moles/Vol] 3.6 mmol/L Low 3.7-5.1 [facility] Comment on above: Order Comment: Manuel valentine Type: BLOOD SPECIMENOrdering Facility: [facility] Address: [address] [place] [address] Performed By: #### 2 4321-2 ####[facility]ORATORYCLIA [id number] [address] Sodium [Moles/Vol] 141 mmol/L Normal 136-144 [facility] Comment on above: Order Comment: Speci men Type: BLOOD SPECIMENOrdering Facility: [facility] Address: [address] [place] [address] Performed By: #### 2 4321-2 ####[facility]ORATORYCLIA [id number] [address] [place] Urea nitrogen [Mass/Vol] 30 mg/dL High 9-24 [facility] Comment on above: Order Comment: Speci men Type: BLOOD SPECIMENOrdering Facility: [facility] Address: [address] [place] [address] Performed By: #### 2 4321-2 ####[facility]ORATORYCLIA [id number] [address] CBC panel Auto (Bld)on 06-25 Erythrocyte distribution width (RBC) [Ratio] 12.8 % Normal 11.5-15.0 [facility] Comment on above: Order Comment: Speci men Type: BLOOD SPECIMENOrdering Facility: [facility] Address: [address] [place] [address] Performed By: #### 5 8410-2 ####[facility]ORATORYCLIA [id number] [address] [place] Hematocrit (Bld) [Volume fraction] 43.2 % Normal 39.0-51.0 [facility] Comment on above: Order Comment: Speci men Type: BLOOD SPECIMENOrdering Facility: [facility] Address: [address] [place] [address] Performed By: #### 5 8410-2 ####[facility]ORATORYCLIA [id number] [address] Hemoglobin (Bld) [Mass/Vol] 14.5 g/dL Normal 13.0-17.0 [facility] Comment on above: Order Comment: Speci men Type: BLOOD SPECIMENOrdering Facility: [facility] Address: [address] [place] [address] Performed By: #### 5 8410-2 ####[facility]ORATORYCLIA [id number] [address] MCH (RBC) [Entitic mass] 30.5 pg Normal 26.0-34.0 [facility] Comment on above: Order Comment: Speci men Type: BLOOD SPECIMENOrdering Facility: [facility] Address: [address] [place] [address] Performed By: #### 5 8410-2 ####[facility]ORATORYCLIA [id number] [address] MCHC (RBC) [Mass/Vol] 33.6 g/dL Normal 30.5-36.0 [facility] Comment on above: Order Comment: Speci men Type: BLOOD SPECIMENOrdering Facility: [facility] Address: [address] [place] [address] Performed By: #### 5 8410-2 ####[facility]ORATORYCLIA [id number] [address] MCV (RBC) [Entitic vol] 90.8 fL Normal 80.0-100.0 [facility] Comment on above: Order Comment: Speci men Type: BLOOD SPECIMENOrdering Facility: [facility] Address: [address] [place] [address] Performed By: #### 5 8410-2 ####[facility]ORATORYCLIA [id number] [address] Nucleated RBC (Bld) [#/Vol] 10*3/uL Normal <0.01 [facility] Comment on above: Order Comment: Speci men Type: BLOOD SPECIMENOrdering Facility: [facility] Address: [address] [place] [address] Performed By: #### 5 8410-2 ####[facility]ATORYCLIA [id number] [address] [place] Platelet mean volume (Bld) [Entitic vol] 11.4 fL Normal 9.0-12.7 [facility] Comment on above: Order Comment: Speci men Type: BLOOD SPECIMENOrdering Facility: [facility] Address: [address] [place] [address] Performed By: #### 5 8410-2 ####[facility]ATORYCLIA [id number] [place] [address] [place] Platelets (Bld) [#/Vol] 109 10*3/uL Low 150-400 [facility] Comment on above: Order Comment: Speci men Type: BLOOD SPECIMENOrdering Facility: [facility] Address: [address] [place] [address] Result Comment: No c lot detected. Performed By: #### 5 8410-2 ####[facility]ATORYCLIA [id number] [address] [place] RBC (Bld) [#/Vol] 4.76 10*6/uL Normal 4.20-6.00 [facility] Comment on above: Order Comment: Speci men Type: BLOOD SPECIMENOrdering Facility: [facility] Address: [address] [place] [address] Performed By: #### 5 8410-2 ####[facility]ATORYCLIA [id number] [address] [place] WBC (Bld) [#/Vol] 6.73 10*3/uL Normal 3.70-11.00 [facility] Comment on above: Order Comment: Speci men Type: BLOOD SPECIMENOrdering Facility: [facility] Address: [address] [place] [address] Performed By: #### 5 8410-2 ####[facility]ATORYCLIA [id number] [address] [place] Basic metabolic 2000 panelon 06-24-2023 Anion gap [Moles/Vol] 8 mmol/L Low 9-18 [facility] Comment on above: Order Comment: Speci men Type: BLOOD SPECIMENOrdering Facility: [facility] Address: [address] [place] [address] Performed By: #### 2 4321-2 ####[facility]ATORYCLIA [id number] [place] [address] [place] Calcium [Mass/Vol] 9.0 mg/dL Normal 8.5-10.2 [facility] Comment on above: Order Comment: Speci men Type: BLOOD SPECIMENOrdering Facility: [facility] Address: [address] [place] [address] Performed By: #### 2 4321-2 ####[facility]ATORYCLIA [id number] [place] [address] [place] Chloride [Moles/Vol] 105 mmol/L Normal 97-105 [facility] Comment on above: Order Comment: Speci men Type: BLOOD SPECIMENOrdering Facility: [facility] Address: [address] [place] [address] Performed By: #### 2 4321-2 ####[facility]ATORYCLIA [id number] [address] [place] CO2 [Moles/Vol] 27 mmol/L Normal 22-30 [facility] Comment on above: Order Comment: Speci men Type: BLOOD SPECIMENOrdering Facility: [facility] Address: [address] [place] [address] Performed By: #### 2 4321-2 ####[facility]ATORYCLIA [id number] [place] [address] [place] Creatinine [Mass/Vol] 0.91 mg/dL Normal 0.73-1.22 [facility] Comment on above: Order Comment: Speci men Type: BLOOD SPECIMENOrdering Facility: [facility] Address: [address] [place] [address] Performed By: #### 2 4321-2 ####[facility]ATORYCLIA [id number] [address] [place] Creatinine and Glomerular filtration rate.predicted panel (S/P/Bld) 82 mL/min/1.73m??? Normal >=60 [facility] Comment on above: Order Comment: Manuel valentine Type: BLOOD SPECIMENOrdering Facility: [facility] Address: [place] [address] Result Comment: Franny mated Glomerular Filtration Rate [...] actual GFR. Performed By: #### 2 4321-2 ####[facility]ORATORYCLIA [id number] [place] [address] [place] Glucose [Mass/Vol] 111 mg/dL High 74-99 [facility] Comment on above: Order Comment: Manuel valentine Type: BLOOD SPECIMENOrdering Facility: [facility] Address: [place] [place] [address] Result Comment: The [place] Diabetes Association (ADA) provides guidance for cutoff [...] Standards of Medical Care in Diabetes 2016, [place] Diabetes Association. Diabetes Care. 2016.39(Suppl 1). Performed By: #### 2 4321-2 ####[facility]ORATORYCLIA [id number] [place] [address] [place] Potassium [Moles/Vol] 3.8 mmol/L Normal 3.7-5.1 [facility] Comment on above: Order Comment: Manuel valentine Type: BLOOD SPECIMENOrdering Facility: [facility] Address: [address] [place] [address] Performed By: #### 2 4321-2 ####[facility]ORATORYCLIA [id number] [place] [id number] [place] [facility] Sodium [Moles/Vol] 140 mmol/L Normal 136-144 [facility] Comment on above: Order Comment: Speci men Type: BLOOD SPECIMENOrdering Facility: [facility] Address: [address] [place] [address] Performed By: #### 2 4321-2 ####[facility]ORATORYCLIA [id number] [address] [facility] Urea nitrogen [Mass/Vol] 33 mg/dL High 9-24 [facility] Comment on above: Order Comment: Speci men Type: BLOOD SPECIMENOrdering Facility: [facility] Address: [address] [place] [address] Performed By: #### 2 4321-2 ####[facility]ORATORYCLIA [id number] [address] CBC panel Auto (Bld)on 06-24 Erythrocyte distribution width (RBC) [Ratio] 13.0 % Normal 11.5-15.0 [facility] Comment on above: Order Comment: Speci men Type: BLOOD SPECIMENOrdering Facility: [facility] Address: [address] [place] [address] Performed By: #### 5 8410-2 ####[facility]ORATORYCLIA [id number] [address] [place] Hematocrit (Bld) [Volume fraction] 41.5 % Normal 39.0-51.0 [facility] Comment on above: Order Comment: Speci men Type: BLOOD SPECIMENOrdering Facility: [facility] Address: [address] [place] [address] Performed By: #### 5 8410-2 ####[facility]ATORYCLIA [id number] [address] Hemoglobin (Bld) [Mass/Vol] 14.0 g/dL Normal 13.0-17.0 [facility] Comment on above: Order Comment: Speci men Type: BLOOD SPECIMENOrdering Facility: [facility] Address: [address] [place] [address] Performed By: #### 5 8410-2 ####[facility]ORATORYCLIA [id number] [address] MCH (RBC) [Entitic mass] 30.8 pg Normal 26.0-34.0 [facility] Comment on above: Order Comment: Speci men Type: BLOOD SPECIMENOrdering Facility: [facility] Address: [address] [place] [address] Performed By: #### 5 8410-2 ####[facility]ORATORYCLIA [id number] [address] MCHC (RBC) [Mass/Vol] 33.7 g/dL Normal 30.5-36.0 [facility] Comment on above: Order Comment: Speci men Type: BLOOD SPECIMENOrdering Facility: [facility] Address: [address] [place] [address] Performed By: #### 5 8410-2 ####[facility]ORATORYCLIA [id number] [address] MCV (RBC) [Entitic vol] 91.2 fL Normal 80.0-100.0 [facility] Comment on above: Order Comment: Speci men Type: BLOOD SPECIMENOrdering Facility: [facility] Address: [address] [place] [address] Performed By: #### 5 8410-2 ####[facility]ATORYCLIA [id number] [address] Nucleated RBC (Bld) [#/Vol] 10*3/uL Normal <0.01 [facility] Comment on above: Order Comment: Speci men Type: BLOOD SPECIMENOrdering Facility: [facility] Address: [address] [place] [address] Performed By: #### 5 8410-2 ####[facility]ATORYCLIA [id number] [address] Platelet mean volume (Bld) [Entitic vol] 11.0 fL Normal 9.0-12.7 [facility] Comment on above: Order Comment: Speci men Type: BLOOD SPECIMENOrdering Facility: [facility] Address: [address] [place] [address] Performed By: #### 5 8410-2 ####[facility]ORATORYCLIA [id number] [address] [place] Platelets (Bld) [#/Vol] 96 10*3/uL Low 150-400 [facility] Comment on above: Order Comment: Speci men Type: BLOOD SPECIMENOrdering Facility: [facility] Address: [address] [place] [address] Result Comment: No c lot detected. Performed By: #### 5 8410-2 ####[facility]ORATORYCLIA [id number] [address] STATES OF [facility] RBC (Bld) [#/Vol] 4.55 10*6/uL Normal 4.20-6.00 [facility] Comment on above: Order Comment: Speci men Type: BLOOD SPECIMENOrdering Facility: [facility] Address: [address] [place] [address] Performed By: #### 5 8410-2 ####[facility]ORATORYCLIA [id number] [address] WBC (Bld) [#/Vol] 8.35 10*3/uL Normal 3.70-11.00 [facility] Comment on above: Order Comment: Speci men Type: BLOOD SPECIMENOrdering Facility: [facility] Address: [address] [place] [address] Performed By: #### 5 8410-2 ####[facility]ORATORYCLIA [id number] [address] CONSULT PROGon 06-24-2023 CONSULT PROG HNO ID: [id number] Author: Marily Burciaga APRN.WHARF TENDER HELPER Service: Neurosurgery Author Type: Nurse Practitioner Type: [...] Air IANDO: Date 06/23/23 07 - 06/24/23 0606/24/23 07 - 06/25/23 0659 Shift [id number] 0306-3039 [phone] 24 Hour Total 0646-0995 4263-0693 0136-2603 24 Hour Total INTAKE IV 700 100 [...] making for today's visit. SIGNATURE: Marily Burciaga APRN.WHARF TENDER HELPER PATIENT NAME: Deniz Kumar DATE: June 24, 2023 TIME: 9:28 AM Pager: [phone] Normal [facility] THERAPY NTon 06-24-2023 THERAPY NT HNO ID: [id number] Author: Ludivina Barcenas PT Service: Physical Therapy Author Type: Physical Therapist Type: Therapy (PT/OT/Speech/Resp) Filed: 06/24/2023 1:50 PM Note Text: Physical Therapy Evaluation SERVICE DATE: 06/24/2023 SERVICE TIME: 1200 to 1245 ROOM: [place] [address] Recommended Discharge Disposition: Subacute/SNF Recommended Discharge Disposition Comments: Patient would benefit from nursing home facility to enhance mobility while maintaining nonweightbearing [...] all of his ADLs by himself. Recommend nursing home to promote independence with functional mobility while [...] mobility-other In (more content not included)... Normal [facility] THERAPY NT HNO ID: [id number] Author: Michelle El, OTR/L Service: Occupational Therapy Author Type: Occupational Therapist Type: Therapy (PT/OT/Speech/Resp) Filed: 06/24/2023 11:20 AM Note Text: Occupational Therapy Evaluation SERVICE DATE: 06/24/2023 SERVICE TIME: 904 to 932 ROOM: [place] [address] Recommended Discharge Disposition: Subacute/SNF Recommended Discharge Disposition [...] Hobbies/Leisure Acti (more content not included)... Normal [facility] ALLIED HEALTHon 06-23-2023 ALLIED HEALTH HNO ID: [id number] Author: Robina Lord RT(R) Service: ? Author [...] RT Geetha(R) June 23, 2023 1:53 PM [facility] ANES POSTPROC EVALon 023 ANES POSTPROC EVAL HNO ID: [id number] Author: Renaldo Mccurdy MD Service: Anesthesiology Author Type: Anesthesiologist Type: Anesthesia Postprocedure Evaluation Filed: 06/23/2023 11:12 AM Note Text: POST ANESTHESIA EVALUATION NOTE : 1935 Procedure Summary Date: 06/23/23 Room / Location: [place] OR 08 / [place] Anesthesia Start: 757 Anesthesia Stop: 914 [...] June 23, 2023 TIME: 11:12 AM CSN: [id number] Normal [facility] ANES PRE-OPon 06-23-2023 ANES PRE-OP HNO ID: [id number] Author: Renaldo Mccurdy MD Service: Anesthesiology Author Type: Anesthesiologist Type: Anesthesia Preprocedure Evaluation Filed: 06/23/2023 7:55 AM Note Text: ANESTHESIOLOGY DAY OF SURGERY NOTE : 1935 Procedure Information Date/Time: 06/23/23 0800 Procedures: OPEN REDUCTION DISTAL FIBULAR FX. W/ INTERNAL FIXATION WHEN PERFORMED (Left: Ankle) ORIF SYNDESMOSIS LOWER EXTREMITY (Left: Ankle) [place] Surgeons: Bonifacio Valdez MD Estimated body [...] and consent discussed: yes. Patient / Responsible Libertarian agrees to proceed: yes Patient / Surrogate [...] June 23, 2023 TIME: 7:10 AM CSN: [id number] [facility] BRIEF OP NOTon 06-23-2023 BRIEF OP NOT HNO ID: [id number] Author: Uche Vasquez MD Service: Orthopaedic Surgery Author Type: Resident Type: Brief Op Note Filed: 06/23/2023 9:17 AM Note Text: BRIEF OPERATIVE / PROCEDURE NOTE LOG ID: [id number] SURGERY/PROCEDURE DATE: 06/23/2023 INCISION/PROCEDURE START TIME: 8:22 AM INCISION CLOSE/PROCEDURE END TIME: 9:08 AM SURGEON(S)/PROCEDURALIS T(S) AND PIPE INSULATOR(S): Surgeon(s) and Role: * Bonifacio Valdez MD [...] - PGY 3 9:16 AM 06/23/2023 Pager #[phone] [facility] Basic metabolic 2000 panelon 06-23-2023 Anion gap [Moles/Vol] 8 mmol/L Low 9-18 [facility] Comment on above: Order Comment: Speci men Type: BLOOD SPECIMENOrdering Facility: [facility] Address: [address] [place] [address] Performed By: #### 2 4321-2 ####[facility]ATORYCLIA [id number] [address] [place] Calcium [Mass/Vol] 8.9 mg/dL Normal 8.5-10.2 [facility] Comment on above: Order Comment: Speci men Type: BLOOD SPECIMENOrdering Facility: [facility] Address: [address] [place] [address] Performed By: #### 2 4321-2 ####[facility]ORATORYCLIA [id number] [address] [place] Chloride [Moles/Vol] 108 mmol/L High 97-105 [facility] Comment on above: Order Comment: Speci men Type: BLOOD SPECIMENOrdering Facility: [facility] Address: [address] [place] [address] Performed By: #### 2 4321-2 ####[facility]ORATORYCLIA [id number] [address] STATES OF [facility] CO2 [Moles/Vol] 25 mmol/L Normal 22-30 [facility] Comment on above: Order Comment: Speci men Type: BLOOD SPECIMENOrdering Facility: [facility] SYSTEM Address: [address] [place] [address] Performed By: #### 2 4321-2 ####[facility] LABORATORYCLIA [id number] [address] [place] Creatinine [Mass/Vol] 0.89 mg/dL Normal 0.73-1.22 [facility] Comment on above: Order Comment: Speci men Type: BLOOD SPECIMENOrdering Facility: [facility] Address: [address] [place] [address] Performed By: #### 2 4321-2 ####[facility] LABORATORYCLIA [id number] [address] Creatinine and Glomerular filtration rate.predicted panel (S/P/Bld) 83 mL/min/1.73m??? Normal >=60 [facility] Comment on above: Order Comment: Speci men Type: BLOOD SPECIMENOrdering Facility: [facility] Address: [address] [place] [address] Result Comment: Franny mated Glomerular Filtration Rate [...] actual GFR. Performed By: #### 2 4321-2 ####[facility] LABORATORYCLIA [id number] [place] [address] [place] Glucose [Mass/Vol] 99 mg/dL Normal 74-99 [facility] Comment on above: Order Comment: Manuel valentine Type: BLOOD SPECIMENOrdering Facility: [facility] Address: [address] [place] [address] Result Comment: The [place] Diabetes Association (ADA) provides guidance for cutoff [...] Standards of Medical Care in Diabetes 2016, [place] [employer]. Diabetes Care. 2016.39(Suppl 1). Performed By: #### 2 4321-2 ####[facility] LABORATORYCLIA [id number] [place] [address] [place] Potassium [Moles/Vol] 3.9 mmol/L Normal 3.7-5.1 [facility] Comment on above: Order Comment: Manuel meme Type: BLOOD SPECIMENOrdering Facility: [facility] Address: [address] [place] [address] Performed By: #### 2 4321-2 ####[facility] LABORATORYCLIA [id number] [address] Sodium [Moles/Vol] 141 mmol/L Normal 136-144 [facility] Comment on above: Order Comment: Speci men Type: BLOOD SPECIMENOrdering Facility: [facility] Address: [address] [place] [address] Performed By: #### 2 4321-2 ####[facility] LABORATORYCLIA [id number] [address] [place] Urea nitrogen [Mass/Vol] 37 mg/dL High - [facility] Comment on above: Order Comment: Speci men Type: BLOOD SPECIMENOrdering Facility: [facility] Address: [address] [place] [address] Performed By: #### 2 4321-2 ####[facility] LABORATORYCLIA [id number] [address] [place] CBC panel Auto (Bld)on 06-23 Erythrocyte distribution width (RBC) [Ratio] 13.0 % Normal 11.5-15.0 [facility] Comment on above: Order Comment: Speci men Type: BLOOD SPECIMENOrdering Facility: [facility] Address: [address] [place] [address] Performed By: #### 5 8410-2 ####[facility] LABORATORYCLIA [id number] [address] [place] Hematocrit (Bld) [Volume fraction] 40.3 % Normal 39.0-51.0 [facility] Comment on above: Order Comment: Speci men Type: BLOOD SPECIMENOrdering Facility: [facility] Address: [address] [place] [address] Performed By: #### 5 8410-2 ####[facility] LABORATORYCLIA [id number] [address] [place] Hemoglobin (Bld) [Mass/Vol] 13.7 g/dL Normal 13.0-17.0 [facility] Comment on above: Order Comment: Speci men Type: BLOOD SPECIMENOrdering Facility: [facility] Address: [address] [place] [address] Performed By: #### 5 8410-2 ####[facility] LABORATORYCLIA [id number] [address] MCH (RBC) [Entitic mass] 31.3 pg Normal 26.0-34.0 [facility] Comment on above: Order Comment: Speci men Type: BLOOD SPECIMENOrdering Facility: [facility] Address: [address] [place] [address] Performed By: #### 5 8410-2 ####[facility] LABORATORYCLIA [id number] [address] OF [facility] MCHC (RBC) [Mass/Vol] 34.0 g/dL Normal 30.5-36.0 [facility] Comment on above: Order Comment: Speci men Type: BLOOD SPECIMENOrdering Facility: [facility] Address: [address] [place] [address] Performed By: #### 5 8410-2 ####[facility] LABORATORYCLIA [id number] [address] MCV (RBC) [Entitic vol] 92.0 fL Normal 80.0-100.0 [facility] Comment on above: Order Comment: Speci men Type: BLOOD SPECIMENOrdering Facility: [facility] Address: [address] [place] [address] Performed By: #### 5 8410-2 ####[facility] LABORATORYCLIA [id number] [address] Nucleated RBC (Bld) [#/Vol] 10*3/uL Normal <0.01 [facility] Comment on above: Order Comment: Speci men Type: BLOOD SPECIMENOrdering Facility: [facility] Address: [address] [place] [address] Performed By: #### 5 8410-2 ####[facility] LABORATORYCLIA [id number] [address] [place] Platelet mean volume (Bld) [Entitic vol] 11.0 fL Normal 9.0-12.7 [facility] Comment on above: Order Comment: Speci men Type: BLOOD SPECIMENOrdering Facility: [facility] Address: [address] [place] [address] Performed By: #### 5 8410-2 ####[facility] LABORATORYCLIA [id number] [address] Platelets (Bld) [#/Vol] 99 10*3/uL Low 150-400 [facility] Comment on above: Order Comment: Speci men Type: BLOOD SPECIMENOrdering Facility: [facility] Address: [address] [place] [address] Result Comment: No c lot detected. Performed By: #### 5 8410-2 ####[facility] LABORATORYCLIA [id number] [address] STATES OF [facility] RBC (Bld) [#/Vol] 4.38 10*6/uL Normal 4.20-6.00 [facility] Comment on above: Order Comment: Speci men Type: BLOOD SPECIMENOrdering Facility: [facility] Address: [address] [place] [address] Performed By: #### 5 8410-2 ####[facility] LABORATORYCLIA [id number] [address] WBC (Bld) [#/Vol] 7.13 10*3/uL Normal 3.70-11.00 [facility] Comment on above: Order Comment: Speci men Type: BLOOD SPECIMENOrdering Facility: [facility] Address: [address] [place] [address] Performed By: #### 5 8410-2 ####[facility] LABORATORYCLIA [id number] [address] CONSULT PROGon 06-23-2023 CONSULT PROG HNO ID: [id number] Author: Lynda Holman PA-C Service: Neurosurgery Author Type: Physician Mold Closer Type: Consult Progress Note Filed: 06/23/2023 12:04 [...] Speech: appropriate Motor: DEY RUE: 5/5 LUE: 5/5 RLE: 5/5 LLE: antigravity, deferred testing due to ankle [...] SCDs Medication and Non-Pharmacologic VTE Prophylaxis/Anticoagula nts 06/21/231929 vte pharmacologic prophylaxis contraindicated (fl,oh) 06/21/231929 pneumatic compression stockings (fl,oh) 06/21/231929 activity - mobilize patient (fl,oh) Parts of this note may have been copied from one of my previous notes and remain pertinent. The documentation has been reviewed and edited as necessary to support the clinical decision making for today's visit. SIGNATURE: Lynda Holman PA-C PATIENT NAME: Deniz Kumar DATE: June 23, 2023 TIME: 6:20 AM Pager: [phone] Normal [facility] CT BRAIN WO IVCONon 06-23-20 CT BRAIN WO IVCON * * *Final Report* * * DATE OF EXAM: Jun 23 2023 1:56PM [facility] 0504 - CT BRAIN WO IVCON / [...] recon COMPARISON: CT brain performed 06/22/2023. RESULT: Data Entry Clerk (topogram) images: Noncontributory. Post-operative change: None. Acute [...] products as above. No new acute findings. Chief Revenue Officer: [employer] Transcribe Date/Time: Jun 23 2023 2:30P Dictated by : BRITTANY KING MD This examination was interpreted and the report reviewed and electronically signed by: BRITTANY KING MD on Jun 23 2023 2:35PM EST [id number] Normal [facility] OPERATIVE NOon 06-23-2023 OPERATIVE NO HNO ID: [id number] Author: Bonifacio Valdez MD Service: Orthopaedic Surgery Author Type: Physician Type: Operative Report Filed: 06/23/2023 9:17 AM Note Text: ORTHO OPERATIVE REPORT LOG ID: [id number] Surgery/Procedure Date: 06/23/2023 Incision/Procedure Start Time: 8:22 AM Incision Close/Procedure End Time: 9:08 AM Surgeon(s)/Proceduralis t(s) and Mold Closer(s): Surgeon(s) and Role: * Bonifacio Valdez MD [...] performed the procedure with assistance. SIGNATURE: Bonifacio Valedz MD PATIENT NAME: Deniz Kumar DATE: June 23, 2023 TIME: 9:15 AM PAGER/CONTACT #: Normal [facility] XR ANKLE 2V AP/LAT LTon 12-2 XR ANKLE 2V AP/LAT LT * * *Final Report* * * DATE OF EXAM: Jun 23 2023 9:02AM [facility] 5575 - XR ANKLE 2V AP/LAT LT [...] Correlate with operative report and postoperative radiographs. Chief Revenue Officer: [facility] Transcribe Date/Time: Jun 24 2023 2:25P Dictated by : CLINTON PAULSON MD This examination was interpreted and the report reviewed and electronically signed by: CLINTON PAULSON MD on Jun 24 2023 2:33PM EST [id number] [facility] XR ANKLE 3V AP/LAT/OBL LTon 06-23-2023 XR [...] maintained. External splint. IMPRESSION: ORIF fibular fracture Chief Revenue Officer: [facility] Transcribe Date/Time: Jun 24 2023 9:32A Dictated by : SUNDEEP WHITAKER MD This examination was interpreted and the report reviewed and electronically signed by: SUNDEEP WHITAKER MD on Jun 24 2023 9:33AM EST [id number] [facility] ALLIED HEALTHon 06-22-2023 ALLIED HEALTH HNO ID: [id number] Author: Tyrone Guzman RT(R) Service: Radiology Author [...] Davin(R) June 22, 2023 5:05 AM Normal [facility] Basic metabolic 2000 panelon 06-22-2023 Anion gap [Moles/Vol] 9 mmol/L Normal 9-18 [facility] Comment on above: Order Comment: Speci men Type: BLOOD SPECIMENOrdering Facility: [facility] Address: [address] [place] [address] Performed By: #### 2 432-2, , 2776-07 ####[facility] LABORATORYCLIA [id number] [place] [address] [place] Calcium [Mass/Vol] 8.6 mg/dL Normal 8.5-10.2 [facility] Comment on above: Order Comment: Speci men Type: BLOOD SPECIMENOrdering Facility: [facility] Address: [address] [place] [address] Performed By: #### 2 432-2, , 2776-07 ####[facility] LABORATORYCLIA [id number] [place] [address] [place] Chloride [Moles/Vol] 106 mmol/L High 97-105 [facility] Comment on above: Order Comment: Speci men Type: BLOOD SPECIMENOrdering Facility: [facility] Address: [address] [place] [address] Performed By: #### 2 4321-2, , 2776-07 ####[facility] LABORATORYCLIA [id number] [place] [address] [place] CO2 [Moles/Vol] 25 mmol/L Normal 22-30 [facility] Comment on above: Order Comment: Specomer valentine Type: BLOOD SPECIMENOrdering Facility: [facility] Address: [address] [place] [address] Performed By: #### 2 4321-2, , 2776-07 ####[facility] LABORATORYCLIA [id number] [place] [id number] [place] Creatinine [Mass/Vol] 0.84 mg/dL Normal 0.73-1.22 [facility] Comment on above: Order Comment: Manuel valentine Type: BLOOD SPECIMENOrdering Facility: [facility] Address: [address] [place] [address] Performed By: #### 2 4321-2, , 2776-07 ####[facility] LABORATORYIA [id number] [address] Creatinine and Glomerular filtration rate.predicted panel (S/P/Bld) 84 mL/min/1.73m??? Normal >=60 [facility] Comment on above: Order Comment: Manuel valentine Type: BLOOD SPECIMENOrdering Facility: [facility] Address: [address] [place] [address] Result Comment: Franny mated Glomerular Filtration Rate [...] Performed By: #### 2 4321-2, , 2776-07 ####[facility] LABORATORYCLIA [id number] [address] [place] Glucose [Mass/Vol] 121 mg/dL High 74-99 [facility] Comment on above: Order Comment: Manuel valentine Type: BLOOD SPECIMENOrdering Facility: [facility] Address: [address] [place] [address] Result Comment: The [place] Diabetes Association (ADA) provides guidance for cutoff [...] Standards of Medical Care in Diabetes 2016, [place] Diabetes Association. Diabetes Care. 2016.39(Suppl 1). Performed By: #### 2 4321-2, , 2776-07 ####[facility] LABORATORYCLIA [id number] [place] [address] [place] Potassium [Moles/Vol] 3.8 mmol/L Normal 3.7-5.1 [facility] Comment on above: Order Comment: Speci men Type: BLOOD SPECIMENOrdering Facility: [facility] Address: [address] [place] [address] Performed By: #### 2 432-2, , 2776-07 ####[facility] LABORATORYCLIA [id number] [place] [address] [place] Sodium [Moles/Vol] 140 mmol/L Normal 136-144 [facility] Comment on above: Order Comment: Speci men Type: BLOOD SPECIMENOrdering Facility: [facility] Address: [address] [place] [address] Performed By: #### 2 432-2, , 2776-07 ####[facility] LABORATORYCLIA [id number] [place] [address] [place] Urea nitrogen [Mass/Vol] 35 mg/dL High 9-24 [facility] Comment on above: Order Comment: Speci men Type: BLOOD SPECIMENOrdering Facility: [facility] Address: [address] [place] [address] Performed By: #### 2 4322, 08242-7, 2777-1 ####[facility] LABORATORYCLIA [id number] [address] CBC panel Auto (Bld)on 06-22 Erythrocyte distribution width (RBC) [Ratio] 13.0 % Normal 11.5-15.0 [facility] Comment on above: Order Comment: Speci men Type: BLOOD SPECIMENOrdering Facility: [facility] Address: [address] [place] [address] Performed By: #### 5 8410-2 ####[facility] LABORATORYCLIA [id number] [address] Hematocrit (Bld) [Volume fraction] 38.2 % Low 39.0-51.0 [facility] Comment on above: Order Comment: Speci men Type: BLOOD SPECIMENOrdering Facility: [facility] Address: [address] [place] [address] Performed By: #### 5 8410-2 ####[facility] LABORATORYCLIA [id number] [address] Hemoglobin (Bld) [Mass/Vol] 13.1 g/dL Normal 13.0-17.0 [facility] Comment on above: Order Comment: Speci men Type: BLOOD SPECIMENOrdering Facility: [facility] Address: [address] [place] [address] Performed By: #### 5 8410-2 ####[facility] LABORATORYCLIA [id number] [address] [facility] MCH (RBC) [Entitic mass] 30.8 pg Normal 26.0-34.0 [facility] Comment on above: Order Comment: Speci men Type: BLOOD SPECIMENOrdering Facility: [facility] Address: [address] [place] [address] Performed By: #### 5 8410-2 ####[facility] LABORATORYCLIA [id number] [address] MCHC (RBC) [Mass/Vol] 34.3 g/dL Normal 30.5-36.0 [facility] Comment on above: Order Comment: Speci men Type: BLOOD SPECIMENOrdering Facility: [facility] Address: [address] [place] [address] Performed By: #### 5 8410-2 ####[facility] LABORATORYCLIA [id number] [address] [place] MCV (RBC) [Entitic vol] 89.7 fL Normal 80.0-100.0 [facility] Comment on above: Order Comment: Speci men Type: BLOOD SPECIMENOrdering Facility: [facility] Address: [address] [place] [address] Performed By: #### 5 8410-2 ####[facility] LABORATORYCLIA [id number] [address] [place] Nucleated RBC (Bld) [#/Vol] 10*3/uL Normal <0.01 [facility] Comment on above: Order Comment: Speci men Type: BLOOD SPECIMENOrdering Facility: [facility] Address: [address] [place] [address] Performed By: #### 5 8410-2 ####[facility] LABORATORYCLIA [id number] [address] [place] Platelet mean volume (Bld) [Entitic vol] 10.9 fL Normal 9.0-12.7 [facility] Comment on above: Order Comment: Speci men Type: BLOOD SPECIMENOrdering Facility: [facility] Address: [address] [place] [address] Performed By: #### 5 8410-2 ####[facility] LABORATORYCLIA [id number] [address] [place] Platelets (Bld) [#/Vol] 106 10*3/uL Low 150-400 [facility] Comment on above: Order Comment: Speci men Type: BLOOD SPECIMENOrdering Facility: [facility] Address: [address] [place] [address] Result Comment: No c lot detected. Performed By: #### 5 8410-2 ####[facility] LABORATORYCLIA [id number] [place] [address] [place] RBC (Bld) [#/Vol] 4.26 10*6/uL Normal 4.20-6.00 [facility] Comment on above: Order Comment: Speci men Type: BLOOD SPECIMENOrdering Facility: [facility] Address: [address] [place] [address] Performed By: #### 5 8410-2 ####[facility] LABORATORYCLIA [id number] [place] [id number] [facility] WBC (Bld) [#/Vol] 6.20 10*3/uL Normal 3.70-11.00 [facility] Comment on above: Order Comment: Speci men Type: BLOOD SPECIMENOrdering Facility: [facility] Address: [address] [place] [address] Performed By: #### 5 8410-2 ####[facility] LABORATORYCLIA [id number] [place] [id number] [facility] CONSULTon 06-22-2023 CONSULT HNO ID: [id number] Author: Bonifacio Valdez MD Service: Orthopaedic Surgery [...] ANION 9 (more content not included)... Normal [facility] CONSULT PROGon 06-22-2023 CONSULT PROG HNO ID: [id number] Author: Nolvia oPole DO Service: General Surgery Author Type: Resident [...] (97.5 ?F), Max:36.9 ?C (98.4 ?F) Date 06/21/23699 - 06/22/2359 06/22/23699 - 06/23/23 0659 Shift [id number] 9625-9434 8429-3146 24 Hour Total 7070-6808 2021-5341 3343-7911 24 Hour Total INTAKE IV 749 749 [...] 6.20 3. (more content not included)... Normal [facility] CONSULT PROG HNO ID: [id number] Author: Syeda Blandon APRN.WHARF TENDER HELPER Service: Neurosurgery Author Type: Nurse Practitioner Type: [...] Therapy: Nasal Cannula IANDO: Date 06/21/23699 - 06/22/2359 06/22/23 07 - 06/23/23 0659 Shift [phone] 9704-0039 1051-4307 24 Hour Total 3664-3185 0914-4941 3807-4827 24 Hour Total INTAKE IV 749 749 [...] June 22, 2023 TIME: 7:15 AM Pager: [phone] Normal [facility] CT BRAIN WO IVCONon 06-22-20 CT BRAIN WO IVCON * * *Final Report* * * DATE OF EXAM: Jun 22 2023 5:17AM [facility] 0504 - CT BRAIN WO IVCON / [...] Iterative recon COMPARISON: CT head 06/21/2023. RESULT: Data Entry Clerk (topogram) images: No additional findings. Post-operative change: [...] acute subdural hemorrhage. No new intracranial hemorrhage. Chief Revenue Officer: [employer] Transcribe Date/Time: Jun 22 2023 5:19A Dictated by : RA BLACKMAN MD This examination was interpreted and the report reviewed and electronically signed by: RA BLACKMAN MD on Jun 22 2023 5:25AM EST [id number] Normal [facility] Calcium.ionized [Moles/Vol]o n 06-22-2023 Calcium.ionized (BldV) [Mass/Vol] 1.12 mmol/L Normal 1.08-1.30 [facility] Comment on above: Order Comment: Speci men Type: BLOOD SPECIMENOrdering Facility: [facility] Address: [address] [place] [address] Performed By: #### 1 995-0 ####[facility] LABORATORYCLIA [id number] [address] OF [facility] Calcium.ionized adjusted to pH 7.4 (Bld) [Moles/Vol] 1.15 mmol/L Normal 1.08-1.30 [facility] Comment on above: Order Comment: Mynori meme Type: BLOOD SPECIMENOrdering Facility: [facility] Address: [address] [place] [address] Performed By: #### 1 995-0 ####[facility] LABORATORYCLIA [id number] [place] [id number] [place] Magnesium [facility]-ncon 06-22 Magnesium [Mass/Vol] 1.8 mg/dL Normal 1.7-2.3 [facility] Comment on above: Order Comment: Manuel valentine Type: BLOOD SPECIMENOrdering Facility: [facility] Address: [address] [place] [address] Performed By: #### 2 4321-2, 41885-2, 2777-1 ####[facility] LABORATORYCLIA [id number] [place] [address] [place] NURSING PROGon 06-22-2023 NURSING PROG HNO ID: [id number] Author: Sada Rubio RN Service: Nursing Author Type: Registered Nurse Type: Nursing Progress Note Filed: 06/22/2023 11:31 AM Note Text: Transfer Note: PATIENT NAME: Deniz Kumar Patient Location: [place] [address] [address] Room: [place] [address] Called transfer report to LEATHA Galvan on [address]. Will transport patient shortly Normal [facility] Phosphate SerPl-mCncon 06-22 Phosphate [Mass/Vol] 3.2 mg/dL Normal 2.7-4.8 [facility] Comment on above: Order Comment: Manuel valentine Type: BLOOD SPECIMENOrdering Facility: [facility] Address: [address] [place] [address] Performed By: #### 2 4321-2, 90001-5, 2777-1 ####[facility] LABORATORYCLIA [id number] [address] STATES OF [facility] XR ANKLE SPECIFY 1V LTon XR ANKLE [...] tibiofibular syndesmotic instability with applied ankle stress Chief Revenue Officer: KATIA Transcribe Date/Time: Jun 22 2023 4:02P Dictated by : SINAN MATTHEW MD This examination was interpreted and the report reviewed and electronically signed by: SINAN MATTHEW MD on Jun 22 2023 4:08PM EST [id number] Normal [facility] ALLIED HEALTHon 06-21-2023 ALLIED HEALTH HNO ID: [id number] Author: Lise Steiner RT(R) Service: ? Author [...] DATA: Inpatient: see LDA documentation SIGNED BY: Lise Steiner RT(R) June 21, 2023 8:15 PM Normal [facility] Absolute lymphocyte countOrd ered By: Gordon Hill on 06-21-2023 Lymphocytes Auto (Unsp spec) [#/Vol] 0.71 10*3/uL 0.83-4.51 [facility] Basophil percentageOrdered B y: Gordon Hill on 06-21-2023 Basophils/100 WBC (Bld) 0.2 % 0-1 [facility] Bilirubin [Mass/Vol] 0.90 mg/dL 0.20-1.00 [facility] Comment on above: For patients on eltr ombopag therapy, use of [employer] TBIL is not recommended. Chloride [Moles/Vol] 111 mmol/L 98-107 [facility] Eosinophils/100 WBC (Bld) 0.6 % 0-5 [facility] Glucose [Mass/Vol] 115 mg/dL 74-106 [facility] Comment on above: Fasting Glucose resu lt from 100 to 125 mg/dL suggests IMPAIRED HOMEOSTASIS per A.D.A. criteria. Neutrophils (Bld) [#/Vol] 3.5 10*3/uL 2.0-7.7 [facility] Neutrophils/100 WBC (Bld) 70.2 % 47-70 [facility] Potassium [Moles/Vol] 3.5 mmol/L 3.5-5.1 [facility] Protein [Mass/Vol] 6.1 g/dL 6.4-8.2 [facility] Sodium [Moles/Vol] 142 mmol/L 136-145 [facility] WBC (Bld) [#/Vol] 5.0 10*3/uL 4.4-11.0 [facility] Blood erythrocytes count (nu mber/volume)Ordered By: Gordon Hill on 06-21-2023 RBC (Bld) [#/Vol] 4.99 10*6/uL 4.6-6.2 [facility] Blood hemoglobin measurement (mass/volume)Ordered By: Gordon Hill on 06-21-2023 Hemoglobin (Bld) [Mass/Vol] 15.0 g/dL 13.0-16.5 [facility] Blood lymphocytes/100 leukoc ytesOrdered By: Gordon Hill on 06-21-2023 Lymphocytes/100 WBC (Bld) 14.2 % 19-41 [facility] Blood monocytes/100 leukocyt esOrdered By: Gordon Hill on 06-21-2023 Monocytes/100 WBC (Bld) 14.2 % 0-10 [facility] Blood platelet mean volumeOr dered By: Gordon Hill on 06-21-2023 Platelet mean volume (Bld) [Entitic vol] 11.0 fL 6.2-12.0 [facility] CBC panel Auto (Bld)on 06-21 Erythrocyte distribution width (RBC) [Ratio] 12.7 % Normal 11.5-15.0 [facility] Comment on above: Order Comment: Speci men Type: BLOOD SPECIMENOrdering Facility: [facility] Address: [address] [place] [address] Performed By: #### 5 8410-2 ####[facility] LABORATORYCLIA [id number] [address] STATES OF [facility] Hematocrit (Bld) [Volume fraction] 45.3 % Normal 39.0-51.0 [facility] Comment on above: Order Comment: Mynori men Type: BLOOD SPECIMENOrdering Facility: [facility] Address: [address] [place] [address] Performed By: #### 5 8410-2 ####[facility] LABORATORYCLIA [id number] [address] [place] Hemoglobin (Bld) [Mass/Vol] 15.5 g/dL Normal 13.0-17.0 [facility] Comment on above: Order Comment: Speci men Type: BLOOD SPECIMENOrdering Facility: [facility] Address: [address] [place] [address] Performed By: #### 5 8410-2 ####[facility] LABORATORYCLIA [id number] [place] [address] [place] MCH (RBC) [Entitic mass] 31.0 pg Normal 26.0-34.0 [facility] Comment on above: Order Comment: Speci men Type: BLOOD SPECIMENOrdering Facility: [facility] Address: [address] [place] [address] Performed By: #### 5 8410-2 ####[facility] LABORATORYCLIA [id number] [address] [place] MCHC (RBC) [Mass/Vol] 34.2 g/dL Normal 30.5-36.0 [facility] Comment on above: Order Comment: Speci men Type: BLOOD SPECIMENOrdering Facility: [facility] Address: [address] [place] [address] Performed By: #### 5 8410-2 ####[facility] LABORATORYCLIA [id number] [address] [place] MCV (RBC) [Entitic vol] 90.6 fL Normal 80.0-100.0 [facility] Comment on above: Order Comment: Speci men Type: BLOOD SPECIMENOrdering Facility: [facility] Address: [address] [place] [address] Performed By: #### 5 8410-2 ####[facility] LABORATORYCLIA [id number] [address] STATES OF [facility] Nucleated RBC (Bld) [#/Vol] 10*3/uL Normal <0.01 [facility] Comment on above: Order Comment: Speci men Type: BLOOD SPECIMENOrdering Facility: [facility] Address: [address] [place] [address] Performed By: #### 5 8410-2 ####[facility] LABORATORYCLIA [id number] [address] [place] Platelet mean volume (Bld) [Entitic vol] 10.9 fL Normal 9.0-12.7 [facility] Comment on above: Order Comment: Speci men Type: BLOOD SPECIMENOrdering Facility: [facility] Address: [address] [place] [address] Performed By: #### 5 8410-2 ####[facility] LABORATORYCLIA [id number] [address] [place] Platelets (Bld) [#/Vol] 118 10*3/uL Low 150-400 [facility] Comment on above: Order Comment: Speci men Type: BLOOD SPECIMENOrdering Facility: [facility] Address: [address] [place] [address] Result Comment: No c lot detected. Performed By: #### 5 8410-2 ####[facility] LABORATORYCLIA [id number] [place] [address] [place] RBC (Bld) [#/Vol] 5.00 10*6/uL Normal 4.20-6.00 [facility] Comment on above: Order Comment: Speci men Type: BLOOD SPECIMENOrdering Facility: [facility] Address: [address] [place] [address] Performed By: #### 5 8410-2 ####[facility] LABORATORYCLIA [id number] [address] OF [facility] WBC (Bld) [#/Vol] 7.52 10*3/uL Normal 3.70-11.00 [facility] Comment on above: Order Comment: Speci men Type: BLOOD SPECIMENOrdering Facility: [facility] Address: [address] [place] [address] Performed By: #### 5 8410-2 ####[facility] LABORATORYCLIA [id number] [address] CONFIRM BLOOD TYPEon 023 ABO O Normal [facility] Comment on above: Order Comment: Speci men Type: BLOOD SPECIMENOrdering Facility: [facility] Address: [address] [place] [address] Performed By: #### C ONABO ####[facility] BLOOD BANKCLIA [id number] [address] OF [place] Rh Nom (Bld) Positive Normal [facility] Comment on above: Order Comment: Speci men Type: BLOOD SPECIMENOrdering Facility: [facility] Address: [address] [place] [address], [place] [address] Performed By: #### C ONABO ####[facility] BLOOD BANKRUTLAND [facility] [id number] [place] [address] [facility] CONSULTon 06-21-2023 CONSULT HNO ID: [id number] Author: Juan Durán DO Service: General Surgery [...] course: 06/21: (more content not included)... Normal [facility] CONSULT HNO ID: [id number] Author: Lynda Holman PA-C Service: Neurosurgery Author Type: Physician Mold Closer Type: Consults Filed: 06/21/2023 5:14 PM Note [...] to help this. Patient was hiking near [place] and stated his legs felt weaker after prolonged hiking, but still had quite a ways to go back to his car. Patient reports he is not sure how exactly he fell, but landed on the ground, and had a worker at hiking trail help him up. Was transferred to [place] emergency department, where CT scan showed a [...] PRN desmopressi (more content not included)... Normal [facility] CT BRAIN WO IVCONon 06-21-[address] BRAIN WO IVCON * * *Final Report* * * DATE OF EXAM: Jun 21 2023 8:19PM [facility] 0504 - CT BRAIN WO IVCON / [...] 06/21/2023 at 1:35 PM. Outside study. RESULT: Data Entry Clerk (topogram) images: No additional findings. Post-operative change: [...] in the interval. No significant mass effect. Chief Revenue Officer: KATIA Transcribe Date/Time: Jun 21 2023 8:53P Dictated by : LINDA LOMBARDO MD This examination was interpreted and the report reviewed and electronically signed by: LINDA LOMBARDO MD on Jun 21 2023 9:02PM EST [id number] Normal [facility] Comprehensive metabolic 2000 panelon 06-21-2023 Albumin [Mass/Vol] 3.4 g/dL Low 3.9-4.9 [facility] Comment on above: Order Comment: Speci men Type: BLOOD SPECIMENOrdering Facility: [facility] Address: [address] [place] [address] Performed By: #### 3 040-3, 76993-8 ####[facility] LABORATORYCLIA [id number] [place] [address] [place] ALP [Catalytic activity/Vol] 66 U/L Normal 38-113 [facility] Comment on above: Order Comment: Speci men Type: BLOOD SPECIMENOrdering Facility: [facility] Address: [address] [place] [address] Performed By: #### 3 040-3, 96502-3 ####[facility] LABORATORYCLIA [id number] [address] [place] ALT With P-5'-P [Catalytic activity/Vol] 15 U/L Normal 10-54 [facility] Comment on above: Order Comment: Speci men Type: BLOOD SPECIMENOrdering Facility: [facility] Address: [address] [place] [address] Performed By: #### 3 040-3, 37658-3 ####[facility] LABORATORYCLIA [id number] [place] [address] [place] Anion gap [Moles/Vol] 9 mmol/L Normal 9-18 [facility] Comment on above: Order Comment: Speci men Type: BLOOD SPECIMENOrdering Facility: [facility] Address: [address] [place] [address] Performed By: #### 3 040-3, 74658-7 ####[facility] LABORATORYCLIA [id number] [address] [place] AST With P-5'-P [Catalytic activity/Vol] 23 U/L Normal 14-40 [facility] Comment on above: Order Comment: Speci men Type: BLOOD SPECIMENOrdering Facility: [facility] Address: [address] [place] [address] Performed By: #### 3 , ####[facility]ORATORYCLIA [id number] [place] [address] [place] Bilirubin [Mass/Vol] 0.8 mg/dL Normal 0.2-1.3 [facility] Comment on above: Order Comment: Speci men Type: BLOOD SPECIMENOrdering Facility: [facility] Address: [address] [place] [address] Performed By: #### 3 , ####[facility] LABORATORYCLIA [id number] [place] [address] [place] Calcium [Mass/Vol] 8.6 mg/dL Normal 8.5-10.2 [facility] Comment on above: Order Comment: Speci men Type: BLOOD SPECIMENOrdering Facility: [facility] Address: [address] [place] [address] Performed By: #### 3 , ####[facility]ORATORYCLIA [id number] [place] [address] [place] Chloride [Moles/Vol] 109 mmol/L High 97-105 [facility] Comment on above: Order Comment: Speci men Type: BLOOD SPECIMENOrdering Facility: [facility] Address: [address] [place] [address] Performed By: #### 3 , ####[facility]ORATORYCLIA [id number] [place] [address] [place] CO2 [Moles/Vol] 23 mmol/L Normal 22-30 [facility] Comment on above: Order Comment: Speci men Type: BLOOD SPECIMENOrdering Facility: [facility] Address: [address] [place] [address] Performed By: #### 3 , ####[facility] LABORATORYCLIA [id number] [place] [address] [place] Creatinine [Mass/Vol] 0.74 mg/dL Normal 0.73-1.22 [facility] Comment on above: Order Comment: Mynoromer valentine Type: BLOOD SPECIMENOrdering Facility: [facility] Address: [address] [place] [address] Performed By: #### 3 040-3, 23205-0 ####[facility] LABORATORYCLIA [id number] [place] [address] [place] Creatinine and Glomerular filtration rate.predicted panel (S/P/Bld) 88 mL/min/1.73m??? Normal >=60 [facility] Comment on above: Order Comment: Manuel valentine Type: BLOOD SPECIMENOrdering Facility: [facility] Address: [address] [place] [address] Result Comment: Franny mated Glomerular Filtration Rate [...] actual GFR. Performed By: #### 3 040-3, 36882-1 ####[facility] LABORATORYCLIA [id number] [place] [id number] [place] Glucose [Mass/Vol] 112 mg/dL High 74-99 [facility] Comment on above: Order Comment: Manuel valentine Type: BLOOD SPECIMENOrdering Facility: [facility] Address: [place] [place] [address] Result Comment: The [place] Diabetes Association (ADA) provides guidance for cutoff [...] Standards of Medical Care in Diabetes 2016, [place] Diabetes Association. Diabetes Care. 2016.39(Suppl 1). Performed By: #### 3 -3, 45562-2 ####[facility]ORATORYCLIA [id number] [place] [address] [place] Potassium [Moles/Vol] 3.6 mmol/L Low 3.7-5.1 [facility] Comment on above: Order Comment: Speci men Type: BLOOD SPECIMENOrdering Facility: [facility] Address: [address] [place] [address] Performed By: #### 3 , ####[facility] LABORATORYCLIA [id number] [place] [address] [place] Protein [Mass/Vol] 5.6 g/dL Low 6.3-8.0 [facility] Comment on above: Order Comment: Speci men Type: BLOOD SPECIMENOrdering Facility: [facility] Address: [address] [place] [address] Performed By: #### 3 , ####[facility] LABORATORYCLIA [id number] [address] [place] Sodium [Moles/Vol] 141 mmol/L Normal 136-144 [facility] Comment on above: Order Comment: Speci men Type: BLOOD SPECIMENOrdering Facility: [facility] Address: [address] [place] [address] Performed By: #### 3 , ####[facility]ORATORYCLIA [id number] [address] [place] Urea nitrogen [Mass/Vol] 24 mg/dL Normal 9-24 [facility] Comment on above: Order Comment: Speci men Type: BLOOD SPECIMENOrdering Facility: [facility] Address: [address] [place] [address] Performed By: #### 3 3, ####[facility]ORATORYCLIA [id number] [address] [place] Determination of erythrocyte mean corpuscular volume (MCV)Ordered By: Gordon Hill on 06-21-2023 MCV (RBC) [Entitic vol] 90.2 fL 80-94 [facility] ED NOTEon 06-21-2023 ED NOTE HNO ID: [id number] Author: German Jorgensen MD Service: ? Author Type: Physician Type: ED Notes Filed: 06/21/2023 6:12 PM Note Text: Pt presenting as trauma transfer from [place] for SDH. The pt reports possibly having a syncopal event. He reports feeling normal at this time. He reports only AC is 81mg ASA that he had this am. 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 The patient received DDAVP, keppra and Consultation by NSGY and trauma during the time that critical care was provided.I discussed the plan of care with the RESIDENT and agree with the findings documented. Critical care time excludes separately billed procedures. MD German Vicente MD [facility] ED NOTE HNO ID: [id number] Author: Walter Reyes, [place] Service: ? Author Type: Shoe Dyer and Retort Setter Type: ED Notes Filed: 06/21/2023 4:06 PM Note Text: Bed: 09-ED Expected date: 06/21/23 Expected time: 3:48 PM Means of arrival: [facility] Comments: [facility] ED PROV NOTEon 06-21-2023 ED PROV NOTE HNO ID: [id number] Author: En Soria MD Service: Critical Care [...] PM PAGER/CONTACT #: EN SORIA 06/21/23 1850 [facility] ED PROV NOTE HNO ID: [id number] Author: German Jorgensen MD Service: Emergency Medicine Author Type: Physician Type: ED Provider Notes Filed: 06/26/2023 9:38 AM Note Text: ED Provider Note Patient Name: Deniz Kumar : 1935 SERVICE DATE: 06/21/23 History Patient presents with: Functional Transfers: Transfer from [place]. Patient fell today while walking, + head trauma, - blood thinners. CT scan revealed SDH. Head laceration bleeding controlled on arrival. AANDOx4. 88-year-old male with past medical history of prior TIA, hypertension presents to ED as a transfer from outside hospital. Patient was seen initially at [facility]. He says that he was walking outside [...] Capillary Refill: (more content not included)... Normal [facility] EKGon 06-21-2023 Electrocardiogram Ventricular Rate : 7 3 BPM Atrial Rate : 73 BPM P-R Interval : 144 ms QRS Duration : 72 ms Q-T Interval : 408 ms QTC Calculation(Bazett) : 449 ms Calculated P Woodruff : 105 degrees Calculated R Woodruff : -27 degrees Calculated T Woodruff : -7 degrees NORMAL SINUS RHYTHM INFERIOR INFARCT , AGE UNDETERMINED LATERAL INJURY PATTERN ACUTE HI / STEMI ABNORMAL ECG NO PREVIOUS ECGS AVAILABLE Confirmed by MD TOUSSAINT THOMAS ([id number]) on 07/07/2023 6:57:05 PM NAME : DENIZ KUMAR PID : [id number] : 1935 Gender : Male Race : ORD : Procedure Date : Jun 21 2023 16:41:11 Edit Date : Jul 07 2023 18:57:08 Diagnosis: NORMAL SINUS RHYTHM INFERIOR INFARCT , AGE UNDETERMINED LATERAL INJURY PATTERN ACUTE HI / STEMI ABNORMAL ECG NO PREVIOUS ECGS AVAILABLE Confirmed by MD TOUSSAINT THOMAS ([id number]) on 07/07/2023 6:57:05 PM Test Reason : Location : 4 : [facility] ED 9 Overread By : MD TOUSSAINT THOMAS Edited By : MD TOUSSAINT THOMAS Referred By : , Acquired by : TONEY REYNOSO Normal [facility] Ethanol SerPl-mCncon 023 Ethanol [Mass/Vol] mg/dL Normal <11 [facility] Comment on above: Order Comment: Speci men Type: BLOOD SPECIMENOrdering Facility: [facility] Address: [address] [place] [address] Performed By: #### 5 643-2 ####[facility] LABORATORYCLIA [id number] [place] [id number] [place] HISTORY PHYSICALon 3 HISTORY PHYSICAL HNO ID: [id number] Author: Mariposa Cervantes MD Service: General Surgery Author Type: Physician Type: HANDP Filed: 06/22/2023 10:16 AM Note Text: TRAUMA SURGERY HANDP [facility] ARRIVAL DATE: 06/21/2023 ARRIVAL TIME: AM INJURY [...] COVID-19 original vaccine, age 12+ yr, monovalent (Its Time Compliance-[employer] - VALENCIA TOP) 10/14/2021 COVID-19 original vaccine, age 12+ yr, monovalent (P[employer]ION[employer] - PURPLE TOP) 07/07/2020 07/29/2020 04/05/2021 COVID-19 vaccine, age 12+ yr, season (PFIZER-BIONTECH) 04/05/2023 COVID-19 vaccine, age 12+ [...] vaccine, unspecified formulation 03/31/2012 03/31/2013 novel influenza (X0J1-97) vaccine, PF 06/29/2009 pneumococcal (PCV13) vaccine, 13 [...] bilaterally, t (more content not included)... Normal [facility] Hematocrit Auto (Bld) [Volum e fraction]Ordered By: Gordon Hill on 06-21-2023 Hematocrit (Bld) [Volume fraction] 45.0 % 40-54 [facility] INR in Blood by Coagulation assayOrdered By: Gordon Hill on 06-21-2023 INR Coag (Bld) [Relative time] 1.1 {INR} [facility] Laboratory - Chemistry and C hemistry - challengeOrdered By: Gordon Hill on 06-21-2023 ALP [Catalytic activity/Vol] 69 U/L 45-117 [facility] ALT [Catalytic activity/Vol] 20 U/L [facility] CK [Catalytic activity/Vol] 75 U/L 39-308 [facility] CO2 [Moles/Vol] 25.0 mmol/L 21.0-32.0 [facility] Globulin (S) [Mass/Vol] 2.8 g/dL 2.2-4.2 [facility] Urea nitrogen/Creatinine [Mass ratio] 40.6 mg/mg 10-20 [facility] Laboratory - CoagulationOrde red By: oGrdon Hill on 06-21-2023 aPTT Coag (Bld) [Time] 25.2 s 24.1-36.2 [facility] PT Coag (PPP) [Time] 14.0 s 11.7-14.9 [facility] - Hematology and Cell countsOrdered By: Gordon Hill on 06-21-2023 Erythrocyte distribution width (RBC) [Entitic vol] 41.4 fL 35.1-43.9 [facility] Erythrocyte distribution width (RBC) [Ratio] 12.7 % 11.6-14.6 [facility] Immature granulocytes/100 WBC (Bld) 0.600 % 0.0-0.9 [facility] Comment on above: IG% - Immature Granu locytes (promyelocytes, myelocytes and metamyelocytes) > 1% indicates that a LEFT SHIFT is Present. MCH (RBC) [Entitic mass] 30.1 pg 27.0-32.0 [facility] Nucleated RBC/100 WBC (Bld) [Ratio] 0 % 0-5 [facility] Lipase SerPl-cCncon 06-21-20 23 Lipase [Catalytic activity/Vol] 13 U/L Low [facility] Comment on above: Order Comment: Speci men Type: BLOOD SPECIMENOrdering Facility: [facility] Address: [address] [place], [place] [address] Performed By: #### 3 040-3, 87124-2 ####[facility] LABORATORYCLIA [id number] [place] [address] [place] [facility] Auto (RBC) [Mass/Vol]Or dered By: Gordon Hill on 06-21-2023 MCHC (RBC) [Mass/Vol] 33.3 g/dL 32-36 [facility] No Panel InformationOrdered By: Gordon Hill on 06-21-2023 Estimated Creatinine Clearance Calc 70.52 ml/min [facility] Estimated GFR (MDRD) Amer 115 mL/min >60 [facility] Comment on above: GFR Calc Estimated GFR (MDRD) Non-Af Amer 95 mL/min >60 [facility] Comment on above: Non- GFR Calc PT panel Coag (PPP)on 2022 INR Coag (PPP) [Relative time] 1.1 {INR} Normal 0.9-1.3 [facility] Comment on above: Order Comment: Speci men Type: BLOOD SPECIMENOrdering Facility: [facility] Address: [address] [place] [address] Result Comment: Christie min K Antagonist (VKA) Therapeutic Range: INR 2 to 3 (Target INR of 2.5) Note: For patients treated with VKA drugs, such as warfarin, the [place] [employer]icians 2012 Guideline recommends [...] to 3.5 (target INR of 3). Kaylyn GH, et al. Chest 2012, 141:7S-47S Meagan RA, et al. [facility] 2017, 70: 252-289 Performed By: #### 3 4528-0, 70590-2 ####[facility] LABORATORYCLIA [id number] [place] [id number] [place] PT Coag (PPP) [Time] 11.3 s Normal 9.7-13.0 [facility] Comment on above: Order Comment: Speci men Type: BLOOD SPECIMENOrdering Facility: [facility] Address: [address] [place] [address] Performed By: #### 3 4528-0, 38799-6 ####[facility] LABORATORYCLIA [id number] [address] STATES OF [facility] Platelets bldOrdered By: Vimal Hill on 06-21-2023 Platelets (Bld) [#/Vol] 109 10*3/uL 150-450 [facility] STAPH AUREUS PCRon S. aureus and MRSA panel GM+probe (Nose) Normal Negative [facility] Comment on above: Order Comment: Speci men Type: SWAB OF INTERNAL NOSEOrdering Facility: [facility] Address: [address] [place] [address] Result Comment: Nega tive for Staphylococcus aureus by PCR. Negative for MRSA by PCR Performed By: #### S APCR ####[facility] LABORATORYCLIA [id number] [address] [place] Serum or plasma albumin sharon urement (mass/volume)Ordered By: Gordon Hill on 06-21-2023 Albumin [Mass/Vol] 3.3 g/dL 3.2-5.0 [facility] Serum or plasma albumin/glob ulin mass ratioOrdered By: Gordon Hill on 06-21-2023 Albumin/Globulin [Mass ratio] 1.2 {ratio} 0.9-2.4 [facility] Serum or plasma calcium sharon urement (mass/volume)Ordered By: Gordon Hill on 06-21-2023 Calcium [Mass/Vol] 8.6 mg/dL 8.5-10.1 [facility] Serum or plasma creatinine m easurement (mass/volume)Ordered By: Gordon Hill on 06-21-2023 Creatinine [Mass/Vol] 0.81 mg/dL 0.70-1.30 [facility] Comment on above: The validity of the calculated GFR & GFRAA in patients over 70 years has not been determined. Clinical correlation is essential. Serum or plasma urea nitroge n measurement (mass/volume)Ordered By: Gordon Hill on 06-21-2023 Urea nitrogen [Mass/Vol] 33 mg/dL 7-18 [facility] TYPE + SCREENon 06-21-2023 ABO O Normal [facility] Comment on above: Order Comment: Speci men Type: BLOOD SPECIMEN [facility] Address: [address] [place] [address] Performed By: #### T SCR #### [facility] CLIA [id number] [address] HISTORICAL AB SCR STATUS Negative Normal [facility] Comment on above: Order Comment: Speci men Type: BLOOD SPECIMEN [facility] Address: [address] [place] [address] Performed By: #### T SCR #### [facility] CLIA [id number] [address] [place] Rh Nom (Bld) Positive Normal [facility] Comment on above: Order Comment: Speci men Type: BLOOD SPECIMEN [facility] Address: [address] [place] [address] Performed By: #### T SCR #### [facility] CLIA [id number] [address] STATES OF [facility] TYPE AND SCREEN EXPIRATION 06/24/2023 23:59 Normal [facility] Comment on above: Order Comment: Speci men Type: BLOOD SPECIMEN [facility] Address: [address] [place] [address] Performed By: #### T SCR #### [facility] CLIA [id number] [address] [place] Thin prep Papanicolaou smear with manual screeningOrdered By: Gordon Hill on 06-21-2023 Thin prep Papanicolaou smear with manual screening 18 U/L 15-37 [facility] Thin prep Papanicolaou smear with manual screening 6 5-15 [facility] XR ANKLE 3V AP/LAT/OBL LTon 06-21-2023 XR [...] involvement of the tibiofibular syndesmosis (Wong C). Chief Revenue Officer: KATIA Transcribe Date/Time: Jun 21 2023 11:20P Dictated by : KATHERINE BLOOD MD This examination was interpreted and the report reviewed and electronically signed by: KATHERINE BLOOD MD on Jun 21 2023 11:24PM EST [id number] Normal [facility] XR CHEST 1V FRONTALon 2022 XR CHEST [...] Other: . IMPRESSION: No acute radiographic abnormality. Chief Revenue Officer: [facility] Transcribe Date/Time: Jun 21 2023 4:48P Dictated by : WILLARD BRASHER MD This examination was interpreted and the report reviewed and electronically signed by: WILLARD BRASHER MD on Jun 21 2023 4:48PM EST [id number] Normal [facility] XR PELVIS 1V APon 06-21-2023 XR PELVIS [...] tissue abnormality. IMPRESSION: No acute radiographic abnormality. Chief Revenue Officer: [employer] Transcribe Date/Time: Jun 21 2023 4:49P Dictated by : WILLARD BRASHER MD This examination was interpreted and the report reviewed and electronically signed by: WILLARD BRASHER MD on Jun 21 2023 4:49PM EST [id number] Normal [facility] aPTT PPPon 06-21-2023 aPTT Coag (PPP) [Time] 26.3 s Normal 23.0-32.4 [facility] Comment on above: Order Comment: Speci men Type: BLOOD SPECIMENOrdering Facility: [facility] Address: [address] [place] [address] Performed By: #### 3 4528-0, 76820-9 ####[facility] LABORATORYCLIA [id number] [place] [address] [place] UA DIP, URINE (POC)on 2022 BILIRUBIN UA (POCT) Negative Negative [facility] CLARITY UA (POCT) Clear [facility] COLOR UA (POCT) Yellow [facility] GLUCOSE UA (POCT) Negative Negative mg/dL [facility] HEMOGLOBIN/BLOOD UA (POCT) Negative Negative [facility] KETONE UA (POCT) Negative Negative mg/dL [facility] LEUKOCYTES UA (POCT) Negative Negative [facility] NITRITE UA (POCT) Negative Negative [facility] PH UA (POCT) 5.5 4.5 - 8.0 [facility] Protein Ql (U) 30 mg/dL Abnormal Negative mg/dL [facility] SPECIFIC GRAVITY UA (POCT) 1.025 1.005 - 1.030 [facility] UROBILINOGEN UA (POCT) 0.2 E.U./dL Gema l E.U./dL [facility] UA DIP, URINE (POC)on 2022 BILIRUBIN UA (POCT) Negative Negative [facility] CLARITY UA (POCT) Clear [facility] COLOR UA (POCT) Yellow [facility] GLUCOSE UA (POCT) Negative Negative mg/dL [facility] HEMOGLOBIN/BLOOD UA (POCT) Negative Negative [facility] KETONE UA (POCT) Negative Negative mg/dL [facility] LEUKOCYTES UA (POCT) Negative Negative [facility] NITRITE UA (POCT) Negative Negative [facility] PH UA (POCT) 5.5 4.5 - 8.0 [facility] Protein Ql (U) Negative Negative mg/dL [facility] SPECIFIC GRAVITY UA (POCT) 1.025 1.005 - 1.030 [facility] UROBILINOGEN UA (POCT) 0.2 E.U./dL Gema l E.U./dL [facility] EMERGENCY DEPARTMENT REPORTo n 11-04-2018 EMERGENCY DEPARTMENT [place] [address] HEALTH INFORMATION MANAGEMENT EMERGENCY DEPARTMENT REPORT Patient: DENIZ KUMARGERMAN M.D. [id number] [age] M Status: DEP ER ED [...] did have a conversation with the tele-neurologist credit correspondence clerk at the main campus of the [facility]. We agreed at this point the [...] By: GERMAN JOYNER M.D. Tests performed at: [address] [address] Normal [facility] BMPon 10-29-2018 Anion gap molar conc 15.7 mmol/L Normal 15-22 [facility] Comment on above: Performed By: #### L 301.0120, L100.0010 #### [facility] [address] [place] [address] 12877 Calcium mass conc 9.1 mg/dL Normal 8.8-10.2 [facility] Comment on above: Performed By: #### L 301.0120, L100.0010 #### [facility] [address] [place] [address] 57429 Chloride molar conc 102 mmol/L Normal 98-107 [facility] Comment on above: Performed By: #### L 301.0120, L100.0010 #### [facility] [address] [place] [address] 18330 CO2 molar conc 27 mmol/L Normal 22-29 [facility] Comment on above: Performed By: #### L 301.0120, L100.0010 #### [facility] [address] [place] [address] 62948 Creatinine mass conc 1.03 mg/dL Normal 0.70-1.20 [facility] Comment on above: Performed By: #### L 301.0120, L100.0010 #### [facility] [address] [place] [address] 34458 eGFR if AFR WILMER > 60 ml/min/1.73m2 Normal [facility] Comment on above: Result Comment: eGFR >= [...] Performed By: #### L 301.0120, L100.0010 #### [facility] [address] [place] [address] 47354 eGFR nonAFR Wilmer > 60 ml/Min/1.73m2 Normal [facility] Comment on above: Performed By: #### L 301.0120, L100.0010 #### [facility] [address] [place] [address] 85041 Glucose mass conc 109 mg/dL Normal 82-115 [facility] Comment on above: Performed By: #### L 301.0120, L100.0010 #### [facility] [address] [place] [address] 24112 Potassium molar conc 3.7 mmol/L Normal 3.5-5.0 [facility] Comment on above: Performed By: #### L 301.0120, L100.0010 #### [facility] [address] [place] [address] 76405 Sodium molar conc 141 mmol/L Normal 135-145 [facility] Comment on above: Performed By: #### L 301.0120, L100.0010 #### [facility] - LABORATORY [address] [place] [address] 04972 Urea nitrogen mass conc 31 mg/dL High 8-23 [facility] Comment on above: Performed By: #### L 301.0120, L100.0010 #### [facility] - [facility]AT[facility] [address] [place] [address] 18056 CBCon 10-29-2018 Basophils #/vol (Bld) 0.00 x10(3) Normal 0.00-0.10 [facility] Comment on above: Performed By: #### L 200.0010 #### [facility] [address] [place] [address] 59759 Basophils/100 WBC (Bld) 0.4 % Normal 0.0-1.0 [facility] Comment on above: Performed By: #### L 200.0010 #### [facility] - [facility] [address] [place] [address] 44375 Eosinophils #/vol (Bld) 0.00 x10(3) Normal 0.00-0.54 [facility] Comment on above: Performed By: #### L 200.0010 #### [facility] [address] [place] [address] 94124 Eosinophils/100 WBC (Bld) 0.9 % Normal 0.5-4.9 [facility] Comment on above: Performed By: #### L 200.0010 #### [facility] - LAB[facility]ATORY [address] [place] [address] 57828 Erythrocyte distribution width Ratio (RBC) 13.3 % Normal 12.5-15.7 [facility] Comment on above: Performed By: #### L 200.0010 #### [facility] [address] [place] [address] 94636 Hematocrit Volume Fraction (Bld) 45.6 % Normal 36.0-48.0 [facility] Comment on above: Performed By: #### L 200.0010 #### [facility] - [facility] [address] [place] [address] 76641 Hemoglobin mass conc (Bld) 15.4 g/dL Normal 12.0-16.0 [facility] Comment on above: Performed By: #### L 200.0010 #### [facility] - [facility] [address] [place] [address] 64037 Lymphocytes #/vol (Bld) 1.20 x10(3) Normal 1.00-3.50 [facility] Comment on above: Performed By: #### L 200.0010 #### [facility] - [facility] [address] [place] [address] 70109 Lymphocytes/100 WBC (Bld) 25.9 % Normal 16.0-48.0 [facility] Comment on above: Performed By: #### L 200.0010 #### [facility] [address] [place] [address] 20600 MCH Entitic mass (RBC) 30.7 pg Normal 28.5-32.9 [facility] Comment on above: Performed By: #### L 200.0010 #### [facility] - [facility] [address] [place] [address] 98273 MCHC mass conc (RBC) 33.8 g/dL Normal 33.0-36.0 [facility] Comment on above: Performed By: #### L 200.0010 #### [facility] - [facility] [address] [place] [address] 83065 MCV Entitic volume (RBC) 90.8 fL Normal 80.0-99.0 [facility] Comment on above: Performed By: #### L 200.0010 #### [facility] - [facility] [address] [place] [address] 13294 Monocytes #/vol (Bld) 0.50 x10(3) Normal 0.30-0.80 [facility] Comment on above: Performed By: #### L 200.0010 #### [facility] - [facility] [address] [place] [address] 10114 Monocytes/100 WBC (Bld) 11.3 % High 4.3-11.2 [facility] Comment on above: Performed By: #### L 200.0010 #### [facility] - [facility] [address] [place] [address] 71328 Neutrophils #/vol (Bld) 2.90 x10(3) Normal 1.40-6.50 [facility] Comment on above: Performed By: #### L 200.0010 #### [facility] - [facility] [address] [place] [address] 31332 Neutrophils/100 WBC (Bld) 61.5 % Normal 45.0-73.0 [facility] Comment on above: Performed By: #### L 200.0010 #### [facility] - [facility] [address] [place] [address] 09180 Platelet mean volume Entitic volume (Bld) 8.3 fL Normal 7.5-9.5 [facility] Comment on above: Performed By: #### L 200.0010 #### [facility] [address] [place] [address] 26977 Platelets #/vol (Bld) 133 X10(3) Low 150-450 [facility] Comment on above: Performed By: #### L 200.0010 #### [facility] - [facility] [address] [place] [address] 40190 RBC #/vol (Bld) 5.02 x10(6) High 3.30-5.00 [facility] Comment on above: Performed By: #### L 200.0010 #### [facility] [address] [place] [address] 44965 WBC #/vol (Bld) 4.8 x10(3) Normal 4.5-10.0 [facility] Comment on above: Performed By: #### L 200.0010 #### [facility] - [facility] [address] [place] [address] ANGIO HEAD W/WO CONTRASTo n 10-29-2018 CT ANGIO HEAD W/WO CONTRAST [address] [address] Name: DENIZ KUMAR Phys: GERMAN JOYNER M.D. : [birth year] Age: 83 Sex: M Acct: [id number] Loc: ED Exam Date: 10/29/18 Status: DEP ER Radiology No.: [id number] Unit Number: [id number] Exam # Type/Exam [id number] CT / CT ANGIO HEAD W/WO CONTRAST [...] Professional interpretation provided by [facility] [place] on [employer]-60. Thank you for this referral. < > Reported By: ALEJANDRO RICHARDSON M.D. Signed In [employer] By: ALEJANDRO RICHARDSON M.D. << Signature on File>> Reported By: ALEJANDRO RICHARDSON M.D. Signed By: ALEJANDRO RICHARDSON M.D. Tests performed at: [address] [address] Normal [facility] CT ANGIO NECK W/WO CONTRASTo n 10-29-2018 CT ANGIO NECK W/WO CONTRAST [address] [address] Name: DENIZ KUMAR Phys: GERMAN JOYNER M.D. : 36 Age: 83 Sex: M Acct: [id number] Loc: ED Exam Date: 10/29/18 Status: [facility] ER Radiology No.: [id number] Unit Number: [id number] Exam # Type/Exam [id number] CT / CT ANGIO NECK W/WO CONTRAST [...] Professional interpretation provided by [facility] [place] on [employer]. Thank you for this referral. < > Reported By: ALEJANDRO RICHARDSON M.D. Signed In [employer] By: ALEJANDRO RICHARDSON M.D. << Signature on File>> Reported By: ALEJANDRO RICHARDSON M.D. Signed By: ALEJANDRO RICHARDSON M.D. Tests performed at: [address] [address] Normal [facility] CT BRAIN WITHOUT CONTRAST- C TBon 10-29-2018 CT BRAIN WITHOUT CONTRAST- CTB [address] [address] Name: DENIZ KUMAR Phys: GERMAN JOYNER M.D. : 36 Age: 83 Sex: M Acct: [id number] Loc: ED Exam Date: 10/29/18 Status: DEP ER Radiology No.: [id number] Unit Number: [id number] Exam # Type/Exam [id number] CT / CT BRAIN WITHOUT CONTRAST- CTB [...] Professional interpretation provided by [facility] [place] on [employer]-66. Thank you for this referral. < > Reported By: KATHY RUIZ D.O. Signed In [employer] By: KATHY RUIZ D.O. << Signature on File>> Reported By: KATHY RUIZ D.O. Signed By: KATHY RUIZ D.O. Tests performed at: [address] [address] Normal [facility] GLUCOSE FSon 10-29-2018 Glucose mass conc 93 mg/dL Normal 70-110 [facility] Comment on above: Performed By: #### L 100.0070 #### [facility] [address] [place] [address] 18257 PROGRESSon 10-29-2018 Protein mass conc HNO ID: [id number] Author: Jacquie Agosto Service: ? Author Type: Physician Type: Progress Notes Filed: 10/29/2018 9:55 PM Note Text: TELESTROKE DOCUMENTATION Name: Deniz Kumar : 1935 Site: [facility] Dr[facility] Joyner Last Known Well (Date/Time): 10/29/18 0753 Neurologist Evaluation (Date/Time): 10/29/18 1425 Chief Complaint: left sided weakness and dysarthria [...] and management Thank you for contacting the [facility]. I appreciate the opportunity for allowing me to participate in Deniz Kumar's care. Please feel free to contact me and/or the [facility] at any time if you have any further questions or need additional assistance. Jacquie Agosto MD October 29, 2018 9:46 PM Normal [facility] PTon 10-29-2018 INR Coag RelTime (PPP) 1.1 {INR} Normal [facility] Comment on above: Result Comment: CO UMADIN [...] systemic embolism) 2.0-3.0 AMI (to prevent recurrent HI) 2.5-3.5 Valvular heart disease 2.0-3.0 Atrial fibrillation 2.0-3.0 Mechanical prosthetic valves (high risk) 2.5-3.5 Bileaflet mechanical valve in aortic position 2.0-3.0 Presence of Lupus Anticoagulant or Antiphospholipid Antibodies 2.5-3.5 PANIC VALUE: GREATER THAN OR EQUAL TO 4.5 Performed By: #### L 200.1642, L200.1602 #### [facility] - [facility] [address] [place] [address] 861[address] Prothrombin time (PT) Coag time (PPP) 11.5 s Normal 9.4-12.5 [facility] Comment on above: Performed By: #### L 200.1642, L200.1602 #### [facility] - LAB[facility]ATORY [address] [place] [address] PTTon 10-29-2018 aPTT Coag time (Bld) 35.9 s Normal 25.1-36.5 [facility] Comment on above: Result Comment: Hepa rin Protocol Therapeutic Range = 54.0-90.0 secs Performed By: #### L 200.1642, L200.1602 #### [facility] - [facility] [address] [place] [address]87[address] TROPONIN Ton 10-29-2018 Troponin T.cardiac mass conc ug/L Normal 0-0.010 [facility] Comment on above: Performed By: #### L 301.0120, L100.0010 #### [facility] [address] [place] [address] XR ANKLE GENERAL 3V AP/LAT/O BL LEFT [facility] Vital Signs Date Time Vital Sign Value Performing Clinician Facility 11-30-2024 15:33-0400 Diastolic blood pressure 89 mm[Hg] Dr. Vadim Deras MD Work Phone: 7(035)650-309952 [place] [address] 11-30-2024 15:33-0400 Heart rate 61 /min Dr. Vadim Deras MD Work Phone: 6(420)127-071152 [place] [address] 11-30-2024 15:33-0400 Systolic blood pressure 169 mm[Hg] Dr. Vadim Deras MD Work Phone: 6(158)426-069252 [place] [address] 11-30-2024 14:13-0400 Body height 182.[address] Vadim Deras MD Work Phone: 0(615)030-912352 [place] [address] 11-30-2024 14:13-0400 Body mass index (BMI) [Ratio] 28.5 kg/m2 Dr. Vadim Deras MD Work Phone: 7(986)251-537052 [place] [address] 11-30-2024 14:13-0400 Body temperature 98.1 [degF] Dr. Vadim Deras MD Work Phone: 5(183)934-225252 [place] [address] 11-30-2024 14:13-0400 Body weight 95.[address] Vadim Deras MD Work Phone: 6(622)624-034952 [place] [address] 11-30-2024 14:13-0400 Respiratory rate 18 /min Dr. Vadim Deras MD Work Phone: 7(403)408-439652 [place] [address] 11-30-2024 14:13-0400 SaO2% (BldA) [Mass fraction] 99 % Dr. Vadim Deras MD Work Phone: 9(409)170-135352 [place] [address] 09-04-2024 08:09-0500 Body mass index (BMI) [Ratio] 29.39 kg/m2 Bonifacio Ledbetter Jr., MD Work Phone: [facility] 09-04-2024 08:09-0500 Body weight 98.29 kg Bonifacio Ledbetter Jr., MD Work Phone: [facility] 09-04-2024 08:09-0500 Heart rate 57 /min Bonifacio Ledbetter Jr., MD Work Phone: [facility] 09-04-2024 08:09-0500 Respiratory rate 18 /min Bonifacio Ledbetetr Jr., MD Work Phone: [facility] 09-04-2024 08:09-0500 SaO2% (BldA) [Mass fraction] 97 % Bonifacio Ledbetter Jr., MD Work Phone: [facility] 06-26-2024 10:13-0500 Body mass index (BMI) [Ratio] 29.36 kg/m2 Bonifacio Ledbetter Jr., MD Work Phone: [facility] 06-26-2024 10:13-0500 Body weight 98.2 kg Bonifacio Ledbetter Jr., MD Work Phone: [facility] 06-26-2024 10:13-0500 Diastolic blood pressure 85 mm[Hg] Bonifacio Ledbetter Jr., MD Work Phone: [facility] 06-26-2024 10:13-0500 Heart rate 68 /min Bonifacio Ledbetter Jr., MD Work Phone: [facility] 06-26-2024 10:13-0500 SaO2% (BldA) [Mass fraction] 97 % Bonifacio Ledbetter Jr., MD Work Phone: [facility] 06-26-2024 10:13-0500 Systolic blood pressure 132 mm[Hg] Bonifacio Ledbetter Jr., MD Work Phone: [facility] 03-13-2024 09:31-0400 Diastolic blood pressure 90 mm[Hg] Bonifacio Ledbetter Jr., MD Work Phone: [facility] 03-13-2024 09:31-0400 Systolic blood pressure 145 mm[Hg] Bonifacio Ledbetter Jr., MD Work Phone: [facility] 03-13-2024 09:25-0400 Body mass index (BMI) [Ratio] 29.38 kg/m2 Bonifacio Ledbetter Jr., MD Work Phone: [facility] 03-13-2024 09:25-0400 Body weight 98.25 kg Bonifacio Ledbetter Jr., MD Work Phone: [facility] 03-13-2024 09:25-0400 Heart rate 62 /min Bonifacio Ledbetter Jr., MD Work Phone: [facility] 03-13-2024 09:25-0400 SaO2% (BldA) [Mass fraction] 96 % Bonifacio Ledbetter Jr., MD Work Phone: [facility] 02-21-2024 09:28-0400 Diastolic blood pressure 73 mm[Hg] Vadim Deras MD Work Phone: [facility] Comment on above: BP Kvng average 02-21-2024 09:28-0400 Heart rate 79 /min Vadim Deras MD Work Phone: [facility] 02-21-2024 09:28-0400 Systolic blood pressure 112 mm[Hg] Vadim Deras MD Work Phone: [facility] Comment on above: BP Kvng average 02-21-2024 09:09-0400 Body height 182.9 cm Vadim Deras MD Work Phone: [facility] 02-21-2024 09:09-0400 Body mass index (BMI) [Ratio] 28.91 kg/m2 Vadim Deras MD Work Phone: [facility] 02-21-2024 09:090400 Body weight 96.7 kg Vadim Deras MD Work Phone: [facility] 02-21-2024 09:09-0400 Respiratory rate 16 /min Vadim Deras MD Work Phone: [facility] 02-21-2024 09:09-0400 SaO2% (BldA) [Mass fraction] 98 % Vadim Deras MD Work Phone: [facility] 11-21-2023 10:12-0400 Diastolic blood pressure 87 mm[Hg] Vadim Deras MD Work Phone: [facility] 11-21-2023 10:12-0400 Heart rate 60 /min Vadim Deras MD Work Phone: [facility] 11-21-2023 10:12-0400 Systolic blood pressure 149 mm[Hg] Vadim Deras MD Work Phone: [facility] 11-21-2023 10:00-0400 Body mass index (BMI) [Ratio] 29.97 kg/m2 Vadim Deras MD Work Phone: [facility] 11-21-2023 10:00-0400 Body temperature 98.4 [degF] Vadim Deras MD Work Phone: [facility] 11-21-2023 10:00-0400 Body weight 100.25 kg Vadim Deras MD Work Phone: [facility] 10-14-2023 12:03-0400 Body temperature 98.6 [degF] Vadim Deras MD Work Phone: [facility] 10-14-2023 12:03-0400 Body weight 98.88 kg Vadim Deras MD Work Phone: [facility] 10-14-2023 12:03-0400 Diastolic blood pressure 96 mm[Hg] Vadim Deras MD Work Phone: [facility] 10-14-2023 12:03-0400 Heart rate 76 /min Vadim Deras MD Work Phone: [facility] 10-14-2023 12:03-0400 Respiratory rate 20 /min Vadim Deras MD Work Phone: [facility] 10-14-2023 12:03-0400 Systolic blood pressure 150 mm[Hg] Vadim Deras MD Work Phone: [facility] 08-23-2023 08:22-0500 Diastolic blood pressure 82 mm[Hg] Vadim Deras MD Work Phone: [facility] 08-23-2023 08:22-0500 Systolic blood pressure 120 mm[Hg] Vadim Deras MD Work Phone: [facility] 08-23-2023 08:12-0500 Body temperature 96.49 [degF] Vadim Deras MD Work Phone: [facility] 08-23-2023 08:12-0500 Body weight 97.98 kg Vadim Deras MD Work Phone: [facility] 08-23-2023 08:12-0500 Heart rate 69 /min Vadim Deras MD Work Phone: [facility] 08-23-2023 08:12-0500 Respiratory rate 16 /min Vadim Deras MD Work Phone: [facility] 08-23-2023 08:12-0500 SaO2% (BldA) [Mass fraction] 97 % Vadim Deras MD Work Phone: [facility] 08-06-2023 12:54-0500 Body height 182.9 cm Bonifacio Valdez MD Work Phone: [facility] 08-06-2023 12:54-0500 Body weight 90.72 kg Bonifacio Valdez MD Work Phone: [facility] 08-06-2023 12:54-0500 Respiratory rate 20 /min Bonifacio Valdez MD Work Phone: [facility] 07-18-2023 11:04-0500 Body temperature 97.7 [degF] Dr. Vadim Deras Work Phone: [facility] 07-18-2023 11:04-0500 Diastolic blood pressure 95 mm[Hg] Dr. Vadim Deras Work Phone: [facility] 07-18-2023 11:04-0500 Heart rate 77 /min Dr. Vadim Deras Work Phone: [facility] 07-18-2023 11:04-0500 Respiratory rate 16 /min Dr. Vadim Deras Work Phone: [facility] 07-18-2023 11:04-0500 SaO2% (BldA) [Mass fraction] 94 % Dr. Vadim Deras Work Phone: [facility] 07-18-2023 11:04-0500 Systolic blood pressure 140 mm[Hg] Dr. Vadim Deras Work Phone: [facility] 07-16-2023 17:20-0500 Body mass index (BMI) [Ratio] 28.8 kg/m2 Dr. Vadim Deras Work Phone: [facility] 07-16-2023 17:20-0500 Body weight 96.[address] Vadim Deras Work Phone: [facility] 07-10-2023 10:16-0500 Body height 182.[address] Vadim Deras Work Phone: [facility] 06-21-2023 15:03-0500 Diastolic blood pressure 101 mm[Hg] [facility] 06-21-2023 15:03-0500 Heart rate 72 /min [facility] 06-21-2023 15:03-0500 Respiratory rate 16 /min [facility] 06-21-2023 15:03-0500 SaO2% (BldA) [Mass fraction] 95 % [facility] 06-21-2023 15:03-0500 Systolic blood pressure 150 mm[Hg] [facility] 06-21-2023 12:44-0500 Body height 182.88 cm [facility] 06-21-2023 12:44-0500 Body mass index (BMI) [Ratio] 32.2 kg/m2 [facility] 06-21-2023 12:44-0500 Body temperature 96.6 [degF] [facility] 06-21-2023 12:44-0500 Body weight 107.9 kg [facility] 02-28-2023 14:20-0400 Body temperature 98.1 [degF] Radha [place] PA-C Work Phone: [facility] 02-28-2023 14:20-0400 Diastolic blood pressure 84 mm[Hg] Radha [place] PA-C Work Phone: [facility] 02-28-2023 14:20-0400 Heart rate 84 /min Radha Jose Carlos PA-C Work Phone: [facility] 02-28-2023 14:20-0400 SaO2% (BldA) [Mass fraction] 95 % Radha [place] PA-C Work Phone: [facility] 02-28-2023 14:20-0400 Systolic blood pressure 136 mm[Hg] Radha [place] PA-C Work Phone: [facility] 02-15-2023 08:08-0400 Body weight 97.07 kg Vadim Deras MD Work Phone: [facility] 02-15-2023 08:08-0400 Diastolic blood pressure 82 mm[Hg] Vadim Deras MD Work Phone: [facility] 02-15-2023 08:08-0400 Heart rate 85 /min Vadim Deras MD Work Phone: [facility] 02-15-2023 08:08-0400 Respiratory rate 16 /min Vadim Deras MD Work Phone: [facility] 02-15-2023 08:08-0400 SaO2% (BldA) [Mass fraction] 96 % Vadim Deras MD Work Phone: [facility] 02-15-2023 08:08-0400 Systolic blood pressure 128 mm[Hg] Vadim Deras MD Work Phone: [facility] 01-25-2023 14:58-0400 Body height 182.9 cm Su Ware MD Work Phone: [facility] 01-25-2023 14:58-0400 Body temperature 98.01 [degF] Su Ware MD Work Phone: [facility] 01-25-2023 14:58-0400 Body weight 99.07 kg Su Ware MD Work Phone: [facility] 01-25-2023 14:58-0400 Diastolic blood pressure 80 mm[Hg] Su Ware MD Work Phone: [facility] 01-25-2023 14:58-0400 Heart rate 91 /min Su Ware MD Work Phone: [facility] 01-25-2023 14:58-0400 SaO2% (BldA) [Mass fraction] 96 % Su Ware MD Work Phone: [facility] 01-25-2023 14:58-0400 Systolic blood pressure 132 mm[Hg] Su Ware MD Work Phone: [facility] 01-04-2023 08:10-0400 Body height 182.9 cm Lynda Meyers PA-C Work Phone: [facility] 01-04-2023 08:10-0400 Body temperature 97.81 [degF] Lynda Meyers PA-C Work Phone: [facility] 01-04-2023 08:10-0400 Body weight 98.88 kg Lynda Meyers PA-C Work Phone: [facility] 01-04-2023 08:10-0400 Diastolic blood pressure 88 mm[Hg] Lynda Meyers PA-C Work Phone: [facility] 01-04-2023 08:10-0400 Heart rate 80 /min Lynda Meyers PA-C Work Phone: [facility] 01-04-2023 08:10-0400 Respiratory rate 12 /min Lynda Meyers PA-C Work Phone: [facility] 01-04-2023 08:10-0400 SaO2% (BldA) [Mass fraction] 95 % Lynda Meyers PA-C Work Phone: [facility] 01-04-2023 08:10-0400 Systolic blood pressure 138 mm[Hg] Lynda Meyers PA-C Work Phone: [facility] 09-25-2022 13:26-0400 Body temperature 98.01 [degF] Hyun Moriah HOG STOMACH PREPARER.WHARF TENDER HELPER Work Phone: [facility] 09-25-2022 13:26-0400 Body weight 100.25 kg Hyun Moriah HOG STOMACH PREPARER.WHARF TENDER HELPER Work Phone: [facility] 09-25-2022 13:26-0400 Diastolic blood pressure 84 mm[Hg] Hyun Moriah HOG STOMACH PREPARER.WHARF TENDER HELPER Work Phone: [facility] 09-25-2022 13:26-0400 Heart rate 88 /min Hyun Moriah HOG STOMACH PREPARER.WHARF TENDER HELPER Work Phone: [facility] 09-25-2022 13:26-0400 Respiratory rate 18 /min Hyun Moriah HOG STOMACH PREPARER.WHARF TENDER HELPER Work Phone: [facility] 09-25-2022 13:26-0400 SaO2% (BldA) [Mass fraction] 96 % Hyun Moriah HOG STOMACH PREPARER.WHARF TENDER HELPER Work Phone: [facility] 09-25-2022 13:26-0400 Systolic blood pressure 128 mm[Hg] Hyun Moriah HOG STOMACH PREPARER.WHARF TENDER HELPER Work Phone: [facility] 08-31-2022 08:13-0500 Body height 182.9 cm Lynda Meyers PA-C Work Phone: [facility] 08-31-2022 08:13-0500 Body temperature 98.49 [degF] Lynda Meyers PA-C Work Phone: [facility] 08-31-2022 08:13-0500 Body weight 98.88 kg Lynda Meyers PA-C Work Phone: [facility] 08-31-2022 08:13-0500 Diastolic blood pressure 90 mm[Hg] Lynda Meyers PA-C Work Phone: [facility] 08-31-2022 08:13-0500 Heart rate 80 /min Lynda Meyers PA-C Work Phone: [facility] 08-31-2022 08:13-0500 Respiratory rate 14 /min Lynda Meyers PA-C Work Phone: [facility] 08-31-2022 08:13-0500 SaO2% (BldA) [Mass fraction] 95 % Lynda Meyers PA-C Work Phone: [facility] 08-31-2022 08:13-0500 Systolic blood pressure 134 mm[Hg] Lynda Meyers PA-C Work Phone: [facility] 08-16-2022 08:08-0500 Body height 182.9 cm Vadim Deras MD Work Phone: [facility] 08-16-2022 08:08-0500 Body temperature 97.2 [degF] Vadim Deras MD Work Phone: [facility] 08-16-2022 08:08-0500 Body weight 97.52 kg Vadim Deras MD Work Phone: [facility] 08-16-2022 08:08-0500 Diastolic blood pressure 72 mm[Hg] Vadim Deras MD Work Phone: [facility] 08-16-2022 08:08-0500 Heart rate 72 /min Vadim Deras MD Work Phone: [facility] 08-16-2022 08:08-0500 Respiratory rate 12 /min Vadim Deras MD Work Phone: [facility] 08-16-2022 08:08-0500 Systolic blood pressure 118 mm[Hg] Vadim Deras MD Work Phone: [facility] 05-04-2022 08:28-0400 Body temperature 97.59 [degF] Susan Corado PA-C Work Phone: [facility] 05-04-2022 08:28-0400 Body weight 96.89 kg Susan Athy PA-C Work Phone: [facility] 05-04-2022 08:28-0400 Diastolic blood pressure 78 mm[Hg] Susan Athy PA-C Work Phone: [facility] 05-04-2022 08:28-0400 Heart rate 72 /min Susan Athy PA-C Work Phone: [facility] 05-04-2022 08:28-0400 Respiratory rate 16 /min Susan Athy PA-C Work Phone: [facility] 05-04-2022 08:28-0400 SaO2% (BldA) [Mass fraction] 98 % Susan Athy PA-C Work Phone: [facility] 05-04-2022 08:28-0400 Systolic blood pressure 126 mm[Hg] Susan Athy PA-C Work Phone: [facility] 03-05-2022 09:25-0400 Body temperature 97.2 [degF] Haylie Chin APRN.WHARF TENDER HELPER Work Phone: [facility] 03-05-2022 09:25-0400 Body weight 97.7 kg Haylie Chin APRN.WHARF TENDER HELPER Work Phone: [facility] 03-05-2022 09:25-0400 Diastolic blood pressure 90 mm[Hg] Halyie Chin APRN.WHARF TENDER HELPER Work Phone: [facility] 03-05-2022 09:25-0400 Heart rate 92 /min Haylie Chin APRN.WHARF TENDER HELPER Work Phone: [facility] 03-05-2022 09:25-0400 Respiratory rate 18 /min Haylie Chin APRN.WHARF TENDER HELPER Work Phone: [facility] 03-05-2022 09:25-0400 SaO2% (BldA) [Mass fraction] 94 % Haylie Chin APRN.WHARF TENDER HELPER Work Phone: [facility] 03-05-2022 09:25-0400 Systolic blood pressure 132 mm[Hg] Haylie Chin APRN.CNP Work Phone: [facility] 02-08-2022 08:55-0400 Body temperature 97 [degF] Vadim Deras MD Work Phone: [facility] 02-08-2022 08:55-0400 Body weight 94.98 kg Vadim Deras MD Work Phone: [facility] 02-08-2022 08:55-0400 Diastolic blood pressure 68 mm[Hg] Vadim Deras MD Work Phone: [facility] 02-08-2022 08:55-0400 Heart rate 68 /min Vadim Deras MD Work Phone: [facility] 02-08-2022 08:55-0400 Respiratory rate 16 /min Vadim Deras MD Work Phone: [facility] 02-08-2022 08:55-0400 Systolic blood pressure 114 mm[Hg] Vadim Deras MD Work Phone: [facility] 12-25-2021 14:35-0400 Body height 182.9 cm Su Ware MD Work Phone: [facility] 12-25-2021 14:35-0400 Body temperature 98.29 [degF] Su Ware MD Work Phone: [facility] 12-25-2021 14:35-0400 Body weight 96.62 kg Su Ware MD Work Phone: [facility] 12-25-2021 14:35-0400 Diastolic blood pressure 58 mm[Hg] Su Ware MD Work Phone: [facility] 12-25-2021 14:35-0400 Heart rate 91 /min Su Ware MD Work Phone: [facility] 12-25-2021 14:35-0400 SaO2% (BldA) [Mass fraction] 94 % Su Ware MD Work Phone: [facility] 12-25-2021 14:35-0400 Systolic blood pressure 106 mm[Hg] Su Ware MD Work Phone: [facility] 09-29-2021 13:02-0400 Body height 182.9 cm Su Ware MD Work Phone: [facility] 09-29-2021 13:02-0400 Body temperature 98.29 [degF] Su Ware MD Work Phone: [facility] 09-29-2021 13:02-0400 Body weight 97.52 kg Su Ware MD Work Phone: [facility] 09-29-2021 13:02-0400 Diastolic blood pressure 68 mm[Hg] Su Ware MD Work Phone: [facility] 09-29-2021 13:02-0400 Heart rate 81 /min Su Ware MD Work Phone: [facility] 09-29-2021 13:02-0400 SaO2% (BldA) [Mass fraction] 96 % Su Ware MD Work Phone: [facility] 09-29-2021 13:02-0400 Systolic blood pressure 136 mm[Hg] Su Ware MD Work Phone: [facility] Encounters Encounter Date Encounter Type Care Provider Facility Start: 12-23-2024 ambulatory Nishi Johnson ty:[facility] Start: 12-09-2024 End: 12-09-2024 Telephone encounter Demetrio Gill MD Work Phone: Urology Start: 11-30-2024 End: 11-30-2024 Emergency department patient visit Dr. Vadim Deras MD Work Phone: -Emergency Department Work Phone: Start: 11-27-2024 ambulatory Nishi Johnson ty:[facility] Start: 11-27-[address] Nishi Romero MD -[facility] Work Phone: Start: 10-12-2024 End: 10-12-2024 ambulatory BONIFACIO LEDBETTER JR Facility:[facility] Start: 10-12-2024 End: 10-12-2024 Patient encounter procedure Demetrio Gill MD Work Phone: Urology Comment on above: Overactive bladder ( Primary Dx); Benign prostatic hyperplasia with urinary frequency; Nocturia Start: 10-05-2024 End: 10-05-[address] Nishi Romero MD -[facility] Work Phone: Start: 10-05-2024 End: 10-05-2024 ambulatory Nishi LITTLEJOHN Facility:[facility] Start: 09-28-2024 End: 09-28-2024 Telephone encounter Vadim Deras MD Work Phone: [address] [place] [address] Comment on above: Patient Update Start: 09-11-2024 [...] Start: 09-04-2024 End: 09-04-2024 ambulatory VADIM DERAS Facility:[facility] Start: 08-26-2024 End: 08-26-2024 Telephone encounter Vadim Deras MD Work Phone: Internal Medicine [place] Comment on above: Forms Start: 07-13-2024 ambulatory Nishi Anggenesis ANNETTA Facili ty:[facility] Start: 06-26-2024 End: 06-26-2024 Patient encounter procedure Bonifacio Ledbetter MD Work Phone: Neurology Comment on above: Gait abnormality (Pr imary Dx); Leg weakness, bilateral; Speech disturbance, unspecified type; Ataxia; History of subdural hematoma; Spinal stenosis in cervical region; Spinal stenosis of lumbar region without neurogenic claudication Start: 06-26-2024 End: 06-26-2024 ambulatory BONIFACIO LEDBETTER JR Facility:[facility] Start: 06-15-2024 ambulatory Vadim Philippei ty:[facility] Start: 06-08-2024 End: 06-08-2024 ambulatory Nishi Angdla OLS Facility:[facility] Start: 06-01-2024 End: 06-01-2024 Telephone encounter Vadim Deras MD Work Phone: Internal Medicine [place] Start: 06-01-2024 End: 06-01-2024 ambulatory Nishi Angdla OLS Facility:[facility] Start: 05-19-2024 End: 05-20-2024 Telephone encounter Bonifacio Ledbetter MD Neurology Comment on above: Patient Question Start: 05-19-2024 ambulatory Preston Chi Ton Facility:[facility] Start: 05-19-2024 End: 05-30-2024 Evaluation and management of inpatient Preston Chi Ton Facility:[facility] Start: 05-15-2024 End: 05-19-2024 ambulatory Kendall Harriseri Facility:[facility] Start: 05-15-2024 ambulatory Nagaprademaribel Naganavdeepthi Fa cility:[facility] Start: 05-15-2024 ambulatory Jon Arce Fac ility:[facility] Start: 04-27-2024 End: 04-27-2024 Telephone encounter Vadim Deras MD Work Phone: Internal Medicine [place] Comment on above: Patient Question Start: 04-13-2024 End: 07-20-2024 Telephone encounter Bonifacio Ledbetter MD Work Phone: Neurology Comment on above: Results Start: 04-12-2024 End: 04-12-2024 Telephone encounter Bonifacio Ledbetter MD Work Phone: Sleep Start: 04-10-2024 End: 04-10-2024 ambulatory BONIFACIO LEDBETTER JR Facility:[facility] Start: 04-10-2024 End: 04-10-2024 Subsequent hospital visit by physician [facility] (I-Stat/1.5t) Work Phone: Radiology Comment on above: Ataxia [R27.0] Start: 04-02-2024 End: 04-02-2024 ambulatory Vadim Deras MD Work Phone: [facility] [employer] Comment on above: Allied Health Visit (Medication [...] region Start: 03-13-2024 End: 03-13-2024 ambulatory BONIFACIO LEDBETTER JR Facility:[facility] Start: 02-25-2024 End: 02-26-2024 Telephone encounter Vadim Deras MD Work Phone: Family Medicine [place] Comment on above: Medication Problem Start: 02-21-2024 End: 02-21-2024 ambulatory VADIM DERAS Facility:[facility] Start: 02-21-2024 End: 02-21-2024 Patient encounter procedure Vadim Deras MD Work Phone: [facility] [place] Comment on above: Medicare annual [facility], subsequent (Primary Dx); Screening for depression; Encounter for screening examination for other mental health and behavioral disorders; History of TIA (transient ischemic attack); Gait abnormality; Essential hypertension; Hyperlipidemia, unspecified hyperlipidemia type; Benign prostatic hyperplasia with urinary obstruction; Urgency of urination; Edema of leg Start: 02-14-2024 End: 02-14-2024 ambulatory VADIM DERAS Facility:[facility] Start: 02-13-2024 Telephone encounter Neurology Provid er Neurology Comment on above: Opened In Error Orders Start: 01-30-2024 Refill Vadim gruber MD Work Phone: [facility] [place] Comment on above: Refill Request Start: 11-21-2023 End: 11-21-2023 ambulatory VADIM DERAS Facility:[facility] Start: 11-21-2023 End: 11-21-2023 Patient encounter procedure Vadim Deras MD Work Phone: [facility] [place] Comment on above: Leg weakness, bilate ral (Primary Dx); Gait abnormality; Hyperlipidemia, unspecified hyperlipidemia type; Essential hypertension; Urgency of urination; Benign prostatic hyperplasia with urinary obstruction Start: 11-14-2023 End: 11-14-2023 ambulatory VADIM DERAS Facility:[facility] Start: 10-14-2023 End: 10-14-2023 Patient encounter procedure Vadim Deras MD Work Phone: Internal Medicine [place] Comment on above: Gait abnormality (Pr imary Dx); Leg weakness, bilateral; Essential hypertension Start: 09-09-2023 Refill Vadim gruber MD Work Phone: [facility] [place] Comment on above: Refill Request Start: 08-23-2023 End: 08-23-2023 Patient encounter procedure Vadim Deras MD Work Phone: [facility] [place] Comment on above: Essential hypertensi on (Primary Dx); History of TIA (transient ischemic attack); Gait abnormality; Hyperlipidemia, unspecified hyperlipidemia type; Thrombocytopenia, unspecified (HCC); Hypoalbuminemia Start: 08-15-2023 Telephone encounter Bonifacio Valdez MD Work Phone: [facility] Comment on above: Orders Start: 08-13-2023 Telephone encounter Vadim escamilla MD Work Phone: Internal Medicine [place] Comment on above: home health calling Start: 08-06-2023 End: 08-06-2023 Patient encounter procedure Bonifacio Valdez MD Work Phone: [facility] Comment on above: Closed bimalleolar f racture of left ankle with routine healing, subsequent encounter (Primary Dx) Start: 08-06-2023 End: 08-06-2023 ambulatory BONIFACIO VALDEZ Facility:[facility] Start: 08-02-2023 End: 08-02-2023 ambulatory NICOLÁS JUNIOR Facility:[facility] Start: 08-02-2023 End: 08-02-2023 Subsequent hospital visit by physician [facility] CT SCAN [employer] [employer] Comment on above: SAH (subarachnoid he morrhage) ([facility]) [I60.9] Start: 07-29-2023 End: 07-29-[address] Vadim Deras Work Phone: [facility] Work Phone: Start: 07-29-2023 End: 07-29-[address] Vadim Deras Work Phone: [facility] Start: 07-22-2023 End: 07-22-[address] Vadim Deras Work Phone: [facility] Work Phone: Start: 07-22-2023 End: 07-22-[address] Vadim Deras Work Phone: [facility] Start: 07-22-[address] Vadim Deras Work Phone: [facility] Start: 07-19-2023 End: 07-19-[address] Vadim Deras Work Phone: [facility] Start: 07-16-2023 End: 07-16-2023 ambulatory NICOLÁS JUNIOR Facility:[facility] Start: 07-09-2023 End: 07-09-2023 ambulatory BONIFACIO VALDEZ Facility:[facility] Start: 06-28-2023 Non-patient / Non-visit Dr. Sunshine Deras Work Phone: [facility] Work Phone: Start: 06-27-2023 End: 07-18-2023 Evaluation and management of inpatient Dr. Vadim Deras Work Phone: [facility] Start: 06-21-2023 End: 06-27-2023 Evaluation and management of inpatient VADIM DERAS Facility:[facility] Start: 06-21-2023 End: 06-21-2023 Emergency department patient visit [facility] Work Phone: Start: 04-01-2023 Refill Vadim gruber MD Work Phone: Internal [facility] [place] Comment on above: Refill Request Start: 02-28-2023 End: 02-28-2023 Patient encounter procedure Radha Branch PA-C Work Phone: General Surgery Comment on above: S/P hernia repair (P rimary Dx) Start: 02-15-2023 End: 02-15-2023 Patient encounter procedure Vadim Deras MD Work Phone: Internal Medicine [place] Comment on above: Benign prostatic hyp erplasia [...] End: 09-25-2022 Patient encounter procedure Hyun Major APRN.CNP Work Phone: [facility] Comment on above: Eye problem (Primary Dx) Start: 08-31-2022 End: 08-31-2022 Patient encounter procedure Lynda Meyers PA-C Work Phone: Urology Comment on above: OAB (overactive blad moo) (Primary Dx); Erectile dysfunction, unspecified erectile dysfunction type; Benign prostatic hyperplasia with urinary obstruction Start: 08-16-2022 End: 08-16-2022 Patient encounter procedure Vadim Deras MD Work Phone: [facility] [place] Comment on above: Medicare annual well ness visit, subsequent (Primary Dx); Thrombocytopenia, unspecified (HCC); Essential hypertension; Benign prostatic hyperplasia with urinary obstruction; Hyperlipidemia, unspecified hyperlipidemia type; Erectile dysfunction, unspecified erectile dysfunction type Start: 08-03-2022 Refill Vadim gruber MD Work Phone: [facility] Medicine [place] Comment on above: Refill Request Start: 05-05-2022 Telephone encounter Valdez K greta MICHELLE.WHARF TENDER HELPER Work Phone: [facility] Comment on above: Results Start: 05-04-2022 End: 05-04-2022 Patient encounter procedure Susan Taryn Corado PA-C Work Phone: [facility] Comment on above: Exposure to COVID-19 virus (Primary Dx) Start: 03-05-2022 End: 03-05-2022 Patient encounter procedure Haylie Giuseppe MICHELLE.WHARF TENDER HELPER Work Phone: [facility] Comment on above: Skin infection (Prim betzy Dx) Start: 02-08-2022 End: 02-08-2022 Patient encounter procedure Vadim Deras MD Work Phone: Internal Medicine [place] Comment on above: Myalgia (Primary Dx) ; Need for vaccination; Essential hypertension; Hyperlipidemia, unspecified hyperlipidemia type Start: 01-11-2022 Refill Vadim gruber MD Work Phone: Internal Medicine [place] Comment on above: Refill Request Start: 12-25-2021 [...] Dr. Katiana Deras MD Work Phone: Start: 10-12-2024 Urnls dip stick/tabl et rgnt auto w/o [...] Radex ankle complete minimum 3 views Bonifacio aVldez MD Work Phone: Start: 08-02-2023 Ct head/brain w/o co ntrast material Rosanne Flannery HOG STOMACH PREPARER.WHARF TENDER HELPER Work Phone: Start: 07-16-[address] Vadim Deras Work Phone: Start: 07-03-[address] Katiana Deras Work Phone: Start: 06-21-2023 Antibody screen BONIFACIO VALDEZ Comment on above: Order Comment: Speci men Type: BLOOD SPECIMEN Ordering Facility: [facility] Address: [address] [place], [place] [id number] Performed By: #### T SCR #### [facility] CLIA [id number] [address] Start: 06-21-2023 CT cervical spine wi thout contrast Start: 06-21-2023 CT of head without contrast Start: 01-04-2023 Urnls dip stick/tabl et rgnt auto w/o microscopy Lynda Meyers PA-C Work Phone: Start: 08-31-2022 Urnls dip stick/tabl et rgnt auto w/o microscopy [id number] PA-C Work Phone: Start: 10-29-2018 Electrocardiogram Plan of Treatment Date Care Activity Detail Author Start: 06-21-2033 Urine microalbumin profile DTaP,Tdap,Td Vaccine (2 - Td or Tdap) [facility] Start: 02-13-2027 Diabetes Screening Diabetes Screenin [facility] Start: 11-13-2026 Diabetes Screening Diabetes Screenin [facility] Start: 08-16-2026 Diabetes Screening Diabetes Screenin [facility] Start: 06-26-2026 Diabetes Screening Diabetes Screenin g [facility] Start: 02-08-2026 DIABETES SCREEN DIABETES SCREEN [facility] Start: 02-08-2026 Diabetes Screening Diabetes Screenin g [facility] Start: 08-09-2025 DIABETES SCREEN DIABETES SCREEN [facility] Start: 02-20-2025 Anxiety Screening Anxiety Screening [facility] Start: 02-20-2025 Depression Screening Depression Scre ening [facility] Start: 02-01-2025 DIABETES SCREEN DIABETES SCREEN [facility] Start: 01-18-2025 End: 01-18-2025 Patient encounter procedure 01/18/2025 10:45 AM EDT Office Visit Urology [id number] [place] [address] [place] [address] [place], [place] [id number] Return in about 3 months (around 01/11/2025). Urology Comment on above: Return in about 3 mo nths (around 01/11/2025). Start: 11-30-2024 End: 11-30-2024 [facility] Start: 10-12-2024 End: 10-12-2024 Patient encounter procedure 10/12/2024 10:45 AM EDT Office Visit Urology [address] [place] [address] [place] [address] [place], [place] [id number] [facility] Urology Comment on above: BPH Start: 09-24-2024 Covid-19 Vaccine ( season) Covid-19 Vaccine () [facility] Start: 09-04-2024 End: 09-04-2024 Patient encounter procedure 09/04/2024 8:00 AM EST Office Visit Neurology [address] [place] [address] [id number] Bonifacio Ledbetter Jr., MD [address] [place] [address] [id number] est gait abn, BLE weakness, speech, ataxia, spinal stenosis, f/u 4-8 wks per [facility], 60 min slot, [facility] 06/26/24 Neurology Comment on above: est gait abn, BLE we akness, speech, ataxia, spinal stenosis, f/u 4-8 wks per [facility], 60 min slot, enrique 06/26/24 Start: 08-24-2024 End: 08-24-2024 Patient encounter procedure 08/24/2024 2:00 PM EST Office Visit Internal Medicine [address] [id number] Vadim Deras MD [facility] [place], [place] [id number] 6 month follow up [facility] [place] Comment on above: 6 month follow up Start: 08-07-2024 DIABETES SCREEN DIABETES SCREEN [facility] Start: 07-01-2024 Advance Directive Discussion Advance Directive Discussion [facility] Start: 07-01-2024 Medicare Advantage Annual Wellness Visit Medicare [facility] Annual Wellness Visit [facility] Start: 06-26-2024 End: 06-26-2024 Patient encounter procedure Neurology Comment on above: follow up after MRI follow up after MRI, 03/13 enrique IbarraManohar- MRI *3 ordered (done) Start: 04-10-2024 End: 04-10-2024 Patient encounter procedure Radiology Comment on above: Spinal stenosis of l umbar region without neurogenic claudication [M48.061] Tremor [R25.1]; Spin al stenosis in cervical region [M48.02]; Spinal stenosis of cervical region [M48.02] Ataxia [R27.0] Start: 03-13-2024 End: 03-13-2024 Patient encounter procedure 03/13/2024 9:20 AM EDT Office Visit Neurology [address] [place], [place] [id number] Bonifacio Ledbetter Jr., MD [address] [address] Gait abnormality [R26.9]; Leg weakness, bilateral [R29.898] Neurology Comment on above: Gait abnormality [R2 6.9]; Leg weakness, bilateral [R29.898] Start: 03-01-2024 Covid-19 Vaccine ( season) Covid-19 Vaccine ( season) [facility] Start: 03-01-2024 Influenza vaccination Influenza Vacc ine (#1) [facility] Start: 02-21-2024 End: 02-21-2024 Patient encounter procedure 02/21/2024 9:20 AM EDT Office Visit Internal Medicine [place] [address] [place], [place] [id number] Vadim Deras MD [address] [place], [place] [id number] Annual Medicare w/3 month follow-up [facility] [place] Comment on above: Annual Medicare w/3 month follow-up Start: 02-13-2024 End: 05-14-2024 Basic metabolic 2000 panel - Serum or Plasma BASIC METABOLIC PANEL Lab Routine Essential hypertension Expected: 02/13/2024, Expires: 05/14/2024 [facility] Comment on above: Expected: 02/13/2024 , Expires: 05/14/2024 Start: 02-13-2024 End: 05-14-2024 CBC panel - Blood by Automated count COMPLETE BLOOD COUNT Lab Routine Thrombocytopenia, unspecified (HCC) Expected: 02/13/2024, Expires: 05/14/2024 [facility] Work Phone: Comment on above: Expected: 02/13/2024 , Expires: 05/14/2024 Start: 01-16-2024 Urine microalbumin profile [facility] Comment on above: Postponed from 08/23 (Declined at this time) Start: 12-20-2023 End: 12-20-2023 Patient encounter procedure 12/20/2023 2:20 PM EDT Office Visit Neurology [address] [place], [place] [id number] Bonifaico Ledbetter Jr., MD [address] [facility] [address] [place] [address] Gait abnormality [R26.9]; Leg weakness, bilateral [R29.898] Neurology Comment on above: Gait abnormality [R2 6.9]; Leg weakness, bilateral [R29.898] Start: 11-21-2023 End: 02-20-2024 Comprehensive metabolic 2000 panel - Serum or Plasma COMP METABOLIC PANEL Lab Routine Hyperlipidemia, unspecified hyperlipidemia type Expected: 11/21/2023, Expires: 02/20/2024 [facility] Work Phone: Comment on above: Expected: 11/21/2023 , Expires: 02/20/2024 Start: 11-21-2023 End: 02-20-2024 Lipid 1996 panel - Serum or Plasma LIPID PANEL BASIC Lab Routine Hyperlipidemia, unspecified hyperlipidemia type Expected: 11/21/2023, Expires: 02/20/2024 [facility] Work Phone: Comment on above: Expected: 11/21/2023 , Expires: 02/20/2024 Start: 08-18-2023 End: 10-18-2023 Comprehensive metabolic 2000 panel - Serum or Plasma COMP METABOLIC PANEL Lab Routine Hyperlipidemia, unspecified hyperlipidemia type Expected: 08/18/2023, Expires: 10/18/2023 [facility] Work Phone: Comment on above: Expected: 08/18/2023 , Expires: 10/18/2023 Start: 08-18-2023 End: 10-18-2023 Lipid 1996 panel - Serum or Plasma LIPID PANEL BASIC Lab Routine Hyperlipidemia, unspecified hyperlipidemia type Expected: 08/18/2023, Expires: 10/18/2023 [facility] Work Phone: Comment on above: Expected: 08/18/2023 , Expires: 10/18/2023 Start: 08-06-2023 Covid-19 Vaccine () Covid-19 Vaccine () [facility] Start: 07-29-2023 Blood chemistry [facility] Start: 07-22-2023 Blood chemistry [facility] Start: 07-18-2023 Patient discharge [facility] Start: 07-17-2023 Development of care plan [facility] Start: 07-12-2023 Provision of activit y privileges [facility] Start: 07-01-2023 Advance Directive Discussion Advance Directive Discussion [facility] Start: 07-01-2023 Behavioral Health Screening Behavioral Health Screening [facility] Start: 07-01-2023 Depression Assessment Depression Ass essment [facility] Start: 06-29-2023 Speech therapy management [facility] Start: 06-28-2023 Speech therapy assessment [facility] Start: 06-28-2023 Developing a treatme nt plan [facility] Start: 06-28-2023 Development of care plan [facility] Start: 06-27-2023 Following clinical pathway protocol [facility] Start: 06-27-2023 Admission procedure [facility] Start: 06-27-2023 Measuring intake and output [facility] Start: 06-27-2023 Patient referral to dietitian [facility] Start: 06-27-2023 Referral to occupational therapist [facility] Start: 06-27-2023 Referral to service [facility] Start: 06-27-2023 Vital signs measurements [facility] Start: 06-27-2023 End: 06-27-2023 [facility] Start: 06-21-2023 Aspiration precautions [facility] Start: 06-21-2023 [facility] Start: 03-01-2023 Influenza vaccination INFLUENZA (#1) [facility] Start: 02-15-2023 End: 04-17-2023 Urinalysis complete panel - Urine [facility] Work Phone: Comment on above: Expected: 02/15/2023 , Expires: 04/17/2023 Start: 02-13-2023 End: 04-15-2023 CBC panel - Blood by Automated count CBC Lab Routine Thrombocytopenia, unspecified (HCC) Expected: 02/13/2023, Expires: 04/15/2023 [facility] Work Phone: Comment on above: Expected: 02/13/2023 , Expires: 04/15/2023 Start: 02-13-2023 End: 04-15-2023 Comprehensive metabolic 2000 panel - Serum or Plasma COMP METABOLIC PANEL Lab Routine Hyperlipidemia, unspecified hyperlipidemia type Expected: 02/13/2023, Expires: 04/15/2023 [facility] Work Phone: Comment on above: Expected: 02/13/2023 , Expires: 04/15/2023 Start: 02-13-2023 End: 04-15-2023 Lipid 1996 panel - Serum or Plasma LIPID PANEL BASIC Lab Routine Hyperlipidemia, unspecified hyperlipidemia type Expected: 02/13/2023, Expires: 04/15/2023 [facility] Work Phone: Comment on above: Expected: 02/13/2023 , Expires: 04/15/2023 Start: 02-13-2023 End: 04-15-2023 PSA/PROSTSPECAG SCRN PSA/PROSTSPECAG SCRN Lab Routine Benign prostatic hyperplasia with urinary obstruction Expected: 02/13/2023, Expires: 04/15/2023 [facility] Work Phone: Comment on above: Expected: 02/13/2023 , Expires: 04/15/2023 Start: 08-11-2022 End: 10-11-2022 Basic metabolic 2000 panel - Serum or Plasma BASIC METABOLIC PNL Lab Routine Hyperlipidemia, unspecified hyperlipidemia type Expected: 08/11/2022, Expires: 10/11/2022 [facility] Work Phone: Comment on above: Expected: 08/11/2022 , Expires: 10/11/2022 Start: 08-11-2022 End: 10-11-2022 Lipid 1996 panel - Serum or Plasma LIPID PANEL BASIC Lab Routine Hyperlipidemia, unspecified hyperlipidemia type Expected: 08/11/2022, Expires: 10/11/2022 [facility] Work Phone: Comment on above: Expected: 08/11/2022 , Expires: 10/11/2022 Start: 07-01-2022 ADVANCE DIRECTIVE DISCUSSION ADVANCE DIRECTIVE DISCUSSION [facility] Start: 07-01-2022 DEPRESSION ASSESSMENT DEPRESSION ASS ESSMENT [facility] Start: 05-04-2022 End: 05-14-2022 SARS-CoV-2 (COVID-19) RNA [Presence] in Respiratory specimen by GM with probe detection ASYMPTOMATIC ELECTIVE COVID-19 Microbiology Routine Exposure to COVID-19 virus Expected: 05/04/2022, Expires: 05/14/2022 [facility] Work Phone: Comment on above: Expected: 05/04/2022 , Expires: 05/14/2022 Start: 03-01-2022 Influenza vaccination INFLUENZA (#1) [facility] Start: 07-01-2021 ADVANCE DIRECTIVE DISCUSSION ADVANCE DIRECTIVE DISCUSSION [facility] Start: 07-01-2021 DEPRESSION ASSESSMENT DEPRESSION ASS ESSMENT [facility] Start: 07-24-2020 FECAL OCCULT BLOOD FECAL OCCULT BLOO D [facility] Start: 01-14-2016 PNEUMOCOCCAL: 65+ (2 - PPSV23 or PCV20) PNEUMOCOCCAL: 65+ (2 - PPSV23 or PCV20) [facility] Start: 08-14-2012 SHINGRIX VACCINE (2 of 3) SHINGRIX VACCINE (2 of 3) [facility] Start: 2011 RSV Vaccine (1 - 1-d ose 75+ series) RSV Vaccine (1 - 1-dose 75+ series) [facility] Start: 1996 RSV Vaccine (1 - 1-d ose 60+ series) RSV Vaccine (1 - 1-dose 60+ series) [facility] Start: 1954 Anxiety Screening Anxiety Screening [facility] Start: 1953 Depression Screening Depression Scre ening [facility] End: 04-12-2025 MR Brain WO contrast MRI BRAIN WO IVCON Radiology Routine Ataxia 1 Occurrences starting 03/13/2024 until 04/12/2025 [facility] Work Phone: Comment on above: 1 Occurrences starti ng 03/13/2024 until 04/12/2025 End: 04-12-2025 MR Cervical spine WO contrast MRI CERVICAL SPINE WO IVCON Radiology Routine Tremor Spinal stenosis in cervical region Spinal stenosis of cervical region 1 Occurrences starting 03/13/2024 until 04/12/2025 [facility] Comment on above: 1 Occurrences starti ng 03/13/2024 until 04/12/2025 End: 04-12-2025 MR Lumbar spine WO contrast MRI LUMBAR SPINE WO IVCON Radiology Routine Spinal stenosis of lumbar region without neurogenic claudication 1 Occurrences starting 03/13/2024 until 04/12/2025 [facility] Comment on above: 1 Occurrences starti ng 03/13/2024 until 04/12/2025 Patient Education ED Abrasion ED Scalp Contusion ED Head Injury (Adult) [facility] Work Phone: Patient referral [facility] Work Phone: POST VOID RESIDUAL POST VOID RES IDUAL Procedures Routine Benign prostatic hyperplasia with urinary obstruction Erectile dysfunction, unspecified erectile dysfunction type Ordered: 08/31/2022 [facility] Work Phone: Comment on above: Ordered: 08/31/2022 POST VOID RESIDUAL [facility] Work Phone: Comment on above: Ordered: 01/04/2023 UA DIP, URINE (POC) UA DIP, URIN E (POC) Lab Routine OAB (overactive bladder) Ordered: 01/04/2023 [facility] Work Phone: Comment on above: Ordered: 01/04/2023 [facility] Immunizations Immunization Date Immunization Notes Care Provider [facility] 03-27-2024 COVID-19 vaccine, ag e 12+ yr (PFIZER-BIONTECH COMIRNATY) Vadim Deras MD Work Phone: [facility] 03-20-2024 influenza, high dose seasonal, preservative-free Vadim Deras MD Work Phone: [facility] 06-21-2023 tetanus toxoid, reduced diphtheria toxoid, and acellular pertussis vaccine, adsorbed [facility] 04-05-2023 Pfizer Covid-19 (Comirnaty) Dr. Vadim Deras Work Phone: [facility] 03-25-2023 influenza (aIIV4) vaccine, age 65+ yr, quadrivalent, PF (FLUAD QUAD) Vadim Deras MD Work Phone: [facility] 03-25-2023 influenza, injectabl e, quadrivalent, preservative free Dr. Vadim Deras Work Phone: [facility] 03-25-2023 influenza virus vaccine, unspecified formulation Vadim Deras MD Work Phone: [facility] 12-21-2022 COVID-19 vaccine, ag e 12+ yr, bivalent (PFIZER-BIONTECH) Lynda Meyers PA-C Work Phone: [facility] Work Phone: 03-27-2022 influenza, high dose seasonal, preservative-free aVdim Deras MD Work Phone: [facility] Work Phone: 03-12-2022 COVID-19 booster vaccine, age 12+ yr, bivalent (PFIZER-BIONTECH) Susan Corado PA-C Work Phone: [facility] Work Phone: 02-08-2022 pneumococcal (PCV20) vaccine, 20 valent (PREVNAR 20) Vadim Deras MD Work Phone: [facility] Work Phone: 02-08-2022 pneumococcal Conjugate, unspecified formulation Vadim Deras MD Work Phone: [facility] Work Phone: 10-14-2021 Covid (Pfizer) Dr. Vadim Deras Work Phone: [facility] 04-05-2021 Covid (Pfizer) Dr. Vadim Deras Work Phone: [facility] 03-17-2021 influenza, high-dose , quadrivalent vaccine (FLUZONE HIGH DOSE QUADRIVALENT) Su Ware MD Work Phone: [facility] Work Phone: 07-29-2020 Covid (Pfizer) Dr. Vadim Deras Work Phone: [facility] 07-08-2020 Covid (Pfizer) Dr. Vadim Deras Work Phone: [facility] 07-07-2020 COVID-19 vaccine, ag e 12+ yr (PFIZER-BIONTECH - PURPLE TOP) Su Ware MD Work Phone: [facility] Work Phone: 03-30-2020 influenza, high dose seasonal, preservative-free Su Ware MD Work Phone: [facility] Work Phone: 03-30-2019 influenza, high dose seasonal, preservative-free Su Ware MD Work Phone: [facility] Work Phone: 03-23-2018 influenza, high dose seasonal, preservative-free Su Ware MD Work Phone: [facility] Work Phone: 04-04-2017 influenza, injectabl e, quadrivalent, contains preservative Su Ware MD Work Phone: [facility] Work Phone: 04-04-2017 influenza, injectabl e, quadrivalent, preservative free Dr. Vadim Deras MD Work Phone: [facility] 04-04-2016 influenza, injectabl e, quadrivalent, preservative free Dr. Vadim Deras MD Work Phone: [facility] 04-04-2016 influenza, seasonal, injectable Su Ware MD Work Phone: [facility] 04-14-2015 influenza, high dose seasonal, preservative-free Su Ware MD Work Phone: [facility] 01-13-2015 pneumococcal conjuga te vaccine, 13 valent Su Ware MD Work Phone: [facility] 04-13-2014 influenza, injectabl e, quadrivalent, preservative free Dr. Vadim Deras MD Work Phone: [facility] 04-13-2014 influenza, seasonal, injectable Su Ware MD Work Phone: [facility] Work Phone: 03-31-2013 influenza virus vaccine, unspecified formulation Su Ware MD Work Phone: [facility] 06-19-2012 zoster vaccine, live Su child MD Work Phone: [facility] 06-06-2012 zoster vaccine, live Dr. Juan Deras Work Phone: [facility] 03-31-2012 influenza virus vaccine, unspecified formulation Su Ware MD Work Phone: [facility] 06-29-2009 novel [id number], preservative-free, injectable Su Ware MD Work Phone: [facility] Work Phone: 08-22-2007 tetanus and diphther ia toxoids, adsorbed, preservative free, for adult use (2 Lf of tetanus toxoid and 2 Lf of diphtheria toxoid) Su Ware MD Work Phone: [facility] Work Phone: Payers Date Payer Category [place]ayer [place] [id number] 2024 Medicaid [id number] 2024 Medicare [id number] 2024 Self-pay [id number] 2023 Medicare (Managed Care) [id number]. [id number] 2023 Private Health Insurance [facility] [id number] 2021 Medicare HUMANA MEDICARE HUMANA MEDICARE PPO [id number] 2021-Present [phone] [address] [address] [place] [address] PPO [id number] 2021 Medicare [id number] 2021 Medicare [id number] Unknown [employer] D[employer] PAC HMO [id number] Unknown [id number]. 462 Unknown [id number]. 462 Unknown [id number] [id number]. 462 Unknown [id number] 2.16.840.1.258708.3.579.2. 462 Unknown [id number] 2.840.1.746589.3.579.2. 462 Unknown [id number] 2.840.1.081207.3.579.2. 462 Unknown [id number] 2.840.1.680570.3.579.2. 462 Unknown [id number] 2..840.1.000856.3.579.2. 462 Unknown [id number] 2.840.1.740471.3.579.2. 462 Unknown [id number] 2.840.1.020640.3.579.2. 462 Unknown [id number] 2.840.1.295129.3.579.2. 462 Unknown [id number] 2.840.1.116830.3.579.2. 462 Unknown [id number] 2.840.1.124373.3.579.2. 462 Unknown [id number] 2.840.1.103383.3.579.2. 462 Unknown [id number] 2.840.1.675585.3.579.2. 462 Unknown [id number] 2.840.1.326065.3.579.2. 462 Unknown [id number] 2.840.1.254736.3.579.2. 462 Unknown [id number] 2.840.1.735915.3.579.2. 462 Social History Date Type Detail Facility Start: 02-08-2022 End: 02-21-2024 Tobacco smoking status NHIS Ex-smoker [facility] History of tobacco use Cigarette Smoker C [facility] History of tobacco use Pipe Smoker [facility] End: 07-01-1993 History of tobacco use User of smokeless tobacco [facility] Start: 09-29-2021 End: 09-04-2024 Alcohol intake Current drinker of alcohol (finding) [facility] Start: 09-29-2021 End: 10-12-2024 Alcohol intake [facility] Work Phone: Start: 08-11-2021 End: 08-16-2022 History SDOH Alcohol Frequency 3 [facility] Start: 08-11-2021 End: 08-16-2022 History SDOH Alcohol Std Drinks 1 [facility] Start: 07-28-2020 History SDOH Alcohol Comment or less. [facility] Start: 08-11-2021 End: 08-16-2022 History SDOH Social Connections Phone 5 [facility] Start: 08-11-2021 End: 08-16-2022 History SDOH Social Connections Living 7 [facility] Start: 08-11-2021 End: 08-16-2022 History SDOH Physical Activity DPW 2 [facility] Start: 08-11-2021 End: 08-16-2022 History SDOH Financial 4 [facility] Start: 1935 Sex Assigned At Not on file [facility] Start: 09-19-2021 End: 02-08-2022 Exposure to SARS-CoV-2 (event) Not sure [facility] History of tobacco use Current smoker [facility] Work Phone: Start: 02-08-2022 Tobacco use and exposure Forme r smokeless tobacco user [facility] Work Phone: Start: 02-08-2022 Tobacco Comment Quit 1993 (cig x 5 years and pipe x 20 years) [facility] Start: 04-24-2022 End: 05-04-2022 Exposure to SARS-CoV-2 (event) Yes [facility] Start: 01-04-2023 End: 02-21-2024 Tobacco use and exposure Smokeless tobacco non-user [facility] Start: 08-16-2022 End: 10-12-2024 Social connection and isolation panel [facility] Work Phone: Are you now , , , , never or living with a partner? Never [facility] Work Phone: How often to you hav e a drink containing alcohol? 2-4 times a month [facility] Work Phone: How many standard dr inks containing alcohol do you have on a typical day? 1 or 2 [facility] Work Phone: How often do you hav e 6 or more drinks on 1 occasion? Never [facility] Work Phone: How hard is it for y ou to pay for the very basics like food, housing, medical care, and heating Not very hard [facility] Work Phone: Adult Depression Screening Assessment 0 [facility] [employer] Phone: Do you feel stress - tense, restless, nervous, or anxious, or unable to sleep at night because your mind is troubled all the time - these days [OSQ] Not at all [facility] Work Phone: Start: 06-21-2023 End: 06-28-2023 Tobacco smoking status NHIS Unknown if ever smoked [facility] Start: 1935 Sex Assigned At Male W [facility] Medical Equipment Procedure Code Equipment Code Equipment Origin al Text Equipment Identifier Dates Plate Lcp Stainl ess Steel [id number] Bone 7 Hole 1/3 Tubular Collar Small - [id number] Start: 06-23-2023 Screw Dcp 2.7mm Short Thread Stainless Steel 20mm Bone Self Tapping Small - [id number] Start: 06-23-2023 Screw Lc-Dcp Dcp 3.5mm 6mm Full Thread Stainless Steel 14mm Bone Self Tap - [id number] Start: 06-23-2023 Screw Lc-Dcp Dcp 3.5mm 6mm Full Thread Stainless Steel 16mm Bone Self - [id number] Start: 06-23-2023 Screw Lcp 3.5mm Full Thread Stainless Steel 12mm Bone Stardrive Recess Self - [id number] Start: 06-23-2023 Screw Lcp 3.5mm Stainless Steel 18mm Bone Locking Self Tapping T15 Star - [id number] Start: 06-23-2023 Goals Date Patient Goal Desired Activity /State Functional Status Date Assessment Result Facility 07-18-2023 Functional status Chair [facility] Work Phone: 07-17-2023 Functional status Standard Walker;Wheelchair [facility] Work Phone: 01-17-2015 Are you deaf, or do you have serious difficulty hearing No 01/17/2015 4:27 PM Melissa Crawford RN No [facility] 01-17-2015 Are you blind, or do you have serious difficulty seeing, even when wearing glasses No 01/17/2015 4:27 PM Melissa Crawford RN No [facility] 01-17-2015 Do you have serious difficulty walking or climbing stairs No 01/17/2015 4:27 PM Melissa Crawford RN No [facility] 01-17-2015 Do you have difficul ty dressing or bathing No 01/17/2015 4:27 PM Melissa Crawford RN No [facility] 01-17-2015 Because of a physica l, mental, or emotional condition, do you have difficulty doing errands alone such as visiting a physician's office or shopping No 01/17/2015 4:27 PM Melissa Crawford RN No [facility] Mental Status Date Assessment Result Facility 07-18-2023 Cognitive function Voice/Name [facility] Work Phone: 01-17-2015 Because of a physica l, mental, or emotional condition, do you have serious difficulty concentrating, remembering, or making decisions No 01/17/2015 4:27 PM Melissa Crawford RN No [facility] Clinical Notes 08-22-2007 to 12-09-2024 Telephone Encounter - Demetrio Gill MD - 12/09/2024 10:46 AM EDTTelephone Encounter - Demetrio Gill MD - 12/09/2024 10:46 AM EDTPatient InstructionsDemetrio Gill MD - 10/12/2024 10:33 AM EDT Note Date & Type Note Facility 12-09-2024 Telephone encounter Note Called his sister Gerri and discussed about the treatment plan. Will keep Cialis and Gemtesa for now and add Flomax to the treatment regimen. Discussed about Interstim and Botox. Family not interested. Demetrio Gill MD. Genitourinary Medicine and Men's Health Staff. [facility] Urological and Kidney [facility] 12-09-2024 Miscellaneous Notes Called his sister Gerri and discussed about the treatment plan. Will keep Cialis and Gemtesa for now and add Flomax to the treatment regimen. Discussed about Interstim and Botox. Family not interested. Demetrio Gill MD. Genitourinary Medicine and Men's Health Staff. [facility] documented in this encounter [facility] 11-30-2024 Radiology Diagnostic study note [facility] Imaging Services [address] [place] [address] Brain/Head without Contrast MR#: [id number] Acct: [id number] Name: DENIZ KUMAR Rep #: [id number] : [id number] M [id number] From: Annabel Conti MD PCP: Dr. Vadim Deras MD Status: R EG ER Study:Brain/Head without Contrast Date of Exa m: 11/30/24 Exam# [id number] Ordering Dr: Kelton Valdivia MD ADDENDUM by Dr. Richa Conti MD on 11/30/[address] Valdivia was notified by Richa Conti at 3:15pm EST on 11/30/24 Reading Location: [id number] 11/30/24 1533 Date cc: Dr. Kelton Valdivia [...] air cells may reflect mastoiditis. Reading Location: [facility] CC: Dr. Kelton Valdivia MD; Dr. Vadim Deras MD ~ Chief Revenue Officer: Signed [facility] 11-30-2024 Radiology Diagnostic study note [facility] Imaging Services [address] [place] [address] Spine Cervical without Contras MR#: [id number] Acct: [id number] Name: DENIZ KUMAR Rep #: [id number] : [id number] M [id number] From: Annabel Conti MD PCP: Dr. Vadim Deras MD Status: R EG ER Study:Spine Cervical without Contras Date of Exam: 11/30/24 Exam# [id number] Ordering Dr: Kelton Valdivia MD PROCEDURE: SPINE [...] Moderate to severe multilevel degenerative changes with [id number] multilevel foraminal stenosis due to facet hypertrophy [...] the cervical spine as above. Reading Location: [id number] CC: Dr. Kelton Valdivia MD; Dr. Vadim Deras MD ~ Chief Revenue Officer: Signed [facility] 10-12-2024 Instructions Demetrio Gill MD - 10/12/2024 [...] and B3 agonist. documented in this encounter [facility] 10-12-2024 Note HNO ID: [id number] Author: DEMETRIO GILL MD Service: ? Author Type: Physician Type: Progress Notes Filed: 10/12/2024 13:02 Note Text: [facility] MALE PATIENT - HISTORY [...] daily. (Patient not (more content not included)... [facility] 10-12-2024 History of Present illness Narrative [facility] MALE PATIENT - HISTORY [...] was discussed with the patient or authorized indirect sales representative. The patient or authorized indirect sales representative has agreed to proceed with the [...] Consultation requested by Dr. Bonifacio Ledbetter [address] [address] for an opinion regarding OAB and my final recommendations will be communicated back to the requesting physician by way of shared Medical record or letter via US mail. Demetrio Gill MD. Genitourinary Medicine and [facility]'s Health Staff. Formerly [facility], [facility] [place] [facility] PVR 0 documented in this encounter [facility] 10-12-2024 Note HNO ID: [id number] Author: MICHELLE REDD RN Service: ? Author Type: Registered Nurse Type: Progress Notes Filed: 10/12/2024 13:02 Note Text: PVR 0 [facility] 09-28-2024 Telephone encounter Note Updated chart and removed pcp Rachel Khalil MA [facility] 09-28-2024 Miscellaneous Notes Updated chart and removed pcp Rachel Khalil MA Sister Gerri is calling to report patient is now residing at [facility] and seeing their provider, Patient admitted to PSYCHIATRIC at the end of 2023 Gerri received a letter for a missed appointment and was not aware of that appt or she would have called to cancel. documented in this encounter [facility] 09-28-2024 Telephone encounter Note Sister Gerri is calling to report patient is now residing at [facility] and seeing their provider, Patient admitted to PSYCHIATRIC at the end of 2023 Gerri received a letter for a missed appointment and was not aware of that appt or she would have called to cancel. [facility] 09-17-2024 Telephone encounter Note In review of appointments, patient has been scheduled with Urology on 10/12/24. ADRIAN Hall [facility] 09-17-2024 Miscellaneous Notes In review of appointments, patient has been scheduled with Urology on 10/12/24. ADRIAN Hall 1st attempt lvm Please contact patients Gerri goff, at [phone] to assist with scheduling Consult for Urology. Thank you. ADRIAN Hall documented in this encounter [facility] 09-11-2024 Telephone encounter Note 1st attempt lvm [facility] 09-11-2024 Telephone encounter Note Please contact patients sister, Gerri Barnes, at [phone] to assist with scheduling Consult for Urology. Thank you. ADRIAN Hall [facility] 09-04-2024 Note HNO ID: [id number] Author: BONIFACIO LEDBETTER JR, MD Service: ? [...] Value 11/14/2023 0.6 (more content not included)... [facility] 09-04-2024 History of Present illness Narrative ESTABLISHED [...] (overactive bladder) Pure hypercholesterolemia SAH (subarachnoid hemorrhage) ([facility]) 07/16/2023 Subdural hematoma (HCC) 06/21/2023 Thrombocytopenia, unspecified [...] increase Sinemet 25/100mg to 1.5 tabs at [id number]. Will also add Sinemet CR 50/200 at [...] which included preparing to see the patient, [id number] patient care, completing clinical documentation, obtaining and/or reviewing separately obtained history, performing a medically appropriate examination, counseling and educating the patient/family/caregiver, ordering medications, tests, or procedures, and communicating results to the patient/family/caregiver. documented in this encounter [facility] 08-26-2024 Telephone encounter Note Provider Confirmation Form, Special Supplemental Benefits for the Chronically Ill (SSBCI) completed by Dr. Deras and faxed to [phone]. PCP marking - Meets the defined criteria. Rosetta Zamorano LPN [facility] 08-26-2024 Miscellaneous Notes Provider Confirmation Form, Special Supplemental Benefits for the Chronically Ill (SSBCI) completed by Dr. Deras and faxed to [phone]. PCP marking - Meets the defined criteria. Rosetta Zamorano LPN documented in this encounter [facility] 06-26-2024 Note HNO ID: [id number] Author: BONIFACIO LEDBETTER JR, MD Service: ? Author Type: Physician Type: Progress Notes Filed: 06/28/2024 10:33 Note Text: ESTABLISHED PATIENT VISIT CHIEF COMPLAINT: Follow Up HISTORY OF PRESENT ILLNESS: Deniz Kumar is a 89 year old male, There were no vitals taken for this visit. with a [facility] significant for and per last office visit [...] with limited history of what happened in [facility] and I do not have complete hospital records. Those records in [facility] reviewed. No mention of acute intracranial process or other acute finding on imaging. D/c to [facility]. Patient reporting bladder incontinence - [...] swelling RESPIRATORY: Negativ (more content not included)... [facility] 06-26-2024 History of Present illness Narrative ESTABLISHED [...] with limited history of what happened in [facility] and I do not have complete hospital records. Those records in [facility] reviewed. No mention of acute intracranial process or other acute finding on imaging. D/c to [facility]. Patient reporting bladder incontinence - [...] which included preparing to see the patient, [id number] patient care, completing clinical documentation, obtaining and/or reviewing separately obtained history, performing a medically appropriate examination, counseling and educating the patient/family/caregiver, ordering medications, tests, or procedures, independently interpreting results (not separately reported), and communicating results to the patient/family/caregiver. . documented in this encounter [facility] 06-26-2024 Note HNO ID: [id number] Author: ROSA STEINER LPN Service: ? Author Type: LICENSED NURSE Type: Progress Notes Filed: 06/28/2024 10:33 Note Text: [facility] 06-01-2024 Telephone encounter Note Rec'd records from [facility] pt was discharged from there to prison [facility] 05/30/24. [facility] 06-01-2024 Miscellaneous Notes Rec'd records from [facility] pt was discharged from there to prison [facility] 05/30/24. documented in this encounter [facility] 05-30-2024 Note [facility] Medical Records Department [address] [place] [address] Discharge Summary 05/30/24 1310 MR#: [id number] Acct: [id number] Name: DENIZ KUMAR Rep #: [id number] : 1935 88 From: Mirian Annabelle Farris DO PCP: Dr. Vadim Deras MD Status:DIS IN Location: [place] [address] Providers Date of Admission: 05/19/24 Date of Discharge: [...] who presented to the emergency department at [facility] on 05/15/2024 complaining of generalized weakness, back [...] by PT/OT while in the hospital and nursing home was recommended at discharge. He was discharged to the transitional care unit at [facility] on 05/19/2024 for strengthening/rehabilitation in hopes of getting him home. The SW was in touch with his sister who is his NCPOA) and a concern was voiced about him returning to his trailer to live by himself. apparently he has intermittent confusion and has been falling. Arrangements were made to transfer to a non-nursing home facilty following TCU admission and he reluctantly [...] blood cell count (more content not included)... [facility] 05-20-2024 Telephone encounter Note Spoke to Gerri, advised of message below. Verbalized understanding. Rosa Steiner LPN May 20, 2024 8:57 AM [facility] 05-20-2024 Miscellaneous Notes Spoke to marium Talley of message below. Verbalized understanding. Rosa Steiner LPN May 20, 2024 8:57 AM Defer to those providers following patient at the transitional care unit. Bonifacio Ledbetter MD Patient's sister Gerri Barnes calling and would like Dr. Ledbetter to know that patient had a recent fall and is now at [facility] Transitional Care Unit for therapy. Sister Gerri asking if Dr. Ledbetter would like to add any specific exercises to pt's regimen there? Please call Gerri with reply at [phone]. Leanne Tejada RN documented in this encounter [facility] 05-19-2024 Telephone encounter Note Defer to those providers following patient at the transitional care unit. Bonifacio Ledbetter MD [facility] 05-19-2024 Note [facility] Medical Records Department [address] [place] [address] History Physical Exam 05/19/241938 MR#: [id number] Acct: [id number] Name: DENIZ KUMAR Rep #: [id number] : 1935 88 From: Preston Camilo MD PCP: Dr. Vadim Deras MD Status:ADM IN Location: [facility] TCU03-1 HPI - General General Date of Admission: 05/19/24 Date of Service: 05/19/24 Chief Complaint: Here for rehabilitation. HPI Narrative DENIZ KUMAR, is a 88 Male who presents with followin05/15/2024 [facility] ED with weakness. Intermittent back pain, weakness, recent MRI showed spinal stenosis. Generalized weakness, difficulty ambulating. Drinks little 2/2 urinary incontinence, Bilateral foot numbness. CBCD okay, BMP okay, UA negative, Troponin 69. 05/15/2024 Admit [facility]. PT/OT for weakness. Elevated troponin 2/2 HTN. [...] rehabilitation, strengthening, prior to discharge home alone. [facility] Medical History (Updated 05/19/24 @ 19:44 by [...] Physical Exam Co (more content not included)... [facility] 05-19-2024 Telephone encounter Note Patient's sister Gerri Barnes calling and would like Dr. Ledbetter to know that patient had a recent fall and is now at [facility] Transitional [facility] Unit for therapy. Sister Gerri asking if Dr. Ledbetter would like to add any specific exercises to pt's regimen there? Please call Gerri with reply at [phone]. Leanne Tejada RN [facility] 05-19-2024 Note [facility] Medical Records Department [address] [place] [address] Discharge Summary 05/19/24 0953 MR#: [id number] Acct: [id number] Name: DENIZ KUMAR Rep #: [id number] : 1935 88 From: Kendall Dowling DO PCP: Dr. Vadim Deras MD Status:ADM ROSHNI Location: [place] [address] Providers Date of Admission: 05/15/24 Primary Care Physician: Dr. Vadim Deras MD Reason For Visit: ACUTE ON CHRONIC DEBILITY, ELEVATED TROPONINS Diagnosis Discharge Diagnosis (1) Debility: Status: Acute Code(s): R53.81 - Other malaise (2) Elevated troponin: Status: Acute Code(s): R79.89 - Other specified abnormal findings of blood chemistry Plan Acute on chronic debility * work up here unremarkable. * [facility] had an MRI of his cervical and lumbar spine on April 10 that that showed cervical spine degenerative changes most pronounced at C4-5 and C5-6. Lumbar spine degenerative changes most pronounced at L3-4 * PT OT evaluate and treat. elevated troponins; * Echo showed an EF of 55% * Through [facility], I did not see any previous troponins outside of [facility]. No additional workup at this time. Chronic [...] mg-5 mcg (200 (more content not included)... [facility] 04-27-2024 Telephone encounter Note Patient reports he had cancelled the tolterodine at the pharmacy, and since then has changed his mind, and would like to try it, for his BPH w/urgency of urination. Asking if pcp would resend this Rx to [facility]. Pended. [facility] 04-27-2024 Miscellaneous Notes Patient reports he had cancelled the tolterodine at the pharmacy, and since then has changed his mind, and would like to try it, for his BPH w/urgency of urination. Asking if pcp would resend this Rx to [facility]. Pended. documented in this encounter [facility] 04-13-2024 Telephone encounter Note TC to patient who verbalized understanding of providers message below. Patient agreeable to see Spine, please place consult. Patient also questioning if he needs to keep follow up appointment with Dr. Ledbetter on 06/26. 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 If ok, will place referral. These findings may be the cause of patient's symptoms. Bonifacio Ledbetter MD [facility] 04-10-2024 History of Present illness Narrative [...] PATIENT PRESENTS WITH AN IMPLANTABLE OR ATTACHED LOAN CONSULTANT: No RADIOLOGY DEPARTMENT: MR; Exam(s) Completed: Head: Routine Brain Spine: Cervical spine and Lumbar spine PERIPHERAL IV DATA: Not applicable SIGNED BY: RT Wilton(Taryn) April 10, 2024 8:29 AM documented in this encounter [facility] 04-10-2024 Note HNO ID: [id number] Author: MISTI NGUYEN RT(R) Service: ? Author [...] PATIENT PRESENTS WITH AN IMPLANTABLE OR ATTACHED LOAN CONSULTANT: No RADIOLOGY DEPARTMENT: MR; Exam(s) Completed: Head: Routine Brain Spine: Cervical spine and Lumbar spine PERIPHERAL IV DATA: Not applicable SIGNED BY: LILIAM Núñez) April 10, 2024 8:29 AM [facility] 04-02-2024 Note HNO ID: [id number] Author: ?, ?, ? Service: ? Author Type: ? Type: Progress Notes Filed: 04/02/2024 10:45 Note Text: Deniz Kumar is identified through a medication adherence outreach initiative based on pharmacy claims data from [employer] (insurer) for SANGITA medication(s). Patient is reviewed [...] refill per call to patient/caregiver Alexandr Griffin [facility] 04-02-2024 History of Present illness Narrative Deniz Kumar is identified through a medication adherence outreach initiative based on pharmacy claims data from [employer] (insurer) for SANGITA medication(s). Patient is reviewed [...] patient/caregiver Alexandr Griffin documented in this encounter [facility] 04-02-2024 Note Patient Outreach ( PO) DENIZ KUMAR ([id number]) 1935 M Date Time Provider Department 04/02/24 VADIM DERAS During your visit today, we recorded the following information about you: Alexandr Griffin 04/02/2024 10:45 AM Signed Deniz Echavarria Stacy is identified through a medication adherence outreach initiative based on pharmacy claims data from [employer] (insurer) for SANGITA medication(s). Patient is reviewed [...] As of Date: 04/02/2024 Noted Allergy Reaction SVYSAUM-OVA-INM REDUCTASE INHIBIT*08/23/2023 17 - Myalgia Comments: Weakess, [...] Encounter Status:Closed by ALEXANDR GRIFFIN on 04/02/24 [facility] 03-13-2024 Note HNO ID: [id number] Author: BONIFACIO LEDBETTER JR, MD Service: ? [...] (U/L) Date Value 11/14/2023 13 URINALYSIS Specific [place], Ur Date Value Ref Range Status 02/15/2023 1.021 1.005 - 1.030 Final Glucose, Urine Date Value Ref Range Status 02/15/2023 Negative Trace, Negative Final Bilirubin, Urine Date Value Ref Range Status 02/15/2023 Negative Negative (more content not included)... [facility] 03-13-2024 History of Present illness Narrative NEW [...] (U/L) Date Value 11/14/2023 13 URINALYSIS Specific [place], Ur Date Value Ref Range Status 02/15/2023 [...] 4 - Moderate documented in this encounter [facility] 02-26-2024 Telephone encounter Note Noted. [facility] 02-26-2024 Miscellaneous Notes Noted. Pt calls to report that insurance will not cover tolterodine 1 mg tab so he will not be taking medication. Melanie Nyalor LPN documented in this encounter [facility] 02-25-2024 Telephone encounter Note Pt calls to report that insurance will not cover tolterodine 1 mg tab so he will not be taking medication. Melanie Naylor LPN [facility] 02-21-2024 Note HNO ID: [id number] Author: VADIM DERAS MD Service: ? Author Type: Physician Type: Progress Notes Filed: 02/21/2024 11:07 Note Text: This note was created using eTecriter. Subjective Deniz Kumar is a 88 year old male. He was doing home exercises and working out at for leg strengthening. He complained of ongoing edema, and nocturia. Oxybutynin was no longer effective. 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 Review of Systems Constitutional: Negative [...] Fracture of Left Ankle Sah (Subarachnoid Hemorrhage) ([facility]) History of Tia (Transient Ischemic Attack) Gait [...] Mental Status: He is alert. Latest Ref Rn 02/14/2024 WBC 3.70 - 11.00 k/uL 3.74 [...] OXYBUTYNIN. - TOLTERODINE (more content not included)... [facility] 02-21-2024 History of Present illness Narrative This note was created using virocyt. Subjective Deniz Kumar is a 88 year old male. He was doing home exercises and working out at for leg strengthening. He complained of ongoing edema, and nocturia. Oxybutynin was no longer effective. 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 Review of Systems Constitutional: Negative [...] Mental Status: He is alert. Latest Ref [facility] 02/14/2024 WBC 3.70 - 11.00 k/uL [...] Get at pharmacy. documented in this encounter [facility] 02-21-2024 Note HNO ID: [id number] Author: VADIM DERAS MD Service: ? Author [...] - Vaccine recommendations reviewed. Get at pharmacy. [facility] 02-21-2024 Nurse Note VISUAL ACUITY: Today's exam: Vision Correction? Glasses: RIGHT EYE: 20/unable due to previous eye injury LEFT EYE: 20/30 BOTH EYES: 20/25 [facility] 02-21-2024 Nurse Note VISUAL ACUITY: Today's exam: Vision Correction? Glasses: RIGHT EYE: 20/unable due to previous eye injury LEFT EYE: 20/30 BOTH EYES: 20/25 documented in this encounter [facility] 02-13-2024 Telephone encounter Note PATIENT NOTIFIED OF INFORMATION [facility] 02-13-2024 Miscellaneous Notes PATIENT NOTIFIED OF INFORMATION Orders placed. Patient called in again to see if any orders have been placed. Patient came in expecting labs for Braeden appointment on 02/21/24. No labs were placed. Please adivise and call patient if labs are placed. UMER Mauricio documented in this encounter [facility] 02-13-2024 Telephone encounter Note Orders placed. [facility] 02-13-2024 Telephone encounter Note Patient called in again to see if any orders have been placed. [facility] 02-13-2024 Telephone encounter Note Patient came in expecting labs for Braeden appointment on 02/21/24. No labs were placed. Please adivise and call patient if labs are placed. UMER Mauricio [facility] 01-30-2024 Telephone encounter Note The patient [...] Orellana LPN January 30, 2024 11:11 AM [facility] 01-30-2024 Miscellaneous Notes The patient has [...] 2024 11:11 AM documented in this encounter [facility] 11-21-2023 Note HNO ID: [id number] Author: VADIM DERAS MD Service: ? Author Type: Physician Type: Progress Notes Filed: 11/21/2023 13:00 Note Text: This note was created using virocyt. Subjective Deniz Kumar is a 88 year [...] 10 MG TABLET,EXTENDED RELEASE 24 HR Vadim eDras MD [facility] 11-21-2023 History of Present illness Narrative This note was created using virocyt. Subjective Deniz Kumar is a 88 year [...] is alert. Gait: Gait normal. Latest Ref [facility] 11/14/2023 Protein, Total 6.3 - 8.0 g/dL [...] Vadim Deras MD documented in this encounter [facility] 10-14-2023 History of Present illness Narrative This note was created using eTecriter. Subjective Patient presents with: Weakness Deniz Kumar is a 88 year old male who continued to have issues with leg weakness and unsteadiness in gait, since he was admitted for fall, head injury, SAH, SDH, and left ankle fracture. He felt he had muscle weakness from statin medication, so we did not resume statin, even as he was getting statin in the prison. He had rehab in the hospital, then in the prison. He was concerned about other issues like [...] NON-[facility] FACILITY. Physical therapy outpatient. He preferred [facility]. 2. Leg weakness, bilateral - ICD9: [...] Vadim Deras MD documented in this encounter [facility] 09-09-2023 Miscellaneous Notes Patient has been [...] Patient insurance changed now has to use [facility] pharmacy. Please advise. Thank you. Cary Andre LPN. documented in this encounter [facility] 08-23-2023 History of Present illness Narrative This note was created using eTecriter. Subjective Deniz Kumar is a 88 year old male. He was discharged from PSYCHIATRIC after rehab for left ankle fracture. This was in the setting of a fall, head injury, IC hemorrhage. He felt strongly he developed muscle aches and weakness from pravastatin. Curiously, he was getting atorvastatin in the prison. His medications were changed, but he went back to his previous medications from [facility] pravastatin. Review of Systems Constitutional: Positive for [...] of Left Ankle Sah (Subarachnoid Hemorrhage) ([facility]) Social History Tobacco Use Smoking status: Former [...] Vadim Deras MD documented in this encounter [facility] 08-15-2023 Miscellaneous Notes I called Ann-Marie @ [facility] back and gave her the verbal ok per Dr. Valdez to continue home PT. There was no answer. But I left the order on her secure VM. [place] Joyner August 15, 2023 3:19 PM documented in this encounter [facility] 08-13-2023 Miscellaneous Notes Ann-Marie notified of response from provider. Nicole Orellana LPN I can follow. Ann-Marie from [facility] calling patient discharged from PSYCHIATRIC on 08/09/2023 had left ankle fracture and subdural hematoma from fall. Dr Valdez, Aguila is helping with ankle, asking if PCP would follow and sign orders? Please advise documented in this encounter [facility] 08-06-2023 Note HNO ID: [id number] Author: BONIFACIO VALDEZ MD Service: ? Author [...] him to contact the office. Questions answered. [facility] 08-06-2023 History of Present illness Narrative Subjective: [...] office. Questions answered. documented in this encounter [facility] 08-02-2023 Note HNO ID: [id number] Author: NICOLÁS JUNIOR MD Service: ? Author Type: Physician Type: Progress Notes Filed: 08/02/2023 14:04 Note Text: NEUROSURGERY FOLLOW UP OFFICE NOTE Dr. Nicolás Junior MD, FACS Date of visit: August Patient Name: Mr.Peter Jericho Kumar Date of : 1935 Current Age: [age] year old Sex: male MRN/E# [id number] Last Office Visit: 07/16/2023 CHIEF COMPLAINT: Patient presents with: Established Patient SUBJECTIVE: The patient presents as a follow-up with imaging (CT B) for evaluation. This is an 88-year-old male with a PMHx TIA, HTN, hypercholesterolemia, thrombocytopenia who was seen for consult at [facility] on 06/21/2023 after a fall while [...] he was a resident in rehab in [place] and hoped to be discharged to a [...] for discharge. Respirat (more content not included)... [facility] 08-02-2023 History of Present illness Narrative Radiology [...] PATIENT PRESENTS WITH AN IMPLANTABLE OR ATTACHED LOAN CONSULTANT: No RADIOLOGY DEPARTMENT: CT; Exam(s) Completed: Brain PERIPHERAL IV DATA: Not applicable SIGNED BY: LILIAM Roberson) August 02, 2023 1:04 PM documented in this encounter [facility] 08-02-2023 Note HNO ID: [id number] Author: MAIRA ALEXANDER RT (R) Service: Radiology Author Type: Technologist Type: Progress [...] PATIENT PRESENTS WITH AN IMPLANTABLE OR ATTACHED LOAN CONSULTANT: No RADIOLOGY DEPARTMENT: CT; Exam(s) Completed: Brain PERIPHERAL IV DATA: Not applicable SIGNED BY: LILIAM Roberson) August 02, 2023 1:04 PM [facility] 07-16-2023 Discharge summary Note Date/Time July 16, 2023 8:10pm [facility] Medical Records Department [address] [place] [address] Discharge Summary 07/16/232007 MR#: [id number] Acct: [id number] Name: DENIZ KUMAR Rep #:[id number] : 1935 88 From: Preston Camilo MD PCP: Dr. Vadim eDras MD Status:A DM IN Location: [place] [id number] [facility] Date of Admission: 06/27/23 Primary Care Physician: [...] strengthening, prior to disposition determination. Discharge 07/18/2023, [facility], intermediate, part B therapies. Physical Exam [...] and Uncontrolled pain Additional Instructions: Discharge 07/18/2023, [facility], intermediate, part B therapies. Please Follow Up With: Bonifacio Valdez MD When: As scheduled. Meaningful Use Info Meaningful Use Diagnoses (Choose all that apply): None applicable Discharge Plan Admission Admit Date/Time: 06/27/23 18:19 Primary Reason for Your Visit: Debility. Attending Provider: Mirian Farris Primary Care Provider: Vadim Deras Instructions Additional Instructions / Restrictions: Discharge 07/18/2023, [facility], intermediate, part B therapies. Discharge Orders/Prescriptions [...] Camilo MD; Dr. Vadim Deras MD~ Signed [facility] Work Phone: 1(146) 521-402401-16-2024 Discharge summary Author Preston Camilo [facility] July 16, 2023 8:17pm Note Date/Time July 16, 2023 8 :17pm [facility] Medical Records Department [address] [place] [address] Transfer to [facility] MR#: [id number] Acct: [id number] Name: DENIZ KUMAR Rep #:[id number] : 1935 88 From: Preston Camilo MD PCP: Dr. Vadim Deras MD Status:A DM IN Certification of patient admission REQUIRED AT TIME OF ADMISSION. I CERTIFY THAT POST-HOSPITAL ECF SERVICES ARE REQUIRED TO BE GIVEN ON AN IN-PATIENT BASIS BECAUSE OF THE ABOVE NAMED PATIENT'S NEED FOR CUSTODIAL CARE ON A CONTINUING BASIS FOR THE CONDITION(S) FOR WHICH HE/SHE WAS RECEIVING IN-PATIENT HOSPITAL SERVICES PRIOR TO HIS/HER TRANSFER TO THE ECF. 07/16/232016<Electronically signed by Preston Camilo MD> Diet [...] Instructions Additional Instructions / Restrictions: Discharge 07/18/2023, [facility], intermediate, part B therapies. Discharge Orders/Prescriptions [...] applicable): CC: Dr. Vadim Deras MD ~ [facility] Work Phone: [phone]) 327-102301-16-2024 NoteHNO ID: [id number] Author: NICOLÁS JUNIOR MD Service: ? Author Type: Physician Type: Progress Notes Filed: 07/16/2023 11:16 Note Text: NEUROSURGERY FOLLOW UP OFFICE NOTE Dr. Nicolás Junior MD, FACS Date of visit: July 16, 2023 Patient Name: Mr.Peter Jericho Kumar Date of : 1935 Current Age: [age] year old Sex: male MRN/E# [id number] Last Office Visit: Hospital follow-up CHIEF COMPLAINT: Patient presents with: Established Patient SUBJECTIVE: The patient presents as a hospital follow-up with imaging (CT B) for evaluation. This is an 88-year-old male with a PMHx TIA, HTN, hypercholesterolemia, thrombocytopenia who was seen for consult at [facility] on 06/21/2023 after a fall while [...] well. He is currently in rehab in [place] and hopes to be discharged to a [...] Negative for dizziness, seizure (more content not included)...[facility]01-16-2024 NoteHNO ID: [id number] Author: MAIRA ALEXANDER RT(R) Service: Radiology Author [...] BY: RT Karol(R) July 16, 2023 10:14 [facility]01-09-2024 NoteHNO ID: [id number] Author: BONIFACIO VALDEZ MD Service: ? Author [...] encounter, he will contact the office. Questions answered.[facility]12-29-2023 History and physical note Author Mirian Farris [facility] June 28, 2023 5:06pm Note Date/Time June 28, 2023 12:04pm [facility] Medical Records Department [address] [place] [address] History & Physical Exam 06/28/23 1159 MR#: [id number] Acct: [id number] Name: DENIZ KUMAR Rep #:[id number] : 1935 88 From: Mirian Annabelle Kaleigh DO PCP: Dr. Vadim Deras MD Status:A DM IN Location: [address] Date of Admission: 06/27/23 Date of Service: [...] and a SDH. He was transferred to [facility] because of the head bleed. He had [...] more exercise so he started walking at [facility]. He has fallen twice sincestarting this.....usually at the end of his walk. He tells me that his legs just gave out. He non longer wants to take Pravastatin. He required no surgical intervention at [facility]. He was placed on Keppra for 1 week for seizure prophylaxis. He had an open reduction internal fixation of a left bimalleolar ankle fracture on 06/23/[address] Jiménez. the post operative course was unremarkable. Therapy recommended nursing home [facility] for strengthening and gait training and on 06/27/23 he was transferred to the[facility] at [facility]. Hen is NWB on the LLE and has a walking boot on the LLE. Significant lab at [facility] included mild thrombocytopenia of undeterminedetiology. PFSH Medical History (Updated 06/28/23 @ 16:56 by [...] % (Auto) 49.8, Lymph % (Auto) 27.6, Ector % (Auto) 19.7 H, Eos % (Auto) [...] us and the aspirin was stopped at [facility] for surgery and because of thrombocytopenia. Follow [...] med list. Charges/Coding Visit Charges Inpatient E&M: 31533 SNF Init L2 06/28/23 1706 <Electronically signed by Mirian Farris DO> Cosigner Signature (if applicable): CC: Dr. Mirian Farris DO; Dr. Vadim Deras MD~ Signed [facility] Work Phone: 1(225) 585-663712-29-2023 Progress note Author Demetria Chamberlain [facility] June 28, 2023 11:12am Note Date/Time June 28, 2023 10:51am [facility] Medical Records Department [address] [place] [address] Progress Note - Pharmacy 06/28/23 1047 MR#: [id number] Acct: [id number] Name: DENIZ KUMAR Rep #:[id number] : 1935 88 From: Demetria Chamberlain PCP: Dr. Vadim Deras MD Status:A DM IN Location: [place] [address] TCU RX Drug Regimen Review Subjective/Objective Subjective/Objective: Subjective: 88 YOM admitted to TCU on 06/27/23 s/p hospitalization from an outside facility. The patient presented to [facility] ED on 06/21/23 secondary to a fall [...] 3 Mg Tablet PO 3 mg QHS [facility] Administration Multivitamins 1 tablet 06/28/23 08:00 06/28/23 08:29 Multivitamins,Therapeutic Tablet PO 1 tablet BREAKFAST [facility] Administration Pravastatin Sodium 20 mg 06/27/23 22:00 06/27/23 22:03 Pravastatin 20 Mg Tablet PO Not Given QHS [facility] Senna 2 tablet 06/27/23 22:00 06/27/23 22:05 Senna Tablet PO 2 tablet QHS [facility] Administration Sodium Chloride 10 - 40 ml [...] Cosigner Signature (if applicable): CC: ~ Signed [facility] Work Phone: [phone]) 811-584712-28-2023 NoteHNO ID: [id number] Author: Sultana Nolasco RN Service: Care Management Author Type: Registered Nurse Type: Care Mgt Progress Note Filed: 06/27/2023 3:12 PM Note Text: CARE MANAGEMENT DISCHARGE NOTE SERVICE DATE: June 27, 2023 SERVICE TIME: 3:10 PM Admission Date: 06/21/2023 LOS: 6 days Discharge Arrangement Discharge Arrangement: Intermediate Facility Was an expedited discharge program used?: Yes Type: [employer] Arranged Provider Name: [facility] SNF Caregiver Assessment Caregiver is ready, willing and able to meet the patient's needs as recommended by the inter-professional team: Yes Name of Caregiver: Staff at SNF Transportation Arrangements Transportation Arrangements: Ambulance Transportation Agency and Phone #:: [facility] ( [facility] ) [phone] / [phone] Date of Trip: 06/27/23 Time of Trip: 1700 Type of Service: BLS Non-emergency Is Patient Medicaid Pending?: No Was transportation financial coverage discussed with family?: Family Life Underwriter Location: [facility] Destination: [facility] Financial Care Management Responsibility: None Handoff Communication: Additional Information: Pt is D/C today to SNF in [place]. Will transport at 5 pm by cot transport with [employer]. D/C paperwork sent electronically. RN will call nurse to nurse report. Pt is aware of D/C plans and stated he would call his family. SIGNATURE: Sultana Nolasco RN PATIENT NAME: Deniz Kumar DATE: June 27, 2023 TIME: 3:10 PM CONTACT #: [phone] Note HNO ID: [id number] Author: Joellen Ramirez Service: Care Management Author Type: ? Type: Care Mgt Progress Note Filed: 06/27/2023 1:23 PM Note Text: [facility] PRECERT NOTE [employer] MEDICARE PPO approved Intermediate Facility for [facility] . Precert approved through 07/02/2023. For any additional questions regarding approvals, transport or care management needs, please contact the CM assigned to this patient in the Treatment Team. SIGNATURE: Joellen Dominguez DATE: June 27, 2023 TIME: 1:22 [facility]12-28-2023 NoteHNO ID: [id number] Author: Sultana Nolasco RN Service: Care Management [...] 27, 2023 TIME: 3:07 PM PAGER/CONTACT #: [phone] [place] [address] 06-27-2023 NoteHNO ID: [id number] Author: Liz Naylor APRN.CNP Service: General Surgery [...] vulnerability screens were reviewed by Liz Naylor APRN.WHARF TENDER HELPER and results were communicated to surgeon/surgical team who devised the above plan. The plan was communicated to the patient and family/caregivers: Via nursing dc instructions Patient/Caregivers were given educational material on delirium, falls, and mobility. Patient's primary doctor: Vadim Deras MD This plan was communicated to the patient's primary doctor: Through Electronic Health Record (EHR) messaging Disposition: [facility] NoteHNO ID: [id number] Author: Sultana Nolasco RN Service: Care Management Author Type: Registered Nurse Type: Care Mgt Progress Note Filed: 06/27/2023 9:09 AM Note Text: CARE MANAGEMENT PROGRESS NOTE SERVICE DATE: 06/27/2023 SERVICE TIME: 9:07 AM LOS: 6 days Requested 7000 be completed [facility]. . Pt will need cot transport d/t NWB status of LLE - POD#4 SIGNATURE: Sultana Nolasco RN PATIENT NAME: Deniz Kumar DATE: June 27, 2023 TIME: 9:06 AM PAGER/CONTACT #: [phone] 06-27-2023 NoteHNO ID: [id number] Author: Sultana Nolasco RN Service: Care Management Author Type: Registered Nurse Type: Care Mgt Progress Note Filed: 06/27/2023 8:59 AM Note Text: Attestation signed by Kade Garrett MD at 06/27/2023 9:00 AM SIGNATURE: Kade Garrett MD PATIENT NAME: Deniz Kumar DATE: June 27, 2023 TIME: 9:00 AM Pager: [phone] CARE MANAGEMENT PROGRESS NOTE SERVICE DATE: 06/27/2023 [...] 27, 2023 TIME: 8:58 AM PAGER/CONTACT #: [phone] 06-27-2023 NoteHNO ID: [id number] Author: Bonifacio William PA-C Service: General Surgery Author Type: Physician Mold Closer Type: Progress Notes Filed: 06/27/2023 8:04 AM Note Text: Trauma Surgery Progress Note SERVICE DATE: 06/27/2023 Trauma Service Pager: For questions or concerns Mon-Fri 6a-5p please page [phone]. After 5pm and on Weekends and Holidays, please page [phone] if in ICU or [phone] if on RNF. SUBJECTIVE: Patient was awake [...] kg/m? O2 Therapy: Room Air IANDO: Date 06/26/23 07 - 06/27/23 0659 06/27/23 07 - 06/28/23 0659 Shift 7849-9747 8923-6387 0160-1481 24 Hour Total 0181-6563 4926-4325 7262-8170 24 Hour Total INTAKE PO 240 320 [...] were copied from prior (more content not included)...[facility]12-27-2023 NoteHNO ID: [id number] Author: Sultana Nolasco RN Service: Care Management Author Type: Registered Nurse Type: Care Mgt Progress Note Filed: 06/26/2023 3:02 PM Note Text: CARE MANAGEMENT PROGRESS NOTE SERVICE DATE: 06/26/2023 SERVICE TIME: 2:57 PM LOS: 5 days Per pt and sister, Gerri, SNF referrals placed to [facility] TCU and [facility] in [place], yesterday afternoon Today, [facility] has accepted for skilled care. They are FOC. TC to PT/ OT and they are to do re-evals for obtaining auth. CM following. SIGNATURE: Sultana Nolasco RN PATIENT NAME: Deniz Kumar DATE: June 26, 2023 TIME: 2:57 PM PAGER/CONTACT #: [phone] 06-26-2023 NoteHNO ID: [id number] Author: Michelle Andino APRN.CNP Service: General Surgery [...] Therapy: Room Air IANDO: Date 06/25/23699 - 06/26/2365806/26/23699 - 06/27/23 0659 Shift 6001-4108 8631-6487 8548-2317 24 Hour Total 7901-7047 4800-0662 7337-0805 24 Hour Total INTAKE PO 320 320 [...] medically stable for disc (more content not included)...[facility] 06-25-2023 NoteHNO ID: [id number] Author: Sultana Nolasco RN Service: Care Management [...] by: Per Department Practice Potential Transition Plans Intermediate Facility/Intermediate Care Facility Advance Directives Current Advance Directive: Health Care Power of Conservation Agent In Chart: Yes Up To Date and Valid: Yes Current Living Arrangements and Support Lives with: Alone Type of Residence: Private Residence (House) Support: Family members How do you manage to accomplish the following: Independent: Ambulation;Bathe/Shower;Dress;Meals/Meal Prep;Going to the bathroom;Medication Management;Transportation to appointments/community Current Services/Equipment Current Post-Acute Service(s): None Discharge Planning Patient Goal(s): Be able to go home, General wellness, Increase strength [place] of Choice Explained: [place] of Choice Given: Yes Level of Care Discussed: Intermediate Facility Are you interested in bedside delivery [...] 25, 2023 TIME: 3:26 PM CONTACT #: [phone]12-26-2023 Note HNO ID: [id number] Author: Leah Mcgraw APRN.CNP Service: General Surgery Author Type: Nurse Practitioner Type: Progress Notes Filed: 06/25/2023 8:06 AM Note Text: Trauma Surgery Progress Note SERVICE DATE: 06/25/2023 Trauma Service Pager: For questions or concerns Mon-Fri 6a-5p please page [phone]. After 5pm and on Weekends and Holidays, please page [phone] if in ICU or [phone] if on RNF. SUBJECTIVE: NAEON. Patient reports pain is controlled. He is asking when he can be discharged to SNF - discussed that lawn caretaker will see him today and begin process, [...] 0659 06/25/23 0700 - 06/26/23 0659 Shift 5804-8471 3103-7133 3555-0040 24 Hour Total 4201-1169 8567-6467 9379-5052 24 Hour Total INTAKE Shift Total OUTPUT [...] June 25, 2023. SIGNAT (more content not included)...[facility]12-26-2023 Note HNO ID: [id number] Author: Uche Vasquez MD Service: Orthopaedic Surgery [...] - PGY 3 6:51 AM 06/25/2023 Pager #[phone] INPATIENT ATTENDING: Dr. Valdez, Bonifacio Brice MD, Urgent High-Risk Geriatric Patient Vulnerabilities: Age >85 and Impaired Mobility Diet: DIET REGULAR Code Status: Full Code Recommendations: Cognition: No Cognitive Impairment bCAM Score (Calc): Negative Delirium Screen Confusion Assessment Method (CAM - ICU Score): Negative Geriatric Consult (Age over 85 or impaired cognition):Consult to Math Interventionist Palliative Care/Hospice: Consult not required Rehab/Therapy: PT/OT Recommendations: PT: Recommended Discharge Disposition: Subacute/SNF OT: Recommended Discharge Disposition: Subacute/SNF Swallow: Swallow Screening Result - Step 2: PASSED Swallow Screen - Patient Able To Swallow 3 Ounce Cup of Water Without Exhibiting Signs Of Aspiration Speech Recommendations: Speech: Speech Diet: Nutrition: Consult not required Nutrition Recommendations: MST: Total MST Score (Calculated): 0 Childhood Teacher: Pharmacy: Consult not needed Social Work: NA Anticipated Discharge [facility]position[facility]23 NoteHNO ID: [id number] Author: Romeo Sanchez PA-C Service: General Surgery Author Type: Physician Mold Closer Type: Progress Notes Filed: 06/24/2023 8:41 AM [...] Therapy: Room Air IANDO: Date 06/23/23699 - 06/24/2365806/24/23699 - 06/25/23 0659 Shift 2461-7662 1194-3285 4466-9365 24 Hour Total 8779-1744 4468-7788 3301-8803 24 Hour Total INTAKE IV 700 100 [...] Ortho PT/OT Dispo Planning: (more content not included)...[facility]12-25-2023 NoteHNO ID: [id number] Author: Bonifacio Valdez MD Service: Orthopaedic Surgery [...] - PGY 3 5:53 AM 06/24/2023 Pager #[phone] INPATIENT ATTENDING: Bonifacio Chaudhari MD, Urgent High-Risk Geriatric Patient Vulnerabilities: Age >85 and Impaired Mobility Diet: DIET REGULAR Code Status: Full Code Recommendations: Cognition: No Cognitive Impairment bCAM Score (Calc): Negative Delirium Screen Confusion Assessment Method (CAM - ICU Score): Negative Geriatric Consult (Age over 85 or impaired cognition):Consult to Math Interventionist Palliative Care/Hospice: Consult not required Rehab/Therapy: PT/OT Recommendations: PT: OT: Swallow: Swallow Screening Result - Step 2: PASSED Swallow Screen - Patient Able To Swallow 3 Ounce Cup of Water Without Exhibiting Signs Of Aspiration Speech Recommendations: Speech: Speech Diet: Nutrition: Consult not required Nutrition Recommendations: MST: Total MST Score (Calculated): 0 Childhood Teacher: Pharmacy: Consult not needed Social Work: NA Anticipated Discharge Disposition: Home with Self Care Attending Note I personally saw and examined the patient. I reviewed the resident's note. I agree with the resident's assessment and plan unless otherwise noted. Signature: Bonifacio Valdez MD Date: 06/24/2023 Time: 10:11 [facility]12-24-2023 NoteHNO ID: [id number] Author: Romeo Sanchez PA-C Service: General Surgery Author Type: Physician Mold Closer Type: Progress Notes Filed: 06/23/2023 12:10 PM Note Text: Trauma Surgery Progress Note SERVICE DATE: 06/23/2023 Trauma Service Pager: For questions or concerns Mon-Fri 6a-5p please page [phone]. After 5pm and on Weekends and Holidays, please page [phone] if in ICU or [phone] if on [...] Cannula IANDO: Date 06/22/23699 - 06/23/23 0659 06/23/23 07 - 06/24/23 0659 Shift 9793-1923 0985-5845 3415-5538 24 Hour Total 9512-4895 0063-3392 5688-8185 24 Hour Total INTAKE PO 450 240 200 890 PO 450 240 200 890 IV 246 246 700 700 Volume (mL) (ceFAZolin iv piggyback 2 g in D5W (iso-osmotic) 100 mL (ANCEF)) 100 100 Volume (mL) (lactated ringers iv infusion) 246 246 Volume (mL) (lactated ringers iv infusion) 600 600 Shift Total 696 421 671 2473 700 700 OUTPUT Urine 150 250 400 [...] INPATIENT ATTENDING: Dr. Flores (more content not included)...[facility]12-24-2023 NoteHNO ID: [id number] Author: Sailaja Cao APRN.SEALER OPERATOR Service: ? Author Type: Nurse Fire Prevention Bureau Captain Type: Anesthesia Procedure Notes Filed: 06/23/2023 8:30 AM Note Text: ANESTHESIOLOGY PROCEDURE NOTE Airway General Information Procedure Start Time/Medication Administration: 06/23/2023 8:04 AM Patient location during procedure: OR Timeout Performed Pre-procedure: timeout performed Consent Obtained: Yes Patient identity confirmed: arm band, care prepared foods team leader and patient Staffing Anesthesiologist: Renaldo Mccurdy MD SEALER OPERATOR: Sailaja Cao APRN.SEALER OPERATOR Performed by: KYLIE Indications and Patient Condition Indications for airway management: anesthesia Preoxygenated: yes anesthesia circuit Patient position: sniffing Method: asleep Final Airway Details Final airway type: supraglottic airway Number of attempts at approach: 1 Final Supraglottic Airway: i-gel Size 5 Seal Adequate: yes Failed airway: no Unrecognized esophageal intubation: no Airway not difficult SIGNATURE: Sailaja Cao APRN.SEALER OPERATOR PATIENT NAME: Deniz Kumar DATE: June 23, 2023 TIME: 8:29 AM CSN: [id number]12-24-2023 NoteHNO ID: [id number] Author: Uche Vasquez MD Service: Orthopaedic Surgery [...] - PGY 3 6:10 AM 06/23/2023 Pager #[phone] INPATIENT ATTENDING: Bonifacio Chaudhari MD, Urgent High-Risk Geriatric Patient Vulnerabilities: Age >85 and Impaired Mobility Diet: DIET NPO Code Status: Full Code Recommendations: Cognition: No Cognitive Impairment bCAM Score (Calc): Negative Delirium Screen Confusion Assessment Method (CAM - ICU Score): Negative Geriatric Consult (Age over 85 or impaired cognition):Consult to Math Interventionist Palliative Care/Hospice: Consult not required Rehab/Therapy: PT/OT Recommendations: PT: OT: Swallow: Swallow Screening Result - Step 2: PASSED Swallow Screen - Patient Able To Swallow 3 Ounce Cup of Water Without Exhibiting Signs Of Aspiration Speech Recommendations: Speech: Speech Diet: Nutrition: Consult not required Nutrition Recommendations: MST: Total MST Score (Calculated): 0 Childhood Teacher: Pharmacy: Consult not needed Social Work: NA Anticipated Discharge Disposition: [facility]12-23-2023 NoteHNO ID: [id number] Author: Jon Almaraz MD Service: Orthopaedic Surgery [...] Jon Almaraz MD Orthopaedic Surgery 06/22/2023 5:19 [facility]12-23-2023 NoteHNO ID: [id number] Author: Sina ([employer])Bonifacio Service: ? Author Type: Retort Setter Type: Plan of Care Filed: 06/22/2023 4:02 PM Note Text: PHARMACY MEDICATION REVIEW Patient Name: Deniz Kumar : 1935 The following medications were updated within the SEWER LINE REPAIRER medication list: Medications ADDED to SEWER LINE REPAIRER medication list Medications CHANGED on SEWER LINE REPAIRER medication list Lactobacillus acidophilus (PROBIOTIC) 10 billion cell cap Patient Yes Yes Sig: Take 1 capsule by mouth. Pt. states he takes occasionally but not daily Melatonin 5 mg cap OTHER Yes Yes Sig: Take 5 mg by mouth daily at bedtime. Pt. states he takes 3mg at bedtime. Medications REMOVED from SEWER LINE REPAIRER medication list Additional comments: I was able to talk with pt. about his home medications. The pt. verified he takes the 8 medications on the SEWER LINE REPAIRER list. I have not added or removed any medications from the SEWER LINE REPAIRER list but I did note a change in how the pt. reports he takes 1 medication. He also told me he uses [facility] pharmacy for assisted medications and [facility] for short term medications. Required follow up actions for nursing: Medication history completed by Historian. No nursing follow up required. The below information represents the best possible medication history: Yes Medication history completed by: Retort Setter: Bonifacio Andino ([employer]) Source of history: Patient: Reliability of source: Appears reliable, clearly identified: Medication name, Medication dose, Medication route, and Medication frequency and Pharmacy records: Epic e-script Medication nonadherence identified: No barriers noted Reconciliation completed: No, pharmacist not yet reviewed Patient interested in Bedside Delivery Services or using OP Pharmacy at discharge? Unable to assess Preferred outpatient pharmacy: e- [facility] [place] [address] [address] [facility] - [phone] e- [facility] [address] [place] [address] [address] [facility] [phone] e- [id number] [place] [phone] - [address] [facility] [phone] Allergies: Clearasil Maximum S* Swelling Prior to [...] at bedtime Facility-Administered Medications: None Bonifacio Andino ([employer]) phone [phone] 06/[facility]/2023[facility]12[facility] NoteHNO ID: [id number] Author: Lynda Holman PA-C Service: Neurosurgery Author Type: Physician Mold Closer Type: Plan of Care Filed: 06/22/2023 9:42 AM Note Text: Neurosurgery Plan of Care Note: Discussed with Dr. Junior. Ok for RNF today. Lynda Holman PA-C Department of Neurosurgery Pager: [phone] 22, 2023 9:42 [facility]12-23-2023 NoteHNO ID: [id number] Author: Mariposa Cervantes MD Service: General Surgery Author Type: Physician Type: Progress Notes Filed: 06/22/2023 10:18 AM Note Text: Trauma Surgery Progress Note SERVICE DATE: 06/22/2023 Trauma Service Pager: For questions or concerns Mon-Fri 6a-5p please page [phone]. After 5pm and on Weekends and Holidays, please page [phone] if in ICU or [phone] if on RNF. SUBJECTIVE: Acute events overnight. [...] 0659 06/22/23 07 - 06/23/23 0659 Shift [id number] 24 Hour Total [id number] [id number] 1035-0204 24 Hour Total INTAKE IV [phone] [...] Recommendations: MST: Total MST Score (Calculated): 0 Childhood Teacher: Pharmacy: Consult not needed Social Work: NA Anticipated Discharge Disposition: Pending Discussed (more content not included)...[facility]10-02-2023 Miscellaneous Notes* Telephone Encounter - Ilana Burr RN - 04/01/2023 10:42 AM EDT [...] you. Ilana Burr RN documented in this encounterMer[facility]08-31-2023 Instructions* Patient Instructions* Radha Branch PA-C - 02/28/2023 2:46 PM EDT The following instructions are important for you related to your office visit today with the [facility] General Surgeons. INSTRUCTIONS FOLLOWING YOUR RECENT [...] you should contact our office immediately @ [phone] and ask to be transferred to the General Surgery department. documented in this encounterMercy Health Defiance Hospital08-31-2023 History of Present illness Narrative* Radha Branch PA-C - 02/28/2023 2:29 PM EDT FOLLOW UP VISIT - HERNIA NAME: Deniz Kumar CLINIC NO.: [id number] DATE OF SERVICE: 02/28/2023 : 1935 REFERRING PHYSICIAN: Vadim Deras MD Deniz is a patient I am following with Dr. Ware for a recurrent umbilical hernia. Dr. Ware performed a repair of recurrent umbilical hernia on 02/21/23 at [facility]. The patient currently notes nomajor complaints. [...] plan. Radha Branch PA-C documented in this encounterMercy Health Defiance [facility]08-18-2023 History of Present illness Narrative* Vadim Deras MD - 02/15/2023 8:33 AM EDT This note was created using NoteWriter. Subjective [...] Stable. Vadim Deras MD documented in this encounterMercy Health [facility]07-28-2023 History of Present illness Narrative* Su [...] nurse and reviewed by me Nursing Notes: Rosa Steiner LPN 01/25/2023 3:09 [...] for repair of recurrence umbilical hernia at [facility]. I spent a total of 21 minutes on the date of the service which included preparing to see the patient, [id number] patient care, obtaining oral medical history from the patient in this encounter, performing a medically appropriate examination, counseling and educating the patient/family/caregiver, and ordering and/or scheduling of medications/tests/procedures, and completing appropriate medical documentation. Su Ware MD documented in this encounterMercy Health Defiance Hospital07-28-2023 Nurse Note* AmolRosaESTELA - 01/25/2023 3:04 PM EDT REVIEW OF [...] 2003 Rosa Steiner LPN documented in this encounterMercy Health [facility] Hospital07-07-2023 History of Present illness Narrative* Lynda Meyers PA-C - 01/04/2023 9:07 AM EDT Images from the original note were not included. [facility] [...] 03/2004 Colonoscopy TONSILLECTOMY & ADENOIDECTOMY <AGE 13 1940 UMBILICAL HERNIA REPAIR 5 OR OLDER 09/21/2021 FAMILY HISTORY: FAMILY HISTORY Problem Relation Age of Onset Prostate Cancer Father metastatic prostate Cancer Mother liver Hypertension Sister Lipids Sister SOCIAL HISTORY: Social Connections: Moderately Isolated Frequency of Communication with Friends and Family: More than three times a week Frequency of Social Gatherings with Friends and Family: Three times a week Attends Evangelical Services: Never Active Member of Clubs or [...] and [place]ura > 1 year Appt w/ B. PETER Meyers MT, PA-C for annual follow-up and refills. PETER Tinoco MT, PA-C * Madison Camejo LPN - 01/04/2023 8:09 AM EDT Verified name [...] Plan: Appointment with Lynda. documented in this encounterMercy Health Defiance Hospital03-28-2023 Instructions* Patient Instructions* Hyun Major APRN.CNP - 09/25/2022 1:38 PM EDT Appears to be subconjunctival hemorrhage - however would like to have you be re- evaluated tomorrow with Dr. Rivera Appointment at [facility] 09.26.2022 @ 1:50 PM Go to ER for any sudden loss of vision or severe vision changes. documented in this encounterMercy Health Defiance Hospital03-28-2023 History of Present illness Narrative* Shannon Fuentes LPN - 09/25/2022 1:35 PM EDT Phone call placed [facility] apoke to Brenda ramirez scheduled 09/25/2022 at 1:50, patient notified with visit. Shannon Fuentes LPN * Hyun Major APRN.CNP - 09/25/2022 1:28 PM EDT Images from the original note were not included. Subjective The history is provided by the patient. No pe electrical engineer was used. HPI Deniz Kumar is a [...] have confirmed and edited as necessary, the [facility] Review of Systems Constitutional: Negative for [...] tomorrow at [address] Rivera at [facility], who is his established opthamologist Diagnosis and treatment plan were discussed and questions were answered to the patient's satisfaction. Pt acknowledged understanding of concepts and follow up plan. Specific signs and symptoms that would indicate the need for higher level of care were discussed indetail warranting prompt ER evaluation. Hyun Major APRN.KEVYN documented in this encounterMercy Health Defiance Hospital03-03-2023 Instructions* Patient Instructions* Lynda Meyers PA-C - 08/31/2022 9:32 AM EST Follow up 3 month with PETER Blue MT, PA-C for follow-up on OAB documented in this encounterMercy Health Defiance Hospital03-03-2023 History of Present illness Narrative* Lynda Meyers PA-C - 08/31/2022 8:56 AM EST Images from the original note were not included. [facility] NEW CONSULT PATIENT CLINIC [...] and Family: Three times a week Attends Evangelical Services: Never Active Member of Clubs or [...] teaching appt. > 3 mo. Appt w/ PETER Blue MT, PA-C I spent a total of [...] Plan: Appointment with Lynda. documented in this encounterMercy Health Defiance Hospital02-16-2023 Instructions* Patient Instructions* Vadim Deras MD - 08/16/2022 8:40 AM EST Have you ever planned for future healthcare decisions with a power of employee benefits attorney, living will, or advance directives? Yes. [...] schedule this for you. documented in this encounterMercy Health Defiance Hospital02-16-2023 History of Present illness Narrative* Vadim Deras MD - 08/16/2022 8:26 AM EST This note was created using virocyt. Subjective Deniz Kumar is a 87 year [...] with sexual function:More than half the days [place] anxious, stressed, angry, irritable, lonely, isolated, or [...] pharmacy - Depression screening documented in this encounterMercy Health Defiance Hospital02-03-2023 Miscellaneous Notes* Telephone Encounter - Cary Andre ESTELA - 08/03/2022 2:34 PM EST Patient has [...] you. Cary Andre LPN documented in this encounterMercy Health Def[facility] Hospital11-05-2022 Miscellaneous Notes* Telephone Encounter - Angélica San MA - 05/05/2022 2:25 PM EDT Pt was notified of the results. Pt verbalized understanding. Angélica San MA * Telephone Encounter - Valdez Arellano APRN.CNP - 05/05/2022 8:17 AM EDT Please notify that covid. Continue with plan of care as discussed during visit. documented in this encounterMercy Health Defiance Hospital11-04-2022 History of Present illness Narrative* Susan Corado PA-C - 05/04/2022 9:49 AM EDT This note was created using eTecriter. Subjective Deniz Kumar is a 86 year [...] COVID-19 Susan Corado PA-C documented in this encounterMercy Health Def[facility] Hospital09-05-2022 History of Present illness Narrative* Haylie Chin APRN.[facility] - 03/05/2022 9:38 AM EDT Images from the original note were not included. Subjective She came in with complaints of some type of pimple on the right side of his groin he said. It has been about 4 days. Does not seem to be getting worse. Denies any fevers nausea vomiting. Denies any other symptoms. The history is provided by the patient. No pe electrical engineer was used. Review of Systems Constitutional: Negative. Skin: Negative. Objective Physical Exam Exam conducted with a shank stapler present. Constitutional: Appearance: Normal appearance. Pulmonary: Effort: [...] 03/2004 Colonoscopy TONSILLECTOMY & ADENOIDECTOMY <AGE 13 194 UMBILICAL HERNIA REPAIR 5 OR OLDER 09/21/2021 [...] okay with this care plan. Haylie Chin APRN.WHARF TENDER HELPER documented in this encounterMercy Health Defiance Hospital08-11-2022 Instructions* Patient Instructions* Vadim Deras MD - 02/08/2022 9:26 AM EDT FASTING BLOOD WORK BEFORE August APPOINTMENT. COPY OF ADVANCED DIRECTIVE FOR YOUR RECORD. documented in this encounterMercy Health Defiance Hospital08-11-2022 History of Present illness Narrative* Vadim Deras MD - 02/08/2022 9:14 AM EDT This note was created using virocyt. Subjective Deniz Kumar is a 86 year [...] BASIC Vadim Deras MD documented in this encounterMercy Health [facility]iance Hospital07-14-2022 Miscellaneous Notes* Telephone Encounter - Cee [...] patient. Cee Alonzo Pss documented in this encounterMercy Health Defiance Hospital06-27-2022 History of Present illness Narrative* Su [...] signs/symptoms Su Ware MD documented in this encounterMercy Health Defiance Hospital04-03-2022 History of Present illness Narrative* Su Ware MD - 10/01/2021 5:38 PM EDT FOLLOW UP VISIT NAME: Deniz Echavarria [facility] NO.: [id number] DATE OF SERVICE: 09/29/2021 : 1935 REFERRING [...] others. 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 02/14/2007 07/12/2016 documented as of this encounter (statuses as of 12/30/2021) [address]22-2008 History of Past illness Narrative* Problem Noted Date Resolved Date Dizziness and giddiness 08/22/2007 07/12/19 17 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 02/14/2007 07/12/2016 documented as of this encounter (statuses as of 01/11/2022) [address]22-2008 History of Past illness Narrative* Problem Noted Date Resolved Date Dizziness and giddiness 08/22/2007 07/12/19 17 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 02/14/2007 07/12/2016 documented as of this encounter (statuses as of 02/08/2022) [address]22-2008 History of Past illness Narrative* Problem Noted Date Resolved Date Dizziness and giddiness 08/22/2007 07/12/19 17 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 02/14/2007 07/12/2016 documented as of this encounter (statuses as of 03/05/2022) [address]22-2008 History of Past illness Narrative* Problem Noted Date Resolved Date Dizziness and giddiness 08/22/2007 07/12/19 17 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 02/14/2007 07/12/2016 documented as of this encounter (statuses as of 05/04/2022) [address]22-2008 History of Past illness Narrative* Problem Noted Date Resolved Date Dizziness and giddiness 08/22/2007 07/12/19 17 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 02/14/2007 07/12/2016 documented as of this encounter (statuses as of 05/05/2022) [address]22-2008 History of Past illness Narrative* Problem Noted Date Resolved Date Dizziness and giddiness 08/22/2007 07/12/19 17 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 02/14/2007 07/12/2016 documented as of this encounter (statuses as of 08/06/2022) [address] History of Past illness Narrative* Problem Noted Date Resolved Date Dizziness and giddiness 08/22/2007 07/12/19 17 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 02/14/2007 07/12/2016 documented as of this encounter (statuses as of 08/16/2022) [address]-2008 History of Past illness Narrative* Problem Noted Date Resolved Date Dizziness and giddiness 08/22/2007 07/12/19 17 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 02/14/2007 07/12/2016 documented as of this encounter (statuses as of 08/31/2022) [address]22-2008 History of Past illness Narrative* Problem Noted Date Resolved Date Dizziness and giddiness 08/22/2007 07/12/19 17 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 02/14/2007 07/12/2016 documented as of this encounter (statuses as of 09/25/2022) [address]-2008 History of Past illness Narrative* Problem Noted Date Resolved Date Dizziness and giddiness 08/22/2007 07/12/19 17 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 02/14/2007 07/12/2016 documented as of this encounter (statuses as of 01/04/2023) [address]22-2008 History of Past illness Narrative* Problem Noted Date Diagnosed Date Resolved Date Dizziness and giddiness 08/22/200707/01 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 02/14/2007 07/12/2016 documented as of this encounter (statuses as of 01/27/2023) [address]-2008 History of Past illness Narrative* Problem Noted Date Diagnosed Date Resolved Date Dizziness and giddiness 08/22/200707/01 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 02/14/2007 07/12/2016 documented as of this encounter (statuses as of 02/15/2023) [address]-2008 History of Past illness Narrative* Problem Noted Date Diagnosed Date Resolved Date Dizziness and giddiness 08/22/200707/01 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 02/14/2007 07/12/2016 documented as of this encounter (statuses as of 03/01/2023) [address]22-2008 History of Past illness Narrative* Problem Noted Date Diagnosed Date Resolved Date Dizziness and giddiness 08/22/200707/01 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 02/14/2007 07/12/2016 documented as of this encounter (statuses as of 04/02/2023) [address]22-2008 History of Past illness Narrative* Problem Noted Date Diagnosed Date Resolved Date Dizziness and giddiness 08/22/200707/01 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 02/14/2007 07/12/2016 documented as of this encounter (statuses as of 08/03/2023) [address]22-2008 History of Past illness Narrative* Problem Noted Date Diagnosed Date Resolved Date Dizziness and giddiness 08/22/200707/01 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 02/14/2007 07/12/2016 documented as of this encounter (statuses as of 08/06/2023) [address]22-2008 History of Past illness Narrative* Problem Noted Date Diagnosed Date Resolved Date Dizziness and giddiness 08/22/200707/01 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 02/14/2007 07/12/2016 documented as of this encounter (statuses as of 08/13/2023) [address]-2008 History of Past illness Narrative* Problem Noted Date Diagnosed Date Resolved Date Dizziness and giddiness 08/22/200707/01 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 02/14/2007 07/12/2016 documented as of this encounter (statuses as of 08/15/2023) [address]-2008 History of Past illness Narrative* Problem Noted Date Diagnosed Date Resolved Date Dizziness and giddiness 08/22/200707/01 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 02/14/2007 07/12/2016 documented as of this encounter (statuses as of 08/23/2023) [address]22-2008 History of Past illness Narrative* Problem Noted Date Diagnosed Date Resolved Date Dizziness and giddiness 08/22/200707/01 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 02/14/2007 07/12/2016 documented as of this encounter (statuses as of 09/09/2023) [address]22[address]2008 History of Past illness Narrative* Problem Noted Date Diagnosed Date Resolved Date Dizziness and giddiness 08/22/200707/01 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 02/14/2007 07/12/2016 documented as of this encounter (statuses as of 10/15/2023) [facility] note* Diagnosis Status post umbilical hernia repair, follow-up exam- Primary Follow-up examination, following other surgery documented [facility] Diagnosis Extrusion of suture, initial encounter- Primary documented in this encounter [facility] note* Diagnosis Benign prostatic hyperplasia with urinary obstruction Essential hypertension Unspecified essential hypertension documented in this encounter [facility] note* Diagnosis Myalgia- Primary Mylagia and myositis, unspecified Need for vaccination Need for prophylactic vaccination and inoculation against unspecified single disease Essential hypertension Unspecified essential hypertension Hyperlipidemia, unspecified hyperlipidemia type documented in this encounter [facility] note* Diagnosis Skin infection- Primary Unspecified local infection of skin and subcutaneous tissue documented in this encounter [facility] note* Diagnosis Exposure to COVID-19 virus- Primary documented in this encounter [facility] note* Diagnosis Benign prostatic hyperplasia with urinary obstruction Essential hypertension Unspecified essential hypertension documented in this encounter [facility] note* Diagnosis Medicare annual wellness visit, subsequent- Primary Routine general medical examination at a [facility] facility Thrombocytopenia, unspecified (HCC) Thrombocytopenia, unspecified Essential hypertension Unspecified essential hypertension Benign prostatic hyperplasia with urinary obstruction Hyperlipidemia, unspecified hyperlipidemia type Erectile dysfunction, unspecified erectile dysfunction type documented in this encounter [facility] note* Diagnosis OAB (overactive bladder)- Primary Hypertonicity of bladder Erectile dysfunction, unspecified erectile dysfunction type Benign prostatic hyperplasia with urinary obstruction documented in this encounter [facility] note* Diagnosis Eye problem- Primary Other eye problems documented in this encounter [facility] note* Diagnosis OAB (overactive bladder)- Primary 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 documented in this encounter [facility] note* Diagnosis Recurrent umbilical hernia- Primary Umbilical hernia without mention of obstruction or gangrene [facility]* Diagnosis Benign prostatic hyperplasia with urinary obstruction- Primary Essential hypertension Unspecified essential hypertension Hyperlipidemia, unspecified hyperlipidemia type Hypoalbuminemia Other disorders of plasma protein metabolism Thrombocytopenia, unspecified (HCC) Thrombocytopenia, unspecified Recurrent umbilical hernia Umbilical hernia without mention of obstruction or gangrene [facility]* Diagnosis S/P hernia repair- Primary Other postprocedural status documented in this encounter [facility] note* Diagnosis Hyperlipidemia, unspecified hyperlipidemia type documented in this encounter [facility] noteNo assessment information availableWUniversity Hospitals [facility] Work Phone: Evaluation note* Diagnosis Onset Date Resolution Status Adverse reaction to drug natalia t primarily affects musculoskeletal system acute Bimalleolar fracture of left ankle acute BPH (benign prostatic hyperplasia) acute Debility acute History of open reduction an d internal fixation (ORIF) procedure acute Hypercholesterolemia acute Overactive bladder acute Thrombocytopenia acute Hypertension chronic [facility] Work Phone: Evaluation note* Diagnosis SAH (subarachnoid hemorrhage) (HCC) Subarachnoid hemorrhage [facility]* Diagnosis Closed bimalleolar fracture of left ankle with routine healing, subsequent encounter- Primary [facility]* Diagnosis Onset Date Resolution Status BPH (benign prostatic hyperplasia) acute Debility acute History of open reduction an d internal fixation (ORIF) procedure acute Hypertension chronic Adverse reaction to drug natalia t primarily affects musculoskeletal system resolved Bimalleolar fracture of left ankle resolved Hypercholesterolemia resolve d Overactive bladder resolved Thrombocytopenia resolved [facility] Work Phone: Evaluation note* Diagnosis Essential hypertension- Primary Unspecified essential hypertension History of TIA (transient ischemic attack) Transient ischemic attack (TIA), and cerebral infarction without residual deficits Gait abnormality Abnormality of gait Hyperlipidemia, unspecified hyperlipidemia type Thrombocytopenia, unspecified (HCC) Thrombocytopenia, unspecified Hypoalbuminemia Other disorders of plasma protein metabolism [facility]* Diagnosis Essential hypertension Unspecified essential hypertension Benign prostatic hyperplasia with urinary obstruction [facility]* Diagnosis Gait abnormality- Primary Abnormality of gait Leg weakness, bilateral Other musculoskeletal symptoms referable to limbs Essential hypertension Unspecified essential hypertension [facility]* Diagnosis Leg weakness, bilateral- Primary Other musculoskeletal symptoms referable to limbs Gait abnormality Abnormality of gait Hyperlipidemia, unspecified hyperlipidemia type Essential hypertension Unspecified essential hypertension Urgency of urination Benign prostatic hyperplasia with urinary obstruction [facility]* Diagnosis Urgency of urination Benign prostatic hyperplasia with urinary obstruction [facility]* Diagnosis Thrombocytopenia, unspecified (HCC)- Primary Thrombocytopenia, unspecified Essential hypertension Unspecified essential hypertension [facility]* Diagnosis Medicare annual wellness visit, subsequent- [...] of leg Edema [facility] Ataxia- Primary Lack of coordination [...] in cervical region [facility] Ataxia Lack of coordination Tremor Abnormal involuntary movements Spinal stenosis in cervical region Spinal stenosis of cervical region Spinal stenosis in cervical region Spinal stenosis of lumbar region without neurogenic claudication Spinal stenosis, lumbar region, without neurogenic claudication [facility] Diagnosis Cervical stenosis of spine- Primary Spinal stenosis in cervical region Spinal stenosis of lumbar region, unspecified whether neurogenic claudication present [facility] Diagnosis Benign prostatic hyperplasia with urinary obstruction Urgency of urination [facility] Diagnosis Gait abnormality- Primary Abnormality of gait Leg weakness, bilateral Other musculoskeletal symptoms referable to limbs Speech disturbance, unspecified type Ataxia Lack of coordination History of subdural hematoma Spinal stenosis in cervical region Spinal stenosis of lumbar region without neurogenic claudication Spinal stenosis, lumbar region, without neurogenic claudication [facility] Diagnosis Parkinson's disease, unspecified whether [...] referable to limbs [facility] Diagnosis Overactive bladder- Primary Hypertonicity of bladder Benign prostatic hyperplasia with urinary frequency Nocturia [facility] BPH with urinary obstruction- Primary Hypertrophy of prostate with urinary obstruction and other lower urinary tract symptoms (LUTS) [facility] Additional Instructions Return to the emergency department with decreased mental status, new or worsening symptoms.[facility] Work Phone: Reason for referral (narrative)* Diagnostic Procedure Only (Routine) - Pending Review Specialty Diagnoses / Procedures Referred By Contac t Referred To Contact XR IMAGING Diagnoses Closed bimalleolar fracture of left ankle with routine healing, subsequent encounter Procedures XR ANKLE GENERAL 3V AP/LAT/OBL LEFT RADEX ANKLE COMPLETE MINIMUM 3 VIEWS Bonifacio Valdez MD [address] [address] [place] [address] Referral ID Status Reason Start Date Expiration Date Visits Requested Visits Authorized [id number] Pending Review Auto-Generat ed Referral 08/06/2023 09/03/2024 1 1 [facility]No reason for referral information availableWUniversity [facility]als [facility] Work Phone: Summary Purpose Family History No Family History Records Found Relationship Condition Age at Onset Recorded Date/T archana father Malignant neoplasm Unknown mother Malignant neoplasm Unknown sister Hypertension Unknown Hyperlipidemia Unknown Advance Directives No Advanced Directives Records FoundDocuments on File Type Date Recorded Patient Test And Turn Up Technician Expl anation Advance Directive(s) 03/01/2023 9:16 AM Date Activated Date Inactivated Comments 06/21/2023 7:56 PM 06/27/2023 9:05 PM Question Answer Comments Full Code Order Discussed With: Patient Documents on File Type Date Recorded Patient Test And Turn Up Technician Expl anation Advance Directive(s) 09/21/2021 10:36 AM Advance Directive Response Recorded Date/ Time Living Will Yes June 21 023 12:54pm Power of Conservation Agent Yes June 21, 2023 12:54pm Name of Medical Power of Conservation Agent Gerri Barnes June 21, 2023 12:54pm Advance Directive Response Recorded Date/ Time Name of Medical Power of Conservation Agent Gerri Barnes June 21, 2023 12:54pm Name of Medical Power of Conservation Agent heidi Penny July 03, 2023 4:56pm Living Will Yes July 03 4:56pm Power of Conservation Agent Yes July 03 024 4:56pm Documents on File Type Date Recorded Patient Test And Turn Up Technician Expl anation Advance Directive(s) 03/01/2023 9:16 AM [...] Do you have a Healthcare Power of Conservation Agent? No November 30, 2024 2:11pm Reason for Referral Specialty Diagnoses / Procedures Referred By Contac t Referred To Contact Urology Diagnoses Benign prostatic hyperplasia with urinary obstruction Erectile dysfunction, unspecified erectile dysfunction type Procedures CONSULT TO UROLOGY OFFICE/OUTPATIENT [facility] 60-74 MINUTES Vadim Deras MD [address] [place] [address] Referral ID Status Reason Start Date Expiration Date Visits Requested Visits Authorized [id number] Authorized PCP Requested Referral 08/16/2022 08/16/2023 1 1 Specialty Diagnoses / Procedures Referred By Contac t Referred To Contact CT IMAGING Diagnoses SAH (subarachnoid hemorrhage) (HCC) Procedures CT BRAIN WO IVCON CT HEAD/BRAIN W/O CONTRAST MATERIAL Rosanne Flannery, HOG STOMACH PREPARER.WHARF TENDER HELPER [address] [place] [address] [place] [address] Referral ID Status Reason Start Date Expiration Date V isits Requested Visits Authorized [id number] Closed Auto-Generate d Referral 07/01/2023 06/30/2024 1 1 Specialty Diagnoses / Procedures Referred By Contac t Referred To Contact Neurology Diagnoses Gait abnormality Leg weakness, bilateral Procedures CONSULT TO NEUROLOGY OFFICE/OUTPATIENT [facility] MDM 60 MINUTES Vadim Deras MD [address] [place] [address] Referral ID Status Reason Start Date Expiration Date Visits Requested Visits Authorized [id number] Pending Review PCP Requested Referral 10/14/2023 10/13/2024 1 1 Specialty Diagnoses / Procedures Referred By Contac t Referred To Contact MR IMAGING Diagnoses Spinal stenosis of lumbar region without neurogenic claudication Procedures MRI LUMBAR SPINE WO IVCON MRI SPINAL CANAL LUMBAR W/O CONTRAST MATERIAL Bonifacio Ledbetter Jr., MD [address] [facility] [address] [place] [address] [place] [address] Referral ID Status Reason Start Date Expiration Date Visits Requested Visits Authorized [id number] Authorized Auto-Generat ed Referral 03/13/2024 04/12/2025 1 1 Specialty Diagnoses / Procedures Referred By Contac t Referred To Contact MR IMAGING Diagnoses Tremor Spinal stenosis in cervical region Spinal stenosis of cervical region Procedures MRI CERVICAL SPINE WO IVCON MRI SPINAL CANAL CERVICAL W/O CONTRAST MATRL Bonifacio Ledbetter Jr., MD [address] [place] [address] [address] [place] [address] [place] [address] Referral ID Status Reason Start Date Expiration Date Visits Requested Visits Authorized [id number] Authorized Auto-Generat ed Referral 03/13/2024 04/12/2025 1 1 Specialty Diagnoses / Procedures Referred By Contac t Referred To Contact MR IMAGING Diagnoses Ataxia Procedures MRI BRAIN WO IVCON MRI BRAIN BRAIN STEM W/O CONTRAST MATERIAL Bonifacio Ledbetter Jr., MD [facility] [address] [place] [address] [place] [address] Referral ID Status Reason Start Date Expiration Date Visits Requested Visits Authorized [id number] Authorized Auto-Generat ed Referral 03/13/2024 04/12/2025 1 1 Referral ID Status Reason Start Date Expiration Date V isits Requested Visits Authorized [id number] Closed Auto-Generate d Referral 03/13/2024 04/12/2025 1 1 Referral ID Status Reason Start Date Expiration Date V isits Requested Visits Authorized [id number] Closed Auto-Generate d Referral 03/13/2024 04/12/2025 1 1 Referral ID Status Reason Start Date Expiration Date V isits Requested Visits Authorized [id number] Closed Auto-Generate d Referral 03/13/2024 04/12/2025 1 1 Specialty Diagnoses / Procedures Referred By Contac t Referred To Contact [facility] [place] Diagnoses Cervical stenosis of spine Spinal stenosis of lumbar region, unspecified whether neurogenic claudication present Procedures CONSULT TO [facility] OFFICE/OUTPATIENT [facility] 60 MINUTES Bonifacio Ledbetter Jr., MD [address] [facility] [address] [place] [address] Referral ID Status Reason Start Date Expiration Date Visits Requested Visits Authorized [id number] Pending Review PCP Requested Referral 4 04/12/2025 [...] ORIF LEFT SUBDURAL HEMATOMA, LEFT ANKLE ORIF CUSTODIAL LABWORK LABWORK Reason for Visit BPH (benign prostati c hyperplasia) Debility History of open reduction and internal fixation (ORIF) procedure Hypertension Adverse reaction to drug that primarily affects musculoskeletal system Bimalleolar fracture of left ankle Hypercholesterolemia Overactive bladder Thrombocytopenia Chief Complaint fall LEFT SUBDURAL HEMATOMA, LEFT ANKLE ORIF LEFT SUBDURAL HEMATOMA, LEFT ANKLE ORIF CUSTODIAL LABWORK CUSTODIAL LAB WORK LABWORK Reason for Visit BPH [...] section and content) DATE CREATED AUTHOR 11/05/2018 [facility] DATE CREATED AUTHOR AUTHOR'S ORGANIZ ATION 11/22/2018 [facility] DATE CREATED AUTHOR AUTHOR'S ORGANIZ ATION 04/14/2024 [facility] DATE CREATED AUTHOR AUTHOR'S ORGANIZ ATION 10/20/2024 [facility] DATE CREATED AUTHOR AUTHOR'S ORGANIZ ATION 12/11/2024 [facility] DATE CREATED AUTHOR AUTHOR'S ORGANIZ ATION 12/24/2024 [facility] Source Comments (unrecognize d section and content) In the event this informatio n is protected by the Federal Confidentiality of Alcohol and Drug Abuse Patient Records regulations: The Federal rules restrict any use of the information to criminally investigate or prosecute any alcohol or drug abuse patient.[facility] HospitalIn the event this information is protected by the Federal Confidentiality of Alcohol and Drug Abuse Patient Records regulations: The Federal rules restrict any use of the information to criminally investigate or prosecute any alcohol or drug abuse patient.[facility] HospitalIn the event this information is protected by the Federal Confidentiality of Alcohol and Drug Abuse Patient Records regulations: The Federal rules restrict any use of the information to criminally investigate or prosecute any alcohol or drug abuse patient.[facility] HospitalIn the event this information is protected by the Federal Confidentiality of Alcohol and Drug Abuse Patient Records regulations: The Federal rules restrict any use of the information to criminally investigate or prosecute any alcohol or drug abuse patient.[facility] HospitalIn the event this information is protected by the Federal Confidentiality of Alcohol and Drug Abuse Patient Records regulations: The Federal rules restrict any use of the information to criminally investigate or prosecute any alcohol or drug abuse patient.[facility] HospitalIn the event this information is protected by the Federal Confidentiality of Alcohol and Drug Abuse Patient Records regulations: The Federal rules restrict any use of the information to criminally investigate or prosecute any alcohol or drug abuse patient.[facility] HospitalIn the event this information is protected by the Federal Confidentiality of Alcohol and Drug Abuse Patient Records regulations: The Federal rules restrict any use of the information to criminally investigate or prosecute any alcohol or drug abuse patient.[facility] HospitalIn the event this information is protected by the Federal Confidentiality of Alcohol and Drug Abuse Patient Records regulations: The Federal rules restrict any use of the information to criminally investigate or prosecute any alcohol or drug abuse patient.[facility] HospitalIn the event this information is protected by the Federal Confidentiality of Alcohol and Drug Abuse Patient Records regulations: The Federal rules restrict any use of the information to criminally investigate or prosecute any alcohol or drug abuse patient.[facility] HospitalIn the event this information is protected by the Federal Confidentiality of Alcohol and Drug Abuse Patient Records regulations: The Federal rules restrict any use of the information to criminally investigate or prosecute any alcohol or drug abuse patient.[facility] HospitalIn the event this information is protected by the Federal Confidentiality of Alcohol and Drug Abuse Patient Records regulations: The Federal rules restrict any use of the information to criminally investigate or prosecute any alcohol or drug abuse patient.[facility] HospitalIn the event this information is protected by the Federal Confidentiality of Alcohol and Drug Abuse Patient Records regulations: The Federal rules restrict any use of the information to criminally investigate or prosecute any alcohol or drug abuse patient.[facility] HospitalIn the event this information is protected by the Federal Confidentiality of Alcohol and Drug Abuse Patient Records regulations: The Federal rules restrict any use of the information to criminally investigate or prosecute any alcohol or drug abuse patient.[facility] HospitalIn the event this information is protected by the Federal Confidentiality of Alcohol and Drug Abuse Patient Records regulations: The Federal rules restrict any use of the information to criminally investigate or prosecute any alcohol or drug abuse patient.[facility] HospitalIn the event this information is protected by the Federal Confidentiality of Alcohol and Drug Abuse Patient Records regulations: The Federal rules restrict any use of the information to criminally investigate or prosecute any alcohol or drug abuse patient.[facility] HospitalIn the event this information is protected by the Federal Confidentiality of Alcohol and Drug Abuse Patient Records regulations: The Federal rules restrict any use of the information to criminally investigate or prosecute any alcohol or drug abuse patient.[facility] HospitalIn the event this information is protected by the Federal Confidentiality of Alcohol and Drug Abuse Patient Records regulations: The Federal rules restrict any use of the information to criminally investigate or prosecute any alcohol or drug abuse patient.[facility] HospitalIn the event this information is protected by the Federal Confidentiality of Alcohol and Drug Abuse Patient Records regulations: The Federal rules restrict any use of the information to criminally investigate or prosecute any alcohol or drug abuse patient.[facility] HospitalIn the event this information is protected by the Federal Confidentiality of Alcohol and Drug Abuse Patient Records regulations: The Federal rules restrict any use of the information to criminally investigate or prosecute any alcohol or drug abuse patient.[facility] HospitalIn the event this information is protected by the Federal Confidentiality of Alcohol and Drug Abuse Patient Records regulations: The Federal rules restrict any use of the information to criminally investigate or prosecute any alcohol or drug abuse patient.[facility] HospitalIn the event this information is protected by the Federal Confidentiality of Alcohol and Drug Abuse Patient Records regulations: The Federal rules restrict any use of the information to criminally investigate or prosecute any alcohol or drug abuse patient.[facility] HospitalIn the event this information is protected by the Federal Confidentiality of Alcohol and Drug Abuse Patient Records regulations: The Federal rules restrict any use of the information to criminally investigate or prosecute any alcohol or drug abuse patient.[facility] HospitalIn the event this information is protected by the Federal Confidentiality of Alcohol and Drug Abuse Patient Records regulations: The Federal rules restrict any use of the information to criminally investigate or prosecute any alcohol or drug abuse patient.[facility] HospitalIn the event this information is protected by the Federal Confidentiality of Alcohol and Drug Abuse Patient Records regulations: The Federal rules restrict any use of the information to criminally investigate or prosecute any alcohol or drug abuse patient.[facility] HospitalIn the event this information is protected by the Federal Confidentiality of Alcohol and Drug Abuse Patient Records regulations: The Federal rules restrict any use of the information to criminally investigate or prosecute any alcohol or drug abuse patient.[facility] HospitalIn the event this information is protected by the Federal Confidentiality of Alcohol and Drug Abuse Patient Records regulations: The Federal rules restrict any use of the information to criminally investigate or prosecute any alcohol or drug abuse patient.[facility] HospitalIn the event this information is protected by the Federal Confidentiality of Alcohol and Drug Abuse Patient Records regulations: The Federal rules restrict any use of the information to criminally investigate or prosecute any alcohol or drug abuse patient.[facility] HospitalIn the event this information is protected by the Federal Confidentiality of Alcohol and Drug Abuse Patient Records regulations: The Federal rules restrict any use of the information to criminally investigate or prosecute any alcohol or drug abuse patient.[facility] HospitalIn the event this information is protected by the Federal Confidentiality of Alcohol and Drug Abuse Patient Records regulations: The Federal rules restrict any use of the information to criminally investigate or prosecute any alcohol or drug abuse patient.[facility] HospitalIn the event this information is protected by the Federal Confidentiality of Alcohol and Drug Abuse Patient Records regulations: The Federal rules restrict any use of the information to criminally investigate or prosecute any alcohol or drug abuse patient.[facility] HospitalIn the event this information is protected by the Federal Confidentiality of Alcohol and Drug Abuse Patient Records regulations: The Federal rules restrict any use of the information to criminally investigate or prosecute any alcohol or drug abuse patient.[facility] HospitalIn the event this information is protected by the Federal Confidentiality of Alcohol and Drug Abuse Patient Records regulations: The Federal rules restrict any use of the information to criminally investigate or prosecute any alcohol or drug abuse patient.[facility] HospitalIn the event this information is protected by the Federal Confidentiality of Alcohol and Drug Abuse Patient Records regulations: The Federal rules restrict any use of the information to criminally investigate or prosecute any alcohol or drug abuse patient.[facility] HospitalIn the event this information is protected by the Federal Confidentiality of Alcohol and Drug Abuse Patient Records regulations: The Federal rules restrict any use of the information to criminally investigate or prosecute any alcohol or drug abuse patient.[facility] HospitalIn the event this information is protected by the Federal Confidentiality of Alcohol and Drug Abuse Patient Records regulations: The Federal rules restrict any use of the information to criminally investigate or prosecute any alcohol or drug abuse patient.[facility] HospitalIn the event this information is protected by the Federal Confidentiality of Alcohol and Drug Abuse Patient Records regulations: The Federal rules restrict any use of the information to criminally investigate or prosecute any alcohol or drug abuse patient.[facility] HospitalIn the event this information is protected by the Federal Confidentiality of Alcohol and Drug Abuse Patient Records regulations: The Federal rules restrict any use of the information to criminally investigate or prosecute any alcohol or drug abuse patient.[facility] HospitalIn the event this information is protected by the Federal Confidentiality of Alcohol and Drug Abuse Patient Records regulations: The Federal rules restrict any use of the information to criminally investigate or prosecute any alcohol or drug abuse patient.[facility] HospitalIn the event this information is protected by the Federal Confidentiality of Alcohol and Drug Abuse Patient Records regulations: The Federal rules restrict any use of the information to criminally investigate or prosecute any alcohol or drug abuse patient.[facility] HospitalIn the event this information is protected by the Federal Confidentiality of Alcohol and Drug Abuse Patient Records regulations: The Federal rules restrict any use of the information to criminally investigate or prosecute any alcohol or drug abuse patient.[facility] HospitalIn the event this information is protected by the Federal Confidentiality of Alcohol and Drug Abuse Patient Records regulations: The Federal rules restrict any use of the information to criminally investigate or prosecute any alcohol or drug abuse patient.[facility] HospitalIn the event this information is protected by the Federal Confidentiality of Alcohol and Drug Abuse Patient Records regulations: The Federal rules restrict any use of the information to criminally investigate or prosecute any alcohol or drug abuse patient.[facility] HospitalIn the event this information is protected by the Federal Confidentiality of Alcohol and Drug Abuse Patient Records regulations: The Federal rules restrict any use of the information to criminally investigate or prosecute any alcohol or drug abuse patient.[facility] HospitalIn the event this information is protected by the Federal Confidentiality of Alcohol and Drug Abuse Patient Records regulations: The Federal rules restrict any use of the information to criminally investigate or prosecute any alcohol or drug abuse patient.[facility] Reason for Visit (unrecogniz ed section [...] Procedures CONSULT TO UROLOGY OFFICE/OUTPATIENT [facility] MDM 60-74 MINUTES Vadim Deras MD [address] [place] [address] Referral ID Status Reason Start Date Expiration Date V isits Requested Visits Authorized [id number] Closed PCP Requested Referral 08/16/2022 08/16/2023 1 1 Reason Comments Eye Problem Pt reported (LT) eye irritation, onset AM denied pain, visual changes. Reason Comments Follow Up Erectile Dysfunction Overactive Bladder Reason Comments Consult Hernia repair Reason Comments Post Op Follow Up Hernia repair [place] Reason Onset Date Comments Refill Request 04/01/2023 Specialty Diagnoses / Procedures Referred By Contac t Referred To Contact NEUROSURGERY Diagnoses SAH (subarachnoid hemorrhage) (HCC) Procedures OFFICE/OUTPATIENT ESTABLISHED MOD [facility] 30 MIN Consult, test, treat Nicolás Junior MD [address] [place] [address] [facility] [address] [place] [address] Referral ID Status Reason Start Date Expiration Date Visits Requested Visits Authorized [id number] Authorized OON/Self Pay Override 07/01/2023 06/30/2024 99 [...] Procedures CONSULT TO NEUROLOGY OFFICE/OUTPATIENT NEW HIGH [facility] 60 MINUTES Vadim Deras MD [address] [place] [address] Neur Adult [facility] [address] [place] [address] Referral ID Status Reason Start Date Expiration Date V isits Requested Visits Authorized [id number] Closed PCP Requested Referral 07/01/2023 06/30/2024 1 1 Reason Onset Date Comments Allied Health Visit 04/02/2024 Medication A dherence Outreach Specialty Diagnoses / Procedures Referred By Contac t Referred To Contact MR IMAGING Diagnoses Spinal stenosis of lumbar region without neurogenic claudication Procedures MRI LUMBAR SPINE WO IVCON MRI SPINAL CANAL LUMBAR W/O CONTRAST MATERIAL Bonifacio Ledbetter Jr., MD [address] [facility] [address] [place] [address] [place] [address] Referral ID Status Reason Start Date Expiration Date V isits Requested Visits Authorized [id number] Closed Auto-Generate d Referral 03/13/2024 04/12/2025 1 1 Reason Comments Patient Question Reason Comments Established Patient Follow up for MRI, p t at [facility] for therapy for spinal stenosis, pt fell in May 2024. Specialty Diagnoses / Procedures Referred By Julian aparicio Referred To Contact Neurology / NEUROLOGY Diagnoses Encounter for follow-up examination after completed treatment for conditions other than malignant neoplasm follow up after MRI, 03/13 [facility]- MRI *3 ordered (done) Procedures OFFICE/OUTPATIENT ESTABLISHED SF MDM 10 MIN OFFICE/OUTPATIENT ESTABLISHED LOW MDM 20 MIN OFFICE/OUTPATIENT ESTABLISHED MOD MDM 30 MIN OFFICE/OUTPATIENT ESTABLISHED HIGH MDM 40 MIN EST NI PATIENT Vadim Deras MD [address] [place] [address] Bonifacio Ledbetter Jr., MD [address] [place] [address] Referral ID Status Reason Start Date Expiration Date Visits Re quested Visits Authorized [id number] Closed 06/03/2024 06/30/2024 1 1 Reason Comments Forms Reason Comments Follow Up Specialty Diagnoses / Procedures Referred By Julian aparicio Referred To Contact Neurology / NEUROLOGY Diagnoses Unspecified abnormalities of gait and mobility est gait abn, BLE weakness, speech, ataxia, spinal stenosis, f/u 4-8 wks per [facility], 60 min slot, [facility] 06/26/24 Procedures OFFICE/OUTPATIENT ESTABLISHED HIGH MDM 40 MIN NEW GENERAL/SPECIALTY Vadim Deras MD [address] [place], [place] [id number] Phone: tel: fax: Bonifacio Ledbetter Jr., MD [address] [place] [address] Phone: tel: fax: Referral ID Status Reason Start Date Expiration Date Visits Re quested Visits Authorized [id number] Closed 09/04/2024 06/30/2025 1 1 Reason Comments Patient Update Reason Comments Established Patient BPH, OAB Specialty Diagnoses / Procedures Referred By Contac t Referred To Contact Urology Diagnoses Benign prostatic hyperplasia with urinary frequency Nocturia Procedures CONSULT TO UROLOGY OFFICE/OUTPATIENT [facility] 60 MINUTES Bonifacio Ledbetter Jr., MD [address] [place] [address] Phone: tel: fax: Referral ID Status Reason Start Date Expiration Date V isits Requested Visits Authorized [id number] Closed PCP Requested Referral 09/04/2024 09/04/2025 1 1 Care Teams (unrecognized sec tion and content) Tool Adjuster Relationship Specialty Start Date End Date Vadim Deras MD [address] [place] [id number] PCP - General Internal Medicine 07/23/16 Tool Adjuster Relationship Specialty Start Date End Date Vadim Deras MD [address] [place] [id number] PCP - General Internal Medicine 07/23/16 Tool Adjuster Relationship Specialty Start Date End Date Vadim Deras MD [address] [place] [address] PCP - General Internal Medicine 07/23/16 Tool Adjuster Relationship Specialty Start Date End Date Vadim Deras MD [address] [place] [id number] PCP - General Internal Medicine 07/23/16 Tool Adjuster Relationship Specialty Start Date End Date Vadim Deras MD [address] [place] [address] PCP - General Internal Medicine 07/23/16 Tool Adjuster Relationship Specialty Start Date End Date Vadim Deras MD [address] [place] [address] PCP - General Internal Medicine 07/23/16 Tool Adjuster Relationship Specialty Start Date End Date Vadim Deras MD [address] [place] [address] PCP - General Internal Medicine 07/23/16 Tool Adjuster Relationship Specialty Start Date End Date Vadim Deras MD [address] [place] [address] PCP - General Internal Medicine 07/23/16 Tool Adjuster Relationship Specialty Start Date End Date Vadim Deras MD [address] [place] [address] PCP - General Internal Medicine 07/23/16 Tool Adjuster Relationship Specialty Start Date End Date Vadim Deras MD [address] [place] [address] PCP - General Internal Medicine 07/23/16 Tool Adjuster Relationship Specialty Start Date End Date Vadim Deras MD [address] [place] [address] PCP - General Internal Medicine 07/23/16 Tool Adjuster Relationship Specialty Start Date End Date Vadim Deras MD [address] [place] [address] PCP - General Internal Medicine 07/23/16 Tool Adjuster Relationship Specialty Start Date End Date Vadim Deras MD [address] [place] [address] PCP - General Internal Medicine 07/23/16 Team [...] Active Dr. Gordon Hill DO Attending Provider, Emergency P марина Active Team Status: Inactive Member Role Status Dates Dr. Vadim Deras MD Primary Care Provider Active Dr. Mirian Farris , Admit Provider, Attend ing Provider Active Tool Adjuster Relationship Specialty Start Date End Date Vadim Deras MD [address] [facility] [place] [address] PCP - General Internal Medicine 07/23/16 Tool Adjuster Relationship Specialty Start Date End Date Vadim Deras MD [address] [facility] [place] [address] PCP - General Internal Medicine 07/23/16 Tool Adjuster Relationship Specialty Start Date End Date Vadim Deras MD [address] [facility] [place] [address] PCP - General Internal Medicine 07/23/16 Tool Adjuster Relationship Specialty Start Date End Date Vadim Deras MD [address] [facility] [place] [address] PCP - General Internal Medicine 07/23/16 Team Status: Inactive Member Role Status Dates Dr. Vadim Deras MD Primary Care Provider Active [facility] Attending Provider Acti ve Team Status: [...] LITTLEJOHN MD Attending Provider, Referring Provider Active Tool Adjuster Relationship Specialty Start Date End Date Vadim Deras MD [address] [facility] [place] [address] PCP - General Internal Medicine 07/23/16 Tool Adjuster Relationship Specialty Start Date End Date Vadim Deras MD [address] [facility] [place] [address] PCP - General Internal Medicine 07/23/16 Tool Adjuster Relationship Specialty Start Date End Date Vadim Deras MD [address] [place] [address] PCP - General Internal Medicine 07/23/16 Tool Adjuster Relationship Specialty Start Date End Date Vadim Deras MD [address] [facility] [place] [address] PCP - General Internal Medicine 07/23/16 Tool Adjuster Relationship Specialty Start Date End Date Vadim Deras MD [address] [facility] [place] [address] PCP - General Internal Medicine 07/23/16 Tool Adjuster Relationship Specialty Start Date End Date Vadim Deras MD [address] [facility] [place] [address] PCP - General Internal Medicine 07/23/16 Tool Adjuster Relationship Specialty Start Date End Date Vadim Deras MD [address] [place] [address] PCP - General Internal Medicine 07/23/16 Tool Adjuster Relationship Specialty Start Date End Date Vadim Deras MD [address] [facility] [place] [address] PCP - General Internal Medicine 07/23/16 Tool Adjuster Relationship Specialty Start Date End Date Vadim Deras MD [address] [facility] [place] [address] PCP - General Internal Medicine 07/23/16 Tool Adjuster Relationship Specialty Start Date End Date Vadim Deras MD [address] [facility] [place] [address] PCP - General Internal Medicine 07/23/16 Tool Adjuster Relationship Specialty Start Date End Date Vadim Deras MD [address] [facility] [place] [address] PCP - General Internal Medicine 07/23/16 Tool Adjuster Relationship Specialty Start Date End Date Vadim Deras MD [address] [facility] [place] [address] PCP - General Internal Medicine 07/23/16 Tool Adjuster Relationship Specialty Start Date End Date Vadim Deras MD [address] [facility] [place] [address] PCP - General Internal Medicine 07/23/16 Delicia Kaye, HOG STOMACH PREPARER.WHARF TENDER HELPER [address] [facility] [place] [address] Rubber Production Machine Operator Internal Medicine 06/08/24 Tool Adjuster Relationship Specialty Start Date End Date Vadim Deras MD [address] [place] [address] PCP - General Internal Medicine 07/23/16 Delicia Kaye, HOG STOMACH PREPARER.WHARF TENDER HELPER [address] [place] [address] Rubber Production Machine Operator Internal Medicine 06/08/24 Tool Adjuster Relationship Specialty Start Date End Date Vadim Deras MD [address] [place] [address] PCP - General Internal Medicine 07/23/16 Delicia Kaye, HOG STOMACH PREPARER.WHARF TENDER HELPER [address] [place] [address] Rubber Production Machine Operator Internal Medicine 06/08/24 Tool Adjuster Relationship Specialty Start Date End Date Vadim Deras MD [address] [place] [address] PCP - General Internal Medicine 07/23/16 Delicia Kaye, HOG STOMACH PREPARER.WHARF TENDER HELPER [address] [place] [address] Rubber Production Machine Operator Internal Medicine 06/08/24 Tool Adjuster Relationship Specialty Start Date End Date Vadim Deras MD [address] [place] [address] PCP - General Internal Medicine 07/23/16 Delicia Kaye, HOG STOMACH PREPARER.WHARF TENDER HELPER [address] [facility] [address] Rubber Production Machine Operator Internal Medicine 06/08/24 Team Status: Active Member [...] BE BASED ON THE PRIMARY CLINICAL RECORDS. [facility] [employer] provides no warranty or guarantee of the accuracy or completeness of information in this document.
[2025-02-12 07:13] LABS: Hematocrit 40.7 % (40-54); Hemoglobin 13.4 g/dL (13.0-16.5); Mean Corp Hgb Conc 32.9 g/dL (32-36); Mean Corpuscular Volume 91.9 fL (80-94); Mean Platelet Vol. 11.9 fl (6.2-12.0); Platelet Count 100 K/mm3 (150-450); RBC Distribution Width CV 14.0 % (11.6-14.6); RBC Distribution Width SD 47.3 fl (35.1-43.9); Red Blood Count 4.43 M/mm3 (4.6-6.2); White Blood Count 4.3 K/mm3 (4.4-11.0)
[2025-02-12 07:34] LABS: Anion Gap 11 (5-15); BUN 21 mg/dL (4-19); BUN/Creat Ratio 22.6 RATIO (10-20); Calcium,Total 9.3 mg/dL (7.6-11.0); Carbon Dioxide 25.4 mmol/L (21.0-32.0); Chloride 102 mmol/L (98-108); Glucose 87 mg/dL (70-99); Potassium 4.0 mmol/L (3.3-5.1)
== END ==
LOC: OLS.SWAL 05:00
PROVIDERS: PCP Internal Medicine; Visit Provider Internal Medicine
DX: E78.00 Pure hypercholesterolemia, unspecified (principal)
CPT/HCPCS: 36415; 80048; 85027

== ENCOUNTER → 2025-02-19 | Outpatient (REF) | payer MEDICARE, MEDICAID, SELFPAY ==
--- OUTSIDE RECORDS SUMMARY | 2025-02-19 03:06 | XMS RPT_ITS | CCD ---
Author Organization [facility] ion [facility] Care Team Providers Care Manager Cardiovascular Name Role Phone Vadim Deras MD Primary Care Provider Braeden, Dr. Fierro Primary Care Provider Kaleigh, Dr. Mirian Mccall Admit Provider Semenkirill, Dr. Mirian Mccall Attending Provider Kaleigh, Dr. Mirian Mccall Other Provider Vadim Deras MD Primary Care Provider Vadim Deras MD Primary Care Provider [phone] BONIFACIO VALDEZ Attending Unavailable VADIM DERAS Primary [...] Brice Referring Unavailable DEMETRIO GILL Attending Unavailable DERAS, [...] Provider Heather RICH, Dr. Almodovar Attending Provider UnavailKelton Lazaro MD Referring Provider Kelton Valdivia MD Emergency Provider Kendall Dwoling Attending Unavailable Jon Arce Admitting Unavailable Jon Arce Consulting Unavailable Braeden, Vadim Primary Care Unavailable Elroy Nunez Consulting Unavailable Kendall Dowling Consulting Unavailable Jon Arce Admitting Unavailable Jon Arce Attending Unavailable Jon Arce Consulting Unavailable Braeden, Vadim Primary Care Unavailable Elroy Nunez Attending Unavailable Nishi Mccracken Referring Unavailable Angdla Nishi LITTLEJOHN Attending Unavailable Braeden, Vadim Primary Care Unavailable Ton, Preston Chi Consulting Unavailable Ton, Preston Chi Admitting Unavailable Mirian Farris Attending Unavaila ble Braeden, Vadim Primary Care Unavailable Pierre Mcgee Attending Unavailbecca Deras, Vadim Primary Care Unavailable Kelton Valdivia Referring Unavailable Kelton Valdivia Attending Unavailable Deras, Vadim Primary Care Unavailable Angdla Nishi LITTLEJOHN Referring Unavailable Deras, Vadim Primary Care Unavailable Gudla Nishi LITTLEJOHN Attending Unavailable Nishi Mccracken Attending Unavailable Deras, Vadim Primary Care Unavailable Nishi Mccracken Attending Unavailable Braeden, Vadim Primary Care Unavailable Kendall Dowling Attending Unavailable Jon Arce Admitting Unavailable Jon Arce Consulting Unavailable Deras, Victor Primary Care Unavailable Elroy Nunez Consulting Unavailable Preston Camilo Chi Attending Unavailable Preston Camilo Chi Admitting Unavailable Vadim Deras Primary Care Unavailable Nishi Mccracken Attending Unavailable Vadim Deras Primary Care Unavailable Kenneya OLS, Nishi Attending Unavailable Vadim Deras Primary Care Unavailable Kenneya OLSYunielNishi Attending Unavailable Vadim Deras Primary Care Unavailable Gudla OLS, Nishi Referring Unavailable Kenneya OLS, Nishi Attending Unavailable Vadim Deras Primary Care Unavailable Allergies Allergy Classification Reported Allergen(s) Allergy Type Date of Onset Reaction(s) Facility (20 sources) Clearasil Maximum Strength; Translations: [CLEARASIL MAXIMUM STRENGTH] Drug Intolerance 9 Swelling [facility] Work Phone: (5 sources) Salicylic Acid Drug Allergy 3 Swelling [facility] Comment on above: clearasil (20 sources) HMG-CoA reductase inhibitor; Translations: [ZXHIUXK-EEN-ZQD REDUCTASE INHIBITORS] Drug Intolerance 4 Myalgia [facility] Work Phone: (1 source) Salicylic Acid Drug Allergy 5 [facility] Repository Medications Current Medications Medication Drug Class(es) [...] 1:00am July 16, 2023 9:14pm On Hold: Ordered Comment on above: Take 1 tablet by [...] Active docusate sodium 50 mg / sennosides, assisted 8.6 mg oral tablet (8 sources) Start: Sennosides-Docusate Sodium (Stimulant Laxative Plus) 8.6-50 mg Tablet Active 2 {tbl} PO TWICE A DAY May 29, 2024 1:00am take 1 capsule by [facility] twice daily at bedtime for constipation sennosides-docusate [...] Comment on above: Take 1 tablet by [facility] once daily. Food Supplemt, Lactose-Reduced (Ensure [...] Comment on above: Take 1 capsule by [facility] once daily. lactobacillus acidophilus 1.5 mg oral capsule (20 sources) Start: 06-27-2023 Lactobacillus Acidophilus (Probiotic Acidophilus) 250 million cell capsule Active 500 NMA PO DAILY June 27, 2023 1:00am End: 08-23-2023 Lactobacillus acidophilus (P ROBIOTIC) 10 billion cell cap Take 1 capsule by mouth. 0 08/23/2023 Discontinued Comment on above: Take by mouth. Take 1 capsule by [facility]. lisinopril 40 mg oral tablet (20 sources) [...] mg Tablet Discontinued 100 mg PO DAILY July 16, 2023 1:00am May 19, 2024 10:51am melatonin 3 mg oral tablet (20 sources) Start: 08-23-2023 take 1 tablet by mouth once daily at bedtime melatonin 3 mg tablet Take 1 tablet by mouth daily at bedtime. 08/23/2023 Active Start: 06-21-2023 take 1 capsule by mo [facility] once daily Melatonin 3 mg capsule Active [...] Discontinued (Lack of Efficacy) polyethylene glycol 3350 81596 mg powder for oral solution (4 sources) Osmotic Laxative Start: 07-16-19 End: 05-15-20 take 17 g by mouth once daily Polyethylene Glycol 3350 17 gram Powder In Packet Discontinued 17 g PO DAILY July 16, 2023 1:00am May 15, 2024 [...] tablet by andrew th at bedtime sennosides, assisted 8.6 mg oral capsule (9 sources) Start: [...] Range Facility Basic Metabolic Profile (BMP )on 02-12-2025 BUN/CRE 22.6 RATIO High 04-19 [facility] Comment on above: Order Comment: 119-1 Performed By: #### L 100.0500, L500.2500 ####[facility] [address] [place], [address] Calcium [Mass/Vol] 9.3 mg/dL Normal 7.6-11.0 [facility] Comment on above: Order Comment: 119-1 Performed By: #### L 100.0500, L500.2500 ####[facility] [address] [place], [address] Chloride [Moles/Vol] 102 mmol/L Normal 98-108 [facility] Comment on above: Order Comment: 119-1 Performed By: #### L 100.0500, L500.2500 ####[facility] [address] [place], [address] CO2 [Moles/Vol] 25.4 mmol/L Normal 21.0-32.0 [facility] Comment on above: Order Comment: 119-1 Performed By: #### L 100.0500, L500.2500 ####[facility] [address] [place], [address] Creatinine [Mass/Vol] 0.95 mg/dL Normal 0.70-1.20 [facility] Comment on above: Order Comment: 119-1 Performed By: #### L 100.0500, L500.2500 ####[facility] [address] [place], [address] GAP 11 Normal 5-15 [facility] Comment on above: Order Comment: 119-1 Performed By: #### L 100.0500, L500.2500 ####[facility] [address] [place], [address] GFR/1.73 sq M.predicted among non-blacks MDRD (S/P/Bld) [Vol rate/Area] 77 mL/min/{1.73_m2} Normal >60 [facility] Comment on above: Order Comment: 119-1 Result Comment: mL/m in/1.73m2 CKD-EPI Creatinine Equation (2020) Performed By: #### L 100.0500, L500.2500 ####[facility] [address] [place], [address] Glucose [Mass/Vol] 87 mg/dL Normal 70-99 [facility] Comment on above: Order Comment: 119-1 Performed By: #### L 100.0500, L500.2500 ####[facility] [address] [place], [address] Potassium [Moles/Vol] 4.0 mmol/L Normal 3.3-5.1 [facility] Comment on above: Order Comment: 119-1 Performed By: #### L 100.0500, L500.2500 ####[facility] [address] [place], [address] Sodium [Moles/Vol] 138 mmol/L Normal 133-145 [facility] Comment on above: Order Comment: 119-1 Performed By: #### L 100.0500, L500.2500 ####[facility] [address] [place], [address] Urea nitrogen [Mass/Vol] 21 mg/dL High 4-19 [facility] Comment on above: Order Comment: 119-1 Performed By: #### L 100.0500, L500.2500 ####[facility] [address] [place], [address] CBC-Complete Blood Cnt No Di ffon 02-12-2025 Erythrocyte distribution width (RBC) [Ratio] 14.0 % Normal 11.6-14.6 [facility] Comment on above: Order Comment: 119-1 Performed By: #### L 100.0500, L500.2500 ####[facility] [address] [place], [address] Hematocrit (Bld) [Volume fraction] 40.7 % Normal 40-54 [facility] Comment on above: Order Comment: 119-1 Performed By: #### L 100.0500, L500.2500 ####[facility] [address] [place], [address] Hemoglobin (Bld) [Mass/Vol] 13.4 g/dL Normal 13.0-16.5 [facility] Comment on above: Order Comment: 119-1 Performed By: #### L 100.0500, L500.2500 ####[facility] [address] [place], [address] MCH (RBC) [Entitic mass] 30.2 pg Normal 27.0-32.0 [facility] Comment on above: Order Comment: 119-1 Performed By: #### L 100.0500, L500.2500 ####[facility] [address] [place], [address] MCHC (RBC) [Mass/Vol] 32.9 g/dL Normal 32-36 [facility] Comment on above: Order Comment: 119-1 Performed By: #### L 100.0500, L500.2500 ####[facility] [address] [place], [address] MCV (RBC) [Entitic vol] 91.9 fL Normal 80-[address] [facility] Comment on above: Order Comment: 119-1 Performed By: #### L 100.0500, L500.2500 ####[facility] [address] [place], [address] Platelet mean volume (Bld) [Entitic vol] 11.9 fL Normal 6.2-12.0 [facility] Comment on above: Order Comment: 119-1 Performed By: #### L 100.0500, L500.2500 ####[facility] [address] [place], [address] Platelets (Bld) [#/Vol] 100 10*3/uL Low 150-450 [facility] Comment on above: Order Comment: 119-1 Performed By: #### L 100.0500, L500.2500 ####[facility] [address] [place], [address] RBC (Bld) [#/Vol] 4.43 10*6/uL Low 4.6-6.2 [facility] Comment on above: Order Comment: 119-1 Performed By: #### L 100.0500, L500.2500 ####[facility] [address] [place], [address] RDW SD 47.3 fl High 35.1-43.9 [facility] Comment on above: Order Comment: 119-1 Performed By: #### L 100.0500, L500.2500 ####[facility] [address] [place], [address] WBC (Bld) [#/Vol] 4.3 10*3/uL Low 4.4-11.0 [facility] Comment on above: Order Comment: 119-1 Performed By: #### L 100.0500, L500.2500 ####[facility] [address] [place], [address] Basic Metabolic Profile (BMP )on 02-11-2025 BUN Normal 4-19 [facility] Comment on above: Order Comment: 119 Result Comment: LABS NOT DUE TIL 815/25 PER JOSE MANUEL Performed By: #### L 100.0500, L500.2500 #### [facility] [address] [place], [address] BUN/CRE Normal 10-20 [facility] Comment on above: Order Comment: 119 Result Comment: LABS NOT DUE TIL 815/25 PER JOSE MANUEL Performed By: #### L 100.0500, L500.2500 #### [facility] [address] [place], [address] Calcium Normal 7.6-11.0 [facility] Comment on above: Order Comment: 119 Result Comment: LABS NOT DUE TIL 815/25 PER JOSE MANUEL Performed By: #### L 100.0500, L500.2500 #### [facility] [address] [place], [address] CL Normal 98-108 [facility] Comment on above: Order Comment: 119 Result Comment: LABS NOT DUE TIL 815/25 PER JOSE MANUEL Performed By: #### L 100.0500, L500.2500 #### [facility] [address] [place], [address] CO2 Normal 21.0-32.0 [facility] Comment on above: Order Comment: 119 Result Comment: LABS NOT DUE TIL 815/25 PER JOSE MANUEL Performed By: #### L 100.0500, L500.2500 #### [facility] [address] [place], [address] CREAT,SERUM Normal 0.70-1.20 [facility] Comment on above: Order Comment: 119 Result Comment: LABS NOT DUE TIL 815/25 PER JOSE MANUEL Performed By: #### L 100.0500, L500.2500 #### [facility] [address] [place], [address] eGFR Normal >60 [facility] Comment on above: Order Comment: 119 Result Comment: LABS NOT DUE TIL 815/25 PER JOSE MANUEL Performed By: #### L 100.0500, L500.2500 #### [facility] [address] [place], [address] GAP Normal 5-15 [facility] Comment on above: Order Comment: 119 Result Comment: LABS NOT DUE TIL 815/25 PER JOSE MANUEL Performed By: #### L 100.0500, L500.2500 #### [facility] [address] [place], [address] GLU Normal 70-99 [facility] Comment on above: Order Comment: 119 Result Comment: LABS NOT DUE TIL 815/25 PER JOSE MANUEL Performed By: #### L 100.0500, L500.2500 #### [facility] [address] [place], [address] Potassium Normal 3.3-5.1 [facility] Comment on above: Order Comment: 119 Result Comment: LABS NOT DUE TIL 815/25 PER JOSE MANUEL Performed By: #### L 100.0500, L500.2500 #### [facility] [address] [place], [address] Basic Metabolic Profile (BMP) Normal 133-145 [facility] Comment on above: Order Comment: 119 Result Comment: LABS NOT DUE TIL 815/25 PER JOSE MANUEL Performed By: #### L 100.0500, L500.2500 #### [facility] [address] [place], [address] CBC-Complete Blood Cnt No Di ffon 02-11-2025 HCT Normal 40-54 [facility] Comment on above: Order Comment: 119 Result Comment: LABS NOT DUE TIL 815/25 PER JOSE MANUEL Performed By: #### L 100.0500, L500.2500 #### [facility] [address] [place], [address] HGB Normal 13.0-16.5 [facility] Comment on above: Order Comment: 119 Result Comment: LABS NOT DUE TIL 815/25 PER JOSE MANUEL Performed By: #### L 100.0500, L500.2500 #### [facility] [address] [place], [address] MCH Normal 27.0-32.0 [facility] Comment on above: Order Comment: 119 Result Comment: LABS NOT DUE TIL 815/25 PER JOSE MANUEL Performed By: #### L 100.0500, L500.2500 #### [facility] [address] [place], [address] MCHC Normal 32-36 [facility] Comment on above: Order Comment: 119 Result Comment: LABS NOT DUE TIL 815/25 PER JOSE MANUEL Performed By: #### L 100.0500, L500.2500 #### [facility] [address] [place], [address] MCV Normal 80-94 [facility] Comment on above: Order Comment: 119 Result Comment: LABS NOT DUE TIL 815/25 PER JOSE MANUEL Performed By: #### L 100.0500, L500.2500 #### [facility] [address] [place], [address] PLT Normal 150-450 [facility] Comment on above: Order Comment: 119 Result Comment: LABS NOT DUE TIL 815/25 PER JOSE MANUEL Performed By: #### L 100.0500, L500.2500 #### [facility] [address] [place], [address] RBC Normal 4.6-6.2 [facility] Comment on above: Order Comment: 119 Result Comment: LABS NOT DUE TIL 815/25 PER JOSE MANUEL Performed By: #### L 100.0500, L500.2500 #### [facility] [address] [place], [address] RDW CV Normal 11.6-14.6 [facility] Comment on above: Order Comment: 119 Result Comment: LABS NOT DUE TIL 815/25 PER JOSE MANUEL Performed By: #### L 100.0500, L500.2500 #### [facility] [address] [place], [address] RDW SD Normal 35.1-43.9 [facility] Comment on above: Order Comment: 119 Result Comment: LABS NOT DUE TIL 815/25 PER JOSE MANUEL Performed By: #### L 100.0500, L500.2500 #### [facility] [address] [place], [address] WBC Normal 4.4-11.0 [facility] Comment on above: Order Comment: 119 Result Comment: LABS NOT DUE TIL 815/25 PER JOSE MANUEL Performed By: #### L 100.0500, L500.2500 #### [facility] [address] [place], [address] Basic Metabolic Profile (BMP )on 12-23-2024 BUN/CRE 23.3 RATIO High 10-20 [facility] Comment on above: Order Comment: 119 Performed By: #### L 500.2500, L100.0500 #### [facility] [address] [place], [address] Calcium [Mass/Vol] 8.9 mg/dL Normal 7.6-11.0 [facility] Comment on above: Order Comment: 119 Performed By: #### L 500.2500, L100.0500 #### [facility] [address] [place], [address] Chloride [Moles/Vol] 99 mmol/L Normal 98-108 [facility] Comment on above: Order Comment: 119 Performed By: #### L 500.2500, L100.0500 #### [facility] [address] [place], [address] CO2 [Moles/Vol] 28.4 mmol/L Normal 21.0-32.0 [facility] Comment on above: Order Comment: 119 Performed By: #### L 500.2500, L100.0500 #### [facility] [address] [place], [address] Creatinine [Mass/Vol] 0.88 mg/dL Normal 0.70-1.20 [facility] Comment on above: Order Comment: 119 Performed By: #### L 500.2500, L100.0500 #### [facility] [address] [place], [address] GAP 9 Normal 5-15 [facility] Comment on above: Order Comment: 119 Performed By: #### L 500.2500, L100.0500 #### [facility] [address] [place], [address] GFR/1.73 sq M.predicted among non-blacks MDRD (S/P/Bld) [Vol rate/Area] 83 mL/min/{1.73_m2} Normal >60 [facility] Comment on above: Order Comment: 119 Result Comment: mL/m in/1.73m2 CKD-EPI Creatinine Equation (2020) Performed By: #### L 500.2500, L100.0500 #### [facility] [address] [place], [address] Glucose [Mass/Vol] 97 mg/dL Normal 70-99 [facility] Comment on above: Order Comment: 119 Performed By: #### L 500.2500, L100.0500 #### [facility] [address] [place], [address] Potassium [Moles/Vol] 3.9 mmol/L Normal 3.3-5.1 [facility] Comment on above: Order Comment: 119 Performed By: #### L 500.2500, L100.0500 #### [facility] [address] [place], [address] Sodium [Moles/Vol] 137 mmol/L Normal 133-145 [facility] Comment on above: Order Comment: 119 Performed By: #### L 500.2500, L100.0500 #### [facility] [address] [place], [address] Urea nitrogen [Mass/Vol] 21 mg/dL High 4-19 [facility] Comment on above: Order Comment: 119 Performed By: #### L 500.2500, L100.0500 #### [facility] [address] [place], [address] CBC W/Diff, Automatedon 06-2 PLT EST MOD DEC Normal ADEQ [facility] Comment on above: Order Comment: 119 Performed By: #### L 500.2500, L100.0500 #### [facility] [address] [place], [address] SMEAR COMMENT SCANNED Normal [facility] Comment on above: Order Comment: 119 Performed By: #### L 500.2500, L100.0500 #### [facility] [place], [address] [facility] DEN[facility]UM[facility] ([id number]) 1935 M Date Time Provider Department 12/09/24 [...] MD. Genitourinary Medicine and Men's Health Staff. [facility] [place] [facility] Allergies As of Date: 12/09/2024 Noted Allergy Reaction [id number] REDUCTASE INHIBIT*08/23/2023 17 - Myalgia Comments: Weakess, [...] Encounter Status:Closed by DEMETRIO GILL on 12/09/24 [facility] Brain/Head without Contrasto n 11-30-2024 Brain/Head without Contrast [facility] [address] [place] [address] [id number] Brain/Head without Contrast MR#: [id number] Acct: [id number] Name: DENIZ KUMAR Rep #: [id number] : 1935 M 89 From: Richa Richey PCP: Dr. Vadim Deras MD Status: REG ER Study: Brain/Head without Contrast Date of Exam: 08/25 Exam# [id number] Ordering Dr: Kelton Valdivia MD ADDENDUM by Dr. Richa Conti MD on 11/30/[address] Valdivia was notified by Richa Conti at 3:15pm EST on 11/30/24 Reading Location: [id number] 11/30/24 1533 Date cc: Dr. Kelton Valdivia [...] air cells may reflect mastoiditis. Reading Location: [facility] CC: Dr. Kelton Valdivia MD; Dr. Vadim Deras MD 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: Signed Normal [facility] Emergency Department Summary on 11-30-2024 Emergency Department Summary [facility] Medical Records Department [address] [place] [address] Emergency Department Summary 11/30/24 MR#: [id number] Acct: [id number] Name: DENIZ KUMAR Rep #: [id number] : 1935 89 From: Kelton Valdivia MD [...] consciousness. No other injuries. Tetanus Immunization: Unknown [facility] Medical History Insomnia Elevated troponin Spinal stenosis [...] be o (more content not included)... Normal [facility] Spine Cervical without Contr ason 11-30-2024 Spine Cervical without Contras [facility] [address] [place] [address] Spine Cervical without Contras MR#: [id number] Acct: [id number] Name: DENIZ KUMAR Rep #: [id number] : 1935 M 89 From: Richa Richey PCP: Dr. 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 Reading Location: [facility] CC: Dr. Kelton Valdivia MD; Dr. Vadim Deras MD 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: Signed Normal [facility] Urine Cultureon 11-29-2024 [facility] 119 Staphylococcus aureus [place] Count >100,000 Staphylococcus aureus: REACTION cefOXitin Susc Islt Doxycycline Islt CHELA <=0.5 S Clindamycin.induced Susc Islt NEG Gentamicin Islt CHELA <=0.5 S Linezolid Islt CHELA 2 S Moxifloxacin Islt CHELA <=0.25 S Nitrofurantoin Islt CHELA <=16 S Oxacillin Susc Islt <=0.25 S Tetracycline Islt CHELA <=1 S TMP SMX Islt CHELA <=10 S Vancomycin Islt CHELA <=0.5 S Normal [facility] Comment on above: Performed By: #### L 500.2500, L100.0500 #### [facility] Laboratory [address] [place], [address] Anion gap in Serum or Plasma Ordered By: Nishi Romero on 11-27-2024 Anion gap [Moles/Vol] 9 mmol/L - [facility] BUN/creatinine ratioOrdered By: Nishi Romero on 11-27-2024 Urea nitrogen/Creatinine [Mass ratio] 26.6 mg/mg High - [facility] Basic Metabolic Profile (BMP )on 11-27-2024 BUN/CRE 26.6 RATIO High 04-19 [facility] Comment on above: Order Comment: 119 Performed By: #### L 500.2500, L100.0500 #### [facility] Laboratory [address] [place], [address] Calcium [Mass/Vol] 9.1 mg/dL Normal 7.6-11.0 [facility] Comment on above: Order Comment: 119 Performed By: #### L 500.2500, L100.0500 #### [facility] Laboratory [address] [place], [address] Chloride [Moles/Vol] 103 mmol/L Normal 98-108 [facility] Comment on above: Order Comment: 119 Performed By: #### L 500.2500, L100.0500 #### [facility] Laboratory [address] [place], [address] CO2 [Moles/Vol] 25.3 mmol/L Normal 21.0-32.0 [facility] Comment on above: Order Comment: 119 Performed By: #### L 500.2500, L100.0500 #### [facility] Laboratory [address] [place], [address] Creatinine [Mass/Vol] 0.91 mg/dL Normal 0.70-1.20 [facility] Comment on above: Order Comment: 119 Performed By: #### L 500.2500, L100.0500 #### [facility] Laboratory [address] [place], [address] GAP 9 Normal 5-15 [facility] Comment on above: Order Comment: 119 Performed By: #### L 500.2500, L100.0500 #### [facility] Laboratory [address] [place], [address] GFR/1.73 sq M.predicted among non-blacks MDRD (S/P/Bld) [Vol rate/Area] 81 mL/min/{1.73_m2} Normal >60 [facility] Comment on above: Order Comment: 119 Result Comment: mL/m in/1.73m2 CKD-EPI Creatinine Equation (2020) Performed By: #### L 500.2500, L100.0500 #### [facility] Laboratory [address] [place], [address] Glucose [Mass/Vol] 81 mg/dL Normal 70-99 [facility] Comment on above: Order Comment: 119 Performed By: #### L 500.2500, L100.0500 #### [facility] Laboratory [address] [place], [address] Potassium [Moles/Vol] 4.0 mmol/L Normal 3.3-5.1 [facility] Comment on above: Order Comment: 119 Performed By: #### L 500.2500, L100.0500 #### [facility] Laboratory [address] [place], [address] Sodium [Moles/Vol] 137 mmol/L Normal 133-145 [facility] Comment on above: Order Comment: 119 Performed By: #### L 500.2500, L100.0500 #### [facility] Laboratory [address] [place], [address] Urea nitrogen [Mass/Vol] 24 mg/dL High 4-19 [facility] Comment on above: Order Comment: 119 Performed By: #### L 500.2500, L100.0500 #### [facility] Laboratory [address] [place], [place], [id number] Carbon dioxide, total [Moles /volume] in Central venous bloodOrdered By: Nishi Romero on 11-27-2024 CO2 [Moles/Vol] 25.3 mmol/L 21.0-32.0 [facility] Chloride assayOrdered By: Marlon Romero on 11-27-2024 Chloride [Moles/Vol] 103 mmol/L 98-108 [facility] Glomerular filtration rate ( GFR) estimation/1.73 sq m using serum, plasma, or whole bOrdered By: Nishi Romero on 11-27-2024 GFR/1.73 sq M.predicted among non-blacks MDRD (S/P/Bld) [Vol rate/Area] 81 mL/min/{1.73_m2} >60 [facility] Comment on above: mL/min/1.73m2 CKD-EP I Creatinine Equation (2020) Potassium measurement (mass/ volume)Ordered By: Nishi Romero on 11-27-2024 Potassium (Unsp spec) [Mass/Vol] 4.0 mmol/L 3.3-5.1 [facility] Serum creatinine measurement (mass/volume)Ordered By: Nishi Romero on 11-27-2024 Creatinine [Mass/Vol] 0.91 mg/dL 0.70-1.20 [facility] Serum glucose measurement (m ass/volume)Ordered By: Nishi Romero on 11-27-2024 Glucose [Mass/Vol] 81 mg/dL 70-99 [facility] Serum or plasma calcium sharon urement (mass/volume)Ordered By: Nishi Romero on 11-27-2024 Calcium [Mass/Vol] 9.1 mg/dL 7.6-11.0 [facility] Serum or plasma urea nitroge n measurement (mass/volume)Ordered By: Nishi Romero on 11-27-2024 Urea nitrogen [Mass/Vol] 24 mg/dL High 4-19 [facility] Sodium levelOrdered By: Evelyn Romero on 11-27-2024 Sodium [Moles/Vol] 137 mmol/L 133-145 [facility] Urinalysis, Completeon 11-27 RBC > 100 SEEN Normal 0-5 [facility] Comment on above: Order Comment: 119CL ROYER CATCH Performed By: #### L 500.2500, L100.0500 #### [facility] Laboratory [address] [place], [address] WBC 10-25 SEEN Normal 0-5 [facility] Comment on above: Order Comment: 119CL ROYER CATCH Performed By: #### L 500.2500, L100.0500 #### [facility] Laboratory [address] [place], [address] BACTERIA 0 SEEN Normal None Seen [facility] Comment on above: Order Comment: 119CL ROYER CATCH Performed By: #### L 500.2500, L100.0500 #### [facility] Laboratory [address] [place], [address] EPI,SQUAMOUS 0 SEEN Normal 0-5 [facility] Comment on above: Order Comment: 119CL ROYER CATCH Performed By: #### L 500.2500, L100.0500 #### [facility] Laboratory [address] [place], [address] Mucus Ql (Urine sed) 0 SEEN Normal [facility] Comment on above: Order Comment: 119CL ROYER CATCH Performed By: #### L 500.2500, L100.0500 #### [facility] Laboratory [address] [place], [address] Bilirubin Test strip Ql (U)O rdered By: Nishi Romero on 11-26-2024 Bilirubin Ql (U) Negative Negative [facility] Ketones Test strip Ql (U)Ord ered By: Nishi Romero on 11-26-2024 Ketones Ql (U) Negative Negative [facility] Microscopic analysis of urin e for red blood cells (RBC)Ordered By: Nishi Romero on 11-26-2024 Microscopic analysis of urine for red blood cells (RBC) > 100 SEEN /hpf 0-5 [facility] Mucus LM Ql (Urine sed)Order ed By: Nishi Romero on 11-26-2024 Mucus Ql (Urine sed) 0 SEEN /hpf [facility] Nitrite Test strip Ql (U)Ord ered By: Nishi Romero on 11-26-2024 Nitrite Ql (U) Negative Negative [facility] Protein Test strip Ql (U)Ord ered By: Nishi Romero on 11-26-2024 Protein Ql (U) 100 mg/dl High Negative [facility] Squamous epithelial cells de tection in urine sediment by light microscopyOrdered By: Nishi Romero on 11-26-2024 Epithelial cells.squamous LM Ql (Urine sed) 0 SEEN /hpf 0-5 [facility] Urine clarityOrdered By: Yves Romero on 11-26-2024 Clarity (U) Turbid Clear [facility] Urine color determinationOrd ered By: Nishi Romero on 11-26-2024 Color (U) Yellow Yellow [facility] Urine cultureOrdered By: Yves Romero on 11-26-2024 Bacteria identified Cx Nom (U) Staphylococcus aureus Abnormal [facility] Urine glucose detectionOrder ed By: Nishi Romero on 11-26-2024 Glucose Ql (U) Normal mg/dl Normal [facility] Urine leukocyte esterase det ection by dipstickOrdered By: Nishi Romero on 11-26-2024 Leukocyte esterase Test strip Ql (U) 100 /ul High Negative [facility] Urine pHOrdered By: Nishi reese on 11-26-2024 pH (U) 7.0 [pH] 5.0 - 8.0 [facility] Urine sediment bacteria coun t by microscopy (number/high power field)Ordered By: Nishi Romero on 11-26-2024 Bacteria LM.HPF (Urine sed) [#/Area] 0 /[HPF] None Seen [facility] Urine specific gravity measu rementOrdered By: Nishi Romero on 11-26-2024 Specific gravity (U) [Rel density] 1.010 1.002-1.030 [facility] Urine urobilinogen measureme ntOrdered By: Nishi Romero on 11-26-2024 Urobilinogen Ql (U) Normal mg/dl Normal [facility] White blood cell countOrdere d By: Nishi Romero on 11-26-2024 White blood cell count 10-25 SEEN /hpf 0-5 [facility] CNOVon 10-12-2024 CNOV Office Visit (UROLST ) STACYDENIZ ([id number]) 1935 M Date Time Provider Department 10/12/24 10:45 AM DEMETRIO GILL UROLST During your visit today, we recorded the following information about you: Michelle Redd RN 10/12/2024 1:02 PM Signed PVR 0 Demetrio Gill MD 10/12/2024 1:02 PM Signed [facility] MALE PATIENT - HISTORY AND PHYSICAL EXAMINATION PATIENT: Deniz Echavarria Stacy (89 year old) PCP: No [...] mirabegron (M (more content not included)... Normal [facility] UA DIP, URINE (POC)on 2024 BILIRUBIN UA (POCT) Negative Negative [facility] CLARITY UA (POCT) Clear [facility] COLOR UA (POCT) Dark yellow [facility] GLUCOSE UA (POCT) Negative Negative mg/dL [facility] Hemoglobin Ql (U) Negative Negative [facility] Interpretation and review of laboratory results Abnormal [facility] KETONE UA (POCT) Trace Negative mg/dL [facility] LEUKOCYTES UA (POCT) Negative Negative [facility] NITRITE UA (POCT) Negative Negative [facility] PH UA (POCT) 6.5 4.5 - 8.0 [facility] Protein Ql (U) 100 mg/dL Abnormal Negative [facility] SPECIFIC GRAVITY UA (POCT) 1.02 1.005 - 1.030 [facility] UROBILINOGEN UA (POCT) 1 Gema l E.U./dL [facility] Location:[facility], [address], [place], [address] [facility] POINT OF CARE [facility] Absolute lymphocyte countOrd ered By: Nishi Romero on 10-05-2024 Lymphocytes Auto (Unsp spec) [#/Vol] 1.21 10*3/uL 0.83-4.51 [facility] Absolute neutrophil countOrd ered By: Nishi Romero on 10-05-2024 Neutrophils (Bld) [#/Vol] 1.2 10*3/uL Low 2.0-7.7 [facility] Anion gap in Serum or Plasma Ordered By: Nishi Romero on 10-05-2024 Anion gap [Moles/Vol] 10 mmol/L 5-15 [facility] Automated lymphocyte count a s percentage of total leukocytesOrdered By: Nishi Romero on 10-05-2024 Lymphocytes/100 WBC Auto (Unsp spec) 34.3 % 19-41 [facility] BUN/creatinine ratioOrdered By: Nishimichael Romero on 10-05-2024 Urea nitrogen/Creatinine [Mass ratio] 25.3 mg/mg High 10-20 [facility] Basophil percentageOrdered B y: Nishi Romero on 10-05-2024 Basophils/100 WBC (Bld) 0.3 % 0-[address] [facility] Bilirubin, totalOrdered By: Nishi Romero on 10-05-2024 Bilirubin [Mass/Vol] 0.68 mg/dL 0.00-1.30 [facility] CBC W/Diff, Automatedon 04-0 PLT EST SLT DEC Normal ADEQ [facility] Comment on above: Order Comment: 119 Performed By: #### L [id number], [id number], L100.0100, [id number], [id number], [id number] ####[facility] [address] [place], [place], [id number] Carbon dioxide, total [Moles /volume] in Central venous bloodOrdered By: Nishi Romero on 10-05-2024 CO2 [Moles/Vol] 22.4 mmol/L 21.0-32.0 [facility] Chloride assayOrdered By: Marlon Romero on 10-05-2024 Chloride [Moles/Vol] 106 mmol/L 98-108 [facility] Comprehensive Metabolic Prof ilon 10-05-2024 Albumin [Mass/Vol] 3.6 g/dL Normal 3.4-4.8 [facility] Comment on above: Order Comment: 119 Performed By: #### L [id number], [id number], L100.0100, [id number], [id number], [id number] ####[facility] [address] [place], [address] Albumin/Globulin [Mass ratio] 1.4 {ratio} Normal 0.9-2.4 [facility] Comment on above: Order Comment: 119 Performed By: #### L [id number], [id number], L100.0100, [id number], [id number], [id number] ####[facility] [address] [place], [address] ALK PHOS 74 U/L Normal 40-129 [facility] Comment on above: Order Comment: 119 Performed By: #### L [id number], [id number], L100.0100, [id number], [id number], [id number] ####[facility] [address] [place], [address] ALT [Catalytic activity/Vol] 7 U/L Normal <=46 [facility] Comment on above: Order Comment: 119 Performed By: #### L [id number], [id number], L100.0100, [id number], [id number], [id number] ####[facility] [address] [place], [address] AST [Catalytic activity/Vol] 19 U/L Normal <=37 [facility] Comment on above: Order Comment: 119 Performed By: #### L [id number], [id number], L100.0100, [id number], L501.9910, [id number] ####[facility] [address] [place], [address] Bilirubin [Mass/Vol] 0.68 mg/dL Normal 0.00-1.30 [facility] Comment on above: Order Comment: 119 Performed By: #### L [id number], [id number], L100.0100, [id number], L501.9910, L506.1001 ####[facility] [address] [place], [address] BUN/CRE 25.3 RATIO High 10-20 [facility] Comment on above: Order Comment: 119 Performed By: #### L [id number], [id number], L100.0100, [id number], L501.9910, [id number] ####[facility] [address] [place], [address] Calcium [Mass/Vol] 8.9 mg/dL Normal 7.6-11.0 [facility] Comment on above: Order Comment: 119 Performed By: #### L [id number], [id number], L100.0100, [id number], L501.9910, [id number] ####[facility] [address] [place], [address] Chloride [Moles/Vol] 106 mmol/L Normal 98-108 [facility] Comment on above: Order Comment: 119 Performed By: #### L [id number], [id number], L100.0100, [id number], L501.9910, [id number] ####[facility] [address] [place], [address] CO2 [Moles/Vol] 22.4 mmol/L Normal 21.0-32.0 [facility] Comment on above: Order Comment: 119 Performed By: #### L [id number], [id number], L100.0100, [id number], L501.9910, [id number] ####[facility] [address] [place], [address] Creatinine [Mass/Vol] 0.96 mg/dL Normal 0.70-1.20 [facility] Comment on above: Order Comment: 119 Performed By: #### L [id number], [id number], L100.0100, [id number], [id number], [id number] ####[facility] [address] [place], [address] GAP 10 Normal 5-15 [facility] Comment on above: Order Comment: 119 Performed By: #### L [id number], [id number], L100.0100, [id number], [id number], [id number] ####[facility] [address] [place], [address] GFR/1.73 sq M.predicted among non-blacks MDRD (S/P/Bld) [Vol rate/Area] 76 mL/min/{1.73_m2} Normal >60 [facility] Comment on above: Order Comment: 119 Result Comment: mL/m in/1.73m2 CKD-EPI Creatinine Equation (2020) Performed By: #### L [id number], [id number], L100.0100, [id number], L501.9910, [id number] ####[facility] [address] [place], [address] Globulin (S) [Mass/Vol] 2.5 g/dL Normal 2.2-4.2 [facility] Comment on above: Order Comment: 119 Performed By: #### L [id number], [id number], L100.0100, [id number], L501.9910, [id number] ####[facility] [address] [place], [address] Glucose [Mass/Vol] 81 mg/dL Normal 70-99 [facility] Comment on above: Order Comment: 119 Performed By: #### L [id number], [id number], L100.0100, [id number], L501.9910, [id number] ####[facility] [address] [place], [address] Potassium [Moles/Vol] 4.2 mmol/L Normal 3.3-5.1 [facility] Comment on above: Order Comment: 119 Performed By: #### L [id number], [id number], L100.0100, [id number], [id number], [id number] ####[facility] [address] [place], [address] Sodium [Moles/Vol] 139 mmol/L Normal 133-145 [facility] Comment on above: Order Comment: 119 Performed By: #### L [id number], [id number], L100.0100, [id number], L501.9910, [id number] ####[facility] [address] [place], [address] T PROT 6.1 g/dL Normal 5.9-8.4 [facility] Comment on above: Order Comment: 119 Performed By: #### L [id number], [id number], L100.0100, [id number], [id number], [id number] ####[facility] [address] [place], [address] Urea nitrogen [Mass/Vol] 24 mg/dL High 4-19 [facility] Comment on above: Order Comment: 119 Performed By: #### L [id number], [id number], L100.0100, L501.9532, L501.9910, [id number] ####[facility] [address] [place], [address] Eosinophil percentageOrdered By: Nishi Romero on 10-05-2024 Eosinophils/100 WBC (Bld) 0.6 % 0-5 [facility] Erythrocyte distribution wid th ratioOrdered By: Nishimichael Romero on 10-05-2024 Erythrocyte distribution width (RBC) [Ratio] 13.7 % 11.6-14.6 [facility] Erythrocyte distribution wid th standard deviationOrdered By: Nishi Romero on 10-05-2024 Erythrocyte distribution width (RBC) [Ratio] 46.7 fl High 35.1-43.9 [facility] Glomerular filtration rate ( GFR) estimation/1.73 sq m using serum, plasma, or whole bOrdered By: Nishi Romero on 10-05-2024 GFR/1.73 sq M.predicted among non-blacks MDRD (S/P/Bld) [Vol rate/Area] 76 mL/min/{1.73_m2} >60 [facility] Comment on above: mL/min/1.73m2 CKD-EP I Creatinine Equation (2020) Hematocrit Auto (Bld) [Volum e fraction]Ordered By: Nishi Romero on 10-05-2024 Hematocrit (Bld) [Volume fraction] 39.8 % Low 40-54 [facility] Hemoglobin measurementOrdere d By: Nishi Romero on 10-05-2024 Hemoglobin (Bld) [Mass/Vol] 13.1 g/dL 13.0-16.5 [facility] Immature granulocytes/100 WB C Auto (Bld)Ordered By: Nishi Romero on 10-05-2024 Immature granulocytes/100 WBC (Bld) 0.800 % 0.0-0.9 [facility] Comment on above: IG% - Immature Granu locytes (promyelocytes, myelocytes and metamyelocytes) > 1% indicates that a LEFT SHIFT is Present. Laboratory - Chemistry and C hemistry - challengeOrdered By: Nishi Romero on 10-05-2024 AST [Catalytic activity/Vol] 19 U/L <38 [facility] MCV (mean corpuscular volume ) determinationOrdered By: Nishi Romero on 10-05-2024 MCV (RBC) [Entitic vol] 92.6 fL 80-[address] [facility] Magnesiumon 10-05-2024 Magnesium [Mass/Vol] 2.1 mg/dL Normal 1.5-2.2 [facility] Comment on above: Order Comment: 119 Performed By: #### L [id number], [id number], L100.0100, [id number], L501.9910, [id number] ####[facility] [address] [place], [address] Magnesium measurement (mass/ volume)Ordered By: Nihsi Romero on 10-05-2024 Magnesium (Unsp spec) [Mass/Vol] 2.1 mg/dL 1.5-2.2 [facility] Mean corpuscular hemoglobin (MCH) determinationOrdered By: Nishi Romero on 10-05-2024 MCH (RBC) [Entitic mass] 30.5 pg 27.0-32.0 [facility] Mean corpuscular hemoglobin concentration (MCHC) determinationOrdered By: Nishi Romero on 10-05-2024 MCHC (RBC) [Mass/Vol] 32.9 g/dL 32-36 [facility] Mean platelet volume determi nationOrdered By: Nishi Romero on 10-05-2024 Platelet mean volume (Bld) [Entitic vol] 12.2 fL High 6.2-12.0 [facility] Monocyte percentageOrdered B y: Nishi Romero on 10-05-2024 Monocytes/100 WBC (Bld) 30.6 % High 0-[address] [facility] Neutrophil percentageOrdered By: Nishi Romero on 10-05-2024 Neutrophils/100 WBC (Bld) 33.4 % Low 47-70 [facility] Nucleated red blood cell per centageOrdered By: Nishi Romero on 10-05-2024 Nucleated RBC/100 WBC (Bld) [Ratio] 0 % 0-5 [facility] PSA,Total - Annual Screenon 10-05-2024 PSA,TOT SCREEN 0.56 ng/mL Normal 0.02-4.00 [facility] Comment on above: Order Comment: 119 Result [...] baseline values. Performed By: #### L [id number], [id number], L100.0100, L501.9520, L501.9910, [id number] ####[facility] [address] [place], [address] Platelet countOrdered By: Marlon Romero on 10-05-2024 Platelets (Bld) [#/Vol] 92 10*3/uL Low 150-[address] [facility] Platelet estimateOrdered By: Nishi Romero on 10-05-2024 Platelets LM Ql (Bld) SLT DEC ADEQ [facility] Potassium measurement (mass/ volume)Ordered By: Nishi Romero on 10-05-2024 Potassium (Unsp spec) [Mass/Vol] 4.2 mmol/L 3.3-5.1 [facility] RBC Auto (Bld) [#/Vol]Ordere d By: Nishi Romero on 10-05-2024 RBC (Bld) [#/Vol] 4.30 10*6/uL Low 4.6-6.2 [facility] Serum creatinine measurement (mass/volume)Ordered By: Nishi Romero on 10-05-2024 Creatinine [Mass/Vol] 0.96 mg/dL 0.70-1.20 [facility] Serum globulin measurementOr dered By: Nishi Romero on 10-05-2024 Globulin (S) [Mass/Vol] 2.5 g/dL 2.2-4.2 [facility] Serum glucose measurement (m ass/volume)Ordered By: Nishi Romero on 10-05-2024 Glucose [Mass/Vol] 81 mg/dL 70-99 [facility] Serum or plasma alanine horan otransferase (ALT) measurementOrdered By: Nishi Romero on 10-05-2024 ALT [Catalytic activity/Vol] 7 U/L <47 [facility] Serum or plasma albumin sharon urement (mass/volume)Ordered By: Nishi Romero on 10-05-2024 Albumin [Mass/Vol] 3.6 g/dL 3.4-4.8 [facility] Serum or plasma albumin/glob ulin mass ratioOrdered By: Nishi Romero on 10-05-2024 Albumin/Globulin [Mass ratio] 1.4 {ratio} 0.9-2.4 [facility] Serum or plasma alkaline liam sphatase measurementOrdered By: Nishi Romero on 10-05-2024 ALP [Catalytic activity/Vol] 74 U/L 40-129 [facility] Serum or plasma calcium sharon urement (mass/volume)Ordered By: Nishi Romero on 10-05-2024 Calcium [Mass/Vol] 8.9 mg/dL 7.6-11.0 [facility] Serum or plasma urea nitroge n measurement (mass/volume)Ordered By: Nishi Romero on 10-05-2024 Urea nitrogen [Mass/Vol] 24 mg/dL High 4-19 [facility] Sodium levelOrdered By: Evelyn Romero on 10-05-2024 Sodium [Moles/Vol] 139 mmol/L 133-145 [facility] TSH DL <= 0.005 mIU/L QnOrde red By: Nishi Romero on 10-05-2024 TSH Qn 1.650 uIU/mL 0.300-4.200 [facility] Thyroid Stim Hormone (TSH)on 10-05-2024 TSH 1.650 uIU/mL Normal 0.300-4.200 [facility] Comment on above: Order Comment: 119 Performed By: #### L [id number], [id number], L100.0100, [id number], L501.9910, [id number] ####[facility] [address] [place], [address] Total proteinOrdered By: Yves Romero on 10-05-2024 Protein [Mass/Vol] 6.1 g/dL 5.9-8.4 [facility] Vitamin D,25 Hydroxyon 10-05 Vitamin D 25-OH 31.6 ng/mL Normal 30-100 [facility] Comment on above: Order Comment: 119 Result Comment: Christie min D Status Deficiency: <20 ng/mL (50nmol/L) Insufficiency: 20-30 ng/mL (50-75 nmol/L) Sufficiency: 30-100 ng/mL (75-250 nmol/L) Toxicity: >100 ng/mL (>250 nmol/L) Performed By: #### L 500.4050, L501.5200, L100.0100, L501.9520, L501.9910, L506.1001 ####[facility] [id number] [place], [address] White blood cell (WBC) count Ordered By: Nishi Romero on 10-05-2024 WBC (Bld) [#/Vol] 3.5 10*3/uL Low 4.4-11.0 [facility] CNPNon 09-28-2024 CNPN Telephone (4CQ) DENIZ KUMAR ([id number]) 1935 M Date Time Provider Department 09/28/24 VADIM DERAS 4CQ During your visit today, we recorded the following information about you: Leanne Kauffman 09/28/2024 11:13 AM Signed Sister Gerri is calling to report patient is now residing at [facility] and seeing their provider, Patient admitted to [facility] at the end of 2023 Gerri received a letter for a missed appointment and was not aware of that appt or she would have called to cancel. Rachel Khalil MA 09/28/2024 12:03 PM Signed Updated chart and removed pcp Rachel Khalil MA Allergies As of Date: 09/28/2024 Noted Allergy Reaction [id number] REDUCTASE INHIBIT*08/23/2023 17 - Myalgia Comments: Weakess, [...] Encounter Status:Closed by RACHEL KHALIL on 09/28/24 [facility] Allison 09-11-2024 SALVATORE Telephone (TOMY) CASGRAIN,PETER B ([id number]) 1935 M Date Time Provider Department 09/11/24 BONIFACIO LEDBETTER JR During your visit today, we recorded the following information about you: Claudia Das OCCA 09/11/2024 10:27 AM Signed Please contact patients sister, Gerri Barnes, at [phone] to assist with scheduling Consult for Urology. Thank you. ADRIAN Hall Kenya Yendia 09/11/2024 1:39 PM Signed 1st attempt lvm Claudia Das OCCA 09/17/2024 7:37 AM Signed In review of appointments, patient has been scheduled with Urology on 10/12/24. ADRIAN Hall Allergies As of Date: 09/11/2024 Noted Allergy Reaction [id number] REDUCTASE INHIBIT*08/23/2023 17 - Myalgia Comments: Weakess, [...] Status:Closed by CLAUDIA DAS on 09/17/24 Normal [facility] CNOVon 09-04-2024 CNOV Office Visit (NEMOWS ) DENIZ KUMAR ([id number]) 1935 M Date Time Provider Department 09/04/24 [...] out. Patient reports biggest problem is an enlarged prostate. Asking for urology consult. Reports nocturia (4-5 [...] Total ( (more content not included)... [facility] Telephone (INTMWS) DENIZ KUMAR ([id number]) 1935 M Date Time Provider Department 08/26/24 VADIM DERAS INTReeseWS During your visit today, we recorded the following information about you: Rosetta Zamorano LPN 08/26/2024 2:48 PM Signed Provider Confirmation Form, Special Supplemental Benefits for the Chronically Ill (SSBCI) completed by Dr. Deras and faxed to [phone]. PCP marking - Meets the defined criteria. Rosetta Zamorano LPN Allergies As of Date: 08/26/2024 Noted Allergy Reaction [id number] REDUCTASE INHIBIT*08/23/2023 17 - Myalgia Comments: Weakess, [...] Status:Closed by ROSETTA ZAMORANO on 08/26/24 Normal [facility] Basic Metabolic Profile (BMP )on 07-13-2024 BUN/CRE 27.2 RATIO High 10-20 [facility] Comment on above: Performed By: #### L 500.2500, L100.0500 #### [facility] [address] [place], [address] CA,Total 8.9 mg/dL Normal 8.5-10.1 [facility] Comment on above: Performed By: #### L 500.2500, L100.0500 #### [facility] [address] [place], [address] Chloride [Moles/Vol] 106 mmol/L Normal 98-107 [facility] Comment on above: Performed By: #### L 500.2500, L100.0500 #### [facility] [address] [place], [address] CO2 [Moles/Vol] 27.0 mmol/L Normal 21.0-32.0 [facility] Comment on above: Performed By: #### L 500.2500, L100.0500 #### [facility] [address] [place], [address] Creatinine [Mass/Vol] 0.88 mg/dL Normal 0.70-1.30 [facility] Comment on above: Result Comment: The validity of the calculated GFR GFRAA in patients over 70 years has not been determined. Clinical correlation is essential. Performed By: #### L 500.2500, L100.0500 #### [facility] [address] [place], [address] EST GFR - AA 105 mL/min Normal >60 [facility] Comment on above: Result Comment: Afri can [place] GFR Calc Performed By: #### L 500.2500, L100.0500 #### [facility] [address] [place], [address] GAP 5 Normal 5-15 [facility] Comment on above: Performed By: #### L 500.2500, L100.0500 #### [facility] [address] [place], [address] GFR/1.73 sq M.predicted among non-blacks MDRD (S/P/Bld) [Vol rate/Area] 87 mL/min/{1.73_m2} Normal >60 [facility] Comment on above: Result Comment: Non- GFR Calc Performed By: #### L 500.2500, L100.0500 #### [facility] [address] [place], [address] Glucose [Mass/Vol] 78 mg/dL Normal 74-106 [facility] Comment on above: Performed By: #### L 500.2500, L100.0500 #### [facility] [address] [place], [address] Potassium [Moles/Vol] 3.7 mmol/L Normal 3.5-5.1 [facility] Comment on above: Performed By: #### L 500.2500, L100.0500 #### [facility] [address] [place], [address] Sodium [Moles/Vol] 138 mmol/L Normal 136-145 [facility] Comment on above: Performed By: #### L 500.2500, L100.0500 #### [facility] [address] [place], [address] Urea nitrogen [Mass/Vol] 24 mg/dL High 7-18 [facility] Comment on above: Performed By: #### L 500.2500, L100.0500 #### [facility] [address] [place], [address] CBC-Complete Blood Cnt No Di ffon 07-13-2024 Erythrocyte distribution width (RBC) [Ratio] 13.6 % Normal 11.6-14.6 [facility] Comment on above: Performed By: #### L 500.2500, L100.0500 #### [facility] [address] [place], [address] Hematocrit (Bld) [Volume fraction] 41.0 % Normal 40-54 [facility] Comment on above: Performed By: #### L 500.2500, L100.0500 #### [facility] [address] [place], [address] Hemoglobin (Bld) [Mass/Vol] 13.4 g/dL Normal 13.0-16.5 [facility] Comment on above: Performed By: #### L 500.2500, L100.0500 #### [facility] [address] [place], [address] MCH (RBC) [Entitic mass] 29.5 pg Normal 27.0-32.0 [facility] Comment on above: Performed By: #### L 500.2500, L100.0500 #### [facility] [address] [place], [address] MCHC (RBC) [Mass/Vol] 32.7 g/dL Normal 32-36 [facility] Comment on above: Performed By: #### L 500.2500, L100.0500 #### [facility] [address] [place], [address] MCV (RBC) [Entitic vol] 90.3 fL Normal 80-[address] [facility] Comment on above: Performed By: #### L 500.2500, L100.0500 #### [facility] [address] [place], [address] Platelet mean volume (Bld) [Entitic vol] 11.6 fL Normal 6.2-12.0 [facility] Comment on above: Performed By: #### L 500.2500, L100.0500 #### [facility] [address] [place], [address] Platelets (Bld) [#/Vol] 119 10*3/uL Low 150-450 [facility] Comment on above: Performed By: #### L 500.2500, L100.0500 #### [facility] [address] [place], [address] RBC (Bld) [#/Vol] 4.54 10*6/uL Low 4.6-6.2 [facility] Comment on above: Performed By: #### L 500.2500, L100.0500 #### [facility] [address] [place], [address] RDW SD 44.9 fl High 35.1-43.9 [facility] Comment on above: Performed By: #### L 500.2500, L100.0500 #### [facility] [address] [place], [address] WBC (Bld) [#/Vol] 5.8 10*3/uL Normal 4.4-11.0 [facility] Comment on above: Performed By: #### L 500.2500, L100.0500 #### [facility] [address] [place], [address] CNOVon 06-26-2024 CNOV Office Visit (TOMY ) DENIZ KUMAR ([id number]) 1935 M Date Time Provider Department 06/26/24 [...] with limited history of what happened in [facility] and I do not have complete hospital records. Those records in EPIC reviewed. No mention of acute intracranial process or other acute finding on imaging. D/c to [facility]. Patient reporting bladder incontinence - [...] - w (more content not included)... Normal [facility] CBC W/Diff, Automatedon 12- Absolute Neut Normal 2.0-7.7 [facility] Comment on above: Result Comment: Canc elled via OM: Order cancelled - Patient discharged Performed By: #### L 500.4050, L100.0100 #### [facility] [address] [place], [address] HCT Normal 40-54 [facility] Comment on above: Result Comment: Canc elled via OM: Order cancelled - Patient discharged Performed By: #### L 500.4050, L100.0100 #### [facility] [address] [place], [address] HGB Normal 13.0-16.5 [facility] Comment on above: Result Comment: Canc elled via OM: Order cancelled - Patient discharged Performed By: #### L 500.4050, L100.0100 #### [facility] [address] [place], [address] MCH Normal 27.0-32.0 [facility] Comment on above: Result Comment: Canc elled via OM: Order cancelled - Patient discharged Performed By: #### L 500.4050, L100.0100 #### [facility] [address] [place], [address] MCHC Normal 32-36 [facility] Comment on above: Result Comment: Canc elled via OM: Order cancelled - Patient discharged Performed By: #### L 500.4050, L100.0100 #### [facility] [address] [place], [address] MCV Normal 80-94 [facility] Comment on above: Result Comment: Canc elled via OM: Order cancelled - Patient discharged Performed By: #### L 500.4050, L100.0100 #### [facility] [address] [place], [address] NEUT% Normal 47-70 [facility] Comment on above: Result Comment: Canc elled via OM: Order cancelled - Patient discharged Performed By: #### L 500.4050, L100.0100 #### [facility] [address] [place], [address] PLT Normal 150-450 [facility] Comment on above: Result Comment: Canc elled via OM: Order cancelled - Patient discharged Performed By: #### L 500.4050, L100.0100 #### [facility] [address] [place], [address] RBC Normal 4.6-6.2 [facility] Comment on above: Result Comment: Canc elled via OM: Order cancelled - Patient discharged Performed By: #### L 500.4050, L100.0100 #### [facility] [address] [place], [address] RDW CV Normal 11.6-14.6 [facility] Comment on above: Result Comment: Canc elled via OM: Order cancelled - Patient discharged Performed By: #### L 500.4050, L100.0100 #### [facility] [address] [place], [address] RDW SD Normal 35.1-43.9 [facility] Comment on above: Result Comment: Canc elled via OM: Order cancelled - Patient discharged Performed By: #### L 500.4050, L100.0100 #### [facility] [address] [place], [address] WBC Normal 4.4-11.0 [facility] Comment on above: Result Comment: Canc elled via OM: Order cancelled - Patient discharged Performed By: #### L 500.4050, L100.0100 #### [facility] [address] [place], [address] Comprehensive Metabolic Prof ilon 06-17-2024 ALB Normal 3.2-5.0 [facility] Comment on above: Result Comment: Canc elled via OM: Order cancelled - Patient discharged Performed By: #### L 500.4050, L100.0100 #### [facility] [address] [place], [address] ALK P Normal 45-117 [facility] Comment on above: Result Comment: Canc elled via OM: Order cancelled - Patient discharged Performed By: #### L 500.4050, L100.0100 #### [facility] [address] [place], [address] ALT Normal 16-61 [facility] Comment on above: Result Comment: Canc elled via OM: Order cancelled - Patient discharged Performed By: #### L 500.4050, L100.0100 #### [facility] [address] [place], [address] AST Normal 15-37 [facility] Comment on above: Result Comment: Canc elled via OM: Order cancelled - Patient discharged Performed By: #### L 500.4050, L100.0100 #### [facility] [address] [place], [address] BUN Normal 7-18 [facility] Comment on above: Result Comment: Canc elled via OM: Order cancelled - Patient discharged Performed By: #### L 500.4050, L100.0100 #### [facility] [address] [place], [address] BUN/CRE Normal 10-20 [facility] Comment on above: Result Comment: Canc elled via OM: Order cancelled - Patient discharged Performed By: #### L 500.4050, L100.0100 #### [facility] [address] [place], [address] CA,Total Normal 8.5-10.1 [facility] Comment on above: Result Comment: Canc elled via OM: Order cancelled - Patient discharged Performed By: #### L 500.4050, L100.0100 #### [facility] [address] [place], [address] CL Normal 98-107 [facility] Comment on above: Result Comment: Canc elled via OM: Order cancelled - Patient discharged Performed By: #### L 500.4050, L100.0100 #### [facility] [address] [place], [address] CO2 Normal 21.0-32.0 [facility] Comment on above: Result Comment: Canc elled via OM: Order cancelled - Patient discharged Performed By: #### L 500.4050, L100.0100 #### [facility] [address] [place], [address] CREAT,SERUM Normal 0.70-1.30 [facility] Comment on above: Result Comment: Canc elled via OM: Order cancelled - Patient discharged Performed By: #### L 500.4050, L100.0100 #### [facility] [address] [place], [address] EST GFR Normal >60 [facility] Comment on above: Result Comment: Canc elled via OM: Order cancelled - Patient discharged Performed By: #### L 500.4050, L100.0100 #### [facility] [address] [place], [address] EST GFR - AA Normal >60 [facility] Comment on above: Result Comment: Canc elled via OM: Order cancelled - Patient discharged Performed By: #### L 500.4050, L100.0100 #### [facility] [address] [place], [address] GAP Normal 5-15 [facility] Comment on above: Result Comment: Canc elled via OM: Order cancelled - Patient discharged Performed By: #### L 500.4050, L100.0100 #### [facility] [address] [place], [address] GLU Normal 74-106 [facility] Comment on above: Result Comment: Canc elled via OM: Order cancelled - Patient discharged Performed By: #### L 500.4050, L100.0100 #### [facility] [address] [place], [address] Potassium Normal 3.5-5.1 [facility] Comment on above: Result Comment: Canc elled via OM: Order cancelled - Patient discharged Performed By: #### L 500.4050, L100.0100 #### [facility] [address] [place], [address] T BILI Normal 0.20-1.00 [facility] Comment on above: Result Comment: Canc elled via OM: Order cancelled - Patient discharged Performed By: #### L 500.4050, L100.0100 #### [facility] [address] [place], [address] T PROT Normal 6.4-8.2 [facility] Comment on above: Result Comment: Canc elled via OM: Order cancelled - Patient discharged Performed By: #### L 500.4050, L100.0100 #### [facility] [address] [place], [address] Comprehensive Metabolic Profil Normal 136-145 [facility] Comment on above: Result Comment: Canc elled via OM: Order cancelled - Patient discharged Performed By: #### L 500.4050, L100.0100 #### [facility] [address] [place], [address] Basic Metabolic Profile (BMP )on 06-15-2024 BUN/CRE 19.0 RATIO Normal 10-20 [facility] Comment on above: Order Comment: 208.1 Performed By: #### L 500.2500, L100.0500 #### [facility] [address] [place], [address] CA,Total 8.8 mg/dL Normal 8.5-10.1 [facility] Comment on above: Order Comment: 208.1 Performed By: #### L 500.2500, L100.0500 #### [facility] [address] [place], [address] Chloride [Moles/Vol] 105 mmol/L Normal 98-107 [facility] Comment on above: Order Comment: 208.1 Performed By: #### L 500.2500, L100.0500 #### [facility] [address] [place], [address] CO2 [Moles/Vol] 25.0 mmol/L Normal 21.0-32.0 [facility] Comment on above: Order Comment: 208.1 Performed By: #### L 500.2500, L100.0500 #### [facility] [address] [place], [address] Creatinine [Mass/Vol] 0.95 mg/dL Normal 0.70-1.30 [facility] Comment on above: Order Comment: 208.1 Result Comment: The validity of the calculated GFR GFRAA in patients over 70 years has not been determined. Clinical correlation is essential. Performed By: #### L 500.2500, L100.0500 #### [facility] [address] [place], [address] EST GFR - AA 97 mL/min Normal >60 [facility] Comment on above: Order Comment: 208.1 Result Comment: Afri can [place] GFR Calc Performed By: #### L 500.2500, L100.0500 #### [facility] [address] [place], [address] GAP 8 Normal 5-15 [facility] Comment on above: Order Comment: 208.1 Performed By: #### L 500.2500, L100.0500 #### [facility] [address] [place], [address] GFR/1.73 sq M.predicted among non-blacks MDRD (S/P/Bld) [Vol rate/Area] 80 mL/min/{1.73_m2} Normal >60 [facility] Comment on above: Order Comment: 208.1 Result Comment: Non- GFR Calc Performed By: #### L 500.2500, L100.0500 #### [facility] [address] [place], [address] Glucose [Mass/Vol] 77 mg/dL Normal 74-106 [facility] Comment on above: Order Comment: 208.1 Performed By: #### L 500.2500, L100.0500 #### [facility] [address] [place], [address] Potassium [Moles/Vol] 3.6 mmol/L Normal 3.5-5.1 [facility] Comment on above: Order Comment: 208.1 Performed By: #### L 500.2500, L100.0500 #### [facility] [address] [place], [address] Sodium [Moles/Vol] 138 mmol/L Normal 136-145 [facility] Comment on above: Order Comment: 208.1 Performed By: #### L 500.2500, L100.0500 #### [facility] [address] [place], [address] Urea nitrogen [Mass/Vol] 18 mg/dL Normal 7-18 [facility] Comment on above: Order Comment: 208.1 Performed By: #### L 500.2500, L100.0500 #### [facility] [address] [place], [address] CBC-Complete Blood Cnt No Di ffon 06-15-2024 Erythrocyte distribution width (RBC) [Ratio] 12.9 % Normal 11.6-14.6 [facility] Comment on above: Order Comment: 208.1 Performed By: #### L 500.2500, L100.0500 #### [facility] [address] [place], [address] Hematocrit (Bld) [Volume fraction] 41.8 % Normal 40-54 [facility] Comment on above: Order Comment: 208.1 Performed By: #### L 500.2500, L100.0500 #### [facility] [address] [place], [address] Hemoglobin (Bld) [Mass/Vol] 13.9 g/dL Normal 13.0-16.5 [facility] Comment on above: Order Comment: 208.1 Performed By: #### L 500.2500, L100.0500 #### [facility] [address] [place], [address] MCH (RBC) [Entitic mass] 30.0 pg Normal 27.0-32.0 [facility] Comment on above: Order Comment: 208.1 Performed By: #### L 500.2500, L100.0500 #### [facility] [address] [place], [address] MCHC (RBC) [Mass/Vol] 33.3 g/dL Normal 32-36 [facility] Comment on above: Order Comment: 208.1 Performed By: #### L 500.2500, L100.0500 #### [facility] [address] [place], [address] MCV (RBC) [Entitic vol] 90.3 fL Normal 80-[address] [facility] Comment on above: Order Comment: 208.1 Performed By: #### L 500.2500, L100.0500 #### [facility] [address] [place], [address] Platelet mean volume (Bld) [Entitic vol] 11.7 fL Normal 6.2-12.0 [facility] Comment on above: Order Comment: 208.1 Performed By: #### L 500.2500, L100.0500 #### [facility] [address] [place], [address] Platelets (Bld) [#/Vol] 117 10*3/uL Low 150-450 [facility] Comment on above: Order Comment: 208.1 Performed By: #### L 500.2500, L100.0500 #### [facility] [address] [place], [address] RBC (Bld) [#/Vol] 4.63 10*6/uL Normal 4.6-6.2 [facility] Comment on above: Order Comment: 208.1 Performed By: #### L 500.2500, L100.0500 #### [facility] [address] [place], [address] RDW SD 42.1 fl Normal 35.1-43.9 [facility] Comment on above: Order Comment: 208.1 Performed By: #### L 500.2500, L100.0500 #### [facility] [address] [place], [address] WBC (Bld) [#/Vol] 6.7 10*3/uL Normal 4.4-11.0 [facility] Comment on above: Order Comment: .1 Performed By: #### L 500.2500, L100.0500 #### [facility] [address] [place], [address] Magnesiumon 06-15-2024 Magnesium [Mass/Vol] 2.0 mg/dL Normal 1.6-2.6 [facility] Comment on above: Order Comment: . Performed By: #### L 500.2500, L100.0500 #### [facility] [address] [place], [address] CBC W/Diff, Automatedon 05-31 Absolute Neut Normal 2.0-7.7 [facility] Comment on above: Result Comment: Canc elled via OM: Order cancelled - Patient discharged Performed By: #### L 500.4050, L100.0100 #### [facility] [address] [place], [address] HCT Normal 40-54 [facility] Comment on above: Result Comment: Canc elled via OM: Order cancelled - Patient discharged Performed By: #### L 500.4050, L100.0100 #### [facility] [address] [place], [address] HGB Normal 13.0-16.5 [facility] Comment on above: Result Comment: Canc elled via OM: Order cancelled - Patient discharged Performed By: #### L 500.4050, L100.0100 #### [facility] [address] [place], [address] MCH Normal 27.0-32.0 [facility] Comment on above: Result Comment: Canc elled via OM: Order cancelled - Patient discharged Performed By: #### L 500.4050, L100.0100 #### [facility] [address] [place], [address] MCHC Normal 32-36 [facility] Comment on above: Result Comment: Canc elled via OM: Order cancelled - Patient discharged Performed By: #### L 500.4050, L100.0100 #### [facility] [address] [place], [address] MCV Normal 80-94 [facility] Comment on above: Result Comment: Canc elled via OM: Order cancelled - Patient discharged Performed By: #### L 500.4050, L100.0100 #### [facility] [address] [place], [address] NEUT% Normal 47-70 [facility] Comment on above: Result Comment: Canc elled via OM: Order cancelled - Patient discharged Performed By: #### L 500.4050, L100.0100 #### [facility] [address] [place], [address] PLT Normal 150-450 [facility] Comment on above: Result Comment: Canc elled via OM: Order cancelled - Patient discharged Performed By: #### L 500.4050, L100.0100 #### [facility] [address] [place], [address] RBC Normal 4.6-6.2 [facility] Comment on above: Result Comment: Canc elled via OM: Order cancelled - Patient discharged Performed By: #### L 500.4050, L100.0100 #### [facility] [address] [place], [address] RDW CV Normal 11.6-14.6 [facility] Comment on above: Result Comment: Canc elled via OM: Order cancelled - Patient discharged Performed By: #### L 500.4050, L100.0100 #### [facility] [address] [place], [address] RDW SD Normal 35.1-43.9 [facility] Comment on above: Result Comment: Canc elled via OM: Order cancelled - Patient discharged Performed By: #### L 500.4050, L100.0100 #### [facility] [address] [place], [address] WBC Normal 4.4-11.0 [facility] Comment on above: Result Comment: Canc elled via OM: Order cancelled - Patient discharged Performed By: #### L 500.4050, L100.0100 #### [facility] [address] [place], [address] Comprehensive Metabolic Prof ilon 06-10-2024 ALB Normal 3.2-5.0 [facility] Comment on above: Result Comment: Canc elled via OM: Order cancelled - Patient discharged Performed By: #### L 500.4050, L100.0100 #### [facility] [address] [place], [address] ALK P Normal 45-117 [facility] Comment on above: Result Comment: Canc elled via OM: Order cancelled - Patient discharged Performed By: #### L 500.4050, L100.0100 #### [facility] [address] [place], [address] ALT Normal 16-61 [facility] Comment on above: Result Comment: Canc elled via OM: Order cancelled - Patient discharged Performed By: #### L 500.4050, L100.0100 #### [facility] [address] [place], [address] AST Normal 15-37 [facility] Comment on above: Result Comment: Canc elled via OM: Order cancelled - Patient discharged Performed By: #### L 500.4050, L100.0100 #### [facility] [address] [place], [address] BUN Normal 7-18 [facility] Comment on above: Result Comment: Canc elled via OM: Order cancelled - Patient discharged Performed By: #### L 500.4050, L100.0100 #### [facility] [address] [place], [address] BUN/CRE Normal 10-20 [facility] Comment on above: Result Comment: Canc elled via OM: Order cancelled - Patient discharged Performed By: #### L 500.4050, L100.0100 #### [facility] [address] [place], [address] CA,Total Normal 8.5-10.1 [facility] Comment on above: Result Comment: Canc elled via OM: Order cancelled - Patient discharged Performed By: #### L 500.4050, L100.0100 #### [facility] [address] [place], [address] CL Normal 98-107 [facility] Comment on above: Result Comment: Canc elled via OM: Order cancelled - Patient discharged Performed By: #### L 500.4050, L100.0100 #### [facility] [address] [place], [address] CO2 Normal 21.0-32.0 [facility] Comment on above: Result Comment: Canc elled via OM: Order cancelled - Patient discharged Performed By: #### L 500.4050, L100.0100 #### [facility] [address] [place], [address] CREAT,SERUM Normal 0.70-1.30 [facility] Comment on above: Result Comment: Canc elled via OM: Order cancelled - Patient discharged Performed By: #### L 500.4050, L100.0100 #### [facility] [address] [place], [address] EST GFR Normal >60 [facility] Comment on above: Result Comment: Canc elled via OM: Order cancelled - Patient discharged Performed By: #### L 500.4050, L100.0100 #### [facility] [address] [place], [address] EST GFR - AA Normal >60 [facility] Comment on above: Result Comment: Canc elled via OM: Order cancelled - Patient discharged Performed By: #### L 500.4050, L100.0100 #### [facility] [address] [place], [address] GAP Normal 5-15 [facility] Comment on above: Result Comment: Canc elled via OM: Order cancelled - Patient discharged Performed By: #### L 500.4050, L100.0100 #### [facility] [address] [place], [address] GLU Normal 74-106 [facility] Comment on above: Result Comment: Canc elled via OM: Order cancelled - Patient discharged Performed By: #### L 500.4050, L100.0100 #### [facility] [address] [place], [address] Potassium Normal 3.5-5.1 [facility] Comment on above: Result Comment: Canc elled via OM: Order cancelled - Patient discharged Performed By: #### L 500.4050, L100.0100 #### [facility] [address] [place], [address] T BILI Normal 0.20-1.00 [facility] Comment on above: Result Comment: Canc elled via OM: Order cancelled - Patient discharged Performed By: #### L 500.4050, L100.0100 #### [facility] [address] [place], [address] T PROT Normal 6.4-8.2 [facility] Comment on above: Result Comment: Canc elled via OM: Order cancelled - Patient discharged Performed By: #### L 500.4050, L100.0100 #### [facility] [address] [place], [address] Comprehensive Metabolic Profil Normal 136-145 [facility] Comment on above: Result Comment: Canc elled via OM: Order cancelled - Patient discharged Performed By: #### L 500.4050, L100.0100 #### [facility] [address] [place], [address] Basic Metabolic Profile (BMP )on 06-08-2024 BUN/CRE 25.7 RATIO High 10-20 [facility] Comment on above: Order Comment: 208 Performed By: #### L 500.2500, L100.0500 #### [facility] [address] [place], [address] CA,Total 8.9 mg/dL Normal 8.5-10.1 [facility] Comment on above: Order Comment: 208 Performed By: #### L 500.2500, L100.0500 #### [facility] [address] [place], [address] Chloride [Moles/Vol] 107 mmol/L Normal 98-107 [facility] Comment on above: Order Comment: 208 Performed By: #### L 500.2500, L100.0500 #### [facility] [address] [place], [address] CO2 [Moles/Vol] 28.0 mmol/L Normal 21.0-32.0 [facility] Comment on above: Order Comment: 208 Performed By: #### L 500.2500, L100.0500 #### [facility] [address] [place], [address] Creatinine [Mass/Vol] 0.97 mg/dL Normal 0.70-1.30 [facility] Comment on above: Order Comment: 208 Result Comment: The validity of the calculated GFR GFRAA in patients over 70 years has not been determined. Clinical correlation is essential. Performed By: #### L 500.2500, L100.0500 #### [facility] [address] [place], [address] EST GFR - AA 94 mL/min Normal >60 [facility] Comment on above: Order Comment: 208 Result Comment: Afri can [place] GFR Calc Performed By: #### L 500.2500, L100.0500 #### [facility] [address] [place], [address] GAP 5 Normal 5-15 [facility] Comment on above: Order Comment: 208 Performed By: #### L 500.2500, L100.0500 #### [facility] [address] [place], [address] GFR/1.73 sq M.predicted among non-blacks MDRD (S/P/Bld) [Vol rate/Area] 77 mL/min/{1.73_m2} Normal >60 [facility] Comment on above: Order Comment: 208 Result Comment: Non- GFR Calc Performed By: #### L 500.2500, L100.0500 #### [facility] [address] [place], [address] Glucose [Mass/Vol] 86 mg/dL Normal 74-106 [facility] Comment on above: Order Comment: 208 Performed By: #### L 500.2500, L100.0500 #### [facility] [address] [place], [address] Potassium [Moles/Vol] 4.0 mmol/L Normal 3.5-5.1 [facility] Comment on above: Order Comment: 208 Performed By: #### L 500.2500, L100.0500 #### [facility] [address] [place], [address] Sodium [Moles/Vol] 140 mmol/L Normal 136-145 [facility] Comment on above: Order Comment: 208 Performed By: #### L 500.2500, L100.0500 #### [facility] [address] [place], [address] Urea nitrogen [Mass/Vol] 25 mg/dL High 7-18 [facility] Comment on above: Order Comment: 208 Performed By: #### L 500.2500, L100.0500 #### [facility] [address] [place], [address] CBC-Complete Blood Cnt No Di ffon 06-08-2024 Erythrocyte distribution width (RBC) [Ratio] 12.9 % Normal 11.6-14.6 [facility] Comment on above: Order Comment: 208 Performed By: #### L 500.2500, L100.0500 #### [facility] [address] [place], [address] Hematocrit (Bld) [Volume fraction] 41.8 % Normal 40-54 [facility] Comment on above: Order Comment: 208 Performed By: #### L 500.2500, L100.0500 #### [facility] [address] [place], [address] Hemoglobin (Bld) [Mass/Vol] 13.7 g/dL Normal 13.0-16.5 [facility] Comment on above: Order Comment: 208 Performed By: #### L 500.2500, L100.0500 #### [facility] [address] [place], [address] MCH (RBC) [Entitic mass] 29.9 pg Normal 27.0-32.0 [facility] Comment on above: Order Comment: 208 Performed By: #### L 500.2500, L100.0500 #### [facility] [address] [place], [address] MCHC (RBC) [Mass/Vol] 32.8 g/dL Normal 32-36 [facility] Comment on above: Order Comment: 208 Performed By: #### L 500.2500, L100.0500 #### [facility] [address] [place], [address] MCV (RBC) [Entitic vol] 91.3 fL Normal 80-[address] [facility] Comment on above: Order Comment: 208 Performed By: #### L 500.2500, L100.0500 #### [facility] [address] [place], [address] Platelet mean volume (Bld) [Entitic vol] 11.7 fL Normal 6.2-12.0 [facility] Comment on above: Order Comment: 208 Performed By: #### L 500.2500, L100.0500 #### [facility] [address] [place], [address] Platelets (Bld) [#/Vol] 150 10*3/uL Normal 150-450 [facility] Comment on above: Order Comment: 208 Performed By: #### L 500.2500, L100.0500 #### [facility] [address] [place], [address] RBC (Bld) [#/Vol] 4.58 10*6/uL Low 4.6-6.2 [facility] Comment on above: Order Comment: 208 Performed By: #### L 500.2500, L100.0500 #### [facility] [address] [place], [address] RDW SD 42.9 fl Normal 35.1-43.9 [facility] Comment on above: Order Comment: 208 Performed By: #### L 500.2500, L100.0500 #### [facility] [address] [place], [address] WBC (Bld) [#/Vol] 5.5 10*3/uL Normal 4.4-11.0 [facility] Comment on above: Order Comment: 208 Performed By: #### L 500.2500, L100.0500 #### [facility] [address] [place], [address] Magnesiumon 06-08-2024 Magnesium [Mass/Vol] 2.1 mg/dL Normal 1.6-2.6 [facility] Comment on above: Order Comment: 208 Performed By: #### L 500.2500, L100.0500 #### [facility] [address] [place], [address] CBC W/Diff, Automatedon 12 Absolute Neut Normal 2.0-7.7 [facility] Comment on above: Result Comment: Canc elled via OM: Order cancelled - Patient discharged Performed By: #### L 500.2500, L100.0500 #### [facility] [address] [place], [address] HCT Normal 40-54 [facility] Comment on above: Result Comment: Canc elled via OM: Order cancelled - Patient discharged Performed By: #### L 500.2500, L100.0500 #### [facility] [address] [place], [address] HGB Normal 13.0-16.5 [facility] Comment on above: Result Comment: Canc elled via OM: Order cancelled - Patient discharged Performed By: #### L 500.2500, L100.0500 #### [facility] [address] [place], [address] MCH Normal 27.0-32.0 [facility] Comment on above: Result Comment: Canc elled via OM: Order cancelled - Patient discharged Performed By: #### L 500.2500, L100.0500 #### [facility] [address] [place], [address] MCHC Normal 32-36 [facility] Comment on above: Result Comment: Canc elled via OM: Order cancelled - Patient discharged Performed By: #### L 500.2500, L100.0500 #### [facility] [address] [place], [address] MCV Normal 80-94 [facility] Comment on above: Result Comment: Canc elled via OM: Order cancelled - Patient discharged Performed By: #### L 500.2500, L100.0500 #### [facility] [address] [place], [address] NEUT% Normal 47-70 [facility] Comment on above: Result Comment: Canc elled via OM: Order cancelled - Patient discharged Performed By: #### L 500.2500, L100.0500 #### [facility] [address] [place], [address] PLT Normal 150-450 [facility] Comment on above: Result Comment: Canc elled via OM: Order cancelled - Patient discharged Performed By: #### L 500.2500, L100.0500 #### [facility] [address] [place], [address] RBC Normal 4.6-6.2 [facility] Comment on above: Result Comment: Canc elled via OM: Order cancelled - Patient discharged Performed By: #### L 500.2500, L100.0500 #### [facility] [address] [place], [address] RDW CV Normal 11.6-14.6 [facility] Comment on above: Result Comment: Canc elled via OM: Order cancelled - Patient discharged Performed By: #### L 500.2500, L100.0500 #### [facility] [address] [place], [address] RDW SD Normal 35.1-43.9 [facility] Comment on above: Result Comment: Canc elled via OM: Order cancelled - Patient discharged Performed By: #### L 500.2500, L100.0500 #### [facility] [address] [place], [address] WBC Normal 4.4-11.0 [facility] Comment on above: Result Comment: Canc elled via OM: Order cancelled - Patient discharged Performed By: #### L 500.2500, L100.0500 #### [facility] [address] [place], [address] Comprehensive Metabolic Prof ilon 06-03-2024 ALB Normal 3.2-5.0 [facility] Comment on above: Result Comment: Canc elled via OM: Order cancelled - Patient discharged Performed By: #### L 500.2500, L100.0500 #### [facility] [address] [place], [address] ALK P Normal 45-117 [facility] Comment on above: Result Comment: Canc elled via OM: Order cancelled - Patient discharged Performed By: #### L 500.2500, L100.0500 #### [facility] [address] [place], [address] ALT Normal 16-61 [facility] Comment on above: Result Comment: Canc elled via OM: Order cancelled - Patient discharged Performed By: #### L 500.2500, L100.0500 #### [facility] [address] [place], [address] AST Normal 15-37 [facility] Comment on above: Result Comment: Canc elled via OM: Order cancelled - Patient discharged Performed By: #### L 500.2500, L100.0500 #### [facility] [address] [place], [address] BUN Normal 7-18 [facility] Comment on above: Result Comment: Canc elled via OM: Order cancelled - Patient discharged Performed By: #### L 500.2500, L100.0500 #### [facility] [address] [place], [address] BUN/CRE Normal 10-20 [facility] Comment on above: Result Comment: Canc elled via OM: Order cancelled - Patient discharged Performed By: #### L 500.2500, L100.0500 #### [facility] [address] [place], [address] CA,Total Normal 8.5-10.1 [facility] Comment on above: Result Comment: Canc elled via OM: Order cancelled - Patient discharged Performed By: #### L 500.2500, L100.0500 #### [facility] [address] [place], [address] CL Normal 98-107 [facility] Comment on above: Result Comment: Canc elled via OM: Order cancelled - Patient discharged Performed By: #### L 500.2500, L100.0500 #### [facility] [address] [place], [address] CO2 Normal 21.0-32.0 [facility] Comment on above: Result Comment: Canc elled via OM: Order cancelled - Patient discharged Performed By: #### L 500.2500, L100.0500 #### [facility] [address] [place], [address] CREAT,SERUM Normal 0.70-1.30 [facility] Comment on above: Result Comment: Canc elled via OM: Order cancelled - Patient discharged Performed By: #### L 500.2500, L100.0500 #### [facility] [address] [place], [address] EST GFR Normal >60 [facility] Comment on above: Result Comment: Canc elled via OM: Order cancelled - Patient discharged Performed By: #### L 500.2500, L100.0500 #### [facility] [address] [place], [address] EST GFR - AA Normal >60 [facility] Comment on above: Result Comment: Canc elled via OM: Order cancelled - Patient discharged Performed By: #### L 500.2500, L100.0500 #### [facility] [address] [place], [address] GAP Normal 5-15 [facility] Comment on above: Result Comment: Canc elled via OM: Order cancelled - Patient discharged Performed By: #### L 500.2500, L100.0500 #### [facility] [address] [place], [address] GLU Normal 74-106 [facility] Comment on above: Result Comment: Canc elled via OM: Order cancelled - Patient discharged Performed By: #### L 500.2500, L100.0500 #### [facility] [address] [place], [address] Potassium Normal 3.5-5.1 [facility] Center Comment on above: Result Comment: Canc elled via OM: Order cancelled - Patient discharged Performed By: #### L 500.2500, L100.0500 #### [facility] [address] [place], [address] T BILI Normal 0.20-1.00 [facility] Comment on above: Result Comment: Canc elled via OM: Order cancelled - Patient discharged Performed By: #### L 500.2500, L100.0500 #### [facility] [address] [place], [address] T PROT Normal 6.4-8.2 [facility] Comment on above: Result Comment: Canc elled via OM: Order cancelled - Patient discharged Performed By: #### L 500.2500, L100.0500 #### [facility] [address] [place], [address] Comprehensive Metabolic Profil Normal 136-145 [facility] Comment on above: Result Comment: Canc elled via OM: Order cancelled - Patient discharged Performed By: #### L 500.2500, L100.0500 #### [facility] [address] [place], [address] CBC W/Diff, Automatedon 12-0 SMEAR COMMENT COMMENT Normal [facility] Comment on above: Order Comment: 208 Result Comment: MONO CYTOSIS. Performed By: #### L 500.4050, L100.0100 #### [facility] [address] [place], [address] CNPNon 06-01-2024 [facility] Telephone (INTMWS) DENIZ KUMAR ([id number]) 1935 M Date Time Provider Department 06/01/24 VADIM DERAS INTWS During your visit today, we recorded the following information about you: Dayami Rea LPN 06/01/2024 10:25 AM Addendum Rec'd records from [facility] pt was discharged from there to care home [facility] 05/30/24. Allergies As of Date: 06/01/2024 Noted Allergy Reaction YDLNUHM-ARN-LIL REDUCTASE INHIBIT*08/23/2023 17 - Myalgia Comments: Weakess, [...] Status:Closed by DAYAMI REA on 06/01/24 Normal [facility] Metabolic Prof danielle 06-01-2024 Albumin [Mass/Vol] 2.6 g/dL Low 3.2-5.0 [facility] Comment on above: Order Comment: 208 Performed By: #### L 500.4050, L100.0100 #### [facility] [address] [place], [address] Albumin/Globulin [Mass ratio] 0.8 {ratio} Low 0.9-2.4 [facility] Comment on above: Order Comment: 208 Performed By: #### L 500.4050, L100.0100 #### [facility] [address] [place], [address] ALK P 68 U/L Normal 45-117 [facility] Comment on above: Order Comment: 208 Performed By: #### L 500.4050, L100.0100 #### [facility] [address] [place], [address] ALT [Catalytic activity/Vol] 29 U/L Normal 16-61 [facility] Comment on above: Order Comment: 208 Performed By: #### L 500.4050, L100.0100 #### [facility] [address] [place], [address] AST [Catalytic activity/Vol] 16 U/L Normal 15-37 [facility] Comment on above: Order Comment: 208 Performed By: #### L 500.4050, L100.0100 #### [facility] [address] [place], [address] Bilirubin [Mass/Vol] 1.00 mg/dL Normal 0.20-1.00 [facility] Comment on above: Order Comment: 208 Result Comment: For patients on eltrombopag therapy, use of Dimension [place] TBIL is not recommended. Performed By: #### L 500.4050, L100.0100 #### [facility] [address] [place], [address] BUN/CRE 31.3 RATIO High 10-20 [facility] Comment on above: Order Comment: 208 Performed By: #### L 500.4050, L100.0100 #### [facility] [address] [place], [address] CA,Total 8.7 mg/dL Normal 8.5-10.1 [facility] Comment on above: Order Comment: 208 Performed By: #### L 500.4050, L100.0100 #### [facility] [address] [place], [address] Chloride [Moles/Vol] 109 mmol/L High 98-107 [facility] Comment on above: Order Comment: 208 Performed By: #### L 500.4050, L100.0100 #### [facility] [address] [place], [address] CO2 [Moles/Vol] 25.0 mmol/L Normal 21.0-32.0 [facility] Comment on above: Order Comment: 208 Performed By: #### L 500.4050, L100.0100 #### [facility] [address] [place], [address] Creatinine [Mass/Vol] 0.77 mg/dL Normal 0.70-1.30 [facility] Comment on above: Order Comment: 208 Result Comment: The validity of the calculated GFR GFRAA in patients over 70 years has not been determined. Clinical correlation is essential. Performed By: #### L 500.4050, L100.0100 #### [facility] [address] [place], [address] EST GFR - AA 123 mL/min Normal >60 [facility] Comment on above: Order Comment: 208 Result Comment: Afri can [place] GFR Calc Performed By: #### L 500.4050, L100.0100 #### [facility] [address] [place], [address] GAP 6 Normal 5-15 [facility] Comment on above: Order Comment: 208 Performed By: #### L 500.4050, L100.0100 #### [facility] [address] [place], [address] GFR/1.73 sq M.predicted among non-blacks MDRD (S/P/Bld) [Vol rate/Area] 102 mL/min/{1.73_m2} Normal >60 [facility] Comment on above: Order Comment: 208 Result Comment: Non- GFR Calc Performed By: #### L 500.4050, L100.0100 #### [facility] [address] [place], [address] Globulin (S) [Mass/Vol] 3.3 g/dL Normal 2.2-4.2 [facility] Comment on above: Order Comment: 208 Performed By: #### L 500.4050, L100.0100 #### [facility] [address] [place], [address] Glucose [Mass/Vol] 84 mg/dL Normal 74-106 [facility] Comment on above: Order Comment: 208 Performed By: #### L 500.4050, L100.0100 #### [facility] [address] [place], [address] Potassium [Moles/Vol] 3.6 mmol/L Normal 3.5-5.1 [facility] Comment on above: Order Comment: 208 Performed By: #### L 500.4050, L100.0100 #### [facility] [address] [place], [address] Sodium [Moles/Vol] 140 mmol/L Normal 136-145 [facility] Comment on above: Order Comment: 208 Performed By: #### L 500.4050, L100.0100 #### [facility] [address] [place], [address] T PROT 5.9 g/dL Low 6.4-8.2 [facility] Comment on above: Order Comment: 208 Performed By: #### L 500.4050, L100.0100 #### [facility] [address] [place], [address] Urea nitrogen [Mass/Vol] 24 mg/dL High 7-18 [facility] Comment on above: Order Comment: 208 Performed By: #### L 500.4050, L100.0100 #### [facility] [address] [place], [address] Lipid Profileon 06-01-2024 Cholesterol [Mass/Vol] 151 mg/dL Normal 200 [facility] Comment on above: Order Comment: 208 Result Comment: <200 mg/dL Desirable 200-240 mg/dL Borderline >240 mg/dL High Risk Performed By: #### L 500.4050, L100.0100 #### [facility] [address] [place], [address] Cholesterol in HDL [Mass/Vol] 42 mg/dL Normal [facility] Comment on above: Order Comment: 208 Result Comment: The drugs N-Acetylcysteine and Metamizole may falsely depress this assay. Reference Range HDL <40 mg/dL Low HDL Cholesterol HDL >or= 60 mg/dL High HDL Cholesterol Performed By: #### L 500.4050, L100.0100 #### [facility] [address] [place], [address] Cholesterol in LDL [Mass/Vol] 90 mg/dL Normal 0-130 [facility] Comment on above: Order Comment: 208 Performed By: #### L 500.4050, L100.0100 #### [facility] [address] [place], [address] Cholesterol in VLDL [Mass/Vol] 19 mg/dL Normal 5-40 [facility] Comment on above: Order Comment: 208 Performed By: #### L 500.4050, L100.0100 #### [facility] [address] [place], [address] Triglyceride [Mass/Vol] 96 mg/dL Normal [facility] Comment on above: Order Comment: 208 Result Comment: The drugs N-Acetylcysteine and Metamizole may falsely depress this assay. Serum Triglycerides Reference Interval Normal <150 mg/dL Borderline high 150 - 199 mg/dL High 200 - 499 mg/dL Very High > or = 500 mg/dL Performed By: #### L 500.4050, L100.0100 #### [facility] [address] [place], [address] Magnesiumon 06-01-2024 Magnesium [Mass/Vol] 1.9 mg/dL Normal 1.6-2.6 [facility] Comment on above: Order Comment: 208 Performed By: #### L 500.4050, L100.0100 #### [facility] [address] [place], [address] Thyroid Stim Hormone (TSH)on 06-01-2024 TSH 1.110 uIU/mL Normal 0.358-3.740 [facility] Comment on above: Order Comment: 208 Performed By: #### L 500.4050, L100.0100 #### [facility] [address] [place], [address] Vitamin B12on 06-01-2024 Cobalamin (Vitamin B12) [Mass/Vol] 998 pg/mL High 211-911 [facility] Comment on above: Order Comment: 208 Performed By: #### L 500.4050, L100.0100 #### [facility] [address] [place], [address] Vitamin D,25 Hydroxyon 06-01 Vitamin D 25-OH 33.5 ng/mL Normal [facility] Comment on above: Order Comment: 208 Result Comment: Christie min D 25(OH) Status Range Deficiency <20 ng/mL (50nmol/L) Insufficiency 20 - 30 ng/mL (50 - 75 nmol/L) Sufficiency 30 - 100 ng/mL (75 - 250 nmol/L) Toxicity >100 ng/mL (>250 nmol/L) Performed By: #### L 500.4050, L100.0100 #### [facility] [address] [place], [address] Basic Metabolic Profile (BMP )on 05-27-2024 BUN Normal 7-18 [facility] Comment on above: Result Comment: Canc elled via OM: Order Changed Performed By: #### L 500.4050, L100.0100 #### [facility] [address] [place], [address] BUN/CRE Normal 10-20 [facility] Comment on above: Result Comment: Canc elled via OM: Order Changed Performed By: #### L 500.4050, L100.0100 #### [facility] [address] [place], [address] CA,Total Normal 8.5-10.1 [facility] Comment on above: Result Comment: Canc elled via OM: Order Changed Performed By: #### L 500.4050, L100.0100 #### [facility] [address] [place], [address] CL Normal 98-107 [facility] Comment on above: Result Comment: Canc elled via OM: Order Changed Performed By: #### L 500.4050, L100.0100 #### [facility] [address] [place], [address] CO2 Normal 21.0-32.0 [facility] Comment on above: Result Comment: Canc elled via OM: Order Changed Performed By: #### L 500.4050, L100.0100 #### [facility] [address] [place], [address] CREAT,SERUM Normal 0.70-1.30 [facility] Comment on above: Result Comment: Canc elled via OM: Order Changed Performed By: #### L 500.4050, L100.0100 #### [facility] [address] [place], [address] EST GFR Normal >60 [facility] Comment on above: Result Comment: Canc elled via OM: Order Changed Performed By: #### L 500.4050, L100.0100 #### [facility] [address] [place], [address] EST GFR - AA Normal >60 [facility] Comment on above: Result Comment: Canc elled via OM: Order Changed Performed By: #### L 500.4050, L100.0100 #### [facility] [address] [place], [address] GAP Normal 5-15 [facility] Comment on above: Result Comment: Canc elled via OM: Order Changed Performed By: #### L 500.4050, L100.0100 #### [facility] [address] [place], [address] GLU Normal 74-106 [facility] Comment on above: Result Comment: Canc elled via OM: Order Changed Performed By: #### L 500.4050, L100.0100 #### [facility] [address] [place], [address] Potassium Normal 3.5-5.1 [facility] Comment on above: Result Comment: Canc elled via OM: Order Changed Performed By: #### L 500.4050, L100.0100 #### [facility] [address] [place], [address] Basic Metabolic Profile (BMP) Normal 136-145 [facility] Comment on above: Result Comment: Canc elled via OM: Order Changed Performed By: #### L 500.4050, L100.0100 #### [facility] [address] [place], [address] CBC W/Diff, Automatedon 11-2 PATH REV Reviewed Normal [facility] Comment on above: Result Comment: Russ Carrillo D.O. 05/27/24 AMENDED REPORT 05/27/24 1428 PATH REV previously reported as: October Performed By: #### L 100.0100, L500.4050 #### [facility] [address] [place], [address] Absolute Neut Normal 2.0-7.7 [facility] Comment on above: Result Comment: Canc elled via OM: Order Changed Performed By: #### L 500.4050, L100.0100 #### [facility] [address] [place], [address] HCT Normal 40-54 [facility] Comment on above: Result Comment: Canc elled via OM: Order Changed Performed By: #### L 500.4050, L100.0100 #### [facility] [address] [place], [address] HGB Normal 13.0-16.5 [facility] Comment on above: Result Comment: Canc elled via OM: Order Changed Performed By: #### L 500.4050, L100.0100 #### [facility] [address] [place], [address] MCH Normal 27.0-32.0 [facility] Comment on above: Result Comment: Canc elled via OM: Order Changed Performed By: #### L 500.4050, L100.0100 #### [facility] [address] [place], [address] MCHC Normal 32-36 [facility] Comment on above: Result Comment: Canc elled via OM: Order Changed Performed By: #### L 500.4050, L100.0100 #### [facility] [address] [place], [address] MCV Normal 80-94 [facility] Comment on above: Result Comment: Canc elled via OM: Order Changed Performed By: #### L 500.4050, L100.0100 #### [facility] [address] [place], [address] NEUT% Normal 47-70 [facility] Comment on above: Result Comment: Canc elled via OM: Order Changed Performed By: #### L 500.4050, L100.0100 #### [facility] [address] [place], [address] PLT Normal 150-450 [facility] Comment on above: Result Comment: Canc elled via OM: Order Changed Performed By: #### L 500.4050, L100.0100 #### [facility] [address] [place], [address] RBC Normal 4.6-6.2 [facility] Comment on above: Result Comment: Canc elled via OM: Order Changed Performed By: #### L 500.4050, L100.0100 #### [facility] [address] [place], [address] RDW CV Normal 11.6-14.6 [facility] Comment on above: Result Comment: Canc elled via OM: Order Changed Performed By: #### L 500.4050, L100.0100 #### [facility] [address] [place], [address] RDW SD Normal 35.1-43.9 [facility] Comment on above: Result Comment: Canc elled via OM: Order Changed Performed By: #### L 500.4050, L100.0100 #### [facility] [address] [place], [address] WBC Normal 4.4-11.0 [facility] Comment on above: Result Comment: Canc elled via OM: Order Changed Performed By: #### L 500.4050, L100.0100 #### [facility] [address] [place], [address] Comprehensive Metabolic Prof ilon 05-27-2024 Albumin [Mass/Vol] 2.7 g/dL Low 3.2-5.0 [facility] Comment on above: Performed By: #### L 100.0100, L500.4050 ####[facility] [address] [place], [address] Albumin/Globulin [Mass ratio] 0.8 {ratio} Low 0.9-2.4 [facility] Comment on above: Performed By: #### L 100.0100, L500.4050 ####[facility] [address] [place], [address] ALK P 71 U/L Normal 45-117 [facility] Comment on above: Performed By: #### L 100.0100, L500.4050 ####[facility] [address] [place], [address] ALT [Catalytic activity/Vol] 35 U/L Normal 16-61 [facility] Comment on above: Performed By: #### L 100.0100, L500.4050 ####[facility] [address] [place], [address] AST [Catalytic activity/Vol] 20 U/L Normal 15-37 [facility] Comment on above: Performed By: #### L 100.0100, L500.4050 ####[facility] [address] [place], [address] Bilirubin [Mass/Vol] 0.90 mg/dL Normal 0.20-1.00 [facility] Comment on above: Result Comment: For patients on eltrombopag therapy, use of Dimension [place] TBIL is not recommended. Performed By: #### L 100.0100, L500.4050 ####[facility] [address] [place], [address] BUN/CRE 34.4 RATIO High 10-20 [facility] Comment on above: Performed By: #### L 100.0100, L500.4050 ####[facility] [address] [place], [address] CA,Total 8.9 mg/dL Normal 8.5-10.1 [facility] Comment on above: Performed By: #### L 100.0100, L500.4050 ####[facility] [address] [place], [address] Chloride [Moles/Vol] 107 mmol/L Normal 98-107 [facility] Comment on above: Performed By: #### L 100.0100, L500.4050 ####[facility] [address] [place], [address] CO2 [Moles/Vol] 24.0 mmol/L Normal 21.0-32.0 [facility] Comment on above: Performed By: #### L 100.0100, L500.4050 ####[facility] [address] [place], [address] Creatinine [Mass/Vol] 0.90 mg/dL Normal 0.70-1.30 [facility] Comment on above: Result Comment: The validity of the calculated GFR GFRAA in patients over 70 years has not been determined. Clinical correlation is essential. Performed By: #### L 100.0100, L500.4050 ####[facility] [address] [place], [address] ECRCL 63.47 ml/min Normal [facility] Comment on above: Performed By: #### L 100.0100, L500.4050 ####[facility] [address] [place], [address] EST GFR - AA 102 mL/min Normal >60 [facility] Comment on above: Result Comment: Afri can [place] GFR Calc Performed By: #### L 100.0100, L500.4050 ####[facility] [address] [place], [address] GAP 7 Normal 5-15 [facility] Comment on above: Performed By: #### L 100.0100, L500.4050 ####[facility] [address] [place], [address] GFR/1.73 sq M.predicted among non-blacks MDRD (S/P/Bld) [Vol rate/Area] 84 mL/min/{1.73_m2} Normal >60 [facility] Comment on above: Result Comment: Non- GFR Calc Performed By: #### L 100.0100, L500.4050 ####[facility] [address] [place], [address] Globulin (S) [Mass/Vol] 3.4 g/dL Normal 2.2-4.2 [facility] Comment on above: Performed By: #### L 100.0100, L500.4050 ####[facility] [address] [place], [address] Glucose [Mass/Vol] 92 mg/dL Normal 74-106 [facility] Comment on above: Performed By: #### L 100.0100, L500.4050 ####[facility] [address] [place], [address] Potassium [Moles/Vol] 3.9 mmol/L Normal 3.5-5.1 [facility] Comment on above: Performed By: #### L 100.0100, L500.4050 ####[facility] [address] [place], [address] Sodium [Moles/Vol] 138 mmol/L Normal 136-145 [facility] Comment on above: Performed By: #### L 100.0100, L500.4050 ####[facility] [address] [place], [address] T PROT 6.1 g/dL Low 6.4-8.2 [facility] Comment on above: Performed By: #### L 100.0100, L500.4050 ####[facility] [address] [place], [address] Urea nitrogen [Mass/Vol] 31 mg/dL High 7-18 [facility] Comment on above: Performed By: #### L 100.0100, L500.4050 ####[facility] [address] [place], [address] Basic Metabolic Profile (BMP )on 05-22-2024 BUN/CRE 35.6 RATIO High 10-20 [facility] Comment on above: Performed By: #### L 500.2500 ####[facility] [address] [place], [address] CA,Total 8.8 mg/dL Normal 8.5-10.1 [facility] Comment on above: Performed By: #### L 500.2500 ####[facility] [address] [place], [address] Chloride [Moles/Vol] 108 mmol/L High 98-107 [facility] Comment on above: Performed By: #### L 500.2500 ####[facility] [address] [place], [address] CO2 [Moles/Vol] 26.0 mmol/L Normal 21.0-32.0 [facility] Comment on above: Performed By: #### L 500.2500 ####[facility] [address] [place], [address] Creatinine [Mass/Vol] 1.04 mg/dL Normal 0.70-1.30 [facility] Comment on above: Result Comment: The validity of the calculated GFR GFRAA in patients over 70 years has not been determined. Clinical correlation is essential. Performed By: #### L 500.2500 ####[facility] [address] [place], [address] ECRCL 54.93 ml/min Normal [facility] Comment on above: Performed By: #### L 500.2500 ####[facility] [address] [place], [address] EST GFR - AA 87 mL/min Normal >60 [facility] Comment on above: Result Comment: Afri can [place] GFR Calc Performed By: #### L 500.2500 ####[facility] [address] [place], [address] GAP 5 Normal 5-15 [facility] Comment on above: Performed By: #### L 500.2500 ####[facility] [address] [place], [address] GFR/1.73 sq M.predicted among non-blacks MDRD (S/P/Bld) [Vol rate/Area] 72 mL/min/{1.73_m2} Normal >60 [facility] Comment on above: Result Comment: Non- GFR Calc Performed By: #### L 500.2500 ####[facility] [address] [place], [address] Glucose [Mass/Vol] 96 mg/dL Normal 74-106 [facility] Comment on above: Performed By: #### L 500.2500 ####[facility] [address] [place], [address] Potassium [Moles/Vol] 3.6 mmol/L Normal 3.5-5.1 [facility] Comment on above: Performed By: #### L 500.2500 ####[facility] [address] [place], [address] Sodium [Moles/Vol] 140 mmol/L Normal 136-145 [facility] Comment on above: Performed By: #### L 500.2500 ####[facility] [address] [place], [address] Urea nitrogen [Mass/Vol] 37 mg/dL High 7-18 [facility] Comment on above: Performed By: #### L 500.2500 ####[facility] [address] [place], [address] COVID 19 AG RAPID (LEATHA Aparicio)on 05-22-2024 [...] RAPID METHOD BinaxNow COVID19 Ag Card Normal [facility] Comment on above: Performed By: #### M 100.505 ####[facility] [address] [place], [address] CBC W/Diff, Automatedon 05-02 SMEAR COMMENT SCANNED Normal [facility] Comment on above: Result Comment: MONO CYTOSIS PRESENT Performed By: #### L 500.4050, L100.0100 #### [facility] [address] [place], [address] Comprehensive Metabolic Prof ilon 05-20-2024 Albumin [Mass/Vol] 2.8 g/dL Low 3.2-5.0 [facility] Comment on above: Performed By: #### L 500.4050, L100.0100 #### [facility] [address] [place], [address] Albumin/Globulin [Mass ratio] 0.9 {ratio} Normal 0.9-2.4 [facility] Comment on above: Performed By: #### L 500.4050, L100.0100 #### [facility] [address] [place], [address] ALK P 68 U/L Normal 45-117 [facility] Comment on above: Performed By: #### L 500.4050, L100.0100 #### [facility] [address] [place], [address] ALT [Catalytic activity/Vol] 21 U/L Normal 16-61 [facility] Comment on above: Performed By: #### L 500.4050, L100.0100 #### [facility] [address] [place], [address] AST [Catalytic activity/Vol] 16 U/L Normal 15-37 [facility] Comment on above: Performed By: #### L 500.4050, L100.0100 #### [facility] [address] [place], [address] Bilirubin [Mass/Vol] 1.90 mg/dL High 0.20-1.00 [facility] Comment on above: Result Comment: For patients on eltrombopag therapy, use of Dimension [place] TBIL is not recommended. Performed By: #### L 500.4050, L100.0100 #### [facility] [address] [place], [address] BUN/CRE 29.4 RATIO High 10-20 [facility] Comment on above: Performed By: #### L 500.4050, L100.0100 #### [facility] [address] [place], [address] CA,Total 8.7 mg/dL Normal 8.5-10.1 [facility] Comment on above: Performed By: #### L 500.4050, L100.0100 #### [facility] [address] [place], [address] Chloride [Moles/Vol] 106 mmol/L Normal 98-107 [facility] Comment on above: Performed By: #### L 500.4050, L100.0100 #### [facility] [address] [place], [address] CO2 [Moles/Vol] 25.0 mmol/L Normal 21.0-32.0 [facility] Comment on above: Performed By: #### L 500.4050, L100.0100 #### [facility] [address] [place], [address] Creatinine [Mass/Vol] 0.85 mg/dL Normal 0.70-1.30 [facility] Comment on above: Result Comment: The validity of the calculated GFR GFRAA in patients over 70 years has not been determined. Clinical correlation is essential. Performed By: #### L 500.4050, L100.0100 #### [facility] [address] [place], [address] ECRCL 67.20 ml/min Normal [facility] Comment on above: Performed By: #### L 500.4050, L100.0100 #### [facility] [address] [place], [address] EST GFR - AA 109 mL/min Normal >60 [facility] Comment on above: Result Comment: Afri can [place] GFR Calc Performed By: #### L 500.4050, L100.0100 #### [facility] [address] [place], [address] GAP 6 Normal 5-15 [facility] Comment on above: Performed By: #### L 500.4050, L100.0100 #### [facility] [address] [place], [address] GFR/1.73 sq M.predicted among non-blacks MDRD (S/P/Bld) [Vol rate/Area] 90 mL/min/{1.73_m2} Normal >60 [facility] Comment on above: Result Comment: Non- GFR Calc Performed By: #### L 500.4050, L100.0100 #### [facility] [address] [place], [address] Globulin (S) [Mass/Vol] 3.1 g/dL Normal 2.2-4.[address] [facility] Comment on above: Performed By: #### L 500.4050, L100.0100 #### [facility] [address] [place], [address] Glucose [Mass/Vol] 102 mg/dL Normal 74-106 [facility] Comment on above: Result Comment: Fast ing Glucose result from 100 to 125 mg/dL suggests IMPAIRED HOMEOSTASIS per A.D.A. criteria. Performed By: #### L 500.4050, L100.0100 #### [facility] [address] [place], [address] Potassium [Moles/Vol] 3.4 mmol/L Low 3.5-5.1 [facility] Comment on above: Performed By: #### L 500.4050, L100.0100 #### [facility] [address] [place], [address] Sodium [Moles/Vol] 137 mmol/L Normal 136-145 [facility] Comment on above: Performed By: #### L 500.4050, L100.0100 #### [facility] [address] [place], [address] T PROT 5.9 g/dL Low 6.4-8.2 [facility] Comment on above: Performed By: #### L 500.4050, L100.0100 #### [facility] [address] [place], [place], [address] Urea nitrogen [Mass/Vol] 25 mg/dL High 7-18 [facility] Comment on above: Performed By: #### L 500.4050, L100.0100 #### [facility] [address] [place], [place], [address] CNPNon 05-19-2024 CNPN Telephone (TOMY) DENIZ KUMAR ([id number]) 1935 M Date Time Provider Department 05/19/24 BONIFACIO LEDBETTER During your visit today, we recorded the following information about you: Leanne Tejada RN 05/19/2024 11:50 AM Signed Patient's sister Gerri Barnes calling and would like Dr. Ledbetter to know that patient had a recent fall and is now at [facility] for therapy. Sister Gerri asking if Dr. Ledbetter would like to add any specific exercises to pt's regimen there? Please call Gerri with reply at [phone]. LEATHA Campa William J Jr., MD 05/19/2024 8:47 PM Signed Defer to those providers following patient at the transitional care unit. Rosa Retana MD, LPN 05/20/2024 8:57 AM Signed Spoke to Gerri, advised of message below. Verbalized understanding. Rosa Steiner LPN May 20, 2024 8:57 AM Allergies As of Date: 05/19/2024 Noted Allergy Reaction [id number] REDUCTASE INHIBIT*08/23/2023 17 - Myalgia Comments: Weakess, falls CLEARASIL MAXIMUM STRENGTH 09/16/2018 7 - Swelling Date Reviewed: 03/16/2024 Reviewed by: Bonifacio Ledbetter Jr., MD - Fully Assessed Reason for Visit: Patient Question [9317] Prescriptions as of 05/20/2024 - tolterodine (DETROL) [...] Status:Closed by ROSA STEINER on 05/20/24 Normal [facility] Basic Metabolic Profile (BMP )on 05-18-2024 BUN/CRE 24.9 RATIO High 10-20 [facility] Comment on above: Performed By: #### L 500.4050, L100.0100 #### [facility] [address] [place], [address] CA,Total 9.0 mg/dL Normal 8.5-10.1 [facility] Comment on above: Performed By: #### L 500.4050, L100.0100 #### [facility] [address] [place], [address] Chloride [Moles/Vol] 108 mmol/L High 98-107 [facility] Comment on above: Performed By: #### L 500.4050, L100.0100 #### [facility] [address] [place], [address] CO2 [Moles/Vol] 24.0 mmol/L Normal 21.0-32.0 [facility] Comment on above: Performed By: #### L 500.4050, L100.0100 #### [facility] [address] [place], [address] Creatinine [Mass/Vol] 0.72 mg/dL Normal 0.70-1.30 [facility] Comment on above: Result Comment: The validity of the calculated GFR GFRAA in patients over 70 years has not been determined. Clinical correlation is essential. Performed By: #### L 500.4050, L100.0100 #### [facility] [address] [place], [address] ECRCL 78.43 ml/min Normal [facility] Comment on above: Performed By: #### L 500.4050, L100.0100 #### [facility] [address] [place], [address] EST GFR - AA 132 mL/min Normal >60 [facility] Comment on above: Result Comment: Afri can [place] GFR Calc Performed By: #### L 500.4050, L100.0100 #### [facility] [address] [place], [address] GAP 5 Normal 5-15 [facility] Comment on above: Performed By: #### L 500.4050, L100.0100 #### [facility] [address] [place], [address] GFR/1.73 sq M.predicted among non-blacks MDRD (S/P/Bld) [Vol rate/Area] 109 mL/min/{1.73_m2} Normal >60 [facility] Comment on above: Result Comment: Non- GFR Calc Performed By: #### L 500.4050, L100.0100 #### [facility] [address] [place], [address] Glucose [Mass/Vol] 109 mg/dL High 74-106 [facility] Comment on above: Result Comment: Fast ing Glucose result from 100 to 125 mg/dL suggests IMPAIRED HOMEOSTASIS per A.D.A. criteria. Performed By: #### L 500.4050, L100.0100 #### [facility] [address] [place], [address] Potassium [Moles/Vol] 3.5 mmol/L Normal 3.5-5.1 [facility] Comment on above: Performed By: #### L 500.4050, L100.0100 #### [facility] [address] [place], [address] Sodium [Moles/Vol] 138 mmol/L Normal 136-145 [facility] Comment on above: Performed By: #### L 500.4050, L100.0100 #### [facility] [address] [place], [address] Urea nitrogen [Mass/Vol] 18 mg/dL Normal 7-18 [facility] Comment on above: Performed By: #### L 500.4050, L100.0100 #### [facility] [address] [place], [address] CBC W/Diff, Automatedon 05-01 Absolute Lymph 0.89 X10 3/uL Normal 0.83-4.51 [facility] Comment on above: Performed By: #### L 500.4050, L100.0100 #### [facility] [address] [place], [address] Absolute Neut 3.7 X10 3/uL Normal 2.0-7.7 [facility] Comment on above: Performed By: #### L 500.4050, L100.0100 #### [facility] [address] [place], [address] Basophils/100 WBC (Bld) 0.2 % Normal 0-[address] [facility] Comment on above: Performed By: #### L 500.4050, L100.0100 #### [facility] [address] [place], [address] Eosinophils/100 WBC (Bld) 0.2 % Normal 0-5 [facility] Comment on above: Performed By: #### L 500.4050, L100.0100 #### [facility] [address] [place], [address] Erythrocyte distribution width (RBC) [Ratio] 12.7 % Normal 11.6-14.6 [facility] Comment on above: Performed By: #### L 500.4050, L100.0100 #### [facility] [address] [place], [address] Hematocrit (Bld) [Volume fraction] 47.5 % Normal 40-54 [facility] Comment on above: Performed By: #### L 500.4050, L100.0100 #### [facility] [address] [place], [address] Hemoglobin (Bld) [Mass/Vol] 15.9 g/dL Normal 13.0-16.5 [facility] Comment on above: Performed By: #### L 500.4050, L100.0100 #### [facility] [address] [place], [address] IG% 1.100 High 0.0-0.9 [facility] Comment on above: Result Comment: IG% - Immature Granulocytes (promyelocytes, myelocytes and metamyelocytes) > 1% indicates that a LEFT SHIFT is Present. Performed By: #### L 500.4050, L100.0100 #### [facility] [address] [place], [address] Lymphocytes/100 WBC (Bld) 14.4 % Low 19-41 [facility] Comment on above: Performed By: #### L 500.4050, L100.0100 #### [facility] [address] [place], [address] MCH (RBC) [Entitic mass] 29.7 pg Normal 27.0-32.0 [facility] Comment on above: Performed By: #### L 500.4050, L100.0100 #### [facility] [address] [place], [address] MCHC (RBC) [Mass/Vol] 33.5 g/dL Normal 32-36 [facility] Comment on above: Performed By: #### L 500.4050, L100.0100 #### [facility] [address] [place], [address] MCV (RBC) [Entitic vol] 88.6 fL Normal 80-[address] [facility] Comment on above: Performed By: #### L 500.4050, L100.0100 #### [facility] [address] [place], [address] Monocytes/100 WBC (Bld) 24.2 % High 0-[address] [facility] Comment on above: Performed By: #### L 500.4050, L100.0100 #### [facility] [address] [place], [address] Neutrophils/100 WBC (Bld) 59.9 % Normal 47-70 [facility] Comment on above: Performed By: #### L 500.4050, L100.0100 #### [facility] [address] [place], [address] Nucleated RBC (Bld) [#/Vol] 0 10*3/uL Normal 0-5 [facility] Comment on above: Performed By: #### L 500.4050, L100.0100 #### [facility] [address] [place], [address] Platelet mean volume (Bld) [Entitic vol] 11.5 fL Normal 6.2-12.0 [facility] Comment on above: Performed By: #### L 500.4050, L100.0100 #### [facility] [address] [place], [address] Platelets (Bld) [#/Vol] 120 10*3/uL Low 150-450 [facility] Comment on above: Performed By: #### L 500.4050, L100.0100 #### [facility] [address] [place], [address] RBC (Bld) [#/Vol] 5.36 10*6/uL Normal 4.6-6.2 [facility] Comment on above: Performed By: #### L 500.4050, L100.0100 #### [facility] [address] [place], [address] RDW SD 41.2 fl Normal 35.1-43.9 [facility] Comment on above: Performed By: #### L 500.4050, L100.0100 #### [facility] [address] [place], [address] WBC (Bld) [#/Vol] 6.2 10*3/uL Normal 4.4-11.0 [facility] Comment on above: Performed By: #### L 500.4050, L100.0100 #### [facility] [address] [place], [address] Basic Metabolic Profile (BMP )on 05-17-2024 BUN/CRE 27.5 RATIO High 10-20 [facility] Comment on above: Performed By: #### L 500.2500, L100.0500 #### [facility] [address] [place], [address] CA,Total 8.7 mg/dL Normal 8.5-10.1 [facility] Comment on above: Performed By: #### L 500.2500, L100.0500 #### [facility] [address] [place], [address] Chloride [Moles/Vol] 108 mmol/L High 98-107 [facility] Comment on above: Performed By: #### L 500.2500, L100.0500 #### [facility] [address] [place], [address] CO2 [Moles/Vol] 27.0 mmol/L Normal 21.0-32.0 [facility] Comment on above: Performed By: #### L 500.2500, L100.0500 #### [facility] [address] [place], [address] Creatinine [Mass/Vol] 0.73 mg/dL Normal 0.70-1.30 [facility] Comment on above: Result Comment: The validity of the calculated GFR GFRAA in patients over 70 years has not been determined. Clinical correlation is essential. Performed By: #### L 500.2500, L100.0500 #### [facility] [address] [place], [address] ECRCL 78.43 ml/min Normal [facility] Comment on above: Performed By: #### L 500.2500, L100.0500 #### [facility] [address] [place], [address] EST GFR - AA 131 mL/min Normal >60 [facility] Comment on above: Result Comment: Afri can [place] GFR Calc Performed By: #### L 500.2500, L100.0500 #### [facility] [address] [place], [address] GAP 5 Normal 5-15 [facility] Comment on above: Performed By: #### L 500.2500, L100.0500 #### [facility] [address] [place], [address] GFR/1.73 sq M.predicted among non-blacks MDRD (S/P/Bld) [Vol rate/Area] 108 mL/min/{1.73_m2} Normal >60 [facility] Comment on above: Result Comment: Non- GFR Calc Performed By: #### L 500.2500, L100.0500 #### [facility] [address] [place], [address] Glucose [Mass/Vol] 88 mg/dL Normal 74-106 [facility] Comment on above: Performed By: #### L 500.2500, L100.0500 #### [facility] [address] [place], [address] Potassium [Moles/Vol] 3.3 mmol/L Low 3.5-5.1 [facility] Comment on above: Performed By: #### L 500.2500, L100.0500 #### [facility] [address] [place], [address] Sodium [Moles/Vol] 140 mmol/L Normal 136-145 [facility] Comment on above: Performed By: #### L 500.2500, L100.0500 #### [facility] [address] [place], [address] Urea nitrogen [Mass/Vol] 20 mg/dL High 7-18 [facility] Comment on above: Performed By: #### L 500.2500, L100.0500 #### [facility] [address] [place], [address] CBC W/Diff, Automatedon 05-01 SMEAR COMMENT SCANNED Normal [facility] Comment on above: Performed By: #### L 500.2500, L100.0500 #### [facility] [address] [place], [address] Anisocytosis Ql (Bld) 1+ Normal [facility] Comment on above: Performed By: #### L 500.2500, L100.0500 #### [facility] [address] [place], [address] PLT EST ADEQUATE Normal ADEQ [facility] Comment on above: Performed By: #### L 500.2500, L100.0500 #### [facility] [address] [place], [address] Urinalysis, Completeon 05-17 RBC 0-5 SEEN Normal 0-5 [facility] Comment on above: Order Comment: Urine , Random Performed By: #### L 500.4050, L100.0100 #### [facility] [address] [place], [address] WBC 0-5 SEEN Normal 0-5 [facility] Comment on above: Order Comment: Urine , Random Performed By: #### L 500.4050, L100.0100 #### [facility] [address] [place], [address] BACTERIA 0 SEEN Normal None Seen [facility] Comment on above: Order Comment: Urine , Random Performed By: #### L 500.4050, L100.0100 #### [facility] [address] [place], [address] EPI,SQUAMOUS 0 SEEN Normal 0-5 [facility] Comment on above: Order Comment: Urine , Random Performed By: #### L 500.4050, L100.0100 #### [facility] [address] [place], [address] Mucus Ql (Urine sed) 0 SEEN Normal [facility] Comment on above: Order Comment: Urine , Random Performed By: #### L 500.4050, L100.0100 #### [facility] [address] [place], [address] Basic Metabolic Profile (BMP )on 05-16-2024 BUN/CRE 32.5 RATIO High 10-20 [facility] Comment on above: Performed By: #### L 500.2500, L100.0500 #### [facility] [address] [place], [address] CA,Total 8.6 mg/dL Normal 8.5-10.1 [facility] Comment on above: Performed By: #### L 500.2500, L100.0500 #### [facility] [address] [place], [address] Chloride [Moles/Vol] 109 mmol/L High 98-107 [facility] Comment on above: Performed By: #### L 500.2500, L100.0500 #### [facility] [address] [place], [address] CO2 [Moles/Vol] 27.0 mmol/L Normal 21.0-32.0 [facility] Comment on above: Performed By: #### L 500.2500, L100.0500 #### [facility] [address] [place], [address] Creatinine [Mass/Vol] 0.83 mg/dL Normal 0.70-1.30 [facility] Comment on above: Result Comment: The validity of the calculated GFR GFRAA in patients over 70 years has not been determined. Clinical correlation is essential. Performed By: #### L 500.2500, L100.0500 #### [facility] [address] [place], [address] ECRCL 75.60 ml/min Normal [facility] Comment on above: Performed By: #### L 500.2500, L100.0500 #### [facility] [address] [place], [address] EST GFR - AA 112 mL/min Normal >60 [facility] Comment on above: Result Comment: Afri can [place] GFR Calc Performed By: #### L 500.2500, L100.0500 #### [facility] [address] [place], [address] GAP 6 Normal 5-15 [facility] Comment on above: Performed By: #### L 500.2500, L100.0500 #### [facility] [address] [place], [address] GFR/1.73 sq M.predicted among non-blacks MDRD (S/P/Bld) [Vol rate/Area] 93 mL/min/{1.73_m2} Normal >60 [facility] Comment on above: Result Comment: Non- GFR Calc Performed By: #### L 500.2500, L100.0500 #### [facility] [address] [place], [address] Glucose [Mass/Vol] 86 mg/dL Normal 74-106 [facility] Comment on above: Performed By: #### L 500.2500, L100.0500 #### [facility] [address] [place], [address] Potassium [Moles/Vol] 3.3 mmol/L Low 3.5-5.1 [facility] Comment on above: Performed By: #### L 500.2500, L100.0500 #### [facility] [address] [place], [address] Sodium [Moles/Vol] 142 mmol/L Normal 136-145 [facility] Comment on above: Performed By: #### L 500.2500, L100.0500 #### [facility] [address] [place], [address] Urea nitrogen [Mass/Vol] 27 mg/dL High 7-18 [facility] Comment on above: Performed By: #### L 500.2500, L100.0500 #### [facility] [address] [place], [address] CBC-Complete Blood Cnt No Di ffon 05-16-2024 Erythrocyte distribution width (RBC) [Ratio] 12.8 % Normal 11.6-14.6 [facility] Comment on above: Performed By: #### L 500.2500, L100.0500 #### [facility] [address] [place], [address] Hematocrit (Bld) [Volume fraction] 41.1 % Normal 40-54 [facility] Comment on above: Performed By: #### L 500.2500, L100.0500 #### [facility] [address] [place], [address] Hemoglobin (Bld) [Mass/Vol] 13.7 g/dL Normal 13.0-16.5 [facility] Comment on above: Performed By: #### L 500.2500, L100.0500 #### [facility] [address] [place], [address] MCH (RBC) [Entitic mass] 30.4 pg Normal 27.0-32.0 [facility] Comment on above: Performed By: #### L 500.2500, L100.0500 #### [facility] [address] [place], [address] MCHC (RBC) [Mass/Vol] 33.3 g/dL Normal 32-36 [facility] Comment on above: Performed By: #### L 500.2500, L100.0500 #### [facility] [address] [place], [address] MCV (RBC) [Entitic vol] 91.1 fL Normal 80-[address] [facility] Comment on above: Performed By: #### L 500.2500, L100.0500 #### [facility] [address] [place], [address] Platelet mean volume (Bld) [Entitic vol] 12.0 fL Normal 6.2-12.0 [facility] Comment on above: Performed By: #### L 500.2500, L100.0500 #### [facility] [address] [place], [address] Platelets (Bld) [#/Vol] 104 10*3/uL Low 150-450 [facility] Comment on above: Performed By: #### L 500.2500, L100.0500 #### [facility] [address] [place], [address] RBC (Bld) [#/Vol] 4.51 10*6/uL Low 4.6-6.2 [facility] Comment on above: Performed By: #### L 500.2500, L100.0500 #### [facility] [address] [place], [address] RDW SD 42.4 fl Normal 35.1-43.9 [facility] Comment on above: Performed By: #### L 500.2500, L100.0500 #### [facility] [address] [place], [address] WBC (Bld) [#/Vol] 5.6 10*3/uL Normal 4.4-11.0 [facility] Comment on above: Performed By: #### L 500.2500, L100.0500 #### [facility] [address] [place], [address] CRPon 05-16-2024 C-REACTIVE PROT 5.99 mg/L High 0.0-3.0 [facility] Comment on above: Order Comment: ADDED TO AM LABS Result Comment: C-Re active Protein (CRP) provides useful information for the diagnosis, therapy and monitoring of inflammatory processes and associated diseases. For the evaluation of Relative Risk for Cardiovascular Disease, a High Sensitivity CRP (HSCRP) should be ordered. Performed By: #### L 501.6710, L101.9900 ####[facility] [address] [place], [address] Erythrocyte Sed Rateon 05-16 SED RATE 5 mm/hr Normal 0-20 [facility] Comment on above: Order Comment: ADDED TO AM LABS Performed By: #### L 501.6710, L101.9900 ####[facility] [address] [place], [address] Phosphoruson 05-16-2024 Phosphate [Mass/Vol] 2.2 mg/dL Low 2.5-4.9 [facility] Comment on above: Performed By: #### L 500.2500, L100.0500 #### [facility] [address] [place], [address] 12 Lead EKGon 05-15-2024 12 Lead EKG [facility] Cardi[facility] Services [address] [place] [address] 12 Lead EKG 05/15/24 1313 MR#: [id number] Acct: [id number] Name: DENIZ KUMAR Rep #: [id number] : 1935 88 From: Pierre Mcgee MD Attending Dr: Dr. Kendall Dowling DO Status: ADM ROSHNI Ordering Dr: Mark Boudreaux DO Date: 4 Location: [facility] Sex: M C Admitted: 05/15/24 Test Reason : REPEAT Blood Pressure : */* mmHG Vent. Rate : 87 BPM Atrial Rate : 87 BPM P-R Int : 174 ms QRS Dur : 94 ms QT Int : 382 ms P-R-T Axes : 28 -38 7 degrees QTcB Int : 459 ms Normal sinus rhythm Left axis deviation Abnormal ECG Confirmed by EVERARDO RICH, CEDRIC ([id number]), news videotape editor ADELSO QUINTANA ([id number]) on 05/19/2024 7:55:55 AM Referred By: Confirmed By: CEDRIC MCGEE MD 05/19/24 0755 Date Pierre Mcgee MD CC: Dr. Mark Boudreaux DO; Dr. Kendall Dowling DO; Dr. Vadim Deras MD Signed [facility] 12 Lead EKG [facility] Services [address] [place] [address] 12 Lead EKG 05/15/24 1114 MR#: [id number] Acct: [id number] Name: DENIZ KUMAR Rep #: [id number] : 1935 88 From: Pierre Mcgee MD Attending Dr: Dr. Kendall Dowling DO Status: ADM ROSHNI Ordering Dr: Mark Boudreaux DO Date: 4 Location: [facility] Sex: M C Admitted: 05/15/24 Test Reason : Blood Pressure : */* mmHG Vent. Rate : 81 BPM Atrial Rate : 81 BPM P-R Int : 166 ms QRS Dur : 92 ms QT Int : 394 ms P-R-T Axes : 40 -36 8 degrees QTcB Int : 457 ms Normal sinus rhythm Left axis deviation Abnormal ECG Confirmed by EVERARDO RICH, CEDRIC ([id number]), news videotape editor ADELSO QUINTANA ([id number]) on 05/19/2024 7:55:44 AM Referred By: Confirmed By: CEDRIC MCGEE MD 05/19/24 0755 Date Pierre Mcgee MD CC: Dr. Mark Boudreaux DO; Dr. Kendall Dowling DO; Dr. Vadim Deras MD Signed Normal [facility] Basic Metabolic Profile (BMP )on 05-15-2024 BUN/CRE 32.5 RATIO High 10-20 [facility] Comment on above: Order Comment: 119 Performed By: #### L 100.0500, L500.2500 #### [facility] [address] [place], [address] CA,Total 9.1 mg/dL Normal 8.5-10.1 [facility] Comment on above: Order Comment: 119 Performed By: #### L 100.0500, L500.2500 #### [facility] [address] [place], [address] Chloride [Moles/Vol] 107 mmol/L Normal 98-107 [facility] Comment on above: Order Comment: 119 Performed By: #### L 100.0500, L500.2500 #### [facility] [address] [place], [address] CO2 [Moles/Vol] 28.0 mmol/L Normal 21.0-32.0 [facility] Comment on above: Order Comment: 119 Performed By: #### L 100.0500, L500.2500 #### [facility] [address] [place], [address] Creatinine [Mass/Vol] 0.89 mg/dL Normal 0.70-1.30 [facility] Comment on above: Order Comment: 119 Result Comment: The validity of the calculated GFR GFRAA in patients over 70 years has not been determined. Clinical correlation is essential. Performed By: #### L 100.0500, L500.2500 #### [facility] [address] [place], [address] ECRCL 71.03 ml/min Normal [facility] Comment on above: Order Comment: 119 Performed By: #### L 100.0500, L500.2500 #### [facility] [address] [place], [address] EST GFR - AA 104 mL/min Normal >60 [facility] Comment on above: Order Comment: 119 Result Comment: Afri can [place] GFR Calc Performed By: #### L 100.0500, L500.2500 #### [facility] [address] [place], [address] GAP 6 Normal 5-15 [facility] Comment on above: Order Comment: 119 Performed By: #### L 100.0500, L500.2500 #### [facility] [address] [place], [address] GFR/1.73 sq M.predicted among non-blacks MDRD (S/P/Bld) [Vol rate/Area] 86 mL/min/{1.73_m2} Normal >60 [facility] Comment on above: Order Comment: 119 Result Comment: Non- GFR Calc Performed By: #### L 100.0500, L500.2500 #### [facility] [address] [place], [address] Glucose [Mass/Vol] 80 mg/dL Normal 74-106 [facility] Comment on above: Order Comment: 119 Performed By: #### L 100.0500, L500.2500 #### [facility] [address] [place], [address] Potassium [Moles/Vol] 3.4 mmol/L Low 3.5-5.1 [facility] Comment on above: Order Comment: 119 Performed By: #### L 100.0500, L500.2500 #### [facility] [address] [place], [address] Sodium [Moles/Vol] 141 mmol/L Normal 136-145 [facility] Comment on above: Order Comment: 119 Performed By: #### L 100.0500, L500.2500 #### [facility] [address] [place], [address] Urea nitrogen [Mass/Vol] 29 mg/dL High 7-18 [facility] Comment on above: Order Comment: 119 Performed By: #### L 100.0500, L500.2500 #### [facility] [address] [place], [address] CBC W/Diff, Automatedon 11-07 05-2023 Absolute Lymph 0.59 X10 3/uL Low 0.83-4.51 [facility] Comment on above: Performed By: #### L 100.0500, L500.2500 #### [facility] [address] [place], [address] Absolute Neut 5.3 X10 3/uL Normal 2.0-7.7 [facility] Comment on above: Performed By: #### L 100.0500, L500.2500 #### [facility] [address] [place], [address] Basophils/100 WBC (Bld) 0.3 % Normal 0-[address] [facility] Comment on above: Performed By: #### L 100.0500, L500.2500 #### [facility] [address] [place], [address] Eosinophils/100 WBC (Bld) 0.0 % Normal 0-5 [facility] Comment on above: Performed By: #### L 100.0500, L500.2500 #### [facility] [address] [place], [address] Erythrocyte distribution width (RBC) [Ratio] 12.7 % Normal 11.6-14.6 [facility] Comment on above: Performed By: #### L 100.0500, L500.2500 #### [facility] [address] [place], [address] Hematocrit (Bld) [Volume fraction] 45.0 % Normal 40-54 [facility] Comment on above: Performed By: #### L 100.0500, L500.2500 #### [facility] [address] [place], [address] Hemoglobin (Bld) [Mass/Vol] 15.1 g/dL Normal 13.0-16.5 [facility] Comment on above: Performed By: #### L 100.0500, L500.2500 #### [facility] [address] [place], [address] IG% 2.400 High 0.0-0.9 [facility] Comment on above: Result Comment: IG% - Immature Granulocytes (promyelocytes, myelocytes and metamyelocytes) > 1% indicates that a LEFT SHIFT is Present. Performed By: #### L 100.0500, L500.2500 #### [facility] [address] [place], [address] Lymphocytes/100 WBC (Bld) 7.8 % Low 19-41 [facility] Comment on above: Performed By: #### L 100.0500, L500.2500 #### [facility] [address] [place], [address] MCH (RBC) [Entitic mass] 30.8 pg Normal 27.0-32.0 [facility] Comment on above: Performed By: #### L 100.0500, L500.2500 #### [facility] [address] [place], [address] MCHC (RBC) [Mass/Vol] 33.6 g/dL Normal 32-36 [facility] Comment on above: Performed By: #### L 100.0500, L500.2500 #### [facility] [address] [place], [address] MCV (RBC) [Entitic vol] 91.8 fL Normal 80-[address] [facility] Comment on above: Performed By: #### L 100.0500, L500.2500 #### [facility] [address] [place], [address] Monocytes/100 WBC (Bld) 19.5 % High 0-[address] [facility] Comment on above: Performed By: #### L 100.0500, L500.2500 #### [facility] [address] [place], [address] Neutrophils/100 WBC (Bld) 70.0 % Normal 47-70 [facility] Comment on above: Performed By: #### L 100.0500, L500.2500 #### [facility] [address] [place], [address] Nucleated RBC (Bld) [#/Vol] 0 10*3/uL Normal 0-5 [facility] Comment on above: Performed By: #### L 100.0500, L500.2500 #### [facility] [address] [place], [address] Platelet mean volume (Bld) [Entitic vol] 12.1 fL High 6.2-12.0 [facility] Comment on above: Performed By: #### L 100.0500, L500.2500 #### [facility] [address] [place], [address] Platelets (Bld) [#/Vol] 102 10*3/uL Low 150-450 [facility] Comment on above: Performed By: #### L 100.0500, L500.2500 #### [facility] [address] [place], [address] RBC (Bld) [#/Vol] 4.90 10*6/uL Normal 4.6-6.2 [facility] Comment on above: Performed By: #### L 100.0500, L500.2500 #### [facility] [address] [place], [address] RDW SD 43.1 fl Normal 35.1-43.9 [facility] Comment on above: Performed By: #### L 100.0500, L500.2500 #### [facility] [address] [place], [address] WBC (Bld) [#/Vol] 7.6 10*3/uL Normal 4.4-11.0 [facility] Comment on above: Performed By: #### L 100.0500, L500.2500 #### [facility] [address] [place], [address] Chest 1 View (Portable)on Chest 1 View (Portable) [facility] Imaging Services [address] [place] [address] Chest 1 View (Portable) MR#: [id number] Acct: [id number] Name: DENIZ KUMAR Rep #: [id number] : 1935 M 88 From: Kelton Dwyer MD PCP: Dr. Vadim Deras MD Status: REG ER Study: Chest 1 View (Portable) Date of Exam: 05/15/24 Exam# [id number] Ordering Dr: [place] [id number] EXAM: XR CHEST, 1 VIEW CLINICAL INDICATION: [...] Mark Boudreaux DO; Dr. Vadim Deras MD 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: Signed Normal [facility] Echo Completeon 05-15-2024 Echo Complete [facility] Cardiovascular Services [address] [place] [address] Echo Complete 05/15/24 1532 MR#: [id number] Acct: [id number] Name: DENIZ KUMAR Rep #: [id number] : 1935 88 From: Pierre Mcgee MD [...] Date Dictated: 05/15/24 1532 Date Transcribed: 05/16/241758 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: Signed Normal [facility] Emergency Department Summary on 05-15-2024 Emergency Department Summary [facility] Medical Records Department [address] [place] [address] Emergency Department Summary 05/15/24 MR#: [id number] Acct: [id number] Name: DENIZ KUMAR Rep #: [id number] : 1935 88 From: Mark Boudreaux DO PCP: Dr. Vadim Deras MD Status:ADM IN Location: [place] [address] HPI History of Present Illness Chief Complaint: [...] deficits Psych: Cooperative, appropriate mood and affect [facility] Medical History (Updated 05/15/24 @ 10:49 by Didi Ievy) Spinal stenosis TIA (transient ischemic attack) Diverticulosis [...] (Dog) [place] (more content not included)... Normal [facility] H AND P Exam - Hospitaliston 05-15-2024 H&P Exam - Hospitalist [facility] Medical Records Department [address] [place] [address] H P Exam - Hospitalist 05/15/24 1331 MR#: [id number] Acct: [id number] Name: DENIZ KUMAR Rep #: [id number] : 1935 88 From: Jon Arce DO PCP: Dr. Vadim Deras MD Status:ADM IN Location: [facility] [id number] HPI - General General Date of Admission: 05/15/24 Date of Service: 05/15/24 Chief Complaint: Worsening leg weakness and difficulty with ambulation HPI Narrative DENIZ KUMAR, is a 88 M who presented to [facility] ED on 05/15/2024 with worsening leg weakness [...] currently. Will be admitted for further management. [facility] Medical History (Updated 05/15/24 @ 17:[address] Jon Mosteller, DO) Spinal stenosis TIA (transient ischemic attack) [...] (Updated 06/28/23 @ 16:[address] Mirian Fraris DO) Father Cancer Prostate cancer Mother Cancer Liver cancer Sister Hypertension Hyperlipidemia Surgical History (Updated 07/26/23 @ 00:17 by Shelbie Cristina) History of open reduction and internal fixation (ORIF) procedure Social History (Updated 06/28/23 @ 16:[address] Mirian Farris DO) household members: none housi (more content not included)... Normal [facility] L501.4020on 05-15-2024 TROPONIN-I HS 97 pg/mL High 3.0-78.0 [facility] Comment on above: Order Comment: 'TROP ' Serial specimen #1, #2 or #3: 3 Result Comment: Plea se Note: New Test Units and Gender Specific Reference Ranges. For more information see Policy Stat Procedure [place] High Sensitivity Troponin (TNIH) and attachments. Performed By: #### L 500.4050, L100.0100 #### [facility] [address] [place], [address] TROPONIN-I HS 96 pg/mL High 3.0-78.0 [facility] Comment on above: Order Comment: 'TROP ' Serial specimen #1, #2 or #3: 2 Result Comment: Plea se Note: New Test Units and Gender Specific Reference Ranges. For more information see Policy Stat Procedure [place] High Sensitivity Troponin (TNIH) and attachments. Performed By: #### L 500.4050, L100.0100 #### [facility] [address] [place], [address] TROPONIN-I HS 69 pg/mL Normal 3.0-78.0 [facility] Comment on above: Order Comment: 119 Result Comment: Plea se Note: New Test Units and Gender Specific Reference Ranges. For more information see Policy Stat Procedure [place] High Sensitivity Troponin (TNIH) and attachments. Performed By: #### L 100.0500, L500.2500 #### [facility] [address] [place], [address] Lumbar Spine 2 or 3 Viewson 05-15-2024 Lumbar Spine 2 or 3 Views [facility] Imaging Services [address] [place] [address] Lumbar Spine 2 or 3 Views MR#: [id number] Acct: [id number] Name: DENIZ KUMAR Rep #: [id number] : 1935 M 88 From: Kelton Dwyer MD PCP: Dr. Vadim Deras MD Status: ADM IN Study: Lumbar Spine 2 or 3 Views Date of Exam: Exam# [id number] Ordering Dr: [place] [id number] EXAM: XR LUMBOSACRAL SPINE, 2 OR 3 [...] Jon Arce DO; Dr. Vadim Deras MD 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: Signed Normal [facility] Magnesiumon 05-15-2024 Magnesium [Mass/Vol] 1.8 mg/dL Normal 1.6-2.6 [facility] Comment on above: Order Comment: 'TROP ' Serial specimen #1, #2 or #3: 2 Performed By: #### L 500.2500, L100.0500 #### [facility] [address] [place], [address] Urinalysis, Completeon 05-15 BACTERIA RARE Normal None Seen [facility] Comment on above: Order Comment: CLEAN CATCH Performed By: #### L 500.2500, L100.0500 #### [facility] [address] [place], [address] RBC 0-5 SEEN Normal 0-5 [facility] Comment on above: Order Comment: CLEAN CATCH Performed By: #### L 500.2500, L100.0500 #### [facility] [address] [place], [address] BILIRUBIN URINE Negative Normal Negative [facility] Comment on above: Order Comment: CLEAN CATCH Performed By: #### L 500.2500, L100.0500 #### [facility] [address] [place], [address] Clarity (U) Clear Normal Clear [facility] Comment on above: Order Comment: CLEAN CATCH Performed By: #### L 500.2500, L100.0500 #### [facility] [address] [place], [address] Color (U) Straw Normal Yellow [facility] Comment on above: Order Comment: CLEAN CATCH Performed By: #### L 500.2500, L100.0500 #### [facility] [address] [place], [address] GLUCOSE, UR Normal Normal Normal [facility] Comment on above: Order Comment: CLEAN CATCH Performed By: #### L 500.2500, L100.0500 #### [facility] [address] [place], [address] KETONE UR Negative Normal Negative [facility] Comment on above: Order Comment: CLEAN CATCH Performed By: #### L 500.2500, L100.0500 #### [facility] [address] [place], [address] LEUK ESTERASE Negative Normal Negative [facility] Comment on above: Order Comment: CLEAN CATCH Performed By: #### L 500.2500, L100.0500 #### [facility] [address] [place], [address] Nitrite Ql (U) Negative Normal Negative [facility] Comment on above: Order Comment: CLEAN CATCH Performed By: #### L 500.2500, L100.0500 #### [facility] [address] [place], [address] OCCULT BLOOD-UR 25 /ul Abnormal Negative [facility] Comment on above: Order Comment: CLEAN CATCH Performed By: #### L 500.2500, L100.0500 #### [facility] [address] [place], [address] pH UR 7.0 Normal 5.0 - 8.0 [facility] Comment on above: Order Comment: CLEAN CATCH Performed By: #### L 500.2500, L100.0500 #### [facility] [address] [place], [address] PROT DIPSTX 30 mg/dl Abnormal Negative [facility] Comment on above: Order Comment: CLEAN CATCH Performed By: #### L 500.2500, L100.0500 #### [facility] [address] [place], [address] SP.GR. DIPSTX 1.010 Normal 1.002-1.030 [facility] Comment on above: Order Comment: CLEAN CATCH Performed By: #### L 500.2500, L100.0500 #### [facility] [address] [place], [address] UROBILI Normal Normal Normal [facility] Comment on above: Order Comment: CLEAN CATCH Performed By: #### L 500.2500, L100.0500 #### [facility] [address] [place], [address] EPI,SQUAMOUS 0 SEEN Normal 0-5 [facility] Comment on above: Order Comment: CLEAN CATCH Performed By: #### L 500.2500, L100.0500 #### [facility] [address] [place], [address] Mucus Ql (Urine sed) 0 SEEN Normal [facility] Comment on above: Order Comment: CLEAN CATCH Performed By: #### L 500.2500, L100.0500 #### [facility] [address] [place], [address] WBC 0 SEEN Normal 0-5 [facility] Comment on above: Order Comment: CLEAN CATCH Performed By: #### L 500.2500, L100.0500 #### [facility] [address] [place], [address] CNPNon 04-27-2024 CNPN Telephone (INTMWS) DENIZ KUMAR ([id number]) 1935 M Date Time Provider Department 04/27/24 [...] if pcp would resend this Rx to [facility]. Pended. Allergies As of Date: 04/27/2024 Noted Allergy Reaction SCYRUSN-GLW-GNX REDUCTASE INHIBIT*08/23/2023 17 - Myalgia Comments: Weakess, falls CLEARASIL MAXIMUM STRENGTH 09/16/2018 7 - Swelling Date Reviewed: 03/16/2024 Reviewed by: Bonifacio Ledbetter Jr., MD - Fully Assessed Reason for Visit: Patient Question [0851] Visit Diagnoses:Benign prostatic hyperplasia with urinary obstruction [...] Encounter Status:Closed by VADIM DERAS on 04/27/24 [facility] 04-13-2024 CNPN Telephone (SLEWST) DENIZ KUMAR ([id number]) 1935 M Date Time Provider Department 04/13/24 [...] As of Date: 04/13/2024 Noted Allergy Reaction SBJJLGE-LFC-MIW REDUCTASE INHIBIT*08/23/2023 17 - Myalgia Comments: Weakess, [...] Encounter Status:Closed by ROBINA COATS on 07/20/24 [facility] DEN[facility]UM[facility] ([id number]) 1935 M Date Time Provider Department 04/12/24 BONIFACIO LEDBETTER JR During your visit today, we recorded the following information about you: Allergies As of Date: 04/12/2024 Noted Allergy Reaction PATZXCB-XFY-HBX REDUCTASE INHIBIT*08/23/2023 17 - Myalgia Comments: Weakess, falls CLEARASIL MAXIMUM STRENGTH 09/16/2018 7 - Swelling Date Reviewed: 03/16/2024 Reviewed by: Bonifacio Ledbetter Jr., MD - Fully Assessed Primary Visit Diagnosis:Cervical stenosis of spine [M48.02] Other Visit Diagnosis:Spinal stenosis of lumbar region, unspecified whether neurogenic claudication present [M48.061] Order(s):CONSULT TO [facility] [[id number]] Order #: [id number]: 1 FUTURE Prescriptions as of 04/12/2024 - [...] Status:Closed by BONIFACIO LEDBETTER on 04/12/24 Normal [facility] MR Brain WO contraston 04-10 IMPRESSION: No acute intracranial pathology. 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: KATIA Transcribe Date/Time: Apr 10 2024 9:04A Dictated by : KASEY IBANEZ MD This examination was interpreted and the report reviewed and electronically signed by: KASEY IBANEZ MD on Apr 10 2024 9:08AM [facility] DIVISION OF RADIOLOGY * * *Final Report* * * DATE OF EXAM: Apr 10 2024 8:43AM [facility] 0294 - MRI BRAIN WO IVCON / [...] tissues are unremarkable. DIVISION OF RADIOLOGY Provider, [facility] - 04/10/2024 * * *Final Report* * * DATE OF EXAM: Apr 10 2024 8:43AM [facility] 0294 - MRI BRAIN WO IVCON / [...] unremarkable. IMPRESSION IMPRESSION: No acute intracranial pathology. 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: PSCB Transcribe Date/Time: Apr 10 2024 9:04A Dictated by : KASEY IBANEZ MD This examination was interpreted and the report reviewed and electronically signed by: KASEY IBANEZ MD on Apr 10 2024 9:08AM EST [facility] MR Brain WO contrastOrdered By: Ccf Provider on 04-10-2024 [facility] MR Cervical spine WO contras ton 04-10-2024 * * *Final Report* * * DATE OF EXAM: Apr 10 2024 8:43AM [facility] 0297 - MRI CERVICAL SPINE WO IVCON [...] normal in appearance. DIVISION OF RADIOLOGY Provider, [facility] - 04/10/2024 * * *Final Report* * * DATE OF EXAM: Apr 10 2024 8:43AM [facility] 0297 - MRI CERVICAL SPINE WO IVCON [...] and assume there are 5 lumbar-type vertebrae. 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: PSCJericho Transcribe Date/Time: Apr 10 2024 9:08A Dictated by : KASEY IBANEZ MD This examination was interpreted and the report reviewed and electronically signed by: KASEY IBANEZ MD on Apr 10 2024 9:19AM EST [facility] MR Lumbar spine WO contrasto n [...] appearance. DIVISION OF RADIOLOGY Provider, [facility] [place] - 04/10/2024 * * *Final Report* * * DATE OF EXAM: Apr 10 2024 8:43AM [facility] 0303 - MRI LUMBAR SPINE WO IVCON [...] and assume there are 5 lumbar-type vertebrae. 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: PSCB Transcribe Date/Time: Apr 10 2024 9:08A Dictated by : KASEY IBANEZ MD This examination was interpreted and the report reviewed and electronically signed by: KASEY IBANEZ MD on Apr 10 2024 9:19AM [facility] MRI BRAIN WO IVCONon 11-2 024 MRI BRAIN WO IVCON * * *Final Report* * * DATE OF EXAM: Apr 10 2024 8:43AM [facility] 0294 - MRI BRAIN WO IVCON / [...] are unremarkable. IMPRESSION: No acute intracranial pathology. 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: KATIA Transcribe Date/Time: Apr 10 2024 9:04A Dictated by : KASEY IBANEZ MD This examination was interpreted and the report reviewed and electronically signed by: KASEY IBANEZ MD on Apr 10 2024 9:08AM EST [id number] Normal [facility] MRI CERVICAL SPINE WO IVCONo n 04-10-2024 MRI CERVICAL SPINE WO IVCON * * *Final Report* * * DATE OF EXAM: Apr 10 2024 8:43AM [facility] 0297 - MRI CERVICAL SPINE WO IVCON [...] and assume there are 5 lumbar-type vertebrae. 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: KATIA Transcribe Date/Time: Apr 10 2024 9:08A Dictated by : KASEY IBANEZ MD This examination was interpreted and the report reviewed and electronically signed by: KASEY IBANEZ MD on Apr 10 2024 9:19AM EST [id number] Normal [facility] MRI LUMBAR SPINE WO IVCONon 04-10-2024 MRI LUMBAR SPINE WO IVCON * * *Final Report* * * DATE OF EXAM: Apr 10 2024 8:43AM [facility] 0303 - MRI LUMBAR SPINE WO IVCON [...] and assume there are 5 lumbar-type vertebrae. 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: [facility] Transcribe Date/Time: Apr 10 2024 9:08A Dictated by : KASEY IBANEZ MD This examination was interpreted and the report reviewed and electronically signed by: KASEY IBANEZ MD on Apr 10 2024 9:19AM EST [id number] Normal [facility] No Panel Informationon 04-10 IMPRESSION: Cervical spine degenerative changes most pronounced at C4-5 and C5-6. Lumbar spine degenerative changes most pronounced at L3-4. Cervical Anatomic Variant: None. Assume 7 cervical vertebrae with counting from the craniocervical junction. Anatomic Thoracic/Lumbar Variant: None. L4-5 is considered the level of the iliac crest and assume there are 5 lumbar-type vertebrae. 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: [facility] Transcribe Date/Time: Apr 10 2024 9:08A Dictated by : KASEY IBANEZ MD This examination was interpreted and the report reviewed and electronically signed by: KASEY IBANEZ MD on Apr 10 2024 9:19AM EST DIVISION OF RADIOLOGY [facility] Radiology Study observation (narrative) [facility] 03-13-2024 CNOV Office Visit (NEMOWS ) DENIZ KUMAR ([id number]) 1935 M Date Time Provider Department 03/13/24 [...] lower back, rear end and thighs per patient. Patient does reports falls since that resulting [...] URINALYSIS S (more content not included)... Normal [facility] 02-25-2024 [facility] ([id number]) 1935 M Date Time Provider Department 02/25/24 [facility] During your visit today, we recorded the following information about you: Melanie Naylor LPN 02/25/2024 4:01 PM Signed Pt calls to report that insurance will not cover tolterodine 1 mg tab so he will not be taking medication. ESTELA Borrero Victor H, MD 02/26/2024 3:18 AM Signed Noted. Allergies As of Date: 02/25/2024 Noted Allergy Reaction JIBSVOS-MOS-VUY REDUCTASE INHIBIT*08/23/2023 17 - Myalgia Comments: Weakess, [...] Encounter Status:Closed by VADIM DERAS on 02/26/24 [facility] CNOVon 02-21-2024 CNOV Office Visit (INTMWS ) ESTEFANYDENIZ CAPELLAN ([id number]) 1935 M Date Time Provider Department 02/21/24 [...] AM Signed This note was created using [employer]. Subjective Deniz Kumar is a 88 year old male. He was doing home exercises and working out at for leg strengthening. He complained of ongoing edema, and nocturia. Oxybutynin was no longer effective. 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 Review of Systems Constitutional: Negative [...] current fa (more content not included)... Normal [facility] Basic metabolic 2000 panelon 02-14-2024 Anion gap [Moles/Vol] 8 mmol/L Normal 8-15 [facility] Comment on above: Order Comment: Speci men Type: BLOOD SPECIMENOrdering Facility: [facility] Address: [address] [place] [address] Performed By: #### 2 4321-2 ####[facility] [id number] [place] [address] [place] Calcium [Mass/Vol] 9.7 mg/dL Normal 8.5-10.2 [facility] Comment on above: Order Comment: Speci men Type: BLOOD SPECIMENOrdering Facility: [facility] Address: [address] [place] [address] Performed By: #### 2 4321-2 ####[facility] [id number] [place] [address] [place] Chloride [Moles/Vol] 102 mmol/L Normal 98-107 [facility] Comment on above: Order Comment: Speci men Type: BLOOD SPECIMENOrdering Facility: [facility] Address: [address] [place] [address] Performed By: #### 2 4321-2 ####[facility] [id number] [place] [address] [place] CO2 [Moles/Vol] 26 mmol/L Normal 22-30 [facility] Comment on above: Order Comment: Speci men Type: BLOOD SPECIMENOrdering Facility: [facility] Address: [address] [place] [address] Performed By: #### 2 4321-2 ####[facility] [id number] [place] [address] [place] Creatinine [Mass/Vol] 0.82 mg/dL Normal 0.73-1.22 [facility] Comment on above: Order Comment: Speci men Type: BLOOD SPECIMENOrdering Facility: [facility] Address: [address] [place] [address] Performed By: #### 2 4321-2 ####[facility] [id number] [address] OF [facility] Creatinine and Glomerular filtration rate.predicted panel (S/P/Bld) 85 mL/min/1.73m??? Normal >=60 [facility] Comment on above: Order Comment: Speci men Type: BLOOD SPECIMENOrdering Facility: [facility] Address: [address] [place] [address] Result Comment: Franny mated Glomerular Filtration Rate [...] actual GFR. Performed By: #### 2 4321-2 ####[facility] MILLWNCLIA [id number] [place] [address] [place] Glucose [Mass/Vol] 88 mg/dL Normal 74-99 [facility] Comment on above: Order Comment: Speci men Type: BLOOD SPECIMENOrdering Facility: [facility] Address: [address] [place], [place] [id number] Result Comment: The [place] Diabetes Association (ADA) provides guidance for cutoff [...] Standards of Medical Care in Diabetes 2016, [place] [employer] Association. Diabetes Care. 2016.39(Suppl 1). Performed By: #### 2 4321-2 ####[facility] [id number] [place] [address] [place] Potassium [Moles/Vol] 4.2 mmol/L Normal 3.7-5.1 [facility] Comment on above: Order Comment: Speci men Type: BLOOD SPECIMENOrdering Facility: [facility] Address: [address] [place] [address] Performed By: #### 2 4321-2 ####[facility] [id number] [place] [address] [place] Sodium [Moles/Vol] 136 mmol/L Normal 136-144 [facility] Comment on above: Order Comment: Speci men Type: BLOOD SPECIMENOrdering Facility: [facility] Address: [address] [place] [address] Performed By: #### 2 4321-2 ####[facility] [id number] [place] [address] [place] Urea nitrogen [Mass/Vol] 18 mg/dL Normal 9-24 [facility] Comment on above: Order Comment: Speci men Type: BLOOD SPECIMENOrdering Facility: [facility] Address: [address] [place] [address] Performed By: #### 2 4321-2 ####[facility] HEYDIStaceyRIZWAN [id number] [place] [address] [place] CBC panel Auto (Bld)on 02-13 Erythrocyte distribution width (RBC) [Ratio] 13.2 % Normal 11.5-15.0 [facility] Comment on above: Order Comment: Speci men Type: BLOOD SPECIMENOrdering Facility: [facility] Address: [address] [place] [address] Performed By: #### 5 8410-2 ####[facility]IDACHRIST[facility] [id number] [place] [address] [place] Hematocrit (Bld) [Volume fraction] 43.5 % Normal 39.0-51.0 [facility] Comment on above: Order Comment: Speci men Type: BLOOD SPECIMENOrdering Facility: [facility] Address: [address] [place] [address] Performed By: #### 5 8410-2 ####[facility] HEYDILA COSTERIZWAN [id number] [place] [address] [place] Hemoglobin (Bld) [Mass/Vol] 14.7 g/dL Normal 13.0-17.0 [facility] Comment on above: Order Comment: Speci men Type: BLOOD SPECIMENOrdering Facility: [facility] Address: [address] [place] [address] Performed By: #### 5 8410-2 ####[facility] HOSPITALStaceyNCLIA [id number] [place] [address] [place] MCH (RBC) [Entitic mass] 30.3 pg Normal 26.0-34.0 [facility] Comment on above: Order Comment: Speci men Type: BLOOD SPECIMENOrdering Facility: [facility] Address: [address] [place] [address] Performed By: #### 5 8410-2 ####[facility]IDANCTELL[facility] [id number] [place] [address] [place] MCHC (RBC) [Mass/Vol] 33.8 g/dL Normal 30.5-36.0 [facility] Comment on above: Order Comment: Speci men Type: BLOOD SPECIMENOrdering Facility: [facility] Address: [address] [place] [address] Performed By: #### 5 8410-2 ####[facility] [id number] [place] [address] [place] MCV (RBC) [Entitic vol] 89.7 fL Normal 80.0-100.0 C [facility] Comment on above: Order Comment: Speci men Type: BLOOD SPECIMENOrdering Facility: [facility] Address: [address] [place] [address] Performed By: #### 5 8410-2 ####[facility] [id number] [place] [address] [place] Nucleated RBC (Bld) [#/Vol] 10*3/uL Normal <0.01 [facility] Comment on above: Order Comment: Speci men Type: BLOOD SPECIMENOrdering Facility: [facility] Address: [address] [place] [address] Performed By: #### 5 8410-2 ####[facility] [id number] [place] [address] [place] Platelet mean volume (Bld) [Entitic vol] 11.0 fL Normal 9.0-12.7 [facility] Comment on above: Order Comment: Speci men Type: BLOOD SPECIMENOrdering Facility: [facility] Address: [address] [place] [address] Performed By: #### 5 8410-2 ####[facility] HEYDIWNCLIA [id number] [place] [address] [place] Platelets (Bld) [#/Vol] 117 10*3/uL Low 150-400 [facility] Comment on above: Order Comment: Speci men Type: BLOOD SPECIMENOrdering Facility: [facility] Address: [address] [place] [address] Result Comment: No c lot detected. Performed By: #### 5 8410-2 ####[facility] FLORIDARIZW[facility] [id number] [place] [address] [place] RBC (Bld) [#/Vol] 4.85 10*6/uL Normal 4.20-6.00 [facility] Comment on above: Order Comment: Speci men Type: BLOOD SPECIMENOrdering Facility: [facility] Address: [address] [place] [address] Performed By: #### 5 8410-2 ####[facility] FLORIDANCGLENDAA [id number] [place] [address] [place] WBC (Bld) [#/Vol] 3.74 10*3/uL Normal 3.70-11.00 [facility] Comment on above: Order Comment: Speci men Type: BLOOD SPECIMENOrdering Facility: [facility] Address: [address] [place] [address] Performed By: #### 5 8410-2 ####[facility] [id number] [place] [address] [place] Allison 02-13-2024 [place] Telephone (4CQ) DENIZ KUMAR ([id number]) 1935 M Date Time Provider Department 02/13/24 [...] As of Date: 02/13/2024 Noted Allergy Reaction XKRYFME-ODQ-UQY REDUCTASE INHIBIT*08/23/2023 17 - Myalgia Comments: Weakess, falls CLEARASIL MAXIMUM STRENGTH 09/16/2018 7 - Swelling Date Reviewed: 11/21/2023 Reviewed by: Rosetta Zamorano LPN - Fully Assessed Reason for Visit: Orders [681] Primary Visit Diagnosis:Thrombocytope yajaira, unspecified (HCC) [D69.6] Other Visit Diagnosis:Essential hypertension [I10] Order(s):COMPLETE BLOOD COUNT [SQCBC] Order #: [id number] FUTURE BASIC METABOLIC PANEL [SQBMP] Order #: [id number] FUTURE Prescriptions as of 02/13/2024 - oxybutynin [...] Status:Closed by BRENDA LINARES on 02/13/24 Normal [facility] CNOVon 11-21-2023 CNOV Office Visit (INTMWS ) DENIZ KUMAR ([id number]) 1935 M Date Time Provider Department 5/23/24 10:00 AM VADIM DERAS INTMWS During your visit today, we recorded the following information about you: Temperature Pulse Blood pressure Weight 98.4 degrees 60/minute 149/87 100.2 kg Vadim Deras MD 11/21/2023 1:00 PM Signed This note was created using [employer]. Subjective Deniz Kumar is a 88 year [...] As of Date: 11/21/2023 Noted Allergy Reaction BSYIVJL-NSD-IDV REDUCTASE (more content not included)... Normal [facility] Comprehensive metabolic 2000 panelon 11-14-2023 Albumin [Mass/Vol] 4.0 g/dL Normal 3.9-4.9 [facility] Comment on above: Order Comment: Speci men Type: BLOOD SPECIMENOrdering Facility: [facility] Address: [address] [place] [address] Performed By: #### 2 4323-8 ####[facility] [id number] [place] [address] [place] ALP [Catalytic activity/Vol] 70 U/L Normal 38-113 [facility] Comment on above: Order Comment: Speci men Type: BLOOD SPECIMENOrdering Facility: [facility] Address: [address] [place] [address] Performed By: #### 2 4323-8 ####[facility] [id number] [place] [address] [place] ALT [Catalytic activity/Vol] 13 U/L Normal 10-54 [facility] Comment on above: Order Comment: Speci men Type: BLOOD SPECIMENOrdering Facility: [facility] Address: [address] [place] [address] Performed By: #### 2 4323-8 ####[facility] HOSPITALWNCLIA [id number] [place] [address] [place] Anion gap [Moles/Vol] 3 mmol/L Low 9-18 [facility] Comment on above: Order Comment: Speci men Type: BLOOD SPECIMENOrdering Facility: [facility] Address: [address] [place] [address] Performed By: #### 2 4323-8 ####[facility] MILLWDERIANLIA [id number] [place] [address] [place] AST [Catalytic activity/Vol] 16 U/L Normal 14-40 [facility] Comment on above: Order Comment: Speci men Type: BLOOD SPECIMENOrdering Facility: [facility] Address: [address] [place] [address] Performed By: #### 2 4323-8 ####[facility] FLORIDADERIANLIA [id number] [place] [address] [place] Bilirubin [Mass/Vol] 0.6 mg/dL Normal 0.2-1.3 [facility] Comment on above: Order Comment: Speci men Type: BLOOD SPECIMENOrdering Facility: [facility] Address: [address] [place] [address] Performed By: #### 2 4323-8 ####[facility] HOSPITALWDERIANLIA [id number] [place] [address] [place] Calcium [Mass/Vol] 9.5 mg/dL Normal 8.5-10.2 [facility] Comment on above: Order Comment: Speci men Type: BLOOD SPECIMENOrdering Facility: [facility] Address: [address] [place] [address] Performed By: #### 2 4323-8 ####[facility] [id number] [place] [address] [place] Chloride [Moles/Vol] 106 mmol/L High 97-105 [facility] Comment on above: Order Comment: Speci men Type: BLOOD SPECIMENOrdering Facility: [facility] Address: [address] [place] [address] Performed By: #### 2 4323-8 ####[facility] [id number] [place] [address] [place] CO2 [Moles/Vol] 32 mmol/L High 22-30 [facility] Comment on above: Order Comment: Speci men Type: BLOOD SPECIMENOrdering Facility: [facility] Address: [address] [place] [address] Performed By: #### 2 4323-8 ####[facility] [id number] [place] [address] [place] Creatinine [Mass/Vol] 0.83 mg/dL Normal 0.73-1.22 [facility] Comment on above: Order Comment: Speci men Type: BLOOD SPECIMENOrdering Facility: [facility] Address: [address] [place] [address] Performed By: #### 2 4323-8 ####[facility] [id number] [address] STATES OF [facility] Creatinine and Glomerular filtration rate.predicted panel (S/P/Bld) 85 mL/min/1.73m??? Normal >=60 [facility] Comment on above: Order Comment: Speci men Type: BLOOD SPECIMENOrdering Facility: [facility] Address: [address] [place] [address] Result Comment: Franny mated Glomerular Filtration Rate [...] actual GFR. Performed By: #### 2 4323-8 ####[facility] HOSPITALWNCLIA [id number] [place] [address] [place] Glucose [Mass/Vol] 86 mg/dL Normal 74-99 [facility] Comment on above: Order Comment: Speci men Type: BLOOD SPECIMENOrdering Facility: [facility] Address: [address] [place], [place] [id number] Result Comment: The [place] Diabetes Association (ADA) provides guidance for cutoff [...] Standards of Medical Care in Diabetes 2016, [place] Diabetes Association. Diabetes Care. 2016.39(Suppl 1). Performed By: #### 2 4323-8 ####[facility] [id number] [place] [address] [place] Potassium [Moles/Vol] 4.1 mmol/L Normal 3.7-5.1 [facility] Comment on above: Order Comment: Speci men Type: BLOOD SPECIMENOrdering Facility: [facility] Address: [address] [place] [address] Performed By: #### 2 4323-8 ####[facility] [id number] [place] [address] [place] Protein [Mass/Vol] 6.3 g/dL Normal 6.3-8.0 [facility] Comment on above: Order Comment: Speci men Type: BLOOD SPECIMENOrdering Facility: [facility] Address: [address] [place] [address] Performed By: #### 2 4323-8 ####[facility] [id number] [place] [address] [place] Sodium [Moles/Vol] 141 mmol/L Normal 136-144 [facility] Comment on above: Order Comment: Speci men Type: BLOOD SPECIMENOrdering Facility: [facility] Address: [address] [place] [address] Performed By: #### 2 4323-8 ####[facility] [id number] [place] [address] [place] Urea nitrogen [Mass/Vol] 30 mg/dL High 9-24 [facility] Comment on above: Order Comment: Speci men Type: BLOOD SPECIMENOrdering Facility: [facility] Address: [address] [place] [address] Performed By: #### 2 4323-8 ####[facility] [id number] [place] [address] [place] Lipid 1996 panelon 4 Cholesterol [Mass/Vol] 169 mg/dL Normal <200 [facility] Comment on above: Order Comment: Speci men Type: BLOOD SPECIMENOrdering Facility: [facility] Address: [address] [place] [address] Result Comment: <200 mg/dL, Desirable 200-239 mg/dL, Borderline high >239 mg/dL, High Performed By: #### 2 4331-1 ####[facility] LABCLIA [id number] [facility] [id number] [address] [place] [facility] [id number] [place] [address] [place] Cholesterol in HDL [Mass/Vol] 50 mg/dL Normal >39 [facility] Comment on above: Order Comment: Speci men Type: BLOOD SPECIMENOrdering Facility: [facility] Address: [address] [place] [address] Result Comment: 40-5 9 mg/dL, Acceptable >59 mg/dL, High: Negative risk factor for coronary heart disease <40 mg/dL, Low: Positive risk factor for coronary heart disease Performed By: #### 2 4331-1 ####[facility] LABCLIA [id number] [address] [id number] [address] [place] Cholesterol in LDL [Mass/Vol] 95 mg/dL Normal <100 [facility] Comment on above: Order Comment: Speci men Type: BLOOD SPECIMENOrdering Facility: [facility] Address: [address] [place] [address] Result Comment: <100 mg/dL, Optimal 100-129 mg/dL, Near optimal/above optimal 130-159 mg/dL, Borderline high 160-189 mg/dL, High >189 mg/dL, Very high Secondary prevention optimal LDL Cholesterol levels are recommended to be < 70 mg/dL Performed By: #### 2 4331-1 ####[facility] LABCLIA [id number] [address] [id number] [place] [address] STATES [facility] Cholesterol in LDL/Cholesterol in HDL [Mass ratio] 1.90 {ratio} Normal <2.54 [facility] Comment on above: Order Comment: Speci men Type: BLOOD SPECIMENOrdering Facility: [facility] Address: [address] [place] [address] Result Comment: Refe rence: 1. National Cholesterol Education Program ATP III Guideline At-A-Glance Quick Desk Reference: National Heart, Lung, and Blood [place]. National Institutes of Health. 2001: NIH Publication No. 01-3305. 2. An International Atherosclerosis Society position paper: global recommendations for the management of dyslipidemia: executive summary, Atherosclerosis. 2014: 232(2):410-413. Performed By: #### 2 4331-1 ####[facility] LABCLIA [id number] [place] [id number] [facility] [id number] [place] [address] [place] Cholesterol in VLDL [Mass/Vol] 24 mg/dL Normal <30 [facility] Comment on above: Order Comment: Speci men Type: BLOOD SPECIMENOrdering Facility: [facility] Address: [address] [place] [address] Performed By: #### 2 4331-1 ####[facility] LABIA [id number] [address] [id number] [place] [address] [place] Cholesterol non HDL [Mass/Vol] 119 mg/dL Normal <130 [facility] Comment on above: Order Comment: Speci men Type: BLOOD SPECIMENOrdering Facility: [facility] Address: [address] [place] [address] Result Comment: <130 mg/dL, Optimal 130-159 mg/dL, Near optimal/above optimal 160-189 mg/dL, Borderline high 190-219 mg/dL, High >219 mg/dL, Very high Secondary prevention optimal non HDL Cholesterol levels are recommended to be <100 mg/dL Performed By: #### 2 4331-1 ####[facility] LABIA [id number] [address] [id number] [place] [address] [place] Cholesterol.total/Miracle sterol in HDL [Mass ratio] 3.38 {ratio} Normal <5.10 [facility] Comment on above: Order Comment: Speci men Type: BLOOD SPECIMENOrdering Facility: [facility] Address: [address] [place], [place] [address] Performed By: #### 2 4331-1 ####[facility] LABCLIA [id number] [address] [id number] [place] [address] [place] FASTING TIME 13 hrs Normal [facility] Comment on above: Order Comment: Speci men Type: BLOOD SPECIMENOrdering Facility: [facility] Address: [address] [place] [address] Performed By: #### 2 4331-1 ####[facility] LABCLIA [id number] [address] [id number] [place] [address] [place] Triglyceride [Mass/Vol] 119 mg/dL Normal <150 [facility] Comment on above: Order Comment: Speci men Type: BLOOD SPECIMENOrdering Facility: [facility] Address: [address] [place] [address] Result Comment: <150 mg/dL, Normal 150-199 mg/dL, Borderline high 200-499 mg/dL, High >499 mg/dL, Very high Performed By: #### 2 4331-1 ####[facility] LABCLIA [id number] [address] [id number] [address] [place] Allison 08-15-2023 CNPN Telephone (AGPOB1) DENIZ KUMAR ([id number]) 1935 Date Time Provider Department 08/15/23 BONIFACIO VALDEZ During your visit today, we recorded the following information about you: Chloe Joyner 08/15/2023 3:19 PM Signed I called [facility] back and gave her the verbal [...] Encounter Status:Closed by CHLOE JOYNER on 08/15/23 [facility] CNOVon 08-06-2023 CNOV Office Visit (AGPOB1 ) DENIZ KUMAR ([id number]) 1935 M Date Time Provider Department 08/06/23 1:15 PM [facility] During your visit today, we recorded [...] left ankle with routine healing, subsequent encounter [P17.260T] Order(s):XR ANKLE GENERAL 3V AP/LAT/OBL LEFT [[id number]] Order #: [id number] Prescriptions as of 08/06/2023 - atorvastatin (LIPITOR) [...] for Encounter Date Provider Department Center 08/06/2023 [id number]-LIERLBONIFACIO VALDEZ AGPOB1 AG POB Encounter Status:Closed by BONIFACIO VALDEZ on 08/06/23 [facility] CNOVon 08-02-2023 CNOV Office Visit (NEAGCL M) ESTEFANYDENIZ CAPELLAN ([id number]) 1935 M Date Time Provider Department 08/02/23 1:30 PM [facility] During your visit today, we recorded the following information about you: Pulse Respiration Blood pressure Weight 101/minute 17/minute 104/67 96.2 kg Height 1.829 m Nicolás Junior MD 08/02/2023 2:04 PM Signed NEUROSURGERY FOLLOW UP OFFICE NOTE Dr. Nicolás Junior MD, [facility] Date of visit: August Patient Name: Mr.Peter Jericho Kumar Date of : 1935 Current Age: [age] year old Sex: male MRN/E# [id number] Last Office Visit: 07/16/2023 CHIEF COMPLAINT: Patient presents with: Established Patient SUBJECTIVE: The patient presents as a follow-up with imaging (CT B) for evaluation. This is an 88-year-old male with a PMHx TIA, HTN, hypercholesterolemia, thrombocytopenia who was seen for consult at [facility] on 06/21/2023 after a fall while [...] he was a resident in rehab in [place] and hoped to be discharged to a long-term that week. He denied headache, visual changes, [...] tablet da (more content not included)... Normal [facility] CT BRAIN WO IVCONon 08-02-19 CT BRAIN [...] base and imaged soft tissues are unremarkable. Teletypesetter Monitor (topogram) images: No additional findings. IMPRESSION: No evidence of new intracranial hemorrhage. Stable CT. 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: [facility] Transcribe Date/Time: Aug 02 2023 3:45P Dictated by : LINDA LOMBARDO MD This examination was interpreted and the report reviewed and electronically signed by: LINDA LOMBARDO MD on Aug 02 2023 3:50PM EST [id number] Normal [facility] Basophil percentageOrdered B y: Nishi Romero on 07-29-2023 Chloride [Moles/Vol] 106 mmol/L 98-107 [facility] Glucose [Mass/Vol] 90 mg/dL 74-106 [facility] Hemoglobin (Bld) [Mass/Vol] 15.0 g/dL 13.0-16.5 [facility] Potassium [Moles/Vol] 3.1 mmol/L 3.5-5.1 [facility] Sodium [Moles/Vol] 140 mmol/L 136-145 [facility] WBC (Bld) [#/Vol] 5.3 10*3/uL 4.4-11.0 [facility] Determination of erythrocyte mean corpuscular volume (MCV)Ordered By: Nishi Romero on 07-29-2023 MCV (RBC) [Entitic vol] 90.4 fL 80-[address] [facility] Erythrocyte distribution wid th ratioOrdered By: Nishi Romero on 07-29-2023 Erythrocyte distribution width (RBC) [Ratio] 12.7 % 11.6-14.6 [facility] Erythrocyte distribution wid th standard deviationOrdered By: Nishi Romero on 07-29-2023 Erythrocyte distribution width (RBC) [Entitic vol] 42.5 fL 35.1-43.9 [facility] Hematocrit Auto (Bld) [Volum e fraction]Ordered By: Nishi Romero on 07-29-2023 Hematocrit (Bld) [Volume fraction] 46.0 % 40-54 [facility] Laboratory - Chemistry and C hemistry - challengeOrdered By: Nishi Romero on 07-29-2023 CO2 [Moles/Vol] 29.0 mmol/L 21.0-32.0 [facility] Urea nitrogen/Creatinine [Mass ratio] 29.2 mg/mg 10-20 [facility] Laboratory - Hematology and Cell countsOrdered By: Nishi Romero on 07-29-2023 MCH (RBC) [Entitic mass] 29.5 pg 27.0-32.0 [facility] MCHC (RBC) [Mass/Vol] 32.6 g/dL 32-36 [facility] Platelets (Bld) [#/Vol] 151 10*3/uL 150-450 [facility] No Panel InformationOrdered By: Nishi Romero on 07-29-2023 Estimated GFR (MDRD) Amer 85 mL/min >60 [facility] Comment on above: GFR Calc Estimated GFR (MDRD) Non-Af Amer 70 mL/min >60 [facility] Comment on above: Non- GFR Calc Platelet mean volume Tutu-Ec ker (Bld) [Entitic vol]Ordered By: Nishi Romero on 07-29-2023 Platelet mean volume (Bld) [Entitic vol] 11.3 fL 6.2-12.0 [facility] RBC Auto (Bld) [#/Vol]Ordere d By: Nishi Romero on 07-29-2023 RBC (Bld) [#/Vol] 5.09 10*6/uL 4.6-6.2 [facility] Serum or plasma calcium sharon urement (mass/volume)Ordered By: Nishi Romero on 07-29-2023 Calcium [Mass/Vol] 9.9 mg/dL 8.5-10.1 [facility] Serum or plasma creatinine m easurement (mass/volume)Ordered By: Nishi Romero on 07-29-2023 Creatinine [Mass/Vol] 1.06 mg/dL 0.70-1.30 [facility] Comment on above: The validity of the calculated GFR & GFRAA in patients over 70 years has not been determined. Clinical correlation is essential. Serum or plasma urea nitroge n measurement (mass/volume)Ordered By: Nishi Romero on 07-29-2023 Urea nitrogen [Mass/Vol] 31 mg/dL 7-18 [facility] Thin prep Papanicolaou smear with manual screeningOrdered By: Nishimichael Romero on 07-29-2023 Thin prep Papanicolaou smear with manual screening 5 5-15 [facility] Basophil percentageOrdered B y: Nishi Romero on 07-22-2023 Chloride [Moles/Vol] 102 mmol/L 98-107 [facility] Glucose [Mass/Vol] 84 mg/dL 74-106 [facility] Hemoglobin (Bld) [Mass/Vol] 15.0 g/dL 13.0-16.5 [facility] Potassium [Moles/Vol] 3.4 mmol/L 3.5-5.1 [facility] Sodium [Moles/Vol] 138 mmol/L 136-145 [facility] WBC (Bld) [#/Vol] 5.4 10*3/uL 4.4-11.0 [facility] Determination of erythrocyte mean corpuscular volume (MCV)Ordered By: Nishi Romero on 07-22-2023 MCV (RBC) [Entitic vol] 90.8 fL 80-[address] [facility] Erythrocyte distribution wid th ratioOrdered By: Nishi Romero on 07-22-2023 Erythrocyte distribution width (RBC) [Ratio] 12.8 % 11.6-14.6 [facility] Erythrocyte distribution wid th standard deviationOrdered By: Nishi Romero on 07-22-2023 Erythrocyte distribution width (RBC) [Entitic vol] 42.7 fL 35.1-43.9 [facility] Hematocrit Auto (Bld) [Volum e fraction]Ordered By: Nishi Romero on 07-22-2023 Hematocrit (Bld) [Volume fraction] 45.3 % 40-54 [facility] Laboratory - Chemistry and C hemistry - challengeOrdered By: Nishi Romero on 07-22-2023 CO2 [Moles/Vol] 26.0 mmol/L 21.0-32.0 [facility] Urea nitrogen/Creatinine [Mass ratio] 33.6 mg/mg 10-20 [facility] Laboratory - Hematology and Cell countsOrdered By: Nishi Romero on 07-22-2023 MCH (RBC) [Entitic mass] 30.1 pg 27.0-32.0 [facility] MCHC (RBC) [Mass/Vol] 33.1 g/dL 32-36 [facility] Platelets (Bld) [#/Vol] 214 10*3/uL 150-450 [facility] No Panel InformationOrdered By: Nishi Romero on 07-22-2023 Estimated GFR (MDRD) Amer 84 mL/min >60 [facility] Comment on above: GFR Calc Estimated GFR (MDRD) Non-Af Amer 70 mL/min >60 [facility] Comment on above: Non- GFR Calc Platelet mean volume Tutu-Ec ker (Bld) [Entitic vol]Ordered By: Nishi Romero on 07-22-2023 Platelet mean volume (Bld) [Entitic vol] 10.5 fL 6.2-12.0 [facility] RBC Auto (Bld) [#/Vol]Ordere d By: Nishi Romero on 07-22-2023 RBC (Bld) [#/Vol] 4.99 10*6/uL 4.6-6.2 [facility] Serum or plasma calcium sharon urement (mass/volume)Ordered By: Nishi Romero on 07-22-2023 Calcium [Mass/Vol] 10.2 mg/dL 8.5-10.1 [facility] Serum or plasma creatinine m easurement (mass/volume)Ordered By: Nishi Romero on 07-22-2023 Creatinine [Mass/Vol] 1.07 mg/dL 0.70-1.30 [facility] Comment on above: The validity of the calculated GFR & GFRAA in patients over 70 years has not been determined. Clinical correlation is essential. Serum or plasma urea nitroge n measurement (mass/volume)Ordered By: Nishimichael Romero on 07-22-2023 Urea nitrogen [Mass/Vol] 36 mg/dL 7-18 [facility] Thin prep Papanicolaou smear with manual screeningOrdered By: Nishimichael Romero on 07-22-2023 Thin prep Papanicolaou smear with manual screening 10 5-15 [facility] Basophil percentageOrdered B y: [facility] on 07-19-2023 Chloride [Moles/Vol] 104 mmol/L 98-107 [facility] Cholesterol [Mass/Vol] 183 mg/dL <200 [facility] Comment on above: <200 mg/dL Desirable 200-240 mg/dL Borderline >240 mg/dL High Risk Glucose [Mass/Vol] 112 mg/dL 74-106 [facility] Comment on above: Fasting Glucose resu lt from 100 to 125 mg/dL suggests IMPAIRED HOMEOSTASIS per A.D.A. criteria. Hemoglobin (Bld) [Mass/Vol] 15.3 g/dL 13.0-16.5 [facility] Potassium [Moles/Vol] 3.7 mmol/L 3.5-5.1 [facility] Sodium [Moles/Vol] 137 mmol/L 136-145 [facility] Triglyceride [Mass/Vol] 120 mg/dL <[address] [facility] Comment on above: The drugs N-Acetylcy steine and Metamizole may falsely depress this assay.Serum Triglycerides Reference Interval Normal <150 mg/dL Borderline high 150 - 199 mg/dL High 200 - 499 mg/dL Very High > or = 500 mg/dL WBC (Bld) [#/Vol] 5.1 10*3/uL 4.4-11.0 [facility] Determination of erythrocyte mean corpuscular volume (MCV)Ordered By: [facility] on 07-19-2023 MCV (RBC) [Entitic vol] 88.5 fL 80-[address] [facility] Erythrocyte distribution wid th ratioOrdered By: [facility] on 07-19-2023 Erythrocyte distribution width (RBC) [Ratio] 12.6 % 11.6-14.6 [facility] Erythrocyte distribution wid th standard deviationOrdered By: [facility] on 07-19-2023 Erythrocyte distribution width (RBC) [Entitic vol] 41.4 fL 35.1-43.9 [facility] Hematocrit Auto (Bld) [Volum e fraction]Ordered By: [facility] on 07-19-2023 Hematocrit (Bld) [Volume fraction] 44.7 % 40-54 [facility] Laboratory - Chemistry and C hemistry - challengeOrdered By: [facility] on 07-19-2023 Cholesterol in HDL (Body fld) [Mass/Vol] 49 mg/dL >40 [facility] Comment on above: The drugs N-Acetylcy steine and Metamizole may falsely depress this assay. Reference Range HDL <40 mg/dL Low HDL Cholesterol HDL >or= 60 mg/dL High HDL Cholesterol Cholesterol in LDL (Body fld) [Moles/Vol] 110 mg/dL 0-130 [facility] Cholesterol in VLDL Calc [Moles/Vol] 24 mg/dL 5-40 [facility] CO2 [Moles/Vol] 25.0 mmol/L 21.0-32.0 [facility] Cobalamin (Vitamin B12) [Mass/Vol] 1382 pg/mL 211-911 [facility] Magnesium [Mass/Vol] 2.2 mg/dL 1.6-2.6 [facility] Urea nitrogen/Creatinine [Mass ratio] 22.2 mg/mg 10-20 [facility] Laboratory - Hematology and Cell countsOrdered By: [facility] on 07-19-2023 MCH (RBC) [Entitic mass] 30.3 pg 27.0-32.0 [facility] MCHC (RBC) [Mass/Vol] 34.2 g/dL 32-36 [facility] Platelets (Bld) [#/Vol] 271 10*3/uL 150-450 [facility] No Panel InformationOrdered By: [facility] on 07-19-2023 Estimated GFR (MDRD) Amer 103 mL/min >60 [facility] Comment on above: GFR Calc Estimated GFR (MDRD) Non-Af Amer 85 mL/min >60 [facility] Comment on above: Non- GFR Calc Vitamin D 25-Hydroxy 53.8 ng/mL [facility] Comment on above: Vitamin D 25(OH) Sta tus Range Deficiency <20 ng/mL (50nmol/L) Insufficiency 20 - 30 ng/mL (50 - 75 nmol/L) Sufficiency 30 - 100 ng/mL (75 - 250 nmol/L) Toxicity >100 ng/mL (>250 nmol/L) Platelet mean volume Tutu-Ec ker (Bld) [Entitic vol]Ordered By: [facility] on 07-19-2023 Platelet mean volume (Bld) [Entitic vol] 10.2 fL 6.2-12.0 [facility] RBC Auto (Bld) [#/Vol]Ordere d By: [facility] on 07-19-2023 RBC (Bld) [#/Vol] 5.05 10*6/uL 4.6-6.2 [facility] Serum or plasma calcium sharon urement (mass/volume)Ordered By: [facility] on 07-19-2023 Calcium [Mass/Vol] 10.0 mg/dL 8.5-10.1 [facility] Serum or plasma creatinine m easurement (mass/volume)Ordered By: [facility] on 07-19-2023 Creatinine [Mass/Vol] 0.90 mg/dL 0.70-1.30 [facility] Comment on above: The validity of the calculated GFR & GFRAA in patients over 70 years has not been determined. Clinical correlation is essential. Serum or plasma thyroid stim ulating hormone (TSH) measurement (units/volume)Ordered By: [facility] on 07-19-2023 TSH Qn 1.00 uIU/mL 0.358-3.74 [facility] Serum or plasma urea nitroge n measurement (mass/volume)Ordered By: [facility] on 07-19-2023 Urea nitrogen [Mass/Vol] 20 mg/dL 7-18 [facility] Thin prep Papanicolaou smear with manual screeningOrdered By: [facility] on 07-19-2023 Thin prep Papanicolaou smear with manual screening 8 5-15 [facility] CNOVon 07-16-2023 CNOV Office Visit (NEAGCL M) DENIZ KUMAR ([id number]) 1935 M Date Time Provider Department 07/16/23 11:00 AM [facility] NEAGCLM During your visit today, we recorded the following information about you: Pulse Respiration Blood pressure Weight 83/minute 18/minute 125/85 96.2 kg Height 1.829 m Nicolás Junior MD 07/16/2023 11:16 AM Signed NEUROSURGERY FOLLOW UP OFFICE NOTE Dr. Nicolás Junior MD, [facility] Date of visit: July 16, 2023 Patient Name: Mr.Peter Jericho Kumar Date of : 1935 Current Age: [age] year old Sex: male MRN/E# [id number] Last Office Visit: Hospital follow-up CHIEF COMPLAINT: Patient presents with: Established Patient SUBJECTIVE: The patient presents as a hospital follow-up with imaging (CT B) for evaluation. This is an 88-year-old male with a PMHx TIA, HTN, hypercholesterolemia, thrombocytopenia who was seen for consult at [facility] on 06/21/2023 after a fall while [...] well. He is currently in rehab in [place] and hopes to be discharged to a long-term this week. He denies headache, visual changes, [...] joint sw (more content not included)... Normal [facility] COVID-19 virus antigen assay Ordered By: Preston Camilo on 07-16-2023 SARS-CoV-2 (COVID-19) Ag IA.rapid Ql (Resp) [facility] CT BRAIN WO IVCONon 07-16-[address] [...] base and imaged soft tissues are unremarkable. Teletypesetter Monitor (topogram) images: No additional findings. IMPRESSION: Interval resolution of the previously demonstrated left parafalcine and tentorial subdural hemorrhage. 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: [employer] Transcribe Date/Time: Jul 16 2023 2:25P Dictated by : LINDA LOMBARDO MD This examination was interpreted and the report reviewed and electronically signed by: LINDA LOMBARDO MD on Jul 16 2023 2:31PM EST [id number] Normal [facility] Absolute lymphocyte countOrd ered By: Preston Camilo on 07-15-2023 Lymphocytes Auto (Unsp spec) [#/Vol] 1.09 10*3/uL 0.83-4.51 [facility] Basophil percentageOrdered B y: Preston Camilo on 07-15-2023 Basophils/100 WBC (Bld) 0.4 % 0-[address] [facility] Chloride [Moles/Vol] 106 mmol/L 98-107 [facility] Eosinophils/100 WBC (Bld) 0.7 % 0-5 [facility] Glucose [Mass/Vol] 96 mg/dL 74-106 [facility] Neutrophils (Bld) [#/Vol] 3.3 10*3/uL 2.0-7.7 [facility] Neutrophils/100 WBC (Bld) 59.8 % 47-70 [facility] Potassium [Moles/Vol] 3.6 mmol/L 3.5-5.1 [facility] Sodium [Moles/Vol] 139 mmol/L 136-145 [facility] WBC (Bld) [#/Vol] 5.5 10*3/uL 4.4-11.0 [facility] Blood erythrocytes count (nu mber/volume)Ordered By: Preston Camilo on 01-15-2024 RBC (Bld) [#/Vol] 4.83 10*6/uL 4.6-6.2 [facility] Blood hemoglobin measurement (mass/volume)Ordered By: Preston Camilo on 07-15-2023 Hemoglobin (Bld) [Mass/Vol] 14.2 g/dL 13.0-16.5 [facility] Blood lymphocytes/100 leukoc ytesOrdered By: [facility] on 07-15-2023 Lymphocytes/100 WBC (Bld) 19.8 % 19-41 [facility] Blood monocytes/100 leukocyt esOrdered By: [facility] on 07-15-2023 Monocytes/100 WBC (Bld) 17.8 % 0-[address] [facility] Blood platelet mean volumeOr dered By: [facility] on 07-15-2023 Platelet mean volume (Bld) [Entitic vol] 9.7 fL 6.2-12.0 [facility] Determination of erythrocyte mean corpuscular volume (MCV)Ordered By: Preston Ton on 07-15-2023 MCV (RBC) [Entitic vol] 89.6 fL 80-[address] [facility] Hematocrit Auto (Bld) [Volum e fraction]Ordered By: [facility] on 07-15-2023 Hematocrit (Bld) [Volume fraction] 43.3 % 40-54 [facility] Laboratory - Chemistry and C hemistry - challengeOrdered By: [facility] 07-15-2023 CO2 [Moles/Vol] 27.0 mmol/L 21.0-32.0 [facility] Urea nitrogen/Creatinine [Mass ratio] 25.7 mg/mg 10-20 [facility] Laboratory - Hematology and Cell countsOrdered By: [facility] 07-15-2023 Erythrocyte distribution width (RBC) [Entitic vol] 40.9 fL 35.1-43.9 [facility] Erythrocyte distribution width (RBC) [Ratio] 12.3 % 11.6-14.6 [facility] Immature granulocytes/100 WBC (Bld) 1.500 % 0.0-0.9 [facility] Comment on above: IG% - Immature Granu locytes (promyelocytes, myelocytes and metamyelocytes) > 1% indicates that a LEFT SHIFT is Present. MCH (RBC) [Entitic mass] 29.4 pg 27.0-32.0 [facility] Nucleated RBC/100 WBC (Bld) [Ratio] 0 % 0-5 [facility] ([facility]) [Mass/Vol]Or dered By: Preston Camilo on 07-15-2023 MCHC (RBC) [Mass/Vol] 32.8 g/dL 32-36 [facility] No Panel InformationOrdered By: Preston Camilo on 07-15-2023 Estimated Creatinine Clearance Calc 76.85 ml/min [facility] Estimated GFR (MDRD) Amer 115 mL/min >60 [facility] Comment on above: GFR Calc Estimated GFR (MDRD) Non-Af Amer 95 mL/min >60 [facility] Comment on above: Non- GFR Calc Platelets bldOrdered By: Preston Camilo on 07-15-2023 Platelets (Bld) [#/Vol] 263 10*3/uL 150-450 [facility] Serum or plasma calcium sharon urement (mass/volume)Ordered By: Preston Camilo on 07-15-2023 Calcium [Mass/Vol] 9.2 mg/dL 8.5-10.1 [facility] Serum or plasma creatinine m easurement (mass/volume)Ordered By: Preston Camilo on 07-15-2023 Creatinine [Mass/Vol] 0.82 mg/dL 0.70-1.30 [facility] Comment on above: The validity of the calculated GFR & GFRAA in patients over 70 years has not been determined. Clinical correlation is essential. Serum or plasma urea nitroge n measurement (mass/volume)Ordered By: Preston Camilo on 07-15-2023 Urea nitrogen [Mass/Vol] 21 mg/dL 7-18 [facility] Thin prep Papanicolaou smear with manual screeningOrdered By: Preston Camilo on 07-15-2023 Thin prep Papanicolaou smear with manual screening 6 - [facility] CNPNon 07-12-2023 CNPN Telephone (AGPOB1) DENIZ KUMAR ([id number]) 1935 M Date Time Provider Department 07/12/23 [...] at [facility] [phone] and informed her of what the doctor said. She understood. Bessie Duran July 12, 2023 4:12 PM Allergies As of Date: 07/12/2023 Noted Allergy Reaction CLEARASIL MAXIMUM STRENGTH 09/16/2018 7 - Swelling Date Reviewed: 07/09/2023 Reviewed by: Bonifacio Valdez MD - Fully Assessed Reason for Visit: Patient Question [9877] Prescriptions as of 07/12/2023 - acetaminophen (TYLENOL) [...] Encounter Status:Closed by BESSIE DURAN on 07/12/23 [facility] CNOVon 07-09-2023 CNOV Office Visit (AGPOB1 ) DENIZ KUMAR ([id number]) 1935 M Date Time Provider Department 07/09/23 [...] office. Questions answered. Referring Provider: LYNDA HOLMAN [[id number]] Allergies As of Date: 07/09/2023 Noted Allergy Reaction CLEARASIL MAXIMUM STRENGTH 09/16/2018 7 - Swelling Date Reviewed: 07/09/2023 Reviewed by: Bonifacio Valdez MD - Fully Assessed Reason for Visit: Follow Up [171] Primary Visit Diagnosis:Closed bimalleolar fracture of left ankle with routine healing, subsequent encounter [S82.843U] Order(s):XR ANKLE GENERAL 3V AP/LAT/OBL LEFT [[id number]] Order #: [id number] Prescriptions as of 07/09/2023 - acetaminophen (TYLENOL) [...] for Encounter Date Provider Department Center 07/09/2023 [id number]-YSDNIBONIFACIO VALDEZ AGPOB1 AG POB Encounter Status:Closed by BONIFACIO VALDEZ on 07/09/23 Normal [facility] Basophil percentageOrdered B y: Preston Camilo on 07-04-2023 Cholesterol [Mass/Vol] 158 mg/dL <200 [facility] Comment on above: <200 mg/dL Desirable 200-240 mg/dL Borderline >240 mg/dL High Risk Triglyceride [Mass/Vol] 77 mg/dL <[address] [facility] Comment on above: The drugs N-Acetylcy steine and Metamizole may falsely depress this assay.Serum Triglycerides Reference Interval Normal <150 mg/dL Borderline high 150 - 199 mg/dL High 200 - 499 mg/dL Very High > or = 500 mg/dL Allison 07-04-2023 CNPN Telephone (NEAGCLM) DENIZ KUMAR ([id number]) 1935 M Date Time Provider Department 07/04/23 [facility] During your visit today, we recorded the following information about you: Gustavo Reyes 07/04/2023 8:35 AM Signed I returned patients facility from [place] [phone] confirming day time and location of upcoming [...] Encounter Status:Closed by GUSTAVO REYES on 07/04/23 [facility] Serum or plasma cholesterol in HDL measurement (mass/volume)Ordered By: Preston Camilo on 07-04-2023 Cholesterol in HDL [Mass/Vol] 49 mg/dL >40 [facility] Comment on above: The drugs N-Acetylcy steine and Metamizole may falsely depress this assay. Reference Range HDL <40 mg/dL Low HDL Cholesterol HDL >or= 60 mg/dL High HDL Cholesterol Serum or plasma cholesterol in VLDL measurement (mass/volume)Ordered By: Preston Camilo on 07-04-2023 Cholesterol in VLDL [Mass/Vol] 15 mg/dL 5-40 [facility] Serum or plasma low density lipoprotein (LDL) cholesterol measurement (mass/volume)Ordered By: Preston Camilo on 07-04-2023 Cholesterol in LDL [Mass/Vol] 94 mg/dL 0-130 [facility] Basophil percentageOrdered B y: Preston Camilo on 07-03-2023 Basophil percentage 0-5 SEEN /hpf 0-5 [facility] Bilirubin Test strip Ql (U)O rdered By: Preston Camilo on 07-03-2023 Bilirubin Ql (U) Negative Negative [facility] CNPNon 07-03-2023 CNPN Telephone (AGPOB1) DENIZ KUMAR ([id number]) 1935 M Date Time Provider Department 07/03/23 [...] which facility was the patient seen at: [facility] Emergency Room Was an appointment scheduled (Y/N): N Person calling if other than patient: [facility] Return call to if other than [...] Status:Closed by CHLOE JOYNER on 07/04/23 Normal [facility] Culture, urineOrdered By: Lloyd Camilo on 07-03-2023 Bacteria identified Cx Nom (U) Culture exhibits no growth. [facility] Ketones Test strip Ql (U)Ord ered By: Preston Camilo on 07-03-2023 Ketones Ql (U) 15 mg/dl Negative [facility] Mucus LM Ql (Urine sed)Order ed By: Preston Camilo on 07-03-2023 Mucus Ql (Urine sed) 1+ /hpf [facility] Nitrite Test strip Ql (U)Ord ered By: Preston Camilo on 07-03-2023 Nitrite Ql (U) Negative Negative [facility] Protein Test strip Ql (U)Ord ered By: Preston Camilo on 07-03-2023 Protein Ql (U) 100 mg/dl Negative [facility] Squamous epithelial cells de tection in urine sediment by light microscopyOrdered By: Preston Camilo on 07-03-2023 Epithelial cells.squamous LM Ql (Urine sed) 0-5 SEEN /hpf 0-5 [facility] Urine blood detectionOrdered By: Preston Camilo on 07-03-2023 RBC Ql (U) 25 /ul Negative [facility] RBC Ql (U) 0-5 SEEN /hpf 0-5 [facility] Urine clarityOrdered By: Preston Camilo on 07-03-2023 Clarity (U) Clear Clear [facility] Urine color determinationOrd ered By: Preston Camilo on 07-03-2023 Color (U) Yellow Yellow [facility] Urine glucose detectionOrder ed By: Preston Camilo on 07-03-2023 Glucose Ql (U) Normal mg/dl Normal [facility] Urine leukocyte esterase det ection by dipstickOrdered By: Preston Camilo on 07-03-2023 Leukocyte esterase Test strip Ql (U) 25 /ul Negative [facility] Urine pHOrdered By: Preston Camilo on 07-03-2023 pH (U) 6.0 [pH] 5.0 - 8.0 [facility] Urine sediment bacteria coun t by microscopy (number/high power field)Ordered By: Preston Camilo on 07-03-2023 Bacteria LM.HPF (Urine sed) [#/Area] 1 /[HPF] None Seen [facility] Urine specific gravity measu rementOrdered By: Preston Camilo on 07-03-2023 Specific gravity (U) [Rel density] 1.020 1.002-1.030 [facility] Urobilinogen Auto test strip Ql (U)Ordered By: Preston Camilo on 07-03-2023 Urobilinogen Ql (U) 1 mg/dl Normal [facility] CNDSon 06-27-2023 CN HNO ID: [id number] Author: Bonifacio William PA-C Service: General Surgery Author Type: Physician Protective Signal Superintendent Type: Discharge Summary Filed: 06/27/2023 2:55 PM Note Text: Attestation signed by Kade Garrett MD at 06/27/2023 5:00 PM The M[facility], acting on behalf of the attending physician, has completed the [id number] portion of the patient discharge encounter. SIGNATURE: Kade Garrett MD PATIENT NAME: Deniz Kumar DATE: June 27, 2023 TIME: 5:00 PM Pager: [phone] DISCHARGE SUMMARY PATIENT NAME: Deniz Kumar Code [...] Patient was evaluated in the ED at [facility] on 06/21/2023 as a trauma transfer [...] therapy, and they recommended placement at a group home facility. He would be deemed medically [...] No pending results Discharge Disposition Discharge Disposition: Group Home Facility - Less than 30 Days Activity [...] a d (more content not included)... Normal [facility] THERAPY NTon 06-27-2023 THERAPY NT HNO ID: [id number] Author: Kade Valera PT Service: Physical Therapy Author Type: Physical Therapist Type: Therapy (PT/OT/Speech/Resp) Filed: 06/27/2023 1:06 PM Note Text: Physical Therapy Treatment SERVICE DATE: 06/27/2023 SERVICE TIME: 1113 to 1137 ROOM: [place] [address] Recommended Discharge Disposition: Subacute/SNF Recommended Discharge Disposition Comments: Patient would benefit from group home facility to enhance mobility while maintaining [...] Diagnosis: Reduced mobility-other Interventions Provided: Therapeutic Exercise (14884), Therapeutic Activity (64977), Gait Training (59790) Therapeutic Exercise (70369) Treatment Minutes: 12 $ Therapeutic Exercise (11554) Billed Units: 1 unit Open chain strength exercises to bilateral LEs at available joints. Patient denies p (more content not included)... Normal [facility] Basic metabolic 2000 panelon 06-26-2023 Anion gap [Moles/Vol] 8 mmol/L Low 9-18 [facility] Comment on above: Order Comment: Speci men Type: BLOOD SPECIMENOrdering Facility: [facility] Address: [address] [place] [address] Performed By: #### 2 4321-2 ####[facility] LABORATORYCLIA [id number] [place] [address] [place] Calcium [Mass/Vol] 9.2 mg/dL Normal 8.5-10.2 [facility] Comment on above: Order Comment: Speci men Type: BLOOD SPECIMENOrdering Facility: [facility] Address: [address] [place] [address] Performed By: #### 2 4321-2 ####[facility] LABORATORYCLIA [id number] [place] [address] [place] Chloride [Moles/Vol] 107 mmol/L High 97-105 [facility] Comment on above: Order Comment: Speci men Type: BLOOD SPECIMENOrdering Facility: [facility] Address: [address] [place] [address] Performed By: #### 2 4321-2 ####[facility] LABORATORYCLIA [id number] [address] OF [facility] CO2 [Moles/Vol] 25 mmol/L Normal 22-30 [facility] Comment on above: Order Comment: Speci men Type: BLOOD SPECIMENOrdering Facility: [facility] Address: [address] [place] [address] Performed By: #### 2 4321-2 ####[facility]ITAL[facility]IA [id number] [address] Creatinine [Mass/Vol] 0.98 mg/dL Normal 0.73-1.22 [facility] Comment on above: Order Comment: Speci men Type: BLOOD SPECIMENOrdering Facility: [facility] Address: [address] [place] [address] Performed By: #### 2 4321-2 ####[facility] LABORATORYCLIA [id number] [address] Creatinine and Glomerular filtration rate.predicted panel (S/P/Bld) 75 mL/min/1.73m??? Normal >=60 [facility] Comment on above: Order Comment: Speci men Type: BLOOD SPECIMENOrdering Facility: [facility] Address: [address] [place] [address] Result Comment: Franny mated Glomerular Filtration Rate [...] actual GFR. Performed By: #### 2 4321-2 ####[facility] LABORATORYCLIA [id number] [place] [address] [place] Glucose [Mass/Vol] 86 mg/dL Normal 74-99 [facility] Comment on above: Order Comment: Manuel meme Type: BLOOD SPECIMENOrdering Facility: [facility] Address: [address] [place] [address] Result Comment: The [place] Diabetes Association (ADA) provides guidance for cutoff [...] Standards of Medical Care in Diabetes 2016, [place] [employer]. Diabetes Care. 2016.39(Suppl 1). Performed By: #### 2 4321-2 ####[facility] LABORATORYCLIA [id number] [place] [address] [place] Potassium [Moles/Vol] 3.9 mmol/L Normal 3.7-5.1 [facility] Comment on above: Order Comment: Manuel meme Type: BLOOD SPECIMENOrdering Facility: [facility] Address: [address] [place] [address] Performed By: #### 2 4321-2 ####[facility] LABORATORYCLIA [id number] [place] [address] [place] Sodium [Moles/Vol] 140 mmol/L Normal 136-144 [facility] Comment on above: Order Comment: Manuel meme Type: BLOOD SPECIMENOrdering Facility: [facility] Address: [address] [place] [address] Performed By: #### 2 4321-2 ####[facility] LABORATORYCLIA [id number] [place] [address] [place] Urea nitrogen [Mass/Vol] 28 mg/dL High 9-24 [facility] Comment on above: Order Comment: Mynori meme Type: BLOOD SPECIMENOrdering Facility: [facility] Address: [address] [place] [address] Performed By: #### 2 4321-2 ####[facility] LABORATORYCLIA [id number] [address] CBC panel Auto (Bld)on 06-26 Erythrocyte distribution width (RBC) [Ratio] 12.8 % Normal 11.5-15.0 [facility] Comment on above: Order Comment: Speci men Type: BLOOD SPECIMENOrdering Facility: [facility] Address: [address] [place] [address] Performed By: #### 5 8410-2 ####[facility] LABORATORYCLIA [id number] [address] Hematocrit (Bld) [Volume fraction] 39.3 % Normal 39.0-51.0 [facility] Comment on above: Order Comment: Speci men Type: BLOOD SPECIMENOrdering Facility: [facility] Address: [address] [place] [address] Performed By: #### 5 8410-2 ####[facility] LABORATORYCLIA [id number] [address] OF [place] Hemoglobin (Bld) [Mass/Vol] 13.4 g/dL Normal 13.0-17.0 [facility] Comment on above: Order Comment: Speci men Type: BLOOD SPECIMENOrdering Facility: [facility] Address: [address] [place] [address] Performed By: #### 5 8410-2 ####[facility] LABORATORYCLIA [id number] [address] STATES [facility] MCH (RBC) [Entitic mass] 30.9 pg Normal 26.0-34.0 [facility] Comment on above: Order Comment: Speci men Type: BLOOD SPECIMENOrdering Facility: [facility] Address: [address] [place] [address] Performed By: #### 5 8410-2 ####[facility] LABORATORYCLIA [id number] [address] [place] MCHC (RBC) [Mass/Vol] 34.1 g/dL Normal 30.5-36.0 [facility] Comment on above: Order Comment: Speci men Type: BLOOD SPECIMENOrdering Facility: [facility] Address: [address] [place] [address] Performed By: #### 5 8410-2 ####[facility] LABORATORYCLIA [id number] [address] MCV (RBC) [Entitic vol] 90.8 fL Normal 80.0-100.0 [facility] Comment on above: Order Comment: Speci men Type: BLOOD SPECIMENOrdering Facility: [facility] Address: [address] [place] [address] Performed By: #### 5 8410-2 ####[facility] LABORATORYCLIA [id number] [address] Nucleated RBC (Bld) [#/Vol] 10*3/uL Normal <0.01 [facility] Comment on above: Order Comment: Speci men Type: BLOOD SPECIMENOrdering Facility: [facility] Address: [address] [place] [address] Performed By: #### 5 8410-2 ####[facility] LABORATORYCLIA [id number] [address] Platelet mean volume (Bld) [Entitic vol] 11.3 fL Normal 9.0-12.7 [facility] Comment on above: Order Comment: Speci men Type: BLOOD SPECIMENOrdering Facility: [facility] Address: [address] [place] [address] Performed By: #### 5 8410-2 ####[facility] LABORATORYCLIA [id number] [address] Platelets (Bld) [#/Vol] 108 10*3/uL Low 150-400 [facility] Comment on above: Order Comment: Speci men Type: BLOOD SPECIMENOrdering Facility: [facility] Address: [address] [place] [address] Result Comment: No c lot detected. Performed By: #### 5 8410-2 ####[facility] LABORATORYCLIA [id number] [place] [address] [facility] RBC (Bld) [#/Vol] 4.33 10*6/uL Normal 4.20-6.00 [facility] Comment on above: Order Comment: Speci men Type: BLOOD SPECIMENOrdering Facility: [facility] Address: [address] [place] [address] Performed By: #### 5 8410-2 ####[facility] LABORATORYCLIA [id number] [place] [id number] [facility] WBC (Bld) [#/Vol] 4.95 10*3/uL Normal 3.70-11.00 [facility] Comment on above: Order Comment: Speci men Type: BLOOD SPECIMENOrdering Facility: [facility] Address: [address] [place] [address] Performed By: #### 5 8410-2 ####[facility]PITALCLIA [id number] [place] [id number] [facility] NURSING PROGon 06-26-2023 NURSING PROG HNO ID: [id number] Author: Makayla Riggins RN Service: ? Author Type: Registered Nurse Type: Nursing Progress Note Filed: 06/26/2023 5:10 PM Note Text: Nursing Progress Note Patient Name: Deniz Kumar Patient Location: [place] [address] [id number] -[id number] Surgery paged regarding patients blood pressure of 161/103 at 11:42 and 155/100 at 15:17. OR nurse notified to pass to team. No new orders at this time. This note was completed by: Makayla Riggins Normal [facility] THERAPY NTon 06-26-2023 THERAPY NT HNO ID: [id number] Author: Marlen Unger, OTR/L Service: Occupational Therapy Author Type: Occupational Therapist Type: Therapy (PT/OT/Speech/Resp) Filed: 06/26/2023 4:41 PM Note Text: Occupational Therapy Treatment SERVICE DATE: 06/26/2023 SERVICE TIME: 1603 to 1627 ROOM: [id number] Recommended Discharge Disposition: Subacute/SNF Recommended Discharge Disposition [...] to re (more content not included)... Normal [facility] THERAPY NT HNO ID: [id number] Author: Jon Araujo PT Service: Physical Therapy Author Type: Physical Therapist Type: Therapy (PT/OT/Speech/Resp) Filed: 06/26/2023 3:13 PM Note Text: Physical Therapy Treatment SERVICE DATE: 06/26/2023 SERVICE TIME: 1442 to 1506 ROOM: [place] [address] Recommended Discharge Disposition: Subacute/SNF Recommended Discharge Disposition Comments: Patient would benefit from group home facility to enhance mobility while maintaining [...] falls/injury and would benefit from discharge to group home facility once medically stable prior to [...] Sit wi (more content not included)... Normal [facility] 25(OH)D3 SerPl-ncon 2022 25-hydroxyvitamin D3 [Mass/Vol] 37.0 ng/mL Normal >=30.0 [facility] Comment on above: Order Comment: Speci men Type: BLOOD SPECIMENOrdering Facility: [facility] Address: [address] [place] [address] Result Comment: Clas sification of 25 [place] Vitamin D status: Deficiency: <= 20.0 ng/ml. Insufficiency: 21.0-29.0 ng/ml. Sufficiency: >= 30.0 ng/ml. Performed By: #### 1 989-3 ####[facility] LABORATORYCLIA [id number] [place] [address] [place] Basic metabolic 2000 panelon 06-25-2023 Anion gap [Moles/Vol] 9 mmol/L Normal 9-18 [facility] Comment on above: Order Comment: Speci men Type: BLOOD SPECIMENOrdering Facility: [facility] Address: [address] [place] [address] Performed By: #### 2 4321-2 ####[facility] LABORATORYCLIA [id number] [place] [address] [place] Calcium [Mass/Vol] 9.2 mg/dL Normal 8.5-10.2 [facility] Comment on above: Order Comment: Speci men Type: BLOOD SPECIMENOrdering Facility: [facility] Address: [address] [place] [address] Performed By: #### 2 4321-2 ####[facility] LABORATORYCLIA [id number] [place] [address] [place] Chloride [Moles/Vol] 106 mmol/L High 97-105 [facility] Comment on above: Order Comment: Speci men Type: BLOOD SPECIMENOrdering Facility: [facility] Address: [address] [place] [address] Performed By: #### 2 4321-2 ####[facility] LABORATORYCLIA [id number] [place] [address] [place] CO2 [Moles/Vol] 26 mmol/L Normal 22-30 [facility] Comment on above: Order Comment: Speci men Type: BLOOD SPECIMENOrdering Facility: [facility] Address: [address] [place] [address] Performed By: #### 2 4321-2 ####[facility]ORATORYCLIA [id number] [place] [address] [place] Creatinine [Mass/Vol] 0.95 mg/dL Normal 0.73-1.22 [facility] Comment on above: Order Comment: Speci men Type: BLOOD SPECIMENOrdering Facility: [facility] Address: [address] [place] [address] Performed By: #### 2 4321-2 ####[facility]ORATORYCLIA [id number] [place] [address] [place] Creatinine and Glomerular filtration rate.predicted panel (S/P/Bld) 77 mL/min/1.73m??? Normal >=60 [facility] Comment on above: Order Comment: Manuel valentine Type: BLOOD SPECIMENOrdering Facility: [facility] Address: [address] [place] [address] Result Comment: Franny mated Glomerular Filtration Rate [...] actual GFR. Performed By: #### 2 4321-2 ####[facility]ITALCLIA [id number] [place] [address] [place] Glucose [Mass/Vol] 84 mg/dL Normal 74-99 [facility] Comment on above: Order Comment: Manuel valentine Type: BLOOD SPECIMENOrdering Facility: [facility] Address: [address] [place] [address] Result Comment: The [place] Diabetes Association (ADA) provides guidance for cutoff [...] Standards of Medical Care in Diabetes 2016, [place] [employer]. Diabetes Care. 2016.39(Suppl 1). Performed By: #### 2 4321-2 ####[facility] LABORATORYCLIA [id number] [place] [address] [place] Potassium [Moles/Vol] 3.6 mmol/L Low 3.7-5.1 [facility] Comment on above: Order Comment: Manuel valentine Type: BLOOD SPECIMENOrdering Facility: [facility] Address: [address] [place] [address] Performed By: #### 2 4321-2 ####[facility] LABORATORYCLIA [id number] [address] Sodium [Moles/Vol] 141 mmol/L Normal 136-144 [facility] Comment on above: Order Comment: Speci men Type: BLOOD SPECIMENOrdering Facility: [facility] Address: [address] [place] [address] Performed By: #### 2 4321-2 ####[facility] LABORATORYCLIA [id number] [address] STATES [place] Urea nitrogen [Mass/Vol] 30 mg/dL High 9-24 [facility] Comment on above: Order Comment: Speci men Type: BLOOD SPECIMENOrdering Facility: [facility] Address: [address] [place] [address] Performed By: #### 2 4321-2 ####[facility] LABORATORYCLIA [id number] [address] CBC panel Auto (Bld)on 06-25 Erythrocyte distribution width (RBC) [Ratio] 12.8 % Normal 11.5-15.0 [facility] Comment on above: Order Comment: Speci men Type: BLOOD SPECIMENOrdering Facility: [facility] Address: [address] [place] [address] Performed By: #### 5 8410-2 ####[facility] LABORATORYCLIA [id number] [address] [place] Hematocrit (Bld) [Volume fraction] 43.2 % Normal 39.0-51.0 [facility] Comment on above: Order Comment: Speci men Type: BLOOD SPECIMENOrdering Facility: [facility] Address: [address] [place] [address] Performed By: #### 5 8410-2 ####[facility] LABORATORYCLIA [id number] [address] Hemoglobin (Bld) [Mass/Vol] 14.5 g/dL Normal 13.0-17.0 [facility] Comment on above: Order Comment: Speci men Type: BLOOD SPECIMENOrdering Facility: [facility] Address: [address] [place] [address] Performed By: #### 5 8410-2 ####[facility] LABORATORYCLIA [id number] [address] MCH (RBC) [Entitic mass] 30.5 pg Normal 26.0-34.0 [facility] Comment on above: Order Comment: Speci men Type: BLOOD SPECIMENOrdering Facility: [facility] Address: [address] [place] [address] Performed By: #### 5 8410-2 ####[facility] LABORATORYCLIA [id number] [address] MCHC (RBC) [Mass/Vol] 33.6 g/dL Normal 30.5-36.0 [facility] Comment on above: Order Comment: Speci men Type: BLOOD SPECIMENOrdering Facility: [facility] Address: [address] [place] [address] Performed By: #### 5 8410-2 ####[facility] LABORATORYCLIA [id number] [address] MCV (RBC) [Entitic vol] 90.8 fL Normal 80.0-100.0 [facility] Comment on above: Order Comment: Speci men Type: BLOOD SPECIMENOrdering Facility: [facility] Address: [address] [place] [address] Performed By: #### 5 8410-2 ####[facility] LABORATORYCLIA [id number] [address] Nucleated RBC (Bld) [#/Vol] 10*3/uL Normal <0.01 [facility] Comment on above: Order Comment: Speci men Type: BLOOD SPECIMENOrdering Facility: [facility] Address: [address] [place] [address] Performed By: #### 5 8410-2 ####[facility] LABORATORYCLIA [id number] [address] [place] Platelet mean volume (Bld) [Entitic vol] 11.4 fL Normal 9.0-12.7 [facility] Comment on above: Order Comment: Speci men Type: BLOOD SPECIMENOrdering Facility: [facility] Address: [address] [place] [address] Performed By: #### 5 8410-2 ####[facility] LABORATORYCLIA [id number] [place] [address] [place] Platelets (Bld) [#/Vol] 109 10*3/uL Low 150-400 [facility] Comment on above: Order Comment: Speci men Type: BLOOD SPECIMENOrdering Facility: [facility] Address: [address] [place] [address] Result Comment: No c lot detected. Performed By: #### 5 8410-2 ####[facility] LABORATORYCLIA [id number] [address] [place] RBC (Bld) [#/Vol] 4.76 10*6/uL Normal 4.20-6.00 [facility] Comment on above: Order Comment: Speci men Type: BLOOD SPECIMENOrdering Facility: [facility] Address: [address] [place] [address] Performed By: #### 5 8410-2 ####[facility] LABORATORYCLIA [id number] [address] [place] WBC (Bld) [#/Vol] 6.73 10*3/uL Normal 3.70-11.00 [facility] Comment on above: Order Comment: Speci men Type: BLOOD SPECIMENOrdering Facility: [facility] Address: [address] [place] [address] Performed By: #### 5 8410-2 ####[facility] LABORATORYCLIA [id number] [address] [place] Basic metabolic 2000 panelon 06-24-2023 Anion gap [Moles/Vol] 8 mmol/L Low 9-18 [facility] Comment on above: Order Comment: Speci men Type: BLOOD SPECIMENOrdering Facility: [facility] Address: [address] [place] [address] Performed By: #### 2 4321-2 ####[facility]ATORYCLIA [id number] [place] [address] [place] Calcium [Mass/Vol] 9.0 mg/dL Normal 8.5-10.2 [facility] Comment on above: Order Comment: Speci men Type: BLOOD SPECIMENOrdering Facility: [facility] Address: [address] [place] [address] Performed By: #### 2 4321-2 ####[facility] LABORATORYCLIA [id number] [place] [address] [place] Chloride [Moles/Vol] 105 mmol/L Normal 97-105 [facility] Comment on above: Order Comment: Speci men Type: BLOOD SPECIMENOrdering Facility: [facility] Address: [address] [place] [address] Performed By: #### 2 4321-2 ####[facility] LABORATORYCLIA [id number] [address] [place] CO2 [Moles/Vol] 27 mmol/L Normal 22-30 [facility] Comment on above: Order Comment: Speci men Type: BLOOD SPECIMENOrdering Facility: [facility] Address: [address] [place] [address] Performed By: #### 2 4321-2 ####[facility] LABORATORYCLIA [id number] [place] [address] [place] Creatinine [Mass/Vol] 0.91 mg/dL Normal 0.73-1.22 [facility] Comment on above: Order Comment: Speci men Type: BLOOD SPECIMENOrdering Facility: [facility] Address: [address] [place] [address] Performed By: #### 2 4321-2 ####[facility]ATORYCLIA [id number] [address] [place] Creatinine and Glomerular filtration rate.predicted panel (S/P/Bld) 82 mL/min/1.73m??? Normal >=60 [facility] Comment on above: Order Comment: Manuel valentine Type: BLOOD SPECIMENOrdering Facility: [facility] Address: [address] [place] [address] Result Comment: Franny mated Glomerular Filtration Rate [...] actual GFR. Performed By: #### 2 4321-2 ####[facility] LABORATORYCLIA [id number] [place] [address] [place] Glucose [Mass/Vol] 111 mg/dL High 74-99 [facility] Comment on above: Order Comment: Manuel valentine Type: BLOOD SPECIMENOrdering Facility: [facility] Address: [address] [place] [address] Result Comment: The [place] Diabetes Association (ADA) provides guidance for cutoff [...] Standards of Medical Care in Diabetes 2016, [place] [employer]. Diabetes Care. 2016.39(Suppl 1). Performed By: #### 2 4321-2 ####[facility] LABORATORYCLIA [id number] [place] [address] [place] Potassium [Moles/Vol] 3.8 mmol/L Normal 3.7-5.1 [facility] Comment on above: Order Comment: Manuel valentine Type: BLOOD SPECIMENOrdering Facility: [facility] Address: [address] [place] [address] Performed By: #### 2 4321-2 ####[facility]ORATORYCLIA [id number] [place] [id number] [place] [facility] Sodium [Moles/Vol] 140 mmol/L Normal 136-144 [facility] Comment on above: Order Comment: Speci men Type: BLOOD SPECIMENOrdering Facility: [facility] Address: [address] [place] [address] Performed By: #### 2 4321-2 ####[facility] LABORATORYCLIA [id number] [address] STATES [facility] Urea nitrogen [Mass/Vol] 33 mg/dL High 9-24 [facility] Comment on above: Order Comment: Speci men Type: BLOOD SPECIMENOrdering Facility: [facility] Address: [address] [place] [address] Performed By: #### 2 4321-2 ####[facility] LABORATORYCLIA [id number] [address] CBC panel Auto (Bld)on 06-24 Erythrocyte distribution width (RBC) [Ratio] 13.0 % Normal 11.5-15.0 [facility] Comment on above: Order Comment: Speci men Type: BLOOD SPECIMENOrdering Facility: [facility] Address: [address] [place] [address] Performed By: #### 5 8410-2 ####[facility] LABORATORYCLIA [id number] [address] [place] Hematocrit (Bld) [Volume fraction] 41.5 % Normal 39.0-51.0 [facility] Comment on above: Order Comment: Speci men Type: BLOOD SPECIMENOrdering Facility: [facility] Address: [address] [place] [address] Performed By: #### 5 8410-2 ####[facility]ORATORYCLIA [id number] [address] Hemoglobin (Bld) [Mass/Vol] 14.0 g/dL Normal 13.0-17.0 [facility] Comment on above: Order Comment: Speci men Type: BLOOD SPECIMENOrdering Facility: [facility] Address: [address] [place] [address] Performed By: #### 5 8410-2 ####[facility]ORATORYCLIA [id number] [address] MCH (RBC) [Entitic mass] 30.8 pg Normal 26.0-34.0 [facility] Comment on above: Order Comment: Speci men Type: BLOOD SPECIMENOrdering Facility: [facility] Address: [address] [place] [address] Performed By: #### 5 8410-2 ####[facility] LABORATORYCLIA [id number] [address] MCHC (RBC) [Mass/Vol] 33.7 g/dL Normal 30.5-36.0 [facility] Comment on above: Order Comment: Speci men Type: BLOOD SPECIMENOrdering Facility: [facility] Address: [address] [place] [address] Performed By: #### 5 8410-2 ####[facility] LABORATORYCLIA [id number] [address] MCV (RBC) [Entitic vol] 91.2 fL Normal 80.0-100.0 [facility] Comment on above: Order Comment: Speci men Type: BLOOD SPECIMENOrdering Facility: [facility] Address: [address] [place] [address] Performed By: #### 5 8410-2 ####[facility] LABORATORYCLIA [id number] [address] Nucleated RBC (Bld) [#/Vol] 10*3/uL Normal <0.01 [facility] Comment on above: Order Comment: Speci men Type: BLOOD SPECIMENOrdering Facility: [facility] Address: [address] [place] [address] Performed By: #### 5 8410-2 ####[facility]ORATORYCLIA [id number] [address] Platelet mean volume (Bld) [Entitic vol] 11.0 fL Normal 9.0-12.7 [facility] Comment on above: Order Comment: Speci men Type: BLOOD SPECIMENOrdering Facility: [facility] Address: [address] [place] [address] Performed By: #### 5 8410-2 ####[facility] LABORATORYCLIA [id number] [address] [place] Platelets (Bld) [#/Vol] 96 10*3/uL Low 150-400 [facility] Comment on above: Order Comment: Speci men Type: BLOOD SPECIMENOrdering Facility: [facility] Address: [address] [place] [address] Result Comment: No c lot detected. Performed By: #### 5 8410-2 ####[facility] LABORATORYCLIA [id number] [address] STATES OF [facility] RBC (Bld) [#/Vol] 4.55 10*6/uL Normal 4.20-6.00 [facility] Comment on above: Order Comment: Speci men Type: BLOOD SPECIMENOrdering Facility: [facility] Address: [address] [place] [address] Performed By: #### 5 8410-2 ####[facility] LABORATORYCLIA [id number] [address] WBC (Bld) [#/Vol] 8.35 10*3/uL Normal 3.70-11.00 [facility] Comment on above: Order Comment: Speci men Type: BLOOD SPECIMENOrdering Facility: [facility] Address: [address] [place] [address] Performed By: #### 5 8410-2 ####[facility] LABORATORYCLIA [id number] [address] CONSULT PROGon 06-24-2023 CONSULT PROG HNO ID: [id number] Author: Marily Burciaga APRN.CUSTODIAL ENGINEER Service: Neurosurgery Author Type: Nurse Practitioner Type: [...] (Oral) Resp 18 Ht 182.9 cm (6' 0.01) Wt 98.3 kg (216 lb 11.4 oz) SpO2 94% BMI 29.38 kg/m? O2 Therapy: Room Air IANDO: Date 06/23/23 07 - 06/24/23 0606/24/23 07 - 06/25/23 0659 Shift 8695-9913 0611-0121 8466-0673 24 Hour Total 4292-8427 0782-0378 4360-4022 24 Hour Total INTAKE IV 700 100 [...] making for today's visit. SIGNATURE: Marily Burciaga APRN.CUSTODIAL ENGINEER PATIENT NAME: Deniz Kumar DATE: June 24, 2023 TIME: 9:28 AM Pager: [phone] Normal [facility] THERAPY NTon 06-24-2023 THERAPY NT HNO ID: [id number] Author: Ludivina Barcenas PT Service: Physical Therapy Author Type: Physical Therapist Type: Therapy (PT/OT/Speech/Resp) Filed: 06/24/2023 1:50 PM Note Text: Physical Therapy Evaluation SERVICE DATE: 06/24/2023 SERVICE TIME: 1200 to 1245 ROOM: [place] [address] Recommended Discharge Disposition: Subacute/SNF Recommended Discharge Disposition Comments: Patient would benefit from group home facility to enhance mobility while maintaining [...] all of his ADLs by himself. Recommend group home to promote independence with functional mobility [...] mobility-other In (more content not included)... Normal [facility] THERAPY NT HNO ID: [id number] Author: Michelle El, OTR/L Service: Occupational Therapy Author Type: Occupational Therapist Type: Therapy (PT/OT/Speech/Resp) Filed: 06/24/2023 11:20 AM Note Text: Occupational Therapy Evaluation SERVICE DATE: 06/24/2023 SERVICE TIME: 904 to 932 ROOM: [place] [address] Recommended Discharge Disposition: Subacute/SNF Recommended Discharge Disposition [...] No mistakes Asess Attention: Ask patient to tell me the months of the year backwards order, starting with May: Able to state 7+ months correctly Evidence [...] Hobbies/Leisure Acti (more content not included)... Normal [facility] ALLIED HEALTHon 06-23-2023 ALLIED HEALTH HNO ID: [id number] Author: Robina Lord RT(R) Service: ? Author [...] RT Geetha(R) June 23, 2023 1:53 PM [facility] ANES POSTPROC EVALon 023 ANES POSTPROC EVAL HNO ID: [id number] Author: Renaldo Mccurdy MD Service: Anesthesiology Author [...] June 23, 2023 TIME: 11:12 AM CSN: [id number] [facility] ANES PRE-OPon 06-23-2023 ANES PRE-OP HNO ID: [id number] Author: Renaldo Mccurdy MD Service: Anesthesiology Author Type: Anesthesiologist Type: Anesthesia Preprocedure Evaluation Filed: 06/23/2023 7:55 AM Note Text: ANESTHESIOLOGY DAY OF SURGERY NOTE : 1935 Procedure Information Date/Time: 06/23/23 0800 Procedures: OPEN REDUCTION DISTAL FIBULAR FX. W/ INTERNAL FIXATION WHEN PERFORMED (Left: Ankle) ORIF SYNDESMOSIS LOWER EXTREMITY (Left: Ankle) Location: [place] [address] [place] [address] OR Surgeons: Bonifacio Valdez MD Estimated body mass index is 29.3 kg/m? as calculated from the following: Height as of this encounter: 182.9 cm (6' 0.01). Weight as of this encounter: 98 kg [...] June 23, 2023 TIME: 7:10 AM CSN: [id number] [facility] BRIEF OP NOTon 06-23-2023 BRIEF OP NOT HNO ID: [id number] Author: Uche Vasquez MD Service: Orthopaedic Surgery Author Type: Resident Type: Brief Op Note Filed: 06/23/2023 9:17 AM Note Text: BRIEF OPERATIVE / PROCEDURE NOTE LOG ID: [id number] SURGERY/PROCEDURE DATE: 06/23/2023 INCISION/PROCEDURE START TIME: 8:22 AM INCISION CLOSE/PROCEDURE END TIME: 9:08 AM SURGEON(S)/PROCEDURALIS T(S) AND RESEARCH EDITOR(S): Surgeon(s) and Role: * Bonifacio Valdez MD [...] - PGY 3 9:16 AM 06/23/2023 Pager #[phone] [facility] Basic metabolic 2000 panelon 06-23-2023 Anion gap [Moles/Vol] 8 mmol/L Low 9-18 [facility] Comment on above: Order Comment: Speci men Type: BLOOD SPECIMENOrdering Facility: [facility] Address: [address] [place] [address] Performed By: #### 2 4321-2 ####[facility] LABORATORYCLIA [id number] [address] [place] Calcium [Mass/Vol] 8.9 mg/dL Normal 8.5-10.2 [facility] Comment on above: Order Comment: Speci men Type: BLOOD SPECIMENOrdering Facility: [facility] Address: [address] [place] [address] Performed By: #### 2 4321-2 ####[facility] LABORATORYCLIA [id number] [place] [address] [place] Chloride [Moles/Vol] 108 mmol/L High 97-105 [facility] Comment on above: Order Comment: Speci men Type: BLOOD SPECIMENOrdering Facility: [facility] Address: [address] [place] [address] Performed By: #### 2 4321-2 ####[facility] LABORATORYCLIA [id number] [address] [place] CO2 [Moles/Vol] 25 mmol/L Normal 22-30 [facility] Comment on above: Order Comment: Speci men Type: BLOOD SPECIMENOrdering Facility: [facility] Address: [address] [place] [address] Performed By: #### 2 4321-2 ####[facility] LABORATORYCLIA [id number] [address] [place] Creatinine [Mass/Vol] 0.89 mg/dL Normal 0.73-1.22 [facility] Comment on above: Order Comment: Speci men Type: BLOOD SPECIMENOrdering Facility: [facility] Address: [address] [place] [address] Performed By: #### 2 4321-2 ####[facility] LABORATORYCLIA [id number] [address] Creatinine and Glomerular filtration rate.predicted panel (S/P/Bld) 83 mL/min/1.73m??? Normal >=60 [facility] Comment on above: Order Comment: Speci men Type: BLOOD SPECIMENOrdering Facility: [facility] Address: [address] [place] [address] Result Comment: Franny mated Glomerular Filtration Rate [...] actual GFR. Performed By: #### 2 4321-2 ####[facility] LABORATORYCLIA [id number] [place] [address] [place] Glucose [Mass/Vol] 99 mg/dL Normal 74-99 [facility] Comment on above: Order Comment: Manuel men Type: BLOOD SPECIMENOrdering Facility: [facility] Address: [address] [place] [address] Result Comment: The [place] Diabetes [employer] (ADA) provides guidance for cutoff [...] Standards of Medical Care in Diabetes 2016, [place] [employer]. Diabetes Care. 2016.39(Suppl 1). Performed By: #### 2 4321-2 ####[facility] LABORATORYCLIA [id number] [place] [address] [place] Potassium [Moles/Vol] 3.9 mmol/L Normal 3.7-5.1 [facility] Comment on above: Order Comment: Manuel valentine Type: BLOOD SPECIMENOrdering Facility: [facility] Address: [address] [place] [address] Performed By: #### 2 4321-2 ####[facility] LABORATORYCLIA [id number] [place] [id number] [facility] [place] Sodium [Moles/Vol] 141 mmol/L Normal 136-144 [facility] Comment on above: Order Comment: Speci men Type: BLOOD SPECIMENOrdering Facility: [facility] Address: [address] [place] [address] Performed By: #### 2 4321-2 ####[facility] LABORATORYCLIA [id number] [address] [place] Urea nitrogen [Mass/Vol] 37 mg/dL High 03-24 [facility] Comment on above: Order Comment: Speci men Type: BLOOD SPECIMENOrdering Facility: [facility] Address: [address] [place] [address] Performed By: #### 2 4321-2 ####[facility] LABORATORYCLIA [id number] [address] STATES OF [facility] CBC panel Auto (Bld)on 06-23 Erythrocyte distribution width (RBC) [Ratio] 13.0 % Normal 11.5-15.0 [facility] Comment on above: Order Comment: Speci men Type: BLOOD SPECIMENOrdering Facility: [facility] Address: [address] [place] [address] Performed By: #### 5 8410-2 ####[facility] LABORATORYCLIA [id number] [address] [place] Hematocrit (Bld) [Volume fraction] 40.3 % Normal 39.0-51.0 [facility] Comment on above: Order Comment: Speci men Type: BLOOD SPECIMENOrdering Facility: [facility] Address: [address] [place] [address] Performed By: #### 5 8410-2 ####[facility] LABORATORYCLIA [id number] [address] [place] Hemoglobin (Bld) [Mass/Vol] 13.7 g/dL Normal 13.0-17.0 [facility] Comment on above: Order Comment: Speci men Type: BLOOD SPECIMENOrdering Facility: [facility] Address: [address] [place] [address] Performed By: #### 5 8410-2 ####[facility] LABORATORYCLIA [id number] [address] MCH (RBC) [Entitic mass] 31.3 pg Normal 26.0-34.0 [facility] Comment on above: Order Comment: Speci men Type: BLOOD SPECIMENOrdering Facility: [facility] Address: [address] [place] [address] Performed By: #### 5 8410-2 ####[facility] LABORATORYCLIA [id number] [address] MCHC (RBC) [Mass/Vol] 34.0 g/dL Normal 30.5-36.0 [facility] Comment on above: Order Comment: Speci men Type: BLOOD SPECIMENOrdering Facility: [facility] Address: [address] [place] [address] Performed By: #### 5 8410-2 ####[facility] LABORATORYCLIA [id number] [address] MCV (RBC) [Entitic vol] 92.0 fL Normal 80.0-100.0 [facility] Comment on above: Order Comment: Speci men Type: BLOOD SPECIMENOrdering Facility: [facility] Address: [address] [place] [address] Performed By: #### 5 8410-2 ####[facility] LABORATORYCLIA [id number] [address] Nucleated RBC (Bld) [#/Vol] 10*3/uL Normal <0.01 [facility] Comment on above: Order Comment: Speci men Type: BLOOD SPECIMENOrdering Facility: [facility] Address: [address] [place] [address] Performed By: #### 5 8410-2 ####[facility] LABORATORYCLIA [id number] [address] Platelet mean volume (Bld) [Entitic vol] 11.0 fL Normal 9.0-12.7 [facility] Comment on above: Order Comment: Speci men Type: BLOOD SPECIMENOrdering Facility: [facility] Address: [address] [place] [address] Performed By: #### 5 8410-2 ####[facility] LABORATORYCLIA [id number] [address] Platelets (Bld) [#/Vol] 99 10*3/uL Low 150-400 [facility] Comment on above: Order Comment: Speci men Type: BLOOD SPECIMENOrdering Facility: [facility] Address: [address] [place] [address] Result Comment: No c lot detected. Performed By: #### 5 8410-2 ####[facility] LABORATORYCLIA [id number] [address] OF [facility] RBC (Bld) [#/Vol] 4.38 10*6/uL Normal 4.20-6.00 [facility] Comment on above: Order Comment: Speci men Type: BLOOD SPECIMENOrdering Facility: [facility] Address: [address] [place] [address] Performed By: #### 5 8410-2 ####[facility] LABORATORYCLIA [id number] [address] WBC (Bld) [#/Vol] 7.13 10*3/uL Normal 3.70-11.00 [facility] Comment on above: Order Comment: Speci men Type: BLOOD SPECIMENOrdering Facility: [facility] Address: [address] [place] [address] Performed By: #### 5 8410-2 ####[facility] LABORATORYCLIA [id number] [address] CONSULT PROGon 06-23-2023 CONSULT PROG HNO ID: [id number] Author: Lynda Holman PA-C Service: Neurosurgery Author Type: Physician Protective Signal Superintendent Type: Consult Progress Note Filed: 06/23/2023 12:04 PM Note Text: Neurosurgery Progress Note SERVICE DATE: 06/23/2023 SUBJECTIVE: Status post left ankle ORIF. No new complaints, is in good spirits OBJECTIVE: Vitals: Temp (24hrs), Av.5 ?C (97.7 ?F), Min:36.4 ?C (97.5 ?F), Max:36.6 ?C (97.9 ?F) BP 151/88 Pulse (!) 51 Temp 36.5 ?C (97.7 ?F) (Oral) Resp 18 Ht 182.9 cm (6' 0.01) Wt 98 kg (216 lb 0.8 oz) [...] Prophylaxis/Anticoagula nts 06/21/231929 vte pharmacologic prophylaxis contraindicated (ct,oh) 06/21/231929 pneumatic compression stockings (ct,oh) 06/21/231929 activity - mobilize patient (ct,vt) Parts of this note may have been copied from one of my previous notes and remain pertinent. The documentation has been reviewed and edited as necessary to support the clinical decision making for today's visit. SIGNATURE: Lynda Holman PA-C PATIENT NAME: Deniz Kumar DATE: June 23, 2023 TIME: 6:20 AM Pager: [phone] Normal [facility] CT BRAIN WO IVCONon 06-23-20 CT BRAIN WO IVCON * * *Final Report* * * DATE OF EXAM: Jun 23 2023 1:56PM [facility] 0504 - CT BRAIN WO IVCON / [...] recon COMPARISON: CT brain performed 06/22/2023. RESULT: Teletypesetter Monitor (topogram) images: Noncontributory. Post-operative change: None. Acute [...] products as above. No new acute findings. 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: [employer] Transcribe Date/Time: Jun 23 2023 2:30P Dictated by : BRITTANY KING MD This examination was interpreted and the report reviewed and electronically signed by: BRITTANY KING MD on Jun 23 2023 2:35PM EST [id number] Normal [facility] OPERATIVE NOon 06-23-2023 OPERATIVE NO HNO ID: [id number] Author: Bonifacio Valdez MD Service: Orthopaedic Surgery Author Type: Physician Type: Operative Report Filed: 06/23/2023 9:17 AM Note Text: ORTHO OPERATIVE REPORT LOG ID: [id number] Surgery/Procedure Date: 06/23/2023 Incision/Procedure Start Time: 8:22 AM Incision Close/Procedure End Time: 9:08 AM Surgeon(s)/Proceduralis t(s) and Protective Signal Superintendent(s): Surgeon(s) and Role: * Bonifacio Valdez MD [...] 2023 TIME: 9:15 AM PAGER/CONTACT #: Normal [facility] XR ANKLE 2V AP/LAT LTon 06-01 XR ANKLE 2V AP/LAT LT * * *Final Report* * * DATE OF EXAM: Jun 23 2023 9:02AM [facility] 5575 - XR ANKLE 2V AP/LAT [...] Correlate with operative report and postoperative radiographs. 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: [facility] Transcribe Date/Time: Jun 24 2023 2:25P Dictated by : CLINTON PAULSON MD This examination was interpreted and the report reviewed and electronically signed by: CLINTON PAULSON MD on Jun 24 2023 2:33PM EST [id number] Normal [facility] XR ANKLE 3V AP/LAT/OBL LTon 06-23-2023 [...] maintained. External splint. IMPRESSION: ORIF fibular fracture 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: [facility] Transcribe Date/Time: Jun 24 2023 9:32A Dictated by : SUNDEEP WHITAKER MD This examination was interpreted and the report reviewed and electronically signed by: SUNDEEP WHITAKER MD on Jun 24 2023 9:33AM EST [id number] Normal [facility] ALLIED HEALTHon 06-22-2023 ALLIED HEALTH HNO ID: [id number] Author: Tyrone Guzman RT(R) Service: Radiology Author [...] Davin(R) June 22, 2023 5:05 AM Normal [facility] Basic metabolic 2000 panelon 06-22-2023 Anion gap [Moles/Vol] 9 mmol/L Normal 9-18 [facility] Comment on above: Order Comment: Speci men Type: BLOOD SPECIMENOrdering Facility: [facility] Address: [address] [place] [address] Performed By: #### 2 432-2, , 2776-07 ####[facility] LABORATORYCLIA [id number] [place] [address] [place] Calcium [Mass/Vol] 8.6 mg/dL Normal 8.5-10.2 [facility] Comment on above: Order Comment: Speci men Type: BLOOD SPECIMENOrdering Facility: [facility] Address: [address] [place] [address] Performed By: #### 2 4321-2, , 2776-07 ####[facility] LABORATORYCLIA [id number] [place] [address] [place] Chloride [Moles/Vol] 106 mmol/L High 97-105 [facility] Comment on above: Order Comment: Speci men Type: BLOOD SPECIMENOrdering Facility: [facility] Address: [address] [place] [address] Performed By: #### 2 4321-2, , 2776-07 ####[facility] LABORATORYCLIA [id number] [address] STATES [place] CO2 [Moles/Vol] 25 mmol/L Normal 22-30 [facility] Comment on above: Order Comment: Speci meme Type: BLOOD SPECIMENOrdering Facility: [facility] Address: [address] [place] [address] Performed By: #### 2 4321-2, , 2776-07 ####[facility] LABORATORYCLIA [id number] [address] [place] Creatinine [Mass/Vol] 0.84 mg/dL Normal 0.73-1.22 [facility] Comment on above: Order Comment: Speci men Type: BLOOD SPECIMENOrdering Facility: [facility] Address: [address] [place] [address] Performed By: #### 2 4321-2, , 2776-07 ####[facility] LABORATORYCLIA [id number] [address] Creatinine and Glomerular filtration rate.predicted panel (S/P/Bld) 84 mL/min/1.73m??? Normal >=60 [facility] Comment on above: Order Comment: Speci meme Type: BLOOD SPECIMENOrdering Facility: [facility] Address: [address] [place] [address] Result Comment: Franny mated Glomerular Filtration Rate [...] Performed By: #### 2 4321-2, , 2776-07 ####[facility] LABORATORYCLIA [id number] [address] [place] Glucose [Mass/Vol] 121 mg/dL High 74-99 [facility] Comment on above: Order Comment: Speci meme Type: BLOOD SPECIMENOrdering Facility: [facility] Address: [address] [place] [address] Result Comment: The [place] Diabetes Association (ADA) provides guidance for cutoff [...] Standards of Medical Care in Diabetes 2016, [place] [employer]. Diabetes Care. 2016.39(Suppl 1). Performed By: #### 2 4321-2, , 2776-07 ####[facility] LABORATORYCLIA [id number] [place] [address] [place] Potassium [Moles/Vol] 3.8 mmol/L Normal 3.7-5.1 [facility] Comment on above: Order Comment: Speci men Type: BLOOD SPECIMENOrdering Facility: [facility] Address: [address] [place] [address] Performed By: #### 2 432-2, , 2776-07 ####[facility] LABORATORYCLIA [id number] [place] [address] [place] Sodium [Moles/Vol] 140 mmol/L Normal 136-144 [facility] Comment on above: Order Comment: Speci men Type: BLOOD SPECIMENOrdering Facility: [facility] Address: [address] [place] [address] Performed By: #### 2 432-2, , 2776-07 ####[facility] LABORATORYCLIA [id number] [place] [address] [place] Urea nitrogen [Mass/Vol] 35 mg/dL High 9-24 [facility] Comment on above: Order Comment: Speci men Type: BLOOD SPECIMENOrdering Facility: [facility] Address: [address] [place] [address] Performed By: #### 2 432-2, 85735-6, 2777-1 ####[facility] LABORATORYCLIA [id number] [address] CBC panel Auto (Bld)on 06-22 Erythrocyte distribution width (RBC) [Ratio] 13.0 % Normal 11.5-15.0 [facility] Comment on above: Order Comment: Speci men Type: BLOOD SPECIMENOrdering Facility: [facility] Address: [address] [place] [address] Performed By: #### 5 8410-2 ####[facility] LABORATORYCLIA [id number] [address] Hematocrit (Bld) [Volume fraction] 38.2 % Low 39.0-51.0 [facility] Comment on above: Order Comment: Speci men Type: BLOOD SPECIMENOrdering Facility: [facility] Address: [address] [place] [address] Performed By: #### 5 8410-2 ####[facility] LABORATORYCLIA [id number] [address] Hemoglobin (Bld) [Mass/Vol] 13.1 g/dL Normal 13.0-17.0 [facility] Comment on above: Order Comment: Speci men Type: BLOOD SPECIMENOrdering Facility: [facility] Address: [address] [place] [address] Performed By: #### 5 8410-2 ####[facility] LABORATORYCLIA [id number] [address] STATES [facility] MCH (RBC) [Entitic mass] 30.8 pg Normal 26.0-34.0 [facility] Comment on above: Order Comment: Speci men Type: BLOOD SPECIMENOrdering Facility: [facility] Address: [address] [place] [address] Performed By: #### 5 8410-2 ####[facility] LABORATORYCLIA [id number] [address] [place] MCHC (RBC) [Mass/Vol] 34.3 g/dL Normal 30.5-36.0 [facility] Comment on above: Order Comment: Speci men Type: BLOOD SPECIMENOrdering Facility: [facility] Address: [address] [place] [address] Performed By: #### 5 8410-2 ####[facility] LABORATORYCLIA [id number] [address] STATES OF [facility] MCV (RBC) [Entitic vol] 89.7 fL Normal 80.0-100.0 [facility] Comment on above: Order Comment: Speci men Type: BLOOD SPECIMENOrdering Facility: [facility] Address: [address] [place] [address] Performed By: #### 5 8410-2 ####[facility] LABORATORYCLIA [id number] [address] OF [facility] Nucleated RBC (Bld) [#/Vol] 10*3/uL Normal <0.01 [facility] Comment on above: Order Comment: Speci men Type: BLOOD SPECIMENOrdering Facility: [facility] Address: [address] [place] [address] Performed By: #### 5 8410-2 ####[facility] LABORATORYCLIA [id number] [address] OF [place] Platelet mean volume (Bld) [Entitic vol] 10.9 fL Normal 9.0-12.7 [facility] Comment on above: Order Comment: Speci men Type: BLOOD SPECIMENOrdering Facility: [facility] Address: [address] [place] [address] Performed By: #### 5 8410-2 ####[facility] LABORATORYCLIA [id number] [address] OF [place] Platelets (Bld) [#/Vol] 106 10*3/uL Low 150-400 [facility] Comment on above: Order Comment: Speci men Type: BLOOD SPECIMENOrdering Facility: [facility] Address: [address] [place] [address] Result Comment: No c lot detected. Performed By: #### 5 8410-2 ####[facility] LABORATORYCLIA [id number] [place] [address] [place] RBC (Bld) [#/Vol] 4.26 10*6/uL Normal 4.20-6.00 [facility] Comment on above: Order Comment: Speci men Type: BLOOD SPECIMENOrdering Facility: [facility] Address: [address] [place] [address] Performed By: #### 5 8410-2 ####[facility] LABORATORYCLIA [id number] [place] [id number] [facility] WBC (Bld) [#/Vol] 6.20 10*3/uL Normal 3.70-11.00 [facility] Comment on above: Order Comment: Speci men Type: BLOOD SPECIMENOrdering Facility: [facility] Address: [address] [place] [address] Performed By: #### 5 8410-2 ####[facility] LABORATORYCLIA [id number] [place] [id number] [facility] CONSULTon 06-22-2023 CONSULT HNO ID: [id number] Author: Bonifacio Valdez MD Service: Orthopaedic Surgery [...] (Oral) Resp 16 Ht 182.9 cm (6' 0.01) Wt 98 kg (216 lb 0.8 oz) [...] ANION 9 (more content not included)... Normal [facility] CONSULT PROGon 06-22-2023 CONSULT PROG HNO ID: [id number] Author: Nolvia Poole DO Service: General Surgery [...] (Src) 97.5 (Oral) Resp 17 Ht 6' .008 (1.83m) Wt 216 lb 0.8 oz (98.0kg) SpO2 94% BMI 29.30 kg/(m2). O2 Therapy: Room Air, Liters: 2 Temp (24hrs), Av.7 ?C (98.1 ?F), Min:36.4 ?C (97.5 ?F), Max:36.9 ?C (98.4 ?F) Date 06/21/23699 - 06/22/2365806/22/23699 - 06/23/2359 Shift 1583-1345 6029-4033 1052-8815 24 Hour Total 4423-9859 0357-5414 3322-5821 24 Hour Total INTAKE IV 649 999 525 246 Volume (mL) (lactated ringers iv infusion) [...] for today's visit: No results for input(s): BODSITE, CTYPE, PH, PCO2, PO2, BE, HCO3, CO2CT, O2HB, COHB, MHGB, TEMP, PHTC, PCO2T, PO2T, O2AD in the last 72 hours. Recent Labs [...] 6.20 3. (more content not included)... Normal [facility] CONSULT PROG HNO ID: [id number] Author: Syeda Blandon APRN.CUSTODIAL ENGINEER Service: Neurosurgery Author Type: Nurse Practitioner Type: [...] (Oral) Resp 10 Ht 182.9 cm (6' 0.01) Wt 98 kg (216 lb 0.8 oz) SpO2 97% BMI 29.30 kg/m? O2 Therapy: Nasal Cannula IANDO: Date 06/21/23 07 - 06/22/23 0659 06/22/23 07 - 06/23/23 0659 Shift 6294-1388 6959-1132 8657-8182 24 Hour Total 4684-9621 6562-4748 5755-5457 24 Hour Total INTAKE IV 749 749 [...] June 22, 2023 TIME: 7:15 AM Pager: [phone] Normal [facility] CT BRAIN WO IVCONon 06-22-20 CT BRAIN WO IVCON * * *Final Report* * * DATE OF EXAM: Jun 22 2023 5:17AM [facility] 0504 - CT BRAIN WO IVCON / [...] Iterative recon COMPARISON: CT head 06/21/2023. RESULT: Teletypesetter Monitor (topogram) images: No additional findings. Post-operative change: [...] acute subdural hemorrhage. No new intracranial hemorrhage. 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: [facility] Transcribe Date/Time: Jun 22 2023 5:19A Dictated by : RA BLACKMAN MD This examination was interpreted and the report reviewed and electronically signed by: RA BLACKAMN MD on Jun 22 2023 5:25AM EST [id number] Normal [facility] Calcium.ionized [Moles/Vol]o n 06-22-2023 Calcium.ionized (BldV) [Mass/Vol] 1.12 mmol/L Normal 1.08-1.30 [facility] Comment on above: Order Comment: Speci men Type: BLOOD SPECIMENOrdering Facility: [facility] Address: [address] [place] [address] Performed By: #### 1 995-0 ####[facility] LABORATORYCLIA [id number] [place] [id number] [place] Calcium.ionized adjusted to pH 7.4 (Bld) [Moles/Vol] 1.15 mmol/L Normal 1.08-1.30 [facility] Comment on above: Order Comment: Speci men Type: BLOOD SPECIMENOrdering Facility: [facility] Address: [address] [place] [address] Performed By: #### 1 995-0 ####[facility] LABORATORYCLIA [id number] [place] [id number] [place] Magnesium [facility] Magnesium [Mass/Vol] 1.8 mg/dL Normal 1.7-2.3 [facility] Comment on above: Order Comment: Speci men Type: BLOOD SPECIMENOrdering Facility: [facility] Address: [address] [place] [address] Performed By: #### 2 4321-2, , 2776- ####[facility] LABORATORYCLIA [id number] [place] [id number] [place] NURSING PROGon 06-22-2023 NURSING PROG HNO ID: [id number] Author: Sada Rubio RN Service: Nursing Author Type: Registered Nurse Type: Nursing Progress Note Filed: 06/22/2023 11:31 AM Note Text: Transfer Note: PATIENT NAME: Deniz Kumar Patient Location: [place] [address] [address] Room: [place] [address] Called transfer report to LEATHA Galvan on [address]. Will transport patient shortly Normal [facility] Phosphate SerPl-mCncon 06-22 Phosphate [Mass/Vol] 3.2 mg/dL Normal 2.7-4.8 [facility] Comment on above: Order Comment: Speci men Type: BLOOD SPECIMENOrdering Facility: [facility] Address: [address] [place] [address] Performed By: #### 2 4321-2, 64460-1, 277- ####[facility] LABORATORYCLIA [id number] [place] [address] [place] XR ANKLE SPECIFY [...] tibiofibular syndesmotic instability with applied ankle stress 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: [facility] Transcribe Date/Time: Jun 22 2023 4:02P Dictated by : SINAN MATTHEW MD This examination was interpreted and the report reviewed and electronically signed by: SINAN MATTHEW MD on Jun 22 2023 4:08PM EST [id number] Normal [facility] ALLIED HEALTHon 06-21-2023 ALLIED HEALTH HNO ID: [id number] Author: Lise Steiner RT(Taryn) Service: ? Author Type: Technologist Type: Allied [...] Paige(R) June 21, 2023 8:15 PM Normal [facility] Absolute lymphocyte countOrd ered By: Gordon Hill on 06-21-2023 Lymphocytes Auto (Unsp spec) [#/Vol] 0.71 10*3/uL 0.83-4.51 [facility] Basophil percentageOrdered B y: Gordon Hill on 06-21-2023 Basophils/100 WBC (Bld) 0.2 % 0-[address] [facility] Bilirubin [Mass/Vol] 0.90 mg/dL 0.20-1.00 [facility] Comment on above: For patients on eltr ombopag therapy, use of Dimension [place] TBIL is not recommended. Chloride [Moles/Vol] 111 mmol/L 98-107 [facility] Eosinophils/100 WBC (Bld) 0.6 % 0-5 [facility] Glucose [Mass/Vol] 115 mg/dL 74-106 [facility] Comment on above: Fasting Glucose resu lt from 100 to 125 mg/dL suggests IMPAIRED HOMEOSTASIS per A.D.A. criteria. Neutrophils (Bld) [#/Vol] 3.5 10*3/uL 2.0-7.7 [facility] Neutrophils/100 WBC (Bld) 70.2 % 47-70 [facility] Potassium [Moles/Vol] 3.5 mmol/L 3.5-5.1 [facility] Protein [Mass/Vol] 6.1 g/dL 6.4-8.2 [facility] Sodium [Moles/Vol] 142 mmol/L 136-145 [facility] WBC (Bld) [#/Vol] 5.0 10*3/uL 4.4-11.0 [facility] Blood erythrocytes count (nu mber/volume)Ordered By: Gordon Hill on 06-21-2023 RBC (Bld) [#/Vol] 4.99 10*6/uL 4.6-6.2 [facility] Blood hemoglobin measurement (mass/volume)Ordered By: Gordon Hill on 06-21-2023 Hemoglobin (Bld) [Mass/Vol] 15.0 g/dL 13.0-16.5 [facility] Blood lymphocytes/100 leukoc ytesOrdered By: Gordon Hill on 06-21-2023 Lymphocytes/100 WBC (Bld) 14.2 % 19-41 [facility] Blood monocytes/100 leukocyt esOrdered By: Gordon Hill on 06-21-2023 Monocytes/100 WBC (Bld) 14.2 % 0-[address] [facility] Blood platelet mean volumeOr dered By: Gordon Hill on 06-21-2023 Platelet mean volume (Bld) [Entitic vol] 11.0 fL 6.2-12.0 [facility] CBC panel Auto (Bld)on 06-21 Erythrocyte distribution width (RBC) [Ratio] 12.7 % Normal 11.5-15.0 [facility] Comment on above: Order Comment: Speci men Type: BLOOD SPECIMENOrdering Facility: [facility] Address: [address] [place] [address] Performed By: #### 5 8410-2 ####[facility] LABORATORYCLIA [id number] [address] [place] Hematocrit (Bld) [Volume fraction] 45.3 % Normal 39.0-51.0 [facility] Comment on above: Order Comment: Speci men Type: BLOOD SPECIMENOrdering Facility: [facility] Address: [address] [place] [address] Performed By: #### 5 8410-2 ####[facility] LABORATORYCLIA [id number] [place] [address] [place] Hemoglobin (Bld) [Mass/Vol] 15.5 g/dL Normal 13.0-17.0 [facility] Comment on above: Order Comment: Speci men Type: BLOOD SPECIMENOrdering Facility: [facility] Address: [address] [place] [address] Performed By: #### 5 8410-2 ####[facility] LABORATORYCLIA [id number] [place] [address] [place] MCH (RBC) [Entitic mass] 31.0 pg Normal 26.0-34.0 [facility] Comment on above: Order Comment: Speci men Type: BLOOD SPECIMENOrdering Facility: [facility] Address: [address] [place] [address] Performed By: #### 5 8410-2 ####[facility] LABORATORYCLIA [id number] [address] MCHC (RBC) [Mass/Vol] 34.2 g/dL Normal 30.5-36.0 [facility] Comment on above: Order Comment: Speci men Type: BLOOD SPECIMENOrdering Facility: [facility] Address: [address] [place] [address] Performed By: #### 5 8410-2 ####[facility] LABORATORYCLIA [id number] [address] MCV (RBC) [Entitic vol] 90.6 fL Normal 80.0-100.0 [facility] Comment on above: Order Comment: Speci men Type: BLOOD SPECIMENOrdering Facility: [facility] Address: [address] [place] [address] Performed By: #### 5 8410-2 ####[facility] LABORATORYCLIA [id number] [address] OF [facility] Nucleated RBC (Bld) [#/Vol] 10*3/uL Normal <0.01 [facility] Comment on above: Order Comment: Speci men Type: BLOOD SPECIMENOrdering Facility: [facility] Address: [address] [place] [address] Performed By: #### 5 8410-2 ####[facility] LABORATORYCLIA [id number] [address] Platelet mean volume (Bld) [Entitic vol] 10.9 fL Normal 9.0-12.7 [facility] Comment on above: Order Comment: Speci men Type: BLOOD SPECIMENOrdering Facility: [facility] Address: [address] [place] [address] Performed By: #### 5 8410-2 ####[facility] LABORATORYCLIA [id number] [address] OF [place] Platelets (Bld) [#/Vol] 118 10*3/uL Low 150-400 [facility] Comment on above: Order Comment: Speci men Type: BLOOD SPECIMENOrdering Facility: [facility] Address: [address] [place] [address] Result Comment: No c lot detected. Performed By: #### 5 8410-2 ####[facility] LABORATORYCLIA [id number] [address] STATES [place] RBC (Bld) [#/Vol] 5.00 10*6/uL Normal 4.20-6.00 [facility] Comment on above: Order Comment: Speci men Type: BLOOD SPECIMENOrdering Facility: [facility] Address: [address] [place] [address] Performed By: #### 5 8410-2 ####[facility] LABORATORYCLIA [id number] [address] [place] WBC (Bld) [#/Vol] 7.52 10*3/uL Normal 3.70-11.00 [facility] Comment on above: Order Comment: Speci men Type: BLOOD SPECIMENOrdering Facility: [facility] Address: [address] [place] [address] Performed By: #### 5 8410-2 ####[facility] LABORATORYCLIA [id number] [address] CONFIRM BLOOD TYPEon 023 ABO O Normal [facility] Comment on above: Order Comment: Speci men Type: BLOOD SPECIMENOrdering Facility: [facility] Address: [address] [place] [address] Performed By: #### C ONABO ####[facility] BLOOD BANKCLIA [id number] [address] [place] Rh Nom (Bld) Positive Normal [facility] Comment on above: Order Comment: Speci men Type: BLOOD SPECIMENOrdering Facility: [facility] Address: [address] [place] [address] Performed By: #### C ONABO ####[facility] BLOOD BANKCLIA [id number] [place] [address] [place] CONSULTon 06-21-2023 CONSULT HNO ID: [id number] Author: Juan Durán DO Service: General Surgery [...] (Src) 98.4 (Oral) Resp 19 Ht 6' 0 (1.83m) Wt 208 lb (94.3kg) SpO2 95% [...] course: 06/21: (more content not included)... Normal [facility] CONSULT HNO ID: [id number] Author: Lynda Holman PA-C Service: Neurosurgery Author Type: Physician Protective Signal Superintendent Type: Consults Filed: 06/21/2023 5:14 PM Note [...] to help this. Patient was hiking near [place] and stated his legs felt weaker after prolonged hiking, but still had quite a ways to go back to his car. Patient reports he is not sure how exactly he fell, but landed on the ground, and had a worker at hiking trail help him up. Was transferred to [place] emergency department, where CT scan showed a [...] PRN desmopressi (more content not included)... Normal [facility] CT BRAIN WO IVCONon 06-21-[address] BRAIN WO IVCON * * *Final Report* * * DATE OF EXAM: Jun 21 2023 8:19PM [facility] 0504 - CT BRAIN WO IVCON / [...] 06/21/2023 at 1:35 PM. Outside study. RESULT: Teletypesetter Monitor (topogram) images: No additional findings. Post-operative change: [...] in the interval. No significant mass effect. 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: [employer] Transcribe Date/Time: Jun 21 2023 8:53P Dictated by : LINDA LOMBARDO MD This examination was interpreted and the report reviewed and electronically signed by: LINDA LOMBARDO MD on Jun 21 2023 9:02PM EST [id number] Normal [facility] Comprehensive metabolic 2000 panelon 06-21-2023 Albumin [Mass/Vol] 3.4 g/dL Low 3.9-4.9 [facility] Comment on above: Order Comment: Speci men Type: BLOOD SPECIMENOrdering Facility: [facility] Address: [address] [place] [address] Performed By: #### 3 -3, ####[facility] LABORATORYCLIA [id number] [place], [place] [id number] [place] [address] [place] ALP [Catalytic activity/Vol] 66 U/L Normal 38-113 [facility] Comment on above: Order Comment: Speci men Type: BLOOD SPECIMENOrdering Facility: [facility] Address: [address] [place] [address] Performed By: #### 3 3, ####[facility] LABORATORYCLIA [id number] [address] [place] ALT With P-5'-P [Catalytic activity/Vol] 15 U/L Normal 10-54 [facility] Comment on above: Order Comment: Speci men Type: BLOOD SPECIMENOrdering Facility: [facility] Address: [address] [place] [address] Performed By: #### 3 -3, 85651-3 ####[facility] LABORATORYCLIA [id number] [address] [place] Anion gap [Moles/Vol] 9 mmol/L Normal 9-18 [facility] Comment on above: Order Comment: Speci men Type: BLOOD SPECIMENOrdering Facility: [facility] Address: [address] [place] [address] Performed By: #### 3 3, 43095-8 ####[facility] LABORATORYCLIA [id number] [place] [address] [place] AST With P-5'-P [Catalytic activity/Vol] 23 U/L Normal 14-40 [facility] Comment on above: Order Comment: Speci men Type: BLOOD SPECIMENOrdering Facility: [facility] Address: [address] [place] [address] Performed By: #### 3 -3, 51500-8 ####[facility] LABORATORYCLIA [id number] [place] [address] [place] Bilirubin [Mass/Vol] 0.8 mg/dL Normal 0.2-1.3 [facility] Comment on above: Order Comment: Speci men Type: BLOOD SPECIMENOrdering Facility: [facility] Address: [address] [place] [address] Performed By: #### 3 040-3, 43794-9 ####[facility] LABORATORYCLIA [id number] [place] [address] [place] Calcium [Mass/Vol] 8.6 mg/dL Normal 8.5-10.2 [facility] Comment on above: Order Comment: Speci men Type: BLOOD SPECIMENOrdering Facility: [facility] Address: [address] [place] [address] Performed By: #### 3 040-3, 45901-7 ####[facility] LABORATORYCLIA [id number] [place] [address] [place] Chloride [Moles/Vol] 109 mmol/L High 97-105 [facility] Comment on above: Order Comment: Speci men Type: BLOOD SPECIMENOrdering Facility: [facility] Address: [address] [place] [address] Performed By: #### 3 040-3, 53187-9 ####[facility] LABORATORYCLIA [id number] [place] [address] [place] CO2 [Moles/Vol] 23 mmol/L Normal 22-30 [facility] Comment on above: Order Comment: Speci men Type: BLOOD SPECIMENOrdering Facility: [facility] Address: [address] [place] [address] Performed By: #### 3 040-3, 97411-5 ####[facility] LABORATORYCLIA [id number] [place] [address] [place] Creatinine [Mass/Vol] 0.74 mg/dL Normal 0.73-1.22 [facility] Comment on above: Order Comment: Speci men Type: BLOOD SPECIMENOrdering Facility: [facility] Address: [address] [place] [address] Performed By: #### 3 040-3, 86703-0 ####[facility] HOSPITALIA [id number] [place] [id number] [facility] OF [place] Creatinine and Glomerular filtration rate.predicted panel (S/P/Bld) 88 mL/min/1.73m??? Normal >=60 [facility] Comment on above: Order Comment: Manuel valentine Type: BLOOD SPECIMENOrdering Facility: [facility] Address: [address] [place] [address] Result Comment: Franny mated Glomerular Filtration Rate [...] actual GFR. Performed By: #### 3 040-3, 11057-9 ####[facility] HOSPITALIA [id number] [place] [address] [place] Glucose [Mass/Vol] 112 mg/dL High 74-99 [facility] Comment on above: Order Comment: Manuel valentine Type: BLOOD SPECIMENOrdering Facility: [facility] Address: [address] [place] [address] Result Comment: The [place] Diabetes Association (ADA) provides guidance for cutoff [...] Standards of Medical Care in Diabetes 2016, [place] Diabetes Association. Diabetes Care. 2016.39(Suppl 1). Performed By: #### 3 040-3, 46683-4 ####[facility] LABORATORYCLIA [id number] [place] [address] [place] Potassium [Moles/Vol] 3.6 mmol/L Low 3.7-5.1 [facility] Comment on above: Order Comment: Speci men Type: BLOOD SPECIMENOrdering Facility: [facility] Address: [address] [place] [address] Performed By: #### 3 040-3, 60403-6 ####[facility] LABORATORYCLIA [id number] [place] [address] [place] Protein [Mass/Vol] 5.6 g/dL Low 6.3-8.0 [facility] Comment on above: Order Comment: Speci men Type: BLOOD SPECIMENOrdering Facility: [facility] Address: [address] [place] [address] Performed By: #### 3 040-3, 98581-9 ####[facility] LABORATORYCLIA [id number] [address] STATES OF [facility] Sodium [Moles/Vol] 141 mmol/L Normal 136-144 [facility] Comment on above: Order Comment: Speci men Type: BLOOD SPECIMENOrdering Facility: [facility] Address: [address] [place] [address] Performed By: #### 3 040-3, 44371-6 ####[facility] LABORATORYCLIA [id number] [place] [id number] [place] Urea nitrogen [Mass/Vol] 24 mg/dL Normal 9-24 [facility] Comment on above: Order Comment: Speci men Type: BLOOD SPECIMENOrdering Facility: [facility] Address: [address] [place] [address] Performed By: #### 3 040-3, 56316-3 ####[facility] LABORATORYCLIA [id number] [place] [id number] [place] Determination of erythrocyte mean corpuscular volume (MCV)Ordered By: Gordon Hill on 06-21-2023 MCV (RBC) [Entitic vol] 90.2 fL 80-[address] [facility] ED NOTEon 06-21-2023 ED NOTE HNO ID: [id number] Author: German Jorgensen MD Service: ? Author Type: Physician Type: ED Notes Filed: 06/21/2023 6:12 PM Note Text: Pt presenting as trauma transfer from [place] for SDH. The pt reports possibly having a syncopal event. He reports feeling normal at this time. He reports only AC is 81mg ASA that he had this am. He was given labetalol at [place] for elevated BP with improvement there, per [...] or prevent deterioration of the following condition(s): ANALYTICS CONSULTANT impairment, which the patient had and/or has a high probability of suddenly developing. The patient received DDAVP, keppra and Consultation by NSGY and trauma during the time that critical care was provided.I discussed the plan of care with the RESIDENT and agree with the findings documented. Critical care time excludes separately billed procedures. MD German Vicente MD [facility] ED NOTE HNO ID: [id number] Author: Walter Reyes, [place] Service: ? Author Type: Respiratory Therapy Instructor and Mobile Home Installer Type: ED Notes Filed: 06/21/2023 4:06 PM Note Text: Bed: 09-ED Expected date: 06/21/23 Expected time: 3:48 PM Means of arrival: [facility] Comments: [facility] [place] [facility] Normal [facility] ED PROV NOTEon 06-21-2023 ED PROV NOTE HNO ID: [id number] Author: En Soria MD Service: Critical Care [...] PAGER/CONTACT #: EN SORIA 06/21/23 1850 Normal [facility] ED PROV NOTE HNO ID: [id number] Author: German Jorgensen MD Service: Emergency Medicine Author Type: Physician Type: ED Provider Notes Filed: 06/26/2023 9:38 AM Note Text: ED Provider Note Patient Name: Deniz Kumar : 1935 SERVICE DATE: 06/21/23 History Patient presents with: Functional Transfers: Transfer from [place]. Patient fell today while walking, + head [...] Capillary Refill: (more content not included)... Normal [facility] EKGon 06-21-2023 Electrocardiogram Ventricular Rate : 7 3 BPM Atrial Rate : 73 BPM P-R Interval : 144 ms QRS Duration : 72 ms Q-T Interval : 408 ms QTC Calculation(Bazett) : 449 ms Calculated P Macon : 105 degrees Calculated R Macon : -27 degrees Calculated T Macon : -7 degrees NORMAL SINUS RHYTHM INFERIOR INFARCT , AGE UNDETERMINED LATERAL INJURY PATTERN ACUTE MS / STEMI ABNORMAL ECG NO PREVIOUS ECGS AVAILABLE Confirmed by MD TOUSSAINT THOMAS ([id number]) on 07/07/2023 6:57:05 PM NAME : DENIZ KUMAR PID : [id number] : 1935 Gender : Male Race : ORD : Procedure Date : Jun 21 2023 16:41:11 Edit Date : Jul 07 2023 18:57:08 Diagnosis: NORMAL SINUS RHYTHM INFERIOR INFARCT , AGE UNDETERMINED LATERAL INJURY PATTERN ACUTE MS / STEMI ABNORMAL ECG NO PREVIOUS ECGS AVAILABLE Confirmed by MD TOUSSAINT THOMAS ([id number]) on 07/07/2023 6:57:05 PM Test Reason : Location : 4 : [facility] 9 Overread By : MD TOUSSAINT THOMAS Edited By : MD TOUSSAINT THOMAS Referred By : , Acquired by : TONEY REYNOSO Normal [facility] Ethanol SerPl-mCncon 023 Ethanol [Mass/Vol] mg/dL Normal <11 [facility] Comment on above: Order Comment: Speci men Type: BLOOD SPECIMENOrdering Facility: [facility] Address: [address] [place] [address] Performed By: #### 5 643-2 ####[facility] LABORATORYCLIA [id number] [place] [address] [place] HISTORY PHYSICALon HISTORY PHYSICAL HNO ID: [id number] Author: Mariposa Cervantes MD Service: General Surgery [...] vaccine, unspecified formulation 03/31/2012 03/31/2013 novel influenza (N1C7-22) vaccine, PF 06/29/2009 pneumococcal (PCV13) vaccine, 13 [...] bilaterally, t (more content not included)... Normal [facility] Hematocrit Auto (Bld) [Volum e fraction]Ordered By: Gordon Hill on 06-21-2023 Hematocrit (Bld) [Volume fraction] 45.0 % 40-54 [facility] INR in Blood by Coagulation assayOrdered By: Gordon Hill on 06-21-2023 INR Coag (Bld) [Relative time] 1.1 {INR} [facility] Laboratory - Chemistry and C hemistry - challengeOrdered By: Gordon Hill on 06-21-2023 ALP [Catalytic activity/Vol] 69 U/L 45-117 [facility] ALT [Catalytic activity/Vol] 20 U/L 16-61 [facility] CK [Catalytic activity/Vol] 75 U/L 39-308 [facility] CO2 [Moles/Vol] 25.0 mmol/L 21.0-32.0 [facility] Globulin (S) [Mass/Vol] 2.8 g/dL 2.2-4.[address] [facility] Urea nitrogen/Creatinine [Mass ratio] 40.6 mg/mg 10-20 [facility] Laboratory - CoagulationOrde red By: Gordon Hill on 06-21-2023 aPTT Coag (Bld) [Time] 25.2 s 24.1-36.2 [facility] PT Coag (PPP) [Time] 14.0 s 11.7-14.9 [facility] Laboratory - Hematology and Cell countsOrdered By: Gordon Hill on 06-21-2023 Erythrocyte distribution width (RBC) [Entitic vol] 41.4 fL 35.1-43.9 [facility] Erythrocyte distribution width (RBC) [Ratio] 12.7 % 11.6-14.6 [facility] Immature granulocytes/100 WBC (Bld) 0.600 % 0.0-0.9 [facility] Comment on above: IG% - Immature Granu locytes (promyelocytes, myelocytes and metamyelocytes) > 1% indicates that a LEFT SHIFT is Present. MCH (RBC) [Entitic mass] 30.1 pg 27.0-32.0 [facility] Nucleated RBC/100 WBC (Bld) [Ratio] 0 % 0-5 [facility] Lipase SerPl-cCncon 06-21-20 23 Lipase [Catalytic activity/Vol] 13 U/L Low 16-61 [facility] Comment on above: Order Comment: Speci men Type: BLOOD SPECIMENOrdering Facility: [facility] Address: [address] [place] [address] Performed By: #### 3 040-3, 75481-4 ####[facility] LABORATORYCLIA [id number] [address] [place] MCHC Auto (RBC) [Mass/Vol]Or dered By: Gordon Hill on 06-21-2023 MCHC (RBC) [Mass/Vol] 33.3 g/dL 32-36 [facility] No Panel InformationOrdered By: Gordon Hill on 06-21-2023 Estimated Creatinine Clearance Calc 70.52 ml/min [facility] Estimated GFR (MDRD) Amer 115 mL/min >60 [facility] Comment on above: GFR Calc Estimated GFR (MDRD) Non-Af Amer 95 mL/min >60 [facility] Comment on above: Non- GFR Calc PT panel Coag (PPP)on 2022 INR Coag (PPP) [Relative time] 1.1 {INR} Normal 0.9-1.3 [facility] Comment on above: Order Comment: Manuel valentine Type: BLOOD SPECIMENOrdering Facility: [facility] Address: [address] [place], [place] [id number] Result Comment: Christie min K Antagonist (VKA) Therapeutic Range: INR 2 to 3 (Target INR of 2.5) Note: For patients treated with VKA drugs, such as warfarin, the [place] [employer] 2012 Guideline recommends [...] Chest 2012, 141:7S-47S Meagan RA, et al. [employer] 2017, 70: 252-289 Performed By: #### 3 4528-0, 98382-2 ####[facility] LABORATORYCLIA [id number] [place] [address] [place] PT Coag (PPP) [Time] 11.3 s Normal 9.7-13.0 [facility] Comment on above: Order Comment: Mynori men Type: BLOOD SPECIMENOrdering Facility: [facility] Address: [address] [place] [address] Performed By: #### 3 4528-0, 70913-0 ####[facility] LABORATORYCLIA [id number] [place] [address] [place] [facility] Platelets bldOrdered By: Vimal Hill on 06-21-2023 Platelets (Bld) [#/Vol] 109 10*3/uL 150-450 [facility] STAPH AUREUS PCRon 3 S. aureus and MRSA panel GM+probe (Nose) Normal Negative [facility] Comment on above: Order Comment: Speci men Type: SWAB OF INTERNAL NOSEOrdering Facility: [facility] Address: [address] [place] [address] Result Comment: Nega tive for Staphylococcus aureus by PCR. Negative for MRSA by PCR Performed By: #### S APCR ####[facility] LABORATORYCLIA [id number] [address] OF [facility] Serum or plasma albumin sharon urement (mass/volume)Ordered By: Gordon Hill on 06-21-2023 Albumin [Mass/Vol] 3.3 g/dL 3.2-5.0 [facility] Serum or plasma albumin/glob ulin mass ratioOrdered By: Gordon Hill on 06-21-2023 Albumin/Globulin [Mass ratio] 1.2 {ratio} 0.9-2.4 [facility] Serum or plasma calcium sharon urement (mass/volume)Ordered By: Gordon Hill on 06-21-2023 Calcium [Mass/Vol] 8.6 mg/dL 8.5-10.1 [facility] Serum or plasma creatinine m easurement (mass/volume)Ordered By: Gordon Hill on 06-21-2023 Creatinine [Mass/Vol] 0.81 mg/dL 0.70-1.30 [facility] Comment on above: The validity of the calculated GFR & GFRAA in patients over 70 years has not been determined. Clinical correlation is essential. Serum or plasma urea nitroge n measurement (mass/volume)Ordered By: Gordon Hill on 06-21-2023 Urea nitrogen [Mass/Vol] 33 mg/dL 7-18 [facility] TYPE + SCREENon 06-21-2023 ABO O Normal [facility] Comment on above: Order Comment: Speci men Type: BLOOD SPECIMEN [facility] Address: [address] [place] [address] Performed By: #### T SCR #### [facility] BLOOD BANK CLIA [id number] [address] HISTORICAL AB SCR STATUS Negative Normal [facility] Comment on above: Order Comment: Speci men Type: BLOOD SPECIMEN [facility] Address: [address] [place] [address] Performed By: #### T SCR #### [facility] BLOOD [facility] CLIA [id number] [address] [place] Rh Nom (Bld) Positive Normal [facility] Comment on above: Order Comment: Speci men Type: BLOOD SPECIMEN [facility] Address: [address] [place] [address] Performed By: #### T SCR #### [facility] CLIA [id number] [address] [place] TYPE AND SCREEN EXPIRATION 06/24/2023 23:59 Normal [facility] Comment on above: Order Comment: Speci men Type: BLOOD SPECIMEN [facility]: [facility] Address: [address] [place] [address] Performed By: #### T SCR #### [facility] BLOOD [facility] CLIA [id number] [address] [place] Thin prep Papanicolaou smear with manual screeningOrdered By: Gordon Hill on 06-21-2023 Thin prep Papanicolaou smear with manual screening 18 U/L 15-37 [facility] Thin prep Papanicolaou smear with manual screening 6 5-15 [facility] XR ANKLE 3V AP/LAT/OBL LTon 06-21-2023 XR [...] involvement of the tibiofibular syndesmosis (Wong C). 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 IMPRESSION: No acute radiographic abnormality. 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 IMPRESSION: No acute radiographic abnormality. 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: [employer] Transcribe Date/Time: Jun 21 2023 4:49P Dictated by : WILLARD BRASHER MD This examination was interpreted and the report reviewed and electronically signed by: WILLARD BRASHER MD on Jun 21 2023 4:49PM EST [id number] Normal [facility] aPTT PPPon 06-21-2023 aPTT Coag (PPP) [Time] 26.3 s Normal 23.0-32.4 [facility] Comment on above: Order Comment: Speci men Type: BLOOD SPECIMENOrdering Facility: [facility] Address: [address] [place] [address] Performed By: #### 3 4528-0, 81544-5 ####[facility] LABORATORYCLIA [id number] [place] [address] [place] UA DIP, URINE (POC)on 2022 BILIRUBIN UA (POCT) Negative Negative [facility] CLARITY UA (POCT) Clear [facility] COLOR UA (POCT) Yellow [facility] GLUCOSE UA (POCT) Negative Negative mg/dL [facility] HEMOGLOBIN/BLOOD UA (POCT) Negative Negative [facility] KETONE UA (POCT) Negative Negative mg/dL [facility] LEUKOCYTES UA (POCT) Negative Negative [facility] NITRITE UA (POCT) Negative Negative [facility] PH UA (POCT) 5.5 4.5 - 8.0 [facility] Protein Ql (U) 30 mg/dL Abnormal Negative mg/dL [facility] SPECIFIC GRAVITY UA (POCT) 1.025 1.005 - 1.030 [facility] UROBILINOGEN UA (POCT) 0.2 E.U./dL Gema l E.U./dL [facility] UA DIP, URINE (POC)on 2022 BILIRUBIN UA (POCT) Negative Negative [facility] CLARITY UA (POCT) Clear [facility] COLOR UA (POCT) Yellow [facility] [facility] GLUCOSE UA (POCT) Negative Negative mg/dL [facility] [place] [facility] HEMOGLOBIN/BLOOD UA (POCT) Negative Negative [facility] [place] [facility] KETONE UA (POCT) Negative Negative mg/dL [facility] [place] [facility] LEUKOCYTES UA (POCT) Negative Negative [facility] NITRITE UA (POCT) Negative Negative [facility] PH UA (POCT) 5.5 4.5 - 8.0 [facility] [place] [facility] Protein Ql (U) Negative Negative mg/dL [facility] [place] [facility] SPECIFIC GRAVITY UA (POCT) 1.025 1.005 - 1.030 [facility] [place] [facility] UROBILINOGEN UA (POCT) 0.2 E.U./dL Gema l E.U./dL [facility] [place] [facility] EMERGENCY DEPARTMENT REPORTo n 11-04-2018 EMERGENCY [place]PARTMENT [place] [address] HEALTH INFORMATION MANAGEMENT EMERGENCY DEPARTMENT REPORT Patient: DENIZ KUMAR KEVIN J M.D. [id number] M Status: DEP ER ED [...] did have a conversation with the tele-neurologist service station manager at the main campus of the [facility] [place] [facility]. We agreed at this point the [...] and he is in agreement. 11/13/18 0453 GEMRAN JOYNER M.D. cc: GERMAN JOYNER M.D. << Signature on File>> Reported By: GERMAN JOYNER M.D. Signed By: GERMAN JOYNER M.D. Tests performed at: [place] [address] Normal [facility] BMPon 10-29-2018 Anion gap molar conc 15.7 mmol/L Normal 15-22 [facility] Comment on above: Performed By: #### L 301.0120, L100.0010 #### [facility] [address] [place] [address] 60099 Calcium mass conc 9.1 mg/dL Normal 8.8-10.2 [facility] Comment on above: Performed By: #### L 301.0120, L100.0010 #### [facility] [address] [place] [address] 45331 Chloride molar conc 102 mmol/L Normal 98-107 [facility] Comment on above: Performed By: #### L 301.0120, L100.0010 #### ML [facility] [address] [place] [address] 11258 CO2 molar conc 27 mmol/L Normal 22-29 [facility] Comment on above: Performed By: #### L 301.0120, L100.0010 #### [facility] [address] [place] [address] 74550 Creatinine mass conc 1.03 mg/dL Normal 0.70-1.20 Count includes the [facility] Comment on above: Performed By: #### L 301.0120, L100.0010 #### [facility] [address] [place] [address] 26817 eGFR if AFR WILMER > 60 ml/min/1.73m2 Normal [facility] Comment on above: Result Comment: [...] Performed By: #### L 301.0120, L100.0010 #### - LABORATORY [address] [place] [address] 30561 eGFR nonAFR Wilmer > 60 ml/Min/1.73m2 Normal [facility] Comment on above: Performed By: #### L 301.0120, L100.0010 #### - LABORATORY [address] [place] [address] 15712 Glucose mass conc 109 mg/dL Normal 82-115 [facility] Comment on above: Performed By: #### L 301.0120, L100.0010 #### [facility] [address] [place] [address] 69150 Potassium molar conc 3.7 mmol/L Normal 3.5-5.0 Count includes the [facility] Comment on above: Performed By: #### L 301.0120, L100.0010 #### [facility] [address] [place] [address] 28449 Sodium molar conc 141 mmol/L Normal 135-145 [facility] Comment on above: Performed By: #### L 301.0120, L100.0010 #### ML - LABORATORY [address] [place] [address] 32733 Urea nitrogen mass conc 31 mg/dL High 8-23 U [facility] Comment on above: Performed By: #### L 301.0120, L100.0010 #### ML - LABORATORY [address] [place] [address] 45484 CBCon 10-29-2018 Basophils #/vol (Bld) 0.00 x10(3) Normal 0.00-0.10 [facility] Comment on above: Performed By: #### L 200.0010 #### ML [facility] [address] [place] [address] 22970 Basophils/100 WBC (Bld) 0.4 % Normal 0.0-1.0 [facility] Comment on above: Performed By: #### L 200.0010 #### ML [facility] [address] [place] [address] 99803 Eosinophils #/vol (Bld) 0.00 x10(3) Normal 0.00-0.54 [facility] Comment on above: Performed By: #### L 200.0010 #### ML [facility] [address] [place] [address] 89930 Eosinophils/100 WBC (Bld) 0.9 % Normal 0.5-4.9 [facility] Comment on above: Performed By: #### L 200.0010 #### ML [facility] [address] [place] [address] 74872 Erythrocyte distribution width Ratio (RBC) 13.3 % Normal 12.5-15.7 [facility] Comment on above: Performed By: #### L 200.0010 #### ML [facility] [address] [place] [address] 88299 Hematocrit Volume Fraction (Bld) 45.6 % Normal 36.0-48.0 [facility] Comment on above: Performed By: #### L 200.0010 #### ML [facility] [address] [place] [address] 61656 Hemoglobin mass conc (Bld) 15.4 g/dL Normal 12.0-16.0 [facility] Comment on above: Performed By: #### L 200.0010 #### ML - LABORATORY [address] [place] [address] 80917 Lymphocytes #/vol (Bld) 1.20 x10(3) Normal 1.00-3.50 [facility] Comment on above: Performed By: #### L 200.0010 #### ML - LABORATORY [address] [place] [address] 66310 Lymphocytes/100 WBC (Bld) 25.9 % Normal 16.0-48.0 [facility] Comment on above: Performed By: #### L 200.0010 #### ML - LABORATORY [address] [place] [address] 50434 MCH Entitic mass (RBC) 30.7 pg Normal 28.5-32.9 [facility] Comment on above: Performed By: #### L 200.0010 #### ML - LABORATORY [address] [place] [address] 96590 MCHC mass conc (RBC) 33.8 g/dL Normal 33.0-36.0 Count includes the [facility] Comment on above: Performed By: #### L 200.0010 #### ML - LABORATORY [address] [place] [address] 35513 MCV Entitic volume (RBC) 90.8 fL Normal 80.0-99.0 [facility] Comment on above: Performed By: #### L 200.0010 #### ML - LABORATORY [address] [place] [address] 83052 Monocytes #/vol (Bld) 0.50 x10(3) Normal 0.30-0.80 [facility] Comment on above: Performed By: #### L 200.0010 #### ML - LABORATORY [address] [place] [address] 15236 Monocytes/100 WBC (Bld) 11.3 % High 4.3-11.2 [facility] Comment on above: Performed By: #### L 200.0010 #### ML - LABORATORY [address] [place] [address] 85173 Neutrophils #/vol (Bld) 2.90 x10(3) Normal 1.40-6.50 [facility] Comment on above: Performed By: #### L 200.0010 #### ML - LABORATORY [address] [place] [address] 98419 Neutrophils/100 WBC (Bld) 61.5 % Normal 45.0-73.0 [facility] Comment on above: Performed By: #### L 200.0010 #### ML - LAB[facility]ATORY [address] [place] [address] 08907 Platelet mean volume Entitic volume (Bld) 8.3 fL Normal 7.5-9.5 [facility] Comment on above: Performed By: #### L 200.0010 #### ML - LABORATORY [address] [place] [address] 18625 Platelets #/vol (Bld) 133 X10(3) Low 150-450 [facility] Comment on above: Performed By: #### L 200.0010 #### ML - LABORATORY [address] [place] [address] 18021 RBC #/vol (Bld) 5.02 x10(6) High 3.30-5.00 [facility] Comment on above: Performed By: #### L 200.0010 #### ML - LABORATORY [address] [place] [address] 63206 WBC #/vol (Bld) 4.8 x10(3) Normal 4.5-10.0 [facility] Comment on above: Performed By: #### L 200.0010 #### ML - LABORATORY [address] [place] [address] ANGIO HEAD W/WO CONTRASTo n 10-29-2018 CT ANGIO HEAD W/WO CONTRAST [address] [address] Name: DENIZ KUMAR Phys: GERMAN JOYNER M.D. : 36 Age: 83 Sex: M Acct: [id number] Loc: ED Exam Date: 10/29/18 Status: DEP ER Radiology No.: [id number] Unit Number: [id number] Exam # Type/Exam [id number] CT / CT ANGIO HEAD W/WO CONTRAST [...] Professional interpretation provided by [facility], [place] on Healthcare IT60. Thank you for this referral. < > Reported By: ALEJANDRO RICHARDSON M.D. Signed In NovaPro By: ALEJANDRO RICHARDSON M.D. << Signature on File>> Reported By: ALEJANDRO RICHARDSON M.D. Signed By: ALEJANDRO RICHARDSON M.D. Tests performed at: [address] [address] Normal [facility] CT ANGIO NECK W/WO CONTRASTo n 10-29-2018 CT ANGIO NECK W/WO CONTRAST [address] [address] Name: DENIZ KUMAR Phys: GERMAN JOYNER M.D. : 36 Age: 83 Sex: M Acct: [id number] Loc: ED Exam Date: 10/29/18 Status: DEP ER Radiology No.: [id number] Unit Number: [id number] Exam # Type/Exam [id number] CT / CT ANGIO NECK W/WO CONTRAST [...] Professional interpretation provided by [facility], [place] on Teamie-PC-60. Thank you for this referral. < > Reported By: ALEJANDRO RICHARDSON M.D. Signed In NovaPro By: ALEJANDRO RICHARDSON M.D. << Signature on File>> Reported By: ALEJANDRO RICHARDSON M.D. Signed By: ALEJANDRO RICHARDSON M.D. Tests performed at: [address] [address] Normal [facility] CT BRAIN WITHOUT CONTRAST- C TBon 10-29-2018 CT BRAIN WITHOUT CONTRAST- CTB [address] [address] Name: DENIZ KUMAR Phys: GERMAN JOYNER M.D. : 36 Age: 83 Sex: M Acct: [id number] Loc: ED Exam Date: 10/29/18 Status: DEP ER Radiology No.: [id number] Unit Number: [id number] Exam # Type/Exam [id number] CT / CT BRAIN WITHOUT CONTRAST- CTB [...] Professional interpretation provided by [facility], [place] on RAC-PC-66. Thank you for this referral. < > Reported By: KATHY RUIZ D.O. Signed In NovaPro By: KATHY RUIZ D.O. << Signature on File>> Reported By: KATHY RUIZ D.O. Signed By: KATHY RUIZ D.O. Tests performed at: [address] [address] Normal [facility] GLUCOSE FSon 10-29-2018 Glucose mass conc 93 mg/dL Normal 70-110 [facility] Comment on above: Performed By: #### L 100.0070 #### [facility] [address] [place] [address] 08640 PROGRESSon 10-29-2018 Protein mass conc HNO ID: [id number] Author: Jacquie Agosto Service: ? Author Type: Physician Type: Progress Notes Filed: 10/29/2018 9:55 PM Note Text: TELESTROKE DOCUMENTATION Name: Deniz Kumar : 1935 Site: [facility] Dr[facility] Joyner Last Known Well (Date/Time): 10/29/18 0730 Neurologist Evaluation (Date/Time): 10/29/18 0865 Chief Complaint: left sided weakness and dysarthria [...] and management Thank you for contacting the [facility] [place] [facility]. I appreciate the opportunity for allowing me to participate in Deniz Kumar's care. Please feel free to contact me and/or the [facility] at any time if you have any further questions or need additional assistance. Jacquie Agosto MD October 29, 2018 9:46 PM Normal [facility] PTon 10-29-2018 INR Coag RelTime (PPP) 1.1 {INR} Normal [facility] Comment on above: Result Comment: CO UMADIN [...] systemic embolism) 2.0-3.0 AMI (to prevent recurrent MS) 2.5-3.5 Valvular heart disease 2.0-3.0 Atrial fibrillation 2.0-3.0 Mechanical prosthetic valves (high risk) 2.5-3.5 Bileaflet mechanical valve in aortic position 2.0-3.0 Presence of Lupus Anticoagulant or Antiphospholipid Antibodies 2.5-3.5 PANIC VALUE: GREATER THAN OR EQUAL TO 4.5 Performed By: #### L 200.1642, L200.1602 #### ML - LABORATORY [address] [place] [address] 60591 Prothrombin time (PT) Coag time (PPP) 11.5 s Normal 9.4-12.5 [facility] Comment on above: Performed By: #### L 200.1642, L200.1602 #### ML - LABORATORY [address] [place] [address] 90816 PTTon 10-29-2018 aPTT Coag time (Bld) 35.9 s Normal 25.1-36.5 Count includes the [facility] Comment on above: Result Comment: Hepa rin Protocol Therapeutic Range = 54.0-90.0 secs Performed By: #### L 200.1642, L200.1602 #### ML - LABORATORY [address] [place] [address] 06984 TROPONIN Ton 10-29-2018 Troponin T.cardiac mass conc ug/L Normal 0-0.010 [facility] Comment on above: Performed By: #### L 301.0120, L100.0010 #### [facility] [address] [address] XR ANKLE GENERAL 3V AP/LAT/O BL LEFT [facility] [place] [facility] Vital Signs Date Time Vital Sign Value Performing Clinician Facility 11-30-2024 15:33-0400 Diastolic blood pressure 89 mm[Hg] Dr. Vdaim Deras MD Work Phone: 3(936)612-366378 [place] [address] 11-30-2024 15:33-0400 Heart rate 61 /min Dr. Vadim Deras MD Work Phone: 2(830)679-368051 [place] [address] 11-30-2024 15:33-0400 Systolic blood pressure 169 mm[Hg] Dr. Vadim Deras MD Work Phone: 6(287)980-891251 [place] [address] 11-30-2024 14:13-0400 Body height 182.[address] Vadim Deras MD Work Phone: 9(715)662-082651 [place] [address] 11-30-2024 14:13-0400 Body mass index (BMI) [Ratio] 28.5 kg/m2 Dr. Vadim Deras MD Work Phone: 2(795)129-047251 [place] [address] 11-30-2024 14:13-0400 Body temperature 98.1 [degF] Dr. Vadim Deras MD Work Phone: 7(199)692-825051 [place] [address] 11-30-2024 14:13-0400 Body weight 95.[address] Vadim Deras MD Work Phone: 1(795)277-953978 [place] [address] 11-30-2024 14:13-0400 Respiratory rate 18 /min Dr. Vadim Deras MD Work Phone: 9(051)228-355351 [place] [address] 11-30-2024 14:13-0400 SaO2% (BldA) [Mass fraction] 99 % Dr. Vadim Deras MD Work Phone: 0(082)164-009851 [place] [address] 09-04-2024 08:09-0500 Body mass index (BMI) [Ratio] 29.39 kg/m2 Bonifacio Ledbetter Jr., MD Work Phone: 6(300)296-969550 [place] [address] 09-04-2024 08:09-0500 Body weight 98.29 kg Bonifacio Ledbetter Jr., MD Work Phone: [facility] [place] [facility] 09-04-2024 08:09-0500 Heart rate 57 /min Bonifacio Ledbetter Jr., MD Work Phone: [facility] [place] [facility] 09-04-2024 08:09-0500 Respiratory rate 18 /min Bonifacio Ledbetter Jr., MD Work Phone: [facility] [place] [facility] 09-04-2024 08:09-0500 SaO2% (BldA) [Mass fraction] 97 % Bonifacio Ledbetter Jr., MD Work Phone: [facility] [place] [facility] 06-26-2024 10:13-0500 Body mass index (BMI) [Ratio] 29.36 kg/m2 Bonifacio Ledbetter Jr., MD Work Phone: [facility] [place] [facility] 06-26-2024 10:13-0500 Body weight 98.2 kg Bonifacio Ledbetter Jr., MD Work Phone: [facility] [place] [facility] 06-26-2024 10:13-0500 Diastolic blood pressure 85 mm[Hg] Bonifacio Ledbetter Jr., MD Work Phone: [facility] [place] [facility] 06-26-2024 10:13-0500 Heart rate 68 /min Bonifacio Ledbetter Jr., MD Work Phone: [facility] [place] [facility] 06-26-2024 10:13-0500 SaO2% (BldA) [Mass fraction] 97 % Bonifacio Ledbetter Jr., MD Work Phone: [facility] [place] [facility] 06-26-2024 10:13-0500 Systolic blood pressure 132 mm[Hg] Bonifacio Ledbetter Jr., MD Work Phone: [facility] [place] [facility] 03-13-2024 09:31-0400 Diastolic blood pressure 90 mm[Hg] Bonifacio Ledbetter Jr., MD Work Phone: [facility] [place] [facility] 03-13-2024 09:31-0400 Systolic blood pressure 145 mm[Hg] Bonifacio Ledbetter Jr., MD Work Phone: [facility] [place] [facility] 03-13-2024 09:25-0400 Body mass index (BMI) [Ratio] 29.38 kg/m2 Bonifacio Ledbetter Jr., MD Work Phone: [facility] [place] [facility] 03-13-2024 09:25-0400 Body weight 98.25 kg Bonifacio Ledbetter Jr., MD Work Phone: [facility] [place] [facility] 03-13-2024 09:25-0400 Heart rate 62 /min Bonifacio Ledbetter Jr., MD Work Phone: [facility] [place] [facility] 03-13-2024 09:25-0400 SaO2% (BldA) [Mass fraction] 96 % Bonifacio Ledbetter Jr., MD Work Phone: [facility] [place] [facility] 02-21-2024 09:28-0400 Diastolic blood pressure 73 mm[Hg] Vadim Deras MD Work Phone: [facility] [place] [facility] Comment on above: BP Kvng average 02-21-2024 09:28-0400 Heart rate 79 /min Vadim Deras MD Work Phone: [facility] [place] [facility] 02-21-2024 09:28-0400 Systolic blood pressure 112 mm[Hg] Vadim Deras MD Work Phone: [facility] [place] [facility] Comment on above: BP Kvng average 02-21-2024 09:09-0400 Body height 182.9 cm Vadim Deras MD Work Phone: [facility] [place] [facility] 02-21-2024 09:09-0400 Body mass index (BMI) [Ratio] 28.91 kg/m2 Vadim Deras MD Work Phone: [facility] [place] [facility] 02-21-2024 09:09-0400 Body weight 96.7 kg Vadim Deras MD Work Phone: [facility] [place] [facility] 02-21-2024 09:09-0400 Respiratory rate 16 /min Vadim Deras MD Work Phone: [facility] [place] [facility] 02-21-2024 09:09-0400 SaO2% (BldA) [Mass fraction] 98 % Vadim Deras MD Work Phone: [facility] [place] [facility] 11-21-2023 10:12-0400 Diastolic blood pressure 87 mm[Hg] Vadim Deras MD Work Phone: [facility] [place] [facility] 11-21-2023 10:12-0400 Heart rate 60 /min Vadim Deras MD Work Phone: [facility] [place] [facility] 11-21-2023 10:12-0400 Systolic blood pressure 149 mm[Hg] Vadim Deras MD Work Phone: [facility] [place] [facility] 11-21-2023 10:00-0400 Body mass index (BMI) [Ratio] 29.97 kg/m2 Vadim Deras MD Work Phone: [facility] [place] [facility] 11-21-2023 10:00-0400 Body temperature 98.4 [degF] Vadim Deras MD Work Phone: [facility] [place] [facility] 11-21-2023 10:00-0400 Body weight 100.25 kg Vadim Deras MD Work Phone: [facility] [place] [facility] 10-14-2023 12:03-0400 Body temperature 98.6 [degF] Vadim Deras MD Work Phone: [facility] [place] [facility] 10-14-2023 12:03-0400 Body weight 98.88 kg Vadim Deras MD Work Phone: [facility] [place] [facility] 10-14-2023 12:03-0400 Diastolic blood pressure 96 mm[Hg] Vadim Deras MD Work Phone: [facility] [place] [facility] 10-14-2023 12:03-0400 Heart rate 76 /min Vadim Deras MD Work Phone: [facility] [place] [facility] 10-14-2023 12:03-0400 Respiratory rate 20 /min Vadim Deras MD Work Phone: [facility] [place] [facility] 10-14-2023 12:03-0400 Systolic blood pressure 150 mm[Hg] Vadim Deras MD Work Phone: [facility] [place] [facility] 08-23-2023 08:22-0500 Diastolic blood pressure 82 mm[Hg] Vadim Deras MD Work Phone: [facility] [place] [facility] 08-23-2023 08:22-0500 Systolic blood pressure 120 mm[Hg] Vadim Deras MD Work Phone: [facility] [place] [facility] 08-23-2023 08:12-0500 Body temperature 96.49 [degF] Vadim Deras MD Work Phone: [facility] [place] [facility] 08-23-2023 08:12-0500 Body weight 97.98 kg Vadim Deras MD Work Phone: [facility] [place] [facility] 08-23-2023 08:12-0500 Heart rate 69 /min Vadim Deras MD Work Phone: [facility] [place] [facility] 08-23-2023 08:12-0500 Respiratory rate 16 /min Vadim Deras MD Work Phone: [facility] [place] [facility] 08-23-2023 08:12-0500 SaO2% (BldA) [Mass fraction] 97 % Vadim Deras MD Work Phone: [facility] [place] [facility] 08-06-2023 12:54-0500 Body height 182.9 cm Bonifacio Valdez MD Work Phone: [facility] [place] [facility] 08-06-2023 12:54-0500 Body weight 90.72 kg Bonifacio Valdez MD Work Phone: [facility] [place] [facility] 08-06-2023 12:54-0500 Respiratory rate 20 /min Bonifacio Valdez MD Work Phone: [facility] [place] [facility] 07-18-2023 11:04-0500 Body temperature 97.7 [degF] Dr. Vadim Deras Work Phone: [facility] 07-18-2023 11:04-0500 Diastolic blood pressure 95 mm[Hg] Dr. Vadim Deras Work Phone: [facility] 07-18-2023 11:04-0500 Heart rate 77 /min Dr. Vadim Deras Work Phone: [facility] 07-18-2023 11:04-0500 Respiratory rate 16 /min Dr. Vadim Deras Work Phone: [facility] 07-18-2023 11:04-0500 SaO2% (BldA) [Mass fraction] 94 % Dr. Vadim Deras Work Phone: [facility] 07-18-2023 11:04-0500 Systolic blood pressure 140 mm[Hg] Dr. Vadim Deras Work Phone: [facility] 07-16-2023 17:20-0500 Body mass index (BMI) [Ratio] 28.8 kg/m2 Dr. Vadim Deras Work Phone: [facility] 07-16-2023 17:20-0500 Body weight 96.[address] Vadim Deras Work Phone: [facility] 07-10-2023 10:16-0500 Body height 182.[address] Vadim Deras Work Phone: [facility] 06-21-2023 15:03-0500 Diastolic blood pressure 101 mm[Hg] [facility] 06-21-2023 15:03-0500 Heart rate 72 /min [facility] 06-21-2023 15:03-0500 Respiratory rate 16 /min [facility] 06-21-2023 15:03-0500 SaO2% (BldA) [Mass fraction] 95 % [facility] 06-21-2023 15:03-0500 Systolic blood pressure 150 mm[Hg] [facility] 06-21-2023 12:44-0500 Body height 182.88 cm [facility] 06-21-2023 12:44-0500 Body mass index (BMI) [Ratio] 32.2 kg/m2 [facility] 06-21-2023 12:44-0500 Body temperature 96.6 [degF] [facility] 06-21-2023 12:44-0500 Body weight 107.9 kg [facility] 02-28-2023 14:20-0400 Body temperature 98.1 [degF] Radha [place] PA-C Work Phone: [facility] [place] [facility] 02-28-2023 14:20-0400 Diastolic blood pressure 84 mm[Hg] Radha Jose Carlos PA-C Work Phone: [facility] [place] [facility] 02-28-2023 14:20-0400 Heart rate 84 /min Radha [place] PA-C Work Phone: [facility] [place] [facility] 02-28-2023 14:20-0400 SaO2% (BldA) [Mass fraction] 95 % Radha [place] PA-C Work Phone: [facility] [place] [facility] 02-28-2023 14:20-0400 Systolic blood pressure 136 mm[Hg] Radha Jose Carlos PA-C Work Phone: [facility] [place] [facility] 02-15-2023 08:08-0400 Body weight 97.07 kg Vadim Deras MD Work Phone: [facility] [place] [facility] 02-15-2023 08:08-0400 Diastolic blood pressure 82 mm[Hg] Vadim Deras MD Work Phone: [facility] [place] [facility] 02-15-2023 08:08-0400 Heart rate 85 /min Vadim Deras MD Work Phone: [facility] [place] [facility] 02-15-2023 08:08-0400 Respiratory rate 16 /min Vadim Deras MD Work Phone: [facility] [place] [facility] 02-15-2023 08:08-0400 SaO2% (BldA) [Mass fraction] 96 % Vadim Deras MD Work Phone: [facility] [place] [facility] 02-15-2023 08:08-0400 Systolic blood pressure 128 mm[Hg] Vadim Deras MD Work Phone: [facility] [place] [facility] 01-25-2023 14:58-0400 Body height 182.9 cm Su Ware MD Work Phone: [facility] [place] [facility] 01-25-2023 14:58-0400 Body temperature 98.01 [degF] Su Ware MD Work Phone: [facility] [place] [facility] 01-25-2023 14:58-0400 Body weight 99.07 kg Su Ware MD Work Phone: [facility] [place] [facility] 01-25-2023 14:58-0400 Diastolic blood pressure 80 mm[Hg] Su Ware MD Work Phone: [facility] [place] [facility] 01-25-2023 14:58-0400 Heart rate 91 /min Su Ware MD Work Phone: [facility] [place] [facility] 01-25-2023 14:58-0400 SaO2% (BldA) [Mass fraction] 96 % Su Ware MD Work Phone: [facility] [place] [facility] 01-25-2023 14:58-0400 Systolic blood pressure 132 mm[Hg] Su Ware MD Work Phone: [facility] [place] [facility] 01-04-2023 08:10-0400 Body height 182.9 cm Lynda Meyers PA-C Work Phone: [facility] [place] [facility] 01-04-2023 08:10-0400 Body temperature 97.81 [degF] Lynda Meyers PA-C Work Phone: [facility] [place] [facility] 01-04-2023 08:10-0400 Body weight 98.88 kg Lynda Meyers PA-C Work Phone: [facility] [place] [facility] 01-04-2023 08:10-0400 Diastolic blood pressure 88 mm[Hg] Lynda Meyers PA-C Work Phone: [facility] [place] [facility] 01-04-2023 08:10-0400 Heart rate 80 /min Lynda Meyers PA-C Work Phone: [facility] [place] [facility] 01-04-2023 08:10-0400 Respiratory rate 12 /min Lynda Meyers PA-C Work Phone: [facility] [place] [facility] 01-04-2023 08:10-0400 SaO2% (BldA) [Mass fraction] 95 % Lynda Meyers PA-C Work Phone: [facility] [place] [facility] 01-04-2023 08:10-0400 Systolic blood pressure 138 mm[Hg] Lynda Meyers PA-C Work Phone: [facility] [place] [facility] 09-25-2022 13:26-0400 Body temperature 98.01 [degF] Hyun Moriah SENIOR INTERNAL AUDITOR.CUSTODIAL ENGINEER Work Phone: [facility] [place] [facility] 09-25-2022 13:26-0400 Body weight 100.25 kg Hyun Moriah SENIOR INTERNAL AUDITOR.CUSTODIAL ENGINEER Work Phone: [facility] [place] [facility] 09-25-2022 13:26-0400 Diastolic blood pressure 84 mm[Hg] Hyun Moriah SENIOR INTERNAL AUDITOR.CUSTODIAL ENGINEER Work Phone: [facility] [place] [facility] 09-25-2022 13:26-0400 Heart rate 88 /min Hyun Moriah SENIOR INTERNAL AUDITOR.CUSTODIAL ENGINEER Work Phone: [facility] [place] [facility] 09-25-2022 13:26-0400 Respiratory rate 18 /min Hyun Moriah SENIOR INTERNAL AUDITOR.CUSTODIAL ENGINEER Work Phone: [facility] [place] [facility] 09-25-2022 13:26-0400 SaO2% (BldA) [Mass fraction] 96 % Hyun Moriah SENIOR INTERNAL AUDITOR.CUSTODIAL ENGINEER Work Phone: [facility] [place] [facility] 09-25-2022 13:26-0400 Systolic blood pressure 128 mm[Hg] Hyun Moriah SENIOR INTERNAL AUDITOR.CUSTODIAL ENGINEER Work Phone: [facility] 08-31-2022 08:13-0500 Body height 182.9 cm Lynda Meyers PA-C Work Phone: [facility] 08-31-2022 08:13-0500 Body temperature 98.49 [degF] Lynda Meyers PA-C Work Phone: [facility] 08-31-2022 08:13-0500 Body weight 98.88 kg Lynda Meyers PA-C Work Phone: [facility] 08-31-2022 08:13-0500 Diastolic blood pressure 90 mm[Hg] Lynda Meyers PA-C Work Phone: [facility] 08-31-2022 08:13-0500 Heart rate 80 /min Lynda Meyers PA-C Work Phone: [facility] 08-31-2022 08:13-0500 Respiratory rate 14 /min Lynda Meyers PA-C Work Phone: [facility] 08-31-2022 08:13-0500 SaO2% (BldA) [Mass fraction] 95 % Lynda Meyers PA-C Work Phone: [facility] 08-31-2022 08:13-0500 Systolic blood pressure 134 mm[Hg] Lynda Meyers PA-C Work Phone: [facility] 08-16-2022 08:08-0500 Body height 182.9 cm Vadim Deras MD Work Phone: [facility] 08-16-2022 08:08-0500 Body temperature 97.2 [degF] Vadim Deras MD Work Phone: [facility] 08-16-2022 08:08-0500 Body weight 97.52 kg Vadim Deras MD Work Phone: [facility] 08-16-2022 08:08-0500 Diastolic blood pressure 72 mm[Hg] Vadim Deras MD Work Phone: [facility] 08-16-2022 08:08-0500 Heart rate 72 /min Vadim Deras MD Work Phone: [facility] 08-16-2022 08:08-0500 Respiratory rate 12 /min Vadim Deras MD Work Phone: [facility] 08-16-2022 08:08-0500 Systolic blood pressure 118 mm[Hg] Vadim Deras MD Work Phone: [facility] 05-04-2022 08:28-0400 Body temperature 97.59 [degF] Susan Athy PA-C Work Phone: [facility] 05-04-2022 08:28-0400 Body weight 96.89 kg Susan Athy PA-C Work Phone: [facility] 05-04-2022 08:28-0400 Diastolic blood pressure 78 mm[Hg] Susan Athy PA-C Work Phone: [facility] 05-04-2022 08:28-0400 Heart rate 72 /min Susan Glenny PA-C Work Phone: [facility] 05-04-2022 08:28-0400 Respiratory rate 16 /min Susanmadelin Elizabethy PA-C Work Phone: [facility] 05-04-2022 08:28-0400 SaO2% (BldA) [Mass fraction] 98 % Susanmadelin Elizabethy PA-C Work Phone: [facility] 05-04-2022 08:28-0400 Systolic blood pressure 126 mm[Hg] Susan Elizabethy PA-C Work Phone: [facility] 03-05-2022 09:25-0400 Body temperature 97.2 [degF] Haylie Chin APRN.CUSTODIAL ENGINEER Work Phone: [facility] 03-05-2022 09:25-0400 Body weight 97.7 kg Haylie Chin APRN.CUSTODIAL ENGINEER Work Phone: [facility] 03-05-2022 09:25-0400 Diastolic blood pressure 90 mm[Hg] Haylie Chin APRN.CUSTODIAL ENGINEER Work Phone: [facility] 03-05-2022 09:25-0400 Heart rate 92 /min Haylie Chin APRN.CUSTODIAL ENGINEER Work Phone: [facility] 03-05-2022 09:25-0400 Respiratory rate 18 /min Haylie Chin APRN.CUSTODIAL ENGINEER Work Phone: [facility] 03-05-2022 09:25-0400 SaO2% (BldA) [Mass fraction] 94 % Haylie Chin APRN.CUSTODIAL ENGINEER Work Phone: [facility] 03-05-2022 09:25-0400 Systolic blood pressure 132 mm[Hg] Haylie Chin APRN.CUSTODIAL ENGINEER Work Phone: [facility] 02-08-2022 08:55-0400 Body temperature 97 [degF] Vadim Deras MD Work Phone: [facility] 02-08-2022 08:55-0400 Body weight 94.98 kg Vadim Deras MD Work Phone: [facility] 02-08-2022 08:55-0400 Diastolic blood pressure 68 mm[Hg] Vadim Deras MD Work Phone: [facility] 02-08-2022 08:55-0400 Heart rate 68 /min Vadim Deras MD Work Phone: [facility] 02-08-2022 08:55-0400 Respiratory rate 16 /min Vadim Deras MD Work Phone: [facility] 02-08-2022 08:55-0400 Systolic blood pressure 114 mm[Hg] Vadim Deras MD Work Phone: [facility] 12-25-2021 14:35-0400 Body height 182.9 cm Su Ware MD Work Phone: [facility] 12-25-2021 14:35-0400 Body temperature 98.29 [degF] Su Ware MD Work Phone: [facility] 12-25-2021 14:35-0400 Body weight 96.62 kg Su Ware MD Work Phone: [facility] 12-25-2021 14:35-0400 Diastolic blood pressure 58 mm[Hg] Su Ware MD Work Phone: [facility] 12-25-2021 14:35-0400 Heart rate 91 /min Su Ware MD Work Phone: [facility] 12-25-2021 14:35-0400 SaO2% (BldA) [Mass fraction] 94 % Su Ware MD Work Phone: [facility] 12-25-2021 14:35-0400 Systolic blood pressure 106 mm[Hg] Su Ware MD Work Phone: [facility] 09-29-2021 13:02-0400 Body height 182.9 cm Su Ware MD Work Phone: [facility] 09-29-2021 13:02-0400 Body temperature 98.29 [degF] Su Ware MD Work Phone: [facility] 09-29-2021 13:02-0400 Body weight 97.52 kg Su Ware MD Work Phone: [facility] 09-29-2021 13:02-0400 Diastolic blood pressure 68 mm[Hg] Su Ware MD Work Phone: [facility] 09-29-2021 13:02-0400 Heart rate 81 /min uS Ware MD Work Phone: [facility] 09-29-2021 13:02-0400 SaO2% (BldA) [Mass fraction] 96 % Su Ware MD Work Phone: [facility] 09-29-2021 13:02-0400 Systolic blood pressure 136 mm[Hg] Su Ware MD Work Phone: [facility] Encounters Encounter Date Encounter Type Care Provider Facility Start: 02-12-2025 ambulatory Nishi Gudla OLS Facili ty:[facility] Start: 12-23-2024 ambulatory Nishi Gudla OLS Facili ty:[facility] Start: 12-09-2024 End: 12-09-2024 Telephone encounter Demetrio Gill MD Work Phone: Urology Start: 11-30-2024 End: 11-30-2024 Emergency department patient visit Dr. Vadim Deras MD Work Phone: -Emergency Department Work Phone: Start: 11-27-2024 ambulatory Nishi Gudla OLS Facili ty:[facility] Start: 11-27-[address] Nishi Romero MD -[facility] Work Phone: Start: 10-12-2024 End: 10-12-2024 ambulatory BONIFACIO LEDBETTER JR Facility:[facility] Start: 10-12-2024 End: 10-12-2024 Patient encounter procedure Demetrio Gill MD Work Phone: Urology Comment on above: Overactive bladder ( Primary Dx); Benign prostatic hyperplasia with urinary frequency; Nocturia Start: 10-05-2024 End: 10-05-[address] Nishi Romero MD -[facility] Work Phone: Start: 10-05-2024 End: 10-05-2024 ambulatory Nishi LITTLEJOHN Facility:[facility] Start: 09-28-2024 End: 09-28-2024 Telephone encounter Vadim Deras MD Work Phone: [address] [place] [address] Comment on above: Patient Update Start: 09-11-2024 [...] 09-04-2024 ambulatory VADIM DERAS Facility:[facility] Start: 08-26-2024 End: 08-26-2024 Telephone encounter Vadim Deras MD Work Phone: [facility] [place] Comment on above: Forms Start: 07-13-2024 ambulatory Nishi Romero ANNETTA Facili ty:[facility] Start: 06-26-2024 End: 06-26-2024 Patient encounter procedure Bonifacio Ledbetter MD Work Phone: Neurology Comment on above: Gait abnormality (Pr imary Dx); Leg weakness, bilateral; Speech disturbance, unspecified type; Ataxia; History of subdural hematoma; Spinal stenosis in cervical region; Spinal stenosis of lumbar region without neurogenic claudication Start: 06-26-2024 End: 06-26-2024 ambulatory BONIFACIO LEDBETTER JR Facility:[facility] Start: 06-15-2024 ambulatory Nishi LITTLEJOHN Facili ty:[facility] Start: 06-08-2024 End: 06-08-2024 ambulatory Nishi LITTLEJOHN Facility:[facility] Start: 06-01-2024 End: 06-01-2024 Telephone encounter Vadim Deras MD Work Phone: [facility] [place] Start: 06-01-2024 End: 06-01-2024 ambulatory Nishi LITTLEJOHN Facility:[facility] Start: 05-19-2024 End: 05-20-2024 Telephone encounter Bonifacio Ledbetter MD Neurology Comment on above: Patient Question Start: 05-19-2024 ambulatory Preston Chi Ton Facility:[facility] Start: 05-19-2024 End: 05-30-2024 Evaluation and management of inpatient Preston Chi Ton Facility:[facility] Start: 05-15-2024 End: 05-19-2024 ambulatory Kendall Merlymayeri Facility:[facility] Start: 05-15-2024 ambulatory Naghumbertoademaribel Everardo Fa cility:[facility] Start: 05-15-2024 ambulatory Jon Arce Fac ility:[facility] Start: 04-27-2024 End: 04-27-2024 Telephone encounter Vadim Deras MD Work Phone: [facility] [place] Comment on above: Patient Question Start: 04-13-2024 End: 07-20-2024 Telephone encounter Bonifacio Ledbetter MD Work Phone: Neurology Comment on above: Results Start: 04-12-2024 End: 04-12-2024 Telephone encounter Bonifacio Ledbetter MD Work Phone: Sleep Start: 04-10-2024 End: 04-10-2024 ambulatory BONIFACIO LEDBETTER JR Facility:[facility] Start: 04-10-2024 End: 04-10-2024 Subsequent hospital visit by physician Mri Radio Counts Include [facility] Wstr (I-Stat/1.5t) Work Phone: Radiology Comment on above: Ataxia [R27.0] Start: 04-02-2024 End: 04-02-2024 ambulatory Vadim Deras MD Work Phone: [facility] Comment on above: Allied Health Visit (Medication [...] ambulatory BONIFACIO LEDBETTER JR Facility:[facility] Start: 02-25-2024 End: 02-26-2024 Telephone encounter Vadim Deras MD Work Phone: [facility] [place] Comment on above: Medication Problem Start: 02-21-2024 End: 02-21-2024 ambulatory VADIM DERAS Facility:[facility] Start: 02-21-2024 End: 02-21-2024 Patient encounter procedure Vadim Deras MD Work Phone: [facility] [place] Comment on above: Medicare annual well ness visit, subsequent (Primary Dx); Screening for depression; Encounter for screening examination for other mental health and behavioral disorders; History of TIA (transient ischemic attack); Gait abnormality; Essential hypertension; Hyperlipidemia, unspecified hyperlipidemia type; Benign prostatic hyperplasia with urinary obstruction; Urgency of urination; Edema of leg Start: 02-14-2024 End: 02-14-2024 ambulatory VADIM DERAS Facility:[facility] Start: 02-13-2024 Telephone encounter Neurology Provid er Neurology Comment on above: Opened In Error Orders Start: 01-30-2024 Refill Vadim gruber MD Work Phone: [facility] [place] Comment on above: Refill Request Start: 11-21-2023 End: 11-21-2023 ambulatory VADIM DERAS Facility:[facility] Start: 11-21-2023 End: 11-21-2023 Patient encounter procedure Vadim Deras MD Work Phone: [facility] [place] Comment on above: Leg weakness, bilate ral (Primary Dx); Gait abnormality; Hyperlipidemia, unspecified hyperlipidemia type; Essential hypertension; Urgency of urination; Benign prostatic hyperplasia with urinary obstruction Start: 11-14-2023 End: 11-14-2023 ambulatory VADIM DERAS Facility:[facility] Start: 10-14-2023 End: 10-14-2023 Patient encounter procedure Vadim Deras MD Work Phone: [facility] [place] Comment on above: Gait abnormality (Pr imary Dx); Leg weakness, bilateral; Essential hypertension Start: 09-09-2023 Refill Vadim gruber MD Work Phone: [facility] [place] Comment on above: Refill Request Start: 08-23-2023 End: 08-23-2023 Patient encounter procedure Vadim Deras MD Work Phone: [facility] [place] Comment on above: Essential hypertensi on (Primary Dx); History of TIA (transient ischemic attack); Gait abnormality; Hyperlipidemia, unspecified hyperlipidemia type; Thrombocytopenia, unspecified (HCC); Hypoalbuminemia Start: 08-15-2023 Telephone encounter Bonifacio Valdez MD Work Phone: [facility] Comment on above: Orders Start: 08-13-2023 Telephone encounter Vadim escamilla MD Work Phone: [facility] [place] Comment on above: home health calling Start: 08-06-2023 End: 08-06-2023 Patient encounter procedure Bonifacio Valdez MD Work Phone: [facility] Comment on above: Closed bimalleolar f racture of left ankle with routine healing, subsequent encounter (Primary Dx) Start: 08-06-2023 End: 08-06-2023 ambulatory BONIFACIO VALDEZ Facility:[facility] Start: 08-02-2023 End: 08-02-2023 ambulatory NICOLÁS JUNIOR Facility:[facility] Start: 08-02-2023 End: 08-02-2023 Subsequent hospital visit by physician [facility] [employer] [facility] Comment on above: SAH (subarachnoid he morrhage) ([facility]) [I60.9] Start: 07-29-2023 End: 07-29-[address] Vadim Deras Work Phone: [facility] Work Phone: Start: 07-29-2023 End: 07-29-[address] Vadim Deras Work Phone: [facility] Start: 07-22-2023 End: 07-22-[address] Vadim Deras Work Phone: [facility] Work Phone: Start: 07-22-2023 End: 07-22-[address] Vadim Deras Work Phone: [facility] Start: 07-22-[address] Vadim Deras Work Phone: [facility] Start: 07-19-2023 End: 07-19-[address] Vadim Deras Work Phone: [facility] Start: 07-16-2023 End: 07-16-2023 ambulatory NICOLÁS JUNIOR Facility:[facility] Start: 07-09-2023 End: 07-09-2023 ambulatory BONIFACIO VALDEZ Facility:[facility] Start: 06-28-2023 Non-patient / Non-visit Dr. Sunshine Deras Work Phone: [facility] Work Phone: Start: 06-27-2023 End: 07-18-2023 Evaluation and management of inpatient Dr. Vadim Deras Work Phone: [facility] Start: 06-21-2023 End: 06-27-2023 Evaluation and management of inpatient VADIM DERAS Facility:[facility] Start: 06-21-2023 End: 06-21-2023 Emergency department patient visit [facility]gency [facility] Work Phone: Start: 04-01-2023 Refill Vadim gruber MD Work Phone: [facility] [place] Comment on above: Refill Request Start: 02-28-2023 End: 02-28-2023 Patient encounter procedure Radha Branch PA-C Work Phone: General Surgery Comment on above: S/P hernia repair (P rimary Dx) Start: 02-15-2023 End: 02-15-2023 Patient encounter procedure Vadim Deras MD Work Phone: [facility] [place] Comment on above: Benign prostatic hyp erplasia with urinary obstruction (Primary Dx); Essential hypertension; Hyperlipidemia, unspecified hyperlipidemia type; Hypoalbuminemia; Thrombocytopenia, unspecified (HCC) Start: 01-25-2023 End: 01-25-2023 Patient encounter procedure Su Ware MD Work Phone: General Surgery Comment on above: Recurrent umbilical hernia (Primary Dx) Start: 01-04-2023 End: 01-04-2023 Patient encounter procedure Lynda PRITCHARD-C Work Phone: Urology Comment on above: OAB (overactive blad moo) (Primary Dx); Benign prostatic hyperplasia with urinary obstruction Start: 09-25-2022 End: 09-25-2022 Patient encounter procedure Hyun Major APRN.CNP Work Phone: [facility] Comment on above: Eye problem (Primary Dx) Start: 08-31-2022 End: 08-31-2022 Patient encounter procedure Lynda PRITCHARD-C Work Phone: Urology Comment on above: OAB (overactive blad moo) (Primary Dx); Erectile dysfunction, unspecified erectile dysfunction type; Benign prostatic hyperplasia with urinary obstruction Start: 08-16-2022 End: 08-16-2022 Patient encounter procedure Vadim Deras MD Work Phone: [facility] [place] Comment on above: Medicare annual well ness visit, subsequent (Primary Dx); Thrombocytopenia, unspecified (HCC); Essential hypertension; Benign prostatic hyperplasia with urinary obstruction; Hyperlipidemia, unspecified hyperlipidemia type; Erectile dysfunction, unspecified erectile dysfunction type Start: 08-03-2022 Refill Vadim gruber MD Work Phone: [facility] [place] Comment on above: Refill Request Start: 05-05-2022 Telephone encounter Valdez Garcia greta MICHELLE.CUSTODIAL ENGINEER Work Phone: [facility] Comment on above: Results Start: 05-04-2022 End: 05-04-2022 Patient encounter procedure Susan Taryn Corado PA-C Work Phone: [facility] Comment on above: Exposure to COVID-19 virus (Primary Dx) Start: 03-05-2022 End: 03-05-2022 Patient encounter procedure Haylie Giuseppe MICHELLE.CUSTODIAL ENGINEER Work Phone: [facility] Comment on above: Skin infection (Prim betzy Dx) Start: 02-08-2022 End: 02-08-2022 Patient encounter procedure Vadim Deras MD Work Phone: [facility] [place] Comment on above: Myalgia (Primary Dx) ; Need for vaccination; Essential hypertension; Hyperlipidemia, unspecified hyperlipidemia type Start: 01-11-2022 Refill Vadim gruber MD Work Phone: [facility] [place] Comment on above: Refill Request Start: 12-25-2021 [...] head/brain w/o co ntrast material Rosanne Flannery SENIOR INTERNAL AUDITOR.CUSTODIAL ENGINEER Work Phone: Start: 07-16-[address] Vadim Deras Work Phone: Start: 07-03-[address] Katiana Deras Work Phone: Start: 06-21-2023 Antibody screen BONIFACIO VALDEZ Comment on above: Order Comment: Speci men Type: BLOOD SPECIMEN Ordering Facility: [facility] Address: [address] [place] [address] Performed By: #### T SCR #### [facility] BLOOD BANK CLIA [id number] [address] [place] [address] [facility] Start: 06-21-2023 CT cervical spine wi thout contrast Start: 06-21-2023 CT of head without contrast Start: 01-04-2023 Urnls dip stick/tabl et rgnt auto w/o microscopy [employer] PA-C Work Phone: Start: 08-31-2022 Urnls dip stick/tabl et rgnt auto w/o microscopy [employer] PA-C Work Phone: Start: 10-29-2018 Electrocardiogram Plan of Treatment Date Care Activity Detail Author Start: 06-21-2033 Urine microalbumin profile DTaP,Tdap,Td Vaccine (2 - Td or Tdap) [facility] Start: 02-13-2027 Diabetes Screening Diabetes Screenin [facility] Start: 11-13-2026 Diabetes Screening Diabetes Screenin g [facility] Start: 08-16-2026 Diabetes Screening Diabetes Screenin g [facility] Start: 06-26-2026 Diabetes Screening Diabetes Screenin g [facility] Start: 02-08-2026 DIABETES SCREEN DIABETES SCREEN [facility] Start: 02-08-2026 Diabetes Screening Diabetes Screenin g [facility] Start: 08-09-2025 DIABETES SCREEN DIABETES SCREEN [facility] Start: 02-20-2025 Anxiety Screening Anxiety Screening [facility] Start: 02-20-2025 Depression Screening Depression Scre ening [facility] Start: 02-01-2025 DIABETES SCREEN DIABETES SCREEN [facility] Start: 01-18-2025 End: 01-18-2025 Patient encounter procedure 01/18/2025 10:45 AM EDT Office Visit Urology [address] [place] [address] [place] [address] [place] [address] Return in about 3 months (around 01/11/2025). Urology Comment on above: Return in about 3 mo nths (around 01/11/2025). Start: 11-30-2024 End: 11-30-2024 [facility] Start: 10-12-2024 End: 10-12-2024 Patient encounter procedure 10/12/2024 10:45 AM EDT Office Visit Urology [address] [place] [address] [place] [address] [place], [place] [id number] B[facility] Urology Comment on above: BPH Start: 09-24-2024 Covid-19 Vaccine ( season) Covid-19 Vaccine () [facility] Start: 09-04-2024 End: 09-04-2024 Patient encounter procedure 09/04/2024 8:00 AM EST Office Visit Neurology [address] [place] [address] Bonifacio Ledbetter Jr., MD [address] [place], [place] [id number] est gait abn, BLE weakness, speech, ataxia, spinal stenosis, f/u 4-8 wks per [facility], 60 min slot, [facility] 06/26/24 Neurology Comment on above: est gait abn, BLE we akness, speech, ataxia, spinal stenosis, f/u 4-8 wks per [facility], 60 min slot, enrique 06/26/24 Start: 08-24-2024 End: 08-24-2024 Patient encounter procedure 08/24/2024 2:00 PM EST Office Visit [facility] [place] [address] [place] [id number] Vadim Deras MD [address] [place], [place] [id number] 6 month follow up [facility] [place] Comment on above: 6 month follow up Start: 08-07-2024 DIABETES SCREEN DIABETES SCREEN [facility] Start: 07-01-2024 Advance Directive Discussion Advance Directive Discussion [facility] Start: 07-01-2024 Medicare Advantage Annual Wellness Visit Medicare Advantage Annual Wellness Visit [facility] Start: 06-26-2024 End: 06-26-2024 Patient encounter procedure Neurology Comment on above: follow up after MRI follow up after MRI, 03/13 [facility] StaceyManohar- MRI *3 ordered (done) Start: 04-10-2024 End: 04-10-2024 Patient encounter procedure Radiology Comment on above: Spinal stenosis of l umbar region without neurogenic claudication [M48.061] Tremor [R25.1]; Spin al stenosis in cervical region [M48.02]; Spinal stenosis of cervical region [M48.02] Ataxia [R27.0] Start: 03-13-2024 End: 03-13-2024 Patient encounter procedure 03/13/2024 9:20 AM EDT Office Visit Neurology [address] [place], [place] [id number] Bonifacio Ledbetter Jr., MD [address] [id number] Gait abnormality [R26.9]; Leg weakness, bilateral [R29.898] Neurology Comment on above: Gait abnormality [R2 6.9]; Leg weakness, bilateral [R29.898] Start: 03-01-2024 Covid-19 Vaccine ( season) Covid-19 Vaccine () [facility] Start: 03-01-2024 Influenza vaccination Influenza Vacc ine (#1) [facility] Start: 02-21-2024 End: 02-21-2024 Patient encounter procedure 02/21/2024 9:20 AM EDT Office Visit [facility] [place] [address] [place], [place] [phone] Vadim Deras MD [address] [place], [place] [phone] Annual Medicare w/3 month follow-up [facility] [place] Comment on above: Annual Medicare w/3 month follow-up Start: 02-13-2024 End: 05-14-2024 Basic metabolic 2000 panel - Serum or Plasma BASIC METABOLIC PANEL Lab Routine Essential hypertension Expected: 02/13/2024, Expires: 05/14/2024 [facility] Comment on above: Expected: 02/13/2024 , Expires: 05/14/2024 Start: 02-13-2024 End: 05-14-2024 CBC panel - Blood by Automated count COMPLETE BLOOD COUNT Lab Routine Thrombocytopenia, unspecified (HCC) Expected: 02/13/2024, Expires: 05/14/2024 [facility] Work Phone: Comment on above: Expected: 02/13/2024 , Expires: 05/14/2024 Start: 01-16-2024 Urine microalbumin profile [facility] Comment on above: Postponed from 08/23 (Declined at this time) Start: 12-20-2023 End: 12-20-2023 Patient encounter procedure 12/20/2023 2:20 PM EDT Office Visit Neurology [address] [place] [address] Bonifacio Ledbetter Jr., MD [address] [facility] [address] [place] [phone] Gait abnormality [R26.9]; Leg weakness, bilateral [R29.898] Neurology Comment on above: Gait abnormality [R2 6.9]; Leg weakness, bilateral [R29.898] Start: 11-21-2023 End: 02-20-2024 Comprehensive metabolic 2000 panel - Serum or Plasma COMP METABOLIC PANEL Lab Routine Hyperlipidemia, unspecified hyperlipidemia type Expected: 11/21/2023, Expires: 02/20/2024 [facility] Work Phone: Comment on above: Expected: 11/21/2023 , Expires: 02/20/2024 Start: 11-21-2023 End: 02-20-2024 Lipid 1996 panel - Serum or Plasma LIPID PANEL BASIC Lab Routine Hyperlipidemia, unspecified hyperlipidemia type Expected: 11/21/2023, Expires: 02/20/2024 [facility] Work Phone: Comment on above: Expected: 11/21/2023 , Expires: 02/20/2024 Start: 08-18-2023 End: 10-18-2023 Comprehensive metabolic 2000 panel - Serum or Plasma COMP METABOLIC PANEL Lab Routine Hyperlipidemia, unspecified hyperlipidemia type Expected: 08/18/2023, Expires: 10/18/2023 [facility] Work Phone: Comment on above: Expected: 08/18/2023 , Expires: 10/18/2023 Start: 08-18-2023 End: 10-18-2023 Lipid 1996 panel - Serum or Plasma LIPID PANEL BASIC Lab Routine Hyperlipidemia, unspecified hyperlipidemia type Expected: 08/18/2023, Expires: 10/18/2023 [facility] Work Phone: Comment on above: Expected: 08/18/2023 , Expires: 10/18/2023 Start: 08-06-2023 Covid-19 Vaccine () Covid-19 Vaccine () [facility] Start: 07-29-2023 Blood chemistry [facility] Start: 07-22-2023 Blood chemistry [facility] Start: 07-18-2023 Patient discharge [facility] Start: 07-17-2023 Development of care plan [facility] Start: 07-12-2023 Provision of activit y privileges [facility] Start: 07-01-2023 Advance Directive Discussion Advance Directive Discussion [facility] Start: 07-01-2023 Behavioral Health Screening Behavioral Health Screening [facility] Start: 07-01-2023 Depression Assessment Depression Ass essment [facility] Start: 06-29-2023 Speech therapy management [facility] Start: 06-28-2023 Speech therapy assessment [facility] Start: 06-28-2023 Developing a treatme nt plan [facility] Start: 06-28-2023 Development of care plan [facility] Start: 06-27-2023 Following clinical pathway protocol [facility] Start: 06-27-2023 Admission procedure [facility] Start: 06-27-2023 Measuring intake and output [facility] Start: 06-27-2023 Patient referral to dietitian [facility] Start: 06-27-2023 Referral to occupational therapist [facility] Start: 06-27-2023 Referral to service [facility] Start: 06-27-2023 Vital signs measurements [facility] Start: 06-27-2023 End: 06-27-2023 [facility] Start: 06-21-2023 Aspiration precautions [facility] Start: 06-21-2023 [facility] Start: 03-01-2023 Influenza vaccination INFLUENZA (#1) [facility] Start: 02-15-2023 End: 04-17-2023 Urinalysis complete panel - Urine [facility] Work Phone: Comment on above: Expected: 02/15/2023 , Expires: 04/17/2023 Start: 02-13-2023 End: 04-15-2023 CBC panel - Blood by Automated count CBC Lab Routine Thrombocytopenia, unspecified (HCC) Expected: 02/13/2023, Expires: 04/15/2023 [facility] Work Phone: Comment on above: Expected: 02/13/2023 , Expires: 04/15/2023 Start: 02-13-2023 End: 04-15-2023 Comprehensive metabolic 2000 panel - Serum or Plasma COMP METABOLIC PANEL Lab Routine Hyperlipidemia, unspecified hyperlipidemia type Expected: 02/13/2023, Expires: 04/15/2023 [facility] Work Phone: Comment on above: Expected: 02/13/2023 , Expires: 04/15/2023 Start: 02-13-2023 End: 04-15-2023 Lipid 1996 panel - Serum or Plasma LIPID PANEL BASIC Lab Routine Hyperlipidemia, unspecified hyperlipidemia type Expected: 02/13/2023, Expires: 04/15/2023 [facility] Work Phone: Comment on above: Expected: 02/13/2023 , Expires: 04/15/2023 Start: 02-13-2023 End: 04-15-2023 PSA/PROSTSPECAG SCRN PSA/PROSTSPECAG SCRN Lab Routine Benign prostatic hyperplasia with urinary obstruction Expected: 02/13/2023, Expires: 04/15/2023 [facility] Work Phone: Comment on above: Expected: 02/13/2023 , Expires: 04/15/2023 Start: 08-11-2022 End: 10-11-2022 Basic metabolic 2000 panel - Serum or Plasma BASIC METABOLIC PNL Lab Routine Hyperlipidemia, unspecified hyperlipidemia type Expected: 08/11/2022, Expires: 10/11/2022 [facility] Work Phone: Comment on above: Expected: 08/11/2022 , Expires: 10/11/2022 Start: 08-11-2022 End: 10-11-2022 Lipid 1996 panel - Serum or Plasma LIPID PANEL BASIC Lab Routine Hyperlipidemia, unspecified hyperlipidemia type Expected: 08/11/2022, Expires: 10/11/2022 [facility] Work Phone: Comment on above: Expected: 08/11/2022 , Expires: 10/11/2022 Start: 07-01-2022 ADVANCE DIRECTIVE DISCUSSION ADVANCE DIRECTIVE DISCUSSION [facility] Start: 07-01-2022 DEPRESSION ASSESSMENT DEPRESSION ASS ESSMENT [facility] Start: 05-04-2022 End: 05-14-2022 SARS-CoV-2 (COVID-19) RNA [Presence] in Respiratory specimen by GM with probe detection ASYMPTOMATIC ELECTIVE COVID-19 Microbiology Routine Exposure to COVID-19 virus Expected: 05/04/2022, Expires: 05/14/2022 [facility] Work Phone: Comment on above: Expected: 05/04/2022 , Expires: 05/14/2022 Start: 03-01-2022 Influenza vaccination INFLUENZA (#1) [facility] Start: 07-01-2021 ADVANCE DIRECTIVE DISCUSSION ADVANCE DIRECTIVE DISCUSSION [facility] Start: 07-01-2021 DEPRESSION ASSESSMENT DEPRESSION ASS ESSMENT [facility] Start: 07-24-2020 FECAL OCCULT BLOOD FECAL OCCULT BLOO D [facility] Start: 01-14-2016 PNEUMOCOCCAL: 65+ (2 - PPSV23 or PCV20) PNEUMOCOCCAL: 65+ (2 - PPSV23 or PCV20) [facility] Start: 08-14-2012 SHINGRIX VACCINE (2 of 3) SHINGRIX VACCINE (2 of 3) [facility] Start: 2011 RSV Vaccine (1 - 1-d ose 75+ series) RSV Vaccine (1 - 1-dose 75+ series) [facility] Start: 1996 RSV Vaccine (1 - 1-d ose 60+ series) RSV Vaccine (1 - 1-dose 60+ series) [facility] Start: 1954 Anxiety Screening Anxiety Screening [facility] Start: 1954 Depression Screening Depression Scre ening [facility] End: 04-12-2025 MR Brain WO contrast MRI BRAIN WO IVCON Radiology Routine Ataxia 1 Occurrences starting 03/13/2024 until 04/12/2025 [facility] Work Phone: Comment on above: 1 Occurrences starti ng 03/13/2024 until 04/12/2025 End: 04-12-2025 MR Cervical spine WO contrast MRI CERVICAL SPINE WO IVCON Radiology Routine Tremor Spinal stenosis in cervical region Spinal stenosis of cervical region 1 Occurrences starting 03/13/2024 until 04/12/2025 [facility] Comment on above: 1 Occurrences starti ng 03/13/2024 until 04/12/2025 End: 04-12-2025 MR Lumbar spine WO contrast MRI LUMBAR SPINE WO IVCON Radiology Routine Spinal stenosis of lumbar region without neurogenic claudication 1 Occurrences starting 03/13/2024 until 04/12/2025 [facility] Comment on above: 1 Occurrences starti ng 03/13/2024 until 04/12/2025 Patient Education ED Abrasion ED Scalp Contusion ED Head Injury (Adult) [facility] Work Phone: Patient referral [facility] Work Phone: POST VOID RESIDUAL POST VOID RES IDUAL Procedures Routine Benign prostatic hyperplasia with urinary obstruction Erectile dysfunction, unspecified erectile dysfunction type Ordered: 08/31/2022 [facility] Work Phone: Comment on above: Ordered: 08/31/[address] [facility] Work Phone: Comment on above: Ordered: 01/04/2023 UA DIP, URINE (POC) UA DIP, URIN E (POC) Lab Routine OAB (overactive bladder) Ordered: 01/04/2023 [facility] Work Phone: Comment on above: Ordered: 01/04/2023 [facility] Immunizations Immunization Date Immunization Notes Care Provider [facility] 03-27-2024 COVID-19 vaccine, ag e 12+ yr (PFIZER-BIONTECH COMIRNATY) Vadim Deras MD Work Phone: [facility] 03-20-2024 influenza, high dose seasonal, preservative-free Vadim Deras MD Work Phone: [facility] 06-21-2023 tetanus toxoid, reduced diphtheria toxoid, and acellular pertussis vaccine, adsorbed [facility] 04-05-2023 Pfizer Covid-19 (Comirnaty) Dr. Vadim Deras Work Phone: [facility] 03-25-2023 influenza (aIIV4) vaccine, age 65+ yr, quadrivalent, PF (FLUAD QUAD) Vadim Deras MD Work Phone: [facility] 03-25-2023 influenza, injectabl e, quadrivalent, preservative free Dr. Vadim Deras Work Phone: [facility] 03-25-2023 influenza virus vaccine, unspecified formulation Vadim Deras MD Work Phone: [facility] 12-21-2022 COVID-19 vaccine, ag e 12+ yr, bivalent (PFIZER-BIONTECH) Lynda Meyers PA-C Work Phone: [facility] Work Phone: 03-27-2022 influenza, high dose seasonal, preservative-free Vadim Deras MD Work Phone: [facility] Work Phone: 03-12-2022 COVID-19 booster vaccine, age 12+ yr, bivalent (PFIZER-BIONTECH) Susan Corado PA-C Work Phone: [facility] Work Phone: 02-08-2022 pneumococcal (PCV20) vaccine, 20 valent (PREVNAR 20) Vadim Deras MD Work Phone: [facility] Work Phone: 02-08-2022 pneumococcal Conjugate, unspecified formulation Vadim Deras MD Work Phone: [facility] Work Phone: 10-14-2021 Covid (Pfizer) Dr. Vadim Deras Work Phone: [facility] 04-05-2021 Covid (Pfizer) Dr. Vadim Deras Work Phone: [facility] 03-17-2021 influenza, high-dose , quadrivalent vaccine (FLUZONE HIGH DOSE QUADRIVALENT) Su Ware MD Work Phone: [facility] Work Phone: 07-29-2020 Covid (Pfizer) Dr. Vadim Deras Work Phone: [facility] 07-08-2020 Covid (Pfizer) Dr. Vadim Deras Work Phone: [facility] 07-07-2020 COVID-19 vaccine, ag e 12+ yr (PFIZER-BIONTECH - PURPLE TOP) Su Ware MD Work Phone: [facility] Work Phone: 03-30-2020 influenza, high dose seasonal, preservative-free Su Ware MD Work Phone: [facility] Work Phone: 03-30-2019 influenza, high dose seasonal, preservative-free Su Ware MD Work Phone: [facility] Work Phone: 03-23-2018 influenza, high dose seasonal, preservative-free Su Ware MD Work Phone: [facility] Work Phone: 04-04-2017 influenza, injectabl e, quadrivalent, contains preservative Su Ware MD Work Phone: [facility] Work Phone: 04-04-2017 influenza, injectabl e, quadrivalent, preservative free Dr. Vadim Deras MD Work Phone: [facility] 04-04-2016 influenza, injectabl e, quadrivalent, preservative free Dr. Vadim Deras MD Work Phone: [facility] 04-04-2016 influenza, seasonal, injectable Su Ware MD Work Phone: [facility] 04-14-2015 influenza, high dose seasonal, preservative-free Su Ware MD Work Phone: [facility] 01-13-2015 pneumococcal conjuga te vaccine, 13 valent Su Ware MD Work Phone: [facility] 04-13-2014 influenza, injectabl e, quadrivalent, preservative free Dr. Vadim Deras MD Work Phone: [facility] 04-13-2014 influenza, seasonal, injectable Su Ware MD Work Phone: [facility] Work Phone: 03-31-2013 influenza virus vaccine, unspecified formulation Su Ware MD Work Phone: [facility] 06-19-2012 zoster vaccine, live Su child MD Work Phone: [facility] 06-06-2012 zoster vaccine, live Dr. Juan Deras Work Phone: [facility] 03-31-2012 influenza virus vaccine, unspecified formulation Su Ware MD Work Phone: [facility] 06-29-2009 novel [id number], preservative-free, injectable Su Ware MD Work Phone: [facility] Work Phone: 08-22-2007 tetanus and diphther ia toxoids, adsorbed, preservative free, for adult use (2 Lf of tetanus toxoid and 2 Lf of diphtheria toxoid) Su Ware MD Work Phone: [facility] Work Phone: Payers Date Payer Category Payer Medicaid [place]ICA[place] [id number] 2024 Medicaid [id number] 2024 Medicare [id number] 2024 Self-pay [id number] 2023 Medicare (Managed Care) [id number]. [id number] 2023 Private Health Insurance [facility] [id number] 2021 Medicare HUMANA MEDICARE HUMANA MEDICARE PPO [id number] 2021-Present [phone] [address] [address] [place] [address] PPO [id number] 2021 Medicare [id number] 2021 Medicare [id number] Unknown [employer] HMO [id number] Unknown [id number]. 462 Unknown [id number]. 462 Unknown [id number]. 462 Unknown [id number] [id number]. 462 Unknown [id number] 2.840.1.310223.3.579.2. 462 Unknown [id number] 2.840.1.688581.3.579.2. 462 Unknown [id number] 2.840.1.655945.3.579.2. 462 Unknown [id number] 2.840.1.738659.3.579.2. 462 Unknown [id number] 2.840.1.750898.3.579.2. 462 Unknown [id number] 2.840.1.088698.3.579.2. 462 Unknown [id number] 2.840.1.575911.3.579.2. 462 Unknown [id number] 2.840.1.778808.3.579.2. 462 Unknown [id number] 2.840.1.204913.3.579.2. 462 Unknown [id number] 2.840.1.004872.3.579.2. 462 Unknown [id number] 2.840.1.852610.3.579.2. 462 Unknown [id number] 2.840.1.037472.3.579.2. 462 Unknown [id number] 2.16840.1.763983.3.579.2. 462 Unknown [id number] [id number]. 462 Unknown [id number] [id number]. 462 Social History Date Type Detail Facility Start: 02-08-2022 End: 02-21-2024 Tobacco smoking status NHIS Ex-smoker [facility] History of tobacco use Cigarette Smoker [facility] History of tobacco use Pipe Smoker [facility] End: 07-01-1993 History of tobacco use User of smokeless tobacco [facility] Start: 09-29-2021 End: 09-04-2024 Alcohol intake Current drinker of alcohol (finding) [facility] Start: 09-29-2021 End: 10-12-2024 Alcohol intake [facility] Work Phone: Start: 08-11-2021 End: 08-16-2022 History SDOH Alcohol Frequency 3 [facility] Start: 08-11-2021 End: 08-16-2022 History SDOH Alcohol Std Drinks 1 [facility] Start: 07-28-2020 History SDOH Alcohol Comment or less. [facility] Start: 08-11-2021 End: 08-16-2022 History SDOH Social Connections Phone 5 [facility] Start: 08-11-2021 End: 08-16-2022 History SDOH Social Connections Living 7 [facility] Start: 08-11-2021 End: 08-16-2022 History SDOH Physical Activity DPW 2 [facility] Start: 08-11-2021 End: 08-16-2022 History SDOH Financial 4 [facility] Start: 1935 Sex Assigned At Not on file [facility] Start: 09-19-2021 End: 02-08-2022 Exposure to SARS-CoV-2 (event) Not sure [facility] History of tobacco use Current smoker [facility] Work Phone: Start: 02-08-2022 Tobacco use and exposure Forme r smokeless tobacco user [facility] Work Phone: Start: 02-08-2022 Tobacco Comment Quit 1993 (cig x 5 years and pipe x 20 years) [facility] Start: 04-24-2022 End: 05-04-2022 Exposure to SARS-CoV-2 (event) Yes [facility] Start: 01-04-2023 End: 02-21-2024 Tobacco use and exposure Smokeless tobacco non-user [facility] Start: 08-16-2022 End: 10-12-2024 Social connection and isolation panel [facility] Work Phone: Are you now , , , , never or living with a partner? Never [facility] Work Phone: How often to you hav e a drink containing alcohol? 2-4 times a month [facility] Work Phone: How many standard dr inks containing alcohol do you have on a typical day? 1 or 2 [facility] Work Phone: How often do you hav e 6 or more drinks on 1 occasion? Never [facility] Work Phone: How hard is it for y ou to pay for the very basics like food, housing, medical care, and heating Not very hard [facility] Work Phone: Adult Depression Screening Assessment 0 [facility] Work Phone: Do you feel stress - tense, restless, nervous, or anxious, or unable to sleep at night because your mind is troubled all the time - these days [OSQ] Not at all [facility] Work Phone: Start: 06-21-2023 End: 06-28-2023 Tobacco smoking status NHIS Unknown if ever smoked [facility] Start: 1935 Sex Assigned At Male W [facility] Medical Equipment Procedure Code Equipment Code Equipment Origin al Text Equipment Identifier Dates Plate Lcp Stainl ess Steel [id number] Bone 7 Hole 1/3 Tubular Collar Small - [id number] Start: 06-23-2023 Screw Dcp 2.7mm Short Thread Stainless Steel 20mm Bone Self Tapping Small - [id number] Start: 06-23-2023 Screw Lc-Dcp Dcp 3.5mm 6mm Full Thread Stainless Steel 14mm Bone Self Tap - [id number] Start: 06-23-2023 Screw Lc-Dcp Dcp 3.5mm 6mm Full Thread Stainless Steel 16mm Bone Self - [id number] Start: 06-23-2023 Screw Lcp 3.5mm Full Thread Stainless Steel 12mm Bone Stardrive Recess Self - [id number] Start: 06-23-2023 Screw Lcp 3.5mm Stainless Steel 18mm Bone Locking Self Tapping T15 Star - [id number] Start: 06-23-2023 Goals Date Patient Goal Desired Activity /State Functional Status Date Assessment Result Facility 07-18-2023 Functional status Chair [facility] Work Phone: 07-17-2023 Functional status Standard Walker;Wheelchair [facility] Work Phone: 01-17-2015 Are you deaf, or do you have serious difficulty hearing No 01/17/2015 4:27 PM Melissa Crawford RN No [facility] 01-17-2015 Are you blind, or do you have serious difficulty seeing, even when wearing glasses No 01/17/2015 4:27 PM Melissa Crawford RN No [facility] 01-17-2015 Do you have serious difficulty walking or climbing stairs No 01/17/2015 4:27 PM Melissa Crawford RN No [facility] 01-17-2015 Do you have difficul ty dressing or bathing No 01/17/2015 4:27 PM Melissa Crawford RN No [facility] 01-17-2015 Because of a physica l, mental, or emotional condition, do you have difficulty doing errands alone such as visiting a physician's office or shopping No 01/17/2015 4:27 PM Melissa Crawford RN No [facility] Mental Status Date Assessment Result Facility 07-18-2023 Cognitive function Voice/Name [facility] Work Phone: 01-17-2015 Because of a physica l, mental, or emotional condition, do you have serious difficulty concentrating, remembering, or making decisions No 01/17/2015 4:27 PM Melissa Crawford RN No [facility] Clinical Notes 08-22-2007 to 12-09-2024 Telephone [...] MD. Genitourinary Medicine and Men's Health Staff. [facility] Urological and Kidney [facility] 12-09-2024 Miscellaneous Notes Called his sister Gerri and discussed about the treatment plan. Will keep Cialis and Gemtesa for now and add Flomax to the treatment regimen. Discussed about Interstim and Botox. Family not interested. Demetrio Gill MD. Genitourinary Medicine and Men's Health Staff. [facility] Urological [facility] Kidney [facility] documented in this encounter [facility] 11-30-2024 Radiology Diagnostic study note [facility] [address] [place] [address] Brain/Head without Contrast MR#: [id number] Acct: [id number] Name: DENIZ KUMAR Rep #: [id number] : [id number] M [id number] From: Annabel Conti MD PCP: Dr. Vadim Deras MD Status: R EG ER Study:Brain/Head without Contrast Date of Exa m: 11/30/24 Exam# [id number] Ordering Dr: Kelton Valdivia MD ADDENDUM by Dr. Richa Conti MD on 11/30/[address] Valdivia was notified by Richa Conti at 3:15pm EST on 11/30/24 Reading Location: [facility] 11/30/24 1533 Date cc: Dr. Kelton Valdviia MD; Dr. Vadim Deras MD ~* Signed [...] air cells may reflect mastoiditis. Reading Location: [facility] CC: Dr. Kelton Valdivia MD; Dr. Vadim Deras MD ~ 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: Signed [facility] 11-30-2024 Radiology Diagnostic study note [facility] Imaging Services [address] [place] [id number] Spine Cervical without Contras MR#: [id number] Acct: [id number] Name: DENIZ KUMAR Rep #: [id number] : [id number] M [id number] From: Annabel Conti MD PCP: Dr. Vadim Deras MD Status: R EG ER Study:Spine Cervical without Contras Date of Exam: 11/30/24 Exam# [id number] Ordering Dr: Kelton Valdivia MD PROCEDURE: SPINE [...] Moderate to severe multilevel degenerative changes with [id number] multilevel foraminal stenosis due to facet hypertrophy [...] the cervical spine as above. Reading Location: [facility] CC: Dr. Kelton Valdivia MD; Dr. Vadim Deras MD ~ 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: Signed [facility] 10-12-2024 Instructions Demetrio Gill MD - 10/12/2024 [...] and B3 agonist. documented in this encounter [facility] 10-12-2024 Note HNO ID: [id number] Author: DEMETRIO GILL MD Service: ? Author Type: Physician Type: Progress Notes Filed: 10/12/2024 13:02 Note Text: [facility] MALE PATIENT - HISTORY [...] daily. (Patient not (more content not included)... [facility] 10-12-2024 History of Present illness Narrative [facility] MALE PATIENT - HISTORY [...] (overactive bladder) Pure hypercholesterolemia SAH (subarachnoid hemorrhage) ([facility]) 07/16/2023 Subdural hematoma (HCC) 06/21/2023 [...] was discussed with the patient or authorized cash posting representative. The patient or authorized cash posting representative has agreed to proceed with the [...] Consultation requested by Dr. Bonifacio Ledbetter [address] [address] for an opinion regarding OAB and my final recommendations will be communicated back to the requesting physician by way of shared Medical record or letter via US mail. Demetrio Gill MD. Genitourinary Medicine and [facility] Health Staff. [facility] Urological and Kidney [facility] [facility] PVR 0 documented in this encounter [facility] 10-12-2024 Note HNO ID: [id number] Author: MICHELLE REDD RN Service: ? Author Type: Registered Nurse Type: Progress Notes Filed: 10/12/2024 13:02 Note Text: PVR 0 [facility] 09-28-2024 Telephone encounter Note Updated chart and removed pcp Rachel Khalil MA [facility] 09-28-2024 Miscellaneous Notes Updated chart and removed pcp Rachel Khalil MA Sister Gerri is calling to report patient is now residing at [facility] and seeing their provider, Patient admitted to [facility] at the end of 2023 Gerri received a letter for a missed appointment and was not aware of that appt or she would have called to cancel. documented in this encounter [facility] 09-28-2024 Telephone encounter Note Sister Gerri is calling to report patient is now residing at [facility] and seeing their provider, Patient admitted to [facility] at the end of 2023 Gerri received a letter for a missed appointment and was not aware of that appt or she would have called to cancel. [facility] 09-17-2024 Telephone encounter Note In review of appointments, patient has been scheduled with Urology on 10/12/24. ADRIAN Hall [facility] 09-17-2024 Miscellaneous Notes In review of appointments, patient has been scheduled with Urology on 10/12/24. ADRIAN Hall 1st attempt lvm Please contact patients Gerri goff, at [phone] to assist with scheduling Consult for Urology. Thank you. ADRIAN Hall documented in this encounter [facility] 09-11-2024 Telephone encounter Note 1st attempt lvm [facility] 09-11-2024 Telephone encounter Note Please contact patients sister, Gerri Barnes, at [phone] to assist with scheduling Consult for Urology. Thank you. ADRIAN Hall [facility] 09-04-2024 Note HNO ID: [id number] Author: BONIFACIO LEDBETTER JR, MD Service: ? [...] out. Patient reports biggest problem is an enlarged prostate. Asking for urology consult. Reports nocturia (4-5 [...] Value 11/14/2023 0.6 (more content not included)... [facility] 09-04-2024 History of Present illness Narrative [...] out. Patient reports biggest problem is an enlarged prostate. Asking for urology consult. Reports nocturia (4-5 [...] bilaterally (throughout extremities x4). Coordination: FNF, intact. TANKIA mild bradykin tina but symmetric. No tremors. [...] increase Sinemet 25/100mg to 1.5 tabs at [id number]-[id number]. Will also add Sinemet CR 50/200 at [...] which included preparing to see the patient, [id number] patient care, completing clinical documentation, obtaining and/or reviewing separately obtained history, performing a medically appropriate examination, counseling and educating the patient/family/caregiver, ordering medications, tests, or procedures, and communicating results to the patient/family/caregiver. documented in this encounter [facility] 08-26-2024 Telephone encounter Note Provider Confirmation Form, Special Supplemental Benefits for the Chronically Ill (SSBCI) completed by Dr. Deras and faxed to [phone]. PCP marking - Meets the defined criteria. Rosetta Zamorano LPN [facility] 08-26-2024 Miscellaneous Notes Provider Confirmation Form, Special Supplemental Benefits for the Chronically Ill (SSBCI) completed by Dr. Deras and faxed to [phone]. PCP marking - Meets the defined criteria. Rosetta Zamorano LPN documented in this encounter [facility] 06-26-2024 Note HNO ID: [id number] Author: BONIFACIO LEDBETTER JR, MD Service: ? Author Type: Physician Type: Progress Notes Filed: 06/28/2024 10:33 Note Text: ESTABLISHED PATIENT VISIT CHIEF COMPLAINT: Follow Up HISTORY OF PRESENT ILLNESS: Deniz Kumar is a 89 year old male, There were no vitals taken for this visit. with a [facility] significant for and per last office visit [...] with limited history of what happened in [facility] and I do not have complete hospital records. Those records in [facility] reviewed. No mention of acute intracranial process or other acute finding on imaging. D/c to [facility]. Patient reporting bladder incontinence - [...] swelling RESPIRATORY: Negativ (more content not included)... [facility] 06-26-2024 History of Present illness Narrative [...] with limited history of what happened in [facility] and I do not have complete hospital records. Those records in [facility] reviewed. No mention of acute intracranial process or other acute finding on imaging. D/c to [facility]. Patient reporting bladder incontinence - [...] which included preparing to see the patient, [id number]-[id number] patient care, completing clinical documentation, obtaining and/or reviewing separately obtained history, performing a medically appropriate examination, counseling and educating the patient/family/caregiver, ordering medications, tests, or procedures, independently interpreting results (not separately reported), and communicating results to the patient/family/caregiver. . documented in this encounter [facility] 06-26-2024 Note HNO ID: [id number] Author: ROSA STEINER LPN Service: ? Author Type: LICENSED NURSE Type: Progress Notes Filed: 06/28/2024 10:33 Note Text: [facility] 06-01-2024 Telephone encounter Note Rec'd records from [facility] pt was discharged from there to care home [facility] 05/30/24. [facility] 06-01-2024 Miscellaneous Notes Rec'd records from [facility] pt was discharged from there to care home [facility] 05/30/24. documented in this encounter [facility] 05-30-2024 Note [facility] Medical Records Department [address] [place] [address] Discharge Summary 05/30/24 1310 MR#: [id number] Acct: [id number] Name: DENIZ KUMAR Rep #: [id number] : 1935 88 From: Mirian Farris DO PCP: Dr. Vadim Deras MD Status:[facility] IN Location: [place] [address] Providers Date of Admission: 05/19/24 Date of [...] who presented to the emergency department at [facility] on 05/15/2024 complaining of generalized weakness, back [...] by PT/OT while in the hospital and group home was recommended at discharge. He was discharged to the transitional care unit at [facility] on 05/19/2024 for strengthening/rehabilitation in hopes of getting him home. The SW was in touch with his sister who is his NCPOA) and a concern was voiced about him returning to his trailer to live by himself. apparently he has intermittent confusion and has been falling. Arrangements were made to transfer to a non-group home facilty following TCU admission and he [...] blood cell count (more content not included)... [facility] 05-20-2024 Telephone encounter Note Spoke to marium Talley of message below. Verbalized understanding. Rosa Steiner LPN May 20, 2024 8:57 AM [facility] 05-20-2024 Miscellaneous Notes Spoke to Gerri advised of message below. Verbalized understanding. Rosa Steiner LPN May 20, 2024 8:57 AM Defer to those providers following patient at the transitional care unit. Bonifacio Ledbetter MD Patient's sister Gerri Barnes calling and would like Dr. Ledbetter to know that patient had a recent fall and is now at [facility] Transitional Care Unit for therapy. Sister Gerri asking if Dr. Ledbetter would like to add any specific exercises to pt's regimen there? Please call Gerri with reply at [phone]. Leanne Tejada RN documented in this encounter [facility] 05-19-2024 Telephone encounter Note Defer to those providers following patient at the transitional care unit. Bonifacio Ledbetter MD [facility] 05-19-2024 Note [facility] Medical Records Department [address] [place] [address] History Physical Exam 05/19/241938 MR#: [id number] Acct: [id number] Name: DENIZ KUMAR Rep #: [id number] : 1935 88 From: Preston Camilo MD PCP: Dr. Vadim Deras MD Status:ADM IN Location: [facility] [id number] HPI - General General Date of Admission: 05/19/24 Date of Service: 05/19/24 Chief Complaint: Here for rehabilitation. HPI Narrative DENIZ KUMAR, is a 88 Male who presents with followin05/15/2024 [facility] ED with weakness. Intermittent back pain, weakness, recent MRI showed spinal stenosis. Generalized weakness, difficulty ambulating. Drinks little 2/2 urinary incontinence, Bilateral foot numbness. CBCD okay, BMP okay, UA negative, Troponin 69. 05/15/2024 Admit [facility]. PT/OT for weakness. Elevated troponin 2/2 [...] rehabilitation, strengthening, prior to discharge home alone. [facility] Medical History (Updated 05/19/24 @ 19:44 by [...] Physical Exam Co (more content not included)... [facility] 05-19-2024 Telephone encounter Note Patient's sister Gerri Barnes calling and would like Dr. Ledbetter to know that patient had a recent fall and is now at [facility] Transitional Care Unit for therapy. Sister Gerri asking if Dr. Ledbetter would like to add any specific exercises to pt's regimen there? Please call Gerri with reply at [phone]. Leanne Tejada RN [facility] 05-19-2024 Note [facility] Medical Records Department [address] [place] [address] Discharge Summary 05/19/24 0953 MR#: [id number] Acct: [id number] Name: DENIZ KUMAR Rep #: [id number] : 1935 88 From: Kendall Dowling DO PCP: Dr. Vadim Deras MD Status:ADM ROSHNI Location: [place] [address] Providers Date of Admission: 05/15/24 Primary Care Physician: Dr. Vadim Deras MD Reason For Visit: ACUTE ON CHRONIC DEBILITY, ELEVATED TROPONINS Diagnosis Discharge Diagnosis (1) Debility: Status: Acute Code(s): R53.81 - Other malaise (2) Elevated troponin: Status: Acute Code(s): R79.89 - Other specified abnormal findings of blood chemistry Plan Acute on chronic debility * work up here unremarkable. * [facility] had an MRI of his cervical and lumbar spine on April 10 that that showed cervical spine degenerative changes most pronounced at C4-5 and C5-6. Lumbar spine degenerative changes most pronounced at L3-4 * PT OT evaluate and treat. elevated troponins; * Echo showed an EF of 55% * Through [facility], I did not see any previous troponins outside of [facility]. No additional workup at this time. Chronic [...] mg-5 mcg (200 (more content not included)... [facility] 04-27-2024 Telephone encounter Note Patient reports he had cancelled the tolterodine at the pharmacy, and since then has changed his mind, and would like to try it, for his BPH w/urgency of urination. Asking if pcp would resend this Rx to [facility]. Pended. [facility] 04-27-2024 Miscellaneous Notes Patient reports he had cancelled the tolterodine at the pharmacy, and since then has changed his mind, and would like to try it, for his BPH w/urgency of urination. Asking if pcp would resend this Rx to [facility]. Pended. documented in this encounter [facility] 04-13-2024 Telephone encounter Note TC to patient who verbalized understanding of providers message below. Patient agreeable to see Spine, please place consult. Patient also questioning if he needs to keep follow up appointment with Dr. Ledbetter on 06/26. 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 If ok, will place referral. These findings may be the cause of patient's symptoms. Bonifacio Ledbetter MD [facility] 04-10-2024 History of Present illness Narrative [...] PATIENT PRESENTS WITH AN IMPLANTABLE OR ATTACHED DIRECTOR DIGITAL ANALYTICS: No RADIOLOGY DEPARTMENT: MR; Exam(s) Completed: Head: Routine Brain Spine: Cervical spine and Lumbar spine PERIPHERAL IV DATA: Not applicable SIGNED BY: LILIAM Núñez) April 10, 2024 8:29 AM documented in this encounter [facility] 04-10-2024 Note HNO ID: [id number] Author: MISTI NGUYEN RT(R) Service: ? Author [...] PATIENT PRESENTS WITH AN IMPLANTABLE OR ATTACHED DIRECTOR DIGITAL ANALYTICS: No RADIOLOGY DEPARTMENT: MR; Exam(s) Completed: Head: Routine Brain Spine: Cervical spine and Lumbar spine PERIPHERAL IV DATA: Not applicable SIGNED BY: LILIAM Núñez) April 10, 2024 8:29 AM [facility] 04-02-2024 Note HNO ID: [id number] Author: ?, ?, ? Service: ? Author Type: ? Type: Progress Notes Filed: 04/02/2024 10:45 Note Text: Deniz Kumar is identified through a medication adherence outreach initiative based on pharmacy claims data from [employer] (insurer) for SANGITA medication(s). Patient is reviewed [...] refill per call to patient/caregiver Alexandr Griffin [facility] 04-02-2024 History of Present illness Narrative Deniz Kumar is identified through a medication adherence outreach initiative based on pharmacy claims data from [employer] (insurer) for SANGITA medication(s). Patient is reviewed [...] patient/caregiver Alexandr Griffin documented in this encounter [facility] 04-02-2024 Note Patient Outreach ( POHE) DENIZ KUMAR ([id number]) 1935 M Date Time Provider Department 04/02/24 VADIM DERAS During your visit today, we recorded the following information about you: Alexandr Griffin 04/02/2024 10:45 AM Signed Deniz Echavarria Casbjorn is identified through a medication adherence outreach initiative based on pharmacy claims data from [employer] (insurer) for SANGITA medication(s). Patient is reviewed [...] As of Date: 04/02/2024 Noted Allergy Reaction [id number] REDUCTASE INHIBIT*08/23/2023 17 - Myalgia Comments: Weakess, [...] Encounter Status:Closed by ALEXANDR GRIFFIN on 04/02/24 [facility] 03-13-2024 Note HNO ID: [id number] Author: BONIFACIO LEDBETTER JR, MD Service: ? [...] lower back, rear end and thighs per patient. Patient does reports falls since that resulting [...] (U/L) Date Value 11/14/2023 13 URINALYSIS Specific [place], Ur Date Value Ref Range Status 02/15/2023 1.021 1.005 - 1.030 Final Glucose, Urine Date Value Ref Range Status 02/15/2023 Negative Trace, Negative Final Bilirubin, Urine Date Value Ref Range Status 02/15/2023 Negative Negative (more content not included)... [facility] 03-13-2024 History of Present illness Narrative [...] lower back, rear end and thighs per patient. Patient does reports falls since that resulting [...] (U/L) Date Value 11/14/2023 13 URINALYSIS Specific [place], Ur Date Value Ref Range Status 02/15/2023 [...] 4 - Moderate documented in this encounter [facility] 02-26-2024 Telephone encounter Note Noted. [facility] 02-26-2024 Miscellaneous Notes Noted. Pt calls to report that insurance will not cover tolterodine 1 mg tab so he will not be taking medication. Melanie Naylor LPN documented in this encounter [facility] 02-25-2024 Telephone encounter Note Pt calls to report that insurance will not cover tolterodine 1 mg tab so he will not be taking medication. Melanie Naylor LPN [facility] 02-21-2024 Note HNO ID: [id number] Author: VADIM DERAS MD Service: ? Author Type: Physician Type: Progress Notes Filed: 02/21/2024 11:07 Note Text: This note was created using [employer]. Subjective Deniz Kumar is a 88 year old male. He was doing home exercises and working out at for leg strengthening. He complained of ongoing edema, and nocturia. Oxybutynin was no longer effective. 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 Review of Systems Constitutional: Negative [...] Fracture of Left Ankle Sah (Subarachnoid Hemorrhage) ([facility]) History of Tia (Transient Ischemic Attack) Gait [...] OXYBUTYNIN. - TOLTERODINE (more content not included)... [facility] 02-21-2024 History of Present illness Narrative This note was created using [employer]. Subjective Deniz Kumar is a 88 year old male. He was doing home exercises and working out at for leg strengthening. He complained of ongoing edema, and nocturia. Oxybutynin was no longer effective. 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 Review of Systems Constitutional: Negative [...] Mental Status: He is alert. Latest Ref [facility] 02/14/2024 WBC 3.70 - 11.00 k/uL [...] Get at pharmacy. documented in this encounter [facility] 02-21-2024 Note HNO ID: [id number] Author: VADIM DERAS MD Service: ? Author [...] - Vaccine recommendations reviewed. Get at pharmacy. [facility] 02-21-2024 Nurse Note VISUAL ACUITY: Today's exam: Vision Correction? Glasses: RIGHT EYE: 20/unable due to previous eye injury LEFT EYE: 20/30 BOTH EYES: 20/25 [facility] 02-21-2024 Nurse Note VISUAL ACUITY: Today's exam: Vision Correction? Glasses: RIGHT EYE: 20/unable due to previous eye injury LEFT EYE: 20/30 BOTH EYES: 20/25 documented in this encounter [facility] 02-13-2024 Telephone encounter Note PATIENT NOTIFIED OF INFORMATION [facility] 02-13-2024 Miscellaneous Notes PATIENT NOTIFIED OF INFORMATION Orders placed. Patient called in again to see if any orders have been placed. Patient came in expecting labs for [place] appointment on 02/21/24. No labs were placed. Please adivise and call patient if labs are placed. Robina Smith, UMER documented in this encounter [facility] 02-13-2024 Telephone encounter Note Orders placed. [facility] 02-13-2024 Telephone encounter Note Patient called in again to see if any orders have been placed. [facility] 02-13-2024 Telephone encounter Note Patient came in expecting labs for Braeden appointment on 02/21/24. No labs were placed. Please adivise and call patient if labs are placed. UMER Mauricio [facility] 01-30-2024 Telephone encounter Note The patient has [...] Orellana LPN January 30, 2024 11:11 AM [facility] 01-30-2024 Miscellaneous Notes The patient has been [...] 2024 11:11 AM documented in this encounter [facility] 11-21-2023 Note HNO ID: [id number] Author: VADIM DERAS MD Service: ? Author Type: Physician Type: Progress Notes Filed: 11/21/2023 13:00 Note Text: This note was created using [employer]. Subjective Deniz Kumar is a 88 year [...] TABLET,EXTENDED RELEASE 24 HR Vadim Deras MD [facility] 11-21-2023 History of Present illness Narrative This note was created using [employer]. Subjective Deniz Kumar is a 88 year [...] is alert. Gait: Gait normal. Latest Ref [facility] 11/14/2023 Protein, Total 6.3 - 8.0 [...] Vadim Deras MD documented in this encounter [facility] 10-14-2023 History of Present illness Narrative This note was created using [employer]. Subjective Patient presents with: Weakness Deniz Kumar is a 88 year old male who continued to have issues with leg weakness and unsteadiness in gait, since he was admitted for fall, head injury, SAH, SDH, and left ankle fracture. He felt he had muscle weakness from statin medication, so we did not resume statin, even as he was getting statin in the care home. He had rehab in the hospital, then in the care home. He was concerned about other issues like [...] Urinary Obstruction Chronic Nonallergic Rhinitis Thrombocytopenia, Unspecified ([facility]) Erectile Dysfunction Obesity, Class II, Bmi 35-39.9 Urgency of Urination Subdural Hematoma (H[facility]) Fall Closed Fracture of Left Ankle Sah (Subarachnoid Hemorrhage) ([facility]) History of Tia (Transient Ischemic Attack) Gait [...] NON-[facility] FACILITY. Physical therapy outpatient. He preferred [facility]. 2. Leg weakness, bilateral - ICD9: [...] Vadim Deras MD documented in this encounter [facility] 09-09-2023 Miscellaneous Notes Patient has been [...] Patient insurance changed now has to use [facility] pharmacy. Please advise. Thank you. Cary Andre LPN. documented in this encounter [facility] 08-23-2023 History of Present illness Narrative This note was created using [employer]. Shabbir Kumar is a 88 year old male. He was discharged from [facility] after rehab for left ankle fracture. This was in the setting of a fall, head injury, IC hemorrhage. He felt strongly he developed muscle aches and weakness from pravastatin. Curiously, he was getting atorvastatin in the care home. His medications were changed, but he went back to his previous medications from [facility] pravastatin. Review of Systems Constitutional: Positive [...] Vadim Deras MD documented in this encounter [facility] 08-15-2023 Miscellaneous Notes I called Ann-Marie @ [facility] back and gave her the verbal ok per Dr. Valdez to continue home PT. There was no answer. But I left the order on her secure VM. Chloehans Joyner August 15, 2023 3:19 PM documented in this encounter [facility] 08-13-2023 Miscellaneous Notes Ann-Marie notified of response from provider. Nicole Orellana LPN I can follow. Ann-Marie from [facility] calling patient discharged from [facility] on 08/09/2023 had left ankle fracture and subdural hematoma from fall. Dr Valdez, Ortho is helping with ankle, asking if PCP would follow and sign orders? Please advise documented in this encounter [facility] 08-06-2023 Note HNO ID: [id number] Author: BONIFACIO VALDEZ MD Service: ? Author [...] him to contact the office. Questions answered. [facility] 08-06-2023 History of Present illness Narrative [...] office. Questions answered. documented in this encounter [facility] 08-02-2023 Note HNO ID: [id number] Author: NICOLÁS JUNIOR MD Service: ? Author Type: Physician Type: Progress Notes Filed: 08/02/2023 14:04 Note Text: NEUROSURGERY FOLLOW UP OFFICE NOTE Dr. Nicolás Junior MD, FACS Date of visit: August Patient Name: Mr.Peter Jericho Kumar Date of : 1935 Current Age: [age] year old Sex: male MRN/E# [id number] Last Office Visit: 07/16/2023 CHIEF COMPLAINT: Patient presents with: Established Patient SUBJECTIVE: The patient presents as a follow-up with imaging (CT B) for evaluation. This is an 88-year-old male with a PMHx TIA, HTN, hypercholesterolemia, thrombocytopenia who was seen for consult at [facility] on 06/21/2023 after a fall while [...] he was a resident in rehab in [place] and hoped to be discharged to a long-term that week. He denied headache, visual changes, [...] for discharge. Respirat (more content not included)... [facility] 08-02-2023 History of Present illness Narrative [...] PATIENT PRESENTS WITH AN IMPLANTABLE OR ATTACHED DIRECTOR DIGITAL ANALYTICS: No RADIOLOGY DEPARTMENT: CT; Exam(s) Completed: Brain PERIPHERAL IV DATA: Not applicable SIGNED BY: RT Karol(Taryn) August 02, 2023 1:04 PM documented in this encounter [facility] 08-02-2023 Note HNO ID: [id number] Author: MAIRA ALEXANDER RT (R) Service: Radiology [...] PATIENT PRESENTS WITH AN IMPLANTABLE OR ATTACHED DIRECTOR DIGITAL ANALYTICS: No RADIOLOGY DEPARTMENT: CT; Exam(s) Completed: Brain PERIPHERAL IV DATA: Not applicable SIGNED BY: LILIAM Roberson) August 02, 2023 1:04 PM [facility] 07-16-2023 Discharge summary Note Date/Time July 16, 2023 8:10pm [facility] Medical Records Department [address] [place] [address] Discharge Summary 07/16/232007 MR#: [id number] Acct: [id number] Name: DENIZ KUMAR Rep #:[id number] : 1935 88 From: Preston Camilo MD PCP: Dr. Vadim Deras MD Status:A DM IN Location: [address] Date of Admission: 06/27/23 Primary Care Physician: [...] strengthening, prior to disposition determination. Discharge 07/18/2023, [facility], intermediate, part B therapies. Physical Exam [...] and Uncontrolled pain Additional Instructions: Discharge 07/18/2023, [facility], intermediate, part B therapies. Please Follow Up With: Bonifacio Valdez MD When: As scheduled. Meaningful Use Info Meaningful Use Diagnoses (Choose all that apply): None applicable Discharge Plan Admission Admit Date/Time: 06/27/23 18:19 Primary Reason for Your Visit: Debility. Attending Provider: Mirian Farris Primary Care Provider: Vadim Deras Instructions Additional Instructions / Restrictions: Discharge 07/18/2023, [facility], intermediate, part B therapies. Discharge Orders/Prescriptions [...] Camilo MD; Dr. Vadim Deras MD~ Signed [facility] Work Phone: [phone]) 745-834701-16-2024 Discharge summary Author Preston Camilo [facility] July 16, 2023 8:17pm Note Date/Time July 16, 2023 8 :17pm [facility] Medical Records Department [address] [place] [id number] Transfer to [facility] MR#: [id number] Acct: [id number] Name: DENIZ KUMAR Rep #:[id number] : 1935 88 From: Preston Camilo MD PCP: Dr. Vadim Deras MD Status:A DM IN Certification of patient admission REQUIRED AT TIME OF ADMISSION. I CERTIFY THAT POST-HOSPITAL ECF SERVICES ARE REQUIRED TO BE GIVEN ON AN IN-PATIENT BASIS BECAUSE OF THE ABOVE NAMED PATIENT'S NEED FOR HALFWAY CARE ON A CONTINUING BASIS FOR THE [...] Instructions Additional Instructions / Restrictions: Discharge 07/18/2023, [facility], intermediate, part B therapies. Discharge Orders/Prescriptions [...] applicable): CC: Dr. Vadim Deras MD ~ [facility] Work Phone: 1(245) 980-889601-16-2024 NoteHNO ID: [id number] Author: NICOLÁS JUNIOR MD Service: ? Author Type: Physician Type: Progress Notes Filed: 07/16/2023 11:16 Note Text: NEUROSURGERY FOLLOW UP OFFICE NOTE Dr. Nicolás Junior MD, FACS Date of visit: July 16, 2023 Patient Name: Mr.Peter Jericho Kumar Date of : 1935 Current Age: [age] year old Sex: male MRN/E# [id number] Last Office Visit: Hospital follow-up CHIEF COMPLAINT: Patient presents with: Established Patient SUBJECTIVE: The patient presents as a hospital follow-up with imaging (CT B) for evaluation. This is an 88-year-old male with a PMHx TIA, HTN, hypercholesterolemia, thrombocytopenia who was seen for consult at [facility] on 06/21/2023 after a fall while [...] well. He is currently in rehab in [place] and hopes to be discharged to a long-term this week. He denies headache, visual changes, [...] Negative for dizziness, seizure (more content not included)...[facility]01-16-2024 NoteHNO ID: [id number] Author: MAIRA ALEXANDER RT(R) Service: Radiology Author [...] 10:14 [facility]01-09-2024 NoteHNO ID: [id number] Author: BONIFACIO VALDEZ MD Service: ? Author [...] encounter, he will contact the office. Questions answered.[facility]12-29-2023 History and physical note Author Mirian Farris [facility] June 28, 2023 5:06pm Note Date/Time June 28, 2023 12:04pm [facility] Medical Records Department [address] [place] [address] History & Physical Exam 06/28/23 1159 MR#: [id number] Acct: [id number] Name: DENIZ KUMAR Rep #:[id number] : 1935 88 From: Mirian Annabelle Kaleigh PCP: Dr. Vadim Dersa MD Status:A DM IN Location: [place] [id number] - General General Date of Admission: 06/27/23 [...] and a SDH. He was transferred to [facility] because of the head bleed. He had [...] Pravastatin. He required no surgical intervention at [facility] He was placed on Keppra for 1 week for seizure prophylaxis. He had an open reduction internal fixation of a left bimalleolar ankle fracture on 06/23/[address] Jiménez. the post operative course was unremarkable. Therapy recommended group home [facility] for strengthening and gait training and on 06/27/23 he was transferred to theTransitional Care Unit at [facility]. Hen is NWB on the LLE and has a walking boot on the LLE. Significant lab at [facility] included mild thrombocytopenia of undeterminedetiology. [facility] Medical History (Updated 06/28/23 @ 16:56 by [...] % (Auto) 49.8, Lymph % (Auto) 27.6, Dade % (Auto) 19.7 H, Eos % (Auto) [...] us and the aspirin was stopped at [facility] for surgery and because of thrombocytopenia. [...] med list. Charges/Coding Visit Charges Inpatient E&M: 91412 SNF Init L2 06/28/23 1706 <Electronically signed by Mirian Farris DO> Cosigner Signature (if applicable): CC: Dr. Mirian Farris DO; Dr. Vadim Deras MD~ Signed [facility] Work Phone: 1(317) 347-139612-29-2023 Progress note Author Demetria Chamberlain [facility] June 28, 2023 11:12am Note Date/Time June 28, 2023 10:51am [facility] Medical Records Department [address] [place] [address] Progress Note - Pharmacy 06/28/23 1047 MR#: [id number] Acct: [id number] Name: DENIZ KUMAR Rep #:[id number] : 1935 88 From: Demetria Chamberlain PCP: Dr. Vadim Deras MD Status:A DM IN Location: [place] [address]- TCU RX Drug Regimen Review Subjective/Objective Subjective/Objective: Subjective: 88 YOM admitted to TCU on 06/27/23 s/p hospitalization from an outside facility. The patient presented to [facility] ED on 06/21/23 secondary to a [...] Cosigner Signature (if applicable): CC: ~ Signed [facility] Work Phone: 1(160) 295-513312-28-2023 NoteHNO ID: [id number] Author: Sultana Nolasco RN Service: Care Management Author Type: Registered Nurse Type: Care Mgt Progress Note Filed: 06/27/2023 3:12 PM Note Text: CARE MANAGEMENT DISCHARGE NOTE SERVICE DATE: June 27, 2023 SERVICE TIME: 3:10 PM Admission Date: 06/21/2023 LOS: 6 days Discharge Arrangement Discharge Arrangement: Group Home Facility Was an expedited discharge program used?: Yes Type: [employer] Arranged Provider Name: [facility] Caregiver Assessment Caregiver is ready, willing and able to meet the patient's needs as recommended by the inter-professional team: Yes Name of Caregiver: Staff at SNF Transportation Arrangements Transportation Arrangements: Ambulance Transportation Agency and Phone #:: [facility] ( [facility] ) [phone] / [phone] Date of Trip: 06/27/23 Time of Trip: 1700 Type of Service: BLS Non-emergency Is Patient Medicaid Pending?: No Was transportation financial coverage discussed with family?: Family Customer Trainer Location: [facility] Destination: [facility] Financial Care Management Responsibility: None Handoff Communication: Additional Information: Pt is D/C today to SNF in [place]. Will transport at 5 pm by cot transport with [facility]. D/C paperwork sent electronically. RN will call nurse to nurse report. Pt is aware of D/C plans and stated he would call his family. SIGNATURE: Sultana Nolasco RN PATIENT NAME: Deniz Kumar DATE: June 27, 2023 TIME: 3:10 PM CONTACT #: [phone]23 Note HNO ID: [id number] Author: Joellen Ramirez Service: Care Management Author Type: ? Type: Care Mgt Progress Note Filed: 06/27/2023 1:23 PM Note Text: [facility] PRECERT NOTE [employer] MEDICARE PPO approved Group Home Facility for [facility] . Precert approved through 07/02/2023. For any additional questions regarding approvals, transport or care management needs, please contact the CM assigned to this patient in the Treatment Team. SIGNATURE: Joellen Dominguez DATE: June 27, 2023 TIME: 1:22 [facility]12-28-2023 NoteHNO ID: [id number] Author: Sultana Nolasco RN Service: Care Management [...] 27, 2023 TIME: 3:07 PM PAGER/CONTACT #: [phone] [place] [address] 06-27-2023 NoteHNO ID: [id number] Author: Liz Naylor APRN.CNP Service: General Surgery [...] vulnerability screens were reviewed by Liz Naylor APRN.CUSTODIAL ENGINEER and results were communicated to surgeon/surgical team who devised the above plan. The plan was communicated to the patient and family/caregivers: Via nursing dc instructions Patient/Caregivers were given educational material on delirium, falls, and mobility. Patient's primary doctor: Vadim Deras MD This plan was communicated to the patient's primary doctor: Through Electronic Health Record (EHR) messaging Disposition: [facility] NoteHNO ID: [id number] Author: Sultana Nolasco RN Service: Care Management Author Type: Registered Nurse Type: Care Mgt Progress Note Filed: 06/27/2023 9:09 AM Note Text: CARE MANAGEMENT PROGRESS NOTE SERVICE DATE: 06/27/2023 SERVICE TIME: 9:07 AM LOS: 6 days Requested 7000 be completed and have requested [facility] to start precert to [facility]. . Pt will need cot transport d/t NWB status of LLE - POD#4 SIGNATURE: Sultana Nolasco RN PATIENT NAME: Deniz Kumar DATE: June 27, 2023 TIME: 9:06 AM PAGER/CONTACT #: [phone] 06-27-2023 NoteHNO ID: [id number] Author: Sultana Nolasco RN Service: Care Management Author Type: Registered Nurse Type: Care Mgt Progress Note Filed: 06/27/2023 8:59 AM Note Text: Attestation signed by Kade Garrett MD at 06/27/2023 9:00 AM SIGNATURE: Kade Garrett MD PATIENT NAME: Deniz Kumar DATE: June 27, 2023 TIME: 9:00 AM Pager: [phone] CARE MANAGEMENT PROGRESS NOTE SERVICE DATE: 06/27/2023 [...] 27, 2023 TIME: 8:58 AM PAGER/CONTACT #: [phone] 06-27-2023 NoteHNO ID: [id number] Author: Bonifacio William PA-C Service: General Surgery Author Type: Physician Protective Signal Superintendent Type: Progress Notes Filed: 06/27/2023 8:04 AM Note Text: Trauma Surgery Progress Note SERVICE DATE: 06/27/2023 Trauma Service Pager: For questions or concerns Mon-Fri 6a-5p please page [phone]. After 5pm and on Weekends and Holidays, please page [phone] if in ICU or [phone] if on [...] (Oral) Resp 18 Ht 182.9 cm (6' 0.01) Wt 96.3 kg (212 lb 4.9 oz) SpO2 92% BMI 28.79 kg/m? O2 Therapy: Room Air IANDO: Date 06/26/23699 - 06/27/23 0659 06/27/23699 - 06/28/23 0659 Shift 7267-9790 7069-6139 9451-7617 24 Hour Total 2243-0004 2038-2830 9800-0360 24 Hour Total INTAKE PO 240 320 [...] were copied from prior (more content not included)...[facility]12-27-2023 NoteHNO ID: [id number] Author: Sultana Nolasco RN Service: Care Management Author Type: Registered Nurse Type: Care Mgt Progress Note Filed: 06/26/2023 3:02 PM Note Text: CARE MANAGEMENT PROGRESS NOTE SERVICE DATE: 06/26/2023 SERVICE TIME: 2:57 PM LOS: 5 days Per pt and sister, Gerri, SNF referrals placed to [facility] TCU and [facility] in [place], yesterday afternoon Today, [facility] has accepted for skilled care. They are FOC. TC to PT/ OT and they are to do re-evals for obtaining auth. CM following. SIGNATURE: Sultana Nolasco RN PATIENT NAME: Deniz Kumar DATE: June 26, 2023 TIME: 2:57 PM PAGER/CONTACT #: [phone] 06-26-2023 NoteHNO ID: [id number] Author: Michelle Andino APRN.CNP Service: General Surgery [...] (Oral) Resp 16 Ht 182.9 cm (6' 0.01) Wt 96.3 kg (212 lb 4.9 oz) SpO2 92% BMI 28.79 kg/m? O2 Therapy: Room Air IANDO: Date 06/25/23699 - 06/26/2365806/26/23699 - 06/27/23 0659 Shift 0711-0859 0532-3872 5202-7338 24 Hour Total 2791-6921 0727-8936 1453-8591 24 Hour Total INTAKE PO 320 320 [...] medically stable for disc (more content not included)...[facility] 06-25-2023 NoteHNO ID: [id number] Author: Sultana Nolasco RN Service: Care Management [...] by: Per Department Practice Potential Transition Plans Group Home Facility/Intermediate Care Facility Advance Directives Current Advance Directive: Health Care Power of Hospital Chief Executive Officer In Chart: Yes Up To Date and Valid: Yes Current Living Arrangements and Support Lives with: Alone Type of Residence: Private Residence (House) Support: Family members How do you manage to accomplish the following: Independent: Ambulation;Bathe/Shower;Dress;Meals/Meal Prep;Going to the bathroom;Medication Management;Transportation to appointments/community Current Services/Equipment Current Post-Acute Service(s): None Discharge Planning Patient Goal(s): Be able to go home, General wellness, Increase strength [place] of Choice Explained: [place] of Choice Given: Yes Level of Care Discussed: Group Home Facility Are you interested in bedside delivery [...] 25, 2023 TIME: 3:26 PM CONTACT #: [phone]12-26-2023 Note HNO ID: [id number] Author: Leah Mcgraw APRN.CNP Service: General Surgery Author Type: Nurse Practitioner Type: Progress Notes Filed: 06/25/2023 8:06 AM Note Text: Trauma Surgery Progress Note SERVICE DATE: 06/25/2023 Trauma Service Pager: For questions or concerns Mon-Fri 6a-5p please page [phone]. After 5pm and on Weekends and Holidays, please page [phone] if in ICU or [phone] if on RNF. SUBJECTIVE: NAEON. Patient reports pain is controlled. He is asking when he can be discharged to SNF - discussed that patient care specialist will see him today and begin process, but that it may take several days. Patient without focal complaints apart from wanting to be discharged. Tolerating diet. OBJECTIVE: Vitals: Temp (24hrs), Av.6 ?C (97.9 ?F), Min:36.4 ?C (97.5 ?F), Max:36.9 ?C (98.4 ?F) BP 156/91 Pulse (!) 58 Temp 36.6 ?C (97.8 ?F) (Oral) Resp 18 Ht 182.9 cm (6' 0.01) Wt 98.3 kg (216 lb 11.4 oz) SpO2 93% BMI 29.38 kg/m? O2 Therapy: Room Air IANDO: Date 06/24/23 07 - 06/25/23 0659 06/25/23 0700 - 06/26/23 0659 Shift 4183-3916 7117-5176 8609-7824 24 Hour Total 3587-3390 2407-0266 9382-3216 24 Hour Total INTAKE Shift Total OUTPUT [...] June 25, 2023. SIGNAT (more content not included)...[facility]12-26-2023 Note HNO ID: [id number] Author: Uche Vasquez MD Service: Orthopaedic Surgery [...] (Oral) Resp 18 Ht 182.9 cm (6' 0.01) Wt 98.3 kg (216 lb 11.4 oz) [...] - PGY 3 6:51 AM 06/25/2023 Pager #[phone] INPATIENT ATTENDING: Bonifacio Chaudhari MD, Urgent High-Risk Geriatric Patient Vulnerabilities: Age >85 and Impaired Mobility Diet: DIET REGULAR Code Status: Full Code Recommendations: Cognition: No Cognitive Impairment bCAM Score (Calc): Negative Delirium Screen Confusion Assessment Method (CAM - ICU Score): Negative Geriatric Consult (Age over 85 or impaired cognition):Consult to Tonal Regulator Palliative Care/Hospice: Consult not required Rehab/Therapy: PT/OT Recommendations: PT: Recommended Discharge Disposition: Subacute/SNF OT: Recommended Discharge Disposition: Subacute/SNF Swallow: Swallow Screening Result - Step 2: PASSED Swallow Screen - Patient Able To Swallow 3 Ounce Cup of Water Without Exhibiting Signs Of Aspiration Speech Recommendations: Speech: Speech Diet: Nutrition: Consult not required Nutrition Recommendations: MST: Total MST Score (Calculated): 0 Application Consultant: Pharmacy: Consult not needed Social Work: NA Anticipated Discharge Disposition: [facility]12-[facility]-2023 NoteHNO ID: [id number] Author: Romeo Sanchez PA-C Service: General Surgery Author Type: Physician Protective Signal Superintendent Type: Progress Notes Filed: 06/24/2023 8:41 AM [...] (Oral) Resp 18 Ht 182.9 cm (6' 0.01) Wt 98.3 kg (216 lb 11.4 oz) SpO2 94% BMI 29.38 kg/m? O2 Therapy: Room Air IANDO: Date 06/23/23699 - 06/24/2365806/24/23699 - 06/25/23 0659 Shift 6726-6657 6316-7093 4771-2033 24 Hour Total 7497-9207 2779-0391 2196-8992 24 Hour Total INTAKE IV 700 100 [...] Ortho PT/OT Dispo Planning: (more content not included)...[facility]12-25-2023 NoteHNO ID: [id number] Author: Bonifacio Valdez MD Service: Orthopaedic Surgery [...] (Oral) Resp 16 Ht 182.9 cm (6' 0.01) Wt 98.1 kg (216 lb 4.3 oz) [...] - PGY 3 5:53 AM 06/24/2023 Pager #[phone] INPATIENT ATTENDING: Bonifacio Chaudhari MD, Urgent High-Risk Geriatric Patient Vulnerabilities: Age >85 and Impaired Mobility Diet: DIET REGULAR Code Status: Full Code Recommendations: Cognition: No Cognitive Impairment bCAM Score (Calc): Negative Delirium Screen Confusion Assessment Method (CAM - ICU Score): Negative Geriatric Consult (Age over 85 or impaired cognition):Consult to Tonal Regulator Palliative Care/Hospice: Consult not required Rehab/Therapy: PT/OT Recommendations: PT: OT: Swallow: Swallow Screening Result - Step 2: PASSED Swallow Screen - Patient Able To Swallow 3 Ounce Cup of Water Without Exhibiting Signs Of Aspiration Speech Recommendations: Speech: Speech Diet: Nutrition: Consult not required Nutrition Recommendations: MST: Total MST Score (Calculated): 0 Application Consultant: Pharmacy: Consult not needed Social Work: NA Anticipated Discharge Disposition: Home with Self Care Attending Note I personally saw and examined the patient. I reviewed the resident's note. I agree with the resident's assessment and plan unless otherwise noted. Signature: Bonifacio Valdez MD Date: 06/24/2023 Time: 10:11 [facility]12-24-2023 NoteHNO ID: [id number] Author: Romeo Sanchez PA-C Service: General Surgery Author Type: Physician Protective Signal Superintendent Type: Progress Notes Filed: 06/23/2023 12:10 PM Note Text: Trauma Surgery Progress Note SERVICE DATE: 06/23/2023 Trauma Service Pager: For questions or concerns Mon-Fri 6a-5p please page [phone]. After 5pm and on Weekends and Holidays, please page [phone] if in ICU or [phone] if on RNF. SUBJECTIVE: NAEON. Patient seen and examined post-operatively. Pain is controlled. Denies [place] or visual changes. No new focal concerns at this time. OBJECTIVE: Vitals: Temp (24hrs), Av.5 ?C (97.7 ?F), Min:36.1 ?C (97 ?F), Max:36.7 ?C (98.1 ?F) BP 148/86 Pulse (!) 56 Temp 36.7 ?C (98.1 ?F) (Oral) Resp 16 Ht 182.9 cm (6' 0.01) Wt 98.1 kg (216 lb 4.3 oz) SpO2 94% BMI 29.33 kg/m? O2 Therapy: Nasal Cannula IANDO: Date 06/22/23699 - 06/23/23 0659 06/23/23 07 - 06/24/23 0659 Shift 9368-9302 9116-5340 2685-2066 24 Hour Total 5010-8482 8340-1052 4958-5171 24 Hour Total INTAKE PO 450 240 200 890 PO 450 240 200 890 IV 246 246 700 700 Volume (mL) (ceFAZolin iv piggyback 2 g in D5W (iso-osmotic) 100 mL (ANCEF)) 100 100 Volume (mL) (lactated ringers iv infusion) 246 246 Volume (mL) (lactated ringers iv infusion) 600 600 Shift Total 696 801 073 5967 700 700 OUTPUT Urine 150 250 400 [...] INPATIENT ATTENDING: Dr. Flores (more content not included)...[facility]12-24-2023 NoteHNO ID: [id number] Author: Sailaja Cao APRN.MANGLE FEEDER Service: ? Author Type: Nurse Dry Plasterer Helper Type: Anesthesia Procedure Notes Filed: 06/23/2023 8:30 AM Note Text: ANESTHESIOLOGY PROCEDURE NOTE Airway General Information Procedure Start Time/Medication Administration: 06/23/2023 8:04 AM Patient location during procedure: OR Timeout Performed Pre-procedure: timeout performed Consent Obtained: Yes Patient identity confirmed: arm band, care sales team manager and patient Staffing Anesthesiologist: Renaldo Mccurdy MD MANGLE FEEDER: Sailaja Cao APRN.MANGLE FEEDER Performed by: KYLIE Indications and Patient Condition Indications for airway management: anesthesia Preoxygenated: yes anesthesia circuit Patient position: sniffing Method: asleep Final Airway Details Final airway type: supraglottic airway Number of attempts at approach: 1 Final Supraglottic Airway: i-gel Size 5 Seal Adequate: yes Failed airway: no Unrecognized esophageal intubation: no Airway not difficult SIGNATURE: Sailaja Cao APRN.MANGLE FEEDER PATIENT NAME: Deniz Kumar DATE: June 23, 2023 TIME: 8:29 AM CSN: [id number]12-24-2023 NoteHNO ID: [id number] Author: Uche Vasquez MD Service: Orthopaedic Surgery [...] (Oral) Resp 18 Ht 182.9 cm (6' 0.01) Wt 98 kg (216 lb 0.8 oz) [...] - PGY 3 6:10 AM 06/23/2023 Pager #[phone] INPATIENT ATTENDING: Bonifacio Chaudhari MD, Urgent High-Risk Geriatric Patient Vulnerabilities: Age >85 and Impaired Mobility Diet: DIET NPO Code Status: Full Code Recommendations: Cognition: No Cognitive Impairment bCAM Score (Calc): Negative Delirium Screen Confusion Assessment Method (CAM - ICU Score): Negative Geriatric Consult (Age over 85 or impaired cognition):Consult to Tonal Regulator Palliative Care/Hospice: Consult not required Rehab/Therapy: PT/OT Recommendations: PT: OT: Swallow: Swallow Screening Result - Step 2: PASSED Swallow Screen - Patient Able To Swallow 3 Ounce Cup of Water Without Exhibiting Signs Of Aspiration Speech Recommendations: Speech: Speech Diet: Nutrition: Consult not required Nutrition Recommendations: MST: Total MST Score (Calculated): 0 Application Consultant: Pharmacy: Consult not needed Social Work: NA Anticipated Discharge Disposition: [facility]12-23-2023 NoteHNO ID: [id number] Author: Jon Almaraz MD Service: Orthopaedic Surgery [...] Jon Almaraz MD Orthopaedic Surgery 06/22/2023 5:19 [facility]12-23-2023 NoteHNO ID: [id number] Author: Sina ([employer])Bonifacio Service: ? Author Type: Mobile Home Installer Type: Plan of Care Filed: 06/22/2023 4:02 PM Note Text: PHARMACY MEDICATION REVIEW Patient Name: Deniz Kumar : 1935 The following medications were updated within the ACQUISITIONS ANALYST medication list: Medications ADDED to ACQUISITIONS ANALYST medication list Medications CHANGED on ACQUISITIONS ANALYST medication list Lactobacillus acidophilus (PROBIOTIC) 10 billion cell cap Patient Yes Yes Sig: Take 1 capsule by mouth. Pt. states he takes occasionally but not daily Melatonin 5 mg cap OTHER Yes Yes Sig: Take 5 mg by mouth daily at bedtime. Pt. states he takes 3mg at bedtime. Medications REMOVED from ACQUISITIONS ANALYST medication list Additional comments: I was able to talk with pt. about his home medications. The pt. verified he takes the 8 medications on the ACQUISITIONS ANALYST list. I have not added or removed any medications from the ACQUISITIONS ANALYST list but I did note a change in how the pt. reports he takes 1 medication. He also told me he uses [facility] for intermediate medications and [facility] for short term medications. Required follow up actions for nursing: Medication history completed by Historian. No nursing follow up required. The below information represents the best possible medication history: Yes Medication history completed by: Mobile Home Installer: Bonifacio Andino ([employer]) Source of history: Patient: Reliability of source: Appears reliable, clearly identified: Medication name, Medication dose, Medication route, and Medication frequency and Pharmacy records: Epic e-script Medication nonadherence identified: No barriers noted Reconciliation completed: No, pharmacist not yet reviewed Patient interested in Bedside Delivery Services or using OP Pharmacy at discharge? Unable to assess Preferred outpatient pharmacy: e- [facility] [place] [address] [address] [facility] - [phone] e- [facility] [address] - [place] [address] [address] [facility] [phone] e- [id number] [place] [phone] - [address] [facility] [phone] [address] Allergies: Clearasil Maximum S* Swelling Prior [...] at bedtime Facility-Administered Medications: None Bonifacio Andino (Construction Rigger) phone [phone] [facility]23 NoteHNO ID: [id number] Author: Lynda Holman PA-C Service: Neurosurgery Author Type: Physician Protective Signal Superintendent Type: Plan of Care Filed: 06/22/2023 9:42 AM Note Text: Neurosurgery Plan of Care Note: Discussed with Dr. Junior. Ok for RNF today. Lynda Holman PA-C Department of Neurosurgery Pager: [phone] June 22, 2023 9:42 [facility]12-23-2023 NoteHNO ID: [id number] Author: Mariposa Cervantes MD Service: General Surgery Author Type: Physician Type: Progress Notes Filed: 06/22/2023 10:18 AM Note Text: Trauma Surgery Progress Note SERVICE DATE: 06/22/2023 Trauma Service Pager: For questions or concerns Mon-Fri 6a-5p please page [phone]. After 5pm and on Weekends and Holidays, please page [phone] if in ICU or [phone] if on RNF. SUBJECTIVE: Acute events overnight. Patient said that he feels better than he did yesterday. Mild headache noted however no vision changes, dizziness, weakness, nausea OBJECTIVE: Vitals: Temp (24hrs), Av.8 ?C (98.3 ?F), Min:36.7 ?C (98.1 ?F), Max:36.9 ?C (98.4 ?F) BP 115/66 Pulse (!) 51 Temp 36.8 ?C (98.2 ?F) (Oral) Resp 10 Ht 182.9 cm (6' 0.01) Wt 98 kg (216 lb 0.8 oz) SpO2 97% BMI 29.30 kg/m? O2 Therapy: Nasal Cannula IANDO: Date 06/21/23 07 - 06/22/23 0659 06/22/23 0700 - 06/23/23 0659 Shift 6866-7206 4598-8516 0331-9705 24 Hour Total 1500-3120 0136-0601 5798-2303 24 Hour Total INTAKE IV 749 749 [...] Recommendations: MST: Total MST Score (Calculated): 0 Application Consultant: Pharmacy: Consult not needed Social Work: NA Anticipated Discharge Disposition: Pending Discussed (more content not included)...[facility]10-02-2023 Miscellaneous Notes* Telephone Encounter - Ilana Burr [...] you. Ilana Burr RN [facility] Instructions* Patient Instructions* Radha Branch PA-C - 02/28/2023 2:46 PM EDT The following instructions are important for you related to your office visit today with the [facility] Surgeons. INSTRUCTIONS FOLLOWING YOUR RECENT HERNIA [...] you should contact our office immediately @ [phone] and ask to be transferred to the General Surgery department. documented in this encounterFort Hamilton Hospital08-31-2023 History of Present illness Narrative* Radha Branch PA-C - 02/28/2023 2:29 PM EDT FOLLOW UP VISIT - HERNIA NAME: Deniz Echavarria [employer] NO.: [id number] DATE OF SERVICE: 02/28/2023 : 1935 REFERRING PHYSICIAN: Vadim Deras MD Deniz is a patient I am following with Dr. Ware for a recurrent umbilical hernia. Dr. Ware performed a repair of recurrent umbilical hernia on 02/21/23 at [facility]. The patient currently notes nomajor complaints. [...] plan. Radha Branch PA-C documented in this encounterFort Hamilton Hospital08-18-2023 History of Present illness Narrative* Vadim [...] Stable. Vadim Deras MD documented in this encounterFort Hamilton Hospital07-28-2023 History of Present illness Narrative* Su [...] for repair of recurrence umbilical hernia at [facility]. I spent a total of 21 minutes on the date of the service which included preparing to see the patient, [id number] patient care, obtaining oral medical history from the patient in this encounter, performing a medically appropriate examination, counseling and educating the patient/family/caregiver, and ordering and/or scheduling of medications/tests/procedures, and completing appropriate medical documentation. Su Ware MD documented in this encounterFort Hamilton Hospital07-28-2023 Nurse Note* AmolRosaESTELA - 01/25/2023 3:04 [...] 2003 Rosa Steiner LPN documented in this encounterFort Hamilton Hospital07-07-2023 History of Present illness Narrative* Lynda Myeers PA-C - 01/04/2023 9:07 AM EDT Images from the original note were not included. [facility] ESTABLISHED PATIENT CLINIC NOTE [...] and Family: Three times a week Attends Religion Services: Never Active Member of Clubs or [...] Cardura > 1 year Appt w/ B. Meyers, MPAS, MT, PA-C for annual follow-up and refills. [...] Plan: Appointment with Lynda. documented in this encounterFort Hamilton Hospital03-28-2023 Instructions* Patient Instructions* Hyun Major APRN.CNP - 09/25/2022 1:38 PM EDT Appears to be subconjunctival hemorrhage - however would like to have you be re- evaluated tomorrow with Dr. Rivera Appointment at [facility] 09.26.2022 @ 1:50 PM Go to ER for any sudden loss of vision or severe vision changes. documented in this encounterFort Hamilton Hospital03-28-2023 History of Present illness Narrative* Shannon Fuentes LPN - 09/25/2022 1:35 PM EDT Phone call placed [facility] apoke to Brenda ramirez scheduled 09/25/2022 at 1:50, patient notified with visit. Shannon Fuentes LPN * Hyun Major APRN.CNP - 09/25/2022 1:28 PM EDT Images from the original note were not included. Subjective The history is provided by the patient. No language and literature division chair was used. HPI Deniz Kumar is a [...] have confirmed and edited as necessary, the [facility] Review of Systems Constitutional: Negative for [...] tomorrow at [address] Rivera at [facility], who is his established opthamologist Diagnosis and treatment plan were discussed and questions were answered to the patient's satisfaction. Pt acknowledged understanding of concepts and follow up plan. Specific signs and symptoms that would indicate the need for higher level of care were discussed indetail warranting prompt ER evaluation. 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 [facility] NEW CONSULT PATIENT CLINIC [...] and Family: Three times a week Attends Religion Services: Never Active Member of Clubs or [...] > 3 mo. Appt w/ B. PETER Meyers MT, PA-C I spent a total of 40 minutes on the date of the service which included preparing to see the patient, face to face patient care, completing clinical documentation, obtaining and/or reviewing separately obtained history, performing a medically appropriate examination, counseling and educating the pat ient/family/caregiver, ordering medications, tests, or procedures, and care coordination. PETER Tinoco MT, PA-C * Madison aCmejo LPN - 08/31/2022 8:12 AM EST Verified [...] Plan: Appointment with Lynda. documented in this encounterFort Hamilton Hospital02-16-2023 Instructions* Patient Instructions* Vadim Deras MD - 08/16/2022 8:40 AM EST Have you ever planned for future healthcare decisions with a power of civil rights attorney, living will, or advance directives? Yes. [...] schedule this for you. documented in this encounterFort Hamilton Hospital02-16-2023 History of Present illness Narrative* Vadim Deras MD - 08/16/2022 8:26 AM EST This note was created using [employer]. Subjective Deniz Kumar is a 87 year [...] with sexual function:More than half the days [place] anxious, stressed, angry, irritable, lonely, isolated, or [...] pharmacy - Depression screening documented in this encounterFort Hamilton Hospital02-03-2023 Miscellaneous Notes* Telephone Encounter - Cary [...] you. Cary Andre LPN documented in this encounterFort Hamilton Hospital11-05-2022 Miscellaneous Notes* Telephone Encounter - Angélica San MA - 05/05/2022 2:25 PM EDT Pt was notified of the results. Pt verbalized understanding. Angélica San MA * Telephone Encounter - Valdez Arellano APRN.CNP - 05/05/2022 8:17 AM EDT Please notify that covid. Continue with plan of care as discussed during visit. documented in this encounterFort Hamilton Hospital11-04-2022 History of Present illness Narrative* Susan Corado PA-C - 05/04/2022 9:49 AM EDT This note was created using [employer]. Subjective Deniz Kumar is a 86 year [...] COVID-19 Susan Corado PA-C documented in this encounterFort Hamilton Hospital09-05-2022 History of Present illness Narrative* Haylie Chin APRN.[facility] - 03/05/2022 9:38 AM EDT Images from the original note were not included. Subjective She came in with complaints of some type of pimple on the right side of his groin he said. It has been about 4 days. Does not seem to be getting worse. Denies any fevers nausea vomiting. Denies any other symptoms. The history is provided by the patient. No language and literature division chair was used. Review of Systems Constitutional: Negative. Skin: Negative. Objective Physical Exam Exam conducted with a curing finisher present. Constitutional: Appearance: Normal appearance. Pulmonary: Effort: [...] okay with this care plan. Haylie Chin APRN.KEVYN documented in this encounterFort Hamilton Hospital08-11-2022 Instructions* Patient Instructions* Vadim Deras MD - 02/08/2022 9:26 AM EDT FASTING BLOOD WORK BEFORE August APPOINTMENT. COPY OF ADVANCED DIRECTIVE FOR YOUR RECORD. documented in this encounterFort Hamilton Hospital08-11-2022 History of Present illness Narrative* Vadim Deras MD - 02/08/2022 9:14 AM EDT This note was created using [employer]. Subjective Deniz Kumar is a 86 year [...] BASIC Vadim Deras MD documented in this encounterFort Hamilton Hospital07-14-2022 Miscellaneous Notes* Telephone Encounter - Cee [...] patient. Cee Alonzo Pss documented in this encounterFort Hamilton Hospital06-27-2022 History of Present illness Narrative* Su [...] signs/symptoms Su Ware MD documented in this encounterFort Hamilton Hospital04-03-2022 History of Present illness Narrative* Su Ware MD - 10/01/2021 5:38 PM EDT FOLLOW UP VISIT NAME: Deniz Echavarria [facility] NO.: [id number] DATE OF SERVICE: 09/29/2021 : 1935 REFERRING [...] others. Su Ware MD documented in this encounterFort Hamilton Hospital02-22-2008 History of Past illness Narrative* Problem Noted Date Resolved Date Dizziness and giddiness 08/22/2007 07/12/19 17 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 02/14/2007 07/12/2016 documented as of this encounter (statuses as of 10/01/2021) [address]-2008 History of Past illness Narrative* Problem Noted Date Resolved Date Dizziness and giddiness 08/22/2007 07/12/19 17 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 02/14/2007 07/12/2016 documented as of this encounter (statuses as of 12/30/2021) [address]2008 History of Past illness Narrative* Problem Noted Date Resolved Date Dizziness and giddiness 08/22/2007 07/12/19 17 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 02/14/2007 07/12/2016 documented as of this encounter (statuses as of 01/11/2022) [address]2008 History of Past illness Narrative* Problem Noted Date Resolved Date Dizziness and giddiness 08/22/2007 07/12/19 17 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 02/14/2007 07/12/2016 documented as of this encounter (statuses as of 02/08/2022) [address]-2008 History of Past illness Narrative* Problem Noted Date Resolved Date Dizziness and giddiness 08/22/2007 07/12/19 17 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 02/14/2007 07/12/2016 documented as of this encounter (statuses as of 03/05/2022) [address]2008 History of Past illness Narrative* Problem Noted Date Resolved Date Dizziness and giddiness 08/22/2007 07/12/19 17 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 02/14/2007 07/12/2016 documented as of this encounter (statuses as of 05/04/2022) [address]-2008 History of Past illness Narrative* Problem Noted Date Resolved Date Dizziness and giddiness 08/22/2007 07/12/19 17 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 02/14/2007 07/12/2016 documented as of this encounter (statuses as of 05/05/2022) [address]2008 History of Past illness Narrative* Problem Noted Date Resolved Date Dizziness and giddiness 08/22/2007 07/12/19 17 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 02/14/2007 07/12/2016 documented as of this encounter (statuses as of 08/06/2022) [address] History of Past illness Narrative* Problem Noted Date Resolved Date Dizziness and giddiness 08/22/2007 07/12/19 17 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 02/14/2007 07/12/2016 documented as of this encounter (statuses as of 08/16/2022) [address]2008 History of Past illness Narrative* Problem Noted Date Resolved Date Dizziness and giddiness 08/22/2007 07/12/19 17 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 02/14/2007 07/12/2016 documented as of this encounter (statuses as of 08/31/2022) [address]2008 History of Past illness Narrative* Problem Noted Date Resolved Date Dizziness and giddiness 08/22/2007 07/12/19 17 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 02/14/2007 07/12/2016 documented as of this encounter (statuses as of 09/25/2022) [address]2008 History of Past illness Narrative* Problem Noted Date Resolved Date Dizziness and giddiness 08/22/2007 01/12/20 17 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 02/14/2007 07/12/2016 documented as of this encounter (statuses as of 01/04/2023) [address]-2008 History of Past illness Narrative* Problem Noted Date Diagnosed Date Resolved Date Dizziness and giddiness 08/22/200707/01 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 02/14/2007 07/12/2016 documented as of this encounter (statuses as of 01/27/2023) [address]2008 History of Past illness Narrative* Problem Noted Date Diagnosed Date Resolved Date Dizziness and giddiness 08/22/200707/01 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 02/14/2007 07/12/2016 documented as of this encounter (statuses as of 02/15/2023) [address]2008 History of Past illness Narrative* Problem Noted Date Diagnosed Date Resolved Date Dizziness and giddiness 08/22/200707/01 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 02/14/2007 07/12/2016 documented as of this encounter (statuses as of 03/01/2023) [address]2008 History of Past illness Narrative* Problem Noted Date Diagnosed Date Resolved Date Dizziness and giddiness 08/22/200707/01 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 02/14/2007 07/12/2016 documented as of this encounter (statuses as of 04/02/2023) [address]2008 History of Past illness Narrative* Problem Noted Date Diagnosed Date Resolved Date Dizziness and giddiness 08/22/200707/01 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 02/14/2007 07/12/2016 documented as of this encounter (statuses as of 08/03/2023) [address]2008 History of Past illness Narrative* Problem Noted Date Diagnosed Date Resolved Date Dizziness and giddiness 08/22/200707/01 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 02/14/2007 07/12/2016 documented as of this encounter (statuses as of 08/06/2023) [place] [address] History of Past illness Narrative* Problem Noted Date Diagnosed Date Resolved Date Dizziness and giddiness 08/22/200707/01 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 02/14/2007 07/12/2016 documented as of this encounter (statuses as of 08/13/2023) [address]2008 History of Past illness Narrative* Problem Noted Date Diagnosed Date Resolved Date Dizziness and giddiness 08/22/200707/01 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 02/14/2007 07/12/2016 documented as of this encounter (statuses as of 08/15/2023) [facility] Narrative* Problem Noted Date Diagnosed Date Resolved Date Dizziness and giddiness 08/22/200707/01 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 02/14/2007 07/12/2016 documented as of this encounter (statuses as of 08/23/2023) [address]2008 History of Past illness Narrative* Problem Noted Date Diagnosed Date Resolved Date Dizziness and giddiness 08/22/200707/01 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 02/14/2007 07/12/2016 documented as of this encounter (statuses as of 09/09/2023) [address]2008 History of Past illness Narrative* Problem Noted Date Diagnosed Date Resolved Date Dizziness and giddiness 08/22/200707/01 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 02/14/2007 07/12/2016 documented as of this encounter (statuses as of 10/15/2023) [facility] note* Diagnosis Status post umbilical hernia repair, follow-up exam- Primary Follow-up examination, following other surgery [facility] Diagnosis Extrusion of suture, initial encounter- Primary [facility]* Diagnosis Benign prostatic hyperplasia with urinary obstruction Essential hypertension Unspecified essential hypertension [facility]* Diagnosis Myalgia- Primary Mylagia and myositis, unspecified Need for vaccination Need for prophylactic vaccination and inoculation against unspecified single disease Essential hypertension Unspecified essential hypertension Hyperlipidemia, unspecified hyperlipidemia type [facility]* Diagnosis Skin infection- Primary Unspecified local infection of skin and subcutaneous tissue documented in this encounter [facility] note* Diagnosis Exposure to COVID-19 virus- Primary [facility]* Diagnosis Benign prostatic hyperplasia with urinary obstruction Essential hypertension Unspecified essential hypertension [facility]* Diagnosis Medicare annual wellness visit, subsequent- Primary Routine general medical examination at a [facility] Thrombocytopenia, unspecified (HCC) Thrombocytopenia, unspecified Essential hypertension Unspecified essential hypertension Benign prostatic hyperplasia with urinary obstruction Hyperlipidemia, unspecified hyperlipidemia type Erectile dysfunction, unspecified erectile dysfunction type [facility]* Diagnosis OAB (overactive bladder)- Primary Hypertonicity of bladder Erectile dysfunction, unspecified erectile dysfunction type Benign prostatic hyperplasia with urinary obstruction [facility]* Diagnosis Eye problem- Primary Other eye problems [facility]* Diagnosis OAB (overactive bladder)- Primary 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 [facility]* Diagnosis Recurrent umbilical hernia- Primary Umbilical hernia without mention of obstruction or gangrene [facility]* Diagnosis Benign prostatic hyperplasia with urinary obstruction- Primary Essential hypertension Unspecified essential hypertension Hyperlipidemia, unspecified hyperlipidemia type Hypoalbuminemia Other disorders of plasma protein metabolism Thrombocytopenia, unspecified (HCC) Thrombocytopenia, unspecified Recurrent umbilical hernia Umbilical hernia without mention of obstruction or gangrene [facility]* Diagnosis S/P hernia repair- Primary Other postprocedural status [facility]* Diagnosis Hyperlipidemia, unspecified hyperlipidemia type documented [facility] this encounter [facility] noteNo assessment information availableWMercy Health St[facility] Work Phone: Evaluation note* Diagnosis Onset Date Resolution Status Adverse reaction to drug natalia t primarily affects musculoskeletal system acute Bimalleolar fracture of left ankle acute BPH (benign prostatic hyperplasia) acute Debility acute History of open reduction an d internal fixation (ORIF) procedure acute Hypercholesterolemia acute Overactive bladder acute Thrombocytopenia acute Hypertension chronic [facility] Work Phone: Evaluation note* Diagnosis SAH (subarachnoid hemorrhage) (HCC) Subarachnoid hemorrhage [facility]* Diagnosis Closed bimalleolar fracture of left ankle with routine healing, subsequent encounter- Primary documented in this encounter [facility] note* Diagnosis Onset Date Resolution Status BPH (benign prostatic hyperplasia) acute Debility acute History of open reduction an d internal fixation (ORIF) procedure acute Hypertension chronic Adverse reaction to drug natalia t primarily affects musculoskeletal system resolved Bimalleolar fracture of left ankle resolved Hypercholesterolemia resolve d Overactive bladder resolved Thrombocytopenia resolved [facility] Work Phone: Evaluation note* Diagnosis Essential hypertension- Primary Unspecified essential hypertension History of TIA (transient ischemic attack) Transient ischemic attack (TIA), and cerebral infarction without residual deficits Gait abnormality Abnormality of gait Hyperlipidemia, unspecified hyperlipidemia type Thrombocytopenia, unspecified (HCC) Thrombocytopenia, unspecified Hypoalbuminemia Other disorders of plasma protein metabolism [facility]* Diagnosis Essential hypertension Unspecified essential hypertension Benign prostatic hyperplasia with urinary obstruction [facility]* Diagnosis Gait abnormality- Primary Abnormality of gait Leg weakness, bilateral Other musculoskeletal symptoms referable to limbs Essential hypertension Unspecified essential hypertension [facility]* Diagnosis Leg weakness, bilateral- Primary Other musculoskeletal symptoms referable to limbs Gait abnormality Abnormality of gait Hyperlipidemia, unspecified hyperlipidemia type Essential hypertension Unspecified essential hypertension Urgency of urination Benign prostatic hyperplasia with urinary obstruction [facility]* Diagnosis Urgency of urination Benign prostatic hyperplasia with urinary obstruction [facility]* Diagnosis Thrombocytopenia, unspecified (HCC)- Primary Thrombocytopenia, unspecified Essential hypertension Unspecified essential hypertension [facility]* Diagnosis Medicare annual wellness [...] of leg Edema [facility]* Diagnosis Ataxia- Primary Lack of [...] in cervical region [facility] Ataxia Lack of coordination Tremor Abnormal involuntary movements Spinal stenosis in cervical region Spinal stenosis of cervical region Spinal stenosis in cervical region Spinal stenosis of lumbar region without neurogenic claudication Spinal stenosis, lumbar region, without neurogenic claudication [facility]* Diagnosis Cervical stenosis of spine- Primary Spinal stenosis in cervical region Spinal stenosis of lumbar region, unspecified whether neurogenic claudication present [facility]* Diagnosis Benign prostatic hyperplasia with urinary obstruction Urgency of urination [facility]* Diagnosis Gait abnormality- Primary Abnormality of gait Leg weakness, bilateral Other musculoskeletal symptoms referable to limbs Speech disturbance, unspecified type Ataxia Lack of coordination History of subdural hematoma Spinal stenosis in cervical region Spinal stenosis of lumbar region without neurogenic claudication Spinal stenosis, lumbar region, without neurogenic claudication [facility]* Diagnosis Parkinson's disease, unspecified whether [...] referable to limbs [facility]* Diagnosis Overactive bladder- Primary Hypertonicity of bladder Benign prostatic hyperplasia with urinary frequency Nocturia [facility]* Diagnosis BPH with urinary obstruction- Primary Hypertrophy of prostate with urinary obstruction and other lower urinary tract symptoms (LUTS) [facility] Additional Instructions Return to the emergency department with decreased mental status, new or worsening symptoms.[facility] Work Phone: Reason for referral (narrative)* Diagnostic Procedure Only (Routine) - Pending Review Specialty Diagnoses / Procedures Referred By Contac t Referred To Contact XR IMAGING Diagnoses Closed bimalleolar fracture of left ankle with routine healing, subsequent encounter Procedures XR ANKLE GENERAL 3V AP/LAT/OBL LEFT RADEX ANKLE COMPLETE MINIMUM 3 VIEWS Bonifacio Valdez MD [address] [address] [place] [id number] Referral ID Status Reason Start Date Expiration Date Visits Requested Visits Authorized [id number] Pending Review Auto-Generat ed Referral 08/06/2023 09/03/2024 1 1 [facility] for referral (narrative)No reason for referral information availableWMercy [facility] Work Phone: Summary Purpose Family History No Family History Records Found Relationship Condition Age at Onset Recorded Date/T archana father Malignant neoplasm Unknown mother Malignant neoplasm Unknown sister Hypertension Unknown Hyperlipidemia Unknown Advance Directives No Advanced Directives Records FoundDocuments on File Type Date Recorded Patient Nursing Educator Expl anation Advance Directive(s) 03/01/2023 9:16 AM Date Activated Date Inactivated Comments 06/21/2023 7:56 PM 06/27/2023 9:05 PM Question Answer Comments Full Code Order Discussed With: Patient Documents on File Type Date Recorded Patient Nursing Educator Expl anation Advance Directive(s) 09/21/2021 10:36 AM Advance Directive Response Recorded Date/ Time Living Will Yes June 21 023 12:54pm Power of Hospital Chief Executive Officer Yes June 21, 2023 12:54pm Name of Medical Power of Hospital Chief Executive Officer Gerri Barnes June 21, 2023 12:54pm Advance Directive Response Recorded Date/ Time Name of Medical Power of Hospital Chief Executive Officer Gerri Barnes June 21, 2023 12:54pm Name of Medical Power of Hospital Chief Executive Officer heidi Penny July 03, 2023 4:56pm Living Will Yes July 03 4:56pm Power of Hospital Chief Executive Officer Yes July 03 4:56pm Documents on File Type Date Recorded Patient Nursing Educator Expl anation Advance Directive(s) 03/01/2023 9:16 AM [...] Do you have a Healthcare Power of Hospital Chief Executive Officer? No November 30, 2024 2:11pm Reason for Referral Specialty Diagnoses / Procedures Referred By Contac t Referred To Contact Urology Diagnoses Benign prostatic hyperplasia with urinary obstruction Erectile dysfunction, unspecified erectile dysfunction type Procedures CONSULT TO UROLOGY OFFICE/OUTPATIENT [facility] 60-74 MINUTES Vadim Deras MD [address] [place] [address] Referral ID Status Reason Start Date Expiration Date Visits Requested Visits Authorized [id number] Authorized PCP Requested Referral 08/16/2022 08/16/2023 1 1 Specialty Diagnoses / Procedures Referred By Contac t Referred To Contact CT IMAGING Diagnoses SAH (subarachnoid hemorrhage) (HCC) Procedures CT BRAIN WO IVCON CT HEAD/BRAIN W/O CONTRAST MATERIAL Rosanne Flannery, SENIOR INTERNAL AUDITOR.CUSTODIAL ENGINEER [address] [place] [address] [place] [address] Referral ID Status Reason Start Date Expiration Date V isits Requested Visits Authorized [id number] Closed Auto-Generate d Referral 07/01/2023 06/30/2024 1 1 Specialty Diagnoses / Procedures Referred By Contac t Referred To Contact Neurology Diagnoses Gait abnormality Leg weakness, bilateral Procedures CONSULT TO NEUROLOGY OFFICE/OUTPATIENT [facility] 60 MINUTES Vadim Deras MD [address] [place] [address] Referral ID Status Reason Start Date Expiration Date Visits Requested Visits Authorized [id number] Pending Review PCP Requested Referral 10/14/2023 10/13/2024 1 1 Specialty Diagnoses / Procedures Referred By Contac t Referred To Contact MR IMAGING Diagnoses Spinal stenosis of lumbar region without neurogenic claudication Procedures MRI LUMBAR SPINE WO IVCON MRI SPINAL CANAL LUMBAR W/O CONTRAST MATERIAL Bonifacio Ledbetter Jr., MD [address] [facility] [address] [place] [place] [id number] [place] [address] Referral ID Status Reason Start Date Expiration Date Visits Requested Visits Authorized [id number] Authorized Auto-Generat ed Referral 03/13/2024 04/12/2025 1 1 Specialty Diagnoses / Procedures Referred By Contac t Referred To Contact MR IMAGING Diagnoses Tremor Spinal stenosis in cervical region Spinal stenosis of cervical region Procedures MRI CERVICAL SPINE WO IVCON MRI SPINAL CANAL CERVICAL W/O CONTRAST MATRL Bonifacio Ledbetter Jr., MD [facility] [facility] [address] [place] [address] [place] [address] Referral ID Status Reason Start Date Expiration Date Visits Requested Visits Authorized [id number] Authorized Auto-Generat ed Referral 03/13/2024 04/12/2025 1 1 Specialty Diagnoses / Procedures Referred By Contac t Referred To Contact MR IMAGING Diagnoses Ataxia Procedures MRI BRAIN WO IVCON MRI BRAIN BRAIN STEM W/O CONTRAST MATERIAL Bonifacio Ledbetter Jr., MD [facility] [facility] [address] [place] [id number] [place] [address] Referral ID Status Reason Start Date Expiration Date Visits Requested Visits Authorized [id number] Authorized Auto-Generat ed Referral 03/13/2024 04/12/2025 1 1 Referral ID Status Reason Start Date Expiration Date V isits Requested Visits Authorized [id number] Closed Auto-Generate d Referral 03/13/2024 04/12/2025 1 1 Referral ID Status Reason Start Date Expiration Date V isits Requested Visits Authorized [id number] Closed Auto-Generate d Referral 03/13/2024 04/12/2025 1 1 Referral ID Status Reason Start Date Expiration Date V isits Requested Visits Authorized [id number] Closed Auto-Generate d Referral 03/13/2024 04/12/2025 1 1 Specialty Diagnoses / Procedures Referred By Contac t Referred To Contact [facility] [place] Diagnoses Cervical stenosis of spine Spinal stenosis of lumbar region, unspecified whether neurogenic claudication present Procedures CONSULT TO [facility] OFFICE/OUTPATIENT [facility] 60 MINUTES Bonifacio Ledbetter Jr., MD [address] [facility] [address] [place] [address] Referral ID Status Reason Start Date Expiration Date Visits Requested Visits Authorized [id number] Pending Review PCP Requested Referral 4 04/12/2025 [...] ORIF LEFT SUBDURAL HEMATOMA, LEFT ANKLE ORIF HALFWAY LABWORK LABWORK Reason for Visit BPH (benign prostati c hyperplasia) Debility History of open reduction and internal fixation (ORIF) procedure Hypertension Adverse reaction to drug that primarily affects musculoskeletal system Bimalleolar fracture of left ankle Hypercholesterolemia Overactive bladder Thrombocytopenia Chief Complaint fall LEFT SUBDURAL HEMATOMA, LEFT ANKLE ORIF LEFT SUBDURAL HEMATOMA, LEFT ANKLE ORIF HALFWAY LABWORK HALFWAY LAB WORK LABWORK Reason for Visit BPH [...] section and content) DATE CREATED AUTHOR 11/05/2018 [facility] DATE CREATED AUTHOR AUTHOR'S ORGANIZ ATION 11/22/2018 [facility] DATE CREATED AUTHOR AUTHOR'S ORGANIZ ATION 04/14/2024 [facility] DATE CREATED AUTHOR AUTHOR'S ORGANIZ ATION 10/20/2024 [facility] DATE CREATED AUTHOR AUTHOR'S ORGANIZ ATION 12/11/2024 [facility] DATE CREATED AUTHOR AUTHOR'S ORGANIZ ATION 02/12/2025 [facility] Source Comments (unrecognize d section and content) In the event this informatio n is protected by the Federal Confidentiality of Alcohol and Drug Abuse Patient Records regulations: The Federal rules restrict any use of the information to criminally investigate or prosecute any alcohol or drug abuse patient.[facility] the event this information is protected by the Federal Confidentiality of Alcohol and Drug Abuse Patient Records regulations: The Federal rules restrict any use of the information to criminally investigate or prosecute any alcohol or drug abuse patient.[facility] HospitalIn the event this information is protected by the Federal Confidentiality of Alcohol and Drug Abuse Patient Records regulations: The Federal rules restrict any use of the information to criminally investigate or prosecute any alcohol or drug abuse patient.[facility] HospitalIn the event this information is protected by the Federal Confidentiality of Alcohol and Drug Abuse Patient Records regulations: The Federal rules restrict any use of the information to criminally investigate or prosecute any alcohol or drug abuse patient.[facility] HospitalIn the event this information is protected by the Federal Confidentiality of Alcohol and Drug Abuse Patient Records regulations: The Federal rules restrict any use of the information to criminally investigate or prosecute any alcohol or drug abuse patient.[facility] HospitalIn the event this information is protected by the Federal Confidentiality of Alcohol and Drug Abuse Patient Records regulations: The Federal rules restrict any use of the information to criminally investigate or prosecute any alcohol or drug abuse patient.[facility] HospitalIn the event this information is protected by the Federal Confidentiality of Alcohol and Drug Abuse Patient Records regulations: The Federal rules restrict any use of the information to criminally investigate or prosecute any alcohol or drug abuse patient.[facility] HospitalIn the event this information is protected by the Federal Confidentiality of Alcohol and Drug Abuse Patient Records regulations: The Federal rules restrict any use of the information to criminally investigate or prosecute any alcohol or drug abuse patient.[facility] HospitalIn the event this information is protected by the Federal Confidentiality of Alcohol and Drug Abuse Patient Records regulations: The Federal rules restrict any use of the information to criminally investigate or prosecute any alcohol or drug abuse patient.[facility] HospitalIn the event this information is protected by the Federal Confidentiality of Alcohol and Drug Abuse Patient Records regulations: The Federal rules restrict any use of the information to criminally investigate or prosecute any alcohol or drug abuse patient.[facility] HospitalIn the event this information is protected by the Federal Confidentiality of Alcohol and Drug Abuse Patient Records regulations: The Federal rules restrict any use of the information to criminally investigate or prosecute any alcohol or drug abuse patient.[facility] HospitalIn the event this information is protected by the Federal Confidentiality of Alcohol and Drug Abuse Patient Records regulations: The Federal rules restrict any use of the information to criminally investigate or prosecute any alcohol or drug abuse patient.[facility] HospitalIn the event this information is protected by the Federal Confidentiality of Alcohol and Drug Abuse Patient Records regulations: The Federal rules restrict any use of the information to criminally investigate or prosecute any alcohol or drug abuse patient.[facility] HospitalIn the event this information is protected by the Federal Confidentiality of Alcohol and Drug Abuse Patient Records regulations: The Federal rules restrict any use of the information to criminally investigate or prosecute any alcohol or drug abuse patient.[facility] HospitalIn the event this information is protected by the Federal Confidentiality of Alcohol and Drug Abuse Patient Records regulations: The Federal rules restrict any use of the information to criminally investigate or prosecute any alcohol or drug abuse patient.[facility] HospitalIn the event this information is protected by the Federal Confidentiality of Alcohol and Drug Abuse Patient Records regulations: The Federal rules restrict any use of the information to criminally investigate or prosecute any alcohol or drug abuse patient.[facility] HospitalIn the event this information is protected by the Federal Confidentiality of Alcohol and Drug Abuse Patient Records regulations: The Federal rules restrict any use of the information to criminally investigate or prosecute any alcohol or drug abuse patient.[facility] HospitalIn the event this information is protected by the Federal Confidentiality of Alcohol and Drug Abuse Patient Records regulations: The Federal rules restrict any use of the information to criminally investigate or prosecute any alcohol or drug abuse patient.[facility] HospitalIn the event this information is protected by the Federal Confidentiality of Alcohol and Drug Abuse Patient Records regulations: The Federal rules restrict any use of the information to criminally investigate or prosecute any alcohol or drug abuse patient.[facility] HospitalIn the event this information is protected by the Federal Confidentiality of Alcohol and Drug Abuse Patient Records regulations: The Federal rules restrict any use of the information to criminally investigate or prosecute any alcohol or drug abuse patient.[facility] HospitalIn the event this information is protected by the Federal Confidentiality of Alcohol and Drug Abuse Patient Records regulations: The Federal rules restrict any use of the information to criminally investigate or prosecute any alcohol or drug abuse patient.[facility] HospitalIn the event this information is protected by the Federal Confidentiality of Alcohol and Drug Abuse Patient Records regulations: The Federal rules restrict any use of the information to criminally investigate or prosecute any alcohol or drug abuse patient.[facility] HospitalIn the event this information is protected by the Federal Confidentiality of Alcohol and Drug Abuse Patient Records regulations: The Federal rules restrict any use of the information to criminally investigate or prosecute any alcohol or drug abuse patient.[facility] HospitalIn the event this information is protected by the Federal Confidentiality of Alcohol and Drug Abuse Patient Records regulations: The Federal rules restrict any use of the information to criminally investigate or prosecute any alcohol or drug abuse patient.[facility] HospitalIn the event this information is protected by the Federal Confidentiality of Alcohol and Drug Abuse Patient Records regulations: The Federal rules restrict any use of the information to criminally investigate or prosecute any alcohol or drug abuse patient.[facility] HospitalIn the event this information is protected by the Federal Confidentiality of Alcohol and Drug Abuse Patient Records regulations: The Federal rules restrict any use of the information to criminally investigate or prosecute any alcohol or drug abuse patient.[facility] HospitalIn the event this information is protected by the Federal Confidentiality of Alcohol and Drug Abuse Patient Records regulations: The Federal rules restrict any use of the information to criminally investigate or prosecute any alcohol or drug abuse patient.[facility] HospitalIn the event this information is protected by the Federal Confidentiality of Alcohol and Drug Abuse Patient Records regulations: The Federal rules restrict any use of the information to criminally investigate or prosecute any alcohol or drug abuse patient.[facility] HospitalIn the event this information is protected by the Federal Confidentiality of Alcohol and Drug Abuse Patient Records regulations: The Federal rules restrict any use of the information to criminally investigate or prosecute any alcohol or drug abuse patient.[facility] HospitalIn the event this information is protected by the Federal Confidentiality of Alcohol and Drug Abuse Patient Records regulations: The Federal rules restrict any use of the information to criminally investigate or prosecute any alcohol or drug abuse patient.[facility] HospitalIn the event this information is protected by the Federal Confidentiality of Alcohol and Drug Abuse Patient Records regulations: The Federal rules restrict any use of the information to criminally investigate or prosecute any alcohol or drug abuse patient.[facility] HospitalIn the event this information is protected by the Federal Confidentiality of Alcohol and Drug Abuse Patient Records regulations: The Federal rules restrict any use of the information to criminally investigate or prosecute any alcohol or drug abuse patient.[facility] HospitalIn the event this information is protected by the Federal Confidentiality of Alcohol and Drug Abuse Patient Records regulations: The Federal rules restrict any use of the information to criminally investigate or prosecute any alcohol or drug abuse patient.[facility] HospitalIn the event this information is protected by the Federal Confidentiality of Alcohol and Drug Abuse Patient Records regulations: The Federal rules restrict any use of the information to criminally investigate or prosecute any alcohol or drug abuse patient.[facility] HospitalIn the event this information is protected by the Federal Confidentiality of Alcohol and Drug Abuse Patient Records regulations: The Federal rules restrict any use of the information to criminally investigate or prosecute any alcohol or drug abuse patient.[facility] HospitalIn the event this information is protected by the Federal Confidentiality of Alcohol and Drug Abuse Patient Records regulations: The Federal rules restrict any use of the information to criminally investigate or prosecute any alcohol or drug abuse patient.[facility] HospitalIn the event this information is protected by the Federal Confidentiality of Alcohol and Drug Abuse Patient Records regulations: The Federal rules restrict any use of the information to criminally investigate or prosecute any alcohol or drug abuse patient.[facility] HospitalIn the event this information is protected by the Federal Confidentiality of Alcohol and Drug Abuse Patient Records regulations: The Federal rules restrict any use of the information to criminally investigate or prosecute any alcohol or drug abuse patient.[facility] HospitalIn the event this information is protected by the Federal Confidentiality of Alcohol and Drug Abuse Patient Records regulations: The Federal rules restrict any use of the information to criminally investigate or prosecute any alcohol or drug abuse patient.[facility] HospitalIn the event this information is protected by the Federal Confidentiality of Alcohol and Drug Abuse Patient Records regulations: The Federal rules restrict any use of the information to criminally investigate or prosecute any alcohol or drug abuse patient.[facility] HospitalIn the event this information is protected by the Federal Confidentiality of Alcohol and Drug Abuse Patient Records regulations: The Federal rules restrict any use of the information to criminally investigate or prosecute any alcohol or drug abuse patient.[facility] HospitalIn the event this information is protected by the Federal Confidentiality of Alcohol and Drug Abuse Patient Records regulations: The Federal rules restrict any use of the information to criminally investigate or prosecute any alcohol or drug abuse patient.[facility] HospitalIn the event this information is protected by the Federal Confidentiality of Alcohol and Drug Abuse Patient Records regulations: The Federal rules restrict any use of the information to criminally investigate or prosecute any alcohol or drug abuse patient.[facility] HospitalIn the event this information is protected by the Federal Confidentiality of Alcohol and Drug Abuse Patient Records regulations: The Federal rules restrict any use of the information to criminally investigate or prosecute any alcohol or drug abuse patient.[facility] Reason for Visit (unrecogniz ed section [...] Dysfunction Specialty Diagnoses / Procedures Referred By Contgillian t Referred To Contact Urology Diagnoses Benign prostatic hyperplasia with urinary obstruction Erectile dysfunction, unspecified erectile dysfunction type Procedures CONSULT TO UROLOGY OFFICE/OUTPATIENT [facility] 60-74 MINUTES Vadim Deras MD [address] [place] [address] Referral ID Status Reason Start Date Expiration Date V isits Requested Visits Authorized [id number] Closed PCP Requested Referral 08/16/2022 08/16/2023 1 1 Reason Comments Eye Problem Pt reported (LT) eye irritation, onset AM denied pain, visual changes. Reason Comments Follow Up Erectile Dysfunction Overactive Bladder Reason Comments Consult Hernia repair Reason Comments Post Op Follow Up Hernia repair [place] Reason Onset Date Comments Refill Request 04/01/2023 Specialty Diagnoses / Procedures Referred By Contac t Referred To Contact NEUROSURGERY Diagnoses SAH (subarachnoid hemorrhage) (HCC) Procedures OFFICE/OUTPATIENT ESTABLISHED MOD [facility] 30 MIN Consult, test, treat Nicolás Junior MD [address] [facility] [place] [address] [place] [address] [address] [facility] [address] Referral ID Status Reason Start Date Expiration Date Visits Requested Visits Authorized [id number] Authorized OON/Self Pay Override 07/01/2023 06/30/2024 99 [...] Procedures CONSULT TO NEUROLOGY OFFICE/OUTPATIENT NEW HIGH [facility] 60 MINUTES Vadim Deras MD [address] [place] [address] Neur Adult Counts Include [address] [facility] [address] [place] [address] Referral ID Status Reason Start Date Expiration Date V isits Requested Visits Authorized [id number] Closed PCP Requested Referral 07/01/2023 06/30/2024 1 1 Reason Onset Date Comments Allied Health Visit 04/02/2024 Medication A dherence Outreach Specialty Diagnoses / Procedures Referred By Contac t Referred To Contact MR IMAGING Diagnoses Spinal stenosis of lumbar region without neurogenic claudication Procedures MRI LUMBAR SPINE WO IVCON MRI SPINAL CANAL LUMBAR W/O CONTRAST MATERIAL Bonifacio Ledbetter Jr., MD [address] [facility] [address] [place] [address] [place] [address] Referral ID Status Reason Start Date Expiration Date V isits Requested Visits Authorized [id number] Closed Auto-Generate d Referral 03/13/2024 04/12/2025 1 1 Reason Comments Patient Question Reason Comments Established Patient Follow up for MRI, p t at [facility] for therapy for spinal stenosis, pt fell in May 2024. Specialty Diagnoses / Procedures Referred By Julian aparicio Referred To Contact Neurology / NEUROLOGY Diagnoses Encounter for follow-up examination after completed treatment for conditions other than malignant neoplasm follow up after MRI, 03/13 [facility]- MRI *3 ordered (done) Procedures OFFICE/OUTPATIENT ESTABLISHED SF MDM 10 MIN OFFICE/OUTPATIENT ESTABLISHED LOW MDM 20 MIN OFFICE/OUTPATIENT ESTABLISHED MOD MDM 30 MIN OFFICE/OUTPATIENT ESTABLISHED HIGH MDM 40 MIN EST NI PATIENT Vadim Deras MD [address] [place] [address] Bonifacio Ledbetter Jr., MD [address] [place] [address] Referral ID Status Reason Start Date Expiration Date Visits Re quested Visits Authorized [id number] Closed 06/03/2024 06/30/2024 1 1 Reason Comments Forms Reason Comments Follow Up Specialty Diagnoses / Procedures Referred By Julian aparicio Referred To Contact Neurology / NEUROLOGY Diagnoses Unspecified abnormalities of gait and mobility est gait abn, BLE weakness, speech, ataxia, spinal stenosis, f/u 4-8 wks per [facility], 60 min slot, [facility] 06/26/24 Procedures OFFICE/OUTPATIENT ESTABLISHED HIGH MDM 40 MIN NEW GENERAL/SPECIALTY Vadim Deras MD [address] [place] [id number] Phone: tel: fax: Bonifacio Ledbetter Jr., MD [address] [place] [address] Phone: tel: fax: Referral ID Status Reason Start Date Expiration Date Visits Re quested Visits Authorized [id number] Closed 09/04/2024 06/30/2025 1 1 Reason Comments Patient Update Reason Comments Established Patient BPH, OAB Specialty Diagnoses / Procedures Referred By Julian aparicio Referred To Contact Urology Diagnoses Benign prostatic hyperplasia with urinary frequency Nocturia Procedures CONSULT TO UROLOGY OFFICE/OUTPATIENT [facility] 60 MINUTES Bonifacio Ledbetter Jr., MD [address] [place] [address] Phone: tel: fax: Referral ID Status Reason Start Date Expiration Date V isits Requested Visits Authorized [id number] Closed PCP Requested Referral 09/04/2024 09/04/2025 1 1 Care Teams (unrecognized sec tion and content) Manager Cardiovascular Relationship Specialty Start Date End Date Vadim Deras MD [address] [place] [phone] PCP - General Internal Medicine 07/23/16 Manager Cardiovascular Relationship Specialty Start Date End Date Vadim Deras MD [address] [place] [id number] PCP - General Internal Medicine 07/23/16 Manager Cardiovascular Relationship Specialty Start Date End Date Vadim Deras MD [address] [place] [id number] PCP - General Internal Medicine 07/23/16 Manager Cardiovascular Relationship Specialty Start Date End Date Vadim Deras MD [address] [place] [id number] PCP - General Internal Medicine 07/23/16 Manager Cardiovascular Relationship Specialty Start Date End Date Vadim Deras MD [address] [place] [id number] PCP - General Internal Medicine 07/23/16 Manager Cardiovascular Relationship Specialty Start Date End Date Vadim Deras MD [address] [place] [address] PCP - General Internal Medicine 07/23/16 Manager Cardiovascular Relationship Specialty Start Date End Date Vadim Deras MD [address] [place] [address] PCP - General Internal Medicine 07/23/16 Manager Cardiovascular Relationship Specialty Start Date End Date Vadim Deras MD [address] [place] [address] PCP - General Internal Medicine 07/23/16 Manager Cardiovascular Relationship Specialty Start Date End Date Vadim Deras MD [address] [place] [address] PCP - General Internal Medicine 07/23/16 Manager Cardiovascular Relationship Specialty Start Date End Date Vadim Deras MD [address] [place] [address] PCP - General Internal Medicine 07/23/16 Manager Cardiovascular Relationship Specialty Start Date End Date Vadim Deras MD [address] [place] [address] PCP - General Internal Medicine 07/23/16 Manager Cardiovascular Relationship Specialty Start Date End Date Vadim Deras MD [address] [place] [address] PCP - General Internal Medicine 07/23/16 Manager Cardiovascular Relationship Specialty Start Date End Date Vadim Deras MD [address] [place] [address] PCP - General Internal Medicine 07/23/16 Team [...] , Admit Provider, Attend ing Provider Active Manager Cardiovascular Relationship Specialty Start Date End Date Vadim Deras MD [address] [facility] [place] [address] PCP - General Internal Medicine 07/23/16 Manager Cardiovascular Relationship Specialty Start Date End Date Vadim Deras MD [address] [facility] [place] [address] PCP - General Internal Medicine 07/23/16 Manager Cardiovascular Relationship Specialty Start Date End Date Vadim Deras MD [address] [facility] [place] [address] PCP - General Internal Medicine 07/23/16 Manager Cardiovascular Relationship Specialty Start Date End Date Vadim Deras MD [address] [facility] [place] [address] PCP - General Internal Medicine 07/23/16 Team Status: Inactive Member Role Status Dates Dr. Vadim Deras MD Primary Care Provider Active [facility] Attending Provider Acti ve Team Status: [...] LITTLEJOHN MD Attending Provider, Referring Provider Active Manager Cardiovascular Relationship Specialty Start Date End Date Vadim Deras MD [address] [facility] [place] [address] PCP - General Internal Medicine 07/23/16 Manager Cardiovascular Relationship Specialty Start Date End Date Vadim Deras MD [address] [facility] [place] [address] PCP - General Internal Medicine 07/23/16 Manager Cardiovascular Relationship Specialty Start Date End Date Vadim Deras MD [address] [place] [address] PCP - General Internal Medicine 07/23/16 Manager Cardiovascular Relationship Specialty Start Date End Date Vadim Deras MD [address] [place] [address] PCP - General Internal Medicine 07/23/16 Manager Cardiovascular Relationship Specialty Start Date End Date Vadim Deras MD [address] [facility] [place] [address] PCP - General Internal Medicine 07/23/16 Manager Cardiovascular Relationship Specialty Start Date End Date Vadim Deras MD [address] [facility] [place] [address] PCP - General Internal Medicine 07/23/16 Manager Cardiovascular Relationship Specialty Start Date End Date Vadim Deras MD [address] [place] [address] PCP - General Internal Medicine 07/23/16 Manager Cardiovascular Relationship Specialty Start Date End Date Vadim Deras MD [address] [facility] [place] [address] PCP - General Internal Medicine 07/23/16 Manager Cardiovascular Relationship Specialty Start Date End Date Vadim Deras MD [address] [facility] [place] [address] PCP - General Internal Medicine 07/23/16 Manager Cardiovascular Relationship Specialty Start Date End Date Vadim Deras MD [address] [facility] [place] [address] PCP - General Internal Medicine 07/23/16 Manager Cardiovascular Relationship Specialty Start Date End Date Vadim Deras MD [address] [facility] [place] [address] PCP - General Internal Medicine 07/23/16 Manager Cardiovascular Relationship Specialty Start Date End Date Vadim Deras MD [address] [facility] [place] [address] PCP - General Internal Medicine 07/23/16 Manager Cardiovascular Relationship Specialty Start Date End Date Vadim Deras MD [address] [facility] [place] [address] PCP - General Internal Medicine 07/23/16 Delicia Kaye, SENIOR INTERNAL AUDITOR.CUSTODIAL ENGINEER [address] [facility] [place] [address] Carpentry Teacher Internal Medicine 06/08/24 Manager Cardiovascular Relationship Specialty Start Date End Date Vadim Deras MD [address] [facility] [place] [address] PCP - General Internal Medicine 07/23/16 Delicia Kaye, SENIOR INTERNAL AUDITOR.CUSTODIAL ENGINEER [address] [facility] [place] [address] Carpentry Teacher Internal Medicine 06/08/24 Manager Cardiovascular Relationship Specialty Start Date End Date Vadim Deras MD [address] [place] [address] PCP - General Internal Medicine 07/23/16 Delicia Kaye, SENIOR INTERNAL AUDITOR.CUSTODIAL ENGINEER [address] [place] [address] Carpentry Teacher Internal Medicine 06/08/24 Manager Cardiovascular Relationship Specialty Start Date End Date Vadim Deras MD [address] [place] [address] PCP - General Internal Medicine 07/23/16 Delicia Kaye, SENIOR INTERNAL AUDITOR.CUSTODIAL ENGINEER [address] [place] [address] Carpentry Teacher Internal Medicine 06/08/24 Manager Cardiovascular Relationship Specialty Start Date End Date Vadim Deras MD [address] [place] [address] PCP - General Internal Medicine 07/23/16 Delicia Kaye, SENIOR INTERNAL AUDITOR.CUSTODIAL ENGINEER [address] [place] [address] Carpentry Teacher Internal Medicine 06/08/24 Team Status: Active Member [...] BE BASED ON THE PRIMARY CLINICAL RECORDS. [employer] provides no warranty or guarantee of the accuracy or completeness of information in this document.
[2025-02-19 07:04] LABS: Hematocrit 36.7 % (40-54); Hemoglobin 12.3 g/dL (13.0-16.5); Immature Granulocytes Count 0.030 X10^3/uL (0.0-0.0); Mean Corp Hgb Conc 33.5 g/dL (32-36); Mean Corpuscular Volume 91.5 fL (80-94); Mean Platelet Vol. 12.4 fl (6.2-12.0); NRBC Flagged by Analyzer 0 % (0-5); POSITIVE COUNT YES; Platelet Count 94 K/mm3 (150-450); RBC Distribution Width CV 13.9 % (11.6-14.6); RBC Distribution Width SD 47.4 fl (35.1-43.9); Red Blood Count 4.01 M/mm3 (4.6-6.2); White Blood Count 4.2 K/mm3 (4.4-11.0)
[2025-02-19 07:39] LABS: Anion Gap 11 (5-15); BUN 19 mg/dL (4-19); BUN/Creat Ratio 19.7 RATIO (10-20); Calcium,Total 9.0 mg/dL (7.6-11.0); Carbon Dioxide 24.8 mmol/L (21.0-32.0); Chloride 104 mmol/L (98-108); Glucose 84 mg/dL (70-99); Potassium 3.9 mmol/L (3.3-5.1)
== END ==
LOC: OLS.SWAL 04:00
PROVIDERS: PCP Internal Medicine; Referring Provider Internal Medicine; Visit Provider Internal Medicine
DX: I10 Essential (primary) hypertension (principal); R41.82 Altered mental status, unspecified
CPT/HCPCS: 36415; 80048; 85025

== ENCOUNTER → 2025-02-21 | Outpatient (REF) | payer MEDICARE, MEDICAID, SELFPAY ==
[2025-02-22 07:34] LABS: Squamous Epithelial Cells - UA 0 SEEN /hpf (0-5)
[2025-02-22 08:23] LABS: Color, Urine Yellow (Yellow); Glucose, Dipstick Normal (Normal); Ketone-Dipstick 5 mg/dl (Negative); Leukocyte Esterase-Dipstick 25 /ul (Negative); Nitrite-Dipstick Negative (Negative); Occult Blood-Urine 10 /ul (Negative); Protein-Dipstick 100 mg/dl (Negative); Specific Gravity, Urine 1.020 (1.002-1.030); Urine Bilirubin Dipstick Negative (Negative)
[2025-02-22 08:32] LABS: Mucous, Urine 1+ /hpf (<or=2+); Red Blood Cells-Urine 0-5 SEEN /hpf (0-5)
[2025-02-22 08:33] LABS: Fine Granular Cast- Urine 0-5 SEEN /lpf (0-5)
== END ==
LOC: OLS.SWAL 10:30
PROVIDERS: PCP Internal Medicine; Referring Provider Internal Medicine; Visit Provider Internal Medicine
DX: I10 Essential (primary) hypertension (principal); R41.82 Altered mental status, unspecified
CPT/HCPCS: 81001; 87086; 87088

== ENCOUNTER → 2025-03-04 | Outpatient (REF) | payer MEDICARE, MEDICAID, SELFPAY ==
[2025-03-04 08:19] LABS: Color, Urine Yellow (Yellow); Glucose, Dipstick Normal (Normal); Ketone-Dipstick 5 mg/dl (Negative); Leukocyte Esterase-Dipstick Negative /ul (Negative); Mucous, Urine 0 SEEN /hpf (<or=2+); Nitrite-Dipstick Negative (Negative); Occult Blood-Urine 10 /ul (Negative); Protein-Dipstick 100 mg/dl (Negative); Specific Gravity, Urine 1.015 (1.002-1.030); Squamous Epithelial Cells - UA 0 SEEN /hpf (0-5); Urine Bilirubin Dipstick Negative (Negative)
[2025-03-04 09:12] LABS: Red Blood Cells-Urine 0-5 SEEN /hpf (0-5)
== END ==
LOC: OLS.SWAL 05:00
PROVIDERS: PCP Internal Medicine; Visit Provider Internal Medicine
DX: N39.0 Urinary tract infection, site not specified (principal)
CPT/HCPCS: 81001; 87086; 87088

== ENCOUNTER 2025-06-16 13:51 | Outpatient (RCR) | payer MEDICARE, MEDICAID, SELFPAY ==
--- NOTE | 2025-06-16 15:43 | HP.OTEVAL_ITS ---
Patient's Visit Information Visit Information Visit Information: DENIZ MCKEON is a 89 year old M, referred to Occupational Therapy by Charley Payne, RONNELL-C, with a diagnosis of nondisplaced fracture of shaft of fourth metacarpal bone L hand oblique. Date of Evaluation: 06/06/25 Occupational Therapist: Ale Guevara Subjective Subjective: This 89 year old male arrives to OT with dx of nondisplaced oblique fracture of shaft of fourth metacarpal bone L hand which occurred 05/11/25. Pt was initially placed in a fiberglass orthosis which was taken off today. Pt seen by VIDEO AND SOUND RECORDER Charley Payne this date and order placed for OT to fabricate custom ort hosis to allow gentle ROM twice daily. Pt is R hand dominant and is currently a resident of an [facility]. Today pt is present with sister who does serve as pt historian. Objective Objective/Observation: L hand swollen dry skin measurements not performed as pt seen in OT this date for fabrication of custom orthosis only -- pt needing to use restroom once orthosis complete --- per sister he will be doing OT at his [facility]. Rehabilitation General Assessment: This 89 year old male presents this date 5 weeks and 1 day from DOI with order for OT to fabricate custom orthosis for fourth metacarpal shaft oblique fracture. OT fabricated orthosis in safe position wrist included with ed and training on how to don and doff. Per sister present there plan is to have OT services at the [facility]. This OT did ed pt as well as sister present on importance of initiating gentle movement to hand to prevent stiffness full range allowed to thumb IF and MF. Rehabilitation Potential: Good Visit Plan TEXT: Thank you for the opportunity to evaluate your patient. For Medicare and Medicare HMO plans, please review the plan of care and approve it. It will need to be FAXED BACK to us at [phone] for Medicare purposes. Please let me know if there are questions or concerns regarding this plan of care. Physician Signature: Date:
--- NOTE | 2025-06-16 16:49 | HP.OT.NRP ---
Patient Information Patient Information: DENIZ MCKEON was seen in my office for initial evaluation on 06/06/25 for splint L hand D4 metacarpal oblique fracture. The following Plan of Care was established for this patient: Last Seen Last Seen: This patient was last seen in our office 06/16/25. Pertinent comments regarding their Occupational therapy will appear below: OT saw pt this date for fabrication of custom splint. eval only for splint as per pt and family pt will be following up with therapy in his [facility]. At this point I will be discontinuing this patient from occupational therapy. I would be happy to see this patient again in the future if found appropriate by the physician. Thank you! Ale Guevara
== END 2025-06-16 19:00 | disposition home or self-care (01) ==
LOC: OT 13:51
PROVIDERS: PCP Internal Medicine; Visit Provider Nurse Practitioner Family
DX: S62.355D Nondisplaced fracture of shaft of fourth metacarpal bone, left hand, subsequent encounter for fracture with routine healing (principal)
CPT/HCPCS: 97165; 97760